=== PATIENT | male | born 1940 | race Asian ===

== ENCOUNTER 2017-03-21 08:27 | Inpatient (IN) | payer MEDICARE, OTHER ==
[~2017-03-21] VITALS: Ht 162.6 cm; Wt 61.2 kg
[2017-03-21] VITALS (7 sets, daily range): BP systolic 99–142; BP diastolic 62–96
[~2017-03-21 08:27] MED LIST: ASCORBIC ACID500 MG ORAL; ASPIR 8181 MG ORAL; ATORVASTATIN CA20 MG ORAL; CALCIUM 500+D1 EACH PO; COLACE100 MG ORAL; DONEPEZIL HCL5 M2 ORAL; FLOMAX0.4 MG ORAL; FOSAMAX70 MG ORAL; LISINOPRIL5 MG ORAL; MULTI VITAMIN1 EACH ORAL; NAMENDA10 MG ORAL; NITROGLYCERIN0.4 MG SL; NORCO 5-325 TA1 EACH ORAL; NORVASC10 MG ORAL; TYLENOL325 MG ORAL
--- NOTE | 2017-03-21 08:34 | Emergency Room Report ---
History of Present Illness General Chief Complaint: General Complaint Source: Medical Record, EMS Present Illness HPI Patient presents with decreased oral intake. He is unable to give any history to us. [facility] stays [facility] facility. Uncertain how long this has been going on. EMS denies that there is any history of fevers. The patient's had a stroke in the past. According to the medical record he has dysphagia. Admitted 01/29-02/02 DX 1. Acute encephalopathy 2/2 to sepsis 2. UTI (resolved) 3. HAP vs bronchitis (resolved) 4. Hypertension. 5. Advanced Dementia. 6. Benign prostatic hypertrophy. 7. History of falls. 8. Hx of Ventriculomegaly, possible hydrocephalus. 9. Dehydration. 10. Dyslipidemia 11. Osteoporosis 12. Hypophosphatemia 13. Chronic kidney disease 2 Allergies: Coded Allergies: No Known Allergies (Unverified , 04/30/12) Patient History Limited by: medical condition Past Medical History: see triage record, old chart reviewed Social History Narrative snf Reviewed Nursing Documentation: PMH: Agreed, PSxH: Agreed Nursing Documentation-PMH Hx Cardiac Problems: Yes Hx Hypertension: Yes Hx Pacemaker: No Hx Asthma: No Hx COPD: No Hx Diabetes: Yes Hx Cancer: No Hx Gastrointestinal Problems: Yes - DYSPHAGIA Hx Dialysis: No Hx Neurological Problems: Yes Hx Cerebrovascular Accident: Yes - dysphagia Hx Dementia: Yes Hx Alzheimer's Disease: Yes Hx Seizures: No Hx Weakness: Yes Review of Systems All Other Systems: limited Physical Exam Vital Signs Date Time Temp Pulse Resp B/P Pulse Ox O2 Delivery O2 Flow Rate FiO2 03/21/17 08:18 96.3 85 18 129/76 97 Room Air Sp02 EP Interpretation: reviewed, normal General Appearance: no apparent distress, cachetic, thin, Chronically Ill Head: normocephalic Eyes: bilateral eye PERRL, bilateral eye normal inspection ENT: dry mucus membranes Neck: supple Respiratory: lungs clear, normal breath sounds Cardiovascular #1: regular rate, rhythm Cardiovascular #2: 2+ radial (R) Gastrointestinal: normal inspection, normal bowel sounds, non tender, no mass, non-distended, other - slaps away examiner examining abdomen Musculoskeletal: back normal, gait/station normal, normal range of motion Neurologic: responsive, motor weakness Psychiatric: depressed affect Skin: normal inspection, warm/dry Medical Decision Making Diagnostic Impression: Primary Impression: Failure to thrive Qualified Codes: R62.7 - Adult failure to thrive Additional Impressions: Hypernatremia Hyperkalemia Renal insufficiency ER Course Patient presents with decreased by mouth intake. There several different possible etiologies for this. There is a history of dysphagia. Also need to exclude cardiac cause including heart attack. In addition there could be occult infection. Finally needed to be psychiatric issues of depression. Evaluation will be with EKG, laboratory, CT of the head, chest x-ray and abdominal films. The patient will receive IV hydration. EKG - no acute changes. CXR - chronic disease. Labs with hypernatremia, hyperkalemia, renal insufficiency. Potassium treated. Complicated patient. Needs further treatment in hospital. Admit med, Dr. Hodges. Laboratory Tests Test 03/21/17 08:45 03/21/17 09:50 03/21/17 10:46 03/21/17 12:45 White Blood Count 11.0 K/UL (4.8-10.8) H Red Blood Count 5.43 M/UL (4.70-6.10) Hemoglobin 15.7 G/DL (14.2-18.0) Hematocrit 51.7 % (42.0-52.0) Mean Corpuscular Volume 95 FL (80-99) Mean Corpuscular Hemoglobin 29.0 PG (27.0-31.0) Mean Corpuscular Hemoglobin Concent 30.4 G/DL (32.0-36.0) L Red Cell Distribution Width 13.6 % (11.6-14.8) Platelet Count 212 K/UL (150-450) Mean Platelet Volume 10.7 FL (6.5-10.1) H Neutrophils (%) (Auto) 59.9 % (45.0-75.0) Lymphocytes (%) (Auto) 30.2 % (20.0-45.0) Monocytes (%) (Auto) 6.8 % (1.0-10.0) Eosinophils (%) (Auto) 2.2 % (0.0-3.0) Basophils (%) (Auto) 0.9 % (0.0-2.0) Prothrombin Time 10.0 SEC (9.30-11.50) Prothrombin Time INR 1.0 (0.9-1.1) PTT 25 SEC (23-33) Sodium Level 159 mEQ/L (135-145) H 162 mEQ/L (135-145) *H Potassium Level 5.5 mEQ/L (3.4-4.9) H 4.7 mEQ/L (3.4-4.9) Chloride Level 121 mEQ/L (98-107) H 124 mEQ/L (98-107) H Carbon Dioxide Level 25 mEQ/L (20-30) 24 mEQ/L (20-30) Anion Gap 13 (5-15) 14 (5-15) Blood Urea Nitrogen 53 mg/dL (7-23) H 50 mg/dL (7-23) H Creatinine 1.6 mg/dL (0.7-1.2) H 1.5 mg/dL (0.7-1.2) H Estimate Glomerular Filtration Rate mL/min (>60) mL/min (>60) Glucose Level 120 mg/dL (74-106) H 124 mg/dL (74-106) H Calcium Level 11.0 mg/dL (8.6-10.2) H 11.1 mg/dL (8.6-10.2) H Total Bilirubin 0.4 mg/dL (0.0-1.2) 0.2 mg/dL (0.0-1.2) Aspartate Amino Transferase (AST) 18 U/L (5-40) 11 U/L (5-40) Alanine Aminotransferase (ALT) 24 U/L (3-41) 21 U/L (3-41) Alkaline Phosphatase 124 U/L (40-129) 120 U/L (40-129) Total Creatine Kinase 66 U/L (38-174) 57 U/L (38-174) Troponin I < 0.30 ng/mL (<=0.30) Pro-B-Type Natriuretic Peptide 39 pg/mL (0-125) Total Protein 8.3 g/dL (6.6-8.7) 7.8 g/dL (6.6-8.7) Albumin 3.6 g/dL (3.5-5.2) 3.5 g/dL (3.5-5.2) Globulin 4.7 g/dL 4.3 g/dL Albumin/Globulin Ratio 0.7 (1.0-2.7) L 0.8 (1.0-2.7) L Lipase 94 U/L (< 60) H Salicylates Level < 1 mg/dL (10-30) L Acetaminophen Level < 10 ug/mL (10-30) L Serum Alcohol < 10 mg/dL Urine Color Pale yellow Urine Appearance Turbid Urine pH 5 (4.5-8.0) Urine Specific [place] 1.020 (1.005-1.035) Urine Protein 3+ (NEGATIVE) H Urine Glucose (UA) Negative (NEGATIVE) Urine Ketones Negative (NEGATIVE) Urine Occult Blood 4+ (NEGATIVE) H Urine Nitrite Positive (NEGATIVE) H Urine Bilirubin Negative (NEGATIVE) Urine Urobilinogen Normal MG/DL (0.0-1.0) Urine Leukocyte Esterase 3+ (NEGATIVE) H Urine RBC 15-20 /HPF (0 - 0) H Urine WBC Tntc /HPF (0 - 0) H Urine Squamous Epithelial Cells Occasional /LPF Urine Bacteria Moderate /HPF (NONE) H Urine Mucus Few /LPF (NONE/OCC) H Urine Opiates Screen Negative (NEGATIVE) Urine Barbiturates Screen Negative (NEGATIVE) Phencyclidine (PCP) Screen Negative (NEGATIVE) Urine Amphetamines Screen Negative (NEGATIVE) Urine Benzodiazepines Screen Negative (NEGATIVE) Urine Cocaine Screen Negative (NEGATIVE) Urine Marijuana (THC) Screen Negative (NEGATIVE) Urine Osmolality Pending Plasma/Serum Osmolality Pending Free Triiodothyronine Pending Uric Acid 11.1 mg/dL (3.0-7.5) H Phosphorus Level 3.9 mg/dL (2.5-4.8) Magnesium Level 2.1 mg/dL (1.7-2.5) Free Thyroxine 1.40 ng/dL (0.86-1.85) Cortisol 25.7 ug/dL EKG Diagnostic Results Rate: normal Rhythm: NSR ST Segments: no acute changes Rhythm Strip Diag. Results EP Interpretation: yes Rhythm: NSR, no PVC's, no ectopy Chest X-Ray Diagnostic Results Chest X-Ray Diagnostic Results : Chest X-Ray Ordered: Yes # of Views/Limited/Complete: 1 View Indication: Other EP Interpretation: Yes Interpretation: no consolidation, no effusion, no pneumothorax, other - L shoulder and old scarring Impression: No acute disease Interpreting ER Provider: Electronically signed by Aaron Kumar MD Other X-Ray Diagnostic Results Other X-Ray Diagnostic Results : X-Ray ordered: abd # of Views/Limited Vs Complete: 1 View Indication: Other EP Interpretation: Yes Interpretation: nonspecific bowel gas, no sbo, other - no masses Interpreting ER Provider: Electronically signed by Aaron Kumar MD CT/MRI/US Diagnostic Results CT/MRI/US Diagnostic Results : Imaging Test Ordered: head Impression large ventricles Last Vital Signs Date Time Temp Pulse Resp B/P Pulse Ox O2 Delivery O2 Flow Rate FiO2 03/21/17 16:01 97.2 58 18 142/96 96 Room Air Status: improved Disposition: ADMITTED INPATIENT Condition: Serious Aaron Kumar M.D. Mar 21, 2017 08:33
[2017-03-21] MEDS ORDERED: CRANBERRY450 M3 PO (08:45)
[2017-03-21] MEDS ORDERED: GERI-TUSSI100 MG/5 M PO (08:45)
--- NOTE | 2017-03-21 09:07 | Diagnostic Imaging Report ---
Indication: Dyspnea Comparison: 01/28/15 A single view chest radiograph was obtained. Findings: Lungs are clear. Bones are osteopenic. Heart size is normal. There is a right shoulder prosthesis. Impression: No acute cardiopulmonary disease
--- NOTE | 2017-03-21 09:17 | Diagnostic Imaging Report ---
Indication: Altered level of consciousness Technique: Contiguous 5 mm thick transaxial imaging of the head obtained in a Siemens Sensation [address] scanner. Soft tissue and bone windows generated. Total Dose length Product (DLP): [address] Dose Index Volume (CTDIvol): 70.38 mGy Comparison: 12/17/13 Findings: The ventricles are disproportionately large compared to the degree of atrophy present which is mild. Findings appear unchanged from the last study. There is no mass effect or edema identified. There is no midline shift or evidence of acute intracranial hemorrhage. Osseous structures appear unremarkable. The paranasal sinuses and mastoids are clear. Impression: Disproportionate ventriculomegaly. Possibility of normal pressure hydrocephalus may be considered. Recommend clinical workup. No interval change The CT scanner at [facility] is accredited by the [employer] and the scans are performed using dose optimization techniques as appropriate to a performed exam including Automatic Exposure control.
[2017-03-21 09:19] LABS: BASOPHILS % (AUTO) 0.9 % (0.0-2.0); EOSINOPHILS % (AUTO) 2.2 % (0.0-3.0); LYMPHOCYTES % (AUTO) 30.2 % (20.0-45.0); MEAN CORPUSCULAR HGB CONC 30.4 G/DL (32.0-36.0); MEAN CORPUSCULAR VOLUME 95 FL (80-99); MEAN PLATELET VOLUME 10.7 FL (6.5-10.1); MONOCYTES % (AUTO) 6.8 % (1.0-10.0); NEUTROPHILS % (AUTO) 59.9 % (45.0-75.0); PLATELET COUNT 212 K/UL (150-450); RED BLOOD COUNT 5.43 M/UL (4.70-6.10); RED CELL DISTRIBUTION WIDTH 13.6 % (11.6-14.8)
[2017-03-21 09:24] LABS: ACETAMINOPHEN < 10 ug/mL (10-30); ALANINE AMINOTRANSFERASE 24 U/L (3-41); ALBUMIN/GLOBULIN RATIO 0.7 (1.0-2.7); ALCOHOL < 10 mg/dL; ANION GAP 13 (5-15); ASPARTATE AMINO TRANSFERASE 18 U/L (5-40); CARBON DIOXIDE 25 mEQ/L (20-30); CHLORIDE 121 mEQ/L (98-107); CREATININE 1.6 mg/dL (0.7-1.2); HEMOLYSIS 81; LIPASE 94 U/L (< 60); POTASSIUM 5.5 mEQ/L (3.4-4.9); SODIUM 159 mEQ/L (135-145); TOTAL PROTEIN 8.3 g/dL (6.6-8.7)
[2017-03-21 09:25] LABS: TROPONIN I < 0.30 ng/mL (<=0.30)
--- NOTE | 2017-03-21 09:29 | Diagnostic Imaging Report ---
Indication: Abdominal pain Comparison: None Single view of the abdomen obtained Findings: Bowel gas pattern is nonspecific. No mass, ectopic calcifications, or abnormal gas collections are identified. The bones are osteopenic. There is narrowing of intervertebral discs and accompanying endplate osteophyte formation. Hypertrophied facet joints also demonstrated. Impression: No acute findings
[2017-03-21] MEDS ORDERED: Sodium Polystyrene Sulfonate 15gm Powder RECTAL ONE (10:15)
[2017-03-21] MEDS ORDERED: Calcium Gluconate 1gm/10ml vial IVP ONE (10:15)
[2017-03-21 10:21] LABS: APPEARANCE,URINE TURBID; KETONES,URINE NEGATIVE (NEGATIVE); LEUKOCYTE ESTERASE ,URINE 3+ (NEGATIVE); NITRITE,URINE POSITIVE (NEGATIVE); PH,URINE 5 (4.5-8.0); PROTEIN,URINE 3+ (NEGATIVE); UROBILINOGEN,URINE NORMAL MG/DL (0.0-1.0)
[2017-03-21] MEDS ORDERED: Acetaminophen 650 MG SUPP RECTAL ONE (10:30)
[2017-03-21 10:57] LABS: RBC,URINE 15-20 /HPF (0 - 0); WBC,URINE TNTC /HPF (0 - 0)
[2017-03-21 10:58] LABS: BACTERIA,URINE MODERATE /HPF; MUCUS,URINE FEW /LPF (NONE/OCC); SQUAMOUS EPITHELIAL CELL,UR OCCASIONAL /LPF (NONE/OCC)
[2017-03-21] MEDS ORDERED: Morphine Sulfate 2mg/ml Inj IVP PRN (11:00)
[2017-03-21] MEDS ORDERED: cefTRIAXone 1 GM in NS 55 ML IVPB ONE (11:00)
[2017-03-21] MEDS ORDERED: LORazepam Inj 2mg/ml 1ml IV PRN (11:00)
[2017-03-21] MEDS ORDERED: Mylanta II UD 30ml ORAL PRN (11:00)
[2017-03-21 13:29] LABS: ALANINE AMINOTRANSFERASE 21 U/L (3-41); ALBUMIN/GLOBULIN RATIO 0.8 (1.0-2.7); ANION GAP 14 (5-15); ASPARTATE AMINO TRANSFERASE 11 U/L (5-40); CALCIUM 11.1 mg/dL (8.6-10.2); CARBON DIOXIDE 24 mEQ/L (20-30); CHLORIDE 124 mEQ/L (98-107); CREATININE 1.5 mg/dL (0.7-1.2); HEMOLYSIS 5; MAGNESIUM 2.1 mg/dL (1.7-2.5); PHOSPHORUS 3.9 mg/dL (2.5-4.8); POTASSIUM 4.7 mEQ/L (3.4-4.9); TOTAL PROTEIN 7.8 g/dL (6.6-8.7); URIC ACID 11.1 mg/dL (3.0-7.5)
[2017-03-21 13:30] LABS: SODIUM 162 mEQ/L (135-145)
[2017-03-21 13:41] LABS: CORTISOL 25.7 ug/dL
--- NOTE | 2017-03-21 13:52 | Consultation ---
History of Present Illness General Date patient seen: Mar 21, 2017 Chief Complaint: General Complaint Referring physician: dr Groves Reason for Consultation: INpatient management Present Illness HPI 76 year old patient wtih hx of CAD, CVA, Dementia presented with decreased oral intake. He is unable to give any history . Pt was diagnosed to have sepsis and UTI and admitted for further evaluation. Allergies: Coded Allergies: No Known Allergies (Unverified , 04/30/12) Medication History Scheduled Alendronate Sodium* (Fosamax*), 70 MG ORAL ONCE A WEEK, (Reported) Amlodipine Besylate (Norvasc), 5 MG ORAL DAILY, (Reported) Aspirin* (Aspir 81*), 81 MG ORAL DAILY, (Reported) Atorvastatin Calcium* (Atorvastatin Calcium*), 10 MG ORAL BEDTIME, (Reported) Cranberry Fruit Concentrate (Cranberry), 450 MG PO BID, (Reported) Docusate Sodium* (Colace*), 200 MG ORAL DAILY, (Reported) Donepezil Hcl* (Donepezil Hcl*), 5 MG ORAL DAILY, (Reported) Lisinopril (Lisinopril*), 5 MG ORAL DAILY, (Reported) Multivitamin (Multi Vitamin Daily), 1 TAB ORAL DAILY, (Reported) Tamsulosin HCl (Flomax), 0.4 MG ORAL DAILY, (Reported) Scheduled PRN Acetaminophen (Tylenol), 650 MG ORAL Q6H PRN for Fever/Headache/Mild Pain, ( Reported) Guaifenesin (Sabra-Tussin), 15 ML PO EVERY 8 HOURS PRN for For Cough, (Reported) Nitroglycerin (Nitroglycerin), 0.4 MG SL NEEDED PRN for For Pain, (Reported) Miscellaneous Medications Calcium Carbonate/Vitamin D3 (Calcium 500+D Tablet Chew), 1 EACH PO, (Reported) Discontinued Medications Ascorbic Acid* (Ascorbic Acid*), 500 MG ORAL DAILY, (Reported) Discontinued Reason: MD discontinued med Hydrocodone Bit/Acetaminophen 5-325* ([place]an[place]illity 5-325*), Unknown Dose ORAL Q4H PRN for For Pain, (Reported) Discontinued Reason: MD discontinued med Patient History Healthcare decision maker Resuscitation status Advanced Directive on File Past Medical/Surgical History Past Medical/Surgical History: (1) Alzheimer's dementia (2) HTN (hypertension) Review of Systems Constitutional: Reports: no symptoms All Other Systems: negative except mentioned in HPI Physical Exam General Appearance: WD/WN, no apparent distress Lines, tubes and drains: peripheral HEENT: normocephalic, atraumatic Neck: non-tender, normal alignment Respiratory/Chest: chest wall non-tender, lungs clear Cardiovascular/Chest: normal peripheral pulses Abdomen: normal bowel sounds, non tender Genitourinary/Rectal: normal genital exam Extremities: normal range of motion Skin Exam: normal pigmentation Last 24 Hour Vital Signs Date Time Temp Pulse Resp B/P Pulse Ox O2 Delivery O2 Flow Rate FiO2 03/21/17 13:06 95.9 81 18 99/66 100 Room Air 03/21/17 10:56 96.5 79 16 129/74 99 Room Air 03/21/17 10:45 79 16 129/74 99 Room Air 03/21/17 09:57 96.5 89 14 121/62 99 Room Air 03/21/17 08:27 97.7 86 16 126/77 98 Room Air 03/21/17 08:18 96.3 85 18 129/76 97 Room Air Laboratory Tests Test 03/21/17 08:45 03/21/17 09:50 03/21/17 10:46 03/21/17 12:45 White Blood Count 11.0 K/UL (4.8-10.8) H Red Blood Count 5.43 M/UL (4.70-6.10) Hemoglobin 15.7 G/DL (14.2-18.0) Hematocrit 51.7 % (42.0-52.0) Mean Corpuscular Volume 95 FL (80-99) Mean Corpuscular Hemoglobin 29.0 PG (27.0-31.0) Mean Corpuscular Hemoglobin Concent 30.4 G/DL (32.0-36.0) L Red Cell Distribution Width 13.6 % (11.6-14.8) Platelet Count 212 K/UL (150-450) Mean Platelet Volume 10.7 FL (6.5-10.1) H Neutrophils (%) (Auto) 59.9 % (45.0-75.0) Lymphocytes (%) (Auto) 30.2 % (20.0-45.0) Monocytes (%) (Auto) 6.8 % (1.0-10.0) Eosinophils (%) (Auto) 2.2 % (0.0-3.0) Basophils (%) (Auto) 0.9 % (0.0-2.0) Prothrombin Time 10.0 SEC (9.30-11.50) Prothromb Time International Ratio 1.0 (0.9-1.1) Activated Partial Thromboplast Time 25 SEC (23-33) Sodium Level 159 mEQ/L (135-145) H 162 mEQ/L (135-145) *H Potassium Level 5.5 mEQ/L (3.4-4.9) H 4.7 mEQ/L (3.4-4.9) Chloride Level 121 mEQ/L (98-107) H 124 mEQ/L (98-107) H Carbon Dioxide Level 25 mEQ/L (20-30) 24 mEQ/L (20-30) Anion Gap 13 (5-15) 14 (5-15) Blood Urea Nitrogen 53 mg/dL (7-23) H 50 mg/dL (7-23) H Creatinine 1.6 mg/dL (0.7-1.2) H 1.5 mg/dL (0.7-1.2) H Estimat Glomerular Filtration Rate mL/min (>60) mL/min (>60) Glucose Level 120 mg/dL (74-106) H 124 mg/dL (74-106) H Calcium Level 11.0 mg/dL (8.6-10.2) H 11.1 mg/dL (8.6-10.2) H Total Bilirubin 0.4 mg/dL (0.0-1.2) 0.2 mg/dL (0.0-1.2) Aspartate Amino Transf (AST/SGOT) 18 U/L (5-40) 11 U/L (5-40) Alanine Aminotransferase (ALT/SGPT) 24 U/L (3-41) 21 U/L (3-41) Alkaline Phosphatase 124 U/L (40-129) 120 U/L (40-129) Total Creatine Kinase 66 U/L (38-174) 57 U/L (38-174) Troponin I < 0.30 ng/mL (<=0.30) Pro-B-Type Natriuretic Peptide 39 pg/mL (0-125) Total Protein 8.3 g/dL (6.6-8.7) 7.8 g/dL (6.6-8.7) Albumin 3.6 g/dL (3.5-5.2) 3.5 g/dL (3.5-5.2) Globulin 4.7 g/dL 4.3 g/dL Albumin/Globulin Ratio 0.7 (1.0-2.7) L 0.8 (1.0-2.7) L Lipase 94 U/L (< 60) H Salicylates Level < 1 mg/dL (10-30) L Acetaminophen Level < 10 ug/mL (10-30) L Serum Alcohol < 10 mg/dL Urine Color Pale yellow Urine Appearance Turbid Urine pH 5 (4.5-8.0) Urine Specific [place] 1.020 (1.005-1.035) Urine Protein 3+ (NEGATIVE) H Urine Glucose (UA) Negative (NEGATIVE) Urine Ketones Negative (NEGATIVE) Urine Occult Blood 4+ (NEGATIVE) H Urine Nitrite Positive (NEGATIVE) H Urine Bilirubin Negative (NEGATIVE) Urine Urobilinogen Normal MG/DL (0.0-1.0) Urine Leukocyte Esterase 3+ (NEGATIVE) H Urine RBC 15-20 /HPF (0 - 0) H Urine WBC Tntc /HPF (0 - 0) H Urine Squamous Epithelial Cells Occasional /LPF Urine Bacteria Moderate /HPF (NONE) H Urine Mucus Few /LPF (NONE/OCC) H Urine Opiates Screen Negative (NEGATIVE) Urine Barbiturates Screen Negative (NEGATIVE) Phencyclidine (PCP) Screen Negative (NEGATIVE) Urine Amphetamines Screen Negative (NEGATIVE) Urine Benzodiazepines Screen Negative (NEGATIVE) Urine Cocaine Screen Negative (NEGATIVE) Urine Marijuana (THC) Screen Negative (NEGATIVE) Plasma/Serum Osmolality Pending Free Triiodothyronine Pending Uric Acid 11.1 mg/dL (3.0-7.5) H Phosphorus Level 3.9 mg/dL (2.5-4.8) Magnesium Level 2.1 mg/dL (1.7-2.5) Free Thyroxine 1.40 ng/dL (0.86-1.85) Cortisol 25.7 ug/dL Height (Feet): 5 Height (Inches): 4.00 Weight (Pounds): 135 Medications Current Medications Medications (Trade) Dose Ordered Sig/Ankush Route PRN Reason Start Time Stop Time Status Last Admin Dose Admin Acetaminophen (Tylenol) 650 mg Q4H PRN ORAL fever>100.5 03/21/17 11:00 04/20/17 10:59 Al Hydroxide/Mg Hydroxide (Mylanta II) 30 ml Q6H PRN ORAL dyspepsia 03/21/17 11:00 04/20/17 10:59 Amlodipine Besylate (Norvasc) 5 mg DAILY ORAL 03/22/17 09:00 04/21/17 08:59 Clonidine HCl (Catapres) 0.1 mg Q4H PRN ORAL SBP>160 03/21/17 11:00 04/20/17 10:59 Dextrose (Dextrose 50%) STAT PRN IV Hypoglycemia 03/21/17 11:00 04/20/17 10:59 Donepezil HCl (Aricept) 5 mg DAILY ORAL 03/22/17 09:00 04/21/17 08:59 Heparin Sodium (Porcine) (Heparin 5000 units/ml) 5,000 units EVERY 12 HOURS SUBQ 03/21/17 21:00 04/20/17 20:59 Lorazepam (Ativan 2mg/ml 1ml) 0.5 mg Q4H PRN IV For Anxiety 03/21/17 11:00 03/28/17 10:59 Morphine Sulfate (Morphine Sulfate) 1 mg Q4H PRN IVP For Pain 03/21/17 11:00 03/28/17 10:59 Ondansetron HCl (Zofran) 4 mg Q6H PRN IVP Nausea & Vomiting 03/21/17 11:00 04/20/17 10:59 Polyethylene Glycol (Miralax) 17 gm HSPRN PRN ORAL Constipation 03/21/17 21:00 04/20/17 20:59 Tamsulosin HCl (Flomax) 0.4 mg DAILY ORAL 03/22/17 09:00 04/21/17 08:59 Zolpidem Tartrate (Ambien) 5 mg HSPRN PRN ORAL Insomnia 03/21/17 21:00 04/20/17 20:59 Assessment/Plan Problem List: (1) Sepsis ICD Codes: A41.9 - Sepsis, unspecified organism SNOMED: 74826229 (2) UTI (urinary tract infection) ICD Codes: N39.0 - Urinary tract infection, site not specified SNOMED: 88957593 (3) Acute encephalopathy ICD Codes: G93.40 - Encephalopathy, unspecified SNOMED: 4099540 (4) HTN (hypertension) ICD Codes: I10 - Essential (primary) hypertension SNOMED: 76804261 (5) BPH (benign prostatic hyperplasia) ICD Codes: N40.0 - Benign prostatic hyperplasia without lower urinary tract symptoms SNOMED: 064465547, 682552247 (6) Alzheimer's dementia ICD Codes: G30.9 - Alzheimer's disease, unspecified SNOMED: 52997403 Assessment/Plan IV fulids ovalle culture broad spectrum antibiotics swallow study check labs renal studies dvt prophylaxis MIKIE BAEZ Mar 21, 2017 13:52
--- NOTE | 2017-03-21 20:30 | History and Physical Report ---
DATE OF ADMISSION: 03/21/2017 CHIEF COMPLAINT: The patient is a 76-year-old male, who presents with chief complaint of altered mental status. HISTORY OF PRESENT ILLNESS: The patient is a resident of [facility]. According to staff at [facility], the patient has had decreased oral intake. The patient himself is unable to contribute much of the history and physical. Much of the history and physical is obtained from the patient's chart. The patient presented to [facility]. He was found to have urinary tract infection. The patient is admitted for altered mental status, failure to thrive, and urinary tract infection. PAST MEDICAL HISTORY: Significant for, 1. Hypertension. 2. Benign prostatic hypertrophy. 3. Osteoporosis. 4. Ventriculomegaly. 5. Alzheimer's dementia. PAST SURGICAL HISTORY: Significant for right shoulder surgery. CURRENT MEDICATIONS: From [facility], 1. Aspirin 81 mg one tablet p.o. daily. 2. Norvasc 5 mg one tablet p.o. daily. 3. Aricept 5 mg one tablet p.o. at bedtime. 4. Lisinopril 5 mg one tablet p.o. daily. 5. Nitroglycerin 0.4 mg sublingual p.r.n. 6. Flomax 0.4 mg p.o. daily. ALLERGIES: No known drug allergies. SOCIAL HISTORY: The patient is resident of [facility]. The patient has a grown child, Ifrah Guerra. REVIEW OF SYSTEMS: Unable to assess, secondary to patient's mental status. PHYSICAL EXAMINATION: VITAL SIGNS: Temperature 97.7 degrees, respirations 16, pulse 86, and blood pressure is 126/77. GENERAL: The patient is well-developed, well-nourished, thin appearing, male, in no apparent distress. HEENT: Eyes, pupils are equal and responsive to light and accommodation. Extraocular movements are intact. NECK: Supple without lymphadenopathy. CHEST: Lungs are clear to auscultation bilaterally without wheezes or rales. CARDIOVASCULAR: Regular rhythm and rate. S1 and S2 are normal without murmurs, rubs, or gallops. ABDOMEN: Soft, nontender, and nondistended. Positive bowel sounds. No hepatosplenomegaly. Currently, no rebound or guarding noted. EXTREMITIES: No clubbing, cyanosis, or edema. RECTAL: Refused. GENITAL: Refused. NEUROLOGIC: Cranial nerves II through XII are grossly intact without focal deficits. LABORATORY STUDIES: WBC 11.0, hemoglobin 15.5, hematocrit 51.7, and platelets 212,000. Sodium 159, potassium 5.5, chloride 121, CO2 25, BUN 53, creatinine 1.6, and glucose 120. Urinalysis showed 3+ protein, 4+ occult blood, positive nitrites, and WBC too numerous to count. ASSESSMENT: This is a 76-year-old male. 1. Failure to thrive. 2. Altered mental status. 3. Urinary tract infection. 4. Hypernatremia. 5. Hypertension. 6. Benign prostatic hypertrophy. 7. Osteoporosis. 8. Alzheimer's dementia. 9. Ventriculomegaly. TREATMENT: 1. Failure to thrive. This may be secondary to urinary tract infection. The patient is currently receiving intravenous fluids. 2. Altered mental status. This is probably secondary to urinary tract infection below. 3. Urinary tract infection. A urine culture is pending. The patient has been started empirically on ceftriaxone. The urine culture and sensitivity is pending at this time. 4. Hypernatremia. This may be secondary to dehydration. The patient is currently receiving D5 W. We will follow BMP carefully daily. 5. Hypertension. The patient is currently hypotensive. We will hold antihypertensive medications as above. 6. Benign prostatic hypertrophy. Continue Flomax as above. 7. Osteoporosis. 8. Alzheimer's dementia. Continue Namenda as above. 9. Ventriculomegaly. This may be secondary to normal pressure hydrocephalus. Dano Groves M.D. DR: KATI JOB#: [id number] CC:
[2017-03-21] MEDS: Heparin 5000 units/ml inj SUBQ SCH (20:35)
[2017-03-21] MEDS ORDERED: Miralax 17gm pkt ORAL PRN (21:00)
[2017-03-21] MEDS ORDERED: Zolpidem 5mg tab ORAL PRN (21:00)
[2017-03-22 04:00] VITALS: BP 144/86
[2017-03-22 07:09] LABS: BASOPHILS % (AUTO) 0.9 % (0.0-2.0); EOSINOPHILS % (AUTO) 2.6 % (0.0-3.0); LYMPHOCYTES % (AUTO) 34.4 % (20.0-45.0); MEAN CORPUSCULAR HEMOGLOBIN 29.9 PG (27.0-31.0); MEAN CORPUSCULAR HGB CONC 31.6 G/DL (32.0-36.0); MEAN CORPUSCULAR VOLUME 95 FL (80-99); MEAN PLATELET VOLUME 10.5 FL (6.5-10.1); MONOCYTES % (AUTO) 7.9 % (1.0-10.0); NEUTROPHILS % (AUTO) 54.2 % (45.0-75.0); PLATELET COUNT 185 K/UL (150-450); RED BLOOD COUNT 4.79 M/UL (4.70-6.10); RED CELL DISTRIBUTION WIDTH 13.3 % (11.6-14.8); WHITE BLOOD COUNT 9.6 K/UL (4.8-10.8)
[2017-03-22 07:13] LABS: ALANINE AMINOTRANSFERASE 17 U/L (3-41); ALBUMIN/GLOBULIN RATIO 0.8 (1.0-2.7); ANION GAP 11 (5-15); ASPARTATE AMINO TRANSFERASE 12 U/L (5-40); CALCIUM 10.2 mg/dL (8.6-10.2); CARBON DIOXIDE 27 mEQ/L (20-30); CHLORIDE 117 mEQ/L (98-107); CHOLESTEROL 169 mg/dL (< 200); CHOLESTEROL/HDL RATIO 3.8 (3.3-4.4); CREATININE 1.4 mg/dL (0.7-1.2); HEMOLYSIS 3; LDL CHOLESTEROL (CALC.) 80 mg/dL (60-99); POTASSIUM 4.2 mEQ/L (3.4-4.9); SODIUM 155 mEQ/L (135-145); TOTAL PROTEIN 7.4 g/dL (6.6-8.7)
[2017-03-22 07:47] LABS: HEMOGLOBIN A1C 6.2 % (< 6.0)
[2017-03-22 08:20] LABS: FREE TRIIODOTHYRONINE 2.1 pg/mL (2.0-4.4)
[2017-03-22 08:22] VITALS: BP 142/82
[2017-03-22] MEDS ORDERED: Donepezil 5mg Tab ORAL SCH (09:00)
[2017-03-22] MEDS: Tamsulosin 0.4mg cap ORAL SCH (10:04)
[2017-03-22] MEDS: Heparin 5000 units/ml inj SUBQ SCH ×2 (10:06→21:02)
--- NOTE | 2017-03-22 10:31 | Diagnostic Imaging Report ---
Indication: Abnormal renal function tests Technique: Grayscale and duplex images of the kidneys, retroperitoneum, and bladder were obtained. Comparison:None Findings: Right kidney measures 8.9 cm in length. Left kidney measures 9.4 cm in length. Both kidneys demonstrate normal echogenicity. No hydronephrosis. There are bilateral renal cysts.. Normal inferior vena cava. Bladder is slightly distended, contains debris. Prostate volume calculated at 20 mL Impression: Somewhat distended bladder containing debris. This is nonspecific, could indicate cystitis, among other possibilities Negative for hydronephrosis Incidental finding bilateral renal cysts
[2017-03-22] MEDS: cefTRIAXone 1 GM in D5W 55 ML IVPB SCH (11:50)
[2017-03-22 12:00] VITALS: BP 147/98
--- NOTE | 2017-03-22 12:59 | Consultation ---
Consult Note Consult Note asked to evaluate for renal failure and electrolyte imbalances- Patient presents with decreased oral intake. He is unable to give any history to us. He says nursing home facility. Uncertain how long this has been going on. EMS denies that there is any history of fevers. The patient's had a stroke in the past. According to the medical record he has dysphagia. snf resident Hx Cardiac Problems: Yes Hx Hypertension: Yes Hx Diabetes: Yes Hx Gastrointestinal Problems: Yes - DYSPHAGIA Hx Neurological Problems: Yes Hx Cerebrovascular Accident: Yes - dysphagia Hx Dementia: Yes Hx Alzheimer's Disease: Yes Hx Weakness: Yes Patient examined data reviewed Assessment/Plan - DEHYDRATION : Leading to: Renal Failure- HyperCalcemia HyperNatremia HyperUrecemia - UTI -CVA old - DEMENTIA / OBS -DM -HTN Plan; Hydrate- monitor lytes and renal parameters Per consultants Per orders RANJITH ALLEN Mar 22, 2017 12:59
--- NOTE | 2017-03-22 13:57 | Internal Med Progress Note ---
Subjective Date of Service: Mar 22, 2017 Physician Name Dano Hammond Attending Physician Ahsan Hodges MD Current Medications Medications (Trade) Dose Ordered Sig/Ankush Route PRN Reason Start Time Stop Time Status Last Admin Dose Admin Acetaminophen (Tylenol) 650 mg Q4H PRN ORAL fever>100.5 03/21/17 11:00 04/20/17 10:59 Amlodipine Besylate (Norvasc) 5 mg DAILY ORAL 03/22/17 09:00 04/21/17 08:59 03/22/17 10:05 Aspirin (Ecotrin) 81 mg DAILY ORAL 03/23/17 09:00 04/22/17 08:59 UNV Atorvastatin Calcium (Lipitor) 10 mg BEDTIME ORAL 03/22/17 21:00 04/21/17 20:59 UNV Ceftriaxone Sodium/Dextrose (Rocephin/D5W) 55 ml @ 110 mls/hr Q24H IVPB 03/22/17 11:00 03/29/17 10:59 03/22/17 11:50 Clonidine HCl 0.1 mg 0.1 mg Q4H PRN ORAL SBP>160 03/21/17 11:00 04/20/17 10:59 Dextrose 1,000 ml @ 100 mls/hr Q10H IV 03/21/17 15:00 04/20/17 14:59 03/22/17 11:49 Dextrose (Dextrose 50%) STAT PRN IV Hypoglycemia 03/21/17 11:00 04/20/17 10:59 Docusate Sodium (Colace) 200 mg DAILY ORAL 03/23/17 09:00 04/22/17 08:59 UNV Donepezil HCl (Aricept) 5 mg QHS ORAL 03/23/17 21:00 04/22/17 20:59 UNV Heparin Sodium (Porcine) (Heparin 5000 units/ml) 5,000 units EVERY 12 HOURS SUBQ 03/21/17 21:00 04/20/17 20:59 03/22/17 10:06 Lorazepam (Ativan 2mg/ml 1ml) 0.5 mg Q4H PRN IV For Anxiety 03/21/17 11:00 03/28/17 10:59 Morphine Sulfate (Morphine Sulfate) 1 mg Q4H PRN IVP For Pain 03/21/17 11:00 03/28/17 10:59 Ondansetron HCl (Zofran) 4 mg Q6H PRN IVP Nausea & Vomiting 03/21/17 11:00 04/20/17 10:59 Pantoprazole (Protonix) 40 mg EVERY 12 HOURS IVP 03/22/17 21:00 04/21/17 20:59 UNV Polyethylene Glycol (Miralax) 17 gm HSPRN PRN ORAL Constipation 03/21/17 21:00 04/20/17 20:59 Tamsulosin HCl (Flomax) 0.4 mg DAILY ORAL 03/22/17 09:00 04/21/17 08:59 03/22/17 10:04 Zolpidem Tartrate (Ambien) 5 mg HSPRN PRN ORAL Insomnia 03/21/17 21:00 04/20/17 20:59 Allergies: Coded Allergies: No Known Allergies (Unverified , 04/30/12) ROS Limited/Unobtainable: Yes Subjective 76 YO M admitted with Failure to thrive and altered mental status. Now UTI. Cover for Int Med-Dr Hodges. Objective Last Vital Signs Date Time Temp Pulse Resp B/P Pulse Ox O2 Delivery O2 Flow Rate FiO2 03/22/17 12:00 96.4 63 18 147/98 98 Room Air General Appearance: WD/WN, no apparent distress, alert EENT: PERRL/EOMI, normal ENT inspection Neck: non-tender, normal alignment, supple Cardiovascular: normal peripheral pulses, normal rate, regular rhythm, no gallop/murmur, no JVD Respiratory/Chest: chest wall non-tender, lungs clear, normal breath sounds, no respiratory distress, no accessory muscle use Abdomen: normal bowel sounds, non tender, soft, no organomegaly, no mass Extremities: normal range of motion Neurologic: electrotyper II-XII grossly normal Skin: normal pigmentation, warm/dry Laboratory Tests Test 03/22/17 05:10 White Blood Count 9.6 K/UL (4.8-10.8) Red Blood Count 4.79 M/UL (4.70-6.10) Hemoglobin 14.3 G/DL (14.2-18.0) Hematocrit 45.3 % (42.0-52.0) Mean Corpuscular Volume 95 FL (80-99) Mean Corpuscular Hemoglobin 29.9 PG (27.0-31.0) Mean Corpuscular Hemoglobin Concent 31.6 G/DL (32.0-36.0) L Red Cell Distribution Width 13.3 % (11.6-14.8) Platelet Count 185 K/UL (150-450) Mean Platelet Volume 10.5 FL (6.5-10.1) H Neutrophils (%) (Auto) 54.2 % (45.0-75.0) Lymphocytes (%) (Auto) 34.4 % (20.0-45.0) Monocytes (%) (Auto) 7.9 % (1.0-10.0) Eosinophils (%) (Auto) 2.6 % (0.0-3.0) Basophils (%) (Auto) 0.9 % (0.0-2.0) Sodium Level 155 mEQ/L (135-145) H Potassium Level 4.2 mEQ/L (3.4-4.9) Chloride Level 117 mEQ/L (98-107) H Carbon Dioxide Level 27 mEQ/L (20-30) Anion Gap 11 (5-15) Blood Urea Nitrogen 40 mg/dL (7-23) H Creatinine 1.4 mg/dL (0.7-1.2) H Estimat Glomerular Filtration Rate mL/min (>60) Glucose Level 140 mg/dL (74-106) H Hemoglobin A1c 6.2 % (< 6.0) H Uric Acid 10.7 mg/dL (3.0-7.5) H Calcium Level 10.2 mg/dL (8.6-10.2) Total Bilirubin 0.3 mg/dL (0.0-1.2) Aspartate Amino Transf (AST/SGOT) 12 U/L (5-40) Alanine Aminotransferase (ALT/SGPT) 17 U/L (3-41) Alkaline Phosphatase 110 U/L (40-129) Total Protein 7.4 g/dL (6.6-8.7) Albumin 3.4 g/dL (3.5-5.2) L Globulin 4.0 g/dL Albumin/Globulin Ratio 0.8 (1.0-2.7) L Triglycerides Level 221 mg/dL (< 150) H Cholesterol Level 169 mg/dL (< 200) LDL Cholesterol 80 mg/dL (60-99) HDL Cholesterol 45 mg/dL (> 60) Cholesterol/HDL Ratio 3.8 (3.3-4.4) Thyroid Stimulating Hormone (TSH) 1.700 uIU/mL (0.300-4.500) Microbiology Date/Time Source Procedure Growth Status 03/21/17 09:50 Urine,Clean Catch Urine Culture - Preliminary Gram Positive Cocci Resulted 03/21/17 09:52 Rectum VRE Culture - Preliminary Resulted Intake and Output 03/21/17 03/22/17 19:00 07:00 Intake Total 1055 ml 1200 ml Output Total 20 ml Balance 1035 ml 1200 ml Intake IV Total 1055 ml 1200 ml Output Urine Total 20 ml # Voids 1 3 Assessment/Plan Problem List: (1) HTN (hypertension) Assessment & Plan: Hold antihypertensive meds due to hypotension (2) BPH (benign prostatic hyperplasia) Assessment & Plan: Continue flomax (3) Osteoporosis (4) Cerebral ventriculomegaly (5) Alzheimer's dementia (6) Failure to thrive (7) Altered mental state (8) UTI (urinary tract infection) Assessment & Plan: Gram pos cocci. Await ID and Sensitivity. Continue ceftriaxone for now. (9) Hypernatremia Assessment & Plan: see nephrology note. Cont IV fluids per nephrology Status: unchanged DANO HAMMOND Mar 22, 2017 13:57
[2017-03-22 16:00] VITALS: BP 109/68
--- NOTE | 2017-03-22 17:07 | Cardiology Report ---
APPROVED REPORT EKG Measurement Heart [id number] Normal sinus rhythm Normal ECG
--- NOTE | 2017-03-22 18:55 | Pulmonology Progress Note ---
Assessment/Plan Problems: (1) Sepsis (2) Acute encephalopathy (3) Alzheimer's dementia (4) HTN (hypertension) (5) Renal insufficiency (6) Severe sepsis Assessment/Plan IV fluids IV antibiotics swallow study check cultures dvt prophylaxis Subjective ROS Limited/Unobtainable: Yes Interval Events: confused Allergies: Coded Allergies: No Known Allergies (Unverified , 04/30/12) Objective Last 24 Hour Vital Signs Date Time Temp Pulse Resp B/P Pulse Ox O2 Delivery O2 Flow Rate FiO2 03/22/17 16:00 97.0 74 18 109/68 97 Room Air 03/22/17 12:00 96.4 63 18 147/98 98 Room Air 03/22/17 10:05 62 143/87 03/22/17 08:22 97.0 68 18 142/82 96 Room Air 03/22/17 04:00 98.2 74 18 144/86 99 Room Air 03/21/17 23:29 96.8 69 18 132/87 94 Room Air 03/21/17 20:00 76 16 107/68 97 Room Air Intake and Output 03/21/17 03/22/17 19:00 07:00 Intake Total 1055 ml 1200 ml Output Total 20 ml Balance 1035 ml 1200 ml Intake IV Total 1055 ml 1200 ml Output Urine Total 20 ml # Voids 1 3 General Appearance: cachetic HEENT: normocephalic, atraumatic Respiratory/Chest: chest wall non-tender, lungs clear Cardiovascular: normal peripheral pulses, normal rate Abdomen: normal bowel sounds, soft, non tender Genitourinary: normal external genitalia Skin: no rash Neurologic/Psychiatric: frame changer II-XII grossly normal Microbiology Date/Time Source Procedure Growth Status 03/21/17 09:50 Urine,Clean Catch Urine Culture - Preliminary Gram Positive Cocci Resulted 03/21/17 09:52 Rectum VRE Culture - Preliminary Resulted Laboratory Tests 03/22/17 05:10: White Blood Count 9.6, Red Blood Count 4.79, Hemoglobin 14.3, Hematocrit 45.3, Mean Corpuscular Volume 95, Mean Corpuscular Hemoglobin 29.9, Mean Corpuscular Hemoglobin Concent 31.6L, Red Cell Distribution Width 13.3, Platelet Count 185, Mean Platelet Volume 10.5H, Neutrophils (%) (Auto) 54.2, Lymphocytes (%) (Auto) 34.4, Monocytes (%) (Auto) 7.9, Eosinophils (%) (Auto) 2.6, Basophils (%) (Auto ) 0.9, Sodium Level 155H, Potassium Level 4.2, Chloride Level 117H, Carbon Dioxide Level 27, Anion Gap 11, Blood Urea Nitrogen 40H, Creatinine 1.4H, Estimat Glomerular Filtration Rate , Glucose Level 140H, Hemoglobin A1c 6.2H, Uric Acid 10.7H, Calcium Level 10.2, Total Bilirubin 0.3, Aspartate Amino Transf (AST/SGOT) 12, Alanine Aminotransferase (ALT/SGPT) 17, Alkaline Phosphatase 110, Total Protein 7.4, Albumin 3.4L, Globulin 4.0, Albumin/ Globulin Ratio 0.8L, Triglycerides Level 221H, Cholesterol Level 169, LDL Cholesterol 80, HDL Cholesterol 45, Cholesterol/HDL Ratio 3.8, Thyroid Stimulating Hormone (TSH) 1.700 Current Medications Medications (Trade) Dose Ordered Sig/Ankush Route PRN Reason Start Time Stop Time Status Last Admin Dose Admin Acetaminophen (Tylenol) 650 mg Q4H PRN ORAL fever>100.5 03/21/17 11:00 04/20/17 10:59 Amlodipine Besylate (Norvasc) 5 mg DAILY ORAL 03/22/17 09:00 04/21/17 08:59 03/22/17 10:05 Aspirin (Ecotrin) 81 mg DAILY ORAL 03/23/17 09:00 04/22/17 08:59 Atorvastatin Calcium (Lipitor) 10 mg BEDTIME ORAL 03/22/17 21:00 04/21/17 20:59 Ceftriaxone Sodium/Dextrose (Rocephin/D5W) 55 ml @ 110 mls/hr Q24H IVPB 03/22/17 11:00 03/29/17 10:59 03/22/17 11:50 Clonidine HCl 0.1 mg 0.1 mg Q4H PRN ORAL SBP>160 03/21/17 11:00 04/20/17 10:59 Dextrose 1,000 ml @ 100 mls/hr Q10H IV 03/21/17 15:00 04/20/17 14:59 03/22/17 11:49 Dextrose (Dextrose 50%) STAT PRN IV Hypoglycemia 03/21/17 11:00 04/20/17 10:59 Docusate Sodium (Colace) 200 mg DAILY ORAL 03/23/17 09:00 04/22/17 08:59 Donepezil HCl (Aricept) 5 mg QHS ORAL 03/23/17 21:00 04/22/17 20:59 Heparin Sodium (Porcine) (Heparin 5000 units/ml) 5,000 units EVERY 12 HOURS SUBQ 03/21/17 21:00 04/20/17 20:59 03/22/17 10:06 Lorazepam (Ativan 2mg/ml 1ml) 0.5 mg Q4H PRN IV For Anxiety 03/21/17 11:00 03/28/17 10:59 Morphine Sulfate (Morphine Sulfate) 1 mg Q4H PRN IVP For Pain 03/21/17 11:00 03/28/17 10:59 Ondansetron HCl (Zofran) 4 mg Q6H PRN IVP Nausea & Vomiting 03/21/17 11:00 04/20/17 10:59 Pantoprazole (Protonix) 40 mg EVERY 12 HOURS IVP 03/22/17 21:00 04/21/17 20:59 Polyethylene Glycol (Miralax) 17 gm HSPRN PRN ORAL Constipation 03/21/17 21:00 04/20/17 20:59 Tamsulosin HCl (Flomax) 0.4 mg DAILY ORAL 03/22/17 09:00 04/21/17 08:59 03/22/17 10:04 Zolpidem Tartrate (Ambien) 5 mg HSPRN PRN ORAL Insomnia 03/21/17 21:00 04/20/17 20:59 MIKIE BAEZ Mar 22, 2017 18:55
[2017-03-22 20:00] VITALS: BP 103/74
[2017-03-22] MEDS: Pantoprazole Inj IVP SCH (21:01)
--- NOTE | 2017-03-22 22:21 | Consultation ---
RAMOS FAY M.D. Mar 22, 2017 22:21
--- NOTE | 2017-03-22 22:55 | Consultation ---
Consult Note Consult Note [id number] RAMOS FAY M.D. Mar 22, 2017 22:55
[2017-03-23 00:07] VITALS: BP 121/69
[2017-03-23 04:29] VITALS: BP 112/77
[2017-03-23 07:05] LABS: BASOPHILS % (AUTO) 0.7 % (0.0-2.0); EOSINOPHILS % (AUTO) 2.8 % (0.0-3.0); LYMPHOCYTES % (AUTO) 33.9 % (20.0-45.0); MEAN CORPUSCULAR HEMOGLOBIN 29.3 PG (27.0-31.0); MEAN CORPUSCULAR HGB CONC 31.5 G/DL (32.0-36.0); MEAN CORPUSCULAR VOLUME 93 FL (80-99); MEAN PLATELET VOLUME 11.5 FL (6.5-10.1); MONOCYTES % (AUTO) 6.6 % (1.0-10.0); NEUTROPHILS % (AUTO) 55.9 % (45.0-75.0); PLATELET COUNT 169 K/UL (150-450); RED BLOOD COUNT 4.25 M/UL (4.70-6.10); RED CELL DISTRIBUTION WIDTH 13.1 % (11.6-14.8); WHITE BLOOD COUNT 9.5 K/UL (4.8-10.8)
[2017-03-23 07:32] LABS: CRP QUANT < 0.3 mg/dL (< 0.5); URIC ACID 9.1 mg/dL (3.0-7.5)
[2017-03-23 07:38] LABS: ALANINE AMINOTRANSFERASE 13 U/L (3-41); ALBUMIN/GLOBULIN RATIO 0.8 (1.0-2.7); ANION GAP 11 (5-15); ASPARTATE AMINO TRANSFERASE 10 U/L (5-40); CALCIUM 8.7 mg/dL (8.6-10.2); CARBON DIOXIDE 24 mEQ/L (20-30); CHLORIDE 107 mEQ/L (98-107); CREATININE 1.3 mg/dL (0.7-1.2); HEMOLYSIS 4; MAGNESIUM 1.7 mg/dL (1.7-2.5); PHOSPHORUS 3.2 mg/dL (2.5-4.8); POTASSIUM 3.5 mEQ/L (3.4-4.9); SODIUM 142 mEQ/L (135-145); TOTAL PROTEIN 6.4 g/dL (6.6-8.7)
--- NOTE | 2017-03-23 07:45 | Consultation ---
DATE OF CONSULTATION: NOTE: POOR AUDIO QUALITY REFERRING PHYSICIAN: Kya Carreno M.D. REASON FOR CONSULTATION: Evaluation of the patient for urinary tract infection and antibiotic management. HISTORY OF PRESENT ILLNESS: The patient is a 76-year-old male who is worsening mental status, urinary tract infection. Infectious Disease consultation has been requested for further evaluation of the patient's antibiotic management. PAST MEDICAL HISTORY: 1. Hypertension. 2. . 3. Dementia. 4. . MEDICATIONS: IV Rocephin. ALLERGIES: No known drug allergies. SOCIAL HISTORY: The patient lives in group home. FAMILY HISTORY: Unavailable. REVIEW OF SYSTEMS: Unobtainable. PHYSICAL EXAMINATION: VITAL SIGNS: Temperature 96 degrees, blood pressure 102/74, pulse 86, and respiratory rate 18. HEENT: Mild pale conjunctivae. No icterus. NECK: No lymphadenopathy. CHEST: Clear. HEART: S1 and S2. ABDOMEN: Soft. EXTREMITIES: No cyanosis at this time. NEUROLOGIC: Awake. LABORATORY AND DIAGNOSTIC DATA: White blood cells 11, hemoglobin 9.3, hematocrit 40, and platelets 185,000. UA too numerous to count white blood cells. BUN 40 and creatinine 1.4. ALT, AST, and alkaline phosphatase are unremarkable. Urine culture is growing gram-positive cocci more than [id number] colonies. ASSESSMENT: The patient is a 76-year-old male with multiple medical problems, who has been admitted [facility]. The patient was found to have pyuria with urine cultures growing enterococcus possible VRE. Sepsis mental status. PLAN: 1. We will continue the patient on IV Rocephin for now. 2. We will start the patient on IV Zyvox. 3. Monitor urine culture. 4. Monitor blood culture. 5. Based on the patient's clinical course and labs. 6. Based on those, we will do further recommendations. 7. I will order ultrasound of the kidneys. Thank you Dr. Carreno for allowing me to participate in the care of this patient. I will follow the patient with you during this hospitalization. Richard Davenport M.D. DR: CYNTHIA JOB#: [id number] CC:
[2017-03-23 08:20] VITALS: BP 126/75
[2017-03-23] MEDS: Aspirin EC 81mg tab ORAL SCH (08:22)
[2017-03-23] MEDS: Tamsulosin 0.4mg cap ORAL SCH (08:22)
[2017-03-23] MEDS: Docusate 100mg cap ORAL SCH (08:23)
[2017-03-23] MEDS: Pantoprazole Inj IVP SCH ×2 (08:23→20:11)
[2017-03-23] MEDS: Heparin 5000 units/ml inj SUBQ SCH ×2 (08:28→20:13)
--- NOTE | 2017-03-23 09:18 | General Progress Note ---
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 -DM -HTN Plan; Hydrate- monitor lytes and renal parameters Per consultants Per orders Subjective ROS Limited/Unobtainable: No Allergies: Coded Allergies: No Known Allergies (Unverified , 04/30/12) Objective Last 24 Hour Vital Signs Date Time Temp Pulse Resp B/P Pulse Ox O2 Delivery O2 Flow Rate FiO2 03/23/17 08:23 66 126/75 03/23/17 08:20 98.0 66 20 126/75 96 Room Air 03/23/17 04:29 97.0 59 21 112/77 99 Room Air 03/23/17 00:07 97.1 70 20 121/69 97 Room Air 03/22/17 20:00 96.1 72 21 103/74 97 Room Air 03/22/17 16:00 97.0 74 18 109/68 97 Room Air 03/22/17 12:00 96.4 63 18 147/98 98 Room Air 03/22/17 10:05 62 143/87 Intake and Output 03/22/17 03/23/17 19:00 07:00 Intake Total 1005 ml 1100 ml Output Total 600 ml Balance 1005 ml 500 ml Intake IV Total 1005 ml 1100 ml Output Urine Total 600 ml # Voids 2 Laboratory Tests 03/23/17 05:35: White Blood Count 9.5, Red Blood Count 4.25L, Hemoglobin 12.5L, Hematocrit 39.5L , Mean Corpuscular Volume 93, Mean Corpuscular Hemoglobin 29.3, Mean Corpuscular Hemoglobin Concent 31.5L, Red Cell Distribution Width 13.1, Platelet Count 169, Mean Platelet Volume 11.5H, Neutrophils (%) (Auto) 55.9, Lymphocytes (%) (Auto) 33.9, Monocytes (%) (Auto) 6.6, Eosinophils (%) (Auto) 2.8, Basophils (%) (Auto) 0.7, Sodium Level 142, Potassium Level 3.5, Chloride Level 107, Carbon Dioxide Level 24, Anion Gap 11, Blood Urea Nitrogen 25H, Creatinine 1.3H, Estimat Glomerular Filtration Rate , Glucose Level 121H, Uric Acid 9.1H, Calcium Level 8.7, Phosphorus Level 3.2, Magnesium Level 1.7, Total Bilirubin 0.3, Gamma Glutamyl Transpeptidase 37, Aspartate Amino Transf (AST/ SGOT) 10, Alanine Aminotransferase (ALT/SGPT) 13, Alkaline Phosphatase 89, Total Creatine Kinase 62, C-Reactive Protein, Quantitative < 0.3, Pro-B-Type Natriuretic Peptide 25, Total Protein 6.4L, Albumin 3.0L, Globulin 3.4, Albumin/ Globulin Ratio 0.8L Height (Feet): 5 Height (Inches): 4.00 Weight (Pounds): 135 General Appearance: no apparent distress Cardiovascular: normal rate Abdomen: soft Objective PE not changed RANJITH ALLEN Mar 23, 2017 09:18
[2017-03-23] MEDS: cefTRIAXone 1 GM in D5W 55 ML IVPB SCH (10:47)
[2017-03-23 11:16] VITALS: BP 100/60
--- NOTE | 2017-03-23 11:46 | Physician Query ---
PLEASE COMPLETE DOCUMENT BEFORE SIGNING Dear Dr. 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 Question asked do not imply a particular answer is desired/expected. Clinical Documentation States: "Altered Mental Status. This is probably secondary to urinary tract infection below." documented in Dr. Groves's History & Physical Please indicate the nature and chronicity of the condition below: [X] Metabolic Encephalopathy [] Toxic Encephalopathy [] Toxic - Metabolic Encephalopathy [] Progressive Encephalopathy [] Encephalopathy, Other [] Other: [] Not Applicable Severity [] Acute [] Chronic [X] Acute on Chronic [] Unable to determine Condition Present on Admission: [X] Yes [] No []Clinically Undeterminable Please also document in your Progress Notes and/or Discharge Summary and indicate if the condition was present on admission. Dano Groves M.D. Date & Time [facility]
--- NOTE | 2017-03-23 15:09 | Diagnostic Imaging Report ---
Indications: Abnormal renal function tests Technique: Transabdominal real-time grayscale and duplex Doppler imaging of the kidneys, retroperitoneum, and urinary bladder was performed Findings: Comparison: 03/21/17 Right kidney measures 9.4 cm in length. Normal contour, echotexture, cortical thickness. Contains 1 cm circumscribed anechoic focus interpolar cortex, small linear echogenic focus in lower pole cortical that sinus junction. No additional focal lesions, hydronephrosis, or obvious perinephric abnormalities. Left kidney measures 10.9 cm in length. Normal contour, echotexture, cortical thickness. Contains several circumscribed anechoic cortical foci up to 1.5 cm. No stones, other focal lesions, hydronephrosis, or obvious perinephric abnormalities. The intrahepatic portion of inferior vena cava is patent and normal caliber. The urinary bladder is mildly distended without obvious abnormality. Prostate volume 33 cc.. IMPRESSION: Bilateral renal cortical cysts Small non-shadowing stone, vascular calcification, or other nonspecific specular reflector lower pole right kidney Otherwise sonographically unremarkable kidneys No significant change from 2 days prior
[2017-03-23 15:33] VITALS: BP 115/76
--- NOTE | 2017-03-23 18:25 | Infectious Diseases Prog Note ---
Assessment/Plan Assessment/Plan A: The patient is a 76-year-old male w UTI UCx : CoNS AP ALOC HTN Dementia PLAN: change Ab Rx to Keflex d # 1 / Monitor blood culture Monitor BMP Monitor CBC Nephro is following Subjective Constitutional: Denies: anorexia, chills, drenching sweats, fatigue, fever, no symptoms, other Allergies: Coded Allergies: No Known Allergies (Unverified , 04/30/12) Objective Vital Signs Last 24 Hour Vital Signs Date Time Temp Pulse Resp B/P Pulse Ox O2 Delivery O2 Flow Rate FiO2 03/23/17 15:33 98.0 60 20 115/76 97 Room Air 03/23/17 11:16 98.4 63 20 100/60 99 Room Air 03/23/17 08:23 66 126/75 03/23/17 08:20 98.0 66 20 126/75 96 Room Air 03/23/17 04:29 97.0 59 21 112/77 99 Room Air 03/23/17 00:07 97.1 70 20 121/69 97 Room Air 03/22/17 20:00 96.1 72 21 103/74 97 Room Air Height (Feet): 5 Height (Inches): 4.00 Weight (Pounds): 135 HEENT: mucous membranes moist Respiratory/Chest: no respiratory distress Cardiovascular: normal rate Abdomen: normal bowel sounds Microbiology Date/Time Source Procedure Growth Status 03/21/17 09:52 Nasal Nares MRSA Culture - Final NO METHICILLIN RESISTANT STAPH AUREUS... Complete 03/21/17 09:50 Urine,Clean Catch Urine Culture - Final Staphylococcus Sp Coag Neg Complete 03/21/17 09:52 Rectum VRE Culture - Final NO VANCOMYCIN RESISTANT ENTEROCOCCUS ... Complete Laboratory Tests Test 03/23/17 05:35 White Blood Count 9.5 K/UL (4.8-10.8) Red Blood Count 4.25 M/UL (4.70-6.10) L Hemoglobin 12.5 G/DL (14.2-18.0) L Hematocrit 39.5 % (42.0-52.0) L Mean Corpuscular Volume 93 FL (80-99) Mean Corpuscular Hemoglobin 29.3 PG (27.0-31.0) Mean Corpuscular Hemoglobin Concent 31.5 G/DL (32.0-36.0) L Red Cell Distribution Width 13.1 % (11.6-14.8) Platelet Count 169 K/UL (150-450) Mean Platelet Volume 11.5 FL (6.5-10.1) H Neutrophils (%) (Auto) 55.9 % (45.0-75.0) Lymphocytes (%) (Auto) 33.9 % (20.0-45.0) Monocytes (%) (Auto) 6.6 % (1.0-10.0) Eosinophils (%) (Auto) 2.8 % (0.0-3.0) Basophils (%) (Auto) 0.7 % (0.0-2.0) Sodium Level 142 mEQ/L (135-145) Potassium Level 3.5 mEQ/L (3.4-4.9) Chloride Level 107 mEQ/L (98-107) Carbon Dioxide Level 24 mEQ/L (20-30) Anion Gap 11 (5-15) Blood Urea Nitrogen 25 mg/dL (7-23) H Creatinine 1.3 mg/dL (0.7-1.2) H Estimat Glomerular Filtration Rate mL/min (>60) Glucose Level 121 mg/dL (74-106) H Uric Acid 9.1 mg/dL (3.0-7.5) H Calcium Level 8.7 mg/dL (8.6-10.2) Phosphorus Level 3.2 mg/dL (2.5-4.8) Magnesium Level 1.7 mg/dL (1.7-2.5) Total Bilirubin 0.3 mg/dL (0.0-1.2) Gamma Glutamyl Transpeptidase 37 U/L (8-61) Aspartate Amino Transf (AST/SGOT) 10 U/L (5-40) Alanine Aminotransferase (ALT/SGPT) 13 U/L (3-41) Alkaline Phosphatase 89 U/L (40-129) Total Creatine Kinase 62 U/L (38-174) C-Reactive Protein, Quantitative < 0.3 mg/dL (< 0.5) Pro-B-Type Natriuretic Peptide 25 pg/mL (0-125) Total Protein 6.4 g/dL (6.6-8.7) L Albumin 3.0 g/dL (3.5-5.2) L Globulin 3.4 g/dL Albumin/Globulin Ratio 0.8 (1.0-2.7) L Current Medications Medications (Trade) Dose Ordered Sig/Ankush Route PRN Reason Start Time Stop Time Status Last Admin Dose Admin Acetaminophen (Tylenol) 650 mg Q4H PRN ORAL fever>100.5 03/21/17 11:00 04/20/17 10:59 Amlodipine Besylate (Norvasc) 5 mg DAILY ORAL 03/22/17 09:00 04/21/17 08:59 03/23/17 08:23 Aspirin (Ecotrin) 81 mg DAILY ORAL 03/23/17 09:00 04/22/17 08:59 03/23/17 08:22 Atorvastatin Calcium (Lipitor) 10 mg BEDTIME ORAL 03/22/17 21:00 04/21/17 20:59 03/22/17 21:01 Ceftriaxone Sodium/Dextrose (Rocephin/D5W) 55 ml @ 110 mls/hr Q24H IVPB 03/22/17 11:00 03/29/17 10:59 03/23/17 10:47 Clonidine HCl 0.1 mg 0.1 mg Q4H PRN ORAL SBP>160 03/21/17 11:00 04/20/17 10:59 Dextrose 1,000 ml @ 100 mls/hr Q10H IV 03/21/17 15:00 04/20/17 14:59 03/23/17 16:43 Dextrose (Dextrose 50%) STAT PRN IV Hypoglycemia 03/21/17 11:00 04/20/17 10:59 Docusate Sodium 200 mg 200 mg DAILY ORAL 03/23/17 09:00 04/22/17 08:59 03/23/17 08:23 Donepezil HCl (Aricept) 5 mg QHS ORAL 03/23/17 21:00 04/22/17 20:59 Heparin Sodium (Porcine) (Heparin 5000 units/ml) 5,000 units EVERY 12 HOURS SUBQ 03/21/17 21:00 04/20/17 20:59 03/23/17 08:28 Linezolid (Zyvox) 300 ml @ 300 mls/hr Q12HR IVPB 03/23/17 09:00 03/30/17 08:59 03/23/17 08:22 Lorazepam (Ativan 2mg/ml 1ml) 0.5 mg Q4H PRN IV For Anxiety 03/21/17 11:00 03/28/17 10:59 Morphine Sulfate (Morphine Sulfate) 1 mg Q4H PRN IVP For Pain 03/21/17 11:00 03/28/17 10:59 Ondansetron HCl (Zofran) 4 mg Q6H PRN IVP Nausea & Vomiting 03/21/17 11:00 04/20/17 10:59 Pantoprazole (Protonix) 40 mg EVERY 12 HOURS IVP 03/22/17 21:00 04/21/17 20:59 03/23/17 08:23 Polyethylene Glycol (Miralax) 17 gm HSPRN PRN ORAL Constipation 03/21/17 21:00 04/20/17 20:59 Tamsulosin HCl (Flomax) 0.4 mg DAILY ORAL 03/22/17 09:00 04/21/17 08:59 03/23/17 08:22 Zolpidem Tartrate (Ambien) 5 mg HSPRN PRN ORAL Insomnia 03/21/17 21:00 04/20/17 20:59 RAMOS FAY M.D. Mar 23, 2017 18:25
--- NOTE | 2017-03-23 18:29 | Pulmonology Progress Note ---
Assessment/Plan Problems: (1) Sepsis (2) Acute encephalopathy (3) Alzheimer's dementia (4) HTN (hypertension) (5) Renal insufficiency (6) Severe sepsis Assessment/Plan IV fluids IV antibiotics swallow study check cultures dvt prophylaxis swallow study noted check labs in am Subjective Constitutional: Reports: no symptoms HEENT: Repors: no symptoms Respiratory: Reports: no symptoms Allergies: Coded Allergies: No Known Allergies (Unverified , 04/30/12) Objective Last 24 Hour Vital Signs Date Time Temp Pulse Resp B/P Pulse Ox O2 Delivery O2 Flow Rate FiO2 03/23/17 15:33 98.0 60 20 115/76 97 Room Air 03/23/17 11:16 98.4 63 20 100/60 99 Room Air 03/23/17 08:23 66 126/75 03/23/17 08:20 98.0 66 20 126/75 96 Room Air 03/23/17 04:29 97.0 59 21 112/77 99 Room Air 03/23/17 00:07 97.1 70 20 121/69 97 Room Air 03/22/17 20:00 96.1 72 21 103/74 97 Room Air Intake and Output 03/22/17 03/23/17 19:00 07:00 Intake Total 1005 ml 1100 ml Output Total 600 ml Balance 1005 ml 500 ml IV Total 1005 ml 1100 ml Output Urine Total 600 ml # Voids 2 General Appearance: cachetic HEENT: normocephalic, atraumatic Respiratory/Chest: chest wall non-tender, lungs clear Cardiovascular: normal peripheral pulses, normal rate Abdomen: normal bowel sounds, soft, non tender Genitourinary: normal external genitalia Extremities: no cyanosis Skin: no rash Neurologic/Psychiatric: 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 Complete 03/21/17 09:50 Urine,Clean Catch Urine Culture - Final Staphylococcus Sp Coag Neg Complete 03/21/17 09:52 Rectum VRE Culture - Final NO VANCOMYCIN RESISTANT ENTEROCOCCUS ... Complete Laboratory Tests 03/23/17 05:35: White Blood Count 9.5, Red Blood Count 4.25L, Hemoglobin 12.5L, Hematocrit 39.5L , Mean Corpuscular Volume 93, Mean Corpuscular Hemoglobin 29.3, Mean Corpuscular Hemoglobin Concent 31.5L, Red Cell Distribution Width 13.1, Platelet Count 169, Mean Platelet Volume 11.5H, Neutrophils (%) (Auto) 55.9, Lymphocytes (%) (Auto) 33.9, Monocytes (%) (Auto) 6.6, Eosinophils (%) (Auto) 2.8, Basophils (%) (Auto) 0.7, Sodium Level 142, Potassium Level 3.5, Chloride Level 107, Carbon Dioxide Level 24, Anion Gap 11, Blood Urea Nitrogen 25H, Creatinine 1.3H, Estimat Glomerular Filtration Rate , Glucose Level 121H, Uric Acid 9.1H, Calcium Level 8.7, Phosphorus Level 3.2, Magnesium Level 1.7, Total Bilirubin 0.3, Gamma Glutamyl Transpeptidase 37, Aspartate Amino Transf (AST/ SGOT) 10, Alanine Aminotransferase (ALT/SGPT) 13, Alkaline Phosphatase 89, Total Creatine Kinase 62, C-Reactive Protein, Quantitative < 0.3, Pro-B-Type Natriuretic Peptide 25, Total Protein 6.4L, Albumin 3.0L, Globulin 3.4, Albumin/ Globulin Ratio 0.8L Current Medications Medications (Trade) Dose Ordered Sig/Ankush Route PRN Reason Start Time Stop Time Status Last Admin Dose Admin Acetaminophen (Tylenol) 650 mg Q4H PRN ORAL fever>100.5 03/21/17 11:00 04/20/17 10:59 Amlodipine Besylate (Norvasc) 5 mg DAILY ORAL 03/22/17 09:00 04/21/17 08:59 03/23/17 08:23 Aspirin (Ecotrin) 81 mg DAILY ORAL 03/23/17 09:00 04/22/17 08:59 03/23/17 08:22 Atorvastatin Calcium (Lipitor) 10 mg BEDTIME ORAL 03/22/17 21:00 04/21/17 20:59 03/22/17 21:01 Cephalexin (Keflex) 500 mg FOUR TIMES A DAY ORAL 03/23/17 21:00 03/30/17 20:59 UNV Clonidine HCl 0.1 mg 0.1 mg Q4H PRN ORAL SBP>160 03/21/17 11:00 04/20/17 10:59 Dextrose (D5W 1000ml) 1,000 ml @ 100 mls/hr Q10H IV 7/11/17 15:00 04/20/17 14:59 03/23/17 16:43 Dextrose (Dextrose 50%) STAT PRN IV Hypoglycemia 03/21/17 11:00 04/20/17 10:59 Docusate Sodium (Colace) 200 mg DAILY ORAL 03/23/17 09:00 04/22/17 08:59 03/23/17 08:23 Donepezil HCl (Aricept) 5 mg QHS ORAL 03/23/17 21:00 04/22/17 20:59 Heparin Sodium (Porcine) (Heparin 5000 units/ml) 5,000 units EVERY 12 HOURS SUBQ 03/21/17 21:00 04/20/17 20:59 03/23/17 08:28 Lorazepam (Ativan 2mg/ml 1ml) 0.5 mg Q4H PRN IV For Anxiety 03/21/17 11:00 03/28/17 10:59 Morphine Sulfate (Morphine Sulfate) 1 mg Q4H PRN IVP For Pain 03/21/17 11:00 03/28/17 10:59 Ondansetron HCl (Zofran) 4 mg Q6H PRN IVP Nausea & Vomiting 03/21/17 11:00 04/20/17 10:59 Pantoprazole (Protonix) 40 mg EVERY 12 HOURS IVP 03/22/17 21:00 04/21/17 20:59 03/23/17 08:23 Polyethylene Glycol (Miralax) 17 gm HSPRN PRN ORAL Constipation 03/21/17 21:00 04/20/17 20:59 Tamsulosin HCl (Flomax) 0.4 mg DAILY ORAL 03/22/17 09:00 04/21/17 08:59 03/23/17 08:22 Zolpidem Tartrate (Ambien) 5 mg HSPRN PRN ORAL Insomnia 03/21/17 21:00 04/20/17 20:59 MIKIE BAEZ Mar 23, 2017 18:29
[2017-03-23 20:00] VITALS: BP 116/75
[2017-03-23] MEDS: Cephalexin 500mg cap ORAL SCH (20:12)
--- NOTE | 2017-03-23 20:21 | Internal Med Progress Note ---
Subjective Date of Service: Mar 23, 2017 Physician Name Dano Hammond Attending Physician Ahsan Hodges MD Current Medications Medications (Trade) Dose Ordered Sig/Ankush Route PRN Reason Start Time Stop Time Status Last Admin Dose Admin Acetaminophen (Tylenol) 650 mg Q4H PRN ORAL fever>100.5 03/21/17 11:00 04/20/17 10:59 Amlodipine Besylate (Norvasc) 5 mg DAILY ORAL 03/22/17 09:00 04/21/17 08:59 03/23/17 08:23 Aspirin (Ecotrin) 81 mg DAILY ORAL 03/23/17 09:00 04/22/17 08:59 03/23/17 08:22 Atorvastatin Calcium (Lipitor) 10 mg BEDTIME ORAL 03/22/17 21:00 04/21/17 20:59 03/23/17 20:12 Cephalexin (Keflex) 500 mg FOUR TIMES A DAY ORAL 03/23/17 21:00 03/30/17 20:59 03/23/17 20:12 Clonidine HCl 0.1 mg 0.1 mg Q4H PRN ORAL SBP>160 03/21/17 11:00 04/20/17 10:59 Dextrose (D5W 1000ml) 1,000 ml @ 100 mls/hr Q10H IV 03/21/17 15:00 04/20/17 14:59 03/23/17 16:43 Dextrose (Dextrose 50%) STAT PRN IV Hypoglycemia 03/21/17 11:00 04/20/17 10:59 Docusate Sodium (Colace) 200 mg DAILY ORAL 03/23/17 09:00 04/22/17 08:59 03/23/17 08:23 Donepezil HCl (Aricept) 5 mg QHS ORAL 03/23/17 21:00 04/22/17 20:59 03/23/17 20:12 Heparin Sodium (Porcine) (Heparin 5000 units/ml) 5,000 units EVERY 12 HOURS SUBQ 03/21/17 21:00 04/20/17 20:59 03/23/17 20:13 Lorazepam (Ativan 2mg/ml 1ml) 0.5 mg Q4H PRN IV For Anxiety 03/21/17 11:00 03/28/17 10:59 Morphine Sulfate (Morphine Sulfate) 1 mg Q4H PRN IVP For Pain 03/21/17 11:00 03/28/17 10:59 Ondansetron HCl (Zofran) 4 mg Q6H PRN IVP Nausea & Vomiting 03/21/17 11:00 04/20/17 10:59 Pantoprazole (Protonix) 40 mg EVERY 12 HOURS IVP 03/22/17 21:00 04/21/17 20:59 03/23/17 20:11 Polyethylene Glycol (Miralax) 17 gm HSPRN PRN ORAL Constipation 03/21/17 21:00 04/20/17 20:59 Tamsulosin HCl (Flomax) 0.4 mg DAILY ORAL 03/22/17 09:00 04/21/17 08:59 03/23/17 08:22 Zolpidem Tartrate (Ambien) 5 mg HSPRN PRN ORAL Insomnia 03/21/17 21:00 04/20/17 20:59 Allergies: Coded Allergies: No Known Allergies (Unverified , 04/30/12) ROS Limited/Unobtainable: Yes Subjective 76 YO M admitted with Failure to thrive and altered mental status. Now UTI. Cover for Int Med-Dr Hodges. Objective Last Vital Signs Date Time Temp Pulse Resp B/P Pulse Ox O2 Delivery O2 Flow Rate FiO2 03/23/17 20:00 97.9 84 18 116/75 96 Room Air Laboratory Tests Test 03/23/17 05:35 White Blood Count 9.5 K/UL (4.8-10.8) Red Blood Count 4.25 M/UL (4.70-6.10) L Hemoglobin 12.5 G/DL (14.2-18.0) L Hematocrit 39.5 % (42.0-52.0) L Mean Corpuscular Volume 93 FL (80-99) Mean Corpuscular Hemoglobin 29.3 PG (27.0-31.0) Mean Corpuscular Hemoglobin Concent 31.5 G/DL (32.0-36.0) L Red Cell Distribution Width 13.1 % (11.6-14.8) Platelet Count 169 K/UL (150-450) Mean Platelet Volume 11.5 FL (6.5-10.1) H Neutrophils (%) (Auto) 55.9 % (45.0-75.0) Lymphocytes (%) (Auto) 33.9 % (20.0-45.0) Monocytes (%) (Auto) 6.6 % (1.0-10.0) Eosinophils (%) (Auto) 2.8 % (0.0-3.0) Basophils (%) (Auto) 0.7 % (0.0-2.0) Sodium Level 142 mEQ/L (135-145) Potassium Level 3.5 mEQ/L (3.4-4.9) Chloride Level 107 mEQ/L (98-107) Carbon Dioxide Level 24 mEQ/L (20-30) Anion Gap 11 (5-15) Blood Urea Nitrogen 25 mg/dL (7-23) H Creatinine 1.3 mg/dL (0.7-1.2) H Estimat Glomerular Filtration Rate mL/min (>60) Glucose Level 121 mg/dL (74-106) H Uric Acid 9.1 mg/dL (3.0-7.5) H Calcium Level 8.7 mg/dL (8.6-10.2) Phosphorus Level 3.2 mg/dL (2.5-4.8) Magnesium Level 1.7 mg/dL (1.7-2.5) Total Bilirubin 0.3 mg/dL (0.0-1.2) Gamma Glutamyl Transpeptidase 37 U/L (8-61) Aspartate Amino Transf (AST/SGOT) 10 U/L (5-40) Alanine Aminotransferase (ALT/SGPT) 13 U/L (3-41) Alkaline Phosphatase 89 U/L (40-129) Total Creatine Kinase 62 U/L (38-174) C-Reactive Protein, Quantitative < 0.3 mg/dL (< 0.5) Pro-B-Type Natriuretic Peptide 25 pg/mL (0-125) Total Protein 6.4 g/dL (6.6-8.7) L Albumin 3.0 g/dL (3.5-5.2) L Globulin 3.4 g/dL Albumin/Globulin Ratio 0.8 (1.0-2.7) L Microbiology Date/Time Source Procedure Growth Status 03/21/17 09:52 Nasal Nares MRSA Culture - Final NO METHICILLIN RESISTANT STAPH AUREUS... Complete 03/21/17 09:50 Urine,Clean Catch Urine Culture - Final Staphylococcus Sp Coag Neg Complete 03/21/17 09:52 Rectum VRE Culture - Final NO VANCOMYCIN RESISTANT ENTEROCOCCUS ... Complete Intake and Output 03/22/17 03/23/17 19:00 07:00 Intake Total 1005 ml 1100 ml Output Total 600 ml Balance 1005 ml 500 ml IV Total 1005 ml 1100 ml Output Urine Total 600 ml # Voids 2 Objective General Appearance: WD/WN, no apparent distress, alert EENT: PERRL/EOMI, normal ENT inspection Neck: non-tender, normal alignment, supple Cardiovascular: normal peripheral pulses, normal rate, regular rhythm, no gallop/murmur, no JVD Respiratory/Chest: chest wall non-tender, lungs clear, normal breath sounds, no respiratory distress, no accessory muscle use Abdomen: normal bowel sounds, non tender, soft, no organomegaly, no mass Extremities: normal range of motion 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 D/C ceftriaxone; start keflex per ID. (9) Hypernatremia Assessment & Plan: see nephrology note. Cont IV fluids per nephrology Status: progressing Assessment/Plan Discharge planning. DANO HAMMOND Mar 23, 2017 20:21
[2017-03-23] MEDS ORDERED: Donepezil 5mg Tab ORAL SCH (21:00)
[2017-03-24] VITALS: BP 124/68
[2017-03-24 04:00] VITALS: BP 115/70
[2017-03-24 06:18] LABS: BASOPHILS % (AUTO) 0.9 % (0.0-2.0); EOSINOPHILS % (AUTO) 2.5 % (0.0-3.0); LYMPHOCYTES % (AUTO) 38.1 % (20.0-45.0); MEAN CORPUSCULAR HEMOGLOBIN 29.9 PG (27.0-31.0); MEAN CORPUSCULAR HGB CONC 32.3 G/DL (32.0-36.0); MEAN CORPUSCULAR VOLUME 93 FL (80-99); MONOCYTES % (AUTO) 5.9 % (1.0-10.0); NEUTROPHILS % (AUTO) 52.7 % (45.0-75.0); PLATELET COUNT 152 K/UL (150-450); RED BLOOD COUNT 4.42 M/UL (4.70-6.10); WHITE BLOOD COUNT 7.9 K/UL (4.8-10.8)
[2017-03-24 06:42] LABS: ALANINE AMINOTRANSFERASE 11 U/L (3-41); ALBUMIN/GLOBULIN RATIO 0.8 (1.0-2.7); ANION GAP 9 (5-15); ASPARTATE AMINO TRANSFERASE 11 U/L (5-40); CALCIUM 9.1 mg/dL (8.6-10.2); CARBON DIOXIDE 27 mEQ/L (20-30); CHLORIDE 108 mEQ/L (98-107); CREATININE 1.3 mg/dL (0.7-1.2); HEMOLYSIS 4; POTASSIUM 3.3 mEQ/L (3.4-4.9); SODIUM 144 mEQ/L (135-145); TOTAL PROTEIN 6.6 g/dL (6.6-8.7)
[2017-03-24 08:00] VITALS: BP 115/74
--- NOTE | 2017-03-24 08:16 | General Progress Note ---
Assessment/Plan Status: stable - stable from renal stand Assessment/Plan - DEHYDRATION : Leading to: Renal Failure- HyperCalcemia HyperNatremia HyperUrecemia - UTI -CVA old - DEMENTIA / OBS -DM -HTN Plan; Hydrate- K supplement monitor lytes and renal parameters Per consultants Per orders ? DC Subjective ROS Limited/Unobtainable: No Constitutional: Reports: weakness Allergies: Coded Allergies: No Known Allergies (Unverified , 04/30/12) Objective Last 24 Hour Vital Signs Date Time Temp Pulse Resp B/P Pulse Ox O2 Delivery O2 Flow Rate FiO2 03/24/17 04:00 97.9 67 18 115/70 95 Room Air 03/24/17 00:00 97.2 70 18 124/68 Room Air 03/23/17 20:00 97.9 84 18 116/75 96 Room Air 03/23/17 15:33 98.0 60 20 115/76 97 Room Air 03/23/17 11:16 98.4 63 20 100/60 99 Room Air 03/23/17 08:23 66 126/75 03/23/17 08:20 98.0 66 20 126/75 96 Room Air Intake and Output 03/23/17 03/24/17 19:00 07:00 Intake Total 1810 ml 1100 ml Balance 1810 ml 1100 ml Intake Oral 600 ml IV Total 1210 ml 1100 ml # Voids 2 3 Laboratory Tests 03/24/17 05:15: White Blood Count 7.9, Red Blood Count 4.42L, Hemoglobin 13.2L, Hematocrit 40.9L , Mean Corpuscular Volume 93, Mean Corpuscular Hemoglobin 29.9, Mean Corpuscular Hemoglobin Concent 32.3, Red Cell Distribution Width 13.0, Platelet Count 152, Mean Platelet Volume 10.0, Neutrophils (%) (Auto) 52.7, Lymphocytes ( %) (Auto) 38.1, Monocytes (%) (Auto) 5.9, Eosinophils (%) (Auto) 2.5, Basophils (%) (Auto) 0.9, Sodium Level 144, Potassium Level 3.3L, Chloride Level 108H, Carbon Dioxide Level 27, Anion Gap 9, Blood Urea Nitrogen 16, Creatinine 1.3H, Estimat Glomerular Filtration Rate , Glucose Level 125H, Calcium Level 9.1, Total Bilirubin 0.3, Aspartate Amino Transf (AST/SGOT) 11, Alanine Aminotransferase (ALT/SGPT) 11, Alkaline Phosphatase 94, Pro-B-Type Natriuretic Peptide 50, Total Protein 6.6, Albumin 3.0L, Globulin 3.6, Albumin/Globulin Ratio 0.8L Height (Feet): 5 Height (Inches): 4.00 Weight (Pounds): 135 General Appearance: no apparent distress Objective PE not changed RANJITH ALLEN Mar 24, 2017 08:16
--- NOTE | 2017-03-24 08:22 | Pulmonology Progress Note ---
Assessment/Plan Assessment/Plan ASSESSMENT sepsis UTI with SCON acute encephalopathy HTN electrolyte imbalance : hyper Na, hyper Ca, hypo K renal failure Alzheimer dementia hx of CVA dysphagia aspiration risk BPH HTN PLAN OF CARE MS floor s/p IVF abx ID follows urine cx +SCON , blood cx preliminary negative O2 HHN prn CXR no acute cardiopulmonary disease nephro follows renal US negative: no hydro, normal echogenicity bilateral kidneys Ca and Na down to normal replace K , check K and Mg in am creat trending down CT head with disproportional ventriculomegaly, possible NPH continue ASA, statin on Aricept swallow eval with evidence of dysphagia and risk for silent aspiration diet per quality of life with strict aspiration precautions VSS pending PT/OT BP management with CCB and optimize as needed DVT, GI prophylaxis continue Flomax bowel regimen case discussed and evaluated by supervising physician Subjective Allergies: Coded Allergies: No Known Allergies (Unverified , 04/30/12) Subjective afebrile, leukocytosis resolved no signs of respiratory distress creat trending down K-3.3 Objective Last 24 Hour Vital Signs Date Time Temp Pulse Resp B/P Pulse Ox O2 Delivery O2 Flow Rate FiO2 03/24/17 04:00 97.9 67 18 115/70 95 Room Air 03/24/17 00:00 97.2 70 18 124/68 Room Air 03/23/17 20:00 97.9 84 18 116/75 96 Room Air 03/23/17 15:33 98.0 60 20 115/76 97 Room Air 03/23/17 11:16 98.4 63 20 100/60 99 Room Air 03/23/17 08:23 66 126/75 Intake and Output 03/23/17 03/24/17 19:00 07:00 Intake Total 1810 ml 1100 ml Balance 1810 ml 1100 ml Intake Oral 600 ml IV Total 1210 ml 1100 ml # Voids 2 3 General Appearance: other - awake, confused Nepali speaking amle in NAD HEENT: normocephalic, atraumatic, anicteric Respiratory/Chest: lungs clear, no respiratory distress, no accessory muscle use Cardiovascular: normal rate, regular rhythm, no JVD Abdomen: normal bowel sounds, soft, non tender, non distended Extremities: no edema, pedal pulses normal Neurologic/Psychiatric: abnormal gait, alert Musculoskeletal: atrophy - BLE Microbiology Date/Time Source Procedure Growth Status 03/22/17 23:50 Blood Blood Culture - Preliminary NO GROWTH AFTER 24 HOURS Resulted 03/22/17 23:45 Blood Blood Culture - Preliminary NO GROWTH AFTER 24 HOURS Resulted 03/21/17 09:52 Nasal Nares MRSA Culture - Final NO METHICILLIN RESISTANT STAPH AUREUS... Complete 03/21/17 09:50 Urine,Clean Catch Urine Culture - Final Staphylococcus Sp Coag Neg Complete 03/21/17 09:52 Rectum VRE Culture - Final NO VANCOMYCIN RESISTANT ENTEROCOCCUS ... Complete Laboratory Tests 03/24/17 05:15: White Blood Count 7.9, Red Blood Count 4.42L, Hemoglobin 13.2L, Hematocrit 40.9L , Mean Corpuscular Volume 93, Mean Corpuscular Hemoglobin 29.9, Mean Corpuscular Hemoglobin Concent 32.3, Red Cell Distribution Width 13.0, Platelet Count 152, Mean Platelet Volume 10.0, Neutrophils (%) (Auto) 52.7, Lymphocytes ( %) (Auto) 38.1, Monocytes (%) (Auto) 5.9, Eosinophils (%) (Auto) 2.5, Basophils (%) (Auto) 0.9, Sodium Level 144, Potassium Level 3.3L, Chloride Level 108H, Carbon Dioxide Level 27, Anion Gap 9, Blood Urea Nitrogen 16, Creatinine 1.3H, Estimat Glomerular Filtration Rate , Glucose Level 125H, Calcium Level 9.1, Total Bilirubin 0.3, Aspartate Amino Transf (AST/SGOT) 11, Alanine Aminotransferase (ALT/SGPT) 11, Alkaline Phosphatase 94, Pro-B-Type Natriuretic Peptide 50, Total Protein 6.6, Albumin 3.0L, Globulin 3.6, Albumin/Globulin Ratio 0.8L Current Medications Medications (Trade) Dose Ordered Sig/Ankush Route PRN Reason Start Time Stop Time Status Last Admin Dose Admin Acetaminophen (Tylenol) 650 mg Q4H PRN ORAL fever>100.5 03/21/17 11:00 04/20/17 10:59 Allopurinol (Allopurinol) 300 mg DAILY ORAL 03/24/17 09:00 04/23/17 08:59 UNV Amlodipine Besylate (Norvasc) 5 mg DAILY ORAL 03/22/17 09:00 04/21/17 08:59 03/23/17 08:23 Aspirin (Ecotrin) 81 mg DAILY ORAL 03/23/17 09:00 8/12/17 08:59 03/23/17 08:22 Atorvastatin Calcium (Lipitor) 10 mg BEDTIME ORAL 03/22/17 21:00 04/21/17 20:59 03/23/17 20:12 Cephalexin (Keflex) 500 mg FOUR TIMES A DAY ORAL 03/23/17 21:00 03/30/17 20:59 03/23/17 20:12 Clonidine HCl (Catapres) 0.1 mg Q4H PRN ORAL SBP>160 03/21/17 11:00 04/20/17 10:59 Dextrose (Dextrose 50%) STAT PRN IV Hypoglycemia 03/21/17 11:00 04/20/17 10:59 Docusate Sodium (Colace) 200 mg DAILY ORAL 03/23/17 09:00 04/22/17 08:59 03/23/17 08:23 Donepezil HCl (Aricept) 5 mg QHS ORAL 03/23/17 21:00 04/22/17 20:59 03/23/17 20:12 Heparin Sodium (Porcine) (Heparin 5000 units/ml) 5,000 units EVERY 12 HOURS SUBQ 03/21/17 21:00 04/20/17 20:59 03/23/17 20:13 Ondansetron HCl (Zofran) 4 mg Q6H PRN IVP Nausea & Vomiting 03/21/17 11:00 04/20/17 10:59 Pantoprazole (Protonix) 40 mg EVERY 12 HOURS ORAL 03/24/17 09:00 04/23/17 08:59 UNV Polyethylene Glycol (Miralax) 17 gm HSPRN PRN ORAL Constipation 03/21/17 21:00 04/20/17 20:59 Potassium Chloride (KCl 10% 40mEq Oral solution) 40 meq ONCE ONCE NG 03/24/17 08:15 03/24/17 08:16 UNV Tamsulosin HCl (Flomax) 0.4 mg DAILY ORAL 03/22/17 09:00 04/21/17 08:59 03/23/17 08:22 Zolpidem Tartrate (Ambien) 5 mg HSPRN PRN ORAL Insomnia 03/21/17 21:00 04/20/17 20:59 03/24/17 01:28 Yari Baugh (Vanchtein) COMMUTATOR [employer] Mar 24, 2017 08:22
--- NOTE | 2017-03-24 08:51 | Infectious Diseases Prog Note ---
Assessment/Plan Assessment/Plan ASSESSMENT: 76-year-old male with: UTI - UCx : CoNS Leukocytosis, mild - resolved, afebrile SP ALOC HTN Dementia CKD3 NKDA Full Code PLAN: continue Keflex d # 2 / 7 Monitor blood culture Monitor BMP Monitor CBC Subjective Allergies: Coded Allergies: No Known Allergies (Unverified , 04/30/12) Subjective remains afebrile without leukocytosis Objective Vital Signs Last 24 Hour Vital Signs Date Time Temp Pulse Resp B/P Pulse Ox O2 Delivery O2 Flow Rate FiO2 03/24/17 08:00 97.0 61 19 115/74 97 Room Air 03/24/17 04:00 97.9 67 18 115/70 95 Room Air 03/24/17 00:00 97.2 70 18 124/68 Room Air 03/23/17 20:00 97.9 84 18 116/75 96 Room Air 03/23/17 15:33 98.0 60 20 115/76 97 Room Air 03/23/17 11:16 98.4 63 20 100/60 99 Room Air Height (Feet): 5 Height (Inches): 4.00 Weight (Pounds): 135 General Appearance: no acute distress Respiratory/Chest: no respiratory distress Cardiovascular: normal rate, regular rhythm Abdomen: normal bowel sounds, soft, non tender, non distended Microbiology Date/Time Source Procedure Growth Status 03/22/17 23:50 Blood Blood Culture - Preliminary NO GROWTH AFTER 24 HOURS Resulted 03/22/17 23:45 Blood Blood Culture - Preliminary NO GROWTH AFTER 24 HOURS Resulted 03/21/17 09:52 Nasal Nares MRSA Culture - Final NO METHICILLIN RESISTANT STAPH AUREUS... Complete 03/21/17 09:50 Urine,Clean Catch Urine Culture - Final Staphylococcus Sp Coag Neg Complete 03/21/17 09:52 Rectum VRE Culture - Final NO VANCOMYCIN RESISTANT ENTEROCOCCUS ... Complete Laboratory Tests Test 03/24/17 05:15 White Blood Count 7.9 K/UL (4.8-10.8) Red Blood Count 4.42 M/UL (4.70-6.10) L Hemoglobin 13.2 G/DL (14.2-18.0) L Hematocrit 40.9 % (42.0-52.0) L Mean Corpuscular Volume 93 FL (80-99) Mean Corpuscular Hemoglobin 29.9 PG (27.0-31.0) Mean Corpuscular Hemoglobin Concent 32.3 G/DL (32.0-36.0) Red Cell Distribution Width 13.0 % (11.6-14.8) Platelet Count 152 K/UL (150-450) Mean Platelet Volume 10.0 FL (6.5-10.1) Neutrophils (%) (Auto) 52.7 % (45.0-75.0) Lymphocytes (%) (Auto) 38.1 % (20.0-45.0) Monocytes (%) (Auto) 5.9 % (1.0-10.0) Eosinophils (%) (Auto) 2.5 % (0.0-3.0) Basophils (%) (Auto) 0.9 % (0.0-2.0) Sodium Level 144 mEQ/L (135-145) Potassium Level 3.3 mEQ/L (3.4-4.9) L Chloride Level 108 mEQ/L (98-107) H Carbon Dioxide Level 27 mEQ/L (20-30) Anion Gap 9 (5-15) Blood Urea Nitrogen 16 mg/dL (7-23) Creatinine 1.3 mg/dL (0.7-1.2) H Estimat Glomerular Filtration Rate mL/min (>60) Glucose Level 125 mg/dL (74-106) H Calcium Level 9.1 mg/dL (8.6-10.2) Total Bilirubin 0.3 mg/dL (0.0-1.2) Aspartate Amino Transf (AST/SGOT) 11 U/L (5-40) Alanine Aminotransferase (ALT/SGPT) 11 U/L (3-41) Alkaline Phosphatase 94 U/L (40-129) Pro-B-Type Natriuretic Peptide 50 pg/mL (0-125) Total Protein 6.6 g/dL (6.6-8.7) Albumin 3.0 g/dL (3.5-5.2) L Globulin 3.6 g/dL Albumin/Globulin Ratio 0.8 (1.0-2.7) L Current Medications Medications (Trade) Dose Ordered Sig/Ankush Route PRN Reason Start Time Stop Time Status Last Admin Dose Admin Acetaminophen (Tylenol) 650 mg Q4H PRN ORAL fever>100.5 03/21/17 11:00 04/20/17 10:59 Allopurinol (Allopurinol) 300 mg DAILY ORAL 03/24/17 09:00 04/23/17 08:59 UNV Amlodipine Besylate (Norvasc) 5 mg DAILY ORAL 03/22/17 09:00 04/21/17 08:59 03/23/17 08:23 Aspirin (Ecotrin) 81 mg DAILY ORAL 03/23/17 09:00 04/22/17 08:59 03/23/17 08:22 Atorvastatin Calcium (Lipitor) 10 mg BEDTIME ORAL 03/22/17 21:00 04/21/17 20:59 03/23/17 20:12 Cephalexin (Keflex) 500 mg FOUR TIMES A DAY ORAL 03/23/17 21:00 03/30/17 20:59 03/23/17 20:12 Clonidine HCl (Catapres) 0.1 mg Q4H PRN ORAL SBP>160 03/21/17 11:00 04/20/17 10:59 Dextrose (Dextrose 50%) STAT PRN IV Hypoglycemia 03/21/17 11:00 04/20/17 10:59 Docusate Sodium (Colace) 200 mg DAILY ORAL 03/23/17 09:00 04/22/17 08:59 03/23/17 08:23 Donepezil HCl (Aricept) 5 mg QHS ORAL 03/23/17 21:00 04/22/17 20:59 03/23/17 20:12 Heparin Sodium (Porcine) (Heparin 5000 units/ml) 5,000 units EVERY 12 HOURS SUBQ 03/21/17 21:00 04/20/17 20:59 03/23/17 20:13 Ondansetron HCl (Zofran) 4 mg Q6H PRN IVP Nausea & Vomiting 03/21/17 11:00 04/20/17 10:59 Pantoprazole (Protonix) 40 mg EVERY 12 HOURS ORAL 03/24/17 09:00 04/23/17 08:59 UNV Polyethylene Glycol (Miralax) 17 gm HSPRN PRN ORAL Constipation 03/21/17 21:00 04/20/17 20:59 Potassium Chloride (KCl 10% 40mEq Oral solution) 40 meq ONCE ONCE NG 03/24/17 08:15 03/24/17 08:16 UNV Tamsulosin HCl (Flomax) 0.4 mg DAILY ORAL 03/22/17 09:00 04/21/17 08:59 03/23/17 08:22 Zolpidem Tartrate (Ambien) 5 mg HSPRN PRN ORAL Insomnia 03/21/17 21:00 04/20/17 20:59 03/24/17 01:28 JOSE WELLS Mar 24, 2017 08:51
[2017-03-24] MEDS ORDERED: KCl 10% 40mEq/30ml liquid NG ONE (09:00)
[2017-03-24] MEDS: Cephalexin 500mg cap ORAL SCH ×3 (09:13→17:58)
[2017-03-24] MEDS: Aspirin EC 81mg tab ORAL SCH (09:13)
[2017-03-24] MEDS: Docusate 100mg cap ORAL SCH (09:13)
[2017-03-24] MEDS: Heparin 5000 units/ml inj SUBQ SCH (09:17)
[2017-03-24] MEDS: Tamsulosin 0.4mg cap ORAL SCH (09:20)
[2017-03-24] MEDS ORDERED: Morphine Sulfate 2mg/ml Inj IVP PRN (10:45)
[2017-03-24] MEDS ORDERED: LORazepam Inj 2mg/ml 1ml IV PRN (10:45)
--- NOTE | 2017-03-24 10:45 | Diagnostic Imaging Report ---
Indication: DYSPNEA Technique: One view of the chest Comparison: 03/21/2017 Findings: Right shoulder prosthesis is again demonstrated. The lungs and pleural spaces remain clear. The heart size is normal. Aorta is tortuous. Degenerative changes of the left shoulder are again noted. No significant change Impression: No acute process
[2017-03-24 12:00] VITALS: BP 137/91
[2017-03-24] MEDS ORDERED: KEFLEX500 M1 ORAL (15:19)
[2017-03-24 16:00] VITALS: BP 109/77
--- NOTE | 2017-03-24 16:11 | Discharge Summary ---
Discharge Summary Hospital Course Date of Admission Mar 21, 2017 at 09:30 Date of Discharge Admitting Diagnosis failure to thrive HELENA Saha is a 76 year old male who was admitted on Mar 21, 2017 at 09:30 for Failure To Thrive Hospital Course Last 24 Hour Vital Signs Date Time Temp Pulse Resp B/P Pulse Ox O2 Delivery O2 Flow Rate FiO2 03/24/17 12:00 97.2 61 18 137/91 98 Room Air 03/24/17 09:13 61 115/74 03/24/17 08:00 97.0 61 19 115/74 97 Room Air 03/24/17 04:00 97.9 67 18 115/70 95 Room Air 03/24/17 00:00 97.2 70 18 124/68 Room Air 03/23/17 20:00 97.9 84 18 116/75 96 Room Air Physical Exam Daughter at bedside General: No acute distress, awake and demented. HEENT: NCAT, sclera anicteric, PERRL, EOMI. Neck: Supple, no significant jugular venous distention, Lungs: Good inspiratory effort, clear to auscultation bilaterally, no Wheeze or Rales. Heart: Regular rate and rhythm, normal S1/S2, no murmurs/gallops Abdomen: soft, nontender, nondistended. Normoactive bowel sounds. / Rectal: Refused and deferred. Extremities: No Cyanosis , clubbing or edema. Neuro: A&O x 3, Able to move all extremities Skin: warm, no rashes or lesions Psych: Normal mood and affect Plan : DC to SNF Discharge Discharge Disposition Patient was discharged to SNF/Subacute Facility(03) Discharge Diagnoses: Ahsan Hodges MD Mar 24, 2017 16:11
[2017-03-24] MEDS ORDERED: Tubing IV Secondary IV ONE (20:59)
[2017-03-24] MEDS ORDERED: NS 275ml ONE (20:59)
--- NOTE | 2017-03-25 15:45 | Discharge Summary ---
DATE OF ADMISSION: 03/21/2017 DATE OF DISCHARGE: 03/24/2017 BRIEF HISTORY AND HOSPITAL COURSE: This is a 76-year-old very delightful gentleman with past medical history significant for hypertension, BPH, and severe Alzheimer's dementia with ventriculomegaly, and osteoporosis, who presented to the hospital from after was noted to have fever and altered mental status more than usual. Shortly after initial evaluation, the patient was admitted to the hospital with failure to thrive as well as sepsis, possible urinary tract infection as well as dehydration. Throughout the hospital course, the patient was followed by Dr. Davenport from Infectious Disease, Dr. Tino Connors from Nephrology, and Dr. Carreno from Pulmonary and Critical Care. The patient had a septic workup done. Broad-spectrum antibiotics were started. Urinalysis was noted for a Streptococcus-coagulase negative and antibiotic was switched to Keflex and the patient's status improved and discharged back to the nursing facility to be followed as an outpatient. FINAL DIAGNOSES: 1. Altered mental status with metabolic encephalopathy, most likely secondary to infection and dehydration. 2. Hypertension. 3. Alzheimer's dementia. 4. Chronic kidney disease, stage 3. 5. Benign prostatic hypertrophy. 6. Osteoporosis. 7. Cerebral ventriculomegaly. 8. Hypernatremia. MEDICATIONS ON DISCHARGE: Continue discharge medication list. ACTIVITY: As tolerated. DIET: Cardiac diet. FOLLOWUP: The patient will be transferred to the nursing facility via ambulance. Ahsan Hodges M.D. DR: Shalonda JOB#: [id number] CC:
== END 2017-03-24 21:00 | DRG 689 ==
LOC: EDBD 08:27 → EMR 08:38 → 4W 09:30 → EDBEDREQ 10:50
DX: N39.0 Urinary tract infection, site not specified (principal); G93.41 Metabolic encephalopathy; E87.0 Hyperosmolality and hypernatremia; G93.89 Other specified disorders of brain; R62.7 Adult failure to thrive; R13.10 Dysphagia, unspecified; E83.52 Hypercalcemia; F02.80 Dementia in other diseases classified elsewhere, unspecified severity, without behavioral disturbance, psychotic disturbance, mood disturbance, and anxiety; N40.0 Benign prostatic hyperplasia without lower urinary tract symptoms; M81.0 Age-related osteoporosis without current pathological fracture; I12.9 Hypertensive chronic kidney disease with stage 1 through stage 4 chronic kidney disease, or unspecified chronic kidney disease; N18.3 Chronic kidney disease, stage 3 (moderate); Z86.73 Personal history of transient ischemic attack (TIA), and cerebral infarction without residual deficits; G30.9 Alzheimer's disease, unspecified; E87.6 Hypokalemia; I25.10 Atherosclerotic heart disease of native coronary artery without angina pectoris
CPT/HCPCS: 36415; 70450; 71010; 74000; 74230; 76775; 80053; 80061; 80300; 80329; 81003; 82533; 82550; 82962; 82977; 83036; 83690; 83735; 83880; 83930; 83935; 84100; 84439; 84443; 84481; 84484; 84550; 85025; 85610; 85730; 86140; 87040; 87081; 87086; 87181; 93005

== ENCOUNTER 2020-05-20 13:55 | Inpatient (IN) | payer MEDICARE, OTHER ==
[~2020-05-20] VITALS: Ht 165.1 cm; Wt 68.4 kg
[~2020-05-20 13:55] MED LIST changes: +CRANBERRY450 M3 PO; +GERI-TUSSI100 MG/5 M PO; +KEFLEX500 M1 ORAL
[2020-05-20] MEDS ORDERED: ARICEPT10 MG ORAL (14:06)
[2020-05-20] MEDS ORDERED: FUROSEMIDE20 M1 ORAL (14:06)
[2020-05-20] MEDS ORDERED: Azithromycin 500 MG in NS 275 ML IV ONE (14:15)
[2020-05-20] MEDS ORDERED: cefTRIAXone 2 GM in NS 110 ML IV ONE (14:15)
[2020-05-20 14:35] VITALS: BP 158/95
--- NOTE | 2020-05-20 14:36 | NUR ---
ED Nurse Note: alfredo GARRETT from [facility] for a fever onset today. per [facility] facility, they medicated him at 0100 today, presents to [facility] afebrile. pt is on 2L O2 NC, non respnsive to his name, responsive to touch and pain. alert but not oriented. pt has a cough, it is unk if the cough is chronic or acute. pt appears to have a pressure ulcer to the R and L buttocks. no acute distress is noted at this time Addendum: 05/20/20 at 1529 by QLE pt has a low grade fever of 99.9 on triage
--- NOTE | 2020-05-20 14:50 | NUR ---
ED Nurse Note: pt's entire R hand appears to br bruised, unk source. skin is intact but purple and yellow. pt still able to move hand and fingers, cap refill <3 seconds
[2020-05-20 14:54] LABS: ANION GAP 10 mmol/L (5-15); BLOOD UREA NITROGEN 20 mg/dL (7-18); CALCIUM 8.5 MG/DL (8.5-10.1); CARBON DIOXIDE 25 MMOL/L (21-32); CHLORIDE 104 MMOL/L (98-107); CREATININE 1.2 MG/DL (0.55-1.30); SODIUM 139 MMOL/L (136-145)
--- NOTE | 2020-05-20 15:00 | NUR ---
ED Nurse Note: RT suctioned about 7 mL of sputum from pt's mouth, blood work and COVID specimen sent to lab
[2020-05-20 15:04] LABS: ALANINE AMINOTRANSFERASE 27 U/L (12-78); ALBUMIN 2.7 G/DL (3.4-5.0); ALBUMIN/GLOBULIN RATIO 0.6 (1.0-2.7); ALKALINE PHOSPHATASE 108 U/L (46-116); ASPARTATE AMINO TRANSFERASE 31 U/L (15-37); BILIRUBIN,TOTAL 0.3 MG/DL (0.2-1.0); PHOSPHORUS 3.2 MG/DL (2.5-4.9)
--- NOTE | 2020-05-20 15:14 | Emergency Room Report ---
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 History is limited secondary to patient's clinical status According to EMS, SNF nurses told them that patient has been febrile for the past 2 days. T-max 99. He is also been having a dry cough. Last Tylenol given was at 10 AM. Accu-Chek was within normal limits. Patient is full code. PMD is Dr. Lake The patient's symptoms were gradual onset, severity was moderate, duration since 2 days. Quality: Short of breath Past medical history: COPD, CVA, aphasia, hypertension, also his disease, dyslipidemia, BPH Past surgical history: Unable to obtain Smoking: Denies Alcohol use: Denies Drug use: Denies Review of systems: CONST: ++ fevers or chills, No night sweats PULMONARY: ++ cough, ++ shortness of breath CARDIAC: No chest pain, No palpitations GI: No vomiting, No diarrhea , No melena_or_BRBPR : No dysuria, No hematuria, No discharge NEURO: No new_focal_weakness_or_numbness, No confusion, No vision changes 14 point Review of Systems is otherwise negative except per HPI Physical Exam: GENERAL: Awake, chronically ill-appearing, no acute distress. Hypoxic on room air EYES: Pupils reactive. Conjunctiva clear. Aphasic ENT: External nose and ear appear normal. Oropharynx clear. Head atraumatic. NECK: No thyromegaly. No midline tenderness. LUNGS: Normal respiratory effort. Coarse breath sounds bilaterally. No subcostal retractions. No wheezing. No rales CARDIAC: Regular rate and rhythm. Normal radial pulses bilaterally. No significant pedal edema. ABDOMEN: Soft, nontender, and nondistended. No rebound/guarding. No hepatosplenomegaly. In soiled diaper MSK: Poor muscle tone, contractures with rigidity in extremities. Extremities without asymmetric deformity or swelling. NEUROLOGIC: Awake. Protecting airway. Withdraws to pain in extremities, groans and opens eyes to sternal rub. SKIN: Warm and dry. No cyanosis or urticaria present. - COORDINATION OF CARE Case was discussed with: Patient , Patient's Physician Any labs and imaging that were ordered were interpreted as part of the medical decision making: Medical Decision Making/Plan: Differential includes pneumonia, bronchitis, CHF, pulmonary edema, pulmonary embolism, pleural effusion among others. Symptoms are not likely to be pulmonary embolism, patient no significant PE risk factors, and has more likely alternate cause of symptoms. CXR shows multifocal pneumonia. Seems to be consistent with pneumonia, rather than CHF. Labs show positive COVID. ABG does not show severe hypoxemia, however patient is hypoxic on room air at the bedside. He has been placed on supplemental oxygen Presentation not consistent with ischemia / ACS. EKG shows normal sinus rhythm. There are T wave inversions in V2, V3, V4, V5, and V6.. Based on the patients PSI/PORT score, has high enough mortality risk that inpatient admission for IV antibiotics and clinical observation is most appropriate. Patient given Ceftriaxone / Azithromycin / decadron. Due to concern for COVID, patient was kept euvolemic. - CRITICAL CARE TIME - I spent 60minutes of critical care time. This time excludes any separately billable procedures. Organ systems at risk include: Pulmonary / respiratory Treatments/Evaluations: Emergent and rapid respiratory assessment and management with continuous monitoring. Advanced airway equipment at the ready, while the patient's respiratory symptoms were stabilized. Given the patients presentation with pneumonia with hypoxic respiratory failure , there existed the potential for imminent deterioration in the patient's condition due to respiratory compromise. Organ systems at risk for failure without immediate intervention include pulmonary / respiratory. This time was spent reviewing the patients records, reviewing vital signs, reassessing the patients clinical status, discussing the case and care with staff and consultants, and performing high-complexity medical decision making. I considered the possibility of Bipap vs intubation , but at this time the patient is protecting their airway and maintaining their saturation on supplemental oxygen so will defer intubation at this time, although they will be closely monitored for any further deterioration. I spoke with Dr. Winkler, and reviewed the patients presentation, workup, results, and treatment. They will admit the patient for further care and evaluation, and assume care of the patient at this time. Allergies: Coded Allergies: No Known Allergies (Unverified , 04/30/12) COVID-19 Screening Contact w/high risk pt: No Experienced COVID-19 symptoms?: Yes COVID-19 Testing performed JAWBONE PULLER: No COVID-19 Screening: Negative COVID-19 Nursing Documentation-PMH Past Medical History: No History, Except For Hx Cardiac Problems: Yes - ckd, gerd, bph, pna, bronchitis, Hx Hypertension: Yes Hx Pacemaker: No Hx Asthma: No Hx COPD: No Hx Diabetes: Yes - type 2 Hx Cancer: No Hx Gastrointestinal Problems: Yes - DYSPHAGIA Hx Dialysis: No Hx Neurological Problems: Yes Hx Cerebrovascular Accident: Yes - dysphagia Hx Dementia: Yes Hx Alzheimer's Disease: Yes Hx Seizures: No Hx Weakness: Yes Physical Exam Vital Signs Date Time Temp Pulse Resp B/P (MAP) Pulse Ox O2 Delivery O2 Flow Rate FiO2 05/20/20 13:55 99.9 83 18 128/73 (91) 93 Nasal Cannula 2.0 Sp02 EP Interpretation: reviewed, abnormal Medical Decision Making Diagnostic Impression: Primary Impression: Hypoxia Additional Impressions: Pneumonia due to COVID-19 virus Multifocal pneumonia Aphasia History of CVA (cerebrovascular accident) BPH (benign prostatic hyperplasia) HTN (hypertension) EKG Diagnostic Results PA Scribe Damari 12-lead EKG (interpreted by me) Time: 1427 Indication: Rhythm analysis Tracing visualized and Interpreted by me. Rhythm: Normal sinus rhythm Rate: 73 bpm QTc: 431 Morphology: No_significant_ST_elevations_or_depressions, No STEMI Impression: Normal_sinus_rhythm_without_significant_abnormality T wave inversions in V2 through V6. No acute ST elevation CO. Rhythm Strip Diag. Results Rhythm Strip Time: 15:14 EP Interpretation: yes Rate: 84 Rhythm: NSR, no PVC's, no ectopy Chest X-Ray Diagnostic Results Chest X-Ray Diagnostic Results : PA Scribe Text Chest X-Ray: Views: 1 view(s) Indication: SOB Findings: Normal heart size. Mediastinum normal. Impression: atelectasis, no effusion, no ptx The X-ray(s) were independently viewed and interpreted contemporaneously Electronically signed by , Gavi Freire DO Reevaluation Time: 15:14 Last Vital Signs Date Time Temp Pulse Resp B/P (MAP) Pulse Ox O2 Delivery O2 Flow Rate FiO2 05/20/20 13:55 99.9 83 18 128/73 (91) 93 Nasal Cannula 2.0 Status: improved Disposition: ADMITTED INPATIENT Admit Decision Time: 15:14 Condition: Stable Referrals: Ahsan Hodges MD (PCP) Gavi Freire D.O. May 20, 2020 15:14
[2020-05-20 15:23] LABS: APPEARANCE,URINE CLEAR; BILIRUBIN, URINE NEGATIVE (NEGATIVE); GLUCOSE, URINE (UA) NEGATIVE (NEGATIVE); KETONES,URINE NEGATIVE (NEGATIVE); LEUKOCYTE ESTERASE ,URINE NEGATIVE (NEGATIVE); NITRITE,URINE NEGATIVE (NEGATIVE); PH,URINE 5 (4.5-8.0); PROTEIN,URINE 2+ (NEGATIVE); UROBILINOGEN,URINE NORMAL MG/DL (0.0-1.0)
[2020-05-20 15:24] LABS: COLOR,URINE YELLOW
[2020-05-20 15:28] VITALS: BP 153/85
[2020-05-20 15:29] LABS: BASOPHILS % (AUTO) 1.3 % (0.0-2.0); EOSINOPHILS % (AUTO) 0.1 % (0.0-3.0); HEMATOCRIT 44.2 % (42.0-52.0); HEMOGLOBIN 14.9 G/DL (14.2-18.0); LYMPHOCYTES % (AUTO) 32.7 % (20.0-45.0); MEAN CORPUSCULAR VOLUME 90 FL (80-99); MONOCYTES % (AUTO) 13.6 % (1.0-10.0); NEUTROPHILS % (AUTO) 52.3 % (45.0-75.0); PLATELET COUNT 150 K/UL (150-450); RED BLOOD COUNT 4.93 M/UL (4.70-6.10); RED CELL DISTRIBUTION WIDTH 13.3 % (11.6-14.8)
--- NOTE | 2020-05-20 15:35 | NUR ---
ED Nurse Note: [id number] ed GOMEZ, in regards to pt COVID result. Spoke with Makayla from admissions. Addendum: 05/20/20 at 1536 by PDEJOSE MARTIN ED Nurse Note: called ed GOMEZ, in regards to pt COVID result. Spoke with Makayla from admissions.
[2020-05-20] MEDS ORDERED: dexAMETHasone 10mg/ml Inj IV ONE (15:45)
--- NOTE | 2020-05-20 16:58 | NUR ---
ED Nurse Note: report given to FLORES Machado
[2020-05-20] MEDS ORDERED: Miralax 17gm pkt ORAL PRN (17:00)
[2020-05-20] MEDS ORDERED: Albuterol/Ipratropium 3ml neb HHN PRN (17:00)
[2020-05-20] MEDS ORDERED: Promethazine/Codeine 5ml UD ORAL PRN (17:00)
--- NOTE | 2020-05-20 17:15 | NUR ---
NURSE NOTES: Received report from FLORES Roberson. Pt Awake, Alert, non verbal at the moment. No s/s of acute respiratory and cardiac distress. On O2 2L NC. Sl on right and left wrist 22 G, patent, asymptomatic and intact. Pt on droplet and contact isolation. Pressure ulcer stage 2 noted on sacral buttocks area, bilateral ankle, redness on scrotal area and pictures taken. Bed in low position, side rails up x 3 and call light within reach. Will continue with admission assessment.
--- NOTE | 2020-05-20 17:39 | Diagnostic Imaging Report ---
Indication: Cough Technique: One view of the chest Comparison: 03/24/2017 Findings: Some atelectatic changes are seen at both lung bases. The heart size is upper limits of normal. There is a right shoulder prosthesis. Impression: Bibasilar atelectasis. No acute process otherwise
--- NOTE | 2020-05-20 19:18 | NUR ---
NURSE HAND-OFF REPORT: Important Events on Shift:[] Patient Status: [] Diet: [] Pending Orders: [] Pending Results/Labs:[] Pending MD notification:[] Latest Vital Signs: Temperature 99.8 , Pulse 82 , B/P 121 /89 , Respiratory Rate 18 , O2 SAT 100 , Nasal Cannula, O2 Flow Rate 2.0 . Vital Sign Comment: [] EKG Rhythm: Sinus Rhythm Rhythm change?: MD Notified?: - MD Response: Gonzalez Fall Score: 50 Fall Risk: High Risk Safety Measures: Call light Within Reach, Bed Alarm Zone 2, Side Rails Side Rails x3, Bed position Low and Locked. Fall Precautions: Yellow Gown Report given to [FLORES Tobias]. Addendum: 05/20/20 at 1919 by Wanda Caceres RN Report given to FLORES Washington
--- NOTE | 2020-05-20 19:30 | NUR ---
NURSE NOTES: Received report from Wanda Alonso RN. Pt in stable condition, fall precautions in place. Will continue to monitor closely.
[2020-05-20 20:00] VITALS: BP 141/81
[2020-05-20] MEDS: Heparin 5000 units/ml inj SUBQ SCH (21:00)
[2020-05-21] VITALS (9 sets, daily range): BP systolic 102–160; BP diastolic 57–96
[2020-05-21 05:23] LABS: BASOPHILS % (AUTO) 1.2 % (0.0-2.0); EOSINOPHILS % (AUTO) 0.1 % (0.0-3.0); HEMATOCRIT 49.1 % (42.0-52.0); HEMOGLOBIN 15.6 G/DL (14.2-18.0); LYMPHOCYTES % (AUTO) 25.1 % (20.0-45.0); MEAN CORPUSCULAR VOLUME 89 FL (80-99); MONOCYTES % (AUTO) 13.5 % (1.0-10.0); NEUTROPHILS % (AUTO) 60.1 % (45.0-75.0); PLATELET COUNT 176 K/UL (150-450); RED BLOOD COUNT 5.51 M/UL (4.70-6.10); RED CELL DISTRIBUTION WIDTH 12.8 % (11.6-14.8); WHITE BLOOD COUNT 5.9 K/UL (4.8-10.8)
[2020-05-21 05:40] LABS: ALBUMIN 2.6 G/DL (3.4-5.0); ANION GAP 10 mmol/L (5-15); BLOOD UREA NITROGEN 19 mg/dL (7-18); CALCIUM 8.5 MG/DL (8.5-10.1); CARBON DIOXIDE 23 MMOL/L (21-32); CHLORIDE 105 MMOL/L (98-107); CREATININE 1.1 MG/DL (0.55-1.30); PHOSPHORUS 3.4 MG/DL (2.5-4.9); POTASSIUM 4.4 MMOL/L (3.5-5.1); SODIUM 138 MMOL/L (136-145)
--- NOTE | 2020-05-21 07:30 | NUR ---
NURSE NOTES: Received patient in bed. Awake, nonverbal. On 2 l via NC. No signs of pain at this time. IV in the Right wrist, site intact. Patient is a high fall risk d/t Gonzalez fall score of 50. Patient placed in a room close to the nurse's station for safety and close monitoring. Yellow socks on, yellow gown on, bed at the lowest position, bed locked, bed alarm placed on high sensitivity, call light placed within reach - unable to return demonstration. CN and ELECTRONIC HEAT SEAL OPERATOR made aware.
--- NOTE | 2020-05-21 07:45 | NUR ---
NURSE HAND-OFF REPORT: Important Events on Shift: None Patient Status: None Diet: ELVIA mech soft Pending Orders: none Pending Results/Labs: none Pending MD notification: none Latest Vital Signs: Temperature 98.8 , Pulse 97 , B/P 160 /80 , Respiratory Rate 18 , O2 SAT 96 , Nasal Cannula, O2 Flow Rate 2.0 . Vital Sign Comment: EKG Rhythm: Sinus Rhythm Rhythm change?: N MD Notified?: - MD Response: Latest Gonzalez Fall Score: 50 Fall Risk: High Risk Safety Measures: Call light Within Reach, Bed Alarm Zone 1, Side Rails Side Rails x3, Bed position Low and Locked. Fall Precautions: Yellow Socks YES Yellow Gown YES Door Sign YES Patient Fall Education YES Report given to Avery Blackwell RN.
[2020-05-21] MEDS: Lisinopril 2.5mg tab ORAL SCH (09:21)
[2020-05-21] MEDS: Donepezil 5mg Tab ORAL SCH (09:21)
[2020-05-21] MEDS: Tamsulosin 0.4mg cap ORAL SCH (09:21)
[2020-05-21] MEDS: Heparin 5000 units/ml inj SUBQ SCH ×2 (09:22→21:39)
[2020-05-21] MEDS ORDERED: Varibar Honey 250ml MC PRN (12:45)
[2020-05-21] MEDS ORDERED: Varibar Thin Liquid powder 148gm MC PRN (12:45)
[2020-05-21] MEDS ORDERED: Varibar Pudding 230ml MC PRN (12:45)
[2020-05-21] MEDS ORDERED: Varibar Nectar 240ml MC PRN (12:45)
[2020-05-21] MEDS: Azithromycin 250 MG in D5W 275 ML IV SCH (13:09)
--- NOTE | 2020-05-21 13:22 | Consultation ---
History of Present Illness General Date patient seen: May 21, 2020 Chief Complaint: Fever Present Illness HPI 76 year old patient with hx of CAD, CVA, Dementia, [facility] resident presented to ER with CC of cough and fever . He is unable to give any history . Pt was diagnosed to have COVID-19 and is admitted to telemetry for further management. Allergies: Coded Allergies: No Known Allergies (Unverified , 04/30/12) Medication History Scheduled Alendronate Sodium* (Fosamax*), 70 MG ORAL ONCE A WEEK, (Reported) Amlodipine Besylate (Norvasc), 5 MG ORAL DAILY, (Reported) Aspirin* (Aspir 81*), 81 MG ORAL DAILY, (Reported) Atorvastatin Calcium* (Atorvastatin Calcium*), 10 MG ORAL BEDTIME, (Reported) Cephalexin (Cephalexin), 500 MG ORAL FOUR TIMES A DAY Cranberry Fruit Concentrate (Cranberry), 450 MG PO BID, (Reported) Docusate Sodium* (Colace*), 200 MG ORAL DAILY, (Reported) Donepezil Hcl* (Donepezil Hcl*), 5 MG ORAL DAILY, (Reported) Donepezil Hcl* (Aricept*), 10 MG ORAL DAILY, (Reported) Furosemide* (Lasix*), 20 MG ORAL DAILY, (Reported) Lisinopril (Lisinopril*), 5 MG ORAL DAILY, (Reported) Multivitamin (Multi Vitamin Daily), 1 TAB ORAL DAILY, (Reported) Tamsulosin HCl (Flomax), 0.4 MG ORAL DAILY, (Reported) Scheduled PRN Acetaminophen (Tylenol), 650 MG ORAL Q6H PRN for Fever/Headache/Mild Pain, ( Reported) Guaifenesin (Sabra-Tussin), 15 ML PO EVERY 8 HOURS PRN for For Cough, (Reported) Nitroglycerin (Nitroglycerin), 0.4 MG SL NEEDED PRN for For Pain, (Reported) Miscellaneous Medications Calcium Carbonate/Vitamin D3 (Calcium 500+D Tablet Chew), 1 EACH PO, (Reported) Patient History Healthcare decision maker N Resuscitation status Advanced Directive on File Past Medical/Surgical History Past Medical/Surgical History: (1) History of CVA (cerebrovascular accident) (2) BPH (benign prostatic hyperplasia) (3) HTN (hypertension) (4) Alzheimer's dementia (5) Osteoporosis Review of Systems All Other Systems: negative except mentioned in HPI Physical Exam General Appearance: cachetic Lines, tubes and drains: peripheral HEENT: normocephalic, atraumatic Neck: non-tender, normal alignment Respiratory/Chest: chest wall non-tender, lungs clear Breasts: no masses Cardiovascular/Chest: normal peripheral pulses Abdomen: normal bowel sounds, non tender Genitourinary/Rectal: normal genital exam, normal rectal exam Extremities: normal range of motion, non-tender Skin Exam: normal pigmentation Neurologic: literary agent II-XII grossly normal Last 24 Hour Vital Signs Date Time Temp Pulse Resp B/P (MAP) Pulse Ox O2 Delivery O2 Flow Rate FiO2 05/21/20 12:34 96.6 85 20 121/96 (104) 98 05/21/20 12:00 71 05/21/20 09:22 58 126/69 05/21/20 09:21 126/69 05/21/20 09:00 Nasal Cannula 2.0 05/21/20 08:00 55 05/21/20 08:00 97.9 58 19 126/69 (88) 100 05/21/20 04:00 63 05/21/20 04:00 98.8 97 18 160/80 (106) 96 05/21/20 00:00 65 05/21/20 00:00 98.4 92 18 155/79 (104) 96 05/20/20 21:00 Nasal Cannula 2.0 05/20/20 20:00 74 05/20/20 20:00 96.5 74 18 141/81 (101) 95 05/20/20 17:58 Nasal Cannula 2.0 05/20/20 17:05 82 18 121/89 100 Nasal Cannula 2.0 05/20/20 15:28 78 18 153/85 99 Nasal Cannula 2.0 05/20/20 14:35 89 17 158/95 100 Nasal Cannula 2.0 05/20/20 14:35 83 18 Nasal Cannula 2.0 05/20/20 13:55 99.9 83 18 128/73 (91) 93 Nasal Cannula 2.0 Intake and Output 05/20/20 05/21/20 19:00 07:00 Intake Total 0 ml Balance 0 ml Intake Oral 0 ml # Voids 2 Laboratory Tests Test 05/20/20 14:30 05/20/20 14:46 05/20/20 15:02 05/21/20 04:45 Sodium Level 139 MMOL/L (136-145) 138 MMOL/L (136-145) Potassium Level 4.0 MMOL/L (3.5-5.1) 4.4 MMOL/L (3.5-5.1) Chloride Level 104 MMOL/L (98-107) 105 MMOL/L (98-107) Carbon Dioxide Level 25 MMOL/L (21-32) 23 MMOL/L (21-32) Anion Gap 10 mmol/L (5-15) 10 mmol/L (5-15) Blood Urea Nitrogen 20 mg/dL (7-18) H 19 mg/dL (7-18) H Creatinine 1.2 MG/DL (0.55-1.30) 1.1 MG/DL (0.55-1.30) Estimat Glomerular Filtration Rate 58.7 mL/min (>60) > 60 mL/min (>60) Glucose Level 149 MG/DL (74-106) H 144 MG/DL (74-106) H Lactic Acid Level 0.90 mmol/L (0.4-2.0) Calcium Level 8.5 MG/DL (8.5-10.1) 8.5 MG/DL (8.5-10.1) Phosphorus Level 3.2 MG/DL (2.5-4.9) 3.4 MG/DL (2.5-4.9) Magnesium Level 2.1 MG/DL (1.8-2.4) Total Bilirubin 0.3 MG/DL (0.2-1.0) Aspartate Amino Transf (AST/SGOT) 31 U/L (15-37) Alanine Aminotransferase (ALT/SGPT) 27 U/L (12-78) Alkaline Phosphatase 108 U/L (46-116) Troponin I 0.000 ng/mL (0.000-0.056) Pro-B-Type Natriuretic Peptide 110 pg/mL (0-125) Total Protein 7.6 G/DL (6.4-8.2) Albumin 2.7 G/DL (3.4-5.0) L 2.6 G/DL (3.4-5.0) L Globulin 4.9 g/dL Albumin/Globulin Ratio 0.6 (1.0-2.7) L Arterial Blood pH 7.419 (7.350-7.450) Arterial Blood Partial Pressure CO2 39.4 mmHg (35.0-45.0) Arterial Blood Partial Pressure O2 110.7 mmHg (75.0-100.0) H Arterial Blood HCO3 24.9 mmol/L (22.0-26.0) Arterial Blood Oxygen Saturation 97.8 % (95-100) Arterial Blood Base Excess 0.5 (-2-2) Richard Test Positive White Blood Count 7.0 K/UL (4.8-10.8) 5.9 K/UL (4.8-10.8) Red Blood Count 4.93 M/UL (4.70-6.10) 5.51 M/UL (4.70-6.10) Hemoglobin 14.9 G/DL (14.2-18.0) 15.6 G/DL (14.2-18.0) Hematocrit 44.2 % (42.0-52.0) 49.1 % (42.0-52.0) Mean Corpuscular Volume 90 FL (80-99) 89 FL (80-99) Mean Corpuscular Hemoglobin 30.3 PG (27.0-31.0) 28.3 PG (27.0-31.0) Mean Corpuscular Hemoglobin Concent 33.8 G/DL (32.0-36.0) 31.8 G/DL (32.0-36.0) L Red Cell Distribution Width 13.3 % (11.6-14.8) 12.8 % (11.6-14.8) Platelet Count 150 K/UL (150-450) 176 K/UL (150-450) Mean Platelet Volume 8.3 FL (6.5-10.1) 7.3 FL (6.5-10.1) Neutrophils (%) (Auto) 52.3 % (45.0-75.0) 60.1 % (45.0-75.0) Lymphocytes (%) (Auto) 32.7 % (20.0-45.0) 25.1 % (20.0-45.0) Monocytes (%) (Auto) 13.6 % (1.0-10.0) H 13.5 % (1.0-10.0) H Eosinophils (%) (Auto) 0.1 % (0.0-3.0) 0.1 % (0.0-3.0) Basophils (%) (Auto) 1.3 % (0.0-2.0) 1.2 % (0.0-2.0) Prothrombin Time 11.4 SEC (9.30-11.50) Prothromb Time International Ratio 1.0 (0.9-1.1) Activated Partial Thromboplast Time 31 SEC (23-33) Urine Color Yellow Urine Appearance Clear Urine pH 5 (4.5-8.0) Urine Specific [place] 1.025 (1.005-1.035) Urine Protein 2+ (NEGATIVE) H Urine Glucose (UA) Negative (NEGATIVE) Urine Ketones Negative (NEGATIVE) Urine Blood 2+ (NEGATIVE) H Urine Nitrite Negative (NEGATIVE) Urine Bilirubin Negative (NEGATIVE) Urine Urobilinogen Normal MG/DL (0.0-1.0) Urine Leukocyte Esterase Negative (NEGATIVE) Urine RBC 2-4 /HPF (0 - 0) H Urine WBC 0-2 /HPF (0 - 0) Urine Squamous Epithelial Cells None /LPF (NONE/OCC) Urine Bacteria Moderate /HPF (NONE) H Microbiology Date/Time Source Procedure Growth Status 05/20/20 14:30 Nasopharynx SARS-CoV-2 RdRp Gene Assay - Final Complete 05/20/20 15:02 Urine,Clean Catch Urine Culture - Preliminary NO GROWTH Resulted 05/20/20 15:10 Rectum Received Height (Feet): 5 Height (Inches): 5.00 Weight (Pounds): 159 Medications Current Medications Medications (Trade) Dose Ordered Sig/Ankush Route PRN Reason Start Time Stop Time Status Last Admin Dose Admin Acetaminophen (Tylenol) 650 mg Q4H PRN ORAL FEVER 05/20/20 17:00 06/19/20 16:59 Albuterol/ Ipratropium (Combivent Respimat) 1 puff Q4H PRN INH Shortness of Breath 05/20/20 17:15 06/19/20 17:14 Amlodipine Besylate (Norvasc) 5 mg DAILY ORAL 05/21/20 09:00 06/20/20 08:59 05/21/20 09:22 Azithromycin 250 mg/Dextrose 275 ml @ 275 mls/hr Q24HRS IV 05/21/20 14:00 05/26/20 13:59 05/21/20 13:09 Barium Sulfate (Varibar Honey) 250 ml NOW PRN MC RAD 05/21/20 12:45 05/24/20 12:38 Barium Sulfate (Varibar Dougherty) 240 ml NOW PRN RAD 05/21/20 12:45 05/24/20 12:38 Barium Sulfate (Varibar Pudding) 230 ml NOW PRN RAD 05/21/20 12:45 05/24/20 12:38 Barium Sulfate (Varibar Thin Liquid powder) 148 gm NOW PRN RAD 05/21/20 12:45 05/24/20 12:38 Ceftriaxone Sodium 1 gm/ Dextrose 55 ml @ 110 mls/hr Q24H IVPB 05/21/20 14:00 05/28/20 13:59 Dexamethasone (Decadron) 4 mg DAILY ORAL 05/21/20 09:00 06/20/20 08:59 05/21/20 09:21 Dextrose (Dextrose 50%) 25 ml Q30M PRN IV Hypoglycemia 05/20/20 17:00 08/18/20 16:59 Dextrose (Dextrose 50%) 50 ml Q30M PRN IV Hypoglycemia 05/20/20 17:00 08/18/20 16:59 Donepezil HCl (Aricept) 5 mg DAILY ORAL 05/21/20 09:00 06/20/20 08:59 05/21/20 09:21 Heparin Sodium (Porcine) (Heparin 5000 units/ml) 5,000 units EVERY 12 HOURS SUBQ 05/20/20 21:00 07/04/20 20:59 05/21/20 09:22 Lisinopril (ZestriL) 5 mg DAILY ORAL 05/21/20 09:00 06/20/20 08:59 05/21/20 09:21 Ondansetron HCl (Zofran) 4 mg Q6H PRN IVP Nausea & Vomiting 05/20/20 17:00 06/19/20 16:59 Polyethylene Glycol (Miralax) 17 gm DAILYPRN PRN ORAL Constipation 05/20/20 17:00 06/19/20 16:59 Promethazine HCl/ Codeine (Phenergan with Codeine) 5 ml Q6H PRN ORAL cough 05/20/20 17:00 06/19/20 16:59 Tamsulosin HCl (Flomax) 0.4 mg DAILY ORAL 05/21/20 09:00 06/20/20 08:59 05/21/20 09:21 Assessment/Plan Problem List: (1) 2019 novel coronavirus disease (COVID-19) ICD Codes: U07.1 - COVID-19 SNOMED: 833825647 (2) Acute bronchitis ICD Codes: J20.9 - Acute bronchitis, unspecified SNOMED: 27273641 (3) History of CVA (cerebrovascular accident) ICD Codes: Z86.73 - Personal history of transient ischemic attack (TIA), and cerebral infarction without residual deficits; J12.89 - Other viral pneumonia SNOMED: 154762004, 492892824 (4) BPH (benign prostatic hyperplasia) ICD Codes: N40.0 - Benign prostatic hyperplasia without lower urinary tract symptoms SNOMED: 357720009, 929948241 (5) HTN (hypertension) ICD Codes: I10 - Essential (primary) hypertension SNOMED: 68192458 (6) Alzheimer's dementia ICD Codes: G30.9 - Alzheimer's disease, unspecified SNOMED: 12351781 Assessment/Plan: respiratory isolation check sputum iv abx ID to see f/u electrolytes titrate fio2 to sat of 92% f/u inflammatory markers monitor BP dvt prophylaxis Kya Carreno MD May 21, 2020 13:22
[2020-05-21] MEDS: cefTRIAXone 1 GM in D5W 55 ML IVPB SCH (13:53)
--- NOTE | 2020-05-21 16:53 | NUR ---
TONGUE PRESSER SWALLOW EVALUATION PATIENT REFERRED TO TONGUE PRESSER BY DR. BAEZ. DYSPHAGIA RISK FACTORS FOR THIS 79 Y.O. UPPER SORBIAN SPEAKING MALE: ACUTE: Hypoxia, multifocal PNA 2/2 + COVID-19 infection, acute bronchitis, h/o CVA, Aphasia. 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 POLST: Full code, ok with residential alternative nutrition/hydration. VITALS ON 2 L NASAL CANNULA: HR: 85; RR: 20; SP02 98% RAD: 05/20/20 CXR Findings: Some atelectatic changes are seen at both lung bases. The heart size is upper limits of normal. There is a right shoulder prosthesis. Impression: Bibasilar atelectasis. No acute process otherwise PER RN: Concern for Patients safety with mechanical soft ground diet texture due to Patient demonstrating slow and prolonged mastication of hard solids in AM. Also Patient appeared to be swallowing slowly during breakfast in AM per RN, therefore, TONGUE PRESSER order was placed to further evaluate safety with current diet. Patient seen at bedside, has nasal cannula placed, re-positioned upright for swallow evaluation. Oral care completed, missing natural dentition noted. Patients oral motor ROM and coordination appears reduced. Patient did not verbally communicate during the evaluation, did nod head yes/no to simple egocentric questions. 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 Laryngeal elevation present upon palpation, appears moderately delayed and incomplete in feel. Patient presenting with oral defensiveness during TONGUE PRESSER swallow evaluation which posed as a barrier to a comprehensive evaluation. Patient was agreeable to PO trials of thin liquids and nectar thick liquids. No significant aspiration signs or symptoms with any PO trials. Patient noted with bolus holding with thin liquids, given delayed swallow initiation at bedside, h/o dysphagia/CVA/Dementia, now with multifocal PNA, Patient is a high risk for aspiration. Patient demonstrating a questionable ability to clear airway in instances of aspiration and/or penetration given no vocal production during evaluation and per MBSS results on 03/24/17, Patient has oral apraxia and sensorimotor deficits. RECOMMENDATIONS: 1. Continue Mechanical soft-ground solids, downgrade Patient to nectar thick liquids via 1 to 1 careful handfeeding, Patient has difficulty with straws. Monitor for aspiration signs and symptoms. 2. TONGUE PRESSER plans to f/u with Patient 3-5x per week for dysphagia tx/management. 3. Hope to complete MBSS while in house, will monitor when able to be transferred to radiology. TONGUE PRESSER discussed result and recommendations with FLORES Varela, TONGUE PRESSER will f/u tomorrow for diet tolerance, dysphagia tx and management, and to attempt additional PO trials to determine safest and least restrictive diet. Thank you for this referral!
--- NOTE | 2020-05-21 17:55 | History & Physical ---
History and Physical History & Physicial Dictated for Int Med-DR Hodges no. [id number]. Dano Groves MD May 21, 2020 17:55
--- NOTE | 2020-05-21 19:28 | NUR ---
NURSE HAND-OFF REPORT: Important Events on Shift:[ST eval, wounds eval] Patient Status: [FULL CODE] Diet: [MS ground, NTL] Pending Orders: [] Pending Results/Labs:[] Pending MD notification:[] Latest Vital Signs: Temperature 96.8 , Pulse 57 , B/P 122 /82 , Respiratory Rate 19 , O2 SAT 96 , Nasal Cannula, O2 Flow Rate 2.0 . Vital Sign Comment: [] EKG Rhythm: Sinus Bradycardia Rhythm change?: N MD Notified?: - MD Response: Latest Gonzalez Fall Score: 50 Fall Risk: High Risk Safety Measures: Call light Within Reach, Bed Alarm Zone 1, Side Rails Side Rails x3, Bed position Low and Locked. Fall Precautions: Yellow Socks Yellow Gown Door Sign Patient Fall Education Report given to [Timi TANNER].
--- NOTE | 2020-05-21 19:29 | History and Physical Report ---
DATE OF ADMISSION: 05/20/2020 CHIEF COMPLAINT: The patient is a 79-year-old male who presents with chief complaint of fever and cough. HISTORY OF PRESENT ILLNESS: The patient is a resident of [facility]. According to staff at [facility], the patient began to experience fevers of up to 101 degrees Fahrenheit two days ago. The patient was also noted to have nonproductive cough. The patient was evaluated at [facility] Emergency Room. The patient is admitted with fever and cough to rule out COVID-19. REVIEW OF SYSTEMS: Unable to assess secondary to the patient's mental status. PAST MEDICAL HISTORY: 1. Hypertension. 2. Benign prostatic hypertrophy. 3. Osteoporosis. 4. Ventriculomegaly. 5. Alzheimer dementia. 6. Congestive heart failure. 7. Diabetes type 2. 8. Cerebrovascular disease, status post cerebrovascular accident. 9. Chronic renal disease, stage 2. 10. Dysphagia. 11. Hypercholesterolemia. 12. Encephalopathy. 13. Gastroesophageal reflux disease. PAST SURGICAL HISTORY: Significant for right shoulder surgery. CURRENT MEDICATIONS: 1. Tylenol 650 mg p.o. q.4h. p.r.n. 2. Fosamax 70 mg p.o. weekly. 3. Aricept 10 mg p.o. daily. 4. Aspirin 81 mg p.o. daily. 5. Atorvastatin 10 mg p.o. at bedtime. 6. Baclofen 5 mg p.o. p.r.n. 7. Calcium carbonate/vitamin D 1 tablet p.o. daily. 8. Lasix 20 mg p.o. daily. 9. Nitroglycerin 0.4 mg sublingual p.r.n. 10. Norvasc 5 mg p.o. daily. 11. Potassium chloride 10 mEq p.o. daily. 12. Flomax 0.4 mg p.o. daily. 13. Vitamin C 500 mg p.o. daily. 14. Zinc sulfate 220 mg p.o. daily. ALLERGIES: No known drug allergies. SOCIAL HISTORY: The patient is . The patient is a resident of [facility] as above. The patient denies tobacco or alcohol use. PHYSICAL EXAMINATION: VITAL SIGNS: Temperature 99.9, respirations 18, pulse 83, blood pressure 128/73. GENERAL: The patient is a well-developed, well-nourished, thin-appearing male, in no apparent distress. HEENT: Eyes, pupils are equal and responsive to light and accommodation. Extraocular movements are intact. NECK: Supple without lymphadenopathy. CHEST: Lungs are clear to auscultation bilaterally without wheezes, rales. CARDIOVASCULAR: Regular rate. S1, S2 are normal without murmurs, rubs, or gallops. ABDOMEN: Soft, nontender, and nondistended. Positive bowel sounds. No evidence of hepatosplenomegaly. Currently no rebound or guarding noted. EXTREMITIES: Negative for clubbing, cyanosis, or edema. RECTAL/GENITAL: Not performed. NEUROLOGIC: Cranial nerves II through XII are grossly intact without focal deficits. Motor strength is 5/5 bilaterally. Deep tendon reflexes are 2+ plantar. A chest x-ray was reported as bibasilar atelectasis with no acute disease. LABORATORY STUDIES: COVID-19 positive. CBC, WBC is 7.0, hemoglobin 14.9, hematocrit 44.2, platelets 150,000. Sodium 139, potassium 4.0, chloride 104, CO2 25, BUN 20, creatinine 1.2, glucose 149. ASSESSMENT: This is a 79-year-old male. 1. Fever. 2. Dyspnea. 3. COVID-19 positive. 4. Congestive heart failure. 5. Hypertension. 6. Benign prostatic hypertrophy. 7. Osteoporosis. 8. Alzheimer dementia. 9. Ventriculomegaly. 10. Diabetes type 2. 11. Cerebrovascular disease. 12. Chronic renal failure. 13. Dysphagia. 14. Hypercholesterolemia. 15. Gastroesophageal reflux disease. TREATMENT: 1. Fever/dyspnea/COVID-19 positive. An infectious disease consultation has been obtained with Dr. Cho. A pulmonary consultation has been obtained with Dr. Kya Carreno. The patient has been started empirically on azithromycin and ceftriaxone for probable underlying bacterial pneumonia. The patient has been started on Decadron. We will follow recommendation of Infectious Disease and Pulmonary. 2. Hypertension. Continue amlodipine as above. 3. Benign prostatic hypertrophy. Continue Flomax as above. 4. Osteoporosis. Continue Fosamax as above. 5. Alzheimer dementia. Continue Aricept as above. 6. Ventriculomegaly. 7. Diabetes type 2. 8. Cerebrovascular disease, status post cerebrovascular accident. 9. Chronic renal failure. 10. Dysphagia. 11. Hypercholesterolemia. Continue atorvastatin as above. 12. Gastroesophageal reflux disease. Dano Groves M.D. DR: KATI JOB#: [id number] CC:
--- NOTE | 2020-05-21 19:30 | NUR ---
NURSE NOTES: Important Events on Shift: Received report from Avery Blackwell RN. Pt in stable condition, no signs or symptoms of distress or pain noted at this time. FLACC 0. Patient Status: Stable Diet: ELVIA mech soft Pending Orders: CXR, Pending Results/Labs: CMP, CBC, Phos, Mag, CRP, sed rate Pending MD notification: None Latest Vital Signs: Temperature 96.8 , Pulse 57 , B/P 122 /82 , Respiratory Rate 19 , O2 SAT 96 , Nasal Cannula, O2 Flow Rate 2.0 . Vital Sign Comment: Stable EKG Rhythm: Sinus Bradycardia Rhythm change?: N MD Notified?: - MD Response: - Latest Gonzalez Fall Score: 50 Fall Risk: High Risk Safety Measures: Call light Within Reach, Bed Alarm Zone 1, Side Rails Side Rails x3, Bed position Low and Locked. Fall Precautions: YES Yellow Socks YES Yellow Gown YES Door Sign YES Patient Fall Education YES
[2020-05-22] VITALS: BP 100/59
[2020-05-22 04:00] VITALS: BP 102/63
--- NOTE | 2020-05-22 07:50 | NUR ---
NURSE HAND-OFF REPORT: Important Events on Shift: None Patient Status: Stable Diet: ELVIA mech soft Pending Orders: CXR, Pending Results/Labs: CMP, Mag,, Sed rate, CBC, Phos, CRP, Pending MD notification: None Latest Vital Signs: Temperature 97.3 , Pulse 55 , B/P 102 /63 , Respiratory Rate 18 , O2 SAT 96 , Nasal Cannula, O2 Flow Rate 2.0 . Vital Sign Comment: Stable EKG Rhythm: Sinus Bradycardia Rhythm change?: N MD Notified?: - MD Response: - Latest Gonzalez Fall Score: 50 Fall Risk: High Risk Safety Measures: Call light Within Reach, Bed Alarm Zone 1, Side Rails Side Rails x3, Bed position Low and Locked. Fall Precautions: Yellow Socks yes Yellow Gown yes Door Sign yes Patient Fall Education yes Report given to Roman Farmer RN
[2020-05-22 08:00] VITALS: BP 114/73
--- NOTE | 2020-05-22 08:01 | NUR ---
NURSE NOTES: Received report from Flora Capellan RN. Patient sitting up in bed, on room air, IV in right wrist 22 gauge, IV in left wrist 22 guage, both saline locked, bed in lowest position, call light within reach, side rails up x 3, no c/o pain, no SOB, in no apparent distress.
[2020-05-22 09:09] LABS: BASOPHILS % (AUTO) 1.4 % (0.0-2.0); EOSINOPHILS % (AUTO) 0.1 % (0.0-3.0); HEMATOCRIT 47.8 % (42.0-52.0); HEMOGLOBIN 15.8 G/DL (14.2-18.0); LYMPHOCYTES % (AUTO) 24.4 % (20.0-45.0); MEAN CORPUSCULAR VOLUME 88 FL (80-99); MONOCYTES % (AUTO) 9.8 % (1.0-10.0); NEUTROPHILS % (AUTO) 64.4 % (45.0-75.0); PLATELET COUNT 159 K/UL (150-450); RED BLOOD COUNT 5.42 M/UL (4.70-6.10); RED CELL DISTRIBUTION WIDTH 12.5 % (11.6-14.8); WHITE BLOOD COUNT 8.4 K/UL (4.8-10.8)
[2020-05-22] MEDS: Donepezil 5mg Tab ORAL SCH (09:12)
[2020-05-22] MEDS: Lisinopril 2.5mg tab ORAL SCH (09:12)
[2020-05-22] MEDS: Tamsulosin 0.4mg cap ORAL SCH (09:12)
[2020-05-22] MEDS: Heparin 5000 units/ml inj SUBQ SCH ×2 (09:13→21:23)
[2020-05-22 09:30] LABS: ALBUMIN 2.8 G/DL (3.4-5.0); ALBUMIN/GLOBULIN RATIO 0.5 (1.0-2.7); BILIRUBIN,TOTAL 0.4 MG/DL (0.2-1.0); CREATININE 1.2 MG/DL (0.55-1.30); PHOSPHORUS 2.9 MG/DL (2.5-4.9); POTASSIUM 3.8 MMOL/L (3.5-5.1)
--- NOTE | 2020-05-22 10:43 | NUR ---
RADIOLOGY DEPT., CHEST X-RAY DONE-P.DYE
--- NOTE | 2020-05-22 11:58 | NUR ---
ST NOTE SWALLOW STATUS Patient being seen for dysphagia tx and management. Current diet is mechanical soft ground with nectar thick liquids. Per RN Roman, in AM Patient was slightly orally defensive during medication management; medications with nectar thick liquids and breakfast meal. However, per cupola charger Aquiles, Patient did consume an entire tuna fish sandwich and nectar thick liquids instead of breakfast meal with no overt signs or symptoms of aspiration. Given Patient was consuming mechanical soft chopped with thin liquids at [facility] compounded by CXR on 05/20 not concerning for aspiration incident, Patient continues to be safe on mechanical soft ground solids with nectar thick liquids. 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 BODY DESIGNER educated FLORES Owens on strategies to encourage Patient during PO, aspiration risks and precautions, and need for oral care/hygiene. RECOMMENDATIONS: 1. Continue Mechanical Soft- Ground with [place] Thick Liquids via 1 to 1 careful hand feeding, Patient has difficulty with straws. Monitor for aspiration signs and symptoms. 2. BODY DESIGNER plans to f/u with Patient 3-5x per week for dysphagia tx/management. 3. Continue to monitor Patients ability to be transferred to radiology to complete MBSS BODY DESIGNER will continue to f/u to monitor Patients tolerance of recommended diet, train and educate Patient and caregivers, and to monitor for candidacy for MBSS. BODY DESIGNER [phone]
[2020-05-22 12:00] VITALS: BP 117/67
--- NOTE | 2020-05-22 13:04 | Pulmonology Progress Note ---
Subjective ROS Limited/Unobtainable: No Constitutional: Reports: no symptoms HEENT: Repors: no symptoms Respiratory: Reports: no symptoms Allergies: Coded Allergies: No Known Allergies (Unverified , 04/30/12) Objective Last 24 Hour Vital Signs Date Time Temp Pulse Resp B/P (MAP) Pulse Ox O2 Delivery O2 Flow Rate FiO2 05/22/20 09:12 114/73 05/22/20 09:12 57 114/73 05/22/20 09:00 Nasal Cannula 2.0 05/22/20 08:00 57 05/22/20 08:00 98.7 57 18 114/73 (87) 97 05/22/20 04:00 52 05/22/20 04:00 97.3 55 18 102/63 (76) 96 05/22/20 00:00 59 05/22/20 00:00 96.7 59 18 100/59 (73) 96 05/21/20 21:00 Nasal Cannula 2.0 05/21/20 20:00 66 05/21/20 20:00 97.7 57 18 102/57 (72) 94 05/21/20 16:00 96.8 61 19 122/82 (95) 96 05/21/20 16:00 57 Intake and Output 05/21/20 05/22/20 19:00 07:00 # Voids 2 General Appearance: WD/WN HEENT: normocephalic, atraumatic Respiratory: chest wall non-tender, lungs clear, respiratory distress Cardiovascular: normal peripheral pulses, normal rate Abdomen: normal bowel sounds, soft, non tender Genitourinary: normal external genitalia Extremities: no cyanosis Microbiology Date/Time Source Procedure Growth Status 05/20/20 14:30 Blood Blood Culture - Preliminary NO GROWTH AFTER 24 HOURS Resulted 05/20/20 14:15 Blood Blood Culture - Preliminary Gram Positive Cocci Resulted 05/20/20 14:30 Nasopharynx SARS-CoV-2 RdRp Gene Assay - Final Complete 05/20/20 15:02 Urine,Clean Catch Urine Culture - Final NO GROWTH AFTER 48 HOURS Complete 05/20/20 15:10 Rectum VRE Culture - Final NO VANCOMYCIN RESISTANT ENTEROCOCCUS ... Complete Laboratory Tests 05/22/20 08:15: White Blood Count 8.4, Red Blood Count 5.42, Hemoglobin 15.8, Hematocrit 47.8, Mean Corpuscular Volume 88, Mean Corpuscular Hemoglobin 29.2, Mean Corpuscular Hemoglobin Concent 33.1, Red Cell Distribution Width 12.5, Platelet Count 159, Mean Platelet Volume 7.4, Neutrophils (%) (Auto) 64.4, Lymphocytes (%) (Auto) 24.4, Monocytes (%) (Auto) 9.8, Eosinophils (%) (Auto) 0.1, Basophils (%) (Auto ) 1.4, Sodium Level 142, Potassium Level 3.8, Chloride Level 105, Carbon Dioxide Level 27, Anion Gap 10, Blood Urea Nitrogen 26H, Creatinine 1.2, Estimat Glomerular Filtration Rate 58.7, Glucose Level 118H, Calcium Level 9.0, Phosphorus Level 2.9, Magnesium Level 2.4, Total Bilirubin 0.4, Aspartate Amino Transf (AST/SGOT) 50H, Alanine Aminotransferase (ALT/SGPT) 40, Alkaline Phosphatase 108, C-Reactive Protein, Quantitative 2.1H, Total Protein 7.9, Albumin 2.8L, Globulin 5.1, Albumin/Globulin Ratio 0.5L 05/22/20 10:10: Erythrocyte Sedimentation Rate 68H Current Medications Medications (Trade) Dose Ordered Sig/Ankush Route PRN Reason Start Time Stop Time Status Last Admin Dose Admin Acetaminophen (Tylenol) 650 mg Q4H PRN ORAL FEVER 05/20/20 17:00 06/19/20 16:59 Albuterol/ Ipratropium (Combivent Respimat) 1 puff Q4H PRN INH Shortness of Breath 05/20/20 17:15 06/19/20 17:14 Amlodipine Besylate (Norvasc) 5 mg DAILY ORAL 05/21/20 09:00 06/20/20 08:59 05/22/20 09:12 Azithromycin 250 mg/Dextrose 275 ml @ 275 mls/hr Q24HRS IV 05/21/20 14:00 05/26/20 13:59 05/21/20 13:09 Barium Sulfate (Varibar Honey) 250 ml NOW PRN MC RAD 05/21/20 12:45 05/24/20 12:38 Barium Sulfate (Varibar Hermann) 240 ml NOW PRN MC RAD 05/21/20 12:45 05/24/20 12:38 Barium Sulfate (Varibar Pudding) 230 ml NOW PRN MC RAD 05/21/20 12:45 05/24/20 12:38 Barium Sulfate (Varibar Thin Liquid powder) 148 gm NOW PRN MC RAD 05/21/20 12:45 05/24/20 12:38 Ceftriaxone Sodium 1 gm/ Dextrose 55 ml @ 110 mls/hr Q24H IVPB 05/21/20 14:00 05/28/20 13:59 05/21/20 13:53 Dexamethasone (Decadron) 4 mg DAILY ORAL 05/21/20 09:00 06/20/20 08:59 05/22/20 09:12 Dextrose (Dextrose 50%) 25 ml Q30M PRN IV Hypoglycemia 05/20/20 17:00 08/18/20 16:59 Dextrose (Dextrose 50%) 50 ml Q30M PRN IV Hypoglycemia 05/20/20 17:00 08/18/20 16:59 Donepezil HCl (Aricept) 5 mg DAILY ORAL 05/21/20 09:00 06/20/20 08:59 05/22/20 09:12 Heparin Sodium (Porcine) (Heparin 5000 units/ml) 5,000 units EVERY 12 HOURS SUBQ 05/20/20 21:00 07/04/20 20:59 05/22/20 09:13 Lisinopril (ZestriL) 5 mg DAILY ORAL 05/21/20 09:00 06/20/20 08:59 05/22/20 09:12 Ondansetron HCl (Zofran) 4 mg Q6H PRN IVP Nausea & Vomiting 05/20/20 17:00 06/19/20 16:59 Polyethylene Glycol (Miralax) 17 gm DAILYPRN PRN ORAL Constipation 05/20/20 17:00 06/19/20 16:59 Promethazine HCl/ Codeine (Phenergan with Codeine) 5 ml Q6H PRN ORAL cough 05/20/20 17:00 06/19/20 16:59 Tamsulosin HCl (Flomax) 0.4 mg DAILY ORAL 05/21/20 09:00 06/20/20 08:59 05/22/20 09:12 Assessment/Plan Problems: (1) Gram-negative bacteremia (2) 2019 novel coronavirus disease (COVID-19) (3) Acute bronchitis (4) History of CVA (cerebrovascular accident) (5) BPH (benign prostatic hyperplasia) (6) HTN (hypertension) (7) Alzheimer's dementia Assessment/Plan respiratory isolation check sputum iv abx ID to see f/u electrolytes titrate fio2 to sat of 92% f/u inflammatory markers monitor BP dvt prophylaxis Kya Carreno MD May 22, 2020 13:04
--- NOTE | 2020-05-22 13:10 | NUR ---
RD ASSESSMENT & RECOMMENDATIONS SEE CARE ACTIVITY FOR COMPLETE ASSESSMENT DAILY ESTIMATED NEEDS: Needs based on Wound, DM, Cardiac 73kg 25-30 kcals/kg 4652-2412 total kcals 1.25-1.5 g protein/kg 91-109 g total protein 25-30 mL/kg 4676-8383 total fluid mLs NUTRITION DIAGNOSIS: * Swallowing difficulty R/T dysphagia as evidenced by PARTS INTERPRETER eval, PARTS INTERPRETER rec for mech soft ground with nectar thick liquids * Increased kcal/pro/micronutrients needs R/T wound healing as evidenced by admitted w/ wounds @ sacrum and BL ankles, pending eval. CURRENT DIET:ELVIA w/ mech soft ground w/ NTL PO DIET RECOMMENDATIONS: ELVIA + CCHO Med (texture per PARTS INTERPRETER) ADDITIONAL RECOMMENDATIONS: * Calibrated bedscale wt for accurate CBW * Monitor PO intake -> add Glucerna BID for now, monitor acceptance * Check A1C for eval of glycemic control * Wound healing: add MVI x 1, Vit C 500mg QD f/up w/ WC eval
--- NOTE | 2020-05-22 14:37 | Consultation ---
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 Admitted for care and management. History is limited secondary to patient's clinical status. According to EMS, SNF nurses told them that patient has been febrile for the past 2 days. T-max 99. He is also been having a dry cough. on admission abnormal labs, ill appearing, pain. surgery called to evaluate and assist with care. Allergies: Coded Allergies: No Known Allergies (Unverified , 04/30/12) COVID-19 Screening Contact w/high risk pt: Yes Experienced COVID-19 symptoms?: Yes COVID-19 symptoms experienced: Fever (T>100.4F or >38C) Medication History Scheduled Alendronate Sodium* (Fosamax*), 70 MG ORAL ONCE A WEEK, (Reported) Amlodipine Besylate (Norvasc), 5 MG ORAL DAILY, (Reported) Aspirin* (Aspir 81*), 81 MG ORAL DAILY, (Reported) Atorvastatin Calcium* (Atorvastatin Calcium*), 10 MG ORAL BEDTIME, (Reported) Cephalexin (Cephalexin), 500 MG ORAL FOUR TIMES A DAY Cranberry Fruit Concentrate (Cranberry), 450 MG PO BID, (Reported) Docusate Sodium* (Colace*), 200 MG ORAL DAILY, (Reported) Donepezil Hcl* (Donepezil Hcl*), 5 MG ORAL DAILY, (Reported) Donepezil Hcl* (Aricept*), 10 MG ORAL DAILY, (Reported) Furosemide* (Lasix*), 20 MG ORAL DAILY, (Reported) Lisinopril (Lisinopril*), 5 MG ORAL DAILY, (Reported) Multivitamin (Multi Vitamin Daily), 1 TAB ORAL DAILY, (Reported) Tamsulosin HCl (Flomax), 0.4 MG ORAL DAILY, (Reported) Scheduled PRN Acetaminophen (Tylenol), 650 MG ORAL Q6H PRN for Fever/Headache/Mild Pain, ( Reported) Guaifenesin (Sabra-Tussin), 15 ML PO EVERY 8 HOURS PRN for For Cough, (Reported) Nitroglycerin (Nitroglycerin), 0.4 MG SL NEEDED PRN for For Pain, (Reported) Miscellaneous Medications Calcium Carbonate/Vitamin D3 (Calcium 500+D Tablet Chew), 1 EACH PO, (Reported) Patient History Limited by: language barrier, age, medical condition History Provided By: Medical Record, PMD Healthcare decision maker N Resuscitation status Advanced Directive on File Past Medical/Surgical History Past Medical/Surgical History: (1) Acute bronchitis (2) 2019 novel coronavirus disease (COVID-19) (3) Gram-negative bacteremia (4) Osteoporosis (5) UTI (urinary tract infection) (6) Altered mental state (7) Alzheimer's dementia (8) Sepsis (9) Acute encephalopathy (10) Severe sepsis (11) Aphasia (12) HTN (hypertension) (13) BPH (benign prostatic hyperplasia) (14) History of CVA (cerebrovascular accident) (15) Multifocal pneumonia Review of Systems Review of Symptoms Review of systems: CONST: ++ fevers or chills, No night sweats PULMONARY: ++ cough, ++ shortness of breath CARDIAC: No chest pain, No palpitations GI: No vomiting, No diarrhea , No melena_or_BRBPR : No dysuria, No hematuria, No discharge NEURO: No new_focal_weakness_or_numbness, No confusion, No vision changes 14 point Review of Systems is otherwise negative except per HPI Physical Exam Physical Exam Physical Exam: GENERAL: Awake, chronically ill-appearing, no acute distress. Hypoxic on room air EYES: Pupils reactive. Conjunctiva clear. Aphasic ENT: External nose and ear appear normal. Oropharynx clear. Head atraumatic. NECK: No thyromegaly. No midline tenderness. LUNGS: Normal respiratory effort. Coarse breath sounds bilaterally. No subcostal retractions. No wheezing. No rales CARDIAC: Regular rate and rhythm. Normal radial pulses bilaterally. No significant pedal edema. ABDOMEN: Soft, nontender, and nondistended. No rebound/guarding. No hepatosplenomegaly. In soiled diaper MSK: Poor muscle tone, contractures with rigidity in extremities. Extremities without asymmetric deformity or swelling. NEUROLOGIC: Awake. Protecting airway. Withdraws to pain in extremities, groans and opens eyes to sternal rub. SKIN: Warm and dry. No cyanosis or urticaria present. Last 24 Hour Vital Signs Date Time Temp Pulse Resp B/P (MAP) Pulse Ox O2 Delivery O2 Flow Rate FiO2 05/22/20 14:01 58 20 90 Nasal Cannula 2.0 28 05/22/20 12:00 59 05/22/20 12:00 98.7 67 20 117/67 (84) 97 05/22/20 09:12 114/73 05/22/20 09:12 57 114/73 05/22/20 09:00 Nasal Cannula 2.0 05/22/20 08:00 57 05/22/20 08:00 98.7 57 18 114/73 (87) 97 05/22/20 04:00 52 05/22/20 04:00 97.3 55 18 102/63 (76) 96 05/22/20 00:00 59 05/22/20 00:00 96.7 59 18 100/59 (73) 96 05/21/20 21:00 Nasal Cannula 2.0 05/21/20 20:00 66 05/21/20 20:00 97.7 57 18 102/57 (72) 94 05/21/20 16:00 96.8 61 19 122/82 (95) 96 05/21/20 16:00 57 Intake and Output 05/21/20 05/22/20 19:00 07:00 # Voids 2 Laboratory Tests Test 05/22/20 08:15 05/22/20 10:10 White Blood Count 8.4 K/UL (4.8-10.8) Red Blood Count 5.42 M/UL (4.70-6.10) Hemoglobin 15.8 G/DL (14.2-18.0) Hematocrit 47.8 % (42.0-52.0) Mean Corpuscular Volume 88 FL (80-99) Mean Corpuscular Hemoglobin 29.2 PG (27.0-31.0) Mean Corpuscular Hemoglobin Concent 33.1 G/DL (32.0-36.0) Red Cell Distribution Width 12.5 % (11.6-14.8) Platelet Count 159 K/UL (150-450) Mean Platelet Volume 7.4 FL (6.5-10.1) Neutrophils (%) (Auto) 64.4 % (45.0-75.0) Lymphocytes (%) (Auto) 24.4 % (20.0-45.0) Monocytes (%) (Auto) 9.8 % (1.0-10.0) Eosinophils (%) (Auto) 0.1 % (0.0-3.0) Basophils (%) (Auto) 1.4 % (0.0-2.0) Sodium Level 142 MMOL/L (136-145) Potassium Level 3.8 MMOL/L (3.5-5.1) Chloride Level 105 MMOL/L (98-107) Carbon Dioxide Level 27 MMOL/L (21-32) Anion Gap 10 mmol/L (5-15) Blood Urea Nitrogen 26 mg/dL (7-18) H Creatinine 1.2 MG/DL (0.55-1.30) Estimat Glomerular Filtration Rate 58.7 mL/min (>60) Glucose Level 118 MG/DL (74-106) H Calcium Level 9.0 MG/DL (8.5-10.1) Phosphorus Level 2.9 MG/DL (2.5-4.9) Magnesium Level 2.4 MG/DL (1.8-2.4) Total Bilirubin 0.4 MG/DL (0.2-1.0) Aspartate Amino Transf (AST/SGOT) 50 U/L (15-37) H Alanine Aminotransferase (ALT/SGPT) 40 U/L (12-78) Alkaline Phosphatase 108 U/L (46-116) C-Reactive Protein, Quantitative 2.1 mg/dL (0.00-0.90) H Total Protein 7.9 G/DL (6.4-8.2) Albumin 2.8 G/DL (3.4-5.0) L Globulin 5.1 g/dL Albumin/Globulin Ratio 0.5 (1.0-2.7) L Erythrocyte Sedimentation Rate 68 MM/HR (0-20) H Height (Feet): 5 Height (Inches): 5.00 Weight (Pounds): 159 Medications Current Medications Medications (Trade) Dose Ordered Sig/Ankush Route PRN Reason Start Time Stop Time Status Last Admin Dose Admin Acetaminophen (Tylenol) 650 mg Q4H PRN ORAL FEVER 05/20/20 17:00 06/19/20 16:59 Albuterol/ Ipratropium (Combivent Respimat) 1 puff Q4H PRN INH Shortness of Breath 05/20/20 17:15 06/19/20 17:14 Amlodipine Besylate (Norvasc) 5 mg DAILY ORAL 05/21/20 09:00 06/20/20 08:59 05/22/20 09:12 Azithromycin 250 mg/Dextrose 275 ml @ 275 mls/hr Q24HRS IV 05/21/20 14:00 05/26/20 13:59 05/21/20 13:09 Barium Sulfate (Varibar Honey) 250 ml NOW PRN MC RAD 05/21/20 12:45 05/24/20 12:38 Barium Sulfate (Varibar [place]) 240 ml NOW PRN MC RAD 05/21/20 12:45 05/24/20 12:38 Barium Sulfate (Varibar Pudding) 230 ml NOW PRN MC RAD 05/21/20 12:45 05/24/20 12:38 Barium Sulfate (Varibar Thin Liquid powder) 148 gm NOW PRN MC RAD 05/21/20 12:45 05/24/20 12:38 Ceftriaxone Sodium 1 gm/ Dextrose 55 ml @ 110 mls/hr Q24H IVPB 05/21/20 14:00 05/28/20 13:59 05/21/20 13:53 Dexamethasone (Decadron) 4 mg DAILY ORAL 05/21/20 09:00 06/20/20 08:59 05/22/20 09:12 Dextrose (Dextrose 50%) 25 ml Q30M PRN IV Hypoglycemia 05/20/20 17:00 08/18/20 16:59 Dextrose (Dextrose 50%) 50 ml Q30M PRN IV Hypoglycemia 05/20/20 17:00 08/18/20 16:59 Donepezil HCl (Aricept) 5 mg DAILY ORAL 05/21/20 09:00 06/20/20 08:59 05/22/20 09:12 Heparin Sodium (Porcine) (Heparin 5000 units/ml) 5,000 units EVERY 12 HOURS SUBQ 05/20/20 21:00 07/04/20 20:59 05/22/20 09:13 Lisinopril (ZestriL) 5 mg DAILY ORAL 05/21/20 09:00 06/20/20 08:59 05/22/20 09:12 Ondansetron HCl (Zofran) 4 mg Q6H PRN IVP Nausea & Vomiting 05/20/20 17:00 06/19/20 16:59 Polyethylene Glycol (Miralax) 17 gm DAILYPRN PRN ORAL Constipation 05/20/20 17:00 06/19/20 16:59 Promethazine HCl/ Codeine (Phenergan with Codeine) 5 ml Q6H PRN ORAL cough 05/20/20 17:00 06/19/20 16:59 Tamsulosin HCl (Flomax) 0.4 mg DAILY ORAL 05/21/20 09:00 06/20/20 08:59 05/22/20 09:12 Assessment/Plan Problem List: (1) Acute bronchitis ICD Codes: J20.9 - Acute bronchitis, unspecified SNOMED: 12841422 (2) 2019 novel coronavirus disease (COVID-19) Assessment & Plan: ++ as per ID pulm input appreciated ICD Codes: U07.1 - COVID-19 SNOMED: 873446916 (3) Gram-negative bacteremia ICD Codes: R78.81 - Bacteremia SNOMED: 508206622038 (4) Osteoporosis ICD Codes: M81.0 - Age-related osteoporosis without current pathological fracture SNOMED: 78780809 (5) UTI (urinary tract infection) ICD Codes: N39.0 - Urinary tract infection, site not specified SNOMED: 07117559 (6) Altered mental state (7) Alzheimer's dementia ICD Codes: G30.9 - Alzheimer's disease, unspecified SNOMED: 75951527 (8) Sepsis ICD Codes: A41.9 - Sepsis, unspecified organism SNOMED: 54526093 (9) Acute encephalopathy ICD Codes: G93.40 - Encephalopathy, unspecified SNOMED: 9559499 (10) Severe sepsis ICD Codes: A41.9 - Sepsis, unspecified organism; R65.20 - Severe sepsis without septicshock SNOMED: 67595070 (11) Aphasia ICD Codes: R47.01 - Aphasia; J12.89 - Other viral pneumonia SNOMED: 00426756, 460108413 (12) HTN (hypertension) ICD Codes: I10 - Essential (primary) hypertension SNOMED: 83603154 (13) BPH (benign prostatic hyperplasia) ICD Codes: N40.0 - Benign prostatic hyperplasia without lower urinary tract symptoms SNOMED: 056359621, 729307313 (14) History of CVA (cerebrovascular accident) ICD Codes: Z86.73 - Personal history of transient ischemic attack (TIA), and cerebral infarction without residual deficits; J12.89 - Other viral pneumonia SNOMED: 496308947, 356593352 (15) Multifocal pneumonia ICD Codes: J18.9 - Pneumonia, unspecified organism; J12.89 - Other viral pneumonia SNOMED: 102308522, 659960170 (16) Decubitus skin ulcer Assessment & Plan: 79-year-old male presented to [facility] covered positive respiratory fevers admitted further care and management which time identified to have multiple decubitus skin ulcers and scrotal edema. Patient identified to have a stage III sacral buttock decubitus ulcer with periwound erythema and breakdown. Incontinence associated dermatitis identified. Care plan initiated after patient evaluation. Will follow with recommendations. Thank you DAILY ESTIMATED NEEDS: Needs based on Wound, DM, Cardiac 73kg 25-30 kcals/kg 8928-0643 total kcals 1.25-1.5 g protein/kg 91-109 g total protein 25-30 mL/kg 3577-8963 total fluid mLs NUTRITION DIAGNOSIS: * Swallowing difficulty R/T dysphagia as evidenced by MACHINE LEARNING INTERN eval, MACHINE LEARNING INTERN rec for mech soft ground with nectar thick liquids * Increased kcal/pro/micronutrients needs R/T wound healing as evidenced by admitted w/ wounds @ sacrum and BL ankles, pending eval. CURRENT DIET:ELVIA w/ mech soft ground w/ NTL PO DIET RECOMMENDATIONS: ELVIA + CCHO Med (texture per MACHINE LEARNING INTERN) ADDITIONAL RECOMMENDATIONS: * Calibrated bedscale wt for accurate CBW * Monitor PO intake -> add Glucerna BID for now, monitor acceptance * Check A1C for eval of glycemic control * Wound healing: add MVI x 1, Vit C 500mg QD f/up w/ WC eval ICD Codes: L89.90 - Pressure ulcer of unspecified site, unspecified stage SNOMED: 187437717 (17) Scrotal edema Assessment & Plan: Patient identified to have significant scrotal edema potential cellulitis on admission. No abscess identified. Tile place entering the scrotum. We will monitor over the course of the next few days ICD Codes: N50.89 - Other specified disorders of the male genital organs SNOMED: 10523312 Rojas Jerome May 22, 2020 14:37
[2020-05-22] MEDS: Azithromycin 250 MG in D5W 275 ML IV SCH (15:04)
[2020-05-22] MEDS: cefTRIAXone 1 GM in D5W 55 ML IVPB SCH (15:05)
--- NOTE | 2020-05-22 15:28 | Diagnostic Imaging Report ---
Indication: Shortness of breath Technique: One view of the chest Comparison: 05/20/2020 Findings: The heart is enlarged. Suboptimal inspiration. No acute infiltrates, effusions, or congestion. Right shoulder prosthesis again demonstrated. No significant interim change Impression: Cardiomegaly. No definite acute process
--- NOTE | 2020-05-22 15:51 | NUR ---
CASE MANAGEMENT: INITIAL REVIEW 79YR OLD MALE BIBA FROM [facility] CC:FEVER PMHX: CVA ; COPD , HTN , DEMENTIA SI:HYPOXIA . COVID-19 + PNA MULTIFORCAL . 99.8 83 18 128/73 93% 2L NC IS:IV ROCEPHIN X1 IV ZITHROMAX IV DECADRON X1 CHEST X-RAY -Bibasilar atelectasis. No acute process otherwise \: 2E TELE UNIT DCP: HOME WHEN STABLE PLAN: IV ABX CASE MANAGEMENT: INITIAL REVIEW 05/22/20 SI:HYPOXIA . COVID-19 + PNA MULTIFORCAL . 97.3 52 18 102/63 96% 2L NC IS:IV ROCEPHIN QD IV ZITHROMAX QD IV DECADRON QD NORVASC PO QD HEPARIN SQ BID \: 2E TELE UNIT DCP: HOME WHEN STABLE PLAN: CONT IV ABX
[2020-05-22 16:00] VITALS: BP 118/76
--- NOTE | 2020-05-22 18:58 | NUR ---
NURSE HAND-OFF REPORT: Important Events on Shift:Patient's appetite is decreased. Patient Status: Stable Diet: No added salt, mechanical soft with nectar thick liquid. Crush meds and give with apple sauce, and apple thickened drink. Pending Orders: N/A Pending Results/Labs:am labs. Pending MD notification:N/A Latest Vital Signs: Temperature 96.7 , Pulse 56 , B/P 118 /76 , Respiratory Rate 19 , O2 SAT 96 , Nasal Cannula, O2 Flow Rate 2.0 . Vital Sign Comment: N/A, patient removes nasal cannula, saturation is 96 on room air. EKG Rhythm: Sinus Bradycardia Rhythm change?: N MD Notified?: - MD Response: Latest Gonzalez Fall Score: 50 Fall Risk: High Risk Safety Measures: Call light Within Reach, Bed Alarm Zone 1, Side Rails Side Rails x3, Bed position Low and Locked. Fall Precautions: Yellow Socks Yellow Gown Door Sign Patient Fall Education Report given to oncoming staff. Addendum: 05/22/20 at 1910 by ANDI RASMUSSEN RN Report given to Leanne Culver RN.
--- NOTE | 2020-05-22 19:25 | NUR ---
NURSE NOTES: RECEIVED REPORT FROM FLORES ROCKWELL. AOX1, AROUSABLE TO VOICE AND TACTILE STIMULI ONLY, NON-VERBAL, UNABLE TO FOLLOW COMMANDS. NO S/SX OF PAIN OR DISCOMFORT AT THIS TIME. BREATHING IS EVEN AND UNLABORED ON 2LPM VIA NASAL CANNULA, NO S/SX OF DISTRESS NOTED- PATIENT NOTED TO BE REMOVING IT DESPITE INSTRUCTION TO BE LEFT ON. IV SITE ON LEFT WRIST PATENT, INTACT, AND ASYMPTOMATIC. CONDOM CATHETER IN PLACE, DRAINING WELL TO GRAVITY WITH URINE CLEAR AND DARK YELLOW IN COLOR. FALL AND ASPIRATION PRECAUTIONS IN PLACE. BED LOCKED AND IN LOWEST POSITION, SIDERAILS UP X 3. CALL LIGHT WITHIN REACH. WILL CONTINUE TO MONITOR FOR ANY CHANGES.
[2020-05-22] MEDS ORDERED: ASPIRIN81 MG ORAL (20:45)
[2020-05-22] MEDS ORDERED: DONEPEZIL HCL10 MG ORAL (20:45)
[2020-05-22] MEDS ORDERED: POTASSIUM CHLO10 MEQ ORAL (20:45)
[2020-05-22] MEDS ORDERED: VITAMIN C500 M1 ORAL (20:45)
[2020-05-22] MEDS ORDERED: BACLOFEN5 MG PO (20:45)
[2020-05-22] MEDS ORDERED: MULTIVITAMINS1 EAC8 ORAL (20:45)
[2020-05-22] MEDS ORDERED: ATORVASTATIN CA10 MG ORAL (20:45)
[2020-05-22] MEDS ORDERED: ZINC SULFATE220 M1 ORAL (20:45)
[2020-05-22] MEDS ORDERED: AMLODIPINE BESYL5 MG ORAL (20:45)
[2020-05-22 21:00] VITALS: BP 110/64
--- NOTE | 2020-05-22 21:11 | Internal Med Progress Note ---
Subjective Physician Name Ahsan Hodges Attending Physician Ahsan Hodges MD Current Medications Medications (Trade) Dose Ordered Sig/Ankush Route PRN Reason Start Time Stop Time Status Last Admin Dose Admin Acetaminophen (Tylenol) 650 mg Q4H PRN ORAL FEVER 05/20/20 17:00 06/19/20 16:59 Albuterol/ Ipratropium (Combivent Respimat) 1 puff Q4H PRN INH Shortness of Breath 05/20/20 17:15 06/19/20 17:14 Amlodipine Besylate (Norvasc) 5 mg DAILY ORAL 05/21/20 09:00 06/20/20 08:59 05/22/20 09:12 Ascorbic Acid (Vitamin C) 500 mg DAILY ORAL 05/23/20 09:00 06/22/20 08:59 Azithromycin 250 mg/Dextrose 275 ml @ 275 mls/hr Q24HRS IV 05/21/20 14:00 05/26/20 13:59 05/22/20 15:04 Barium Sulfate (Varibar Honey) 250 ml NOW PRN MC RAD 05/21/20 12:45 05/24/20 12:38 Barium Sulfate (Varibar [place]) 240 ml NOW PRN MC RAD 05/21/20 12:45 05/24/20 12:38 Barium Sulfate (Varibar Pudding) 230 ml NOW PRN MC RAD 05/21/20 12:45 05/24/20 12:38 Barium Sulfate (Varibar Thin Liquid powder) 148 gm NOW PRN MC RAD 05/21/20 12:45 05/24/20 12:38 Ceftriaxone Sodium 1 gm/ Dextrose 55 ml @ 110 mls/hr Q24H IVPB 05/21/20 14:00 05/28/20 13:59 05/22/20 15:05 Dexamethasone (Decadron) 4 mg DAILY ORAL 05/21/20 09:00 06/20/20 08:59 05/22/20 09:12 Dextrose (Dextrose 50%) 25 ml Q30M PRN IV Hypoglycemia 05/20/20 17:00 08/18/20 16:59 Dextrose (Dextrose 50%) 50 ml Q30M PRN IV Hypoglycemia 05/20/20 17:00 08/18/20 16:59 Donepezil HCl (Aricept) 5 mg DAILY ORAL 05/21/20 09:00 06/20/20 08:59 05/22/20 09:12 Heparin Sodium (Porcine) (Heparin 5000 units/ml) 5,000 units EVERY 12 HOURS SUBQ 05/20/20 21:00 07/04/20 20:59 05/22/20 09:13 Lisinopril (ZestriL) 5 mg DAILY ORAL 05/21/20 09:00 06/20/20 08:59 05/22/20 09:12 Multivitamins (Multivitamins) 1 tab DAILY ORAL 05/23/20 09:00 06/22/20 08:59 Ondansetron HCl (Zofran) 4 mg Q6H PRN IVP Nausea & Vomiting 05/20/20 17:00 06/19/20 16:59 Polyethylene Glycol (Miralax) 17 gm DAILYPRN PRN ORAL Constipation 05/20/20 17:00 06/19/20 16:59 Promethazine HCl/ Codeine (Phenergan with Codeine) 5 ml Q6H PRN ORAL cough 05/20/20 17:00 06/19/20 16:59 Tamsulosin HCl (Flomax) 0.4 mg DAILY ORAL 05/21/20 09:00 06/20/20 08:59 05/22/20 09:12 Allergies: Coded Allergies: No Known Allergies (Unverified , 04/30/12) Subjective awake, responsive, mild shortness of breath, in [address] room. Objective Last Vital Signs Date Time Temp Pulse Resp B/P (MAP) Pulse Ox O2 Delivery O2 Flow Rate FiO2 05/22/20 16:00 96.7 76 19 118/76 (90) 96 05/22/20 14:01 Nasal Cannula 2.0 28 Laboratory Tests Test 05/22/20 08:15 05/22/20 10:10 White Blood Count 8.4 K/UL (4.8-10.8) Red Blood Count 5.42 M/UL (4.70-6.10) Hemoglobin 15.8 G/DL (14.2-18.0) Hematocrit 47.8 % (42.0-52.0) Mean Corpuscular Volume 88 FL (80-99) Mean Corpuscular Hemoglobin 29.2 PG (27.0-31.0) Mean Corpuscular Hemoglobin Concent 33.1 G/DL (32.0-36.0) Red Cell Distribution Width 12.5 % (11.6-14.8) Platelet Count 159 K/UL (150-450) Mean Platelet Volume 7.4 FL (6.5-10.1) Neutrophils (%) (Auto) 64.4 % (45.0-75.0) Lymphocytes (%) (Auto) 24.4 % (20.0-45.0) Monocytes (%) (Auto) 9.8 % (1.0-10.0) Eosinophils (%) (Auto) 0.1 % (0.0-3.0) Basophils (%) (Auto) 1.4 % (0.0-2.0) Sodium Level 142 MMOL/L (136-145) Potassium Level 3.8 MMOL/L (3.5-5.1) Chloride Level 105 MMOL/L (98-107) Carbon Dioxide Level 27 MMOL/L (21-32) Anion Gap 10 mmol/L (5-15) Blood Urea Nitrogen 26 mg/dL (7-18) H Creatinine 1.2 MG/DL (0.55-1.30) Estimat Glomerular Filtration Rate 58.7 mL/min (>60) Glucose Level 118 MG/DL (74-106) H Calcium Level 9.0 MG/DL (8.5-10.1) Phosphorus Level 2.9 MG/DL (2.5-4.9) Magnesium Level 2.4 MG/DL (1.8-2.4) Total Bilirubin 0.4 MG/DL (0.2-1.0) Aspartate Amino Transf (AST/SGOT) 50 U/L (15-37) H Alanine Aminotransferase (ALT/SGPT) 40 U/L (12-78) Alkaline Phosphatase 108 U/L (46-116) C-Reactive Protein, Quantitative 2.1 mg/dL (0.00-0.90) H Total Protein 7.9 G/DL (6.4-8.2) Albumin 2.8 G/DL (3.4-5.0) L Globulin 5.1 g/dL Albumin/Globulin Ratio 0.5 (1.0-2.7) L Erythrocyte Sedimentation Rate 68 MM/HR (0-20) H Microbiology Date/Time Source Procedure Growth Status 05/20/20 14:30 Blood Blood Culture - Preliminary NO GROWTH AFTER 24 HOURS Resulted 05/20/20 14:15 Blood Blood Culture - Preliminary Gram Positive Cocci Resulted 05/20/20 14:30 Nasopharynx SARS-CoV-2 RdRp Gene Assay - Final Complete 05/20/20 15:02 Urine,Clean Catch Urine Culture - Final NO GROWTH AFTER 48 HOURS Complete 05/20/20 15:10 Rectum VRE Culture - Final NO VANCOMYCIN RESISTANT ENTEROCOCCUS ... Complete Intake and Output 05/21/20 05/22/20 19:00 07:00 # Voids 2 Objective General: No acute distress, awake and responsive with open eyes, unable to follow command. HEENT: NCAT, sclera anicteric, PERRL. Neck: Supple, no significant jugular venous distention, Lungs: fair respiratory effort, coarse breath sound, no Wheeze or Rales. Heart: Regular rate and rhythm, normal S1/S2, no murmurs, distant heart sounds. Abdomen: soft, nontender, nondistended. Normoactive bowel sounds, obesity. Extremities: No cyanosis , clubbing or edema. Neuro: awake, responsive with open his eyes, cannot follow commands, contractures with rigidity in extremities. Skin: warm, no rash. Assessment/Plan Assessment/Plan ASSESSMENT: This is a 79-year-old male. 1. Fever. 2. Acute hypoxemic respiratory failure. 3. COVID-19 Pneumonia. 4. Congestive heart failure. 5. Hypertension. 6. Benign prostatic hypertrophy. 7. Osteoporosis. 8. Alzheimer dementia. 9. Ventriculomegaly. 10. Diabetes type 2. 11. Cerebrovascular disease. 12. Chronic renal failure. 13. Dysphagia. 14. Hypercholesterolemia. 15. Gastroesophageal reflux disease. TREATMENT: 1. Fever/dyspnea/COVID-19 positive. An infectious disease consultation has been obtained with Dr. Cho. A pulmonary consultation has been obtained with Dr. Kya Carreno. The patient has been started empirically on azithromycin and ceftriaxone for probable underlying bacterial pneumonia. The patient has been started on Decadron. We will follow recommendation of Infectious Disease and Pulmonary. 2. Hypertension. Continue amlodipine as above. 3. Benign prostatic hypertrophy. Continue Flomax as above. 4. Osteoporosis. Continue Fosamax as above. 5. Alzheimer dementia. Continue Aricept as above. 6. Ventriculomegaly. 7. Diabetes type 2. 8. Cerebrovascular disease, status post cerebrovascular accident. 9. Chronic renal failure. 10. Dysphagia. 11. Hypercholesterolemia. Continue atorvastatin as above. 12. Gastroesophageal reflux disease. CODE STATUS: Full code DVT prophylaxis: Heparin subcu. Decadron 6 mg IV daily. Monitor blood glucose level closely Ahsan Hodges MD May 22, 2020 21:11
--- NOTE | 2020-05-22 22:00 | NUR ---
NURSE NOTES: ATTEMPTED TO PROVIDE ORAL CARE, HOWEVER PATIENT REFUSED AND KEPT MOUTH CLOSED DESPITE EXPLAINING PURPOSE/SIGNIFICANCE.
--- NOTE | 2020-05-22 22:15 | NUR ---
NURSE NOTES: S/W CHAD FROM [facility] REGARDING PATIENT'S VACCINATION HISTORY; ACCORDING TO CHAD, THEIR RECORDS SHOW PATIENT RECEIVED FLU VACCINE 06/2019, AND PNA VACCINE 08/2017
[2020-05-23] VITALS: BP 140/76
[2020-05-23 04:00] VITALS: BP 133/64
--- NOTE | 2020-05-23 07:20 | NUR ---
NURSE HAND-OFF REPORT: Important Events on Shift: RESISTIVE TO CARE, FOR CXR TODAY Patient Status: STABLE Diet: ELVIA, MECHANICAL SOFT WITH NECTAR THICK LIQUIDS Pending Orders: N/A Pending Results/Labs:9/12 AM LABS Pending MD notification: N/A Latest Vital Signs: Temperature 99.0 , Pulse 76 , B/P 133 /64 , Respiratory Rate 20 , O2 SAT 95 , Room Air, O2 Flow Rate 2.0 . Vital Sign Comment: STABLE EKG Rhythm: Sinus Rhythm Rhythm change?: N MD Notified?: - MD Response: Latest Gonzalez Fall Score: 35 Fall Risk: Medium Risk Safety Measures: Call light Within Reach, Bed Alarm Zone 1, Side Rails Side Rails x3, Bed position Low and Locked. Fall Precautions: Yellow Socks Yellow Gown Door Sign Patient Fall Education Report given to FLORES SERNA.
[2020-05-23 07:45] LABS: BASOPHILS % (AUTO) 1.7 % (0.0-2.0); EOSINOPHILS % (AUTO) 0.2 % (0.0-3.0); HEMATOCRIT 48.5 % (42.0-52.0); HEMOGLOBIN 15.8 G/DL (14.2-18.0); LYMPHOCYTES % (AUTO) 14.8 % (20.0-45.0); MEAN CORPUSCULAR VOLUME 88 FL (80-99); MONOCYTES % (AUTO) 12.5 % (1.0-10.0); NEUTROPHILS % (AUTO) 70.9 % (45.0-75.0); PLATELET COUNT 167 K/UL (150-450); RED BLOOD COUNT 5.54 M/UL (4.70-6.10); RED CELL DISTRIBUTION WIDTH 12.3 % (11.6-14.8); WHITE BLOOD COUNT 5.7 K/UL (4.8-10.8)
[2020-05-23 08:00] VITALS: BP 147/54
[2020-05-23 08:17] LABS: ALBUMIN 2.8 G/DL (3.4-5.0); ALBUMIN/GLOBULIN RATIO 0.5 (1.0-2.7); BILIRUBIN,TOTAL 0.4 MG/DL (0.2-1.0); CALCIUM 8.5 MG/DL (8.5-10.1); CREATININE 1.3 MG/DL (0.55-1.30); PHOSPHORUS 2.5 MG/DL (2.5-4.9); POTASSIUM 3.5 MMOL/L (3.5-5.1)
--- NOTE | 2020-05-23 09:00 | Pulmonology Progress Note ---
Subjective ROS Limited/Unobtainable: No Constitutional: Reports: no symptoms HEENT: Repors: no symptoms Respiratory: Reports: no symptoms Allergies: Coded Allergies: No Known Allergies (Unverified , 04/30/12) Objective Last 24 Hour Vital Signs Date Time Temp Pulse Resp B/P (MAP) Pulse Ox O2 Delivery O2 Flow Rate FiO2 05/23/20 08:00 97.9 70 19 147/54 (85) 97 05/23/20 04:00 76 05/23/20 04:00 99.0 80 20 133/64 (87) 95 05/23/20 00:00 98.6 71 20 140/76 (97) 96 05/23/20 00:00 65 05/22/20 21:00 98.6 64 21 110/64 (79) 96 05/22/20 21:00 Room Air 05/22/20 21:00 66 05/22/20 16:00 96.7 76 19 118/76 (90) 96 05/22/20 16:00 56 05/22/20 14:01 58 20 90 Nasal Cannula 2.0 28 05/22/20 12:00 59 05/22/20 12:00 98.7 67 20 117/67 (84) 97 05/22/20 09:12 114/73 05/22/20 09:12 57 114/73 05/22/20 09:00 Nasal Cannula 2.0 Intake and Output 05/22/20 05/23/20 19:00 07:00 Intake Total 330 ml Output Total 550 ml Balance 330 ml -550 ml IV Total 330 ml Output Urine Total 550 ml # Voids 1 General Appearance: WD/WN HEENT: normocephalic, atraumatic Respiratory: chest wall non-tender, lungs clear, respiratory distress Cardiovascular: normal peripheral pulses, normal rate Abdomen: normal bowel sounds, soft, non tender Genitourinary: normal external genitalia Extremities: no cyanosis 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 Complete 05/20/20 14:30 Nasopharynx SARS-CoV-2 RdRp Gene Assay - Final Complete 05/20/20 15:02 Urine,Clean Catch Urine Culture - Final NO GROWTH AFTER 48 HOURS Complete 05/20/20 15:10 Rectum VRE Culture - Final NO VANCOMYCIN RESISTANT ENTEROCOCCUS ... Complete Laboratory Tests 05/22/20 10:10: Erythrocyte Sedimentation Rate 68H 05/23/20 07:10: Erythrocyte Sedimentation Rate [Pending], White Blood Count 5.7, Red Blood Count 5.54, Hemoglobin 15.8, Hematocrit 48.5, Mean Corpuscular Volume 88, Mean Corpuscular Hemoglobin 28.6, Mean Corpuscular Hemoglobin Concent 32.6, Red Cell Distribution Width 12.3, Platelet Count 167, Mean Platelet Volume 8.2, Neutrophils (%) (Auto) 70.9, Lymphocytes (%) (Auto) 14.8L, Monocytes (%) (Auto) 12.5H, Eosinophils (%) (Auto) 0.2, Basophils (%) (Auto) 1.7, Sodium Level 140, Potassium Level 3.5, Chloride Level 105, Carbon Dioxide Level 24, Anion Gap 11, Blood Urea Nitrogen 20H, Creatinine 1.3, Estimat Glomerular Filtration Rate 53.5 , Glucose Level 113H, Calcium Level 8.5, Phosphorus Level 2.5, Magnesium Level 2.1, Total Bilirubin 0.4, Aspartate Amino Transf (AST/SGOT) 68H, Alanine Aminotransferase (ALT/SGPT) 49, Alkaline Phosphatase 110, C-Reactive Protein, Quantitative 2.1H, Total Protein 7.9, Albumin 2.8L, Globulin 5.1, Albumin/ Globulin Ratio 0.5L Current Medications Medications (Trade) Dose Ordered Sig/Ankush Route PRN Reason Start Time Stop Time Status Last Admin Dose Admin Acetaminophen (Tylenol) 650 mg Q4H PRN ORAL FEVER 05/20/20 17:00 06/19/20 16:59 Albuterol/ Ipratropium (Combivent Respimat) 1 puff Q4H PRN INH Shortness of Breath 05/20/20 17:15 06/19/20 17:14 Amlodipine Besylate (Norvasc) 5 mg DAILY ORAL 05/21/20 09:00 06/20/20 08:59 05/22/20 09:12 Ascorbic Acid (Vitamin C) 500 mg DAILY ORAL 05/23/20 09:00 06/22/20 08:59 Azithromycin 250 mg/Dextrose 275 ml @ 275 mls/hr Q24HRS IV 05/21/20 14:00 05/26/20 13:59 05/22/20 15:04 Barium Sulfate (Varibar Honey) 250 ml NOW PRN RAD 05/21/20 12:45 05/24/20 12:38 Barium Sulfate (Varibar [place]) 240 ml NOW PRN RAD 05/21/20 12:45 05/24/20 12:38 Barium Sulfate (Varibar Pudding) 230 ml NOW PRN RAD 05/21/20 12:45 05/24/20 12:38 Barium Sulfate (Varibar Thin Liquid powder) 148 gm NOW PRN RAD 05/21/20 12:45 05/24/20 12:38 Ceftriaxone Sodium 1 gm/ Dextrose 55 ml @ 110 mls/hr Q24H IVPB 05/21/20 14:00 05/28/20 13:59 05/22/20 15:05 Dexamethasone (Decadron) 6 mg DAILY ORAL 05/23/20 09:00 06/01/20 08:59 Dextrose (Dextrose 50%) 25 ml Q30M PRN IV Hypoglycemia 05/20/20 17:00 08/18/20 16:59 Dextrose (Dextrose 50%) 50 ml Q30M PRN IV Hypoglycemia 05/20/20 17:00 08/18/20 16:59 Donepezil HCl (Aricept) 5 mg DAILY ORAL 05/21/20 09:00 06/20/20 08:59 05/22/20 09:12 Heparin Sodium (Porcine) (Heparin 5000 units/ml) 5,000 units EVERY 12 HOURS SUBQ 05/20/20 21:00 07/04/20 20:59 05/22/20 21:23 Lisinopril (ZestriL) 5 mg DAILY ORAL 05/21/20 09:00 06/20/20 08:59 05/22/20 09:12 Multivitamins (Multivitamins) 1 tab DAILY ORAL 05/23/20 09:00 06/22/20 08:59 Ondansetron HCl (Zofran) 4 mg Q6H PRN IVP Nausea & Vomiting 05/20/20 17:00 06/19/20 16:59 Polyethylene Glycol (Miralax) 17 gm DAILYPRN PRN ORAL Constipation 05/20/20 17:00 06/19/20 16:59 Promethazine HCl/ Codeine (Phenergan with Codeine) 5 ml Q6H PRN ORAL cough 05/20/20 17:00 06/19/20 16:59 Tamsulosin HCl (Flomax) 0.4 mg DAILY ORAL 05/21/20 09:00 06/20/20 08:59 05/22/20 09:12 Assessment/Plan Problems: (1) Gram-negative bacteremia (2) 2019 novel coronavirus disease (COVID-19) (3) Acute bronchitis (4) History of CVA (cerebrovascular accident) (5) BPH (benign prostatic hyperplasia) (6) HTN (hypertension) (7) Alzheimer's dementia Assessment/Plan respiratory isolation check sputum iv abx ID to see f/u electrolytes titrate fio2 to sat of 92% f/u inflammatory markers monitor BP dvt prophylaxis Kya Carreno MD May 23, 2020 09:00
--- NOTE | 2020-05-23 09:02 | Diagnostic Imaging Report ---
EXAM: XR Chest, 1 View CLINICAL HISTORY: DYSPNEA TECHNIQUE: Frontal view of the chest. COMPARISON: Chest radiograph May 22, 2020 FINDINGS/IMPRESSION: Left lower lung/retrocardiac opacity which is similar in appearance to the previous study from May 22, 2020. Consider correlation with lateral view. Left base atelectasis. Chronically increased interstitial markings. No pleural effusion or pneumothorax. Cardiomegaly. Calcified aorta. Left total shoulder arthroplasty.
[2020-05-23] MEDS: Donepezil 5mg Tab ORAL SCH (09:04)
[2020-05-23] MEDS: Tamsulosin 0.4mg cap ORAL SCH (09:05)
[2020-05-23] MEDS: Ascorbic Acid 500mg tab ORAL SCH (09:05)
[2020-05-23] MEDS: Lisinopril 2.5mg tab ORAL SCH (09:05)
[2020-05-23] MEDS: Heparin 5000 units/ml inj SUBQ SCH ×2 (09:06→21:00)
[2020-05-23 12:00] VITALS: BP 136/74
--- NOTE | 2020-05-23 12:02 | Surgery Progress Note ---
Surgery Progress Note Subjective Additional Comments afebrile HD stable labs improved comfortable no complaints Objective Last 24 Hour Vital Signs Date Time Temp Pulse Resp B/P (MAP) Pulse Ox O2 Delivery O2 Flow Rate FiO2 05/23/20 09:05 147/54 05/23/20 09:05 70 147/54 05/23/20 08:00 97.9 70 19 147/54 (85) 97 05/23/20 04:00 76 05/23/20 04:00 99.0 80 20 133/64 (87) 95 05/23/20 00:00 98.6 71 20 140/76 (97) 96 05/23/20 00:00 65 05/22/20 21:00 98.6 64 21 110/64 (79) 96 05/22/20 21:00 Room Air 05/22/20 21:00 66 05/22/20 16:00 96.7 76 19 118/76 (90) 96 05/22/20 16:00 56 05/22/20 14:01 58 20 90 Nasal Cannula 2.0 28 I&O Intake and Output 05/22/20 05/23/20 19:00 07:00 Intake Total 330 ml Output Total 550 ml Balance 330 ml -550 ml IV Total 330 ml Output Urine Total 550 ml # Voids 1 Dressing: saturated Cardiovascular: RSR Respiratory: decreased breath sounds Abdomen: soft, non-tender, absent bowel sounds Extremities: no edema, no tenderness, no cyanosis, pulses, other Laboratory Tests Test 05/23/20 07:10 White Blood Count 5.7 K/UL (4.8-10.8) Red Blood Count 5.54 M/UL (4.70-6.10) Hemoglobin 15.8 G/DL (14.2-18.0) Hematocrit 48.5 % (42.0-52.0) Mean Corpuscular Volume 88 FL (80-99) Mean Corpuscular Hemoglobin 28.6 PG (27.0-31.0) Mean Corpuscular Hemoglobin Concent 32.6 G/DL (32.0-36.0) Red Cell Distribution Width 12.3 % (11.6-14.8) Platelet Count 167 K/UL (150-450) Mean Platelet Volume 8.2 FL (6.5-10.1) Neutrophils (%) (Auto) 70.9 % (45.0-75.0) Lymphocytes (%) (Auto) 14.8 % (20.0-45.0) L Monocytes (%) (Auto) 12.5 % (1.0-10.0) H Eosinophils (%) (Auto) 0.2 % (0.0-3.0) Basophils (%) (Auto) 1.7 % (0.0-2.0) Erythrocyte Sedimentation Rate 66 MM/HR (0-20) H Sodium Level 140 MMOL/L (136-145) Potassium Level 3.5 MMOL/L (3.5-5.1) Chloride Level 105 MMOL/L (98-107) Carbon Dioxide Level 24 MMOL/L (21-32) Anion Gap 11 mmol/L (5-15) Blood Urea Nitrogen 20 mg/dL (7-18) H Creatinine 1.3 MG/DL (0.55-1.30) Estimat Glomerular Filtration Rate 53.5 mL/min (>60) Glucose Level 113 MG/DL (74-106) H Calcium Level 8.5 MG/DL (8.5-10.1) Phosphorus Level 2.5 MG/DL (2.5-4.9) Magnesium Level 2.1 MG/DL (1.8-2.4) Total Bilirubin 0.4 MG/DL (0.2-1.0) Aspartate Amino Transf (AST/SGOT) 68 U/L (15-37) H Alanine Aminotransferase (ALT/SGPT) 49 U/L (12-78) Alkaline Phosphatase 110 U/L (46-116) C-Reactive Protein, Quantitative 2.1 mg/dL (0.00-0.90) H Total Protein 7.9 G/DL (6.4-8.2) Albumin 2.8 G/DL (3.4-5.0) L Globulin 5.1 g/dL Albumin/Globulin Ratio 0.5 (1.0-2.7) L Plan Problems: (1) Acute bronchitis (2) 2019 novel coronavirus disease (COVID-19) Assessment & Plan: ++ as per ID pulm input appreciated (3) Gram-negative bacteremia (4) Osteoporosis (5) UTI (urinary tract infection) (6) Altered mental state (7) Alzheimer's dementia (8) Sepsis (9) Acute encephalopathy (10) Severe sepsis (11) Aphasia (12) HTN (hypertension) (13) BPH (benign prostatic hyperplasia) (14) History of CVA (cerebrovascular accident) (15) Multifocal pneumonia (16) Decubitus skin ulcer Assessment & Plan: 79-year-old male presented to [facility] covered positive respiratory fevers admitted further care and management which time identified to have multiple decubitus skin ulcers and scrotal edema. Patient identified to have a stage III sacral buttock decubitus ulcer with periwound erythema and breakdown. Incontinence associated dermatitis identified. Care plan initiated after patient evaluation. Will follow with recommendations. Thank you DAILY ESTIMATED NEEDS: Needs based on Wound, DM, Cardiac 73kg 25-30 kcals/kg [id number] total kcals 1.25-1.5 g protein/kg 91-109 g total protein 25-30 mL/kg 7524-0975 total fluid mLs NUTRITION DIAGNOSIS: * Swallowing difficulty R/T dysphagia as evidenced by CUSTOMER ACCOUNTS ADVISOR eval, CUSTOMER ACCOUNTS ADVISOR rec for mech soft ground with nectar thick liquids * Increased kcal/pro/micronutrients needs R/T wound healing as evidenced by admitted w/ wounds @ sacrum and BL ankles, pending eval. CURRENT DIET:ELVIA w/ mech soft ground w/ NTL PO DIET RECOMMENDATIONS: ELVIA + CCHO Med (texture per CUSTOMER ACCOUNTS ADVISOR) ADDITIONAL RECOMMENDATIONS: * Calibrated bedscale wt for accurate CBW * Monitor PO intake -> add Glucerna BID for now, monitor acceptance * Check A1C for eval of glycemic control * Wound healing: add MVI x 1, Vit C 500mg QD f/up w/ WC eval (17) Scrotal edema Assessment & Plan: Patient identified to have significant scrotal edema potential cellulitis on admission. No abscess identified. Towel placed under the scrotum. We will monitor over the course of the next few days Rojas Jerome May 23, 2020 12:02
--- NOTE | 2020-05-23 12:47 | NUR ---
CARDIOLOGY ECHO REPORT: Technically difficult study due to poor acoustic windows and breating problem. Apical views are taken at Subcostal area. M-mode measurements of left ventricle not obtainable due to cardiac position (angle). Study quality precludes accurate assessment of regional wall motion to extent visualized. Normal left ventricular chamber size, systolic function and wall motion. Left ventricular ejection fraction estimated to be 55 %. Anterior Echo-free space, may be due to pericardial fat or effusion. Mild focal aortic valve sclerosis with adequate cusp excursion. Mildly thickened mitral valve leaflets with normal excursion. Mild mitral annulus and aortic root calcification. Pulmonic valve not well visualized. Normal tricuspid valve structure. Trace tricuspid regurgitation. Tricuspid systolic velocities suggests peak right ventricular systolic pressure of 14 mmHg.
[2020-05-23] MEDS: Azithromycin 250 MG in D5W 275 ML IV SCH (14:00)
[2020-05-23] MEDS: cefTRIAXone 1 GM in D5W 55 ML IVPB SCH (14:00)
--- NOTE | 2020-05-23 14:32 | Internal Med Progress Note ---
Subjective Date of Service: May 23, 2020 Physician Name Dano Groves Attending Physician Ahsan Hodges MD Current Medications Medications (Trade) Dose Ordered Sig/Ankush Route PRN Reason Start Time Stop Time Status Last Admin Dose Admin Acetaminophen (Tylenol) 650 mg Q4H PRN ORAL FEVER 05/20/20 17:00 06/19/20 16:59 Albuterol/ Ipratropium (Combivent Respimat) 1 puff Q4H PRN INH Shortness of Breath 05/20/20 17:15 06/19/20 17:14 Amlodipine Besylate (Norvasc) 5 mg DAILY ORAL 05/21/20 09:00 06/20/20 08:59 05/23/20 09:05 Ascorbic Acid (Vitamin C) 500 mg DAILY ORAL 05/23/20 09:00 06/22/20 08:59 05/23/20 09:05 Azithromycin 250 mg/Dextrose 275 ml @ 275 mls/hr Q24HRS IV 05/21/20 14:00 05/26/20 13:59 05/22/20 15:04 Barium Sulfate (Varibar Honey) 250 ml NOW PRN MC RAD 05/21/20 12:45 05/24/20 12:38 Barium Sulfate (Varibar [place]) 240 ml NOW PRN MC RAD 05/21/20 12:45 05/24/20 12:38 Barium Sulfate (Varibar Pudding) 230 ml NOW PRN MC RAD 05/21/20 12:45 05/24/20 12:38 Barium Sulfate (Varibar Thin Liquid powder) 148 gm NOW PRN MC RAD 05/21/20 12:45 05/24/20 12:38 Ceftriaxone Sodium 1 gm/ Dextrose 55 ml @ 110 mls/hr Q24H IVPB 05/21/20 14:00 05/28/20 13:59 05/23/20 14:00 Dexamethasone (Decadron) 6 mg DAILY ORAL 05/23/20 09:00 06/01/20 08:59 05/23/20 09:05 Dextrose (Dextrose 50%) 25 ml Q30M PRN IV Hypoglycemia 05/20/20 17:00 08/18/20 16:59 Dextrose (Dextrose 50%) 50 ml Q30M PRN IV Hypoglycemia 05/20/20 17:00 08/18/20 16:59 Donepezil HCl (Aricept) 5 mg DAILY ORAL 05/21/20 09:00 06/20/20 08:59 05/23/20 09:04 Heparin Sodium (Porcine) (Heparin 5000 units/ml) 5,000 units EVERY 12 HOURS SUBQ 05/20/20 21:00 07/04/20 20:59 05/23/20 09:06 Lisinopril (ZestriL) 5 mg DAILY ORAL 05/21/20 09:00 06/20/20 08:59 05/23/20 09:05 Multivitamins (Multivitamins) 1 tab DAILY ORAL 05/23/20 09:00 06/22/20 08:59 05/23/20 09:05 Ondansetron HCl (Zofran) 4 mg Q6H PRN IVP Nausea & Vomiting 05/20/20 17:00 06/19/20 16:59 Polyethylene Glycol (Miralax) 17 gm DAILYPRN PRN ORAL Constipation 05/20/20 17:00 06/19/20 16:59 Promethazine HCl/ Codeine (Phenergan with Codeine) 5 ml Q6H PRN ORAL cough 05/20/20 17:00 06/19/20 16:59 Tamsulosin HCl (Flomax) 0.4 mg DAILY ORAL 05/21/20 09:00 06/20/20 08:59 05/23/20 09:05 Allergies: Coded Allergies: No Known Allergies (Unverified , 04/30/12) ROS Limited/Unobtainable: Yes Subjective 79 YO M admitted with fever and dyspnea. Now COVID 19 pos. Cover for Int laina- Dr Hodges Objective Last Vital Signs Date Time Temp Pulse Resp B/P (MAP) Pulse Ox O2 Delivery O2 Flow Rate FiO2 05/23/20 09:05 147/54 05/23/20 09:05 70 05/23/20 08:00 97.9 19 97 05/22/20 21:00 Room Air 05/22/20 14:01 2.0 28 Laboratory Tests Test 05/23/20 07:10 White Blood Count 5.7 K/UL (4.8-10.8) Red Blood Count 5.54 M/UL (4.70-6.10) Hemoglobin 15.8 G/DL (14.2-18.0) Hematocrit 48.5 % (42.0-52.0) Mean Corpuscular Volume 88 FL (80-99) Mean Corpuscular Hemoglobin 28.6 PG (27.0-31.0) Mean Corpuscular Hemoglobin Concent 32.6 G/DL (32.0-36.0) Red Cell Distribution Width 12.3 % (11.6-14.8) Platelet Count 167 K/UL (150-450) Mean Platelet Volume 8.2 FL (6.5-10.1) Neutrophils (%) (Auto) 70.9 % (45.0-75.0) Lymphocytes (%) (Auto) 14.8 % (20.0-45.0) L Monocytes (%) (Auto) 12.5 % (1.0-10.0) H Eosinophils (%) (Auto) 0.2 % (0.0-3.0) Basophils (%) (Auto) 1.7 % (0.0-2.0) Erythrocyte Sedimentation Rate 66 MM/HR (0-20) H Sodium Level 140 MMOL/L (136-145) Potassium Level 3.5 MMOL/L (3.5-5.1) Chloride Level 105 MMOL/L (98-107) Carbon Dioxide Level 24 MMOL/L (21-32) Anion Gap 11 mmol/L (5-15) Blood Urea Nitrogen 20 mg/dL (7-18) H Creatinine 1.3 MG/DL (0.55-1.30) Estimat Glomerular Filtration Rate 53.5 mL/min (>60) Glucose Level 113 MG/DL (74-106) H Calcium Level 8.5 MG/DL (8.5-10.1) Phosphorus Level 2.5 MG/DL (2.5-4.9) Magnesium Level 2.1 MG/DL (1.8-2.4) Total Bilirubin 0.4 MG/DL (0.2-1.0) Aspartate Amino Transf (AST/SGOT) 68 U/L (15-37) H Alanine Aminotransferase (ALT/SGPT) 49 U/L (12-78) Alkaline Phosphatase 110 U/L (46-116) C-Reactive Protein, Quantitative 2.1 mg/dL (0.00-0.90) H Total Protein 7.9 G/DL (6.4-8.2) Albumin 2.8 G/DL (3.4-5.0) L Globulin 5.1 g/dL Albumin/Globulin Ratio 0.5 (1.0-2.7) L Microbiology Date/Time Source Procedure Growth Status 05/20/20 15:10 Nasal Nares MRSA Culture - Final NO METHICILLIN RESISTANT STAPH AUREUS... Complete 05/20/20 15:02 Urine,Clean Catch Urine Culture - Final NO GROWTH AFTER 48 HOURS Complete 05/20/20 15:10 Rectum - Final NO CARBAPENEM-RESISTANT ENTEROBACTERI... Complete 05/20/20 15:10 Rectum VRE Culture - Final NO VANCOMYCIN RESISTANT ENTEROCOCCUS ... Complete Intake and Output 05/22/20 05/23/20 19:00 07:00 Intake Total 330 ml Output Total 550 ml Balance 330 ml -550 ml IV Total 330 ml Output Urine Total 550 ml # Voids 1 Objective PHYSICAL EXAMINATION: GENERAL: The patient is a well-developed, well-nourished, thin-appearing male, in no apparent distress. HEENT: Eyes, pupils are equal and responsive to light and accommodation. Extraocular movements are intact. NECK: Supple without lymphadenopathy. CHEST: Lungs are clear to auscultation bilaterally without wheezes, rales. CARDIOVASCULAR: Regular rate. S1, S2 are normal without murmurs, rubs, or gallops. ABDOMEN: Soft, nontender, and nondistended. Positive bowel sounds. No evidence of hepatosplenomegaly. Currently no rebound or guarding noted. EXTREMITIES: Negative for clubbing, cyanosis, or edema. RECTAL/GENITAL: Not performed. NEUROLOGIC: Cranial nerves II through XII are grossly intact without focal deficits. Motor strength is 5/5 bilaterally. Deep tendon reflexes are 2+ plantar. Assessment/Plan Assessment/Plan ASSESSMENT: This is a 79-year-old male. 1. Fever. 2. Dyspnea. 3. COVID-19 positive. 4. Congestive heart failure. 5. Hypertension. 6. Benign prostatic hypertrophy. 7. Osteoporosis. 8. Alzheimer dementia. 9. Ventriculomegaly. 10. Diabetes type 2. 11. Cerebrovascular disease. 12. Chronic renal failure. 13. Dysphagia. 14. Hypercholesterolemia. 15. Gastroesophageal reflux disease. TREATMENT: 1. Fever/dyspnea/COVID-19 positive. An infectious disease consultation has been obtained with Dr. Cho. A pulmonary consultation has been obtained with Dr. Mirali Zarrabi. The patient has been started empirically on azithromycin and ceftriaxone for probable underlying bacterial pneumonia. The patient has been started on Decadron. We will follow recommendation of Infectious Disease and Pulmonary. 2. Hypertension. Continue amlodipine as above. 3. Benign prostatic hypertrophy. Continue Flomax as above. 4. Osteoporosis. Continue Fosamax as above. 5. Alzheimer dementia. Continue Aricept as above. 6. Ventriculomegaly. 7. Diabetes type 2. 8. Cerebrovascular disease, status post cerebrovascular accident. 9. Chronic renal failure. 10. Dysphagia. 11. Hypercholesterolemia. Continue atorvastatin as above. 12. Gastroesophageal reflux disease. Dano Groves MD May 23, 2020 14:32
[2020-05-23 16:00] VITALS: BP 123/73
--- NOTE | 2020-05-23 16:33 | Consultation ---
History of Present Illness General Date patient seen: May 23, 2020 Chief Complaint: Fever Present Illness HPI 79 y/o M with hx of CAD, CVA, COPD, osteoporosis, R shoulder surgery, CKD, DM2, dysphagia, GERD, aphasia, HTN, HLD, BPH, Dementia, [place] resident (Jr Olivares ) presented to ED on 05/20/20 with dry cough, fever and SOB. T up to 101 [employer]. Allergies: Coded Allergies: No Known Allergies (Unverified , 04/30/12) Medication History Scheduled Alendronate Sodium* (Fosamax*), 70 MG ORAL ONCE A WEEK, (Reported) Amlodipine Besylate* (Amlodipine Besylate*), 5 MG ORAL DAILY, (Reported) Ascorbic Acid* (Vitamin C*), 500 MG ORAL DAILY, (Reported) Aspirin* (Aspirin*), 81 MG ORAL DAILY, (Reported) Atorvastatin Calcium* (Lipitor*), 10 MG ORAL BEDTIME, (Reported) Baclofen (Baclofen), 5 MG PO DAILY, (Reported) Calcium Carbonate/Vitamin D3 (Calcium 500+D Tablet Chew), 1 EACH PO DAILY, ( Reported) Cranberry Fruit Concentrate (Cranberry), 450 MG PO BID, (Reported) Docusate Sodium* (Colace*), 200 MG ORAL DAILY, (Reported) Donepezil Hcl* (Donepezil Hcl*), 10 MG ORAL DAILY, (Reported) Furosemide* (Lasix*), 20 MG ORAL DAILY, (Reported) Multivitamin With Minerals (Multivitamins With Minerals*), 1 TAB ORAL DAILY, ( Reported) Potassium Chloride* (K-Dur*), 10 MEQ ORAL DAILY, (Reported) Tamsulosin HCl (Flomax), 0.4 MG ORAL DAILY, (Reported) Zinc Sulfate (Zinc Sulfate*), 220 MG ORAL DAILY, (Reported) Scheduled PRN Acetaminophen (Tylenol), 650 MG ORAL Q6H PRN for Fever/Headache/Mild Pain, ( Reported) Nitroglycerin (Nitroglycerin), 0.4 MG SL NEEDED PRN for CHEST PAIN, (Reported ) Discontinued Medications Amlodipine Besylate (Norvasc), 5 MG ORAL DAILY, (Reported) Discontinued Reason: Prescription changed Atorvastatin Calcium* (Atorvastatin Calcium*), 10 MG ORAL BEDTIME, (Reported) Discontinued Reason: Prescription changed Cephalexin (Cephalexin), 500 MG ORAL FOUR TIMES A DAY Discontinued Reason: Therapy completed Donepezil Hcl* (Donepezil Hcl*), 5 MG ORAL DAILY, (Reported) Discontinued Reason: Prescription changed Guaifenesin (Sabra-Tussin), 15 ML PO EVERY 8 HOURS PRN for For Cough, (Reported) Discontinued Reason: Therapy completed Lisinopril (Lisinopril*), 5 MG ORAL DAILY, (Reported) Discontinued Reason: Therapy completed Multivitamin (Multi Vitamin Daily), 1 TAB ORAL DAILY, (Reported) Discontinued Reason: Prescription changed Patient History Healthcare decision maker N Resuscitation status Advanced Directive on File Patient History Narrative Pmhx: as above Shx: The patient is . The patient is a resident of [facility] as above. The patient denies tobacco or alcohol use Fhmx: non contributory Review of Systems All Other Systems: negative except mentioned in HPI Physical Exam Physical Exam Narrative GENERAL: The patient is a well-developed, well-nourished, thin-appearing male, in no apparent distress. HEENT: Eyes, pupils are equal and responsive to light and accommodation. Extraocular movements are intact. NECK: Supple without lymphadenopathy. CHEST: Lungs are clear to auscultation bilaterally without wheezes, rales. CARDIOVASCULAR: Regular rate. S1, S2 are normal without murmurs, rubs, or gallops. ABDOMEN: Soft, nontender, and nondistended. Positive bowel sounds. No evidence of hepatosplenomegaly. Currently no rebound or guarding noted. EXTREMITIES: Negative for clubbing, cyanosis, or edema. Last 24 Hour Vital Signs Date Time Temp Pulse Resp B/P (MAP) Pulse Ox O2 Delivery O2 Flow Rate FiO2 05/23/20 12:00 68 05/23/20 09:05 147/54 05/23/20 09:05 70 147/54 05/23/20 08:00 72 05/23/20 08:00 97.9 70 19 147/54 (85) 97 05/23/20 04:00 76 05/23/20 04:00 99.0 80 20 133/64 (87) 95 05/23/20 00:00 98.6 71 20 140/76 (97) 96 05/23/20 00:00 65 05/22/20 21:00 98.6 64 21 110/64 (79) 96 05/22/20 21:00 Room Air 05/22/20 21:00 66 Intake and Output 05/22/20 05/23/20 19:00 07:00 Intake Total 330 ml Output Total 550 ml Balance 330 ml -550 ml IV Total 330 ml Output Urine Total 550 ml # Voids 1 Laboratory Tests Test 05/23/20 07:10 White Blood Count 5.7 K/UL (4.8-10.8) Red Blood Count 5.54 M/UL (4.70-6.10) Hemoglobin 15.8 G/DL (14.2-18.0) Hematocrit 48.5 % (42.0-52.0) Mean Corpuscular Volume 88 FL (80-99) Mean Corpuscular Hemoglobin 28.6 PG (27.0-31.0) Mean Corpuscular Hemoglobin Concent 32.6 G/DL (32.0-36.0) Red Cell Distribution Width 12.3 % (11.6-14.8) Platelet Count 167 K/UL (150-450) Mean Platelet Volume 8.2 FL (6.5-10.1) Neutrophils (%) (Auto) 70.9 % (45.0-75.0) Lymphocytes (%) (Auto) 14.8 % (20.0-45.0) L Monocytes (%) (Auto) 12.5 % (1.0-10.0) H Eosinophils (%) (Auto) 0.2 % (0.0-3.0) Basophils (%) (Auto) 1.7 % (0.0-2.0) Erythrocyte Sedimentation Rate 66 MM/HR (0-20) H Sodium Level 140 MMOL/L (136-145) Potassium Level 3.5 MMOL/L (3.5-5.1) Chloride Level 105 MMOL/L (98-107) Carbon Dioxide Level 24 MMOL/L (21-32) Anion Gap 11 mmol/L (5-15) Blood Urea Nitrogen 20 mg/dL (7-18) H Creatinine 1.3 MG/DL (0.55-1.30) Estimat Glomerular Filtration Rate 53.5 mL/min (>60) Glucose Level 113 MG/DL (74-106) H Calcium Level 8.5 MG/DL (8.5-10.1) Phosphorus Level 2.5 MG/DL (2.5-4.9) Magnesium Level 2.1 MG/DL (1.8-2.4) Total Bilirubin 0.4 MG/DL (0.2-1.0) Aspartate Amino Transf (AST/SGOT) 68 U/L (15-37) H Alanine Aminotransferase (ALT/SGPT) 49 U/L (12-78) Alkaline Phosphatase 110 U/L (46-116) C-Reactive Protein, Quantitative 2.1 mg/dL (0.00-0.90) H Total Protein 7.9 G/DL (6.4-8.2) Albumin 2.8 G/DL (3.4-5.0) L Globulin 5.1 g/dL Albumin/Globulin Ratio 0.5 (1.0-2.7) L Height (Feet): 5 Height (Inches): 5.00 Weight (Pounds): 159 Medications Current Medications Medications (Trade) Dose Ordered Sig/Ankush Route PRN Reason Start Time Stop Time Status Last Admin Dose Admin Acetaminophen (Tylenol) 650 mg Q4H PRN ORAL FEVER 05/20/20 17:00 06/19/20 16:59 Albuterol/ Ipratropium (Combivent Respimat) 1 puff Q4H PRN INH Shortness of Breath 05/20/20 17:15 06/19/20 17:14 Amlodipine Besylate (Norvasc) 5 mg DAILY ORAL 05/21/20 09:00 06/20/20 08:59 05/23/20 09:05 Ascorbic Acid (Vitamin C) 500 mg DAILY ORAL 05/23/20 09:00 06/22/20 08:59 05/23/20 09:05 Azithromycin 250 mg/Dextrose 275 ml @ 275 mls/hr Q24HRS IV 05/21/20 14:00 05/26/20 13:59 05/22/20 15:04 Barium Sulfate (Varibar Honey) 250 ml NOW PRN MC RAD 05/21/20 12:45 05/24/20 12:38 Barium Sulfate (Varibar [place]) 240 ml NOW PRN MC RAD 05/21/20 12:45 05/24/20 12:38 Barium Sulfate (Varibar Pudding) 230 ml NOW PRN MC RAD 05/21/20 12:45 05/24/20 12:38 Barium Sulfate (Varibar Thin Liquid powder) 148 gm NOW PRN MC RAD 05/21/20 12:45 05/24/20 12:38 Ceftriaxone Sodium 1 gm/ Dextrose 55 ml @ 110 mls/hr Q24H IVPB 05/21/20 14:00 05/28/20 13:59 05/23/20 14:00 Dexamethasone (Decadron) 6 mg DAILY ORAL 05/23/20 09:00 06/01/20 08:59 05/23/20 09:05 Dextrose (Dextrose 50%) 25 ml Q30M PRN IV Hypoglycemia 05/20/20 17:00 08/18/20 16:59 Dextrose (Dextrose 50%) 50 ml Q30M PRN IV Hypoglycemia 05/20/20 17:00 08/18/20 16:59 Donepezil HCl (Aricept) 5 mg DAILY ORAL 05/21/20 09:00 06/20/20 08:59 05/23/20 09:04 Heparin Sodium (Porcine) (Heparin 5000 units/ml) 5,000 units EVERY 12 HOURS SUBQ 05/20/20 21:00 07/04/20 20:59 05/23/20 09:06 Lisinopril (ZestriL) 5 mg DAILY ORAL 05/21/20 09:00 06/20/20 08:59 05/23/20 09:05 Multivitamins (Multivitamins) 1 tab DAILY ORAL 05/23/20 09:00 06/22/20 08:59 05/23/20 09:05 Ondansetron HCl (Zofran) 4 mg Q6H PRN IVP Nausea & Vomiting 05/20/20 17:00 06/19/20 16:59 Polyethylene Glycol (Miralax) 17 gm DAILYPRN PRN ORAL Constipation 05/20/20 17:00 06/19/20 16:59 Promethazine HCl/ Codeine (Phenergan with Codeine) 5 ml Q6H PRN ORAL cough 05/20/20 17:00 06/19/20 16:59 Tamsulosin HCl (Flomax) 0.4 mg DAILY ORAL 05/21/20 09:00 06/20/20 08:59 05/23/20 09:05 Assessment/Plan Assessment/Plan: Abx: Ceftriaxone 05/20- Azithromycin 05/20- Assessment: COVID19 PNeumonia -SP 2l NC > now at -05/23 CXR: Left lower lung/retrocardiac opacity which is similar in appearance to the previous study from May 22, 2020. -05/20 CXR: Bibasilar atelectasis. No acute process otherwise rapid COVID PCR + Afebrile No leukocytosis -u/a neg, ucx neg CONS bacteremia- likely contaminant -05/20 Bcx 1/4 CONS CAD CVA COPD osteoporosis R shoulder surgery CKD DM2 dysphagia GERD aphasia HTN HLD BPH Dementia [place] resident (Jr Olivares) Plan: -COntinue Ceftriaxone and Azithromycin #4/5 -Decadron #3 -Patient currently at - will consider Remdesivir if decompensates -f/u cx -Monitor CBC/CMP, temperatures -COVID19 isolation -Bcx x2 Thank you for consulting [facility]. Will continue to follow along with you. Discussed with RN and pharmacy staff. Ashley Cho M.D. May 23, 2020 16:33
[2020-05-23 20:00] VITALS: BP 158/87
--- NOTE | 2020-05-23 20:00 | NUR ---
NURSE NOTES: Received report from Ricardo Bernardo RN. Patient sitting up in bed, on room air, IV on right wrist 22 gauge, IV on left wrist 22 g, started of D5 1/2 NS at 50 ml/h. Reported that pt had minimal intake throughout the day, just received orders for IVF. bed, locked in lowest position, call light within reach, side rails up x 3, no c/o pain, no SOB, in no apparent distress. Took pictures to be uploaded noting sacral stage 2, possible dti periwound, dark discoloration to R and left buttocks, R and L lateral malleolus slight redness, possibly resolving, scrotal edema, optifoam applied to bilateral feet, ankles, sacrum and buttocks, scrotum elevated on a pillow. Condom cath off and leaking, gown wet, placed new gown on patient and clean and dry at this time, reapplied condom cath and repositioned patient. will continue to monitor and reposition frequently, patient is not on a pressure relief mattress
[2020-05-23] MEDS ORDERED: Potassium Chloride 10 MEQ in D5 1/2NS 1,000 ML IV SCH (20:30)
[2020-05-23] MEDS: D5 1/2NS 1,000 ML IV SCH (21:47)
[2020-05-24] VITALS: BP 156/85
[2020-05-24 04:00] VITALS: BP 144/84
--- NOTE | 2020-05-24 07:36 | NUR ---
NURSE HAND-OFF REPORT: Important Events on Shift: -slightly febrile at 99.3, but not taking po meds, unabel to admin tylenol, monitor temp, cooling measures applied Patient Status: STABLE Diet: ELVIA, MECHANICAL SOFT WITH NECTAR THICK LIQUIDS, 1:1 feed Pending Orders: N/A Pending Results/Labs:9/12 AM LABS Pending MD notification: N/A Latest Vital Signs: Temperature 99.0 , Pulse 76 , B/P 133 /64 , Respiratory Rate 20 , O2 SAT 95 , Room Air, O2 Flow Rate 2.0 . Vital Sign Comment: STABLE EKG Rhythm: Sinus Rhythm Rhythm change?: N MD Notified?: - MD Response: Latest Gonzalez Fall Score: 35 Fall Risk: Medium Risk Safety Measures: Call light Within Reach, Bed Alarm Zone 1, Side Rails Side Rails x3, Bed position Low and Locked. Fall Precautions: Yellow Socks Yellow Gown Door Sign Patient Fall Education Report given to Reina TANNER
--- NOTE | 2020-05-24 07:38 | NUR ---
NURSE NOTES: Pt received from Maria Elena Mai RN. Pt in bed sleeping. Bed low and locked. No sign of SOB or distress,. Whiteboard updated. Fall precautions in place.
[2020-05-24 07:56] LABS: HEMATOCRIT 37.5 % (42.0-52.0); HEMOGLOBIN 12.2 G/DL (14.2-18.0); MEAN CORPUSCULAR VOLUME 93 FL (80-99); PLATELET COUNT 90 K/UL (150-450); RED BLOOD COUNT 4.02 M/UL (4.70-6.10); RED CELL DISTRIBUTION WIDTH 13.9 % (11.6-14.8); WHITE BLOOD COUNT 6.7 K/UL (4.8-10.8)
[2020-05-24 08:00] VITALS: BP 138/76
[2020-05-24] MEDS: Heparin 5000 units/ml inj SUBQ SCH ×2 (08:11→20:17)
[2020-05-24 08:25] LABS: ALANINE AMINOTRANSFERASE 15 U/L (12-78); ALBUMIN 2.6 G/DL (3.4-5.0); ALBUMIN/GLOBULIN RATIO 0.6 (1.0-2.7); ALKALINE PHOSPHATASE 51 U/L (46-116); ANION GAP 13 mmol/L (5-15); ASPARTATE AMINO TRANSFERASE 31 U/L (15-37); BILIRUBIN,TOTAL 0.3 MG/DL (0.2-1.0); BLOOD UREA NITROGEN 23 mg/dL (7-18); CALCIUM 7.9 MG/DL (8.5-10.1); CARBON DIOXIDE 25 MMOL/L (21-32); CHLORIDE 118 MMOL/L (98-107); CREATININE 1.1 MG/DL (0.55-1.30); PHOSPHORUS 2.5 MG/DL (2.5-4.9); POTASSIUM 4.1 MMOL/L (3.5-5.1); SODIUM 156 MMOL/L (136-145)
[2020-05-24] MEDS: Ascorbic Acid 500mg tab ORAL SCH ×2 (09:00→10:39)
[2020-05-24] MEDS: Lisinopril 2.5mg tab ORAL SCH ×2 (09:00→10:40)
[2020-05-24] MEDS: Tamsulosin 0.4mg cap ORAL SCH ×2 (09:00→10:39)
[2020-05-24] MEDS: Donepezil 5mg Tab ORAL SCH ×2 (09:00→10:38)
[2020-05-24] MEDS: Acetaminophen 650 MG SUPP RECTAL PRN ×2 (11:33→23:51)
--- NOTE | 2020-05-24 11:55 | NUR ---
NURSE NOTES: Pt refused all oral medication including acetaminophen for fever. Contacted Dr Cho and got order for rectal Tylenol. Suppository given and Dr. Hodges informed about refusal to take Meds, temp, and major changes in blood work from this morning. Most notably Plt 90, Na 156, and Creactive P 5.4. Cooling measures applied to neck, armpit, blanket taken off to reduce temp. Will monitor closely.
[2020-05-24 12:00] VITALS: BP 127/76
--- NOTE | 2020-05-24 12:15 | NUR ---
NURSE NOTES: Temp trending down. 101.3. Will recheck in an hour.
[2020-05-24] MEDS: D5 1/2NS 1,000 ML IV SCH (12:46)
[2020-05-24] MEDS: cefTRIAXone 1 GM in D5W 55 ML IVPB SCH (13:33)
--- NOTE | 2020-05-24 13:52 | NUR ---
NURSE NOTES: temp now 100.3
--- NOTE | 2020-05-24 14:50 | NUR ---
NURSE NOTES: Temangelika now 99.7 Addendum: 05/24/20 at 1502 by Reina Brandt RN ICe bags removed from neck and left arm pit, parkinsonian tremors noted. Seen as artifact on tele monitor,
--- NOTE | 2020-05-24 14:50 | Internal Med Progress Note ---
Subjective Date of Service: May 24, 2020 Physician Name Dano Groves Attending Physician Ahsan Hodges MD Current Medications Medications (Trade) Dose Ordered Sig/Ankush Route PRN Reason Start Time Stop Time Status Last Admin Dose Admin Acetaminophen (Tylenol) 650 mg Q4H PRN ORAL FEVER 05/20/20 17:00 06/19/20 16:59 Acetaminophen (Tylenol) 650 mg Q4H PRN RECTAL Mild Pain (Pain Scale 1-3) 05/24/20 11:30 06/23/20 11:29 05/24/20 11:33 Albuterol/ Ipratropium (Combivent Respimat) 1 puff Q4H PRN INH Shortness of Breath 05/20/20 17:15 06/19/20 17:14 Amlodipine Besylate (Norvasc) 5 mg DAILY ORAL 05/21/20 09:00 06/20/20 08:59 05/23/20 09:05 Ascorbic Acid (Vitamin C) 500 mg DAILY ORAL 05/23/20 09:00 06/22/20 08:59 05/23/20 09:05 Azithromycin 250 mg/Dextrose 275 ml @ 275 mls/hr Q24HRS IV 05/21/20 14:00 05/26/20 13:59 05/23/20 14:00 Ceftriaxone Sodium 1 gm/ Dextrose 55 ml @ 110 mls/hr Q24H IVPB 05/21/20 14:00 05/28/20 13:59 05/24/20 13:33 Dexamethasone (Decadron) 6 mg DAILY ORAL 05/23/20 09:00 06/01/20 08:59 05/23/20 09:05 Dextrose (Dextrose 50%) 25 ml Q30M PRN IV Hypoglycemia 05/20/20 17:00 08/18/20 16:59 Dextrose (Dextrose 50%) 50 ml Q30M PRN IV Hypoglycemia 05/20/20 17:00 08/18/20 16:59 Dextrose/Sodium Chloride 1,000 ml @ 50 mls/hr Q20H IV 05/23/20 19:45 06/22/20 19:44 05/24/20 12:46 Donepezil HCl (Aricept) 5 mg DAILY ORAL 05/21/20 09:00 06/20/20 08:59 05/23/20 09:04 Heparin Sodium (Porcine) (Heparin 5000 units/ml) 5,000 units EVERY 12 HOURS SUBQ 05/20/20 21:00 07/04/20 20:59 05/23/20 09:06 Lisinopril (ZestriL) 5 mg DAILY ORAL 05/21/20 09:00 06/20/20 08:59 05/23/20 09:05 Multivitamins (Multivitamins) 1 tab DAILY ORAL 05/23/20 09:00 06/22/20 08:59 05/23/20 09:05 Non-Formulary Medication (Non-Formulary Med) 1 ea DAILY ORAL 05/23/20 16:30 06/22/20 16:29 UNV Ondansetron HCl (Zofran) 4 mg Q6H PRN IVP Nausea & Vomiting 05/20/20 17:00 06/19/20 16:59 Polyethylene Glycol (Miralax) 17 gm DAILYPRN PRN ORAL Constipation 05/20/20 17:00 06/19/20 16:59 Promethazine HCl/ Codeine (Phenergan with Codeine) 5 ml Q6H PRN ORAL cough 05/20/20 17:00 06/19/20 16:59 Tamsulosin HCl (Flomax) 0.4 mg DAILY ORAL 05/21/20 09:00 06/20/20 08:59 05/23/20 09:05 Allergies: Coded Allergies: No Known Allergies (Unverified , 04/30/12) ROS Limited/Unobtainable: Yes Subjective 79 YO M admitted with fever and dyspnea. Now COVID 19 pos. Cover for Int Med- Dr Hodges. Continues to spike fever to 102.2F Objective Last Vital Signs Date Time Temp Pulse Resp B/P (MAP) Pulse Ox O2 Delivery O2 Flow Rate FiO2 05/24/20 12:03 101.3 05/24/20 12:00 73 20 127/76 (93) 93 05/24/20 09:00 Nasal Cannula 2.0 Nasal Cannula 2.0 05/22/20 14:01 28 Laboratory Tests Test 05/24/20 03:00 White Blood Count 6.7 K/UL (4.8-10.8) Red Blood Count 4.02 M/UL (4.70-6.10) L Hemoglobin 12.2 G/DL (14.2-18.0) L Hematocrit 37.5 % (42.0-52.0) L Mean Corpuscular Volume 93 FL (80-99) Mean Corpuscular Hemoglobin 30.4 PG (27.0-31.0) Mean Corpuscular Hemoglobin Concent 32.6 G/DL (32.0-36.0) Red Cell Distribution Width 13.9 % (11.6-14.8) Platelet Count 90 K/UL (150-450) L Mean Platelet Volume 9.0 FL (6.5-10.1) Neutrophils (%) (Auto) % (45.0-75.0) Lymphocytes (%) (Auto) % (20.0-45.0) Monocytes (%) (Auto) % (1.0-10.0) Eosinophils (%) (Auto) % (0.0-3.0) Basophils (%) (Auto) % (0.0-2.0) Differential Total Cells Counted 100 Neutrophils % (Manual) 68 % (45-75) Lymphocytes % (Manual) 28 % (20-45) Monocytes % (Manual) 4 % (1-10) Eosinophils % (Manual) 0 % (0-3) Basophils % (Manual) 0 % (0-2) Band Neutrophils 0 % (0-8) Platelet Estimate Decreased L Platelet Morphology Normal Red Blood Cell Morphology Normal Erythrocyte Sedimentation Rate 35 MM/HR (0-20) H Sodium Level 156 MMOL/L (136-145) #H Potassium Level 4.1 MMOL/L (3.5-5.1) Chloride Level 118 MMOL/L (98-107) H Carbon Dioxide Level 25 MMOL/L (21-32) Anion Gap 13 mmol/L (5-15) Blood Urea Nitrogen 23 mg/dL (7-18) H Creatinine 1.1 MG/DL (0.55-1.30) Estimat Glomerular Filtration Rate > 60 mL/min (>60) Glucose Level 96 MG/DL (74-106) Calcium Level 7.9 MG/DL (8.5-10.1) L Phosphorus Level 2.5 MG/DL (2.5-4.9) Magnesium Level 1.9 MG/DL (1.8-2.4) Total Bilirubin 0.3 MG/DL (0.2-1.0) Aspartate Amino Transf (AST/SGOT) 31 U/L (15-37) Alanine Aminotransferase (ALT/SGPT) 15 U/L (12-78) Alkaline Phosphatase 51 U/L (46-116) C-Reactive Protein, Quantitative 5.4 mg/dL (0.00-0.90) H Total Protein 6.9 G/DL (6.4-8.2) Albumin 2.6 G/DL (3.4-5.0) L Globulin 4.3 g/dL Albumin/Globulin Ratio 0.6 (1.0-2.7) L Intake and Output 05/23/20 05/24/20 19:00 07:00 Intake Total 120 ml Output Total 400 ml Balance 120 ml -400 ml Intake Oral 120 ml Output Urine Total 400 ml # Bowel Movements 1 1 Objective PHYSICAL EXAMINATION: GENERAL: The patient is a well-developed, well-nourished, thin-appearing male, in no apparent distress. HEENT: Eyes, pupils are equal and responsive to light and accommodation. Extraocular movements are intact. NECK: Supple without lymphadenopathy. CHEST: Lungs are clear to auscultation bilaterally without wheezes, rales. CARDIOVASCULAR: Regular rate. S1, S2 are normal without murmurs, rubs, or gallops. ABDOMEN: Soft, nontender, and nondistended. Positive bowel sounds. No evidence of hepatosplenomegaly. Currently no rebound or guarding noted. EXTREMITIES: Negative for clubbing, cyanosis, or edema. RECTAL/GENITAL: Not performed. NEUROLOGIC: Cranial nerves II through XII are grossly intact without focal deficits. Motor strength is 5/5 bilaterally. Deep tendon reflexes are 2+ plantar. Assessment/Plan Assessment/Plan ASSESSMENT: This is a 79-year-old male. 1. Fever. 2. Dyspnea. 3. COVID-19 positive. 4. Congestive heart failure. 5. Hypertension. 6. Benign prostatic hypertrophy. 7. Osteoporosis. 8. Alzheimer dementia. 9. Ventriculomegaly. 10. Diabetes type 2. 11. Cerebrovascular disease. 12. Chronic renal failure. 13. Dysphagia. 14. Hypercholesterolemia. 15. Gastroesophageal reflux disease. TREATMENT: 1. Fever/dyspnea/COVID-19 positive. Infectious disease consultation = Dr. Cho. Pulmonary consultation = Dr. Kya Carreno. Continue azithromycin and ceftriaxone for probable underlying bacterial pneumonia. The patient has been started on Decadron. We will follow recommendation of Infectious Disease and Pulmonary. 2. Hypertension. Continue amlodipine as above. 3. Benign prostatic hypertrophy. Continue Flomax as above. 4. Osteoporosis. Continue Fosamax as above. 5. Alzheimer dementia. Continue Aricept as above. 6. Ventriculomegaly. 7. Diabetes type 2. 8. Cerebrovascular disease, status post cerebrovascular accident. 9. Chronic renal failure. 10. Dysphagia. 11. Hypercholesterolemia. Continue atorvastatin as above. 12. Gastroesophageal reflux disease. Dano Groves MD May 24, 2020 14:50
[2020-05-24] MEDS: Azithromycin 250 MG in D5W 275 ML IV SCH (14:53)
[2020-05-24 15:57] VITALS: BP 121/51
--- NOTE | 2020-05-24 16:44 | Surgery Progress Note ---
Surgery Progress Note Subjective Symptoms: improved, passing flatus, BM, other Objective Last 24 Hour Vital Signs Date Time Temp Pulse Resp B/P (MAP) Pulse Ox O2 Delivery O2 Flow Rate FiO2 05/24/20 16:00 80 05/24/20 15:57 98.6 71 19 121/51 (74) 97 05/24/20 12:03 101.3 05/24/20 12:00 102.2 73 20 127/76 (93) 93 05/24/20 12:00 75 05/24/20 09:00 Nasal Cannula 2.0 Nasal Cannula 2.0 05/24/20 08:00 77 05/24/20 08:00 101.8 78 20 138/76 (96) 93 05/24/20 04:00 76 05/24/20 04:00 99.1 81 24 144/84 (104) 96 05/24/20 00:00 98.2 72 24 156/85 (108) 93 05/24/20 00:00 72 05/23/20 22:14 93 05/23/20 21:28 Room Air 05/23/20 20:00 97.5 72 22 158/87 (110) 92 05/23/20 20:00 71 I&O Intake and Output 05/23/20 05/24/20 19:00 07:00 Intake Total 120 ml Output Total 400 ml Balance 120 ml -400 ml Intake Oral 120 ml Output Urine Total 400 ml # Bowel Movements 1 1 Dressing: saturated Cardiovascular: RSR Respiratory: decreased breath sounds Abdomen: soft, non-tender, present bowel sounds Extremities: no cyanosis Laboratory Tests Test 05/24/20 03:00 White Blood Count 6.7 K/UL (4.8-10.8) Red Blood Count 4.02 M/UL (4.70-6.10) L Hemoglobin 12.2 G/DL (14.2-18.0) L Hematocrit 37.5 % (42.0-52.0) L Mean Corpuscular Volume 93 FL (80-99) Mean Corpuscular Hemoglobin 30.4 PG (27.0-31.0) Mean Corpuscular Hemoglobin Concent 32.6 G/DL (32.0-36.0) Red Cell Distribution Width 13.9 % (11.6-14.8) Platelet Count 90 K/UL (150-450) L Mean Platelet Volume 9.0 FL (6.5-10.1) Neutrophils (%) (Auto) % (45.0-75.0) Lymphocytes (%) (Auto) % (20.0-45.0) Monocytes (%) (Auto) % (1.0-10.0) Eosinophils (%) (Auto) % (0.0-3.0) Basophils (%) (Auto) % (0.0-2.0) Differential Total Cells Counted 100 Neutrophils % (Manual) 68 % (45-75) Lymphocytes % (Manual) 28 % (20-45) Monocytes % (Manual) 4 % (1-10) Eosinophils % (Manual) 0 % (0-3) Basophils % (Manual) 0 % (0-2) Band Neutrophils 0 % (0-8) Platelet Estimate Decreased L Platelet Morphology Normal Red Blood Cell Morphology Normal Erythrocyte Sedimentation Rate 35 MM/HR (0-20) H Sodium Level 156 MMOL/L (136-145) #H Potassium Level 4.1 MMOL/L (3.5-5.1) Chloride Level 118 MMOL/L (98-107) H Carbon Dioxide Level 25 MMOL/L (21-32) Anion Gap 13 mmol/L (5-15) Blood Urea Nitrogen 23 mg/dL (7-18) H Creatinine 1.1 MG/DL (0.55-1.30) Estimat Glomerular Filtration Rate > 60 mL/min (>60) Glucose Level 96 MG/DL (74-106) Calcium Level 7.9 MG/DL (8.5-10.1) L Phosphorus Level 2.5 MG/DL (2.5-4.9) Magnesium Level 1.9 MG/DL (1.8-2.4) Total Bilirubin 0.3 MG/DL (0.2-1.0) Aspartate Amino Transf (AST/SGOT) 31 U/L (15-37) Alanine Aminotransferase (ALT/SGPT) 15 U/L (12-78) Alkaline Phosphatase 51 U/L (46-116) C-Reactive Protein, Quantitative 5.4 mg/dL (0.00-0.90) H Total Protein 6.9 G/DL (6.4-8.2) Albumin 2.6 G/DL (3.4-5.0) L Globulin 4.3 g/dL Albumin/Globulin Ratio 0.6 (1.0-2.7) L Plan Problems: (1) Acute bronchitis (2) 2019 novel coronavirus disease (COVID-19) Assessment & Plan: ++ as per ID pulm input appreciated (3) Gram-negative bacteremia (4) Osteoporosis (5) UTI (urinary tract infection) (6) Altered mental state (7) Alzheimer's dementia (8) Sepsis (9) Acute encephalopathy (10) Severe sepsis (11) Aphasia (12) HTN (hypertension) (13) BPH (benign prostatic hyperplasia) (14) History of CVA (cerebrovascular accident) (15) Multifocal pneumonia (16) Decubitus skin ulcer Assessment & Plan: 79-year-old male presented to [facility] covered positive respiratory fevers admitted further care and management which time identified to have multiple decubitus skin ulcers and scrotal edema. Patient identified to have a stage III sacral buttock decubitus ulcer with periwound erythema and breakdown. Incontinence associated dermatitis identified. Care plan initiated after patient evaluation. Will follow with recommendations. Thank you DAILY ESTIMATED NEEDS: Needs based on Wound, DM, Cardiac 73kg 25-30 kcals/kg 5667-5529 total kcals 1.25-1.5 g protein/kg 91-109 g total protein 25-30 mL/kg 5079-4746 total fluid mLs NUTRITION DIAGNOSIS: * Swallowing difficulty R/T dysphagia as evidenced by [employer]PER[employer]ENDENT eval, [employer]PERINTENDENT rec for mech soft ground with nectar thick liquids * Increased kcal/pro/micronutrients needs R/T wound healing as evidenced by admitted w/ wounds @ sacrum and BL ankles, pending eval. CURRENT DIET:ELVIA w/ mech soft ground w/ NTL PO DIET RECOMMENDATIONS: ELVIA + CCHO Med (texture per [employer] SUPERINTENDENT) ADDITIONAL RECOMMENDATIONS: * Calibrated bedscale wt for accurate CBW * Monitor PO intake -> add Glucerna BID for now, monitor acceptance * Check A1C for eval of glycemic control * Wound healing: add MVI x 1, Vit C 500mg QD f/up w/ WC eval (17) Scrotal edema Assessment & Plan: Patient identified to have significant scrotal edema potential cellulitis on admission. No abscess identified. Towel placed under the scrotum. We will monitor over the course of the next few days Rojas Jerome May 24, 2020 16:44
--- NOTE | 2020-05-24 19:25 | Pulmonology Progress Note ---
Subjective ROS Limited/Unobtainable: Yes Constitutional: Reports: no symptoms HEENT: Repors: no symptoms Respiratory: Reports: no symptoms Allergies: Coded Allergies: No Known Allergies (Unverified , 04/30/12) Objective Last 24 Hour Vital Signs Date Time Temp Pulse Resp B/P (MAP) Pulse Ox O2 Delivery O2 Flow Rate FiO2 05/24/20 16:00 80 05/24/20 15:57 98.6 71 19 121/51 (74) 97 05/24/20 12:03 101.3 05/24/20 12:00 102.2 73 20 127/76 (93) 93 05/24/20 12:00 75 05/24/20 09:00 Nasal Cannula 2.0 Nasal Cannula 2.0 05/24/20 08:00 77 05/24/20 08:00 101.8 78 20 138/76 (96) 93 05/24/20 04:00 76 05/24/20 04:00 99.1 81 24 144/84 (104) 96 05/24/20 00:00 98.2 72 24 156/85 (108) 93 05/24/20 00:00 72 05/23/20 22:14 93 05/23/20 21:28 Room Air 05/23/20 20:00 97.5 72 22 158/87 (110) 92 05/23/20 20:00 71 Intake and Output 05/23/20 05/24/20 19:00 07:00 Intake Total 120 ml Output Total 400 ml Balance 120 ml -400 ml Intake Oral 120 ml Output Urine Total 400 ml # Bowel Movements 1 1 General Appearance: WD/WN HEENT: normocephalic, atraumatic Respiratory: chest wall non-tender, lungs clear, respiratory distress Cardiovascular: normal peripheral pulses, normal rate Abdomen: normal bowel sounds, soft, non tender Genitourinary: normal external genitalia Extremities: no cyanosis Neurologic: renal medicine specialist II-XII grossly normal Laboratory Tests 05/24/20 03:00: White Blood Count 6.7, Red Blood Count 4.02L, Hemoglobin 12.2L, Hematocrit 37.5L , Mean Corpuscular Volume 93, Mean Corpuscular Hemoglobin 30.4, Mean Corpuscular Hemoglobin Concent 32.6, Red Cell Distribution Width 13.9, Platelet Count 90L, Mean Platelet Volume 9.0, Neutrophils (%) (Auto) , Lymphocytes (%) ( Auto) , Monocytes (%) (Auto) , Eosinophils (%) (Auto) , Basophils (%) (Auto) , Differential Total Cells Counted 100, Neutrophils % (Manual) 68, Lymphocytes % ( Manual) 28, Monocytes % (Manual) 4, Eosinophils % (Manual) 0, Basophils % ( Manual) 0, Band Neutrophils 0, Platelet Estimate DecreasedL, Platelet Morphology Normal, Red Blood Cell Morphology Normal, Erythrocyte Sedimentation Rate 35H, Sodium Level 156#H, Potassium Level 4.1, Chloride Level 118H, Carbon Dioxide Level 25, Anion Gap 13, Blood Urea Nitrogen 23H, Creatinine 1.1, Estimat Glomerular Filtration Rate > 60, Glucose Level 96, Calcium Level 7.9L, Phosphorus Level 2.5, Magnesium Level 1.9, Total Bilirubin 0.3, Aspartate Amino Transf (AST/SGOT) 31, Alanine Aminotransferase (ALT/SGPT) 15, Alkaline Phosphatase 51, C-Reactive Protein, Quantitative 5.4H, Total Protein 6.9, Albumin 2.6L, Globulin 4.3, Albumin/Globulin Ratio 0.6L Current Medications Medications (Trade) Dose Ordered Sig/Ankush Route PRN Reason Start Time Stop Time Status Last Admin Dose Admin Acetaminophen (Tylenol) 650 mg Q4H PRN ORAL FEVER 05/20/20 17:00 06/19/20 16:59 Acetaminophen (Tylenol) 650 mg Q4H PRN RECTAL Mild Pain (Pain Scale 1-3) 05/24/20 11:30 06/23/20 11:29 05/24/20 11:33 Albuterol/ Ipratropium (Combivent Respimat) 1 puff Q4H PRN INH Shortness of Breath 05/20/20 17:15 06/19/20 17:14 Amlodipine Besylate (Norvasc) 5 mg DAILY ORAL 05/21/20 09:00 06/20/20 08:59 05/23/20 09:05 Ascorbic Acid (Vitamin C) 500 mg DAILY ORAL 05/23/20 09:00 06/22/20 08:59 05/23/20 09:05 Azithromycin 250 mg/Dextrose 275 ml @ 275 mls/hr Q24HRS IV 05/21/20 14:00 05/26/20 13:59 05/24/20 14:53 Ceftriaxone Sodium 1 gm/ Dextrose 55 ml @ 110 mls/hr Q24H IVPB 05/21/20 14:00 05/28/20 13:59 05/24/20 13:33 Dexamethasone (Decadron) 6 mg DAILY ORAL 05/23/20 09:00 06/01/20 08:59 05/23/20 09:05 Dextrose (Dextrose 50%) 25 ml Q30M PRN IV Hypoglycemia 05/20/20 17:00 08/18/20 16:59 Dextrose (Dextrose 50%) 50 ml Q30M PRN IV Hypoglycemia 05/20/20 17:00 08/18/20 16:59 Dextrose/Sodium Chloride 1,000 ml @ 50 mls/hr Q20H IV 05/23/20 19:45 06/22/20 19:44 05/24/20 12:46 Donepezil HCl (Aricept) 5 mg DAILY ORAL 05/21/20 09:00 06/20/20 08:59 05/23/20 09:04 Heparin Sodium (Porcine) (Heparin 5000 units/ml) 5,000 units EVERY 12 HOURS SUBQ 05/20/20 21:00 07/04/20 20:59 05/23/20 09:06 Lisinopril (ZestriL) 5 mg DAILY ORAL 05/21/20 09:00 06/20/20 08:59 05/23/20 09:05 Multivitamins (Multivitamins) 1 tab DAILY ORAL 05/23/20 09:00 06/22/20 08:59 05/23/20 09:05 Non-Formulary Medication (Non-Formulary Med) 1 ea DAILY ORAL 05/23/20 16:30 06/22/20 16:29 UNV Ondansetron HCl (Zofran) 4 mg Q6H PRN IVP Nausea & Vomiting 05/20/20 17:00 06/19/20 16:59 Polyethylene Glycol (Miralax) 17 gm DAILYPRN PRN ORAL Constipation 05/20/20 17:00 06/19/20 16:59 Promethazine HCl/ Codeine (Phenergan with Codeine) 5 ml Q6H PRN ORAL cough 05/20/20 17:00 06/19/20 16:59 Tamsulosin HCl (Flomax) 0.4 mg DAILY ORAL 05/21/20 09:00 06/20/20 08:59 05/23/20 09:05 Assessment/Plan Problems: (1) Gram-negative bacteremia (2) 2019 novel coronavirus disease (COVID-19) (3) Acute bronchitis (4) History of CVA (cerebrovascular accident) (5) BPH (benign prostatic hyperplasia) (6) HTN (hypertension) (7) Alzheimer's dementia Assessment/Plan all reviewed respiratory isolation check sputum iv abx ID to see f/u electrolytes titrate fio2 to sat of 92% f/u inflammatory markers monitor BP dvt prophylaxis Kya Carreno MD May 24, 2020 19:25
--- NOTE | 2020-05-24 19:40 | NUR ---
HAND-OFF: Report given to Rocio TANNER.
--- NOTE | 2020-05-24 19:45 | NUR ---
NURSE NOTES: Patient received from FLORES Huang. Patient was observed sleeping but was aroused when his name was yelled out loud. Patient is currently on room air satting at 96%. IV site is located on her left forearm 24 gauge and is patent with a D5 half NS running. No signs of distress has been currently noted. Bed is in the lowest position, call light within reach. Will continue to monitor.
[2020-05-24 20:00] VITALS: BP 121/80
--- NOTE | 2020-05-24 21:45 | NUR ---
NURSE NOTES: Patient temperature was noted to be elevated. Suppository tylenol and cooling measures has been initiated. Will continue to monitor.
[2020-05-25] VITALS: BP 135/77
[2020-05-25 04:00] VITALS: BP 159/64
--- NOTE | 2020-05-25 07:14 | NUR ---
NURSE NOTES: Pt received from Rocio. RN. Pt in bed sleeping. Bed low and locked. Head of bed elevated. No sign of SOB or distress. Ice bags seen on body. Fall precautions in place. Will monitor temp.
--- NOTE | 2020-05-25 07:40 | NUR ---
NURSE HAND-OFF REPORT: Important Events on Shift:[Patient had an elevated temperature. Gave medication and cooling measures to lower temperature] Patient Status: [] Diet: [No added salt, mechanical soft diet, nectar thick liquids] Pending Orders: [] Pending Results/Labs:[] Pending MD notification:[] Latest Vital Signs: Temperature 99.4 , Pulse 78 , B/P 159 /64 , Respiratory Rate 24 , O2 SAT 94 , Nasal Cannula, O2 Flow Rate 2.0 . Vital Sign Comment: [] EKG Rhythm: Sinus Rhythm Rhythm change?: N MD Notified?: - MD Response: Latest Gonzalez Fall Score: 50 Fall Risk: High Risk Safety Measures: Call light Within Reach, Bed Alarm Zone 1, Side Rails Side Rails x3, Bed position Low and Locked. Fall Precautions: Yellow Socks Yellow Gown Door Sign Patient Fall Education Report given to [FLORES Huang].
[2020-05-25 08:00] VITALS: BP 141/75
[2020-05-25] MEDS: Heparin 5000 units/ml inj SUBQ SCH ×2 (09:00→21:00)
[2020-05-25] MEDS: Donepezil 5mg Tab ORAL SCH (09:12)
[2020-05-25] MEDS: Tamsulosin 0.4mg cap ORAL SCH (09:13)
[2020-05-25] MEDS: Lisinopril 2.5mg tab ORAL SCH (09:15)
[2020-05-25] MEDS: Ascorbic Acid 500mg tab ORAL SCH (09:15)
[2020-05-25 09:18] LABS: BASOPHILS % (AUTO) 1.6 % (0.0-2.0); EOSINOPHILS % (AUTO) 0.1 % (0.0-3.0); HEMATOCRIT 45.7 % (42.0-52.0); HEMOGLOBIN 14.8 G/DL (14.2-18.0); LYMPHOCYTES % (AUTO) 26.2 % (20.0-45.0); MEAN CORPUSCULAR VOLUME 91 FL (80-99); MONOCYTES % (AUTO) 8.9 % (1.0-10.0); NEUTROPHILS % (AUTO) 63.3 % (45.0-75.0); PLATELET COUNT 102 K/UL (150-450); WHITE BLOOD COUNT 4.7 K/UL (4.8-10.8)
[2020-05-25 09:39] LABS: ALANINE AMINOTRANSFERASE 58 U/L (12-78); ALBUMIN 2.4 G/DL (3.4-5.0); ALBUMIN/GLOBULIN RATIO 0.5 (1.0-2.7); ALKALINE PHOSPHATASE 95 U/L (46-116); ANION GAP 11 mmol/L (5-15); ASPARTATE AMINO TRANSFERASE 70 U/L (15-37); BILIRUBIN,TOTAL 0.4 MG/DL (0.2-1.0); BLOOD UREA NITROGEN 18 mg/dL (7-18); CALCIUM 8.4 MG/DL (8.5-10.1); CARBON DIOXIDE 26 MMOL/L (21-32); CHLORIDE 103 MMOL/L (98-107); CREATININE 1.1 MG/DL (0.55-1.30); PHOSPHORUS 2.5 MG/DL (2.5-4.9); POTASSIUM 3.9 MMOL/L (3.5-5.1); SODIUM 140 MMOL/L (136-145)
--- NOTE | 2020-05-25 11:20 | NUR ---
NURSE NOTES: Received report from FLORES Huang. Pt is A/O x1 when addressed personally and loudly. Patient is currently on 2L SATing @ 97%. Pt has IV site on L Hand which is patent and is running D51/2NS running @ 50cc/hr. NoSOB or acute distress noted.. Bed is in the lowest position, locked and call light within reach. Will continue to monitor.
--- NOTE | 2020-05-25 11:40 | NUR ---
HAND-OFF: Report given to Tanesha TANNER.
[2020-05-25] MEDS: D5 1/2NS 1,000 ML IV SCH (11:45)
[2020-05-25 12:00] VITALS: BP 137/72
--- NOTE | 2020-05-25 12:13 | Pulmonology Progress Note ---
Subjective ROS Limited/Unobtainable: Yes Constitutional: Reports: no symptoms HEENT: Repors: no symptoms Respiratory: Reports: no symptoms Allergies: Coded Allergies: No Known Allergies (Unverified , 04/30/12) Objective Last 24 Hour Vital Signs Date Time Temp Pulse Resp B/P (MAP) Pulse Ox O2 Delivery O2 Flow Rate FiO2 05/25/20 09:15 141/75 05/25/20 09:15 72 141/75 05/25/20 09:00 Nasal Cannula 4.0 05/25/20 08:00 97.7 91 20 141/75 (97) 95 05/25/20 08:00 69 05/25/20 04:00 88 05/25/20 04:00 99.4 78 24 159/64 (95) 94 05/25/20 01:00 99.1 05/25/20 00:00 64 05/25/20 00:00 99.1 65 24 135/77 (96) 98 05/24/20 21:00 Nasal Cannula 2.0 Nasal Cannula 2.0 05/24/20 20:09 94 20 90 Nasal Cannula 2.0 28 05/24/20 20:00 64 05/24/20 20:00 100.6 67 24 121/80 (94) 96 05/24/20 16:00 80 05/24/20 15:57 98.6 71 19 121/51 (74) 97 Intake and Output 05/24/20 05/25/20 19:00 07:00 Intake Total 50 ml 600 ml Balance 50 ml 600 ml IV Total 50 ml 600 ml # Voids 3 # Bowel Movements 1 General Appearance: WD/WN HEENT: normocephalic, atraumatic Respiratory: chest wall non-tender, lungs clear, respiratory distress, decreased breath sounds Cardiovascular: normal peripheral pulses, normal rate Abdomen: normal bowel sounds, soft, non tender Genitourinary: normal external genitalia Extremities: no cyanosis Neurologic: inspector tool II-XII grossly normal Microbiology Date/Time Source Procedure Growth Status 05/23/20 17:00 Blood Blood Culture - Preliminary NO GROWTH AFTER 24 HOURS Resulted 05/23/20 16:50 Blood Blood Culture - Preliminary NO GROWTH AFTER 24 HOURS Resulted Laboratory Tests 05/25/20 08:45: White Blood Count 4.7L, Red Blood Count 5.00, Hemoglobin 14.8, Hematocrit 45.7, Mean Corpuscular Volume 91, Mean Corpuscular Hemoglobin 29.7, Mean Corpuscular Hemoglobin Concent 32.5, Red Cell Distribution Width 14.0, Platelet Count 102L, Mean Platelet Volume 11.1H, Neutrophils (%) (Auto) 63.3, Lymphocytes (%) (Auto) 26.2, Monocytes (%) (Auto) 8.9, Eosinophils (%) (Auto) 0.1, Basophils (%) (Auto ) 1.6, Sodium Level 140, Potassium Level 3.9, Chloride Level 103, Carbon Dioxide Level 26, Anion Gap 11, Blood Urea Nitrogen 18, Creatinine 1.1, Estimat Glomerular Filtration Rate > 60, Glucose Level 121H, Calcium Level 8.4L, Phosphorus Level 2.5, Magnesium Level 2.3, Total Bilirubin 0.4, Aspartate Amino Transf (AST/SGOT) 70H, Alanine Aminotransferase (ALT/SGPT) 58, Alkaline Phosphatase 95, Total Protein 7.4, Albumin 2.4L, Globulin 5.0, Albumin/Globulin Ratio 0.5L Current Medications Medications (Trade) Dose Ordered Sig/Ankush Route PRN Reason Start Time Stop Time Status Last Admin Dose Admin Acetaminophen (Tylenol) 650 mg Q4H PRN ORAL FEVER 05/20/20 17:00 06/19/20 16:59 Acetaminophen (Tylenol) 650 mg Q4H PRN RECTAL Mild Pain (Pain Scale 1-3) 05/24/20 11:30 06/23/20 11:29 05/24/20 23:51 Albuterol/ Ipratropium (Combivent Respimat) 1 puff Q4H PRN INH Shortness of Breath 05/20/20 17:15 06/19/20 17:14 Amlodipine Besylate (Norvasc) 5 mg DAILY ORAL 05/21/20 09:00 06/20/20 08:59 05/25/20 09:15 Ascorbic Acid (Vitamin C) 500 mg DAILY ORAL 05/23/20 09:00 06/22/20 08:59 05/25/20 09:15 Azithromycin 250 mg/Dextrose 275 ml @ 275 mls/hr Q24HRS IV 05/21/20 14:00 05/26/20 13:59 05/24/20 14:53 Ceftriaxone Sodium 1 gm/ Dextrose 55 ml @ 110 mls/hr Q24H IVPB 05/21/20 14:00 05/28/20 13:59 05/24/20 13:33 Dexamethasone (Decadron) 6 mg DAILY ORAL 05/23/20 09:00 06/01/20 08:59 05/25/20 09:12 Dextrose (Dextrose 50%) 25 ml Q30M PRN IV Hypoglycemia 05/20/20 17:00 08/18/20 16:59 Dextrose (Dextrose 50%) 50 ml Q30M PRN IV Hypoglycemia 05/20/20 17:00 08/18/20 16:59 Dextrose/Sodium Chloride 1,000 ml @ 50 mls/hr Q20H IV 05/23/20 19:45 06/22/20 19:44 05/24/20 12:46 Donepezil HCl (Aricept) 5 mg DAILY ORAL 05/21/20 09:00 06/20/20 08:59 05/25/20 09:12 Heparin Sodium (Porcine) (Heparin 5000 units/ml) 5,000 units EVERY 12 HOURS SUBQ 05/20/20 21:00 07/04/20 20:59 05/23/20 09:06 Lisinopril (ZestriL) 5 mg DAILY ORAL 05/21/20 09:00 06/20/20 08:59 05/25/20 09:15 Multivitamins (Multivitamins) 1 tab DAILY ORAL 05/23/20 09:00 06/22/20 08:59 05/25/20 09:13 Non-Formulary Medication (Non-Formulary Med) 1 ea DAILY ORAL 05/23/20 16:30 06/22/20 16:29 UNV Ondansetron HCl (Zofran) 4 mg Q6H PRN IVP Nausea & Vomiting 05/20/20 17:00 06/19/20 16:59 Polyethylene Glycol (Miralax) 17 gm DAILYPRN PRN ORAL Constipation 05/20/20 17:00 06/19/20 16:59 Promethazine HCl/ Codeine (Phenergan with Codeine) 5 ml Q6H PRN ORAL cough 05/20/20 17:00 06/19/20 16:59 Tamsulosin HCl (Flomax) 0.4 mg DAILY ORAL 05/21/20 09:00 06/20/20 08:59 05/25/20 09:13 Assessment/Plan Problems: (1) 2019 novel coronavirus disease (COVID-19) (2) Acute bronchitis (3) History of CVA (cerebrovascular accident) (4) BPH (benign prostatic hyperplasia) (5) HTN (hypertension) (6) Alzheimer's dementia Assessment/Plan all reviewed respiratory isolation check sputum, still pending iv abx ID recommendations appreciated f/u electrolytes titrate fio2 to sat of 92% f/u inflammatory markers monitor BP dvt prophylaxis Kya Carreno MD May 25, 2020 12:13
[2020-05-25] MEDS: Azithromycin 250 MG in D5W 275 ML IV SCH (13:04)
[2020-05-25] MEDS: cefTRIAXone 1 GM in D5W 55 ML IVPB SCH (13:04)
--- NOTE | 2020-05-25 15:19 | Infectious Diseases Prog Note ---
Assessment/Plan Assessment: COVID19 PNeumonia -SP 2l NC > now at RA > 2l NC -05/23 CXR: Left lower lung/retrocardiac opacity which is similar in appearance to the previous study from May 22, 2020. -05/20 CXR: Bibasilar atelectasis. No acute process otherwise rapid COVID PCR + Afebrile No leukocytosis -u/a neg, ucx neg CONS bacteremia- likely contaminant -05/20 Bcx 1/4 CONS; 05/23 Bcx NTD CAD CVA COPD osteoporosis R shoulder surgery CKD DM2 dysphagia GERD aphasia HTN HLD BPH Dementia CT resident (Jr Olivares) Plan: -COntinue Ceftriaxone #6/ -dc Azithromycin #6/ -Decadron #/ -Requested Remdesivir -f/u cx -Monitor CBC/CMP, temperatures -COVID19 isolation -f/u repeat Bcx x2 Thank you for consulting [facility]. Will continue to follow along with you. Discussed with RN and pharmacy staff. Subjective Allergies: Coded Allergies: No Known Allergies (Unverified , 04/30/12) Tm 100.6 now at 2l NC Objective Last 24 Hour Vital Signs Date Time Temp Pulse Resp B/P (MAP) Pulse Ox O2 Delivery O2 Flow Rate FiO2 05/25/20 12:00 97.5 68 18 137/72 (93) 95 05/25/20 12:00 70 05/25/20 09:15 141/75 05/25/20 09:15 72 141/75 05/25/20 09:00 Nasal Cannula 4.0 05/25/20 08:00 97.7 91 20 141/75 (97) 95 05/25/20 08:00 69 05/25/20 04:00 88 05/25/20 04:00 99.4 78 24 159/64 (95) 94 05/25/20 01:00 99.1 05/25/20 00:00 64 05/25/20 00:00 99.1 65 24 135/77 (96) 98 05/24/20 21:00 Nasal Cannula 2.0 Nasal Cannula 2.0 05/24/20 20:09 94 20 90 Nasal Cannula 2.0 28 05/24/20 20:00 64 05/24/20 20:00 100.6 67 24 121/80 (94) 96 05/24/20 16:00 80 05/24/20 15:57 98.6 71 19 121/51 (74) 97 Height (Feet): 5 Height (Inches): 5.00 Weight (Pounds): 159 Cardiovascular: RSR Respiratory: decreased breath sounds Abdomen: soft, non-tender, present bowel sounds Extremities: no cyanosis Microbiology Date/Time Source Procedure Growth Status 05/23/20 17:00 Blood Blood Culture - Preliminary NO GROWTH AFTER 24 HOURS Resulted 05/23/20 16:50 Blood Blood Culture - Preliminary NO GROWTH AFTER 24 HOURS Resulted Laboratory Tests Test 05/25/20 08:45 White Blood Count 4.7 K/UL (4.8-10.8) L Red Blood Count 5.00 M/UL (4.70-6.10) Hemoglobin 14.8 G/DL (14.2-18.0) Hematocrit 45.7 % (42.0-52.0) Mean Corpuscular Volume 91 FL (80-99) Mean Corpuscular Hemoglobin 29.7 PG (27.0-31.0) Mean Corpuscular Hemoglobin Concent 32.5 G/DL (32.0-36.0) Red Cell Distribution Width 14.0 % (11.6-14.8) Platelet Count 102 K/UL (150-450) L Mean Platelet Volume 11.1 FL (6.5-10.1) H Neutrophils (%) (Auto) 63.3 % (45.0-75.0) Lymphocytes (%) (Auto) 26.2 % (20.0-45.0) Monocytes (%) (Auto) 8.9 % (1.0-10.0) Eosinophils (%) (Auto) 0.1 % (0.0-3.0) Basophils (%) (Auto) 1.6 % (0.0-2.0) Sodium Level 140 MMOL/L (136-145) Potassium Level 3.9 MMOL/L (3.5-5.1) Chloride Level 103 MMOL/L (98-107) Carbon Dioxide Level 26 MMOL/L (21-32) Anion Gap 11 mmol/L (5-15) Blood Urea Nitrogen 18 mg/dL (7-18) Creatinine 1.1 MG/DL (0.55-1.30) Estimat Glomerular Filtration Rate > 60 mL/min (>60) Glucose Level 121 MG/DL (74-106) H Calcium Level 8.4 MG/DL (8.5-10.1) L Phosphorus Level 2.5 MG/DL (2.5-4.9) Magnesium Level 2.3 MG/DL (1.8-2.4) Total Bilirubin 0.4 MG/DL (0.2-1.0) Aspartate Amino Transf (AST/SGOT) 70 U/L (15-37) H Alanine Aminotransferase (ALT/SGPT) 58 U/L (12-78) Alkaline Phosphatase 95 U/L (46-116) Total Protein 7.4 G/DL (6.4-8.2) Albumin 2.4 G/DL (3.4-5.0) L Globulin 5.0 g/dL Albumin/Globulin Ratio 0.5 (1.0-2.7) L Current Medications Medications (Trade) Dose Ordered Sig/Ankush Route PRN Reason Start Time Stop Time Status Last Admin Dose Admin Acetaminophen (Tylenol) 650 mg Q4H PRN ORAL FEVER 05/20/20 17:00 06/19/20 16:59 Acetaminophen (Tylenol) 650 mg Q4H PRN RECTAL Mild Pain (Pain Scale 1-3) 05/24/20 11:30 06/23/20 11:29 05/24/20 23:51 Albuterol/ Ipratropium (Combivent Respimat) 1 puff Q4H PRN INH Shortness of Breath 05/20/20 17:15 06/19/20 17:14 Amlodipine Besylate (Norvasc) 5 mg DAILY ORAL 05/21/20 09:00 06/20/20 08:59 05/25/20 09:15 Ascorbic Acid (Vitamin C) 500 mg DAILY ORAL 05/23/20 09:00 06/22/20 08:59 05/25/20 09:15 Azithromycin 250 mg/Dextrose 275 ml @ 275 mls/hr Q24HRS IV 05/21/20 14:00 05/26/20 13:59 05/25/20 13:04 Ceftriaxone Sodium 1 gm/ Dextrose 55 ml @ 110 mls/hr Q24H IVPB 05/21/20 14:00 05/28/20 13:59 05/25/20 13:04 Dexamethasone (Decadron) 6 mg DAILY ORAL 05/23/20 09:00 06/01/20 08:59 05/25/20 09:12 Dextrose (Dextrose 50%) 25 ml Q30M PRN IV Hypoglycemia 05/20/20 17:00 08/18/20 16:59 Dextrose (Dextrose 50%) 50 ml Q30M PRN IV Hypoglycemia 05/20/20 17:00 08/18/20 16:59 Dextrose/Sodium Chloride 1,000 ml @ 50 mls/hr Q20H IV 05/23/20 19:45 06/22/20 19:44 05/25/20 11:45 Donepezil HCl (Aricept) 5 mg DAILY ORAL 05/21/20 09:00 06/20/20 08:59 05/25/20 09:12 Heparin Sodium (Porcine) (Heparin 5000 units/ml) 5,000 units EVERY 12 HOURS SUBQ 05/20/20 21:00 07/04/20 20:59 05/23/20 09:06 Lisinopril (ZestriL) 5 mg DAILY ORAL 05/21/20 09:00 06/20/20 08:59 05/25/20 09:15 Multivitamins (Multivitamins) 1 tab DAILY ORAL 05/23/20 09:00 06/22/20 08:59 05/25/20 09:13 Non-Formulary Medication (Non-Formulary Med) 1 ea DAILY ORAL 05/23/20 16:30 06/22/20 16:29 UNV Ondansetron HCl (Zofran) 4 mg Q6H PRN IVP Nausea & Vomiting 05/20/20 17:00 06/19/20 16:59 Polyethylene Glycol (Miralax) 17 gm DAILYPRN PRN ORAL Constipation 05/20/20 17:00 06/19/20 16:59 Promethazine HCl/ Codeine (Phenergan with Codeine) 5 ml Q6H PRN ORAL cough 05/20/20 17:00 06/19/20 16:59 Tamsulosin HCl (Flomax) 0.4 mg DAILY ORAL 05/21/20 09:00 06/20/20 08:59 05/25/20 09:13 Ashley Cho M.D. May 25, 2020 15:19
[2020-05-25] MEDS ORDERED: Remdesivir Fact Sheet MISC SCH (15:30)
[2020-05-25 16:00] VITALS: BP 135/74
--- NOTE | 2020-05-25 16:20 | Surgery Progress Note ---
Surgery Progress Note Subjective Symptoms: improved, tolerating diet, passing flatus Objective Last 24 Hour Vital Signs Date Time Temp Pulse Resp B/P (MAP) Pulse Ox O2 Delivery O2 Flow Rate FiO2 05/25/20 12:00 97.5 68 18 137/72 (93) 95 05/25/20 12:00 70 05/25/20 09:15 141/75 05/25/20 09:15 72 141/75 05/25/20 09:00 Nasal Cannula 4.0 05/25/20 08:00 97.7 91 20 141/75 (97) 95 05/25/20 08:00 69 05/25/20 04:00 88 05/25/20 04:00 99.4 78 24 159/64 (95) 94 05/25/20 01:00 99.1 05/25/20 00:00 64 05/25/20 00:00 99.1 65 24 135/77 (96) 98 05/24/20 21:00 Nasal Cannula 2.0 Nasal Cannula 2.0 05/24/20 20:09 94 20 90 Nasal Cannula 2.0 28 05/24/20 20:00 64 05/24/20 20:00 100.6 67 24 121/80 (94) 96 I&O Intake and Output 05/24/20 05/25/20 19:00 07:00 Intake Total 50 ml 600 ml Balance 50 ml 600 ml IV Total 50 ml 600 ml # Voids 3 # Bowel Movements 1 Dressing: saturated Cardiovascular: RSR Respiratory: decreased breath sounds Abdomen: soft, non-tender, present bowel sounds Extremities: no tenderness, no cyanosis Laboratory Tests Test 05/25/20 08:45 White Blood Count 4.7 K/UL (4.8-10.8) L Red Blood Count 5.00 M/UL (4.70-6.10) Hemoglobin 14.8 G/DL (14.2-18.0) Hematocrit 45.7 % (42.0-52.0) Mean Corpuscular Volume 91 FL (80-99) Mean Corpuscular Hemoglobin 29.7 PG (27.0-31.0) Mean Corpuscular Hemoglobin Concent 32.5 G/DL (32.0-36.0) Red Cell Distribution Width 14.0 % (11.6-14.8) Platelet Count 102 K/UL (150-450) L Mean Platelet Volume 11.1 FL (6.5-10.1) H Neutrophils (%) (Auto) 63.3 % (45.0-75.0) Lymphocytes (%) (Auto) 26.2 % (20.0-45.0) Monocytes (%) (Auto) 8.9 % (1.0-10.0) Eosinophils (%) (Auto) 0.1 % (0.0-3.0) Basophils (%) (Auto) 1.6 % (0.0-2.0) Sodium Level 140 MMOL/L (136-145) Potassium Level 3.9 MMOL/L (3.5-5.1) Chloride Level 103 MMOL/L (98-107) Carbon Dioxide Level 26 MMOL/L (21-32) Anion Gap 11 mmol/L (5-15) Blood Urea Nitrogen 18 mg/dL (7-18) Creatinine 1.1 MG/DL (0.55-1.30) Estimat Glomerular Filtration Rate > 60 mL/min (>60) Glucose Level 121 MG/DL (74-106) H Calcium Level 8.4 MG/DL (8.5-10.1) L Phosphorus Level 2.5 MG/DL (2.5-4.9) Magnesium Level 2.3 MG/DL (1.8-2.4) Total Bilirubin 0.4 MG/DL (0.2-1.0) Aspartate Amino Transf (AST/SGOT) 70 U/L (15-37) H Alanine Aminotransferase (ALT/SGPT) 58 U/L (12-78) Alkaline Phosphatase 95 U/L (46-116) Total Protein 7.4 G/DL (6.4-8.2) Albumin 2.4 G/DL (3.4-5.0) L Globulin 5.0 g/dL Albumin/Globulin Ratio 0.5 (1.0-2.7) L Plan Problems: (1) Acute bronchitis (2) 2019 novel coronavirus disease (COVID-19) Assessment & Plan: ++ as per ID pulm input appreciated (3) Gram-negative bacteremia (4) Osteoporosis (5) UTI (urinary tract infection) (6) Altered mental state (7) Alzheimer's dementia (8) Sepsis (9) Acute encephalopathy (10) Severe sepsis (11) Aphasia (12) HTN (hypertension) (13) BPH (benign prostatic hyperplasia) (14) History of CVA (cerebrovascular accident) (15) Multifocal pneumonia (16) Decubitus skin ulcer Assessment & Plan: 79-year-old male presented to [facility] covered positive respiratory fevers admitted further care and management which time identified to have multiple decubitus skin ulcers and scrotal edema. Patient identified to have a stage III sacral buttock decubitus ulcer with periwound erythema and breakdown. Incontinence associated dermatitis identified. Care plan initiated after patient evaluation. Will follow with recommendations. Thank you DAILY ESTIMATED NEEDS: Needs based on Wound, DM, Cardiac 73kg 25-30 kcals/kg 0356-2185 total kcals 1.25-1.5 g protein/kg 91-109 g total protein 25-30 mL/kg 0422-7390 total fluid mLs NUTRITION DIAGNOSIS: * Swallowing difficulty R/T dysphagia as evidenced by NURSING DEPARTMENT CHAIRPERSON eval, NURSING DEPARTMENT CHAIRPERSON rec for mech soft ground with nectar thick liquids * Increased kcal/pro/micronutrients needs R/T wound healing as evidenced by admitted w/ wounds @ sacrum and BL ankles, pending eval. CURRENT DIET:ELVIA w/ mech soft ground w/ NTL PO DIET RECOMMENDATIONS: ELVIA + CCHO Med (texture per NURSING DEPARTMENT CHAIRPERSON) ADDITIONAL RECOMMENDATIONS: * Calibrated bedscale wt for accurate CBW * Monitor PO intake -> add Glucerna BID for now, monitor acceptance * Check A1C for eval of glycemic control * Wound healing: add MVI x 1, Vit C 500mg QD f/up w/ WC eval (17) Scrotal edema Assessment & Plan: Patient identified to have significant scrotal edema potential cellulitis on admission. No abscess identified. Towel placed under the scrotum. We will monitor over the course of the next few days Rojas Jerome May 25, 2020 16:20
[2020-05-25] MEDS ORDERED: Loading Dose:Remdesivir 200mg/NS 210ml IV SCH ×2 (18:00)
[2020-05-25] MEDS ORDERED: IV Preparation Fee MISC PRN (18:00)
--- NOTE | 2020-05-25 18:20 | Internal Med Progress Note ---
Subjective Date of Service: May 25, 2020 Physician Name YaneliDano Attending Physician Ahsan Hodges MD Current Medications Medications (Trade) Dose Ordered Sig/Ankush Route PRN Reason Start Time Stop Time Status Last Admin Dose Admin Acetaminophen (Tylenol) 650 mg Q4H PRN ORAL FEVER 05/20/20 17:00 06/19/20 16:59 Acetaminophen (Tylenol) 650 mg Q4H PRN RECTAL Mild Pain (Pain Scale 1-3) 05/24/20 11:30 06/23/20 11:29 05/24/20 23:51 Albuterol/ Ipratropium (Combivent Respimat) 1 puff Q4H PRN INH Shortness of Breath 05/20/20 17:15 06/19/20 17:14 Amlodipine Besylate (Norvasc) 5 mg DAILY ORAL 05/21/20 09:00 06/20/20 08:59 05/25/20 09:15 Ascorbic Acid (Vitamin C) 500 mg DAILY ORAL 05/23/20 09:00 06/22/20 08:59 05/25/20 09:15 Ceftriaxone Sodium 1 gm/ Dextrose 55 ml @ 110 mls/hr Q24H IVPB 05/21/20 14:00 05/28/20 13:59 05/25/20 13:04 Dexamethasone (Decadron) 6 mg DAILY ORAL 05/23/20 09:00 06/01/20 08:59 05/25/20 09:12 Dextrose (Dextrose 50%) 25 ml Q30M PRN IV Hypoglycemia 05/20/20 17:00 08/18/20 16:59 Dextrose (Dextrose 50%) 50 ml Q30M PRN IV Hypoglycemia 05/20/20 17:00 08/18/20 16:59 Dextrose/Sodium Chloride 1,000 ml @ 50 mls/hr Q20H IV 05/23/20 19:45 06/22/20 19:44 05/25/20 11:45 Donepezil HCl (Aricept) 5 mg DAILY ORAL 05/21/20 09:00 06/20/20 08:59 05/25/20 09:12 Heparin Sodium (Porcine) (Heparin 5000 units/ml) 5,000 units EVERY 12 HOURS SUBQ 05/20/20 21:00 07/04/20 20:59 05/23/20 09:06 Lisinopril (ZestriL) 5 mg DAILY ORAL 05/21/20 09:00 06/20/20 08:59 05/25/20 09:15 Multivitamins (Multivitamins) 1 tab DAILY ORAL 05/23/20 09:00 06/22/20 08:59 05/25/20 09:13 Ondansetron HCl (Zofran) 4 mg Q6H PRN IVP Nausea & Vomiting 05/20/20 17:00 06/19/20 16:59 Polyethylene Glycol (Miralax) 17 gm DAILYPRN PRN ORAL Constipation 05/20/20 17:00 06/19/20 16:59 Promethazine HCl/ Codeine (Phenergan with Codeine) 5 ml Q6H PRN ORAL cough 05/20/20 17:00 06/19/20 16:59 Remdesivir 100 mg/ Sodium Chloride 250 ml @ 250 mls/hr Q24H IV 05/26/20 18:00 05/29/20 18:59 Remdesivir 200 mg/ Sodium Chloride 250 ml @ 125 mls/hr ONCE IV 05/25/20 18:00 05/25/20 19:00 05/25/20 18:14 Tamsulosin HCl (Flomax) 0.4 mg DAILY ORAL 05/21/20 09:00 06/20/20 08:59 05/25/20 09:13 Allergies: Coded Allergies: No Known Allergies (Unverified , 04/30/12) ROS Limited/Unobtainable: Yes Subjective 79 YO M admitted with fever and dyspnea. Now COVID 19 pos. Cover for Int Med- Dr Hodges. Continues to spike fever to 102.2F Objective Last Vital Signs Date Time Temp Pulse Resp B/P (MAP) Pulse Ox O2 Delivery O2 Flow Rate FiO2 05/25/20 16:00 97.9 69 20 135/74 (94) 95 05/25/20 09:00 Nasal Cannula 4.0 05/24/20 20:09 28 Laboratory Tests Test 05/25/20 08:45 White Blood Count 4.7 K/UL (4.8-10.8) L Red Blood Count 5.00 M/UL (4.70-6.10) Hemoglobin 14.8 G/DL (14.2-18.0) Hematocrit 45.7 % (42.0-52.0) Mean Corpuscular Volume 91 FL (80-99) Mean Corpuscular Hemoglobin 29.7 PG (27.0-31.0) Mean Corpuscular Hemoglobin Concent 32.5 G/DL (32.0-36.0) Red Cell Distribution Width 14.0 % (11.6-14.8) Platelet Count 102 K/UL (150-450) L Mean Platelet Volume 11.1 FL (6.5-10.1) H Neutrophils (%) (Auto) 63.3 % (45.0-75.0) Lymphocytes (%) (Auto) 26.2 % (20.0-45.0) Monocytes (%) (Auto) 8.9 % (1.0-10.0) Eosinophils (%) (Auto) 0.1 % (0.0-3.0) Basophils (%) (Auto) 1.6 % (0.0-2.0) Sodium Level 140 MMOL/L (136-145) Potassium Level 3.9 MMOL/L (3.5-5.1) Chloride Level 103 MMOL/L (98-107) Carbon Dioxide Level 26 MMOL/L (21-32) Anion Gap 11 mmol/L (5-15) Blood Urea Nitrogen 18 mg/dL (7-18) Creatinine 1.1 MG/DL (0.55-1.30) Estimat Glomerular Filtration Rate > 60 mL/min (>60) Glucose Level 121 MG/DL (74-106) H Calcium Level 8.4 MG/DL (8.5-10.1) L Phosphorus Level 2.5 MG/DL (2.5-4.9) Magnesium Level 2.3 MG/DL (1.8-2.4) Total Bilirubin 0.4 MG/DL (0.2-1.0) Aspartate Amino Transf (AST/SGOT) 70 U/L (15-37) H Alanine Aminotransferase (ALT/SGPT) 58 U/L (12-78) Alkaline Phosphatase 95 U/L (46-116) Total Protein 7.4 G/DL (6.4-8.2) Albumin 2.4 G/DL (3.4-5.0) L Globulin 5.0 g/dL Albumin/Globulin Ratio 0.5 (1.0-2.7) L Microbiology Date/Time Source Procedure Growth Status 05/23/20 17:00 Blood Blood Culture - Preliminary NO GROWTH AFTER 24 HOURS Resulted 05/23/20 16:50 Blood Blood Culture - Preliminary NO GROWTH AFTER 24 HOURS Resulted Intake and Output 05/24/20 05/25/20 19:00 07:00 Intake Total 50 ml 600 ml Balance 50 ml 600 ml IV Total 50 ml 600 ml # Voids 3 # Bowel Movements 1 Objective PHYSICAL EXAMINATION: GENERAL: The patient is a well-developed, well-nourished, thin-appearing male, in no apparent distress. HEENT: Eyes, pupils are equal and responsive to light and accommodation. Extraocular movements are intact. NECK: Supple without lymphadenopathy. CHEST: Lungs are clear to auscultation bilaterally without wheezes, rales. CARDIOVASCULAR: Regular rate. S1, S2 are normal without murmurs, rubs, or gallops. ABDOMEN: Soft, nontender, and nondistended. Positive bowel sounds. No evidence of hepatosplenomegaly. Currently no rebound or guarding noted. EXTREMITIES: Negative for clubbing, cyanosis, or edema. RECTAL/GENITAL: Not performed. NEUROLOGIC: Cranial nerves II through XII are grossly intact without focal deficits. Motor strength is 5/5 bilaterally. Deep tendon reflexes are 2+ plantar. Assessment/Plan Assessment/Plan ASSESSMENT: This is a 79-year-old male. 1. Fever. 2. Dyspnea. 3. COVID-19 positive. 4. Congestive heart failure. 5. Hypertension. 6. Benign prostatic hypertrophy. 7. Osteoporosis. 8. Alzheimer dementia. 9. Ventriculomegaly. 10. Diabetes type 2. 11. Cerebrovascular disease. 12. Chronic renal failure. 13. Dysphagia. 14. Hypercholesterolemia. 15. Gastroesophageal reflux disease. TREATMENT: 1. Fever/dyspnea/COVID-19 positive. Infectious disease consultation = Dr. Cho. Pulmonary consultation = Dr. Kya Carreno. Continue azithromycin and ceftriaxone for probable underlying bacterial pneumonia. The patient has been started on Decadron. We will follow recommendation of Infectious Disease and Pulmonary. 2. Hypertension. Continue amlodipine as above. 3. Benign prostatic hypertrophy. Continue Flomax as above. 4. Osteoporosis. Continue Fosamax as above. 5. Alzheimer dementia. Continue Aricept as above. 6. Ventriculomegaly. 7. Diabetes type 2. 8. Cerebrovascular disease, status post cerebrovascular accident. 9. Chronic renal failure. 10. Dysphagia. 11. Hypercholesterolemia. Continue atorvastatin as above. 12. Gastroesophageal reflux disease. Dano Groves MD May 25, 2020 18:19
--- NOTE | 2020-05-25 19:39 | NUR ---
NURSE HAND-OFF REPORT: Important Events on Shift: Start on Rendesivir ATB Patient Status: Stable Full Code Diet: Regular Finely Chopped Mech Pending Orders: Pending Results/Labs: Pending MD notification: Latest Vital Signs: Temperature 97.9 , Pulse 69 , B/P 135 /74 , Respiratory Rate 20 , O2 SAT 95 , Nasal Cannula, O2 Flow Rate 4.0 . Vital Sign Comment: EKG Rhythm: Sinus Rhythm Rhythm change?: N MD Notified?: - MD Response: Latest Gonzalez Fall Score: 50 Fall Risk: High Risk Safety Measures: Call light Within Reach, Bed Alarm Zone 1, Side Rails Side Rails x3, Bed position Low and Locked. Fall Precautions: Yellow Socks Yellow Gown Door Sign Patient Fall Education Report given to
--- NOTE | 2020-05-25 19:42 | NUR ---
NURSE NOTES: Patient received from FLORES Almendarez. Patient is A/O x 1-2. Patient is resting comfortably in karo-fowlers p Patient was running Rendesivir ATB. No acute distress noted. Patient is on 2L NC sating at 94%. No pain reported. IV site is Left 20G on his hand. No bleeding noted. There is bruising on his left hand. Patient's bed is in the lowest position, side rails up time 3. Call light within reach. Patient educated to use call light to ask for assistance. Will continue plan of care.
[2020-05-25 20:00] VITALS: BP 97/52
--- NOTE | 2020-05-25 21:00 | NUR ---
NURSE NOTES: Non-administered Heparin do to patient platelet levels of 102.
[2020-05-26] VITALS: BP 101/64
[2020-05-26 04:00] VITALS: BP 104/62
--- NOTE | 2020-05-26 04:00 | NUR ---
NURSE NOTES: Patient refused Combivent Respimat INH. Explained the benefits of the medication but patient still refused to take it. Patient SPo2 Satreation dropped down to 90% on 2L NC had to increase oxygen to 3L NC patient SPO2 Saturation is now at 94%. No acute distress noted at this time. Will continue to monitor.
[2020-05-26 06:38] LABS: BASOPHILS % (AUTO) 0.6 % (0.0-2.0); HEMATOCRIT 39.9 % (42.0-52.0); HEMOGLOBIN 13.3 G/DL (14.2-18.0); LYMPHOCYTES % (AUTO) 23.1 % (20.0-45.0); MEAN CORPUSCULAR VOLUME 87 FL (80-99); MONOCYTES % (AUTO) 10.7 % (1.0-10.0); NEUTROPHILS % (AUTO) 65.6 % (45.0-75.0); PLATELET COUNT 116 K/UL (150-450); RED BLOOD COUNT 4.61 M/UL (4.70-6.10); RED CELL DISTRIBUTION WIDTH 12.1 % (11.6-14.8); WHITE BLOOD COUNT 4.4 K/UL (4.8-10.8)
[2020-05-26 07:05] LABS: ALBUMIN/GLOBULIN RATIO 0.5 (1.0-2.7); BILIRUBIN,TOTAL 0.3 MG/DL (0.2-1.0); CALCIUM 7.6 MG/DL (8.5-10.1); CREATININE 1.2 MG/DL (0.55-1.30); POTASSIUM 3.6 MMOL/L (3.5-5.1)
[2020-05-26] MEDS: D5 1/2NS 1,000 ML IV SCH (07:22)
--- NOTE | 2020-05-26 07:22 | NUR ---
NURSE NOTES: Had to manually enter bar code for D5 1/2 NS bag wound not scan.
--- NOTE | 2020-05-26 07:25 | NUR ---
NURSE HAND-OFF REPORT: Important Events on Shift:NA Patient Status: Stable Diet: No Na+ mechanical soft finely chopped nectar liquid Pending Orders: [] Pending Results/Labs:[] Pending MD notification:[] Latest Vital Signs: Temperature 98.5 , Pulse 62 , B/P 104 /62 , Respiratory Rate 20 , O2 SAT 94 , Nasal Cannula, O2 Flow Rate 2.0 . Vital Sign Comment: [] EKG Rhythm: Sinus Rhythm Rhythm change?: N MD Notified?: - MD Response: Latest Gonzalez Fall Score: 50 Fall Risk: High Risk Safety Measures: Call light Within Reach, Bed Alarm Zone 1, Side Rails Side Rails x3, Bed position Low and Locked. Fall Precautions: Yellow Socks Yellow Gown Door Sign Patient Fall Education Report given to Malachi TANNER.
--- NOTE | 2020-05-26 07:56 | NUR ---
NURSE NOTES: RECEIVED PATIENT AND REPORT FROM GIOVANNA TANNER IN BED, NO S/S OF PAIN NOTED AT THIS TIME, PATIENT IS ON 3L NC. EXPLAIN THE PLAN OF CARE TO PATIENT. IV IS INTACT AND PATENT WITH FLUIDS RUNNING. BED IS ON LOWEST POSITION, BEDSIDE RAILS IS UP X3, BRAKES ENGAGED FOR SAFETY. CALL LIGHT IS WITHIN REACH. WILL CONTINUE WITH THE PLAN OF CARE.
[2020-05-26 08:00] VITALS: BP 123/62
[2020-05-26] MEDS: Tamsulosin 0.4mg cap ORAL SCH (08:48)
[2020-05-26] MEDS: Donepezil 5mg Tab ORAL SCH (08:48)
[2020-05-26] MEDS: Ascorbic Acid 500mg tab ORAL SCH (08:49)
[2020-05-26] MEDS: Lisinopril 2.5mg tab ORAL SCH (08:50)
[2020-05-26] MEDS: Heparin 5000 units/ml inj SUBQ SCH ×2 (08:51→21:00)
[2020-05-26 12:00] VITALS: BP 103/58
--- NOTE | 2020-05-26 13:16 | Pulmonology Progress Note ---
Subjective ROS Limited/Unobtainable: Yes Constitutional: Reports: no symptoms HEENT: Repors: no symptoms Respiratory: Reports: no symptoms Allergies: Coded Allergies: No Known Allergies (Unverified , 04/30/12) Objective Last 24 Hour Vital Signs Date Time Temp Pulse Resp B/P (MAP) Pulse Ox O2 Delivery O2 Flow Rate FiO2 05/26/20 09:00 Nasal Cannula 2.0 05/26/20 08:51 67 123/62 05/26/20 08:50 123/62 05/26/20 08:00 62 05/26/20 08:00 98.4 62 20 123/62 (82) 97 05/26/20 04:00 62 05/26/20 04:00 98.5 61 20 104/62 (76) 94 05/26/20 00:00 62 05/26/20 00:00 98.7 74 21 101/64 (76) 94 05/25/20 21:00 Nasal Cannula 2.0 05/25/20 20:00 77 05/25/20 20:00 98.9 66 20 97/52 (67) 94 05/25/20 16:00 97.9 69 20 135/74 (94) 95 05/25/20 16:00 77 Intake and Output 05/25/20 05/26/20 19:00 07:00 Intake Total 170 ml 250 ml Output Total 450 ml 250 ml Balance -280 ml 0 ml Intake Oral 120 ml IV Total 50 ml 250 ml Output Urine Total 450 ml 250 ml # Voids 1 General Appearance: WD/WN HEENT: normocephalic, atraumatic Respiratory: chest wall non-tender, lungs clear, respiratory distress, decreased breath sounds Cardiovascular: normal peripheral pulses, normal rate Abdomen: normal bowel sounds, soft, non tender Genitourinary: normal external genitalia Extremities: no cyanosis 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 Microbiology Date/Time Source Procedure Growth Status 05/23/20 17:00 Blood Blood Culture - Preliminary NO GROWTH AFTER 48 HOURS Resulted 05/23/20 16:50 Blood Blood Culture - Preliminary NO GROWTH AFTER 48 HOURS Resulted Laboratory Tests 05/26/20 05:49: White Blood Count 4.4L, Red Blood Count 4.61L, Hemoglobin 13.3L, Hematocrit 39.9L, Mean Corpuscular Volume 87, Mean Corpuscular Hemoglobin 28.8, Mean Corpuscular Hemoglobin Concent 33.2, Red Cell Distribution Width 12.1, Platelet Count 116L, Mean Platelet Volume 8.0, Neutrophils (%) (Auto) 65.6, Lymphocytes ( %) (Auto) 23.1, Monocytes (%) (Auto) 10.7H, Eosinophils (%) (Auto) 0.0, Basophils (%) (Auto) 0.6, Erythrocyte Sedimentation Rate 60H, Fibrinogen 479H, D -Dimer 0.93H, Sodium Level 142, Potassium Level 3.6, Chloride Level 107, Carbon Dioxide Level 24, Anion Gap 11, Blood Urea Nitrogen 23H, Creatinine 1.2, Estimat Glomerular Filtration Rate 58.7, Glucose Level 170H, Calcium Level 7.6L , Phosphorus Level 3.0, Magnesium Level 2.2, Ferritin 1147H, Total Bilirubin 0.3 , Direct Bilirubin < 0.1, Aspartate Amino Transf (AST/SGOT) 60H, Alanine Aminotransferase (ALT/SGPT) 54, Alkaline Phosphatase 87, Lactate Dehydrogenase 305H, C-Reactive Protein, Quantitative 4.3H, Total Protein 6.4, Albumin 2.0L, Globulin 4.4, Albumin/Globulin Ratio 0.5L Current Medications Medications (Trade) Dose Ordered Sig/Ankush Route PRN Reason Start Time Stop Time Status Last Admin Dose Admin Acetaminophen (Tylenol) 650 mg Q4H PRN ORAL FEVER 05/20/20 17:00 06/19/20 16:59 Acetaminophen (Tylenol) 650 mg Q4H PRN RECTAL Mild Pain (Pain Scale 1-3) 05/24/20 11:30 06/23/20 11:29 05/24/20 23:51 Albuterol/ Ipratropium (Combivent Respimat) 1 puff Q4H PRN INH Shortness of Breath 05/20/20 17:15 06/19/20 17:14 Amlodipine Besylate (Norvasc) 5 mg DAILY ORAL 05/21/20 09:00 06/20/20 08:59 05/26/20 08:51 Ascorbic Acid (Vitamin C) 500 mg DAILY ORAL 05/23/20 09:00 06/22/20 08:59 05/26/20 08:49 Ceftriaxone Sodium 1 gm/ Dextrose 55 ml @ 110 mls/hr Q24H IVPB 05/21/20 14:00 05/28/20 13:59 05/25/20 13:04 Dexamethasone (Decadron) 6 mg DAILY ORAL 05/23/20 09:00 06/01/20 08:59 05/26/20 08:49 Dextrose (Dextrose 50%) 25 ml Q30M PRN IV Hypoglycemia 05/20/20 17:00 08/18/20 16:59 Dextrose (Dextrose 50%) 50 ml Q30M PRN IV Hypoglycemia 05/20/20 17:00 08/18/20 16:59 Dextrose/Sodium Chloride 1,000 ml @ 50 mls/hr Q20H IV 05/23/20 19:45 06/22/20 19:44 05/26/20 07:22 Donepezil HCl (Aricept) 5 mg DAILY ORAL 05/21/20 09:00 06/20/20 08:59 05/26/20 08:48 Heparin Sodium (Porcine) (Heparin 5000 units/ml) 5,000 units EVERY 12 HOURS SUBQ 05/20/20 21:00 07/04/20 20:59 05/23/20 09:06 Lisinopril (ZestriL) 5 mg DAILY ORAL 05/21/20 09:00 06/20/20 08:59 05/26/20 08:50 Multivitamins (Multivitamins) 1 tab DAILY ORAL 05/23/20 09:00 06/22/20 08:59 05/26/20 08:48 Ondansetron HCl (Zofran) 4 mg Q6H PRN IVP Nausea & Vomiting 05/20/20 17:00 06/19/20 16:59 Polyethylene Glycol (Miralax) 17 gm DAILYPRN PRN ORAL Constipation 05/20/20 17:00 06/19/20 16:59 Promethazine HCl/ Codeine (Phenergan with Codeine) 5 ml Q6H PRN ORAL cough 05/20/20 17:00 06/19/20 16:59 Remdesivir 100 mg/ Sodium Chloride 250 ml @ 250 mls/hr Q24H IV 05/26/20 18:00 05/29/20 18:59 Tamsulosin HCl (Flomax) 0.4 mg DAILY ORAL 05/21/20 09:00 06/20/20 08:59 05/26/20 08:48 Assessment/Plan Problems: (1) 2019 novel coronavirus disease (COVID-19) (2) Acute bronchitis (3) History of CVA (cerebrovascular accident) (4) BPH (benign prostatic hyperplasia) (5) HTN (hypertension) (6) Alzheimer's dementia Assessment/Plan all reviewed looks comfortable respiratory isolation check sputum, still pending iv abx ID recommendations appreciated f/u electrolytes titrate fio2 to sat of 92% f/u inflammatory markers, still elevated monitor BP dvt prophylaxis Kya Carreno MD May 26, 2020 13:16
[2020-05-26] MEDS: cefTRIAXone 1 GM in D5W 55 ML IVPB SCH (14:10)
[2020-05-26 16:00] VITALS: BP 104/61
--- NOTE | 2020-05-26 17:19 | Infectious Diseases Prog Note ---
Assessment/Plan Assessment: COVID19 PNeumonia -SP 2l NC > now at RA > 2l NC -05/23 CXR: Left lower lung/retrocardiac opacity which is similar in appearance to the previous study from May 22, 2020. -05/20 CXR: Bibasilar atelectasis. No acute process otherwise rapid COVID PCR + Low grade fever; improving No leukocytosis -u/a neg, ucx neg CONS bacteremia- likely contaminant -05/20 Bcx 1/4 CONS; 05/23 Bcx NTD CAD CVA COPD osteoporosis R shoulder surgery CKD DM2 dysphagia GERD aphasia HTN HLD BPH Dementia NC resident (Jr Olivares) Plan: -COntinue Ceftriaxone #/ -Decadron #6/10 -Requested Remdesivir #2/5 -05/25 SP Azithromcyin #6 -f/u cx -Monitor CBC/CMP, temperatures -COVID19 isolation -f/u repeat Bcx x2 Thank you for consulting [facility]. Will continue to follow along with you. Discussed with RN and pharmacy staff. Subjective Allergies: Coded Allergies: No Known Allergies (Unverified , 04/30/12) afebrile >36hrs at 2L NC Bcx NTD Objective Last 24 Hour Vital Signs Date Time Temp Pulse Resp B/P (MAP) Pulse Ox O2 Delivery O2 Flow Rate FiO2 05/26/20 12:00 80 05/26/20 12:00 99.0 80 20 103/58 (73) 96 05/26/20 09:00 Nasal Cannula 2.0 05/26/20 08:51 67 123/62 05/26/20 08:50 123/62 05/26/20 08:00 62 05/26/20 08:00 98.4 62 20 123/62 (82) 97 05/26/20 04:00 62 05/26/20 04:00 98.5 61 20 104/62 (76) 94 05/26/20 00:00 62 05/26/20 00:00 98.7 74 21 101/64 (76) 94 05/25/20 21:00 Nasal Cannula 2.0 05/25/20 20:00 77 05/25/20 20:00 98.9 66 20 97/52 (67) 94 Height (Feet): 5 Height (Inches): 5.00 Weight (Pounds): 159 Cardiovascular: RSR Respiratory: decreased breath sounds Abdomen: soft, non-tender, present bowel sounds Extremities: no cyanosis Laboratory Tests Test 05/26/20 05:49 White Blood Count 4.4 K/UL (4.8-10.8) L Red Blood Count 4.61 M/UL (4.70-6.10) L Hemoglobin 13.3 G/DL (14.2-18.0) L Hematocrit 39.9 % (42.0-52.0) L Mean Corpuscular Volume 87 FL (80-99) Mean Corpuscular Hemoglobin 28.8 PG (27.0-31.0) Mean Corpuscular Hemoglobin Concent 33.2 G/DL (32.0-36.0) Red Cell Distribution Width 12.1 % (11.6-14.8) Platelet Count 116 K/UL (150-450) L Mean Platelet Volume 8.0 FL (6.5-10.1) Neutrophils (%) (Auto) 65.6 % (45.0-75.0) Lymphocytes (%) (Auto) 23.1 % (20.0-45.0) Monocytes (%) (Auto) 10.7 % (1.0-10.0) H Eosinophils (%) (Auto) 0.0 % (0.0-3.0) Basophils (%) (Auto) 0.6 % (0.0-2.0) Erythrocyte Sedimentation Rate 60 MM/HR (0-20) H Fibrinogen 479 mg/dL (200-400) H D-Dimer 0.93 mg/L FEU (0.00-0.49) H Sodium Level 142 MMOL/L (136-145) Potassium Level 3.6 MMOL/L (3.5-5.1) Chloride Level 107 MMOL/L (98-107) Carbon Dioxide Level 24 MMOL/L (21-32) Anion Gap 11 mmol/L (5-15) Blood Urea Nitrogen 23 mg/dL (7-18) H Creatinine 1.2 MG/DL (0.55-1.30) Estimat Glomerular Filtration Rate 58.7 mL/min (>60) Glucose Level 170 MG/DL (74-106) H Calcium Level 7.6 MG/DL (8.5-10.1) L Phosphorus Level 3.0 MG/DL (2.5-4.9) Magnesium Level 2.2 MG/DL (1.8-2.4) Ferritin 1147 NG/ML (8-388) H Total Bilirubin 0.3 MG/DL (0.2-1.0) Direct Bilirubin < 0.1 MG/DL (0.0-0.3) Aspartate Amino Transf (AST/SGOT) 60 U/L (15-37) H Alanine Aminotransferase (ALT/SGPT) 54 U/L (12-78) Alkaline Phosphatase 87 U/L (46-116) Lactate Dehydrogenase 305 U/L (81-234) H C-Reactive Protein, Quantitative 4.3 mg/dL (0.00-0.90) H Total Protein 6.4 G/DL (6.4-8.2) Albumin 2.0 G/DL (3.4-5.0) L Globulin 4.4 g/dL Albumin/Globulin Ratio 0.5 (1.0-2.7) L Current Medications Medications (Trade) Dose Ordered Sig/Ankush Route PRN Reason Start Time Stop Time Status Last Admin Dose Admin Acetaminophen (Tylenol) 650 mg Q4H PRN ORAL FEVER 05/20/20 17:00 06/19/20 16:59 Acetaminophen (Tylenol) 650 mg Q4H PRN RECTAL Mild Pain (Pain Scale 1-3) 05/24/20 11:30 06/23/20 11:29 05/24/20 23:51 Albuterol/ Ipratropium (Combivent Respimat) 1 puff Q4H PRN INH Shortness of Breath 05/20/20 17:15 06/19/20 17:14 Amlodipine Besylate (Norvasc) 5 mg DAILY ORAL 05/21/20 09:00 06/20/20 08:59 05/26/20 08:51 Ascorbic Acid (Vitamin C) 500 mg DAILY ORAL 05/23/20 09:00 06/22/20 08:59 05/26/20 08:49 Ceftriaxone Sodium 1 gm/ Dextrose 55 ml @ 110 mls/hr Q24H IVPB 05/21/20 14:00 05/28/20 13:59 05/26/20 14:10 Dexamethasone (Decadron) 6 mg DAILY ORAL 05/23/20 09:00 06/01/20 08:59 05/26/20 08:49 Dextrose (Dextrose 50%) 25 ml Q30M PRN IV Hypoglycemia 05/20/20 17:00 08/18/20 16:59 Dextrose (Dextrose 50%) 50 ml Q30M PRN IV Hypoglycemia 05/20/20 17:00 08/18/20 16:59 Dextrose/Sodium Chloride 1,000 ml @ 50 mls/hr Q20H IV 05/23/20 19:45 06/22/20 19:44 05/26/20 07:22 Donepezil HCl (Aricept) 5 mg DAILY ORAL 05/21/20 09:00 06/20/20 08:59 05/26/20 08:48 Heparin Sodium (Porcine) (Heparin 5000 units/ml) 5,000 units EVERY 12 HOURS SUBQ 05/20/20 21:00 07/04/20 20:59 05/23/20 09:06 Lisinopril (ZestriL) 5 mg DAILY ORAL 05/21/20 09:00 06/20/20 08:59 05/26/20 08:50 Multivitamins (Multivitamins) 1 tab DAILY ORAL 05/23/20 09:00 06/22/20 08:59 05/26/20 08:48 Ondansetron HCl (Zofran) 4 mg Q6H PRN IVP Nausea & Vomiting 05/20/20 17:00 06/19/20 16:59 Polyethylene Glycol (Miralax) 17 gm DAILYPRN PRN ORAL Constipation 05/20/20 17:00 06/19/20 16:59 Promethazine HCl/ Codeine (Phenergan with Codeine) 5 ml Q6H PRN ORAL cough 05/20/20 17:00 06/19/20 16:59 Remdesivir 100 mg/ Sodium Chloride 250 ml @ 250 mls/hr Q24H IV 05/26/20 18:00 05/29/20 18:59 Tamsulosin HCl (Flomax) 0.4 mg DAILY ORAL 05/21/20 09:00 06/20/20 08:59 05/26/20 08:48 Ashley Cho M.D. May 26, 2020 17:19
--- NOTE | 2020-05-26 18:04 | Surgery Progress Note ---
Surgery Progress Note Subjective Additional Comments afebrile, HD stable labs reviewed micro noted exam stable Objective Last 24 Hour Vital Signs Date Time Temp Pulse Resp B/P (MAP) Pulse Ox O2 Delivery O2 Flow Rate FiO2 05/26/20 16:00 75 05/26/20 16:00 96.4 75 20 104/61 (75) 97 05/26/20 12:00 80 05/26/20 12:00 99.0 80 20 103/58 (73) 96 05/26/20 09:00 Nasal Cannula 2.0 05/26/20 08:51 67 123/62 05/26/20 08:50 123/62 05/26/20 08:00 62 05/26/20 08:00 98.4 62 20 123/62 (82) 97 05/26/20 04:00 62 05/26/20 04:00 98.5 61 20 104/62 (76) 94 05/26/20 00:00 62 05/26/20 00:00 98.7 74 21 101/64 (76) 94 05/25/20 21:00 Nasal Cannula 2.0 05/25/20 20:00 77 05/25/20 20:00 98.9 66 20 97/52 (67) 94 I&O Intake and Output 05/25/20 05/26/20 19:00 07:00 Intake Total 170 ml 250 ml Output Total 450 ml 250 ml Balance -280 ml 0 ml Intake Oral 120 ml IV Total 50 ml 250 ml Output Urine Total 450 ml 250 ml # Voids 1 Dressing: other Cardiovascular: RSR Respiratory: decreased breath sounds Abdomen: soft, non-tender, present bowel sounds Extremities: no tenderness, no cyanosis Laboratory Tests Test 05/26/20 05:49 White Blood Count 4.4 K/UL (4.8-10.8) L Red Blood Count 4.61 M/UL (4.70-6.10) L Hemoglobin 13.3 G/DL (14.2-18.0) L Hematocrit 39.9 % (42.0-52.0) L Mean Corpuscular Volume 87 FL (80-99) Mean Corpuscular Hemoglobin 28.8 PG (27.0-31.0) Mean Corpuscular Hemoglobin Concent 33.2 G/DL (32.0-36.0) Red Cell Distribution Width 12.1 % (11.6-14.8) Platelet Count 116 K/UL (150-450) L Mean Platelet Volume 8.0 FL (6.5-10.1) Neutrophils (%) (Auto) 65.6 % (45.0-75.0) Lymphocytes (%) (Auto) 23.1 % (20.0-45.0) Monocytes (%) (Auto) 10.7 % (1.0-10.0) H Eosinophils (%) (Auto) 0.0 % (0.0-3.0) Basophils (%) (Auto) 0.6 % (0.0-2.0) Erythrocyte Sedimentation Rate 60 MM/HR (0-20) H Fibrinogen 479 mg/dL (200-400) H D-Dimer 0.93 mg/L FEU (0.00-0.49) H Sodium Level 142 MMOL/L (136-145) Potassium Level 3.6 MMOL/L (3.5-5.1) Chloride Level 107 MMOL/L (98-107) Carbon Dioxide Level 24 MMOL/L (21-32) Anion Gap 11 mmol/L (5-15) Blood Urea Nitrogen 23 mg/dL (7-18) H Creatinine 1.2 MG/DL (0.55-1.30) Estimat Glomerular Filtration Rate 58.7 mL/min (>60) Glucose Level 170 MG/DL (74-106) H Calcium Level 7.6 MG/DL (8.5-10.1) L Phosphorus Level 3.0 MG/DL (2.5-4.9) Magnesium Level 2.2 MG/DL (1.8-2.4) Ferritin 1147 NG/ML (8-388) H Total Bilirubin 0.3 MG/DL (0.2-1.0) Direct Bilirubin < 0.1 MG/DL (0.0-0.3) Aspartate Amino Transf (AST/SGOT) 60 U/L (15-37) H Alanine Aminotransferase (ALT/SGPT) 54 U/L (12-78) Alkaline Phosphatase 87 U/L (46-116) Lactate Dehydrogenase 305 U/L (81-234) H C-Reactive Protein, Quantitative 4.3 mg/dL (0.00-0.90) H Total Protein 6.4 G/DL (6.4-8.2) Albumin 2.0 G/DL (3.4-5.0) L Globulin 4.4 g/dL Albumin/Globulin Ratio 0.5 (1.0-2.7) L Plan Problems: (1) Acute bronchitis (2) 2019 novel coronavirus disease (COVID-19) Assessment & Plan: ++ as per ID pulm input appreciated (3) Gram-negative bacteremia (4) Osteoporosis (5) UTI (urinary tract infection) (6) Altered mental state (7) Alzheimer's dementia (8) Sepsis (9) Acute encephalopathy (10) Severe sepsis (11) Aphasia (12) HTN (hypertension) (13) BPH (benign prostatic hyperplasia) (14) History of CVA (cerebrovascular accident) (15) Multifocal pneumonia (16) Decubitus skin ulcer Assessment & Plan: 79-year-old male presented to [facility] covered positive respiratory fevers admitted further care and management which time identified to have multiple decubitus skin ulcers and scrotal edema. Patient identified to have a stage III sacral buttock decubitus ulcer with periwound erythema and breakdown. Incontinence associated dermatitis identified. Care plan initiated after patient evaluation. Will follow with recommendations. Thank you DAILY ESTIMATED NEEDS: Needs based on Wound, DM, Cardiac 73kg 25-30 kcals/kg 3052-2987 total kcals 1.25-1.5 g protein/kg 91-109 g total protein 25-30 mL/kg 0061-2793 total fluid mLs NUTRITION DIAGNOSIS: * Swallowing difficulty R/T dysphagia as evidenced by PAEDODONTIST eval, PAEDODONTIST rec for mech soft ground with nectar thick liquids * Increased kcal/pro/micronutrients needs R/T wound healing as evidenced by admitted w/ wounds @ sacrum and BL ankles, pending eval. CURRENT DIET:ELVIA w/ mech soft ground w/ NTL PO DIET RECOMMENDATIONS: ELVIA + CCHO Med (texture per PAEDODONTIST) ADDITIONAL RECOMMENDATIONS: * Calibrated bedscale wt for accurate CBW * Monitor PO intake -> add Glucerna BID for now, monitor acceptance * Check A1C for eval of glycemic control * Wound healing: add MVI x 1, Vit C 500mg QD f/up w/ WC eval (17) Scrotal edema Assessment & Plan: Patient identified to have significant scrotal edema potential cellulitis on admission. No abscess identified. Towel placed under the scrotum. We will monitor over the course of the next few days Rojas Jerome May 26, 2020 18:04
--- NOTE | 2020-05-26 18:06 | Internal Med Progress Note ---
Subjective Date of Service: May 26, 2020 Physician Name YaneliDano Attending Physician Ahsan Hodges MD Current Medications Medications (Trade) Dose Ordered Sig/Ankush Route PRN Reason Start Time Stop Time Status Last Admin Dose Admin Acetaminophen (Tylenol) 650 mg Q4H PRN ORAL FEVER 05/20/20 17:00 06/19/20 16:59 Acetaminophen (Tylenol) 650 mg Q4H PRN RECTAL Mild Pain (Pain Scale 1-3) 05/24/20 11:30 06/23/20 11:29 05/24/20 23:51 Albuterol/ Ipratropium (Combivent Respimat) 1 puff Q4H PRN INH Shortness of Breath 05/20/20 17:15 06/19/20 17:14 Amlodipine Besylate (Norvasc) 5 mg DAILY ORAL 05/21/20 09:00 06/20/20 08:59 05/26/20 08:51 Ascorbic Acid (Vitamin C) 500 mg DAILY ORAL 05/23/20 09:00 06/22/20 08:59 05/26/20 08:49 Dexamethasone (Decadron) 6 mg DAILY ORAL 05/23/20 09:00 06/01/20 08:59 05/26/20 08:49 Dextrose (Dextrose 50%) 25 ml Q30M PRN IV Hypoglycemia 05/20/20 17:00 08/18/20 16:59 Dextrose (Dextrose 50%) 50 ml Q30M PRN IV Hypoglycemia 05/20/20 17:00 08/18/20 16:59 Dextrose/Sodium Chloride 1,000 ml @ 50 mls/hr Q20H IV 05/23/20 19:45 06/22/20 19:44 05/26/20 07:22 Donepezil HCl (Aricept) 5 mg DAILY ORAL 05/21/20 09:00 06/20/20 08:59 05/26/20 08:48 Heparin Sodium (Porcine) (Heparin 5000 units/ml) 5,000 units EVERY 12 HOURS SUBQ 05/20/20 21:00 07/04/20 20:59 05/23/20 09:06 Lisinopril (ZestriL) 5 mg DAILY ORAL 05/21/20 09:00 06/20/20 08:59 05/26/20 08:50 Multivitamins (Multivitamins) 1 tab DAILY ORAL 05/23/20 09:00 06/22/20 08:59 05/26/20 08:48 Ondansetron HCl (Zofran) 4 mg Q6H PRN IVP Nausea & Vomiting 05/20/20 17:00 06/19/20 16:59 Polyethylene Glycol (Miralax) 17 gm DAILYPRN PRN ORAL Constipation 05/20/20 17:00 06/19/20 16:59 Promethazine HCl/ Codeine (Phenergan with Codeine) 5 ml Q6H PRN ORAL cough 05/20/20 17:00 06/19/20 16:59 Remdesivir 100 mg/ Sodium Chloride 250 ml @ 250 mls/hr Q24H IV 05/26/20 18:00 05/29/20 18:59 Tamsulosin HCl (Flomax) 0.4 mg DAILY ORAL 05/21/20 09:00 06/20/20 08:59 05/26/20 08:48 Allergies: Coded Allergies: No Known Allergies (Unverified , 04/30/12) ROS Limited/Unobtainable: Yes Subjective 79 YO M admitted with fever and dyspnea. Now COVID 19 pos. Cover for Int Med- Dr Hodges. Continues to spike fever to 102.2F Objective Last Vital Signs Date Time Temp Pulse Resp B/P (MAP) Pulse Ox O2 Delivery O2 Flow Rate FiO2 05/26/20 16:00 75 05/26/20 16:00 96.4 20 104/61 (75) 97 05/26/20 09:00 Nasal Cannula 2.0 05/24/20 20:09 28 Laboratory Tests Test 05/26/20 05:49 White Blood Count 4.4 K/UL (4.8-10.8) L Red Blood Count 4.61 M/UL (4.70-6.10) L Hemoglobin 13.3 G/DL (14.2-18.0) L Hematocrit 39.9 % (42.0-52.0) L Mean Corpuscular Volume 87 FL (80-99) Mean Corpuscular Hemoglobin 28.8 PG (27.0-31.0) Mean Corpuscular Hemoglobin Concent 33.2 G/DL (32.0-36.0) Red Cell Distribution Width 12.1 % (11.6-14.8) Platelet Count 116 K/UL (150-450) L Mean Platelet Volume 8.0 FL (6.5-10.1) Neutrophils (%) (Auto) 65.6 % (45.0-75.0) Lymphocytes (%) (Auto) 23.1 % (20.0-45.0) Monocytes (%) (Auto) 10.7 % (1.0-10.0) H Eosinophils (%) (Auto) 0.0 % (0.0-3.0) Basophils (%) (Auto) 0.6 % (0.0-2.0) Erythrocyte Sedimentation Rate 60 MM/HR (0-20) H Fibrinogen 479 mg/dL (200-400) H D-Dimer 0.93 mg/L FEU (0.00-0.49) H Sodium Level 142 MMOL/L (136-145) Potassium Level 3.6 MMOL/L (3.5-5.1) Chloride Level 107 MMOL/L (98-107) Carbon Dioxide Level 24 MMOL/L (21-32) Anion Gap 11 mmol/L (5-15) Blood Urea Nitrogen 23 mg/dL (7-18) H Creatinine 1.2 MG/DL (0.55-1.30) Estimat Glomerular Filtration Rate 58.7 mL/min (>60) Glucose Level 170 MG/DL (74-106) H Calcium Level 7.6 MG/DL (8.5-10.1) L Phosphorus Level 3.0 MG/DL (2.5-4.9) Magnesium Level 2.2 MG/DL (1.8-2.4) Ferritin 1147 NG/ML (8-388) H Total Bilirubin 0.3 MG/DL (0.2-1.0) Direct Bilirubin < 0.1 MG/DL (0.0-0.3) Aspartate Amino Transf (AST/SGOT) 60 U/L (15-37) H Alanine Aminotransferase (ALT/SGPT) 54 U/L (12-78) Alkaline Phosphatase 87 U/L (46-116) Lactate Dehydrogenase 305 U/L (81-234) H C-Reactive Protein, Quantitative 4.3 mg/dL (0.00-0.90) H Total Protein 6.4 G/DL (6.4-8.2) Albumin 2.0 G/DL (3.4-5.0) L Globulin 4.4 g/dL Albumin/Globulin Ratio 0.5 (1.0-2.7) L Intake and Output 05/25/20 05/26/20 19:00 07:00 Intake Total 170 ml 250 ml Output Total 450 ml 250 ml Balance -280 ml 0 ml Intake Oral 120 ml IV Total 50 ml 250 ml Output Urine Total 450 ml 250 ml # Voids 1 Objective PHYSICAL EXAMINATION: GENERAL: The patient is a well-developed, well-nourished, thin-appearing male, in no apparent distress. HEENT: Eyes, pupils are equal and responsive to light and accommodation. Extraocular movements are intact. NECK: Supple without lymphadenopathy. CHEST: Lungs are clear to auscultation bilaterally without wheezes, rales. CARDIOVASCULAR: Regular rate. S1, S2 are normal without murmurs, rubs, or gallops. ABDOMEN: Soft, nontender, and nondistended. Positive bowel sounds. No evidence of hepatosplenomegaly. Currently no rebound or guarding noted. EXTREMITIES: Negative for clubbing, cyanosis, or edema. RECTAL/GENITAL: Not performed. NEUROLOGIC: Cranial nerves II through XII are grossly intact without focal deficits. Motor strength is 5/5 bilaterally. Deep tendon reflexes are 2+ plantar. Assessment/Plan Assessment/Plan ASSESSMENT: This is a 79-year-old male. 1. Fever. 2. Dyspnea. 3. COVID-19 positive. 4. Congestive heart failure. 5. Hypertension. 6. Benign prostatic hypertrophy. 7. Osteoporosis. 8. Alzheimer dementia. 9. Ventriculomegaly. 10. Diabetes type 2. 11. Cerebrovascular disease. 12. Chronic renal failure. 13. Dysphagia. 14. Hypercholesterolemia. 15. Gastroesophageal reflux disease. TREATMENT: 1. Fever/dyspnea/COVID-19 positive. Infectious disease consultation = Dr. Cho. Pulmonary consultation = Dr. Kya Carreno. Continue azithromycin and ceftriaxone for probable underlying bacterial pneumonia. Continue Remdesivir and Decadron. We will follow recommendation of Infectious Disease and Pulmonary. 2. Hypertension. Continue amlodipine as above. 3. Benign prostatic hypertrophy. Continue Flomax as above. 4. Osteoporosis. Continue Fosamax as above. 5. Alzheimer dementia. Continue Aricept as above. 6. Ventriculomegaly. 7. Diabetes type 2. 8. Cerebrovascular disease, status post cerebrovascular accident. 9. Chronic renal failure. 10. Dysphagia. 11. Hypercholesterolemia. Continue atorvastatin as above. 12. Gastroesophageal reflux disease. Dano Groves MD May 26, 2020 18:06
[2020-05-26] MEDS: Maintenance Dose:Remdesivir 100mg/NS 230ml x 4 Doses IV SCH ×2 (18:10)
--- NOTE | 2020-05-26 18:29 | NUR ---
NURSE HAND-OFF REPORT: Important Events on Shift:N Patient Status: stable Diet: No added salt diet, mechanical soft finely chopped, nectar liquid. Pending Orders: y Pending Results/Labs: n Pending MD notification: n Latest Vital Signs: Temperature 96.4 , Pulse 75 , B/P 104 /61 , Respiratory Rate 20 , O2 SAT 97 , Nasal Cannula, O2 Flow Rate 2.0 . Vital Sign Comment: EKG Rhythm: Sinus Rhythm Rhythm change?: N MD Notified?: - MD Response: Latest Gonzalez Fall Score: 50 Fall Risk: High Risk Safety Measures: Call light Within Reach, Bed Alarm Zone 1, Side Rails Side Rails x3, Bed position Low and Locked. Fall Precautions: Yellow Socks Yellow Gown Door Sign Patient Fall Education Report given to . Addendum: 05/26/20 at 1923 by CARINE HERRERA RN REPORT GIVEN TO EMI TANNER
--- NOTE | 2020-05-26 19:35 | NUR ---
NURSE NOTES: Received pt and report from FLORES Ly. Observed pt resting in bed with both eyes open. Pt is A/Ox1. revenue cycle specialist is in placed; pt is NSR. IV site is occluded. Will insert new IV shortly. Bed is in the lowest position, locked, and alarmed. No signs/symptoms of acute distress noted at this time. Will continue plan of care.
[2020-05-26 20:00] VITALS: BP 115/75
--- NOTE | 2020-05-26 20:00 | NUR ---
NURSE NOTES: New IV site on Right hand 22G. Intact, asymptomatic, and patent.
[2020-05-27] VITALS: BP 140/83
--- NOTE | 2020-05-27 02:15 | NUR ---
NURSE NOTES: Observed pt asleep comfortably. No signs/symptoms of acute distress noted.
[2020-05-27] MEDS: D5 1/2NS 1,000 ML IV SCH ×2 (02:59→23:45)
[2020-05-27 04:00] VITALS: BP 115/66
[2020-05-27 06:07] LABS: BASOPHILS % (AUTO) 0.5 % (0.0-2.0); HEMOGLOBIN 14.9 G/DL (14.2-18.0); LYMPHOCYTES % (AUTO) 20.5 % (20.0-45.0); MEAN CORPUSCULAR VOLUME 87 FL (80-99); MONOCYTES % (AUTO) 9.8 % (1.0-10.0); NEUTROPHILS % (AUTO) 69.1 % (45.0-75.0); PLATELET COUNT 145 K/UL (150-450); RED BLOOD COUNT 5.18 M/UL (4.70-6.10); RED CELL DISTRIBUTION WIDTH 12.2 % (11.6-14.8); WHITE BLOOD COUNT 5.5 K/UL (4.8-10.8)
--- NOTE | 2020-05-27 06:56 | NUR ---
NURSE NOTES: RECEIVED PATIENT AND REPORT FROM GIOVANNA MIDDLETON IN BED, NO S/S OF PAIN NOTED AT THIS TIME, PATIENT IS ON 3L NC. EXPLAIN THE PLAN OF CARE TO PATIENT. IV IS RIGHT HAND 22G, INTACT AND PATENT WITH FLUIDS RUNNING. BED IS ON LOWEST POSITION, BEDSIDE RAILS IS UP X3, BRAKES ENGAGED FOR SAFETY. CALL LIGHT IS WITHIN REACH. WILL CONTINUE WITH THE PLAN OF CARE.
[2020-05-27 07:02] LABS: ALANINE AMINOTRANSFERASE 54 U/L (12-78); ALBUMIN 2.2 G/DL (3.4-5.0); ALBUMIN/GLOBULIN RATIO 0.5 (1.0-2.7); ALKALINE PHOSPHATASE 93 U/L (46-116); ANION GAP 11 mmol/L (5-15); ASPARTATE AMINO TRANSFERASE 48 U/L (15-37); BILIRUBIN,TOTAL 0.4 MG/DL (0.2-1.0); BLOOD UREA NITROGEN 22 mg/dL (7-18); CALCIUM 7.7 MG/DL (8.5-10.1); CARBON DIOXIDE 25 MMOL/L (21-32); CHLORIDE 108 MMOL/L (98-107); CREATININE 1.1 MG/DL (0.55-1.30); POTASSIUM 3.9 MMOL/L (3.5-5.1); SODIUM 143 MMOL/L (136-145)
--- NOTE | 2020-05-27 07:10 | NUR ---
NURSE HAND-OFF REPORT: Important Events on Shift: Inserted new IV on pt. Endorsed to daysctft RN that warper creeler called this morning to recommend Glucerna supplement drink TID. Also, noticed that pt's glucose lab results this morning came back at 158. Endorsed to daysctft RN to ask MD for insulin sliding scale. Patient Status: Stable Diet: No added salt Pending Orders: Glucerna supplement drink TID Pending Results/Labs: AM Labs Pending MD notification: insulin sliding scale? Latest Vital Signs: Temperature 96.5 , Pulse 54 , B/P 115 /66 , Respiratory Rate 17 , O2 SAT 98 , Nasal Cannula, O2 Flow Rate 2.0 . EKG Rhythm: Sinus Bradycardia Rhythm change?: N Latest Gonzalez Fall Score: 50 Fall Risk: High Risk Safety Measures: Call light Within Reach, Bed Alarm Zone 1, Side Rails Side Rails x3, Bed position Low and Locked. Fall Precautions: Yellow Socks Yellow Gown Door Sign Patient Fall Education Report given to FLORES Ly.
[2020-05-27 08:00] VITALS: BP 104/71
[2020-05-27] MEDS: Tamsulosin 0.4mg cap ORAL SCH (08:30)
[2020-05-27] MEDS: Lisinopril 2.5mg tab ORAL SCH (08:30)
[2020-05-27] MEDS: Ascorbic Acid 500mg tab ORAL SCH (08:31)
[2020-05-27] MEDS: Donepezil 5mg Tab ORAL SCH (08:31)
[2020-05-27] MEDS: Heparin 5000 units/ml inj SUBQ SCH ×2 (08:32→20:28)
--- NOTE | 2020-05-27 08:59 | NUR ---
RD ASSESSMENT & RECOMMENDATIONS SEE CARE ACTIVITY FOR COMPLETE ASSESSMENT DAILY ESTIMATED NEEDS: Needs based on Wound, DM, Cardiac 73kg 25-30 kcals/kg 4458-7871 total kcals 1.25-1.5 g protein/kg 91-109 g total protein 25-30 mL/kg 4145-9966 total fluid mLs NUTRITION DIAGNOSIS: * Swallowing difficulty R/T dysphagia as evidenced by BUDGET AND POLICY ANALYST eval, BUDGET AND POLICY ANALYST rec for mech soft ground with nectar thick liquids * Increased kcal/pro/micronutrients needs R/T wound healing as evidenced by admitted w/ wounds @ sacrum (stage 3 per MD) and BL ankles. CURRENT DIET:ELVIA w/ mech soft ground w/ NTL PO DIET RECOMMENDATIONS: ELVIA (texture per BUDGET AND POLICY ANALYST) -> add CCHO MED w/ >50% po intake ADDITIONAL RECOMMENDATIONS: * Calibrated bedscale wt for accurate CBW * Monitor PO intake- add Glucerna TID w/ meal s Snacks in b/w meals as tolerated * Check A1C for eval of glycemic control * Wound healing: add MVI x 1, Vit C 500mg QD, ADALBERTO BID f/up w/ WC eval-> stage 3 sacral wound per MD
--- NOTE | 2020-05-27 10:15 | NUR ---
NURSE NOTES: NOTIFIED DR. BAEZ OF PATIENT'S BLOOD SUGAR OF 158. NO NEW ORDER. WILL CONTINUE TO MONITOR PATIENT.
[2020-05-27 12:00] VITALS: BP 98/59
--- NOTE | 2020-05-27 12:39 | Internal Med Progress Note ---
Subjective Date of Service: May 27, 2020 Physician Name YaneliDano Attending Physician Ahsan Hodges MD Current Medications Medications (Trade) Dose Ordered Sig/Ankush Route PRN Reason Start Time Stop Time Status Last Admin Dose Admin Acetaminophen (Tylenol) 650 mg Q4H PRN ORAL FEVER 05/20/20 17:00 06/19/20 16:59 Acetaminophen (Tylenol) 650 mg Q4H PRN RECTAL Mild Pain (Pain Scale 1-3) 05/24/20 11:30 06/23/20 11:29 05/24/20 23:51 Albuterol/ Ipratropium (Combivent Respimat) 1 puff Q4H PRN INH Shortness of Breath 05/20/20 17:15 06/19/20 17:14 Amlodipine Besylate (Norvasc) 5 mg DAILY ORAL 05/21/20 09:00 06/20/20 08:59 05/27/20 08:31 Ascorbic Acid (Vitamin C) 500 mg DAILY ORAL 05/23/20 09:00 06/22/20 08:59 05/27/20 08:31 Dexamethasone (Decadron) 6 mg DAILY ORAL 05/23/20 09:00 06/01/20 08:59 05/27/20 08:31 Dextrose (Dextrose 50%) 25 ml Q30M PRN IV Hypoglycemia 05/20/20 17:00 08/18/20 16:59 Dextrose (Dextrose 50%) 50 ml Q30M PRN IV Hypoglycemia 05/20/20 17:00 08/18/20 16:59 Dextrose/Sodium Chloride 1,000 ml @ 50 mls/hr Q20H IV 05/23/20 19:45 06/22/20 19:44 05/27/20 02:59 Donepezil HCl (Aricept) 5 mg DAILY ORAL 05/21/20 09:00 06/20/20 08:59 05/27/20 08:31 Heparin Sodium (Porcine) (Heparin 5000 units/ml) 5,000 units EVERY 12 HOURS SUBQ 05/20/20 21:00 07/04/20 20:59 05/23/20 09:06 Lisinopril (ZestriL) 5 mg DAILY ORAL 05/21/20 09:00 06/20/20 08:59 05/27/20 08:30 Multivitamins (Multivitamins) 1 tab DAILY ORAL 05/23/20 09:00 06/22/20 08:59 05/27/20 08:30 Ondansetron HCl (Zofran) 4 mg Q6H PRN IVP Nausea & Vomiting 05/20/20 17:00 06/19/20 16:59 Polyethylene Glycol (Miralax) 17 gm DAILYPRN PRN ORAL Constipation 05/20/20 17:00 06/19/20 16:59 Promethazine HCl/ Codeine (Phenergan with Codeine) 5 ml Q6H PRN ORAL cough 05/20/20 17:00 06/19/20 16:59 Remdesivir 100 mg/ Sodium Chloride 250 ml @ 250 mls/hr Q24H IV 05/26/20 18:00 05/29/20 18:59 05/26/20 18:10 Tamsulosin HCl (Flomax) 0.4 mg DAILY ORAL 05/21/20 09:00 06/20/20 08:59 05/27/20 08:30 Allergies: Coded Allergies: No Known Allergies (Unverified , 04/30/12) ROS Limited/Unobtainable: Yes Subjective 79 YO M admitted with fever and dyspnea. Now COVID 19 pos. Cover for Int Med-Dr Hodges. Objective Last Vital Signs Date Time Temp Pulse Resp B/P (MAP) Pulse Ox O2 Delivery O2 Flow Rate FiO2 05/27/20 09:00 Nasal Cannula 2.0 05/27/20 08:31 58 104/71 05/27/20 08:00 97.7 18 96 05/24/20 20:09 28 Laboratory Tests Test 05/27/20 05:08 White Blood Count 5.5 K/UL (4.8-10.8) Red Blood Count 5.18 M/UL (4.70-6.10) Hemoglobin 14.9 G/DL (14.2-18.0) Hematocrit 45.0 % (42.0-52.0) Mean Corpuscular Volume 87 FL (80-99) Mean Corpuscular Hemoglobin 28.8 PG (27.0-31.0) Mean Corpuscular Hemoglobin Concent 33.2 G/DL (32.0-36.0) Red Cell Distribution Width 12.2 % (11.6-14.8) Platelet Count 145 K/UL (150-450) L Mean Platelet Volume 7.9 FL (6.5-10.1) Neutrophils (%) (Auto) 69.1 % (45.0-75.0) Lymphocytes (%) (Auto) 20.5 % (20.0-45.0) Monocytes (%) (Auto) 9.8 % (1.0-10.0) Eosinophils (%) (Auto) 0.0 % (0.0-3.0) Basophils (%) (Auto) 0.5 % (0.0-2.0) Sodium Level 143 MMOL/L (136-145) Potassium Level 3.9 MMOL/L (3.5-5.1) Chloride Level 108 MMOL/L (98-107) H Carbon Dioxide Level 25 MMOL/L (21-32) Anion Gap 11 mmol/L (5-15) Blood Urea Nitrogen 22 mg/dL (7-18) H Creatinine 1.1 MG/DL (0.55-1.30) Estimat Glomerular Filtration Rate > 60 mL/min (>60) Glucose Level 158 MG/DL (74-106) H Calcium Level 7.7 MG/DL (8.5-10.1) L Total Bilirubin 0.4 MG/DL (0.2-1.0) Direct Bilirubin 0.2 MG/DL (0.0-0.3) Aspartate Amino Transf (AST/SGOT) 48 U/L (15-37) H Alanine Aminotransferase (ALT/SGPT) 54 U/L (12-78) Alkaline Phosphatase 93 U/L (46-116) Total Protein 6.8 G/DL (6.4-8.2) Albumin 2.2 G/DL (3.4-5.0) L Globulin 4.6 g/dL Albumin/Globulin Ratio 0.5 (1.0-2.7) L Intake and Output 05/26/20 05/27/20 19:00 07:00 Intake Total 240 ml 114 ml Output Total 200 ml Balance 40 ml 114 ml Intake Oral 240 ml 114 ml Output Urine Total 200 ml # Voids 2 Objective PHYSICAL EXAMINATION: GENERAL: The patient is a well-developed, well-nourished, thin-appearing male, in no apparent distress. HEENT: Eyes, pupils are equal and responsive to light and accommodation. Extraocular movements are intact. NECK: Supple without lymphadenopathy. CHEST: Lungs are clear to auscultation bilaterally without wheezes, rales. CARDIOVASCULAR: Regular rate. S1, S2 are normal without murmurs, rubs, or gallops. ABDOMEN: Soft, nontender, and nondistended. Positive bowel sounds. No evidence of hepatosplenomegaly. Currently no rebound or guarding noted. EXTREMITIES: Negative for clubbing, cyanosis, or edema. RECTAL/GENITAL: Not performed. NEUROLOGIC: Cranial nerves II through XII are grossly intact without focal deficits. Motor strength is 5/5 bilaterally. Deep tendon reflexes are 2+ plantar. Assessment/Plan Assessment/Plan ASSESSMENT: This is a 79-year-old male. 1. Fever. 2. Dyspnea. 3. COVID-19 positive. 4. Congestive heart failure. 5. Hypertension. 6. Benign prostatic hypertrophy. 7. Osteoporosis. 8. Alzheimer dementia. 9. Ventriculomegaly. 10. Diabetes type 2. 11. Cerebrovascular disease. 12. Chronic renal failure. 13. Dysphagia. 14. Hypercholesterolemia. 15. Gastroesophageal reflux disease. TREATMENT: 1. Fever/dyspnea/COVID-19 positive. Infectious disease consultation = Dr. Cho. Pulmonary consultation = Dr. Kya Carreno. Continue azithromycin and ceftriaxone for probable underlying bacterial pneumonia. Continue Remdesivir and Decadron. We will follow recommendation of Infectious Disease and Pulmonary. 2. Hypertension. Continue amlodipine as above. 3. Benign prostatic hypertrophy. Continue Flomax as above. 4. Osteoporosis. Continue Fosamax as above. 5. Alzheimer dementia. Continue Aricept as above. 6. Ventriculomegaly. 7. Diabetes type 2. 8. Cerebrovascular disease, status post cerebrovascular accident. 9. Chronic renal failure. 10. Dysphagia. 11. Hypercholesterolemia. Continue atorvastatin as above. 12. Gastroesophageal reflux disease. Dano Groves MD May 27, 2020 12:39
--- NOTE | 2020-05-27 13:58 | Surgery Progress Note ---
Surgery Progress Note Subjective Symptoms: improved, tolerating diet, passing flatus Objective Last 24 Hour Vital Signs Date Time Temp Pulse Resp B/P (MAP) Pulse Ox O2 Delivery O2 Flow Rate FiO2 05/27/20 12:00 97.9 60 18 98/59 (72) 95 05/27/20 12:00 60 05/27/20 09:00 Nasal Cannula 2.0 05/27/20 08:31 58 104/71 05/27/20 08:30 104/71 05/27/20 08:00 54 05/27/20 08:00 97.7 54 18 104/71 (82) 96 05/27/20 04:00 96.5 54 17 115/66 (82) 98 05/27/20 04:00 54 05/27/20 00:00 56 05/27/20 00:00 96.7 57 17 140/83 (102) 97 05/26/20 21:00 Nasal Cannula 2.0 05/26/20 20:00 97.9 82 20 115/75 (88) 96 05/26/20 20:00 82 05/26/20 16:00 75 05/26/20 16:00 96.4 75 20 104/61 (75) 97 I&O Intake and Output 05/26/20 05/27/20 19:00 07:00 Intake Total 240 ml 114 ml Output Total 200 ml Balance 40 ml 114 ml Intake Oral 240 ml 114 ml Output Urine Total 200 ml # Voids 2 Dressing: other Wound: other Cardiovascular: RSR Respiratory: decreased breath sounds Abdomen: soft, non-tender, present bowel sounds Extremities: no tenderness, no cyanosis Laboratory Tests Test 05/27/20 05:08 White Blood Count 5.5 K/UL (4.8-10.8) Red Blood Count 5.18 M/UL (4.70-6.10) Hemoglobin 14.9 G/DL (14.2-18.0) Hematocrit 45.0 % (42.0-52.0) Mean Corpuscular Volume 87 FL (80-99) Mean Corpuscular Hemoglobin 28.8 PG (27.0-31.0) Mean Corpuscular Hemoglobin Concent 33.2 G/DL (32.0-36.0) Red Cell Distribution Width 12.2 % (11.6-14.8) Platelet Count 145 K/UL (150-450) L Mean Platelet Volume 7.9 FL (6.5-10.1) Neutrophils (%) (Auto) 69.1 % (45.0-75.0) Lymphocytes (%) (Auto) 20.5 % (20.0-45.0) Monocytes (%) (Auto) 9.8 % (1.0-10.0) Eosinophils (%) (Auto) 0.0 % (0.0-3.0) Basophils (%) (Auto) 0.5 % (0.0-2.0) Sodium Level 143 MMOL/L (136-145) Potassium Level 3.9 MMOL/L (3.5-5.1) Chloride Level 108 MMOL/L (98-107) H Carbon Dioxide Level 25 MMOL/L (21-32) Anion Gap 11 mmol/L (5-15) Blood Urea Nitrogen 22 mg/dL (7-18) H Creatinine 1.1 MG/DL (0.55-1.30) Estimat Glomerular Filtration Rate > 60 mL/min (>60) Glucose Level 158 MG/DL (74-106) H Calcium Level 7.7 MG/DL (8.5-10.1) L Total Bilirubin 0.4 MG/DL (0.2-1.0) Direct Bilirubin 0.2 MG/DL (0.0-0.3) Aspartate Amino Transf (AST/SGOT) 48 U/L (15-37) H Alanine Aminotransferase (ALT/SGPT) 54 U/L (12-78) Alkaline Phosphatase 93 U/L (46-116) Total Protein 6.8 G/DL (6.4-8.2) Albumin 2.2 G/DL (3.4-5.0) L Globulin 4.6 g/dL Albumin/Globulin Ratio 0.5 (1.0-2.7) L Plan Problems: (1) Acute bronchitis (2) 2019 novel coronavirus disease (COVID-19) Assessment & Plan: ++ as per ID pulm input appreciated (3) Gram-negative bacteremia (4) Osteoporosis (5) UTI (urinary tract infection) (6) Altered mental state (7) Alzheimer's dementia (8) Sepsis (9) Acute encephalopathy (10) Severe sepsis (11) Aphasia (12) HTN (hypertension) (13) BPH (benign prostatic hyperplasia) (14) History of CVA (cerebrovascular accident) (15) Multifocal pneumonia (16) Decubitus skin ulcer Assessment & Plan: 79-year-old male presented to [facility] covered positive respiratory fevers admitted further care and management which time identified to have multiple decubitus skin ulcers and scrotal edema. Patient identified to have a stage III sacral buttock decubitus ulcer with periwound erythema and breakdown. Incontinence associated dermatitis identified. Care plan initiated after patient evaluation. Will follow with recommendations. ling aparicio DAILY ESTIMATED NEEDS: Needs based on Wound, DM, Cardiac 73kg 25-30 kcals/kg 5813-2410 total kcals 1.25-1.5 g protein/kg 91-109 g total protein 25-30 mL/kg 4409-6911 total fluid mLs NUTRITION DIAGNOSIS: * Swallowing difficulty R/T dysphagia as evidenced by POLYGRAPH EXAMINER eval, POLYGRAPH EXAMINER rec for mech soft ground with nectar thick liquids * Increased kcal/pro/micronutrients needs R/T wound healing as evidenced by admitted w/ wounds @ sacrum and BL ankles, pending eval. CURRENT DIET:ELVIA w/ mech soft ground w/ NTL PO DIET RECOMMENDATIONS: ELVIA + CCHO Med (texture per POLYGRAPH EXAMINER) ADDITIONAL RECOMMENDATIONS: * Calibrated bedscale wt for accurate CBW * Monitor PO intake -> add Glucerna BID for now, monitor acceptance * Check A1C for eval of glycemic control * Wound healing: add MVI x 1, Vit C 500mg QD f/up w/ WC eval (17) Scrotal edema Assessment & Plan: Patient identified to have significant scrotal edema potential cellulitis on admission. No abscess identified. Towel placed under the scrotum. We will monitor over the course of the next few days Rojas Jerome May 27, 2020 13:58
--- NOTE | 2020-05-27 14:10 | Infectious Diseases Prog Note ---
Assessment/Plan Assessment: COVID19 PNeumonia -SP 2l NC > now at RA > 2l NC -05/23 CXR: Left lower lung/retrocardiac opacity which is similar in appearance to the previous study from May 22, 2020. -05/20 CXR: Bibasilar atelectasis. No acute process otherwise rapid COVID PCR + Low grade fever; SP No leukocytosis> Leukopenia, SP -u/a neg, ucx neg CONS bacteremia- likely contaminant -05/20 Bcx 1/4 CONS; 05/23 Bcx NTD CAD CVA COPD osteoporosis R shoulder surgery CKD DM2 dysphagia GERD aphasia HTN HLD BPH Dementia ID resident (Jr Olivares) Plan: -Decadron #/10 -Requested Remdesivir #3/5 -05/26 SP Ceftriaxone #7 -05/25 SP Azithromcyin #6 -f/u cx -Monitor CBC/CMP, temperatures -COVID19 isolation -f/u repeat Bcx x2 Thank you for consulting [facility]. Will continue to follow along with you. Discussed with RN and pharmacy staff. Subjective Allergies: Coded Allergies: No Known Allergies (Unverified , 04/30/12) afebrile >48hrs at 2L NC Bcx NTD leukopenia resolved Objective Last 24 Hour Vital Signs Date Time Temp Pulse Resp B/P (MAP) Pulse Ox O2 Delivery O2 Flow Rate FiO2 05/27/20 12:00 97.9 60 18 98/59 (72) 95 05/27/20 12:00 60 05/27/20 09:00 Nasal Cannula 2.0 05/27/20 08:31 58 104/71 05/27/20 08:30 104/71 05/27/20 08:00 54 05/27/20 08:00 97.7 54 18 104/71 (82) 96 05/27/20 04:00 96.5 54 17 115/66 (82) 98 05/27/20 04:00 54 05/27/20 00:00 56 05/27/20 00:00 96.7 57 17 140/83 (102) 97 05/26/20 21:00 Nasal Cannula 2.0 05/26/20 20:00 97.9 82 20 115/75 (88) 96 05/26/20 20:00 82 05/26/20 16:00 75 05/26/20 16:00 96.4 75 20 104/61 (75) 97 Height (Feet): 5 Height (Inches): 5.00 Weight (Pounds): 159 Cardiovascular: RSR Respiratory: decreased breath sounds Abdomen: soft, non-tender, present bowel sounds Extremities: no cyanosis Laboratory Tests Test 05/27/20 05:08 White Blood Count 5.5 K/UL (4.8-10.8) Red Blood Count 5.18 M/UL (4.70-6.10) Hemoglobin 14.9 G/DL (14.2-18.0) Hematocrit 45.0 % (42.0-52.0) Mean Corpuscular Volume 87 FL (80-99) Mean Corpuscular Hemoglobin 28.8 PG (27.0-31.0) Mean Corpuscular Hemoglobin Concent 33.2 G/DL (32.0-36.0) Red Cell Distribution Width 12.2 % (11.6-14.8) Platelet Count 145 K/UL (150-450) L Mean Platelet Volume 7.9 FL (6.5-10.1) Neutrophils (%) (Auto) 69.1 % (45.0-75.0) Lymphocytes (%) (Auto) 20.5 % (20.0-45.0) Monocytes (%) (Auto) 9.8 % (1.0-10.0) Eosinophils (%) (Auto) 0.0 % (0.0-3.0) Basophils (%) (Auto) 0.5 % (0.0-2.0) Sodium Level 143 MMOL/L (136-145) Potassium Level 3.9 MMOL/L (3.5-5.1) Chloride Level 108 MMOL/L (98-107) H Carbon Dioxide Level 25 MMOL/L (21-32) Anion Gap 11 mmol/L (5-15) Blood Urea Nitrogen 22 mg/dL (7-18) H Creatinine 1.1 MG/DL (0.55-1.30) Estimat Glomerular Filtration Rate > 60 mL/min (>60) Glucose Level 158 MG/DL (74-106) H Calcium Level 7.7 MG/DL (8.5-10.1) L Total Bilirubin 0.4 MG/DL (0.2-1.0) Direct Bilirubin 0.2 MG/DL (0.0-0.3) Aspartate Amino Transf (AST/SGOT) 48 U/L (15-37) H Alanine Aminotransferase (ALT/SGPT) 54 U/L (12-78) Alkaline Phosphatase 93 U/L (46-116) Total Protein 6.8 G/DL (6.4-8.2) Albumin 2.2 G/DL (3.4-5.0) L Globulin 4.6 g/dL Albumin/Globulin Ratio 0.5 (1.0-2.7) L Current Medications Medications (Trade) Dose Ordered Sig/Ankush Route PRN Reason Start Time Stop Time Status Last Admin Dose Admin Acetaminophen (Tylenol) 650 mg Q4H PRN ORAL FEVER 05/20/20 17:00 06/19/20 16:59 Acetaminophen (Tylenol) 650 mg Q4H PRN RECTAL Mild Pain (Pain Scale 1-3) 05/24/20 11:30 06/23/20 11:29 05/24/20 23:51 Albuterol/ Ipratropium (Combivent Respimat) 1 puff Q4H PRN INH Shortness of Breath 05/20/20 17:15 06/19/20 17:14 Amlodipine Besylate (Norvasc) 5 mg DAILY ORAL 05/21/20 09:00 06/20/20 08:59 05/27/20 08:31 Ascorbic Acid (Vitamin C) 500 mg DAILY ORAL 05/23/20 09:00 06/22/20 08:59 05/27/20 08:31 Dexamethasone (Decadron) 6 mg DAILY ORAL 05/23/20 09:00 06/01/20 08:59 05/27/20 08:31 Dextrose (Dextrose 50%) 25 ml Q30M PRN IV Hypoglycemia 05/20/20 17:00 08/18/20 16:59 Dextrose (Dextrose 50%) 50 ml Q30M PRN IV Hypoglycemia 05/20/20 17:00 08/18/20 16:59 Dextrose/Sodium Chloride 1,000 ml @ 50 mls/hr Q20H IV 05/23/20 19:45 06/22/20 19:44 05/27/20 02:59 Donepezil HCl (Aricept) 5 mg DAILY ORAL 05/21/20 09:00 06/20/20 08:59 05/27/20 08:31 Heparin Sodium (Porcine) (Heparin 5000 units/ml) 5,000 units EVERY 12 HOURS SUBQ 05/20/20 21:00 07/04/20 20:59 05/23/20 09:06 Lisinopril (ZestriL) 5 mg DAILY ORAL 05/21/20 09:00 06/20/20 08:59 05/27/20 08:30 Multivitamins (Multivitamins) 1 tab DAILY ORAL 05/23/20 09:00 06/22/20 08:59 05/27/20 08:30 Ondansetron HCl (Zofran) 4 mg Q6H PRN IVP Nausea & Vomiting 05/20/20 17:00 06/19/20 16:59 Polyethylene Glycol (Miralax) 17 gm DAILYPRN PRN ORAL Constipation 05/20/20 17:00 06/19/20 16:59 Promethazine HCl/ Codeine (Phenergan with Codeine) 5 ml Q6H PRN ORAL cough 05/20/20 17:00 06/19/20 16:59 Remdesivir 100 mg/ Sodium Chloride 250 ml @ 250 mls/hr Q24H IV 05/26/20 18:00 05/29/20 18:59 05/26/20 18:10 Tamsulosin HCl (Flomax) 0.4 mg DAILY ORAL 05/21/20 09:00 06/20/20 08:59 05/27/20 08:30 Ashley Cho M.D. May 27, 2020 14:10
[2020-05-27 16:00] VITALS: BP 102/64
--- NOTE | 2020-05-27 16:08 | NUR ---
CASE MANAGEMENT: REVIEW SI: COVID-19 . PNA . BACTEREMIA . UTI T 96.6 HR 54 RR 17 BP 98/59 SAT 95% NC/2L PLT CT 145 GLUCOSE 158 AST 48 IS: REMDESIVIR IV Q24HR DECADRON PO QD D5 1/2 NS IVF @ 50ML/HR TELEMETRY UNIT STATUS DCP: PATIENT IS FROM [facility]
--- NOTE | 2020-05-27 17:21 | Pulmonology Progress Note ---
Subjective ROS Limited/Unobtainable: Yes Constitutional: Reports: no symptoms HEENT: Repors: no symptoms Respiratory: Reports: no symptoms Allergies: Coded Allergies: No Known Allergies (Unverified , 04/30/12) Objective Last 24 Hour Vital Signs Date Time Temp Pulse Resp B/P (MAP) Pulse Ox O2 Delivery O2 Flow Rate FiO2 05/27/20 16:00 60 05/27/20 16:00 97.3 60 18 102/64 (77) 96 05/27/20 12:00 97.9 60 18 98/59 (72) 95 05/27/20 12:00 60 05/27/20 09:00 Nasal Cannula 2.0 05/27/20 08:31 58 104/71 05/27/20 08:30 104/71 05/27/20 08:00 54 05/27/20 08:00 97.7 54 18 104/71 (82) 96 05/27/20 04:00 96.5 54 17 115/66 (82) 98 05/27/20 04:00 54 05/27/20 00:00 56 05/27/20 00:00 96.7 57 17 140/83 (102) 97 05/26/20 21:00 Nasal Cannula 2.0 05/26/20 20:00 97.9 82 20 115/75 (88) 96 05/26/20 20:00 82 Intake and Output 05/26/20 05/27/20 19:00 07:00 Intake Total 240 ml 114 ml Output Total 200 ml Balance 40 ml 114 ml Intake Oral 240 ml 114 ml Output Urine Total 200 ml # Voids 2 General Appearance: WD/WN HEENT: normocephalic, atraumatic Respiratory: chest wall non-tender, lungs clear, respiratory distress, decreased breath sounds Cardiovascular: normal peripheral pulses, normal rate Abdomen: normal bowel sounds, soft, non tender Genitourinary: normal external genitalia Extremities: no cyanosis Neurologic: jelly maker II-XII grossly normal Laboratory Tests 05/27/20 05:08: White Blood Count 5.5, Red Blood Count 5.18, Hemoglobin 14.9, Hematocrit 45.0, Mean Corpuscular Volume 87, Mean Corpuscular Hemoglobin 28.8, Mean Corpuscular Hemoglobin Concent 33.2, Red Cell Distribution Width 12.2, Platelet Count 145L, Mean Platelet Volume 7.9, Neutrophils (%) (Auto) 69.1, Lymphocytes (%) (Auto) 20.5, Monocytes (%) (Auto) 9.8, Eosinophils (%) (Auto) 0.0, Basophils (%) (Auto) 0.5, Sodium Level 143, Potassium Level 3.9, Chloride Level 108H, Carbon Dioxide Level 25, Anion Gap 11, Blood Urea Nitrogen 22H, Creatinine 1.1, Estimat Glomerular Filtration Rate > 60, Glucose Level 158H, Calcium Level 7.7L, Total Bilirubin 0.4, Direct Bilirubin 0.2, Aspartate Amino Transf (AST/SGOT) 48H, Alanine Aminotransferase (ALT/SGPT) 54, Alkaline Phosphatase 93, Total Protein 6.8, Albumin 2.2L, Globulin 4.6, Albumin/Globulin Ratio 0.5L Current Medications Medications (Trade) Dose Ordered Sig/Ankush Route PRN Reason Start Time Stop Time Status Last Admin Dose Admin Acetaminophen (Tylenol) 650 mg Q4H PRN ORAL FEVER 05/20/20 17:00 06/19/20 16:59 Acetaminophen (Tylenol) 650 mg Q4H PRN RECTAL Mild Pain (Pain Scale 1-3) 05/24/20 11:30 06/23/20 11:29 05/24/20 23:51 Albuterol/ Ipratropium (Combivent Respimat) 1 puff Q4H PRN INH Shortness of Breath 05/20/20 17:15 06/19/20 17:14 Amlodipine Besylate (Norvasc) 5 mg DAILY ORAL 05/21/20 09:00 06/20/20 08:59 05/27/20 08:31 Ascorbic Acid (Vitamin C) 500 mg DAILY ORAL 05/23/20 09:00 06/22/20 08:59 05/27/20 08:31 Dexamethasone (Decadron) 6 mg DAILY ORAL 05/23/20 09:00 06/01/20 08:59 05/27/20 08:31 Dextrose (Dextrose 50%) 25 ml Q30M PRN IV Hypoglycemia 05/20/20 17:00 08/18/20 16:59 Dextrose (Dextrose 50%) 50 ml Q30M PRN IV Hypoglycemia 05/20/20 17:00 08/18/20 16:59 Dextrose/Sodium Chloride 1,000 ml @ 50 mls/hr Q20H IV 05/23/20 19:45 06/22/20 19:44 05/27/20 02:59 Donepezil HCl (Aricept) 5 mg DAILY ORAL 05/21/20 09:00 06/20/20 08:59 05/27/20 08:31 Heparin Sodium (Porcine) (Heparin 5000 units/ml) 5,000 units EVERY 12 HOURS SUBQ 05/20/20 21:00 07/04/20 20:59 05/23/20 09:06 Lisinopril (ZestriL) 5 mg DAILY ORAL 05/21/20 09:00 06/20/20 08:59 05/27/20 08:30 Multivitamins (Multivitamins) 1 tab DAILY ORAL 05/23/20 09:00 06/22/20 08:59 05/27/20 08:30 Ondansetron HCl (Zofran) 4 mg Q6H PRN IVP Nausea & Vomiting 05/20/20 17:00 06/19/20 16:59 Polyethylene Glycol (Miralax) 17 gm DAILYPRN PRN ORAL Constipation 05/20/20 17:00 06/19/20 16:59 Promethazine HCl/ Codeine (Phenergan with Codeine) 5 ml Q6H PRN ORAL cough 05/20/20 17:00 06/19/20 16:59 Remdesivir 100 mg/ Sodium Chloride 250 ml @ 250 mls/hr Q24H IV 05/26/20 18:00 05/29/20 18:59 05/26/20 18:10 Tamsulosin HCl (Flomax) 0.4 mg DAILY ORAL 05/21/20 09:00 06/20/20 08:59 05/27/20 08:30 Assessment/Plan Problems: (1) 2019 novel coronavirus disease (COVID-19) (2) Acute bronchitis (3) History of CVA (cerebrovascular accident) (4) BPH (benign prostatic hyperplasia) (5) HTN (hypertension) (6) Alzheimer's dementia Assessment/Plan looks comfortable respiratory isolation check sputum, still pending ID recommendations appreciated f/u electrolytes titrate fio2 to sat of 92% f/u inflammatory markers, still elevated monitor BP dvt prophylaxis Kya Carreno MD May 27, 2020 17:21
--- NOTE | 2020-05-27 17:52 | NUR ---
NURSE HAND-OFF REPORT: Important Events on Shift:N Patient Status: STABLE Diet: NO ADDED SALT MECHANICAL SOFT CHOPPED, NECTAR LIQUID Pending Orders: N Pending Results/Labs: N Pending MD notification: N Latest Vital Signs: Temperature 97.3 , Pulse 60 , B/P 102 /64 , Respiratory Rate 18 , O2 SAT 96 , Nasal Cannula, O2 Flow Rate 2.0 . Vital Sign Comment: EKG Rhythm: Sinus Bradycardia Rhythm change?: N MD Notified?: N - MD Response: Latest Gonzalez Fall Score: 50 Fall Risk: High Risk Safety Measures: Call light Within Reach, Bed Alarm Zone 1, Side Rails Side Rails x3, Bed position Low and Locked. Fall Precautions: Yellow Socks Yellow Gown Door Sign Patient Fall Education Report given to . Addendum: 05/27/20 at 1913 by CARINE HERRERA RN NURSE HAND-OFF REPORT GIVEN TO NIKA TANNER.
[2020-05-27] MEDS: Maintenance Dose:Remdesivir 100mg/NS 230ml x 4 Doses IV SCH ×2 (18:06)
--- NOTE | 2020-05-27 19:43 | NUR ---
NURSE NOTES: Patient received from Malachi TANNER. Patient in stable condition. A&O x 1-2 macedonian speaking. Saturating well on 3L of oxygen via Nasal cannula. IV site patent and intact on the Right hand 22G running D5 1/2NS @ 50cc/hr. No s/s of acute distress. Bed in lowest position and locked. Call light wand bedside table within reach. Will continue plan of care.
[2020-05-27 20:00] VITALS: BP 121/70
--- NOTE | 2020-05-27 21:17 | Cardiology Report ---
APPROVED REPORT EXAM: Two-dimensional and M-mode echocardiogram with Doppler and color Doppler. INDICATION Congestive Heart Failure M-Mode DIMENSIONS IVSd1.3 (0.7-1.1cm) LVDd4.1 (3.5-5.6cm) PWd1.2 (0.7-1.1cm) IVSs1.8 cm LVDs2.2 (2.5-4.0cm) PWs1.7 cm Other Information Quality : Poor <Conclusion> Technically difficult study due to poor acoustic windows and breating problem. Apical views are taken at Subcostal area. M-mode measurements of left ventricle not obtainable due to cardiac position (angle). Study quality precludes accurate assessment of regional wall motion to extent visualized. Normal left ventricular chamber size, systolic function and wall motion. Left ventricular ejection fraction estimated to be 55 %. Anterior Echo-free space, may be due to pericardial fat or effusion. Mild focal aortic valve sclerosis with adequate cusp excursion. Mildly thickened mitral valve leaflets with normal excursion. Mild mitral annulus and aortic root calcification. Pulmonic valve not well visualized. Normal tricuspid valve structure. Trace tricuspid regurgitation. Tricuspid systolic velocities suggests peak right ventricular systolic pressure of 14 mmHg.
[2020-05-28] VITALS: BP 114/68
[2020-05-28 04:00] VITALS: BP 123/66
[2020-05-28 07:22] LABS: ALANINE AMINOTRANSFERASE 51 U/L (12-78); ALBUMIN/GLOBULIN RATIO 0.5 (1.0-2.7); ALKALINE PHOSPHATASE 84 U/L (46-116); ANION GAP 9 mmol/L (5-15); ASPARTATE AMINO TRANSFERASE 42 U/L (15-37); BILIRUBIN,TOTAL 0.4 MG/DL (0.2-1.0); BLOOD UREA NITROGEN 21 mg/dL (7-18); CALCIUM 7.7 MG/DL (8.5-10.1); CARBON DIOXIDE 26 MMOL/L (21-32); CHLORIDE 107 MMOL/L (98-107); CREATININE 0.9 MG/DL (0.55-1.30); POTASSIUM 3.8 MMOL/L (3.5-5.1); SODIUM 142 MMOL/L (136-145)
[2020-05-28 07:35] LABS: BASOPHILS % (AUTO) 0.4 % (0.0-2.0); HEMATOCRIT 41.1 % (42.0-52.0); HEMOGLOBIN 13.7 G/DL (14.2-18.0); LYMPHOCYTES % (AUTO) 22.7 % (20.0-45.0); MEAN CORPUSCULAR VOLUME 86 FL (80-99); MONOCYTES % (AUTO) 10.6 % (1.0-10.0); NEUTROPHILS % (AUTO) 66.3 % (45.0-75.0); PLATELET COUNT 152 K/UL (150-450); RED BLOOD COUNT 4.78 M/UL (4.70-6.10); WHITE BLOOD COUNT 4.2 K/UL (4.8-10.8)
[2020-05-28 07:39] LABS: BILIRUBIN,DIRECT 0.1 MG/DL (0.0-0.3)
--- NOTE | 2020-05-28 07:44 | NUR ---
NURSE HAND-OFF REPORT: Important Events on Shift:[None] Patient Status: [Stable] Diet: [No added salty mech soft finely chopped thick liquids] Pending Orders: [] Pending Results/Labs:[] Pending MD notification:[] Latest Vital Signs: Temperature 96.6 , Pulse 50 , B/P 123 /66 , Respiratory Rate 18 , O2 SAT 94 , Nasal Cannula, O2 Flow Rate 2.0 . Vital Sign Comment: [] EKG Rhythm: Sinus Bradycardia Rhythm change?: N MD Notified?: N - MD Response: Latest Gonzalez Fall Score: 50 Fall Risk: High Risk Safety Measures: Call light Within Reach, Bed Alarm Zone 1, Side Rails Side Rails x3, Bed position Low and Locked. Fall Precautions: Yellow Socks Yellow Gown Door Sign Patient Fall Education Report given to [Kary RN].
--- NOTE | 2020-05-28 07:45 | NUR ---
NURSE NOTES: Received patient in bed asleep. O2 via NC intact, no SOB or acute distress. IV line intact. Condom catheter in place, draining yellow colored urine. HOB elevated. Bed locked in low position. Call light within reach. Will continue plan of care.
[2020-05-28 08:00] VITALS: BP 124/67
[2020-05-28] MEDS: Lisinopril 2.5mg tab ORAL SCH (08:32)
[2020-05-28] MEDS: Ascorbic Acid 500mg tab ORAL SCH (08:32)
[2020-05-28] MEDS: Tamsulosin 0.4mg cap ORAL SCH (08:33)
[2020-05-28] MEDS: Donepezil 5mg Tab ORAL SCH (08:33)
[2020-05-28] MEDS: Heparin 5000 units/ml inj SUBQ SCH ×2 (08:54→20:47)
--- NOTE | 2020-05-28 10:14 | Surgery Progress Note ---
Surgery Progress Note Subjective Additional Comments comfortable stable no n/v/f/c Objective Last 24 Hour Vital Signs Date Time Temp Pulse Resp B/P (MAP) Pulse Ox O2 Delivery O2 Flow Rate FiO2 05/28/20 08:33 53 124/67 05/28/20 08:32 124/67 05/28/20 08:00 97.5 53 20 124/67 (86) 95 05/28/20 04:00 51 05/28/20 04:00 96.6 50 18 123/66 (85) 94 05/28/20 00:00 66 05/28/20 00:00 96.3 66 18 114/68 (83) 94 05/27/20 21:00 Nasal Cannula 2.0 05/27/20 20:00 97.5 60 18 121/70 (87) 100 05/27/20 20:00 60 05/27/20 16:00 60 05/27/20 16:00 97.3 60 18 102/64 (77) 96 05/27/20 12:00 97.9 60 18 98/59 (72) 95 05/27/20 12:00 60 I&O Intake and Output 05/27/20 05/28/20 19:00 07:00 Intake Total 240 ml Output Total 1650 ml 650 ml Balance -1410 ml -650 ml Intake Oral 240 ml Output Urine Total 1650 ml 650 ml Dressing: other Wound: other Cardiovascular: RSR Respiratory: decreased breath sounds Abdomen: soft, non-tender, present bowel sounds Extremities: no tenderness, no cyanosis Laboratory Tests Test 05/28/20 05:05 White Blood Count 4.2 K/UL (4.8-10.8) L Red Blood Count 4.78 M/UL (4.70-6.10) Hemoglobin 13.7 G/DL (14.2-18.0) L Hematocrit 41.1 % (42.0-52.0) L Mean Corpuscular Volume 86 FL (80-99) Mean Corpuscular Hemoglobin 28.6 PG (27.0-31.0) Mean Corpuscular Hemoglobin Concent 33.3 G/DL (32.0-36.0) Red Cell Distribution Width 12.0 % (11.6-14.8) Platelet Count 152 K/UL (150-450) Mean Platelet Volume 9.1 FL (6.5-10.1) Neutrophils (%) (Auto) 66.3 % (45.0-75.0) Lymphocytes (%) (Auto) 22.7 % (20.0-45.0) Monocytes (%) (Auto) 10.6 % (1.0-10.0) H Eosinophils (%) (Auto) 0.0 % (0.0-3.0) Basophils (%) (Auto) 0.4 % (0.0-2.0) Fibrinogen Pending D-Dimer Pending Sodium Level 142 MMOL/L (136-145) Potassium Level 3.8 MMOL/L (3.5-5.1) Chloride Level 107 MMOL/L (98-107) Carbon Dioxide Level 26 MMOL/L (21-32) Anion Gap 9 mmol/L (5-15) Blood Urea Nitrogen 21 mg/dL (7-18) H Creatinine 0.9 MG/DL (0.55-1.30) Estimat Glomerular Filtration Rate > 60 mL/min (>60) Glucose Level 174 MG/DL (74-106) H Calcium Level 7.7 MG/DL (8.5-10.1) L Ferritin 1048 NG/ML (8-388) H Total Bilirubin 0.4 MG/DL (0.2-1.0) Direct Bilirubin 0.1 MG/DL (0.0-0.3) Aspartate Amino Transf (AST/SGOT) 42 U/L (15-37) H Alanine Aminotransferase (ALT/SGPT) 51 U/L (12-78) Alkaline Phosphatase 84 U/L (46-116) Lactate Dehydrogenase 302 U/L (81-234) H C-Reactive Protein, Quantitative 1.5 mg/dL (0.00-0.90) H Total Protein 6.3 G/DL (6.4-8.2) L Albumin 2.0 G/DL (3.4-5.0) L Globulin 4.3 g/dL Albumin/Globulin Ratio 0.5 (1.0-2.7) L Plan Problems: (1) Acute bronchitis (2) 2019 novel coronavirus disease (COVID-19) Assessment & Plan: ++ as per ID pulm input appreciated (3) Gram-negative bacteremia (4) Osteoporosis (5) UTI (urinary tract infection) (6) Altered mental state (7) Alzheimer's dementia (8) Sepsis (9) Acute encephalopathy (10) Severe sepsis (11) Aphasia (12) HTN (hypertension) (13) BPH (benign prostatic hyperplasia) (14) History of CVA (cerebrovascular accident) (15) Multifocal pneumonia (16) Decubitus skin ulcer Assessment & Plan: 79-year-old male presented to [facility] covered positive respiratory fevers admitted further care and management which time identified to have multiple decubitus skin ulcers and scrotal edema. Patient identified to have a stage III sacral buttock decubitus ulcer with periwound erythema and breakdown. Incontinence associated dermatitis identified. Care plan initiated after patient evaluation. Will follow with recommendations. Thank you DAILY ESTIMATED NEEDS: Needs based on Wound, DM, Cardiac 73kg 25-30 kcals/kg 6132-2370 total kcals 1.25-1.5 g protein/kg 91-109 g total protein 25-30 mL/kg 3895-6048 total fluid mLs NUTRITION DIAGNOSIS: * Swallowing difficulty R/T dysphagia as evidenced by SEWING SUPERVISOR eval, SEWING SUPERVISOR rec for mech soft ground with nectar thick liquids * Increased kcal/pro/micronutrients needs R/T wound healing as evidenced by admitted w/ wounds @ sacrum and BL ankles, pending eval. CURRENT DIET:ELVIA w/ mech soft ground w/ NTL PO DIET RECOMMENDATIONS: ELVIA + CCHO Med (texture per SEWING SUPERVISOR) ADDITIONAL RECOMMENDATIONS: * Calibrated bedscale wt for accurate CBW * Monitor PO intake -> add Glucerna BID for now, monitor acceptance * Check A1C for eval of glycemic control * Wound healing: add MVI x 1, Vit C 500mg QD f/up w/ WC eval (17) Scrotal edema Assessment & Plan: Patient identified to have significant scrotal edema potential cellulitis on admission. No abscess identified. Towel placed under the scrotum. We will monitor over the course of the next few days Rojas Jerome May 28, 2020 10:14
[2020-05-28 11:48] VITALS: BP 109/65
--- NOTE | 2020-05-28 12:12 | Pulmonology Progress Note ---
Subjective ROS Limited/Unobtainable: Yes Constitutional: Reports: no symptoms HEENT: Repors: no symptoms Respiratory: Reports: no symptoms Allergies: Coded Allergies: No Known Allergies (Unverified , 04/30/12) Objective Last 24 Hour Vital Signs Date Time Temp Pulse Resp B/P (MAP) Pulse Ox O2 Delivery O2 Flow Rate FiO2 05/28/20 11:48 97.2 57 20 109/65 (80) 96 05/28/20 09:00 Nasal Cannula 3.0 05/28/20 08:33 53 124/67 05/28/20 08:32 124/67 05/28/20 08:00 97.5 53 20 124/67 (86) 95 05/28/20 08:00 50 05/28/20 04:00 51 05/28/20 04:00 96.6 50 18 123/66 (85) 94 05/28/20 00:00 66 05/28/20 00:00 96.3 66 18 114/68 (83) 94 05/27/20 21:00 Nasal Cannula 2.0 05/27/20 20:00 97.5 60 18 121/70 (87) 100 05/27/20 20:00 60 05/27/20 16:00 60 05/27/20 16:00 97.3 60 18 102/64 (77) 96 Intake and Output 05/27/20 05/28/20 19:00 07:00 Intake Total 240 ml Output Total 1650 ml 650 ml Balance -1410 ml -650 ml Intake Oral 240 ml Output Urine Total 1650 ml 650 ml General Appearance: WD/WN HEENT: normocephalic, atraumatic Respiratory: chest wall non-tender, lungs clear, respiratory distress, decreased breath sounds Cardiovascular: normal peripheral pulses, normal rate Abdomen: normal bowel sounds, soft, non tender Genitourinary: normal external genitalia Extremities: no cyanosis 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 Lymphatic: no neck adenopathy Laboratory Tests 05/28/20 05:05: White Blood Count 4.2L, Red Blood Count 4.78, Hemoglobin 13.7L, Hematocrit 41.1L , Mean Corpuscular Volume 86, Mean Corpuscular Hemoglobin 28.6, Mean Corpuscular Hemoglobin Concent 33.3, Red Cell Distribution Width 12.0, Platelet Count 152, Mean Platelet Volume 9.1, Neutrophils (%) (Auto) 66.3, Lymphocytes (%) (Auto) 22.7, Monocytes (%) (Auto) 10.6H, Eosinophils (%) (Auto) 0.0, Basophils (%) (Auto) 0.4, Fibrinogen 441H, D-Dimer 0.88H, Sodium Level 142, Potassium Level 3.8, Chloride Level 107, Carbon Dioxide Level 26, Anion Gap 9, Blood Urea Nitrogen 21H, Creatinine 0.9, Estimat Glomerular Filtration Rate > 60, Glucose Level 174H, Calcium Level 7.7L, Ferritin 1048H, Total Bilirubin 0.4, Direct Bilirubin 0.1, Aspartate Amino Transf (AST/SGOT) 42H, Alanine Aminotransferase (ALT/SGPT) 51, Alkaline Phosphatase 84, Lactate Dehydrogenase 302H, C-Reactive Protein, Quantitative 1.5H, Total Protein 6.3L, Albumin 2.0L, Globulin 4.3, Albumin/Globulin Ratio 0.5L Current Medications Medications (Trade) Dose Ordered Sig/Ankush Route PRN Reason Start Time Stop Time Status Last Admin Dose Admin Acetaminophen (Tylenol) 650 mg Q4H PRN ORAL FEVER 05/20/20 17:00 06/19/20 16:59 Acetaminophen (Tylenol) 650 mg Q4H PRN RECTAL Mild Pain (Pain Scale 1-3) 05/24/20 11:30 06/23/20 11:29 05/24/20 23:51 Albuterol/ Ipratropium (Combivent Respimat) 1 puff Q4H PRN INH Shortness of Breath 05/20/20 17:15 06/19/20 17:14 Amlodipine Besylate (Norvasc) 5 mg DAILY ORAL 05/21/20 09:00 06/20/20 08:59 05/28/20 08:33 Ascorbic Acid (Vitamin C) 500 mg DAILY ORAL 05/23/20 09:00 06/22/20 08:59 05/28/20 08:32 Dexamethasone (Decadron) 6 mg DAILY ORAL 05/23/20 09:00 06/01/20 08:59 05/28/20 08:33 Dextrose (Dextrose 50%) 25 ml Q30M PRN IV Hypoglycemia 05/20/20 17:00 08/18/20 16:59 Dextrose (Dextrose 50%) 50 ml Q30M PRN IV Hypoglycemia 05/20/20 17:00 08/18/20 16:59 Dextrose/Sodium Chloride 1,000 ml @ 50 mls/hr Q20H IV 05/23/20 19:45 06/22/20 19:44 05/27/20 23:45 Donepezil HCl (Aricept) 5 mg DAILY ORAL 05/21/20 09:00 06/20/20 08:59 05/28/20 08:33 Heparin Sodium (Porcine) (Heparin 5000 units/ml) 5,000 units EVERY 12 HOURS SUBQ 05/20/20 21:00 07/04/20 20:59 05/27/20 20:28 Lisinopril (ZestriL) 5 mg DAILY ORAL 05/21/20 09:00 06/20/20 08:59 05/28/20 08:32 Multivitamins (Multivitamins) 1 tab DAILY ORAL 05/23/20 09:00 06/22/20 08:59 05/28/20 08:33 Ondansetron HCl (Zofran) 4 mg Q6H PRN IVP Nausea & Vomiting 05/20/20 17:00 06/19/20 16:59 Polyethylene Glycol (Miralax) 17 gm DAILYPRN PRN ORAL Constipation 05/20/20 17:00 06/19/20 16:59 Promethazine HCl/ Codeine (Phenergan with Codeine) 5 ml Q6H PRN ORAL cough 05/20/20 17:00 06/19/20 16:59 Remdesivir 100 mg/ Sodium Chloride 250 ml @ 250 mls/hr Q24H IV 05/26/20 18:00 05/29/20 18:59 05/27/20 18:06 Tamsulosin HCl (Flomax) 0.4 mg DAILY ORAL 05/21/20 09:00 06/20/20 08:59 05/28/20 08:33 Assessment/Plan Problems: (1) 2019 novel coronavirus disease (COVID-19) (2) Acute bronchitis (3) History of CVA (cerebrovascular accident) (4) BPH (benign prostatic hyperplasia) (5) HTN (hypertension) (6) Alzheimer's dementia Assessment/Plan afebrile looks comfortable respiratory isolation check sputum, still pending f/u electrolytes titrate fio2 to sat of 92% f/u inflammatory markers, still elevated monitor BP dvt prophylaxis Kya Carreno MD May 28, 2020 12:12
--- NOTE | 2020-05-28 13:49 | Infectious Diseases Prog Note ---
Assessment/Plan Assessment: COVID19 PNeumonia -SP 2l NC > now at RA > 2l NC -05/23 CXR: Left lower lung/retrocardiac opacity which is similar in appearance to the previous study from May 22, 2020. -05/20 CXR: Bibasilar atelectasis. No acute process otherwise rapid COVID PCR + Low grade fever; SP No leukocytosis> Leukopenia, SP -u/a neg, ucx neg CONS bacteremia- likely contaminant -05/20 Bcx 1/ CONS; 05/23 Bcx NTD CAD CVA COPD osteoporosis R shoulder surgery CKD DM2 dysphagia GERD aphasia HTN HLD BPH Dementia [place] resident (Jr Olivares) Plan: -Decadron #/ -Requested Remdesivir #4/5 -05/26 SP Ceftriaxone #7 -05/25 SP Azithromcyin #6 -f/u cx -Monitor CBC/CMP, temperatures -COVID19 isolation -f/u repeat Bcx x2 Thank you for consulting [facility]. Will continue to follow along with you. Discussed with RN and pharmacy staff. Subjective Allergies: Coded Allergies: No Known Allergies (Unverified , 04/30/12) afebrile >72hrs at 2L NC Bcx NTD Objective Last 24 Hour Vital Signs Date Time Temp Pulse Resp B/P (MAP) Pulse Ox O2 Delivery O2 Flow Rate FiO2 05/28/20 11:48 97.2 57 20 109/65 (80) 96 05/28/20 09:00 Nasal Cannula 3.0 05/28/20 08:33 53 124/67 05/28/20 08:32 124/67 05/28/20 08:00 97.5 53 20 124/67 (86) 95 05/28/20 08:00 50 05/28/20 04:00 51 05/28/20 04:00 96.6 50 18 123/66 (85) 94 05/28/20 00:00 66 05/28/20 00:00 96.3 66 18 114/68 (83) 94 05/27/20 21:00 Nasal Cannula 2.0 05/27/20 20:00 97.5 60 18 121/70 (87) 100 05/27/20 20:00 60 05/27/20 16:00 60 05/27/20 16:00 97.3 60 18 102/64 (77) 96 Height (Feet): 5 Height (Inches): 5.00 Weight (Pounds): 159 Cardiovascular: RSR Respiratory: decreased breath sounds Abdomen: soft, non-tender, present bowel sounds Extremities: no cyanosis Laboratory Tests Test 05/28/20 05:05 White Blood Count 4.2 K/UL (4.8-10.8) L Red Blood Count 4.78 M/UL (4.70-6.10) Hemoglobin 13.7 G/DL (14.2-18.0) L Hematocrit 41.1 % (42.0-52.0) L Mean Corpuscular Volume 86 FL (80-99) Mean Corpuscular Hemoglobin 28.6 PG (27.0-31.0) Mean Corpuscular Hemoglobin Concent 33.3 G/DL (32.0-36.0) Red Cell Distribution Width 12.0 % (11.6-14.8) Platelet Count 152 K/UL (150-450) Mean Platelet Volume 9.1 FL (6.5-10.1) Neutrophils (%) (Auto) 66.3 % (45.0-75.0) Lymphocytes (%) (Auto) 22.7 % (20.0-45.0) Monocytes (%) (Auto) 10.6 % (1.0-10.0) H Eosinophils (%) (Auto) 0.0 % (0.0-3.0) Basophils (%) (Auto) 0.4 % (0.0-2.0) Fibrinogen 441 mg/dL (200-400) H D-Dimer 0.88 mg/L FEU (0.00-0.49) H Sodium Level 142 MMOL/L (136-145) Potassium Level 3.8 MMOL/L (3.5-5.1) Chloride Level 107 MMOL/L (98-107) Carbon Dioxide Level 26 MMOL/L (21-32) Anion Gap 9 mmol/L (5-15) Blood Urea Nitrogen 21 mg/dL (7-18) H Creatinine 0.9 MG/DL (0.55-1.30) Estimat Glomerular Filtration Rate > 60 mL/min (>60) Glucose Level 174 MG/DL (74-106) H Calcium Level 7.7 MG/DL (8.5-10.1) L Ferritin 1048 NG/ML (8-388) H Total Bilirubin 0.4 MG/DL (0.2-1.0) Direct Bilirubin 0.1 MG/DL (0.0-0.3) Aspartate Amino Transf (AST/SGOT) 42 U/L (15-37) H Alanine Aminotransferase (ALT/SGPT) 51 U/L (12-78) Alkaline Phosphatase 84 U/L (46-116) Lactate Dehydrogenase 302 U/L (81-234) H C-Reactive Protein, Quantitative 1.5 mg/dL (0.00-0.90) H Total Protein 6.3 G/DL (6.4-8.2) L Albumin 2.0 G/DL (3.4-5.0) L Globulin 4.3 g/dL Albumin/Globulin Ratio 0.5 (1.0-2.7) L Current Medications Medications (Trade) Dose Ordered Sig/Ankush Route PRN Reason Start Time Stop Time Status Last Admin Dose Admin Acetaminophen (Tylenol) 650 mg Q4H PRN ORAL FEVER 05/20/20 17:00 06/19/20 16:59 Acetaminophen (Tylenol) 650 mg Q4H PRN RECTAL Mild Pain (Pain Scale 1-3) 05/24/20 11:30 06/23/20 11:29 05/24/20 23:51 Albuterol/ Ipratropium (Combivent Respimat) 1 puff Q4H PRN INH Shortness of Breath 05/20/20 17:15 06/19/20 17:14 Amlodipine Besylate (Norvasc) 5 mg DAILY ORAL 05/21/20 09:00 06/20/20 08:59 05/28/20 08:33 Ascorbic Acid (Vitamin C) 500 mg DAILY ORAL 05/23/20 09:00 06/22/20 08:59 05/28/20 08:32 Dexamethasone (Decadron) 6 mg DAILY ORAL 05/23/20 09:00 06/01/20 08:59 05/28/20 08:33 Dextrose (Dextrose 50%) 25 ml Q30M PRN IV Hypoglycemia 05/20/20 17:00 08/18/20 16:59 Dextrose (Dextrose 50%) 50 ml Q30M PRN IV Hypoglycemia 05/20/20 17:00 08/18/20 16:59 Dextrose/Sodium Chloride 1,000 ml @ 50 mls/hr Q20H IV 05/23/20 19:45 06/22/20 19:44 05/27/20 23:45 Donepezil HCl (Aricept) 5 mg DAILY ORAL 05/21/20 09:00 06/20/20 08:59 05/28/20 08:33 Heparin Sodium (Porcine) (Heparin 5000 units/ml) 5,000 units EVERY 12 HOURS SUBQ 05/20/20 21:00 07/04/20 20:59 05/27/20 20:28 Lisinopril (ZestriL) 5 mg DAILY ORAL 05/21/20 09:00 06/20/20 08:59 05/28/20 08:32 Multivitamins (Multivitamins) 1 tab DAILY ORAL 05/23/20 09:00 06/22/20 08:59 05/28/20 08:33 Ondansetron HCl (Zofran) 4 mg Q6H PRN IVP Nausea & Vomiting 05/20/20 17:00 06/19/20 16:59 Polyethylene Glycol (Miralax) 17 gm DAILYPRN PRN ORAL Constipation 05/20/20 17:00 06/19/20 16:59 Promethazine HCl/ Codeine (Phenergan with Codeine) 5 ml Q6H PRN ORAL cough 05/20/20 17:00 06/19/20 16:59 Remdesivir 100 mg/ Sodium Chloride 250 ml @ 250 mls/hr Q24H IV 05/26/20 18:00 05/29/20 18:59 05/27/20 18:06 Tamsulosin HCl (Flomax) 0.4 mg DAILY ORAL 05/21/20 09:00 06/20/20 08:59 05/28/20 08:33 Ashley Cho M.D. May 28, 2020 13:49
--- NOTE | 2020-05-28 15:05 | NUR ---
CASE MANAGEMENT: REVIEW 05/28/2020 SI:COVID. PRESSURE ULCERS. VS: T 97.2 HR 57 RR 20 B/P 109/65 SATS 96% ON 3L/NC LABS: WBC 4.2 BUN 21 GLU 174 CA 7.7 AST 42 IS:DEXTROSE/NS @ 50 ML/HR NORVASC PO QD ARICEPT PO QD LISINOPRIL PO QD DECADRON PO QD REMDESIVIR IV Q24H TELE DCP: SHAY FARLEY PLAN OF CARE: titrate fio2 to sat of 92% f/u inflammatory markers, still elevated Scrotal edema>> monitor over the course of the next few days PER GEN SURGERY >> Wound healing: add MVI x 1, Vit C 500mg QD
[2020-05-28 15:43] VITALS: BP 99/53
[2020-05-28] MEDS: Maintenance Dose:Remdesivir 100mg/NS 230ml x 4 Doses IV SCH ×2 (17:56)
--- NOTE | 2020-05-28 19:58 | Internal Med Progress Note ---
Subjective Date of Service: May 28, 2020 Physician Name YaneliDano Attending Physician Ahsan Hodges MD Current Medications Medications (Trade) Dose Ordered Sig/Ankush Route PRN Reason Start Time Stop Time Status Last Admin Dose Admin Acetaminophen (Tylenol) 650 mg Q4H PRN ORAL FEVER 05/20/20 17:00 06/19/20 16:59 Acetaminophen (Tylenol) 650 mg Q4H PRN RECTAL Mild Pain (Pain Scale 1-3) 05/24/20 11:30 06/23/20 11:29 05/24/20 23:51 Albuterol/ Ipratropium (Combivent Respimat) 1 puff Q4H PRN INH Shortness of Breath 05/20/20 17:15 06/19/20 17:14 Amlodipine Besylate (Norvasc) 5 mg DAILY ORAL 05/21/20 09:00 06/20/20 08:59 05/28/20 08:33 Ascorbic Acid (Vitamin C) 500 mg DAILY ORAL 05/23/20 09:00 06/22/20 08:59 05/28/20 08:32 Dexamethasone (Decadron) 6 mg DAILY ORAL 05/23/20 09:00 06/01/20 08:59 05/28/20 08:33 Dextrose (Dextrose 50%) 25 ml Q30M PRN IV Hypoglycemia 05/20/20 17:00 08/18/20 16:59 Dextrose (Dextrose 50%) 50 ml Q30M PRN IV Hypoglycemia 05/20/20 17:00 08/18/20 16:59 Dextrose/Sodium Chloride 1,000 ml @ 50 mls/hr Q20H IV 05/23/20 19:45 06/22/20 19:44 05/27/20 23:45 Donepezil HCl (Aricept) 5 mg DAILY ORAL 05/21/20 09:00 06/20/20 08:59 05/28/20 08:33 Heparin Sodium (Porcine) (Heparin 5000 units/ml) 5,000 units EVERY 12 HOURS SUBQ 05/20/20 21:00 07/04/20 20:59 05/27/20 20:28 Lisinopril (ZestriL) 5 mg DAILY ORAL 05/21/20 09:00 06/20/20 08:59 05/28/20 08:32 Multivitamins (Multivitamins) 1 tab DAILY ORAL 05/23/20 09:00 06/22/20 08:59 05/28/20 08:33 Ondansetron HCl (Zofran) 4 mg Q6H PRN IVP Nausea & Vomiting 05/20/20 17:00 06/19/20 16:59 Polyethylene Glycol (Miralax) 17 gm DAILYPRN PRN ORAL Constipation 05/20/20 17:00 06/19/20 16:59 Promethazine HCl/ Codeine (Phenergan with Codeine) 5 ml Q6H PRN ORAL cough 05/20/20 17:00 06/19/20 16:59 Remdesivir 100 mg/ Sodium Chloride 250 ml @ 250 mls/hr Q24H IV 05/26/20 18:00 05/29/20 18:59 05/28/20 17:56 Tamsulosin HCl (Flomax) 0.4 mg DAILY ORAL 05/21/20 09:00 06/20/20 08:59 05/28/20 08:33 Allergies: Coded Allergies: No Known Allergies (Unverified , 04/30/12) ROS Limited/Unobtainable: Yes Subjective 79 YO M admitted with fever and dyspnea. Now COVID 19 pos. Cover for Int Med-Dr Hodges. Objective Last Vital Signs Date Time Temp Pulse Resp B/P (MAP) Pulse Ox O2 Delivery O2 Flow Rate FiO2 05/28/20 16:00 61 05/28/20 15:43 97.9 20 99/53 (68) 95 05/28/20 09:00 Nasal Cannula 3.0 05/24/20 20:09 28 Laboratory Tests Test 05/28/20 05:05 White Blood Count 4.2 K/UL (4.8-10.8) L Red Blood Count 4.78 M/UL (4.70-6.10) Hemoglobin 13.7 G/DL (14.2-18.0) L Hematocrit 41.1 % (42.0-52.0) L Mean Corpuscular Volume 86 FL (80-99) Mean Corpuscular Hemoglobin 28.6 PG (27.0-31.0) Mean Corpuscular Hemoglobin Concent 33.3 G/DL (32.0-36.0) Red Cell Distribution Width 12.0 % (11.6-14.8) Platelet Count 152 K/UL (150-450) Mean Platelet Volume 9.1 FL (6.5-10.1) Neutrophils (%) (Auto) 66.3 % (45.0-75.0) Lymphocytes (%) (Auto) 22.7 % (20.0-45.0) Monocytes (%) (Auto) 10.6 % (1.0-10.0) H Eosinophils (%) (Auto) 0.0 % (0.0-3.0) Basophils (%) (Auto) 0.4 % (0.0-2.0) Fibrinogen 441 mg/dL (200-400) H D-Dimer 0.88 mg/L FEU (0.00-0.49) H Sodium Level 142 MMOL/L (136-145) Potassium Level 3.8 MMOL/L (3.5-5.1) Chloride Level 107 MMOL/L (98-107) Carbon Dioxide Level 26 MMOL/L (21-32) Anion Gap 9 mmol/L (5-15) Blood Urea Nitrogen 21 mg/dL (7-18) H Creatinine 0.9 MG/DL (0.55-1.30) Estimat Glomerular Filtration Rate > 60 mL/min (>60) Glucose Level 174 MG/DL (74-106) H Calcium Level 7.7 MG/DL (8.5-10.1) L Ferritin 1048 NG/ML (8-388) H Total Bilirubin 0.4 MG/DL (0.2-1.0) Direct Bilirubin 0.1 MG/DL (0.0-0.3) Aspartate Amino Transf (AST/SGOT) 42 U/L (15-37) H Alanine Aminotransferase (ALT/SGPT) 51 U/L (12-78) Alkaline Phosphatase 84 U/L (46-116) Lactate Dehydrogenase 302 U/L (81-234) H C-Reactive Protein, Quantitative 1.5 mg/dL (0.00-0.90) H Total Protein 6.3 G/DL (6.4-8.2) L Albumin 2.0 G/DL (3.4-5.0) L Globulin 4.3 g/dL Albumin/Globulin Ratio 0.5 (1.0-2.7) L Intake and Output 05/27/20 05/28/20 19:00 07:00 Intake Total 240 ml Output Total 1650 ml 650 ml Balance -1410 ml -650 ml Intake Oral 240 ml Output Urine Total 1650 ml 650 ml Objective PHYSICAL EXAMINATION: GENERAL: The patient is a well-developed, well-nourished, thin-appearing male, in no apparent distress. HEENT: Eyes, pupils are equal and responsive to light and accommodation. Extraocular movements are intact. NECK: Supple without lymphadenopathy. CHEST: Lungs are clear to auscultation bilaterally without wheezes, rales. CARDIOVASCULAR: Regular rate. S1, S2 are normal without murmurs, rubs, or gallops. ABDOMEN: Soft, nontender, and nondistended. Positive bowel sounds. No evidence of hepatosplenomegaly. Currently no rebound or guarding noted. EXTREMITIES: Negative for clubbing, cyanosis, or edema. RECTAL/GENITAL: Not performed. NEUROLOGIC: Cranial nerves II through XII are grossly intact without focal deficits. Motor strength is 5/5 bilaterally. Deep tendon reflexes are 2+ plantar. Assessment/Plan Assessment/Plan ASSESSMENT: This is a 79-year-old male. 1. Fever. 2. Dyspnea. 3. COVID-19 positive. 4. Congestive heart failure. 5. Hypertension. 6. Benign prostatic hypertrophy. 7. Osteoporosis. 8. Alzheimer dementia. 9. Ventriculomegaly. 10. Diabetes type 2. 11. Cerebrovascular disease. 12. Chronic renal failure. 13. Dysphagia. 14. Hypercholesterolemia. 15. Gastroesophageal reflux disease. TREATMENT: 1. Fever/dyspnea/COVID-19 positive. Infectious disease consultation = Dr. Cho. Pulmonary consultation = Dr. Kya Carreno. Continue azithromycin and ceftriaxone for probable underlying bacterial pneumonia. Continue Remdesivir and Decadron. We will follow recommendation of Infectious Disease and Pulmonary. 2. Hypertension. Continue amlodipine as above. 3. Benign prostatic hypertrophy. Continue Flomax as above. 4. Osteoporosis. Continue Fosamax as above. 5. Alzheimer dementia. Continue Aricept as above. 6. Ventriculomegaly. 7. Diabetes type 2. 8. Cerebrovascular disease, status post cerebrovascular accident. 9. Chronic renal failure. 10. Dysphagia. 11. Hypercholesterolemia. Continue atorvastatin as above. 12. Gastroesophageal reflux disease. Dano Groves MD May 28, 2020 19:58
[2020-05-28 20:00] VITALS: BP 123/63
--- NOTE | 2020-05-28 20:32 | NUR ---
NURSE NOTES: Received patient report from FLORES Preston. Patient shows no signs of distress or pain at the time. He is AO x0 did not respond to any of my questions but eyes are open. Patient is on 2 L nasal canula saturating at 95% with no signs of respiratory distress. Patient is running D5 1/2 NS @ 50 cc/hr. IV patent and intact. There are no signs of erythema, infiltration, or bleeding. Bed is in the lowest position, call light is within reach, side rails up x3. Will continue to monitor.
[2020-05-28] MEDS: D5 1/2NS 1,000 ML IV SCH (20:46)
[2020-05-29] VITALS: BP 117/64
[2020-05-29 04:00] VITALS: BP 134/76
[2020-05-29 05:46] LABS: BASOPHILS % (AUTO) 2.7 % (0.0-2.0); HEMATOCRIT 42.6 % (42.0-52.0); HEMOGLOBIN 14.5 G/DL (14.2-18.0); LYMPHOCYTES % (AUTO) 22.2 % (20.0-45.0); MEAN CORPUSCULAR VOLUME 85 FL (80-99); MONOCYTES % (AUTO) 8.5 % (1.0-10.0); NEUTROPHILS % (AUTO) 66.7 % (45.0-75.0); PLATELET COUNT 167 K/UL (150-450); RED BLOOD COUNT 5.03 M/UL (4.70-6.10); RED CELL DISTRIBUTION WIDTH 12.2 % (11.6-14.8); WHITE BLOOD COUNT 4.2 K/UL (4.8-10.8)
[2020-05-29 06:08] LABS: ALANINE AMINOTRANSFERASE 58 U/L (12-78); ALBUMIN/GLOBULIN RATIO 0.5 (1.0-2.7); ALKALINE PHOSPHATASE 86 U/L (46-116); ANION GAP 9 mmol/L (5-15); ASPARTATE AMINO TRANSFERASE 40 U/L (15-37); BILIRUBIN,TOTAL 0.5 MG/DL (0.2-1.0); BLOOD UREA NITROGEN 20 mg/dL (7-18); CARBON DIOXIDE 25 MMOL/L (21-32); CHLORIDE 105 MMOL/L (98-107); CREATININE 0.8 MG/DL (0.55-1.30); POTASSIUM 3.8 MMOL/L (3.5-5.1); SODIUM 139 MMOL/L (136-145)
--- NOTE | 2020-05-29 07:21 | NUR ---
NURSE HAND-OFF REPORT: Important Events on Shift:[NA] Patient Status: [NA] Diet: [No added salt Mechanical soft fine chop, nectar thick] Pending Orders: [NA] Pending Results/Labs:[NA] Pending MD notification:[NA] Latest Vital Signs: Temperature 97.1 , Pulse 54 , B/P 134 /76 , Respiratory Rate 21 , O2 SAT 94 , Nasal Cannula, O2 Flow Rate 3.0 . Vital Sign Comment: [NA] EKG Rhythm: Sinus Bradycardia Rhythm change?: Y MD Notified?: N - MD Response: Latest Gonzalez Fall Score: 50 Fall Risk: High Risk Safety Measures: Call light Within Reach, Bed Alarm Zone 1, Side Rails Side Rails x3, Bed position Low and Locked. Fall Precautions: Yellow Socks Yellow Gown Door Sign Patient Fall Education Report given to [NA].
[2020-05-29 08:00] VITALS: BP 132/73
--- NOTE | 2020-05-29 08:09 | NUR ---
NURSE NOTES: Received patient in bed asleep. O2 via NC intact. No SOB or acute distress. IV line intact. Wound dressing intact. SCD's in place. HOB elevated. Bed locked in low position. Call light within reach. Will continue plan of care.
[2020-05-29] MEDS: Lisinopril 2.5mg tab ORAL SCH (09:17)
[2020-05-29] MEDS: Tamsulosin 0.4mg cap ORAL SCH (09:17)
[2020-05-29] MEDS: Ascorbic Acid 500mg tab ORAL SCH (09:17)
[2020-05-29] MEDS: Donepezil 5mg Tab ORAL SCH (09:17)
[2020-05-29] MEDS: Heparin 5000 units/ml inj SUBQ SCH ×2 (09:18→20:59)
--- NOTE | 2020-05-29 10:10 | NUR ---
CASE MANAGEMENT: REVIEW 05/29/2020 SI:COVID. PRESSURE ULCERS. VS: T 97.4 HR 60 RR 20 B/P 132/73 SATS 95% ON 3L/NC LABS: WBC 4.2 BUN 20 GLU 184 CA 8 AST 40 IS:DEXTROSE/NS @ 50 ML/HR NORVASC PO QD ARICEPT PO QD LISINOPRIL PO QD DECADRON PO QD REMDESIVIR IV Q24H TELE DCP: SHAY FARLEY PLAN OF CARE: titrate fio2 to sat of 92% Scrotal edema>> monitor over the course of the next few days Continue azithromycin and ceftriaxone for probable underlying bacterial pneumonia. Continue Remdesivir and Decadron.
--- NOTE | 2020-05-29 11:34 | Surgery Progress Note ---
Surgery Progress Note Subjective Additional Comments labs improved no n/v/f/c Objective Last 24 Hour Vital Signs Date Time Temp Pulse Resp B/P (MAP) Pulse Ox O2 Delivery O2 Flow Rate FiO2 05/29/20 09:17 132/73 05/29/20 09:17 60 132/73 05/29/20 09:00 Nasal Cannula 3.0 05/29/20 08:00 53 05/29/20 08:00 97.4 60 20 132/73 (92) 95 05/29/20 04:00 97.1 60 21 134/76 (95) 94 05/29/20 04:00 54 05/29/20 00:00 98.2 77 21 117/64 (81) 96 05/29/20 00:00 56 05/28/20 21:00 Nasal Cannula 3.0 05/28/20 20:00 60 05/28/20 20:00 97.9 62 19 123/63 (83) 95 05/28/20 16:00 61 05/28/20 15:43 97.9 61 20 99/53 (68) 95 05/28/20 12:00 57 05/28/20 11:48 97.2 57 20 109/65 (80) 96 I&O Intake and Output 05/28/20 05/29/20 19:00 07:00 Intake Total 120 ml 311.6 ml Output Total 900 ml 600 ml Balance -780 ml -288.4 ml Intake Oral 120 ml IV Total 311.6 ml Output Urine Total 900 ml 600 ml Dressing: other Wound: other Cardiovascular: RSR Respiratory: decreased breath sounds Abdomen: soft, non-tender, present bowel sounds Extremities: no cyanosis Laboratory Tests Test 05/29/20 04:00 White Blood Count 4.2 K/UL (4.8-10.8) L Red Blood Count 5.03 M/UL (4.70-6.10) Hemoglobin 14.5 G/DL (14.2-18.0) Hematocrit 42.6 % (42.0-52.0) Mean Corpuscular Volume 85 FL (80-99) Mean Corpuscular Hemoglobin 28.9 PG (27.0-31.0) Mean Corpuscular Hemoglobin Concent 34.1 G/DL (32.0-36.0) Red Cell Distribution Width 12.2 % (11.6-14.8) Platelet Count 167 K/UL (150-450) Mean Platelet Volume 7.5 FL (6.5-10.1) Neutrophils (%) (Auto) 66.7 % (45.0-75.0) Lymphocytes (%) (Auto) 22.2 % (20.0-45.0) Monocytes (%) (Auto) 8.5 % (1.0-10.0) Eosinophils (%) (Auto) 0.0 % (0.0-3.0) Basophils (%) (Auto) 2.7 % (0.0-2.0) H Sodium Level 139 MMOL/L (136-145) Potassium Level 3.8 MMOL/L (3.5-5.1) Chloride Level 105 MMOL/L (98-107) Carbon Dioxide Level 25 MMOL/L (21-32) Anion Gap 9 mmol/L (5-15) Blood Urea Nitrogen 20 mg/dL (7-18) H Creatinine 0.8 MG/DL (0.55-1.30) Estimat Glomerular Filtration Rate > 60 mL/min (>60) Glucose Level 184 MG/DL (74-106) H Calcium Level 8.0 MG/DL (8.5-10.1) L Total Bilirubin 0.5 MG/DL (0.2-1.0) Direct Bilirubin 0.1 MG/DL (0.0-0.3) Aspartate Amino Transf (AST/SGOT) 40 U/L (15-37) H Alanine Aminotransferase (ALT/SGPT) 58 U/L (12-78) Alkaline Phosphatase 86 U/L (46-116) Total Protein 6.1 G/DL (6.4-8.2) L Albumin 2.0 G/DL (3.4-5.0) L Globulin 4.1 g/dL Albumin/Globulin Ratio 0.5 (1.0-2.7) L Plan Problems: (1) Acute bronchitis (2) 2019 novel coronavirus disease (COVID-19) Assessment & Plan: ++ as per ID pulm input appreciated (3) Gram-negative bacteremia (4) Osteoporosis (5) UTI (urinary tract infection) (6) Altered mental state (7) Alzheimer's dementia (8) Sepsis (9) Acute encephalopathy (10) Severe sepsis (11) Aphasia (12) HTN (hypertension) (13) BPH (benign prostatic hyperplasia) (14) History of CVA (cerebrovascular accident) (15) Multifocal pneumonia (16) Decubitus skin ulcer Assessment & Plan: 79-year-old male presented to [facility] covered positive respiratory fevers admitted further care and management which time identified to have multiple decubitus skin ulcers and scrotal edema. Patient identified to have a stage III sacral buttock decubitus ulcer with periwound erythema and breakdown. Incontinence associated dermatitis identified. Care plan initiated after patient evaluation. Will follow with recommendations. Roberto nk you DAILY ESTIMATED NEEDS: Needs based on Wound, DM, Cardiac 73kg 25-30 kcals/kg 9079-9277 total kcals 1.25-1.5 g protein/kg 91-109 g total protein 25-30 mL/kg 7055-6647 total fluid mLs NUTRITION DIAGNOSIS: * Swallowing difficulty R/T dysphagia as evidenced by STRUCTURAL WORKER eval, STRUCTURAL WORKER rec for mech soft ground with nectar thick liquids * Increased kcal/pro/micronutrients needs R/T wound healing as evidenced by admitted w/ wounds @ sacrum and BL ankles, pending eval. CURRENT DIET:ELVIA w/ mech soft ground w/ NTL PO DIET RECOMMENDATIONS: ELVIA + CCHO Med (texture per STRUCTURAL WORKER) ADDITIONAL RECOMMENDATIONS: * Calibrated bedscale wt for accurate CBW * Monitor PO intake -> add Glucerna BID for now, monitor acceptance * Check A1C for eval of glycemic control * Wound healing: add MVI x 1, Vit C 500mg QD f/up w/ WC eval (17) Scrotal edema Assessment & Plan: Patient identified to have significant scrotal edema potential cellulitis on admission. No abscess identified. Towel placed under the scrotum. We will monitor over the course of the next few days Rojas Jerome May 29, 2020 11:34
[2020-05-29 12:00] VITALS: BP 137/79
--- NOTE | 2020-05-29 12:16 | Cardiology Report ---
APPROVED REPORT EKG Measurement Heart [id number] <Conclusion> Normal sinus rhythm Left axis deviation Cannot rule out Anterior infarct, age undetermined ST & T wave abnormality, consider lateral ischemia Abnormal ECG
--- NOTE | 2020-05-29 13:27 | NUR ---
CASE MANAGEMENT: NOTE REFERRAL SENT TO [facility] FOR REVIEW Addendum: 05/29/20 at 1509 by Heather Moore CM room 33 c provided by tereza at [facility]
--- NOTE | 2020-05-29 13:41 | Pulmonology Progress Note ---
Subjective ROS Limited/Unobtainable: Yes Constitutional: Reports: no symptoms HEENT: Repors: no symptoms Respiratory: Reports: no symptoms Allergies: Coded Allergies: No Known Allergies (Unverified , 04/30/12) Objective Last 24 Hour Vital Signs Date Time Temp Pulse Resp B/P (MAP) Pulse Ox O2 Delivery O2 Flow Rate FiO2 05/29/20 12:00 97.8 64 20 137/79 (98) 96 05/29/20 09:17 132/73 05/29/20 09:17 60 132/73 05/29/20 09:00 Nasal Cannula 3.0 05/29/20 08:00 53 05/29/20 08:00 97.4 60 20 132/73 (92) 95 05/29/20 04:00 97.1 60 21 134/76 (95) 94 05/29/20 04:00 54 05/29/20 00:00 98.2 77 21 117/64 (81) 96 05/29/20 00:00 56 05/28/20 21:00 Nasal Cannula 3.0 05/28/20 20:00 60 05/28/20 20:00 97.9 62 19 123/63 (83) 95 05/28/20 16:00 61 05/28/20 15:43 97.9 61 20 99/53 (68) 95 Intake and Output 05/28/20 05/29/20 19:00 07:00 Intake Total 120 ml 311.6 ml Output Total 900 ml 600 ml Balance -780 ml -288.4 ml Intake Oral 120 ml IV Total 311.6 ml Output Urine Total 900 ml 600 ml General Appearance: WD/WN HEENT: normocephalic, atraumatic Respiratory: chest wall non-tender, lungs clear, respiratory distress, decreased breath sounds Cardiovascular: normal peripheral pulses, normal rate Abdomen: normal bowel sounds, soft, non tender Genitourinary: normal external genitalia Extremities: no cyanosis 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 Lymphatic: no neck adenopathy Laboratory Tests 05/29/20 04:00: White Blood Count 4.2L, Red Blood Count 5.03, Hemoglobin 14.5, Hematocrit 42.6, Mean Corpuscular Volume 85, Mean Corpuscular Hemoglobin 28.9, Mean Corpuscular Hemoglobin Concent 34.1, Red Cell Distribution Width 12.2, Platelet Count 167, Mean Platelet Volume 7.5, Neutrophils (%) (Auto) 66.7, Lymphocytes (%) (Auto) 22.2, Monocytes (%) (Auto) 8.5, Eosinophils (%) (Auto) 0.0, Basophils (%) (Auto) 2.7H, Sodium Level 139, Potassium Level 3.8, Chloride Level 105, Carbon Dioxide Level 25, Anion Gap 9, Blood Urea Nitrogen 20H, Creatinine 0.8, Estimat Glomerular Filtration Rate > 60, Glucose Level 184H, Calcium Level 8.0L, Total Bilirubin 0.5, Direct Bilirubin 0.1, Aspartate Amino Transf (AST/SGOT) 40H, Alanine Aminotransferase (ALT/SGPT) 58, Alkaline Phosphatase 86, Total Protein 6.1L, Albumin 2.0L, Globulin 4.1, Albumin/Globulin Ratio 0.5L Current Medications Medications (Trade) Dose Ordered Sig/Ankush Route PRN Reason Start Time Stop Time Status Last Admin Dose Admin Acetaminophen (Tylenol) 650 mg Q4H PRN ORAL FEVER 05/20/20 17:00 06/19/20 16:59 Acetaminophen (Tylenol) 650 mg Q4H PRN RECTAL Mild Pain (Pain Scale 1-3) 05/24/20 11:30 06/23/20 11:29 05/24/20 23:51 Albuterol/ Ipratropium (Combivent Respimat) 1 puff Q4H PRN INH Shortness of Breath 05/20/20 17:15 06/19/20 17:14 Amlodipine Besylate (Norvasc) 5 mg DAILY ORAL 05/21/20 09:00 06/20/20 08:59 05/29/20 09:17 Ascorbic Acid (Vitamin C) 500 mg DAILY ORAL 05/23/20 09:00 06/22/20 08:59 05/29/20 09:17 Dexamethasone (Decadron) 6 mg DAILY ORAL 05/23/20 09:00 06/01/20 08:59 05/29/20 09:17 Dextrose (Dextrose 50%) 25 ml Q30M PRN IV Hypoglycemia 05/20/20 17:00 08/18/20 16:59 Dextrose (Dextrose 50%) 50 ml Q30M PRN IV Hypoglycemia 05/20/20 17:00 08/18/20 16:59 Dextrose/Sodium Chloride 1,000 ml @ 50 mls/hr Q20H IV 05/23/20 19:45 06/22/20 19:44 05/28/20 20:46 Donepezil HCl (Aricept) 5 mg DAILY ORAL 05/21/20 09:00 06/20/20 08:59 05/29/20 09:17 Heparin Sodium (Porcine) (Heparin 5000 units/ml) 5,000 units EVERY 12 HOURS SUBQ 05/20/20 21:00 07/04/20 20:59 05/29/20 09:18 Lisinopril (ZestriL) 5 mg DAILY ORAL 05/21/20 09:00 06/20/20 08:59 05/29/20 09:17 Multivitamins (Multivitamins) 1 tab DAILY ORAL 05/23/20 09:00 06/22/20 08:59 05/29/20 09:16 Ondansetron HCl (Zofran) 4 mg Q6H PRN IVP Nausea & Vomiting 05/20/20 17:00 06/19/20 16:59 Polyethylene Glycol (Miralax) 17 gm DAILYPRN PRN ORAL Constipation 05/20/20 17:00 06/19/20 16:59 Promethazine HCl/ Codeine (Phenergan with Codeine) 5 ml Q6H PRN ORAL cough 05/20/20 17:00 06/19/20 16:59 Remdesivir 100 mg/ Sodium Chloride 250 ml @ 250 mls/hr Q24H IV 05/26/20 18:00 05/29/20 18:59 05/28/20 17:56 Tamsulosin HCl (Flomax) 0.4 mg DAILY ORAL 05/21/20 09:00 06/20/20 08:59 05/29/20 09:17 Assessment/Plan Problems: (1) 2019 novel coronavirus disease (COVID-19) (2) Acute bronchitis (3) History of CVA (cerebrovascular accident) (4) BPH (benign prostatic hyperplasia) (5) HTN (hypertension) (6) Alzheimer's dementia Assessment/Plan afebrile looks comfortable respiratory isolation check sputum, still pending f/u electrolytes titrate fio2 to sat of 92% f/u inflammatory markers, still elevated monitor BP dvt prophylaxis Kya Carreno MD May 29, 2020 13:41
--- NOTE | 2020-05-29 13:52 | Infectious Diseases Prog Note ---
Assessment/Plan Assessment: COVID19 PNeumonia -SP 2l NC > now at RA > 2l NC> 3L -05/23 CXR: Left lower lung/retrocardiac opacity which is similar in appearance to the previous study from May 22, 2020. -05/20 CXR: Bibasilar atelectasis. No acute process otherwise rapid COVID PCR + Low grade fever; SP No leukocytosis> Leukopenia, SP -u/a neg, ucx neg CONS bacteremia- likely contaminant -05/20 Bcx 1/4 CONS; 05/23 Bcx Neg CAD CVA COPD osteoporosis R shoulder surgery CKD DM2 dysphagia GERD aphasia HTN HLD BPH Dementia [place] resident ([facility]) Plan: -Decadron #05/21 -Requested Remdesivir #5/ -05/26 SP Ceftriaxone #7 -05/25 SP Azithromcyin #6 -f/u cx -Monitor CBC/CMP, temperatures -COVID19 isolation -discharge planning Thank you for consulting [facility]. Will continue to follow along with you. Discussed with RN and Dr Carreno Subjective Allergies: Coded Allergies: No Known Allergies (Unverified , 04/30/12) afebrile at 3L NC Bcx Neg Objective Last 24 Hour Vital Signs Date Time Temp Pulse Resp B/P (MAP) Pulse Ox O2 Delivery O2 Flow Rate FiO2 05/29/20 12:00 97.8 64 20 137/79 (98) 96 05/29/20 09:17 132/73 05/29/20 09:17 60 132/73 05/29/20 09:00 Nasal Cannula 3.0 05/29/20 08:00 53 05/29/20 08:00 97.4 60 20 132/73 (92) 95 05/29/20 04:00 97.1 60 21 134/76 (95) 94 05/29/20 04:00 54 05/29/20 00:00 98.2 77 21 117/64 (81) 96 05/29/20 00:00 56 05/28/20 21:00 Nasal Cannula 3.0 05/28/20 20:00 60 05/28/20 20:00 97.9 62 19 123/63 (83) 95 05/28/20 16:00 61 05/28/20 15:43 97.9 61 20 99/53 (68) 95 Height (Feet): 5 Height (Inches): 5.00 Weight (Pounds): 159 Cardiovascular: RSR Respiratory: decreased breath sounds Abdomen: soft, non-tender, present bowel sounds Extremities: no cyanosis Laboratory Tests Test 05/29/20 04:00 White Blood Count 4.2 K/UL (4.8-10.8) L Red Blood Count 5.03 M/UL (4.70-6.10) Hemoglobin 14.5 G/DL (14.2-18.0) Hematocrit 42.6 % (42.0-52.0) Mean Corpuscular Volume 85 FL (80-99) Mean Corpuscular Hemoglobin 28.9 PG (27.0-31.0) Mean Corpuscular Hemoglobin Concent 34.1 G/DL (32.0-36.0) Red Cell Distribution Width 12.2 % (11.6-14.8) Platelet Count 167 K/UL (150-450) Mean Platelet Volume 7.5 FL (6.5-10.1) Neutrophils (%) (Auto) 66.7 % (45.0-75.0) Lymphocytes (%) (Auto) 22.2 % (20.0-45.0) Monocytes (%) (Auto) 8.5 % (1.0-10.0) Eosinophils (%) (Auto) 0.0 % (0.0-3.0) Basophils (%) (Auto) 2.7 % (0.0-2.0) H Sodium Level 139 MMOL/L (136-145) Potassium Level 3.8 MMOL/L (3.5-5.1) Chloride Level 105 MMOL/L (98-107) Carbon Dioxide Level 25 MMOL/L (21-32) Anion Gap 9 mmol/L (5-15) Blood Urea Nitrogen 20 mg/dL (7-18) H Creatinine 0.8 MG/DL (0.55-1.30) Estimat Glomerular Filtration Rate > 60 mL/min (>60) Glucose Level 184 MG/DL (74-106) H Calcium Level 8.0 MG/DL (8.5-10.1) L Total Bilirubin 0.5 MG/DL (0.2-1.0) Direct Bilirubin 0.1 MG/DL (0.0-0.3) Aspartate Amino Transf (AST/SGOT) 40 U/L (15-37) H Alanine Aminotransferase (ALT/SGPT) 58 U/L (12-78) Alkaline Phosphatase 86 U/L (46-116) Total Protein 6.1 G/DL (6.4-8.2) L Albumin 2.0 G/DL (3.4-5.0) L Globulin 4.1 g/dL Albumin/Globulin Ratio 0.5 (1.0-2.7) L Current Medications Medications (Trade) Dose Ordered Sig/Ankush Route PRN Reason Start Time Stop Time Status Last Admin Dose Admin Acetaminophen (Tylenol) 650 mg Q4H PRN ORAL FEVER 05/20/20 17:00 06/19/20 16:59 Acetaminophen (Tylenol) 650 mg Q4H PRN RECTAL Mild Pain (Pain Scale 1-3) 05/24/20 11:30 06/23/20 11:29 05/24/20 23:51 Albuterol/ Ipratropium (Combivent Respimat) 1 puff Q4H PRN INH Shortness of Breath 05/20/20 17:15 06/19/20 17:14 Amlodipine Besylate (Norvasc) 5 mg DAILY ORAL 05/21/20 09:00 06/20/20 08:59 05/29/20 09:17 Ascorbic Acid (Vitamin C) 500 mg DAILY ORAL 05/23/20 09:00 06/22/20 08:59 05/29/20 09:17 Dexamethasone (Decadron) 6 mg DAILY ORAL 05/23/20 09:00 06/01/20 08:59 05/29/20 09:17 Dextrose (Dextrose 50%) 25 ml Q30M PRN IV Hypoglycemia 05/20/20 17:00 08/18/20 16:59 Dextrose (Dextrose 50%) 50 ml Q30M PRN IV Hypoglycemia 05/20/20 17:00 08/18/20 16:59 Dextrose/Sodium Chloride 1,000 ml @ 50 mls/hr Q20H IV 05/23/20 19:45 06/22/20 19:44 05/28/20 20:46 Donepezil HCl (Aricept) 5 mg DAILY ORAL 05/21/20 09:00 06/20/20 08:59 05/29/20 09:17 Heparin Sodium (Porcine) (Heparin 5000 units/ml) 5,000 units EVERY 12 HOURS SUBQ 05/20/20 21:00 07/04/20 20:59 05/29/20 09:18 Lisinopril (ZestriL) 5 mg DAILY ORAL 05/21/20 09:00 06/20/20 08:59 05/29/20 09:17 Multivitamins (Multivitamins) 1 tab DAILY ORAL 05/23/20 09:00 06/22/20 08:59 05/29/20 09:16 Ondansetron HCl (Zofran) 4 mg Q6H PRN IVP Nausea & Vomiting 05/20/20 17:00 06/19/20 16:59 Polyethylene Glycol (Miralax) 17 gm DAILYPRN PRN ORAL Constipation 05/20/20 17:00 06/19/20 16:59 Promethazine HCl/ Codeine (Phenergan with Codeine) 5 ml Q6H PRN ORAL cough 05/20/20 17:00 06/19/20 16:59 Remdesivir 100 mg/ Sodium Chloride 250 ml @ 250 mls/hr Q24H IV 05/26/20 18:00 05/29/20 18:59 05/28/20 17:56 Tamsulosin HCl (Flomax) 0.4 mg DAILY ORAL 05/21/20 09:00 06/20/20 08:59 05/29/20 09:17 Ashley Cho M.D. May 29, 2020 13:52
[2020-05-29] MEDS: D5 1/2NS 1,000 ML IV SCH (15:12)
[2020-05-29 16:00] VITALS: BP 131/80
--- NOTE | 2020-05-29 18:12 | Internal Med Progress Note ---
Subjective Physician Name Ahsan Hodges Attending Physician Ahsan Hodges MD Current Medications Medications (Trade) Dose Ordered Sig/Ankush Route PRN Reason Start Time Stop Time Status Last Admin Dose Admin Acetaminophen (Tylenol) 650 mg Q4H PRN ORAL FEVER 05/20/20 17:00 06/19/20 16:59 Acetaminophen (Tylenol) 650 mg Q4H PRN RECTAL Mild Pain (Pain Scale 1-3) 05/24/20 11:30 06/23/20 11:29 05/24/20 23:51 Albuterol/ Ipratropium (Combivent Respimat) 1 puff Q4H PRN INH Shortness of Breath 05/20/20 17:15 06/19/20 17:14 Amlodipine Besylate (Norvasc) 5 mg DAILY ORAL 05/21/20 09:00 06/20/20 08:59 05/29/20 09:17 Ascorbic Acid (Vitamin C) 500 mg DAILY ORAL 05/23/20 09:00 06/22/20 08:59 05/29/20 09:17 Dexamethasone (Decadron) 6 mg DAILY ORAL 05/23/20 09:00 06/01/20 08:59 05/29/20 09:17 Dextrose (Dextrose 50%) 25 ml Q30M PRN IV Hypoglycemia 05/20/20 17:00 08/18/20 16:59 Dextrose (Dextrose 50%) 50 ml Q30M PRN IV Hypoglycemia 05/20/20 17:00 08/18/20 16:59 Dextrose/Sodium Chloride 1,000 ml @ 50 mls/hr Q20H IV 05/23/20 19:45 06/22/20 19:44 05/29/20 15:12 Donepezil HCl (Aricept) 5 mg DAILY ORAL 05/21/20 09:00 06/20/20 08:59 05/29/20 09:17 Heparin Sodium (Porcine) (Heparin 5000 units/ml) 5,000 units EVERY 12 HOURS SUBQ 05/20/20 21:00 07/04/20 20:59 05/29/20 09:18 Lisinopril (ZestriL) 5 mg DAILY ORAL 05/21/20 09:00 06/20/20 08:59 05/29/20 09:17 Multivitamins (Multivitamins) 1 tab DAILY ORAL 05/23/20 09:00 06/22/20 08:59 05/29/20 09:16 Ondansetron HCl (Zofran) 4 mg Q6H PRN IVP Nausea & Vomiting 05/20/20 17:00 06/19/20 16:59 Polyethylene Glycol (Miralax) 17 gm DAILYPRN PRN ORAL Constipation 05/20/20 17:00 06/19/20 16:59 Promethazine HCl/ Codeine (Phenergan with Codeine) 5 ml Q6H PRN ORAL cough 05/20/20 17:00 06/19/20 16:59 Remdesivir 100 mg/ Sodium Chloride 250 ml @ 250 mls/hr Q24H IV 05/26/20 18:00 05/29/20 18:59 05/28/20 17:56 Tamsulosin HCl (Flomax) 0.4 mg DAILY ORAL 05/21/20 09:00 06/20/20 08:59 05/29/20 09:17 Allergies: Coded Allergies: No Known Allergies (Unverified , 04/30/12) Subjective In Telemetry Unit, awake,more responsive, less shortness of breath, poor oral intake, in [place] [id number] Isolation room. WBC: 4.2. Objective Last Vital Signs Date Time Temp Pulse Resp B/P (MAP) Pulse Ox O2 Delivery O2 Flow Rate FiO2 05/29/20 16:00 64 05/29/20 16:00 97.6 20 131/80 (97) 97 05/29/20 09:00 Nasal Cannula 3.0 05/24/20 20:09 28 Laboratory Tests Test 05/29/20 04:00 White Blood Count 4.2 K/UL (4.8-10.8) L Red Blood Count 5.03 M/UL (4.70-6.10) Hemoglobin 14.5 G/DL (14.2-18.0) Hematocrit 42.6 % (42.0-52.0) Mean Corpuscular Volume 85 FL (80-99) Mean Corpuscular Hemoglobin 28.9 PG (27.0-31.0) Mean Corpuscular Hemoglobin Concent 34.1 G/DL (32.0-36.0) Red Cell Distribution Width 12.2 % (11.6-14.8) Platelet Count 167 K/UL (150-450) Mean Platelet Volume 7.5 FL (6.5-10.1) Neutrophils (%) (Auto) 66.7 % (45.0-75.0) Lymphocytes (%) (Auto) 22.2 % (20.0-45.0) Monocytes (%) (Auto) 8.5 % (1.0-10.0) Eosinophils (%) (Auto) 0.0 % (0.0-3.0) Basophils (%) (Auto) 2.7 % (0.0-2.0) H Sodium Level 139 MMOL/L (136-145) Potassium Level 3.8 MMOL/L (3.5-5.1) Chloride Level 105 MMOL/L (98-107) Carbon Dioxide Level 25 MMOL/L (21-32) Anion Gap 9 mmol/L (5-15) Blood Urea Nitrogen 20 mg/dL (7-18) H Creatinine 0.8 MG/DL (0.55-1.30) Estimat Glomerular Filtration Rate > 60 mL/min (>60) Glucose Level 184 MG/DL (74-106) H Calcium Level 8.0 MG/DL (8.5-10.1) L Total Bilirubin 0.5 MG/DL (0.2-1.0) Direct Bilirubin 0.1 MG/DL (0.0-0.3) Aspartate Amino Transf (AST/SGOT) 40 U/L (15-37) H Alanine Aminotransferase (ALT/SGPT) 58 U/L (12-78) Alkaline Phosphatase 86 U/L (46-116) Total Protein 6.1 G/DL (6.4-8.2) L Albumin 2.0 G/DL (3.4-5.0) L Globulin 4.1 g/dL Albumin/Globulin Ratio 0.5 (1.0-2.7) L Intake and Output 05/28/20 05/29/20 19:00 07:00 Intake Total 120 ml 311.6 ml Output Total 900 ml 600 ml Balance -780 ml -288.4 ml Intake Oral 120 ml IV Total 311.6 ml Output Urine Total 900 ml 600 ml Objective General: No acute distress, awake and responsive with open eyes, unable to follow command. HEENT: NCAT, sclera anicteric, PERRL. Neck: Supple, no significant jugular venous distention, Lungs: fair respiratory effort, decrease breath sound at bases, no coarse breath sound, no Wheeze or Rales. Heart: Regular rate and rhythm, normal S1/S2, no murmurs, distant heart sounds. Abdomen: soft, nontender, nondistended. Normoactive bowel sounds, obesity. : Wiley cath Extremities: No cyanosis , clubbing or edema. Neuro: awake, responsive with open his eyes, cannot follow commands, contractures with rigidity in extremities. Skin: warm, no rash. Assessment/Plan Assessment/Plan ASSESSMENT: This is a 79-year-old male. 1. Fever. 2. Acute hypoxemic respiratory failure. 3. COVID-19 Pneumonia. 4. Congestive heart failure. 5. Hypertension. 6. Benign prostatic hypertrophy. 7. Osteoporosis. 8. Alzheimer dementia. 9. Ventriculomegaly. 10. Diabetes type 2. 11. Cerebrovascular disease. 12. Chronic renal failure. 13. Dysphagia. 14. Hypercholesterolemia. 15. Gastroesophageal reflux disease. TREATMENT: 1. Fever/dyspnea/COVID-19 positive. An infectious disease consultation has been obtained with Dr. Cho. A pulmonary consultation has been obtained with Dr. Kya Carreno. bacterial pneumonia. The patient has been started on Decadron. We will follow recommendation of Infectious Disease and Pulmonary. 2. Hypertension. Continue amlodipine as above. 3. Benign prostatic hypertrophy. Continue Flomax as above. 4. Osteoporosis. 5. Alzheimer dementia. Continue Aricept as above. 6. Ventriculomegaly. 7. Diabetes type 2. 8. Cerebrovascular disease, status post cerebrovascular accident. 9. Chronic renal failure. 10. Dysphagia. 11. Hypercholesterolemia. Continue atorvastatin as above. 12. Gastroesophageal reflux disease. CODE STATUS: Full code DVT prophylaxis: Heparin subcu. DC Telemetry, transfer to medical Unit Monitor blood glucose level closely -Decadron #9/10 -Requested Remdesivir #5/5 -05/26 SP Ceftriaxone #7 -05/25 SP Azithromcyin #6 Ahsan Hodges MD May 29, 2020 18:12
[2020-05-29] MEDS: Maintenance Dose:Remdesivir 100mg/NS 230ml x 4 Doses IV SCH ×2 (18:21)
--- NOTE | 2020-05-29 18:53 | NUR ---
NURSE HAND-OFF REPORT: Important Events on Shift:for transfer to [facility] Patient Status: stable Diet: ELVIA mech soft finely chopped NTL, glucerna TID, Sushil BID Pending Orders: Pending Results/Labs: Pending MD notification: Latest Vital Signs: Temperature 97.6 , Pulse 64 , B/P 131 /80 , Respiratory Rate 20 , O2 SAT 97 , Nasal Cannula, O2 Flow Rate 3.0 . Vital Sign Comment: EKG Rhythm: Sinus Rhythm Rhythm change?: Y MD Notified?: N - MD Response: Latest Gonzalez Fall Score: 50 Fall Risk: High Risk Safety Measures: Call light Within Reach, Bed Alarm Zone 1, Side Rails Side Rails x3, Bed position Low and Locked. Fall Precautions: Yellow Socks Yellow Gown Door Sign Patient Fall Education . Addendum: 05/29/20 at 1957 by Kary Lim RN HAND-OFF: Report given to Esther TANNER.
[2020-05-29 20:20] VITALS: BP 134/76
--- NOTE | 2020-05-29 20:20 | NUR ---
TRANSFER TO FLOOR: Patient transferred to [facility], per Dr. Carreno. Report given to FLORES Cole on the fourth floor. Belongings and medications given to Kelsey including inhaler bedside, wound care materials, patient materials that were found in the patient room in tele floor, patient belongings list signed. hospital monitor box and leads removed, cleaned and given to Abdi youth nutritional monitor. Patient was transferred safely without incident via bed with 3L oxygen via nasal cannula, respirations even and unlabored, alert and oriented to baseline (aox1), responsive to tactile and verbal stimuli, spO2 92%, respiration rate is 18. Family and or S/O informed of transfer.
[2020-05-30] VITALS: BP 125/68
[2020-05-30 04:00] VITALS: BP 131/69
[2020-05-30 05:38] LABS: EOSINOPHILS % (AUTO) 0.1 % (0.0-3.0); HEMATOCRIT 45.3 % (42.0-52.0); HEMOGLOBIN 15.2 G/DL (14.2-18.0); LYMPHOCYTES % (AUTO) 14.8 % (20.0-45.0); MEAN CORPUSCULAR VOLUME 86 FL (80-99); MONOCYTES % (AUTO) 9.4 % (1.0-10.0); NEUTROPHILS % (AUTO) 74.7 % (45.0-75.0); PLATELET COUNT 206 K/UL (150-450); RED BLOOD COUNT 5.28 M/UL (4.70-6.10); WHITE BLOOD COUNT 6.2 K/UL (4.8-10.8)
[2020-05-30 06:06] LABS: ALANINE AMINOTRANSFERASE 63 U/L (12-78); ALBUMIN 2.2 G/DL (3.4-5.0); ALBUMIN/GLOBULIN RATIO 0.5 (1.0-2.7); ALKALINE PHOSPHATASE 40 U/L (46-116); ANION GAP 10 mmol/L (5-15); ASPARTATE AMINO TRANSFERASE 36 U/L (15-37); BILIRUBIN,TOTAL 0.6 MG/DL (0.2-1.0); BLOOD UREA NITROGEN 19 mg/dL (7-18); CALCIUM 8.3 MG/DL (8.5-10.1); CARBON DIOXIDE 26 MMOL/L (21-32); CHLORIDE 105 MMOL/L (98-107); CREATININE 0.9 MG/DL (0.55-1.30); POTASSIUM 4.1 MMOL/L (3.5-5.1); SODIUM 141 MMOL/L (136-145)
--- NOTE | 2020-05-30 07:50 | NUR ---
NURSE HAND-OFF: Important Events on Shift:[DISCHARGE PLAN [facility]] Patient Status: [STABLE] Diet: [ELVIA, MS GROUND, NECTAR, THICK LIQUID, GLUCERNA TID] Pending Orders: [AML] Pending Results/Labs:[] Pending MD notification:[N/A] Latest Vital Signs: Temperature 97.3 , Pulse 66 , B/P 131 /69 , Respiratory Rate 20 , O2 SAT 99 , Nasal Cannula, O2 Flow Rate 3.0 . Vital Sign Comment: [AFEBRILE] Latest Gonzalez Fall Score: 50 Fall Risk: High Risk Safety Measures: Call light Within Reach, Bed Alarm Zone 1, Side Rails Side Rails x3, Bed position Low and Locked. Fall Precautions: Yellow Socks Yellow Gown Door Sign Patient Fall Education Report given to [FLORES WONG].
--- NOTE | 2020-05-30 07:58 | NUR ---
RD ASSESSMENT & RECOMMENDATIONS SEE CARE ACTIVITY FOR COMPLETE ASSESSMENT DAILY ESTIMATED NEEDS: Needs based on Wound, DM, Cardiac 73kg 25-30 kcals/kg 9039-6555 total kcals 1.25-1.5 g protein/kg 91-109 g total protein 25-30 mL/kg 9650-5740 total fluid mLs NUTRITION DIAGNOSIS: * Swallowing difficulty R/T dysphagia as evidenced by SUPERVISOR OF [employer]PERATIONS eval, SUPERVISOR OF [employer]PERATIONS rec for mech soft ground with nectar thick liquids * Increased kcal/pro/micronutrients needs R/T wound healing as evidenced by admitted w/ wounds @ sacrum (stage 3 per MD) and BL ankles. CURRENT DIET:ELVIA w/ mech soft ground w/ NTL PO DIET RECOMMENDATIONS: Liberalized REGULAR w/ poor PO -> add CCHO MED +LOW NA w/ >50% po intake ADDITIONAL RECOMMENDATIONS: * Calibrated bedscale wt for accurate CBW * Cont w/ Glucerna TID w/ meals * Consider appetite stimulant w/ continued poor PO * Check A1C for eval of glycemic control -> monitor BGs, need for NISS: elev BGs, on Decadron * Wound healing: continue MVI x 1, Vit C 500mg QD, ADALBERTO BID f/up w/ WC eval-> stage 3 sacral wound per
[2020-05-30 08:00] VITALS: BP 120/84
--- NOTE | 2020-05-30 08:00 | NUR ---
NURSE NOTES: Received report from BOOGIE Lombardi. Patient observed to be asleep. Currently on 3/L NC, no s/sx of SOB/Distress, no s/sx of any pain observed. Patient currently on contact and droplet isolation for covid (+). Condom catheter present, intact and draining well. IV site located on Right Hand gauge 22 asymptomatic, inplace and intact. Bed placed on lowest and locked position, call light placed within reach and will continue to monitor.
[2020-05-30] MEDS: Lisinopril 2.5mg tab ORAL SCH (09:06)
[2020-05-30] MEDS: Tamsulosin 0.4mg cap ORAL SCH (09:06)
[2020-05-30] MEDS: Ascorbic Acid 500mg tab ORAL SCH (09:06)
[2020-05-30] MEDS: Donepezil 5mg Tab ORAL SCH (09:06)
[2020-05-30] MEDS: Heparin 5000 units/ml inj SUBQ SCH ×3 (09:09→22:47)
--- NOTE | 2020-05-30 09:37 | Pulmonology Progress Note ---
Subjective ROS Limited/Unobtainable: Yes Constitutional: Reports: no symptoms HEENT: Repors: no symptoms Respiratory: Reports: no symptoms Allergies: Coded Allergies: No Known Allergies (Unverified , 04/30/12) Objective Last 24 Hour Vital Signs Date Time Temp Pulse Resp B/P (MAP) Pulse Ox O2 Delivery O2 Flow Rate FiO2 05/30/20 09:06 120/84 05/30/20 09:06 66 120/84 05/30/20 04:00 97.3 66 20 131/69 (89) 99 05/30/20 00:00 97.6 62 20 125/68 (87) 96 05/29/20 21:00 Nasal Cannula 3.0 05/29/20 20:20 97.3 66 20 134/76 (95) 97 05/29/20 16:00 64 05/29/20 16:00 97.6 68 20 131/80 (97) 97 05/29/20 12:00 97.8 64 20 137/79 (98) 96 05/29/20 12:00 59 Intake and Output 05/29/20 05/30/20 19:00 07:00 Intake Total 600 ml 670 ml Output Total 800 ml 700 ml Balance -200 ml -30 ml Intake Oral 600 ml 120 ml IV Total 550 ml Output Urine Total 800 ml 700 ml # Bowel Movements 1 General Appearance: WD/WN HEENT: normocephalic, atraumatic Respiratory: chest wall non-tender, lungs clear, respiratory distress, decreased breath sounds Cardiovascular: normal peripheral pulses, normal rate Abdomen: normal bowel sounds, soft, non tender Genitourinary: normal external genitalia Extremities: no cyanosis 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 II-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 grossly normal Lymphatic: no neck adenopathy Laboratory Tests 05/30/20 04:40: White Blood Count 6.2, Red Blood Count 5.28, Hemoglobin 15.2, Hematocrit 45.3, Mean Corpuscular Volume 86, Mean Corpuscular Hemoglobin 28.7, Mean Corpuscular Hemoglobin Concent 33.5, Red Cell Distribution Width 12.0, Platelet Count 206, Mean Platelet Volume 7.8, Neutrophils (%) (Auto) 74.7, Lymphocytes (%) (Auto) 14.8L, Monocytes (%) (Auto) 9.4, Eosinophils (%) (Auto) 0.1, Basophils (%) (Auto) 1.0, Sodium Level 141, Potassium Level 4.1, Chloride Level 105, Carbon Dioxide Level 26, Anion Gap 10, Blood Urea Nitrogen 19H, Creatinine 0.9, Estimat Glomerular Filtration Rate > 60, Glucose Level 170H, Calcium Level 8.3L, Total Bilirubin 0.6, Direct Bilirubin 0.2, Aspartate Amino Transf (AST/SGOT) 36, Alanine Aminotransferase (ALT/SGPT) 63, Alkaline Phosphatase 40L, Total Protein 6.4, Albumin 2.2L, Globulin 4.2, Albumin/Globulin Ratio 0.5L Current Medications Medications (Trade) Dose Ordered Sig/Ankush Route PRN Reason Start Time Stop Time Status Last Admin Dose Admin Acetaminophen (Tylenol) 650 mg Q4H PRN ORAL FEVER 05/20/20 17:00 06/19/20 16:59 Acetaminophen (Tylenol) 650 mg Q4H PRN RECTAL Mild Pain (Pain Scale 1-3) 05/24/20 11:30 06/23/20 11:29 05/24/20 23:51 Albuterol/ Ipratropium (Combivent Respimat) 1 puff Q4H PRN INH Shortness of Breath 05/20/20 17:15 06/19/20 17:14 Amlodipine Besylate (Norvasc) 5 mg DAILY ORAL 05/21/20 09:00 06/20/20 08:59 05/30/20 09:06 Ascorbic Acid (Vitamin C) 500 mg DAILY ORAL 05/23/20 09:00 06/22/20 08:59 05/30/20 09:06 Dexamethasone (Decadron) 6 mg DAILY ORAL 05/23/20 09:00 06/01/20 08:59 05/30/20 09:06 Dextrose (Dextrose 50%) 25 ml Q30M PRN IV Hypoglycemia 05/20/20 17:00 08/18/20 16:59 Dextrose (Dextrose 50%) 50 ml Q30M PRN IV Hypoglycemia 05/20/20 17:00 08/18/20 16:59 Dextrose/Sodium Chloride 1,000 ml @ 50 mls/hr Q20H IV 05/23/20 19:45 06/22/20 19:44 05/29/20 15:12 Donepezil HCl (Aricept) 5 mg DAILY ORAL 05/21/20 09:00 06/20/20 08:59 05/30/20 09:06 Heparin Sodium (Porcine) (Heparin 5000 units/ml) 5,000 units EVERY 8 HOURS SUBQ 05/30/20 09:00 07/14/20 08:59 05/30/20 09:09 Lisinopril (ZestriL) 5 mg DAILY ORAL 05/21/20 09:00 06/20/20 08:59 05/30/20 09:06 Multivitamins (Multivitamins) 1 tab DAILY ORAL 05/23/20 09:00 06/22/20 08:59 05/30/20 09:06 Ondansetron HCl (Zofran) 4 mg Q6H PRN IVP Nausea & Vomiting 05/20/20 17:00 06/19/20 16:59 Polyethylene Glycol (Miralax) 17 gm DAILYPRN PRN ORAL Constipation 05/20/20 17:00 06/19/20 16:59 Promethazine HCl/ Codeine (Phenergan with Codeine) 5 ml Q6H PRN ORAL cough 05/20/20 17:00 06/19/20 16:59 Tamsulosin HCl (Flomax) 0.4 mg DAILY ORAL 05/21/20 09:00 06/20/20 08:59 05/30/20 09:06 Assessment/Plan Problems: (1) 2019 novel coronavirus disease (COVID-19) (2) Acute bronchitis (3) History of CVA (cerebrovascular accident) (4) BPH (benign prostatic hyperplasia) (5) HTN (hypertension) (6) Alzheimer's dementia Assessment/Plan afebrile looks comfortable respiratory isolation check sputum, still pending f/u electrolytes titrate fio2 to sat of 92% f/u inflammatory markers, still elevated monitor BP dvt prophylaxis Kya Carreno MD May 30, 2020 09:37
[2020-05-30] MEDS: D5 1/2NS 1,000 ML IV SCH (11:47)
[2020-05-30 12:00] VITALS: BP 119/83
[2020-05-30] MEDS ORDERED: D5 1/2NS 1000ml IV ONE (14:02)
--- NOTE | 2020-05-30 14:15 | Infectious Diseases Prog Note ---
Assessment/Plan Assessment: COVID19 PNeumonia -SP 2l NC > now at RA > 2l NC> 3L -05/23 CXR: Left lower lung/retrocardiac opacity which is similar in appearance to the previous study from May 22, 2020. -05/20 CXR: Bibasilar atelectasis. No acute process otherwise rapid COVID PCR + Low grade fever; SP No leukocytosis> Leukopenia, SP -u/a neg, ucx neg CONS bacteremia- likely contaminant -05/20 Bcx 1/4 CONS; 05/23 Bcx Neg CAD CVA COPD osteoporosis R shoulder surgery CKD DM2 dysphagia GERD aphasia HTN HLD BPH Dementia [place] resident ([facility]) Plan: -Decadron # 1-/10 - 05/29Remdesivir #5/ -05/26 SP Ceftriaxone #7 -05/25 SP Azithromcyin #6 -f/u cx -Monitor CBC/CMP, temperatures -COVID19 isolation -discharge planning Thank you for consulting [facility]. Will continue to follow along with you. Discussed with RN and Dr Carreno Subjective Allergies: Coded Allergies: No Known Allergies (Unverified , 04/30/12) comfortable Objective Last 24 Hour Vital Signs Date Time Temp Pulse Resp B/P (MAP) Pulse Ox O2 Delivery O2 Flow Rate FiO2 05/30/20 12:00 98.9 83 19 119/83 (95) 96 05/30/20 09:06 120/84 05/30/20 09:06 66 120/84 05/30/20 09:00 Nasal Cannula 3.0 05/30/20 08:00 98.5 66 20 120/84 (96) 94 05/30/20 04:00 97.3 66 20 131/69 (89) 99 05/30/20 00:00 97.6 62 20 125/68 (87) 96 05/29/20 21:00 Nasal Cannula 3.0 05/29/20 20:20 97.3 66 20 134/76 (95) 97 05/29/20 16:00 64 05/29/20 16:00 97.6 68 20 131/80 (97) 97 Height (Feet): 5 Height (Inches): 5.00 Weight (Pounds): 159 HEENT: atraumatic Respiratory/Chest: normal breath sounds Cardiovascular: regularly irregular Abdomen: soft, non tender Laboratory Tests Test 05/30/20 04:40 White Blood Count 6.2 K/UL (4.8-10.8) Red Blood Count 5.28 M/UL (4.70-6.10) Hemoglobin 15.2 G/DL (14.2-18.0) Hematocrit 45.3 % (42.0-52.0) Mean Corpuscular Volume 86 FL (80-99) Mean Corpuscular Hemoglobin 28.7 PG (27.0-31.0) Mean Corpuscular Hemoglobin Concent 33.5 G/DL (32.0-36.0) Red Cell Distribution Width 12.0 % (11.6-14.8) Platelet Count 206 K/UL (150-450) Mean Platelet Volume 7.8 FL (6.5-10.1) Neutrophils (%) (Auto) 74.7 % (45.0-75.0) Lymphocytes (%) (Auto) 14.8 % (20.0-45.0) L Monocytes (%) (Auto) 9.4 % (1.0-10.0) Eosinophils (%) (Auto) 0.1 % (0.0-3.0) Basophils (%) (Auto) 1.0 % (0.0-2.0) Sodium Level 141 MMOL/L (136-145) Potassium Level 4.1 MMOL/L (3.5-5.1) Chloride Level 105 MMOL/L (98-107) Carbon Dioxide Level 26 MMOL/L (21-32) Anion Gap 10 mmol/L (5-15) Blood Urea Nitrogen 19 mg/dL (7-18) H Creatinine 0.9 MG/DL (0.55-1.30) Estimat Glomerular Filtration Rate > 60 mL/min (>60) Glucose Level 170 MG/DL (74-106) H Calcium Level 8.3 MG/DL (8.5-10.1) L Total Bilirubin 0.6 MG/DL (0.2-1.0) Direct Bilirubin 0.2 MG/DL (0.0-0.3) Aspartate Amino Transf (AST/SGOT) 36 U/L (15-37) Alanine Aminotransferase (ALT/SGPT) 63 U/L (12-78) Alkaline Phosphatase 40 U/L (46-116) L Total Protein 6.4 G/DL (6.4-8.2) Albumin 2.2 G/DL (3.4-5.0) L Globulin 4.2 g/dL Albumin/Globulin Ratio 0.5 (1.0-2.7) L Current Medications Medications (Trade) Dose Ordered Sig/Ankush Route PRN Reason Start Time Stop Time Status Last Admin Dose Admin Acetaminophen (Tylenol) 650 mg Q4H PRN ORAL FEVER 05/20/20 17:00 06/19/20 16:59 Acetaminophen (Tylenol) 650 mg Q4H PRN RECTAL Mild Pain (Pain Scale 1-3) 05/24/20 11:30 06/23/20 11:29 05/24/20 23:51 Albuterol/ Ipratropium (Combivent Respimat) 1 puff Q4H PRN INH Shortness of Breath 05/20/20 17:15 06/19/20 17:14 Amlodipine Besylate (Norvasc) 5 mg DAILY ORAL 05/21/20 09:00 06/20/20 08:59 05/30/20 09:06 Ascorbic Acid (Vitamin C) 500 mg DAILY ORAL 05/23/20 09:00 06/22/20 08:59 05/30/20 09:06 Dexamethasone (Decadron) 6 mg DAILY ORAL 05/23/20 09:00 06/01/20 08:59 05/30/20 09:06 Dextrose (Dextrose 50%) 25 ml Q30M PRN IV Hypoglycemia 05/20/20 17:00 08/18/20 16:59 Dextrose (Dextrose 50%) 50 ml Q30M PRN IV Hypoglycemia 05/20/20 17:00 08/18/20 16:59 Dextrose/Sodium Chloride 1,000 ml @ 50 mls/hr Q20H IV 05/23/20 19:45 06/22/20 19:44 05/30/20 11:47 Donepezil HCl (Aricept) 5 mg DAILY ORAL 05/21/20 09:00 06/20/20 08:59 05/30/20 09:06 Heparin Sodium (Porcine) (Heparin 5000 units/ml) 5,000 units EVERY 8 HOURS SUBQ 05/30/20 09:00 07/14/20 08:59 05/30/20 09:09 Lisinopril (ZestriL) 5 mg DAILY ORAL 05/21/20 09:00 06/20/20 08:59 05/30/20 09:06 Multivitamins (Multivitamins) 1 tab DAILY ORAL 05/23/20 09:00 06/22/20 08:59 05/30/20 09:06 Ondansetron HCl (Zofran) 4 mg Q6H PRN IVP Nausea & Vomiting 05/20/20 17:00 06/19/20 16:59 Polyethylene Glycol (Miralax) 17 gm DAILYPRN PRN ORAL Constipation 05/20/20 17:00 06/19/20 16:59 Promethazine HCl/ Codeine (Phenergan with Codeine) 5 ml Q6H PRN ORAL cough 05/20/20 17:00 06/19/20 16:59 Tamsulosin HCl (Flomax) 0.4 mg DAILY ORAL 05/21/20 09:00 06/20/20 08:59 05/30/20 09:06 Richard Davenport MD May 30, 2020 14:15
--- NOTE | 2020-05-30 14:58 | Surgery Progress Note ---
Surgery Progress Note Subjective Additional Comments afebrile HD stable labs okay no n/v Objective Last 24 Hour Vital Signs Date Time Temp Pulse Resp B/P (MAP) Pulse Ox O2 Delivery O2 Flow Rate FiO2 05/30/20 12:00 98.9 83 19 119/83 (95) 96 05/30/20 09:06 120/84 05/30/20 09:06 66 120/84 05/30/20 09:00 Nasal Cannula 3.0 05/30/20 08:00 98.5 66 20 120/84 (96) 94 05/30/20 04:00 97.3 66 20 131/69 (89) 99 05/30/20 00:00 97.6 62 20 125/68 (87) 96 05/29/20 21:00 Nasal Cannula 3.0 05/29/20 20:20 97.3 66 20 134/76 (95) 97 05/29/20 16:00 64 05/29/20 16:00 97.6 68 20 131/80 (97) 97 I&O Intake and Output 05/29/20 05/30/20 19:00 07:00 Intake Total 600 ml 670 ml Output Total 800 ml 700 ml Balance -200 ml -30 ml Intake Oral 600 ml 120 ml IV Total 550 ml Output Urine Total 800 ml 700 ml # Bowel Movements 1 Dressing: other Wound: other Cardiovascular: RSR Respiratory: decreased breath sounds Abdomen: soft, present bowel sounds Extremities: no tenderness, no cyanosis Laboratory Tests Test 05/30/20 04:40 White Blood Count 6.2 K/UL (4.8-10.8) Red Blood Count 5.28 M/UL (4.70-6.10) Hemoglobin 15.2 G/DL (14.2-18.0) Hematocrit 45.3 % (42.0-52.0) Mean Corpuscular Volume 86 FL (80-99) Mean Corpuscular Hemoglobin 28.7 PG (27.0-31.0) Mean Corpuscular Hemoglobin Concent 33.5 G/DL (32.0-36.0) Red Cell Distribution Width 12.0 % (11.6-14.8) Platelet Count 206 K/UL (150-450) Mean Platelet Volume 7.8 FL (6.5-10.1) Neutrophils (%) (Auto) 74.7 % (45.0-75.0) Lymphocytes (%) (Auto) 14.8 % (20.0-45.0) L Monocytes (%) (Auto) 9.4 % (1.0-10.0) Eosinophils (%) (Auto) 0.1 % (0.0-3.0) Basophils (%) (Auto) 1.0 % (0.0-2.0) Sodium Level 141 MMOL/L (136-145) Potassium Level 4.1 MMOL/L (3.5-5.1) Chloride Level 105 MMOL/L (98-107) Carbon Dioxide Level 26 MMOL/L (21-32) Anion Gap 10 mmol/L (5-15) Blood Urea Nitrogen 19 mg/dL (7-18) H Creatinine 0.9 MG/DL (0.55-1.30) Estimat Glomerular Filtration Rate > 60 mL/min (>60) Glucose Level 170 MG/DL (74-106) H Calcium Level 8.3 MG/DL (8.5-10.1) L Total Bilirubin 0.6 MG/DL (0.2-1.0) Direct Bilirubin 0.2 MG/DL (0.0-0.3) Aspartate Amino Transf (AST/SGOT) 36 U/L (15-37) Alanine Aminotransferase (ALT/SGPT) 63 U/L (12-78) Alkaline Phosphatase 40 U/L (46-116) L Total Protein 6.4 G/DL (6.4-8.2) Albumin 2.2 G/DL (3.4-5.0) L Globulin 4.2 g/dL Albumin/Globulin Ratio 0.5 (1.0-2.7) L Plan Problems: (1) Acute bronchitis (2) 2019 novel coronavirus disease (COVID-19) Assessment & Plan: ++ as per ID pulm input appreciated (3) Gram-negative bacteremia (4) Osteoporosis (5) UTI (urinary tract infection) (6) Altered mental state (7) Alzheimer's dementia (8) Sepsis (9) Acute encephalopathy (10) Severe sepsis (11) Aphasia (12) HTN (hypertension) (13) BPH (benign prostatic hyperplasia) (14) History of CVA (cerebrovascular accident) (15) Multifocal pneumonia (16) Decubitus skin ulcer Assessment & Plan: 79-year-old male presented to [facility] covered positive respiratory fevers admitted further care and management which time identified to have multiple decubitus skin ulcers and scrotal edema. Patient identified to have a stage III sacral buttock decubitus ulcer with periwound erythema and breakdown. Incontinence associated dermatitis identified. Care plan initiated after patient evaluation. Will follow with recommendations. Thank you DAILY ESTIMATED NEEDS: Needs based on Wound, DM, Cardiac 73kg 25-30 kcals/kg 4755-2240 total kcals 1.25-1.5 g protein/kg 91-109 g total protein 25-30 mL/kg 3533-3274 total fluid mLs NUTRITION DIAGNOSIS: * Swallowing difficulty R/T dysphagia as evidenced by FILTER HELPER eval, FILTER HELPER rec for mech soft ground with nectar thick liquids * Increased kcal/pro/micronutrients needs R/T wound healing as evidenced by admitted w/ wounds @ sacrum and BL ankles, pending eval. CURRENT DIET:ELVIA w/ mech soft ground w/ NTL PO DIET RECOMMENDATIONS: ELVIA + CCHO Med (texture per FILTER HELPER) ADDITIONAL RECOMMENDATIONS: * Calibrated bedscale wt for accurate CBW * Monitor PO intake -> add Glucerna BID for now, monitor acceptance * Check A1C for eval of glycemic control * Wound healing: add MVI x 1, Vit C 500mg QD f/up w/ WC eval (17) Scrotal edema Assessment & Plan: Patient identified to have significant scrotal edema potential cellulitis on admission. No abscess identified. Towel placed under the scrotum. We will monitor over the course of the next few days Rojas Jerome May 30, 2020 14:58
[2020-05-30 16:00] VITALS: BP 120/81
--- NOTE | 2020-05-30 16:25 | Internal Med Progress Note ---
Subjective Date of Service: May 30, 2020 Physician Name GrovesDano Attending Physician Ahsan Hodges MD Current Medications Medications (Trade) Dose Ordered Sig/Ankush Route PRN Reason Start Time Stop Time Status Last Admin Dose Admin Acetaminophen (Tylenol) 650 mg Q4H PRN ORAL FEVER 05/20/20 17:00 06/19/20 16:59 Acetaminophen (Tylenol) 650 mg Q4H PRN RECTAL Mild Pain (Pain Scale 1-3) 05/24/20 11:30 06/23/20 11:29 05/24/20 23:51 Albuterol/ Ipratropium (Combivent Respimat) 1 puff Q4H PRN INH Shortness of Breath 05/20/20 17:15 06/19/20 17:14 Amlodipine Besylate (Norvasc) 5 mg DAILY ORAL 05/21/20 09:00 06/20/20 08:59 05/30/20 09:06 Ascorbic Acid (Vitamin C) 500 mg DAILY ORAL 05/23/20 09:00 06/22/20 08:59 05/30/20 09:06 Dexamethasone (Decadron) 6 mg DAILY ORAL 05/23/20 09:00 06/01/20 08:59 05/30/20 09:06 Dextrose (Dextrose 50%) 25 ml Q30M PRN IV Hypoglycemia 05/20/20 17:00 08/18/20 16:59 Dextrose (Dextrose 50%) 50 ml Q30M PRN IV Hypoglycemia 05/20/20 17:00 08/18/20 16:59 Dextrose/Sodium Chloride 1,000 ml @ 50 mls/hr Q20H IV 05/23/20 19:45 06/22/20 19:44 05/30/20 11:47 Donepezil HCl (Aricept) 5 mg DAILY ORAL 05/21/20 09:00 06/20/20 08:59 05/30/20 09:06 Heparin Sodium (Porcine) (Heparin 5000 units/ml) 5,000 units EVERY 8 HOURS SUBQ 05/30/20 09:00 07/14/20 08:59 05/30/20 09:09 Lisinopril (ZestriL) 5 mg DAILY ORAL 05/21/20 09:00 06/20/20 08:59 05/30/20 09:06 Multivitamins (Multivitamins) 1 tab DAILY ORAL 05/23/20 09:00 06/22/20 08:59 05/30/20 09:06 Ondansetron HCl (Zofran) 4 mg Q6H PRN IVP Nausea & Vomiting 05/20/20 17:00 06/19/20 16:59 Polyethylene Glycol (Miralax) 17 gm DAILYPRN PRN ORAL Constipation 05/20/20 17:00 06/19/20 16:59 Promethazine HCl/ Codeine (Phenergan with Codeine) 5 ml Q6H PRN ORAL cough 05/20/20 17:00 06/19/20 16:59 Tamsulosin HCl (Flomax) 0.4 mg DAILY ORAL 05/21/20 09:00 06/20/20 08:59 05/30/20 09:06 Allergies: Coded Allergies: No Known Allergies (Unverified , 04/30/12) ROS Limited/Unobtainable: Yes Subjective 79 YO M admitted with fever and dyspnea. Now COVID 19 pos. Cover for Int Med- Dr Hodges. Objective Last Vital Signs Date Time Temp Pulse Resp B/P (MAP) Pulse Ox O2 Delivery O2 Flow Rate FiO2 05/30/20 12:00 98.9 83 19 119/83 (95) 96 05/30/20 09:00 Nasal Cannula 3.0 05/24/20 20:09 28 Laboratory Tests Test 05/30/20 04:40 White Blood Count 6.2 K/UL (4.8-10.8) Red Blood Count 5.28 M/UL (4.70-6.10) Hemoglobin 15.2 G/DL (14.2-18.0) Hematocrit 45.3 % (42.0-52.0) Mean Corpuscular Volume 86 FL (80-99) Mean Corpuscular Hemoglobin 28.7 PG (27.0-31.0) Mean Corpuscular Hemoglobin Concent 33.5 G/DL (32.0-36.0) Red Cell Distribution Width 12.0 % (11.6-14.8) Platelet Count 206 K/UL (150-450) Mean Platelet Volume 7.8 FL (6.5-10.1) Neutrophils (%) (Auto) 74.7 % (45.0-75.0) Lymphocytes (%) (Auto) 14.8 % (20.0-45.0) L Monocytes (%) (Auto) 9.4 % (1.0-10.0) Eosinophils (%) (Auto) 0.1 % (0.0-3.0) Basophils (%) (Auto) 1.0 % (0.0-2.0) Sodium Level 141 MMOL/L (136-145) Potassium Level 4.1 MMOL/L (3.5-5.1) Chloride Level 105 MMOL/L (98-107) Carbon Dioxide Level 26 MMOL/L (21-32) Anion Gap 10 mmol/L (5-15) Blood Urea Nitrogen 19 mg/dL (7-18) H Creatinine 0.9 MG/DL (0.55-1.30) Estimat Glomerular Filtration Rate > 60 mL/min (>60) Glucose Level 170 MG/DL (74-106) H Calcium Level 8.3 MG/DL (8.5-10.1) L Total Bilirubin 0.6 MG/DL (0.2-1.0) Direct Bilirubin 0.2 MG/DL (0.0-0.3) Aspartate Amino Transf (AST/SGOT) 36 U/L (15-37) Alanine Aminotransferase (ALT/SGPT) 63 U/L (12-78) Alkaline Phosphatase 40 U/L (46-116) L Total Protein 6.4 G/DL (6.4-8.2) Albumin 2.2 G/DL (3.4-5.0) L Globulin 4.2 g/dL Albumin/Globulin Ratio 0.5 (1.0-2.7) L Intake and Output 05/29/20 05/30/20 19:00 07:00 Intake Total 600 ml 720 ml Output Total 800 ml 700 ml Balance -200 ml 20 ml Intake Oral 600 ml 120 ml IV Total 600 ml Output Urine Total 800 ml 700 ml # Bowel Movements 1 Objective PHYSICAL EXAMINATION: GENERAL: The patient is a well-developed, well-nourished, thin-appearing male, in no apparent distress. HEENT: Eyes, pupils are equal and responsive to light and accommodation. Extraocular movements are intact. NECK: Supple without lymphadenopathy. CHEST: Lungs are clear to auscultation bilaterally without wheezes, rales. CARDIOVASCULAR: Regular rate. S1, S2 are normal without murmurs, rubs, or gallops. ABDOMEN: Soft, nontender, and nondistended. Positive bowel sounds. No evidence of hepatosplenomegaly. Currently no rebound or guarding noted. EXTREMITIES: Negative for clubbing, cyanosis, or edema. RECTAL/GENITAL: Not performed. NEUROLOGIC: Cranial nerves II through XII are grossly intact without focal deficits. Motor strength is 5/5 bilaterally. Deep tendon reflexes are 2+ plantar. Assessment/Plan Assessment/Plan ASSESSMENT: This is a 79-year-old male. 1. Fever. 2. Dyspnea. 3. COVID-19 positive. 4. Congestive heart failure. 5. Hypertension. 6. Benign prostatic hypertrophy. 7. Osteoporosis. 8. Alzheimer dementia. 9. Ventriculomegaly. 10. Diabetes type 2. 11. Cerebrovascular disease. 12. Chronic renal failure. 13. Dysphagia. 14. Hypercholesterolemia. 15. Gastroesophageal reflux disease. TREATMENT: 1. Fever/dyspnea/COVID-19 positive. Infectious disease consultation = Dr. Cho. Pulmonary consultation = Dr. Kya Carreno. Continue azithromycin and ceftriaxone for probable underlying bacterial pneumonia. Continue Remdesivir and Decadron. We will follow recommendation of Infectious Disease and Pulmonary. 2. Hypertension. Continue amlodipine as above. 3. Benign prostatic hypertrophy. Continue Flomax as above. 4. Osteoporosis. Continue Fosamax as above. 5. Alzheimer dementia. Continue Aricept as above. 6. Ventriculomegaly. 7. Diabetes type 2. 8. Cerebrovascular disease, status post cerebrovascular accident. 9. Chronic renal failure. 10. Dysphagia. 11. Hypercholesterolemia. Continue atorvastatin as above. 12. Gastroesophageal reflux disease. Dano Groves MD May 30, 2020 16:25
--- NOTE | 2020-05-30 16:53 | NUR ---
*-*DISCHARGE PLANNED*-* PATIENT HAS BEEN ACCEPTED AND WILL BE DISCHARGE BACK TO: [facility] P: [phone] FOR NURSE TO NURSE REPORT ROOM# 33.[facility] TRANSPORTATION SET FOR 8:30PM S/W AUGUSTINE [id number] PLACED A CALL TO PATIENT DAUGHTER LEX HOFFMAN, WHO IS IN AGREEMENT WITH DISCHARGE PLAN.
--- NOTE | 2020-05-30 17:11 | NUR ---
*-*DISCHARGE PLANNED*-* PATIENT HAS BEEN ACCEPTED AND WILL BE DISCHARGE BACK TO: [facility] P: [phone] FOR NURSE TO NURSE REPORT ROOM# 33.[facility] TRANSPORTATION SET FOR 1400PM/ 1PM 05/31/2020 S/W RUBIA [id number] PLACED A CALL TO PATIENT DAUGHTER LEX HOFFMAN, WHO IS IN AGREEMENT WITH DISCHARGE
--- NOTE | 2020-05-30 17:13 | NUR ---
*-*DISCHARGE PLANNED*-* PATIENT HAS BEEN ACCEPTED AND WILL BE DISCHARGE BACK TO: [facility] P: [phone] FOR NURSE TO NURSE REPORT ROOM# 33.[facility] TRANSPORTATION SET FOR 1400PM/ 1PM 05/31/2020 S/W RUBIA [id number] ~~ DUE TO STAFFING CHALLENGES AT [facility]
--- NOTE | 2020-05-30 19:22 | NUR ---
NURSE HAND-OFF: Important Events on Shift:for discharge back to [facility] 05/31/20 Patient Status: stable Diet: No added NA, MECH SOFT, nectar thick liquids Pending Orders: n/a Pending Results/Labs:n/a Pending MD notification:n/a Latest Vital Signs: Temperature 98.0 , Pulse 89 , B/P 120 /81 , Respiratory Rate 19 , O2 SAT 97 , Nasal Cannula, O2 Flow Rate 3.0 . Vital Sign Comment: stable Latest Gonzalez Fall Score: 50 Fall Risk: High Risk Safety Measures: Call light Within Reach, Bed Alarm Zone 1, Side Rails Side Rails x3, Bed position Low and Locked. Fall Precautions: Yellow Socks Yellow Gown Door Sign Patient Fall Education Report given to FLORES Orozco.
--- NOTE | 2020-05-30 19:38 | NUR ---
NURSE NOTES: Patient awake and aphasic. Primary language noted as Portuguese. Breathing unlabored on 3L O2 via nasal cannula. No signs of pain or discomfort noted at this time. Intravenous access noted on right hand. Condom cath in place for incontinency and as a prevention of further skin breakdown. Bed placed at the lowest with alarm, brake, and siderails up x3 for patient safety. Call light placed within reach. Will continue to monitor.
[2020-05-30 20:00] VITALS: BP 137/79
--- NOTE | 2020-05-30 20:00 | NUR ---
NURSE NOTES: Patient's right hand intravenous access noted removed. Inserted new 24g IV on patient's left hand. Asymptomatic, patent, and intact. Patient explained procedure prior and during the process. Patient tolerated well.
[2020-05-31] VITALS: BP 113/68
[2020-05-31 04:00] VITALS: BP 103/73
--- NOTE | 2020-05-31 04:31 | NUR ---
NURSE NOTES: Blood lab drawn and sent down to lab. Patient tolerated well. Will continue to monitor.
[2020-05-31 05:38] LABS: BASOPHILS % (AUTO) 1.3 % (0.0-2.0); HEMOGLOBIN 15.5 G/DL (14.2-18.0); MEAN CORPUSCULAR VOLUME 85 FL (80-99); MONOCYTES % (AUTO) 5.8 % (1.0-10.0); NEUTROPHILS % (AUTO) 83.9 % (45.0-75.0); PLATELET COUNT 226 K/UL (150-450); RED BLOOD COUNT 5.29 M/UL (4.70-6.10); RED CELL DISTRIBUTION WIDTH 11.9 % (11.6-14.8); WHITE BLOOD COUNT 9.4 K/UL (4.8-10.8)
[2020-05-31] MEDS: Heparin 5000 units/ml inj SUBQ SCH ×2 (05:59→13:47)
[2020-05-31] MEDS: D5 1/2NS 1,000 ML IV SCH (06:58)
--- NOTE | 2020-05-31 07:40 | NUR ---
NURSE NOTES: RECEIVED PATIENT A/A/OX1, NONVERBAL RESPONSE TO TACTILE AND PAINFUL STIMULI. OPEN EYES. NO ACUTE RESP DISTRESS NOTED. KEPT HOB ELEVATED FOR ASPIRATION PRECAUTION. POOR APPETITE. 1;1 FEEDER AND CRUSHED MEDS. PIV PATENT AND INTACT. ORAL CARE RENDERED. WOUND DRSG DRY AND INTACT. REPOSITION Q2HRS. SCD'S APPLIED ON BLE. KEPT BED IN THE LOWEST POSITION. SIDERAILS ARE UPX3 FOR SAFETY. CALL LIGHT IS WITHIN REACH. BED BRAKES AND LOCK @ ALL TIMES. WILL CONT TO MONITOR.
--- NOTE | 2020-05-31 07:41 | NUR ---
NURSE HAND-OFF: Important Events on Shift: No adverse event during the shift. Patient Status: Stable Diet: No Added Salt - Mechanical Soft Grounded with [place] Thick Liquid Pending Orders: None Pending Results/Labs: None Pending MD notification: None Latest Vital Signs: Temperature 98.6 , Pulse 72 , B/P 103 /73 , Respiratory Rate 18 , O2 SAT 94 , Nasal Cannula, O2 Flow Rate 3.0 . Vital Sign Comment: Stable Latest Gonzalez Fall Score: 50 Fall Risk: High Risk Safety Measures: Call light Within Reach, Bed Alarm Zone 1, Side Rails Side Rails x3, Bed position Low and Locked. Fall Precautions: Yellow Socks Yellow Gown Door Sign Patient Fall Education Report given to BOOGIE Jacob.
[2020-05-31 08:00] VITALS: BP 116/65
[2020-05-31] MEDS: Ascorbic Acid 500mg tab ORAL SCH (08:57)
[2020-05-31] MEDS: Lisinopril 2.5mg tab ORAL SCH (08:57)
[2020-05-31] MEDS: Donepezil 5mg Tab ORAL SCH (08:57)
[2020-05-31] MEDS: Tamsulosin 0.4mg cap ORAL SCH (08:57)
--- NOTE | 2020-05-31 09:00 | NUR ---
NURSE NOTES: MATTHIAS HARDIN CALLED [facility] FOR TRANSPORTATION AND ETA WILL BE @ 1200H. WILL CONT TO MONITOR.
--- NOTE | 2020-05-31 10:25 | NUR ---
NURSE NOTES: CALLED [facility] FOR REPORT AND SPOKE WITH BRIDGET. NOTIFIED NAOM, DAUGHTER UNABLE TO LEAVE MESSAGE DUE TO VOICEMAIL IS FULL. CALLED [facility]ADO AND LEFT VOICEMESSAGE TO INFORM RE: DISCHARGE. WILL CONT TO MONITOR.
--- NOTE | 2020-05-31 11:34 | Pulmonology Progress Note ---
Subjective ROS Limited/Unobtainable: Yes Constitutional: Reports: no symptoms HEENT: Repors: no symptoms Respiratory: Reports: no symptoms Allergies: Coded Allergies: No Known Allergies (Unverified , 04/30/12) Objective Last 24 Hour Vital Signs Date Time Temp Pulse Resp B/P (MAP) Pulse Ox O2 Delivery O2 Flow Rate FiO2 05/31/20 09:46 Nasal Cannula 3.0 05/31/20 08:57 116/56 05/31/20 08:57 86 116/65 05/31/20 08:00 97.7 86 18 116/65 (82) 95 05/31/20 04:00 98.6 72 18 103/73 (83) 94 05/31/20 00:00 98.3 60 18 113/68 (83) 95 05/30/20 21:00 Nasal Cannula 3.0 05/30/20 20:00 98.0 69 18 137/79 (98) 95 05/30/20 16:00 98.0 89 19 120/81 (94) 97 05/30/20 12:00 98.9 83 19 119/83 (95) 96 Intake and Output 05/30/20 05/31/20 19:00 07:00 Intake Total 450 ml 550 ml Output Total 600 ml 300 ml Balance -150 ml 250 ml Intake Oral 100 ml IV Total 350 ml 550 ml Output Urine Total 600 ml 300 ml # Voids 1 General Appearance: WD/WN HEENT: normocephalic, atraumatic Respiratory: chest wall non-tender, lungs clear, respiratory distress, decreased breath sounds Cardiovascular: normal peripheral pulses, normal rate Abdomen: normal bowel sounds, soft, non tender Genitourinary: normal external genitalia Extremities: no cyanosis 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 Lymphatic: no neck adenopathy Laboratory Tests 05/31/20 04:25: White Blood Count 9.4#, Red Blood Count 5.29, Hemoglobin 15.5, Hematocrit 45.0, Mean Corpuscular Volume 85, Mean Corpuscular Hemoglobin 29.3, Mean Corpuscular Hemoglobin Concent 34.5, Red Cell Distribution Width 11.9, Platelet Count 226, Mean Platelet Volume 7.0, Neutrophils (%) (Auto) 83.9H, Lymphocytes (%) (Auto) 9.0L, Monocytes (%) (Auto) 5.8, Eosinophils (%) (Auto) 0.0, Basophils (%) (Auto) 1.3, Direct Bilirubin 0.2 Current Medications Medications (Trade) Dose Ordered Sig/Ankush Route PRN Reason Start Time Stop Time Status Last Admin Dose Admin Acetaminophen (Tylenol) 650 mg Q4H PRN ORAL FEVER 05/20/20 17:00 06/19/20 16:59 Acetaminophen (Tylenol) 650 mg Q4H PRN RECTAL Mild Pain (Pain Scale 1-3) 05/24/20 11:30 06/23/20 11:29 05/24/20 23:51 Albuterol/ Ipratropium (Combivent Respimat) 1 puff Q4H PRN INH Shortness of Breath 05/20/20 17:15 06/19/20 17:14 Amlodipine Besylate (Norvasc) 5 mg DAILY ORAL 05/21/20 09:00 06/20/20 08:59 05/31/20 08:57 Ascorbic Acid (Vitamin C) 500 mg DAILY ORAL 05/23/20 09:00 06/22/20 08:59 05/31/20 08:57 Dexamethasone (Decadron) 6 mg DAILY ORAL 05/23/20 09:00 06/01/20 08:59 05/31/20 08:58 Dextrose (Dextrose 50%) 25 ml Q30M PRN IV Hypoglycemia 05/20/20 17:00 08/18/20 16:59 Dextrose (Dextrose 50%) 50 ml Q30M PRN IV Hypoglycemia 05/20/20 17:00 08/18/20 16:59 Dextrose/Sodium Chloride 1,000 ml @ 50 mls/hr Q20H IV 05/23/20 19:45 06/22/20 19:44 05/31/20 06:58 Donepezil HCl (Aricept) 5 mg DAILY ORAL 05/21/20 09:00 06/20/20 08:59 05/31/20 08:57 Heparin Sodium (Porcine) (Heparin 5000 units/ml) 5,000 units EVERY 8 HOURS SUBQ 05/30/20 09:00 07/14/20 08:59 05/31/20 05:59 Lisinopril (ZestriL) 5 mg DAILY ORAL 05/21/20 09:00 06/20/20 08:59 05/31/20 08:57 Multivitamins (Multivitamins) 1 tab DAILY ORAL 05/23/20 09:00 06/22/20 08:59 05/31/20 08:58 Ondansetron HCl (Zofran) 4 mg Q6H PRN IVP Nausea & Vomiting 05/20/20 17:00 06/19/20 16:59 Polyethylene Glycol (Miralax) 17 gm DAILYPRN PRN ORAL Constipation 05/20/20 17:00 06/19/20 16:59 Promethazine HCl/ Codeine (Phenergan with Codeine) 5 ml Q6H PRN ORAL cough 05/20/20 17:00 06/19/20 16:59 Tamsulosin HCl (Flomax) 0.4 mg DAILY ORAL 05/21/20 09:00 06/20/20 08:59 05/31/20 08:57 Assessment/Plan Problems: (1) 2019 novel coronavirus disease (COVID-19) (2) Acute bronchitis (3) History of CVA (cerebrovascular accident) (4) BPH (benign prostatic hyperplasia) (5) HTN (hypertension) (6) Alzheimer's dementia Assessment/Plan repeat cxr and crp in am afebrile looks comfortable respiratory isolation check sputum, still pending f/u electrolytes titrate fio2 to sat of 92% f/u inflammatory markers, still elevated monitor BP dvt prophylaxis Kya Carreno MD May 31, 2020 11:34
[2020-05-31 12:00] VITALS: BP 112/70
--- NOTE | 2020-05-31 12:00 | NUR ---
NURSE NOTES: [facility] CALLED TO NOTIFY THERE WILL BE DELAYED AND RESCHED THE TRANSPORT BETWEEN 1230H AND 1300H. WILL CONT TO MONITOR.
--- NOTE | 2020-05-31 13:18 | Surgery Progress Note ---
Surgery Progress Note Subjective Symptoms: improved, tolerating diet, passing flatus Objective Last 24 Hour Vital Signs Date Time Temp Pulse Resp B/P (MAP) Pulse Ox O2 Delivery O2 Flow Rate FiO2 05/31/20 12:00 97.5 54 18 112/70 (84) 96 05/31/20 09:46 Nasal Cannula 3.0 05/31/20 08:57 116/56 05/31/20 08:57 86 116/65 05/31/20 08:00 97.7 86 18 116/65 (82) 95 05/31/20 04:00 98.6 72 18 103/73 (83) 94 05/31/20 00:00 98.3 60 18 113/68 (83) 95 05/30/20 21:00 Nasal Cannula 3.0 05/30/20 20:00 98.0 69 18 137/79 (98) 95 05/30/20 16:00 98.0 89 19 120/81 (94) 97 I&O Intake and Output 05/30/20 05/31/20 19:00 07:00 Intake Total 450 ml 550 ml Output Total 600 ml 300 ml Balance -150 ml 250 ml Intake Oral 100 ml IV Total 350 ml 550 ml Output Urine Total 600 ml 300 ml # Voids 1 Cardiovascular: RSR Respiratory: clear Abdomen: soft, non-tender, present bowel sounds Extremities: no edema, no tenderness, no cyanosis Laboratory Tests Test 05/31/20 04:25 White Blood Count 9.4 K/UL (4.8-10.8) # Red Blood Count 5.29 M/UL (4.70-6.10) Hemoglobin 15.5 G/DL (14.2-18.0) Hematocrit 45.0 % (42.0-52.0) Mean Corpuscular Volume 85 FL (80-99) Mean Corpuscular Hemoglobin 29.3 PG (27.0-31.0) Mean Corpuscular Hemoglobin Concent 34.5 G/DL (32.0-36.0) Red Cell Distribution Width 11.9 % (11.6-14.8) Platelet Count 226 K/UL (150-450) Mean Platelet Volume 7.0 FL (6.5-10.1) Neutrophils (%) (Auto) 83.9 % (45.0-75.0) H Lymphocytes (%) (Auto) 9.0 % (20.0-45.0) L Monocytes (%) (Auto) 5.8 % (1.0-10.0) Eosinophils (%) (Auto) 0.0 % (0.0-3.0) Basophils (%) (Auto) 1.3 % (0.0-2.0) Direct Bilirubin 0.2 MG/DL (0.0-0.3) Plan Problems: (1) Acute bronchitis (2) 2019 novel coronavirus disease (COVID-19) Assessment & Plan: ++ as per ID pulm input appreciated (3) Gram-negative bacteremia (4) Osteoporosis (5) UTI (urinary tract infection) (6) Altered mental state (7) Alzheimer's dementia (8) Sepsis (9) Acute encephalopathy (10) Severe sepsis (11) Aphasia (12) HTN (hypertension) (13) BPH (benign prostatic hyperplasia) (14) History of CVA (cerebrovascular accident) (15) Multifocal pneumonia (16) Decubitus skin ulcer Assessment & Plan: 79-year-old male presented to [facility] covered positive respiratory fevers admitted further care and management which time identified to have multiple decubitus skin ulcers and scrotal edema. Patient identified to have a stage III sacral buttock decubitus ulcer with periwound erythema and breakdown. Incontinence associated dermatitis identified. Care plan initiated after patient evaluation. Will follow with recommendations. Thank you DAILY ESTIMATED NEEDS: Needs based on Wound, DM, Cardiac 73kg 25-30 kcals/kg 3434-7684 total kcals 1.25-1.5 g protein/kg 91-109 g total protein 25-30 mL/kg 5549-0365 total fluid mLs NUTRITION DIAGNOSIS: * Swallowing difficulty R/T dysphagia as evidenced by [employer] eval, [employer] rec for mech soft ground with nectar thick liquids * Increased kcal/pro/micronutrients needs R/T wound healing as evidenced by admitted w/ wounds @ sacrum and BL ankles, pending eval. CURRENT DIET:ELVIA w/ mech soft ground w/ NTL PO DIET RECOMMENDATIONS: ELVIA + CCHO Med (texture per [employer]) ADDITIONAL RECOMMENDATIONS: * Calibrated bedscale wt for accurate CBW * Monitor PO intake -> add Glucerna BID for now, monitor acceptance * Check A1C for eval of glycemic control * Wound healing: add MVI x 1, Vit C 500mg QD f/up w/ WC eval (17) Scrotal edema Assessment & Plan: Patient identified to have significant scrotal edema potential cellulitis on admission. No abscess identified. Towel placed under the scrotum. We will monitor over the course of the next few days Rojas Jerome May 31, 2020 13:18
--- NOTE | 2020-05-31 13:43 | NUR ---
NURSE NOTES: [facility] CALLED AND SPOKE WITH WILFRED RIZZO TO INFORM ONCE AGAIN THAT THEY WILL BE LATE TO TRANSPORT PATIENT FOR 45 MIN. WILL CONT THE PLAN OF CARE.
--- NOTE | 2020-05-31 14:17 | NUR ---
NURSE NOTES: [facility] PICKED UP PATIENT AND REPORT GIVEN. REMOVED IV HEPLOCK. NO ACUTE RESP DISTRESS NOTED. NO PERSONAL BELONGINGS NOTED.
--- NOTE | 2020-06-01 11:25 | Discharge Summary ---
Discharge Summary Discharge Summary _ DATE OF ADMISSION: 05/20/2020 DATE OF DISCHARGE: 05/31/2020 DISCHARGED BY: Dr. oHdges REASON FOR ADMISSION: 79 years old male with past medical history of COPD, CVA with residual aphagia no motor deficit, hypertension, dyslipidemia, BPH, dementia, not O2 dependent, was [facility] due to fever and cough for the past 2 days. Cough reported as dry. Patient received Tylenol at the facility. Upon evaluation patient had low-grade fever 99.9. Pulse oximetry on 2 L of oxygen via nasal cannula was 93%. EKG revealed sinus rhythm no acute ischemic changes. Troponin was negative. pro BNP 110 Chest x-ray demonstrated bibasilar atelectasis . Laboratory work-up revealed stable electrolytes. Glucose 149. BUN 20, creatinine 1.2. Lactic acid 0.9. Albumin 2.6. Urinalysis revealed +2 protein, no evidence of urinary tract infection. ABG on 2 L of oxygen via nasal cannula was stable. No leukocytosis stable hemoglobin, hematocrit . Rapid COVID-19 in emergency department was positive Patient subsequently admitted for further management. CONSULTANTS: pulmonary Dr. Carreno ID specialist Dr. Cho surgery Dr. Jerome [facility]SE: Patient admitted to isolation room . Supplemental oxygen provided and titrated to keep pulse oximetry above 92%. Patient received steroids and 5 doses of Remdesivir. DVT prophylaxis provided. Patient was followed -up with chest x-ray. Patient received empiric antibiotic for possible superimposed pneumonia. Antitussive provided as needed. MDI Albuterol provided as needed. Inflammatory markers to assess the risk for cytokine storm were followed. CRP prior to discharge 1.5 , ferritin 1048 , d-dimer 0.93. Blood culture 1 out of 2 revealed Staph epidermidis- contaminant as per ID specialist. Repeated blood culture 05/23 were negative. Fevers resolved. Echocardiogram demonstrated was a technically difficult study. Normal left ventricular chamber size, systolic function and wall motion to the extent visualized. Left ventricular ejection fraction estimated to be 55%. SNF medication continued. Blood pressure was managed with calcium channel christel and BRANDON inhibitor. Flomax continued. Strict aspiration and reflux precaution maintained. Diet texture provided as per speech therapist recommendation after bedside swallow evaluation was completed. Wound care for present on admission stage III sacral decub with periwound erythema and breakdown and incontinence associated dermatitis , provided as per surgeon recommendation. Continue wound care at the facility. Bowel regimen instituted . Supportive care provided. Patient clinically stabilized and was ready for transfer back to prison facility for continuation of care. FINAL DIAGNOSES: COVID-19 pneumonia Hypertension Cerebrovascular disease with history of CVA with aphasia BPH Alzheimer dementia Dysphagia Decubitus skin ukcer, present on admission DISCHARGE MEDICATIONS: See Medication Reconciliation list. DISCHARGE INSTRUCTIONS: Patient was discharged to the prison facility. Follow up with medical doctor at the facility. I have been assigned to dictate discharge summary for this account. I was not involved in the patient's management. Yari Baugh NP Jun 01, 2020 11:24
== END 2020-05-31 14:18 | DRG 177 ==
LOC: EDUNIT# 13:55 → EDBD 13:55 → EMR 14:29 → 2E 14:40 → EDBEDREQ 15:03 → 4E 05-29 20:25
DX: U07.1 COVID-19 (principal); L89.43 Pressure ulcer of contiguous site of back, buttock and hip, stage 3; J12.89 Other viral pneumonia; J98.11 Atelectasis; I12.9 Hypertensive chronic kidney disease with stage 1 through stage 4 chronic kidney disease, or unspecified chronic kidney disease; G30.9 Alzheimer's disease, unspecified; F02.80 Dementia in other diseases classified elsewhere, unspecified severity, without behavioral disturbance, psychotic disturbance, mood disturbance, and anxiety; N18.2 Chronic kidney disease, stage 2 (mild); N50.89 Other specified disorders of the male genital organs; N49.2 Inflammatory disorders of scrotum; M81.0 Age-related osteoporosis without current pathological fracture; Z79.82 Long term (current) use of aspirin; I50.9 Heart failure, unspecified; N40.0 Benign prostatic hyperplasia without lower urinary tract symptoms; K21.9 Gastro-esophageal reflux disease without esophagitis; R13.10 Dysphagia, unspecified; I69.320 Aphasia following cerebral infarction; G93.89 Other specified disorders of brain; E78.00 Pure hypercholesterolemia, unspecified
CPT/HCPCS: 36415; 36600; 71045; 80053; 80069; 81003; 82248; 82728; 82803; 83605; 83615; 83735; 83880; 84100; 84484; 85007; 85025; 85379; 85384; 85610; 85651; 85730; 86140; 87040; 87081; 87086; 87181; 92610; 93005; 93306; 94664; 96365; 96368; 96375; 99291; J3490; U0002

== ENCOUNTER 2020-07-03 17:05 | Inpatient (IN) | payer MEDICARE, OTHER ==
[~2020-07-03] VITALS: Ht 162.6 cm; Wt 59.0 kg
[2020-07-03 17:05] VITALS: BP 113/74
[~2020-07-03 17:05] MED LIST changes: +AMLODIPINE BESYL5 MG ORAL; +ARICEPT10 MG ORAL; +ASPIRIN81 MG ORAL; +ATORVASTATIN CA10 MG ORAL; +BACLOFEN5 MG PO; +DONEPEZIL HCL10 MG ORAL; +FUROSEMIDE20 M1 ORAL; +MULTIVITAMINS1 EAC8 ORAL; +POTASSIUM CHLO10 MEQ ORAL; +VITAMIN C500 M1 ORAL; +ZINC SULFATE220 M1 ORAL
--- NOTE | 2020-07-03 17:05 | NUR ---
ED Nurse Note: Patient brought into ED by [facility] unit [facility] from [facility] for c/o fever and SOB. Upon ED arrival patient is on NRB at 15L oxygen with 90% o2 sat per EMS. Patient placed on air sampling and monitoring and oxygen saturation is noted at 96% on NRB 15L oxygen. He is coughing and has thick sputum production. Patient is awake and opens eyes spontaneously, does not follow commands and is nonverbal besides moaning at this time. Labored breathing noted. HR is also noted to be tachy at 106. ERMD is bedside. Per EMS, pt had COVID19 in May and sending facility stated he tested negative last week. Patient has rectal temp of 100.2F. All safety measures met; will continue to closely monitor for change in condition.
--- NOTE | 2020-07-03 17:10 | NUR ---
ED Nurse Note: Mild redness noted to sacral area, but no open wounds/ulcers.
[2020-07-03] MEDS ORDERED: NORVASC5 MG ORAL (17:13)
--- NOTE | 2020-07-03 17:13 | Emergency Room Report ---
History of Present Illness General Source: Patient, EMS Present Illness HPI Patient is a 79-year-old male sent in from nursing facility for increased congestion and difficulty with breathing. He was noted to have diminished oxygen saturation. Had prior history of chronic debilitation. Had previous history of dementia. Was noted to have fever up to 100.9 at his facility. He had been noted to be short of breath and was started on nonrebreather. Patient is known to be full code. Patient is nonverbal at baseline. Allergies: Coded Allergies: No Known Allergies (Unverified , 04/30/12) COVID-19 Screening Contact w/high risk pt: Yes Experienced COVID-19 symptoms?: Yes COVID-19 symptoms experienced: Fever (T>100.4F or >38C) Patient History Past Medical History: see triage record Reviewed Nursing Documentation: PMH: Agreed; PSxH: Agreed Nursing Documentation-PMH Hx Cardiac Problems: Yes - ckd, gerd, bph, pna, bronchitis, Hx Hypertension: Yes Hx Pacemaker: No Hx Asthma: No Hx COPD: No Hx Diabetes: Yes - type 2 Hx Cancer: No Hx Gastrointestinal Problems: Yes - DYSPHAGIA Hx Dialysis: No Hx Neurological Problems: Yes Hx Cerebrovascular Accident: Yes - dysphagia Hx Dementia: Yes Hx Alzheimer's Disease: Yes Hx Seizures: No Hx Weakness: Yes Review of Systems All Other Systems: limited - Limited by poor historian Physical Exam General Appearance: alert, moderate distress, Chronically Ill Neck: limited range of motion Respiratory: no respiratory distress, rhonchi Cardiovascular #1: normal peripheral pulses, no edema Gastrointestinal: normal inspection, normal bowel sounds, non tender, soft Musculoskeletal: other - Right lower extremity in external rotation and somewhat contracted. Neurologic: alert, responsive, aphasia, other - Nonverbal, moves his upper ex tremity and is able to grasp objects. Psychiatric: depressed affect Skin: no rash Medical Decision Making Diagnostic Impression: Primary Impression: Aphasia Additional Impressions: UTI (urinary tract infection) Severe sepsis Multifocal pneumonia ER Course Patient presented for shortness of breath. Differential diagnosis include was not limited to pneumonia, coronavirus infection, congestive heart failure among others. Because of complexity of patient's case laboratory tests and imaging studies were ordered. Chest x-ray 1 view showed normal cardiac size with left- sided increased interstitial markings and possible pneumonia. as well as right- sided hemiarthroplasty to the shoulder. Patient started on IV fluids as well as IV antibiotics. He is known to be febrile. Coronavirus testing was sent. EKG interpreted by me showed sinus tachycardia with a left anterior fascicular block was markedly limited by motion artifact from tremor. Patient was maintained on supplemental oxygen. patient was given Lovenox. CT imaging was deferred given patient's abnormal creatinine. Dr. Ahsan Hodges was contacted for inpatient management Labs Test 07/03/20 17:30 07/03/20 17:37 07/03/20 17:47 07/03/20 18:25 White Blood Count 12.3 K/UL (4.8-10.8) Red Blood Count 5.49 M/UL (4.70-6.10) Hemoglobin 16.4 G/DL (14.2-18.0) Hematocrit 51.8 % (42.0-52.0) Mean Corpuscular Volume 94 FL (80-99) Mean Corpuscular Hemoglobin 29.9 PG (27.0-31.0) Mean Corpuscular Hemoglobin Concent 31.7 G/DL (32.0-36.0) Red Cell Distribution Width 15.6 % (11.6-14.8) Platelet Count 246 K/UL (150-450) Mean Platelet Volume 9.2 FL (6.5-10.1) Neutrophils (%) (Auto) 75.2 % (45.0-75.0) Lymphocytes (%) (Auto) 18.0 % (20.0-45.0) Monocytes (%) (Auto) 6.1 % (1.0-10.0) Eosinophils (%) (Auto) 0.0 % (0.0-3.0) Basophils (%) (Auto) 0.7 % (0.0-2.0) Sodium Level 155 MMOL/L (136-145) Potassium Level 4.2 MMOL/L (3.5-5.1) Chloride Level 116 MMOL/L (98-107) Carbon Dioxide Level 30 MMOL/L (21-32) Blood Urea Nitrogen 53 mg/dL (7-18) Creatinine 2.4 MG/DL (0.55-1.30) Estimat Glomerular Filtration Rate 26.4 mL/min (>60) Glucose Level 178 MG/DL (74-106) Lactic Acid Level 3.90 mmol/L (0.4-2.0) Calcium Level 9.5 MG/DL (8.5-10.1) Phosphorus Level 4.7 MG/DL (2.5-4.9) Magnesium Level 2.8 MG/DL (1.8-2.4) Total Bilirubin 0.8 MG/DL (0.2-1.0) Aspartate Amino Transf (AST/SGOT) 20 U/L (15-37) Alanine Aminotransferase (ALT/SGPT) 19 U/L (12-78) Alkaline Phosphatase 126 U/L (46-116) Total Creatine Kinase 101 U/L (26-308) Creatine Kinase MB 0.8 NG/ML (0.0-3.6) Creatine Kinase MB Relative Index 0.7 Troponin I 0.032 ng/mL (0.000-0.056) Pro-B-Type Natriuretic Peptide 1253 pg/mL (0-125) Total Protein 7.6 G/DL (6.4-8.2) Albumin 2.6 G/DL (3.4-5.0) Globulin 5.0 g/dL Albumin/Globulin Ratio 0.5 (1.0-2.7) Urine Color Yellow Urine Appearance Slightly cloudy Urine pH 5 (4.5-8.0) Urine Specific [place] 1.020 (1.005-1.035) Urine Protein 2+ (NEGATIVE) Urine Glucose (UA) Negative (NEGATIVE) Urine Ketones 1+ (NEGATIVE) Urine Blood 1+ (NEGATIVE) Urine Nitrite Negative (NEGATIVE) Urine Bilirubin Negative (NEGATIVE) Urine Urobilinogen 1 MG/DL (0.0-1.0) Urine Leukocyte Esterase 1+ (NEGATIVE) Urine RBC 5-10 /HPF (0 - 0) Urine WBC 15-20 /HPF (0 - 0) Urine Squamous Epithelial Cells None /LPF (NONE/OCC) Urine Transitional Epithelial Cells /LPF (NONE) Urine Bacteria Moderate /HPF (NONE) Urine Hyaline Casts 0-2 /LPF (NONE) Urine Mucus Moderate /LPF (NONE/OCC) POC Whole Blood Glucose 176 MG/DL (74-106) Arterial Blood pH 7.387 (7.350-7.450) Arterial Blood Partial Pressure CO2 31.1 mmHg (35.0-45.0) Arterial Blood Partial Pressure O2 74.1 mmHg (75.0-100.0) Arterial Blood HCO3 18.3 mmol/L (22.0-26.0) Arterial Blood Oxygen Saturation 93.8 % (95-100) Arterial Blood Base Excess -5.5 (-2-2) Richard Test Positive EKG Diagnostic Results Rate: tachycardiac Rhythm: NSR ST Segments: no acute changes Status: unchanged Disposition: ADMITTED INPATIENT Condition: Serious Calderon Art MD Jul 03, 2020 17:13
[2020-07-03] MEDS ORDERED: Cefepime HCl 2 GM in NS 110 ML IV ONE (17:15)
[2020-07-03] MEDS ORDERED: Vancomycin 1 GM in NS 275 ML IV ONE (17:15)
[2020-07-03] MEDS ORDERED: Acetaminophen 650 MG SUPP RECTAL ONE (18:00)
[2020-07-03 18:21] LABS: APPEARANCE,URINE SLIGHTLY CLOUDY; BILIRUBIN, URINE NEGATIVE (NEGATIVE); GLUCOSE, URINE (UA) NEGATIVE (NEGATIVE); KETONES,URINE 1+ (NEGATIVE); LEUKOCYTE ESTERASE ,URINE 1+ (NEGATIVE); NITRITE,URINE NEGATIVE (NEGATIVE); PH,URINE 5 (4.5-8.0); PROTEIN,URINE 2+ (NEGATIVE); UROBILINOGEN,URINE 1 MG/DL (0.0-1.0)
[2020-07-03 18:22] LABS: COLOR,URINE YELLOW
--- NOTE | 2020-07-03 18:23 | Diagnostic Imaging Report ---
EXAM: XR Chest, 1 View CLINICAL HISTORY: SOB TECHNIQUE: Frontal view of the chest. COMPARISON: Chest radiograph on 05/23/2020 FINDINGS: Hardware: None. Lungs/pleura: Patchy opacities in the left greater than right lower lungs. Emphysematous changes. No pleural effusion or pneumothorax. Heart/mediastinum: Normal. No cardiomegaly. Soft tissues: Unremarkable. Bones: No acute fracture. Right shoulder prosthesis partially visualized. Degenerative changes of the acromioclavicular joints. Upper abdomen: Normal. IMPRESSION: Patchy opacities in left greater than right lower lungs which may represent atelectasis on the right and atelectasis versus pneumonia on the left.
[2020-07-03 18:27] LABS: BASOPHILS % (AUTO) 0.7 % (0.0-2.0); HEMATOCRIT 51.8 % (42.0-52.0); HEMOGLOBIN 16.4 G/DL (14.2-18.0); MEAN CORPUSCULAR VOLUME 94 FL (80-99); MONOCYTES % (AUTO) 6.1 % (1.0-10.0); NEUTROPHILS % (AUTO) 75.2 % (45.0-75.0); PLATELET COUNT 246 K/UL (150-450); RED BLOOD COUNT 5.49 M/UL (4.70-6.10); RED CELL DISTRIBUTION WIDTH 15.6 % (11.6-14.8); WHITE BLOOD COUNT 12.3 K/UL (4.8-10.8)
[2020-07-03] MEDS ORDERED: Omnipaque 350 100ml vial INJ PRN (18:45)
[2020-07-03 18:50] LABS: ALANINE AMINOTRANSFERASE 19 U/L (12-78); ALBUMIN 2.6 G/DL (3.4-5.0); ALBUMIN/GLOBULIN RATIO 0.5 (1.0-2.7); ALKALINE PHOSPHATASE 126 U/L (46-116); ASPARTATE AMINO TRANSFERASE 20 U/L (15-37); BILIRUBIN,TOTAL 0.8 MG/DL (0.2-1.0); BLOOD UREA NITROGEN 53 mg/dL (7-18); CALCIUM 9.5 MG/DL (8.5-10.1); CARBON DIOXIDE 30 MMOL/L (21-32); CHLORIDE 116 MMOL/L (98-107); CKMB 0.8 NG/ML (0.0-3.6); CREATINE KINASE 101 U/L (26-308); CREATININE 2.4 MG/DL (0.55-1.30); PHOSPHORUS 4.7 MG/DL (2.5-4.9); POTASSIUM 4.2 MMOL/L (3.5-5.1); SODIUM 155 MMOL/L (136-145)
[2020-07-03 19:15] VITALS: BP 125/94
[2020-07-03] MEDS ORDERED: Enoxaparin 60mg Inj SUBQ ONE (19:15)
--- NOTE | 2020-07-03 19:15 | NUR ---
ED Nurse Note: Patient is in bed with eyes closed. No signs of acute distress. HR is WNL at this time and temperature has decreased. His breathing appears to be unlabored at this time with o2 sat of 100% on 15L NRB. Will cont. to monitor. No changes in mental status.
[2020-07-03 20:30] VITALS: BP 125/89
[2020-07-03] MEDS ORDERED: Miralax 17gm pkt ORAL PRN (20:30)
[2020-07-03] MEDS ORDERED: Nitroglycerin Subl 0.4mg tab SL PRN (20:30)
[2020-07-03] MEDS ORDERED: Promethazine/Codeine 5ml UD ORAL PRN (20:30)
[2020-07-03] MEDS ORDERED: Albuterol/Ipratropium 3ml neb HHN PRN (20:30)
--- NOTE | 2020-07-03 20:30 | NUR ---
ED Nurse Note: VSS. Pt repositioned and provided with blanket for comfort. No change in conditon. Safety measures met.
[2020-07-03] MEDS ORDERED: Varibar Honey 250ml MC PRN (21:00)
[2020-07-03] MEDS ORDERED: Varibar Thin Liquid powder 148gm MC PRN (21:00)
[2020-07-03] MEDS ORDERED: Varibar Pudding 230ml MC PRN (21:00)
[2020-07-03] MEDS ORDERED: Varibar Nectar 240ml MC PRN (21:00)
--- NOTE | 2020-07-03 21:05 | NUR ---
ED Nurse Note: Report given to FLORES Walsh.
--- NOTE | 2020-07-03 21:10 | NUR ---
ED Nurse Note: Patient taken to SDU unit at this time as ordered. He is awake and alert, no change in mental status. Patient is breathing normal on 15L oxygen via NRB. Oxygen saturation is stable along with other vital signs. He does not appear to be in any distress at this time. IV is patent on forearm. Patient transferred to unit without complication and transferred care to receiving nurse.
--- NOTE | 2020-07-03 21:16 | NUR ---
NURSE NOTES: Received report from FLORES Carrasquillo. Pt is transported via gurney, on rebreather mask @ 15 L O2 and saturating 100%. Pt opens eyes spontaneously but does not track, nonverbal. Sinus Rhythm on the property assessment monitor. IV on L wrist 24G and R forearm 22G both patent and intact. Skin issues noted and dressing changed. Wiley catheter is patent and intact and draining light norbert colored urine. Bed is in locked and in lowest position, bed alarm on, call light within reach, and head of bed is elevated. Will continue to monitor pt. Will continue with the plan of care.
--- NOTE | 2020-07-03 21:19 | History & Physical ---
History and Physical History & Physicial Job # Ahsan Hodges MD Jul 03, 2020 21:19
[2020-07-03] MEDS: Heparin 5000 units/ml inj SUBQ SCH (21:54)
--- NOTE | 2020-07-03 22:30 | NUR ---
NURSE NOTES: Dr. Hodges rounded in bedside, made aware of recent labs: Na of 155 and lactic acid of 4.4. Dr. Hodges started on D5 E @ 75cc/hr. Will continue to monitor pt.
[2020-07-04] VITALS (7 sets, daily range): BP systolic 98–136; BP diastolic 62–81
--- NOTE | 2020-07-04 01:00 | NUR ---
NURSE NOTES: Noted pt gurgling, deep suction done. On Non-rebreather mask at 15, saturating at 100%. No acute distress noted at this time. Will continue to monitor.
--- NOTE | 2020-07-04 04:00 | NUR ---
NURSE NOTES: Pt gurgling noted, deep suction done, sputum sent for culture. On Non-rebreather mask at 15, saturating at 100%. No acute distress noted at this time. Will continue to monitor.
[2020-07-04 05:08] LABS: EOSINOPHILS % (AUTO) 0.2 % (0.0-3.0); HEMATOCRIT 42.3 % (42.0-52.0); HEMOGLOBIN 13.4 G/DL (14.2-18.0); LYMPHOCYTES % (AUTO) 23.1 % (20.0-45.0); MEAN CORPUSCULAR VOLUME 93 FL (80-99); MONOCYTES % (AUTO) 6.6 % (1.0-10.0); NEUTROPHILS % (AUTO) 69.1 % (45.0-75.0); PLATELET COUNT 209 K/UL (150-450); RED BLOOD COUNT 4.55 M/UL (4.70-6.10); RED CELL DISTRIBUTION WIDTH 14.5 % (11.6-14.8); WHITE BLOOD COUNT 9.7 K/UL (4.8-10.8)
[2020-07-04 05:52] LABS: ALBUMIN 2.1 G/DL (3.4-5.0); ANION GAP 9 mmol/L (5-15); BLOOD UREA NITROGEN 44 mg/dL (7-18); CALCIUM 8.1 MG/DL (8.5-10.1); CARBON DIOXIDE 24 MMOL/L (21-32); CHLORIDE 121 MMOL/L (98-107); CREATININE 1.6 MG/DL (0.55-1.30); POTASSIUM 3.6 MMOL/L (3.5-5.1); SODIUM 154 MMOL/L (136-145)
[2020-07-04 06:03] LABS: CALCIUM 8.3 MG/DL (8.5-10.1); CREATININE 1.7 MG/DL (0.55-1.30); POTASSIUM 3.5 MMOL/L (3.5-5.1)
[2020-07-04] MEDS: NovoLOG Insulin Flexpen SUBQ SCH ×4 (06:23→20:15)
--- NOTE | 2020-07-04 06:33 | NUR ---
NURSE NOTES: Titrate NBM to venturi 10L, 50%, saturating at 99%. Will continue to monitor.
--- NOTE | 2020-07-04 07:14 | NUR ---
NURSE HAND-OFF REPORT: Important Events on Shift: new admission Patient Status: stable, full code Diet: NPO Pending Orders: none Pending Results/Labs: isolation swab Pending MD notification:none Latest Vital Signs: Temperature 97.2 , Pulse 78 , B/P 104 /72 , Respiratory Rate 20 , O2 SAT 100 , Non-Rebreather, O2 Flow Rate 15.0 . Vital Sign Comment: stable EKG Rhythm: Sinus Rhythm Rhythm change?: N MD Notified?: - MD Response: Latest Gonzalez Fall Score: 70 Fall Risk: High Risk Safety Measures: Call light Within Reach, Bed Alarm Zone 1, Side Rails Side Rails x3, Bed position Low and Locked. Fall Precautions: Yellow Socks Yellow Gown Door Sign Patient Fall Education Report given to FLORES Dodd
--- NOTE | 2020-07-04 07:20 | NUR ---
NURSE NOTES: Received report from Jillian TANNER, patient in bed, awake/opens eyes spontaneously, noted mumbling words, SR on the cardiac rehab nurse. On venturi @10L saturating well. IV on L wrist 24G running D5W @ 75 cc/hr , no signs of infiltration noted and R forearm 22G intact, patent and flushed well. With ziegler catheter is patent and intact and draining light norbert colored urine via gravity . Bed is in locked and in lowest position, bed alarm on, call light within reach, and head of bed is elevated. Will continue to monitor
[2020-07-04] MEDS ORDERED: Vancomycin 1gm/D5W 275ml IVPB ONE ×2 (08:00)
--- NOTE | 2020-07-04 08:10 | Consultation ---
History of Present Illness General Date patient seen: Jul 04, 2020 Time patient seen: 11:00 Chief Complaint: Generalized Weakness Referring physician: Dr. Hodges Reason for Consultation: Sepsis Present Illness HPI 79-year-old male sent in from nursing facility for increased congestion and difficulty with breathing. He was noted to have diminished oxygen saturation. Had prior history of chronic debilitation. Had previous history of dementia. Was noted to have fever up to 100.9 at his facility. He had been noted to be short of breath and was started on nonrebreather. Patient is known to be full code. Patient is nonverbal at baseline. As pt nonverbal, history obtained via chart review. Allergies: Coded Allergies: No Known Allergies (Unverified , 04/30/12) Medication History Scheduled Alendronate Sodium* (Fosamax*), 70 MG ORAL ONCE A WEEK, (Reported) Amlodipine Besylate (Norvasc), 5 MG ORAL DAILY, (Reported) Amlodipine Besylate* (Amlodipine Besylate*), 5 MG ORAL DAILY, (Reported) Ascorbic Acid* (Vitamin C*), 500 MG ORAL DAILY, (Reported) Aspirin* (Aspirin*), 81 MG ORAL DAILY, (Reported) Atorvastatin Calcium* (Lipitor*), 10 MG ORAL BEDTIME, (Reported) Baclofen (Baclofen), 5 MG PO DAILY, (Reported) Calcium Carbonate/Vitamin D3 (Calcium 500+D Tablet Chew), 1 EACH PO DAILY, (Reported) Cranberry Fruit Concentrate (Cranberry), 450 MG PO BID, (Reported) Docusate Sodium* (Colace*), 200 MG ORAL DAILY, (Reported) Donepezil Hcl* (Donepezil Hcl*), 10 MG ORAL DAILY, (Reported) Furosemide* (Lasix*), 20 MG ORAL DAILY, (Reported) Multivitamin With Minerals (Multivitamins With Minerals*), 1 TAB ORAL DAILY, (Reported) Potassium Chloride* (K-Dur*), 10 MEQ ORAL DAILY, (Reported) Tamsulosin HCl (Flomax), 0.4 MG ORAL DAILY, (Reported) Zinc Sulfate (Zinc Sulfate*), 220 MG ORAL DAILY, (Reported) Scheduled PRN Acetaminophen (Tylenol), 650 MG ORAL Q6H PRN for Fever/Headache/Mild Pain, (Reported) Nitroglycerin (Nitroglycerin), 0.4 MG SL NEEDED PRN for CHEST PAIN, (Reported) Patient History Healthcare decision maker N Resuscitation status Advanced Directive on File Review of Systems ROS Narrative Unable to assess 2/2 pt condition Physical Exam Physical Exam Narrative Gen: NAD HEENT: NCAT CV: RRR Pulm: Rhonchi anteriorly, lots of oral secretions Abd: Soft, NTND Ext: No c/c/e Neuro: Awake Last 24 Hour Vital Signs Date Time Temp Pulse Resp B/P (MAP) Pulse Ox O2 Delivery O2 Flow Rate FiO2 07/04/20 04:00 78 07/04/20 04:00 15.0 07/04/20 04:00 97.2 82 20 104/72 (83) 100 82 07/04/20 04:00 Non-Rebreather 15.0 07/04/20 00:00 15.0 07/04/20 00:00 Non-Rebreather 15.0 07/04/20 00:00 97.0 73 16 114/81 (92) 97 07/03/20 23:28 90 07/03/20 22:05 95 07/03/20 21:10 98.8 78 20 115/80 100 Non-Rebreather 15.0 07/03/20 20:56 Non-Rebreather 15.0 07/03/20 20:30 97.9 80 22 125/89 100 Non-Rebreather 15.0 07/03/20 19:15 97.9 95 22 125/94 100 Non-Rebreather 15.0 07/03/20 18:26 97.9 07/03/20 17:05 106 24 Non-Rebreather 15.0 07/03/20 17:05 100.2 106 24 113/74 96 Non-Rebreather 15.0 07/03/20 17:04 98.8 108 25 108/58 (75) 90 Non-Rebreather Intake and Output 07/03/20 07/04/20 19:00 07:00 Intake Total 377.5 ml Output Total 300 ml Balance 77.5 ml Intake Oral 0 ml IV Total 377.5 ml Output Urine Total 300 ml # Bowel Movements 3 Laboratory Tests Test 07/03/20 17:30 07/03/20 17:37 07/03/20 17:47 07/03/20 18:25 White Blood Count 12.3 K/UL (4.8-10.8) H Red Blood Count 5.49 M/UL (4.70-6.10) Hemoglobin 16.4 G/DL (14.2-18.0) Hematocrit 51.8 % (42.0-52.0) Mean Corpuscular Volume 94 FL (80-99) Mean Corpuscular Hemoglobin 29.9 PG (27.0-31.0) Mean Corpuscular Hemoglobin Concent 31.7 G/DL (32.0-36.0) L Red Cell Distribution Width 15.6 % (11.6-14.8) H Platelet Count 246 K/UL (150-450) Mean Platelet Volume 9.2 FL (6.5-10.1) Neutrophils (%) (Auto) 75.2 % (45.0-75.0) H Lymphocytes (%) (Auto) 18.0 % (20.0-45.0) L Monocytes (%) (Auto) 6.1 % (1.0-10.0) Eosinophils (%) (Auto) 0.0 % (0.0-3.0) Basophils (%) (Auto) 0.7 % (0.0-2.0) Sodium Level 155 MMOL/L (136-145) H Potassium Level 4.2 MMOL/L (3.5-5.1) Chloride Level 116 MMOL/L (98-107) H Carbon Dioxide Level 30 MMOL/L (21-32) Blood Urea Nitrogen 53 mg/dL (7-18) H Creatinine 2.4 MG/DL (0.55-1.30) H Estimat Glomerular Filtration Rate 26.4 mL/min (>60) Glucose Level 178 MG/DL (74-106) H Lactic Acid Level 3.90 mmol/L (0.4-2.0) H Calcium Level 9.5 MG/DL (8.5-10.1) Phosphorus Level 4.7 MG/DL (2.5-4.9) Magnesium Level 2.8 MG/DL (1.8-2.4) H Total Bilirubin 0.8 MG/DL (0.2-1.0) Aspartate Amino Transf (AST/SGOT) 20 U/L (15-37) Alanine Aminotransferase (ALT/SGPT) 19 U/L (12-78) Alkaline Phosphatase 126 U/L (46-116) H Total Creatine Kinase 101 U/L (26-308) Creatine Kinase MB 0.8 NG/ML (0.0-3.6) Creatine Kinase MB Relative Index 0.7 Troponin I 0.032 ng/mL (0.000-0.056) Pro-B-Type Natriuretic Peptide 1253 pg/mL (0-125) H Total Protein 7.6 G/DL (6.4-8.2) Albumin 2.6 G/DL (3.4-5.0) L Globulin 5.0 g/dL Albumin/Globulin Ratio 0.5 (1.0-2.7) L Urine Color Yellow Urine Appearance Slightly cloudy Urine pH 5 (4.5-8.0) Urine Specific [place] 1.020 (1.005-1.035) Urine Protein 2+ (NEGATIVE) H Urine Glucose (UA) Negative (NEGATIVE) Urine Ketones 1+ (NEGATIVE) H Urine Blood 1+ (NEGATIVE) H Urine Nitrite Negative (NEGATIVE) Urine Bilirubin Negative (NEGATIVE) Urine Urobilinogen 1 MG/DL (0.0-1.0) H Urine Leukocyte Esterase 1+ (NEGATIVE) H Urine RBC 5-10 /HPF (0 - 0) H Urine WBC 15-20 /HPF (0 - 0) H Urine Squamous Epithelial Cells None /LPF (NONE/OCC) Urine Transitional Epithelial Cells /LPF (NONE) Urine Bacteria Moderate /HPF (NONE) H Urine Hyaline Casts 0-2 /LPF (NONE) H Urine Mucus Moderate /LPF (NONE/OCC) H POC Whole Blood Glucose 176 MG/DL (74-106) H Arterial Blood pH 7.387 (7.350-7.450) Arterial Blood Partial Pressure CO2 31.1 mmHg (35.0-45.0) L Arterial Blood Partial Pressure O2 74.1 mmHg (75.0-100.0) L Arterial Blood HCO3 18.3 mmol/L (22.0-26.0) L Arterial Blood Oxygen Saturation 93.8 % (95-100) L Arterial Blood Base Excess -5.5 (-2-2) L Richard Test Positive Test 07/03/20 19:40 07/04/20 03:25 07/04/20 06:20 Lactic Acid Level 4.40 mmol/L (0.66-2.22) H 1.60 mmol/L (0.4-2.0) White Blood Count 9.7 K/UL (4.8-10.8) Red Blood Count 4.55 M/UL (4.70-6.10) L Hemoglobin 13.4 G/DL (14.2-18.0) L Hematocrit 42.3 % (42.0-52.0) Mean Corpuscular Volume 93 FL (80-99) Mean Corpuscular Hemoglobin 29.6 PG (27.0-31.0) Mean Corpuscular Hemoglobin Concent 31.8 G/DL (32.0-36.0) L Red Cell Distribution Width 14.5 % (11.6-14.8) Platelet Count 209 K/UL (150-450) Mean Platelet Volume 9.9 FL (6.5-10.1) Neutrophils (%) (Auto) 69.1 % (45.0-75.0) Lymphocytes (%) (Auto) 23.1 % (20.0-45.0) Monocytes (%) (Auto) 6.6 % (1.0-10.0) Eosinophils (%) (Auto) 0.2 % (0.0-3.0) Basophils (%) (Auto) 1.0 % (0.0-2.0) Sodium Level 156 MMOL/L (136-145) H Potassium Level 3.5 MMOL/L (3.5-5.1) Chloride Level 122 MMOL/L (98-107) H Carbon Dioxide Level 25 MMOL/L (21-32) Anion Gap 9 mmol/L (5-15) Blood Urea Nitrogen 44 mg/dL (7-18) H Creatinine 1.7 MG/DL (0.55-1.30) H Estimat Glomerular Filtration Rate 39.3 mL/min (>60) Glucose Level 154 MG/DL (74-106) H Calcium Level 8.3 MG/DL (8.5-10.1) L Phosphorus Level 3.0 MG/DL (2.5-4.9) Albumin 2.1 G/DL (3.4-5.0) L Random Vancomycin Level 11.5 ug/mL POC Whole Blood Glucose 141 MG/DL (74-106) H Microbiology Date/Time Source Procedure Growth Status 07/03/20 17:37 Urine,Clean Catch Urine Culture - Preliminary NO GROWTH Resulted 07/03/20 17:30 Nasopharynx SARS-CoV-2 RdRp Gene Assay - Final Complete 07/03/20 17:30 Nasal Nares - Final Complete 07/03/20 17:30 Nasal Nares - Final Complete Height (Feet): 5 Height (Inches): 4.00 Weight (Pounds): 130 Medications Current Medications Medications (Trade) Dose Ordered Sig/Ankush Route PRN Reason Start Time Stop Time Status Last Admin Dose Admin Acetaminophen (Tylenol) 650 mg Q4H PRN ORAL Temp >100.5 07/03/20 20:30 08/02/20 20:29 Albuterol/ Ipratropium (Albuterol/ Ipratropium) 3 ml Q4H PRN HHN Shortness of Breath 07/03/20 20:30 07/08/20 20:29 Barium Sulfate (Varibar Honey) 250 ml NOW PRN MC RAD 07/03/20 21:00 07/06/20 20:45 Barium Sulfate (Varibar Mcrae) 240 ml NOW PRN MC RAD 07/03/20 21:00 07/06/20 20:45 Barium Sulfate (Varibar Pudding) 230 ml NOW PRN MC RAD 07/03/20 21:00 07/06/20 20:45 Barium Sulfate (Varibar Thin Liquid powder) 148 gm NOW PRN MC RAD 07/03/20 21:00 07/06/20 20:45 Cefepime HCl 1 gm/ Sodium Chloride 55 ml @ 110 mls/hr Q24H IV 07/04/20 18:00 07/11/20 17:59 Dextrose 1,000 ml @ 75 mls/hr [id number] IV 07/03/20 22:45 08/02/20 22:44 07/03/20 22:58 Dextrose (Dextrose 50%) 50 ml Q30M PRN IV Hypoglycemia 07/03/20 22:45 10/01/20 22:44 Heparin Sodium (Porcine) (Heparin 5000 units/ml) 5,000 units EVERY 12 HOURS SUBQ 07/03/20 21:00 08/17/20 20:59 07/03/20 21:54 Insulin Aspart (NovoLOG) BEFORE MEALS AND HS SUBQ 07/04/20 06:30 10/02/20 06:29 07/04/20 06:23 Metronidazole 100 ml @ 100 mls/hr Q12HR IVPB 07/04/20 09:00 07/11/20 08:59 Nitroglycerin (Ntg) 0.4 mg Q5M PRN SL Prn Chest Pain 07/03/20 20:30 08/02/20 20:29 Ondansetron HCl (Zofran) 4 mg Q6H PRN IVP Nausea & Vomiting 07/03/20 20:30 08/02/20 20:29 Polyethylene Glycol (Miralax) 17 gm DAILYPRN PRN ORAL Constipation 07/03/20 20:30 08/02/20 20:29 Promethazine HCl/ Codeine (Phenergan with Codeine) 5 ml Q4H PRN ORAL For Cough 07/03/20 20:30 08/02/20 20:29 Tamsulosin HCl (Flomax) 0.4 mg DAILY ORAL 07/04/20 09:00 08/03/20 08:59 Temazepam (Restoril) 15 mg HSPRN PRN ORAL Insomnia 07/03/20 20:30 07/10/20 20:29 Vancomycin HCl (Vanco pharmacy to dose) 1 ea DAILY PRN MISC Per rx protocol 07/03/20 20:30 08/02/20 20:29 Vancomycin HCl 1 gm/Dextrose 275 ml @ 183.708 mls/hr NOW ONCE IVPB 07/04/20 08:00 07/04/20 09:29 Assessment/Plan Assessment/Plan: 79yo M with: Fever at SNF, 100.2 max here Leukocytosis to 12 Acute hypoxic resp failure, on NRB mask Pneumonia R/o UTI 07/03 BCx p UA 15-20 WBC, UCx NTD COVID rapid neg Flu A/B neg CXR: L pna Resp cx p CKD, Cr 1.7 [facility] resident Non-verbal Plan: Cont cefepime & vanco #2 empiric Stop metronidazole, cefepime is sufficient for aspiration pna Check LFTs F/u BCx, UCx, resp cx Monitor CBC/CMP Monitor resp status Monitor temp curve and hemodynamics D/w RN Thank you for this consult. [facility] will continue to follow. Lorie Ramirez M.D. Jul 04, 2020 08:10
[2020-07-04] MEDS: Tamsulosin 0.4mg cap ORAL SCH (08:39)
[2020-07-04] MEDS: Heparin 5000 units/ml inj SUBQ SCH ×2 (08:43→20:18)
[2020-07-04 09:13] LABS: ALANINE AMINOTRANSFERASE 19 U/L (12-78); ALBUMIN 2.2 G/DL (3.4-5.0); ALKALINE PHOSPHATASE 99 U/L (46-116); ASPARTATE AMINO TRANSFERASE 24 U/L (15-37); BILIRUBIN,DIRECT 0.1 MG/DL (0.0-0.3); BILIRUBIN,TOTAL 0.5 MG/DL (0.2-1.0)
--- NOTE | 2020-07-04 09:47 | Consultation ---
History of Present Illness General Date patient seen: Jul 04, 2020 Time patient seen: 08:00 Chief Complaint: Generalized Weakness Referring physician: Dr. Hodges Reason for Consultation: Sepsis, pneumonia, resp failure Present Illness HPI 79 years old male, resident of [facility] facility, with PMH of CVA, dysphagia, hypertension, diabetes mellitus, BPH, CKD, Alzheimer dementia, was sent for evaluation due to congestion and difficulty breathing. In ER patient was found to be febrile, congested, tachycardic, and hypoxic. Patient required 100% nonrebreather mask. Laboratory work-up revealed elevated lactic acid 3.9, leukocytosis WBC 12.3 . Chest x-ray demonstrated patchy opacity in the left greater than right lower lung , may represent atelectasis on the right side and atelectasis versus pneumonia on the left. Laboratory work-up in addition showed evidence of renal failure with BUN 53, creatinine 2.4. Sodium 155. Glucose 178. Troponin was negative, pro BNP 1253. Albumin 2.6. Urinalysis revealed pyuria, moderate bacteria. EKG revealed sinus tachycardia with left anterior fascicular block, possibly motion artifact from tremors . Septic work-up initiated in emergency department . Patient subsequently admitted to direct observational unit for further management. Pulmonary consult was requested to assist in management of this patient Allergies: Coded Allergies: No Known Allergies (Unverified , 04/30/12) Medication History Scheduled Alendronate Sodium* (Fosamax*), 70 MG ORAL ONCE A WEEK, (Reported) Amlodipine Besylate (Norvasc), 5 MG ORAL DAILY, (Reported) Amlodipine Besylate* (Amlodipine Besylate*), 5 MG ORAL DAILY, (Reported) Ascorbic Acid* (Vitamin C*), 500 MG ORAL DAILY, (Reported) Aspirin* (Aspirin*), 81 MG ORAL DAILY, (Reported) Atorvastatin Calcium* (Lipitor*), 10 MG ORAL BEDTIME, (Reported) Baclofen (Baclofen), 5 MG PO DAILY, (Reported) Calcium Carbonate/Vitamin D3 (Calcium 500+D Tablet Chew), 1 EACH PO DAILY, (Reported) Cranberry Fruit Concentrate (Cranberry), 450 MG PO BID, (Reported) Docusate Sodium* (Colace*), 200 MG ORAL DAILY, (Reported) Donepezil Hcl* (Donepezil Hcl*), 10 MG ORAL DAILY, (Reported) Furosemide* (Lasix*), 20 MG ORAL DAILY, (Reported) Multivitamin With Minerals (Multivitamins With Minerals*), 1 TAB ORAL DAILY, (Reported) Potassium Chloride* (K-Dur*), 10 MEQ ORAL DAILY, (Reported) Tamsulosin HCl (Flomax), 0.4 MG ORAL DAILY, (Reported) Zinc Sulfate (Zinc Sulfate*), 220 MG ORAL DAILY, (Reported) Scheduled PRN Acetaminophen (Tylenol), 650 MG ORAL Q6H PRN for Fever/Headache/Mild Pain, (Reported) Nitroglycerin (Nitroglycerin), 0.4 MG SL NEEDED PRN for CHEST PAIN, (Reported) Patient History Healthcare decision maker N Resuscitation status full code Advanced Directive on File Review of Systems ROS Narrative unable to obtain given patietn's medical condition and ALOC Physical Exam General Appearance: no apparent distress, confused, other - awake, poorly responsoive Lines, tubes and drains: peripheral HEENT: normocephalic, atraumatic, anicteric, other - NGT , VM 50% Respiratory/Chest: other - scattered rhonchi Cardiovascular/Chest: normal peripheral pulses, regular rhythm Abdomen: normal bowel sounds, non tender, soft Extremities: no calf tenderness, normal capillary refill Neurologic: abnormal gait - bedridden Musculoskeletal: atrophy - BLE Last 24 Hour Vital Signs Date Time Temp Pulse Resp B/P (MAP) Pulse Ox O2 Delivery O2 Flow Rate FiO2 07/04/20 08:39 72 07/04/20 08:00 98.8 75 19 98/62 (74) 99 82 07/04/20 04:00 78 07/04/20 04:00 15.0 07/04/20 04:00 97.2 82 20 104/72 (83) 100 82 07/04/20 04:00 Non-Rebreather 15.0 07/04/20 00:00 15.0 07/04/20 00:00 Non-Rebreather 15.0 07/04/20 00:00 97.0 73 16 114/81 (92) 97 07/03/20 23:28 90 07/03/20 22:05 95 07/03/20 21:10 98.8 78 20 115/80 100 Non-Rebreather 15.0 07/03/20 20:56 Non-Rebreather 15.0 07/03/20 20:30 97.9 80 22 125/89 100 Non-Rebreather 15.0 07/03/20 19:15 97.9 95 22 125/94 100 Non-Rebreather 15.0 07/03/20 18:26 97.9 07/03/20 17:05 106 24 Non-Rebreather 15.0 07/03/20 17:05 100.2 106 24 113/74 96 Non-Rebreather 15.0 07/03/20 17:04 98.8 108 25 108/58 (75) 90 Non-Rebreather Intake and Output 07/03/20 07/04/20 19:00 07:00 Intake Total 377.5 ml Output Total 300 ml Balance 77.5 ml Intake Oral 0 ml IV Total 377.5 ml Output Urine Total 300 ml # Bowel Movements 3 Laboratory Tests Test 07/03/20 17:30 07/03/20 17:37 07/03/20 17:47 07/03/20 18:25 White Blood Count 12.3 K/UL (4.8-10.8) H Red Blood Count 5.49 M/UL (4.70-6.10) Hemoglobin 16.4 G/DL (14.2-18.0) Hematocrit 51.8 % (42.0-52.0) Mean Corpuscular Volume 94 FL (80-99) Mean Corpuscular Hemoglobin 29.9 PG (27.0-31.0) Mean Corpuscular Hemoglobin Concent 31.7 G/DL (32.0-36.0) L Red Cell Distribution Width 15.6 % (11.6-14.8) H Platelet Count 246 K/UL (150-450) Mean Platelet Volume 9.2 FL (6.5-10.1) Neutrophils (%) (Auto) 75.2 % (45.0-75.0) H Lymphocytes (%) (Auto) 18.0 % (20.0-45.0) L Monocytes (%) (Auto) 6.1 % (1.0-10.0) Eosinophils (%) (Auto) 0.0 % (0.0-3.0) Basophils (%) (Auto) 0.7 % (0.0-2.0) Sodium Level 155 MMOL/L (136-145) H Potassium Level 4.2 MMOL/L (3.5-5.1) Chloride Level 116 MMOL/L (98-107) H Carbon Dioxide Level 30 MMOL/L (21-32) Blood Urea Nitrogen 53 mg/dL (7-18) H Creatinine 2.4 MG/DL (0.55-1.30) H Estimat Glomerular Filtration Rate 26.4 mL/min (>60) Glucose Level 178 MG/DL (74-106) H Lactic Acid Level 3.90 mmol/L (0.4-2.0) H Calcium Level 9.5 MG/DL (8.5-10.1) Phosphorus Level 4.7 MG/DL (2.5-4.9) Magnesium Level 2.8 MG/DL (1.8-2.4) H Total Bilirubin 0.8 MG/DL (0.2-1.0) Aspartate Amino Transf (AST/SGOT) 20 U/L (15-37) Alanine Aminotransferase (ALT/SGPT) 19 U/L (12-78) Alkaline Phosphatase 126 U/L (46-116) H Total Creatine Kinase 101 U/L (26-308) Creatine Kinase MB 0.8 NG/ML (0.0-3.6) Creatine Kinase MB Relative Index 0.7 Troponin I 0.032 ng/mL (0.000-0.056) Pro-B-Type Natriuretic Peptide 1253 pg/mL (0-125) H Total Protein 7.6 G/DL (6.4-8.2) Albumin 2.6 G/DL (3.4-5.0) L Globulin 5.0 g/dL Albumin/Globulin Ratio 0.5 (1.0-2.7) L Urine Color Yellow Urine Appearance Slightly cloudy Urine pH 5 (4.5-8.0) Urine Specific [place] 1.020 (1.005-1.035) Urine Protein 2+ (NEGATIVE) H Urine Glucose (UA) Negative (NEGATIVE) Urine Ketones 1+ (NEGATIVE) H Urine Blood 1+ (NEGATIVE) H Urine Nitrite Negative (NEGATIVE) Urine Bilirubin Negative (NEGATIVE) Urine Urobilinogen 1 MG/DL (0.0-1.0) H Urine Leukocyte Esterase 1+ (NEGATIVE) H Urine RBC 5-10 /HPF (0 - 0) H Urine WBC 15-20 /HPF (0 - 0) H Urine Squamous Epithelial Cells None /LPF (NONE/OCC) Urine Transitional Epithelial Cells /LPF (NONE) Urine Bacteria Moderate /HPF (NONE) H Urine Hyaline Casts 0-2 /LPF (NONE) H Urine Mucus Moderate /LPF (NONE/OCC) H POC Whole Blood Glucose 176 MG/DL (74-106) H Arterial Blood pH 7.387 (7.350-7.450) Arterial Blood Partial Pressure CO2 31.1 mmHg (35.0-45.0) L Arterial Blood Partial Pressure O2 74.1 mmHg (75.0-100.0) L Arterial Blood HCO3 18.3 mmol/L (22.0-26.0) L Arterial Blood Oxygen Saturation 93.8 % (95-100) L Arterial Blood Base Excess -5.5 (-2-2) L Richard Test Positive Test 07/03/20 19:40 07/04/20 03:20 07/04/20 03:25 07/04/20 06:20 Lactic Acid Level 4.40 mmol/L (0.66-2.22) H 1.60 mmol/L (0.4-2.0) Total Bilirubin 0.5 MG/DL (0.2-1.0) Direct Bilirubin 0.1 MG/DL (0.0-0.3) Aspartate Amino Transf (AST/SGOT) 24 U/L (15-37) Alanine Aminotransferase (ALT/SGPT) 19 U/L (12-78) Alkaline Phosphatase 99 U/L (46-116) Total Protein 5.6 G/DL (6.4-8.2) L Albumin 2.2 G/DL (3.4-5.0) L 2.1 G/DL (3.4-5.0) L White Blood Count 9.7 K/UL (4.8-10.8) Red Blood Count 4.55 M/UL (4.70-6.10) L Hemoglobin 13.4 G/DL (14.2-18.0) L Hematocrit 42.3 % (42.0-52.0) Mean Corpuscular Volume 93 FL (80-99) Mean Corpuscular Hemoglobin 29.6 PG (27.0-31.0) Mean Corpuscular Hemoglobin Concent 31.8 G/DL (32.0-36.0) L Red Cell Distribution Width 14.5 % (11.6-14.8) Platelet Count 209 K/UL (150-450) Mean Platelet Volume 9.9 FL (6.5-10.1) Neutrophils (%) (Auto) 69.1 % (45.0-75.0) Lymphocytes (%) (Auto) 23.1 % (20.0-45.0) Monocytes (%) (Auto) 6.6 % (1.0-10.0) Eosinophils (%) (Auto) 0.2 % (0.0-3.0) Basophils (%) (Auto) 1.0 % (0.0-2.0) Sodium Level 156 MMOL/L (136-145) H Potassium Level 3.5 MMOL/L (3.5-5.1) Chloride Level 122 MMOL/L (98-107) H Carbon Dioxide Level 25 MMOL/L (21-32) Anion Gap 9 mmol/L (5-15) Blood Urea Nitrogen 44 mg/dL (7-18) H Creatinine 1.7 MG/DL (0.55-1.30) H Estimat Glomerular Filtration Rate 39.3 mL/min (>60) Glucose Level 154 MG/DL (74-106) H Calcium Level 8.3 MG/DL (8.5-10.1) L Phosphorus Level 3.0 MG/DL (2.5-4.9) Random Vancomycin Level 11.5 ug/mL POC Whole Blood Glucose 141 MG/DL (74-106) H Microbiology Date/Time Source Procedure Growth Status 07/03/20 17:37 Urine,Clean Catch Urine Culture - Preliminary NO GROWTH Resulted 07/03/20 17:30 Nasopharynx SARS-CoV-2 RdRp Gene Assay - Final Complete 07/03/20 17:30 Nasal Nares - Final Complete 07/03/20 17:30 Nasal Nares - Final Complete Height (Feet): 5 Height (Inches): 4.00 Weight (Pounds): 130 Medications Current Medications Medications (Trade) Dose Ordered Sig/Ankush Route PRN Reason Start Time Stop Time Status Last Admin Dose Admin Acetaminophen (Tylenol) 650 mg Q4H PRN ORAL Temp >100.5 07/03/20 20:30 08/02/20 20:29 Albuterol/ Ipratropium (Albuterol/ Ipratropium) 3 ml Q4H PRN HHN Shortness of Breath 07/03/20 20:30 07/08/20 20:29 Barium Sulfate (Varibar Honey) 250 ml NOW PRN MC RAD 07/03/20 21:00 07/06/20 20:45 Barium Sulfate (Varibar Pater[place]) 240 ml NOW PRN MC RAD 07/03/20 21:00 07/06/20 20:45 Barium Sulfate (Varibar Pudding) 230 ml NOW PRN MC RAD 07/03/20 21:00 07/06/20 20:45 Barium Sulfate (Varibar Thin Liquid powder) 148 gm NOW PRN MC RAD 07/03/20 21:00 07/06/20 20:45 Cefepime HCl 1 gm/ Sodium Chloride 55 ml @ 110 mls/hr Q24H IV 07/04/20 18:00 07/11/20 17:59 Dextrose 1,000 ml @ 75 mls/hr [id number] IV 07/03/20 22:45 08/02/20 22:44 07/03/20 22:58 Dextrose (Dextrose 50%) 50 ml Q30M PRN IV Hypoglycemia 07/03/20 22:45 10/01/20 22:44 Heparin Sodium (Porcine) (Heparin 5000 units/ml) 5,000 units EVERY 12 HOURS SUBQ 07/03/20 21:00 08/17/20 20:59 07/04/20 08:43 Insulin Aspart (NovoLOG) BEFORE MEALS AND HS SUBQ 07/04/20 06:30 10/02/20 06:29 07/04/20 06:23 Nitroglycerin (Ntg) 0.4 mg Q5M PRN SL Prn Chest Pain 07/03/20 20:30 08/02/20 20:29 Ondansetron HCl (Zofran) 4 mg Q6H PRN IVP Nausea & Vomiting 07/03/20 20:30 08/02/20 20:29 Polyethylene Glycol (Miralax) 17 gm DAILYPRN PRN ORAL Constipation 07/03/20 20:30 08/02/20 20:29 Promethazine HCl/ Codeine (Phenergan with Codeine) 5 ml Q4H PRN ORAL For Cough 07/03/20 20:30 08/02/20 20:29 Tamsulosin HCl (Flomax) 0.4 mg DAILY ORAL 07/04/20 09:00 08/03/20 08:59 Temazepam (Restoril) 15 mg HSPRN PRN ORAL Insomnia 07/03/20 20:30 07/10/20 20:29 Vancomycin HCl (Vanco pharmacy to dose) 1 ea DAILY PRN MISC Per rx protocol 07/03/20 20:30 08/02/20 20:29 Objective Narrative Assessment/Plan Assessment/Plan: ASSESSMENT Acute hypoxemic respiratory failure , requiring 100% nonrebreathing mask Sepsis Pneumonia possible aspiration Probable UTI Dysphagia ARF on CKD Hypernatremia History of CVA Diabetes mellitus History of hypertension Alzheimer dementia PLAN OF CARE TIFFANIE supplemental O2 titrate to keep pulse oximetry above 92%, now off NRM and on 50% VM, pulmonary toilet fup CXR on Monday rapid COVID-19 and influenza swab both NGT abx as per ID recs fup with cx DVT prophylaxis a/tussive prn NPO NG tube for meds strict aspiration precaution swallow eval pending IVF monitor renal parameters, lytes , correct electrolytes as needed ,avoid nephrotoxic creatinine trending down BP low, ? impending shock, monitor closely, will not increase IVF rate until check ECHO ( at home on Lasix) , pro BNP elevated BS management with SSI supportive care case discussed and evaluated by supervising physician Yari Baugh NP Jul 04, 2020 09:47
--- NOTE | 2020-07-04 11:25 | NUR ---
CASE MANAGEMENT:REVIEW 79 YR OLD MALE BIBA FROM [facility] CC: SOB, FEVER AND DESATURATING AT SNF SI: PNA. SEPSIS. 100.2 108 25 108/58 90% ON NRB WBC+12.3 NA+154 BUN+44 CR+1.6 IS: IV VANCOMYCIN IV CEFEPIME IV FLAGYL TYLENOL RI 1L NS BOLUS URINE CX CHEST XRAY : [facility]EP [facility]: [facility]
--- NOTE | 2020-07-04 12:30 | History and Physical Report ---
DATE OF ADMISSION: 07/03/2020 CHIEF COMPLAINT: Shortness of breath. HISTORY OF PRESENT ILLNESS: This is a 79-year-old gentleman with past medical history significant for recent COVID-19 pneumonia on 05/21/2020, history of heart failure, diabetes type 2, chronic kidney disease, stage 2, pneumonia, dyslipidemia, dysphagia, dementia, hypocalcemia, Alzheimer, who presented to the hospital from nursing facility after he was noted to have worsening of shortness of breath and chest congestion. The patient has diminished oxygen saturation at the nursing facility noted to have a fever of 100.9 and required oxygen. Shortly after initial evaluation in the nursing facility, the patient was transferred to the hospital. Upon arrival to the emergency department, the patient was noted to be altered than usual and severe shortness of breath. Subsequently, the patient was admitted to PCU with sepsis secondary to urinary tract infection as well as multifocal pneumonia and severe hypernatremia, acute kidney injury and chronic renal insufficiency. PAST MEDICAL HISTORY/PAST SURGICAL HISTORY: As above. History of COVID-19 infection, pneumonia, heart failure, diabetes type 2, hypercholesterolemia, chronic kidney disease, stage 2, dyslipidemia, dysphagia, dementia, hypercalcemia, Alzheimer's dementia, hypertension, prior history of sepsis, encephalopathy, cognitive communication defect, urinary tract infection, history of GERD, BPH, pathological fracture of the right humerus. MEDICATIONS: At the nursing facility, please refer to medication reconciliation. ALLERGIES: No known drug allergies. SOCIAL HISTORY: assisted resident. No smoking, alcohol, or drugs. FAMILY HISTORY: Noncontributory. REVIEW OF SYSTEMS: Very limited secondary to the patient's status. The patient is nonverbal, cannot follow commands and mostly history taken from the ER chart as well as prison documentation. The patient was noted to have fever and shortness of breath. No nausea or vomiting was reported. No fall or head trauma. No diarrhea. PHYSICAL EXAMINATION: VITAL SIGNS: On admission from the emergency department, temperature 98.8, pulse of 108, respirations 25, blood pressure 108/58, repeat was 125/94. GENERAL: The patient awake with deep stimuli, open his eyes, however, cannot follow commands. The patient is on a Ventimask at this time, chronically ill-appearing. HEAD AND NECK: Pupils are equal and reactive to light. Anicteric. NECK: Supple. No JVD. LUNGS: Good air entry. No wheezing or rhonchi, however the patient has a coarse breath sounds. Decreased air in bases. HEART: S1, S2. Regular rhythm. Distant heart sounds. No murmur or gallop. ABDOMEN: Soft, nondistended, nontender. Positive bowel sounds. EXTREMITIES: No cyanosis, clubbing, or edema. NEUROLOGIC: Very limited secondary to the patient's status, cannot follow commands. Opens his eyes with deep stimuli and moving extremities spontaneously. LABORATORY DATA: On admission from the emergency department, WBC of 12, hemoglobin 16, hematocrit 51, platelet is 246. ABG, pH of 7.38, pCO2 of 31, pO2 of 74, saturating 93%. The patient's lactic acid is 4.4. Sodium is 154, potassium is 3.6, chloride is 121, bicarb is 24, BUN is 44, creatinine is 1.6, GFR is 42, glucose is 151, calcium is 8.1, phosphorus is 3.0, albumin is 2.1. Urinalysis, +2 protein, +1 ketone, +1 leukocytes, 5 to 10 rbc, 15 to 20 wbc, moderate urine bacteria, moderate mucosa. The patient has rapid COVID-19 test is negative. EKG, sinus tachy with ventricular rate of 113, left axis deviation. No ST elevation. Poor EKG quality due to the artifact. Chest x-ray was noted to be a patchy opacity in the left greater than right lower lung, which may represent atelectasis on the right and atelectasis versus pneumonia on the left. ASSESSMENT: 1. Acute hypoxemic respiratory failure, most likely secondary to pneumonia and sepsis. 2. Sepsis secondary to urinary tract infection and pneumonia. 3. Possible aspiration pneumonia. 4. Acute kidney injury on chronic renal insufficiency. 5. Dehydration. 6. History of chronic congestive heart failure. 7. Diabetes type 2. 8. Dyslipidemia. 9. Hypertension. 10. Alzheimer's disease. 11. History of COVID-19 infection in May 2020. PLAN: Admit the patient to step-down. We will follow up with Dr. Carreno, Pulmonary Critical Care and Dr. Cho for ID. We will start the patient on D5W due to the hypernatremia and dehydration. Monitor laboratory as well as cultures. Resume prison medication. Start the patient on broad-spectrum antibiotics with vancomycin, cefepime and Flagyl. Code status is full code. DVT prophylaxis is heparin subcutaneous. Ahsan oHdges M.D. DR: MICHEAL JOB#: [id number] CC: IGOR
--- NOTE | 2020-07-04 17:00 | Internal Med Progress Note ---
Subjective Date of Service: Jul 04, 2020 Physician Name Dano Groves Attending Physician Ahsan Hodges MD Current Medications Medications (Trade) Dose Ordered Sig/Ankush Route PRN Reason Start Time Stop Time Status Last Admin Dose Admin Acetaminophen (Tylenol) 650 mg Q4H PRN ORAL Temp >100.5 07/03/20 20:30 08/02/20 20:29 Albuterol/ Ipratropium (Albuterol/ Ipratropium) 3 ml Q4H PRN HHN Shortness of Breath 07/03/20 20:30 07/08/20 20:29 Barium Sulfate (Varibar Honey) 250 ml NOW PRN MC RAD 07/03/20 21:00 07/06/20 20:45 Barium Sulfate (Varibar [place]) 240 ml NOW PRN MC RAD 07/03/20 21:00 07/06/20 20:45 Barium Sulfate (Varibar Pudding) 230 ml NOW PRN MC RAD 07/03/20 21:00 07/06/20 20:45 Barium Sulfate (Varibar Thin Liquid powder) 148 gm NOW PRN MC RAD 07/03/20 21:00 07/06/20 20:45 Cefepime HCl 1 gm/ Sodium Chloride 55 ml @ 110 mls/hr Q24H IV 07/04/20 18:00 07/11/20 17:59 Dextrose 1,000 ml @ 75 mls/hr [id number] IV 07/03/20 22:45 08/02/20 22:44 07/04/20 12:11 Dextrose (Dextrose 50%) 50 ml Q30M PRN IV Hypoglycemia 07/03/20 22:45 10/01/20 22:44 Heparin Sodium (Porcine) (Heparin 5000 units/ml) 5,000 units EVERY 12 HOURS SUBQ 07/03/20 21:00 08/17/20 20:59 07/04/20 08:43 Insulin Aspart (NovoLOG) BEFORE MEALS AND HS SUBQ 07/04/20 06:30 10/02/20 06:29 07/04/20 06:23 Nitroglycerin (Ntg) 0.4 mg Q5M PRN SL Prn Chest Pain 07/03/20 20:30 08/02/20 20:29 Ondansetron HCl (Zofran) 4 mg Q6H PRN IVP Nausea & Vomiting 07/03/20 20:30 08/02/20 20:29 Polyethylene Glycol (Miralax) 17 gm DAILYPRN PRN ORAL Constipation 07/03/20 20:30 08/02/20 20:29 Promethazine HCl/ Codeine (Phenergan with Codeine) 5 ml Q4H PRN ORAL For Cough 07/03/20 20:30 08/02/20 20:29 Tamsulosin HCl (Flomax) 0.4 mg DAILY ORAL 07/04/20 09:00 08/03/20 08:59 Temazepam (Restoril) 15 mg HSPRN PRN ORAL Insomnia 07/03/20 20:30 07/10/20 20:29 [facility] 1 ea DAILY PRN MISC Per rx protocol 07/03/20 20:30 08/02/20 20:29 Allergies: Coded Allergies: No Known Allergies (Unverified , 04/30/12) ROS Limited/Unobtainable: Yes Subjective 79 YO M admitted with shortness of breath. Now pneumonia. Cover for Int med-Dr Hodges Objective Last Vital Signs Date Time Temp Pulse Resp B/P (MAP) Pulse Ox O2 Delivery O2 Flow Rate FiO2 07/04/20 16:39 85 07/04/20 16:35 136/76 (96) 07/04/20 16:00 97.9 20 98 07/04/20 16:00 Nasal Cannula 3.0 Laboratory Tests Test 07/03/20 17:30 07/03/20 17:37 07/03/20 17:47 07/03/20 18:25 White Blood Count 12.3 K/UL (4.8-10.8) H Red Blood Count 5.49 M/UL (4.70-6.10) Hemoglobin 16.4 G/DL (14.2-18.0) Hematocrit 51.8 % (42.0-52.0) Mean Corpuscular Volume 94 FL (80-99) Mean Corpuscular Hemoglobin 29.9 PG (27.0-31.0) Mean Corpuscular Hemoglobin Concent 31.7 G/DL (32.0-36.0) L Red Cell Distribution Width 15.6 % (11.6-14.8) H Platelet Count 246 K/UL (150-450) Mean Platelet Volume 9.2 FL (6.5-10.1) Neutrophils (%) (Auto) 75.2 % (45.0-75.0) H Lymphocytes (%) (Auto) 18.0 % (20.0-45.0) L Monocytes (%) (Auto) 6.1 % (1.0-10.0) Eosinophils (%) (Auto) 0.0 % (0.0-3.0) Basophils (%) (Auto) 0.7 % (0.0-2.0) Sodium Level 155 MMOL/L (136-145) H Potassium Level 4.2 MMOL/L (3.5-5.1) Chloride Level 116 MMOL/L (98-107) H Carbon Dioxide Level 30 MMOL/L (21-32) Blood Urea Nitrogen 53 mg/dL (7-18) H Creatinine 2.4 MG/DL (0.55-1.30) H Estimat Glomerular Filtration Rate 26.4 mL/min (>60) Glucose Level 178 MG/DL (74-106) H Lactic Acid Level 3.90 mmol/L (0.4-2.0) H Calcium Level 9.5 MG/DL (8.5-10.1) Phosphorus Level 4.7 MG/DL (2.5-4.9) Magnesium Level 2.8 MG/DL (1.8-2.4) H Total Bilirubin 0.8 MG/DL (0.2-1.0) Aspartate Amino Transf (AST/SGOT) 20 U/L (15-37) Alanine Aminotransferase (ALT/SGPT) 19 U/L (12-78) Alkaline Phosphatase 126 U/L (46-116) H Total Creatine Kinase 101 U/L (26-308) Creatine Kinase MB 0.8 NG/ML (0.0-3.6) Creatine Kinase MB Relative Index 0.7 Troponin I 0.032 ng/mL (0.000-0.056) Pro-B-Type Natriuretic Peptide 1253 pg/mL (0-125) H Total Protein 7.6 G/DL (6.4-8.2) Albumin 2.6 G/DL (3.4-5.0) L Globulin 5.0 g/dL Albumin/Globulin Ratio 0.5 (1.0-2.7) L Urine Color Yellow Urine Appearance Slightly cloudy Urine pH 5 (4.5-8.0) Urine Specific [place] 1.020 (1.005-1.035) Urine Protein 2+ (NEGATIVE) H Urine Glucose (UA) Negative (NEGATIVE) Urine Ketones 1+ (NEGATIVE) H Urine Blood 1+ (NEGATIVE) H Urine Nitrite Negative (NEGATIVE) Urine Bilirubin Negative (NEGATIVE) Urine Urobilinogen 1 MG/DL (0.0-1.0) H Urine Leukocyte Esterase 1+ (NEGATIVE) H Urine RBC 5-10 /HPF (0 - 0) H Urine WBC 15-20 /HPF (0 - 0) H Urine Squamous Epithelial Cells None /LPF (NONE/OCC) Urine Transitional Epithelial Cells /LPF (NONE) Urine Bacteria Moderate /HPF (NONE) H Urine Hyaline Casts 0-2 /LPF (NONE) H Urine Mucus Moderate /LPF (NONE/OCC) H POC Whole Blood Glucose 176 MG/DL (74-106) H Arterial Blood pH 7.387 (7.350-7.450) Arterial Blood Partial Pressure CO2 31.1 mmHg (35.0-45.0) L Arterial Blood Partial Pressure O2 74.1 mmHg (75.0-100.0) L Arterial Blood HCO3 18.3 mmol/L (22.0-26.0) L Arterial Blood Oxygen Saturation 93.8 % (95-100) L Arterial Blood Base Excess -5.5 (-2-2) L Richard Test Positive Test 07/03/20 19:40 07/04/20 03:20 07/04/20 03:25 07/04/20 06:20 Lactic Acid Level 4.40 mmol/L (0.66-2.22) H 1.60 mmol/L (0.4-2.0) Total Bilirubin 0.5 MG/DL (0.2-1.0) Direct Bilirubin 0.1 MG/DL (0.0-0.3) Aspartate Amino Transf (AST/SGOT) 24 U/L (15-37) Alanine Aminotransferase (ALT/SGPT) 19 U/L (12-78) Alkaline Phosphatase 99 U/L (46-116) Total Protein 5.6 G/DL (6.4-8.2) L Albumin 2.2 G/DL (3.4-5.0) L 2.1 G/DL (3.4-5.0) L White Blood Count 9.7 K/UL (4.8-10.8) Red Blood Count 4.55 M/UL (4.70-6.10) L Hemoglobin 13.4 G/DL (14.2-18.0) L Hematocrit 42.3 % (42.0-52.0) Mean Corpuscular Volume 93 FL (80-99) Mean Corpuscular Hemoglobin 29.6 PG (27.0-31.0) Mean Corpuscular Hemoglobin Concent 31.8 G/DL (32.0-36.0) L Red Cell Distribution Width 14.5 % (11.6-14.8) Platelet Count 209 K/UL (150-450) Mean Platelet Volume 9.9 FL (6.5-10.1) Neutrophils (%) (Auto) 69.1 % (45.0-75.0) Lymphocytes (%) (Auto) 23.1 % (20.0-45.0) Monocytes (%) (Auto) 6.6 % (1.0-10.0) Eosinophils (%) (Auto) 0.2 % (0.0-3.0) Basophils (%) (Auto) 1.0 % (0.0-2.0) Sodium Level 156 MMOL/L (136-145) H Potassium Level 3.5 MMOL/L (3.5-5.1) Chloride Level 122 MMOL/L (98-107) H Carbon Dioxide Level 25 MMOL/L (21-32) Anion Gap 9 mmol/L (5-15) Blood Urea Nitrogen 44 mg/dL (7-18) H Creatinine 1.7 MG/DL (0.55-1.30) H Estimat Glomerular Filtration Rate 39.3 mL/min (>60) Glucose Level 154 MG/DL (74-106) H Calcium Level 8.3 MG/DL (8.5-10.1) L Phosphorus Level 3.0 MG/DL (2.5-4.9) Random Vancomycin Level 11.5 ug/mL POC Whole Blood Glucose 141 MG/DL (74-106) H Test 07/04/20 11:20 07/04/20 16:43 POC Whole Blood Glucose 123 MG/DL (74-106) H 129 MG/DL (74-106) H Microbiology Date/Time Source Procedure Growth Status 07/04/20 04:00 Sputum Gram Stain - Final Resulted 07/04/20 04:00 Sputum Sputum Culture Pending Resulted 07/03/20 17:37 Urine,Clean Catch Urine Culture - Preliminary NO GROWTH Resulted 07/03/20 17:30 Nasopharynx SARS-CoV-2 RdRp Gene Assay - Final Complete 07/03/20 17:30 Nasal Nares - Final Complete 07/03/20 17:30 Nasal Nares - Final Complete Intake and Output 07/03/20 07/04/20 18:59 06:59 Intake Total 377.5 ml Output Total 300 ml Balance 77.5 ml Intake Oral 0 ml IV Total 377.5 ml Output Urine Total 300 ml # Bowel Movements 3 Objective PHYSICAL EXAMINATION: GENERAL: The patient awake with deep stimuli, open his eyes, however, cannot follow commands. The patient is on a Ventimask at this time, chronically ill-appearing. HEAD AND NECK: Pupils are equal and reactive to light. Anicteric. NECK: Supple. No JVD. LUNGS: Good air entry. No wheezing or rhonchi, however the patient has a coarse breath sounds. Decreased air in bases. HEART: S1, S2. Regular rhythm. Distant heart sounds. No murmur or gallop. ABDOMEN: Soft, nondistended, nontender. Positive bowel sounds. EXTREMITIES: No cyanosis, clubbing, or edema. NEUROLOGIC: Very limited secondary to the patient's status, cannot follow commands. Opens his eyes with deep stimuli and moving extremities spontaneously. Assessment/Plan Assessment/Plan ASSESSMENT: 1. Acute hypoxemic respiratory failure, most likely secondary to pneumonia and sepsis. 2. Sepsis secondary to urinary tract infection and pneumonia. 3. Possible aspiration pneumonia. 4. Acute kidney injury on chronic renal insufficiency. 5. Dehydration. 6. History of chronic congestive heart failure. 7. Diabetes type 2. 8. Dyslipidemia. 9. Hypertension. 10. Alzheimer's disease. 11. History of COVID-19 infection in May 2020. PLAN: 1. Admit the patient to step-down. 2. Dr. Carreno,=Pulmonary Critical Care 3. Dr. Cho = Inf Dis. 4. IV= D5W due to the hypernatremia and dehydration. 5. antibiotics = vancomycin, cefepime and Flagyl. 6. Code status is full code. 7. DVT prophylaxis is heparin subcutaneous. Dano Groves MD Jul 04, 2020 17:00
[2020-07-04] MEDS: Cefepime HCl 1 GM in NS 55 ML IV SCH (17:51)
--- NOTE | 2020-07-04 18:07 | NUR ---
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 Noted.
[2020-07-04] MEDS ORDERED: CAL-CITRATE W/200 MG PO (18:12)
[2020-07-04] MEDS ORDERED: BACLOFEN5 MG PO (18:12)
[2020-07-04] MEDS ORDERED: MIRTAZAPINE7.5 MG ORAL (18:12)
[2020-07-04] MEDS ORDERED: TUBERSOL5 TUB UNIT ID (18:12)
--- NOTE | 2020-07-04 19:10 | NUR ---
NURSE NOTES: RECEIVED REPORT FROM FLORES GUADALUPE. PATIENT ASLEEP IN BED, VERBALLY RESPONSIVE MOSTLY IN AMHARIC ALTHOUGH GARBLED, OPENS EYES TO VOICE AND TACTILE STIMULI ONLY. NO S/SX OF PAIN OR DISCOMFORT NOTED AT THIS TIME. ON 2LPM VIA NC- TOLERATING WELL, SAO2 96%. PATIENT NOTED TO BE CONGESTED WITH AUDIBLE GURGLING NOTED- PATIENT ORALLY SUCTIONED AND DEEP SUCTIONED- TOLERATED WELL. NPO STATUS PENDING ST EVALUATION. IV SITE ON LFA AND RFA PATENT, INTACT, AND ASYMPTOMATIC- IVF RUNNING PRESCRIBED. TIERNEY CATHETER DRAINING WELL TO GRAVITY- URINE CLEAR AND YELLOW IN COLOR. FALL AND ASPIRATION PRECAUTIONS IN PLACE. CONTACT ISOLATION IN PLACE. BED LOCKED AND IN LOWEST POSITION, SIDERAILS UP X 3. CALL LIGHT WITHIN REACH, WILL CONTINUE TO MONITOR. Addendum: 07/04/20 at 2221 by Leanne Culver RN IV SITES RFA, LEFT WRIST
--- NOTE | 2020-07-04 19:17 | NUR ---
NURSE HAND-OFF REPORT: Important Events on Shift: Patient Status: Stable Diet: NPO, awaiting speech therpaist swallow evaluation. Pending Orders: None Pending Results/Labs:None Pending MD notification:None Latest Vital Signs: Temperature 97.9 , Pulse 85 , B/P 136 /76 , Respiratory Rate 20 , O2 SAT 98 , Nasal Cannula, O2 Flow Rate 3.0 . Vital Sign Comment: Stable EKG Rhythm: Sinus Rhythm Rhythm change?: N MD Notified?: - MD Response: Latest Gonzalez Fall Score: 70 Fall Risk: High Risk Safety Measures: Call light Within Reach, Bed Alarm Zone 1, Side Rails Side Rails x3, Bed position Low and Locked. Fall Precautions: Yellow Socks Yellow Gown Door Sign Patient Fall Education Report given to FLORES Qureshi.
--- NOTE | 2020-07-04 19:31 | Consultation ---
Consult Note Consult Note I am asked to evaluate the patient at the request of Dr. Hodges for renal failure Patient seen in [facility] this morning. Patient examined. Discussed with RN Yousif. Emergency room note: Patient is a 79-year-old male sent in from nursing facility for increased congestion and difficulty with breathing. He was noted to have diminished oxygen saturation. Had prior history of chronic debilitation. Had previous h istory of dementia. Was noted to have fever up to 100.9 at his facility. He had been noted to be short of breath and was started on nonrebreather. Patient is known to be full code. Patient is nonverbal at baseline. Allergies: No Known Allergies (Unverified , 04/30/12) COVID-19 Screening Contact w/high risk pt: Yes Experienced COVID-19 symptoms?: Yes COVID-19 symptoms experienced: Fever (T>100.4F or >38C) Hx Cardiac Problems: Yes - ckd, gerd, bph, pna, bronchitis, Hx Hypertension: Yes Hx Diabetes: Yes - type 2 Hx Gastrointestinal Problems: Yes - DYSPHAGIA Hx Neurological Problems: Yes Hx Cerebrovascular Accident: Yes - dysphagia Hx Dementia: Yes Hx Alzheimer's Disease: Yes Hx Weakness: Yes . General Appearance: no apparent distress, confused, other - awake, poorly responsoive Lines, tubes and drains: peripheral HEENT: normocephalic, atraumatic, anicteric, other - NGT , VM 50% Respiratory/Chest: other - scattered rhonchi Cardiovascular/Chest: normal peripheral pulses, regular rhythm, occasional irregular beats Abdomen: normal bowel sounds, non tender, soft Extremities: no calf tenderness, normal capillary refill Neurologic: abnormal gait - bedridden Musculoskeletal: atrophy - BLE LABORATORY AND DIAGNOSTIC DATA: Telemetry strip showed sinus rhythm with episodes of accelerated junctional rhythm that goes in and out of sinus rhythm. The rate of the junctional rhythm is around 90. His labs show white count of 7.5, hemoglobin of 13, hematocrit of 41, and platelet count is 179,000. His sodium 148, potassium is 3.6, BUN of 22, creatinine 1.6, and glucose of 123. His initial troponin was 0.032. . Assessment/Plan Plan: 79-year-old male is admitted with acute hypoxic respiratory failure most likely secondary to pneumonia and sepsis, UTI. Acute on chronic renal failure Dehydration Electrolyte imbalances, hypernatremia Hypoalbuminemia Diabetes type 2 History of congestive heart failure Hypertension Hyperlipemia Alzheimer's Previous COVID-19 infection in May 2020 Suggestions: Patient is n.p.o., will continue on IV fluid of D5W 75 cc an hour We will monitor electrolytes and renal parameters Avoid nephrotoxic's Start p.o. when he clears by speech therapist, meanwhile aspiration precautions Keep the blood pressure and blood sugar in check Per orders Tino Connors MD Jul 04, 2020 19:31
--- NOTE | 2020-07-04 20:05 | NUR ---
NURSE NOTES: RT AT BEDSIDE, DEEP SUCTIONING PERFORMED DUE TO CONGESTION/AUDIBLE GURGLING. O2 INCREASED TO 4LPM VIA NC, SAO2 96%. WILL CONTINUE TO MONITOR.
[2020-07-05] VITALS: BP 110/72
--- NOTE | 2020-07-05 01:31 | NUR ---
NURSE NOTES: PATIENT CHANGED, LINEN CHANGED, ORAL CARE PROVIDED, WOUND CARE DONE. DEEP SUCTIONING PERFORMED DUE TO CONGESTION/AUDIBLE GURGLING- PATIENT TOLERATED WELL, SAO2 98%.
[2020-07-05 04:00] VITALS: BP 124/55
[2020-07-05 05:42] LABS: EOSINOPHILS % (AUTO) 0.9 % (0.0-3.0); HEMATOCRIT 41.7 % (42.0-52.0); HEMOGLOBIN 13.1 G/DL (14.2-18.0); LYMPHOCYTES % (AUTO) 23.7 % (20.0-45.0); MEAN CORPUSCULAR VOLUME 93 FL (80-99); MONOCYTES % (AUTO) 7.3 % (1.0-10.0); NEUTROPHILS % (AUTO) 67.2 % (45.0-75.0); PLATELET COUNT 179 K/UL (150-450); RED BLOOD COUNT 4.47 M/UL (4.70-6.10); RED CELL DISTRIBUTION WIDTH 14.6 % (11.6-14.8); WHITE BLOOD COUNT 7.5 K/UL (4.8-10.8)
[2020-07-05 06:05] LABS: CHOLESTEROL 149 MG/DL (< 200); HDL CHOLESTEROL 35 MG/DL (40-60); PHOSPHORUS 2.2 MG/DL (2.5-4.9); TRIGLYCERIDES 204 MG/DL (30-150)
[2020-07-05 06:06] LABS: ALBUMIN 2.1 G/DL (3.4-5.0); ALBUMIN/GLOBULIN RATIO 0.5 (1.0-2.7); BILIRUBIN,TOTAL 0.6 MG/DL (0.2-1.0); CALCIUM 8.2 MG/DL (8.5-10.1); CREATININE 1.6 MG/DL (0.55-1.30); POTASSIUM 3.6 MMOL/L (3.5-5.1)
[2020-07-05 06:16] LABS: CREATINE KINASE 139 U/L (26-308); GAMMA GLUTAMYL TRANSPEPTIDASE 45 U/L (5-85); LACTATE DEHYDROGENASE 214 U/L (81-234)
[2020-07-05] MEDS: NovoLOG Insulin Flexpen SUBQ SCH ×4 (06:30→20:51)
--- NOTE | 2020-07-05 07:15 | NUR ---
NURSE HAND-OFF REPORT: Important Events on Shift: CONGESTION/AUDIBLE GURGLING Patient Status: STABLE Diet: NPO PENDING ST EVAL Pending Orders: ST EVAL Pending Results/Labs:AM LABS Pending MD notification:N/A Latest Vital Signs: Temperature 98.6 , Pulse 69 , B/P 124 /55 , Respiratory Rate 22 , O2 SAT 99 , Nasal Cannula, O2 Flow Rate 4.0 . Vital Sign Comment: STABLE EKG Rhythm: Sinus Rhythm Rhythm change?: N MD Notified?: - MD Response: Latest Gonzalez Fall Score: 70 Fall Risk: High Risk Safety Measures: Call light Within Reach, Bed Alarm Zone 1, Side Rails Side Rails x3, Bed position Low and Locked. Fall Precautions: Yellow Socks Yellow Gown Door Sign Patient Fall Education Report given to FLORES MARTINEZ.
--- NOTE | 2020-07-05 07:20 | NUR ---
NURSE NOTES: Received report from Leanne/RN, Observed patient awake, lying semi-allen's, resting comfortably. AAO x1. On 4L nasal canula, Congested. Wiley cath draining well to gravity. NPO at this time, ST eval pending. Bed in low position and locked, Call light within reach, Encouraged to use call light when needed. Will continue plan of care.
[2020-07-05 08:00] VITALS: BP 118/62
[2020-07-05] MEDS ORDERED: Vancomycin 1gm/D5W 275ml IVPB ONE ×2 (08:00)
[2020-07-05] MEDS: Tamsulosin 0.4mg cap ORAL SCH (08:38)
[2020-07-05] MEDS: Heparin 5000 units/ml inj SUBQ SCH ×2 (08:41→20:53)
--- NOTE | 2020-07-05 10:15 | Pulmonology Progress Note ---
Subjective ROS Limited/Unobtainable: Yes Allergies: Coded Allergies: No Known Allergies (Unverified , 04/30/12) Subjective leukocytosis resolved, afebrile weaned down to O 2 via NC creat down to 1.6 Na down to 148 Objective Last 24 Hour Vital Signs Date Time Temp Pulse Resp B/P (MAP) Pulse Ox O2 Delivery O2 Flow Rate FiO2 07/05/20 08:00 98.1 77 21 118/62 (80) 97 07/05/20 08:00 4.0 07/05/20 08:00 Nasal Cannula 4.0 07/05/20 07:45 79 07/05/20 04:00 Nasal Cannula 4.0 07/05/20 04:00 4.0 07/05/20 04:00 69 07/05/20 04:00 98.6 88 22 124/55 (78) 99 88 07/05/20 00:00 Nasal Cannula 4.0 07/05/20 00:00 78 07/05/20 00:00 98.0 76 22 110/72 (85) 100 76 07/04/20 20:00 87 07/04/20 20:00 98.2 91 22 108/73 (85) 96 91 07/04/20 20:00 Nasal Cannula 4.0 07/04/20 20:00 4.0 07/04/20 16:39 85 07/04/20 16:35 88 136/76 (96) 07/04/20 16:00 97.9 79 20 98/63 (75) 98 78 07/04/20 16:00 Nasal Cannula 3.0 07/04/20 16:00 3.0 07/04/20 12:31 76 07/04/20 12:00 3.0 07/04/20 12:00 Nasal Cannula 3.0 07/04/20 12:00 97.7 75 22 118/69 (85) 99 86 Intake and Output 07/04/20 07/05/20 19:00 07:00 Intake Total 1030 ml 825 ml Output Total 300 ml 400 ml Balance 730 ml 425 ml IV Total 1030 ml 825 ml Output Urine Total 300 ml 400 ml # Bowel Movements 2 Objective General Appearance: no apparent distress, confused, awake, poorly responsive Lines, tubes and drains: peripheral HEENT: normocephalic, atraumatic, anicteric, other - NGT , O2 via NC Respiratory/Chest: scattered rhonchi Cardiovascular/Chest: normal peripheral pulses, regular rhythm Abdomen: normal bowel sounds, non tender, soft Extremities: no calf tenderness, normal capillary refill Neurologic: abnormal gait /bedridden Musculoskeletal: atrophy - BLE Microbiology Date/Time Source Procedure Growth Status 07/04/20 04:00 Sputum Gram Stain - Final Resulted 07/04/20 04:00 Sputum Culture - Preliminary Staphylococcus Aureus Usual Respiratory Yana Resulted 07/03/20 17:45 Blood Blood Culture - Preliminary NO GROWTH AFTER 24 HOURS Resulted 07/03/20 17:37 Urine,Clean Catch Urine Culture - Preliminary NO GROWTH AFTER 24 HOURS Resulted 07/03/20 17:30 Nasopharynx SARS-CoV-2 RdRp Gene Assay - Final Complete 07/03/20 17:30 Nasal Nares - Final Complete 07/03/20 17:30 Nasal Nares - Final Complete 07/03/20 17:30 Blood Blood Culture - Preliminary NO GROWTH AFTER 24 HOURS Resulted Laboratory Tests 07/04/20 11:20: POC Whole Blood Glucose 123H 07/04/20 16:43: POC Whole Blood Glucose 129H 07/04/20 20:07: POC Whole Blood Glucose 119H 07/05/20 03:50: White Blood Count 7.5, Red Blood Count 4.47L, Hemoglobin 13.1L, Hematocrit 41.7L , Mean Corpuscular Volume 93, Mean Corpuscular Hemoglobin 29.2, Mean Corpuscular Hemoglobin Concent 31.3L, Red Cell Distribution Width 14.6, Platelet Count 179, Mean Platelet Volume 10.2H, Neutrophils (%) (Auto) 67.2, Lymphocytes (%) (Auto) 23.7, Monocytes (%) (Auto) 7.3, Eosinophils (%) (Auto) 0.9, Basophils (%) (Auto) 1.0, Sodium Level 148H, Potassium Level 3.6, Chloride Level 113H, Carbon Dioxide Level 26, Anion Gap 9, Blood Urea Nitrogen 23H, Creatinine 1.6H, Estimat Glomerular Filtration Rate 42.1, Glucose Level 123H, Hemoglobin A1c 6.7H, Uric Acid 9.6H, Calcium Level 8.2L, Phosphorus Level 2.2L, Magnesium Level 2.3, Total Bilirubin 0.6, Gamma Glutamyl Transpeptidase 45, Aspartate Amino Transf (AST/SGOT) 20, Alanine Aminotransferase (ALT/SGPT) 13, Alkaline Phosphatase 106, Lactate Dehydrogenase 214, Total Creatine Kinase 139, C-Reactive Protein, Q uantitative 22.8H, Pro-B-Type Natriuretic Peptide 351H, Total Protein 6.4, Albumin 2.1L, Globulin 4.3, Albumin/Globulin Ratio 0.5L, Triglycerides Level 204H, Cholesterol Level 149, LDL Cholesterol 77, HDL Cholesterol 35L, Cholesterol/HDL Ratio 4.3, Vitamin B12 Level 1029H, Thyroid Stimulating Hormone (TSH) 1.797, Random Vancomycin Level 14.6 07/05/20 05:58: POC Whole Blood Glucose 125H Current Medications Medications (Trade) Dose Ordered Sig/Ankush Route PRN Reason Start Time Stop Time Status Last Admin Dose Admin Acetaminophen (Tylenol) 650 mg Q4H PRN ORAL Temp >100.5 07/03/20 20:30 08/02/20 20:29 Albuterol/ Ipratropium (Albuterol/ Ipratropium) 3 ml Q4H PRN HHN Shortness of Breath 07/03/20 20:30 07/08/20 20:29 Barium Sulfate (Varibar Honey) 250 ml NOW PRN MC RAD 07/03/20 21:00 07/06/20 20:45 Barium Sulfate (Varibar [place]) 240 ml NOW PRN MC RAD 07/03/20 21:00 07/06/20 20:45 Barium Sulfate (Varibar Pudding) 230 ml NOW PRN MC RAD 07/03/20 21:00 07/06/20 20:45 Barium Sulfate (Varibar Thin Liquid powder) 148 gm NOW PRN MC RAD 07/03/20 21:00 07/06/20 20:45 Cefepime HCl 1 gm/ Sodium Chloride 55 ml @ 110 mls/hr Q24H IV 07/04/20 18:00 07/11/20 17:59 07/04/20 17:51 Dextrose 1,000 ml @ 75 mls/hr [id number] IV 07/03/20 22:45 08/02/20 22:44 07/05/20 01:06 Dextrose (Dextrose 50%) 50 ml Q30M PRN IV Hypoglycemia 07/03/20 22:45 10/01/20 22:44 Heparin Sodium (Porcine) (Heparin 5000 units/ml) 5,000 units EVERY 12 HOURS SUBQ 07/03/20 21:00 12 20:59 07/05/20 08:41 Insulin Aspart (NovoLOG) BEFORE MEALS AND HS SUBQ 07/04/20 06:30 10/02/20 06:29 07/04/20 06:23 Nitroglycerin (Ntg) 0.4 mg Q5M PRN SL Prn Chest Pain 07/03/20 20:30 08/02/20 20:29 Ondansetron HCl (Zofran) 4 mg Q6H PRN IVP Nausea & Vomiting 07/03/20 20:30 08/02/20 20:29 Polyethylene Glycol (Miralax) 17 gm DAILYPRN PRN ORAL Constipation 07/03/20 20:30 08/02/20 20:29 Promethazine HCl/ Codeine (Phenergan with Codeine) 5 ml Q4H PRN ORAL For Cough 07/03/20 20:30 08/02/20 20:29 Tamsulosin HCl (Flomax) 0.4 mg DAILY ORAL 07/04/20 09:00 08/03/20 08:59 07/05/20 08:38 Temazepam (Restoril) 15 mg HSPRN PRN ORAL Insomnia 07/03/20 20:30 07/10/20 20:29 Vancomycin HCl ([facility] pharmacy to dose) 1 ea DAILY PRN MISC Per rx protocol 07/03/20 20:30 08/02/20 20:29 Assessment/Plan Assessment/Plan ASSESSMENT Acute hypoxemic respiratory failure , requiring 100% nonrebreathing mask- resolving Sepsis Pneumonia , possible aspiration Probable UTI Dysphagia ARF on CKD Hypernatremia History of CVA Diabetes mellitus History of hypertension Alzheimer dementia PLAN OF CARE TIFFANIE supplemental O2 titrate to keep pulse oximetry above 92%, now on o2 via NC pulmonary toilet fup CXR on Monday rapid COVID-19 and influenza swab both NGT abx as per ID recs fup with cx SCX + Staph aureus, fup woth final cx DVT prophylaxis a/tussive prn NPO NG tube for meds strict aspiration precaution swallow eval pending IVF monitor renal parameters, lytes , correct electrolytes as needed ,avoid nephrotoxic creatinine and Na trending down BP better ECHO with pEF 55%, monitor volumes BS management with SSI supportive care case discussed and evaluated by supervising physician Yari Baugh NP Jul 05, 2020 10:15
[2020-07-05 12:00] VITALS: BP 102/68
--- NOTE | 2020-07-05 12:01 | NUR ---
NURSE NOTES: Patient had an episode of accelerated junctional rhythm. No cardio consult at this moment. Left message for dr. Hodges. Awaiting for call back.
--- NOTE | 2020-07-05 12:40 | Nephrology Progress Note ---
Assessment/Plan Problem List: (1) Dehydration (2) MELANIE (acute kidney injury) (3) Renal failure (ARF), acute on chronic (4) Hypoxia (5) Acute encephalopathy (6) Electrolyte imbalance Assessment 79-year-old male is admitted with acute hypoxic respiratory failure most likely secondary to pneumonia and sepsis, UTI. Acute on chronic renal failure Dehydration Electrolyte imbalances, hypernatremia Hypoalbuminemia Diabetes type 2 History of congestive heart failure Hypertension Hyperlipemia Alzheimer's Previous COVID-19 infection in May 2020 Plan Patient is n.p.o., will continue on IV fluid of D5W 75 cc an hour We will monitor electrolytes and renal parameters Avoid nephrotoxic's Start p.o. when he clears by speech therapist, meanwhile aspiration precautions Keep the blood pressure and blood sugar in check Per orders Subjective ROS Limited/Unobtainable: No Constitutional: Reports: malaise, weakness Objective Objective Last 24 Hour Vital Signs Date Time Temp Pulse Resp B/P (MAP) Pulse Ox O2 Delivery O2 Flow Rate FiO2 07/05/20 12:00 96.8 62 21 102/68 (79) 100 07/05/20 12:00 4.0 07/05/20 12:00 Nasal Cannula 4.0 07/05/20 11:50 64 07/05/20 08:00 98.1 77 21 118/62 (80) 97 07/05/20 08:00 4.0 07/05/20 08:00 Nasal Cannula 4.0 07/05/20 07:45 79 07/05/20 04:00 Nasal Cannula 4.0 07/05/20 04:00 4.0 07/05/20 04:00 69 07/05/20 04:00 98.6 88 22 124/55 (78) 99 88 07/05/20 00:00 Nasal Cannula 4.0 07/05/20 00:00 78 07/05/20 00:00 98.0 76 22 110/72 (85) 100 76 07/04/20 20:00 87 07/04/20 20:00 98.2 91 22 108/73 (85) 96 91 07/04/20 20:00 Nasal Cannula 4.0 07/04/20 20:00 4.0 07/04/20 16:39 85 07/04/20 16:35 88 136/76 (96) 07/04/20 16:00 97.9 79 20 98/63 (75) 98 78 07/04/20 16:00 Nasal Cannula 3.0 07/04/20 16:00 3.0 Intake and Output 07/04/20 07/05/20 19:00 07:00 Intake Total 1030 ml 825 ml Output Total 300 ml 400 ml Balance 730 ml 425 ml IV Total 1030 ml 825 ml Output Urine Total 300 ml 400 ml # Bowel Movements 2 Current Medications Medications (Trade) Dose Ordered Sig/Ankush Route PRN Reason Start Time Stop Time Status Last Admin Dose Admin Acetaminophen (Tylenol) 650 mg Q4H PRN ORAL Temp >100.5 07/03/20 20:30 08/02/20 20:29 Albuterol/ Ipratropium (Albuterol/ Ipratropium) 3 ml Q4H PRN HHN Shortness of Breath 07/03/20 20:30 07/08/20 20:29 Barium Sulfate (Varibar Honey) 250 ml NOW PRN MC RAD 07/03/20 21:00 07/06/20 20:45 Barium Sulfate (Varibar [place]) 240 ml NOW PRN MC RAD 07/03/20 21:00 07/06/20 20:45 Barium Sulfate (Varibar Pudding) 230 ml NOW PRN MC RAD 07/03/20 21:00 07/06/20 20:45 Barium Sulfate (Varibar Thin Liquid powder) 148 gm NOW PRN MC RAD 07/03/20 21:00 07/06/20 20:45 Cefepime HCl 1 gm/ Sodium Chloride 55 ml @ 110 mls/hr Q24H IV 07/04/20 18:00 07/11/20 17:59 07/04/20 17:51 Dextrose 1,000 ml @ 75 mls/hr [id number] IV 07/03/20 22:45 08/02/20 22:44 07/05/20 01:06 Dextrose (Dextrose 50%) 50 ml Q30M PRN IV Hypoglycemia 07/03/20 22:45 10/01/20 22:44 Heparin Sodium (Porcine) (Heparin 5000 units/ml) 5,000 units EVERY 12 HOURS SUBQ 07/03/20 21:00 08/17/20 20:59 07/05/20 08:41 Insulin Aspart (NovoLOG) BEFORE MEALS AND HS SUBQ 07/04/20 06:30 10/02/20 06:29 07/04/20 06:23 Nitroglycerin (Ntg) 0.4 mg Q5M PRN SL Prn Chest Pain 07/03/20 20:30 08/02/20 20:29 Ondansetron HCl (Zofran) 4 mg Q6H PRN IVP Nausea & Vomiting 07/03/20 20:30 08/02/20 20:29 Polyethylene Glycol (Miralax) 17 gm DAILYPRN PRN ORAL Constipation 07/03/20 20:30 08/02/20 20:29 Promethazine HCl/ Codeine (Phenergan with Codeine) 5 ml Q4H PRN ORAL For Cough 07/03/20 20:30 08/02/20 20:29 Tamsulosin HCl (Flomax) 0.4 mg DAILY ORAL 07/04/20 09:00 08/03/20 08:59 07/05/20 08:38 Temazepam (Restoril) 15 mg HSPRN PRN ORAL Insomnia 07/03/20 20:30 07/10/20 20:29 Vancomycin HCl ([facility] pharmacy to dose) 1 ea DAILY PRN MISC Per rx protocol 07/03/20 20:30 08/02/20 20:29 Laboratory Tests 07/04/20 16:43: POC Whole Blood Glucose 129H 07/04/20 20:07: POC Whole Blood Glucose 119H 07/05/20 03:50: White Blood Count 7.5, Red Blood Count 4.47L, Hemoglobin 13.1L, Hematocrit 41.7L , Mean Corpuscular Volume 93, Mean Corpuscular Hemoglobin 29.2, Mean Corpuscular Hemoglobin Concent 31.3L, Red Cell Distribution Width 14.6, Platelet Count 179, Mean Platelet Volume 10.2H, Neutrophils (%) (Auto) 67.2, Lymphocytes (%) (Auto) 23.7, Monocytes (%) (Auto) 7.3, Eosinophils (%) (Auto) 0.9, Basophils (%) (Auto) 1.0, Sodium Level 148H, Potassium Level 3.6, Chloride Level 113H, Carbon Dioxide Level 26, Anion Gap 9, Blood Urea Nitrogen 23H, Creatinine 1.6H, Estimat Glomerular Filtration Rate 42.1, Glucose Level 123H, Hemoglobin A1c 6.7H, Uric Acid 9.6H, Calcium Level 8.2L, Phosphorus Level 2.2L, Magnesium Level 2.3, Total Bilirubin 0.6, Gamma Glutamyl Transpeptidase 45, Aspartate Amino Transf (AST/SGOT) 20, Alanine Aminotransferase (ALT/SGPT) 13, Alkaline Phosphatase 106, Lactate Dehydrogenase 214, Total Creatine Kinase 139, C-Reactive Protein, Quantitative 22.8H, Pro-B-Type Natriuretic Peptide 351H, Total Protein 6.4, Albumin 2.1L, Globulin 4.3, Albumin/Globulin Ratio 0.5L, Triglycerides Level 204H, Cholesterol Level 149, LDL Cholesterol 77, HDL Cholesterol 35L, Cholesterol/HDL Ratio 4.3, Vitamin B12 Level 1029H, Thyroid Stimulating Hormone (TSH) 1.797, Random Vancomycin Level 14.6 07/05/20 05:58: POC Whole Blood Glucose 125H 07/05/20 11:19: POC Whole Blood Glucose 134H Height (Feet): 5 Height (Inches): 4.00 Weight (Pounds): 130 General Appearance: no apparent distress, lethargic, confused Cardiovascular: normal rate Respiratory/Chest: decreased breath sounds Abdomen: distended Tino Connors MD Jul 05, 2020 12:40
--- NOTE | 2020-07-05 14:40 | NUR ---
NURSE NOTES: Received order from Dr. Hodges to add physician consult for cardio consult. Order carried out.
--- NOTE | 2020-07-05 15:09 | Internal Med Progress Note ---
Subjective Date of Service: Jul 05, 2020 Physician Name YaneliDano Attending Physician Ahsan Hodges MD Current Medications Medications (Trade) Dose Ordered Sig/Ankush Route PRN Reason Start Time Stop Time Status Last Admin Dose Admin Acetaminophen (Tylenol) 650 mg Q4H PRN ORAL Temp >100.5 07/03/20 20:30 08/02/20 20:29 Albuterol/ Ipratropium (Albuterol/ Ipratropium) 3 ml Q4H PRN HHN Shortness of Breath 07/03/20 20:30 07/08/20 20:29 Barium Sulfate (Varibar Honey) 250 ml NOW PRN MC RAD 07/03/20 21:00 07/06/20 20:45 Barium Sulfate (Varibar [place]) 240 ml NOW PRN MC RAD 07/03/20 21:00 07/06/20 20:45 Barium Sulfate (Varibar Pudding) 230 ml NOW PRN MC RAD 07/03/20 21:00 07/06/20 20:45 Barium Sulfate (Varibar Thin Liquid powder) 148 gm NOW PRN MC RAD 07/03/20 21:00 07/06/20 20:45 Cefepime HCl 1 gm/ Sodium Chloride 55 ml @ 110 mls/hr Q24H IV 07/04/20 18:00 07/11/20 17:59 07/04/20 17:51 Dextrose 1,000 ml @ 75 mls/hr [id number] IV 07/03/20 22:45 08/02/20 22:44 07/05/20 15:02 Dextrose (Dextrose 50%) 50 ml Q30M PRN IV Hypoglycemia 07/03/20 22:45 10/01/20 22:44 Heparin Sodium (Porcine) (Heparin 5000 units/ml) 5,000 units EVERY 12 HOURS SUBQ 07/03/20 21:00 08/17/20 20:59 07/05/20 08:41 Insulin Aspart (NovoLOG) BEFORE MEALS AND HS SUBQ 07/04/20 06:30 10/02/20 06:29 07/04/20 06:23 Nitroglycerin (Ntg) 0.4 mg Q5M PRN SL Prn Chest Pain 07/03/20 20:30 08/02/20 20:29 Ondansetron HCl (Zofran) 4 mg Q6H PRN IVP Nausea & Vomiting 07/03/20 20:30 08/02/20 20:29 Polyethylene Glycol (Miralax) 17 gm DAILYPRN PRN ORAL Constipation 07/03/20 20:30 08/02/20 20:29 Promethazine HCl/ Codeine (Phenergan with Codeine) 5 ml Q4H PRN ORAL For Cough 07/03/20 20:30 08/02/20 20:29 Tamsulosin HCl (Flomax) 0.4 mg DAILY ORAL 07/04/20 09:00 08/03/20 08:59 07/05/20 08:38 Temazepam (Restoril) 15 mg HSPRN PRN ORAL Insomnia 07/03/20 20:30 07/10/20 20:29 Vancomycin HCl ([facility] pharmacy to dose) 1 ea DAILY PRN MISC Per rx protocol 07/03/20 20:30 08/02/20 20:29 Allergies: Coded Allergies: No Known Allergies (Unverified , 04/30/12) ROS Limited/Unobtainable: Yes Subjective 79 YO M admitted with shortness of breath. Now pneumonia. Cover for Int med-Dr Hodges. Step down unit Objective Last Vital Signs Date Time Temp Pulse Resp B/P (MAP) Pulse Ox O2 Delivery O2 Flow Rate FiO2 07/05/20 12:00 96.8 62 21 102/68 (79) 100 07/05/20 12:00 4.0 07/05/20 12:00 Nasal Cannula Laboratory Tests Test 07/04/20 16:43 07/04/20 20:07 07/05/20 03:50 07/05/20 05:58 POC Whole Blood Glucose 129 MG/DL (74-106) H 119 MG/DL (74-106) H 125 MG/DL (74-106) H White Blood Count 7.5 K/UL (4.8-10.8) Red Blood Count 4.47 M/UL (4.70-6.10) L Hemoglobin 13.1 G/DL (14.2-18.0) L Hematocrit 41.7 % (42.0-52.0) L Mean Corpuscular Volume 93 FL (80-99) Mean Corpuscular Hemoglobin 29.2 PG (27.0-31.0) Mean Corpuscular Hemoglobin Concent 31.3 G/DL (32.0-36.0) L Red Cell Distribution Width 14.6 % (11.6-14.8) Platelet Count 179 K/UL (150-450) Mean Platelet Volume 10.2 FL (6.5-10.1) H Neutrophils (%) (Auto) 67.2 % (45.0-75.0) Lymphocytes (%) (Auto) 23.7 % (20.0-45.0) Monocytes (%) (Auto) 7.3 % (1.0-10.0) Eosinophils (%) (Auto) 0.9 % (0.0-3.0) Basophils (%) (Auto) 1.0 % (0.0-2.0) Sodium Level 148 MMOL/L (136-145) H Potassium Level 3.6 MMOL/L (3.5-5.1) Chloride Level 113 MMOL/L (98-107) H Carbon Dioxide Level 26 MMOL/L (21-32) Anion Gap 9 mmol/L (5-15) Blood Urea Nitrogen 23 mg/dL (7-18) H Creatinine 1.6 MG/DL (0.55-1.30) H Estimat Glomerular Filtration Rate 42.1 mL/min (>60) Glucose Level 123 MG/DL (74-106) H Hemoglobin A1c 6.7 % (4.3-6.0) H Uric Acid 9.6 MG/DL (2.6-7.2) H Calcium Level 8.2 MG/DL (8.5-10.1) L Phosphorus Level 2.2 MG/DL (2.5-4.9) L Magnesium Level 2.3 MG/DL (1.8-2.4) Total Bilirubin 0.6 MG/DL (0.2-1.0) Gamma Glutamyl Transpeptidase 45 U/L (5-85) Aspartate Amino Transf (AST/SGOT) 20 U/L (15-37) Alanine Aminotransferase (ALT/SGPT) 13 U/L (12-78) Alkaline Phosphatase 106 U/L (46-116) Lactate Dehydrogenase 214 U/L (81-234) Total Creatine Kinase 139 U/L (26-308) C-Reactive Protein, Quantitative 22.8 mg/dL (0.00-0.90) H Pro-B-Type Natriuretic Peptide 351 pg/mL (0-125) H Total Protein 6.4 G/DL (6.4-8.2) Albumin 2.1 G/DL (3.4-5.0) L Globulin 4.3 g/dL Albumin/Globulin Ratio 0.5 (1.0-2.7) L Triglycerides Level 204 MG/DL (30-150) H Cholesterol Level 149 MG/DL (< 200) LDL Cholesterol 77 mg/dL (<100) HDL Cholesterol 35 MG/DL (40-60) L Cholesterol/HDL Ratio 4.3 (3.3-4.4) Vitamin B12 Level 1029 PG/ML (193-986) H Thyroid Stimulating Hormone (TSH) 1.797 uiU/mL (0.358-3.740) Random Vancomycin Level 14.6 ug/mL Test 07/05/20 11:19 POC Whole Blood Glucose 134 MG/DL (74-106) H Microbiology Date/Time Source Procedure Growth Status 07/04/20 04:00 Sputum Gram Stain - Final Resulted 07/04/20 04:00 Sputum Culture - Preliminary Staphylococcus Aureus Usual Respiratory Yana Resulted 07/03/20 17:45 Blood Blood Culture - Preliminary NO GROWTH AFTER 24 HOURS Resulted 07/03/20 17:37 Urine,Clean Catch Urine Culture - Preliminary NO GROWTH AFTER 24 HOURS Resulted 07/03/20 17:30 Nasopharynx SARS-CoV-2 RdRp Gene Assay - Final Complete 07/03/20 17:30 Nasal Nares - Final Complete 07/03/20 17:30 Nasal Nares - Final Complete 07/03/20 17:30 Blood Blood Culture - Preliminary NO GROWTH AFTER 24 HOURS Resulted Intake and Output 07/04/20 07/05/20 19:00 07:00 Intake Total 1030 ml 825 ml Output Total 300 ml 400 ml Balance 730 ml 425 ml IV Total 1030 ml 825 ml Output Urine Total 300 ml 400 ml # Bowel Movements 2 Objective PHYSICAL EXAMINATION: GENERAL: The patient awake with deep stimuli, open his eyes, however, cannot follow commands. The patient is on a Ventimask at this time, chronically ill-appearing. HEAD AND NECK: Pupils are equal and reactive to light. Anicteric. NECK: Supple. No JVD. LUNGS: Good air entry. No wheezing or rhonchi, however the patient has a coarse breath sounds. Decreased air in bases. HEART: S1, S2. Regular rhythm. Distant heart sounds. No murmur or gallop. ABDOMEN: Soft, nondistended, nontender. Positive bowel sounds. EXTREMITIES: No cyanosis, clubbing, or edema. NEUROLOGIC: Very limited secondary to the patient's status, cannot follow commands. Opens his eyes with deep stimuli and moving extremities spontaneously. Assessment/Plan Assessment/Plan ASSESSMENT: 1. Acute hypoxemic respiratory failure, most likely secondary to pneumonia and sepsis. 2. Sepsis secondary to urinary tract infection and pneumonia. 3. pneumonia=staph aureus 4. Acute kidney injury on chronic renal insufficiency. 5. Dehydration. 6. History of chronic congestive heart failure. 7. Diabetes type 2. 8. Dyslipidemia. 9. Hypertension. 10. Alzheimer's disease. 11. History of COVID-19 infection in May 2020. PLAN: 1. Admit the patient to step-down. 2. Dr. Carreno,=Pulmonary Critical Care 3. Dr. Cho = Inf Dis. 4. IV= D5W due to the hypernatremia and dehydration. 5. antibiotics = vancomycin and cefepime 6. Code status is full code. 7. DVT prophylaxis is heparin subcutaneous. Dano Groves MD Jul 05, 2020 15:09
[2020-07-05 16:00] VITALS: BP 108/57
[2020-07-05] MEDS: Cefepime HCl 1 GM in NS 55 ML IV SCH (17:51)
--- NOTE | 2020-07-05 19:11 | Cardiac Electrophysiology PN ---
Subjective Subjective [id number] Objective Last 24 Hour Vital Signs Date Time Temp Pulse Resp B/P (MAP) Pulse Ox O2 Delivery O2 Flow Rate FiO2 07/05/20 16:00 4.0 07/05/20 16:00 97.0 56 19 108/57 (74) 97 07/05/20 16:00 Nasal Cannula 4.0 07/05/20 15:31 60 07/05/20 12:00 96.8 62 21 102/68 (79) 100 07/05/20 12:00 4.0 07/05/20 12:00 Nasal Cannula 4.0 07/05/20 11:50 64 07/05/20 08:00 98.1 77 21 118/62 (80) 97 07/05/20 08:00 4.0 07/05/20 08:00 Nasal Cannula 4.0 07/05/20 07:45 79 07/05/20 04:00 Nasal Cannula 4.0 07/05/20 04:00 4.0 07/05/20 04:00 69 07/05/20 04:00 98.6 88 22 124/55 (78) 99 88 07/05/20 00:00 Nasal Cannula 4.0 07/05/20 00:00 78 07/05/20 00:00 98.0 76 22 110/72 (85) 100 76 07/04/20 20:00 87 07/04/20 20:00 98.2 91 22 108/73 (85) 96 91 07/04/20 20:00 Nasal Cannula 4.0 07/04/20 20:00 4.0 Intake and Output 07/04/20 07/05/20 19:00 07:00 Intake Total 1030 ml 825 ml Output Total 300 ml 400 ml Balance 730 ml 425 ml IV Total 1030 ml 825 ml Output Urine Total 300 ml 400 ml # Bowel Movements 2 Laboratory Tests Test 07/04/20 20:07 07/05/20 03:50 07/05/20 05:58 07/05/20 11:19 POC Whole Blood Glucose 119 MG/DL (74-106) H 125 MG/DL (74-106) H 134 MG/DL (74-106) H White Blood Count 7.5 K/UL (4.8-10.8) Red Blood Count 4.47 M/UL (4.70-6.10) L Hemoglobin 13.1 G/DL (14.2-18.0) L Hematocrit 41.7 % (42.0-52.0) L Mean Corpuscular Volume 93 FL (80-99) Mean Corpuscular Hemoglobin 29.2 PG (27.0-31.0) Mean Corpuscular Hemoglobin Concent 31.3 G/DL (32.0-36.0) L Red Cell Distribution Width 14.6 % (11.6-14.8) Platelet Count 179 K/UL (150-450) Mean Platelet Volume 10.2 FL (6.5-10.1) H Neutrophils (%) (Auto) 67.2 % (45.0-75.0) Lymphocytes (%) (Auto) 23.7 % (20.0-45.0) Monocytes (%) (Auto) 7.3 % (1.0-10.0) Eosinophils (%) (Auto) 0.9 % (0.0-3.0) Basophils (%) (Auto) 1.0 % (0.0-2.0) Sodium Level 148 MMOL/L (136-145) H Potassium Level 3.6 MMOL/L (3.5-5.1) Chloride Level 113 MMOL/L (98-107) H Carbon Dioxide Level 26 MMOL/L (21-32) Anion Gap 9 mmol/L (5-15) Blood Urea Nitrogen 23 mg/dL (7-18) H Creatinine 1.6 MG/DL (0.55-1.30) H Estimat Glomerular Filtration Rate 42.1 mL/min (>60) Glucose Level 123 MG/DL (74-106) H Hemoglobin A1c 6.7 % (4.3-6.0) H Uric Acid 9.6 MG/DL (2.6-7.2) H Calcium Level 8.2 MG/DL (8.5-10.1) L Phosphorus Level 2.2 MG/DL (2.5-4.9) L Magnesium Level 2.3 MG/DL (1.8-2.4) Total Bilirubin 0.6 MG/DL (0.2-1.0) Gamma Glutamyl Transpeptidase 45 U/L (5-85) Aspartate Amino Transf (AST/SGOT) 20 U/L (15-37) Alanine Aminotransferase (ALT/SGPT) 13 U/L (12-78) Alkaline Phosphatase 106 U/L (46-116) Lactate Dehydrogenase 214 U/L (81-234) Total Creatine Kinase 139 U/L (26-308) C-Reactive Protein, Quantitative 22.8 mg/dL (0.00-0.90) H Pro-B-Type Natriuretic Peptide 351 pg/mL (0-125) H Total Protein 6.4 G/DL (6.4-8.2) Albumin 2.1 G/DL (3.4-5.0) L Globulin 4.3 g/dL Albumin/Globulin Ratio 0.5 (1.0-2.7) L Triglycerides Level 204 MG/DL (30-150) H Cholesterol Level 149 MG/DL (< 200) LDL Cholesterol 77 mg/dL (<100) HDL Cholesterol 35 MG/DL (40-60) L Cholesterol/HDL Ratio 4.3 (3.3-4.4) Vitamin B12 Level 1029 PG/ML (193-986) H Thyroid Stimulating Hormone (TSH) 1.797 uiU/mL (0.358-3.740) Random Vancomycin Level 14.6 ug/mL Test 07/05/20 17:38 POC Whole Blood Glucose Pending Microbiology Date/Time Source Procedure Growth Status 07/04/20 04:00 Sputum Gram Stain - Final Resulted 07/04/20 04:00 Sputum Culture - Preliminary Staphylococcus Aureus Usual Respiratory Yana Resulted 07/03/20 17:45 Blood Blood Culture - Preliminary NO GROWTH AFTER 24 HOURS Resulted 07/03/20 17:37 Urine,Clean Catch Urine Culture - Preliminary NO GROWTH AFTER 24 HOURS Resulted 07/03/20 17:30 Nasopharynx SARS-CoV-2 RdRp Gene Assay - Final Complete 07/03/20 17:30 Nasal Nares - Final Complete 07/03/20 17:30 Nasal Nares - Final Complete 07/03/20 17:30 Blood Blood Culture - Preliminary NO GROWTH AFTER 24 HOURS Resulted Klever Matt MD Jul 05, 2020 19:11
--- NOTE | 2020-07-05 19:39 | NUR ---
NURSE HAND-OFF REPORT: Important Events on Shift: Patient had an episode of accelerated junctional rhythm, Dr. Matt aware Patient Status: Stable Diet: NPO since admission Pending Orders: 2D Echo Pending Results/Labs:morning labs Pending MD notification:NA Latest Vital Signs: Temperature 97.0 , Pulse 56 , B/P 108 /57 , Respiratory Rate 19 , O2 SAT 97 , Nasal Cannula, O2 Flow Rate 4.0 . Vital Sign Comment: Stable EKG Rhythm: Sinus Rhythm Rhythm change?: N MD Notified?: Y -Left Message for Dr. Hodges, No cardio on the case. MD Response: Latest Gonzalez Fall Score: 70 Fall Risk: High Risk Safety Measures: Call light Within Reach, Bed Alarm Zone 1, Side Rails Side Rails x3, Bed position Low and Locked. Fall Precautions: Yellow Socks Yellow Gown Door Sign Patient Fall Education Report given to Patrick/FLORES.
--- NOTE | 2020-07-05 19:40 | NUR ---
NURSE NOTES: Received report from Geno RN. Pt observed patient awake, lying semi-allen's, resting comfortably. No s/s of distress or discomfort noted. Pt AAO x1. Pt on 4L nasal canula, congestion noted. Wiley cath draining well to gravity. NPO at this time, ST eval pending. Bed in low position and locked, call light within reach, encouraged to use call light when needed. Will continue plan of care.
[2020-07-05 20:00] VITALS: BP 106/64
--- NOTE | 2020-07-05 20:15 | Consultation ---
DATE OF CONSULTATION: 07/05/2020 CARDIOLOGY CONSULTATION CONSULTING PHYSICIAN: Klever Matt MD REFERRING PHYSICIAN: Ahsan Hodges MD REASON FOR CONSULTATION: Accelerated junctional rhythm. HISTORY OF PRESENT ILLNESS: Patient is a 79-year-old gentleman who was sent from alf for increased congestion and difficulty breathing. Patient was noticed to have diminished oxygen saturation. Patient has history of dementia and also had a temperature of 100.9 at the facility. Patient was started on nonrebreather and was transferred to [facility]. Patient is nonverbal at baseline. Patient had episode of accelerated junctional rhythm and a cardiac electrophysiology consultation was obtained for further evaluation. REVIEW OF SYSTEMS: Cannot be obtained. PAST MEDICAL HISTORY: As mentioned above. FAMILY HISTORY: Noncontributory. SOCIAL HISTORY: senior care resident. Does not smoke or drink alcohol. PHYSICAL EXAMINATION: VITAL SIGNS: Show blood pressure of 108/57, pulse is 60, respirations 18, and he is afebrile. He is on 4 L nasal cannula. HEAD AND NECK: Showed no JVD. LUNGS: Coarse rhonchi. CARDIOVASCULAR: Shows irregular S1 and S2 with no gallop. ABDOMEN: Soft. EXTREMITIES: No pitting edema. LABORATORY AND DIAGNOSTIC DATA: Telemetry strip showed sinus rhythm with episodes of accelerated junctional rhythm that goes in and out of sinus rhythm. The rate of the junctional rhythm is around 90. His labs show white count of 7.5, hemoglobin of 13, hematocrit of 41, and platelet count is 179,000. His sodium 148, potassium is 3.6, BUN of 22, creatinine 1.6, and glucose of 123. His initial troponin was 0.032. ASSESSMENT AND PLAN: 1. Accelerated junctional rhythm. Patient is not bradycardic. We will completely rule out SC protocol. His echocardiogram showed ejection fraction of 55%. 2. Sepsis, on broad-spectrum IV antibiotic. 3. Respiratory failure, on antibiotic. 4. Dehydration. 5. Acute renal failure. 6. Electrolyte imbalance. 7. History of congestive heart failure, but echocardiogram showed normal left ventricular systolic function. 8. History of previous COVID infection in May 2020. 9. Dementia. Thank you very much for allowing me to participate in the care of this patient. Please do not hesitate to contact me for any questions regarding my evaluation. Klever Matt M.D. DR: BHAVANA JOB#: [id number] CC:
[2020-07-06] VITALS: BP 106/59
[2020-07-06 04:00] VITALS: BP 105/53
[2020-07-06] MEDS: NovoLOG Insulin Flexpen SUBQ SCH ×4 (06:16→20:59)
--- NOTE | 2020-07-06 07:10 | NUR ---
NURSE HAND-OFF REPORT: Important Events on Shift:[] Patient Status: [] Diet: [] Pending Orders: [] Pending Results/Labs:[] Pending MD notification:[] Latest Vital Signs: Temperature 97.5 , Pulse 73 , B/P 105 /53 , Respiratory Rate 18 , O2 SAT 99 , Nasal Cannula, O2 Flow Rate 4.0 . Vital Sign Comment: [] EKG Rhythm: Sinus Rhythm Rhythm change?: N MD Notified?: Y -Left Message for Dr. Hodges, No cardio on the case. MD Response: Latest Gonzalez Fall Score: 70 Fall Risk: High Risk Safety Measures: Call light Within Reach, Bed Alarm Zone 1, Side Rails Side Rails x3, Bed position Low and Locked. Fall Precautions: Yellow Socks Yellow Gown Door Sign Patient Fall Education Report given to [Tequila TANNER].
--- NOTE | 2020-07-06 07:15 | NUR ---
NURSE NOTES: Received report from FLORES Rios. The patient is resting on the bed without acute distress or shortness of breath. The patient is confused, agitated, restless, and Bengali speaking and able to make needs known via verbal communication, facial expression, and body movement. SR with HR of 60-70s on the shelter monitor but was told that the patient had episode of junctional rhythm on 07/05/2020 that was notified by Dr. Matt. The patient is on 4L NC and oxygen saturation is 100%. The patient is kept on NPO for high aspiration precaution until ST evaluation. The patient has Wiley that is intact and patent and draining by gravity. Skin issue noted and dressing intact. The patient has R FA 22G that is intact and patent and running D5W @ 75mL/hr. IV on L wrist discontinued by the patient, and new IV inserted on L hand 20G that is intact and patent. The patient's bed in the lowest position, call light in reach, fall and aspiration precaution reinforced. IV site intact and patent. Will follow up the lab and order. Will closely monitor the patient. Will continue plan of care.
--- NOTE | 2020-07-06 07:30 | NUR ---
NURSE NOTES: Initial nursing assessment done. Initial vital signs taken. The patient is stable at this time. Will continue plan of care.
[2020-07-06 07:42] LABS: ALBUMIN 1.8 G/DL (3.4-5.0); ALBUMIN/GLOBULIN RATIO 0.4 (1.0-2.7); BILIRUBIN,TOTAL 0.6 MG/DL (0.2-1.0); CALCIUM 8.1 MG/DL (8.5-10.1); CREATININE 1.3 MG/DL (0.55-1.30); PHOSPHORUS 2.3 MG/DL (2.5-4.9); POTASSIUM 3.3 MMOL/L (3.5-5.1)
[2020-07-06 07:50] LABS: BASOPHILS % (AUTO) 0.7 % (0.0-2.0); EOSINOPHILS % (AUTO) 1.4 % (0.0-3.0); HEMATOCRIT 38.2 % (42.0-52.0); HEMOGLOBIN 12.7 G/DL (14.2-18.0); LYMPHOCYTES % (AUTO) 20.9 % (20.0-45.0); MEAN CORPUSCULAR VOLUME 90 FL (80-99); MONOCYTES % (AUTO) 7.9 % (1.0-10.0); PLATELET COUNT 192 K/UL (150-450); RED BLOOD COUNT 4.27 M/UL (4.70-6.10); RED CELL DISTRIBUTION WIDTH 13.7 % (11.6-14.8); WHITE BLOOD COUNT 7.6 K/UL (4.8-10.8)
[2020-07-06 08:00] VITALS: BP 107/59
[2020-07-06] MEDS: Tamsulosin 0.4mg cap ORAL SCH (08:14)
[2020-07-06] MEDS: Heparin 5000 units/ml inj SUBQ SCH ×2 (08:16→20:58)
--- NOTE | 2020-07-06 09:00 | NUR ---
NURSE NOTES: Morning medications administered per order. Tolerated well. Unable to administer PO medication due to high aspiration risk and moderate amount secretion at this time. Will wait until ST evaluation to be done. Will continue plan of care.
[2020-07-06] MEDS: Vancomycin 750mg/NS 275ml IVPB SCH ×2 (09:08)
--- NOTE | 2020-07-06 10:05 | NUR ---
NURSE NOTES: Dr. Ramirez was notified regarding MRSA sputum result. No new order at this time. Contact isolation on place. Will continue plan of care.
--- NOTE | 2020-07-06 10:30 | NUR ---
NURSE NOTES: Dr. Matt at the bedside assessed the patient. Notified episode of Junctional rhythm on 07/05/2020. EKG given to be reviewed. Notified downtrending Troponin level from 0.032 to 0.014. No new order at this time. The patient is resting without acute distress or shortness of breath. Will continue plan of care.
--- NOTE | 2020-07-06 11:00 | NUR ---
NURSE NOTES: Dr. Connors at the bedside assessed the patient. Notified abnormal lab including K 3.3 and other abnormal lab. Per Dr. Connors, he will take care of it. Will closely monitor the patient. Will continue plan of care.
--- NOTE | 2020-07-06 11:10 | Cardiac Electrophysiology PN ---
Assessment/Plan Assessment/Plan 1. Accelerated junctional rhythm. Patient is not bradycardic. Ruled out for [facility] Echocardiogram showed ejection fraction of 55%. 2. Sepsis, on broad-spectrum IV antibiotic. 3. Respiratory failure, on antibiotic. 4. Dehydration. 5. Acute renal failure. 6. Electrolyte imbalance. 7. History of congestive heart failure, but echocardiogram showed normal left ventricular systolic function. 8. History of previous COVID infection in May 2020. 9. Dementia. DW RN Subjective Subjective In SR in NAD. Nonverbal. Objective Last 24 Hour Vital Signs Date Time Temp Pulse Resp B/P (MAP) Pulse Ox O2 Delivery O2 Flow Rate FiO2 07/06/20 08:00 Nasal Cannula 4.0 07/06/20 08:00 98.4 73 18 107/59 (75) 99 07/06/20 08:00 4.0 07/06/20 08:00 71 07/06/20 04:00 97.5 75 18 105/53 (70) 99 07/06/20 04:00 Nasal Cannula 4.0 07/06/20 04:00 73 07/06/20 04:00 4.0 07/06/20 00:01 Nasal Cannula 4.0 07/06/20 00:00 87 07/06/20 00:00 97.9 69 18 106/59 (75) 98 07/05/20 20:00 61 07/05/20 20:00 4.0 07/05/20 20:00 Nasal Cannula 4.0 07/05/20 20:00 97.0 71 18 106/64 (78) 100 07/05/20 16:00 4.0 07/05/20 16:00 97.0 56 19 108/57 (74) 97 07/05/20 16:00 Nasal Cannula 4.0 07/05/20 15:31 60 07/05/20 12:00 96.8 62 21 102/68 (79) 100 07/05/20 12:00 4.0 07/05/20 12:00 Nasal Cannula 4.0 07/05/20 11:50 64 Intake and Output 07/05/20 07/06/20 19:00 07:00 Intake Total 75 ml 825 ml Output Total 370 ml 700 ml Balance -295 ml 125 ml IV Total 75 ml 825 ml Output Urine Total 370 ml 700 ml Laboratory Tests Test 07/05/20 11:19 07/05/20 17:38 07/06/20 07:00 POC Whole Blood Glucose 134 MG/DL (74-106) H Pending White Blood Count 7.6 K/UL (4.8-10.8) Red Blood Count 4.27 M/UL (4.70-6.10) L Hemoglobin 12.7 G/DL (14.2-18.0) L Hematocrit 38.2 % (42.0-52.0) L Mean Corpuscular Volume 90 FL (80-99) Mean Corpuscular Hemoglobin 29.8 PG (27.0-31.0) Mean Corpuscular Hemoglobin Concent 33.3 G/DL (32.0-36.0) Red Cell Distribution Width 13.7 % (11.6-14.8) Platelet Count 192 K/UL (150-450) Mean Platelet Volume 10.2 FL (6.5-10.1) H Neutrophils (%) (Auto) 69.0 % (45.0-75.0) Lymphocytes (%) (Auto) 20.9 % (20.0-45.0) Monocytes (%) (Auto) 7.9 % (1.0-10.0) Eosinophils (%) (Auto) 1.4 % (0.0-3.0) Basophils (%) (Auto) 0.7 % (0.0-2.0) Sodium Level 142 MMOL/L (136-145) Potassium Level 3.3 MMOL/L (3.5-5.1) L Chloride Level 108 MMOL/L (98-107) H Carbon Dioxide Level 25 MMOL/L (21-32) Anion Gap 9 mmol/L (5-15) Blood Urea Nitrogen 12 mg/dL (7-18) Creatinine 1.3 MG/DL (0.55-1.30) Estimat Glomerular Filtration Rate 53.5 mL/min (>60) Glucose Level 129 MG/DL (74-106) H Uric Acid 7.9 MG/DL (2.6-7.2) H Calcium Level 8.1 MG/DL (8.5-10.1) L Phosphorus Level 2.3 MG/DL (2.5-4.9) L Magnesium Level 2.2 MG/DL (1.8-2.4) Total Bilirubin 0.6 MG/DL (0.2-1.0) Aspartate Amino Transf (AST/SGOT) 26 U/L (15-37) Alanine Aminotransferase (ALT/SGPT) 10 U/L (12-78) L Alkaline Phosphatase 142 U/L (46-116) H Troponin I 0.014 ng/mL (0.000-0.056) Total Protein 6.0 G/DL (6.4-8.2) L Albumin 1.8 G/DL (3.4-5.0) L Globulin 4.2 g/dL Albumin/Globulin Ratio 0.4 (1.0-2.7) L Vancomycin Level Trough 14.7 ug/mL (5.0-12.0) H Microbiology Date/Time Source Procedure Growth Status 07/04/20 04:00 Sputum Gram Stain - Final Complete 07/04/20 04:00 Sputum Culture - Final Staphylococcus Aureus - Mrsa Usual Respiratory Yana Complete 07/03/20 17:45 Blood Blood Culture - Preliminary NO GROWTH AFTER 24 HOURS Resulted 07/03/20 17:37 Urine,Clean Catch Urine Culture - Preliminary NO GROWTH AFTER 24 HOURS Resulted 07/03/20 17:30 Nasopharynx SARS-CoV-2 RdRp Gene Assay - Final Complete 07/03/20 17:30 Nasal Nares - Final Complete 07/03/20 17:30 Nasal Nares - Final Complete 07/03/20 17:30 Blood Blood Culture - Preliminary NO GROWTH AFTER 24 HOURS Resulted Objective HEAD AND NECK: no JVD. LUNGS: Coarse rhonchi. CARDIOVASCULAR: irregular S1 and S2 with no gallop. ABDOMEN: Soft. EXTREMITIES: No pitting edema. Klever Matt MD Jul 06, 2020 11:10
[2020-07-06 12:00] VITALS: BP 112/56
--- NOTE | 2020-07-06 12:00 | NUR ---
NURSE NOTES: BS 133 noted. No insulin coverage at this time per order. Will closely monitor the patient. Will continue plan of care.
--- NOTE | 2020-07-06 12:17 | Infectious Diseases Prog Note ---
Assessment/Plan 79yo M with: Fever at SNF, 100.2 max here Leukocytosis to 12- SP Acute hypoxic resp failure, on NRB mask> 4l NC Pneumonia- r/o COVID19 R/o UTI 07/03 BCx NTD UA 15-20 WBC, UCx NTD COVID rapid neg Flu A/B neg CXR: L pna Resp cx MRSA CKD, Cr 1.7 SNF resident (ed rosas) Non-verbal Plan: Cont vanco #4/7-10 for MRSA PNA Dc empiric Cefepime #4 -07/04 SP Flagyl # Check LFTs F/u BCx, UCx, resp cx Monitor CBC/CMP Monitor resp status Monitor temp curve and hemodynamics obtain 2nd covid D/w RN Thank you for this consult. [facility] will continue to follow. Subjective Allergies: Coded Allergies: No Known Allergies (Unverified , 04/30/12) afebrile >48hrs cr improving at 4l NC no leukocytosis Objective Last 24 Hour Vital Signs Date Time Temp Pulse Resp B/P (MAP) Pulse Ox O2 Delivery O2 Flow Rate FiO2 07/06/20 12:00 4.0 07/06/20 12:00 97.9 71 18 112/56 (74) 99 07/06/20 12:00 Nasal Cannula 4.0 07/06/20 08:00 Nasal Cannula 4.0 07/06/20 08:00 98.4 73 18 107/59 (75) 99 07/06/20 08:00 4.0 07/06/20 08:00 71 07/06/20 04:00 97.5 75 18 105/53 (70) 99 07/06/20 04:00 Nasal Cannula 4.0 07/06/20 04:00 73 07/06/20 04:00 4.0 07/06/20 00:01 Nasal Cannula 4.0 07/06/20 00:00 87 07/06/20 00:00 97.9 69 18 106/59 (75) 98 07/05/20 20:00 61 07/05/20 20:00 4.0 07/05/20 20:00 Nasal Cannula 4.0 07/05/20 20:00 97.0 71 18 106/64 (78) 100 07/05/20 16:00 4.0 07/05/20 16:00 97.0 56 19 108/57 (74) 97 07/05/20 16:00 Nasal Cannula 4.0 07/05/20 15:31 60 Height (Feet): 5 Height (Inches): 4.00 Weight (Pounds): 130 Gen: NAD HEENT: NCAT CV: RRR Pulm: Rhonchi anteriorly, lots of oral secretions Abd: Soft, NTND Ext: No c/c/e Neuro: Awake Microbiology Date/Time Source Procedure Growth Status 07/04/20 04:00 Sputum Gram Stain - Final Complete 07/04/20 04:00 Sputum Culture - Final Staphylococcus Aureus - Mrsa Usual Respiratory Yana Complete 07/03/20 17:45 Blood Blood Culture - Preliminary NO GROWTH AFTER 24 HOURS Resulted 07/03/20 17:37 Urine,Clean Catch Urine Culture - Preliminary NO GROWTH AFTER 24 HOURS Resulted 07/03/20 17:30 Nasopharynx SARS-CoV-2 RdRp Gene Assay - Final Complete 07/03/20 17:30 Nasal Nares - Final Complete 07/03/20 17:30 Nasal Nares - Final Complete 07/03/20 17:30 Blood Blood Culture - Preliminary NO GROWTH AFTER 24 HOURS Resulted Laboratory Tests Test 07/05/20 17:38 07/06/20 07:00 07/06/20 11:34 POC Whole Blood Glucose Pending Pending White Blood Count 7.6 K/UL (4.8-10.8) Red Blood Count 4.27 M/UL (4.70-6.10) L Hemoglobin 12.7 G/DL (14.2-18.0) L Hematocrit 38.2 % (42.0-52.0) L Mean Corpuscular Volume 90 FL (80-99) Mean Corpuscular Hemoglobin 29.8 PG (27.0-31.0) Mean Corpuscular Hemoglobin Concent 33.3 G/DL (32.0-36.0) Red Cell Distribution Width 13.7 % (11.6-14.8) Platelet Count 192 K/UL (150-450) Mean Platelet Volume 10.2 FL (6.5-10.1) H Neutrophils (%) (Auto) 69.0 % (45.0-75.0) Lymphocytes (%) (Auto) 20.9 % (20.0-45.0) Monocytes (%) (Auto) 7.9 % (1.0-10.0) Eosinophils (%) (Auto) 1.4 % (0.0-3.0) Basophils (%) (Auto) 0.7 % (0.0-2.0) Sodium Level 142 MMOL/L (136-145) Potassium Level 3.3 MMOL/L (3.5-5.1) L Chloride Level 108 MMOL/L (98-107) H Carbon Dioxide Level 25 MMOL/L (21-32) Anion Gap 9 mmol/L (5-15) Blood Urea Nitrogen 12 mg/dL (7-18) Creatinine 1.3 MG/DL (0.55-1.30) Estimat Glomerular Filtration Rate 53.5 mL/min (>60) Glucose Level 129 MG/DL (74-106) H Uric Acid 7.9 MG/DL (2.6-7.2) H Calcium Level 8.1 MG/DL (8.5-10.1) L Phosphorus Level 2.3 MG/DL (2.5-4.9) L Magnesium Level 2.2 MG/DL (1.8-2.4) Total Bilirubin 0.6 MG/DL (0.2-1.0) Aspartate Amino Transf (AST/SGOT) 26 U/L (15-37) Alanine Aminotransferase (ALT/SGPT) 10 U/L (12-78) L Alkaline Phosphatase 142 U/L (46-116) H Troponin I 0.014 ng/mL (0.000-0.056) Total Protein 6.0 G/DL (6.4-8.2) L Albumin 1.8 G/DL (3.4-5.0) L Globulin 4.2 g/dL Albumin/Globulin Ratio 0.4 (1.0-2.7) L Vancomycin Level Trough 14.7 ug/mL (5.0-12.0) H Current Medications Medications (Trade) Dose Ordered Sig/Ankush Route PRN Reason Start Time Stop Time Status Last Admin Dose Admin Acetaminophen (Tylenol) 650 mg Q4H PRN ORAL Temp >100.5 07/03/20 20:30 08/02/20 20:29 Albuterol/ Ipratropium (Albuterol/ Ipratropium) 3 ml Q4H PRN HHN Shortness of Breath 07/03/20 20:30 07/08/20 20:29 Barium Sulfate (Varibar Honey) 250 ml NOW PRN MC RAD 07/03/20 21:00 07/06/20 20:45 Barium Sulfate (Varibar Neligh) 240 ml NOW PRN MC RAD 07/03/20 21:00 07/06/20 20:45 Barium Sulfate (Varibar Pudding) 230 ml NOW PRN MC RAD 07/03/20 21:00 07/06/20 20:45 Barium Sulfate (Varibar Thin Liquid powder) 148 gm NOW PRN MC RAD 07/03/20 21:00 07/06/20 20:45 Cefepime HCl 2 gm/ Dextrose 110 ml @ 220 mls/hr Q24H IV 07/06/20 18:00 07/13/20 17:59 Dextrose 1,000 ml @ 75 mls/hr [id number] IV 07/03/20 22:45 08/02/20 22:44 07/06/20 04:26 Dextrose (Dextrose 50%) 50 ml Q30M PRN IV Hypoglycemia 07/03/20 22:45 10/01/20 22:44 Heparin Sodium (Porcine) (Heparin 5000 units/ml) 5,000 units EVERY 12 HOURS SUBQ 07/03/20 21:00 08/17/20 20:59 07/06/20 08:16 Insulin Aspart (NovoLOG) BEFORE MEALS AND HS SUBQ 07/04/20 06:30 10/02/20 06:29 07/04/20 06:23 Nitroglycerin (Ntg) 0.4 mg Q5M PRN SL Prn Chest Pain 07/03/20 20:30 08/02/20 20:29 Ondansetron HCl (Zofran) 4 mg Q6H PRN IVP Nausea & Vomiting 07/03/20 20:30 08/02/20 20:29 Polyethylene Glycol (Miralax) 17 gm DAILYPRN PRN ORAL Constipation 07/03/20 20:30 08/02/20 20:29 Promethazine HCl/ Codeine (Phenergan with Codeine) 5 ml Q4H PRN ORAL For Cough 07/03/20 20:30 08/02/20 20:29 Tamsulosin HCl (Flomax) 0.4 mg DAILY ORAL 07/04/20 09:00 08/03/20 08:59 07/05/20 08:38 Temazepam (Restoril) 15 mg HSPRN PRN ORAL Insomnia 07/03/20 20:30 07/10/20 20:29 Vancomycin HCl (Vanco pharmacy to dose) 1 ea DAILY PRN MISC Per rx protocol 07/03/20 20:30 08/02/20 20:29 Vancomycin HCl 750 mg/Sodium Chloride 275 ml @ 183.333 mls/hr Q24H IVPB 07/06/20 09:00 07/11/20 08:59 07/06/20 09:08 Ashley Cho M.D. Jul 06, 2020 12:17
--- NOTE | 2020-07-06 12:30 | Pulmonolgy Critical Care Note ---
Critical Care - Asmt/Plan Problems: (1) Acute encephalopathy (2) Severe sepsis (3) Multifocal pneumonia (4) 2019 novel coronavirus disease (COVID-19) (5) Alzheimer's dementia (6) HTN (hypertension) (7) History of CVA (cerebrovascular accident) (8) BPH (benign prostatic hyperplasia) Respiratory: monitor respiratory rate, adjust FIO2, CXR Cardiac: continue to monitor HR/BP Renal: F/U I&O, decrease IV fluid, check electrolytes Infectious Disease: check cultures, continue antibiotics Gastrointestinal: continue feedings/current rate Endocrine: monitor blood sugar, continue sliding scale insulin Hematologic: monitor H/H, transfuse if hgb<8.5 Neurologic: PRN Ativan, PRN Morphine, keep patient comfortable Affect: PRN ativan Prophylaxis: Protonix Disposition: keep in ICU Time Spent (Minutes): 40 Notes Reviewed: culinary intern, cardio, renal Discussed with: nurses, consultants, major case detectivebiomass power plant manager - Objective Last 24 Hour Vital Signs Date Time Temp Pulse Resp B/P (MAP) Pulse Ox O2 Delivery O2 Flow Rate FiO2 07/06/20 12:00 4.0 07/06/20 12:00 97.9 71 18 112/56 (74) 99 07/06/20 12:00 Nasal Cannula 4.0 07/06/20 08:00 Nasal Cannula 4.0 07/06/20 08:00 98.4 73 18 107/59 (75) 99 07/06/20 08:00 4.0 07/06/20 08:00 71 07/06/20 04:00 97.5 75 18 105/53 (70) 99 07/06/20 04:00 Nasal Cannula 4.0 07/06/20 04:00 73 07/06/20 04:00 4.0 07/06/20 00:01 Nasal Cannula 4.0 07/06/20 00:00 87 07/06/20 00:00 97.9 69 18 106/59 (75) 98 07/05/20 20:00 61 07/05/20 20:00 4.0 07/05/20 20:00 Nasal Cannula 4.0 07/05/20 20:00 97.0 71 18 106/64 (78) 100 07/05/20 16:00 4.0 07/05/20 16:00 97.0 56 19 108/57 (74) 97 07/05/20 16:00 Nasal Cannula 4.0 07/05/20 15:31 60 Status: sedated Condition: critical HEENT: atraumatic, normocephalic Neck: trach Lungs: rales, rhonchi Heart: HR/BP stable Abdomen: soft, non-tender, active bowel sounds, feeding tube Micro: Microbiology Date/Time Source Procedure Growth Status 07/04/20 04:00 Sputum Gram Stain - Final Complete 07/04/20 04:00 Sputum Culture - Final Staphylococcus Aureus - Mrsa Usual Respiratory Yana Complete 07/03/20 17:45 Blood Blood Culture - Preliminary NO GROWTH AFTER 24 HOURS Resulted 07/03/20 17:37 Urine,Clean Catch Urine Culture - Preliminary NO GROWTH AFTER 24 HOURS Resulted 07/03/20 17:30 Nasopharynx SARS-CoV-2 RdRp Gene Assay - Final Complete 07/03/20 17:30 Nasal Nares - Final Complete 07/03/20 17:30 Nasal Nares - Final Complete 07/03/20 17:30 Blood Blood Culture - Preliminary NO GROWTH AFTER 24 HOURS Resulted Accucheck: 133 Critical Care - Subjective ROS Limited/Unobtainable: Yes Condition: critical EKG Rhythm: Sinus Rhythm Sputum Amount: Small I&O: Intake and Output 07/05/20 07/06/20 19:00 07:00 Intake Total 75 ml 825 ml Output Total 370 ml 700 ml Balance -295 ml 125 ml IV Total 75 ml 825 ml Output Urine Total 370 ml 700 ml CXR: pending Labs: Laboratory Tests Test 07/05/20 17:38 07/06/20 07:00 07/06/20 11:34 POC Whole Blood Glucose Pending Pending White Blood Count 7.6 K/UL (4.8-10.8) Red Blood Count 4.27 M/UL (4.70-6.10) L Hemoglobin 12.7 G/DL (14.2-18.0) L Hematocrit 38.2 % (42.0-52.0) L Mean Corpuscular Volume 90 FL (80-99) Mean Corpuscular Hemoglobin 29.8 PG (27.0-31.0) Mean Corpuscular Hemoglobin Concent 33.3 G/DL (32.0-36.0) Red Cell Distribution Width 13.7 % (11.6-14.8) Platelet Count 192 K/UL (150-450) Mean Platelet Volume 10.2 FL (6.5-10.1) H Neutrophils (%) (Auto) 69.0 % (45.0-75.0) Lymphocytes (%) (Auto) 20.9 % (20.0-45.0) Monocytes (%) (Auto) 7.9 % (1.0-10.0) Eosinophils (%) (Auto) 1.4 % (0.0-3.0) Basophils (%) (Auto) 0.7 % (0.0-2.0) Sodium Level 142 MMOL/L (136-145) Potassium Level 3.3 MMOL/L (3.5-5.1) L Chloride Level 108 MMOL/L (98-107) H Carbon Dioxide Level 25 MMOL/L (21-32) Anion Gap 9 mmol/L (5-15) Blood Urea Nitrogen 12 mg/dL (7-18) Creatinine 1.3 MG/DL (0.55-1.30) Estimat Glomerular Filtration Rate 53.5 mL/min (>60) Glucose Level 129 MG/DL (74-106) H Uric Acid 7.9 MG/DL (2.6-7.2) H Calcium Level 8.1 MG/DL (8.5-10.1) L Phosphorus Level 2.3 MG/DL (2.5-4.9) L Magnesium Level 2.2 MG/DL (1.8-2.4) Total Bilirubin 0.6 MG/DL (0.2-1.0) Aspartate Amino Transf (AST/SGOT) 26 U/L (15-37) Alanine Aminotransferase (ALT/SGPT) 10 U/L (12-78) L Alkaline Phosphatase 142 U/L (46-116) H Troponin I 0.014 ng/mL (0.000-0.056) Total Protein 6.0 G/DL (6.4-8.2) L Albumin 1.8 G/DL (3.4-5.0) L Globulin 4.2 g/dL Albumin/Globulin Ratio 0.4 (1.0-2.7) L Vancomycin Level Trough 14.7 ug/mL (5.0-12.0) H Kya Carreno MD Jul 06, 2020 12:30
--- NOTE | 2020-07-06 13:10 | NUR ---
NURSE NOTES: COVID positive result reported to Dr. Carreno and Dr. Cho. Will closely monitor the patient. Will continue plan of care. Addendum: 07/06/20 at 1321 by Hugo Bravo RN Isolation started per Dr. Cho's order.
--- NOTE | 2020-07-06 13:24 | Diagnostic Imaging Report ---
Indication: Shortness of breath Technique: One view of the chest Comparison: 07/03/2020 Findings: There is increasing infiltrate at the right lung base and in the left perihilar region. Normal heart size. Impression: Increasing right basilar and left perihilar infiltrate
--- NOTE | 2020-07-06 13:45 | NUR ---
NURSE NOTES: Noticed that Remdesivir got cancelled by the pharmacy. Spoke with Alex regarding the case. Per Alex, the pharmacist, the patient already received the dose of Remdevisir back in May 2020. Alex spoke with Dr. Cho, and Dr. Cho asked to cancel medication. Will closely monitor the patient. Will continue plan of care.
--- NOTE | 2020-07-06 13:48 | NUR ---
RADIOLOGY DEPT., CHEST X-RAY DONE.-P.DYE
--- NOTE | 2020-07-06 14:00 | NUR ---
NURSE NOTES: Dr. Cho at the bedside assessed the patient. Per Dr. Cho, the patient does not need isolation other than contact isolation for MRSA sputum since the patient has history of positive COVID on 05/2020 and was treated with Remdisivir. Dr. Cho was notified that COVID was positive on 07/06/2020 but was told that the patient does not need isolation at this time. CRN was notified. director of community life was notified. Will carry out as ordered. Will closely monitor the patient. Will continue plan of care.
--- NOTE | 2020-07-06 14:51 | NUR ---
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 97.5 HR 75 RR 18 B/P 105/53 4L NC O2 SAT @ 995 K 3.3 IS: IVF D5@ 75ML/HR VANCO IV HEPARIN SUBC STEP DOWN STATUS
--- NOTE | 2020-07-06 15:26 | Nephrology Progress Note ---
Assessment/Plan Problem List: (1) Dehydration (2) MELANIE (acute kidney injury) (3) Renal failure (ARF), acute on chronic (4) Hypoxia (5) Acute encephalopathy (6) Electrolyte imbalance Assessment 79-year-old male is admitted with acute hypoxic respiratory failure most likely secondary to pneumonia and sepsis, UTI. Acute on chronic renal failure Dehydration Electrolyte imbalances, hypernatremia Hypoalbuminemia Diabetes type 2 History of congestive heart failure Hypertension Hyperlipemia Alzheimer's Previous COVID-19 infection in May 2020 Plan July 06: Patient remains n.p.o. IV fluid down to 50 cc an hour. Potassium supplement intravenously ordered. Continue per consultants. Previously: Patient is n.p.o., will continue on IV fluid of D5W 75 cc an hour We will monitor electrolytes and renal parameters Avoid nephrotoxic's Start p.o. when he clears by speech therapist, meanwhile aspiration precautions Keep the blood pressure and blood sugar in check Per orders Subjective ROS Limited/Unobtainable: No Objective Objective Last 24 Hour Vital Signs Date Time Temp Pulse Resp B/P (MAP) Pulse Ox O2 Delivery O2 Flow Rate FiO2 07/06/20 12:00 4.0 07/06/20 12:00 65 07/06/20 12:00 97.9 71 18 112/56 (74) 99 07/06/20 12:00 Nasal Cannula 4.0 07/06/20 08:15 97 Nasal Cannula 07/06/20 08:00 Nasal Cannula 4.0 07/06/20 08:00 98.4 73 18 107/59 (75) 99 07/06/20 08:00 4.0 07/06/20 08:00 71 07/06/20 04:00 97.5 75 18 105/53 (70) 99 07/06/20 04:00 Nasal Cannula 4.0 07/06/20 04:00 73 07/06/20 04:00 4.0 07/06/20 00:01 Nasal Cannula 4.0 07/06/20 00:00 87 07/06/20 00:00 97.9 69 18 106/59 (75) 98 07/05/20 20:00 61 07/05/20 20:00 4.0 07/05/20 20:00 Nasal Cannula 4.0 07/05/20 20:00 97.0 71 18 106/64 (78) 100 07/05/20 16:00 4.0 07/05/20 16:00 97.0 56 19 108/57 (74) 97 07/05/20 16:00 Nasal Cannula 4.0 07/05/20 15:31 60 Intake and Output 07/05/20 07/06/20 19:00 07:00 Intake Total 75 ml 825 ml Output Total 370 ml 700 ml Balance -295 ml 125 ml IV Total 75 ml 825 ml Output Urine Total 370 ml 700 ml Current Medications Medications (Trade) Dose Ordered Sig/Ankush Route PRN Reason Start Time Stop Time Status Last Admin Dose Admin Acetaminophen (Tylenol) 650 mg Q4H PRN ORAL Temp >100.5 07/03/20 20:30 08/02/20 20:29 Albuterol/ Ipratropium (Albuterol/ Ipratropium) 3 ml Q4H PRN HHN Shortness of Breath 07/03/20 20:30 07/08/20 20:29 Barium Sulfate (Varibar Honey) 250 ml NOW PRN MC RAD 07/03/20 21:00 07/06/20 20:45 Barium Sulfate (Varibar [place] [address] [place]) 240 ml NOW PRN MC RAD 07/03/20 21:00 07/06/20 20:45 Barium Sulfate (Varibar Pudding) 230 ml NOW PRN MC RAD 07/03/20 21:00 07/06/20 20:45 Barium Sulfate (Varibar Thin Liquid powder) 148 gm NOW PRN MC RAD 07/03/20 21:00 07/06/20 20:45 Dextrose 1,000 ml @ 75 mls/hr [id number] IV 07/06/20 12:38 08/05/20 12:37 07/06/20 13:12 Dextrose (Dextrose 50%) 50 ml Q30M PRN IV Hypoglycemia 07/03/20 22:45 10/01/20 22:44 Heparin Sodium (Porcine) (Heparin 5000 units/ml) 5,000 units EVERY 12 HOURS SUBQ 07/03/20 21:00 08/17/20 20:59 07/06/20 08:16 Insulin Aspart (NovoLOG) BEFORE MEALS AND HS SUBQ 07/04/20 06:30 10/02/20 06:29 07/04/20 06:23 Nitroglycerin (Ntg) 0.4 mg Q5M PRN SL Prn Chest Pain 07/03/20 20:30 08/02/20 20:29 Ondansetron HCl (Zofran) 4 mg Q6H PRN IVP Nausea & Vomiting 07/03/20 20:30 08/02/20 20:29 Polyethylene Glycol (Miralax) 17 gm DAILYPRN PRN ORAL Constipation 07/03/20 20:30 08/02/20 20:29 Promethazine HCl/ Codeine (Phenergan with Codeine) 5 ml Q4H PRN ORAL For Cough 07/03/20 20:30 08/02/20 20:29 Tamsulosin HCl (Flomax) 0.4 mg DAILY ORAL 07/04/20 09:00 08/03/20 08:59 07/05/20 08:38 Temazepam (Restoril) 15 mg HSPRN PRN ORAL Insomnia 07/03/20 20:30 07/10/20 20:29 Vancomycin HCl (Vanco pharmacy to dose) 1 ea DAILY PRN MISC Per rx protocol 07/03/20 20:30 08/02/20 20:29 Vancomycin HCl 750 mg/Sodium Chloride 275 ml @ 183.333 mls/hr Q24H IVPB 07/06/20 09:00 07/11/20 08:59 07/06/20 09:08 Laboratory Tests 07/05/20 17:38: POC Whole Blood Glucose [Pending] 07/06/20 07:00: White Blood Count 7.6, Red Blood Count 4.27L, Hemoglobin 12.7L, Hematocrit 38.2L , Mean Corpuscular Volume 90, Mean Corpuscular Hemoglobin 29.8, Mean Corpuscular Hemoglobin Concent 33.3, Red Cell Distribution Width 13.7, Platelet Count 192, Mean Platelet Volume 10.2H, Neutrophils (%) (Auto) 69.0, Lymphocytes (%) (Auto) 20.9, Monocytes (%) (Auto) 7.9, Eosinophils (%) (Auto) 1.4, Basophils (%) (Auto) 0.7, Sodium Level 142, Potassium Level 3.3L, Chloride Level 108H, Carbon Dioxide Level 25, Anion Gap 9, Blood Urea Nitrogen 12, Creatinine 1.3, Estimat Glomerular Filtration Rate 53.5, Glucose Level 129H, Uric Acid 7.9H, Calcium Level 8.1L, Phosphorus Level 2.3L, Magnesium Level 2.2, Total Bilirubin 0.6, Aspartate Amino Transf (AST/SGOT) 26, Alanine Aminotransferase (ALT/SGPT) 10L, Alkaline Phosphatase 142H, Troponin I 0.014, Total Protein 6.0L, Albumin 1.8L, Globulin 4.2, Albumin/Globulin Ratio 0.4L, Vancomycin Level Trough 14.7H 07/06/20 11:34: POC Whole Blood Glucose [Pending] Height (Feet): 5 Height (Inches): 4.00 Weight (Pounds): 130 General Appearance: no apparent distress Cardiovascular: normal rate Respiratory/Chest: decreased breath sounds Abdomen: distended Tino Connors MD Jul 06, 2020 15:26
--- NOTE | 2020-07-06 15:45 | NUR ---
NURSE NOTES: D5W rate changed from 75mL/hr to 50mL/hr per Dr. Connors's order. Changed D5W IVF rate into 50mL/hr on IV pump. Due to [employer] issue was not able to scan until late. Spoke with Alex, the pharmacist regarding the issue. Put admin comment under the medication to be clear. Will continue plan of care.
[2020-07-06 16:00] VITALS: BP_SYST 111; BP_SYST 150; BP_DIAS 61; BP_DIAS 83
--- NOTE | 2020-07-06 16:00 | NUR ---
NURSE NOTES: Bed bath given to the patient. The patient tolerated well. Will closely monitor the patient. Will continue plan of care.
[2020-07-06] MEDS ORDERED: Cefepime 2gm/D5W 110ml IV SCH ×2 (18:00)
--- NOTE | 2020-07-06 18:00 | NUR ---
NURSE NOTES: The patient is resting on the bed comfortably without acute distress or shortness of breath. Still has moderate secretions that needs oral suction. The patient is on 4L NC and tolerating well. Will closely monitor the patient. Will continue plan of care.
--- NOTE | 2020-07-06 18:49 | NUR ---
Speech pathology Note (Bedside Dysphagia Evaluation) Indication of Evaluation: concerning for aspiration Brief Note: Mr. Saha is a 79 year old male who is a resident of nursing home home ([facility]) originally from 09/09/2011, current admission 05/31/2020 readmitted [facility] on 07/03/2020 for hypoxia c.w fever noted to pablito leukocytosis 12.3k, gas 7.387/31.1/74.1/18.3/93.8 with NBM on 15 liter. BUN/Creatine 53/2.4 with underlying CKD. I was able to review video fluoroscopic swallow study from 03/23/2017. The findings were noted to be positive for penetration to the laryngeal vestibule to the level of true vocal folds, with delay swallow triggering. This findings are concerning for possible chronic micro aspiration with dementia. Other underlying medical comorbid is CVA, Dysphagia, HTN, DMII, BPH CKD and Alzheimer's dementia. He has been NPO since , current labs are improved and vitals signs are all stable and SPo2 improved to 97~100 on 4 liter via NC. Findings: Mr. Cano is alert, disoriented. He was not able to follow commands. Given him PO trials, he exhibited s.s of aspiration on thick liquid, pureed 3/3 trials with high aspiration signs. I discussed the findings and recommendation with RN. Interpretation: 1. oropharyngeal dysphagia with s.s of aspiration Plan: 1. Continue NPO 2. NG tube placement GROUNDS/MAINTENANCE SPECIALIST will follow for ongoing assessment. Galina Terrell
--- NOTE | 2020-07-06 18:53 | NUR ---
NURSE NOTES: Received report from FLORES Mandel. Pt is seen lying in bed in semi-allen's position. Pt is awake open eyes spontaneously but pt is aphasic. {t mumbles. Pt is in o2 4L via NC o2 sat- 97%%. No signs of respiratory distress. No pain noted at this time. Pt with ziegler cath draiining yellow urine and intact and draining well. RFA g22 is intact and patent and LFA g20 still patent and intact. Pt has no isolation precaution for covid as per the Dr. pt positive result from residual virus. Pt is symptomatic and cough intermittently. No signs of labored breathing. No fever noted. Bed in lowest position. Call light within reach. Continue to plan of care.
--- NOTE | 2020-07-06 18:54 | Internal Med Progress Note ---
Subjective Date of Service: Jul 06, 2020 Physician Name YaneliDano Attending Physician Ahsan Hodges MD Current Medications Medications (Trade) Dose Ordered Sig/Ankush Route PRN Reason Start Time Stop Time Status Last Admin Dose Admin Acetaminophen (Tylenol) 650 mg Q4H PRN ORAL Temp >100.5 07/03/20 20:30 08/02/20 20:29 Albuterol/ Ipratropium (Albuterol/ Ipratropium) 3 ml Q4H PRN HHN Shortness of Breath 07/03/20 20:30 07/08/20 20:29 Barium Sulfate (Varibar Honey) 250 ml NOW PRN MC RAD 07/03/20 21:00 07/06/20 20:45 Barium Sulfate (Varibar [place]) 240 ml NOW PRN MC RAD 07/03/20 21:00 07/06/20 20:45 Barium Sulfate (Varibar Pudding) 230 ml NOW PRN MC RAD 07/03/20 21:00 07/06/20 20:45 Barium Sulfate (Varibar Thin Liquid powder) 148 gm NOW PRN MC RAD 07/03/20 21:00 07/06/20 20:45 Dextrose 1,000 ml @ 50 mls/hr Q20H IV 07/06/20 12:38 08/05/20 12:37 07/06/20 13:12 Dextrose (Dextrose 50%) 50 ml Q30M PRN IV Hypoglycemia 07/03/20 22:45 10/01/20 22:44 Heparin Sodium (Porcine) (Heparin 5000 units/ml) 5,000 units EVERY 12 HOURS SUBQ 07/03/20 21:00 08/17/20 20:59 07/06/20 08:16 Insulin Aspart (NovoLOG) BEFORE MEALS AND HS SUBQ 07/04/20 06:30 10/02/20 06:29 07/04/20 06:23 Nitroglycerin (Ntg) 0.4 mg Q5M PRN SL Prn Chest Pain 07/03/20 20:30 08/02/20 20:29 Ondansetron HCl (Zofran) 4 mg Q6H PRN IVP Nausea & Vomiting 07/03/20 20:30 08/02/20 20:29 Polyethylene Glycol (Miralax) 17 gm DAILYPRN PRN ORAL Constipation 07/03/20 20:30 08/02/20 20:29 Promethazine HCl/ Codeine (Phenergan with Codeine) 5 ml Q4H PRN ORAL For Cough 07/03/20 20:30 08/02/20 20:29 Tamsulosin HCl (Flomax) 0.4 mg DAILY ORAL 07/04/20 09:00 08/03/20 08:59 07/05/20 08:38 Temazepam (Restoril) 15 mg HSPRN PRN ORAL Insomnia 07/03/20 20:30 07/10/20 20:29 Vancomycin HCl (Vanco pharmacy to dose) 1 ea DAILY PRN MISC Per rx protocol 07/03/20 20:30 08/02/20 20:29 Vancomycin HCl 750 mg/Sodium Chloride 275 ml @ 183.333 mls/hr Q24H IVPB 07/06/20 09:00 07/11/20 08:59 07/06/20 09:08 Allergies: Coded Allergies: No Known Allergies (Unverified , 04/30/12) ROS Limited/Unobtainable: Yes Subjective 79 YO M admitted with shortness of breath. Now pneumonia and COVID positive. Cover for Int med-Dr Hodges. Step down unit Objective Last Vital Signs Date Time Temp Pulse Resp B/P (MAP) Pulse Ox O2 Delivery O2 Flow Rate FiO2 07/06/20 16:00 97.9 74 18 111/61 (78) 100 07/06/20 16:00 4.0 07/06/20 16:00 Nasal Cannula Laboratory Tests Test 07/06/20 07:00 07/06/20 11:34 07/06/20 15:56 White Blood Count 7.6 K/UL (4.8-10.8) Red Blood Count 4.27 M/UL (4.70-6.10) L Hemoglobin 12.7 G/DL (14.2-18.0) L Hematocrit 38.2 % (42.0-52.0) L Mean Corpuscular Volume 90 FL (80-99) Mean Corpuscular Hemoglobin 29.8 PG (27.0-31.0) Mean Corpuscular Hemoglobin Concent 33.3 G/DL (32.0-36.0) Red Cell Distribution Width 13.7 % (11.6-14.8) Platelet Count 192 K/UL (150-450) Mean Platelet Volume 10.2 FL (6.5-10.1) H Neutrophils (%) (Auto) 69.0 % (45.0-75.0) Lymphocytes (%) (Auto) 20.9 % (20.0-45.0) Monocytes (%) (Auto) 7.9 % (1.0-10.0) Eosinophils (%) (Auto) 1.4 % (0.0-3.0) Basophils (%) (Auto) 0.7 % (0.0-2.0) Sodium Level 142 MMOL/L (136-145) Potassium Level 3.3 MMOL/L (3.5-5.1) L Chloride Level 108 MMOL/L (98-107) H Carbon Dioxide Level 25 MMOL/L (21-32) Anion Gap 9 mmol/L (5-15) Blood Urea Nitrogen 12 mg/dL (7-18) Creatinine 1.3 MG/DL (0.55-1.30) Estimat Glomerular Filtration Rate 53.5 mL/min (>60) Glucose Level 129 MG/DL (74-106) H Uric Acid 7.9 MG/DL (2.6-7.2) H Calcium Level 8.1 MG/DL (8.5-10.1) L Phosphorus Level 2.3 MG/DL (2.5-4.9) L Magnesium Level 2.2 MG/DL (1.8-2.4) Total Bilirubin 0.6 MG/DL (0.2-1.0) Aspartate Amino Transf (AST/SGOT) 26 U/L (15-37) Alanine Aminotransferase (ALT/SGPT) 10 U/L (12-78) L Alkaline Phosphatase 142 U/L (46-116) H Troponin I 0.014 ng/mL (0.000-0.056) Total Protein 6.0 G/DL (6.4-8.2) L Albumin 1.8 G/DL (3.4-5.0) L Globulin 4.2 g/dL Albumin/Globulin Ratio 0.4 (1.0-2.7) L Vancomycin Level Trough 14.7 ug/mL (5.0-12.0) H POC Whole Blood Glucose Pending Pending Microbiology Date/Time Source Procedure Growth Status 07/06/20 12:39 Nasopharynx SARS-CoV-2 RdRp Gene Assay - Final Complete 07/04/20 04:00 Sputum Gram Stain - Final Complete 07/04/20 04:00 Sputum Culture - Final Staphylococcus Aureus - Mrsa Usual Respiratory Yana Complete Intake and Output 07/05/20 07/06/20 19:00 07:00 Intake Total 75 ml 825 ml Output Total 370 ml 700 ml Balance -295 ml 125 ml IV Total 75 ml 825 ml Output Urine Total 370 ml 700 ml Objective PHYSICAL EXAMINATION: GENERAL: The patient awake with deep stimuli, open his eyes, however, cannot follow commands. The patient is on a Ventimask at this time, chronically ill-appearing. HEAD AND NECK: Pupils are equal and reactive to light. Anicteric. NECK: Supple. No JVD. LUNGS: Good air entry. No wheezing or rhonchi, however the patient has a coarse breath sounds. Decreased air in bases. HEART: S1, S2. Regular rhythm. Distant heart sounds. No murmur or gallop. ABDOMEN: Soft, nondistended, nontender. Positive bowel sounds. EXTREMITIES: No cyanosis, clubbing, or edema. NEUROLOGIC: Very limited secondary to the patient's status, cannot follow commands. Opens his eyes with deep stimuli and moving extremities spontaneously. Assessment/Plan Assessment/Plan ASSESSMENT: 1. Acute hypoxemic respiratory failure, most likely secondary to pneumonia and sepsis. 2. Sepsis secondary to urinary tract infection and pneumonia. 3. pneumonia=MRSA 4. Acute kidney injury on chronic renal insufficiency. 5. Dehydration. 6. History of chronic congestive heart failure. 7. Diabetes type 2. 8. Dyslipidemia. 9. Hypertension. 10. Alzheimer's disease. 11. COVID 19 POSITIVE PLAN: 1. Admit the patient to step-down. 2. Dr. Carreno,=Pulmonary Critical Care 3. Dr. Cho = Inf Dis. 4. IV= D5W due to the hypernatremia and dehydration. 5. antibiotics = vancomycin and cefepime 6. Code status is full code. 7. DVT prophylaxis is heparin subcutaneous. Dano Groves MD Jul 06, 2020 18:54
--- NOTE | 2020-07-06 19:15 | NUR ---
NURSE HAND-OFF REPORT: Important Events on Shift: Failed ST evaluation_ Dr. Carreno notified, KCL 10mEq x2 total 20mEq replacement per Dr. Connors's order, COVID positive (07/06/2020) but no COVID isolation per Dr. Cho's order (due to history of COVID positive on 05/2020 and treated with Remdesivir), Otherwise stable. Patient Status: Stable, Full code Diet: NPO Pending Orders: N Pending Results/Labs: N Pending MD notification: N Latest Vital Signs: Temperature 97.9 , Pulse 68 , B/P 111 /61 , Respiratory Rate 18 , O2 SAT 100 , Nasal Cannula, O2 Flow Rate 4.0 . Vital Sign Comment: Stable EKG Rhythm: Sinus Rhythm Rhythm change?: N MD Notified?: Y -Left Message for Dr. Hodges, No cardio on the case. MD Response: Latest Gonzalez Fall Score: 50 Fall Risk: High Risk Safety Measures: Call light Within Reach, Bed Alarm Zone 1, Side Rails Side Rails x3, Bed position Low and Locked. Fall Precautions: Yellow Socks Yellow Gown Door Sign Patient Fall Education Report given to FLORES Alcocer. The patient is stable at this time. Endorsed plan of care.
[2020-07-06 20:00] VITALS: BP 91/57
--- NOTE | 2020-07-06 23:52 | NUR ---
NURSE NOTES: Seen pt in bed in semi-allen's position. No signs of respiratory distress. Pt breathing even and unlabored. No any pain noted at this time. VS is within normal limits. O2 sat- 94% in 4L NC. Bed in lowest position. Call light within reach. Continue to plan of care.
[2020-07-07] VITALS: BP 122/58
[2020-07-07 04:00] VITALS: BP 118/51
[2020-07-07 05:24] LABS: BASOPHILS % (AUTO) 0.7 % (0.0-2.0); HEMATOCRIT 39.6 % (42.0-52.0); HEMOGLOBIN 12.9 G/DL (14.2-18.0); LYMPHOCYTES % (AUTO) 20.3 % (20.0-45.0); MEAN CORPUSCULAR VOLUME 90 FL (80-99); MONOCYTES % (AUTO) 8.1 % (1.0-10.0); NEUTROPHILS % (AUTO) 69.9 % (45.0-75.0); PLATELET COUNT 179 K/UL (150-450); RED BLOOD COUNT 4.38 M/UL (4.70-6.10); RED CELL DISTRIBUTION WIDTH 13.7 % (11.6-14.8); WHITE BLOOD COUNT 9.4 K/UL (4.8-10.8)
[2020-07-07 05:38] LABS: ALBUMIN 1.7 G/DL (3.4-5.0); ALBUMIN/GLOBULIN RATIO 0.4 (1.0-2.7); BILIRUBIN,TOTAL 0.5 MG/DL (0.2-1.0); CALCIUM 7.9 MG/DL (8.5-10.1); CREATININE 1.2 MG/DL (0.55-1.30); PHOSPHORUS 2.1 MG/DL (2.5-4.9); POTASSIUM 3.2 MMOL/L (3.5-5.1)
--- NOTE | 2020-07-07 06:00 | NUR ---
NURSE NOTES: BS was checked. VS WNL. No signs of respiratory distress noted. No pain noted at this time. Repositioned pt. Continue to plan of care.
[2020-07-07] MEDS: NovoLOG Insulin Flexpen SUBQ SCH ×4 (06:17→21:00)
--- NOTE | 2020-07-07 07:10 | NUR ---
NURSE HAND-OFF REPORT: Important Events on Shift: Pt on NC at 4L- o2 sat 93-98%. Covid positive- still coughing, PT on NPO Patient Status: Stable Diet: NPO Pending Orders: None Pending Results/Labs: Sputum collection Pending MD notification: None Latest Vital Signs: Temperature 97.9 , Pulse 64 , B/P 118 /51 , Respiratory Rate 20 , O2 SAT 95 , Nasal Cannula, O2 Flow Rate 4.0 . Vital Sign Comment: WNL EKG Rhythm: Sinus Rhythm Rhythm change?: N MD Notified?: Y -Left Message for Dr. Hodges, No cardio on the case. MD Response: Latest Gonzalez Fall Score: 50 Fall Risk: High Risk Safety Measures: Call light Within Reach, Bed Alarm Zone 1, Side Rails Side Rails x3, Bed position Low and Locked. Fall Precautions: Yellow Socks Yellow Gown Door Sign Patient Fall Education Report given to [FLORES Traore].
--- NOTE | 2020-07-07 07:36 | NUR ---
NURSE NOTES: Received report from FLORES Alcocer. Patient in bed resting, no active s/s cardiac, respiratory distress noticed at this time. Patient Open eyes, does not follow command, eyes tracking. Patient on NC 4L tolerating O2 sat 98% at this time. Patient on Wiley Catheter, draining well to gravity at this time. IV on right FA 22g, left hand 20G, asymptomatic, patent, intact. IVF D5W @ 50ml/h. Endorsed NPO at this time, will follow up with MD. Bed in lowest position, side rails upx3, call light within reach, bed alarm on, Will continue to monitor.
[2020-07-07 08:00] VITALS: BP 100/58
[2020-07-07] MEDS: Tamsulosin 0.4mg cap ORAL SCH (08:55)
[2020-07-07] MEDS: Vancomycin 750mg/NS 275ml IVPB SCH ×2 (09:11)
[2020-07-07] MEDS: Potassium Phosphate 15mm/250ml 250 ML IVPB SCH ×2 (09:12→14:31)
--- NOTE | 2020-07-07 09:17 | NUR ---
RADIOLOGY DEPT., CHEST X-RAY DONE.-P.DYE
[2020-07-07] MEDS: Heparin 5000 units/ml inj SUBQ SCH ×2 (09:33→21:58)
--- NOTE | 2020-07-07 10:14 | Nephrology Progress Note ---
Assessment/Plan Problem List: (1) Dehydration (2) MELANIE (acute kidney injury) (3) Renal failure (ARF), acute on chronic (4) Hypoxia (5) Acute encephalopathy (6) Electrolyte imbalance Assessment 79-year-old male is admitted with acute hypoxic respiratory failure most likely secondary to pneumonia and sepsis, UTI. Acute on chronic renal failure Dehydration Electrolyte imbalances, hypernatremia Hypoalbuminemia Diabetes type 2 History of congestive heart failure Hypertension Hyperlipemia Alzheimer's Previous COVID-19 infection in May 2020 Plan July 07: Labs reviewed. Low potassium and low phosphorus replaced. Continue per consultants. Remains stable from renal standpoint of view. July 06: Patient remains n.p.o. IV fluid down to 50 cc an hour. Potassium supplement intravenously ordered. Continue per consultants. Previously: Patient is n.p.o., will continue on IV fluid of D5W 75 cc an hour We will monitor electrolytes and renal parameters Avoid nephrotoxic's Start p.o. when he clears by speech therapist, meanwhile aspiration precautions Keep the blood pressure and blood sugar in check Per orders Subjective ROS Limited/Unobtainable: No Constitutional: Reports: malaise, weakness Objective Objective Last 24 Hour Vital Signs Date Time Temp Pulse Resp B/P (MAP) Pulse Ox O2 Delivery O2 Flow Rate FiO2 07/07/20 08:00 Nasal Cannula 4.0 07/07/20 08:00 98.0 64 20 100/58 (72) 98 64 07/07/20 08:00 4.0 07/07/20 07:50 64 07/07/20 04:00 97.9 62 20 118/51 (73) 95 64 07/07/20 04:00 Nasal Cannula 4.0 07/07/20 04:00 4.0 07/07/20 04:00 70 07/07/20 00:00 66 07/07/20 00:00 97.7 84 21 122/58 (79) 94 80 07/07/20 00:00 Nasal Cannula 4.0 07/07/20 00:00 4.0 07/06/20 20:00 97.5 62 16 91/57 (68) 97 64 07/06/20 19:58 71 07/06/20 19:58 4.0 07/06/20 19:58 Nasal Cannula 4.0 07/06/20 19:40 97 Nasal Cannula 4.0 36 07/06/20 16:00 97.9 74 18 111/61 (78) 100 07/06/20 16:00 4.0 07/06/20 16:00 Nasal Cannula 4.0 07/06/20 16:00 68 07/06/20 12:00 4.0 07/06/20 12:00 65 07/06/20 12:00 97.9 71 18 112/56 (74) 99 07/06/20 12:00 Nasal Cannula 4.0 Intake and Output 07/06/20 07/07/20 19:00 07:00 Intake Total 500 ml Output Total 1100 ml 450 ml Balance -1100 ml 50 ml IV Total 500 ml Output Urine Total 1100 ml 450 ml # Bowel Movements 2 Current Medications Medications (Trade) Dose Ordered Sig/Ankush Route PRN Reason Start Time Stop Time Status Last Admin Dose Admin Acetaminophen (Tylenol) 650 mg Q4H PRN ORAL Temp >100.5 07/03/20 20:30 08/02/20 20:29 Albuterol/ Ipratropium (Albuterol/ Ipratropium) 3 ml Q4H PRN HHN Shortness of Breath 07/03/20 20:30 07/08/20 20:29 Dextrose 1,000 ml @ 50 mls/hr Q20H IV 07/06/20 12:38 08/05/20 12:37 07/06/20 20:08 Dextrose (Dextrose 50%) 50 ml Q30M PRN IV Hypoglycemia 07/03/20 22:45 10/01/20 22:44 Heparin Sodium (Porcine) (Heparin 5000 units/ml) 5,000 units EVERY 12 HOURS SUBQ 07/03/20 21:00 08/17/20 20:59 07/07/20 09:33 Insulin Aspart (NovoLOG) BEFORE MEALS AND HS SUBQ 07/04/20 06:30 10/02/20 06:29 07/04/20 06:23 Nitroglycerin (Ntg) 0.4 mg Q5M PRN SL Prn Chest Pain 07/03/20 20:30 08/02/20 20:29 Ondansetron HCl (Zofran) 4 mg Q6H PRN IVP Nausea & Vomiting 07/03/20 20:30 08/02/20 20:29 Polyethylene Glycol (Miralax) 17 gm DAILYPRN PRN ORAL Constipation 07/03/20 20:30 08/02/20 20:29 Potassium Phosphate 250 ml @ 62.5 mls/hr Q4H IVPB 07/07/20 09:30 07/07/20 17:29 07/07/20 09:12 Promethazine HCl/ Codeine (Phenergan with Codeine) 5 ml Q4H PRN ORAL For Cough 07/03/20 20:30 08/02/20 20:29 Tamsulosin HCl (Flomax) 0.4 mg DAILY ORAL 07/04/20 09:00 08/03/20 08:59 07/05/20 08:38 Temazepam (Restoril) 15 mg HSPRN PRN ORAL Insomnia 07/03/20 20:30 07/10/20 20:29 Vancomycin HCl (Vanco pharmacy to dose) 1 ea DAILY PRN MISC Per rx protocol 07/03/20 20:30 08/02/20 20:29 Vancomycin HCl 750 mg/Sodium Chloride 275 ml @ 183.333 mls/hr Q24H IVPB 07/06/20 09:00 07/11/20 08:59 07/07/20 09:11 Laboratory Tests 07/06/20 11:34: POC Whole Blood Glucose [Pending] 07/06/20 15:56: POC Whole Blood Glucose [Pending] 07/07/20 03:10: White Blood Count 9.4, Red Blood Count 4.38L, Hemoglobin 12.9L, Hematocrit 39.6L , Mean Corpuscular Volume 90, Mean Corpuscular Hemoglobin 29.5, Mean Corpuscular Hemoglobin Concent 32.6, Red Cell Distribution Width 13.7, Platelet Count 179, Mean Platelet Volume 10.0, Neutrophils (%) (Auto) 69.9, Lymphocytes (%) (Auto) 20.3, Monocytes (%) (Auto) 8.1, Eosinophils (%) (Auto) 1.0, Basophils (%) (Auto) 0.7, Erythrocyte Sedimentation Rate 96H, Sodium Level 144, Potassium Level 3.2L , Chloride Level 110H, Carbon Dioxide Level 23, Anion Gap 11, Blood Urea Nitrogen 8, Creatinine 1.2, Estimat Glomerular Filtration Rate 58.7, Glucose Level 96, Calcium Level 7.9L, Phosphorus Level 2.1L, Magnesium Level 2.1, Total Bilirubin 0.5, Aspartate Amino Transf (AST/SGOT) 31, Alanine Aminotransferase (ALT/SGPT) 14, Alkaline Phosphatase 193H, C-Reactive Protein, Quantitative 9.5H, Total Protein 5.9L, Albumin 1.7L, Globulin 4.2, Albumin/Globulin Ratio 0.4L 07/07/20 06:09: POC Whole Blood Glucose 106 Height (Feet): 5 Height (Inches): 4.00 Weight (Pounds): 130 General Appearance: no apparent distress Cardiovascular: normal rate Respiratory/Chest: decreased breath sounds Abdomen: distended Tino Connors MD Jul 07, 2020 10:14
--- NOTE | 2020-07-07 11:08 | NUR ---
NURSE NOTES: Dr. Cho made aware of VRE rectum positive, no new order received at this time, Will continue to monitor.
[2020-07-07 12:00] VITALS: BP 102/63
--- NOTE | 2020-07-07 12:02 | Pulmonolgy Critical Care Note ---
Critical Care - Asmt/Plan Problems: (1) 2019 novel coronavirus disease (COVID-19) (2) Multifocal pneumonia (3) Acute encephalopathy (4) Severe sepsis (5) Alzheimer's dementia (6) HTN (hypertension) (7) History of CVA (cerebrovascular accident) (8) BPH (benign prostatic hyperplasia) Respiratory: monitor respiratory rate, adjust FIO2, CXR Cardiac: continue to monitor HR/BP Renal: F/U I&O, keep IV fluid Infectious Disease: check cultures, continue antibiotics Gastrointestinal: start feedings, other - failed swallow study Endocrine: monitor blood sugar, continue sliding scale insulin Hematologic: transfuse if hgb<8.5 Neurologic: PRN Ativan, PRN Morphine, keep patient comfortable Affect: PRN ativan Prophylaxis: Protonix Notes 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: buggyman Discussed with: nurses, consultants, 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 - Objective Last 24 Hour Vital Signs Date Time Temp Pulse Resp B/P (MAP) Pulse Ox O2 Delivery O2 Flow Rate FiO2 07/07/20 08:00 Nasal Cannula 4.0 07/07/20 08:00 98.0 64 20 100/58 (72) 98 64 07/07/20 08:00 4.0 07/07/20 07:50 64 07/07/20 04:00 97.9 62 20 118/51 (73) 95 64 07/07/20 04:00 Nasal Cannula 4.0 07/07/20 04:00 4.0 07/07/20 04:00 70 07/07/20 00:00 66 07/07/20 00:00 97.7 84 21 122/58 (79) 94 80 07/07/20 00:00 Nasal Cannula 4.0 07/07/20 00:00 4.0 07/06/20 20:00 97.5 62 16 91/57 (68) 97 64 07/06/20 19:58 71 07/06/20 19:58 4.0 07/06/20 19:58 Nasal Cannula 4.0 07/06/20 19:40 97 Nasal Cannula 4.0 36 07/06/20 16:00 97.9 74 18 111/61 (78) 100 07/06/20 16:00 4.0 07/06/20 16:00 Nasal Cannula 4.0 07/06/20 16:00 68 Status: obtunded Condition: critical HEENT: atraumatic Neck: full ROM Lungs: rales, rhonchi Heart: HR/BP stable, HR/BP unstable, regular Abdomen: soft, non-tender, active bowel sounds Extremities: no C/C/E Micro: Microbiology Date/Time Source Procedure Growth Status 07/06/20 12:39 Nasopharynx SARS-CoV-2 RdRp Gene Assay - Final Complete 07/04/20 18:00 Rectum VRE Culture - Final Enterococcus Faecium - Vre Complete 07/04/20 18:00 Rectal Mucosa - Final NO CARBAPENEM-RESISTANT ENTEROBACTERI... Complete Accucheck: 110 Critical Care - Subjective ROS Limited/Unobtainable: Yes Condition: critical EKG Rhythm: Sinus Rhythm FI02: 36 Sputum Amount: Small I&O: Intake and Output 07/06/20 07/07/20 19:00 07:00 Intake Total 550 ml Output Total 1100 ml 450 ml Balance -1100 ml 100 ml IV Total 550 ml Output Urine Total 1100 ml 450 ml # Bowel Movements 2 CXR: no changes Labs: Laboratory Tests Test 07/06/20 15:56 07/07/20 03:10 07/07/20 06:09 07/07/20 11:13 POC Whole Blood Glucose Pending 106 MG/DL (74-106) Pending White Blood Count 9.4 K/UL (4.8-10.8) Red Blood Count 4.38 M/UL (4.70-6.10) L Hemoglobin 12.9 G/DL (14.2-18.0) L Hematocrit 39.6 % (42.0-52.0) L Mean Corpuscular Volume 90 FL (80-99) Mean Corpuscular Hemoglobin 29.5 PG (27.0-31.0) Mean Corpuscular Hemoglobin Concent 32.6 G/DL (32.0-36.0) Red Cell Distribution Width 13.7 % (11.6-14.8) Platelet Count 179 K/UL (150-450) Mean Platelet Volume 10.0 FL (6.5-10.1) Neutrophils (%) (Auto) 69.9 % (45.0-75.0) Lymphocytes (%) (Auto) 20.3 % (20.0-45.0) Monocytes (%) (Auto) 8.1 % (1.0-10.0) Eosinophils (%) (Auto) 1.0 % (0.0-3.0) Basophils (%) (Auto) 0.7 % (0.0-2.0) Erythrocyte Sedimentation Rate 96 MM/HR (0-20) H Sodium Level 144 MMOL/L (136-145) Potassium Level 3.2 MMOL/L (3.5-5.1) L Chloride Level 110 MMOL/L (98-107) H Carbon Dioxide Level 23 MMOL/L (21-32) Anion Gap 11 mmol/L (5-15) Blood Urea Nitrogen 8 mg/dL (7-18) Creatinine 1.2 MG/DL (0.55-1.30) Estimat Glomerular Filtration Rate 58.7 mL/min (>60) Glucose Level 96 MG/DL (74-106) Calcium Level 7.9 MG/DL (8.5-10.1) L Phosphorus Level 2.1 MG/DL (2.5-4.9) L Magnesium Level 2.1 MG/DL (1.8-2.4) Total Bilirubin 0.5 MG/DL (0.2-1.0) Aspartate Amino Transf (AST/SGOT) 31 U/L (15-37) Alanine Aminotransferase (ALT/SGPT) 14 U/L (12-78) Alkaline Phosphatase 193 U/L (46-116) H C-Reactive Protein, Quantitative 9.5 mg/dL (0.00-0.90) H Total Protein 5.9 G/DL (6.4-8.2) L Albumin 1.7 G/DL (3.4-5.0) L Globulin 4.2 g/dL Albumin/Globulin Ratio 0.4 (1.0-2.7) L Kya Carreno MD Jul 07, 2020 12:02
--- NOTE | 2020-07-07 12:15 | Cardiac Electrophysiology PN ---
Assessment/Plan Assessment/Plan 1. Accelerated junctional rhythm. Patient is not bradycardic. Ruled out for GA Echocardiogram showed ejection fraction of 55%. 2. Sepsis, on broad-spectrum IV antibiotic. 3. Respiratory failure, on antibiotic. 4. Dehydration. 5. Acute renal failure. 6. Electrolyte imbalance. 7. History of congestive heart failure, but echocardiogram showed normal left ventricular systolic function. 8. History of previous COVID infection in May 2020 and Active Covid now again in isolation 9. Dementia. DW RN Subjective Subjective In SR in NAD. Nonverbal. Now in Covid isolation. Objective Last 24 Hour Vital Signs Date Time Temp Pulse Resp B/P (MAP) Pulse Ox O2 Delivery O2 Flow Rate FiO2 07/07/20 11:37 62 07/07/20 08:00 Nasal Cannula 4.0 07/07/20 08:00 98.0 64 20 100/58 (72) 98 64 07/07/20 08:00 4.0 07/07/20 07:50 64 07/07/20 04:00 97.9 62 20 118/51 (73) 95 64 07/07/20 04:00 Nasal Cannula 4.0 07/07/20 04:00 4.0 07/07/20 04:00 70 07/07/20 00:00 66 07/07/20 00:00 97.7 84 21 122/58 (79) 94 80 07/07/20 00:00 Nasal Cannula 4.0 07/07/20 00:00 4.0 07/06/20 20:00 97.5 62 16 91/57 (68) 97 64 07/06/20 19:58 71 07/06/20 19:58 4.0 07/06/20 19:58 Nasal Cannula 4.0 07/06/20 19:40 97 Nasal Cannula 4.0 36 07/06/20 16:00 97.9 74 18 111/61 (78) 100 07/06/20 16:00 4.0 07/06/20 16:00 Nasal Cannula 4.0 07/06/20 16:00 68 Intake and Output 07/06/20 07/07/20 19:00 07:00 Intake Total 550 ml Output Total 1100 ml 450 ml Balance -1100 ml 100 ml IV Total 550 ml Output Urine Total 1100 ml 450 ml # Bowel Movements 2 Laboratory Tests Test 07/06/20 15:56 07/07/20 03:10 07/07/20 06:09 07/07/20 11:13 POC Whole Blood Glucose Pending 106 MG/DL (74-106) Pending White Blood Count 9.4 K/UL (4.8-10.8) Red Blood Count 4.38 M/UL (4.70-6.10) L Hemoglobin 12.9 G/DL (14.2-18.0) L Hematocrit 39.6 % (42.0-52.0) L Mean Corpuscular Volume 90 FL (80-99) Mean Corpuscular Hemoglobin 29.5 PG (27.0-31.0) Mean Corpuscular Hemoglobin Concent 32.6 G/DL (32.0-36.0) Red Cell Distribution Width 13.7 % (11.6-14.8) Platelet Count 179 K/UL (150-450) Mean Platelet Volume 10.0 FL (6.5-10.1) Neutrophils (%) (Auto) 69.9 % (45.0-75.0) Lymphocytes (%) (Auto) 20.3 % (20.0-45.0) Monocytes (%) (Auto) 8.1 % (1.0-10.0) Eosinophils (%) (Auto) 1.0 % (0.0-3.0) Basophils (%) (Auto) 0.7 % (0.0-2.0) Erythrocyte Sedimentation Rate 96 MM/HR (0-20) H Sodium Level 144 MMOL/L (136-145) Potassium Level 3.2 MMOL/L (3.5-5.1) L Chloride Level 110 MMOL/L (98-107) H Carbon Dioxide Level 23 MMOL/L (21-32) Anion Gap 11 mmol/L (5-15) Blood Urea Nitrogen 8 mg/dL (7-18) Creatinine 1.2 MG/DL (0.55-1.30) Estimat Glomerular Filtration Rate 58.7 mL/min (>60) Glucose Level 96 MG/DL (74-106) Calcium Level 7.9 MG/DL (8.5-10.1) L Phosphorus Level 2.1 MG/DL (2.5-4.9) L Magnesium Level 2.1 MG/DL (1.8-2.4) Total Bilirubin 0.5 MG/DL (0.2-1.0) Aspartate Amino Transf (AST/SGOT) 31 U/L (15-37) Alanine Aminotransferase (ALT/SGPT) 14 U/L (12-78) Alkaline Phosphatase 193 U/L (46-116) H C-Reactive Protein, Quantitative 9.5 mg/dL (0.00-0.90) H Total Protein 5.9 G/DL (6.4-8.2) L Albumin 1.7 G/DL (3.4-5.0) L Globulin 4.2 g/dL Albumin/Globulin Ratio 0.4 (1.0-2.7) L Microbiology Date/Time Source Procedure Growth Status 07/06/20 12:39 Nasopharynx SARS-CoV-2 RdRp Gene Assay - Final Complete 07/04/20 18:00 Rectum VRE Culture - Final Enterococcus Faecium - Vre Complete 07/04/20 18:00 Rectal Mucosa - Final NO CARBAPENEM-RESISTANT ENTEROBACTERI... Complete Objective HEAD AND NECK: No JVD. LUNGS: Coarse rhonchi. CARDIOVASCULAR: Irregular S1 and S2 with no gallop. ABDOMEN: Soft. EXTREMITIES: No pitting edema. Klever Matt MD Jul 07, 2020 12:15
--- NOTE | 2020-07-07 12:55 | NUR ---
RD ASSESSMENT & RECOMMENDATIONS SEE CARE ACTIVITY FOR COMPLETE ASSESSMENT DAILY ESTIMATED NEEDS: Needs based on DM, pulmonary, cardiac 59.5kg 25-30 kcals/kg 3431-3659 total kcals 1-1.5 g protein/kg 60-89 g total protein 25-30 mL/kg 8566-1524 total fluid mLs NUTRITION DIAGNOSIS: * Swallowing difficulty R/T dysphagia as evidenced by BREAKFAST AND ROOM ATTENDANT eval, recs for NGT feeds. CURRENT DIET: NPO ENTERAL NUTRITION RECOMMENDATIONS: Glucerna 1.2 goal of 60ml/hr x24 hrs to provide 1440ml, 1728 kcal, 86g pro, 1159ml free H2O - Obtain GI access, initiate Glucerna 1.2 @low rate 20ml/hr for 6 hrs. - Advance 10ml/hr q4-6 hrs to goal. - Flush per MD/ HOB over 30 degrees. ADDITIONAL RECOMMENDATIONS: * Calibrated bedscale wt for accurate CBW * TF recs as above if part of POC * Replete lytes as needed * Pt is NPO from adm, rec non oral feeds to meet est kcal and pro needs . . .
--- NOTE | 2020-07-07 13:10 | NUR ---
ENDORSEMENT CLERKBODY PAINTER SI: HPOXIA/PNA BP 100/58 T 98.0 HR 64 RR 20 SPO2 98% ON 4L NC ESR 96 K+3.2 PHOS 2.1 IS: K-PHOS IV VANCO IV D5W @ 50CC/HR TIFFANIE STATUS Addendum: 07/08/20 at 0722 by Nella Henriquez RN SI: COVID+
--- NOTE | 2020-07-07 13:20 | NUR ---
NURSE NOTES: NGT inserted, 55cm, patient pulled out x2, patient confused, does not understand, unable to educate.
--- NOTE | 2020-07-07 13:27 | Diagnostic Imaging Report ---
. Indication: Dyspnea Technique: One view of the chest Comparison: 07/06/2020 Findings: Left mid and lower lung infiltrate persists. Patchy right infrahilar infiltrate persists. The pleural spaces are clear. The heart size is normal. There is a right shoulder prosthesis. Findings are unchanged Impression: Unchanged bilateral infiltrates
--- NOTE | 2020-07-07 13:36 | NUR ---
NURSE NOTES: Dr. Carreno made aware patient pulled out NGT, per MD can initiate non-violent restraint. Order noted, entered carried out.
--- NOTE | 2020-07-07 13:49 | Infectious Diseases Prog Note ---
Assessment/Plan 79yo M with: Fever at SNF, 100.2 max here; imporving Leukocytosis to 12- SP Acute hypoxic resp failure, on NRB mask> 4l NC Pneumonia- hx of COVID19 PNA 05/20/2007/03 BCx NTD UA 15-20 WBC, UCx Neg 07/03 COVID rapid neg; 07/06 rapid COVID PCR + (from prior infection)- not new infection Flu A/B neg CXR: L pna Resp cx MRSA CKD, Cr 1.7 [facility] resident (ed [facility]) Non-verbal VRE and MRSA colonized Plan: Cont vanco #5/7-10 for MRSA PNA -07/06 SP Cefepime #4 -07/04 SP Flagyl # f/u cx Monitor CBC/CMP Monitor resp status Monitor temp curve and hemodynamics off COVID isolation- positive covid test represents residual virus from infection on 05/2020 D/w RN and pharmacy staff. Thank you for this consult. [facility] will continue to follow. Subjective Allergies: Coded Allergies: No Known Allergies (Unverified , 04/30/12) afebrile >72hrs cr improving at 4l NC no leukocytosis Objective Last 24 Hour Vital Signs Date Time Temp Pulse Resp B/P (MAP) Pulse Ox O2 Delivery O2 Flow Rate FiO2 07/07/20 11:37 62 07/07/20 08:00 Nasal Cannula 4.0 07/07/20 08:00 98.0 64 20 100/58 (72) 98 64 07/07/20 08:00 4.0 07/07/20 07:50 64 07/07/20 04:00 97.9 62 20 118/51 (73) 95 64 07/07/20 04:00 Nasal Cannula 4.0 07/07/20 04:00 4.0 07/07/20 04:00 70 07/07/20 00:00 66 07/07/20 00:00 97.7 84 21 122/58 (79) 94 80 07/07/20 00:00 Nasal Cannula 4.0 07/07/20 00:00 4.0 07/06/20 20:00 97.5 62 16 91/57 (68) 97 64 07/06/20 19:58 71 07/06/20 19:58 4.0 07/06/20 19:58 Nasal Cannula 4.0 07/06/20 19:40 97 Nasal Cannula 4.0 36 07/06/20 16:00 97.9 74 18 111/61 (78) 100 07/06/20 16:00 4.0 07/06/20 16:00 Nasal Cannula 4.0 07/06/20 16:00 68 Height (Feet): 5 Height (Inches): 4.00 Weight (Pounds): 130 Gen: NAD HEENT: NCAT CV: RRR Pulm: Rhonchi anteriorly, lots of oral secretions Abd: Soft, NTND Ext: No c/c/e Neuro: Awake Microbiology Date/Time Source Procedure Growth Status 07/06/20 12:39 Nasopharynx SARS-CoV-2 RdRp Gene Assay - Final Complete 07/04/20 18:00 Rectum VRE Culture - Final Enterococcus Faecium - Vre Complete 07/04/20 18:00 Rectal Mucosa - Final NO CARBAPENEM-RESISTANT ENTEROBACTERI... Complete 07/04/20 18:00 Nasal Nares MRSA Culture - Final Staphylococcus Aureus - Mrsa Complete Laboratory Tests Test 07/06/20 15:56 07/07/20 03:10 07/07/20 06:09 07/07/20 11:13 POC Whole Blood Glucose Pending 106 MG/DL (74-106) Pending White Blood Count 9.4 K/UL (4.8-10.8) Red Blood Count 4.38 M/UL (4.70-6.10) L Hemoglobin 12.9 G/DL (14.2-18.0) L Hematocrit 39.6 % (42.0-52.0) L Mean Corpuscular Volume 90 FL (80-99) Mean Corpuscular Hemoglobin 29.5 PG (27.0-31.0) Mean Corpuscular Hemoglobin Concent 32.6 G/DL (32.0-36.0) Red Cell Distribution Width 13.7 % (11.6-14.8) Platelet Count 179 K/UL (150-450) Mean Platelet Volume 10.0 FL (6.5-10.1) Neutrophils (%) (Auto) 69.9 % (45.0-75.0) Lymphocytes (%) (Auto) 20.3 % (20.0-45.0) Monocytes (%) (Auto) 8.1 % (1.0-10.0) Eosinophils (%) (Auto) 1.0 % (0.0-3.0) Basophils (%) (Auto) 0.7 % (0.0-2.0) Erythrocyte Sedimentation Rate 96 MM/HR (0-20) H Sodium Level 144 MMOL/L (136-145) Potassium Level 3.2 MMOL/L (3.5-5.1) L Chloride Level 110 MMOL/L (98-107) H Carbon Dioxide Level 23 MMOL/L (21-32) Anion Gap 11 mmol/L (5-15) Blood Urea Nitrogen 8 mg/dL (7-18) Creatinine 1.2 MG/DL (0.55-1.30) Estimat Glomerular Filtration Rate 58.7 mL/min (>60) Glucose Level 96 MG/DL (74-106) Calcium Level 7.9 MG/DL (8.5-10.1) L Phosphorus Level 2.1 MG/DL (2.5-4.9) L Magnesium Level 2.1 MG/DL (1.8-2.4) Total Bilirubin 0.5 MG/DL (0.2-1.0) Aspartate Amino Transf (AST/SGOT) 31 U/L (15-37) Alanine Aminotransferase (ALT/SGPT) 14 U/L (12-78) Alkaline Phosphatase 193 U/L (46-116) H C-Reactive Protein, Quantitative 9.5 mg/dL (0.00-0.90) H Total Protein 5.9 G/DL (6.4-8.2) L Albumin 1.7 G/DL (3.4-5.0) L Globulin 4.2 g/dL Albumin/Globulin Ratio 0.4 (1.0-2.7) L Current Medications Medications (Trade) Dose Ordered Sig/Ankush Route PRN Reason Start Time Stop Time Status Last Admin Dose Admin Acetaminophen (Tylenol) 650 mg Q4H PRN ORAL Temp >100.5 07/03/20 20:30 08/02/20 20:29 Albuterol/ Ipratropium (Albuterol/ Ipratropium) 3 ml Q4H PRN HHN Shortness of Breath 07/03/20 20:30 07/08/20 20:29 Dextrose 1,000 ml @ 50 mls/hr Q20H IV 07/06/20 12:38 08/05/20 12:37 07/06/20 20:08 Dextrose (Dextrose 50%) 50 ml Q30M PRN IV Hypoglycemia 07/03/20 22:45 10/01/20 22:44 Heparin Sodium (Porcine) (Heparin 5000 units/ml) 5,000 units EVERY 12 HOURS SUBQ 07/03/20 21:00 08/17/20 20:59 07/07/20 09:33 Insulin Aspart (NovoLOG) BEFORE MEALS AND HS SUBQ 07/04/20 06:30 10/02/20 06:29 07/04/20 06:23 Nitroglycerin (Ntg) 0.4 mg Q5M PRN SL Prn Chest Pain 07/03/20 20:30 08/02/20 20:29 Ondansetron HCl (Zofran) 4 mg Q6H PRN IVP Nausea & Vomiting 07/03/20 20:30 08/02/20 20:29 Polyethylene Glycol (Miralax) 17 gm DAILYPRN PRN ORAL Constipation 07/03/20 20:30 08/02/20 20:29 Potassium Phosphate 250 ml @ 62.5 mls/hr Q4H IVPB 07/07/20 09:30 07/07/20 17:29 07/07/20 09:12 Promethazine HCl/ Codeine (Phenergan with Codeine) 5 ml Q4H PRN ORAL For Cough 07/03/20 20:30 08/02/20 20:29 Tamsulosin HCl (Flomax) 0.4 mg DAILY ORAL 07/04/20 09:00 08/03/20 08:59 07/05/20 08:38 Temazepam (Restoril) 15 mg HSPRN PRN ORAL Insomnia 07/03/20 20:30 07/10/20 20:29 Vancomycin HCl (Vanco pharmacy to dose) 1 ea DAILY PRN MISC Per rx protocol 07/03/20 20:30 08/02/20 20:29 Vancomycin HCl 750 mg/Sodium Chloride 275 ml @ 183.333 mls/hr Q24H IVPB 07/06/20 09:00 07/11/20 08:59 07/07/20 09:11 Ashley Cho M.D. Jul 07, 2020 13:49
[2020-07-07 16:00] VITALS: BP 117/52
--- NOTE | 2020-07-07 16:17 | NUR ---
NURSE NOTES:Skin/wound assessment Sacral pressure ulcer stage 2 2.0x1.0x0.2 pink wound bed small amount serosanguineous drainage norm wound intact Calazime and Optifoam applied.Bilateral heels skin intact Optifoam applied and pillows for offloading.Care plan discussed with RN taking care of the patient.
--- NOTE | 2020-07-07 16:43 | Diagnostic Imaging Report ---
Indication: Post nasogastric tube placement Technique: One view of the chest Comparison: 03/21/2017 Findings: There is a nasogastric tube in place, tip of which projects at the level gastric fundus but proximal port at the level of the distal esophagus. The bowel gas pattern is unremarkable. The visualized lungs demonstrate diffuse interstitial disease Impression: High position of nasogastric tube. Further advancement recommended. Findings discussed by phone with TIFFANIE charge nurse Yousif at the time of interpretation
--- NOTE | 2020-07-07 17:42 | Internal Med Progress Note ---
Subjective Date of Service: Jul 07, 2020 Physician Name YaneliDano Attending Physician Ahsan Hodges MD Current Medications Medications (Trade) Dose Ordered Sig/Ankush Route PRN Reason Start Time Stop Time Status Last Admin Dose Admin Acetaminophen (Tylenol) 650 mg Q4H PRN ORAL Temp >100.5 07/03/20 20:30 08/02/20 20:29 Albuterol/ Ipratropium (Albuterol/ Ipratropium) 3 ml Q4H PRN HHN Shortness of Breath 07/03/20 20:30 07/08/20 20:29 Dextrose 1,000 ml @ 50 mls/hr Q20H IV 07/06/20 12:38 08/05/20 12:37 07/06/20 20:08 Dextrose (Dextrose 50%) 50 ml Q30M PRN IV Hypoglycemia 07/03/20 22:45 10/01/20 22:44 Heparin Sodium (Porcine) (Heparin 5000 units/ml) 5,000 units EVERY 12 HOURS SUBQ 07/03/20 21:00 08/17/20 20:59 07/07/20 09:33 Insulin Aspart (NovoLOG) BEFORE MEALS AND HS SUBQ 07/04/20 06:30 10/02/20 06:29 07/04/20 06:23 Nitroglycerin (Ntg) 0.4 mg Q5M PRN SL Prn Chest Pain 07/03/20 20:30 08/02/20 20:29 Ondansetron HCl (Zofran) 4 mg Q6H PRN IVP Nausea & Vomiting 07/03/20 20:30 08/02/20 20:29 Polyethylene Glycol (Miralax) 17 gm DAILYPRN PRN ORAL Constipation 07/03/20 20:30 08/02/20 20:29 Promethazine HCl/ Codeine (Phenergan with Codeine) 5 ml Q4H PRN ORAL For Cough 07/03/20 20:30 08/02/20 20:29 Tamsulosin HCl (Flomax) 0.4 mg DAILY ORAL 07/04/20 09:00 08/03/20 08:59 07/05/20 08:38 Temazepam (Restoril) 15 mg HSPRN PRN ORAL Insomnia 07/03/20 20:30 07/10/20 20:29 Vancomycin HCl (Vanco pharmacy to dose) 1 ea DAILY PRN MISC Per rx protocol 07/03/20 20:30 08/02/20 20:29 Vancomycin HCl 750 mg/Sodium Chloride 275 ml @ 183.333 mls/hr Q24H IVPB 07/06/20 09:00 07/11/20 08:59 07/07/20 09:11 Allergies: Coded Allergies: No Known Allergies (Unverified , 04/30/12) ROS Limited/Unobtainable: Yes Subjective 79 YO M admitted with shortness of breath. Now pneumonia and COVID positive. Cover for Int med-Dr Hodges. Step down unit Objective Last Vital Signs Date Time Temp Pulse Resp B/P (MAP) Pulse Ox O2 Delivery O2 Flow Rate FiO2 07/07/20 16:00 Nasal Cannula 4.0 07/07/20 12:00 97.9 60 19 102/63 (76) 98 60 07/06/20 19:40 36 Laboratory Tests Test 07/07/20 03:10 07/07/20 06:09 07/07/20 11:13 White Blood Count 9.4 K/UL (4.8-10.8) Red Blood Count 4.38 M/UL (4.70-6.10) L Hemoglobin 12.9 G/DL (14.2-18.0) L Hematocrit 39.6 % (42.0-52.0) L Mean Corpuscular Volume 90 FL (80-99) Mean Corpuscular Hemoglobin 29.5 PG (27.0-31.0) Mean Corpuscular Hemoglobin Concent 32.6 G/DL (32.0-36.0) Red Cell Distribution Width 13.7 % (11.6-14.8) Platelet Count 179 K/UL (150-450) Mean Platelet Volume 10.0 FL (6.5-10.1) Neutrophils (%) (Auto) 69.9 % (45.0-75.0) Lymphocytes (%) (Auto) 20.3 % (20.0-45.0) Monocytes (%) (Auto) 8.1 % (1.0-10.0) Eosinophils (%) (Auto) 1.0 % (0.0-3.0) Basophils (%) (Auto) 0.7 % (0.0-2.0) Erythrocyte Sedimentation Rate 96 MM/HR (0-20) H Sodium Level 144 MMOL/L (136-145) Potassium Level 3.2 MMOL/L (3.5-5.1) L Chloride Level 110 MMOL/L (98-107) H Carbon Dioxide Level 23 MMOL/L (21-32) Anion Gap 11 mmol/L (5-15) Blood Urea Nitrogen 8 mg/dL (7-18) Creatinine 1.2 MG/DL (0.55-1.30) Estimat Glomerular Filtration Rate 58.7 mL/min (>60) Glucose Level 96 MG/DL (74-106) Calcium Level 7.9 MG/DL (8.5-10.1) L Phosphorus Level 2.1 MG/DL (2.5-4.9) L Magnesium Level 2.1 MG/DL (1.8-2.4) Total Bilirubin 0.5 MG/DL (0.2-1.0) Aspartate Amino Transf (AST/SGOT) 31 U/L (15-37) Alanine Aminotransferase (ALT/SGPT) 14 U/L (12-78) Alkaline Phosphatase 193 U/L (46-116) H C-Reactive Protein, Quantitative 9.5 mg/dL (0.00-0.90) H Total Protein 5.9 G/DL (6.4-8.2) L Albumin 1.7 G/DL (3.4-5.0) L Globulin 4.2 g/dL Albumin/Globulin Ratio 0.4 (1.0-2.7) L POC Whole Blood Glucose 106 MG/DL (74-106) 110 MG/DL (74-106) H Microbiology Date/Time Source Procedure Growth Status 07/06/20 12:39 Nasopharynx SARS-CoV-2 RdRp Gene Assay - Final Complete 07/04/20 18:00 Rectum VRE Culture - Final Enterococcus Faecium - Vre Complete 07/04/20 18:00 Rectal Mucosa - Final NO CARBAPENEM-RESISTANT ENTEROBACTERI... Complete 07/04/20 18:00 Nasal Nares MRSA Culture - Final Staphylococcus Aureus - Mrsa Complete Intake and Output 07/06/20 07/07/20 19:00 07:00 Intake Total 550 ml Output Total 1100 ml 450 ml Balance -1100 ml 100 ml IV Total 550 ml Output Urine Total 1100 ml 450 ml # Bowel Movements 2 Objective PHYSICAL EXAMINATION: GENERAL: The patient awake with deep stimuli, open his eyes, however, cannot follow commands. The patient is on a Ventimask at this time, chronically ill-appearing. HEAD AND NECK: Pupils are equal and reactive to light. Anicteric. NECK: Supple. No JVD. LUNGS: Good air entry. No wheezing or rhonchi, however the patient has a coarse breath sounds. Decreased air in bases. HEART: S1, S2. Regular rhythm. Distant heart sounds. No murmur or gallop. ABDOMEN: Soft, nondistended, nontender. Positive bowel sounds. EXTREMITIES: No cyanosis, clubbing, or edema. NEUROLOGIC: Very limited secondary to the patient's status, cannot follow commands. Opens his eyes with deep stimuli and moving extremities spontaneously. Assessment/Plan Assessment/Plan ASSESSMENT: 1. Acute hypoxemic respiratory failure, most likely secondary to pneumonia and sepsis. 2. Sepsis secondary to urinary tract infection and pneumonia. 3. pneumonia=MRSA 4. Acute kidney injury on chronic renal insufficiency. 5. Dehydration. 6. History of chronic congestive heart failure. 7. Diabetes type 2. 8. Dyslipidemia. 9. Hypertension. 10. Alzheimer's disease. 11. COVID 19 previous positive PLAN: 1. Admit the patient to step-down. 2. Dr. Carreno,=Pulmonary Critical Care 3. Dr. Cho = Inf Dis. 4. IV= D5W due to the hypernatremia and dehydration. 5. antibiotics = vancomycin and cefepime 6. Code status is full code. 7. DVT prophylaxis is heparin subcutaneous. Dano Groves MD Jul 07, 2020 17:42
--- NOTE | 2020-07-07 19:37 | NUR ---
NURSE HAND-OFF REPORT: Important Events on Shift: NGT inserted, initiation of soft wrist restraints Patient Status: stable Diet: awaiting for KUB, Glucerna 1.2 Pending Orders: NA Pending Results/Labs:NA Pending MD notification:NA Latest Vital Signs: Temperature 98.2 , Pulse 65 , B/P 117 /52 , Respiratory Rate 20 , O2 SAT 95 , Nasal Cannula, O2 Flow Rate 4.0 . Vital Sign Comment: stable EKG Rhythm: Sinus Rhythm Rhythm change?: N MD Notified?: Y -Left Message for Dr. Hodges, No cardio on the case. MD Response: Latest Gonzalez Fall Score: 50 Fall Risk: High Risk Safety Measures: Call light Within Reach, Bed Alarm Zone 1, Side Rails Side Rails x3, Bed position Low and Locked. Fall Precautions: Yellow Socks Yellow Gown Door Sign Patient Fall Education Report given to FLORES Chacon.
--- NOTE | 2020-07-07 19:38 | NUR ---
NURSE NOTES: received pt from León TANNER., pt is awake and agitated and combative at this time. waiting for KUB result to come out for NGT. pt is Setswana speaker, and now he is AO x0. NC at 4L O2sat is at 97%. NGT noted at 75cm, will wait for to be confirmed with KUB. ziegler cath noted and draining well with gravity, no active bleeding noted. right FA 22G and left hand 20G IV site intact, clean, and patent. D5W is running at 50ml/hr. bilateral soft wrist restrain noted, pulse noted, no edema noted. call light within reach. will continue to monitor pt with plan of care. bed at the lowest position, alarmed, and lock.
--- NOTE | 2020-07-07 19:42 | Diagnostic Imaging Report ---
EXAM: XR Abdomen, 2 Views CLINICAL HISTORY: NGT TECHNIQUE: Frontal view of the abdomen/pelvis with upright view of the abdomen. COMPARISON: 07/07/2020 FINDINGS: Lower thorax: Presumed subsegmental atelectasis at the lung bases. Intraperitoneal space: No free air. Gastrointestinal tract: Nonspecific bowel gas pattern. Bones/joints: Osteopenia. Tubes, lines and devices: The NG tube is coiled upon itself within a moderate sized hiatal hernia with the tip above the diaphragm. NG tube should be removed and reinserted. IMPRESSION: 1. The distal NG tube is called upon itself with its tip located within hiatal hernia above the diaphragm. 2. NG tube should be removed and reinserted. <MYCVCSECTION> Communications: 07/07/20 19:44 Call Nurse FLORES Bae in [facility] on 07/07 19:44 (-07:00)
--- NOTE | 2020-07-07 19:48 | NUR ---
NURSE NOTES: took out the NGT, pt tolerated well without difficulties. no active bleeding noted at this time. call light within reach. will continue to monitor pt.
[2020-07-07 20:00] VITALS: BP 112/60
[2020-07-08] VITALS: BP 124/73
--- NOTE | 2020-07-08 02:00 | NUR ---
NURSE NOTES: cleaned pt, oral care given, provided new gown, and new blanket. pt is still combative at this time. call light within reach. will continue to monitor pt.
[2020-07-08 04:00] VITALS: BP 120/66
[2020-07-08] MEDS: NovoLOG Insulin Flexpen SUBQ SCH ×4 (05:31→20:27)
--- NOTE | 2020-07-08 05:42 | Diagnostic Imaging Report ---
EXAM: XR Abdomen, 2 Views CLINICAL HISTORY: NGT TECHNIQUE: Frontal view of the abdomen/pelvis with upright view of the abdomen. COMPARISON: No relevant prior studies available. FINDINGS/IMPRESSION: Enteric feeding tube terminates in the stomach. Nonobstructed bowel gas pattern. Mild fecal retention. No large volume free intraperitoneal air. Small bilateral pleural effusions with mild vascular congestion. Cardiomegaly.
--- NOTE | 2020-07-08 07:05 | NUR ---
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 RECEIVED PT ON DROPLET PRECAUTION ROOM POSITIVE FOR COVID 19 SINCE 07/06/20. PT VERY CONFUSED ON BILAT SOFT WRIST RESTRAINTS TO PREVENT PT FROM PULLING MEDICAL DEVICES AND TO PREVENT FALL AND INJURIES. FULL BODY ASSESSMENT DONE.PT REPOSITIONED IN BED AND MADE COMFORTABLE POSSIBLE .PT WITH NGT PATENT AND INTACT STARTED ON GLUCERNA 1.2 @ 30CC/HRS PER M.D ORDERS. NO ACUTE DISTRESS NOTED AT THIS TIME. WILL CONT TO MONITOR.
[2020-07-08 07:27] LABS: BASOPHILS % (AUTO) 0.9 % (0.0-2.0); CALCIUM 8.6 MG/DL (8.5-10.1); CREATININE 1.2 MG/DL (0.55-1.30); EOSINOPHILS % (AUTO) 0.8 % (0.0-3.0); HEMATOCRIT 40.3 % (42.0-52.0); HEMOGLOBIN 13.1 G/DL (14.2-18.0); LYMPHOCYTES % (AUTO) 16.9 % (20.0-45.0); MEAN CORPUSCULAR VOLUME 90 FL (80-99); MONOCYTES % (AUTO) 7.1 % (1.0-10.0); NEUTROPHILS % (AUTO) 74.3 % (45.0-75.0); PLATELET COUNT 204 K/UL (150-450); POTASSIUM 3.3 MMOL/L (3.5-5.1); RED BLOOD COUNT 4.49 M/UL (4.70-6.10); RED CELL DISTRIBUTION WIDTH 14.5 % (11.6-14.8); WHITE BLOOD COUNT 9.4 K/UL (4.8-10.8)
--- NOTE | 2020-07-08 07:27 | NUR ---
NURSE HAND-OFF REPORT: Important Events on Shift:NGT replacement waiting for KUB result Patient Status: stable Diet: NPO for now Pending Orders: n/a Pending Results/Labs:KUB and morning labs (CBC, BMP) Pending MD notification:n/a Latest Vital Signs: Temperature 97.6 , Pulse 85 , B/P 120 /66 , Respiratory Rate 18 , O2 SAT 98 , Nasal Cannula, O2 Flow Rate 4.0 . Vital Sign Comment: stable EKG Rhythm: Sinus Rhythm Rhythm change?: N Notified?: N Response: Latest Gonzalez Fall Score: 50 Fall Risk: High Risk Safety Measures: Call light Within Reach, Bed Alarm Zone 1, Side Rails Side Rails x3, Bed position Low and Locked. Fall Precautions: Yellow Socks Yellow Gown Door Sign Patient Fall Education Report given to Oly TANNER
--- NOTE | 2020-07-08 07:43 | NUR ---
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 * Increased kcal and pro needs r/t wound healing as evidenced by sacral pressure injury stage 2. CURRENT DIET: NPO ENTERAL NUTRITION RECOMMENDATIONS: Glucerna 1.2 goal of 60ml/hr x24 hrs to provide 1440ml, 1728 kcal, 86g pro, 1159ml free H2O - Obtain GI access, initiate Glucerna 1.2 @low rate 20ml/hr for 6 hrs. - Advance 10ml/hr q4-6 hrs to goal. - Flush per MD/ HOB over 30 degrees. ADDITIONAL RECOMMENDATIONS: * Calibrated bedscale wt for accurate CBW * TF recs as above if part of POC * Replete lytes as needed * Pt is NPO from adm, rec non oral feeds to meet est kcal and pro needs * Wound care: when tolerating TF at goal add ADALBERTO BID . .
[2020-07-08 08:00] VITALS: BP 150/78
[2020-07-08 08:28] LABS: ALANINE AMINOTRANSFERASE 37 U/L (12-78); ALBUMIN 1.9 G/DL (3.4-5.0); ALKALINE PHOSPHATASE 226 U/L (46-116); ASPARTATE AMINO TRANSFERASE 49 U/L (15-37); BILIRUBIN,DIRECT 0.2 MG/DL (0.0-0.3); BILIRUBIN,TOTAL 0.5 MG/DL (0.2-1.0); PHOSPHORUS 3.2 MG/DL (2.5-4.9)
--- NOTE | 2020-07-08 09:12 | Pulmonolgy Critical Care Note ---
Critical Care - Asmt/Plan Problems: (1) 2019 novel coronavirus disease (COVID-19) (2) Multifocal pneumonia (3) Acute encephalopathy (4) Severe sepsis (5) Alzheimer's dementia (6) HTN (hypertension) (7) History of CVA (cerebrovascular accident) (8) BPH (benign prostatic hyperplasia) Respiratory: monitor respiratory rate, adjust FIO2, CXR Cardiac: continue to monitor HR/BP Renal: F/U I&O, check electrolytes, other - K supplement Infectious Disease: check cultures, continue antibiotics Gastrointestinal: continue feedings/current rate Endocrine: monitor blood sugar Hematologic: monitor H/H, transfuse if hgb<8.5 Neurologic: PRN Ativan, PRN Morphine, keep patient comfortable Prophylaxis: Protonix, Heparin Notes Reviewed: dietitian research, cardio, renal Discussed with: nurses, consultants, case assistantmanager cath lab - Objective Last 24 Hour Vital Signs Date Time Temp Pulse Resp B/P (MAP) Pulse Ox O2 Delivery O2 Flow Rate FiO2 07/08/20 08:00 98.2 84 20 150/78 (102) 96 84 07/08/20 04:00 Nasal Cannula 4.0 07/08/20 04:00 4.0 07/08/20 04:00 85 07/08/20 04:00 97.6 65 18 120/66 (84) 98 65 07/08/20 00:00 98.1 78 20 124/73 (90) 97 78 07/08/20 00:00 Nasal Cannula 4.0 07/07/20 23:36 69 07/07/20 20:00 98.0 70 20 112/60 (77) 97 70 07/07/20 20:00 Nasal Cannula 4.0 07/07/20 20:00 4.0 07/07/20 19:24 73 07/07/20 19:02 95 Nasal Cannula 4.0 36 07/07/20 16:00 Nasal Cannula 4.0 07/07/20 16:00 65 07/07/20 16:00 4.0 07/07/20 16:00 98.2 62 20 117/52 (73) 94 62 07/07/20 12:00 4.0 07/07/20 12:00 Nasal Cannula 4.0 07/07/20 12:00 97.9 60 19 102/63 (76) 98 60 07/07/20 11:37 62 Status: sedated Condition: critical HEENT: atraumatic Neck: full ROM Heart: HR/BP stable Abdomen: soft, non-tender, active bowel sounds Extremities: no C/C/E Micro: Microbiology Date/Time Source Procedure Growth Status 07/06/20 12:39 Nasopharynx SARS-CoV-2 RdRp Gene Assay - Final Complete Accucheck: 105 Critical Care - Subjective ROS Limited/Unobtainable: Yes Condition: critical EKG Rhythm: Sinus Rhythm FI02: 36 Sputum Amount: Small I&O: Intake and Output 07/07/20 07/08/20 19:00 07:00 Intake Total 941.666 ml 185 ml Output Total 930 ml 780 ml Balance 11.666 ml -595 ml IV Total 941.666 ml 185 ml Output Urine Total 930 ml 780 ml # Bowel Movements 1 CXR: LLL infiltrate, Labs: Laboratory Tests Test 07/07/20 11:13 07/07/20 17:29 07/07/20 21:56 07/08/20 05:22 POC Whole Blood Glucose 110 MG/DL (74-106) H Pending Pending 105 MG/DL (74-106) Test 07/08/20 07:05 White Blood Count 9.4 K/UL (4.8-10.8) Red Blood Count 4.49 M/UL (4.70-6.10) L Hemoglobin 13.1 G/DL (14.2-18.0) L Hematocrit 40.3 % (42.0-52.0) L Mean Corpuscular Volume 90 FL (80-99) Mean Corpuscular Hemoglobin 29.2 PG (27.0-31.0) Mean Corpuscular Hemoglobin Concent 32.5 G/DL (32.0-36.0) Red Cell Distribution Width 14.5 % (11.6-14.8) Platelet Count 204 K/UL (150-450) Mean Platelet Volume 10.3 FL (6.5-10.1) H Neutrophils (%) (Auto) 74.3 % (45.0-75.0) Lymphocytes (%) (Auto) 16.9 % (20.0-45.0) L Monocytes (%) (Auto) 7.1 % (1.0-10.0) Eosinophils (%) (Auto) 0.8 % (0.0-3.0) Basophils (%) (Auto) 0.9 % (0.0-2.0) Sodium Level 144 MMOL/L (136-145) Potassium Level 3.3 MMOL/L (3.5-5.1) L Chloride Level 109 MMOL/L (98-107) H Carbon Dioxide Level 26 MMOL/L (21-32) Anion Gap 9 mmol/L (5-15) Blood Urea Nitrogen 5 mg/dL (7-18) L Creatinine 1.2 MG/DL (0.55-1.30) Estimat Glomerular Filtration Rate 58.7 mL/min (>60) Glucose Level 115 MG/DL (74-106) H Calcium Level 8.6 MG/DL (8.5-10.1) Phosphorus Level 3.2 MG/DL (2.5-4.9) Magnesium Level 2.1 MG/DL (1.8-2.4) Total Bilirubin 0.5 MG/DL (0.2-1.0) Direct Bilirubin 0.2 MG/DL (0.0-0.3) Aspartate Amino Transf (AST/SGOT) 49 U/L (15-37) H Alanine Aminotransferase (ALT/SGPT) 37 U/L (12-78) Alkaline Phosphatase 226 U/L (46-116) H Total Protein 7.1 G/DL (6.4-8.2) Albumin 1.9 G/DL (3.4-5.0) L Vancomycin Level Trough 12.8 ug/mL (5.0-12.0) H Kya Carreno MD Jul 08, 2020 09:12
--- NOTE | 2020-07-08 09:42 | Cardiac Electrophysiology PN ---
Assessment/Plan Assessment/Plan 1. Accelerated junctional rhythm. Not bradycardic. Ruled out for [place] Echocardiogram showed ejection fraction of 55%. 2. Sepsis, on broad-spectrum IV antibiotic. 3. Respiratory failure, on antibiotic. 4. Dehydration. 5. Acute renal failure. 6. Electrolyte imbalance. 7. History of congestive heart failure, but echocardiogram showed normal left ventricular systolic function. 8. History of previous COVID infection in May 2020 and Active Covid now again in isolation 9. Dementia. DW RN Subjective Subjective In SR in NAD. Nonverbal in Covid isolation. Objective Last 24 Hour Vital Signs Date Time Temp Pulse Resp B/P (MAP) Pulse Ox O2 Delivery O2 Flow Rate FiO2 07/08/20 08:00 98.2 84 20 150/78 (102) 96 84 07/08/20 04:00 Nasal Cannula 4.0 07/08/20 04:00 4.0 07/08/20 04:00 85 07/08/20 04:00 97.6 65 18 120/66 (84) 98 65 07/08/20 00:00 98.1 78 20 124/73 (90) 97 78 07/08/20 00:00 Nasal Cannula 4.0 07/07/20 23:36 69 07/07/20 20:00 98.0 70 20 112/60 (77) 97 70 07/07/20 20:00 Nasal Cannula 4.0 07/07/20 20:00 4.0 07/07/20 19:24 73 07/07/20 19:02 95 Nasal Cannula 4.0 36 07/07/20 16:00 Nasal Cannula 4.0 07/07/20 16:00 65 07/07/20 16:00 4.0 07/07/20 16:00 98.2 62 20 117/52 (73) 94 62 07/07/20 12:00 4.0 07/07/20 12:00 Nasal Cannula 4.0 07/07/20 12:00 97.9 60 19 102/63 (76) 98 60 07/07/20 11:37 62 Intake and Output 07/07/20 07/08/20 19:00 07:00 Intake Total 941.666 ml 185 ml Output Total 930 ml 780 ml Balance 11.666 ml -595 ml IV Total 941.666 ml 185 ml Output Urine Total 930 ml 780 ml # Bowel Movements 1 Laboratory Tests Test 07/07/20 11:13 07/07/20 17:29 07/07/20 21:56 07/08/20 05:22 POC Whole Blood Glucose 110 MG/DL (74-106) H Pending Pending 105 MG/DL (74-106) Test 07/08/20 07:05 White Blood Count 9.4 K/UL (4.8-10.8) Red Blood Count 4.49 M/UL (4.70-6.10) L Hemoglobin 13.1 G/DL (14.2-18.0) L Hematocrit 40.3 % (42.0-52.0) L Mean Corpuscular Volume 90 FL (80-99) Mean Corpuscular Hemoglobin 29.2 PG (27.0-31.0) Mean Corpuscular Hemoglobin Concent 32.5 G/DL (32.0-36.0) Red Cell Distribution Width 14.5 % (11.6-14.8) Platelet Count 204 K/UL (150-450) Mean Platelet Volume 10.3 FL (6.5-10.1) H Neutrophils (%) (Auto) 74.3 % (45.0-75.0) Lymphocytes (%) (Auto) 16.9 % (20.0-45.0) L Monocytes (%) (Auto) 7.1 % (1.0-10.0) Eosinophils (%) (Auto) 0.8 % (0.0-3.0) Basophils (%) (Auto) 0.9 % (0.0-2.0) Sodium Level 144 MMOL/L (136-145) Potassium Level 3.3 MMOL/L (3.5-5.1) L Chloride Level 109 MMOL/L (98-107) H Carbon Dioxide Level 26 MMOL/L (21-32) Anion Gap 9 mmol/L (5-15) Blood Urea Nitrogen 5 mg/dL (7-18) L Creatinine 1.2 MG/DL (0.55-1.30) Estimat Glomerular Filtration Rate 58.7 mL/min (>60) Glucose Level 115 MG/DL (74-106) H Calcium Level 8.6 MG/DL (8.5-10.1) Phosphorus Level 3.2 MG/DL (2.5-4.9) Magnesium Level 2.1 MG/DL (1.8-2.4) Total Bilirubin 0.5 MG/DL (0.2-1.0) Direct Bilirubin 0.2 MG/DL (0.0-0.3) Aspartate Amino Transf (AST/SGOT) 49 U/L (15-37) H Alanine Aminotransferase (ALT/SGPT) 37 U/L (12-78) Alkaline Phosphatase 226 U/L (46-116) H Total Protein 7.1 G/DL (6.4-8.2) Albumin 1.9 G/DL (3.4-5.0) L Vancomycin Level Trough 12.8 ug/mL (5.0-12.0) H Microbiology Date/Time Source Procedure Growth Status 07/06/20 12:39 Nasopharynx SARS-CoV-2 RdRp Gene Assay - Final Complete Objective HEAD AND NECK: No JVD. LUNGS: Coarse rhonchi. CARDIOVASCULAR: Irregular S1 and S2 with no gallop. ABDOMEN: Soft. EXTREMITIES: No pitting edema. Klever Matt MD Jul 08, 2020 09:42
[2020-07-08] MEDS: Tamsulosin 0.4mg cap ORAL SCH (09:50)
[2020-07-08] MEDS: Heparin 5000 units/ml inj SUBQ SCH ×2 (09:51→20:36)
[2020-07-08] MEDS: Vancomycin 1 GM in NS 275 ML IVPB SCH (09:55)
--- NOTE | 2020-07-08 11:44 | Nephrology Progress Note ---
Assessment/Plan Problem List: (1) Dehydration (2) MELANIE (acute kidney injury) (3) Renal failure (ARF), acute on chronic (4) Hypoxia (5) Acute encephalopathy (6) Electrolyte imbalance Assessment 79-year-old male is admitted with acute hypoxic respiratory failure most likely secondary to pneumonia and sepsis, UTI. Acute on chronic renal failure Dehydration Electrolyte imbalances, hypernatremia Hypoalbuminemia Diabetes type 2 History of congestive heart failure Hypertension Hyperlipemia Alzheimer's Previous COVID-19 infection in May 2020 Plan July 08: Labs reviewed. Potassium via NG tube ordered. IV fluids stopped. Continue per consultants. July 07: Labs reviewed. Low potassium and low phosphorus replaced. Continue per consultants. Remains stable from renal standpoint of view. July 06: Patient remains n.p.o. IV fluid down to 50 cc an hour. Potassium supplement intravenously ordered. Continue per consultants. Previously: Patient is n.p.o., will continue on IV fluid of D5W 75 cc an hour We will monitor electrolytes and renal parameters Avoid nephrotoxic's Start p.o. when he clears by speech therapist, meanwhile aspiration precautions Keep the blood pressure and blood sugar in check Per orders Subjective ROS Limited/Unobtainable: Yes Constitutional: Reports: malaise Objective Objective Last 24 Hour Vital Signs Date Time Temp Pulse Resp B/P (MAP) Pulse Ox O2 Delivery O2 Flow Rate FiO2 07/08/20 08:00 98.2 84 20 150/78 (102) 96 84 07/08/20 04:00 Nasal Cannula 4.0 07/08/20 04:00 4.0 07/08/20 04:00 85 07/08/20 04:00 97.6 65 18 120/66 (84) 98 65 07/08/20 00:00 98.1 78 20 124/73 (90) 97 78 07/08/20 00:00 Nasal Cannula 4.0 07/07/20 23:36 69 07/07/20 20:00 98.0 70 20 112/60 (77) 97 70 07/07/20 20:00 Nasal Cannula 4.0 07/07/20 20:00 4.0 07/07/20 19:24 73 07/07/20 19:02 95 Nasal Cannula 4.0 36 07/07/20 16:00 Nasal Cannula 4.0 07/07/20 16:00 65 07/07/20 16:00 4.0 07/07/20 16:00 98.2 62 20 117/52 (73) 94 62 07/07/20 12:00 4.0 07/07/20 12:00 Nasal Cannula 4.0 07/07/20 12:00 97.9 60 19 102/63 (76) 98 60 Intake and Output 07/07/20 07/08/20 19:00 07:00 Intake Total 941.666 ml 185 ml Output Total 930 ml 780 ml Balance 11.666 ml -595 ml IV Total 941.666 ml 185 ml Output Urine Total 930 ml 780 ml # Bowel Movements 1 Current Medications Medications (Trade) Dose Ordered Sig/Ankush Route PRN Reason Start Time Stop Time Status Last Admin Dose Admin Acetaminophen (Tylenol) 650 mg Q4H PRN ORAL Temp >100.5 07/03/20 20:30 08/02/20 20:29 Albuterol/ Ipratropium (Albuterol/ Ipratropium) 3 ml Q4H PRN HHN Shortness of Breath 07/03/20 20:30 07/08/20 20:29 Dextrose 1,000 ml @ 50 mls/hr Q20H IV 07/06/20 12:38 08/05/20 12:37 07/08/20 03:18 Dextrose (Dextrose 50%) 50 ml Q30M PRN IV Hypoglycemia 07/03/20 22:45 10/01/20 22:44 Heparin Sodium (Porcine) (Heparin 5000 units/ml) 5,000 units EVERY 12 HOURS SUBQ 07/03/20 21:00 08/17/20 20:59 07/08/20 09:51 Insulin Aspart (NovoLOG) BEFORE MEALS AND HS SUBQ 07/04/20 06:30 10/02/20 06:29 07/04/20 06:23 Nitroglycerin (Ntg) 0.4 mg Q5M PRN SL Prn Chest Pain 07/03/20 20:30 08/02/20 20:29 Ondansetron HCl (Zofran) 4 mg Q6H PRN IVP Nausea & Vomiting 07/03/20 20:30 08/02/20 20:29 Polyethylene Glycol (Miralax) 17 gm DAILYPRN PRN ORAL Constipation 07/03/20 20:30 08/02/20 20:29 Promethazine HCl/ Codeine (Phenergan with Codeine) 5 ml Q4H PRN ORAL For Cough 07/03/20 20:30 08/02/20 20:29 Tamsulosin HCl (Flomax) 0.4 mg DAILY ORAL 07/04/20 09:00 08/03/20 08:59 07/08/20 09:50 Temazepam (Restoril) 15 mg HSPRN PRN ORAL Insomnia 07/03/20 20:30 07/10/20 20:29 Vancomycin HCl (Vanco pharmacy to dose) 1 ea DAILY PRN MISC Per rx protocol 07/03/20 20:30 08/02/20 20:29 Vancomycin HCl 1 gm/Sodium Chloride 275 ml @ 183.708 mls/hr Q24H IVPB 07/08/20 10:00 07/13/20 09:59 07/08/20 09:55 Laboratory Tests 07/07/20 17:29: POC Whole Blood Glucose [Pending] 07/07/20 21:56: POC Whole Blood Glucose [Pending] 07/08/20 05:22: POC Whole Blood Glucose 105 07/08/20 07:05: White Blood Count 9.4, Red Blood Count 4.49L, Hemoglobin 13.1L, Hematocrit 40.3L , Mean Corpuscular Volume 90, Mean Corpuscular Hemoglobin 29.2, Mean Corpuscular Hemoglobin Concent 32.5, Red Cell Distribution Width 14.5, Platelet Count 204, Mean Platelet Volume 10.3H, Neutrophils (%) (Auto) 74.3, Lymphocytes (%) (Auto) 16.9L, Monocytes (%) (Auto) 7.1, Eosinophils (%) (Auto) 0.8, Basophils (%) (Auto) 0.9, Sodium Level 144, Potassium Level 3.3L, Chloride Level 109H, Carbon Dioxide Level 26, Anion Gap 9, Blood Urea Nitrogen 5L, Creatinine 1.2, Estimat Glomerular Filtration Rate 58.7, Glucose Level 115H, Calcium Level 8.6, Phosphorus Level 3.2, Magnesium Level 2.1, Total Bilirubin 0.5, Direct Bilirubin 0.2, Aspartate Amino Transf (AST/SGOT) 49H, Alanine Aminotransferase (ALT/SGPT) 37, Alkaline Phosphatase 226H, Total Protein 7.1, Albumin 1.9L, Vancomycin Level Trough 12.8H Height (Feet): 5 Height (Inches): 4.00 Weight (Pounds): 130 General Appearance: no apparent distress, lethargic EENT: other - NGT in place Respiratory/Chest: decreased breath sounds Abdomen: soft Tino Connors MD Jul 08, 2020 11:44
[2020-07-08 12:00] VITALS: BP 107/76
--- NOTE | 2020-07-08 12:35 | Internal Med Progress Note ---
Subjective Date of Service: Jul 08, 2020 Physician Name Dano Groves Attending Physician Ahsan Hodges MD Current Medications Medications (Trade) Dose Ordered Sig/Ankush Route PRN Reason Start Time Stop Time Status Last Admin Dose Admin Acetaminophen (Tylenol) 650 mg Q4H PRN ORAL Temp >100.5 07/03/20 20:30 08/02/20 20:29 Albuterol/ Ipratropium (Albuterol/ Ipratropium) 3 ml Q4H PRN HHN Shortness of Breath 07/03/20 20:30 07/08/20 20:29 Dextrose (Dextrose 50%) 50 ml Q30M PRN IV Hypoglycemia 07/03/20 22:45 10/01/20 22:44 Heparin Sodium (Porcine) (Heparin 5000 units/ml) 5,000 units EVERY 12 HOURS SUBQ 07/03/20 21:00 08/17/20 20:59 07/08/20 09:51 Insulin Aspart (NovoLOG) BEFORE MEALS AND HS SUBQ 07/04/20 06:30 10/02/20 06:29 07/04/20 06:23 Nitroglycerin (Ntg) 0.4 mg Q5M PRN SL Prn Chest Pain 07/03/20 20:30 08/02/20 20:29 Ondansetron HCl (Zofran) 4 mg Q6H PRN IVP Nausea & Vomiting 07/03/20 20:30 08/02/20 20:29 Polyethylene Glycol (Miralax) 17 gm DAILYPRN PRN ORAL Constipation 07/03/20 20:30 08/02/20 20:29 Potassium Chloride (K-Dur) 20 meq TWICE A DAY NG 07/08/20 12:00 10/06/20 11:59 Promethazine HCl/ Codeine (Phenergan with Codeine) 5 ml Q4H PRN ORAL For Cough 07/03/20 20:30 08/02/20 20:29 Tamsulosin HCl (Flomax) 0.4 mg DAILY ORAL 07/04/20 09:00 08/03/20 08:59 07/08/20 09:50 Temazepam (Restoril) 15 mg HSPRN PRN ORAL Insomnia 07/03/20 20:30 07/10/20 20:29 Vancomycin HCl (Vanco pharmacy to dose) 1 ea DAILY PRN MISC Per rx protocol 07/03/20 20:30 08/02/20 20:29 Vancomycin HCl 1 gm/Sodium Chloride 275 ml @ 183.708 mls/hr Q24H IVPB 07/08/20 10:00 07/13/20 09:59 07/08/20 09:55 Allergies: Coded Allergies: No Known Allergies (Unverified , 04/30/12) ROS Limited/Unobtainable: Yes Subjective 79 YO M admitted with shortness of breath. Now pneumonia and COVID positive. Cover for Int med-Dr Hodges. Step down unit Objective Last Vital Signs Date Time Temp Pulse Resp B/P (MAP) Pulse Ox O2 Delivery O2 Flow Rate FiO2 07/08/20 12:00 97.9 79 20 107/76 (86) 97 79 07/08/20 04:00 Nasal Cannula 4.0 07/07/20 19:02 36 Laboratory Tests Test 07/07/20 17:29 07/07/20 21:56 07/08/20 05:22 07/08/20 07:05 POC Whole Blood Glucose Pending Pending 105 MG/DL (74-106) White Blood Count 9.4 K/UL (4.8-10.8) Red Blood Count 4.49 M/UL (4.70-6.10) L Hemoglobin 13.1 G/DL (14.2-18.0) L Hematocrit 40.3 % (42.0-52.0) L Mean Corpuscular Volume 90 FL (80-99) Mean Corpuscular Hemoglobin 29.2 PG (27.0-31.0) Mean Corpuscular Hemoglobin Concent 32.5 G/DL (32.0-36.0) Red Cell Distribution Width 14.5 % (11.6-14.8) Platelet Count 204 K/UL (150-450) Mean Platelet Volume 10.3 FL (6.5-10.1) H Neutrophils (%) (Auto) 74.3 % (45.0-75.0) Lymphocytes (%) (Auto) 16.9 % (20.0-45.0) L Monocytes (%) (Auto) 7.1 % (1.0-10.0) Eosinophils (%) (Auto) 0.8 % (0.0-3.0) Basophils (%) (Auto) 0.9 % (0.0-2.0) Sodium Level 144 MMOL/L (136-145) Potassium Level 3.3 MMOL/L (3.5-5.1) L Chloride Level 109 MMOL/L (98-107) H Carbon Dioxide Level 26 MMOL/L (21-32) Anion Gap 9 mmol/L (5-15) Blood Urea Nitrogen 5 mg/dL (7-18) L Creatinine 1.2 MG/DL (0.55-1.30) Estimat Glomerular Filtration Rate 58.7 mL/min (>60) Glucose Level 115 MG/DL (74-106) H Calcium Level 8.6 MG/DL (8.5-10.1) Phosphorus Level 3.2 MG/DL (2.5-4.9) Magnesium Level 2.1 MG/DL (1.8-2.4) Total Bilirubin 0.5 MG/DL (0.2-1.0) Direct Bilirubin 0.2 MG/DL (0.0-0.3) Aspartate Amino Transf (AST/SGOT) 49 U/L (15-37) H Alanine Aminotransferase (ALT/SGPT) 37 U/L (12-78) Alkaline Phosphatase 226 U/L (46-116) H Total Protein 7.1 G/DL (6.4-8.2) Albumin 1.9 G/DL (3.4-5.0) L Vancomycin Level Trough 12.8 ug/mL (5.0-12.0) H Test 07/08/20 12:18 POC Whole Blood Glucose Pending Microbiology Date/Time Source Procedure Growth Status 07/06/20 12:39 Nasopharynx SARS-CoV-2 RdRp Gene Assay - Final Complete Intake and Output 07/07/20 07/08/20 19:00 07:00 Intake Total 941.666 ml 185 ml Output Total 930 ml 780 ml Balance 11.666 ml -595 ml IV Total 941.666 ml 185 ml Output Urine Total 930 ml 780 ml # Bowel Movements 1 Objective PHYSICAL EXAMINATION: GENERAL: The patient awake with deep stimuli, open his eyes, however, cannot follow commands. The patient is on a Ventimask at this time, chronically ill-appearing. HEAD AND NECK: Pupils are equal and reactive to light. Anicteric. NECK: Supple. No JVD. LUNGS: Good air entry. No wheezing or rhonchi, however the patient has a coarse breath sounds. Decreased air in bases. HEART: S1, S2. Regular rhythm. Distant heart sounds. No murmur or gallop. ABDOMEN: Soft, nondistended, nontender. Positive bowel sounds. EXTREMITIES: No cyanosis, clubbing, or edema. NEUROLOGIC: Very limited secondary to the patient's status, cannot follow commands. Opens his eyes with deep stimuli and moving extremities spontaneously. Assessment/Plan Assessment/Plan ASSESSMENT: 1. Acute hypoxemic respiratory failure, most likely secondary to pneumonia and sepsis. 2. Sepsis secondary to urinary tract infection and pneumonia. 3. pneumonia=MRSA 4. Acute kidney injury on chronic renal insufficiency. 5. Dehydration. 6. History of chronic congestive heart failure. 7. Diabetes type 2. 8. Dyslipidemia. 9. Hypertension. 10. Alzheimer's disease. 11. COVID 19 previous positive PLAN: 1. Admit the patient to step-down. 2. Dr. Carreno,=Pulmonary Critical Care 3. Dr. Cho = Inf Dis. 4. IV= D5W due to the hypernatremia and dehydration. 5. antibiotics = vancomycin and cefepime 6. Code status is full code. 7. DVT prophylaxis is heparin subcutaneous. Dano Groves MD Jul 08, 2020 12:35
[2020-07-08] MEDS ORDERED: Tubing IV Secondary IV ONE ×2 (13:48→13:50)
[2020-07-08] MEDS ORDERED: NS 275ml ONE (13:50)
--- NOTE | 2020-07-08 14:04 | Infectious Diseases Prog Note ---
Assessment/Plan 79yo M with: Fever at SNF, 100.2 max here; SP Leukocytosis to 12- SP Acute hypoxic resp failure, on NRB mask> 4l NC Pneumonia- hx of COVID19 PNA 05/20/2007/03 BCx NTD UA 15-20 WBC, UCx Neg 07/03 COVID rapid neg; 07/06 rapid COVID PCR + (from prior infection)- not new infection Flu A/B neg CXR: L pna Resp cx MRSA CKD, Cr 1.7 [facility] resident (ed [facility]) Non-verbal VRE and MRSA colonized Plan: Cont vanco #6/7-10 for MRSA PNA -07/06 SP Cefepime #4 -07/04 SP Flagyl # f/u cx Monitor CBC/CMP Monitor resp status Monitor temp curve and hemodynamics off COVID isolation- positive covid test represents residual virus from infection on 05/2020 D/w RN and pharmacy staff. Thank you for this consult. [facility] will continue to follow. Subjective Allergies: Coded Allergies: No Known Allergies (Unverified , 04/30/12) afebrile at 4l NC no leukocytosis Bcx NTD Objective Last 24 Hour Vital Signs Date Time Temp Pulse Resp B/P (MAP) Pulse Ox O2 Delivery O2 Flow Rate FiO2 07/08/20 12:00 97.9 79 20 107/76 (86) 97 79 07/08/20 08:00 98.2 84 20 150/78 (102) 96 84 07/08/20 04:00 Nasal Cannula 4.0 07/08/20 04:00 4.0 07/08/20 04:00 85 07/08/20 04:00 97.6 65 18 120/66 (84) 98 65 07/08/20 00:00 98.1 78 20 124/73 (90) 97 78 07/08/20 00:00 Nasal Cannula 4.0 07/07/20 23:36 69 07/07/20 20:00 98.0 70 20 112/60 (77) 97 70 07/07/20 20:00 Nasal Cannula 4.0 07/07/20 20:00 4.0 07/07/20 19:24 73 07/07/20 19:02 95 Nasal Cannula 4.0 36 07/07/20 16:00 Nasal Cannula 4.0 07/07/20 16:00 65 07/07/20 16:00 4.0 07/07/20 16:00 98.2 62 20 117/52 (05) 53 62 Height (Feet): 5 Height (Inches): 4.00 Weight (Pounds): 130 Gen: NAD HEENT: NCAT CV: RRR Pulm: Rhonchi anteriorly, lots of oral secretions Abd: Soft, NTND Ext: No c/c/e Neuro: Awake Microbiology Date/Time Source Procedure Growth Status 07/06/20 12:39 Nasopharynx SARS-CoV-2 RdRp Gene Assay - Final Complete Laboratory Tests Test 07/07/20 17:29 07/07/20 21:56 07/08/20 05:22 07/08/20 07:05 POC Whole Blood Glucose Pending Pending 105 MG/DL (74-106) White Blood Count 9.4 K/UL (4.8-10.8) Red Blood Count 4.49 M/UL (4.70-6.10) L Hemoglobin 13.1 G/DL (14.2-18.0) L Hematocrit 40.3 % (42.0-52.0) L Mean Corpuscular Volume 90 FL (80-99) Mean Corpuscular Hemoglobin 29.2 PG (27.0-31.0) Mean Corpuscular Hemoglobin Concent 32.5 G/DL (32.0-36.0) Red Cell Distribution Width 14.5 % (11.6-14.8) Platelet Count 204 K/UL (150-450) Mean Platelet Volume 10.3 FL (6.5-10.1) H Neutrophils (%) (Auto) 74.3 % (45.0-75.0) Lymphocytes (%) (Auto) 16.9 % (20.0-45.0) L Monocytes (%) (Auto) 7.1 % (1.0-10.0) Eosinophils (%) (Auto) 0.8 % (0.0-3.0) Basophils (%) (Auto) 0.9 % (0.0-2.0) Sodium Level 144 MMOL/L (136-145) Potassium Level 3.3 MMOL/L (3.5-5.1) L Chloride Level 109 MMOL/L (98-107) H Carbon Dioxide Level 26 MMOL/L (21-32) Anion Gap 9 mmol/L (5-15) Blood Urea Nitrogen 5 mg/dL (7-18) L Creatinine 1.2 MG/DL (0.55-1.30) Estimat Glomerular Filtration Rate 58.7 mL/min (>60) Glucose Level 115 MG/DL (74-106) H Calcium Level 8.6 MG/DL (8.5-10.1) Phosphorus Level 3.2 MG/DL (2.5-4.9) Magnesium Level 2.1 MG/DL (1.8-2.4) Total Bilirubin 0.5 MG/DL (0.2-1.0) Direct Bilirubin 0.2 MG/DL (0.0-0.3) Aspartate Amino Transf (AST/SGOT) 49 U/L (15-37) H Alanine Aminotransferase (ALT/SGPT) 37 U/L (12-78) Alkaline Phosphatase 226 U/L (46-116) H Total Protein 7.1 G/DL (6.4-8.2) Albumin 1.9 G/DL (3.4-5.0) L Vancomycin Level Trough 12.8 ug/mL (5.0-12.0) H Test 07/08/20 12:18 POC Whole Blood Glucose Pending Current Medications Medications (Trade) Dose Ordered Sig/Ankush Route PRN Reason Start Time Stop Time Status Last Admin Dose Admin Acetaminophen (Tylenol) 650 mg Q4H PRN ORAL Temp >100.5 07/03/20 20:30 08/02/20 20:29 Albuterol/ Ipratropium (Albuterol/ Ipratropium) 3 ml Q4H PRN HHN Shortness of Breath 07/03/20 20:30 07/08/20 20:29 Dextrose (Dextrose 50%) 50 ml Q30M PRN IV Hypoglycemia 07/03/20 22:45 10/01/20 22:44 Heparin Sodium (Porcine) (Heparin 5000 units/ml) 5,000 units EVERY 12 HOURS SUBQ 07/03/20 21:00 08/17/20 20:59 07/08/20 09:51 Insulin Aspart (NovoLOG) BEFORE MEALS AND HS SUBQ 07/04/20 06:30 10/02/20 06:29 07/04/20 06:23 Nitroglycerin (Ntg) 0.4 mg Q5M PRN SL Prn Chest Pain 07/03/20 20:30 08/02/20 20:29 Ondansetron HCl (Zofran) 4 mg Q6H PRN IVP Nausea & Vomiting 07/03/20 20:30 08/02/20 20:29 Polyethylene Glycol (Miralax) 17 gm DAILYPRN PRN ORAL Constipation 07/03/20 20:30 08/02/20 20:29 Potassium Chloride (K-Dur) 20 meq TWICE A DAY NG 07/08/20 13:00 10/06/20 12:59 07/08/20 13:08 Promethazine HCl/ Codeine (Phenergan with Codeine) 5 ml Q4H PRN ORAL For Cough 07/03/20 20:30 08/02/20 20:29 Tamsulosin HCl (Flomax) 0.4 mg DAILY ORAL 07/04/20 09:00 08/03/20 08:59 07/08/20 09:50 Temazepam (Restoril) 15 mg HSPRN PRN ORAL Insomnia 07/03/20 20:30 07/10/20 20:29 Vancomycin HCl ([facility] pharmacy to dose) 1 ea DAILY PRN MISC Per rx protocol 07/03/20 20:30 08/02/20 20:29 Vancomycin HCl 1 gm/Sodium Chloride 275 ml @ 183.708 mls/hr Q24H IVPB 07/08/20 10:00 07/13/20 09:59 07/08/20 09:55 Ashley Cho M.D. Jul 08, 2020 14:04
--- NOTE | 2020-07-08 15:46 | NUR ---
CASE MANAGEMENT:REVIEW SI; HYPOXIA. PNA. 98.2 84 20 150/78 96% 4L NC K+ 3.3 AST 49 ALP 226 ALB 1.9 IS;K PHOSPHATE IV IVF D5 K-DUR NG BID VANCOMYCIN IV HEPARIN SUBQ TIFFANIE STATUS DCP;FROM SHAY IGNACIO
[2020-07-08 16:00] VITALS: BP 133/71
--- NOTE | 2020-07-08 19:20 | NUR ---
HAND-OFF: Report given to .COLLINS TANNER.
--- NOTE | 2020-07-08 19:20 | NUR ---
NURSE NOTES: pt report received from ARCELIA Glasgow RN. pt remains stable. pt is alert and oriented times 1, pt is confused. pt is on stone fabricator showing NSR, controlled. doctors are aware. pt is on 4L NC, sating 98% O2, no acute signs symptoms of resp distress. pt bed is low, locked, armed, call light within reach, will follow plan of care.
[2020-07-08 20:00] VITALS: BP 128/73
--- NOTE | 2020-07-08 22:00 | NUR ---
NURSE NOTES: pt repositioned, and turned. assessed NG tube is able to flush, flushed 20cc of water with no complications,. no residue noted.
[2020-07-09] VITALS: BP 115/63
--- NOTE | 2020-07-09 | NUR ---
NURSE NOTES: readjusted pts nasal canula, replaced pts tube feeding, and TKO NS bags. vital signs stable at the moment, pt does not appear to be in distress.
--- NOTE | 2020-07-09 00:20 | NUR ---
NURSE NOTES: deep suctioned pt. thick white sputum noted, pink tinged. pt is satign 98% O2 post deep suction. vital signs stable. Addendum: 07/10/20 at 0109 by ELIF RASHID RN WRONG TIME. Addendum: 07/10/20 at 0110 by ELIF RASHID RN WRONG TIME AND DATE.
--- NOTE | 2020-07-09 02:30 | NUR ---
NURSE NOTES: pt turned cleaned and repositioned. times 1 medium stool noted. stool appears to be brown, and formed.
[2020-07-09 04:00] VITALS: BP 129/73
--- NOTE | 2020-07-09 04:20 | NUR ---
NURSE NOTES: deep suctioned pt. thick white sputum noted. repositioned Nasal canua. pt sating at 96% O2.
[2020-07-09 04:37] LABS: BASOPHILS % (AUTO) 0.9 % (0.0-2.0); EOSINOPHILS % (AUTO) 0.8 % (0.0-3.0); HEMATOCRIT 37.1 % (42.0-52.0); HEMOGLOBIN 12.5 G/DL (14.2-18.0); LYMPHOCYTES % (AUTO) 27.6 % (20.0-45.0); MEAN CORPUSCULAR VOLUME 90 FL (80-99); MONOCYTES % (AUTO) 7.6 % (1.0-10.0); NEUTROPHILS % (AUTO) 63.1 % (45.0-75.0); PLATELET COUNT 238 K/UL (150-450); RED BLOOD COUNT 4.12 M/UL (4.70-6.10); RED CELL DISTRIBUTION WIDTH 14.5 % (11.6-14.8); WHITE BLOOD COUNT 10.8 K/UL (4.8-10.8)
[2020-07-09 05:06] LABS: ALANINE AMINOTRANSFERASE 41 U/L (12-78); ALBUMIN 1.8 G/DL (3.4-5.0); ALBUMIN/GLOBULIN RATIO 0.3 (1.0-2.7); ALKALINE PHOSPHATASE 242 U/L (46-116); ANION GAP 9 mmol/L (5-15); ASPARTATE AMINO TRANSFERASE 52 U/L (15-37); BILIRUBIN,TOTAL 0.4 MG/DL (0.2-1.0); BLOOD UREA NITROGEN 6 mg/dL (7-18); CALCIUM 9.2 MG/DL (8.5-10.1); CARBON DIOXIDE 25 MMOL/L (21-32); CHLORIDE 111 MMOL/L (98-107); CREATININE 1.1 MG/DL (0.55-1.30); PHOSPHORUS 3.3 MG/DL (2.5-4.9); POTASSIUM 3.9 MMOL/L (3.5-5.1); SODIUM 144 MMOL/L (136-145)
[2020-07-09] MEDS: NovoLOG Insulin Flexpen SUBQ SCH ×4 (06:30→21:00)
--- NOTE | 2020-07-09 07:30 | NUR ---
NURSE HAND-OFF REPORT: Important Events on Shift:[STABLE] Patient Status: [STABLE] Diet: [STABLE] Pending Orders: [NA] Pending Results/Labs:[NA] Pending MD notification:[NA] Latest Vital Signs: Temperature 98.0 , Pulse 111 , B/P 129 /73 , Respiratory Rate 20 , O2 SAT 99 , Nasal Cannula, O2 Flow Rate 4.0 . Vital Sign Comment: [Stable] EKG Rhythm: Sinus Tachycardia Rhythm change?: N MD Notified?: Y -Left Message for Dr. Hodges, No cardio on the case. MD Response: Latest Gonzalez Fall Score: 50 Fall Risk: High Risk Safety Measures: Call light Within Reach, Bed Alarm Zone 1, Side Rails Side Rails x3, Bed position Low and Locked. Fall Precautions: Yellow Socks Yellow Gown Door Sign Patient Fall Education Report given to [JONATAN RN].
--- NOTE | 2020-07-09 07:35 | NUR ---
NURSE NOTES: Report received from Yousif Coleman RN.Pt asleep noted no resp distress,on 100% NRB Mask ,O2 sat 98%,no signs of pain or discomfort S-Tach Glucerna 1.2 at 30 ml/hr,no residual noted,Wiley cath draining yellow urine,skin very warm ,pt with low grade fever T99 AX,cold compress applied to forehead,SR up x2 HOB elevated ,bed lock in lowest position,will continue with POC.
[2020-07-09 08:00] VITALS: BP 110/70
--- NOTE | 2020-07-09 08:29 | NUR ---
RADIOLOGY DEPT., CHEST X-RAY DONE.-P.DYE
[2020-07-09] MEDS: Tamsulosin 0.4mg cap ORAL SCH (09:26)
[2020-07-09] MEDS: Heparin 5000 units/ml inj SUBQ SCH ×2 (09:28→21:13)
[2020-07-09] MEDS: Vancomycin 1 GM in NS 275 ML IVPB SCH (09:29)
--- NOTE | 2020-07-09 10:00 | NUR ---
NURSE NOTES: Oral care done,pt with on and off productive cough,with audible rales heard,,suctioned orally to large amount of thick al secretions.
--- NOTE | 2020-07-09 10:19 | Diagnostic Imaging Report ---
Indication: Dyspnea Technique: One view of the chest Comparison: 07/07/2020 Findings: Left mid and lower lung infiltrate, right basilar infiltrate persists, unchanged. Normal heart size. Interim placement of a nasogastric tube, tip projected at the level gastric antrum. Right shoulder prosthesis is again demonstrated. Impression: Satisfactory nasogastric intubation Otherwise unchanged over 2 days
--- NOTE | 2020-07-09 10:30 | NUR ---
NURSE NOTES: Resp therapist at bedside,titrated O2 to 50% Venturi Mask at 10 L
--- NOTE | 2020-07-09 10:33 | Pulmonolgy Critical Care Note ---
Critical Care - Asmt/Plan Problems: (1) Multifocal pneumonia (2) 2019 novel coronavirus disease (COVID-19) (3) Acute encephalopathy (4) Severe sepsis (5) Alzheimer's dementia (6) HTN (hypertension) (7) History of CVA (cerebrovascular accident) (8) BPH (benign prostatic hyperplasia) Respiratory: monitor respiratory rate, adjust FIO2 Cardiac: continue to monitor HR/BP Renal: F/U I&O, check electrolytes Infectious Disease: check cultures, continue antibiotics Gastrointestinal: continue feedings/current rate Endocrine: monitor blood sugar Hematologic: transfuse if hgb<8.5 Neurologic: PRN Ativan, PRN Morphine, keep patient comfortable Affect: PRN ativan Notes Reviewed: apparel rental clerk, cardio Discussed with: nurses, consultants, catalytic case operatoraccounting manager assistant controller - Objective Last 24 Hour Vital Signs Date Time Temp Pulse Resp B/P (MAP) Pulse Ox O2 Delivery O2 Flow Rate FiO2 07/09/20 04:00 98.0 122 20 129/73 (91) 99 07/09/20 04:00 4.0 07/09/20 04:00 111 07/09/20 04:00 Nasal Cannula 4.0 07/09/20 00:00 Nasal Cannula 4.0 07/09/20 00:00 98.4 87 19 115/63 (80) 98 07/09/20 00:00 76 07/09/20 00:00 4.0 07/08/20 20:05 96 Nasal Cannula 4.0 36 07/08/20 20:00 98.1 87 19 128/73 (91) 97 87 07/08/20 20:00 Nasal Cannula 4.0 07/08/20 20:00 4.0 07/08/20 20:00 71 07/08/20 16:00 98.2 89 19 133/71 (91) 95 89 07/08/20 16:00 Nasal Cannula 4.0 07/08/20 16:00 4.0 07/08/20 15:40 114 07/08/20 12:00 71 07/08/20 12:00 4.0 07/08/20 12:00 Nasal Cannula 4.0 07/08/20 12:00 97.9 79 20 107/76 (86) 97 79 Status: sedated Condition: critical HEENT: atraumatic, normocephalic Neck: full ROM Lungs: rales, rhonchi Heart: HR/BP stable Abdomen: soft, non-tender Extremities: no C/C/E Micro: Microbiology Date/Time Source Procedure Growth Status 07/06/20 12:39 Nasopharynx SARS-CoV-2 RdRp Gene Assay - Final Complete Accucheck: 133 Critical Care - Subjective ROS Limited/Unobtainable: Yes Condition: critical EKG Rhythm: Sinus Rhythm FI02: 36 Sputum Amount: Small Tube Feeding Amount: 30 I&O: Intake and Output 07/08/20 07/09/20 19:00 07:00 Intake Total 630 ml 330 ml Output Total 751 ml 800 ml Balance -121 ml -470 ml Free Water 300 ml Tube Feeding 330 ml 330 ml Output Urine Total 750 ml 800 ml Stool Total 1 ml # Bowel Movements 1 CXR: Left mid and lower lung infiltrate, right basilar infiltrate persists, unchanged. Labs: Laboratory Tests Test 07/08/20 12:18 07/08/20 17:22 07/08/20 20:26 07/09/20 03:56 POC Whole Blood Glucose Pending Pending 103 MG/DL (74-106) White Blood Count 10.8 K/UL (4.8-10.8) Red Blood Count 4.12 M/UL (4.70-6.10) L Hemoglobin 12.5 G/DL (14.2-18.0) L Hematocrit 37.1 % (42.0-52.0) L Mean Corpuscular Volume 90 FL (80-99) Mean Corpuscular Hemoglobin 30.4 PG (27.0-31.0) Mean Corpuscular Hemoglobin Concent 33.7 G/DL (32.0-36.0) Red Cell Distribution Width 14.5 % (11.6-14.8) Platelet Count 238 K/UL (150-450) Mean Platelet Volume 10.5 FL (6.5-10.1) H Neutrophils (%) (Auto) 63.1 % (45.0-75.0) Lymphocytes (%) (Auto) 27.6 % (20.0-45.0) Monocytes (%) (Auto) 7.6 % (1.0-10.0) Eosinophils (%) (Auto) 0.8 % (0.0-3.0) Basophils (%) (Auto) 0.9 % (0.0-2.0) Erythrocyte Sedimentation Rate 88 MM/HR (0-20) H Sodium Level 144 MMOL/L (136-145) Potassium Level 3.9 MMOL/L (3.5-5.1) Chloride Level 111 MMOL/L (98-107) H Carbon Dioxide Level 25 MMOL/L (21-32) Anion Gap 9 mmol/L (5-15) Blood Urea Nitrogen 6 mg/dL (7-18) L Creatinine 1.1 MG/DL (0.55-1.30) Estimat Glomerular Filtration Rate > 60 mL/min (>60) Glucose Level 150 MG/DL (74-106) H Calcium Level 9.2 MG/DL (8.5-10.1) Phosphorus Level 3.3 MG/DL (2.5-4.9) Magnesium Level 2.1 MG/DL (1.8-2.4) Total Bilirubin 0.4 MG/DL (0.2-1.0) Aspartate Amino Transf (AST/SGOT) 52 U/L (15-37) H Alanine Aminotransferase (ALT/SGPT) 41 U/L (12-78) Alkaline Phosphatase 242 U/L (46-116) H C-Reactive Protein, Quantitative 6.4 mg/dL (0.00-0.90) H Total Protein 7.0 G/DL (6.4-8.2) Albumin 1.8 G/DL (3.4-5.0) L Globulin 5.2 g/dL Albumin/Globulin Ratio 0.3 (1.0-2.7) L Test 07/09/20 06:29 POC Whole Blood Glucose 133 MG/DL (74-106) H Kya Carreno MD Jul 09, 2020 10:33
--- NOTE | 2020-07-09 11:56 | Nephrology Progress Note ---
Assessment/Plan Problem List: (1) Dehydration (2) MELANIE (acute kidney injury) (3) Renal failure (ARF), acute on chronic (4) Hypoxia (5) Acute encephalopathy (6) Electrolyte imbalance Assessment 79-year-old male is admitted with acute hypoxic respiratory failure most likely secondary to pneumonia and sepsis, UTI. Acute on chronic renal failure Dehydration Electrolyte imbalances, hypernatremia Hypoalbuminemia Diabetes type 2 History of congestive heart failure Hypertension Hyperlipemia Alzheimer's Previous COVID-19 infection in May 2020 Plan July 09: Labs reviewed. Renal parameters stable. Continue per consultants. July 08: Labs reviewed. Potassium via NG tube ordered. IV fluids stopped. Continue per consultants. July 07: Labs reviewed. Low potassium and low phosphorus replaced. Continue per consultants. Remains stable from renal standpoint of view. July 06: Patient remains n.p.o. IV fluid down to 50 cc an hour. Potassium supplement intravenously ordered. Continue per consultants. Previously: Patient is n.p.o., will continue on IV fluid of D5W 75 cc an hour We will monitor electrolytes and renal parameters Avoid nephrotoxic's Start p.o. when he clears by speech therapist, meanwhile aspiration precautions Keep the blood pressure and blood sugar in check Per orders Subjective ROS Limited/Unobtainable: No Constitutional: Reports: malaise, weakness Objective Objective Last 24 Hour Vital Signs Date Time Temp Pulse Resp B/P (MAP) Pulse Ox O2 Delivery O2 Flow Rate FiO2 07/09/20 10:30 10.0 50 07/09/20 08:00 Nasal Cannula 4.0 07/09/20 08:00 15.0 100 07/09/20 08:00 118 07/09/20 08:00 99.0 103 20 110/70 (83) 97 07/09/20 04:00 98.0 122 20 129/73 (91) 99 07/09/20 04:00 4.0 07/09/20 04:00 111 07/09/20 04:00 Nasal Cannula 4.0 07/09/20 00:00 Nasal Cannula 4.0 07/09/20 00:00 98.4 87 19 115/63 (80) 98 07/09/20 00:00 76 07/09/20 00:00 4.0 07/08/20 20:05 96 Nasal Cannula 4.0 36 07/08/20 20:00 98.1 87 19 128/73 (91) 97 87 07/08/20 20:00 Nasal Cannula 4.0 07/08/20 20:00 4.0 07/08/20 20:00 71 07/08/20 16:00 98.2 89 19 133/71 (91) 95 89 07/08/20 16:00 Nasal Cannula 4.0 07/08/20 16:00 4.0 07/08/20 15:40 114 07/08/20 12:00 71 07/08/20 12:00 4.0 07/08/20 12:00 Nasal Cannula 4.0 07/08/20 12:00 97.9 79 20 107/76 (86) 97 79 Intake and Output 07/08/20 07/09/20 19:00 07:00 Intake Total 630 ml 330 ml Output Total 751 ml 800 ml Balance -121 ml -470 ml Free Water 300 ml Tube Feeding 330 ml 330 ml Output Urine Total 750 ml 800 ml Stool Total 1 ml # Bowel Movements 1 Current Medications Medications (Trade) Dose Ordered Sig/Ankush Route PRN Reason Start Time Stop Time Status Last Admin Dose Admin Acetaminophen (Tylenol) 650 mg Q4H PRN ORAL Temp >100.5 07/03/20 20:30 08/02/20 20:29 Dextrose (Dextrose 50%) 50 ml Q30M PRN IV Hypoglycemia 07/03/20 22:45 10/01/20 22:44 Heparin Sodium (Porcine) (Heparin 5000 units/ml) 5,000 units EVERY 12 HOURS SUBQ 07/03/20 21:00 08/17/20 20:59 07/09/20 09:28 Insulin Aspart (NovoLOG) BEFORE MEALS AND HS SUBQ 07/04/20 06:30 10/02/20 06:29 07/09/20 11:50 Nitroglycerin (Ntg) 0.4 mg Q5M PRN SL Prn Chest Pain 07/03/20 20:30 08/02/20 20:29 Ondansetron HCl (Zofran) 4 mg Q6H PRN IVP Nausea & Vomiting 07/03/20 20:30 08/02/20 20:29 Polyethylene Glycol (Miralax) 17 gm DAILYPRN PRN ORAL Constipation 07/03/20 20:30 08/02/20 20:29 Potassium Chloride (K-Dur) 20 meq TWICE A DAY NG 07/08/20 13:00 10/06/20 12:59 07/09/20 09:26 Promethazine HCl/ Codeine (Phenergan with Codeine) 5 ml Q4H PRN ORAL For Cough 07/03/20 20:30 08/02/20 20:29 Tamsulosin HCl (Flomax) 0.4 mg DAILY ORAL 07/04/20 09:00 08/03/20 08:59 07/09/20 09:26 Temazepam (Restoril) 15 mg HSPRN PRN ORAL Insomnia 07/03/20 20:30 07/10/20 20:29 Vancomycin HCl ([facility] pharmacy to dose) 1 ea DAILY PRN MISC Per rx protocol 07/03/20 20:30 08/02/20 20:29 Vancomycin HCl 1 gm/Sodium Chloride 275 ml @ 183.708 mls/hr Q24H IVPB 07/08/20 10:00 07/13/20 09:59 07/09/20 09:29 Laboratory Tests 07/08/20 12:18: POC Whole Blood Glucose [Pending] 07/08/20 17:22: POC Whole Blood Glucose [Pending] 07/08/20 20:26: POC Whole Blood Glucose 103 07/09/20 03:56: White Blood Count 10.8, Red Blood Count 4.12L, Hemoglobin 12.5L, Hematocrit 37.1L, Mean Corpuscular Volume 90, Mean Corpuscular Hemoglobin 30.4, Mean Corpuscular Hemoglobin Concent 33.7, Red Cell Distribution Width 14.5, Platelet Count 238, Mean Platelet Volume 10.5H, Neutrophils (%) (Auto) 63.1, Lymphocytes (%) (Auto) 27.6, Monocytes (%) (Auto) 7.6, Eosinophils (%) (Auto) 0.8, Basophils (%) (Auto) 0.9, Erythrocyte Sedimentation Rate 88H, Sodium Level 144, Potassium Level 3.9, Chloride Level 111H, Carbon Dioxide Level 25, Anion Gap 9, Blood Urea Nitrogen 6L, Creatinine 1.1, Estimat Glomerular Filtration Rate > 60, Glucose Level 150H, Calcium Level 9.2, Phosphorus Level 3.3, Magnesium Level 2.1, Total Bilirubin 0.4, Aspartate Amino Transf (AST/SGOT) 52H, Alanine Aminotransferase (ALT/SGPT) 41, Alkaline Phosphatase 242H, C-Reactive Protein, Quantitative 6.4H, Total Protein 7.0, Albumin 1.8L, Globulin 5.2, Albumin/Globulin Ratio 0.3L 07/09/20 06:29: POC Whole Blood Glucose 133H 07/09/20 11:39: POC Whole Blood Glucose [Pending] Height (Feet): 5 Height (Inches): 4.00 Weight (Pounds): 130 EENT: other - On nasal cannula Cardiovascular: tachycardia Respiratory/Chest: decreased breath sounds Abdomen: distended Tino Connors MD Jul 09, 2020 11:56
[2020-07-09 12:00] VITALS: BP 110/70
--- NOTE | 2020-07-09 12:10 | NUR ---
RD ASSESSMENT & RECOMMENDATIONS SEE CARE ACTIVITY FOR COMPLETE ASSESSMENT DAILY ESTIMATED NEEDS: Needs based on DM, wound, pulmonary, cardiac 59.5kg 25-35 kcals/kg 4779-8657 total kcals 1.25-1.5 g protein/kg 74-89 g total protein 25-30 mL/kg 5388-8471 total fluid mLs NUTRITION DIAGNOSIS: * Swallowing difficulty R/T dysphagia as evidenced by PSYCHIATRIC LPN eval, recs for NGT feeds. * Increased kcal and pro needs r/t wound healing as evidenced by sacral pressure injury stage 2. ENTERAL NUTRITION RECOMMENDATIONS: Glucerna 1.2 goal of 60ml/hr x24 hrs to provide 1440ml, 1728 kcal, 86g pro, 1159ml free H2O - Obtain GI access, initiate Glucerna 1.2 @low rate 20ml/hr for 6 hrs. - Advance 10ml/hr q4-6 hrs to goal. - Flush per MD/ HOB over 30 degrees. ADDITIONAL RECOMMENDATIONS: * Calibrated bedscale wt for accurate CBW * TF recs as above if part of POC * Replete lytes as needed * Pt is NPO from adm, rec non oral feeds to meet est kcal and pro needs * Wound care: when tolerating TF at goal add ADALBERTO BID . .
--- NOTE | 2020-07-09 13:00 | NUR ---
NURSE NOTES: Dr heck at bedside ,updated re pt's status,ordered to transfer pt to Telemetry.
--- NOTE | 2020-07-09 13:13 | Infectious Diseases Prog Note ---
Assessment/Plan 79yo M with: Fever at SNF, 100.2 max here; SP Leukocytosis to 12- SP Acute hypoxic resp failure, on NRB mask> 4l NC Pneumonia- hx of COVID19 PNA 05/20/2007/03 BCx NTD UA 15-20 WBC, UCx Neg 07/03 COVID rapid neg; 07/06 rapid COVID PCR + (from prior infection)- not new infection Flu A/B neg CXR: L pna Resp cx MRSA CKD, Cr 1.7 [facility] resident (ed [facility]) Non-verbal VRE and MRSA colonized Plan: Cont vanco #7/10 for MRSA PNA -07/06 SP Cefepime #4 -07/04 SP Flagyl # Monitor CBC/CMP Monitor resp status Monitor temp curve and hemodynamics off COVID isolation- positive covid test represents residual virus from infection on 05/2020 D/w RN and pharmacy staff. Thank you for this consult. [facility] will continue to follow. Subjective Allergies: Coded Allergies: No Known Allergies (Unverified , 04/30/12) afebrile no leukocytosis Bcx Neg Objective Last 24 Hour Vital Signs Date Time Temp Pulse Resp B/P (MAP) Pulse Ox O2 Delivery O2 Flow Rate FiO2 07/09/20 10:30 10.0 50 07/09/20 08:00 Nasal Cannula 4.0 07/09/20 08:00 15.0 100 07/09/20 08:00 118 07/09/20 08:00 99.0 103 20 110/70 (83) 97 07/09/20 04:00 98.0 122 20 129/73 (91) 99 07/09/20 04:00 4.0 07/09/20 04:00 111 07/09/20 04:00 Nasal Cannula 4.0 07/09/20 00:00 Nasal Cannula 4.0 07/09/20 00:00 98.4 87 19 115/63 (80) 98 07/09/20 00:00 76 07/09/20 00:00 4.0 07/08/20 20:05 96 Nasal Cannula 4.0 36 07/08/20 20:00 98.1 87 19 128/73 (91) 97 87 07/08/20 20:00 Nasal Cannula 4.0 07/08/20 20:00 4.0 07/08/20 20:00 71 07/08/20 16:00 98.2 89 19 133/71 (91) 95 89 07/08/20 16:00 Nasal Cannula 4.0 07/08/20 16:00 4.0 07/08/20 15:40 114 Height (Feet): 5 Height (Inches): 4.00 Weight (Pounds): 130 Gen: NAD HEENT: NCAT CV: RRR Pulm: Rhonchi anteriorly, lots of oral secretions Abd: Soft, NTND Ext: No c/c/e Neuro: Awake Laboratory Tests Test 07/08/20 17:22 07/08/20 20:26 07/09/20 03:56 07/09/20 06:29 POC Whole Blood Glucose Pending 103 MG/DL (74-106) 133 MG/DL (74-106) H White Blood Count 10.8 K/UL (4.8-10.8) Red Blood Count 4.12 M/UL (4.70-6.10) L Hemoglobin 12.5 G/DL (14.2-18.0) L Hematocrit 37.1 % (42.0-52.0) L Mean Corpuscular Volume 90 FL (80-99) Mean Corpuscular Hemoglobin 30.4 PG (27.0-31.0) Mean Corpuscular Hemoglobin Concent 33.7 G/DL (32.0-36.0) Red Cell Distribution Width 14.5 % (11.6-14.8) Platelet Count 238 K/UL (150-450) Mean Platelet Volume 10.5 FL (6.5-10.1) H Neutrophils (%) (Auto) 63.1 % (45.0-75.0) Lymphocytes (%) (Auto) 27.6 % (20.0-45.0) Monocytes (%) (Auto) 7.6 % (1.0-10.0) Eosinophils (%) (Auto) 0.8 % (0.0-3.0) Basophils (%) (Auto) 0.9 % (0.0-2.0) Erythrocyte Sedimentation Rate 88 MM/HR (0-20) H Sodium Level 144 MMOL/L (136-145) Potassium Level 3.9 MMOL/L (3.5-5.1) Chloride Level 111 MMOL/L (98-107) H Carbon Dioxide Level 25 MMOL/L (21-32) Anion Gap 9 mmol/L (5-15) Blood Urea Nitrogen 6 mg/dL (7-18) L Creatinine 1.1 MG/DL (0.55-1.30) Estimat Glomerular Filtration Rate > 60 mL/min (>60) Glucose Level 150 MG/DL (74-106) H Calcium Level 9.2 MG/DL (8.5-10.1) Phosphorus Level 3.3 MG/DL (2.5-4.9) Magnesium Level 2.1 MG/DL (1.8-2.4) Total Bilirubin 0.4 MG/DL (0.2-1.0) Aspartate Amino Transf (AST/SGOT) 52 U/L (15-37) H Alanine Aminotransferase (ALT/SGPT) 41 U/L (12-78) Alkaline Phosphatase 242 U/L (46-116) H C-Reactive Protein, Quantitative 6.4 mg/dL (0.00-0.90) H Total Protein 7.0 G/DL (6.4-8.2) Albumin 1.8 G/DL (3.4-5.0) L Globulin 5.2 g/dL Albumin/Globulin Ratio 0.3 (1.0-2.7) L Test 07/09/20 11:39 POC Whole Blood Glucose Pending Current Medications Medications (Trade) Dose Ordered Sig/Ankush Route PRN Reason Start Time Stop Time Status Last Admin Dose Admin Acetaminophen (Tylenol) 650 mg Q4H PRN ORAL Temp >100.5 07/03/20 20:30 08/02/20 20:29 Dextrose (Dextrose 50%) 50 ml Q30M PRN IV Hypoglycemia 07/03/20 22:45 10/01/20 22:44 Heparin Sodium (Porcine) (Heparin 5000 units/ml) 5,000 units EVERY 12 HOURS SUBQ 07/03/20 21:00 08/17/20 20:59 07/09/20 09:28 Insulin Aspart (NovoLOG) BEFORE MEALS AND HS SUBQ 07/04/20 06:30 10/02/20 06:29 07/09/20 11:50 Nitroglycerin (Ntg) 0.4 mg Q5M PRN SL Prn Chest Pain 07/03/20 20:30 08/02/20 20:29 Ondansetron HCl (Zofran) 4 mg Q6H PRN IVP Nausea & Vomiting 07/03/20 20:30 08/02/20 20:29 Polyethylene Glycol (Miralax) 17 gm DAILYPRN PRN ORAL Constipation 07/03/20 20:30 08/02/20 20:29 Potassium Chloride (K-Dur) 20 meq TWICE A DAY NG 07/08/20 13:00 10/06/20 12:59 07/09/20 09:26 Promethazine HCl/ Codeine (Phenergan with Codeine) 5 ml Q4H PRN ORAL For Cough 07/03/20 20:30 08/02/20 20:29 Tamsulosin HCl (Flomax) 0.4 mg DAILY ORAL 07/04/20 09:00 08/03/20 08:59 07/09/20 09:26 Temazepam (Restoril) 15 mg HSPRN PRN ORAL Insomnia 07/03/20 20:30 07/10/20 20:29 Vancomycin HCl (Vanco pharmacy to dose) 1 ea DAILY PRN MISC Per rx protocol 07/03/20 20:30 08/02/20 20:29 Vancomycin HCl 1 gm/Sodium Chloride 275 ml @ 183.708 mls/hr Q24H IVPB 07/08/20 10:00 07/13/20 09:59 07/09/20 09:29 Ashley Cho M.D. Jul 09, 2020 13:13
--- NOTE | 2020-07-09 14:53 | Cardiac Electrophysiology PN ---
Assessment/Plan Assessment/Plan 1. Accelerated junctional rhythm. Not bradycardic. Ruled out for [place] Echocardiogram showed ejection fraction of 55%. 2. Sepsis, on broad-spectrum IV antibiotic. 3. Respiratory failure, on antibiotic. 4. Dehydration. 5. Acute renal failure. 6. Electrolyte imbalance. 7. History of congestive heart failure, but echocardiogram showed normal left ventricular systolic function. 8. History of previous COVID infection in May 2020 and Active Covid now in isolation 9. Dementia. DW RN Subjective Subjective In SR in NAD in Covid isolation. Objective Last 24 Hour Vital Signs Date Time Temp Pulse Resp B/P (MAP) Pulse Ox O2 Delivery O2 Flow Rate FiO2 07/09/20 12:00 99.3 103 23 110/70 (83) 95 07/09/20 12:00 Nasal Cannula 4.0 07/09/20 10:30 10.0 50 07/09/20 08:00 Nasal Cannula 4.0 07/09/20 08:00 15.0 100 07/09/20 08:00 118 07/09/20 08:00 99.0 103 20 110/70 (83) 97 07/09/20 04:00 98.0 122 20 129/73 (91) 99 07/09/20 04:00 4.0 07/09/20 04:00 111 07/09/20 04:00 Nasal Cannula 4.0 07/09/20 00:00 Nasal Cannula 4.0 07/09/20 00:00 98.4 87 19 115/63 (80) 98 07/09/20 00:00 76 07/09/20 00:00 4.0 07/08/20 20:05 96 Nasal Cannula 4.0 36 07/08/20 20:00 98.1 87 19 128/73 (91) 97 87 07/08/20 20:00 Nasal Cannula 4.0 07/08/20 20:00 4.0 07/08/20 20:00 71 07/08/20 16:00 98.2 89 19 133/71 (91) 95 89 07/08/20 16:00 Nasal Cannula 4.0 07/08/20 16:00 4.0 07/08/20 15:40 114 Intake and Output 07/08/20 07/09/20 19:00 07:00 Intake Total 630 ml 330 ml Output Total 751 ml 800 ml Balance -121 ml -470 ml Free Water 300 ml Tube Feeding 330 ml 330 ml Output Urine Total 750 ml 800 ml Stool Total 1 ml # Bowel Movements 1 Laboratory Tests Test 07/08/20 17:22 07/08/20 20:26 07/09/20 03:56 07/09/20 06:29 POC Whole Blood Glucose Pending 103 MG/DL (74-106) 133 MG/DL (74-106) H White Blood Count 10.8 K/UL (4.8-10.8) Red Blood Count 4.12 M/UL (4.70-6.10) L Hemoglobin 12.5 G/DL (14.2-18.0) L Hematocrit 37.1 % (42.0-52.0) L Mean Corpuscular Volume 90 FL (80-99) Mean Corpuscular Hemoglobin 30.4 PG (27.0-31.0) Mean Corpuscular Hemoglobin Concent 33.7 G/DL (32.0-36.0) Red Cell Distribution Width 14.5 % (11.6-14.8) Platelet Count 238 K/UL (150-450) Mean Platelet Volume 10.5 FL (6.5-10.1) H Neutrophils (%) (Auto) 63.1 % (45.0-75.0) Lymphocytes (%) (Auto) 27.6 % (20.0-45.0) Monocytes (%) (Auto) 7.6 % (1.0-10.0) Eosinophils (%) (Auto) 0.8 % (0.0-3.0) Basophils (%) (Auto) 0.9 % (0.0-2.0) Erythrocyte Sedimentation Rate 88 MM/HR (0-20) H Sodium Level 144 MMOL/L (136-145) Potassium Level 3.9 MMOL/L (3.5-5.1) Chloride Level 111 MMOL/L (98-107) H Carbon Dioxide Level 25 MMOL/L (21-32) Anion Gap 9 mmol/L (5-15) Blood Urea Nitrogen 6 mg/dL (7-18) L Creatinine 1.1 MG/DL (0.55-1.30) Estimat Glomerular Filtration Rate > 60 mL/min (>60) Glucose Level 150 MG/DL (74-106) H Calcium Level 9.2 MG/DL (8.5-10.1) Phosphorus Level 3.3 MG/DL (2.5-4.9) Magnesium Level 2.1 MG/DL (1.8-2.4) Total Bilirubin 0.4 MG/DL (0.2-1.0) Aspartate Amino Transf (AST/SGOT) 52 U/L (15-37) H Alanine Aminotransferase (ALT/SGPT) 41 U/L (12-78) Alkaline Phosphatase 242 U/L (46-116) H C-Reactive Protein, Quantitative 6.4 mg/dL (0.00-0.90) H Total Protein 7.0 G/DL (6.4-8.2) Albumin 1.8 G/DL (3.4-5.0) L Globulin 5.2 g/dL Albumin/Globulin Ratio 0.3 (1.0-2.7) L Test 07/09/20 11:39 POC Whole Blood Glucose Pending Objective HEAD AND NECK: No JVD. LUNGS: Coarse rhonchi. CARDIOVASCULAR: Irregular S1 and S2 with no gallop. ABDOMEN: Soft. EXTREMITIES: No pitting edema. Klever Matt MD Jul 09, 2020 14:53
[2020-07-09 16:00] VITALS: BP 112/64
--- NOTE | 2020-07-09 16:00 | NUR ---
NURSE NOTES: Bed bath given ,pt with BM to small amount of formed brown stools,kept dry and clean turned and repositioned to sides.
--- NOTE | 2020-07-09 18:00 | NUR ---
NURSE NOTES: pt resting in bed asleep no resp distress presented,oral secretions suctioned PRN,remains on soft wrist restraints bilat.
--- NOTE | 2020-07-09 19:18 | Internal Med Progress Note ---
Subjective Physician Name Ahsan Hodges Attending Physician Ahsan Hodges MD Current Medications Medications (Trade) Dose Ordered Sig/Ankush Route PRN Reason Start Time Stop Time Status Last Admin Dose Admin Acetaminophen (Tylenol) 650 mg Q4H PRN ORAL Temp >100.5 07/03/20 20:30 08/02/20 20:29 Dextrose (Dextrose 50%) 50 ml Q30M PRN IV Hypoglycemia 07/03/20 22:45 10/01/20 22:44 Heparin Sodium (Porcine) (Heparin 5000 units/ml) 5,000 units EVERY 12 HOURS SUBQ 07/03/20 21:00 08/17/20 20:59 07/09/20 09:28 Insulin Aspart (NovoLOG) BEFORE MEALS AND HS SUBQ 07/04/20 06:30 10/02/20 06:29 07/09/20 16:42 Nitroglycerin (Ntg) 0.4 mg Q5M PRN SL Prn Chest Pain 07/03/20 20:30 08/02/20 20:29 Ondansetron HCl (Zofran) 4 mg Q6H PRN IVP Nausea & Vomiting 07/03/20 20:30 08/02/20 20:29 Polyethylene Glycol (Miralax) 17 gm DAILYPRN PRN ORAL Constipation 07/03/20 20:30 08/02/20 20:29 Potassium Chloride (K-Dur) 20 meq TWICE A DAY NG 07/08/20 13:00 10/06/20 12:59 07/09/20 17:23 Promethazine HCl/ Codeine (Phenergan with Codeine) 5 ml Q4H PRN ORAL For Cough 07/03/20 20:30 08/02/20 20:29 Tamsulosin HCl (Flomax) 0.4 mg DAILY ORAL 07/04/20 09:00 08/03/20 08:59 07/09/20 09:26 Temazepam (Restoril) 15 mg HSPRN PRN ORAL Insomnia 07/03/20 20:30 07/10/20 20:29 Vancomycin HCl (Vanco pharmacy to dose) 1 ea DAILY PRN MISC Per rx protocol 07/03/20 20:30 08/02/20 20:29 Vancomycin HCl 1 gm/Sodium Chloride 275 ml @ 183.708 mls/hr Q24H IVPB 07/08/20 10:00 07/13/20 09:59 07/09/20 09:29 Allergies: Coded Allergies: No Known Allergies (Unverified , 04/30/12) Subjective unresponsive, cannot follow command, on Ventimask, Objective Last Vital Signs Date Time Temp Pulse Resp B/P (MAP) Pulse Ox O2 Delivery O2 Flow Rate FiO2 07/09/20 16:00 102 07/09/20 16:00 Nasal Cannula 4.0 07/09/20 16:00 50 07/09/20 16:00 99.3 18 112/64 (80) 95 Laboratory Tests Test 07/08/20 20:26 07/09/20 03:56 07/09/20 06:29 07/09/20 11:39 POC Whole Blood Glucose 103 MG/DL (74-106) 133 MG/DL (74-106) H Pending White Blood Count 10.8 K/UL (4.8-10.8) Red Blood Count 4.12 M/UL (4.70-6.10) L Hemoglobin 12.5 G/DL (14.2-18.0) L Hematocrit 37.1 % (42.0-52.0) L Mean Corpuscular Volume 90 FL (80-99) Mean Corpuscular Hemoglobin 30.4 PG (27.0-31.0) Mean Corpuscular Hemoglobin Concent 33.7 G/DL (32.0-36.0) Red Cell Distribution Width 14.5 % (11.6-14.8) Platelet Count 238 K/UL (150-450) Mean Platelet Volume 10.5 FL (6.5-10.1) H Neutrophils (%) (Auto) 63.1 % (45.0-75.0) Lymphocytes (%) (Auto) 27.6 % (20.0-45.0) Monocytes (%) (Auto) 7.6 % (1.0-10.0) Eosinophils (%) (Auto) 0.8 % (0.0-3.0) Basophils (%) (Auto) 0.9 % (0.0-2.0) Erythrocyte Sedimentation Rate 88 MM/HR (0-20) H Sodium Level 144 MMOL/L (136-145) Potassium Level 3.9 MMOL/L (3.5-5.1) Chloride Level 111 MMOL/L (98-107) H Carbon Dioxide Level 25 MMOL/L (21-32) Anion Gap 9 mmol/L (5-15) Blood Urea Nitrogen 6 mg/dL (7-18) L Creatinine 1.1 MG/DL (0.55-1.30) Estimat Glomerular Filtration Rate > 60 mL/min (>60) Glucose Level 150 MG/DL (74-106) H Calcium Level 9.2 MG/DL (8.5-10.1) Phosphorus Level 3.3 MG/DL (2.5-4.9) Magnesium Level 2.1 MG/DL (1.8-2.4) Total Bilirubin 0.4 MG/DL (0.2-1.0) Aspartate Amino Transf (AST/SGOT) 52 U/L (15-37) H Alanine Aminotransferase (ALT/SGPT) 41 U/L (12-78) Alkaline Phosphatase 242 U/L (46-116) H C-Reactive Protein, Quantitative 6.4 mg/dL (0.00-0.90) H Total Protein 7.0 G/DL (6.4-8.2) Albumin 1.8 G/DL (3.4-5.0) L Globulin 5.2 g/dL Albumin/Globulin Ratio 0.3 (1.0-2.7) L Test 07/09/20 16:23 POC Whole Blood Glucose 148 MG/DL (74-106) H Intake and Output 07/08/20 07/09/20 19:00 07:00 Intake Total 630 ml 360 ml Output Total 751 ml 800 ml Balance -121 ml -440 ml Free Water 300 ml Tube Feeding 330 ml 360 ml Output Urine Total 750 ml 800 ml Stool Total 1 ml # Bowel Movements 1 Objective GENERAL: unresponsive, unable to follow command, on a Ventimask at this time, chronically ill-appearing. HEAD AND NECK: Pupils are equal and reactive to light. Anicteric. NGT. NECK: Supple. No JVD. LUNGS: coarse breath sounds. Decreased air in bases. HEART: S1, S2. Regular rhythm. Distant heart sounds. No murmur or gallop. ABDOMEN: Soft, nondistended, nontender. Positive bowel sounds. EXTREMITIES: No cyanosis, clubbing, or edema. NEUROLOGIC: Very limited secondary to the patient's status, cannot follow commands. Assessment/Plan Assessment/Plan 1. Acute hypoxemic respiratory failure, most likely secondary to pneumonia and sepsis. 2. Sepsis secondary to urinary tract infection and pneumonia. 3. pneumonia=MRSA 4. Acute kidney injury on chronic renal insufficiency. 5. Dehydration. 6. History of chronic congestive heart failure. 7. Diabetes type 2. 8. Dyslipidemia. 9. Hypertension. 10. Alzheimer's disease. 11. COVID 19 previous positive PLAN: 1. in telemetry 2. Dr. Carreno,=Pulmonary Critical Care 3. Dr. Cho = infection disease 4. IV= D5W due to the hypernatremia and dehydration. 5. antibiotics = vancomycin and cefepime 6. Code status is full code. 7. DVT prophylaxis is heparin subcutaneous. 8. Tube feeding @ 50 cc/hr Ahsan Hodges MD Jul 09, 2020 19:18
--- NOTE | 2020-07-09 19:22 | NUR ---
NURSE HAND-OFF REPORT: Important Events on Shift:N/A Patient Status: unstable with low grade fever Diet: Glucerna 1.2 at 50 ml/hr NGT Pending Orders: N/A Pending Results/Labs:N/A Pending MD notification:N/A Latest Vital Signs: Temperature 99.3 , Pulse 94 , B/P 112 /64 , Respiratory Rate 18 , O2 SAT 95 , Nasal Cannula, O2 Flow Rate 10.0 . Vital Sign Comment: EKG Rhythm: Sinus Rhythm Rhythm change?: N MD Notified?: Y -Left Message for Dr. Hodges, No cardio on the case. MD Response: Latest Gonzalez Fall Score: 50 Fall Risk: High Risk Safety Measures: Call light Within Reach, Bed Alarm Zone 1, Side Rails Side Rails x3, Bed position Low and Locked. Fall Precautions: Yellow Socks Yellow Gown Door Sign Patient Fall Education Report given to Yousif Piedra RN..
--- NOTE | 2020-07-09 19:25 | NUR ---
NURSE NOTES: pt report received from Claudia Morrow RN. pt remains stable resting in bed. pt is alert and oriented time 1, responsive to his own name. pt is on night monitor showing ST, no other apparent distress. pt is is on venturi mask, sating 100%, no acute signs of resp distress. pt bed is low, locked, armed, call light within reach, bed rails up times 3. will follow plan of care.
[2020-07-09 20:00] VITALS: BP 126/82
--- NOTE | 2020-07-09 21:30 | NUR ---
NURSE NOTES: assessed pt. vital signs stable. adjusted/ repositioned pts venti mask. pt is sating 98% O2. assessed pts Blood sugar, 125.
--- NOTE | 2020-07-09 23:30 | NUR ---
NURSE NOTES: pt resting in bed. oral temp reads 99.3F. blanket off for cooling measurers. vital signs stable. Addendum: 07/10/20 at 0107 by ELIF RASHID RN WRONG PT.
[2020-07-10] VITALS: BP 113/79
--- NOTE | 2020-07-10 00:30 | NUR ---
NURSE NOTES: deep suctioned pt. thick white sputum noted, pink tinged. pt is sating 98% O2 post deep suction. vital signs stable.
--- NOTE | 2020-07-10 03:15 | NUR ---
NURSE NOTES: pt cleaned and repositioned with FLORES Ruiz. venturi mask repositioned. pt sating 95% O2. other vital signs stable.
[2020-07-10 04:00] VITALS: BP 132/74
[2020-07-10] MEDS: NovoLOG Insulin Flexpen SUBQ SCH ×4 (05:47→21:00)
--- NOTE | 2020-07-10 06:40 | NUR ---
NURSE HAND-OFF REPORT: Important Events on Shift:[NA] Patient Status: [Stable] Diet: [Tube feeding as per MD order] Pending Orders: [NA] Pending Results/Labs:[NA] Pending MD notification:[NA] Latest Vital Signs: Temperature 98.5 , Pulse 123 , B/P 132 /74 , Respiratory Rate 18 , O2 SAT 99 , Venturi Mask, O2 Flow Rate 10.0 . Vital Sign Comment: [stable] EKG Rhythm: Sinus Rhythm Rhythm change?: N MD Notified?: Y -Left Message for Dr. Hodges, No cardio on the case. MD Response: Latest Gonzalez Fall Score: 50 Fall Risk: High Risk Safety Measures: Call light Within Reach, Bed Alarm Zone 1, Side Rails Side Rails x3, Bed position Low and Locked. Fall Precautions: Yellow Socks Yellow Gown Door Sign Patient Fall Education Report given to [Carlos TANNER Tele.].
--- NOTE | 2020-07-10 06:45 | NUR ---
NURSE NOTES: Patient received from FLORES Dodd. Patient has been transferred without distress. Patient is A/O x 1. Patient is on GT running glucerna 1.2. Patient is on venturi mask 50% at 10 L satting at 96%. Patient is on restraints, no injuries has been noted in both hands, pulse are palpable. Patient has a sacral stage 1, will take pictures. No other skin issue has been noted. Patient belongings has been discussed with FLORES Dodd. Patient has a right forearm 22 gauge, patent and flushed. Wiley, is patent and well draining. Bed is in the lowest position, call light within reach. Will continue to monitor.
--- NOTE | 2020-07-10 07:40 | NUR ---
NURSE HAND-OFF REPORT: Important Events on Shift:[] Patient Status: [] Diet: [GT] Pending Orders: [] Pending Results/Labs:[] Pending MD notification:[] Latest Vital Signs: Temperature 98.5 , Pulse 123 , B/P 132 /74 , Respiratory Rate 18 , O2 SAT 99 , Venturi Mask, O2 Flow Rate 10.0 . Vital Sign Comment: [] EKG Rhythm: Sinus Rhythm Rhythm change?: N MD Notified?: Y -Left Message for Dr. Hodges, No cardio on the case. MD Response: Latest Gonzalez Fall Score: 50 Fall Risk: High Risk Safety Measures: Call light Within Reach, Bed Alarm Zone 1, Side Rails Side Rails x3, Bed position Low and Locked. Fall Precautions: Yellow Socks Yellow Gown Door Sign Patient Fall Education Report given to [FLORES Cho].
[2020-07-10 08:00] VITALS: BP 106/61
[2020-07-10] MEDS: Tamsulosin 0.4mg cap ORAL SCH (08:54)
[2020-07-10] MEDS: Heparin 5000 units/ml inj SUBQ SCH ×2 (08:56→21:06)
[2020-07-10] MEDS: Vancomycin 1 GM in NS 275 ML IVPB SCH (08:58)
--- NOTE | 2020-07-10 09:26 | NUR ---
NURSE NOTES: Found pt tahypnic at RR 30, pt using accessory muscles with O2 sat 84% on venturi mask 10L @ FiO2 50%, HR 145 sustaining. Pt sounds terribly congested, NGT was turned off for the time being. RT was called to assist. Dr Connors aware and he will be ordering ABGs. Dr Carreno was also notified. Pt was transferred on restraints. Restraint order cancelled by TIFFANIE. recvd order from Dr Carreno to continue restraints.
--- NOTE | 2020-07-10 09:32 | NUR ---
NURSE NOTES: Pt was deeply suctioned by RT and placed on nonrebreather with O2 sat 89-90%.
--- NOTE | 2020-07-10 09:35 | NUR ---
NURSE NOTES: cxr, abg AND 12 LEAD ekg STAT
--- NOTE | 2020-07-10 10:18 | NUR ---
RADIOLOGY DEPT., CHEST X-RAY DONE.-P.DYE
--- NOTE | 2020-07-10 10:34 | Nephrology Progress Note ---
Assessment/Plan Problem List: (1) Dehydration (2) MELANIE (acute kidney injury) (3) Renal failure (ARF), acute on chronic (4) Hypoxia (5) Acute encephalopathy (6) Electrolyte imbalance Assessment 79-year-old male is admitted with acute hypoxic respiratory failure most likely secondary to pneumonia and sepsis, UTI. Acute on chronic renal failure Dehydration Electrolyte imbalances, hypernatremia Hypoalbuminemia Diabetes type 2 History of congestive heart failure Hypertension Hyperlipemia Alzheimer's Previous COVID-19 infection in May 2020 Plan July 10: Patient is not doing well clinically. Mild respiratory distress. ABG noted. Somewhat hypoxic. CBC and chemistry panel ordered. Discussed with FLORES Cho. Will defer to pulmonary management to specialist. Continue per ID. Renal parameters remained stable as of July 09. July 09: Labs reviewed. Renal parameters stable. Continue per consultants. July 08: Labs reviewed. Potassium via NG tube ordered. IV fluids stopped. Continue per consultants. July 07: Labs reviewed. Low potassium and low phosphorus replaced. Continue per consultants. Remains stable from renal standpoint of view. July 06: Patient remains n.p.o. IV fluid down to 50 cc an hour. Potassium supplement intravenously ordered. Continue per consultants. Previously: Patient is n.p.o., will continue on IV fluid of D5W 75 cc an hour We will monitor electrolytes and renal parameters Avoid nephrotoxic's Start p.o. when he clears by speech therapist, meanwhile aspiration precautions Keep the blood pressure and blood sugar in check Per orders Subjective ROS Limited/Unobtainable: Yes Objective Objective Last 24 Hour Vital Signs Date Time Temp Pulse Resp B/P (MAP) Pulse Ox O2 Delivery O2 Flow Rate FiO2 07/10/20 09:45 94 Non-Rebreather 15.0 100 07/10/20 08:00 Venturi Mask 10.0 07/10/20 08:00 96.7 145 30 106/61 (76) 84 07/10/20 08:00 10.0 50 07/10/20 08:00 142 07/10/20 04:00 Venturi Mask 10.0 07/10/20 04:00 98.5 123 18 132/74 (93) 99 07/10/20 04:00 118 07/10/20 04:00 10.0 50 07/10/20 00:00 10.0 50 10/30/20 00:00 Venturi Mask 10.0 07/10/20 00:00 98.9 102 18 113/79 (90) 100 07/10/20 00:00 105 07/09/20 20:00 10.0 50 07/09/20 20:00 Venturi Mask 10.0 07/09/20 20:00 99.0 94 18 126/82 (97) 100 07/09/20 20:00 108 07/09/20 16:00 102 07/09/20 16:00 Nasal Cannula 4.0 07/09/20 16:00 10.0 50 07/09/20 16:00 99.3 94 18 112/64 (80) 95 07/09/20 12:00 99.3 103 23 110/70 (83) 95 07/09/20 12:00 113 07/09/20 12:00 Nasal Cannula 4.0 Intake and Output 07/09/20 07/10/20 19:00 07:00 Intake Total 870 ml 530 ml Output Total 1001 ml 700 ml Balance -131 ml -170 ml Free Water 200 ml Tube Feeding 430 ml 530 ml Other 240 ml Output Urine Total 1000 ml 700 ml Stool Total 1 ml # Bowel Movements 3 No blood drawn today Laboratory Tests 07/09/20 11:39: POC Whole Blood Glucose [Pending] 07/09/20 16:23: POC Whole Blood Glucose 148H 07/09/20 21:10: POC Whole Blood Glucose [Pending] 07/10/20 05:41: POC Whole Blood Glucose [Pending] 07/10/20 09:00: Random Vancomycin Level 13.8 07/10/20 09:46: Arterial Blood pH 7.467H, Arterial Blood Partial Pressure CO2 38.5, Arterial Blood Partial Pressure O2 64.8L, Arterial Blood HCO3 27.2H, Arterial Blood Oxygen Saturation 93.5L, Arterial Blood Base Excess 3.4H, Richard Test Positive Height (Feet): 5 Height (Inches): 4.00 Weight (Pounds): 130 General Appearance: mild distress Cardiovascular: tachycardia Respiratory/Chest: decreased breath sounds, rhonchi - bilaterally Abdomen: distended Tino Connors MD Jul 10, 2020 10:34
[2020-07-10 11:21] LABS: BASOPHILS % (AUTO) 0.5 % (0.0-2.0); EOSINOPHILS % (AUTO) 0.1 % (0.0-3.0); HEMATOCRIT 39.6 % (42.0-52.0); HEMOGLOBIN 12.7 G/DL (14.2-18.0); LYMPHOCYTES % (AUTO) 10.6 % (20.0-45.0); MEAN CORPUSCULAR VOLUME 93 FL (80-99); MONOCYTES % (AUTO) 4.5 % (1.0-10.0); NEUTROPHILS % (AUTO) 84.2 % (45.0-75.0); PLATELET COUNT 253 K/UL (150-450); RED BLOOD COUNT 4.25 M/UL (4.70-6.10); RED CELL DISTRIBUTION WIDTH 15.1 % (11.6-14.8); WHITE BLOOD COUNT 14.1 K/UL (4.8-10.8)
[2020-07-10 11:49] LABS: ALANINE AMINOTRANSFERASE 41 U/L (12-78); ALBUMIN 1.8 G/DL (3.4-5.0); ALBUMIN/GLOBULIN RATIO 0.4 (1.0-2.7); ALKALINE PHOSPHATASE 240 U/L (46-116); ASPARTATE AMINO TRANSFERASE 47 U/L (15-37); BILIRUBIN,TOTAL 0.5 MG/DL (0.2-1.0); BLOOD UREA NITROGEN 10 mg/dL (7-18); CALCIUM 9.1 MG/DL (8.5-10.1); CARBON DIOXIDE 34 MMOL/L (21-32); CHLORIDE 109 MMOL/L (98-107); CREATININE 1.2 MG/DL (0.55-1.30); PHOSPHORUS 3.8 MG/DL (2.5-4.9); POTASSIUM 4.9 MMOL/L (3.5-5.1); SODIUM 145 MMOL/L (136-145)
[2020-07-10 11:58] VITALS: BP 137/77
--- NOTE | 2020-07-10 12:12 | Cardiac Electrophysiology PN ---
Assessment/Plan Assessment/Plan 1. Accelerated junctional rhythm. Not bradycardic. Ruled out for IN Echo showed ejection fraction of 55%. 2. Sepsis, on broad-spectrum IV antibiotic. 3. Respiratory failure, on antibiotic and NRBFM. 4. Dehydration. 5. Acute renal failure. 6. Electrolyte imbalance. 7. History of CHF, but echocardiogram showed normal left ventricular systolic function. 8. History of previous COVID infection in May 2020 and Active Covid now in isolation 9. Dementia. DW RN Subjective Subjective In SR in NAD in Covid isolation.On NRB FM as Sat dropped to 84%. In sinus tach Objective Last 24 Hour Vital Signs Date Time Temp Pulse Resp B/P (MAP) Pulse Ox O2 Delivery O2 Flow Rate FiO2 07/10/20 11:59 10.0 50 07/10/20 11:58 96.8 101 21 137/77 (97) 84 07/10/20 09:45 94 Non-Rebreather 15.0 100 07/10/20 08:00 Venturi Mask 10.0 07/10/20 08:00 96.7 145 30 106/61 (76) 84 07/10/20 08:00 10.0 50 07/10/20 08:00 142 07/10/20 04:00 Venturi Mask 10.0 07/10/20 04:00 98.5 123 18 132/74 (93) 99 07/10/20 04:00 118 07/10/20 04:00 10.0 50 07/10/20 00:00 10.0 50 07/10/20 00:00 Venturi Mask 10.0 07/10/20 00:00 98.9 102 18 113/79 (90) 100 07/10/20 00:00 105 07/09/20 20:00 10.0 50 07/09/20 20:00 Venturi Mask 10.0 07/09/20 20:00 99.0 94 18 126/82 (97) 100 07/09/20 20:00 108 07/09/20 16:00 102 07/09/20 16:00 Nasal Cannula 4.0 07/09/20 16:00 10.0 50 07/09/20 16:00 99.3 94 18 112/64 (80) 95 Intake and Output 07/09/20 07/10/20 19:00 07:00 Intake Total 870 ml 530 ml Output Total 1001 ml 700 ml Balance -131 ml -170 ml Free Water 200 ml Tube Feeding 430 ml 530 ml Other 240 ml Output Urine Total 1000 ml 700 ml Stool Total 1 ml # Bowel Movements 3 Laboratory Tests Test 07/09/20 16:23 07/09/20 21:10 07/10/20 05:41 07/10/20 09:00 POC Whole Blood Glucose 148 MG/DL (74-106) H Pending Pending Random Vancomycin Level 13.8 ug/mL Test 07/10/20 09:46 07/10/20 11:00 Arterial Blood pH 7.467 (7.350-7.450) Arterial Blood Partial Pressure CO2 38.5 mmHg (35.0-45.0) Arterial Blood Partial Pressure O2 64.8 mmHg (75.0-100.0) L Arterial Blood HCO3 27.2 mmol/L (22.0-26.0) H Arterial Blood Oxygen Saturation 93.5 % (95-100) L Arterial Blood Base Excess 3.4 (-2-2) H Richard Test Positive White Blood Count 14.1 K/UL (4.8-10.8) H Red Blood Count 4.25 M/UL (4.70-6.10) L Hemoglobin 12.7 G/DL (14.2-18.0) L Hematocrit 39.6 % (42.0-52.0) L Mean Corpuscular Volume 93 FL (80-99) Mean Corpuscular Hemoglobin 29.9 PG (27.0-31.0) Mean Corpuscular Hemoglobin Concent 32.1 G/DL (32.0-36.0) Red Cell Distribution Width 15.1 % (11.6-14.8) H Platelet Count 253 K/UL (150-450) Mean Platelet Volume 9.8 FL (6.5-10.1) Neutrophils (%) (Auto) 84.2 % (45.0-75.0) H Lymphocytes (%) (Auto) 10.6 % (20.0-45.0) L Monocytes (%) (Auto) 4.5 % (1.0-10.0) Eosinophils (%) (Auto) 0.1 % (0.0-3.0) Basophils (%) (Auto) 0.5 % (0.0-2.0) Sodium Level 145 MMOL/L (136-145) Potassium Level 4.9 MMOL/L (3.5-5.1) Chloride Level 109 MMOL/L (98-107) H Carbon Dioxide Level 34 MMOL/L (21-32) H Blood Urea Nitrogen 10 mg/dL (7-18) Creatinine 1.2 MG/DL (0.55-1.30) Estimat Glomerular Filtration Rate 58.7 mL/min (>60) Glucose Level 148 MG/DL (74-106) H Calcium Level 9.1 MG/DL (8.5-10.1) Phosphorus Level 3.8 MG/DL (2.5-4.9) Magnesium Level 2.2 MG/DL (1.8-2.4) Total Bilirubin 0.5 MG/DL (0.2-1.0) Aspartate Amino Transf (AST/SGOT) 47 U/L (15-37) H Alanine Aminotransferase (ALT/SGPT) 41 U/L (12-78) Alkaline Phosphatase 240 U/L (46-116) H C-Reactive Protein, Quantitative 15.0 mg/dL (0.00-0.90) H Total Protein 6.6 G/DL (6.4-8.2) Albumin 1.8 G/DL (3.4-5.0) L Globulin 4.8 g/dL Albumin/Globulin Ratio 0.4 (1.0-2.7) L Objective HEAD AND NECK: No JVD. NRB FM LUNGS: Coarse rhonchi. CARDIOVASCULAR: Irregular S1 and S2 with no gallop. ABDOMEN: Soft. EXTREMITIES: No pitting edema. Klever Matt MD Jul 10, 2020 12:12
--- NOTE | 2020-07-10 12:12 | Pulmonology Progress Note ---
Subjective ROS Limited/Unobtainable: Yes Interval Events: on 100"% NRM Allergies: Coded Allergies: No Known Allergies (Unverified , 04/30/12) Objective Last 24 Hour Vital Signs Date Time Temp Pulse Resp B/P (MAP) Pulse Ox O2 Delivery O2 Flow Rate FiO2 07/10/20 11:59 10.0 50 07/10/20 11:58 96.8 101 21 137/77 (97) 84 07/10/20 09:45 94 Non-Rebreather 15.0 100 07/10/20 08:00 Venturi Mask 10.0 07/10/20 08:00 96.7 145 30 106/61 (76) 84 07/10/20 08:00 10.0 50 07/10/20 08:00 142 07/10/20 04:00 Venturi Mask 10.0 07/10/20 04:00 98.5 123 18 132/74 (93) 99 07/10/20 04:00 118 07/10/20 04:00 10.0 50 07/10/20 00:00 10.0 50 07/10/20 00:00 Venturi Mask 10.0 07/10/20 00:00 98.9 102 18 113/79 (90) 100 07/10/20 00:00 105 07/09/20 20:00 10.0 50 07/09/20 20:00 Venturi Mask 10.0 07/09/20 20:00 99.0 94 18 126/82 (97) 100 07/09/20 20:00 108 07/09/20 16:00 102 07/09/20 16:00 Nasal Cannula 4.0 07/09/20 16:00 10.0 50 07/09/20 16:00 99.3 94 18 112/64 (80) 95 Intake and Output 07/09/20 07/10/20 19:00 07:00 Intake Total 870 ml 530 ml Output Total 1001 ml 700 ml Balance -131 ml -170 ml Free Water 200 ml Tube Feeding 430 ml 530 ml Other 240 ml Output Urine Total 1000 ml 700 ml Stool Total 1 ml # Bowel Movements 3 General Appearance: WD/WN, no acute distress HEENT: normocephalic, atraumatic Respiratory: chest wall non-tender, respiratory distress, rhonchi - left, rh onchi - right Cardiovascular: normal rate Abdomen: normal bowel sounds, no organomegaly Genitourinary: normal external genitalia Laboratory Tests 07/09/20 16:23: POC Whole Blood Glucose 148H 07/09/20 21:10: POC Whole Blood Glucose [Pending] 07/10/20 05:41: POC Whole Blood Glucose [Pending] 07/10/20 09:00: Random Vancomycin Level 13.8 07/10/20 09:46: Arterial Blood pH 7.467H, Arterial Blood Partial Pressure CO2 38.5, Arterial Blood Partial Pressure O2 64.8L, Arterial Blood HCO3 27.2H, Arterial Blood Oxygen Saturation 93.5L, Arterial Blood Base Excess 3.4H, Richard Test Positive 07/10/20 11:00: White Blood Count 14.1H, Red Blood Count 4.25L, Hemoglobin 12.7L, Hematocrit 39.6L, Mean Corpuscular Volume 93, Mean Corpuscular Hemoglobin 29.9, Mean Corpuscular Hemoglobin Concent 32.1, Red Cell Distribution Width 15.1H, Platelet Count 253, Mean Platelet Volume 9.8, Neutrophils (%) (Auto) 84.2H, Lymphocytes (%) (Auto) 10.6L, Monocytes (%) (Auto) 4.5, Eosinophils (%) (Auto) 0.1, Basophils (%) (Auto) 0.5, Sodium Level 145, Potassium Level 4.9, Chloride Level 109H, Carbon Dioxide Level 34H, Blood Urea Nitrogen 10, Creatinine 1.2, Estimat Glomerular Filtration Rate 58.7, Glucose Level 148H, Calcium Level 9.1, Phosp horus Level 3.8, Magnesium Level 2.2, Total Bilirubin 0.5, Aspartate Amino Transf (AST/SGOT) 47H, Alanine Aminotransferase (ALT/SGPT) 41, Alkaline Phosphatase 240H, C-Reactive Protein, Quantitative 15.0H, Total Protein 6.6, Albumin 1.8L, Globulin 4.8, Albumin/Globulin Ratio 0.4L Current Medications Medications (Trade) Dose Ordered Sig/Ankush Route PRN Reason Start Time Stop Time Status Last Admin Dose Admin Acetaminophen (Tylenol) 650 mg Q4H PRN ORAL Temp >100.5 07/03/20 20:30 08/02/20 20:29 Dextrose (Dextrose 50%) 50 ml Q30M PRN IV Hypoglycemia 07/03/20 22:45 10/01/20 22:44 Heparin Sodium (Porcine) (Heparin 5000 units/ml) 5,000 units EVERY 12 HOURS SUBQ 07/03/20 21:00 08/17/20 20:59 07/10/20 08:56 Insulin Aspart (NovoLOG) BEFORE MEALS AND HS SUBQ 07/04/20 06:30 10/02/20 06:29 07/10/20 05:47 Nitroglycerin (Ntg) 0.4 mg Q5M PRN SL Prn Chest Pain 07/03/20 20:30 08/02/20 20:29 Ondansetron HCl (Zofran) 4 mg Q6H PRN IVP Nausea & Vomiting 07/03/20 20:30 08/02/20 20:29 Polyethylene Glycol (Miralax) 17 gm DAILYPRN PRN ORAL Constipation 07/03/20 20:30 08/02/20 20:29 Potassium Chloride (K-Dur) 20 meq TWICE A DAY NG 07/08/20 13:00 10/06/20 12:59 07/10/20 08:54 Promethazine HCl/ Codeine (Phenergan with Codeine) 5 ml Q4H PRN ORAL For Cough 07/03/20 20:30 08/02/20 20:29 Tamsulosin HCl (Flomax) 0.4 mg DAILY ORAL 07/04/20 09:00 08/03/20 08:59 07/10/20 08:54 Temazepam (Restoril) 15 mg HSPRN PRN ORAL Insomnia 07/03/20 20:30 07/10/20 20:29 Vancomycin HCl (Vanco pharmacy to dose) 1 ea DAILY PRN MISC Per rx protocol 07/03/20 20:30 08/02/20 20:29 Vancomycin HCl 1 gm/Sodium Chloride 275 ml @ 183.708 mls/hr Q24H IVPB 07/08/20 10:00 07/13/20 09:59 07/10/20 08:58 Assessment/Plan Problems: (1) 2019 novel coronavirus disease (COVID-19) (2) Severe sepsis (3) Acute encephalopathy (4) HTN (hypertension) (5) Aphasia (6) Alzheimer's dementia (7) History of CVA (cerebrovascular accident) (8) BPH (benign prostatic hyperplasia) Assessment/Plan titrate fio2 to sat of 92% frequent suctioning cxr from today reviewed: no change to previous ones' continue abx check electrolytes tolerating feeding aspiration precaution dvt prophylaxis. Kya Carreno MD Jul 10, 2020 12:12
--- NOTE | 2020-07-10 13:00 | Infectious Diseases Prog Note ---
Assessment/Plan 79yo M with: Fever at SNF, 100.2 max here; SP Leukocytosis to 12- SP Acute hypoxic resp failure, on NRB mask> 4l NC; back on NRB, desaturation 07/09 Pneumonia- hx of COVID19 PNA 05/20/2007/03 BCx NTD UA 15-20 WBC, UCx Neg 07/03 COVID rapid neg; 07/06 rapid COVID PCR + (from prior infection)- not new infection Flu A/B neg CXR: L pna Resp cx MRSA CKD, Cr 1.7 SNF resident (ed [facility]) Non-verbal VRE and MRSA colonized Plan: Cont vanco #04/20 for MRSA PNA -add empiric Zosyn given resp decompensation -07/06 SP Cefepime #4 -07/04 SP Flagyl # Monitor CBC/CMP Monitor resp status Monitor temp curve and hemodynamics off COVID isolation- positive covid test represents residual virus from infection on 05/2020 sp cx CXR D/w RN Thank you for this consult. [facility] will continue to follow. Subjective Allergies: Coded Allergies: No Known Allergies (Unverified , 04/30/12) afebrile tachypneic and desaturated; placed on NRB mild leukocytosis now in telemetry Objective Last 24 Hour Vital Signs Date Time Temp Pulse Resp B/P (MAP) Pulse Ox O2 Delivery O2 Flow Rate FiO2 07/10/20 11:59 10.0 50 07/10/20 11:58 96.8 101 21 137/77 (97) 84 07/10/20 09:45 94 Non-Rebreather 15.0 100 07/10/20 08:00 Venturi Mask 10.0 07/10/20 08:00 96.7 145 30 106/61 (76) 84 07/10/20 08:00 10.0 50 07/10/20 08:00 142 07/10/20 04:00 Venturi Mask 10.0 07/10/20 04:00 98.5 123 18 132/74 (93) 99 07/10/20 04:00 118 07/10/20 04:00 10.0 50 07/10/20 00:00 10.0 50 07/10/20 00:00 Venturi Mask 10.0 07/10/20 00:00 98.9 102 18 113/79 (90) 100 07/10/20 00:00 105 07/09/20 20:00 10.0 50 07/09/20 20:00 Venturi Mask 10.0 07/09/20 20:00 99.0 94 18 126/82 (97) 100 07/09/20 20:00 108 07/09/20 16:00 102 07/09/20 16:00 Nasal Cannula 4.0 07/09/20 16:00 10.0 50 07/09/20 16:00 99.3 94 18 112/64 (80) 95 Height (Feet): 5 Height (Inches): 4.00 Weight (Pounds): 130 Gen: NAD CV: RRR Pulm: Rhonchi anteriorly, lots of oral secretions Abd: Soft, NTND Ext: No c/c/e Neuro: Awake Laboratory Tests Test 07/09/20 16:23 07/09/20 21:10 07/10/20 05:41 07/10/20 09:00 POC Whole Blood Glucose 148 MG/DL (74-106) H Pending Pending Random Vancomycin Level 13.8 ug/mL Test 07/10/20 09:46 07/10/20 11:00 07/10/20 12:09 Arterial Blood pH 7.467 (7.350-7.450) Arterial Blood Partial Pressure CO2 38.5 mmHg (35.0-45.0) Arterial Blood Partial Pressure O2 64.8 mmHg (75.0-100.0) L Arterial Blood HCO3 27.2 mmol/L (22.0-26.0) H Arterial Blood Oxygen Saturation 93.5 % (95-100) L Arterial Blood Base Excess 3.4 (-2-2) H Richard Test Positive White Blood Count 14.1 K/UL (4.8-10.8) H Red Blood Count 4.25 M/UL (4.70-6.10) L Hemoglobin 12.7 G/DL (14.2-18.0) L Hematocrit 39.6 % (42.0-52.0) L Mean Corpuscular Volume 93 FL (80-99) Mean Corpuscular Hemoglobin 29.9 PG (27.0-31.0) Mean Corpuscular Hemoglobin Concent 32.1 G/DL (32.0-36.0) Red Cell Distribution Width 15.1 % (11.6-14.8) H Platelet Count 253 K/UL (150-450) Mean Platelet Volume 9.8 FL (6.5-10.1) Neutrophils (%) (Auto) 84.2 % (45.0-75.0) H Lymphocytes (%) (Auto) 10.6 % (20.0-45.0) L Monocytes (%) (Auto) 4.5 % (1.0-10.0) Eosinophils (%) (Auto) 0.1 % (0.0-3.0) Basophils (%) (Auto) 0.5 % (0.0-2.0) Sodium Level 145 MMOL/L (136-145) Potassium Level 4.9 MMOL/L (3.5-5.1) Chloride Level 109 MMOL/L (98-107) H Carbon Dioxide Level 34 MMOL/L (21-32) H Blood Urea Nitrogen 10 mg/dL (7-18) Creatinine 1.2 MG/DL (0.55-1.30) Estimat Glomerular Filtration Rate 58.7 mL/min (>60) Glucose Level 148 MG/DL (74-106) H Calcium Level 9.1 MG/DL (8.5-10.1) Phosphorus Level 3.8 MG/DL (2.5-4.9) Magnesium Level 2.2 MG/DL (1.8-2.4) Total Bilirubin 0.5 MG/DL (0.2-1.0) Aspartate Amino Transf (AST/SGOT) 47 U/L (15-37) H Alanine Aminotransferase (ALT/SGPT) 41 U/L (12-78) Alkaline Phosphatase 240 U/L (46-116) H C-Reactive Protein, Quantitative 15.0 mg/dL (0.00-0.90) H Total Protein 6.6 G/DL (6.4-8.2) Albumin 1.8 G/DL (3.4-5.0) L Globulin 4.8 g/dL Albumin/Globulin Ratio 0.4 (1.0-2.7) L POC Whole Blood Glucose 148 MG/DL (74-106) H Current Medications Medications (Trade) Dose Ordered Sig/Ankush Route PRN Reason Start Time Stop Time Status Last Admin Dose Admin Acetaminophen (Tylenol) 650 mg Q4H PRN ORAL Temp >100.5 07/03/20 20:30 08/02/20 20:29 Dextrose (Dextrose 50%) 50 ml Q30M PRN IV Hypoglycemia 07/03/20 22:45 10/01/20 22:44 Heparin Sodium (Porcine) (Heparin 5000 units/ml) 5,000 units EVERY 12 HOURS SUBQ 07/03/20 21:00 08/17/20 20:59 07/10/20 08:56 Insulin Aspart (NovoLOG) BEFORE MEALS AND HS SUBQ 07/04/20 06:30 10/02/20 06:29 07/10/20 05:47 Nitroglycerin (Ntg) 0.4 mg Q5M PRN SL Prn Chest Pain 07/03/20 20:30 08/02/20 20:29 Ondansetron HCl (Zofran) 4 mg Q6H PRN IVP Nausea & Vomiting 07/03/20 20:30 08/02/20 20:29 Polyethylene Glycol (Miralax) 17 gm DAILYPRN PRN ORAL Constipation 07/03/20 20:30 08/02/20 20:29 Potassium Chloride (K-Dur) 20 meq TWICE A DAY NG 07/08/20 13:00 10/06/20 12:59 07/10/20 08:54 Promethazine HCl/ Codeine (Phenergan with Codeine) 5 ml Q4H PRN ORAL For Cough 07/03/20 20:30 08/02/20 20:29 Tamsulosin HCl (Flomax) 0.4 mg DAILY ORAL 07/04/20 09:00 08/03/20 08:59 07/10/20 08:54 Temazepam (Restoril) 15 mg HSPRN PRN ORAL Insomnia 07/03/20 20:30 07/10/20 20:29 Vancomycin HCl (Vanco pharmacy to dose) 1 ea DAILY PRN MISC Per rx protocol 07/03/20 20:30 08/02/20 20:29 Vancomycin HCl 1 gm/Sodium Chloride 275 ml @ 183.708 mls/hr Q24H IVPB 07/08/20 10:00 07/13/20 09:59 07/10/20 08:58 Ashley Cho M.D. Jul 10, 2020 13:00
[2020-07-10] MEDS: Piperacillin/Tazobactam 3.375 GM in NS 110 ML IVPB SCH ×2 (14:32→21:07)
--- NOTE | 2020-07-10 15:14 | NUR ---
CASE MANAGEMENT:REVIEW 07/10/20 SI: COVID PNA 96.7 142 30 106/61 SAT 84% ON VENTURI MASK WBC+14.1 ALB-1.8 IS: PLACED ON NON REBREATHER 15L 100% FIO2 IV LASIX X1 IV ZOSYN Q8HRS IV VANCOMYCIN Q24 HEPARIN SQ Q12 : TELEMETRY STATUS DCP: FROM [facility] PLAN: TITRATE OXYGEN
--- NOTE | 2020-07-10 15:22 | Diagnostic Imaging Report ---
Indication: Dyspnea Technique: One view of the chest Comparison: 07/09/2020 Findings: Bilateral infiltrates are unchanged. Stable satisfactory position of nasogastric tube. Right shoulder prosthesis again demonstrated. Impression: Unchanged, over one day, findings as above.
[2020-07-10 16:00] VITALS: BP 120/71
--- NOTE | 2020-07-10 19:42 | Internal Med Progress Note ---
Subjective Physician Name Ahsan Hodges Attending Physician Ahsan Hodges MD Current Medications Medications (Trade) Dose Ordered Sig/Ankush Route PRN Reason Start Time Stop Time Status Last Admin Dose Admin Acetaminophen (Tylenol) 650 mg Q4H PRN ORAL Temp >100.5 07/03/20 20:30 08/02/20 20:29 Dextrose (Dextrose 50%) 50 ml Q30M PRN IV Hypoglycemia 07/03/20 22:45 10/01/20 22:44 Heparin Sodium (Porcine) (Heparin 5000 units/ml) 5,000 units EVERY 12 HOURS SUBQ 07/03/20 21:00 08/17/20 20:59 07/10/20 08:56 Insulin Aspart (NovoLOG) BEFORE MEALS AND HS SUBQ 07/04/20 06:30 10/02/20 06:29 07/10/20 05:47 Nitroglycerin (Ntg) 0.4 mg Q5M PRN SL Prn Chest Pain 07/03/20 20:30 08/02/20 20:29 Ondansetron HCl (Zofran) 4 mg Q6H PRN IVP Nausea & Vomiting 07/03/20 20:30 08/02/20 20:29 Piperacillin Sod/ Tazobactam Sod 3.375 gm/Sodium Chloride 110 ml @ 27.5 mls/hr EVERY 8 HOURS IVPB 07/10/20 14:00 07/15/20 13:59 07/10/20 14:32 Polyethylene Glycol (Miralax) 17 gm DAILYPRN PRN ORAL Constipation 07/03/20 20:30 08/02/20 20:29 Promethazine HCl/ Codeine (Phenergan with Codeine) 5 ml Q4H PRN ORAL For Cough 07/03/20 20:30 08/02/20 20:29 Tamsulosin HCl (Flomax) 0.4 mg DAILY ORAL 07/04/20 09:00 08/03/20 08:59 07/10/20 08:54 Temazepam (Restoril) 15 mg HSPRN PRN ORAL Insomnia 07/03/20 20:30 07/10/20 20:29 Vancomycin HCl (Vanco pharmacy to dose) 1 ea DAILY PRN MISC Per rx protocol 07/03/20 20:30 08/02/20 20:29 Vancomycin HCl 1 gm/Sodium Chloride 275 ml @ 183.708 mls/hr Q24H IVPB 07/08/20 10:00 07/13/20 09:59 07/10/20 08:58 Allergies: Coded Allergies: No Known Allergies (Unverified , 04/30/12) Subjective unresponsive, cannot follow command, on Ventimask, more shortness of breath. Objective Last Vital Signs Date Time Temp Pulse Resp B/P (MAP) Pulse Ox O2 Delivery O2 Flow Rate FiO2 07/10/20 18:50 95 Non-Rebreather 15.0 100 07/10/20 16:00 98.7 115 20 120/71 (87) Laboratory Tests Test 07/09/20 21:10 07/10/20 05:41 07/10/20 09:00 07/10/20 09:46 POC Whole Blood Glucose Pending Pending Random Vancomycin Level 13.8 ug/mL Arterial Blood pH 7.467 (7.350-7.450) Arterial Blood Partial Pressure CO2 38.5 mmHg (35.0-45.0) Arterial Blood Partial Pressure O2 64.8 mmHg (75.0-100.0) L Arterial Blood HCO3 27.2 mmol/L (22.0-26.0) H Arterial Blood Oxygen Saturation 93.5 % (95-100) L Arterial Blood Base Excess 3.4 (-2-2) H Richard Test Positive Test 07/10/20 11:00 07/10/20 12:09 07/10/20 13:05 07/10/20 18:13 White Blood Count 14.1 K/UL (4.8-10.8) H Red Blood Count 4.25 M/UL (4.70-6.10) L Hemoglobin 12.7 G/DL (14.2-18.0) L Hematocrit 39.6 % (42.0-52.0) L Mean Corpuscular Volume 93 FL (80-99) Mean Corpuscular Hemoglobin 29.9 PG (27.0-31.0) Mean Corpuscular Hemoglobin Concent 32.1 G/DL (32.0-36.0) Red Cell Distribution Width 15.1 % (11.6-14.8) H Platelet Count 253 K/UL (150-450) Mean Platelet Volume 9.8 FL (6.5-10.1) Neutrophils (%) (Auto) 84.2 % (45.0-75.0) H Lymphocytes (%) (Auto) 10.6 % (20.0-45.0) L Monocytes (%) (Auto) 4.5 % (1.0-10.0) Eosinophils (%) (Auto) 0.1 % (0.0-3.0) Basophils (%) (Auto) 0.5 % (0.0-2.0) Sodium Level 145 MMOL/L (136-145) Potassium Level 4.9 MMOL/L (3.5-5.1) Chloride Level 109 MMOL/L (98-107) H Carbon Dioxide Level 34 MMOL/L (21-32) H Blood Urea Nitrogen 10 mg/dL (7-18) Creatinine 1.2 MG/DL (0.55-1.30) Estimat Glomerular Filtration Rate 58.7 mL/min (>60) Glucose Level 148 MG/DL (74-106) H Calcium Level 9.1 MG/DL (8.5-10.1) Phosphorus Level 3.8 MG/DL (2.5-4.9) Magnesium Level 2.2 MG/DL (1.8-2.4) Total Bilirubin 0.5 MG/DL (0.2-1.0) Aspartate Amino Transf (AST/SGOT) 47 U/L (15-37) H Alanine Aminotransferase (ALT/SGPT) 41 U/L (12-78) Alkaline Phosphatase 240 U/L (46-116) H C-Reactive Protein, Quantitative 15.0 mg/dL (0.00-0.90) H Total Protein 6.6 G/DL (6.4-8.2) Albumin 1.8 G/DL (3.4-5.0) L Globulin 4.8 g/dL Albumin/Globulin Ratio 0.4 (1.0-2.7) L POC Whole Blood Glucose 148 MG/DL (74-106) H 151 MG/DL (74-106) H Arterial Blood pH 7.462 (7.350-7.450) Arterial Blood Partial Pressure CO2 41.3 mmHg (35.0-45.0) Arterial Blood Partial Pressure O2 140.4 mmHg (75.0-100.0) H Arterial Blood HCO3 28.8 mmol/L (22.0-26.0) H Arterial Blood Oxygen Saturation 99.0 % (95-100) Arterial Blood Base Excess 4.6 (-2-2) H Richard Test Positive Intake and Output 07/09/20 07/10/20 19:00 07:00 Intake Total 870 ml 530 ml Output Total 1001 ml 700 ml Balance -131 ml -170 ml Free Water 200 ml Tube Feeding 430 ml 530 ml Other 240 ml Output Urine Total 1000 ml 700 ml Stool Total 1 ml # Bowel Movements 3 Objective GENERAL: unresponsive, unable to follow command, on a Ventimask at this time, chronically ill-appearing. HEAD AND NECK: Pupils are equal and reactive to light. Anicteric. NGT. NECK: Supple. No JVD. LUNGS: coarse breath sounds. Decreased air in bases. HEART: S1, S2. Regular rhythm. Distant heart sounds. No murmur or gallop. ABDOMEN: Soft, nondistended, nontender. Positive bowel sounds. EXTREMITIES: No cyanosis, clubbing, or edema. NEUROLOGIC: Very limited secondary to the patient's status, cannot follow commands. Assessment/Plan Assessment/Plan 1. Acute hypoxemic respiratory failure, most likely secondary to pneumonia and sepsis. 2. Sepsis secondary to urinary tract infection and pneumonia. 3. pneumonia=MRSA 4. Acute kidney injury on chronic renal insufficiency. 5. Dehydration. 6. History of chronic congestive heart failure. 7. Diabetes type 2. 8. Dyslipidemia. 9. Hypertension. 10. Alzheimer's disease. 11. COVID 19 previous positive PLAN: 1. in telemetry 2. Dr. Carreno,=Pulmonary Critical Care 3. Dr. Cho = infection disease 4. IV= D5W due to the hypernatremia and dehydration. 5. antibiotics = vancomycin and cefepime 6. Code status is full code. 7. DVT prophylaxis is heparin subcutaneous. 8. Tube feeding @ 50 cc/hr CXR: Findings: Bilateral infiltrates are unchanged. Stable satisfactory position of nasogastric tube. Right shoulder prosthesis again demonstrated. Lasix 20mg IV X 1 dose follow-up with laboratory and cultures in the morning. Ahsan Hodges MD Jul 10, 2020 19:42
[2020-07-10 20:00] VITALS: BP 111/73
--- NOTE | 2020-07-10 20:45 | NUR ---
NURSE NOTES: Receive patient report from FLORES Cho. PAtient is AO x0 sleeping. Patient shows no signs of distress or pain at the time. He is on a non rebreather mask 100%/ 15L. Patient shows no signs of respiratory distress. He is on NG tube feeding running Glucerna 1.2 @ 60 cc/hr. IV is intact and patent. There are no signs of erythema, infiltration, or bleeding. Wiley catheter is patent and draining. Bilateral soft wrist restraints on. There are no skin issues noted.Bed is in the lowest position, call light is within reach, side rails up x3, and bed alarm on. Will continue to monitor.
--- NOTE | 2020-07-10 22:16 | NUR ---
NURSE NOTES: Patient suctioned by RT. Sputum culture collect and sent to lab.
--- NOTE | 2020-07-10 23:59 | NUR ---
NURSE NOTES: Patient had fever 100.9. Tylenol given as ordered.
[2020-07-11] VITALS: BP 108/86
[2020-07-11 04:00] VITALS: BP 117/76
--- NOTE | 2020-07-11 04:37 | NUR ---
NURSE NOTES: Sacral wound dressing changed. Bilateral heels padded with Optifoam
[2020-07-11] MEDS: Piperacillin/Tazobactam 3.375 GM in NS 110 ML IVPB SCH ×3 (05:31→21:41)
[2020-07-11] MEDS: NovoLOG Insulin Flexpen SUBQ SCH ×4 (05:39→20:59)
[2020-07-11 06:05] LABS: ALANINE AMINOTRANSFERASE 35 U/L (12-78); ALBUMIN 1.7 G/DL (3.4-5.0); ALBUMIN/GLOBULIN RATIO 0.3 (1.0-2.7); ALKALINE PHOSPHATASE 215 U/L (46-116); ASPARTATE AMINO TRANSFERASE 30 U/L (15-37); BILIRUBIN,TOTAL 0.6 MG/DL (0.2-1.0); BLOOD UREA NITROGEN 18 mg/dL (7-18); CALCIUM 9.1 MG/DL (8.5-10.1); CHLORIDE 107 MMOL/L (98-107); CREATININE 1.7 MG/DL (0.55-1.30); POTASSIUM 4.4 MMOL/L (3.5-5.1); SODIUM 145 MMOL/L (136-145)
[2020-07-11 06:08] LABS: CARBON DIOXIDE 31 MMOL/L (21-32)
[2020-07-11 06:26] LABS: BASOPHILS % (AUTO) 0.5 % (0.0-2.0); EOSINOPHILS % (AUTO) 0.1 % (0.0-3.0); HEMATOCRIT 38.4 % (42.0-52.0); HEMOGLOBIN 12.7 G/DL (14.2-18.0); LYMPHOCYTES % (AUTO) 13.8 % (20.0-45.0); MEAN CORPUSCULAR VOLUME 92 FL (80-99); MONOCYTES % (AUTO) 4.1 % (1.0-10.0); NEUTROPHILS % (AUTO) 81.6 % (45.0-75.0); PLATELET COUNT 235 K/UL (150-450); RED BLOOD COUNT 4.18 M/UL (4.70-6.10); RED CELL DISTRIBUTION WIDTH 15.4 % (11.6-14.8); WHITE BLOOD COUNT 15.1 K/UL (4.8-10.8)
[2020-07-11] MEDS ORDERED: NS 275ml ONE (07:04)
--- NOTE | 2020-07-11 07:21 | NUR ---
NURSE HAND-OFF REPORT: Important Events on Shift:[NA] Patient Status: [Full code] Diet: [Glucerna 1.2] Pending Orders: [] Pending Results/Labs:[] Pending MD notification:[] Latest Vital Signs: Temperature 98.1 , Pulse 103 , B/P 117 /76 , Respiratory Rate 30 , O2 SAT 95 , Non-Rebreather, O2 Flow Rate 15.0 . Vital Sign Comment: [] EKG Rhythm: Sinus Tachycardia Rhythm change?: N MD Notified?: Y -Left Message for Dr. Hodges, No cardio on the case. MD Response: Latest Gonzalez Fall Score: 50 Fall Risk: High Risk Safety Measures: Call light Within Reach, Bed Alarm Zone 1, Side Rails Side Rails x3, Bed position Low and Locked. Fall Precautions: Yellow Socks Yellow Gown Door Sign Patient Fall Education Report given to [FLORES Alexander].
[2020-07-11 08:00] VITALS: BP 114/67
--- NOTE | 2020-07-11 08:09 | NUR ---
NURSE NOTES: pt. in bed opens eyes but is non verbal. pt has [place] tube feeding, [place] tube is very secured taped to his skin. pt on non debreather, and has restrains on. pt on gambling monitor no signs of cardiac or respiratory distress at this time. Bed locked and in lowest position, call light within reach. Side rails up and bed alarm on for safety. Will continue to monitor pt
--- NOTE | 2020-07-11 08:30 | NUR ---
NURSE NOTES: called RT for suctioning, pt is very congested
--- NOTE | 2020-07-11 09:28 | Infectious Diseases Prog Note ---
Assessment/Plan 79yo M with: Fever at SNF, 100.2 max here; SP Leukocytosis to 12- SP Acute hypoxic resp failure, on NRB mask> 4l NC; back on NRB, desaturation 07/09 Pneumonia- hx of COVID19 PNA 05/20/2007/03 BCx NTD UA 15-20 WBC, UCx Neg 07/03 COVID rapid neg; 07/06 rapid COVID PCR + (from prior infection)- not new infection Flu A/B neg CXR: L pna Resp cx MRSA CKD, Cr 1.7 [facility] resident (ed [facility] health [facility]) Non-verbal VRE and MRSA colonized Plan: Cont vanco #9/ for MRSA PNA and Zosyn #2 given resp decompensation -07/06 SP Cefepime #4 -07/04 SP Flagyl # Monitor CBC/CMP Monitor resp status Monitor temp curve and hemodynamics off COVID isolation- positive covid test represents residual virus from infection on 05/2020 sp cx CXR D/w RN Thank you for this consult. [facility] will continue to follow. Subjective Allergies: Coded Allergies: No Known Allergies (Unverified , 04/30/12) Low grade fevers last night WBCs up to 15 On 15L O2 Sputum Cx still pending Objective Last 24 Hour Vital Signs Date Time Temp Pulse Resp B/P (MAP) Pulse Ox O2 Delivery O2 Flow Rate FiO2 07/11/20 08:00 97.2 92 18 114/67 (83) 95 07/11/20 07:15 96 Non-Rebreather 15.0 100 07/11/20 04:00 98.1 98 30 117/76 (90) 95 07/11/20 04:00 103 07/11/20 04:00 Non-Rebreather 15.0 07/11/20 04:00 15.0 100 07/11/20 00:23 100.3 07/11/20 00:00 100.9 135 28 108/86 (93) 96 07/11/20 00:00 Non-Rebreather 15.0 07/11/20 00:00 15.0 100 07/11/20 00:00 124 07/10/20 20:00 131 07/10/20 20:00 15.0 100 07/10/20 20:00 99.3 137 26 111/73 (86) 96 07/10/20 18:50 95 Non-Rebreather 15.0 100 07/10/20 16:00 15.0 100 07/10/20 16:00 98.7 115 20 120/71 (87) 97 07/10/20 16:00 110 07/10/20 12:00 113 07/10/20 11:59 10.0 50 07/10/20 11:58 96.8 101 21 137/77 (97) 84 07/10/20 09:45 94 Non-Rebreather 15.0 100 Height (Feet): 5 Height (Inches): 4.00 Weight (Pounds): 130 Gen: NAD CV: RRR Pulm: Coarse B/L, lots of oral secretions Abd: Soft, NTND Neuro: Awake Microbiology Date/Time Source Procedure Growth Status 07/10/20 22:00 Sputum Gram Stain - Final Resulted 07/10/20 22:00 Sputum Sputum Culture Pending Resulted Laboratory Tests Test 07/10/20 09:46 07/10/20 11:00 07/10/20 12:09 07/10/20 13:05 Arterial Blood pH 7.467 (7.350-7.450) 7.462 (7.350-7.450) Arterial Blood Partial Pressure CO2 38.5 mmHg (35.0-45.0) 41.3 mmHg (35.0-45.0) Arterial Blood Partial Pressure O2 64.8 mmHg (75.0-100.0) L 140.4 mmHg (75.0-100.0) H Arterial Blood HCO3 27.2 mmol/L (22.0-26.0) H 28.8 mmol/L (22.0-26.0) H Arterial Blood Oxygen Saturation 93.5 % (95-100) L 99.0 % (95-100) Arterial Blood Base Excess 3.4 (-2-2) H 4.6 (-2-2) H Richard Test Positive Positive White Blood Count 14.1 K/UL (4.8-10.8) H Red Blood Count 4.25 M/UL (4.70-6.10) L Hemoglobin 12.7 G/DL (14.2-18.0) L Hematocrit 39.6 % (42.0-52.0) L Mean Corpuscular Volume 93 FL (80-99) Mean Corpuscular Hemoglobin 29.9 PG (27.0-31.0) Mean Corpuscular Hemoglobin Concent 32.1 G/DL (32.0-36.0) Red Cell Distribution Width 15.1 % (11.6-14.8) H Platelet Count 253 K/UL (150-450) Mean Platelet Volume 9.8 FL (6.5-10.1) Neutrophils (%) (Auto) 84.2 % (45.0-75.0) H Lymphocytes (%) (Auto) 10.6 % (20.0-45.0) L Monocytes (%) (Auto) 4.5 % (1.0-10.0) Eosinophils (%) (Auto) 0.1 % (0.0-3.0) Basophils (%) (Auto) 0.5 % (0.0-2.0) Sodium Level 145 MMOL/L (136-145) Potassium Level 4.9 MMOL/L (3.5-5.1) Chloride Level 109 MMOL/L (98-107) H Carbon Dioxide Level 34 MMOL/L (21-32) H Blood Urea Nitrogen 10 mg/dL (7-18) Creatinine 1.2 MG/DL (0.55-1.30) Estimat Glomerular Filtration Rate 58.7 mL/min (>60) Glucose Level 148 MG/DL (74-106) H Calcium Level 9.1 MG/DL (8.5-10.1) Phosphorus Level 3.8 MG/DL (2.5-4.9) Magnesium Level 2.2 MG/DL (1.8-2.4) Total Bilirubin 0.5 MG/DL (0.2-1.0) Aspartate Amino Transf (AST/SGOT) 47 U/L (15-37) H Alanine Aminotransferase (ALT/SGPT) 41 U/L (12-78) Alkaline Phosphatase 240 U/L (46-116) H C-Reactive Protein, Quantitative 15.0 mg/dL (0.00-0.90) H Total Protein 6.6 G/DL (6.4-8.2) Albumin 1.8 G/DL (3.4-5.0) L Globulin 4.8 g/dL Albumin/Globulin Ratio 0.4 (1.0-2.7) L POC Whole Blood Glucose 148 MG/DL (74-106) H Test 07/10/20 18:13 07/10/20 20:36 07/11/20 00:27 07/11/20 04:00 POC Whole Blood Glucose 151 MG/DL (74-106) H Pending 169 MG/DL (74-106) H White Blood Count 15.1 K/UL (4.8-10.8) H Red Blood Count 4.18 M/UL (4.70-6.10) L Hemoglobin 12.7 G/DL (14.2-18.0) L Hematocrit 38.4 % (42.0-52.0) L Mean Corpuscular Volume 92 FL (80-99) Mean Corpuscular Hemoglobin 30.3 PG (27.0-31.0) Mean Corpuscular Hemoglobin Concent 32.9 G/DL (32.0-36.0) Red Cell Distribution Width 15.4 % (11.6-14.8) H Platelet Count 235 K/UL (150-450) Mean Platelet Volume 9.7 FL (6.5-10.1) Neutrophils (%) (Auto) 81.6 % (45.0-75.0) H Lymphocytes (%) (Auto) 13.8 % (20.0-45.0) L Monocytes (%) (Auto) 4.1 % (1.0-10.0) Eosinophils (%) (Auto) 0.1 % (0.0-3.0) Basophils (%) (Auto) 0.5 % (0.0-2.0) Sodium Level 145 MMOL/L (136-145) Potassium Level 4.4 MMOL/L (3.5-5.1) Chloride Level 107 MMOL/L (98-107) Carbon Dioxide Level 31 MMOL/L (21-32) Blood Urea Nitrogen 18 mg/dL (7-18) Creatinine 1.7 MG/DL (0.55-1.30) H Estimat Glomerular Filtration Rate 39.3 mL/min (>60) Glucose Level 197 MG/DL (74-106) H Calcium Level 9.1 MG/DL (8.5-10.1) Total Bilirubin 0.6 MG/DL (0.2-1.0) Aspartate Amino Transf (AST/SGOT) 30 U/L (15-37) Alanine Aminotransferase (ALT/SGPT) 35 U/L (12-78) Alkaline Phosphatase 215 U/L (46-116) H Total Protein 6.6 G/DL (6.4-8.2) Albumin 1.7 G/DL (3.4-5.0) L Globulin 4.9 g/dL Albumin/Globulin Ratio 0.3 (1.0-2.7) L Test 07/11/20 05:32 POC Whole Blood Glucose Pending Current Medications Medications (Trade) Dose Ordered Sig/Ankush Route PRN Reason Start Time Stop Time Status Last Admin Dose Admin Acetaminophen (Tylenol) 650 mg Q4H PRN ORAL Temp >100.5 07/03/20 20:30 08/02/20 20:29 07/10/20 23:53 Dextrose (Dextrose 50%) 50 ml Q30M PRN IV Hypoglycemia 07/03/20 22:45 10/01/20 22:44 Heparin Sodium (Porcine) (Heparin 5000 units/ml) 5,000 units EVERY 12 HOURS SUBQ 07/03/20 21:00 08/17/20 20:59 07/10/20 21:06 Insulin Aspart (NovoLOG) BEFORE MEALS AND HS SUBQ 07/04/20 06:30 10/02/20 06:29 07/11/20 05:39 Nitroglycerin (Ntg) 0.4 mg Q5M PRN SL Prn Chest Pain 07/03/20 20:30 08/02/20 20:29 Ondansetron HCl (Zofran) 4 mg Q6H PRN IVP Nausea & Vomiting 07/03/20 20:30 08/02/20 20:29 Piperacillin Sod/ Tazobactam Sod 3.375 gm/Sodium Chloride 110 ml @ 27.5 mls/hr EVERY 8 HOURS IVPB 07/10/20 14:00 07/15/20 13:59 07/11/20 05:31 Polyethylene Glycol (Miralax) 17 gm DAILYPRN PRN ORAL Constipation 07/03/20 20:30 08/02/20 20:29 Promethazine HCl/ Codeine (Phenergan with Codeine) 5 ml Q4H PRN ORAL For Cough 07/03/20 20:30 08/02/20 20:29 Tamsulosin HCl (Flomax) 0.4 mg DAILY ORAL 07/04/20 09:00 08/03/20 08:59 07/10/20 08:54 Vancomycin HCl (Vanco pharmacy to dose) 1 ea DAILY PRN MISC Per rx protocol 07/03/20 20:30 08/02/20 20:29 Vancomycin HCl 1 gm/Sodium Chloride 275 ml @ 183.708 mls/hr Q24H IVPB 07/08/20 10:00 07/13/20 09:59 07/10/20 08:58 Aaron Price MD Jul 11, 2020 09:28
[2020-07-11] MEDS: Vancomycin 1 GM in NS 275 ML IVPB SCH (09:32)
[2020-07-11] MEDS: Tamsulosin 0.4mg cap ORAL SCH ×2 (09:35→20:33)
[2020-07-11] MEDS: Heparin 5000 units/ml inj SUBQ SCH ×2 (09:35→20:35)
--- NOTE | 2020-07-11 10:00 | NUR ---
NURSE NOTES: suctioned pt multiple times but he is still very congested. RT will deep suctioned pt.
[2020-07-11 12:00] VITALS: BP 115/59
--- NOTE | 2020-07-11 15:16 | Cardiac Electrophysiology PN ---
Assessment/Plan Assessment/Plan 1. Accelerated junctional rhythm. Not bradycardic. Ruled out for GA Echo showed ejection fraction of 55%. 2. Sepsis, on broad-spectrum IV antibiotic. 3. Respiratory failure, on antibiotic and NRBFM. 4. Dehydration. 5. Acute renal failure. 6. Electrolyte imbalance. 7. History of CHF, but echocardiogram showed normal left ventricular systolic function. 8. History of previous COVID infection in May 2020 and Active Covid now in isolation 9. Dementia. DW RN Subjective Subjective In SR in NAD in Covid isolation.On NRB FM Objective Last 24 Hour Vital Signs Date Time Temp Pulse Resp B/P (MAP) Pulse Ox O2 Delivery O2 Flow Rate FiO2 07/11/20 12:00 15.0 100 07/11/20 12:00 97.0 96 22 115/59 (77) 95 07/11/20 08:00 Non-Rebreather 15.0 07/11/20 08:00 97.2 92 18 114/67 (83) 95 07/11/20 08:00 15.0 100 07/11/20 08:00 95 07/11/20 07:15 96 Non-Rebreather 15.0 100 07/11/20 04:00 98.1 98 30 117/76 (90) 95 07/11/20 04:00 103 07/11/20 04:00 Non-Rebreather 15.0 07/11/20 04:00 15.0 100 07/11/20 00:23 100.3 07/11/20 00:00 100.9 135 28 108/86 (93) 96 07/11/20 00:00 Non-Rebreather 15.0 07/11/20 00:00 15.0 100 07/11/20 00:00 124 07/10/20 20:00 131 07/10/20 20:00 15.0 100 07/10/20 20:00 99.3 137 26 111/73 (86) 96 07/10/20 18:50 95 Non-Rebreather 15.0 100 07/10/20 16:00 15.0 100 07/10/20 16:00 98.7 115 20 120/71 (87) 97 07/10/20 16:00 110 Intake and Output 07/10/20 07/11/20 19:00 07:00 Intake Total 60 ml 160 ml Output Total 650 ml 320 ml Balance -590 ml -160 ml Tube Feeding 60 ml 60 ml Blood Product 100 ml Output Urine Total 650 ml 320 ml Laboratory Tests Test 07/10/20 18:13 07/10/20 20:36 07/11/20 00:27 07/11/20 04:00 POC Whole Blood Glucose 151 MG/DL (74-106) H Pending 169 MG/DL (74-106) H White Blood Count 15.1 K/UL (4.8-10.8) H Red Blood Count 4.18 M/UL (4.70-6.10) L Hemoglobin 12.7 G/DL (14.2-18.0) L Hematocrit 38.4 % (42.0-52.0) L Mean Corpuscular Volume 92 FL (80-99) Mean Corpuscular Hemoglobin 30.3 PG (27.0-31.0) Mean Corpuscular Hemoglobin Concent 32.9 G/DL (32.0-36.0) Red Cell Distribution Width 15.4 % (11.6-14.8) H Platelet Count 235 K/UL (150-450) Mean Platelet Volume 9.7 FL (6.5-10.1) Neutrophils (%) (Auto) 81.6 % (45.0-75.0) H Lymphocytes (%) (Auto) 13.8 % (20.0-45.0) L Monocytes (%) (Auto) 4.1 % (1.0-10.0) Eosinophils (%) (Auto) 0.1 % (0.0-3.0) Basophils (%) (Auto) 0.5 % (0.0-2.0) Sodium Level 145 MMOL/L (136-145) Potassium Level 4.4 MMOL/L (3.5-5.1) Chloride Level 107 MMOL/L (98-107) Carbon Dioxide Level 31 MMOL/L (21-32) Blood Urea Nitrogen 18 mg/dL (7-18) Creatinine 1.7 MG/DL (0.55-1.30) H Estimat Glomerular Filtration Rate 39.3 mL/min (>60) Glucose Level 197 MG/DL (74-106) H Calcium Level 9.1 MG/DL (8.5-10.1) Total Bilirubin 0.6 MG/DL (0.2-1.0) Aspartate Amino Transf (AST/SGOT) 30 U/L (15-37) Alanine Aminotransferase (ALT/SGPT) 35 U/L (12-78) Alkaline Phosphatase 215 U/L (46-116) H Total Protein 6.6 G/DL (6.4-8.2) Albumin 1.7 G/DL (3.4-5.0) L Globulin 4.9 g/dL Albumin/Globulin Ratio 0.3 (1.0-2.7) L Test 07/11/20 05:32 POC Whole Blood Glucose Pending Microbiology Date/Time Source Procedure Growth Status 07/10/20 22:00 Sputum Gram Stain - Final Resulted 07/10/20 22:00 Sputum Sputum Culture Pending Resulted Objective HEAD AND NECK: No JVD. NRB FM LUNGS: Coarse rhonchi. CARDIOVASCULAR: Irregular S1 and S2 with no gallop. ABDOMEN: Soft. EXTREMITIES: No pitting edema. Klever Matt MD Jul 11, 2020 15:16
[2020-07-11 16:00] VITALS: BP 94/58
--- NOTE | 2020-07-11 16:41 | Internal Med Progress Note ---
Subjective Date of Service: Jul 11, 2020 Physician Name Dano Groves Attending Physician Ahsan Hodges MD Current Medications Medications (Trade) Dose Ordered Sig/Ankush Route PRN Reason Start Time Stop Time Status Last Admin Dose Admin Acetaminophen (Tylenol) 650 mg Q4H PRN ORAL Temp >100.5 07/03/20 20:30 08/02/20 20:29 07/10/20 23:53 Dextrose (Dextrose 50%) 50 ml Q30M PRN IV Hypoglycemia 07/03/20 22:45 10/01/20 22:44 Heparin Sodium (Porcine) (Heparin 5000 units/ml) 5,000 units EVERY 12 HOURS SUBQ 07/03/20 21:00 08/17/20 20:59 07/11/20 09:35 Insulin Aspart (NovoLOG) BEFORE MEALS AND HS SUBQ 07/04/20 06:30 10/02/20 06:29 07/11/20 11:30 Nitroglycerin (Ntg) 0.4 mg Q5M PRN SL Prn Chest Pain 07/03/20 20:30 08/02/20 20:29 Ondansetron HCl (Zofran) 4 mg Q6H PRN IVP Nausea & Vomiting 07/03/20 20:30 08/02/20 20:29 Piperacillin Sod/ Tazobactam Sod 3.375 gm/Sodium Chloride 110 ml @ 27.5 mls/hr EVERY 8 HOURS IVPB 07/10/20 14:00 07/15/20 13:59 07/11/20 15:20 Polyethylene Glycol (Miralax) 17 gm DAILYPRN PRN ORAL Constipation 07/03/20 20:30 08/02/20 20:29 Promethazine HCl/ Codeine (Phenergan with Codeine) 5 ml Q4H PRN ORAL For Cough 07/03/20 20:30 08/02/20 20:29 Tamsulosin HCl (Flomax) 0.4 mg DAILY ORAL 07/04/20 09:00 08/03/20 08:59 07/11/20 09:35 Vancomycin HCl (Vanco pharmacy to dose) 1 ea DAILY PRN MISC Per rx protocol 07/03/20 20:30 08/02/20 20:29 Vancomycin HCl 1 gm/Sodium Chloride 275 ml @ 183.708 mls/hr Q24H IVPB 07/08/20 10:00 07/13/20 09:59 07/11/20 09:32 Allergies: Coded Allergies: No Known Allergies (Unverified , 04/30/12) ROS Limited/Unobtainable: Yes Subjective 79 YO M admitted with shortness of breath. Now pneumonia; previously COVID positive. Cover for Int laina-Dr Hodges. Objective Last Vital Signs Date Time Temp Pulse Resp B/P (MAP) Pulse Ox O2 Delivery O2 Flow Rate FiO2 07/11/20 15:50 90 07/11/20 12:00 15.0 100 07/11/20 12:00 97.0 22 115/59 (77) 95 07/11/20 12:00 Non-Rebreather Laboratory Tests Test 07/10/20 18:13 07/10/20 20:36 07/11/20 00:27 07/11/20 04:00 POC Whole Blood Glucose 151 MG/DL (74-106) H Pending 169 MG/DL (74-106) H White Blood Count 15.1 K/UL (4.8-10.8) H Red Blood Count 4.18 M/UL (4.70-6.10) L Hemoglobin 12.7 G/DL (14.2-18.0) L Hematocrit 38.4 % (42.0-52.0) L Mean Corpuscular Volume 92 FL (80-99) Mean Corpuscular Hemoglobin 30.3 PG (27.0-31.0) Mean Corpuscular Hemoglobin Concent 32.9 G/DL (32.0-36.0) Red Cell Distribution Width 15.4 % (11.6-14.8) H Platelet Count 235 K/UL (150-450) Mean Platelet Volume 9.7 FL (6.5-10.1) Neutrophils (%) (Auto) 81.6 % (45.0-75.0) H Lymphocytes (%) (Auto) 13.8 % (20.0-45.0) L Monocytes (%) (Auto) 4.1 % (1.0-10.0) Eosinophils (%) (Auto) 0.1 % (0.0-3.0) Basophils (%) (Auto) 0.5 % (0.0-2.0) Sodium Level 145 MMOL/L (136-145) Potassium Level 4.4 MMOL/L (3.5-5.1) Chloride Level 107 MMOL/L (98-107) Carbon Dioxide Level 31 MMOL/L (21-32) Blood Urea Nitrogen 18 mg/dL (7-18) Creatinine 1.7 MG/DL (0.55-1.30) H Estimat Glomerular Filtration Rate 39.3 mL/min (>60) Glucose Level 197 MG/DL (74-106) H Calcium Level 9.1 MG/DL (8.5-10.1) Total Bilirubin 0.6 MG/DL (0.2-1.0) Aspartate Amino Transf (AST/SGOT) 30 U/L (15-37) Alanine Aminotransferase (ALT/SGPT) 35 U/L (12-78) Alkaline Phosphatase 215 U/L (46-116) H Total Protein 6.6 G/DL (6.4-8.2) Albumin 1.7 G/DL (3.4-5.0) L Globulin 4.9 g/dL Albumin/Globulin Ratio 0.3 (1.0-2.7) L Test 07/11/20 05:32 POC Whole Blood Glucose Pending Microbiology Date/Time Source Procedure Growth Status 07/10/20 22:00 Sputum Gram Stain - Final Resulted 07/10/20 22:00 Sputum Sputum Culture Pending Resulted Intake and Output 07/10/20 07/11/20 19:00 07:00 Intake Total 60 ml 160 ml Output Total 650 ml 320 ml Balance -590 ml -160 ml Tube Feeding 60 ml 60 ml Blood Product 100 ml Output Urine Total 650 ml 320 ml Objective PHYSICAL EXAMINATION: GENERAL: The patient awake with deep stimuli, open his eyes, however, cannot follow commands. The patient is on a Ventimask at this time, chronically ill-appearing. HEAD AND NECK: Pupils are equal and reactive to light. Anicteric. NECK: Supple. No JVD. LUNGS: Good air entry. No wheezing or rhonchi, however the patient has a coarse breath sounds. Decreased air in bases. HEART: S1, S2. Regular rhythm. Distant heart sounds. No murmur or gallop. ABDOMEN: Soft, nondistended, nontender. Positive bowel sounds. EXTREMITIES: No cyanosis, clubbing, or edema. NEUROLOGIC: Very limited secondary to the patient's status, cannot follow commands. Opens his eyes with deep stimuli and moving extremities spontaneously. Assessment/Plan Assessment/Plan ASSESSMENT: 1. Acute hypoxemic respiratory failure, most likely secondary to pneumonia and sepsis. 2. Sepsis secondary to urinary tract infection and pneumonia. 3. pneumonia=MRSA 4. Acute kidney injury on chronic renal insufficiency. 5. Dehydration. 6. History of chronic congestive heart failure. 7. Diabetes type 2. 8. Dyslipidemia. 9. Hypertension. 10. Alzheimer's disease. 11. COVID 19 previous positive PLAN: 1. Telemetry status 2. Dr. Carreno,=Pulmonary Critical Care 3. Dr. Cho = Inf Dis. 4. IV= D5W due to the hypernatremia and dehydration. 5. antibiotics = vancomycin and zosyn 6. Code status is full code. 7. DVT prophylaxis is heparin subcutaneous. Dano Groves MD Jul 11, 2020 16:41
--- NOTE | 2020-07-11 19:21 | NUR ---
NURSE HAND-OFF REPORT: Important Events on Shift: pt needs to be suctioned constantly, he will get tachycardic otherwise Patient Status: full Diet: [place] tube feeding Pending Orders: vanco trough Pending Results/Labs: Pending MD notification: Latest Vital Signs: Temperature 98.1 , Pulse 91 , B/P 94 /58 , Respiratory Rate 20 , O2 SAT 97 , Non-Rebreather, O2 Flow Rate 15.0 . Vital Sign Comment: EKG Rhythm: Sinus Rhythm Rhythm change?: N MD Notified?: Y -Left Message for Dr. Hodges, No cardio on the case. MD Response: Latest Gonzalez Fall Score: 50 Fall Risk: High Risk Safety Measures: Call light Within Reach, Bed Alarm Zone 1, Side Rails Side Rails x3, Bed position Low and Locked. Fall Precautions: y Yellow Socks y Yellow Gown y Door Sign Patient Fall Education Report given to Micheline/rn.
--- NOTE | 2020-07-11 19:25 | NUR ---
NURSE NOTES: RECEIVED REPORT FROM FLORES GALLARDO. PT IN BED AWAKE, EYES OPEN, ALERT/ORIENTED X1. ON O2 VIA NON-REBREATHER AT 15L/MIN, SATING AT 97-99%. OIL FIELD PUMPER IN PALACE. NGT IN PLACE & PATENT RUNNING GLUCERNA 1.2 AT 60CC/HR, HEAD OF BED ELEVATED, ASPIRATION PRECAUTION F/C IN PLACE & PATENT DRAINING TO GRAVITY YELLOW URINE. BILATERAL SOFT WRIST RESTAINTS APPLIED, NO SKIN BREAK DOWN, NO SWELLING, BILATERAL PULSES PALATABL. BED IN LOW POISTION & LOCKED, SIDE RAILS UP X2. BED ALARM ON,. CALL LIGHT WITH IN REACH
--- NOTE | 2020-07-11 19:38 | Nephrology Progress Note ---
Assessment/Plan Problem List: (1) Dehydration (2) MELANIE (acute kidney injury) (3) Renal failure (ARF), acute on chronic (4) Hypoxia (5) Acute encephalopathy (6) Electrolyte imbalance Assessment 79-year-old male is admitted with acute hypoxic respiratory failure most likely secondary to pneumonia and sepsis, UTI. Acute on chronic renal failure Dehydration Electrolyte imbalances, hypernatremia Hypoalbuminemia Diabetes type 2 History of congestive heart failure Hypertension Hyperlipemia Alzheimer's Previous COVID-19 infection in May 2020 Plan July 11: Patient on nonrebreather mask. Transfer to telemetry when seen this morning. Labs noted. Continue per consultants. Serum creatinine erin to 1.7. Continue to monitor renal parameters. Continue to monitor vancomycin level July 10: Patient is not doing well clinically. Mild respiratory distress. ABG noted. Somewhat hypoxic. CBC and chemistry panel ordered. Discussed with FLORES Cho. Will defer to pulmonary management to specialist. Continue per ID. Renal parameters remained stable as of July 09. July 09: Labs reviewed. Renal parameters stable. Continue per consultants. July 08: Labs reviewed. Potassium via NG tube ordered. IV fluids stopped. Continue per consultants. July 07: Labs reviewed. Low potassium and low phosphorus replaced. Continue per consultants. Remains stable from renal standpoint of view. July 06: Patient remains n.p.o. IV fluid down to 50 cc an hour. Potassium supplement intravenously ordered. Continue per consultants. Previously: Patient is n.p.o., will continue on IV fluid of D5W 75 cc an hour We will monitor electrolytes and renal parameters Avoid nephrotoxic's Start p.o. when he clears by speech therapist, meanwhile aspiration precautions Keep the blood pressure and blood sugar in check Per orders Subjective ROS Limited/Unobtainable: Yes Objective Objective Last 24 Hour Vital Signs Date Time Temp Pulse Resp B/P (MAP) Pulse Ox O2 Delivery O2 Flow Rate FiO2 07/11/20 16:00 15.0 100 07/11/20 16:00 98.1 91 20 94/58 (70) 97 07/11/20 16:00 Non-Rebreather 15.0 07/11/20 15:50 90 07/11/20 12:00 15.0 100 07/11/20 12:00 97.0 96 22 115/59 (77) 95 07/11/20 12:00 Non-Rebreather 15.0 07/11/20 12:00 102 07/11/20 08:00 Non-Rebreather 15.0 07/11/20 08:00 97.2 92 18 114/67 (83) 95 07/11/20 08:00 15.0 100 07/11/20 08:00 95 07/11/20 07:15 96 Non-Rebreather 15.0 100 07/11/20 04:00 98.1 98 30 117/76 (90) 95 07/11/20 04:00 103 07/11/20 04:00 Non-Rebreather 15.0 07/11/20 04:00 15.0 100 07/11/20 00:23 100.3 07/11/20 00:00 100.9 135 28 108/86 (93) 96 07/11/20 00:00 Non-Rebreather 15.0 07/11/20 00:00 15.0 100 07/11/20 00:00 124 07/10/20 20:00 131 07/10/20 20:00 15.0 100 07/10/20 20:00 99.3 137 26 111/73 (86) 96 Intake and Output 07/10/20 07/11/20 19:00 07:00 Intake Total 60 ml 160 ml Output Total 650 ml 320 ml Balance -590 ml -160 ml Tube Feeding 60 ml 60 ml Blood Product 100 ml Output Urine Total 650 ml 320 ml Current Medications Medications (Trade) Dose Ordered Sig/Ankush Route PRN Reason Start Time Stop Time Status Last Admin Dose Admin Acetaminophen (Tylenol) 650 mg Q4H PRN ORAL Temp >100.5 07/03/20 20:30 08/02/20 20:29 07/10/20 23:53 Dextrose (Dextrose 50%) 50 ml Q30M PRN IV Hypoglycemia 07/03/20 22:45 10/01/20 22:44 Heparin Sodium (Porcine) (Heparin 5000 units/ml) 5,000 units EVERY 12 HOURS SUBQ 07/03/20 21:00 08/17/20 20:59 07/11/20 09:35 Insulin Aspart (NovoLOG) BEFORE MEALS AND HS SUBQ 07/04/20 06:30 10/02/20 06:29 07/11/20 17:06 Nitroglycerin (Ntg) 0.4 mg Q5M PRN SL Prn Chest Pain 07/03/20 20:30 08/02/20 20:29 Ondansetron HCl (Zofran) 4 mg Q6H PRN IVP Nausea & Vomiting 07/03/20 20:30 08/02/20 20:29 Piperacillin Sod/ Tazobactam Sod 3.375 gm/Sodium Chloride 110 ml @ 27.5 mls/hr EVERY 8 HOURS IVPB 07/10/20 14:00 07/15/20 13:59 07/11/20 15:20 Polyethylene Glycol (Miralax) 17 gm DAILYPRN PRN ORAL Constipation 07/03/20 20:30 08/02/20 20:29 Promethazine HCl/ Codeine (Phenergan with Codeine) 5 ml Q4H PRN ORAL For Cough 07/03/20 20:30 08/02/20 20:29 Tamsulosin HCl (Flomax) 0.4 mg DAILY ORAL 07/04/20 09:00 08/03/20 08:59 07/11/20 09:35 Vancomycin HCl ([facility] pharmacy to dose) 1 ea DAILY PRN MISC Per rx protocol 07/03/20 20:30 08/02/20 20:29 Vancomycin HCl 1 gm/Sodium Chloride 275 ml @ 183.708 mls/hr Q24H IVPB 07/08/20 10:00 07/13/20 09:59 07/11/20 09:32 Laboratory Tests 07/10/20 20:36: POC Whole Blood Glucose [Pending] 07/11/20 00:27: POC Whole Blood Glucose 169H 07/11/20 04:00: White Blood Count 15.1H, Red Blood Count 4.18L, Hemoglobin 12.7L, Hematocrit 38.4L, Mean Corpuscular Volume 92, Mean Corpuscular Hemoglobin 30.3, Mean Corpuscular Hemoglobin Concent 32.9, Red Cell Distribution Width 15.4H, Platelet Count 235, Mean Platelet Volume 9.7, Neutrophils (%) (Auto) 81.6H, Lymphocytes (%) (Auto) 13.8L, Monocytes (%) (Auto) 4.1, Eosinophils (%) (Auto) 0.1, Basophils (%) (Auto) 0.5, Sodium Level 145, Potassium Level 4.4, Chloride Level 107, Carbon Dioxide Level 31, Blood Urea Nitrogen 18, Creatinine 1.7H, Estimat Glomerular Filtration Rate 39.3, Glucose Level 197H, Calcium Level 9.1, Total Bilirubin 0.6, Aspartate Amino Transf (AST/SGOT) 30, Alanine Aminotransferase (ALT/SGPT) 35, Alkaline Phosphatase 215H, Total Protein 6.6, Albumin 1.7L, Globulin 4.9, Albumin/Globulin Ratio 0.3L 07/11/20 05:32: POC Whole Blood Glucose [Pending] Height (Feet): 5 Height (Inches): 4.00 Weight (Pounds): 130 General Appearance: mild distress EENT: other - On nonrebreather mask Cardiovascular: tachycardia Respiratory/Chest: decreased breath sounds Abdomen: distended Tino Connors MD Jul 11, 2020 19:38
[2020-07-11 20:00] VITALS: BP 115/61
[2020-07-12] VITALS: BP 92/56
[2020-07-12 04:00] VITALS: BP 105/57
[2020-07-12] MEDS: Piperacillin/Tazobactam 3.375 GM in NS 110 ML IVPB SCH ×3 (05:30→21:41)
[2020-07-12] MEDS: NovoLOG Insulin Flexpen SUBQ SCH ×4 (06:30→20:47)
--- NOTE | 2020-07-12 07:25 | NUR ---
NURSE HAND-OFF REPORT: Important: n/a Patient Status: STABLE Diet: NGT GLUCERNA 1.2 AT 60CC/HR Pending Orders: [] Pending Results/Labs:[] Pending MD notification:[] Latest Vital Signs: Temperature 98.7 , Pulse 83 , B/P 105 /57 , Respiratory Rate 24 , O2 SAT 98 , Non-Rebreather, O2 Flow Rate 15.0 . Vital Sign Comment: [] EKG Rhythm: Sinus Rhythm Rhythm change?: N MD Notified?: Y -Left Message for Dr. Hodges, No cardio on the case. MD Response: Latest Gonzalez Fall Score: 50 Fall Risk: High Risk Safety Measures: Call light Within Reach, Bed Alarm Zone 1, Side Rails Side Rails x3, Bed position Low and Locked. Fall Precautions: Yellow Socks Yellow Gown Door Sign Patient Fall Education Report given to FLORES ROCKWELL.
--- NOTE | 2020-07-12 07:30 | NUR ---
NURSE NOTES: pt in bed AOx1 non verbal. Pt on management professional no signs of cardiac or respiratory distress at this time. Pt sounds less congested this morning, he was just suctioned by RT. [place] tube is still safely taped to pt skin. Pt on restrains. Bed locked and in lowest position. Call light within reach. will continue to monitor pt.
[2020-07-12 08:00] VITALS: BP 110/87
[2020-07-12 08:37] LABS: HEMATOCRIT 32.2 % (42.0-52.0); HEMOGLOBIN 10.4 G/DL (14.2-18.0); MEAN CORPUSCULAR VOLUME 95 FL (80-99); PLATELET COUNT 224 K/UL (150-450); RED BLOOD COUNT 3.41 M/UL (4.70-6.10); RED CELL DISTRIBUTION WIDTH 14.7 % (11.6-14.8); WHITE BLOOD COUNT 14.5 K/UL (4.8-10.8)
[2020-07-12 08:42] LABS: ALBUMIN 1.4 G/DL (3.4-5.0); ALBUMIN/GLOBULIN RATIO 0.3 (1.0-2.7); BILIRUBIN,TOTAL 0.5 MG/DL (0.2-1.0); CALCIUM 8.6 MG/DL (8.5-10.1); CREATININE 1.3 MG/DL (0.55-1.30); PHOSPHORUS 3.2 MG/DL (2.5-4.9); POTASSIUM 3.9 MMOL/L (3.5-5.1)
[2020-07-12] MEDS: Vancomycin 1 GM in NS 275 ML IVPB SCH (09:40)
[2020-07-12] MEDS: Heparin 5000 units/ml inj SUBQ SCH ×2 (09:42→20:44)
[2020-07-12] MEDS: Tamsulosin 0.4mg cap ORAL SCH ×2 (09:45→18:22)
--- NOTE | 2020-07-12 09:57 | Pulmonology Progress Note ---
Subjective ROS Limited/Unobtainable: Yes Interval Events: unchagned Allergies: Coded Allergies: No Known Allergies (Unverified , 04/30/12) Objective Last 24 Hour Vital Signs Date Time Temp Pulse Resp B/P (MAP) Pulse Ox O2 Delivery O2 Flow Rate FiO2 07/12/20 07:44 100 Non-Rebreather 15.0 100 07/12/20 04:00 98.7 87 24 105/57 (73) 98 07/12/20 04:00 83 07/12/20 04:00 15.0 100 07/12/20 00:00 99.6 86 24 92/56 (68) 99 07/12/20 00:00 15.0 100 07/12/20 00:00 85 07/11/20 21:00 Non-Rebreather 15.0 07/11/20 20:00 94 Non-Rebreather 15.0 100 07/11/20 20:00 15.0 100 07/11/20 20:00 99.8 84 24 115/61 (79) 98 07/11/20 20:00 83 07/11/20 16:00 15.0 100 07/11/20 16:00 98.1 91 20 94/58 (70) 97 07/11/20 16:00 Non-Rebreather 15.0 07/11/20 15:50 90 07/11/20 12:00 15.0 100 07/11/20 12:00 97.0 96 22 115/59 (77) 95 07/11/20 12:00 Non-Rebreather 15.0 07/11/20 12:00 102 Intake and Output 07/11/20 07/12/20 19:00 07:00 Intake Total 480 ml Output Total 300 ml Balance -300 ml 480 ml Tube Feeding 480 ml Output Urine Total 300 ml # Bowel Movements 1 General Appearance: WD/WN, no acute distress HEENT: normocephalic, atraumatic Respiratory: chest wall non-tender, respiratory distress, rhonchi - left, rhonchi - right Cardiovascular: normal rate Abdomen: normal bowel sounds, no organomegaly Genitourinary: normal external genitalia Microbiology Date/Time Source Procedure Growth Status 07/10/20 22:00 Sputum Gram Stain - Final Resulted 07/10/20 22:00 Sputum Culture - Preliminary Staphylococcus Aureus Gram Negative Dionte Resulted Laboratory Tests 10/31/20 20:49: POC Whole Blood Glucose 152H 07/12/20 00:12: POC Whole Blood Glucose 126H 07/12/20 05:39: POC Whole Blood Glucose 133H 07/12/20 07:30: White Blood Count 14.5H, Red Blood Count 3.41L, Hemoglobin 10.4L, Hematocrit 32.2L, Mean Corpuscular Volume 95, Mean Corpuscular Hemoglobin 30.5, Mean Corpuscular Hemoglobin Concent 32.3, Red Cell Distribution Width 14.7, Platelet Count 224, Mean Platelet Volume 9.5, Neutrophils (%) (Auto) , Lymphocytes (%) (Auto) , Monocytes (%) (Auto) , Eosinophils (%) (Auto) , Basophils (%) (Auto) , Neutrophils % (Manual) [Pending], Lymphocytes % (Manual) [Pending], Platelet Estimate [Pending], Platelet Morphology [Pending], Sodium Level 149H, Potassium Level 3.9, Chloride Level 111H, Carbon Dioxide Level 31, Anion Gap 7, Blood Urea Nitrogen 24H, Creatinine 1.3, Estimat Glomerular Filtration Rate 53.5, Glucose Level 179H, Uric Acid 4.8, Calcium Level 8.6, Phosphorus Level 3.2, Magnesium Level 2.5H, Total Bilirubin 0.5, Aspartate Amino Transf (AST/SGOT) 24, Alanine Aminotransferase (ALT/SGPT) 29, Alkaline Phosphatase 194H, C-Reactive Protein, Quantitative 24.2H, Pro-B-Type Natriuretic Peptide 355H, Total Protein 6.6, Albumin 1.4L, Globulin 5.2, Albumin/Globulin Ratio 0.3L, Random Vancomycin Level 11.9 Current Medications Medications (Trade) Dose Ordered Sig/Ankush Route PRN Reason Start Time Stop Time Status Last Admin Dose Admin Acetaminophen (Tylenol) 650 mg Q4H PRN ORAL Temp >100.5 07/03/20 20:30 08/02/20 20:29 07/10/20 23:53 Dextrose (Dextrose 50%) 50 ml Q30M PRN IV Hypoglycemia 07/03/20 22:45 10/01/20 22:44 Heparin Sodium (Porcine) (Heparin 5000 units/ml) 5,000 units EVERY 12 HOURS SUBQ 07/03/20 21:00 08/17/20 20:59 07/12/20 09:42 Insulin Aspart (NovoLOG) BEFORE MEALS AND HS SUBQ 07/04/20 06:30 10/02/20 06:29 07/11/20 20:59 Nitroglycerin (Ntg) 0.4 mg Q5M PRN SL Prn Chest Pain 07/03/20 20:30 08/02/20 20:29 Ondansetron HCl (Zofran) 4 mg Q6H PRN IVP Nausea & Vomiting 07/03/20 20:30 08/02/20 20:29 Piperacillin Sod/ Tazobactam Sod 3.375 gm/Sodium Chloride 110 ml @ 27.5 mls/hr EVERY 8 HOURS IVPB 07/10/20 14:00 07/15/20 13:59 07/12/20 05:30 Polyethylene Glycol (Miralax) 17 gm DAILYPRN PRN ORAL Constipation 07/03/20 20:30 08/02/20 20:29 Promethazine HCl/ Codeine (Phenergan with Codeine) 5 ml Q4H PRN ORAL For Cough 07/03/20 20:30 08/02/20 20:29 Tamsulosin HCl (Flomax) 0.4 mg BID ORAL 07/11/20 19:45 08/03/20 08:59 07/12/20 09:45 Vancomycin HCl (Vanco pharmacy to dose) 1 ea DAILY PRN MISC Per rx protocol 07/03/20 20:30 08/02/20 20:29 Vancomycin HCl 1 gm/Sodium Chloride 275 ml @ 183.708 mls/hr Q24H IVPB 07/08/20 10:00 07/13/20 09:59 07/12/20 09:40 Assessment/Plan Problems: (1) 2019 novel coronavirus disease (COVID-19) (2) Severe sepsis (3) Acute encephalopathy (4) HTN (hypertension) (5) Aphasia (6) Alzheimer's dementia (7) History of CVA (cerebrovascular accident) (8) BPH (benign prostatic hyperplasia) Assessment/Plan cxr 07/10: unchanged CRP rising titrate fio2 to sat of 92% frequent suctioning continue abx check electrolytes tolerating feeding aspiration precaution dvt prophylaxis. Kya Carreno MD Jul 12, 2020 09:57
[2020-07-12 12:00] VITALS: BP_SYST 110; BP_SYST 93; BP_DIAS 80; BP_DIAS 87
--- NOTE | 2020-07-12 12:45 | Nephrology Progress Note ---
Assessment/Plan Problem List: (1) Dehydration (2) MELANIE (acute kidney injury) (3) Renal failure (ARF), acute on chronic (4) Hypoxia (5) Acute encephalopathy (6) Electrolyte imbalance Assessment 79-year-old male is admitted with acute hypoxic respiratory failure most likely secondary to pneumonia and sepsis, UTI. Acute on chronic renal failure Dehydration Electrolyte imbalances, hypernatremia Hypoalbuminemia Diabetes type 2 History of congestive heart failure Hypertension Hyperlipemia Alzheimer's Previous COVID-19 infection in May 2020 Plan July 12: Patient on nonrebreather mask. Labs noted. Serum creatinine down to 1.3. Continue per consultants. July 11: Patient on nonrebreather mask. Transfer to telemetry when seen this morning. Labs noted. Continue per consultants. Serum creatinine erin to 1.7. Continue to monitor renal parameters. Continue to monitor vancomycin level July 10: Patient is not doing well clinically. Mild respiratory distress. ABG noted. Somewhat hypoxic. CBC and chemistry panel ordered. Discussed with FLORES Cho. Will defer to pulmonary management to specialist. Continue per ID. Renal parameters remained stable as of July 09. July 09: Labs reviewed. Renal parameters stable. Continue per consultants. July 08: Labs reviewed. Potassium via NG tube ordered. IV fluids stopped. Continue per consultants. July 07: Labs reviewed. Low potassium and low phosphorus replaced. Continue per consultants. Remains stable from renal standpoint of view. July 06: Patient remains n.p.o. IV fluid down to 50 cc an hour. Potassium supplement intravenously ordered. Continue per consultants. Previously: Patient is n.p.o., will continue on IV fluid of D5W 75 cc an hour We will monitor electrolytes and renal parameters Avoid nephrotoxic's Start p.o. when he clears by speech therapist, meanwhile aspiration precautions Keep the blood pressure and blood sugar in check Per orders Subjective ROS Limited/Unobtainable: Yes Objective Objective Last 24 Hour Vital Signs Date Time Temp Pulse Resp B/P (MAP) Pulse Ox O2 Delivery O2 Flow Rate FiO2 07/12/20 09:00 Non-Rebreather 15.0 07/12/20 08:00 97.9 100 18 110/87 (95) 98 07/12/20 08:00 15.0 100 07/12/20 07:44 100 Non-Rebreather 15.0 100 07/12/20 04:00 98.7 87 24 105/57 (73) 98 07/12/20 04:00 83 07/12/20 04:00 15.0 100 07/12/20 00:00 99.6 86 24 92/56 (68) 99 07/12/20 00:00 15.0 100 07/12/20 00:00 85 07/11/20 21:00 Non-Rebreather 15.0 07/11/20 20:00 94 Non-Rebreather 15.0 100 07/11/20 20:00 15.0 100 07/11/20 20:00 99.8 84 24 115/61 (79) 98 07/11/20 20:00 83 07/11/20 16:00 15.0 100 07/11/20 16:00 98.1 91 20 94/58 (70) 97 07/11/20 16:00 Non-Rebreather 15.0 07/11/20 15:50 90 Intake and Output 07/11/20 07/12/20 19:00 07:00 Intake Total 480 ml Output Total 300 ml Balance -300 ml 480 ml Tube Feeding 480 ml Output Urine Total 300 ml # Bowel Movements 1 Current Medications Medications (Trade) Dose Ordered Sig/Ankush Route PRN Reason Start Time Stop Time Status Last Admin Dose Admin Acetaminophen (Tylenol) 650 mg Q4H PRN ORAL Temp >100.5 07/03/20 20:30 08/02/20 20:29 07/10/20 23:53 Dextrose (Dextrose 50%) 50 ml Q30M PRN IV Hypoglycemia 07/03/20 22:45 10/01/20 22:44 Heparin Sodium (Porcine) (Heparin 5000 units/ml) 5,000 units EVERY 12 HOURS SUBQ 07/03/20 21:00 08/17/20 20:59 07/12/20 09:42 Insulin Aspart (NovoLOG) BEFORE MEALS AND HS SUBQ 07/04/20 06:30 10/02/20 06:29 07/11/20 20:59 Nitroglycerin (Ntg) 0.4 mg Q5M PRN SL Prn Chest Pain 07/03/20 20:30 08/02/20 20:29 Ondansetron HCl (Zofran) 4 mg Q6H PRN IVP Nausea & Vomiting 07/03/20 20:30 08/02/20 20:29 Piperacillin Sod/ Tazobactam Sod 3.375 gm/Sodium Chloride 110 ml @ 27.5 mls/hr EVERY 8 HOURS IVPB 07/10/20 14:00 07/15/20 13:59 07/12/20 05:30 Polyethylene Glycol (Miralax) 17 gm DAILYPRN PRN ORAL Constipation 07/03/20 20:30 08/02/20 20:29 Promethazine HCl/ Codeine (Phenergan with Codeine) 5 ml Q4H PRN ORAL For Cough 07/03/20 20:30 08/02/20 20:29 Tamsulosin HCl (Flomax) 0.4 mg BID ORAL 07/11/20 19:45 08/03/20 08:59 07/12/20 09:45 Vancomycin HCl 250 ml @ 166.667 mls/hr Q24H IVPB 07/13/20 06:00 07/18/20 05:59 Vancomycin HCl (Vanco pharmacy to dose) 1 ea DAILY PRN MISC Per rx protocol 07/03/20 20:30 08/02/20 20:29 Laboratory Tests 07/11/20 20:49: POC Whole Blood Glucose 152H 07/12/20 00:12: POC Whole Blood Glucose 126H 07/12/20 05:39: POC Whole Blood Glucose 133H 07/12/20 07:30: White Blood Count 14.5H, Red Blood Count 3.41L, Hemoglobin 10.4L, Hematocrit 32.2L, Mean Corpuscular Volume 95, Mean Corpuscular Hemoglobin 30.5, Mean Corpuscular Hemoglobin Concent 32.3, Red Cell Distribution Width 14.7, Platelet Count 224, Mean Platelet Volume 9.5, Neutrophils (%) (Auto) , Lymphocytes (%) (Auto) , Monocytes (%) (Auto) , Eosinophils (%) (Auto) , Basophils (%) (Auto) , Differential Total Cells Counted 100, Neutrophils % (Manual) 85H, Lymphocytes % (Manual) 14L, Monocytes % (Manual) 1, Eosinophils % (Manual) 0, Basophils % (Manual) 0, Band Neutrophils 0, Platelet Estimate Adequate, Platelet Morphology Normal, Polychromasia 1+, Anisocytosis 1+, Sodium Level 149H, Potassium Level 3.9, Chloride Level 111H, Carbon Dioxide Level 31, Anion Gap 7, Blood Urea Nitrogen 24H, Creatinine 1.3, Estimat Glomerular Filtration Rate 53.5, Glucose Level 179H, Uric Acid 4.8, Calcium Level 8.6, Phosphorus Level 3.2, Magnesium Level 2.5H, Total Bilirubin 0.5, Aspartate Amino Transf (AST/SGOT) 24, Alanine Aminotransferase (ALT/SGPT) 29, Alkaline Phosphatase 194H, C-Reactive Protein, Quantitative 24.2H, Pro-B-Type Natriuretic Peptide 355H, Total Protein 6.6, Albumin 1.4L, Globulin 5.2, Albumin/Globulin Ratio 0.3L, Random Vancomycin Level 11.9 Height (Feet): 5 Height (Inches): 4.00 Weight (Pounds): 130 General Appearance: mild distress EENT: other - On nonrebreather mask Cardiovascular: tachycardia Respiratory/Chest: decreased breath sounds Abdomen: distended Tino Connors MD Jul 12, 2020 12:45
--- NOTE | 2020-07-12 14:29 | Internal Med Progress Note ---
Subjective Date of Service: Jul 12, 2020 Physician Name YaneliDano Attending Physician Ahsan Hodges MD Current Medications Medications (Trade) Dose Ordered Sig/Ankush Route PRN Reason Start Time Stop Time Status Last Admin Dose Admin Acetaminophen (Tylenol) 650 mg Q4H PRN ORAL Temp >100.5 07/03/20 20:30 08/02/20 20:29 07/10/20 23:53 Dextrose (Dextrose 50%) 50 ml Q30M PRN IV Hypoglycemia 07/03/20 22:45 10/01/20 22:44 Heparin Sodium (Porcine) (Heparin 5000 units/ml) 5,000 units EVERY 12 HOURS SUBQ 07/03/20 21:00 08/17/20 20:59 07/12/20 09:42 Insulin Aspart (NovoLOG) BEFORE MEALS AND HS SUBQ 07/04/20 06:30 10/02/20 06:29 07/12/20 11:30 Nitroglycerin (Ntg) 0.4 mg Q5M PRN SL Prn Chest Pain 07/03/20 20:30 08/02/20 20:29 Ondansetron HCl (Zofran) 4 mg Q6H PRN IVP Nausea & Vomiting 07/03/20 20:30 08/02/20 20:29 Piperacillin Sod/ Tazobactam Sod 3.375 gm/Sodium Chloride 110 ml @ 27.5 mls/hr EVERY 8 HOURS IVPB 07/10/20 14:00 07/15/20 13:59 07/12/20 13:11 Polyethylene Glycol (Miralax) 17 gm DAILYPRN PRN ORAL Constipation 07/03/20 20:30 08/02/20 20:29 Promethazine HCl/ Codeine (Phenergan with Codeine) 5 ml Q4H PRN ORAL For Cough 07/03/20 20:30 08/02/20 20:29 Tamsulosin HCl (Flomax) 0.4 mg BID ORAL 07/11/20 19:45 08/03/20 08:59 07/12/20 09:45 Vancomycin HCl 250 ml @ 166.667 mls/hr Q24H IVPB 07/13/20 06:00 07/18/20 05:59 Vancomycin HCl (Vanco pharmacy to dose) 1 ea DAILY PRN MISC Per rx protocol 07/03/20 20:30 08/02/20 20:29 Allergies: Coded Allergies: No Known Allergies (Unverified , 04/30/12) ROS Limited/Unobtainable: Yes Subjective 79 YO M admitted with shortness of breath. Now pneumonia; previously COVID positive. Cover for Int med-Dr Hodges. On 100% non-rebreather mask Objective Last Vital Signs Date Time Temp Pulse Resp B/P (MAP) Pulse Ox O2 Delivery O2 Flow Rate FiO2 07/12/20 09:00 Non-Rebreather 15.0 07/12/20 08:00 91 07/12/20 08:00 97.9 18 110/87 (95) 98 07/12/20 08:00 100 Laboratory Tests Test 07/11/20 20:49 07/12/20 00:12 07/12/20 05:39 07/12/20 07:30 POC Whole Blood Glucose 152 MG/DL (74-106) H 126 MG/DL (74-106) H 133 MG/DL (74-106) H White Blood Count 14.5 K/UL (4.8-10.8) H Red Blood Count 3.41 M/UL (4.70-6.10) L Hemoglobin 10.4 G/DL (14.2-18.0) L Hematocrit 32.2 % (42.0-52.0) L Mean Corpuscular Volume 95 FL (80-99) Mean Corpuscular Hemoglobin 30.5 PG (27.0-31.0) Mean Corpuscular Hemoglobin Concent 32.3 G/DL (32.0-36.0) Red Cell Distribution Width 14.7 % (11.6-14.8) Platelet Count 224 K/UL (150-450) Mean Platelet Volume 9.5 FL (6.5-10.1) Neutrophils (%) (Auto) % (45.0-75.0) Lymphocytes (%) (Auto) % (20.0-45.0) Monocytes (%) (Auto) % (1.0-10.0) Eosinophils (%) (Auto) % (0.0-3.0) Basophils (%) (Auto) % (0.0-2.0) Differential Total Cells Counted 100 Neutrophils % (Manual) 85 % (45-75) H Lymphocytes % (Manual) 14 % (20-45) L Monocytes % (Manual) 1 % (1-10) Eosinophils % (Manual) 0 % (0-3) Basophils % (Manual) 0 % (0-2) Band Neutrophils 0 % (0-8) Platelet Estimate Adequate Platelet Morphology Normal Polychromasia 1+ Anisocytosis 1+ Sodium Level 149 MMOL/L (136-145) H Potassium Level 3.9 MMOL/L (3.5-5.1) Chloride Level 111 MMOL/L (98-107) H Carbon Dioxide Level 31 MMOL/L (21-32) Anion Gap 7 mmol/L (5-15) Blood Urea Nitrogen 24 mg/dL (7-18) H Creatinine 1.3 MG/DL (0.55-1.30) Estimat Glomerular Filtration Rate 53.5 mL/min (>60) Glucose Level 179 MG/DL (74-106) H Uric Acid 4.8 MG/DL (2.6-7.2) Calcium Level 8.6 MG/DL (8.5-10.1) Phosphorus Level 3.2 MG/DL (2.5-4.9) Magnesium Level 2.5 MG/DL (1.8-2.4) H Total Bilirubin 0.5 MG/DL (0.2-1.0) Aspartate Amino Transf (AST/SGOT) 24 U/L (15-37) Alanine Aminotransferase (ALT/SGPT) 29 U/L (12-78) Alkaline Phosphatase 194 U/L (46-116) H C-Reactive Protein, Quantitative 24.2 mg/dL (0.00-0.90) H Pro-B-Type Natriuretic Peptide 355 pg/mL (0-125) H Total Protein 6.6 G/DL (6.4-8.2) Albumin 1.4 G/DL (3.4-5.0) L Globulin 5.2 g/dL Albumin/Globulin Ratio 0.3 (1.0-2.7) L Random Vancomycin Level 11.9 ug/mL Test 07/12/20 13:26 POC Whole Blood Glucose 160 MG/DL (74-106) H Microbiology Date/Time Source Procedure Growth Status 07/10/20 22:00 Sputum Gram Stain - Final Resulted 07/10/20 22:00 Sputum Culture - Preliminary Staphylococcus Aureus Gram Negative Dionte Resulted Intake and Output 07/11/20 07/12/20 19:00 07:00 Intake Total 480 ml Output Total 300 ml Balance -300 ml 480 ml Tube Feeding 480 ml Output Urine Total 300 ml # Bowel Movements 1 Objective PHYSICAL EXAMINATION: GENERAL: The patient awake with deep stimuli, open his eyes, however, cannot follow commands. The patient is on a Ventimask at this time, chronically ill-appearing. HEAD AND NECK: Pupils are equal and reactive to light. Anicteric. NECK: Supple. No JVD. LUNGS: 100 % non-rebreather mask; Good air entry. No wheezing or rhonchi, however the patient has a coarse breath sounds. Decreased air in bases. HEART: S1, S2. Regular rhythm. Distant heart sounds. No murmur or gallop. ABDOMEN: Soft, nondistended, nontender. Positive bowel sounds. EXTREMITIES: No cyanosis, clubbing, or edema. NEUROLOGIC: Very limited secondary to the patient's status, cannot follow commands. Opens his eyes with deep stimuli and moving extremities spontaneously. Assessment/Plan Assessment/Plan ASSESSMENT: 1. Acute hypoxemic respiratory failure, most likely secondary to pneumonia and sepsis. 2. Sepsis secondary to urinary tract infection and pneumonia. 3. pneumonia=MRSA 4. Acute kidney injury on chronic renal insufficiency. 5. Dehydration. 6. History of chronic congestive heart failure. 7. Diabetes type 2. 8. Dyslipidemia. 9. Hypertension. 10. Alzheimer's disease. 11. COVID 19 previous positive PLAN: 1. Telemetry status 2. Dr. Carreno,=Pulmonary Critical Care 3. Dr. Cho = Inf Dis. 4. IV= D5W due to the hypernatremia and dehydration. 5. antibiotics = vancomycin and zosyn 6. Code status is full code. 7. DVT prophylaxis is heparin subcutaneous. Dano Groves MD Jul 12, 2020 14:29
[2020-07-12 16:00] VITALS: BP_SYST 103; BP_SYST 93; BP_DIAS 57; BP_DIAS 80
--- NOTE | 2020-07-12 18:15 | Cardiac Electrophysiology PN ---
Assessment/Plan Assessment/Plan 1. Accelerated junctional rhythm. Not bradycardic. Ruled out for [place] Echo showed ejection fraction of 55%. 2. Sepsis, on broad-spectrum IV antibiotic. 3. Respiratory failure, on antibiotic and NRBFM. 4. Dehydration. 5. Acute renal failure. 6. Electrolyte imbalance. 7. History of CHF, but echocardiogram showed normal left ventricular systolic function. 8. History of previous COVID infection in May 2020 and Active Covid now in isolation 9. Dementia. DW RN Subjective Subjective In SR in NAD in Covid isolation. Objective Last 24 Hour Vital Signs Date Time Temp Pulse Resp B/P (MAP) Pulse Ox O2 Delivery O2 Flow Rate FiO2 07/12/20 16:00 101.1 89 20 103/57 (72) 99 07/12/20 16:00 97.9 100 18 93/80 (84) 98 07/12/20 12:00 99 07/12/20 12:00 98.2 102 18 93/80 (84) 98 07/12/20 12:00 98.2 102 18 110/87 (95) 98 07/12/20 09:00 Non-Rebreather 15.0 07/12/20 08:00 91 07/12/20 08:00 97.9 100 18 110/87 (95) 98 07/12/20 08:00 15.0 100 07/12/20 07:44 100 Non-Rebreather 15.0 100 07/12/20 04:00 98.7 87 24 105/57 (73) 98 07/12/20 04:00 83 07/12/20 04:00 15.0 100 07/12/20 00:00 99.6 86 24 92/56 (68) 99 07/12/20 00:00 15.0 100 07/12/20 00:00 85 07/11/20 21:00 Non-Rebreather 15.0 07/11/20 20:00 94 Non-Rebreather 15.0 100 07/11/20 20:00 15.0 100 07/11/20 20:00 99.8 84 24 115/61 (79) 98 07/11/20 20:00 83 Intake and Output 07/11/20 07/12/20 19:00 07:00 Intake Total 480 ml Output Total 300 ml Balance -300 ml 480 ml Tube Feeding 480 ml Output Urine Total 300 ml # Bowel Movements 1 Laboratory Tests Test 07/11/20 20:49 07/12/20 00:12 07/12/20 05:39 07/12/20 07:30 POC Whole Blood Glucose 152 MG/DL (74-106) H 126 MG/DL (74-106) H 133 MG/DL (74-106) H White Blood Count 14.5 K/UL (4.8-10.8) H Red Blood Count 3.41 M/UL (4.70-6.10) L Hemoglobin 10.4 G/DL (14.2-18.0) L Hematocrit 32.2 % (42.0-52.0) L Mean Corpuscular Volume 95 FL (80-99) Mean Corpuscular Hemoglobin 30.5 PG (27.0-31.0) Mean Corpuscular Hemoglobin Concent 32.3 G/DL (32.0-36.0) Red Cell Distribution Width 14.7 % (11.6-14.8) Platelet Count 224 K/UL (150-450) Mean Platelet Volume 9.5 FL (6.5-10.1) Neutrophils (%) (Auto) % (45.0-75.0) Lymphocytes (%) (Auto) % (20.0-45.0) Monocytes (%) (Auto) % (1.0-10.0) Eosinophils (%) (Auto) % (0.0-3.0) Basophils (%) (Auto) % (0.0-2.0) Differential Total Cells Counted 100 Neutrophils % (Manual) 85 % (45-75) H Lymphocytes % (Manual) 14 % (20-45) L Monocytes % (Manual) 1 % (1-10) Eosinophils % (Manual) 0 % (0-3) Basophils % (Manual) 0 % (0-2) Band Neutrophils 0 % (0-8) Platelet Estimate Adequate Platelet Morphology Normal Polychromasia 1+ Anisocytosis 1+ Sodium Level 149 MMOL/L (136-145) H Potassium Level 3.9 MMOL/L (3.5-5.1) Chloride Level 111 MMOL/L (98-107) H Carbon Dioxide Level 31 MMOL/L (21-32) Anion Gap 7 mmol/L (5-15) Blood Urea Nitrogen 24 mg/dL (7-18) H Creatinine 1.3 MG/DL (0.55-1.30) Estimat Glomerular Filtration Rate 53.5 mL/min (>60) Glucose Level 179 MG/DL (74-106) H Uric Acid 4.8 MG/DL (2.6-7.2) Calcium Level 8.6 MG/DL (8.5-10.1) Phosphorus Level 3.2 MG/DL (2.5-4.9) Magnesium Level 2.5 MG/DL (1.8-2.4) H Total Bilirubin 0.5 MG/DL (0.2-1.0) Aspartate Amino Transf (AST/SGOT) 24 U/L (15-37) Alanine Aminotransferase (ALT/SGPT) 29 U/L (12-78) Alkaline Phosphatase 194 U/L (46-116) H C-Reactive Protein, Quantitative 24.2 mg/dL (0.00-0.90) H Pro-B-Type Natriuretic Peptide 355 pg/mL (0-125) H Total Protein 6.6 G/DL (6.4-8.2) Albumin 1.4 G/DL (3.4-5.0) L Globulin 5.2 g/dL Albumin/Globulin Ratio 0.3 (1.0-2.7) L Random Vancomycin Level 11.9 ug/mL Test 07/12/20 13:26 07/12/20 17:05 POC Whole Blood Glucose 160 MG/DL (74-106) H 145 MG/DL (74-106) H Microbiology Date/Time Source Procedure Growth Status 07/10/20 22:00 Sputum Gram Stain - Final Resulted 07/10/20 22:00 Sputum Culture - Preliminary Staphylococcus Aureus Gram Negative Dionte Resulted Objective HEAD AND NECK: No JVD. NRB FM LUNGS: Coarse rhonchi. CARDIOVASCULAR: Irregular S1 and S2 with no gallop. ABDOMEN: Soft. EXTREMITIES: No pitting edema. Klever Matt MD Jul 12, 2020 18:15
--- NOTE | 2020-07-12 19:36 | NUR ---
NURSE NOTES: Report received from FLORES Alexander. Patient is asleep, alert and oriented x 0. environmental monitoring specialist is in place, shows sinus rhythm. On oxygen via non-rebreather mask @ 15 Lpm. With NGT, on Glucerna 1.2 @ 60cc/hour. With Wiley catheter, drained via gravity. With bilateral soft wrist restraints on, and renewed this morning 07/12/20 @ 1029H. On fall and aspiration precaution, bed alarm is on. Safety measures are in place, bed in lowest and locked position, side rails up x 2, will continue plan of care.
--- NOTE | 2020-07-12 19:49 | NUR ---
NURSE HAND-OFF REPORT: Important Events on Shift:Must suction pt at leat q 2hrs. pt is very congested, pt gets tachy when suctioning is needed. monitor temp earlier he had tem 101.1 tylenol was given and cooling measures were applied Pt was suctioned by RT at least 5 times and by nurse at least every 2 hr. during morning shift. Patient Status: full Diet: Gtube Pending Orders: Pending Results/Labs: Pending MD notification: Latest Vital Signs: Temperature 99.3 , Pulse 88 , B/P 93 /80 , Respiratory Rate 18 , O2 SAT 98 , Non-Rebreather, O2 Flow Rate 15.0 . Vital Sign Comment: EKG Rhythm: Sinus Rhythm Rhythm change?: N MD Notified?: Y -Left Message for Dr. Hodges, No cardio on the case. MD Response: Latest Gonzalez Fall Score: 50 Fall Risk: High Risk Safety Measures: Call light Within Reach, Bed Alarm Zone 1, Side Rails Side Rails x3, Bed position Low and Locked. Fall Precautions: y Yellow Socks y Yellow Gown y Door Sign Patient Fall Education Report given to Kristina/ Rn.
[2020-07-12 20:00] VITALS: BP 91/56
[2020-07-13] VITALS: BP 110/56
[2020-07-13 04:00] VITALS: BP 112/62
[2020-07-13] MEDS: Piperacillin/Tazobactam 3.375 GM in NS 110 ML IVPB SCH ×2 (05:53→13:20)
[2020-07-13] MEDS: Vancomycin 1.25gm/250ml Premix IVPB SCH (05:53)
[2020-07-13] MEDS: NovoLOG Insulin Flexpen SUBQ SCH ×4 (06:00→23:18)
--- NOTE | 2020-07-13 07:23 | NUR ---
NURSE HAND-OFF REPORT: Important Events on Shift: Patient has been resting well comfortably, no desaturation nor fever noted during my shift. Still with copious secretions and needs to be suctioned as often. Patient Status: Patient is asleep, open his eyes with deep stimuli, non-verbal. Plan of care endorsed. RN made aware that the blood test for this morning is not done yet, and Trisha from Laboratory was aware. Diet: Glucerna 1.2 @ 60 cc/hour. Pending Orders: C-reactive, CBC, CMP, Mg, Phos, Sed. Rate Pending Results/Labs: none Pending MD notification:none Latest Vital Signs: Temperature 99.6 , Pulse 79 , B/P 112 /62 , Respiratory Rate 26 , O2 SAT 100 , Non-Rebreather, O2 Flow Rate 15.0 . Vital Sign Comment: Stable EKG Rhythm: Sinus Rhythm Rhythm change?: N MD Notified?: Y -Left Message for Dr. Hodges, No cardio on the case. MD Response: Latest Gonzalez Fall Score: 70 Fall Risk: High Risk Safety Measures: Call light Within Reach, Bed Alarm Zone 1, Side Rails Side Rails x3, Bed position Low and Locked. Fall Precautions: Yellow Socks Yellow Gown Door Sign Patient Fall Education Report given to FLORES Alexander.
--- NOTE | 2020-07-13 07:38 | NUR ---
NURSE NOTES: pt. AOx1 non verbal. Pt on director of cardiac rehabilitation no signs of cardiac distress. Bed in lowest position and locked call light within reach. pt on [place] tube safely taped to skin. continue non debreather, RT was called in for suctioning pt is very congested. Wiley cath in place and draining. Will continue to monitor pt.
[2020-07-13 08:00] VITALS: BP 97/78
[2020-07-13] MEDS: Tamsulosin 0.4mg cap ORAL SCH ×2 (08:58→18:16)
[2020-07-13] MEDS: Heparin 5000 units/ml inj SUBQ SCH ×2 (09:02→20:42)
[2020-07-13 09:10] LABS: HEMATOCRIT 32.7 % (42.0-52.0); HEMOGLOBIN 10.3 G/DL (14.2-18.0); MEAN CORPUSCULAR VOLUME 95 FL (80-99); PLATELET COUNT 248 K/UL (150-450); RED BLOOD COUNT 3.46 M/UL (4.70-6.10); RED CELL DISTRIBUTION WIDTH 15.3 % (11.6-14.8); WHITE BLOOD COUNT 18.5 K/UL (4.8-10.8)
[2020-07-13 09:40] LABS: ALBUMIN 1.4 G/DL (3.4-5.0); ALBUMIN/GLOBULIN RATIO 0.2 (1.0-2.7); BILIRUBIN,TOTAL 0.5 MG/DL (0.2-1.0); CREATININE 1.3 MG/DL (0.55-1.30); PHOSPHORUS 4.4 MG/DL (2.5-4.9); POTASSIUM 4.3 MMOL/L (3.5-5.1)
--- NOTE | 2020-07-13 11:27 | NUR ---
NURSE NOTES: reported latest labs to doc. Carreno. ok to add Ezran to di Addendum: 07/13/20 at 1129 by Catherine Fam RN NURSE NOTES: reported latest labs to doc. Carreno, he will put new orders. ok to add Alex to diet bid.
--- NOTE | 2020-07-13 11:33 | Pulmonology Progress Note ---
Subjective ROS Limited/Unobtainable: Yes Interval Events: unchagned Allergies: Coded Allergies: No Known Allergies (Unverified , 04/30/12) Objective Last 24 Hour Vital Signs Date Time Temp Pulse Resp B/P (MAP) Pulse Ox O2 Delivery O2 Flow Rate FiO2 07/13/20 09:00 Non-Rebreather 15.0 07/13/20 08:00 97.7 92 22 97/78 (84) 98 07/13/20 07:45 15.0 100 07/13/20 04:00 82 07/13/20 04:00 15.0 100 07/13/20 04:00 99.6 79 26 112/62 (79) 100 07/13/20 00:00 99.4 79 28 110/56 (74) 100 07/13/20 00:00 95 07/12/20 21:00 Non-Rebreather 15.0 07/12/20 20:31 99 Non-Rebreather 15.0 100 07/12/20 20:00 100.1 76 28 91/56 (68) 99 07/12/20 20:00 15.0 100 07/12/20 20:00 86 07/12/20 17:25 99.3 07/12/20 16:00 101.1 89 20 103/57 (72) 99 07/12/20 16:00 97.9 100 18 93/80 (84) 98 07/12/20 16:00 15.0 100 07/12/20 16:00 88 07/12/20 12:00 99 07/12/20 12:00 98.2 102 18 93/80 (84) 98 07/12/20 12:00 15.0 100 07/12/20 12:00 98.2 102 18 110/87 (95) 98 Intake and Output 07/12/20 07/13/20 19:00 07:00 Intake Total 120 ml 810 ml Output Total 850 ml Balance 120 ml -40 ml Free Water 150 ml Tube Feeding 120 ml 660 ml Output Urine Total 850 ml # Bowel Movements 1 General Appearance: WD/WN, no acute distress HEENT: normocephalic, atraumatic Respiratory: chest wall non-tender, respiratory distress, rhonchi - left, rhonchi - right Cardiovascular: normal rate Abdomen: normal bowel sounds, no organomegaly Genitourinary: normal external genitalia Skin: no rash Microbiology Date/Time Source Procedure Growth Status 07/10/20 22:00 Sputum Gram Stain - Final Resulted 07/10/20 22:00 Sputum Culture - Preliminary Staphylococcus Aureus - Mrsa Escherichia Coli Resulted Laboratory Tests 07/12/20 13:26: POC Whole Blood Glucose 160H 07/12/20 17:05: POC Whole Blood Glucose 145H 07/12/20 20:45: POC Whole Blood Glucose 156H 07/13/20 05:54: POC Whole Blood Glucose [Pending] 07/13/20 08:10: White Blood Count 18.5H, Red Blood Count 3.46L, Hemoglobin 10.3L, Hematocrit 32.7L, Mean Corpuscular Volume 95, Mean Corpuscular Hemoglobin 29.9, Mean Corpuscular Hemoglobin Concent 31.6L, Red Cell Distribution Width 15.3H, Platelet Count 248, Mean Platelet Volume 9.8, Neutrophils (%) (Auto) , Lymphocytes (%) (Auto) , Monocytes (%) (Auto) , Eosinophils (%) (Auto) , Basophils (%) (Auto) , Differential Total Cells Counted 100, Neutrophils % (Manual) 82H, Lymphocytes % (Manual) 15L, Monocytes % (Manual) 3, Eosinophils % (Manual) 0, Basophils % (Manual) 0, Band Neutrophils 0, Platelet Estimate Adequate, Platelet Morphology Normal, Hypochromasia 1+, Anisocytosis 1+, Erythrocyte Sedimentation Rate 115H, Sodium Level 151H, Potassium Level 4.3, Chloride Level 112H, Carbon Dioxide Level 30, Anion Gap 9, Blood Urea Nitrogen 24H, Creatinine 1.3, Estimat Glomerular Filtration Rate 53.5, Glucose Level 160H , Calcium Level 9.0, Phosphorus Level 4.4, Magnesium Level 2.6H, Total Bilirubin 0.5, Aspartate Amino Transf (AST/SGOT) 40H, Alanine Aminotransferase (ALT/SGPT) 34, Alkaline Phosphatase 283H, C-Reactive Protein, Quantitative 20.8H, Total Protein 7.2, Albumin 1.4L, Globulin 5.8, Albumin/Globulin Ratio 0.2L Current Medications Medications (Trade) Dose Ordered Sig/Ankush Route PRN Reason Start Time Stop Time Status Last Admin Dose Admin Acetaminophen (Tylenol) 650 mg Q4H PRN ORAL Temp >100.5 07/03/20 20:30 08/02/20 20:29 11/1/20 16:55 Dextrose 1,000 ml @ 100 mls/hr Q10H ONCE IV 07/13/20 11:30 07/13/20 21:29 Dextrose (Dextrose 50%) 50 ml Q30M PRN IV Hypoglycemia 07/03/20 22:45 10/01/20 22:44 Heparin Sodium (Porcine) (Heparin 5000 units/ml) 5,000 units EVERY 12 HOURS SUBQ 07/03/20 21:00 08/17/20 20:59 07/13/20 09:02 Insulin Aspart (NovoLOG) EVERY 6 HOURS SUBQ 07/13/20 06:00 10/02/20 06:29 Nitroglycerin (Ntg) 0.4 mg Q5M PRN SL Prn Chest Pain 07/03/20 20:30 08/02/20 20:29 Ondansetron HCl (Zofran) 4 mg Q6H PRN IVP Nausea & Vomiting 07/03/20 20:30 08/02/20 20:29 Piperacillin Sod/ Tazobactam Sod 3.375 gm/Sodium Chloride 110 ml @ 27.5 mls/hr EVERY 8 HOURS IVPB 07/10/20 14:00 07/15/20 13:59 07/13/20 05:53 Polyethylene Glycol (Miralax) 17 gm DAILYPRN PRN ORAL Constipation 07/03/20 20:30 08/02/20 20:29 Promethazine HCl/ Codeine (Phenergan with Codeine) 5 ml Q4H PRN ORAL For Cough 07/03/20 20:30 08/02/20 20:29 Tamsulosin HCl (Flomax) 0.4 mg BID ORAL 07/11/20 19:45 08/03/20 08:59 07/13/20 08:58 Vancomycin HCl 250 ml @ 166.667 mls/hr Q24H IVPB 07/13/20 06:00 07/18/20 05:59 07/13/20 05:53 Vancomycin HCl (Vanco pharmacy to dose) 1 ea DAILY PRN MISC Per rx protocol 07/03/20 20:30 08/02/20 20:29 Assessment/Plan Problems: (1) 2019 novel coronavirus disease (COVID-19) (2) Severe sepsis (3) Acute encephalopathy (4) HTN (hypertension) (5) Aphasia (6) Alzheimer's dementia (7) History of CVA (cerebrovascular accident) (8) BPH (benign prostatic hyperplasia) Assessment/Plan wbc rising, pt is febrile repeat cxr in am CRP rising titrate fio2 to sat of 92% frequent suctioning continue abx check electrolytes tolerating feeding aspiration precaution dvt prophylaxis. Kya Carreno MD Jul 13, 2020 11:33
[2020-07-13 12:00] VITALS: BP 124/69
--- NOTE | 2020-07-13 12:37 | NUR ---
RD ASSESSMENT & RECOMMENDATIONS SEE CARE ACTIVITY FOR COMPLETE ASSESSMENT DAILY ESTIMATED NEEDS: Needs based on DM, wound, pulmonary, cardiac 59.5kg 25-35 kcals/kg 0561-4161 total kcals 1.25-1.5 g protein/kg 74-89 g total protein 25-30 mL/kg 7043-9997 total fluid mLs NUTRITION DIAGNOSIS: * Swallowing difficulty R/T dysphagia as evidenced by [employer] eval, recs for NGT feeds. * Increased kcal and pro needs r/t wound healing as evidenced by sacral pressure injury stage 2. CURRENT TF:Glucerna 1.2 @ 60ml/hr x24 hrs ENTERAL NUTRITION RECOMMENDATIONS: Glucerna 1.2 @ 60ml/hr x24 hrs to provide 1440ml, 1728 kcal, 86g pro, 1159ml free H2O - Maintain current TF - Flush per MD/ HOB over 30 degrees. ADDITIONAL RECOMMENDATIONS: * Calibrated bedscale wt for accurate CBW * TF recs as above if part of POC * Replete lytes as needed * Wound care: add Sushil BID via PEG add Vit C 250mg QD . .
--- NOTE | 2020-07-13 13:06 | Nephrology Progress Note ---
Assessment/Plan Problem List: (1) Dehydration (2) MELANIE (acute kidney injury) (3) Renal failure (ARF), acute on chronic (4) Hypoxia (5) Acute encephalopathy (6) Electrolyte imbalance Assessment 79-year-old male is admitted with acute hypoxic respiratory failure most likely secondary to pneumonia and sepsis, UTI. Acute on chronic renal failure Dehydration Electrolyte imbalances, hypernatremia Hypoalbuminemia Diabetes type 2 History of congestive heart failure Hypertension Hyperlipemia Alzheimer's Previous COVID-19 infection in May 2020 Plan July 13: Remains on nonrebreather mask. Inflammatory markers remain elevated. Renal parameters somewhat stable. Continue per pulmonary and ID. Remains full code. July 12: Patient on nonrebreather mask. Labs noted. Serum creatinine down to 1.3. Continue per consultants. July 11: Patient on nonrebreather mask. Transfer to telemetry when seen this morning. Labs noted. Continue per consultants. Serum creatinine erin to 1.7. Continue to monitor renal parameters. Continue to monitor vancomycin level July 10: Patient is not doing well clinically. Mild respiratory distress. ABG noted. Somewhat hypoxic. CBC and chemistry panel ordered. Discussed with FLORES Cho. Will defer to pulmonary management to specialist. Continue per ID. Renal parameters remained stable as of July 09. July 09: Labs reviewed. Renal parameters stable. Continue per consultants. July 08: Labs reviewed. Potassium via NG tube ordered. IV fluids stopped. Continue per consultants. July 07: Labs reviewed. Low potassium and low phosphorus replaced. Continue per consultants. Remains stable from renal standpoint of view. July 06: Patient remains n.p.o. IV fluid down to 50 cc an hour. Potassium supplement intravenously ordered. Continue per consultants. Previously: Patient is n.p.o., will continue on IV fluid of D5W 75 cc an hour We will monitor electrolytes and renal parameters Avoid nephrotoxic's Start p.o. when he clears by speech therapist, meanwhile aspiration precautions Keep the blood pressure and blood sugar in check Per orders Subjective ROS Limited/Unobtainable: Yes Objective Objective Last 24 Hour Vital Signs Date Time Temp Pulse Resp B/P (MAP) Pulse Ox O2 Delivery O2 Flow Rate FiO2 07/13/20 09:00 Non-Rebreather 15.0 07/13/20 08:00 97.7 92 22 97/78 (84) 98 07/13/20 07:45 15.0 100 07/13/20 04:00 82 07/13/20 04:00 15.0 100 07/13/20 04:00 99.6 79 26 112/62 (79) 100 07/13/20 00:00 99.4 79 28 110/56 (74) 100 07/13/20 00:00 95 07/12/20 21:00 Non-Rebreather 15.0 07/12/20 20:31 99 Non-Rebreather 15.0 100 07/12/20 20:00 100.1 76 28 91/56 (68) 99 07/12/20 20:00 15.0 100 07/12/20 20:00 86 07/12/20 17:25 99.3 07/12/20 16:00 101.1 89 20 103/57 (72) 99 07/12/20 16:00 97.9 100 18 93/80 (84) 98 07/12/20 16:00 15.0 100 07/12/20 16:00 88 Intake and Output 07/12/20 07/13/20 19:00 07:00 Intake Total 120 ml 810 ml Output Total 850 ml Balance 120 ml -40 ml Free Water 150 ml Tube Feeding 120 ml 660 ml Output Urine Total 850 ml # Bowel Movements 1 Current Medications Medications (Trade) Dose Ordered Sig/Ankush Route PRN Reason Start Time Stop Time Status Last Admin Dose Admin Acetaminophen (Tylenol) 650 mg Q4H PRN ORAL Temp >100.5 07/03/20 20:30 08/02/20 20:29 07/12/20 16:55 Dextrose 1,000 ml @ 100 mls/hr Q10H ONCE IV 07/13/20 11:30 07/13/20 21:29 Dextrose (Dextrose 50%) 50 ml Q30M PRN IV Hypoglycemia 07/03/20 22:45 10/01/20 22:44 Heparin Sodium (Porcine) (Heparin 5000 units/ml) 5,000 units EVERY 12 HOURS SUBQ 07/03/20 21:00 08/17/20 20:59 07/13/20 09:02 Insulin Aspart (NovoLOG) EVERY 6 HOURS SUBQ 07/13/20 06:00 10/02/20 06:29 Nitroglycerin (Ntg) 0.4 mg Q5M PRN SL Prn Chest Pain 07/03/20 20:30 08/02/20 20:29 Ondansetron HCl (Zofran) 4 mg Q6H PRN IVP Nausea & Vomiting 07/03/20 20:30 08/02/20 20:29 Piperacillin Sod/ Tazobactam Sod 3.375 gm/Sodium Chloride 110 ml @ 27.5 mls/hr EVERY 8 HOURS IVPB 07/10/20 14:00 07/15/20 13:59 07/13/20 05:53 Polyethylene Glycol (Miralax) 17 gm DAILYPRN PRN ORAL Constipation 07/03/20 20:30 08/02/20 20:29 Promethazine HCl/ Codeine (Phenergan with Codeine) 5 ml Q4H PRN ORAL For Cough 07/03/20 20:30 08/02/20 20:29 Tamsulosin HCl (Flomax) 0.4 mg BID ORAL 07/11/20 19:45 08/03/20 08:59 07/13/20 08:58 Vancomycin HCl 250 ml @ 166.667 mls/hr Q24H IVPB 07/13/20 06:00 07/18/20 05:59 07/13/20 05:53 Vancomycin HCl (Vanco pharmacy to dose) 1 ea DAILY PRN MISC Per rx protocol 07/03/20 20:30 08/02/20 20:29 Laboratory Tests 07/12/20 13:26: POC Whole Blood Glucose 160H 07/12/20 17:05: POC Whole Blood Glucose 145H 07/12/20 20:45: POC Whole Blood Glucose 156H 07/13/20 05:54: POC Whole Blood Glucose [Pending] 07/13/20 08:10: White Blood Count 18.5H, Red Blood Count 3.46L, Hemoglobin 10.3L, Hematocrit 32.7L, Mean Corpuscular Volume 95, Mean Corpuscular Hemoglobin 29.9, Mean Corpuscular Hemoglobin Concent 31.6L, Red Cell Distribution Width 15.3H, Platelet Count 248, Mean Platelet Volume 9.8, Neutrophils (%) (Auto) , Lymphocytes (%) (Auto) , Monocytes (%) (Auto) , Eosinophils (%) (Auto) , Basophils (%) (Auto) , Differential Total Cells Counted 100, Neutrophils % (Manual) 82H, Lymphocytes % (Manual) 15L, Monocytes % (Manual) 3, Eosinophils % (Manual) 0, Basophils % (Manual) 0, Band Neutrophils 0, Platelet Estimate Adequate, Platelet Morphology Normal, Hypochromasia 1+, Anisocytosis 1+, Erythrocyte Sedimentation Rate 115H, Sodium Level 151H, Potassium Level 4.3, Chloride Level 112H, Carbon Dioxide Level 30, Anion Gap 9, Blood Urea Nitrogen 24H, Creatinine 1.3, Estimat Glomerular Filtration Rate 53.5, Glucose Level 160H , Calcium Level 9.0, Phosphorus Level 4.4, Magnesium Level 2.6H, Total Bilirubin 0.5, Aspartate Amino Transf (AST/SGOT) 40H, Alanine Aminotransferase (ALT/SGPT) 34, Alkaline Phosphatase 283H, C-Reactive Protein, Quantitative 20.8H, Total Protein 7.2, Albumin 1.4L, Globulin 5.8, Albumin/Globulin Ratio 0.2L Height (Feet): 5 Height (Inches): 4.00 Weight (Pounds): 130 General Appearance: mild distress EENT: other - On nonrebreather mask Cardiovascular: tachycardia Respiratory/Chest: decreased breath sounds Abdomen: distended Tino Connors MD Jul 13, 2020 13:05
--- NOTE | 2020-07-13 13:38 | Cardiac Electrophysiology PN ---
Assessment/Plan Assessment/Plan 1. Accelerated junctional rhythm. Not bradycardic. Ruled out for LA Echo showed ejection fraction of 55%. 2. Sepsis, on broad-spectrum IV antibiotic. 3. Respiratory failure, on antibiotic and FM 4. Dehydration. 5. Acute renal failure. 6. Electrolyte imbalance. 7. History of CHF, but echocardiogram showed normal left ventricular systolic function. 8. History of previous COVID infection in May 2020 and Active Covid now in isolation 9. Dementia. DW RN Subjective Subjective In SR in NAD in Covid isolation.No events Objective Last 24 Hour Vital Signs Date Time Temp Pulse Resp B/P (MAP) Pulse Ox O2 Delivery O2 Flow Rate FiO2 07/13/20 09:00 Non-Rebreather 15.0 07/13/20 08:00 97.7 92 22 97/78 (84) 98 07/13/20 07:45 15.0 100 07/13/20 04:00 82 07/13/20 04:00 15.0 100 07/13/20 04:00 99.6 79 26 112/62 (79) 100 07/13/20 00:00 99.4 79 28 110/56 (74) 100 07/13/20 00:00 95 07/12/20 21:00 Non-Rebreather 15.0 07/12/20 20:31 99 Non-Rebreather 15.0 100 07/12/20 20:00 100.1 76 28 91/56 (68) 99 07/12/20 20:00 15.0 100 07/12/20 20:00 86 07/12/20 17:25 99.3 07/12/20 16:00 101.1 89 20 103/57 (72) 99 07/12/20 16:00 97.9 100 18 93/80 (84) 98 07/12/20 16:00 15.0 100 07/12/20 16:00 88 Intake and Output 07/12/20 07/13/20 19:00 07:00 Intake Total 120 ml 810 ml Output Total 850 ml Balance 120 ml -40 ml Free Water 150 ml Tube Feeding 120 ml 660 ml Output Urine Total 850 ml # Bowel Movements 1 Laboratory Tests Test 07/12/20 17:05 07/12/20 20:45 07/13/20 05:54 07/13/20 08:10 POC Whole Blood Glucose 145 MG/DL (74-106) H 156 MG/DL (74-106) H Pending White Blood Count 18.5 K/UL (4.8-10.8) H Red Blood Count 3.46 M/UL (4.70-6.10) L Hemoglobin 10.3 G/DL (14.2-18.0) L Hematocrit 32.7 % (42.0-52.0) L Mean Corpuscular Volume 95 FL (80-99) Mean Corpuscular Hemoglobin 29.9 PG (27.0-31.0) Mean Corpuscular Hemoglobin Concent 31.6 G/DL (32.0-36.0) L Red Cell Distribution Width 15.3 % (11.6-14.8) H Platelet Count 248 K/UL (150-450) Mean Platelet Volume 9.8 FL (6.5-10.1) Neutrophils (%) (Auto) % (45.0-75.0) Lymphocytes (%) (Auto) % (20.0-45.0) Monocytes (%) (Auto) % (1.0-10.0) Eosinophils (%) (Auto) % (0.0-3.0) Basophils (%) (Auto) % (0.0-2.0) Differential Total Cells Counted 100 Neutrophils % (Manual) 82 % (45-75) H Lymphocytes % (Manual) 15 % (20-45) L Monocytes % (Manual) 3 % (1-10) Eosinophils % (Manual) 0 % (0-3) Basophils % (Manual) 0 % (0-2) Band Neutrophils 0 % (0-8) Platelet Estimate Adequate Platelet Morphology Normal Hypochromasia 1+ Anisocytosis 1+ Erythrocyte Sedimentation Rate 115 MM/HR (0-20) H Sodium Level 151 MMOL/L (136-145) H Potassium Level 4.3 MMOL/L (3.5-5.1) Chloride Level 112 MMOL/L (98-107) H Carbon Dioxide Level 30 MMOL/L (21-32) Anion Gap 9 mmol/L (5-15) Blood Urea Nitrogen 24 mg/dL (7-18) H Creatinine 1.3 MG/DL (0.55-1.30) Estimat Glomerular Filtration Rate 53.5 mL/min (>60) Glucose Level 160 MG/DL (74-106) H Calcium Level 9.0 MG/DL (8.5-10.1) Phosphorus Level 4.4 MG/DL (2.5-4.9) Magnesium Level 2.6 MG/DL (1.8-2.4) H Total Bilirubin 0.5 MG/DL (0.2-1.0) Aspartate Amino Transf (AST/SGOT) 40 U/L (15-37) H Alanine Aminotransferase (ALT/SGPT) 34 U/L (12-78) Alkaline Phosphatase 283 U/L (46-116) H C-Reactive Protein, Quantitative 20.8 mg/dL (0.00-0.90) H Total Protein 7.2 G/DL (6.4-8.2) Albumin 1.4 G/DL (3.4-5.0) L Globulin 5.8 g/dL Albumin/Globulin Ratio 0.2 (1.0-2.7) L Test 07/13/20 13:33 POC Whole Blood Glucose 149 MG/DL (74-106) H Microbiology Date/Time Source Procedure Growth Status 07/10/20 22:00 Sputum Gram Stain - Final Resulted 07/10/20 22:00 Sputum Culture - Preliminary Staphylococcus Aureus - Mrsa Escherichia Coli Resulted Objective HEAD AND NECK: No JVD. NRB FM LUNGS: Coarse rhonchi. CARDIOVASCULAR: Irregular S1 and S2 with no gallop. ABDOMEN: Soft. EXTREMITIES: No pitting edema. Klever Matt MD Jul 13, 2020 13:38
--- NOTE | 2020-07-13 14:46 | Infectious Diseases Prog Note ---
Assessment/Plan 79yo M with: Fever,r ecurrent Leukocytosis ;recurrent ; increase Acute hypoxic resp failure, on NRB mask> 4l NC; back on NRB, desaturation 07/09 Pneumonia- >HAP hx of COVID19 PNA 05/20/2007/10 Sp cx MRSA (Vancomycin APOLONIA 1), ESBL E.coli 07/03 BCx NTD UA 15-20 WBC, UCx Neg 07/03 COVID rapid neg; 07/06 rapid COVID PCR + (from prior infection)- not new infection Flu A/B neg CXR: L pna Resp cx MRSA Denis on CKD, improving SNF resident ([facility]) Non-verbal VRE and MRSA colonized Plan: Cont vanco #11/14 for MRSA PNA Switch Zosyn #4 to Meropenem for ESBL PNA -07/06 SP Cefepime #4 -07/04 SP Flagyl # Monitor CBC/CMP Monitor resp status Monitor temp curve and hemodynamics off COVID isolation- positive covid test represents residual virus from infection on 05/2020 bcx x2, ua. w. reflex D/w RN Thank you for this consult. [facility] will continue to follow. Subjective Allergies: Coded Allergies: No Known Allergies (Unverified , 04/30/12) Tm 101.1 on NRB wbc increased Objective Last 24 Hour Vital Signs Date Time Temp Pulse Resp B/P (MAP) Pulse Ox O2 Delivery O2 Flow Rate FiO2 07/13/20 09:00 Non-Rebreather 15.0 07/13/20 08:00 97.7 92 22 97/78 (84) 98 07/13/20 07:45 15.0 100 07/13/20 04:00 82 07/13/20 04:00 15.0 100 07/13/20 04:00 99.6 79 26 112/62 (79) 100 07/13/20 00:00 99.4 79 28 110/56 (74) 100 07/13/20 00:00 95 07/12/20 21:00 Non-Rebreather 15.0 07/12/20 20:31 99 Non-Rebreather 15.0 100 07/12/20 20:00 100.1 76 28 91/56 (68) 99 07/12/20 20:00 15.0 100 07/12/20 20:00 86 07/12/20 17:25 99.3 11/1/20 16:00 101.1 89 20 103/57 (72) 99 07/12/20 16:00 97.9 100 18 93/80 (84) 98 07/12/20 16:00 15.0 100 07/12/20 16:00 88 Height (Feet): 5 Height (Inches): 4.00 Weight (Pounds): 130 Gen: NAD CV: RRR Pulm: Rhonchi anteriorly, lots of oral secretions Abd: Soft, NTND Ext: No c/c/e Neuro: Awake Microbiology Date/Time Source Procedure Growth Status 07/10/20 22:00 Sputum Gram Stain - Final Resulted 07/10/20 22:00 Sputum Culture - Preliminary Staphylococcus Aureus - Mrsa Escherichia Coli Resulted Laboratory Tests Test 07/12/20 17:05 07/12/20 20:45 07/13/20 05:54 07/13/20 08:10 POC Whole Blood Glucose 145 MG/DL (74-106) H 156 MG/DL (74-106) H Pending White Blood Count 18.5 K/UL (4.8-10.8) H Red Blood Count 3.46 M/UL (4.70-6.10) L Hemoglobin 10.3 G/DL (14.2-18.0) L Hematocrit 32.7 % (42.0-52.0) L Mean Corpuscular Volume 95 FL (80-99) Mean Corpuscular Hemoglobin 29.9 PG (27.0-31.0) Mean Corpuscular Hemoglobin Concent 31.6 G/DL (32.0-36.0) L Red Cell Distribution Width 15.3 % (11.6-14.8) H Platelet Count 248 K/UL (150-450) Mean Platelet Volume 9.8 FL (6.5-10.1) Neutrophils (%) (Auto) % (45.0-75.0) Lymphocytes (%) (Auto) % (20.0-45.0) Monocytes (%) (Auto) % (1.0-10.0) Eosinophils (%) (Auto) % (0.0-3.0) Basophils (%) (Auto) % (0.0-2.0) Differential Total Cells Counted 100 Neutrophils % (Manual) 82 % (45-75) H Lymphocytes % (Manual) 15 % (20-45) L Monocytes % (Manual) 3 % (1-10) Eosinophils % (Manual) 0 % (0-3) Basophils % (Manual) 0 % (0-2) Band Neutrophils 0 % (0-8) Platelet Estimate Adequate Platelet Morphology Normal Hypochromasia 1+ Anisocytosis 1+ Erythrocyte Sedimentation Rate 115 MM/HR (0-20) H Sodium Level 151 MMOL/L (136-145) H Potassium Level 4.3 MMOL/L (3.5-5.1) Chloride Level 112 MMOL/L (98-107) H Carbon Dioxide Level 30 MMOL/L (21-32) Anion Gap 9 mmol/L (5-15) Blood Urea Nitrogen 24 mg/dL (7-18) H Creatinine 1.3 MG/DL (0.55-1.30) Estimat Glomerular Filtration Rate 53.5 mL/min (>60) Glucose Level 160 MG/DL (74-106) H Calcium Level 9.0 MG/DL (8.5-10.1) Phosphorus Level 4.4 MG/DL (2.5-4.9) Magnesium Level 2.6 MG/DL (1.8-2.4) H Total Bilirubin 0.5 MG/DL (0.2-1.0) Aspartate Amino Transf (AST/SGOT) 40 U/L (15-37) H Alanine Aminotransferase (ALT/SGPT) 34 U/L (12-78) Alkaline Phosphatase 283 U/L (46-116) H C-Reactive Protein, Quantitative 20.8 mg/dL (0.00-0.90) H Total Protein 7.2 G/DL (6.4-8.2) Albumin 1.4 G/DL (3.4-5.0) L Globulin 5.8 g/dL Albumin/Globulin Ratio 0.2 (1.0-2.7) L Test 07/13/20 13:33 POC Whole Blood Glucose 149 MG/DL (74-106) H Current Medications Medications (Trade) Dose Ordered Sig/Ankush Route PRN Reason Start Time Stop Time Status Last Admin Dose Admin Acetaminophen (Tylenol) 650 mg Q4H PRN ORAL Temp >100.5 07/03/20 20:30 08/02/20 20:29 07/12/20 16:55 Dextrose 1,000 ml @ 100 mls/hr Q10H ONCE IV 07/13/20 11:30 07/13/20 21:29 07/13/20 11:30 Dextrose (Dextrose 50%) 50 ml Q30M PRN IV Hypoglycemia 07/03/20 22:45 10/01/20 22:44 Heparin Sodium (Porcine) (Heparin 5000 units/ml) 5,000 units EVERY 12 HOURS SUBQ 07/03/20 21:00 08/17/20 20:59 07/13/20 09:02 Insulin Aspart (NovoLOG) EVERY 6 HOURS SUBQ 07/13/20 06:00 10/02/20 06:29 07/13/20 13:52 Nitroglycerin (Ntg) 0.4 mg Q5M PRN SL Prn Chest Pain 07/03/20 20:30 08/02/20 20:29 Ondansetron HCl (Zofran) 4 mg Q6H PRN IVP Nausea & Vomiting 07/03/20 20:30 08/02/20 20:29 Piperacillin Sod/ Tazobactam Sod 3.375 gm/Sodium Chloride 110 ml @ 27.5 mls/hr EVERY 8 HOURS IVPB 07/10/20 14:00 07/15/20 13:59 07/13/20 13:20 Polyethylene Glycol (Miralax) 17 gm DAILYPRN PRN ORAL Constipation 07/03/20 20:30 08/02/20 20:29 Promethazine HCl/ Codeine (Phenergan with Codeine) 5 ml Q4H PRN ORAL For Cough 07/03/20 20:30 08/02/20 20:29 Tamsulosin HCl (Flomax) 0.4 mg BID ORAL 07/11/20 19:45 08/03/20 08:59 07/13/20 08:58 Vancomycin HCl 250 ml @ 166.667 mls/hr Q24H IVPB 07/13/20 06:00 07/18/20 05:59 07/13/20 05:53 Vancomycin HCl (Vanco pharmacy to dose) 1 ea DAILY PRN MISC Per rx protocol 07/03/20 20:30 08/02/20 20:29 Ashley Cho M.D. Jul 13, 2020 14:46
[2020-07-13] MEDS: Meropenem 1 GM in NS 55 ML IVPB SCH ×2 (15:51→16:08)
[2020-07-13 16:00] VITALS: BP 129/63
--- NOTE | 2020-07-13 16:34 | NUR ---
CASE MANAGEMENT:REVIEW 07/13/20 SI: COVID PNA 100.4 106 20 124/69 98% ON NON REBREATHER 15L 100% FIO2 WBC+18.5 NA+151 IS: IV MEROPENEM Q12 IV VANCOMYCIN Q24 IVF@100/HR HEPARIN SQ Q12 : TELEMETRY STATUS DCP; FROM [facility] PLAN: BLOOD CX
--- NOTE | 2020-07-13 16:45 | NUR ---
DISCHARGE PLANNING CLINICALS HAVE BEEN FAXED TO [facility]
[2020-07-13 16:52] LABS: APPEARANCE,URINE SLIGHTLY CLOUDY; BILIRUBIN, URINE NEGATIVE (NEGATIVE); GLUCOSE, URINE (UA) NEGATIVE (NEGATIVE); KETONES,URINE NEGATIVE (NEGATIVE); LEUKOCYTE ESTERASE ,URINE NEGATIVE (NEGATIVE); NITRITE,URINE NEGATIVE (NEGATIVE); PH,URINE 7 (4.5-8.0); PROTEIN,URINE 2+ (NEGATIVE); UROBILINOGEN,URINE 1 MG/DL (0.0-1.0)
[2020-07-13 16:59] LABS: COLOR,URINE YELLOW
[2020-07-13] MEDS ORDERED: Tubing IV Secondary IV ONE (17:15)
[2020-07-13] MEDS ORDERED: NS 275ml ONE (17:15)
--- NOTE | 2020-07-13 18:52 | Internal Med Progress Note ---
Subjective Date of Service: Jul 13, 2020 Physician Name YaneliDano Attending Physician Ahsan Hodges MD Current Medications Medications (Trade) Dose Ordered Sig/Ankush Route PRN Reason Start Time Stop Time Status Last Admin Dose Admin Acetaminophen (Tylenol) 650 mg Q4H PRN ORAL Temp >100.5 07/03/20 20:30 08/02/20 20:29 07/13/20 15:52 Dextrose 1,000 ml @ 100 mls/hr Q10H ONCE IV 07/13/20 11:30 07/13/20 21:29 07/13/20 11:30 Dextrose (Dextrose 50%) 50 ml Q30M PRN IV Hypoglycemia 07/03/20 22:45 10/01/20 22:44 Heparin Sodium (Porcine) (Heparin 5000 units/ml) 5,000 units EVERY 12 HOURS SUBQ 07/03/20 21:00 08/17/20 20:59 07/13/20 09:02 Insulin Aspart (NovoLOG) EVERY 6 HOURS SUBQ 07/13/20 06:00 10/02/20 06:29 07/13/20 18:16 Meropenem 1 gm/ Sodium Chloride 55 ml @ 110 mls/hr Q12HR@0400,1600 IVPB 07/13/20 16:00 07/18/20 15:59 07/13/20 16:08 Nitroglycerin (Ntg) 0.4 mg Q5M PRN SL Prn Chest Pain 07/03/20 20:30 08/02/20 20:29 Ondansetron HCl (Zofran) 4 mg Q6H PRN IVP Nausea & Vomiting 07/03/20 20:30 08/02/20 20:29 Polyethylene Glycol (Miralax) 17 gm DAILYPRN PRN ORAL Constipation 07/03/20 20:30 08/02/20 20:29 Promethazine HCl/ Codeine (Phenergan with Codeine) 5 ml Q4H PRN ORAL For Cough 07/03/20 20:30 08/02/20 20:29 Tamsulosin HCl (Flomax) 0.4 mg BID ORAL 07/11/20 19:45 08/03/20 08:59 07/13/20 18:16 Vancomycin HCl 250 ml @ 166.667 mls/hr Q24H IVPB 07/13/20 06:00 07/18/20 05:59 07/13/20 05:53 Vancomycin HCl ([facility] pharmacy to dose) 1 ea DAILY PRN MISC Per rx protocol 07/03/20 20:30 08/02/20 20:29 Allergies: Coded Allergies: No Known Allergies (Unverified , 04/30/12) ROS Limited/Unobtainable: Yes Subjective 79 YO M admitted with shortness of breath. Now pneumonia; previously COVID positive. Cover for Int med-Dr Hodges. On 100% non-rebreather mask Objective Last Vital Signs Date Time Temp Pulse Resp B/P (MAP) Pulse Ox O2 Delivery O2 Flow Rate FiO2 07/13/20 16:22 99.8 07/13/20 16:00 15.0 100 07/13/20 16:00 102 20 129/63 (85) 99 07/13/20 09:00 Non-Rebreather Laboratory Tests Test 07/12/20 20:45 07/13/20 05:54 07/13/20 08:10 07/13/20 13:33 POC Whole Blood Glucose 156 MG/DL (74-106) H Pending 149 MG/DL (74-106) H White Blood Count 18.5 K/UL (4.8-10.8) H Red Blood Count 3.46 M/UL (4.70-6.10) L Hemoglobin 10.3 G/DL (14.2-18.0) L Hematocrit 32.7 % (42.0-52.0) L Mean Corpuscular Volume 95 FL (80-99) Mean Corpuscular Hemoglobin 29.9 PG (27.0-31.0) Mean Corpuscular Hemoglobin Concent 31.6 G/DL (32.0-36.0) L Red Cell Distribution Width 15.3 % (11.6-14.8) H Platelet Count 248 K/UL (150-450) Mean Platelet Volume 9.8 FL (6.5-10.1) Neutrophils (%) (Auto) % (45.0-75.0) Lymphocytes (%) (Auto) % (20.0-45.0) Monocytes (%) (Auto) % (1.0-10.0) Eosinophils (%) (Auto) % (0.0-3.0) Basophils (%) (Auto) % (0.0-2.0) Differential Total Cells Counted 100 Neutrophils % (Manual) 82 % (45-75) H Lymphocytes % (Manual) 15 % (20-45) L Monocytes % (Manual) 3 % (1-10) Eosinophils % (Manual) 0 % (0-3) Basophils % (Manual) 0 % (0-2) Band Neutrophils 0 % (0-8) Platelet Estimate Adequate Platelet Morphology Normal Hypochromasia 1+ Anisocytosis 1+ Erythrocyte Sedimentation Rate 115 MM/HR (0-20) H Sodium Level 151 MMOL/L (136-145) H Potassium Level 4.3 MMOL/L (3.5-5.1) Chloride Level 112 MMOL/L (98-107) H Carbon Dioxide Level 30 MMOL/L (21-32) Anion Gap 9 mmol/L (5-15) Blood Urea Nitrogen 24 mg/dL (7-18) H Creatinine 1.3 MG/DL (0.55-1.30) Estimat Glomerular Filtration Rate 53.5 mL/min (>60) Glucose Level 160 MG/DL (74-106) H Calcium Level 9.0 MG/DL (8.5-10.1) Phosphorus Level 4.4 MG/DL (2.5-4.9) Magnesium Level 2.6 MG/DL (1.8-2.4) H Total Bilirubin 0.5 MG/DL (0.2-1.0) Aspartate Amino Transf (AST/SGOT) 40 U/L (15-37) H Alanine Aminotransferase (ALT/SGPT) 34 U/L (12-78) Alkaline Phosphatase 283 U/L (46-116) H C-Reactive Protein, Quantitative 20.8 mg/dL (0.00-0.90) H Total Protein 7.2 G/DL (6.4-8.2) Albumin 1.4 G/DL (3.4-5.0) L Globulin 5.8 g/dL Albumin/Globulin Ratio 0.2 (1.0-2.7) L Test 07/13/20 16:10 Urine Color Yellow Urine Appearance Slightly cloudy Urine pH 7 (4.5-8.0) Urine Specific [place] 1.005 (1.005-1.035) Urine Protein 2+ (NEGATIVE) H Urine Glucose (UA) Negative (NEGATIVE) Urine Ketones Negative (NEGATIVE) Urine Blood 2+ (NEGATIVE) H Urine Nitrite Negative (NEGATIVE) Urine Bilirubin Negative (NEGATIVE) Urine Urobilinogen 1 MG/DL (0.0-1.0) H Urine Leukocyte Esterase Negative (NEGATIVE) Urine RBC 2-4 /HPF (0 - 0) H Urine WBC 0-2 /HPF (0 - 0) Urine Squamous Epithelial Cells None /LPF (NONE/OCC) Urine Bacteria Few /HPF (NONE) Microbiology Date/Time Source Procedure Growth Status 07/10/20 22:00 Sputum Gram Stain - Final Resulted 07/10/20 22:00 Sputum Culture - Preliminary Staphylococcus Aureus - Mrsa Escherichia Coli Resulted Intake and Output 07/12/20 07/13/20 19:00 07:00 Intake Total 120 ml 810 ml Output Total 850 ml Balance 120 ml -40 ml Free Water 150 ml Tube Feeding 120 ml 660 ml Output Urine Total 850 ml # Bowel Movements 1 Objective PHYSICAL EXAMINATION: GENERAL: The patient awake with deep stimuli, open his eyes, however, cannot follow commands. The patient is on a Ventimask at this time, chronically ill-appearing. HEAD AND NECK: Pupils are equal and reactive to light. Anicteric. NECK: Supple. No JVD. LUNGS: 100 % non-rebreather mask; Good air entry. No wheezing or rhonchi, however the patient has a coarse breath sounds. Decreased air in bases. HEART: S1, S2. Regular rhythm. Distant heart sounds. No murmur or gallop. ABDOMEN: Soft, nondistended, nontender. Positive bowel sounds. EXTREMITIES: No cyanosis, clubbing, or edema. NEUROLOGIC: Very limited secondary to the patient's status, cannot follow commands. Opens his eyes with deep stimuli and moving extremities spontaneously. Assessment/Plan Assessment/Plan ASSESSMENT: 1. Acute hypoxemic respiratory failure, most likely secondary to pneumonia and sepsis. 2. Sepsis secondary to urinary tract infection and pneumonia. 3. pneumonia=MRSA 4. Acute kidney injury on chronic renal insufficiency. 5. Dehydration. 6. History of chronic congestive heart failure. 7. Diabetes type 2. 8. Dyslipidemia. 9. Hypertension. 10. Alzheimer's disease. 11. COVID 19 previous positive PLAN: 1. Telemetry status 2. Dr. Carreno,=Pulmonary Critical Care 3. Dr. Cho = Inf Dis. 4. IV= D5W due to the hypernatremia and dehydration. 5. antibiotics = vancomycin, zosyn and meropenem 6. Code status is full code. 7. DVT prophylaxis is heparin subcutaneous. Dano Groves MD Jul 13, 2020 18:52
--- NOTE | 2020-07-13 19:58 | NUR ---
NURSE HAND-OFF REPORT: Important Events on Shift: suction pt q 2hrs, monitor Temp. he had fever 101.8. gave medication and applied cooling measures both Sandra and Doctor Tammie corona. pt still on restraint Patient Status: full Diet: [place] Pending Orders: Pending Results/Labs: Pending MD notification: Latest Vital Signs: Temperature 99.8 , Pulse 97 , B/P 129 /63 , Respiratory Rate 20 , O2 SAT 99 , Non-Rebreather, O2 Flow Rate 15.0 . Vital Sign Comment: EKG Rhythm: Sinus Rhythm Rhythm change?: N MD Notified?: Y -Left Message for Dr. Hodges, No cardio on the case. MD Response: Latest Gonzalez Fall Score: 70 Fall Risk: High Risk Safety Measures: Call light Within Reach, Bed Alarm Zone 1, Side Rails Side Rails x3, Bed position Low and Locked. Fall Precautions: y Yellow Socks y Yellow Gown y Door Sign Patient Fall Education Report given to Mohini/FLORES.
--- NOTE | 2020-07-13 19:58 | NUR ---
NURSE NOTES: Patient received from Catherine TANNER. Patient A&Ox1. Patient able to open eyes but non verbal. Arousable to name and shaking. Saturating well on 15L of oxygen via Non Rebreather mask saturating well @ 100%. No facial grimacing noted for pain and no s/s of distress. Wiley catheter in place draining well to gravity for retention. IV site on Right wrist 22G running D5W @ 100mls/hr. NGTube patent and intact running Glucerna 1.2 @ 60mls/hr. Bed in lowest position and locked. Bed alarm on. WIll continue plan of care.
[2020-07-13 20:00] VITALS: BP 118/76
[2020-07-14] VITALS: BP 122/73
[2020-07-14] MEDS: Meropenem 1 GM in NS 55 ML IVPB SCH ×2 (03:46→15:28)
[2020-07-14 04:00] VITALS: BP 133/71
[2020-07-14] MEDS: Vancomycin 1.25gm/250ml Premix IVPB SCH (05:51)
[2020-07-14] MEDS: NovoLOG Insulin Flexpen SUBQ SCH ×3 (05:52→17:14)
--- NOTE | 2020-07-14 07:30 | NUR ---
NURSE NOTES: Received report from FLORES Rajan. Patient is resting in bed, in stable condition. No s/sx of SOB, breathing is even and unlabored, patient on non-rebreather 15L, SpO2 95%. NGT tube feeding right nares, patent and draining. Observed no presence of pain or discomfort at this time. Patient ntoed on bilateral soft wrist restraints for attempting to pull out medical devices, maintained for patient safety, will monitor. Bed is in lowest position, brakes engaged. Call light is kept within easy reach. Will continue to monitor patient.
--- NOTE | 2020-07-14 07:50 | NUR ---
NURSE HAND-OFF REPORT: Important Events on Shift:[Still congested] Patient Status: [] Diet: [Glucerna 1.2 @ 60mls/hr] Pending Orders: [] Pending Results/Labs:[] Pending MD notification:[] Latest Vital Signs: Temperature 98.4 , Pulse 78 , B/P 133 /71 , Respiratory Rate 20 , O2 SAT 100 , Non-Rebreather, O2 Flow Rate 15.0 . Vital Sign Comment: [] EKG Rhythm: Sinus Rhythm Rhythm change?: N MD Notified?: Y -Left Message for Dr. Hodges, No cardio on the case. MD Response: Latest Gonzalez Fall Score: 70 Fall Risk: High Risk Safety Measures: Call light Within Reach, Bed Alarm Zone 1, Side Rails Side Rails x3, Bed position Low and Locked. Fall Precautions: Yellow Socks Yellow Gown Door Sign Patient Fall Education Report given to [Yousif RN].
[2020-07-14 08:00] VITALS: BP 112/55
[2020-07-14] MEDS: Heparin 5000 units/ml inj SUBQ SCH ×2 (08:05→20:46)
[2020-07-14] MEDS: Tamsulosin 0.4mg cap ORAL SCH ×2 (08:05→17:32)
--- NOTE | 2020-07-14 08:17 | NUR ---
RADIOLOGY DEPT., CHEST X-RAY PAUL
[2020-07-14 08:50] LABS: BASOPHILS % (AUTO) 0.9 % (0.0-2.0); EOSINOPHILS % (AUTO) 0.9 % (0.0-3.0); HEMATOCRIT 32.6 % (42.0-52.0); HEMOGLOBIN 10.1 G/DL (14.2-18.0); LYMPHOCYTES % (AUTO) 8.2 % (20.0-45.0); MEAN CORPUSCULAR VOLUME 97 FL (80-99); NEUTROPHILS % (AUTO) 83.9 % (45.0-75.0); PLATELET COUNT 297 K/UL (150-450); RED BLOOD COUNT 3.35 M/UL (4.70-6.10); RED CELL DISTRIBUTION WIDTH 14.4 % (11.6-14.8); WHITE BLOOD COUNT 15.7 K/UL (4.8-10.8)
[2020-07-14 09:10] LABS: ALANINE AMINOTRANSFERASE 36 U/L (12-78); ALBUMIN 1.3 G/DL (3.4-5.0); ALBUMIN/GLOBULIN RATIO 0.2 (1.0-2.7); ALKALINE PHOSPHATASE 331 U/L (46-116); ANION GAP 4 mmol/L (5-15); ASPARTATE AMINO TRANSFERASE 42 U/L (15-37); BILIRUBIN,TOTAL 0.4 MG/DL (0.2-1.0); BLOOD UREA NITROGEN 21 mg/dL (7-18); CALCIUM 8.7 MG/DL (8.5-10.1); CARBON DIOXIDE 32 MMOL/L (21-32); CHLORIDE 109 MMOL/L (98-107); CREATININE 1.1 MG/DL (0.55-1.30); PHOSPHORUS 3.4 MG/DL (2.5-4.9); POTASSIUM 4.4 MMOL/L (3.5-5.1); SODIUM 145 MMOL/L (136-145)
--- NOTE | 2020-07-14 10:10 | Diagnostic Imaging Report ---
Indication: Dyspnea Technique: One view of the chest Comparison: 07/10/2020 Findings: There is increasing infiltrate at the left lung base. There is increasing atelectasis and possibly some consolidation at the right lung base as well. Left perihilar infiltrate appears similar to the previous exam. Right shoulder prosthesis is again demonstrated. Nasogastric tube again demonstrated Impression: Increasing left basilar infiltrate and right basilar atelectasis
--- NOTE | 2020-07-14 10:40 | NUR ---
DISCHARGE UPDATE SPOKE WITH YUE AT [facility] PER YUE THEY CANNOT RECEIVE PATIENT ON 100% FIO2 PATIENT NEEDS TO BE WEANED DOWN TO AT LEAST 90%
--- NOTE | 2020-07-14 10:43 | NUR ---
DISCHARGE PLANNING PATIENT HAS BEEN REFERRED TO [facility] WILL FOLLOW UP
--- NOTE | 2020-07-14 10:55 | NUR ---
NURSE NOTES: Patient noted with positive for ESBL sputum per microbiology, patient noted with Merrem 1 gm IVPB Q12HR, Vancomycin per pharmacy, patient had temperature of 100.2 F this morning, now temperature of 99.5 F. Contacted and informed Dr. Cho of assessments. Dr. Cho acknowledged and gave no new orders at this time. Will continue to monitor patient.
--- NOTE | 2020-07-14 11:30 | Pulmonology Progress Note ---
Subjective ROS Limited/Unobtainable: Yes Interval Events: unchagned Allergies: Coded Allergies: No Known Allergies (Unverified , 04/30/12) Objective Last 24 Hour Vital Signs Date Time Temp Pulse Resp B/P (MAP) Pulse Ox O2 Delivery O2 Flow Rate FiO2 07/14/20 09:00 Non-Rebreather 15.0 07/14/20 09:00 99.5 07/14/20 08:08 100 Non-Rebreather 15.0 100 07/14/20 08:00 100.2 83 20 112/55 (74) 100 07/14/20 08:00 81 07/14/20 08:00 15.0 100 07/14/20 04:00 98.4 78 20 133/71 (91) 100 07/14/20 04:00 15.0 100 07/14/20 04:00 88 07/14/20 02:00 15.0 100 07/14/20 00:00 98.4 84 20 122/73 (89) 100 07/14/20 00:00 101 07/14/20 00:00 15.0 100 07/13/20 21:00 Non-Rebreather 15.0 07/13/20 20:00 15.0 100 07/13/20 20:00 67 07/13/20 20:00 97.5 67 20 118/76 (90) 99 07/13/20 19:00 99 Non-Rebreather 15.0 100 07/13/20 16:22 99.8 07/13/20 16:00 97 07/13/20 16:00 15.0 100 07/13/20 16:00 101.8 102 20 129/63 (85) 99 07/13/20 12:00 15.0 100 07/13/20 12:00 100.4 98 20 124/69 (87) 98 07/13/20 12:00 106 Intake and Output 07/13/20 07/14/20 19:00 07:00 Output Total 500 ml 500 ml Balance -500 ml -500 ml Output Urine Total 500 ml 500 ml # Bowel Movements 1 General Appearance: WD/WN, no acute distress HEENT: normocephalic, atraumatic Respiratory: chest wall non-tender, respiratory distress, rhonchi - left, rhonchi - right Cardiovascular: normal rate Abdomen: normal bowel sounds, no organomegaly Genitourinary: normal external genitalia Skin: no rash Laboratory Tests 07/13/20 13:33: POC Whole Blood Glucose 149H 07/13/20 16:10: Urine Color Yellow, Urine Appearance Slightly cloudy, Urine pH 7, Urine Specific [place] 1.005, Urine Protein 2+H, Urine Glucose (UA) Negative, Urine Ketones Negative, Urine Blood 2+H, Urine Nitrite Negative, Urine Bilirubin Negative, Urine Urobilinogen 1H, Urine Leukocyte Esterase Negative, Urine RBC 2-4H, Urine WBC 0-2, Urine Squamous Epithelial Cells None, Urine Bacteria Few 07/13/20 18:09: POC Whole Blood Glucose [Pending] 07/13/20 23:16: POC Whole Blood Glucose [Pending] 07/14/20 05:18: POC Whole Blood Glucose 140H 07/14/20 08:20: White Blood Count 15.7H, Red Blood Count 3.35L, Hemoglobin 10.1L, Hematocrit 32.6L, Mean Corpuscular Volume 97, Mean Corpuscular Hemoglobin 30.1, Mean Corpuscular Hemoglobin Concent 30.9L, Red Cell Distribution Width 14.4, Platelet Count 297, Mean Platelet Volume 9.7, Neutrophils (%) (Auto) 83.9H, Lymphocytes (%) (Auto) 8.2L, Monocytes (%) (Auto) 6.0, Eosinophils (%) (Auto) 0.9, Basophils (%) (Auto) 0.9, Erythrocyte Sedimentation Rate 116H, Sodium Level 145, [place] um Level 4.4, Chloride Level 109H, Carbon Dioxide Level 32, Anion Gap 4L, Blood Urea Nitrogen 21H, Creatinine 1.1, Estimat Glomerular Filtration Rate > 60, Glucose Level 116H, Lactic Acid Level 1.30, Calcium Level 8.7, Phosphorus Level 3.4, Magnesium Level 2.5H, Total Bilirubin 0.4, Aspartate Amino Transf (AST/SGOT) 42H, Alanine Aminotransferase (ALT/SGPT) 36, Alkaline Phosphatase 331H, C-Reactive Protein, Quantitative 14.9H, Total Protein 7.0, Albumin 1.3L, Globulin 5.7, Albumin/Globulin Ratio 0.2L 07/14/20 08:29: Arterial Blood pH 7.439, Arterial Blood Partial Pressure CO2 48.9H, Arterial Blood Partial Pressure O2 157.6H, Arterial Blood HCO3 32.4H, Arterial Blood Oxygen Saturation 98.8, Arterial Blood Base Excess 7.2H, Richard Test Positive Current Medications Medications (Trade) Dose Ordered Sig/Ankush Route PRN Reason Start Time Stop Time Status Last Admin Dose Admin Acetaminophen (Tylenol) 650 mg Q4H PRN ORAL Temp >100.5 07/03/20 20:30 08/02/20 20:29 07/13/20 15:52 Dextrose (Dextrose 50%) 50 ml Q30M PRN IV Hypoglycemia 07/03/20 22:45 10/01/20 22:44 Heparin Sodium (Porcine) (Heparin 5000 units/ml) 5,000 units EVERY 12 HOURS SUBQ 07/03/20 21:00 08/17/20 20:59 07/14/20 08:05 Insulin Aspart (NovoLOG) EVERY 6 HOURS SUBQ 07/13/20 06:00 10/02/20 06:29 07/14/20 05:52 Meropenem 1 gm/ Sodium Chloride 55 ml @ 110 mls/hr Q12HR@0400,1600 IVPB 07/13/20 16:00 07/18/20 15:59 07/14/20 03:46 Nitroglycerin (Ntg) 0.4 mg Q5M PRN SL Prn Chest Pain 07/03/20 20:30 08/02/20 20:29 Ondansetron HCl (Zofran) 4 mg Q6H PRN IVP Nausea & Vomiting 07/03/20 20:30 08/02/20 20:29 Polyethylene Glycol (Miralax) 17 gm DAILYPRN PRN ORAL Constipation 07/03/20 20:30 08/02/20 20:29 Promethazine HCl/ Codeine (Phenergan with Codeine) 5 ml Q4H PRN ORAL For Cough 07/03/20 20:30 08/02/20 20:29 Tamsulosin HCl (Flomax) 0.4 mg BID ORAL 07/11/20 19:45 08/03/20 08:59 07/14/20 08:05 Vancomycin HCl 250 ml @ 166.667 mls/hr Q24H IVPB 07/13/20 06:00 07/18/20 05:59 07/14/20 05:51 Vancomycin HCl ([facility] pharmacy to dose) 1 ea DAILY PRN MISC Per rx protocol 07/03/20 20:30 08/02/20 20:29 Assessment/Plan Problems: (1) 2019 novel coronavirus disease (COVID-19) (2) Severe sepsis (3) Acute encephalopathy (4) HTN (hypertension) (5) Aphasia (6) Alzheimer's dementia (7) History of CVA (cerebrovascular accident) (8) BPH (benign prostatic hyperplasia) Assessment/Plan wbc still high, pt is febrile repeat cxr showing increasing infiltrate CRP rising titrate fio2 to sat of 92% frequent suctioning continue abx check electrolytes tolerating feeding aspiration precaution dvt prophylaxis. Kya Carreno MD Jul 14, 2020 11:30
[2020-07-14 11:48] VITALS: BP 99/58
--- NOTE | 2020-07-14 12:19 | Cardiac Electrophysiology PN ---
Assessment/Plan Assessment/Plan 1. Accelerated junctional rhythm. Not bradycardic. Ruled out for MA Echo showed ejection fraction of 55%. 2. Sepsis, on broad-spectrum IV antibiotic. 3. Respiratory failure, on antibiotic and venturi mask 10 liters 4. Dehydration. 5. Acute renal failure. 6. Electrolyte imbalance. 7. History of CHF, but echocardiogram showed normal left ventricular systolic function. 8. History of previous COVID infection in May 2020 and Active Covid now in isolation 9. Dementia. DW RN Subjective Subjective In SR in NAD in Covid isolation.No events on Abx Objective Last 24 Hour Vital Signs Date Time Temp Pulse Resp B/P (MAP) Pulse Ox O2 Delivery O2 Flow Rate FiO2 07/14/20 12:00 10.0 50 07/14/20 11:48 99.3 81 20 99/58 (72) 100 07/14/20 09:00 Non-Rebreather 15.0 07/14/20 09:00 99.5 07/14/20 08:08 100 Non-Rebreather 15.0 100 07/14/20 08:00 100.2 83 20 112/55 (74) 100 07/14/20 08:00 81 07/14/20 08:00 15.0 100 07/14/20 04:00 98.4 78 20 133/71 (91) 100 07/14/20 04:00 15.0 100 07/14/20 04:00 88 07/14/20 02:00 15.0 100 07/14/20 00:00 98.4 84 20 122/73 (89) 100 07/14/20 00:00 101 07/14/20 00:00 15.0 100 07/13/20 21:00 Non-Rebreather 15.0 07/13/20 20:00 15.0 100 07/13/20 20:00 67 07/13/20 20:00 97.5 67 20 118/76 (90) 99 07/13/20 19:00 99 Non-Rebreather 15.0 100 07/13/20 16:22 99.8 07/13/20 16:00 97 07/13/20 16:00 15.0 100 07/13/20 16:00 101.8 102 20 129/63 (85) 99 Intake and Output 07/13/20 07/14/20 19:00 07:00 Output Total 500 ml 500 ml Balance -500 ml -500 ml Output Urine Total 500 ml 500 ml # Bowel Movements 1 Laboratory Tests Test 07/13/20 13:33 07/13/20 16:10 07/13/20 18:09 07/13/20 23:16 POC Whole Blood Glucose 149 MG/DL (74-106) H Pending Pending Urine Color Yellow Urine Appearance Slightly cloudy Urine pH 7 (4.5-8.0) Urine Specific [place] 1.005 (1.005-1.035) Urine Protein 2+ (NEGATIVE) H Urine Glucose (UA) Negative (NEGATIVE) Urine Ketones Negative (NEGATIVE) Urine Blood 2+ (NEGATIVE) H Urine Nitrite Negative (NEGATIVE) Urine Bilirubin Negative (NEGATIVE) Urine Urobilinogen 1 MG/DL (0.0-1.0) H Urine Leukocyte Esterase Negative (NEGATIVE) Urine RBC 2-4 /HPF (0 - 0) H Urine WBC 0-2 /HPF (0 - 0) Urine Squamous Epithelial Cells None /LPF (NONE/OCC) Urine Bacteria Few /HPF (NONE) Test 07/14/20 05:18 07/14/20 08:20 07/14/20 08:29 07/14/20 11:46 POC Whole Blood Glucose 140 MG/DL (74-106) H 141 MG/DL (74-106) H White Blood Count 15.7 K/UL (4.8-10.8) H Red Blood Count 3.35 M/UL (4.70-6.10) L Hemoglobin 10.1 G/DL (14.2-18.0) L Hematocrit 32.6 % (42.0-52.0) L Mean Corpuscular Volume 97 FL (80-99) Mean Corpuscular Hemoglobin 30.1 PG (27.0-31.0) Mean Corpuscular Hemoglobin Concent 30.9 G/DL (32.0-36.0) L Red Cell Distribution Width 14.4 % (11.6-14.8) Platelet Count 297 K/UL (150-450) Mean Platelet Volume 9.7 FL (6.5-10.1) Neutrophils (%) (Auto) 83.9 % (45.0-75.0) H Lymphocytes (%) (Auto) 8.2 % (20.0-45.0) L Monocytes (%) (Auto) 6.0 % (1.0-10.0) Eosinophils (%) (Auto) 0.9 % (0.0-3.0) Basophils (%) (Auto) 0.9 % (0.0-2.0) Erythrocyte Sedimentation Rate 116 MM/HR (0-20) H Sodium Level 145 MMOL/L (136-145) Potassium Level 4.4 MMOL/L (3.5-5.1) Chloride Level 109 MMOL/L (98-107) H Carbon Dioxide Level 32 MMOL/L (21-32) Anion Gap 4 mmol/L (5-15) L Blood Urea Nitrogen 21 mg/dL (7-18) H Creatinine 1.1 MG/DL (0.55-1.30) Estimat Glomerular Filtration Rate > 60 mL/min (>60) Glucose Level 116 MG/DL (74-106) H Lactic Acid Level 1.30 mmol/L (0.4-2.0) Calcium Level 8.7 MG/DL (8.5-10.1) Phosphorus Level 3.4 MG/DL (2.5-4.9) Magnesium Level 2.5 MG/DL (1.8-2.4) H Total Bilirubin 0.4 MG/DL (0.2-1.0) Aspartate Amino Transf (AST/SGOT) 42 U/L (15-37) H Alanine Aminotransferase (ALT/SGPT) 36 U/L (12-78) Alkaline Phosphatase 331 U/L (46-116) H C-Reactive Protein, Quantitative 14.9 mg/dL (0.00-0.90) H Total Protein 7.0 G/DL (6.4-8.2) Albumin 1.3 G/DL (3.4-5.0) L Globulin 5.7 g/dL Albumin/Globulin Ratio 0.2 (1.0-2.7) L Arterial Blood pH 7.439 (7.350-7.450) Arterial Blood Partial Pressure CO2 48.9 mmHg (35.0-45.0) H Arterial Blood Partial Pressure O2 157.6 mmHg (75.0-100.0) H Arterial Blood HCO3 32.4 mmol/L (22.0-26.0) H Arterial Blood Oxygen Saturation 98.8 % (95-100) Arterial Blood Base Excess 7.2 (-2-2) H Richard Test Positive Objective HEAD AND NECK: No JVD. NRB FM LUNGS: Coarse rhonchi. CARDIOVASCULAR: Irregular S1 and S2 with no gallop. ABDOMEN: Soft. EXTREMITIES: No pitting edema. Klever Matt MD Jul 14, 2020 12:19
--- NOTE | 2020-07-14 12:55 | Infectious Diseases Prog Note ---
Assessment/Plan 79yo M with: Fever,r ecurrent Leukocytosis ;recurrent ; increased; now improving Acute hypoxic resp failure, on NRB mask> 4l NC; back on NRB, desaturation 07/09 Pneumonia- >HAP hx of COVID19 PNA 05/20/2007/10 Sp cx MRSA (Vancomycin APOLONIA 1), ESBL E.coli 07/03 BCx NTD UA 15-20 WBC, UCx Neg 07/03 COVID rapid neg; 07/06 rapid COVID PCR + (from prior infection)- not new infection Flu A/B neg CXR: L pna Resp cx MRSA Denis on CKD, improving SNF resident ([facility]) Non-verbal VRE and MRSA colonized Plan: Cont vanco #12/ for MRSA PNA Meropenem #2/7 for ESBL PNA -07/13 SP Zosyn #4 -07/06 SP Cefepime #4 -07/04 SP Flagyl # Monitor CBC/CMP Monitor resp status Monitor temp curve and hemodynamics off COVID isolation- positive covid test represents residual virus from infection on 05/2020 f/u bcx x2, ua. w. reflex D/w RN Thank you for this consult. [facility] will continue to follow. Subjective Allergies: Coded Allergies: No Known Allergies (Unverified , 04/30/12) Tm 101.8 on nRB wbc improving Objective Last 24 Hour Vital Signs Date Time Temp Pulse Resp B/P (MAP) Pulse Ox O2 Delivery O2 Flow Rate FiO2 07/14/20 12:00 10.0 50 07/14/20 11:48 99.3 81 20 99/58 (72) 100 07/14/20 09:00 Non-Rebreather 15.0 07/14/20 09:00 99.5 07/14/20 08:08 100 Non-Rebreather 15.0 100 07/14/20 08:00 100.2 83 20 112/55 (74) 100 07/14/20 08:00 81 07/14/20 08:00 15.0 100 07/14/20 04:00 98.4 78 20 133/71 (91) 100 07/14/20 04:00 15.0 100 07/14/20 04:00 88 07/14/20 02:00 15.0 100 07/14/20 00:00 98.4 84 20 122/73 (89) 100 07/14/20 00:00 101 07/14/20 00:00 15.0 100 07/13/20 21:00 Non-Rebreather 15.0 07/13/20 20:00 15.0 100 07/13/20 20:00 67 07/13/20 20:00 97.5 67 20 118/76 (90) 99 07/13/20 19:00 99 Non-Rebreather 15.0 100 07/13/20 16:22 99.8 07/13/20 16:00 97 07/13/20 16:00 15.0 100 07/13/20 16:00 101.8 102 20 129/63 (85) 99 Height (Feet): 5 Height (Inches): 4.00 Weight (Pounds): 130 Gen: NAD CV: RRR Pulm: Rhonchi anteriorly, lots of oral secretions Abd: Soft, NTND Ext: No c/c/e Neuro: Awake Laboratory Tests Test 07/13/20 13:33 07/13/20 16:10 07/13/20 18:09 07/13/20 23:16 POC Whole Blood Glucose 149 MG/DL (74-106) H Pending Pending Urine Color Yellow Urine Appearance Slightly cloudy Urine pH 7 (4.5-8.0) Urine Specific [place] 1.005 (1.005-1.035) Urine Protein 2+ (NEGATIVE) H Urine Glucose (UA) Negative (NEGATIVE) Urine Ketones Negative (NEGATIVE) Urine Blood 2+ (NEGATIVE) H Urine Nitrite Negative (NEGATIVE) Urine Bilirubin Negative (NEGATIVE) Urine Urobilinogen 1 MG/DL (0.0-1.0) H Urine Leukocyte Esterase Negative (NEGATIVE) Urine RBC 2-4 /HPF (0 - 0) H Urine WBC 0-2 /HPF (0 - 0) Urine Squamous Epithelial Cells None /LPF (NONE/OCC) Urine Bacteria Few /HPF (NONE) Test 07/14/20 05:18 07/14/20 08:20 07/14/20 08:29 07/14/20 11:46 POC Whole Blood Glucose 140 MG/DL (74-106) H 141 MG/DL (74-106) H White Blood Count 15.7 K/UL (4.8-10.8) H Red Blood Count 3.35 M/UL (4.70-6.10) L Hemoglobin 10.1 G/DL (14.2-18.0) L Hematocrit 32.6 % (42.0-52.0) L Mean Corpuscular Volume 97 FL (80-99) Mean Corpuscular Hemoglobin 30.1 PG (27.0-31.0) Mean Corpuscular Hemoglobin Concent 30.9 G/DL (32.0-36.0) L Red Cell Distribution Width 14.4 % (11.6-14.8) Platelet Count 297 K/UL (150-450) Mean Platelet Volume 9.7 FL (6.5-10.1) Neutrophils (%) (Auto) 83.9 % (45.0-75.0) H Lymphocytes (%) (Auto) 8.2 % (20.0-45.0) L Monocytes (%) (Auto) 6.0 % (1.0-10.0) Eosinophils (%) (Auto) 0.9 % (0.0-3.0) Basophils (%) (Auto) 0.9 % (0.0-2.0) Erythrocyte Sedimentation Rate 116 MM/HR (0-20) H Sodium Level 145 MMOL/L (136-145) Potassium Level 4.4 MMOL/L (3.5-5.1) Chloride Level 109 MMOL/L (98-107) H Carbon Dioxide Level 32 MMOL/L (21-32) Anion Gap 4 mmol/L (5-15) L Blood Urea Nitrogen 21 mg/dL (7-18) H Creatinine 1.1 MG/DL (0.55-1.30) Estimat Glomerular Filtration Rate > 60 mL/min (>60) Glucose Level 116 MG/DL (74-106) H Lactic Acid Level 1.30 mmol/L (0.4-2.0) Calcium Level 8.7 MG/DL (8.5-10.1) Phosphorus Level 3.4 MG/DL (2.5-4.9) Magnesium Level 2.5 MG/DL (1.8-2.4) H Total Bilirubin 0.4 MG/DL (0.2-1.0) Aspartate Amino Transf (AST/SGOT) 42 U/L (15-37) H Alanine Aminotransferase (ALT/SGPT) 36 U/L (12-78) Alkaline Phosphatase 331 U/L (46-116) H C-Reactive Protein, Quantitative 14.9 mg/dL (0.00-0.90) H Total Protein 7.0 G/DL (6.4-8.2) Albumin 1.3 G/DL (3.4-5.0) L Globulin 5.7 g/dL Albumin/Globulin Ratio 0.2 (1.0-2.7) L Arterial Blood pH 7.439 (7.350-7.450) Arterial Blood Partial Pressure CO2 48.9 mmHg (35.0-45.0) H Arterial Blood Partial Pressure O2 157.6 mmHg (75.0-100.0) H Arterial Blood HCO3 32.4 mmol/L (22.0-26.0) H Arterial Blood Oxygen Saturation 98.8 % (95-100) Arterial Blood Base Excess 7.2 (-2-2) H Richard Test Positive Current Medications Medications (Trade) Dose Ordered Sig/Ankush Route PRN Reason Start Time Stop Time Status Last Admin Dose Admin Acetaminophen (Tylenol) 650 mg Q4H PRN ORAL Temp >100.5 07/03/20 20:30 08/02/20 20:29 07/13/20 15:52 Dextrose (Dextrose 50%) 50 ml Q30M PRN IV Hypoglycemia 07/03/20 22:45 10/01/20 22:44 Heparin Sodium (Porcine) (Heparin 5000 units/ml) 5,000 units EVERY 12 HOURS SUBQ 07/03/20 21:00 08/17/20 20:59 07/14/20 08:05 Insulin Aspart (NovoLOG) EVERY 6 HOURS SUBQ 07/13/20 06:00 10/02/20 06:29 07/14/20 11:56 Meropenem 1 gm/ Sodium Chloride 55 ml @ 110 mls/hr Q12HR@0400,1600 IVPB 07/13/20 16:00 07/18/20 15:59 07/14/20 03:46 Nitroglycerin (Ntg) 0.4 mg Q5M PRN SL Prn Chest Pain 07/03/20 20:30 08/02/20 20:29 Ondansetron HCl (Zofran) 4 mg Q6H PRN IVP Nausea & Vomiting 07/03/20 20:30 08/02/20 20:29 Polyethylene Glycol (Miralax) 17 gm DAILYPRN PRN ORAL Constipation 07/03/20 20:30 08/02/20 20:29 Promethazine HCl/ Codeine (Phenergan with Codeine) 5 ml Q4H PRN ORAL For Cough 07/03/20 20:30 08/02/20 20:29 Tamsulosin HCl (Flomax) 0.4 mg BID ORAL 07/11/20 19:45 08/03/20 08:59 07/14/20 08:05 Vancomycin HCl 250 ml @ 166.667 mls/hr Q24H IVPB 07/13/20 06:00 07/18/20 05:59 07/14/20 05:51 Vancomycin HCl (Vanco pharmacy to dose) 1 ea DAILY PRN MISC Per rx protocol 07/03/20 20:30 08/02/20 20:29 Ashley Cho M.D. Jul 14, 2020 12:55
--- NOTE | 2020-07-14 14:44 | Nephrology Progress Note ---
Assessment/Plan Problem List: (1) Dehydration (2) MELANIE (acute kidney injury) (3) Renal failure (ARF), acute on chronic (4) Hypoxia (5) Acute encephalopathy (6) Electrolyte imbalance Assessment 79-year-old male is admitted with acute hypoxic respiratory failure most likely secondary to pneumonia and sepsis, UTI. Acute on chronic renal failure Dehydration Electrolyte imbalances, hypernatremia Hypoalbuminemia Diabetes type 2 History of congestive heart failure Hypertension Hyperlipemia Alzheimer's Previous COVID-19 infection in May 2020 Plan July 14: On nonrebreather mask. Inflammatory markers gradually declining. Renal parameters stable. Continue per pulmonary. July 13: Remains on nonrebreather mask. Inflammatory markers remain elevated. Renal parameters somewhat stable. Continue per pulmonary and ID. Remains full code. July 12: Patient on nonrebreather mask. Labs noted. Serum creatinine down to 1.3. Continue per consultants. July 11: Patient on nonrebreather mask. Transfer to telemetry when seen this morning. Labs noted. Continue per consultants. Serum creatinine erin to 1.7. Continue to monitor renal parameters. Continue to monitor vancomycin level July 10: Patient is not doing well clinically. Mild respiratory distress. ABG noted. Somewhat hypoxic. CBC and chemistry panel ordered. Discussed with FLORES Cho. Will defer to pulmonary management to specialist. Continue per ID. Renal parameters remained stable as of July 09. July 09: Labs reviewed. Renal parameters stable. Continue per consultants. July 08: Labs reviewed. Potassium via NG tube ordered. IV fluids stopped. Continue per consultants. July 07: Labs reviewed. Low potassium and low phosphorus replaced. Continue per consultants. Remains stable from renal standpoint of view. July 06: Patient remains n.p.o. IV fluid down to 50 cc an hour. Potassium supplement intravenously ordered. Continue per consultants. Previously: Patient is n.p.o., will continue on IV fluid of D5W 75 cc an hour We will monitor electrolytes and renal parameters Avoid nephrotoxic's Start p.o. when he clears by speech therapist, meanwhile aspiration precautions Keep the blood pressure and blood sugar in check Per orders Subjective ROS Limited/Unobtainable: No Constitutional: Reports: malaise, weakness Objective Objective Last 24 Hour Vital Signs Date Time Temp Pulse Resp B/P (MAP) Pulse Ox O2 Delivery O2 Flow Rate FiO2 07/14/20 12:00 10.0 50 07/14/20 12:00 69 07/14/20 11:48 99.3 81 20 99/58 (72) 100 07/14/20 09:00 Non-Rebreather 15.0 07/14/20 09:00 99.5 07/14/20 08:08 100 Non-Rebreather 15.0 100 07/14/20 08:00 100.2 83 20 112/55 (74) 100 07/14/20 08:00 81 07/14/20 08:00 15.0 100 07/14/20 04:00 98.4 78 20 133/71 (91) 100 07/14/20 04:00 15.0 100 07/14/20 04:00 88 07/14/20 02:00 15.0 100 07/14/20 00:00 98.4 84 20 122/73 (89) 100 07/14/20 00:00 101 07/14/20 00:00 15.0 100 07/13/20 21:00 Non-Rebreather 15.0 07/13/20 20:00 15.0 100 07/13/20 20:00 67 07/13/20 20:00 97.5 67 20 118/76 (90) 99 07/13/20 19:00 99 Non-Rebreather 15.0 100 07/13/20 16:22 99.8 07/13/20 16:00 97 07/13/20 16:00 15.0 100 07/13/20 16:00 101.8 102 20 129/63 (85) 99 Intake and Output 07/13/20 07/14/20 19:00 07:00 Output Total 500 ml 500 ml Balance -500 ml -500 ml Output Urine Total 500 ml 500 ml # Bowel Movements 1 Laboratory Tests 07/13/20 16:10: Urine Color Yellow, Urine Appearance Slightly cloudy, Urine pH 7, Urine Specific [place] 1.005, Urine Protein 2+H, Urine Glucose (UA) Negative, Urine Ketones Negative, Urine Blood 2+H, Urine Nitrite Negative, Urine Bilirubin Negative, Urine Urobilinogen 1H, Urine Leukocyte Esterase Negative, Urine RBC 2-4H, Urine WBC 0-2, Urine Squamous Epithelial Cells None, Urine Bacteria Few 07/13/20 18:09: POC Whole Blood Glucose [Pending] 07/13/20 23:16: POC Whole Blood Glucose [Pending] 07/14/20 05:18: POC Whole Blood Glucose 140H 07/14/20 08:20: White Blood Count 15.7H, Red Blood Count 3.35L, Hemoglobin 10.1L, Hematocrit 32.6L, Mean Corpuscular Volume 97, Mean Corpuscular Hemoglobin 30.1, Mean Corpuscular Hemoglobin Concent 30.9L, Red Cell Distribution Width 14.4, Platelet Count 297, Mean Platelet Volume 9.7, Neutrophils (%) (Auto) 83.9H, Lymphocytes (%) (Auto) 8.2L, Monocytes (%) (Auto) 6.0, Eosinophils (%) (Auto) 0.9, Basophils (%) (Auto) 0.9, Erythrocyte Sedimentation Rate 116H, Sodium Level 145, Potassium Level 4.4, Chloride Level 109H, Carbon Dioxide Level 32, Anion Gap 4L, Blood Urea Nitrogen 21H, Creatinine 1.1, Estimat Glomerular Filtration Rate > 60, Glucose Level 116H, Lactic Acid Level 1.30, Calcium Level 8.7, Phosphorus Level 3.4, Magnesium Level 2.5H, Total Bilirubin 0.4, Aspartate Amino Transf (AST/SGOT) 42H, Alanine Aminotransferase (ALT/SGPT) 36, Alkaline Phosphatase 331H, C-Reactive Protein, Quantitative 14.9H, Total Protein 7.0, Albumin 1.3L, Globulin 5.7, Albumin/Globulin Ratio 0.2L 07/14/20 08:29: Arterial Blood pH 7.439, Arterial Blood Partial Pressure CO2 48.9H, Arterial Blood Partial Pressure O2 157.6H, Arterial Blood HCO3 32.4H, Arterial Blood Oxygen Saturation 98.8, Arterial Blood Base Excess 7.2H, Richard Test Positive 07/14/20 11:46: POC Whole Blood Glucose 141H Height (Feet): 5 Height (Inches): 4.00 Weight (Pounds): 130 General Appearance: no apparent distress, lethargic, confused EENT: other - On nonrebreather mask Cardiovascular: normal rate Respiratory/Chest: decreased breath sounds Abdomen: soft, distended Tino Connors MD Jul 14, 2020 14:44
[2020-07-14 16:00] VITALS: BP 116/74
--- NOTE | 2020-07-14 17:56 | Internal Med Progress Note ---
Subjective Date of Service: Jul 14, 2020 Physician Name Dano Groves Attending Physician Ahsan Hodges MD Current Medications Medications (Trade) Dose Ordered Sig/Ankush Route PRN Reason Start Time Stop Time Status Last Admin Dose Admin Acetaminophen (Tylenol) 650 mg Q4H PRN ORAL Temp >100.5 07/03/20 20:30 08/02/20 20:29 07/13/20 15:52 Dextrose (Dextrose 50%) 50 ml Q30M PRN IV Hypoglycemia 07/03/20 22:45 10/01/20 22:44 Heparin Sodium (Porcine) (Heparin 5000 units/ml) 5,000 units EVERY 12 HOURS SUBQ 07/03/20 21:00 08/17/20 20:59 07/14/20 08:05 Insulin Aspart (NovoLOG) EVERY 6 HOURS SUBQ 07/13/20 06:00 10/02/20 06:29 07/14/20 11:56 Meropenem 1 gm/ Sodium Chloride 55 ml @ 110 mls/hr Q12HR@0400,1600 IVPB 07/13/20 16:00 07/18/20 15:59 07/14/20 15:28 Nitroglycerin (Ntg) 0.4 mg Q5M PRN SL Prn Chest Pain 07/03/20 20:30 08/02/20 20:29 Ondansetron HCl (Zofran) 4 mg Q6H PRN IVP Nausea & Vomiting 07/03/20 20:30 08/02/20 20:29 Polyethylene Glycol (Miralax) 17 gm DAILYPRN PRN ORAL Constipation 07/03/20 20:30 08/02/20 20:29 Promethazine HCl/ Codeine (Phenergan with Codeine) 5 ml Q4H PRN ORAL For Cough 07/03/20 20:30 08/02/20 20:29 Tamsulosin HCl (Flomax) 0.4 mg BID ORAL 07/11/20 19:45 08/03/20 08:59 07/14/20 17:32 Vancomycin HCl 250 ml @ 166.667 mls/hr Q24H IVPB 07/13/20 06:00 07/18/20 05:59 07/14/20 05:51 Vancomycin HCl (Vanco pharmacy to dose) 1 ea DAILY PRN MISC Per rx protocol 07/03/20 20:30 08/02/20 20:29 Allergies: Coded Allergies: No Known Allergies (Unverified , 04/30/12) ROS Limited/Unobtainable: Yes Subjective 79 YO M admitted with shortness of breath. Now pneumonia; previously COVID positive. Cover for Int laina-Dr Hodges. On 100% non-rebreather mask. Low grade fever to 100.2 F Objective Last Vital Signs Date Time Temp Pulse Resp B/P (MAP) Pulse Ox O2 Delivery O2 Flow Rate FiO2 07/14/20 16:00 15.0 100 07/14/20 12:00 69 07/14/20 11:48 99.3 20 99/58 (72) 100 07/14/20 09:00 Non-Rebreather Laboratory Tests Test 07/13/20 18:09 07/13/20 23:16 07/14/20 05:18 07/14/20 08:20 POC Whole Blood Glucose Pending Pending 140 MG/DL (74-106) H White Blood Count 15.7 K/UL (4.8-10.8) H Red Blood Count 3.35 M/UL (4.70-6.10) L Hemoglobin 10.1 G/DL (14.2-18.0) L Hematocrit 32.6 % (42.0-52.0) L Mean Corpuscular Volume 97 FL (80-99) Mean Corpuscular Hemoglobin 30.1 PG (27.0-31.0) Mean Corpuscular Hemoglobin Concent 30.9 G/DL (32.0-36.0) L Red Cell Distribution Width 14.4 % (11.6-14.8) Platelet Count 297 K/UL (150-450) Mean Platelet Volume 9.7 FL (6.5-10.1) Neutrophils (%) (Auto) 83.9 % (45.0-75.0) H Lymphocytes (%) (Auto) 8.2 % (20.0-45.0) L Monocytes (%) (Auto) 6.0 % (1.0-10.0) Eosinophils (%) (Auto) 0.9 % (0.0-3.0) Basophils (%) (Auto) 0.9 % (0.0-2.0) Erythrocyte Sedimentation Rate 116 MM/HR (0-20) H Sodium Level 145 MMOL/L (136-145) Potassium Level 4.4 MMOL/L (3.5-5.1) Chloride Level 109 MMOL/L (98-107) H Carbon Dioxide Level 32 MMOL/L (21-32) Anion Gap 4 mmol/L (5-15) L Blood Urea Nitrogen 21 mg/dL (7-18) H Creatinine 1.1 MG/DL (0.55-1.30) Estimat Glomerular Filtration Rate > 60 mL/min (>60) Glucose Level 116 MG/DL (74-106) H Lactic Acid Level 1.30 mmol/L (0.4-2.0) Calcium Level 8.7 MG/DL (8.5-10.1) Phosphorus Level 3.4 MG/DL (2.5-4.9) Magnesium Level 2.5 MG/DL (1.8-2.4) H Total Bilirubin 0.4 MG/DL (0.2-1.0) Aspartate Amino Transf (AST/SGOT) 42 U/L (15-37) H Alanine Aminotransferase (ALT/SGPT) 36 U/L (12-78) Alkaline Phosphatase 331 U/L (46-116) H C-Reactive Protein, Quantitative 14.9 mg/dL (0.00-0.90) H Total Protein 7.0 G/DL (6.4-8.2) Albumin 1.3 G/DL (3.4-5.0) L Globulin 5.7 g/dL Albumin/Globulin Ratio 0.2 (1.0-2.7) L Test 07/14/20 08:29 07/14/20 11:46 07/14/20 17:08 Arterial Blood pH 7.439 (7.350-7.450) Arterial Blood Partial Pressure CO2 48.9 mmHg (35.0-45.0) H Arterial Blood Partial Pressure O2 157.6 mmHg (75.0-100.0) H Arterial Blood HCO3 32.4 mmol/L (22.0-26.0) H Arterial Blood Oxygen Saturation 98.8 % (95-100) Arterial Blood Base Excess 7.2 (-2-2) H Richard Test Positive POC Whole Blood Glucose 141 MG/DL (74-106) H 111 MG/DL (74-106) H Intake and Output 11/2/20 11/3/20 19:00 07:00 Output Total 500 ml 500 ml Balance -500 ml -500 ml Output Urine Total 500 ml 500 ml # Bowel Movements 1 Objective PHYSICAL EXAMINATION: GENERAL: The patient awake with deep stimuli, open his eyes, however, cannot follow commands. The patient is on a Ventimask at this time, chronically ill-appearing. HEAD AND NECK: Pupils are equal and reactive to light. Anicteric. NECK: Supple. No JVD. LUNGS: 100 % non-rebreather mask; wheezing, rhonchi, and decreased air in bases. HEART: S1, S2. Regular rhythm. Distant heart sounds. No murmur or gallop. ABDOMEN: Soft, nondistended, nontender. Positive bowel sounds. EXTREMITIES: No cyanosis, clubbing, or edema. NEUROLOGIC: Very limited secondary to the patient's status, cannot follow commands. Opens his eyes with deep stimuli and moving extremities spontaneously. Assessment/Plan Assessment/Plan ASSESSMENT: 1. Acute hypoxemic respiratory failure, most likely secondary to pneumonia and sepsis. 2. Sepsis secondary to urinary tract infection and pneumonia. 3. pneumonia=MRSA; ESBL E. coli 4. Acute kidney injury on chronic renal insufficiency. 5. Dehydration. 6. History of chronic congestive heart failure. 7. Diabetes type 2. 8. Dyslipidemia. 9. Hypertension. 10. Alzheimer's disease. 11. COVID 19 previous positive PLAN: 1. Telemetry status 2. Dr. Carreno,=Pulmonary Critical Care 3. Dr. Cho = Inf Dis. 4. IV= D5W due to the hypernatremia and dehydration. 5. antibiotics = vancomycin and meropenem 6. Code status is full code. 7. DVT prophylaxis is heparin subcutaneous. Dano Groves MD Jul 14, 2020 17:56
--- NOTE | 2020-07-14 18:00 | NUR ---
NURSE NOTES: Patient noted with ten seconds of Vtach. Patient currently sinus tachycardia HR 105, BP 128/91. Dr. Matt made aware of assessments, Dr. Matt acknowledged and ordered BMP, calcium which is included in BMP, and magnesium labs for tomorrow morning. Orders entered, noted, and carried out. Will endorse accordingly. Charge nurse made aware.
--- NOTE | 2020-07-14 19:24 | NUR ---
NURSE NOTES: Received report from FLORES Dodd. On nonbreather mask, 15lpm, 50% FiO2. IV site on rfa #24g, saline lock. flushed and patent. No IVF running at this time. On NGT on right nares, tube flushed and patent. Feeding running at a prescribed rate, no residual. On bilateral soft restraints. skin assessment done. skin, sensation, and ROM intact. Bed in lowest position, brakes engaged and bed alarm on. Call light placed within reach. Will continue to monitor.
--- NOTE | 2020-07-14 19:25 | NUR ---
NURSE HAND-OFF REPORT: Important Events on Shift: Patient Status: Stable Diet: Glucerna 1.2 60 ml/hr Pending Orders: None Pending Results/Labs:None Pending MD notification: None. Latest Vital Signs: Temperature 99.0 , Pulse 97 , B/P 116 /74 , Respiratory Rate 20 , O2 SAT 96 , Non-Rebreather, O2 Flow Rate 15.0 . Vital Sign Comment: Stable EKG Rhythm: Sinus Rhythm Rhythm change?: N MD Notified?: Y -Left Message for Dr. Hodges, No cardio on the case. MD Response: Latest Gonzalez Fall Score: 70 Fall Risk: High Risk Safety Measures: Call light Within Reach, Bed Alarm Zone 1, Side Rails Side Rails x3, Bed position Low and Locked. Fall Precautions: Yellow Socks Yellow Gown Door Sign Patient Fall Education Report given to FLORES Arias.
[2020-07-14 20:00] VITALS: BP 114/72
[2020-07-15] VITALS: BP 122/84
[2020-07-15] MEDS: NovoLOG Insulin Flexpen SUBQ SCH ×4 (01:37→18:02)
[2020-07-15] MEDS: Meropenem 1 GM in NS 55 ML IVPB SCH ×2 (03:34→17:20)
[2020-07-15 04:00] VITALS: BP 138/74
--- NOTE | 2020-07-15 04:09 | Cardiology Report ---
APPROVED REPORT EKG Measurement Heart [id number] [place] [id number] [id number] <Conclusion> Sinus rhythm motion artifact complexes Anterior infarct, age undetermined Abnormal ECG
--- NOTE | 2020-07-15 04:11 | Cardiology Report ---
APPROVED REPORT EKG Measurement Heart [id number] [place] [id number] <Conclusion> Sinus tachycardia with premature supraventricular complexes ST & T wave abnormality, consider lateral ischemia Abnormal ECG
--- NOTE | 2020-07-15 04:13 | Cardiology Report ---
APPROVED REPORT EXAM: Two-dimensional and M-mode echocardiogram with Doppler and color Doppler. INDICATION S.O.B M-Mode DIMENSIONS IVSd1.3 (0.7-1.1cm) LVDd4.3 (3.5-5.6cm) PWd1.0 (0.7-1.1cm) IVSs1.7 cm LVDs3.0 (2.5-4.0cm) PWs1.3 cm Other Information Quality : PoorLimited <Conclusion> Technically limited& difficult study due to poor acoustical windows & combative patient,all images obtained from subcostal. Normal left ventricular chamber size, systolic function and wall motion to extent visualized. Left ventricular ejection fraction estimated to be 55%. No evidence of left ventricular hypertrophy. All other cardiac chamber sizes are within normal limits. Calcification of aortic valve with adequate cusp excursion. Thickened mitral valve leaflets with normal excursion. Mitral annulus and aortic root calcification. Pulmonic valve not well visualized. Normal tricuspid valve structure. Subcostal not obtainable. Trace mitral regurgitation. Trace tricuspid regurgitation.
--- NOTE | 2020-07-15 04:16 | Cardiology Report ---
APPROVED REPORT EKG Measurement Heart [id number] [place] 124P20 [id number] <Conclusion> Sinus tachycardia Left anterior fascicular block Nonspecific ST and T wave abnormality Abnormal ECG
[2020-07-15] MEDS: Vancomycin 1.25gm/250ml Premix IVPB SCH (05:15)
--- NOTE | 2020-07-15 07:05 | NUR ---
NURSE NOTES: Received report from FLORES Saunders; pt noted asleep but arousable to voice; noted comfortable in bed; Noted on O2 therapy via NC @ 4L/min; in no acute distress; able to make needs known; call light within reach; bed in low position and locked; encouraged to use call light when needed; side rails up x 3; will continue current plan of care. Addendum: 07/15/20 at 0755 by Mayte Aly RN Wrong patient/medical record
[2020-07-15 07:18] LABS: BASOPHILS % (AUTO) 0.7 % (0.0-2.0); EOSINOPHILS % (AUTO) 1.8 % (0.0-3.0); HEMATOCRIT 33.4 % (42.0-52.0); HEMOGLOBIN 10.2 G/DL (14.2-18.0); LYMPHOCYTES % (AUTO) 16.2 % (20.0-45.0); MEAN CORPUSCULAR VOLUME 99 FL (80-99); MONOCYTES % (AUTO) 6.1 % (1.0-10.0); NEUTROPHILS % (AUTO) 75.2 % (45.0-75.0); PLATELET COUNT 272 K/UL (150-450); RED BLOOD COUNT 3.38 M/UL (4.70-6.10); RED CELL DISTRIBUTION WIDTH 14.7 % (11.6-14.8); WHITE BLOOD COUNT 11.2 K/UL (4.8-10.8)
[2020-07-15 07:28] LABS: CALCIUM 8.3 MG/DL (8.5-10.1); CREATININE 1.2 MG/DL (0.55-1.30); POTASSIUM 4.8 MMOL/L (3.5-5.1)
--- NOTE | 2020-07-15 07:42 | NUR ---
NURSE HAND-OFF REPORT: Important Events on Shift:[Still on nonrebreather mask, 15L] Patient Status: [FC] Diet: [Glucerna 1.2 @60] Pending Orders: [] Pending Results/Labs:[] Pending MD notification:[] Latest Vital Signs: Temperature 100.0 , Pulse 89 , B/P 138 /74 , Respiratory Rate 24 , O2 SAT 100 , Non-Rebreather, O2 Flow Rate 15.0 . Vital Sign Comment: [] EKG Rhythm: Sinus Rhythm Rhythm change?: N MD Notified?: Y -Left Message for Dr. Hodges, No cardio on the case. MD Response: Latest Gonzalez Fall Score: 70 Fall Risk: High Risk Safety Measures: Call light Within Reach, Bed Alarm Zone 1, Side Rails Side Rails x3, Bed position Low and Locked. Fall Precautions: Yellow Socks Yellow Gown Door Sign Patient Fall Education Report given to [FLORES Lora].
--- NOTE | 2020-07-15 07:43 | NUR ---
NURSE NOTES: Received report from FLORES Prado; pt AAOX1; noted comfortable in bed; with congestion on O2 therapy via non-rebreather mask@ 15L/min; no SOB; on bilateral soft wrists restraints for safety; skin intact; Wiley cath draining well to gravity; call light within reach; bed in low position and locked; encouraged to use call light when needed; side rails up x 3; will continue current plan of care.
[2020-07-15 08:00] VITALS: BP 125/73
[2020-07-15] MEDS: Tamsulosin 0.4mg cap ORAL SCH ×2 (09:55→17:20)
[2020-07-15] MEDS: Heparin 5000 units/ml inj SUBQ SCH ×2 (09:56→20:40)
[2020-07-15 10:14] LABS: ALANINE AMINOTRANSFERASE 56 U/L (12-78); ALBUMIN 1.3 G/DL (3.4-5.0); ALKALINE PHOSPHATASE 371 U/L (46-116); ASPARTATE AMINO TRANSFERASE 74 U/L (15-37); BILIRUBIN,DIRECT < 0.1 MG/DL (0.0-0.3); BILIRUBIN,TOTAL 0.4 MG/DL (0.2-1.0)
--- NOTE | 2020-07-15 11:00 | NUR ---
NURSE NOTES: Per RT, pt tolerating venturi mask @ 10L FiO2 50%; in no acute distress at this time. Will continue to monitor.
--- NOTE | 2020-07-15 11:15 | Internal Med Progress Note ---
Subjective Date of Service: Jul 15, 2020 Physician Name Dano Groves Attending Physician Ahsan Hodges MD Current Medications Medications (Trade) Dose Ordered Sig/Ankush Route PRN Reason Start Time Stop Time Status Last Admin Dose Admin Acetaminophen (Tylenol) 650 mg Q4H PRN ORAL Temp >100.5 07/03/20 20:30 08/02/20 20:29 07/13/20 15:52 Dextrose (Dextrose 50%) 50 ml Q30M PRN IV Hypoglycemia 07/03/20 22:45 10/01/20 22:44 Heparin Sodium (Porcine) (Heparin 5000 units/ml) 5,000 units EVERY 12 HOURS SUBQ 07/03/20 21:00 08/17/20 20:59 07/15/20 09:56 Insulin Aspart (NovoLOG) EVERY 6 HOURS SUBQ 07/13/20 06:00 10/02/20 06:29 07/15/20 05:15 Meropenem 1 gm/ Sodium Chloride 55 ml @ 110 mls/hr Q12HR@0400,1600 IVPB 07/13/20 16:00 07/18/20 15:59 07/15/20 03:34 Nitroglycerin (Ntg) 0.4 mg Q5M PRN SL Prn Chest Pain 07/03/20 20:30 08/02/20 20:29 Ondansetron HCl (Zofran) 4 mg Q6H PRN IVP Nausea & Vomiting 07/03/20 20:30 08/02/20 20:29 Polyethylene Glycol (Miralax) 17 gm DAILYPRN PRN ORAL Constipation 07/03/20 20:30 08/02/20 20:29 Promethazine HCl/ Codeine (Phenergan with Codeine) 5 ml Q4H PRN ORAL For Cough 07/03/20 20:30 08/02/20 20:29 Tamsulosin HCl (Flomax) 0.4 mg BID ORAL 07/11/20 19:45 08/03/20 08:59 07/15/20 09:55 Vancomycin HCl 250 ml @ 166.667 mls/hr Q24H IVPB 07/13/20 06:00 07/18/20 05:59 07/15/20 05:15 Vancomycin HCl (Vanco pharmacy to dose) 1 ea DAILY PRN MISC Per rx protocol 07/03/20 20:30 08/02/20 20:29 Allergies: Coded Allergies: No Known Allergies (Unverified , 04/30/12) ROS Limited/Unobtainable: Yes Subjective 79 YO M admitted with shortness of breath. Now pneumonia; previously COVID positive. Cover for Int med-Dr Hodges. On 100% non-rebreather mask. Low grade fever to 100.0 F Objective Last Vital Signs Date Time Temp Pulse Resp B/P (MAP) Pulse Ox O2 Delivery O2 Flow Rate FiO2 07/15/20 08:00 98.1 95 19 125/73 (90) 100 07/15/20 04:00 15.0 100 07/14/20 21:00 Non-Rebreather Laboratory Tests Test 07/14/20 11:46 07/14/20 17:08 07/15/20 01:26 07/15/20 05:11 POC Whole Blood Glucose 141 MG/DL (74-106) H 111 MG/DL (74-106) H 141 MG/DL (74-106) H 143 MG/DL (74-106) H Test 07/15/20 06:42 White Blood Count 11.2 K/UL (4.8-10.8) H Red Blood Count 3.38 M/UL (4.70-6.10) L Hemoglobin 10.2 G/DL (14.2-18.0) L Hematocrit 33.4 % (42.0-52.0) L Mean Corpuscular Volume 99 FL (80-99) Mean Corpuscular Hemoglobin 30.2 PG (27.0-31.0) Mean Corpuscular Hemoglobin Concent 30.5 G/DL (32.0-36.0) L Red Cell Distribution Width 14.7 % (11.6-14.8) Platelet Count 272 K/UL (150-450) Mean Platelet Volume 9.8 FL (6.5-10.1) Neutrophils (%) (Auto) 75.2 % (45.0-75.0) H Lymphocytes (%) (Auto) 16.2 % (20.0-45.0) L Monocytes (%) (Auto) 6.1 % (1.0-10.0) Eosinophils (%) (Auto) 1.8 % (0.0-3.0) Basophils (%) (Auto) 0.7 % (0.0-2.0) Sodium Level 146 MMOL/L (136-145) H Potassium Level 4.8 MMOL/L (3.5-5.1) Chloride Level 108 MMOL/L (98-107) H Carbon Dioxide Level 29 MMOL/L (21-32) Anion Gap 9 mmol/L (5-15) Blood Urea Nitrogen 22 mg/dL (7-18) H Creatinine 1.2 MG/DL (0.55-1.30) Estimat Glomerular Filtration Rate 58.7 mL/min (>60) Glucose Level 120 MG/DL (74-106) H Calcium Level 8.3 MG/DL (8.5-10.1) L Phosphorus Level 4.3 MG/DL (2.5-4.9) Magnesium Level 2.6 MG/DL (1.8-2.4) H Total Bilirubin 0.4 MG/DL (0.2-1.0) Direct Bilirubin < 0.1 MG/DL (0.0-0.3) Aspartate Amino Transf (AST/SGOT) 74 U/L (15-37) H Alanine Aminotransferase (ALT/SGPT) 56 U/L (12-78) Alkaline Phosphatase 371 U/L (46-116) H Total Protein 6.3 G/DL (6.4-8.2) L Albumin 1.3 G/DL (3.4-5.0) L Intake and Output 07/14/20 07/15/20 19:00 07:00 Intake Total 60 ml Output Total 700 ml 200 ml Balance -700 ml -140 ml Tube Feeding 60 ml Output Urine Total 700 ml 200 ml # Bowel Movements 1 Objective PHYSICAL EXAMINATION: GENERAL: The patient awake with deep stimuli, open his eyes, however, cannot follow commands. The patient is on a Ventimask at this time, chronically ill-appearing. HEAD AND NECK: Pupils are equal and reactive to light. Anicteric. NECK: Supple. No JVD. LUNGS: 100 % non-rebreather mask; wheezing, rhonchi, and decreased air in bases. HEART: S1, S2. Regular rhythm. Distant heart sounds. No murmur or gallop. ABDOMEN: Soft, nondistended, nontender. Positive bowel sounds. EXTREMITIES: No cyanosis, clubbing, or edema. NEUROLOGIC: Very limited secondary to the patient's status, cannot follow commands. Opens his eyes with deep stimuli and moving extremities spontaneously. Assessment/Plan Assessment/Plan ASSESSMENT: 1. Acute hypoxemic respiratory failure, most likely secondary to pneumonia and sepsis. 2. Sepsis secondary to urinary tract infection and pneumonia. 3. pneumonia=MRSA; ESBL E. coli 4. Acute kidney injury on chronic renal insufficiency. 5. Dehydration. 6. History of chronic congestive heart failure. 7. Diabetes type 2. 8. Dyslipidemia. 9. Hypertension. 10. Alzheimer's disease. 11. COVID 19 previous positive PLAN: 1. Telemetry status 2. Dr. Carreno,=Pulmonary Critical Care 3. Dr. Cho = Inf Dis. 4. IV= D5W due to the hypernatremia and dehydration. 5. antibiotics = vancomycin and meropenem 6. Code status is full code. 7. DVT prophylaxis is heparin subcutaneous. Dano Groves MD Jul 15, 2020 11:15
--- NOTE | 2020-07-15 11:42 | Infectious Diseases Prog Note ---
Assessment/Plan 79yo M with: Fever,r ecurrent Leukocytosis ;recurrent ; increased; now improving Acute hypoxic resp failure, on NRB mask> 4l NC; back on NRB, desaturation 07/09 Pneumonia- >HAP hx of COVID19 PNA 05/20/2007/10 Sp cx MRSA (Vancomycin APOLONIA 1), ESBL E.coli 07/03 BCx NTD UA 15- WBC, UCx Neg 07/03 COVID rapid neg; 07/06 rapid COVID PCR + (from prior infection)- not new infection Flu A/B neg CXR: L pna Resp cx MRSA Denis on CKD, improving SNF resident ([facility]) Non-verbal VRE and MRSA colonized Plan: Cont vanco #13/14 for MRSA PNA Meropenem #3/7 for ESBL PNA -11 SP Zosyn #4 -07/06 SP Cefepime #4 -07/04 SP Flagyl # Monitor CBC/CMP Monitor resp status Monitor temp curve and hemodynamics off COVID isolation- positive covid test represents residual virus from infection on 05/2020 f/u bcx x2, ua. w. reflex D/w RN Thank you for this consult. [facility] will continue to follow. Subjective Allergies: Coded Allergies: No Known Allergies (Unverified , 04/30/12) Tm 100 remains on NRB wbc improving Objective Last 24 Hour Vital Signs Date Time Temp Pulse Resp B/P (MAP) Pulse Ox O2 Delivery O2 Flow Rate FiO2 07/15/20 08:00 98.1 95 19 125/73 (90) 100 07/15/20 04:00 85 07/15/20 04:00 100.0 89 24 138/74 (95) 100 07/15/20 04:00 15.0 100 07/15/20 00:00 15.0 100 07/15/20 00:00 96 07/15/20 00:00 99.7 93 24 122/84 (97) 100 07/14/20 21:00 Non-Rebreather 15.0 07/14/20 20:00 88 07/14/20 20:00 15.0 100 07/14/20 20:00 97.8 84 22 114/72 (86) 100 07/14/20 19:20 99 Non-Rebreather 15.0 100 07/14/20 16:00 15.0 100 07/14/20 16:00 99.0 87 20 116/74 (88) 96 07/14/20 16:00 97 07/14/20 12:00 10.0 50 07/14/20 12:00 69 07/14/20 11:48 99.3 81 20 99/58 (72) 100 Height (Feet): 5 Height (Inches): 4.00 Weight (Pounds): 130 Gen: NAD CV: RRR Pulm: Rhonchi anteriorly, lots of oral secretions Abd: Soft, NTND Ext: No c/c/e Neuro: Awake Laboratory Tests Test 07/14/20 11:46 07/14/20 17:08 07/15/20 01:26 07/15/20 05:11 POC Whole Blood Glucose 141 MG/DL (74-106) H 111 MG/DL (74-106) H 141 MG/DL (74-106) H 143 MG/DL (74-106) H Test 07/15/20 06:42 White Blood Count 11.2 K/UL (4.8-10.8) H Red Blood Count 3.38 M/UL (4.70-6.10) L Hemoglobin 10.2 G/DL (14.2-18.0) L Hematocrit 33.4 % (42.0-52.0) L Mean Corpuscular Volume 99 FL (80-99) Mean Corpuscular Hemoglobin 30.2 PG (27.0-31.0) Mean Corpuscular Hemoglobin Concent 30.5 G/DL (32.0-36.0) L Red Cell Distribution Width 14.7 % (11.6-14.8) Platelet Count 272 K/UL (150-450) Mean Platelet Volume 9.8 FL (6.5-10.1) Neutrophils (%) (Auto) 75.2 % (45.0-75.0) H Lymphocytes (%) (Auto) 16.2 % (20.0-45.0) L Monocytes (%) (Auto) 6.1 % (1.0-10.0) Eosinophils (%) (Auto) 1.8 % (0.0-3.0) Basophils (%) (Auto) 0.7 % (0.0-2.0) Sodium Level 146 MMOL/L (136-145) H Potassium Level 4.8 MMOL/L (3.5-5.1) Chloride Level 108 MMOL/L (98-107) H Carbon Dioxide Level 29 MMOL/L (21-32) Anion Gap 9 mmol/L (5-15) Blood Urea Nitrogen 22 mg/dL (7-18) H Creatinine 1.2 MG/DL (0.55-1.30) Estimat Glomerular Filtration Rate 58.7 mL/min (>60) Glucose Level 120 MG/DL (74-106) H Calcium Level 8.3 MG/DL (8.5-10.1) L Phosphorus Level 4.3 MG/DL (2.5-4.9) Magnesium Level 2.6 MG/DL (1.8-2.4) H Total Bilirubin 0.4 MG/DL (0.2-1.0) Direct Bilirubin < 0.1 MG/DL (0.0-0.3) Aspartate Amino Transf (AST/SGOT) 74 U/L (15-37) H Alanine Aminotransferase (ALT/SGPT) 56 U/L (12-78) Alkaline Phosphatase 371 U/L (46-116) H Total Protein 6.3 G/DL (6.4-8.2) L Albumin 1.3 G/DL (3.4-5.0) L Current Medications Medications (Trade) Dose Ordered Sig/Ankush Route PRN Reason Start Time Stop Time Status Last Admin Dose Admin Acetaminophen (Tylenol) 650 mg Q4H PRN ORAL Temp >100.5 07/03/20 20:30 08/02/20 20:29 07/13/20 15:52 Dextrose (Dextrose 50%) 50 ml Q30M PRN IV Hypoglycemia 07/03/20 22:45 10/01/20 22:44 Heparin Sodium (Porcine) (Heparin 5000 units/ml) 5,000 units EVERY 12 HOURS SUBQ 07/03/20 21:00 08/17/20 20:59 07/15/20 09:56 Insulin Aspart (NovoLOG) EVERY 6 HOURS SUBQ 07/13/20 06:00 10/02/20 06:29 07/15/20 05:15 Meropenem 1 gm/ Sodium Chloride 55 ml @ 110 mls/hr Q12HR@0400,1600 IVPB 07/13/20 16:00 07/18/20 15:59 07/15/20 03:34 Nitroglycerin (Ntg) 0.4 mg Q5M PRN SL Prn Chest Pain 07/03/20 20:30 08/02/20 20:29 Ondansetron HCl (Zofran) 4 mg Q6H PRN IVP Nausea & Vomiting 07/03/20 20:30 08/02/20 20:29 Polyethylene Glycol (Miralax) 17 gm DAILYPRN PRN ORAL Constipation 07/03/20 20:30 08/02/20 20:29 Promethazine HCl/ Codeine (Phenergan with Codeine) 5 ml Q4H PRN ORAL For Cough 07/03/20 20:30 08/02/20 20:29 Tamsulosin HCl (Flomax) 0.4 mg BID ORAL 07/11/20 19:45 08/03/20 08:59 07/15/20 09:55 Vancomycin HCl 250 ml @ 166.667 mls/hr Q24H IVPB 07/13/20 06:00 07/18/20 05:59 07/15/20 05:15 Vancomycin HCl (Vanco pharmacy to dose) 1 ea DAILY PRN MISC Per rx protocol 07/03/20 20:30 08/02/20 20:29 Ashley Cho M.D. Jul 15, 2020 11:42
[2020-07-15 12:00] VITALS: BP 119/76
--- NOTE | 2020-07-15 14:30 | NUR ---
NURSE NOTES: RT changed Non-rebreather mask to venturi mask @ 14L, FIO2 55%. Patient tolerating well. No acute distress noted. sating 98%. will continue to monitor.
--- NOTE | 2020-07-15 14:30 | NUR ---
NURSE NOTES: RT changed Non-rebreather mask to venturi mask @ 14l, Fio
--- NOTE | 2020-07-15 15:45 | Cardiac Electrophysiology PN ---
Assessment/Plan Assessment/Plan 1. Accelerated junctional rhythm. Not bradycardic. Ruled out for NE Echo showed ejection fraction of 55%. 2. Sepsis, on broad-spectrum IV antibiotic. 3. Respiratory failure, on antibiotic and NRB FM 15 liters 4. Dehydration. 5. Acute renal failure. 6. Electrolyte imbalance. 7. History of CHF, but echocardiogram showed normal left ventricular systolic function. 8. History of previous COVID infection in May 2020 and Active Covid now in isolation 9. Dementia. DW RN Júnior eval pending Subjective Subjective In SR in NAD in Covid isolation.No events on Abx. On 15 liter NRB. [place] eval pending Objective Last 24 Hour Vital Signs Date Time Temp Pulse Resp B/P (MAP) Pulse Ox O2 Delivery O2 Flow Rate FiO2 07/15/20 12:00 86 07/15/20 12:00 15.0 100 07/15/20 12:00 97.1 96 20 119/76 (90) 99 07/15/20 09:00 Non-Rebreather 15.0 07/15/20 08:00 84 07/15/20 08:00 98.1 95 19 125/73 (90) 100 07/15/20 08:00 15.0 100 07/15/20 07:00 99 Non-Rebreather 15.0 100 07/15/20 04:00 85 07/15/20 04:00 100.0 89 24 138/74 (95) 100 07/15/20 04:00 15.0 100 07/15/20 00:00 15.0 100 07/15/20 00:00 96 07/15/20 00:00 99.7 93 24 122/84 (97) 100 07/14/20 21:00 Non-Rebreather 15.0 07/14/20 20:00 88 07/14/20 20:00 15.0 100 07/14/20 20:00 97.8 84 22 114/72 (86) 100 07/14/20 19:20 99 Non-Rebreather 15.0 100 07/14/20 16:00 15.0 100 07/14/20 16:00 99.0 87 20 116/74 (88) 96 07/14/20 16:00 97 Intake and Output 07/14/20 07/15/20 19:00 07:00 Intake Total 60 ml Output Total 700 ml 200 ml Balance -700 ml -140 ml Tube Feeding 60 ml Output Urine Total 700 ml 200 ml # Bowel Movements 1 Laboratory Tests Test 07/14/20 17:08 07/15/20 01:26 07/15/20 05:11 07/15/20 06:42 POC Whole Blood Glucose 111 MG/DL (74-106) H 141 MG/DL (74-106) H 143 MG/DL (74-106) H White Blood Count 11.2 K/UL (4.8-10.8) H Red Blood Count 3.38 M/UL (4.70-6.10) L Hemoglobin 10.2 G/DL (14.2-18.0) L Hematocrit 33.4 % (42.0-52.0) L Mean Corpuscular Volume 99 FL (80-99) Mean Corpuscular Hemoglobin 30.2 PG (27.0-31.0) Mean Corpuscular Hemoglobin Concent 30.5 G/DL (32.0-36.0) L Red Cell Distribution Width 14.7 % (11.6-14.8) Platelet Count 272 K/UL (150-450) Mean Platelet Volume 9.8 FL (6.5-10.1) Neutrophils (%) (Auto) 75.2 % (45.0-75.0) H Lymphocytes (%) (Auto) 16.2 % (20.0-45.0) L Monocytes (%) (Auto) 6.1 % (1.0-10.0) Eosinophils (%) (Auto) 1.8 % (0.0-3.0) Basophils (%) (Auto) 0.7 % (0.0-2.0) Sodium Level 146 MMOL/L (136-145) H Potassium Level 4.8 MMOL/L (3.5-5.1) Chloride Level 108 MMOL/L (98-107) H Carbon Dioxide Level 29 MMOL/L (21-32) Anion Gap 9 mmol/L (5-15) Blood Urea Nitrogen 22 mg/dL (7-18) H Creatinine 1.2 MG/DL (0.55-1.30) Estimat Glomerular Filtration Rate 58.7 mL/min (>60) Glucose Level 120 MG/DL (74-106) H Calcium Level 8.3 MG/DL (8.5-10.1) L Phosphorus Level 4.3 MG/DL (2.5-4.9) Magnesium Level 2.6 MG/DL (1.8-2.4) H Total Bilirubin 0.4 MG/DL (0.2-1.0) Direct Bilirubin < 0.1 MG/DL (0.0-0.3) Aspartate Amino Transf (AST/SGOT) 74 U/L (15-37) H Alanine Aminotransferase (ALT/SGPT) 56 U/L (12-78) Alkaline Phosphatase 371 U/L (46-116) H Total Protein 6.3 G/DL (6.4-8.2) L Albumin 1.3 G/DL (3.4-5.0) L Test 07/15/20 12:06 07/15/20 12:13 Arterial Blood pH 7.446 (7.350-7.450) Arterial Blood Partial Pressure CO2 49.0 mmHg (35.0-45.0) H Arterial Blood Partial Pressure O2 221.5 mmHg (75.0-100.0) H Arterial Blood HCO3 33.0 mmol/L (22.0-26.0) H Arterial Blood Oxygen Saturation 98.8 % (95-100) Arterial Blood Base Excess 7.9 (-2-2) H Richard Test Positive POC Whole Blood Glucose 175 MG/DL (74-106) H Objective HEAD AND NECK: No JVD. NRB FM LUNGS: Coarse rhonchi. CARDIOVASCULAR: Irregular S1 and S2 with no gallop. ABDOMEN: Soft. EXTREMITIES: No pitting edema. Klever Matt MD Jul 15, 2020 15:45
[2020-07-15 16:00] VITALS: BP 157/74
--- NOTE | 2020-07-15 16:34 | Nephrology Progress Note ---
Assessment/Plan Problem List: (1) Dehydration (2) MELANIE (acute kidney injury) (3) Renal failure (ARF), acute on chronic (4) Hypoxia (5) Acute encephalopathy (6) Electrolyte imbalance Assessment 79-year-old male is admitted with acute hypoxic respiratory failure most likely secondary to pneumonia and sepsis, UTI. Acute on chronic renal failure Dehydration Electrolyte imbalances, hypernatremia Hypoalbuminemia Diabetes type 2 History of congestive heart failure Hypertension Hyperlipemia Alzheimer's Previous COVID-19 infection in May 2020 Plan July 15: On nonrebreather mask. Labs reviewed. Renal parameters stable.Continue per family consumer scientist. Clinically unchanged. July 14: On nonrebreather mask. Inflammatory markers gradually declining. Renal parameters stable. Continue per pulmonary. July 13: Remains on nonrebreather mask. Inflammatory markers remain elevated. Renal parameters somewhat stable. Continue per pulmonary and ID. Remains full code. July 12: Patient on nonrebreather mask. Labs noted. Serum creatinine down to 1.3. Continue per consultants. July 11: Patient on nonrebreather mask. Transfer to telemetry when seen this morning. Labs noted. Continue per consultants. Serum creatinine erin to 1.7. Continue to monitor renal parameters. Continue to monitor vancomycin level July 10: Patient is not doing well clinically. Mild respiratory distress. ABG noted. Somewhat hypoxic. CBC and chemistry panel ordered. Discussed with FLORES Cho. Will defer to pulmonary management to specialist. Continue per ID. Renal parameters remained stable as of July 09. July 09: Labs reviewed. Renal parameters stable. Continue per consultants. July 08: Labs reviewed. Potassium via NG tube ordered. IV fluids stopped. Continue per consultants. July 07: Labs reviewed. Low potassium and low phosphorus replaced. Continue per consultants. Remains stable from renal standpoint of view. July 06: Patient remains n.p.o. IV fluid down to 50 cc an hour. Potassium supplement intravenously ordered. Continue per consultants. Previously: Patient is n.p.o., will continue on IV fluid of D5W 75 cc an hour We will monitor electrolytes and renal parameters Avoid nephrotoxic's Start p.o. when he clears by speech therapist, meanwhile aspiration precautions Keep the blood pressure and blood sugar in check Per orders Subjective ROS Limited/Unobtainable: Yes Objective Objective Last 24 Hour Vital Signs Date Time Temp Pulse Resp B/P (MAP) Pulse Ox O2 Delivery O2 Flow Rate FiO2 11/4/20 16:00 97.3 86 21 157/74 (101) 97 07/15/20 16:00 Venturi Mask 14.0 07/15/20 16:00 14.0 55 07/15/20 12:00 86 07/15/20 12:00 15.0 100 07/15/20 12:00 97.1 96 20 119/76 (90) 99 07/15/20 09:00 Non-Rebreather 15.0 07/15/20 08:00 84 07/15/20 08:00 98.1 95 19 125/73 (90) 100 07/15/20 08:00 15.0 100 07/15/20 07:00 99 Non-Rebreather 15.0 100 07/15/20 04:00 85 07/15/20 04:00 100.0 89 24 138/74 (95) 100 07/15/20 04:00 15.0 100 07/15/20 00:00 15.0 100 07/15/20 00:00 96 07/15/20 00:00 99.7 93 24 122/84 (97) 100 07/14/20 21:00 Non-Rebreather 15.0 07/14/20 20:00 88 07/14/20 20:00 15.0 100 07/14/20 20:00 97.8 84 22 114/72 (86) 100 07/14/20 19:20 99 Non-Rebreather 15.0 100 Intake and Output 0 07/14/20 07/15/20 19:00 07:00 Intake Total 60 ml Output Total 700 ml 200 ml Balance -700 ml -140 ml Tube Feeding 60 ml Output Urine Total 700 ml 200 ml # Bowel Movements 1 Current Medications Medications (Trade) Dose Ordered Sig/Ankush Route PRN Reason Start Time Stop Time Status Last Admin Dose Admin Acetaminophen (Tylenol) 650 mg Q4H PRN ORAL Temp >100.5 07/03/20 20:30 08/02/20 20:29 07/13/20 15:52 Dextrose (Dextrose 50%) 50 ml Q30M PRN IV Hypoglycemia 07/03/20 22:45 10/01/20 22:44 Heparin Sodium (Porcine) (Heparin 5000 units/ml) 5,000 units EVERY 12 HOURS SUBQ 07/03/20 21:00 08/17/20 20:59 07/15/20 09:56 Insulin Aspart (NovoLOG) EVERY 6 HOURS SUBQ 07/13/20 06:00 10/02/20 06:29 07/15/20 12:00 Meropenem 1 gm/ Sodium Chloride 55 ml @ 110 mls/hr Q12HR@0400,1600 IVPB 07/13/20 16:00 07/18/20 15:59 07/15/20 03:34 Nitroglycerin (Ntg) 0.4 mg Q5M PRN SL Prn Chest Pain 07/03/20 20:30 08/02/20 20:29 Ondansetron HCl (Zofran) 4 mg Q6H PRN IVP Nausea & Vomiting 07/03/20 20:30 08/02/20 20:29 Polyethylene Glycol (Miralax) 17 gm DAILYPRN PRN ORAL Constipation 07/03/20 20:30 08/02/20 20:29 Promethazine HCl/ Codeine (Phenergan with Codeine) 5 ml Q4H PRN ORAL For Cough 07/03/20 20:30 08/02/20 20:29 Tamsulosin HCl (Flomax) 0.4 mg BID ORAL 07/11/20 19:45 08/03/20 08:59 07/15/20 09:55 Vancomycin HCl 250 ml @ 166.667 mls/hr Q24H IVPB 07/13/20 06:00 07/18/20 05:59 07/15/20 05:15 Vancomycin HCl ([facility] pharmacy to dose) 1 ea DAILY PRN MISC Per rx protocol 07/03/20 20:30 08/02/20 20:29 Laboratory Tests 07/14/20 17:08: POC Whole Blood Glucose 111H 07/15/20 01:26: POC Whole Blood Glucose 141H 07/15/20 05:11: POC Whole Blood Glucose 143H 07/15/20 06:42: White Blood Count 11.2H, Red Blood Count 3.38L, Hemoglobin 10.2L, Hematocrit 33.4L, Mean Corpuscular Volume 99, Mean Corpuscular Hemoglobin 30.2, Mean Corpuscular Hemoglobin Concent 30.5L, Red Cell Distribution Width 14.7, Platelet Count 272, Mean Platelet Volume 9.8, Neutrophils (%) (Auto) 75.2H, Lymphocytes (%) (Auto) 16.2L, Monocytes (%) (Auto) 6.1, Eosinophils (%) (Auto) 1.8, Baso phils (%) (Auto) 0.7, Sodium Level 146H, Potassium Level 4.8, Chloride Level 108H, Carbon Dioxide Level 29, Anion Gap 9, Blood Urea Nitrogen 22H, Creatinine 1.2, Estimat Glomerular Filtration Rate 58.7, Glucose Level 120H, Calcium Level 8.3L, Phosphorus Level 4.3, Magnesium Level 2.6H, Total Bilirubin 0.4, Direct Bilirubin < 0.1, Aspartate Amino Transf (AST/SGOT) 74H, Alanine Aminotransferase (ALT/SGPT) 56, Alkaline Phosphatase 371H, Total Protein 6.3L, Albumin 1.3L 07/15/20 12:06: Arterial Blood pH 7.446, Arterial Blood Partial Pressure CO2 49.0H, Arterial Blood Partial Pressure O2 221.5H, Arterial Blood HCO3 33.0H, Arterial Blood Oxygen Saturation 98.8, Arterial Blood Base Excess 7.9H, Richard Test Positive 07/15/20 12:13: POC Whole Blood Glucose 175H Height (Feet): 5 Height (Inches): 4.00 Weight (Pounds): 130 General Appearance: moderate distress Cardiovascular: tachycardia Respiratory/Chest: decreased breath sounds, rhonchi - bilaterally Abdomen: distended Tino Connors MD Jul 15, 2020 16:34
--- NOTE | 2020-07-15 18:56 | NUR ---
NURSE NOTES: Pt remains stable; in no acute distress; remains on venturi mask 14L with FIO2 55%; with congestion and suctioned by RT PRN; normal sinus rhythm but with episode of sinus tachycardia (RM=547); remains with bilateral soft wrist restraints for safety; intact skin; f/c intact and patent draining clear yellow urine; sacral dressing c/d/i; NGT intact and in place; no residual noted; tolerating current enteral feeding; bed locked and in lowest position; call light within reach. Will continue to monitor.
--- NOTE | 2020-07-15 19:07 | NUR ---
NURSE HAND-OFF REPORT: Important Events on Shift: PT CURRENTLY ON vENTURI MASK 14 L FI02 55% Patient Status: congested Diet: NGT/tube feeding Pending Orders: n/a Pending Results/Labs: morning labs Pending MD notification:n/a Latest Vital Signs: Temperature 97.3 , Pulse 106 , B/P 157 /74 , Respiratory Rate 21 , O2 SAT 98 , Venturi Mask, O2 Flow Rate 15.0 . Vital Sign Comment: stable EKG Rhythm: Sinus Tachycardia Rhythm change?: N MD Notified?: Y -Left Message for Dr. Hodges, No cardio on the case. MD Response: Latest Gonzalez Fall Score: 70 Fall Risk: High Risk Safety Measures: Call light Within Reach, Bed Alarm Zone 1, Side Rails Side Rails x3, Bed position Low and Locked. Fall Precautions: Yellow Socks Yellow Gown Door Sign Patient Fall Education Report given to FLORES Yates.
--- NOTE | 2020-07-15 19:21 | NUR ---
NURSE NOTES: Report received from Geno TANNER. Patient is noted to be positive for Covid 19 and is on droplet and contact isolation. Patient is noted to be awake and alert x 1. Patient opens eyes to name. Patient is noted to be on venturi mask at 14 liters of oxygen with 55 % FiO2. Was endorsed to Milan TANNER to continue to monitor oxygen saturation and to call respiratory therapy if oxygen drops below 90 % as patient does have order of non rebreather at 15 liters. Patient is noted to currently have oxygen saturation of 93 %. Patient is note to have right nare nasogastric tube with Glucerna 1.2 running at 60 cc / hr. This is the goal rate. Patient is note to be in bilateral soft wrist restraints. No order renewal is needed at this time. Patient is noted to have right forearm 24 kiran IV access. Bed is locked, alarmed, and in lowest position. Call light in reach. Will continue to follow plan of care.
--- NOTE | 2020-07-15 19:52 | NUR ---
NURSE NOTES: Respiratory therapy informed Milan TANNER that they switched patient back to non rebreather mask at 15 liters of oxygen due to patient's oxygen saturation of 92 %. Patient is noted to now have an oxygen saturation of 98 % with the non rebreather mask on.
[2020-07-15 20:00] VITALS: BP 131/76
[2020-07-16] VITALS: BP 125/70
[2020-07-16] MEDS: NovoLOG Insulin Flexpen SUBQ SCH ×4 (00:04→17:26)
[2020-07-16] MEDS: Meropenem 1 GM in NS 55 ML IVPB SCH ×2 (03:53→16:23)
[2020-07-16 04:00] VITALS: BP 135/86
[2020-07-16 05:30] LABS: BASOPHILS % (AUTO) 0.8 % (0.0-2.0); EOSINOPHILS % (AUTO) 0.9 % (0.0-3.0); HEMATOCRIT 35.6 % (42.0-52.0); HEMOGLOBIN 10.7 G/DL (14.2-18.0); LYMPHOCYTES % (AUTO) 11.3 % (20.0-45.0); MEAN CORPUSCULAR VOLUME 99 FL (80-99); MONOCYTES % (AUTO) 5.1 % (1.0-10.0); NEUTROPHILS % (AUTO) 81.9 % (45.0-75.0); PLATELET COUNT 340 K/UL (150-450); RED CELL DISTRIBUTION WIDTH 15.1 % (11.6-14.8); WHITE BLOOD COUNT 11.7 K/UL (4.8-10.8)
[2020-07-16] MEDS: Vancomycin 1.25gm/250ml Premix IVPB SCH (05:32)
--- NOTE | 2020-07-16 05:42 | NUR ---
NURSE NOTES: Sponge bath given. Wound care done. new clean dry dressing put in place.
[2020-07-16 05:54] LABS: CALCIUM 9.1 MG/DL (8.5-10.1); CREATININE 1.2 MG/DL (0.55-1.30); POTASSIUM 4.3 MMOL/L (3.5-5.1)
--- NOTE | 2020-07-16 07:20 | NUR ---
NURSE HAND-OFF REPORT: Important Events on Shift: patient required suctioning by respiratory throughout shift. patient was upgraded back to non rebreather by respiratory. patient had no residual and is tolerating feeding well. Patient Status: full code Diet: Glucerna 1.2 @ 60 Pending Orders: none Pending Results/Labs:none Pending MD notification:none Latest Vital Signs: Temperature 99.2 , Pulse 115 , B/P 135 /86 , Respiratory Rate 24 , O2 SAT 98 , Non-Rebreather, O2 Flow Rate 15.0 . Vital Sign Comment: patient tachycardic throughout shift. requires non rebreather EKG Rhythm: Sinus Tachycardia Rhythm change?: N MD Notified?: MD Response: Latest Gonzalez Fall Score: 70 Fall Risk: High Risk Safety Measures: Call light Within Reach, Bed Alarm Zone 1, Side Rails Side Rails x3, Bed position Low and Locked. Fall Precautions: Yellow Socks Yellow Gown Door Sign Patient Fall Education Report given to Tanesha TANNER.
--- NOTE | 2020-07-16 07:20 | NUR ---
NURSE NOTES: Report received from FLORES Yates. Pt is A/O x1 and non verbal. Pt is on venturi mask at 14L with 55% of FiO2 . Patient is noted to currently have oxygen saturation of 93%. Patient is note to have right nare nasogastric tube with Glucerna 1.2 running at 60 cc/hr. This is the goal rate. No residual noteded. Patient is noted to be in bilateral soft wrist restraints. No order renewal is needed at this time. Patient is noted to have RFA 24G IV access. Bed is locked, alarmed, and in lowest position. Call light in reach. Will continue plan of care.
[2020-07-16 08:00] VITALS: BP 137/83
[2020-07-16] MEDS: Tamsulosin 0.4mg cap ORAL SCH ×2 (09:00→17:14)
[2020-07-16] MEDS: Heparin 5000 units/ml inj SUBQ SCH ×2 (09:01→22:20)
--- NOTE | 2020-07-16 11:19 | Nephrology Progress Note ---
Assessment/Plan Problem List: (1) Dehydration (2) MELANIE (acute kidney injury) (3) Renal failure (ARF), acute on chronic (4) Hypoxia (5) Acute encephalopathy (6) Electrolyte imbalance Assessment 79-year-old male is admitted with acute hypoxic respiratory failure most likely secondary to pneumonia and sepsis, UTI. Acute on chronic renal failure Dehydration Electrolyte imbalances, hypernatremia Hypoalbuminemia Diabetes type 2 History of congestive heart failure Hypertension Hyperlipemia Alzheimer's Previous COVID-19 infection in May 2020 Plan July 16: Status quo. Labs reviewed. Renal parameters stable. Continue per consultants. July 15: On nonrebreather mask. Labs reviewed. Renal parameters stable.Continue per digital imaging technician. Clinically unchanged. July 14: On nonrebreather mask. Inflammatory markers gradually declining. Renal parameters stable. Continue per pulmonary. July 13: Remains on nonrebreather mask. Inflammatory markers remain elevated. Renal parameters somewhat stable. Continue per pulmonary and ID. Remains full code. July 12: Patient on nonrebreather mask. Labs noted. Serum creatinine down to 1.3. Continue per consultants. July 11: Patient on nonrebreather mask. Transfer to telemetry when seen this morning. Labs noted. Continue per consultants. Serum creatinine erin to 1.7. Continue to monitor renal parameters. Continue to monitor vancomycin level July 10: Patient is not doing well clinically. Mild respiratory distress. ABG noted. Somewhat hypoxic. CBC and chemistry panel ordered. Discussed with FLORES Cho. Will defer to pulmonary management to specialist. Continue per ID. Renal parameters remained stable as of July 09. July 09: Labs reviewed. Renal parameters stable. Continue per consultants. July 08: Labs reviewed. Potassium via NG tube ordered. IV fluids stopped. Continue per consultants. July 07: Labs reviewed. Low potassium and low phosphorus replaced. Continue per consultants. Remains stable from renal standpoint of view. July 06: Patient remains n.p.o. IV fluid down to 50 cc an hour. Potassium supplement intravenously ordered. Continue per consultants. Previously: Patient is n.p.o., will continue on IV fluid of D5W 75 cc an hour We will monitor electrolytes and renal parameters Avoid nephrotoxic's Start p.o. when he clears by speech therapist, meanwhile aspiration precautions Keep the blood pressure and blood sugar in check Per orders Subjective ROS Limited/Unobtainable: Yes Constitutional: Reports: malaise Objective Objective Last 24 Hour Vital Signs Date Time Temp Pulse Resp B/P (MAP) Pulse Ox O2 Delivery O2 Flow Rate FiO2 07/16/20 08:16 Non-Rebreather 15.0 07/16/20 08:00 113 07/16/20 08:00 15.0 55 07/16/20 08:00 97.8 101 20 137/83 (101) 98 07/16/20 07:55 98 Non-Rebreather 15.0 100 07/16/20 04:00 15.0 55 07/16/20 04:00 99.2 100 24 135/86 (102) 98 07/16/20 04:00 115 07/16/20 00:00 100 07/16/20 00:00 98.1 97 24 125/70 (88) 99 07/15/20 21:00 Non-Rebreather 15.0 07/15/20 20:00 15.0 55 07/15/20 20:00 110 07/15/20 20:00 99.1 101 22 131/76 (94) 99 07/15/20 18:57 98 Non-Rebreather 15.0 100 07/15/20 16:00 97.3 86 21 157/74 (101) 97 07/15/20 16:00 106 07/15/20 16:00 Venturi Mask 14.0 07/15/20 16:00 14.0 55 07/15/20 12:00 86 07/15/20 12:00 15.0 100 07/15/20 12:00 97.1 96 20 119/76 (90) 99 Intake and Output 07/15/20 07/16/20 19:00 07:00 Intake Total 300 ml 775 ml Output Total 780 ml 750 ml Balance -480 ml 25 ml Free Water 180 ml 120 ml IV Total 55 ml Tube Feeding 120 ml 600 ml Output Urine Total 780 ml 750 ml # Bowel Movements 1 Current Medications Medications (Trade) Dose Ordered Sig/Ankush Route PRN Reason Start Time Stop Time Status Last Admin Dose Admin Acetaminophen (Tylenol) 650 mg Q4H PRN ORAL Temp >100.5 07/03/20 20:30 08/02/20 20:29 07/13/20 15:52 Dextrose (Dextrose 50%) 50 ml Q30M PRN IV Hypoglycemia 07/03/20 22:45 10/01/20 22:44 Heparin Sodium (Porcine) (Heparin 5000 units/ml) 5,000 units EVERY 12 HOURS SUBQ 07/03/20 21:00 08/17/20 20:59 07/16/20 09:01 Insulin Aspart (NovoLOG) EVERY 6 HOURS SUBQ 07/13/20 06:00 10/02/20 06:29 07/16/20 05:33 Meropenem 1 gm/ Sodium Chloride 55 ml @ 110 mls/hr Q12HR@0400,1600 IVPB 07/13/20 16:00 07/18/20 15:59 07/16/20 03:53 Nitroglycerin (Ntg) 0.4 mg Q5M PRN SL Prn Chest Pain 07/03/20 20:30 08/02/20 20:29 Ondansetron HCl (Zofran) 4 mg Q6H PRN IVP Nausea & Vomiting 07/03/20 20:30 08/02/20 20:29 Polyethylene Glycol (Miralax) 17 gm DAILYPRN PRN ORAL Constipation 07/03/20 20:30 08/02/20 20:29 Promethazine HCl/ Codeine (Phenergan with Codeine) 5 ml Q4H PRN ORAL For Cough 07/03/20 20:30 08/02/20 20:29 Tamsulosin HCl (Flomax) 0.4 mg BID ORAL 07/11/20 19:45 08/03/20 08:59 07/16/20 09:00 Vancomycin HCl 250 ml @ 166.667 mls/hr Q24H IVPB 07/13/20 06:00 07/18/20 05:59 07/16/20 05:32 Vancomycin HCl (Vanco pharmacy to dose) 1 ea DAILY PRN MISC Per rx protocol 07/03/20 20:30 08/02/20 20:29 Laboratory Tests 07/15/20 12:06: Arterial Blood pH 7.446, Arterial Blood Partial Pressure CO2 49.0H, Arterial Blood Partial Pressure O2 221.5H, Arterial Blood HCO3 33.0H, Arterial Blood Oxygen Saturation 98.8, Arterial Blood Base Excess 7.9H, Richard Test Positive 07/15/20 12:13: POC Whole Blood Glucose 175H 07/15/20 17:27: POC Whole Blood Glucose [Pending] 07/15/20 23:59: POC Whole Blood Glucose 150H 07/16/20 05:03: White Blood Count 11.7H, Red Blood Count 3.60L, Hemoglobin 10.7L, Hematocrit 35.6L, Mean Corpuscular Volume 99, Mean Corpuscular Hemoglobin 29.6, Mean Corpuscular Hemoglobin Concent 30.0L, Red Cell Distribution Width 15.1H, Platelet Count 340, Mean Platelet Volume 9.1, Neutrophils (%) (Auto) 81.9H, Lymphocytes (%) (Auto) 11.3L, Monocytes (%) (Auto) 5.1, Eosinophils (%) (Auto) 0.9, Basophils (%) (Auto) 0.8, Sodium Level 145, Potassium Level 4.3, Chloride Level 106, Carbon Dioxide Level 35H, Anion Gap 5, Blood Urea Nitrogen 22H, Creatinine 1.2, Estimat Glomerular Filtration Rate 58.7, Glucose Level 175H, Calcium Level 9.1, Vancomycin Level Trough 15.1H 07/16/20 05:27: POC Whole Blood Glucose 174H Height (Feet): 5 Height (Inches): 4.00 Weight (Pounds): 130 General Appearance: mild distress Cardiovascular: tachycardia Respiratory/Chest: decreased breath sounds Abdomen: distended Tino Connors MD Jul 16, 2020 11:19
[2020-07-16 12:00] VITALS: BP 137/83
--- NOTE | 2020-07-16 12:21 | NUR ---
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
[2020-07-16] MEDS ORDERED: MEROPENEM1 GM IV ×2 (12:51→12:55)
[2020-07-16] MEDS ORDERED: HEPARIN SO5000 UNIT2 SUBQ (12:55)
[2020-07-16] MEDS ORDERED: VANCOMYCIN1.5 GM/300 IV ×2 (13:00→13:01)
[2020-07-16] MEDS ORDERED: PROMETH-CODEIN 65 ML PO (13:03)
--- NOTE | 2020-07-16 13:06 | Pulmonology Progress Note ---
Subjective ROS Limited/Unobtainable: Yes Interval Events: unchagned, late note for 07/15 Allergies: Coded Allergies: No Known Allergies (Unverified , 04/30/12) Objective Last 24 Hour Vital Signs Date Time Temp Pulse Resp B/P (MAP) Pulse Ox O2 Delivery O2 Flow Rate FiO2 07/16/20 12:00 15.0 55 07/16/20 12:00 97.8 101 20 137/83 (101) 98 07/16/20 12:00 97 07/16/20 08:16 Non-Rebreather 15.0 07/16/20 08:00 113 07/16/20 08:00 15.0 55 07/16/20 08:00 97.8 101 20 137/83 (101) 98 07/16/20 07:55 98 Non-Rebreather 15.0 100 07/16/20 04:00 15.0 55 07/16/20 04:00 99.2 100 24 135/86 (102) 98 07/16/20 04:00 115 07/16/20 00:00 100 07/16/20 00:00 98.1 97 24 125/70 (88) 99 07/15/20 21:00 Non-Rebreather 15.0 07/15/20 20:00 15.0 55 07/15/20 20:00 110 07/15/20 20:00 99.1 101 22 131/76 (94) 99 07/15/20 18:57 98 Non-Rebreather 15.0 100 07/15/20 16:00 97.3 86 21 157/74 (101) 97 07/15/20 16:00 106 07/15/20 16:00 Venturi Mask 14.0 07/15/20 16:00 14.0 55 Intake and Output 07/15/20 07/16/20 19:00 07:00 Intake Total 300 ml 775 ml Output Total 780 ml 750 ml Balance -480 ml 25 ml Free Water 180 ml 120 ml IV Total 55 ml Tube Feeding 120 ml 600 ml Output Urine Total 780 ml 750 ml # Bowel Movements 1 General Appearance: WD/WN, no acute distress HEENT: normocephalic, atraumatic Respiratory: chest wall non-tender, respiratory distress, rhonchi - left, rhonchi - right Cardiovascular: normal rate Abdomen: normal bowel sounds, no organomegaly Genitourinary: normal external genitalia Skin: no rash Laboratory Tests 07/15/20 17:27: POC Whole Blood Glucose [Pending] 07/15/20 23:59: POC Whole Blood Glucose 150H 07/16/20 05:03: White Blood Count 11.7H, Red Blood Count 3.60L, Hemoglobin 10.7L, Hematocrit 35.6L, Mean Corpuscular Volume 99, Mean Corpuscular Hemoglobin 29.6, Mean Corpuscular Hemoglobin Concent 30.0L, Red Cell Distribution Width 15.1H, Platelet Count 340, Mean Platelet Volume 9.1, Neutrophils (%) (Auto) 81.9H, Lymphocytes (%) (Auto) 11.3L, Monocytes (%) (Auto) 5.1, Eosinophils (%) (Auto) 0.9, Basophils (%) (Auto) 0.8, Sodium Level 145, Potassium Level 4.3, Chloride Level 106, Carbon Dioxide Level 35H, Anion Gap 5, Blood Urea Nitrogen 22H, Creatinine 1.2, Estimat Glomerular Filtration Rate 58.7, Glucose Level 175H, Calcium Level 9.1, Vancomycin Level Trough 15.1H 07/16/20 05:27: POC Whole Blood Glucose 174H 07/16/20 12:29: POC Whole Blood Glucose 178H Current Medications Medications (Trade) Dose Ordered Sig/Ankush Route PRN Reason Start Time Stop Time Status Last Admin Dose Admin Acetaminophen (Tylenol) 650 mg Q4H PRN ORAL Temp >100.5 07/03/20 20:30 08/02/20 20:29 07/13/20 15:52 Dextrose (Dextrose 50%) 50 ml Q30M PRN IV Hypoglycemia 07/03/20 22:45 10/01/20 22:44 Heparin Sodium (Porcine) (Heparin 5000 units/ml) 5,000 units EVERY 12 HOURS SUBQ 07/03/20 21:00 08/17/20 20:59 07/16/20 09:01 Insulin Aspart (NovoLOG) EVERY 6 HOURS SUBQ 07/13/20 06:00 10/02/20 06:29 07/16/20 12:37 Meropenem 1 gm/ Sodium Chloride 55 ml @ 110 mls/hr Q12HR@0400,1600 IVPB 07/13/20 16:00 07/18/20 15:59 07/16/20 03:53 Nitroglycerin (Ntg) 0.4 mg Q5M PRN SL Prn Chest Pain 07/03/20 20:30 08/02/20 20:29 Ondansetron HCl (Zofran) 4 mg Q6H PRN IVP Nausea & Vomiting 07/03/20 20:30 08/02/20 20:29 Polyethylene Glycol (Miralax) 17 gm DAILYPRN PRN ORAL Constipation 07/03/20 20:30 08/02/20 20:29 Promethazine HCl/ Codeine (Phenergan with Codeine) 5 ml Q4H PRN ORAL For Cough 07/03/20 20:30 08/02/20 20:29 Tamsulosin HCl (Flomax) 0.4 mg BID ORAL 07/11/20 19:45 08/03/20 08:59 07/16/20 09:00 Vancomycin HCl 250 ml @ 166.667 mls/hr Q24H IVPB 07/13/20 06:00 07/18/20 05:59 07/16/20 05:32 Vancomycin HCl (Vanco pharmacy to dose) 1 ea DAILY PRN MISC Per rx protocol 07/03/20 20:30 08/02/20 20:29 Assessment/Plan Problems: (1) 2019 novel coronavirus disease (COVID-19) (2) Severe sepsis (3) Acute encephalopathy (4) HTN (hypertension) (5) Aphasia (6) Alzheimer's dementia (7) History of CVA (cerebrovascular accident) (8) BPH (benign prostatic hyperplasia) Assessment/Plan all reviewed wbc still high, repeat cxr showing increasing infiltrate CRP rising titrate fio2 to sat of 92% frequent suctioning continue abx check electrolytes tolerating feeding aspiration precaution dvt prophylaxis. Kya Carreno MD Jul 16, 2020 13:06
--- NOTE | 2020-07-16 13:55 | Infectious Diseases Prog Note ---
Assessment/Plan 79yo M with: Fever,r ecurrent; improving Leukocytosis ;recurrent ; increased; now improving Acute hypoxic resp failure, on NRB mask> 4l NC; back on NRB, desaturation 07/09 Pneumonia- >HAP hx of COVID19 PNA 05/20/2007/10 Sp cx MRSA (Vancomycin APOLONIA 1), ESBL E.coli 07/03 BCx NTD UA 15- WBC, UCx Neg 07/03 COVID rapid neg; 07/06 rapid COVID PCR + (from prior infection)- not new infection Flu A/B neg CXR: L pna Resp cx MRSA Denis on CKD, improving SNF resident ([facility]) Non-verbal VRE and MRSA colonized Plan: Cont vanco #14/14 for MRSA PNA Meropenem #/ for ESBL PNA -11 SP Zosyn #4 -07/06 SP Cefepime #4 -07/04 SP Flagyl # Monitor CBC/CMP Monitor resp status Monitor temp curve and hemodynamics off COVID isolation- positive covid test represents residual virus from infection on 05/2020 f/u bcx x2, ua. w. reflex D/w RN Thank you for this consult. [facility] will continue to follow. Subjective Allergies: Coded Allergies: No Known Allergies (Unverified , 04/30/12) afebrile >24hrs remains on NRB wbc improved Objective Last 24 Hour Vital Signs Date Time Temp Pulse Resp B/P (MAP) Pulse Ox O2 Delivery O2 Flow Rate FiO2 07/16/20 12:00 15.0 55 07/16/20 12:00 97.8 101 20 137/83 (101) 98 07/16/20 12:00 97 07/16/20 08:16 Non-Rebreather 15.0 07/16/20 08:00 113 07/16/20 08:00 15.0 55 07/16/20 08:00 97.8 101 20 137/83 (101) 98 07/16/20 07:55 98 Non-Rebreather 15.0 100 07/16/20 04:00 15.0 55 07/16/20 04:00 99.2 100 24 135/86 (102) 98 07/16/20 04:00 115 07/16/20 00:00 100 07/16/20 00:00 98.1 97 24 125/70 (88) 99 07/15/20 21:00 Non-Rebreather 15.0 07/15/20 20:00 15.0 55 07/15/20 20:00 110 07/15/20 20:00 99.1 101 22 131/76 (94) 99 07/15/20 18:57 98 Non-Rebreather 15.0 100 07/15/20 16:00 97.3 86 21 157/74 (101) 97 07/15/20 16:00 106 07/15/20 16:00 Venturi Mask 14.0 07/15/20 16:00 14.0 55 Height (Feet): 5 Height (Inches): 4.00 Weight (Pounds): 130 Gen: NAD CV: RRR Pulm: Rhonchi anteriorly, lots of oral secretions Abd: Soft, NTND Ext: No c/c/e Neuro: Awake Laboratory Tests Test 07/15/20 17:27 07/15/20 23:59 07/16/20 05:03 07/16/20 05:27 POC Whole Blood Glucose Pending 150 MG/DL (74-106) H 174 MG/DL (74-106) H White Blood Count 11.7 K/UL (4.8-10.8) H Red Blood Count 3.60 M/UL (4.70-6.10) L Hemoglobin 10.7 G/DL (14.2-18.0) L Hematocrit 35.6 % (42.0-52.0) L Mean Corpuscular Volume 99 FL (80-99) Mean Corpuscular Hemoglobin 29.6 PG (27.0-31.0) Mean Corpuscular Hemoglobin Concent 30.0 G/DL (32.0-36.0) L Red Cell Distribution Width 15.1 % (11.6-14.8) H Platelet Count 340 K/UL (150-450) Mean Platelet Volume 9.1 FL (6.5-10.1) Neutrophils (%) (Auto) 81.9 % (45.0-75.0) H Lymphocytes (%) (Auto) 11.3 % (20.0-45.0) L Monocytes (%) (Auto) 5.1 % (1.0-10.0) Eosinophils (%) (Auto) 0.9 % (0.0-3.0) Basophils (%) (Auto) 0.8 % (0.0-2.0) Sodium Level 145 MMOL/L (136-145) Potassium Level 4.3 MMOL/L (3.5-5.1) Chloride Level 106 MMOL/L (98-107) Carbon Dioxide Level 35 MMOL/L (21-32) H Anion Gap 5 mmol/L (5-15) Blood Urea Nitrogen 22 mg/dL (7-18) H Creatinine 1.2 MG/DL (0.55-1.30) Estimat Glomerular Filtration Rate 58.7 mL/min (>60) Glucose Level 175 MG/DL (74-106) H Calcium Level 9.1 MG/DL (8.5-10.1) Vancomycin Level Trough 15.1 ug/mL (5.0-12.0) H Test 07/16/20 12:29 POC Whole Blood Glucose 178 MG/DL (74-106) H Current Medications Medications (Trade) Dose Ordered Sig/Ankush Route PRN Reason Start Time Stop Time Status Last Admin Dose Admin Acetaminophen (Tylenol) 650 mg Q4H PRN ORAL Temp >100.5 07/03/20 20:30 08/02/20 20:29 07/13/20 15:52 Dextrose (Dextrose 50%) 50 ml Q30M PRN IV Hypoglycemia 07/03/20 22:45 10/01/20 22:44 Heparin Sodium (Porcine) (Heparin 5000 units/ml) 5,000 units EVERY 12 HOURS SUBQ 07/03/20 21:00 08/17/20 20:59 07/16/20 09:01 Insulin Aspart (NovoLOG) EVERY 6 HOURS SUBQ 07/13/20 06:00 10/02/20 06:29 07/16/20 12:37 Meropenem 1 gm/ Sodium Chloride 55 ml @ 110 mls/hr Q12HR@0400,1600 IVPB 07/13/20 16:00 07/18/20 23:59 07/16/20 03:53 Nitroglycerin (Ntg) 0.4 mg Q5M PRN SL Prn Chest Pain 07/03/20 20:30 08/02/20 20:29 Ondansetron HCl (Zofran) 4 mg Q6H PRN IVP Nausea & Vomiting 07/03/20 20:30 08/02/20 20:29 Polyethylene Glycol (Miralax) 17 gm DAILYPRN PRN ORAL Constipation 07/03/20 20:30 08/02/20 20:29 Promethazine HCl/ Codeine (Phenergan with Codeine) 5 ml Q4H PRN ORAL For Cough 07/03/20 20:30 08/02/20 20:29 Tamsulosin HCl (Flomax) 0.4 mg BID ORAL 07/11/20 19:45 08/03/20 08:59 07/16/20 09:00 Vancomycin HCl 250 ml @ 166.667 mls/hr Q24H IVPB 07/13/20 06:00 07/18/20 05:59 07/16/20 05:32 Vancomycin HCl (Vanco pharmacy to dose) 1 ea DAILY PRN MISC Per rx protocol 07/03/20 20:30 08/02/20 20:29 Ashley Cho M.D. Jul 16, 2020 13:55
--- NOTE | 2020-07-16 14:15 | Internal Med Progress Note ---
Subjective Physician Name Ahsan Hodges Attending Physician Ahsan Hodges MD Current Medications Medications (Trade) Dose Ordered Sig/Ankush Route PRN Reason Start Time Stop Time Status Last Admin Dose Admin Acetaminophen (Tylenol) 650 mg Q4H PRN ORAL Temp >100.5 07/03/20 20:30 08/02/20 20:29 07/13/20 15:52 Dextrose (Dextrose 50%) 50 ml Q30M PRN IV Hypoglycemia 07/03/20 22:45 10/01/20 22:44 Heparin Sodium (Porcine) (Heparin 5000 units/ml) 5,000 units EVERY 12 HOURS SUBQ 07/03/20 21:00 08/17/20 20:59 07/16/20 09:01 Insulin Aspart (NovoLOG) EVERY 6 HOURS SUBQ 07/13/20 06:00 10/02/20 06:29 07/16/20 12:37 Meropenem 1 gm/ Sodium Chloride 55 ml @ 110 mls/hr Q12HR@0400,1600 IVPB 07/13/20 16:00 07/18/20 23:59 07/16/20 03:53 Nitroglycerin (Ntg) 0.4 mg Q5M PRN SL Prn Chest Pain 07/03/20 20:30 08/02/20 20:29 Ondansetron HCl (Zofran) 4 mg Q6H PRN IVP Nausea & Vomiting 07/03/20 20:30 08/02/20 20:29 Polyethylene Glycol (Miralax) 17 gm DAILYPRN PRN ORAL Constipation 07/03/20 20:30 08/02/20 20:29 Promethazine HCl/ Codeine (Phenergan with Codeine) 5 ml Q4H PRN ORAL For Cough 07/03/20 20:30 08/02/20 20:29 Tamsulosin HCl (Flomax) 0.4 mg BID ORAL 07/11/20 19:45 08/03/20 08:59 07/16/20 09:00 Vancomycin HCl 250 ml @ 166.667 mls/hr Q24H IVPB 07/13/20 06:00 07/18/20 05:59 07/16/20 05:32 Vancomycin HCl (Vanco pharmacy to dose) 1 ea DAILY PRN MISC Per rx protocol 07/03/20 20:30 08/02/20 20:29 Allergies: Coded Allergies: No Known Allergies (Unverified , 04/30/12) Subjective unresponsive, cannot follow command, on Ventimask, + shortness of breath. Objective Last Vital Signs Date Time Temp Pulse Resp B/P (MAP) Pulse Ox O2 Delivery O2 Flow Rate FiO2 07/16/20 12:00 15.0 55 07/16/20 12:00 97.8 101 20 137/83 (101) 98 07/16/20 08:16 Non-Rebreather Laboratory Tests Test 07/15/20 17:27 07/15/20 23:59 07/16/20 05:03 07/16/20 05:27 POC Whole Blood Glucose Pending 150 MG/DL (74-106) H 174 MG/DL (74-106) H White Blood Count 11.7 K/UL (4.8-10.8) H Red Blood Count 3.60 M/UL (4.70-6.10) L Hemoglobin 10.7 G/DL (14.2-18.0) L Hematocrit 35.6 % (42.0-52.0) L Mean Corpuscular Volume 99 FL (80-99) Mean Corpuscular Hemoglobin 29.6 PG (27.0-31.0) Mean Corpuscular Hemoglobin Concent 30.0 G/DL (32.0-36.0) L Red Cell Distribution Width 15.1 % (11.6-14.8) H Platelet Count 340 K/UL (150-450) Mean Platelet Volume 9.1 FL (6.5-10.1) Neutrophils (%) (Auto) 81.9 % (45.0-75.0) H Lymphocytes (%) (Auto) 11.3 % (20.0-45.0) L Monocytes (%) (Auto) 5.1 % (1.0-10.0) Eosinophils (%) (Auto) 0.9 % (0.0-3.0) Basophils (%) (Auto) 0.8 % (0.0-2.0) Sodium Level 145 MMOL/L (136-145) Potassium Level 4.3 MMOL/L (3.5-5.1) Chloride Level 106 MMOL/L (98-107) Carbon Dioxide Level 35 MMOL/L (21-32) H Anion Gap 5 mmol/L (5-15) Blood Urea Nitrogen 22 mg/dL (7-18) H Creatinine 1.2 MG/DL (0.55-1.30) Estimat Glomerular Filtration Rate 58.7 mL/min (>60) Glucose Level 175 MG/DL (74-106) H Calcium Level 9.1 MG/DL (8.5-10.1) Vancomycin Level Trough 15.1 ug/mL (5.0-12.0) H Test 07/16/20 12:29 POC Whole Blood Glucose 178 MG/DL (74-106) H Intake and Output 07/15/20 07/16/20 19:00 07:00 Intake Total 300 ml 775 ml Output Total 780 ml 750 ml Balance -480 ml 25 ml Free Water 180 ml 120 ml IV Total 55 ml Tube Feeding 120 ml 600 ml Output Urine Total 780 ml 750 ml # Bowel Movements 1 Objective GENERAL: unresponsive, unable to follow command, on a Ventimask at this time, chronically ill-appearing. HEAD AND NECK: Pupils are equal and reactive to light. Anicteric. NGT. NECK: Supple. No JVD. LUNGS: coarse breath sounds. Decreased air in bases. HEART: S1, S2. Regular rhythm. Distant heart sounds. No murmur or gallop. ABDOMEN: Soft, nondistended, nontender. Positive bowel sounds. EXTREMITIES: No cyanosis, clubbing, or edema. NEUROLOGIC: Very limited secondary to the patient's status, cannot follow commands. Assessment/Plan Assessment/Plan 1. Acute hypoxemic respiratory failure, most likely secondary to pneumonia and sepsis. 2. Sepsis secondary to urinary tract infection and pneumonia. 3. pneumonia=MRSA 4. Acute kidney injury on chronic renal insufficiency. 5. Dehydration. 6. History of chronic congestive heart failure. 7. Diabetes type 2. 8. Dyslipidemia. 9. Hypertension. 10. Alzheimer's disease. 11. COVID 19 previous positive PLAN: 1. TRansfer to Step down 2. Dr. Carreno,=Pulmonary Critical Care 3. Dr. Cho = infection disease 4. IV= D5W due to the hypernatremia and dehydration. 5. antibiotics = vancomycin and Meropenem 6. Code status is full code. 7. DVT prophylaxis is heparin subcutaneous. 8. Tube feeding @ 50 cc/hr CXR: Findings: Bilateral infiltrates are unchanged. Stable satisfactory position of nasogastric tube. Right shoulder prosthesis again demonstrated. DC planning to [facility]. follow-up with laboratory and cultures in the morning. Ahsan Hodges MD Jul 16, 2020 14:15
[2020-07-16 16:00] VITALS: BP 135/86
--- NOTE | 2020-07-16 16:27 | Diagnostic Imaging Report ---
Indication: Shortness of breath Technique: One view of the chest Comparison: 07/14/2020 Findings: Bilateral basilar infiltrates are unchanged. Heart size is normal. Right shoulder prosthesis is again demonstrated. Nasogastric tube is again demonstrated Impression: Unchanged, over 2 days, findings as above.
--- NOTE | 2020-07-16 18:30 | NUR ---
NURSE NOTES: Received hand off report from katharine Almendarezetry RN. Pt is awake and had no signs of respiratory distress. Pt is non-verbal. On 100% non-rebreather mask. NGT to R nares, receiving Glucerna 1.2 at 60ml/hr. No anxiety noted with bilateral wrist restraints to be renewed tomorrow. Stage 2 sacral ulcer present. IV site on R wrist 24g, patent. Bed is in the lowest position, locked, HOB elevated, with side rails x2. Will continue to follow plan of care.
--- NOTE | 2020-07-16 18:41 | Cardiac Electrophysiology PN ---
Assessment/Plan Assessment/Plan 1. Accelerated junctional rhythm. Not bradycardic. Ruled out for NC Echo showed ejection fraction of 55%. 2. Long run of Nonsustained VT. Likely will need cardiac cath after stabili zation. 3. Respiratory failure, on antibiotic and NRB FM 15 liters 4. Dehydration. 5. Acute renal failure. 6. Electrolyte imbalance. 7. History of CHF, but echocardiogram showed normal left ventricular systolic function. 8. History of previous COVID infection in May 2020 and Active Covid now in isolation 9. Dementia. DW RN Parks eval pending Subjective Subjective In SR in NAD in Covid isolation. No events on Abx. On 15 liter NRB. Júnior eval pending. Had 20 beats of nonsustained VT Objective Last 24 Hour Vital Signs Date Time Temp Pulse Resp B/P (MAP) Pulse Ox O2 Delivery O2 Flow Rate FiO2 07/16/20 12:00 15.0 55 07/16/20 12:00 97.8 101 20 137/83 (101) 98 07/16/20 12:00 97 07/16/20 08:16 Non-Rebreather 15.0 07/16/20 08:00 113 07/16/20 08:00 15.0 55 07/16/20 08:00 97.8 101 20 137/83 (101) 98 07/16/20 07:55 98 Non-Rebreather 15.0 100 07/16/20 04:00 15.0 55 07/16/20 04:00 99.2 100 24 135/86 (102) 98 07/16/20 04:00 115 07/16/20 00:00 100 07/16/20 00:00 98.1 97 24 125/70 (88) 99 07/15/20 21:00 Non-Rebreather 15.0 07/15/20 20:00 15.0 55 07/15/20 20:00 110 07/15/20 20:00 99.1 101 22 131/76 (94) 99 07/15/20 18:57 98 Non-Rebreather 15.0 100 Intake and Output 07/15/20 07/16/20 19:00 07:00 Intake Total 300 ml 775 ml Output Total 780 ml 750 ml Balance -480 ml 25 ml Free Water 180 ml 120 ml IV Total 55 ml Tube Feeding 120 ml 600 ml Output Urine Total 780 ml 750 ml # Bowel Movements 1 Laboratory Tests Test 07/15/20 23:59 07/16/20 05:03 07/16/20 05:27 07/16/20 12:29 POC Whole Blood Glucose 150 MG/DL (74-106) H 174 MG/DL (74-106) H 178 MG/DL (74-106) H White Blood Count 11.7 K/UL (4.8-10.8) H Red Blood Count 3.60 M/UL (4.70-6.10) L Hemoglobin 10.7 G/DL (14.2-18.0) L Hematocrit 35.6 % (42.0-52.0) L Mean Corpuscular Volume 99 FL (80-99) Mean Corpuscular Hemoglobin 29.6 PG (27.0-31.0) Mean Corpuscular Hemoglobin Concent 30.0 G/DL (32.0-36.0) L Red Cell Distribution Width 15.1 % (11.6-14.8) H Platelet Count 340 K/UL (150-450) Mean Platelet Volume 9.1 FL (6.5-10.1) Neutrophils (%) (Auto) 81.9 % (45.0-75.0) H Lymphocytes (%) (Auto) 11.3 % (20.0-45.0) L Monocytes (%) (Auto) 5.1 % (1.0-10.0) Eosinophils (%) (Auto) 0.9 % (0.0-3.0) Basophils (%) (Auto) 0.8 % (0.0-2.0) Sodium Level 145 MMOL/L (136-145) Potassium Level 4.3 MMOL/L (3.5-5.1) Chloride Level 106 MMOL/L (98-107) Carbon Dioxide Level 35 MMOL/L (21-32) H Anion Gap 5 mmol/L (5-15) Blood Urea Nitrogen 22 mg/dL (7-18) H Creatinine 1.2 MG/DL (0.55-1.30) Estimat Glomerular Filtration Rate 58.7 mL/min (>60) Glucose Level 175 MG/DL (74-106) H Calcium Level 9.1 MG/DL (8.5-10.1) Vancomycin Level Trough 15.1 ug/mL (5.0-12.0) H Test 07/16/20 17:22 POC Whole Blood Glucose 155 MG/DL (74-106) H Objective HEAD AND NECK: No JVD. NRB FM LUNGS: Coarse rhonchi. CARDIOVASCULAR: Irregular S1 and S2 with no gallop. ABDOMEN: Soft. EXTREMITIES: No pitting edema. Klever Matt MD Jul 16, 2020 18:41
--- NOTE | 2020-07-16 18:50 | NUR ---
NURSE HAND-OFF REPORT: Important Events on Shift: Discharge canceled. Deep suctioning needed Q2H. Patient Status: Stable Diet: NGT Glucerna 1.2 @ 60 Pending Orders: Pending Results/Labs: Pending MD notification: Latest Vital Signs: Temperature 98.9 , Pulse 109 , B/P 135 /86 , Respiratory Rate 24 , O2 SAT 98 , Non-Rebreather, O2 Flow Rate 15.0 . Vital Sign Comment: EKG Rhythm: Sinus Tachycardia Rhythm change?: N MD Notified?: Y -Left Message for Dr. Hodges, No cardio on the case. MD Response: Latest Gonzalez Fall Score: 70 Fall Risk: High Risk Safety Measures: Call light Within Reach, Bed Alarm Zone 1, Side Rails Side Rails x3, Bed position Low and Locked. Fall Precautions: Yellow Socks Yellow Gown Door Sign Patient Fall Education Report given to Zamzam in [facility].
--- NOTE | 2020-07-16 19:22 | NUR ---
NURSE HAND-OFF REPORT: Important Events on Shift:[Transfer from tele to SDU] Patient Status: [Stable] Diet: [Glucerna 1.2 60cc/hr, NGT] Pending Orders: [NA] Pending Results/Labs:[NA] Pending MD notification:[NA] Latest Vital Signs: Temperature 98.9 , Pulse 109 , B/P 135 /86 , Respiratory Rate 24 , O2 SAT 98 , Non-Rebreather, O2 Flow Rate 15.0 . Vital Sign Comment: [Stable] EKG Rhythm: Sinus Tachycardia Rhythm change?: N MD Notified?: Y -Left Message for Dr. Hodges, No cardio on the case. MD Response: Latest Gonzalez Fall Score: 70 Fall Risk: High Risk Safety Measures: Call light Within Reach, Bed Alarm Zone 1, Side Rails Side Rails x3, Bed position Low and Locked. Fall Precautions: Yellow Socks Yellow Gown Door Sign Patient Fall Education Report given to [FLORES Rayo].
--- NOTE | 2020-07-16 19:23 | NUR ---
NURSE NOTES: Received report from FLORES Farias. Pt a/ox0 unable to make needs known. Observed on nonrebreather 15L 100% saturating 98%. On NGT to the right nare running Glucerna 1.2 at 60 mL Wiley draining well to gravity. Right wrist TKO patent and intact. Bed kept in lowest and locked position. Bed alarm on. Will monitor.
[2020-07-16 20:00] VITALS: BP 134/62
[2020-07-17] VITALS (19 sets, daily range): BP systolic 83–136; BP diastolic 54–88
[2020-07-17] MEDS: NovoLOG Insulin Flexpen SUBQ SCH ×4 (01:18→17:44)
[2020-07-17] MEDS: Meropenem 1 GM in NS 55 ML IVPB SCH ×2 (04:36→17:36)
[2020-07-17 05:01] LABS: BASOPHILS % (AUTO) 0.6 % (0.0-2.0); EOSINOPHILS % (AUTO) 1.1 % (0.0-3.0); HEMATOCRIT 30.4 % (42.0-52.0); HEMOGLOBIN 9.3 G/DL (14.2-18.0); LYMPHOCYTES % (AUTO) 14.4 % (20.0-45.0); MEAN CORPUSCULAR VOLUME 99 FL (80-99); MONOCYTES % (AUTO) 6.5 % (1.0-10.0); NEUTROPHILS % (AUTO) 77.4 % (45.0-75.0); PLATELET COUNT 353 K/UL (150-450); RED BLOOD COUNT 3.09 M/UL (4.70-6.10); RED CELL DISTRIBUTION WIDTH 14.9 % (11.6-14.8); WHITE BLOOD COUNT 13.4 K/UL (4.8-10.8)
[2020-07-17] MEDS: Vancomycin 1.25gm/250ml Premix IVPB SCH (05:29)
[2020-07-17 05:48] LABS: ALANINE AMINOTRANSFERASE 61 U/L (12-78); ALBUMIN 1.2 G/DL (3.4-5.0); ALBUMIN/GLOBULIN RATIO 0.2 (1.0-2.7); ALKALINE PHOSPHATASE 342 U/L (46-116); ANION GAP 4 mmol/L (5-15); ASPARTATE AMINO TRANSFERASE 49 U/L (15-37); BILIRUBIN,TOTAL 0.3 MG/DL (0.2-1.0); BLOOD UREA NITROGEN 23 mg/dL (7-18); CARBON DIOXIDE 33 MMOL/L (21-32); CHLORIDE 111 MMOL/L (98-107); POTASSIUM 3.9 MMOL/L (3.5-5.1); SODIUM 148 MMOL/L (136-145)
--- NOTE | 2020-07-17 07:30 | NUR ---
NURSE HAND-OFF REPORT: Important Events on Shift: DC orders cancelled by Dr Carreno Patient Status: stable Diet: Glucerna 1.2 Pending Orders: N Pending Results/Labs: N Pending MD notification: N Latest Vital Signs: Temperature 98.4 , Pulse 96 , B/P 136 /76 , Respiratory Rate 21 , O2 SAT 98 , Non-Rebreather, O2 Flow Rate 15.0 . Vital Sign Comment: WNL EKG Rhythm: Sinus Tachycardia Rhythm change?: N MD Notified?: Y MD Response: Latest Gonzalez Fall Score: 70 Fall Risk: High Risk Safety Measures: Call light Within Reach, Bed Alarm Zone 1, Side Rails Side Rails x3, Bed position Low and Locked. Fall Precautions: Yellow Socks Yellow Gown Door Sign Patient Fall Education Report given to FLORES Traore.
--- NOTE | 2020-07-17 07:43 | NUR ---
RD ASSESSMENT & RECOMMENDATIONS SEE CARE ACTIVITY FOR COMPLETE ASSESSMENT DAILY ESTIMATED NEEDS: Needs based on DM, wound, pulmonary, cardiac 59.5kg 25-35 kcals/kg 8546-5767 total kcals 1.25-1.5 g protein/kg 74-89 g total protein 25-30 mL/kg 2023-1617 total fluid mLs NUTRITION DIAGNOSIS: * Swallowing difficulty R/T dysphagia as evidenced by INSTRUCTIONAL SERVICES SPECIALIST eval, recs for NGT feeds. * Increased kcal and pro needs r/t wound healing as evidenced by sacral pressure injury stage 2. CURRENT TF:Glucerna 1.2 @ 60ml/hr x24 hrs ENTERAL NUTRITION RECOMMENDATIONS: Glucerna 1.2 @ 60ml/hr x24 hrs to provide 1440ml, 1728 kcal, 86g pro, 1159ml free H2O - Maintain current TF - Water flush of 130ml q 6hrs - HOB over 30 degrees. ADDITIONAL RECOMMENDATIONS: * Calibrated bedscale wt for accurate CBW * Rec adding H2O flushes 130ml q 6 hrs- Na and BUN both elevated -> for additional 520ml free water * Wound care: add Sushil BID via PEG add Vit C 250mg QD * Replete lytes as needed .
--- NOTE | 2020-07-17 07:44 | NUR ---
NURSE NOTES: Received report from FLORES Rayo. Pt is asleep, confused, open eyes spontaneously. No active s/s cardiac, respiratory distress noticed at this time. Patient SR with HR 96. Patient on non-rebreather 15L o2 sat 96%. NGT draining well, patent, 63cm, on right nares. Glucerna 1.2 running @ 60ml/h. IV right wrist 24G, asymptomatic, patent, intact. Wiley Catheter draining well to gravity at this time. Patient on bilateral soft wrist restraints, able to move, cap refill <3 sec. Bed in lowest position, side rails upx3, call light within reach, bed alarm on, Will continue to monitor.
[2020-07-17] MEDS: Tamsulosin 0.4mg cap ORAL SCH ×2 (09:10→18:22)
--- NOTE | 2020-07-17 09:29 | NUR ---
CASE MANAGEMENT:REVIEW 07/17/20 SI: COVID PNA VS: T 98.4 HR 96 RR 21 B/P 136/76 SATS 98% ON 15L/NRB FIO2 100 LABS: WBC 13.4 NA 148 CL 111 BUN 23 GLU 121 MG 2.8 IS: IV MEROPENEM Q12H IV VANCOMYCIN Q24H IVF@100/HR HEPARIN SQ Q12H SDU STATUS DCP; FROM [facility] PLAN: ISOLATION PRECAUTIONS CONTINUE vancomycin and Meropenem MONITOR RESP STATUS PENDING INTUBATION
[2020-07-17] MEDS: Heparin 5000 units/ml inj SUBQ SCH ×2 (09:47→20:00)
--- NOTE | 2020-07-17 10:41 | Nephrology Progress Note ---
Assessment/Plan Problem List: (1) Dehydration (2) MELANIE (acute kidney injury) (3) Renal failure (ARF), acute on chronic (4) Hypoxia (5) Acute encephalopathy (6) Electrolyte imbalance Assessment 79-year-old male is admitted with acute hypoxic respiratory failure most likely secondary to pneumonia and sepsis, UTI. Acute on chronic renal failure Dehydration Electrolyte imbalances, hypernatremia Hypoalbuminemia Diabetes type 2 History of congestive heart failure Hypertension Hyperlipemia Alzheimer's Previous COVID-19 infection in May 2020 Plan July 17: Status unchanged. Transfer to [facility] for seizure. Stable from renal standpoint to view. Continue per consultants. July 16: Status quo. Labs reviewed. Renal parameters stable. Continue per consultants. July 15: On nonrebreather mask. Labs reviewed. Renal parameters stable.Continue per zoology teacher. Clinically unchanged. July 14: On nonrebreather mask. Inflammatory markers gradually declining. Renal parameters stable. Continue per pulmonary. July 13: Remains on nonrebreather mask. Inflammatory markers remain elevated. Renal parameters somewhat stable. Continue per pulmonary and ID. Remains full code. July 12: Patient on nonrebreather mask. Labs noted. Serum creatinine down to 1.3. Continue per consultants. July 11: Patient on nonrebreather mask. Transfer to telemetry when seen this morning. Labs noted. Continue per consultants. Serum creatinine erin to 1.7. Continue to monitor renal parameters. Continue to monitor vancomycin level July 10: Patient is not doing well clinically. Mild respiratory distress. ABG noted. Somewhat hypoxic. CBC and chemistry panel ordered. Discussed with FLORES Cho. Will defer to pulmonary management to specialist. Continue per ID. Renal parameters remained stable as of July 09. July 09: Labs reviewed. Renal parameters stable. Continue per consultants. July 08: Labs reviewed. Potassium via NG tube ordered. IV fluids stopped. Continue per consultants. July 07: Labs reviewed. Low potassium and low phosphorus replaced. Continue per consultants. Remains stable from renal standpoint of view. July 06: Patient remains n.p.o. IV fluid down to 50 cc an hour. Potassium supplement intravenously ordered. Continue per consultants. Previously: Patient is n.p.o., will continue on IV fluid of D5W 75 cc an hour We will monitor electrolytes and renal parameters Avoid nephrotoxic's Start p.o. when he clears by speech therapist, meanwhile aspiration precautions Keep the blood pressure and blood sugar in check Per orders Subjective ROS Limited/Unobtainable: Yes Objective Objective Last 24 Hour Vital Signs Date Time Temp Pulse Resp B/P (MAP) Pulse Ox O2 Delivery O2 Flow Rate FiO2 07/17/20 08:28 98 Non-Rebreather 15.0 100 07/17/20 08:00 Non-Rebreather 15.0 07/17/20 08:00 15.0 55 07/17/20 08:00 98.6 102 20 133/74 (93) 98 07/17/20 07:55 109 07/17/20 04:00 15.0 55 07/17/20 04:00 98.4 96 21 136/76 (96) 98 07/17/20 03:36 78 07/17/20 00:00 94 07/17/20 00:00 98.4 81 30 102/56 (71) 98 07/16/20 23:09 98.4 07/16/20 22:46 98 Non-Rebreather 15.0 100 07/16/20 20:00 100.2 116 30 134/62 (86) 97 07/16/20 20:00 15.0 55 07/16/20 19:42 110 07/16/20 16:00 15.0 55 07/16/20 16:00 109 07/16/20 16:00 98.9 104 24 135/86 (102) 98 07/16/20 12:00 15.0 55 07/16/20 12:00 97.8 101 20 137/83 (101) 98 07/16/20 12:00 97 Intake and Output 07/16/20 07/17/20 19:00 07:00 Intake Total 840 ml 856.3 ml Output Total 800 ml 700 ml Balance 40 ml 156.3 ml Free Water 120 ml IV Total 196.3 ml Tube Feeding 720 ml 660 ml Output Urine Total 800 ml 700 ml Laboratory Tests 07/16/20 12:29: POC Whole Blood Glucose 178H 07/16/20 17:22: POC Whole Blood Glucose 155H 07/16/20 23:58: POC Whole Blood Glucose 196H 07/17/20 00:07: POC Whole Blood Glucose 158H 07/17/20 03:40: White Blood Count 13.4H, Red Blood Count 3.09L, Hemoglobin 9.3L, Hematocrit 30.4L, Mean Corpuscular Volume 99, Mean Corpuscular Hemoglobin 30.2, Mean Corpuscular Hemoglobin Concent 30.6L, Red Cell Distribution Width 14.9H, Platelet Count 353, Mean Platelet Volume 9.7, Neutrophils (%) (Auto) 77.4H, Lymphocytes (%) (Auto) 14.4L, Monocytes (%) (Auto) 6.5, Eosinophils (%) (Auto) 1.1, Basophils (%) (Auto) 0.6, Erythrocyte Sedimentation Rate 114H, Sodium Level 148H, Potassium Level 3.9, Chloride Level 111H, Carbon Dioxide Level 33H, Anion Gap 4L, Blood Urea Nitrogen 23H, Creatinine 1.0, Estimat Glomerular Filtration Rate > 60, Glucose Level 120H, Calcium Level 9.0, Phosphorus Level 3.0, Magnesium Level 2.8H, Total Bilirubin 0.3, Aspartate Amino Transf (AST/SGOT) 49H , Alanine Aminotransferase (ALT/SGPT) 61, Alkaline Phosphatase 342H, C-Reactive Protein, Quantitative 20.4H, Total Protein 7.1, Albumin 1.2L, Globulin 5.9, Albumin/Globulin Ratio 0.2L 07/17/20 05:18: POC Whole Blood Glucose 121H Height (Feet): 5 Height (Inches): 4.00 Weight (Pounds): 130 General Appearance: no apparent distress, other - On nonrebreather mask Cardiovascular: tachycardia Respiratory/Chest: decreased breath sounds Abdomen: distended Tino Connors MD Jul 17, 2020 10:41
--- NOTE | 2020-07-17 11:31 | Pulmonolgy Critical Care Note ---
Critical Care - Asmt/Plan Problems: (1) Acute respiratory failure (2) Multifocal pneumonia (3) 2019 novel coronavirus disease (COVID-19) (4) Acute encephalopathy (5) Severe sepsis (6) Alzheimer's dementia (7) HTN (hypertension) (8) History of CVA (cerebrovascular accident) (9) BPH (benign prostatic hyperplasia) Assessment/Plan: Pt has been on NRM with 100% O2 for many days without any improvement. Will have him intubated so I can decrease his FiO2. His saturation improves hopefully with improved suctioning after intubation. Respiratory: monitor respiratory rate, adjust FIO2, CXR Cardiac: continue to monitor HR/BP Renal: F/U I&O Infectious Disease: check cultures Gastrointestinal: continue feedings/current rate Endocrine: monitor blood sugar Hematologic: monitor H/H Neurologic: PRN Ativan Affect: PRN ativan Prophylaxis: Protonix Disposition: keep in ICU Time Spent (Minutes): 40 Notes Reviewed: senior policy associate Discussed with: nurses, consultants, corrections caseworkerclinical research manager - Objective Last 24 Hour Vital Signs Date Time Temp Pulse Resp B/P (MAP) Pulse Ox O2 Delivery O2 Flow Rate FiO2 07/17/20 08:28 98 Non-Rebreather 15.0 100 07/17/20 08:00 Non-Rebreather 15.0 07/17/20 08:00 15.0 55 07/17/20 08:00 98.6 102 20 133/74 (93) 98 07/17/20 07:55 109 07/17/20 04:00 15.0 55 07/17/20 04:00 98.4 96 21 136/76 (96) 98 07/17/20 03:36 78 07/17/20 00:00 94 07/17/20 00:00 98.4 81 30 102/56 (71) 98 07/16/20 23:09 98.4 07/16/20 22:46 98 Non-Rebreather 15.0 100 07/16/20 20:00 100.2 116 30 134/62 (86) 97 07/16/20 20:00 15.0 55 07/16/20 19:42 110 07/16/20 16:00 15.0 55 07/16/20 16:00 109 07/16/20 16:00 98.9 104 24 135/86 (102) 98 07/16/20 12:00 15.0 55 07/16/20 12:00 97.8 101 20 137/83 (101) 98 07/16/20 12:00 97 Status: obtunded Condition: critical HEENT: atraumatic Neck: full ROM Heart: HR/BP stable Abdomen: soft Accucheck: 121 Critical Care - Subjective ROS Limited/Unobtainable: Yes Condition: critical FI02: 100 Sputum Amount: Moderate Tube Feeding Amount: 60 I&O: Intake and Output 07/16/20 07/17/20 19:00 07:00 Intake Total 840 ml 856.3 ml Output Total 800 ml 700 ml Balance 40 ml 156.3 ml Free Water 120 ml IV Total 196.3 ml Tube Feeding 720 ml 660 ml Output Urine Total 800 ml 700 ml CXR: cxr 07/16: no major changes. Labs: Laboratory Tests Test 07/16/20 12:29 07/16/20 17:22 07/16/20 23:58 07/17/20 00:07 POC Whole Blood Glucose 178 MG/DL (74-106) H 155 MG/DL (74-106) H 196 MG/DL (74-106) H 158 MG/DL (74-106) H Test 07/17/20 03:40 07/17/20 05:18 07/17/20 11:21 White Blood Count 13.4 K/UL (4.8-10.8) H Red Blood Count 3.09 M/UL (4.70-6.10) L Hemoglobin 9.3 G/DL (14.2-18.0) L Hematocrit 30.4 % (42.0-52.0) L Mean Corpuscular Volume 99 FL (80-99) Mean Corpuscular Hemoglobin 30.2 PG (27.0-31.0) Mean Corpuscular Hemoglobin Concent 30.6 G/DL (32.0-36.0) L Red Cell Distribution Width 14.9 % (11.6-14.8) H Platelet Count 353 K/UL (150-450) Mean Platelet Volume 9.7 FL (6.5-10.1) Neutrophils (%) (Auto) 77.4 % (45.0-75.0) H Lymphocytes (%) (Auto) 14.4 % (20.0-45.0) L Monocytes (%) (Auto) 6.5 % (1.0-10.0) Eosinophils (%) (Auto) 1.1 % (0.0-3.0) Basophils (%) (Auto) 0.6 % (0.0-2.0) Erythrocyte Sedimentation Rate 114 MM/HR (0-20) H Sodium Level 148 MMOL/L (136-145) H Potassium Level 3.9 MMOL/L (3.5-5.1) Chloride Level 111 MMOL/L (98-107) H Carbon Dioxide Level 33 MMOL/L (21-32) H Anion Gap 4 mmol/L (5-15) L Blood Urea Nitrogen 23 mg/dL (7-18) H Creatinine 1.0 MG/DL (0.55-1.30) Estimat Glomerular Filtration Rate > 60 mL/min (>60) Glucose Level 120 MG/DL (74-106) H Calcium Level 9.0 MG/DL (8.5-10.1) Phosphorus Level 3.0 MG/DL (2.5-4.9) Magnesium Level 2.8 MG/DL (1.8-2.4) H Total Bilirubin 0.3 MG/DL (0.2-1.0) Aspartate Amino Transf (AST/SGOT) 49 U/L (15-37) H Alanine Aminotransferase (ALT/SGPT) 61 U/L (12-78) Alkaline Phosphatase 342 U/L (46-116) H C-Reactive Protein, Quantitative 20.4 mg/dL (0.00-0.90) H Total Protein 7.1 G/DL (6.4-8.2) Albumin 1.2 G/DL (3.4-5.0) L Globulin 5.9 g/dL Albumin/Globulin Ratio 0.2 (1.0-2.7) L POC Whole Blood Glucose 121 MG/DL (74-106) H 159 MG/DL (74-106) H Kya Carreno MD Jul 17, 2020 11:31
--- NOTE | 2020-07-17 12:00 | NUR ---
TRANSFER TO FLOOR: Patient transferred to ICU, per Dr. Carreno. Report given to FLORES Buckley. No Belongings and medications given to FLORES Buckley. Tried Family and or S/O informed of transfer.
--- NOTE | 2020-07-17 12:12 | NUR ---
NURSE NOTES: PT IN BED. LETHARGIC. AWAITING INTUBATION. NON REBREATHER WIDE OPEN. AX TEMP 98. PUPILS 3MM SLUGGISH. NGT CLAMPED. RT WRIST 24G. OCCLUDED. SEVERAL ATTEMPTS MADE TO GET IV ACCESS,. MD WILL PLACE CENTRAL. LINE. PT THE INTUBATED. 7.5, 21AT LIP AC 12, VT 500, 100% FI02, PEEP 5. SECRETIONS BLOODY. SACRAL WOUND NOTED. PHOTO TAKEN. PT CLEANED.
[2020-07-17] MEDS ORDERED: LORazepam Inj 2mg/ml 1ml IV PRN (12:45)
[2020-07-17] MEDS ORDERED: Morphine Sulfate 4mg/ml Inj (IV USE ONLY) IVP PRN (12:45)
[2020-07-17] MEDS ORDERED: Midazolam for drip 50 MG in NS 90 ML IV PRN (13:15)
--- NOTE | 2020-07-17 13:19 | Infectious Diseases Prog Note ---
Assessment/Plan 79yo M with: Fever,r ecurrent; improving Leukocytosis ;recurrent ; increased; Acute hypoxic resp failure, on NRB mask> 4l NC; back on NRB, desaturation 07/09 Pneumonia- >HAP hx of COVID19 PNA 05/20/2007/10 Sp cx MRSA (Vancomycin APOLONIA 1), ESBL E.coli 07/03 BCx NTD UA 15-20 WBC, UCx Neg 07/03 COVID rapid neg; 07/06 rapid COVID PCR + (from prior infection)- not new infection Flu A/B neg CXR: L pna Resp cx MRSA Denis on CKD, improving [facility] Non-verbal VRE and MRSA colonized Plan: Dc vanco #15/14 for MRSA PNA Meropenem #/-14 for ESBL PNA -07/13 SP Zosyn # -07/06 SP Cefepime # -07/04 SP Flagyl # Monitor CBC/CMP Monitor resp status Monitor temp curve and hemodynamics f/u bcx x2, ua. w. reflex D/w RN Thank you for this consult. [facility] will continue to follow. Subjective Allergies: Coded Allergies: No Known Allergies (Unverified , 04/30/12) Tm 100.2 on NRB 100% was transferred to ICU wbc increased Objective Last 24 Hour Vital Signs Date Time Temp Pulse Resp B/P (MAP) Pulse Ox O2 Delivery O2 Flow Rate FiO2 07/17/20 08:28 98 Non-Rebreather 15.0 100 07/17/20 08:00 Non-Rebreather 15.0 07/17/20 08:00 15.0 55 07/17/20 08:00 98.6 102 20 133/74 (93) 98 07/17/20 07:55 109 07/17/20 04:00 15.0 55 07/17/20 04:00 98.4 96 21 136/76 (96) 98 07/17/20 03:36 78 07/17/20 00:00 94 07/17/20 00:00 98.4 81 30 102/56 (71) 98 07/16/20 23:09 98.4 07/16/20 22:46 98 Non-Rebreather 15.0 100 07/16/20 20:00 100.2 116 30 134/62 (86) 97 07/16/20 20:00 15.0 55 07/16/20 19:42 110 07/16/20 16:00 15.0 55 07/16/20 16:00 109 07/16/20 16:00 98.9 104 24 135/86 (102) 98 Height (Feet): 5 Height (Inches): 4.00 Weight (Pounds): 130 Gen: NAD CV: RRR Pulm: Rhonchi anteriorly, lots of oral secretions Abd: Soft, NTND Ext: No c/c/e Neuro: Awake Laboratory Tests Test 07/16/20 17:22 07/16/20 23:58 07/17/20 00:07 07/17/20 03:40 POC Whole Blood Glucose 155 MG/DL (74-106) H 196 MG/DL (74-106) H 158 MG/DL (74-106) H White Blood Count 13.4 K/UL (4.8-10.8) H Red Blood Count 3.09 M/UL (4.70-6.10) L Hemoglobin 9.3 G/DL (14.2-18.0) L Hematocrit 30.4 % (42.0-52.0) L Mean Corpuscular Volume 99 FL (80-99) Mean Corpuscular Hemoglobin 30.2 PG (27.0-31.0) Mean Corpuscular Hemoglobin Concent 30.6 G/DL (32.0-36.0) L Red Cell Distribution Width 14.9 % (11.6-14.8) H Platelet Count 353 K/UL (150-450) Mean Platelet Volume 9.7 FL (6.5-10.1) Neutrophils (%) (Auto) 77.4 % (45.0-75.0) H Lymphocytes (%) (Auto) 14.4 % (20.0-45.0) L Monocytes (%) (Auto) 6.5 % (1.0-10.0) Eosinophils (%) (Auto) 1.1 % (0.0-3.0) Basophils (%) (Auto) 0.6 % (0.0-2.0) Erythrocyte Sedimentation Rate 114 MM/HR (0-20) H Sodium Level 148 MMOL/L (136-145) H Potassium Level 3.9 MMOL/L (3.5-5.1) Chloride Level 111 MMOL/L (98-107) H Carbon Dioxide Level 33 MMOL/L (21-32) H Anion Gap 4 mmol/L (5-15) L Blood Urea Nitrogen 23 mg/dL (7-18) H Creatinine 1.0 MG/DL (0.55-1.30) Estimat Glomerular Filtration Rate > 60 mL/min (>60) Glucose Level 120 MG/DL (74-106) H Calcium Level 9.0 MG/DL (8.5-10.1) Phosphorus Level 3.0 MG/DL (2.5-4.9) Magnesium Level 2.8 MG/DL (1.8-2.4) H Total Bilirubin 0.3 MG/DL (0.2-1.0) Aspartate Amino Transf (AST/SGOT) 49 U/L (15-37) H Alanine Aminotransferase (ALT/SGPT) 61 U/L (12-78) Alkaline Phosphatase 342 U/L (46-116) H C-Reactive Protein, Quantitative 20.4 mg/dL (0.00-0.90) H Total Protein 7.1 G/DL (6.4-8.2) Albumin 1.2 G/DL (3.4-5.0) L Globulin 5.9 g/dL Albumin/Globulin Ratio 0.2 (1.0-2.7) L Test 07/17/20 05:18 07/17/20 11:21 POC Whole Blood Glucose 121 MG/DL (74-106) H 159 MG/DL (74-106) H Current Medications Medications (Trade) Dose Ordered Sig/Ankush Route PRN Reason Start Time Stop Time Status Last Admin Dose Admin Acetaminophen (Tylenol) 650 mg Q4H PRN ORAL Temp >100.5 07/03/20 20:30 08/02/20 20:29 07/16/20 22:39 Dextrose (Dextrose 50%) 50 ml Q30M PRN IV Hypoglycemia 07/03/20 22:45 10/01/20 22:44 Heparin Sodium (Porcine) (Heparin 5000 units/ml) 5,000 units EVERY 12 HOURS SUBQ 07/03/20 21:00 08/17/20 20:59 07/17/20 09:47 Insulin Aspart (NovoLOG) EVERY 6 HOURS SUBQ 07/13/20 06:00 10/02/20 06:29 07/17/20 01:18 Lorazepam (Ativan 2mg/ml 1ml) 2 mg Q4H PRN IV For Anxiety 07/17/20 12:45 07/24/20 12:44 Meropenem 1 gm/ Sodium Chloride 55 ml @ 110 mls/hr Q12HR@0400,1600 IVPB 07/13/20 16:00 07/18/20 23:59 07/17/20 04:36 Morphine Sulfate (Morphine Sulfate) 4 mg Q4H PRN IVP For Pain 07/17/20 12:45 07/24/20 12:44 Nitroglycerin (Ntg) 0.4 mg Q5M PRN SL Prn Chest Pain 07/03/20 20:30 08/02/20 20:29 Ondansetron HCl (Zofran) 4 mg Q6H PRN IVP Nausea & Vomiting 07/03/20 20:30 08/02/20 20:29 Pantoprazole (Protonix) 40 mg DAILY IV 07/18/20 09:00 08/17/20 08:59 Polyethylene Glycol (Miralax) 17 gm DAILYPRN PRN ORAL Constipation 07/03/20 20:30 08/02/20 20:29 Promethazine HCl/ Codeine (Phenergan with Codeine) 5 ml Q4H PRN ORAL For Cough 07/03/20 20:30 08/02/20 20:29 Tamsulosin HCl (Flomax) 0.4 mg BID ORAL 07/11/20 19:45 08/03/20 08:59 07/17/20 09:10 Vancomycin HCl 250 ml @ 166.667 mls/hr Q24H IVPB 07/13/20 06:00 07/18/20 05:59 07/17/20 05:29 Vancomycin HCl (Vanco pharmacy to dose) 1 ea DAILY PRN MISC Per rx protocol 07/03/20 20:30 08/02/20 20:29 Ashley Cho M.D. Jul 17, 2020 13:19
--- NOTE | 2020-07-17 13:38 | Cardiac Electrophysiology PN ---
Assessment/Plan Assessment/Plan 1. Accelerated junctional rhythm. Not bradycardic. Ruled out for [place] Echo showed ejection fraction of 55%. 2. Long run of 20 beats of Nonsustained VT. Will need cardiac cath after st abilization. 3. Respiratory failure, on antibiotic and NRB FM 15 liters Likely will be intubated 4. Dehydration. 5. Acute renal failure. 6. Electrolyte imbalance. 7. History of CHF, but echocardiogram showed normal left ventricular systolic fu nction. 8. History of previous COVID infection in May 2020 and active Covid now in isolation 9. Dementia. SHAYY RN Subjective Subjective In SR in NAD in Covid isolation. Transferred to ICU for respiratory failure, despite 15 liter NRB. Had 20 beats of nonsustained VT Objective Last 24 Hour Vital Signs Date Time Temp Pulse Resp B/P (MAP) Pulse Ox O2 Delivery O2 Flow Rate FiO2 07/17/20 12:00 15.0 55 07/17/20 12:00 98.4 96 22 123/88 (100) 96 07/17/20 12:00 Non-Rebreather 15.0 07/17/20 08:28 98 Non-Rebreather 15.0 100 07/17/20 08:00 Non-Rebreather 15.0 07/17/20 08:00 15.0 55 07/17/20 08:00 98.6 102 20 133/74 (93) 98 07/17/20 07:55 109 07/17/20 04:00 15.0 55 07/17/20 04:00 98.4 96 21 136/76 (96) 98 07/17/20 03:36 78 07/17/20 00:00 94 07/17/20 00:00 98.4 81 30 102/56 (71) 98 07/16/20 23:09 98.4 07/16/20 22:46 98 Non-Rebreather 15.0 100 07/16/20 20:00 100.2 116 30 134/62 (86) 97 07/16/20 20:00 15.0 55 07/16/20 19:42 110 07/16/20 16:00 15.0 55 07/16/20 16:00 109 07/16/20 16:00 98.9 104 24 135/86 (102) 98 Intake and Output 07/16/20 07/17/20 19:00 07:00 Intake Total 840 ml 856.3 ml Output Total 800 ml 700 ml Balance 40 ml 156.3 ml Free Water 120 ml IV Total 196.3 ml Tube Feeding 720 ml 660 ml Output Urine Total 800 ml 700 ml Laboratory Tests Test 07/16/20 17:22 07/16/20 23:58 07/17/20 00:07 07/17/20 03:40 POC Whole Blood Glucose 155 MG/DL (74-106) H 196 MG/DL (74-106) H 158 MG/DL (74-106) H White Blood Count 13.4 K/UL (4.8-10.8) H Red Blood Count 3.09 M/UL (4.70-6.10) L Hemoglobin 9.3 G/DL (14.2-18.0) L Hematocrit 30.4 % (42.0-52.0) L Mean Corpuscular Volume 99 FL (80-99) Mean Corpuscular Hemoglobin 30.2 PG (27.0-31.0) Mean Corpuscular Hemoglobin Concent 30.6 G/DL (32.0-36.0) L Red Cell Distribution Width 14.9 % (11.6-14.8) H Platelet Count 353 K/UL (150-450) Mean Platelet Volume 9.7 FL (6.5-10.1) Neutrophils (%) (Auto) 77.4 % (45.0-75.0) H Lymphocytes (%) (Auto) 14.4 % (20.0-45.0) L Monocytes (%) (Auto) 6.5 % (1.0-10.0) Eosinophils (%) (Auto) 1.1 % (0.0-3.0) Basophils (%) (Auto) 0.6 % (0.0-2.0) Erythrocyte Sedimentation Rate 114 MM/HR (0-20) H Sodium Level 148 MMOL/L (136-145) H Potassium Level 3.9 MMOL/L (3.5-5.1) Chloride Level 111 MMOL/L (98-107) H Carbon Dioxide Level 33 MMOL/L (21-32) H Anion Gap 4 mmol/L (5-15) L Blood Urea Nitrogen 23 mg/dL (7-18) H Creatinine 1.0 MG/DL (0.55-1.30) Estimat Glomerular Filtration Rate > 60 mL/min (>60) Glucose Level 120 MG/DL (74-106) H Calcium Level 9.0 MG/DL (8.5-10.1) Phosphorus Level 3.0 MG/DL (2.5-4.9) Magnesium Level 2.8 MG/DL (1.8-2.4) H Total Bilirubin 0.3 MG/DL (0.2-1.0) Aspartate Amino Transf (AST/SGOT) 49 U/L (15-37) H Alanine Aminotransferase (ALT/SGPT) 61 U/L (12-78) Alkaline Phosphatase 342 U/L (46-116) H C-Reactive Protein, Quantitative 20.4 mg/dL (0.00-0.90) H Total Protein 7.1 G/DL (6.4-8.2) Albumin 1.2 G/DL (3.4-5.0) L Globulin 5.9 g/dL Albumin/Globulin Ratio 0.2 (1.0-2.7) L Test 07/17/20 05:18 07/17/20 11:21 POC Whole Blood Glucose 121 MG/DL (74-106) H 159 MG/DL (74-106) H Objective HEAD AND NECK: No JVD. NRB FM LUNGS: Coarse rhonchi. CARDIOVASCULAR: Irregular S1 and S2 with no gallop. ABDOMEN: Soft. EXTREMITIES: No pitting edema. Klever Matt MD Jul 17, 2020 13:38
[2020-07-17] MEDS: Midazolam for drip 50 MG in NS 90 ML IV PRN (13:49)
--- NOTE | 2020-07-17 14:00 | NUR ---
NURSE NOTES: LATE ENTRY: VERSED DRIP AT 3MG/HR. PT RASS OBTAINED. MAINTENANCE FLUID RUNNING. PT STABLE.
--- NOTE | 2020-07-17 14:18 | NUR ---
NURSE NOTES: Called Family member, Kaitlynn, regarding transfer, unable to get in touch, mail box full unable to leave message.
--- NOTE | 2020-07-17 14:27 | Internal Med Progress Note ---
Subjective Physician Name Ahsan Hodges Attending Physician Ahsan Hodges MD Current Medications Medications (Trade) Dose Ordered Sig/Ankush Route PRN Reason Start Time Stop Time Status Last Admin Dose Admin Acetaminophen (Tylenol) 650 mg Q4H PRN ORAL Temp >100.5 07/03/20 20:30 08/02/20 20:29 07/16/20 22:39 Chlorhexidine Gluconate (Darcy-Hex 2%) 1 applic DAILY@2000 TOPIC 07/17/20 20:00 10/15/20 19:59 Dextrose (Dextrose 50%) 50 ml Q30M PRN IV Hypoglycemia 07/03/20 22:45 10/01/20 22:44 Heparin Sodium (Porcine) (Heparin 5000 units/ml) 5,000 units EVERY 12 HOURS SUBQ 07/03/20 21:00 08/17/20 20:59 07/17/20 09:47 Insulin Aspart (NovoLOG) EVERY 6 HOURS SUBQ 07/13/20 06:00 10/02/20 06:29 07/17/20 01:18 Lorazepam (Ativan 2mg/ml 1ml) 2 mg Q4H PRN IV For Anxiety 07/17/20 12:45 07/24/20 12:44 Meropenem 1 gm/ Sodium Chloride 55 ml @ 110 mls/hr Q12HR@0400,1600 IVPB 07/13/20 16:00 07/22/20 23:59 07/17/20 04:36 Midazolam HCl 50 mg/Sodium Chloride 100 ml @ 0 mls/hr Q24H PRN IV Restlessness 07/17/20 13:20 07/19/20 13:19 07/17/20 13:49 Morphine Sulfate (Morphine Sulfate) 4 mg Q4H PRN IVP For Pain 07/17/20 12:45 07/24/20 12:44 Nitroglycerin (Ntg) 0.4 mg Q5M PRN SL Prn Chest Pain 07/03/20 20:30 08/02/20 20:29 Ondansetron HCl (Zofran) 4 mg Q6H PRN IVP Nausea & Vomiting 07/03/20 20:30 08/02/20 20:29 Pantoprazole (Protonix) 40 mg DAILY IV 07/18/20 09:00 08/17/20 08:59 Polyethylene Glycol (Miralax) 17 gm DAILYPRN PRN ORAL Constipation 07/03/20 20:30 08/02/20 20:29 Promethazine HCl/ Codeine (Phenergan with Codeine) 5 ml Q4H PRN ORAL For Cough 07/03/20 20:30 08/02/20 20:29 Tamsulosin HCl (Flomax) 0.4 mg BID ORAL 07/11/20 19:45 08/03/20 08:59 07/17/20 09:10 Allergies: Coded Allergies: No Known Allergies (Unverified , 04/30/12) Subjective unresponsive, cannot follow command, worsening shortness of breath transfer to ICU, Intubated and hypotensive now. Objective Last Vital Signs Date Time Temp Pulse Resp B/P (MAP) Pulse Ox O2 Delivery O2 Flow Rate FiO2 07/17/20 13:49 25 Mechanical Ventilator 07/17/20 12:00 15.0 55 07/17/20 12:00 98.4 96 123/88 (100) 96 Laboratory Tests Test 07/16/20 17:22 07/16/20 23:58 07/17/20 00:07 07/17/20 03:40 POC Whole Blood Glucose 155 MG/DL (74-106) H 196 MG/DL (74-106) H 158 MG/DL (74-106) H White Blood Count 13.4 K/UL (4.8-10.8) H Red Blood Count 3.09 M/UL (4.70-6.10) L Hemoglobin 9.3 G/DL (14.2-18.0) L Hematocrit 30.4 % (42.0-52.0) L Mean Corpuscular Volume 99 FL (80-99) Mean Corpuscular Hemoglobin 30.2 PG (27.0-31.0) Mean Corpuscular Hemoglobin Concent 30.6 G/DL (32.0-36.0) L Red Cell Distribution Width 14.9 % (11.6-14.8) H Platelet Count 353 K/UL (150-450) Mean Platelet Volume 9.7 FL (6.5-10.1) Neutrophils (%) (Auto) 77.4 % (45.0-75.0) H Lymphocytes (%) (Auto) 14.4 % (20.0-45.0) L Monocytes (%) (Auto) 6.5 % (1.0-10.0) Eosinophils (%) (Auto) 1.1 % (0.0-3.0) Basophils (%) (Auto) 0.6 % (0.0-2.0) Erythrocyte Sedimentation Rate 114 MM/HR (0-20) H Sodium Level 148 MMOL/L (136-145) H Potassium Level 3.9 MMOL/L (3.5-5.1) Chloride Level 111 MMOL/L (98-107) H Carbon Dioxide Level 33 MMOL/L (21-32) H Anion Gap 4 mmol/L (5-15) L Blood Urea Nitrogen 23 mg/dL (7-18) H Creatinine 1.0 MG/DL (0.55-1.30) Estimat Glomerular Filtration Rate > 60 mL/min (>60) Glucose Level 120 MG/DL (74-106) H Calcium Level 9.0 MG/DL (8.5-10.1) Phosphorus Level 3.0 MG/DL (2.5-4.9) Magnesium Level 2.8 MG/DL (1.8-2.4) H Total Bilirubin 0.3 MG/DL (0.2-1.0) Aspartate Amino Transf (AST/SGOT) 49 U/L (15-37) H Alanine Aminotransferase (ALT/SGPT) 61 U/L (12-78) Alkaline Phosphatase 342 U/L (46-116) H C-Reactive Protein, Quantitative 20.4 mg/dL (0.00-0.90) H Total Protein 7.1 G/DL (6.4-8.2) Albumin 1.2 G/DL (3.4-5.0) L Globulin 5.9 g/dL Albumin/Globulin Ratio 0.2 (1.0-2.7) L Test 07/17/20 05:18 07/17/20 11:21 POC Whole Blood Glucose 121 MG/DL (74-106) H 159 MG/DL (74-106) H Intake and Output 07/16/20 07/17/20 19:00 07:00 Intake Total 840 ml 856.3 ml Output Total 800 ml 700 ml Balance 40 ml 156.3 ml Free Water 120 ml IV Total 196.3 ml Tube Feeding 720 ml 660 ml Output Urine Total 800 ml 700 ml Objective GENERAL: unresponsive, intubated, chronically ill-appearing. HEAD AND NECK: Pupils are equal and reactive to light. Anicteric. ET tube, NGT. NECK: Supple. No JVD. LUNGS: Mechanical breath sound, Decreased air in bases, + Crackles. HEART: S1, S2. Regular rhythm. Distant heart sounds. No murmur or gallop. ABDOMEN: Soft, nondistended, nontender. Positive bowel sounds. EXTREMITIES: No cyanosis, clubbing, or edema. NEUROLOGIC: Very limited secondary to the patient's status, cannot follow commands. Assessment/Plan Assessment/Plan 1. Acute hypoxemic respiratory failure, most likely secondary to pneumonia and sepsis --> Intubated (07/17/2020). 2. Sepsis secondary to urinary tract infection and pneumonia. 3. pneumonia=MRSA 4. Acute kidney injury on chronic renal insufficiency. 5. Dehydration. 6. History of chronic congestive heart failure. 7. Diabetes type 2. 8. Dyslipidemia. 9. Hypertension. 10. Alzheimer's disease. 11. COVID 19 previous positive PLAN: 1. in ICU 2. Dr. Carreno,=Pulmonary Critical Care 3. Dr. Cho = infection disease 4. start Levophed Drip 5. antibiotics = Dc vancomycin, continue on Meropenem 6. Code status is full code. 7. DVT prophylaxis is heparin subcutaneous. 8. Tube feeding @ 50 cc/hr follow-up with laboratory and cultures CXR: Satisfactory endotracheal intubation, Bilateral infiltrates, stable on the left and slightly worse on the right Ahsan Hodges MD Jul 17, 2020 14:27
--- NOTE | 2020-07-17 14:29 | NUR ---
NURSE NOTES: md hernandez Addendum: 07/17/20 at 2015 by Betsey Griffith RN HERE TO SEE PT. WAS INFORMED PT INTUBATED, ST 112, BP STABLE BUT TRENDING LOW, DOPAMINE ORDER CHANGED TO LEVOPHED. NA 148, ORDER FOR 1/2 NS AT 50ML/HR.
--- NOTE | 2020-07-17 14:41 | Emergency Room Report ---
Physical Exam Called to electively intubate patient. Patient initially in SDU. COVID +. Last 24 Hour Vital Signs Date Time Temp Pulse Resp B/P (MAP) Pulse Ox O2 Delivery O2 Flow Rate FiO2 07/17/20 13:49 25 Mechanical Ventilator 07/17/20 12:00 15.0 55 07/17/20 12:00 98.4 96 22 123/88 (100) 96 07/17/20 12:00 Non-Rebreather 15.0 07/17/20 08:28 98 Non-Rebreather 15.0 100 07/17/20 08:00 Non-Rebreather 15.0 07/17/20 08:00 15.0 55 07/17/20 08:00 98.6 102 20 133/74 (93) 98 07/17/20 07:55 109 07/17/20 04:00 15.0 55 07/17/20 04:00 98.4 96 21 136/76 (96) 98 07/17/20 03:36 78 07/17/20 00:00 94 07/17/20 00:00 98.4 81 30 102/56 (71) 98 07/16/20 23:09 98.4 07/16/20 22:46 98 Non-Rebreather 15.0 100 07/16/20 20:00 100.2 116 30 134/62 (86) 97 07/16/20 20:00 15.0 55 07/16/20 19:42 110 07/16/20 16:00 15.0 55 07/16/20 16:00 109 07/16/20 16:00 98.9 104 24 135/86 (102) 98 Sp02 EP Interpretation: reviewed, abnormal - based on FIO2 and sat General Appearance: mild distress, other, Chronically Ill Eyes: bilateral eye normal inspection, bilateral eye PERRL, bilateral eye EOMI ENT: moist mucus membranes - secretions Neck: supple Respiratory: respiratory distress - mild, crackles, rales, rhonchi Cardiovascular #1: tachycardia, edema - Upper arms Cardiovascular #2: 2+ femoral (R) Gastrointestinal: decreased bowel sounds Genitourinary: other - Wiley present Musculoskeletal: decreased range of motion - Left Neurologic: motor weakness Psychiatric: depressed affect Skin: other - Ecchymoses Critical Care Time Critical Care Time Total Critical Care Time: 45 min bedside evaluation and treatment excludes procedures (intubation, central line). Reason for critical care: Preparation and direction of care for intubation. IV access with central line needed. Possible complications: hypotension, hypertension, DC, shock, arrhythmias, metabolic acidosis, end organ damage, respiratory failure. Interventions: Central line, intubation Course: I was contacted to intubate this patient electively. Patient testing positive for COVID-19 and Covid pneumonia. Patient was in stepdown unit. I directed transfer to intensive care. Patient was not present in the intensive care unit when I arrived. IV access was poor. IVs were attempted. I directed setting up for intubation. An IV was established right antecubital and etomidate was given. There was no response. It was determined that this IV was nonfunctional. I directed that we set up for central line. The ultrasound needed to be obtained from the emergency department. See procedure note for central line. Once this was established etomidate was given and the patient was intubated. I directed further sedation after intubation was performed. Chest x-ray reveals bilateral infiltrates and endotracheal tube successfully placed. Discussion with referring physician. Consultations: nursing staff, respiratory therapy, referring physician Performed by: Dr. Kumar Tolerated well condition = critical Central Line Central Line : Consent: Emergent Central Line Lumen: triple Maximal Sterile Barrier Tech: yes cap, yes mask, yes sterile gown, yes sterile gloves, yes large sterile sheet, yes hand hygiene, yes chlorhexidine prep Central Line Postion: femoral (R) Anesthesia: none US Guided Line?: Yes Vessel visualized with U/S: Right Femoral Vein Ultrasound Findings: Collapsible Vessel Complications: arterial puncture X1, leg dark and difficult to differentiate from venous. Central Line Post Position: sutured, good blood return Attempts: Other - 2 Patient Tolerated: Well Complications: None Progress During the second cannulation vein found with ease. Vein easily cannulated. Patient tolerated the procedure well. Sutured in dressed by me. Line then used for etomidate. Estimated blood loss 10 cc. Intubation Intubation : Consent: Emergent Intubation Method: orotracheal Tube Size (cm): 7.5 Medications: Etomidate Breath Sounds after Intubation: equal Intubation Complications: no complications Post Intubation Xray: Yes Attempts: One Patient Tolerated: Well Complications: None Progress See critical care note. Initial etomidate administered subcutaneously. Central line needed to be established in order to have adequate IV access. Second administration of etomidate successful as well as intubation. Medical Decision Making Diagnostic Impression: Primary Impression: Acute respiratory failure Qualified Codes: J96.01 - Acute respiratory failure with hypoxia Additional Impression: Pneumonia due to COVID-19 virus ER Course COVID-19 pneumonia patient with hypoxia. Requested for elective intubation. Patient transferred to ICU. See critical care and procedure notes. Central line needs to be established for proper IV access and administration of etomidate. Intubation performed successfully and chest x-ray with adequate placement. Rhythm Strip Diag. Results EP Interpretation: yes Rhythm: no PVC's, no ectopy, other - ST Chest X-Ray Diagnostic Results Chest X-Ray Diagnostic Results : Chest X-Ray Ordered: Yes # of Views/Limited/Complete: 1 View Indication: Other EP Interpretation: Yes Interpretation: no effusion, no pneumothorax, other - ET good and bilateral infiltrates Impression: Other Electronically Signed by: Electronically signed by Aaron Kumar MD Last Vital Signs Date Time Temp Pulse Resp B/P (MAP) Pulse Ox O2 Delivery O2 Flow Rate FiO2 07/17/20 13:49 25 Mechanical Ventilator 07/17/20 12:00 15.0 55 07/17/20 12:00 98.4 96 123/88 (100) 96 Status: improved Disposition: ADMITTED INPATIENT Condition: Critical Referrals: Ahsan Hodges MD (PCP) Aaron Kumar MD Jul 17, 2020 14:41
[2020-07-17] MEDS: Norepinephrine 4mg/NS Premix 250 ML IV SCH ×2 (15:50→20:01)
--- NOTE | 2020-07-17 17:00 | NUR ---
NURSE NOTES: PT ORAL CARE PROVIDED. HYGIENE COMPLETE. CENTRAL DRESSING CHANGED. SACRAL DRESSING DRY AND INTACT. PT NGT CLAMPED. TIERNEY SECURE. EXTREMITIES ELEVATED ON PILLOWS.WILL CONTINUE TO MONITOR PT.
--- NOTE | 2020-07-17 17:43 | Diagnostic Imaging Report ---
Indication: Dyspnea Technique: One view of the chest Comparison: 07/16/2020 Findings: Interim endotracheal intubation, endotracheal tube tip projecting approximately 3 cm above the lea. Bilateral infiltrates appear unchanged on the left, slightly worse on the right. The heart size is normal. Nasogastric tube remains. Right shoulder prosthesis is again demonstrated. Impression: Satisfactory endotracheal intubation Bilateral infiltrates, stable on the left and slightly worse on the right
--- NOTE | 2020-07-17 19:20 | NUR ---
NURSE NOTES: Received report from FLORES Leggett. Covid positive on 07/06 test, test was negative Pt is obtunded and intubated. Settin.5/25cm at the lip line, TV 500, FiO2 50%, and Peep 5 Pt has central line on R femoral with TLC. Needs to change dressing, no Biopatch noted. Versed 3mg/hr and 0.45 NS 50mL/hr are running, CDI. PT has NGT on R nares but NPO for now. Wiley Catheter draining well to gravity at this time. Patient is on bilateral soft wrist restraints, cap refill <3 sec. Skin; see assessment. Safety measures observed and no acute distress noted. Will continue tp monitor. Addendum: 07/18/20 at 0652 by Catherine Sommers RN Settin.5/25cm at the lip line, TV 600, FiO2 55%, and Peep 0
[2020-07-17] MEDS: Dyna-Hex 2% Top Sol 2oz TOPIC SCH (19:59)
[2020-07-17] MEDS ORDERED: Dyna-Hex 2% Top Sol 2oz TOPIC SCH (20:00)
--- NOTE | 2020-07-17 20:00 | NUR ---
NURSE NOTES: BP 86/60 Levophe 2mcg/min started.
--- NOTE | 2020-07-17 20:15 | NUR ---
NURSE NOTES: Levophed incresed to 4mcgs/min
--- NOTE | 2020-07-17 20:22 | NUR ---
NURSE HAND-OFF REPORT: Latest Vital Signs: Temperature 97.5 , Pulse 109 , B/P 86 /60 , Respiratory Rate 16 , O2 SAT 96 , Mechanical Ventilator, O2 Flow Rate . Vital Sign Comment: EKG Rhythm: Sinus Tachycardia Rhythm change?: N MD Notified?: Y -Left Message for Dr. Hodges, No cardio on the case. MD Response: Latest Gonzalez Fall Score: 70 Fall Risk: High Risk Safety Measures: Call light Within Reach, Bed Alarm Zone 2, Side Rails Side Rails x3, Bed position Low and Locked. Fall Precautions: Yellow Socks Yellow Gown Door Sign Patient Fall Education Report given to FLORES PRINCE
--- NOTE | 2020-07-17 20:45 | NUR ---
NURSE NOTES: Levophed 6mcgs/min
--- NOTE | 2020-07-17 21:00 | NUR ---
NURSE NOTES: Central dressing on R Femoral with TLC changed. Biopatch added, CDI.
--- NOTE | 2020-07-17 23:00 | NUR ---
Turned and repositioned Oral care provided R femoral TLC, CDI; Levophed 6mcgs/min, Versed 3mg/hr, and 1/2 NS 50mL/hr are running, intact.
[2020-07-18] VITALS (50 sets, daily range): BP systolic 84–159; BP diastolic 49–86
--- NOTE | 2020-07-18 02:00 | NUR ---
NURSE NOTES: AM care provided Turned and repositioned Oral care provided R femoral TLC, CDI; Levophed 6mcgs/min, Versed 3mg/hr, and 1/2 NS 50mL/hr are running, intact.
--- NOTE | 2020-07-18 03:00 | NUR ---
NURSE NOTES: p200 arrived. getting ready to put it onto the bed. Pt was hot to touch. Temp was 101.5 axiliary. Cooling measures provided. Meanwhile, Cooling machine and rectal probe ordered.
[2020-07-18] MEDS: Meropenem 1 GM in NS 55 ML IVPB SCH ×2 (03:12→16:40)
--- NOTE | 2020-07-18 04:00 | NUR ---
NURSE NOTES: Inserted p200, cooling blanket and rectal probe. Temp showed 102.6 Rectal. CHG bath provided with cold towels and wipes. Changed wet gowns and linens and sliders. Changed Mepilex. Safety measures observed and no acute distress noted. will continue to monitor.
[2020-07-18 04:47] LABS: BASOPHILS % (AUTO) 0.6 % (0.0-2.0); HEMATOCRIT 28.4 % (42.0-52.0); HEMOGLOBIN 8.7 G/DL (14.2-18.0); LYMPHOCYTES % (AUTO) 16.7 % (20.0-45.0); MEAN CORPUSCULAR VOLUME 97 FL (80-99); MONOCYTES % (AUTO) 5.3 % (1.0-10.0); NEUTROPHILS % (AUTO) 76.4 % (45.0-75.0); PLATELET COUNT 398 K/UL (150-450); RED BLOOD COUNT 2.94 M/UL (4.70-6.10); WHITE BLOOD COUNT 14.9 K/UL (4.8-10.8)
[2020-07-18 05:51] LABS: ALBUMIN 1.2 G/DL (3.4-5.0); ALBUMIN/GLOBULIN RATIO 0.2 (1.0-2.7); BILIRUBIN,TOTAL 0.4 MG/DL (0.2-1.0); CALCIUM 7.9 MG/DL (8.5-10.1); CREATININE 1.2 MG/DL (0.55-1.30); PHOSPHORUS 1.2 MG/DL (2.5-4.9); POTASSIUM 3.3 MMOL/L (3.5-5.1)
[2020-07-18] MEDS: NovoLOG Insulin Flexpen SUBQ SCH ×4 (06:00→17:38)
--- NOTE | 2020-07-18 06:00 | NUR ---
NURSE NOTES: BG 131 asymptomatic. Temp is still 101.2 via Rectal.
[2020-07-18] MEDS: Norepinephrine 4mg/NS Premix 250 ML IV SCH ×2 (06:34→17:38)
--- NOTE | 2020-07-18 07:30 | NUR ---
RESPIRATORY THERAPY NOTES: Attempted to wean Patient at 0730. Patient tolerated weaning for 3 minutes then became tachypneic. Respiratory Rate increased to >35, RSBI >120, and the Patient started becoming SOB. Placed back onto previous settings on ACVC 16, 600, 40%, +5.
[2020-07-18] MEDS: Midazolam for drip 50 MG in NS 90 ML IV PRN (07:36)
[2020-07-18] MEDS: Tamsulosin 0.4mg cap ORAL SCH ×2 (08:38→17:37)
[2020-07-18] MEDS: Pantoprazole Inj IV SCH (08:38)
[2020-07-18] MEDS: Heparin 5000 units/ml inj SUBQ SCH ×2 (08:40→20:46)
--- NOTE | 2020-07-18 09:07 | Pulmonolgy Critical Care Note ---
Critical Care - Asmt/Plan Assessment/Plan: ASSESSMENT Acute hypoxemic respiratory failure , requiring intubation ( initially 100% NRM) Sepsis Pneumonia , possible aspiration Probable UTI Hx of COVID 19 05/20/20Dysphagia MELANIE-resolved Hypernatremia History of CVA Diabetes mellitus History of hypertension Alzheimer dementia PLAN OF CARE ICU vent support pulm toilet fup with CXR and ABG sedation pressor, titrate to keep mean arterial BP > 65 rapid COVID- and influenza swab both NGT 07/03 rapid COVID 07/06 +, likely old infectiona sepr ID SCX 07/10-> MRSA, E coli ESBL UCX 07/03 -> NGT BCX 07/13 NGTD abx as per ID recs DVT and GI prophylaxis a/tussive prn NG tube for meds strict aspiration precaution gentle IVF monitor renal parameters, lytes , correct electrolytes as needed ,avoid nephrotoxic replace K this am creatinine down to normal ECHO with pEF 55%, monitor volumes BS management with SSI supportive care remains FC case discussed and evaluated by supervising physician Critical Care - Objective Last 24 Hour Vital Signs Date Time Temp Pulse Resp B/P (MAP) Pulse Ox O2 Delivery O2 Flow Rate FiO2 07/18/20 08:58 97 20 50 07/18/20 07:36 16 Mechanical Ventilator 55 07/18/20 07:30 100.1 106 24 137/74 (95) 99 07/18/20 07:11 100 17 50 07/18/20 07:00 97 18 129/73 (91) 92 07/18/20 07:00 16 Mechanical Ventilator 55 07/18/20 06:34 112/62 07/18/20 06:30 88 16 07/18/20 06:30 88 20 112/62 (79) 99 07/18/20 06:00 101.2 88 16 120/68 (85) 99 07/18/20 06:00 16 Mechanical Ventilator 50 07/18/20 05:30 86 16 116/65 (82) 99 07/18/20 05:07 81 16 55 07/18/20 05:00 16 Mechanical Ventilator 50 07/18/20 05:00 101.4 85 16 109/62 (78) 99 07/18/20 04:30 93 16 109/63 (78) 99 07/18/20 04:00 55 07/18/20 04:00 102.6 93 16 111/65 (80) 98 07/18/20 04:00 16 Mechanical Ventilator 50 07/18/20 04:00 93 07/18/20 04:00 Mechanical Ventilator 07/18/20 03:30 97 16 106/61 (76) 98 07/18/20 03:00 16 Mechanical Ventilator 50 07/18/20 03:00 101.5 97 16 114/66 (82) 98 07/18/20 02:50 97 16 55 07/18/20 02:30 97 16 108/65 (79) 98 07/18/20 02:00 98 16 110/63 (79) 98 07/18/20 02:00 16 Mechanical Ventilator 50 07/18/20 01:30 97 16 105/64 (78) 98 07/18/20 01:05 98 16 55 07/18/20 01:00 97 16 113/63 (80) 98 07/18/20 01:00 16 Mechanical Ventilator 50 07/18/20 00:30 96 16 108/65 (79) 98 07/18/20 00:00 16 Mechanical Ventilator 50 07/18/20 00:00 99.9 98 16 108/68 (81) 98 07/18/20 00:00 Mechanical Ventilator 07/17/20 23:30 98 16 104/61 (75) 98 07/17/20 23:00 98 16 109/65 (80) 98 07/17/20 23:00 16 Mechanical Ventilator 50 07/17/20 22:42 96 16 55 07/17/20 22:30 96 16 102/63 (76) 98 07/17/20 22:00 16 Mechanical Ventilator 50 07/17/20 22:00 94 16 102/62 (75) 98 07/17/20 21:30 94 16 100/60 (73) 97 07/17/20 21:00 98 16 120/67 (84) 97 07/17/20 21:00 16 Mechanical Ventilator 50 07/17/20 20:45 100 16 92/54 (67) 95 07/17/20 20:35 96 16 55 07/17/20 20:30 91 18 128/62 (84) 98 07/17/20 20:15 108 16 90/57 (68) 95 07/17/20 20:01 86/60 07/17/20 20:01 16 Mechanical Ventilator 50 07/17/20 20:00 Mechanical Ventilator 07/17/20 20:00 108 07/17/20 20:00 55 07/17/20 20:00 99.7 108 16 86/60 (69) 95 07/17/20 19:30 109 16 90/56 (67) 96 07/17/20 19:05 107 16 55 07/17/20 19:00 107 16 90/62 (71) 97 07/17/20 19:00 16 Mechanical Ventilator 50 07/17/20 18:36 16 Mechanical Ventilator 07/17/20 17:36 16 Mechanical Ventilator 07/17/20 17:26 107 16 55 07/17/20 16:39 13 Mechanical Ventilator 07/17/20 16:30 111 19 86/61 (69) 98 07/17/20 16:15 107 16 86/54 (65) 99 07/17/20 16:00 97.5 109 17 83/55 (64) 98 07/17/20 16:00 112 07/17/20 16:00 Mechanical Ventilator 07/17/20 15:39 18 Mechanical Ventilator 07/17/20 14:39 21 Mechanical Ventilator 07/17/20 14:30 110 17 60 07/17/20 13:49 25 Mechanical Ventilator 07/17/20 13:04 114 15 100 07/17/20 12:59 114 15 100 Mechanical Ventilator 100 07/17/20 12:00 15.0 55 07/17/20 12:00 98.4 96 22 123/88 (100) 96 07/17/20 12:00 Non-Rebreather 15.0 07/17/20 12:00 112 Objective: General Appearance: no apparent distress, sedated, intubated Lines, tubes and drains: R femoral CL TL intact HEENT: normocephalic, atraumatic, anicteric, NGT , OP with ET in place, intact Respiratory/Chest: few scattered rhonchi Cardiovascular/Chest: normal peripheral pulses, low tachy Abdomen: normal bowel sounds, non tender, soft : Wiley Extremities: no calf tenderness, normal capillary refill Neurologic: abnormal gait /bedridden Musculoskeletal: atrophy - BLE Accucheck: 131 Critical Care - Subjective ROS Limited/Unobtainable: Yes Interval Events: intubated 07/17 on pressors sedated fevers, leukocytosis Condition: critical IV Access: central - R femoral CL intact EKG Rhythm: Sinus Tachycardia FI02: 50 Vent Support Breath Rate: 16 Vent Support Mode: AC Vent Tidal Volume: 600 Sputum Amount: Large PEEP: 0.0 PIP: 43 Fluids: 1/2 NS at 50 Drips: versed 3 mg/hr, levophed 6 mcg/min Tube Feeding Amount: 60 I&O: Intake and Output 07/17/20 07/18/20 19:00 07:00 Intake Total 206.4 ml 851.000 ml Output Total 165 ml 330 ml Balance 41.4 ml 521.000 ml IV Total 206.4 ml 851.000 ml Output Urine Total 165 ml 330 ml # Bowel Movements 3 CXR: CXR 07/17 - Satisfactory endotracheal intubation Bilateral infiltrates, stable on the left and slightly worse on the right ET-Tube: 7.5 ET Position: 25 Yari Baugh NP Jul 18, 2020 09:07
--- NOTE | 2020-07-18 09:40 | NUR ---
NURSE NOTES: LATE ENTRY: MD. PEREZ HERE TO SEE PT . WAS INFORMED OF PT HR. YESTERDAY PT 20+ BEATS OF V TACH. TODAY PVC'S. INTUBATED AC 16, VT 600, FI02 50%. SATING 95%. LOTS OF SECRETIONS. ON LEVO AT 6MCG/HR, VERSED AT 3MG.
--- NOTE | 2020-07-18 11:03 | NUR ---
NURSE NOTES: MD. ANDERSON HERE TO SEE PT. WAS INFORMED OF LABS. K3.3. 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
--- NOTE | 2020-07-18 11:24 | Nephrology Progress Note ---
Assessment/Plan Problem List: (1) Dehydration (2) MELANIE (acute kidney injury) (3) Renal failure (ARF), acute on chronic (4) Hypoxia (5) Acute encephalopathy (6) Electrolyte imbalance Assessment 79-year-old male is admitted with acute hypoxic respiratory failure most likely secondary to pneumonia and sepsis, UTI. Acute on chronic renal failure Dehydration Electrolyte imbalances, hypernatremia Hypoalbuminemia Diabetes type 2 History of congestive heart failure Hypertension Hyperlipemia Alzheimer's Previous COVID-19 infection in May 2020 Plan July 18: Patient in ICU. Intubated on ventilator. On 6 mics of Levophed. Will give 100 cc albumin 25%. K-Phos IV ordered. Continue per consultants. Continue monitor renal parameters and electrolytes. July 17: Status unchanged. Transfer to [facility] for seizure. Stable from renal standpoint to view. Continue per consultants. July 16: Status quo. Labs reviewed. Renal parameters stable. Continue per consultants. July 15: On nonrebreather mask. Labs reviewed. Renal parameters stabl e.Continue per flange turner. Clinically unchanged. July 14: On nonrebreather mask. Inflammatory markers gradually declining. Renal parameters stable. Continue per pulmonary. July 13: Remains on nonrebreather mask. Inflammatory markers remain el evated. Renal parameters somewhat stable. Continue per pulmonary and ID. Remains full code. July 12: Patient on nonrebreather mask. Labs noted. Serum creatinine down to 1.3. Continue per consultants. July 11: Patient on nonrebreather mask. Transfer to telemetry when seen this morning. Labs noted. Continue per consultants. Serum creatinine erin to 1.7. Continue to monitor renal parameters. Continue to monitor vancomycin level July 10: Patient is not doing well clinically. Mild respiratory distress. ABG noted. Somewhat hypoxic. CBC and chemistry panel ordered. Discussed with FLORES Cho. Will defer to pulmonary management to specialist. Continue per ID. Renal parameters remained stable as of July 09. July 09: Labs reviewed. Renal parameters stable. Continue per consultants. July 08: Labs reviewed. Potassium via NG tube ordered. IV fluids stopped. Continue per consultants. July 07: Labs reviewed. Low potassium and low phosphorus replaced. Continue per consultants. Remains stable from renal standpoint of view. July 06: Patient remains n.p.o. IV fluid down to 50 cc an hour. Potassium supplement intravenously ordered. Continue per consultants. Previously: Patient is n.p.o., will continue on IV fluid of D5W 75 cc an hour We will monitor electrolytes and renal parameters Avoid nephrotoxic's Start p.o. when he clears by speech therapist, meanwhile aspiration precautions Keep the blood pressure and blood sugar in check Per orders Subjective ROS Limited/Unobtainable: Yes Objective Objective Last 24 Hour Vital Signs Date Time Temp Pulse Resp B/P (MAP) Pulse Ox O2 Delivery O2 Flow Rate FiO2 07/18/20 08:58 97 20 50 07/18/20 08:00 112 07/18/20 07:36 16 Mechanical Ventilator 55 07/18/20 07:30 100.1 106 24 137/74 (95) 99 07/18/20 07:11 100 17 50 07/18/20 07:00 97 18 129/73 (91) 92 07/18/20 07:00 16 Mechanical Ventilator 55 07/18/20 06:34 112/62 07/18/20 06:30 88 16 07/18/20 06:30 88 20 112/62 (79) 99 07/18/20 06:00 101.2 88 16 120/68 (85) 99 07/18/20 06:00 16 Mechanical Ventilator 50 07/18/20 05:30 86 16 116/65 (82) 99 07/18/20 05:07 81 16 55 07/18/20 05:00 16 Mechanical Ventilator 50 07/18/20 05:00 101.4 85 16 109/62 (78) 99 07/18/20 04:30 93 16 109/63 (78) 99 07/18/20 04:00 55 07/18/20 04:00 102.6 93 16 111/65 (80) 98 07/18/20 04:00 16 Mechanical Ventilator 50 07/18/20 04:00 93 07/18/20 04:00 Mechanical Ventilator 07/18/20 03:30 97 16 106/61 (76) 98 07/18/20 03:00 16 Mechanical Ventilator 50 07/18/20 03:00 101.5 97 16 114/66 (82) 98 07/18/20 02:50 97 16 55 07/18/20 02:30 97 16 108/65 (79) 98 07/18/20 02:00 98 16 110/63 (79) 98 07/18/20 02:00 16 Mechanical Ventilator 50 07/18/20 01:30 97 16 105/64 (78) 98 07/18/20 01:05 98 16 55 07/18/20 01:00 97 16 113/63 (80) 98 07/18/20 01:00 16 Mechanical Ventilator 50 07/18/20 00:30 96 16 108/65 (79) 98 07/18/20 00:00 16 Mechanical Ventilator 50 07/18/20 00:00 99.9 98 16 108/68 (81) 98 07/18/20 00:00 Mechanical Ventilator 07/17/20 23:30 98 16 104/61 (75) 98 07/17/20 23:00 98 16 109/65 (80) 98 07/17/20 23:00 16 Mechanical Ventilator 50 07/17/20 22:42 96 16 55 07/17/20 22:30 96 16 102/63 (76) 98 07/17/20 22:00 16 Mechanical Ventilator 50 07/17/20 22:00 94 16 102/62 (75) 98 07/17/20 21:30 94 16 100/60 (73) 97 07/17/20 21:00 98 16 120/67 (84) 97 07/17/20 21:00 16 Mechanical Ventilator 50 07/17/20 20:45 100 16 92/54 (67) 95 07/17/20 20:35 96 16 55 07/17/20 20:30 91 18 128/62 (84) 98 07/17/20 20:15 108 16 90/57 (68) 95 07/17/20 20:01 86/60 07/17/20 20:01 16 Mechanical Ventilator 50 07/17/20 20:00 Mechanical Ventilator 07/17/20 20:00 108 07/17/20 20:00 55 07/17/20 20:00 99.7 108 16 86/60 (69) 95 07/17/20 19:30 109 16 90/56 (67) 96 07/17/20 19:05 107 16 55 07/17/20 19:00 107 16 90/62 (71) 97 07/17/20 19:00 16 Mechanical Ventilator 50 07/17/20 18:36 16 Mechanical Ventilator 07/17/20 17:36 16 Mechanical Ventilator 07/17/20 17:26 107 16 55 07/17/20 16:39 13 Mechanical Ventilator 07/17/20 16:30 111 19 86/61 (69) 98 07/17/20 16:15 107 16 86/54 (65) 99 07/17/20 16:00 97.5 109 17 83/55 (64) 98 07/17/20 16:00 112 07/17/20 16:00 Mechanical Ventilator 07/17/20 15:39 18 Mechanical Ventilator 07/17/20 14:39 21 Mechanical Ventilator 07/17/20 14:30 110 17 60 07/17/20 13:49 25 Mechanical Ventilator 07/17/20 13:04 114 15 100 07/17/20 12:59 114 15 100 Mechanical Ventilator 100 07/17/20 12:00 15.0 55 07/17/20 12:00 98.4 96 22 123/88 (100) 96 07/17/20 12:00 Non-Rebreather 15.0 07/17/20 12:00 112 Intake and Output 07/17/20 07/18/20 19:00 07:00 Intake Total 206.4 ml 851.000 ml Output Total 165 ml 330 ml Balance 41.4 ml 521.000 ml IV Total 206.4 ml 851.000 ml Output Urine Total 165 ml 330 ml # Bowel Movements 3 Current Medications Medications (Trade) Dose Ordered Sig/Ankush Route PRN Reason Start Time Stop Time Status Last Admin Dose Admin Acetaminophen (Tylenol) 650 mg Q4H PRN ORAL Temp >100.5 07/03/20 20:30 08/02/20 20:29 07/16/20 22:39 Chlorhexidine Gluconate (Darcy-Hex 2%) 1 applic DAILY@1999 TOPIC 07/17/20 20:00 10/15/20 19:59 07/17/20 19:59 Dextrose (Dextrose 50%) 50 ml Q30M PRN IV Hypoglycemia 07/03/20 22:45 10/01/20 22:44 Heparin Sodium (Porcine) (Heparin 5000 units/ml) 5,000 units EVERY 12 HOURS SUBQ 07/03/20 21:00 08/17/20 20:59 07/18/20 08:40 Insulin Aspart (NovoLOG) EVERY 6 HOURS SUBQ 07/13/20 06:00 10/02/20 06:29 07/17/20 01:18 Lorazepam (Ativan 2mg/ml 1ml) 2 mg Q4H PRN IV For Anxiety 07/17/20 12:45 07/24/20 12:44 Meropenem 1 gm/ Sodium Chloride 55 ml @ 110 mls/hr Q12HR@0400,1600 IVPB 07/13/20 16:00 07/22/20 23:59 07/18/20 03:12 Midazolam HCl 50 mg/Sodium Chloride 100 ml @ 0 mls/hr Q24H PRN IV Restlessness 07/17/20 13:20 07/19/20 13:19 07/18/20 07:36 Morphine Sulfate (Morphine Sulfate) 4 mg Q4H PRN IVP For Pain 07/17/20 12:45 07/24/20 12:44 Nitroglycerin (Ntg) 0.4 mg Q5M PRN SL Prn Chest Pain 07/03/20 20:30 08/02/20 20:29 Norepinephrine Bitartrate 250 ml @ 0 mls/hr Q24H IV 07/17/20 15:50 07/20/20 15:49 07/18/20 06:34 Ondansetron HCl (Zofran) 4 mg Q6H PRN IVP Nausea & Vomiting 07/03/20 20:30 08/02/20 20:29 Pantoprazole (Protonix) 40 mg DAILY IV 07/18/20 09:00 08/17/20 08:59 07/18/20 08:38 Polyethylene Glycol (Miralax) 17 gm DAILYPRN PRN ORAL Constipation 07/03/20 20:30 08/02/20 20:29 Potassium Phosphate 250 ml @ 62.5 mls/hr Q4H IVPB 07/18/20 11:00 07/18/20 18:59 UNV Promethazine HCl/ Codeine (Phenergan with Codeine) 5 ml Q4H PRN ORAL For Cough 07/03/20 20:30 08/02/20 20:29 Sodium Chloride 1,000 ml @ 50 mls/hr Q20H IV 07/17/20 16:00 08/16/20 15:59 07/17/20 17:36 Tamsulosin HCl (Flomax) 0.4 mg BID ORAL 07/11/20 19:45 08/03/20 08:59 07/18/20 08:38 Laboratory Tests 07/17/20 14:44: Arterial Blood pH 7.472H, Arterial Blood Partial Pressure CO2 40.9, Arterial Blood Partial Pressure O2 224.0H, Arterial Blood HCO3 29.2H, Arterial Blood Oxygen Saturation 98.8, Arterial Blood Base Excess 5.2H, Richard Test Positive 07/18/20 03:45: White Blood Count 14.9H, Red Blood Count 2.94L, Hemoglobin 8.7L, Hematocrit 28.4L, Mean Corpuscular Volume 97, Mean Corpuscular Hemoglobin 29.6, Mean Corpuscular Hemoglobin Concent 30.6L, Red Cell Distribution Width 15.0H, Platelet Count 398, Mean Platelet Volume 8.6, Neutrophils (%) (Auto) 76.4H, Lymphocytes (%) (Auto) 16.7L, Monocytes (%) (Auto) 5.3, Eosinophils (%) (Auto) 1.0, Basophils (%) (Auto) 0.6, Sodium Level 149H, Potassium Level 3.3L, Chloride Level 112H, Carbon Dioxide Level 26, Anion Gap 11, Blood Urea Nitrogen 24H, Creatinine 1.2, Estimat Glomerular Filtration Rate 58.7, Glucose Level 123H, Calcium Level 7.9L, Phosphorus Level 1.2L, Magnesium Level 2.5H, Total Bilirubin 0.4, Aspartate Amino Transf (AST/SGOT) 30, Alanine Aminotransferase (ALT/SGPT) 42, Alkaline Phosphatase 285H, Total Protein 6.9, Albumin 1.2L, Globulin 5.7, Albumin/Globulin Ratio 0.2L 07/18/20 07:39: Arterial Blood pH 7.471H, Arterial Blood Partial Pressure CO2 35.0, Arterial Blood Partial Pressure O2 52.9L, Arterial Blood HCO3 25.0, Arterial Blood Oxygen Saturation 86.8*L, Arterial Blood Base Excess 1.5, Richard Test N/a Height (Feet): 5 Height (Inches): 4.00 Weight (Pounds): 130 EENT: other - Patient in ICU. Intubated. Cardiovascular: tachycardia Respiratory/Chest: decreased breath sounds Abdomen: distended Tino Connors MD Jul 18, 2020 11:24
--- NOTE | 2020-07-18 11:56 | NUR ---
NURSE NOTES: CALLED PHARMACY REGARDING K PHOS AND ALBUMIN , WILL ADMINISTER WHEN AVAILABLE
[2020-07-18] MEDS: Potassium Phosphate 15mm/250ml 250 ML IVPB SCH ×2 (13:26→16:48)
--- NOTE | 2020-07-18 13:52 | NUR ---
NURSE NOTES: TECH HERE TO DO CXR. PT IN NO ACUTE DISTRESS.
--- NOTE | 2020-07-18 14:03 | NUR ---
RADIOLOGY DEPT., CHEST X-RAY COMPLETED.-P.DYE
--- NOTE | 2020-07-18 14:22 | Cardiac Electrophysiology PN ---
Assessment/Plan Assessment/Plan 1. Accelerated junctional rhythm. Not bradycardic. Ruled out for [place] Echo showed ejection fraction of 55%. 2. Long run of 30 beats of Nonsustained VT on 07/14/2020. Will need cardiac cath after stabilization. 3. Respiratory failure, on antibiotic and intubated 4. Septic shock. on LEvophed. 5. Acute renal failure. 6. Electrolyte imbalance. 7. History of CHF, but echocardiogram showed normal left ventricular systolic function. 8. History of previous COVID infection in May 2020 and active Covid now in isolation 9. Dementia. DW RN Subjective Subjective In SR in NAD in Covid isolation. Transferred to ICU for respiratory failure, despite 15 liter NRB. Had 30 beats of VT on 07/14/20 at 16:46 Objective Last 24 Hour Vital Signs Date Time Temp Pulse Resp B/P (MAP) Pulse Ox O2 Delivery O2 Flow Rate FiO2 07/18/20 13:27 86 16 50 07/18/20 11:28 82 16 50 07/18/20 08:58 97 20 50 07/18/20 08:00 112 07/18/20 07:36 16 Mechanical Ventilator 55 07/18/20 07:30 100.1 106 24 137/74 (95) 99 07/18/20 07:11 100 17 50 07/18/20 07:00 97 18 129/73 (91) 92 07/18/20 07:00 16 Mechanical Ventilator 55 07/18/20 06:34 112/62 07/18/20 06:30 88 16 07/18/20 06:30 88 20 112/62 (79) 99 07/18/20 06:00 101.2 88 16 120/68 (85) 99 07/18/20 06:00 16 Mechanical Ventilator 50 07/18/20 05:30 86 16 116/65 (82) 99 07/18/20 05:07 81 16 55 07/18/20 05:00 16 Mechanical Ventilator 50 07/18/20 05:00 101.4 85 16 109/62 (78) 99 07/18/20 04:30 93 16 109/63 (78) 99 07/18/20 04:00 55 07/18/20 04:00 102.6 93 16 111/65 (80) 98 07/18/20 04:00 16 Mechanical Ventilator 50 07/18/20 04:00 93 07/18/20 04:00 Mechanical Ventilator 07/18/20 03:30 97 16 106/61 (76) 98 07/18/20 03:00 16 Mechanical Ventilator 50 07/18/20 03:00 101.5 97 16 114/66 (82) 98 07/18/20 02:50 97 16 55 07/18/20 02:30 97 16 108/65 (79) 98 07/18/20 02:00 98 16 110/63 (79) 98 07/18/20 02:00 16 Mechanical Ventilator 50 07/18/20 01:30 97 16 105/64 (78) 98 07/18/20 01:05 98 16 55 07/18/20 01:00 97 16 113/63 (80) 98 07/18/20 01:00 16 Mechanical Ventilator 50 07/18/20 00:30 96 16 108/65 (79) 98 07/18/20 00:00 16 Mechanical Ventilator 50 07/18/20 00:00 99.9 98 16 108/68 (81) 98 07/18/20 00:00 Mechanical Ventilator 07/17/20 23:30 98 16 104/61 (75) 98 07/17/20 23:00 98 16 109/65 (80) 98 07/17/20 23:00 16 Mechanical Ventilator 50 07/17/20 22:42 96 16 55 07/17/20 22:30 96 16 102/63 (76) 98 07/17/20 22:00 16 Mechanical Ventilator 50 07/17/20 22:00 94 16 102/62 (75) 98 07/17/20 21:30 94 16 100/60 (73) 97 07/17/20 21:00 98 16 120/67 (84) 97 07/17/20 21:00 16 Mechanical Ventilator 50 07/17/20 20:45 100 16 92/54 (67) 95 07/17/20 20:35 96 16 55 07/17/20 20:30 91 18 128/62 (84) 98 07/17/20 20:15 108 16 90/57 (68) 95 07/17/20 20:01 86/60 07/17/20 20:01 16 Mechanical Ventilator 50 07/17/20 20:00 Mechanical Ventilator 07/17/20 20:00 108 07/17/20 20:00 55 07/17/20 20:00 99.7 108 16 86/60 (69) 95 07/17/20 19:30 109 16 90/56 (67) 96 07/17/20 19:05 107 16 55 07/17/20 19:00 107 16 90/62 (71) 97 07/17/20 19:00 16 Mechanical Ventilator 50 07/17/20 18:36 16 Mechanical Ventilator 07/17/20 17:36 16 Mechanical Ventilator 07/17/20 17:26 107 16 55 07/17/20 16:39 13 Mechanical Ventilator 07/17/20 16:30 111 19 86/61 (69) 98 07/17/20 16:15 107 16 86/54 (65) 99 07/17/20 16:00 97.5 109 17 83/55 (64) 98 07/17/20 16:00 112 07/17/20 16:00 Mechanical Ventilator 07/17/20 15:39 18 Mechanical Ventilator 07/17/20 14:39 21 Mechanical Ventilator 07/17/20 14:30 110 17 60 Intake and Output 07/17/20 07/18/20 19:00 07:00 Intake Total 206.4 ml 851.000 ml Output Total 165 ml 330 ml Balance 41.4 ml 521.000 ml IV Total 206.4 ml 851.000 ml Output Urine Total 165 ml 330 ml # Bowel Movements 3 Laboratory Tests Test 07/17/20 14:44 07/18/20 03:45 07/18/20 07:39 Arterial Blood pH 7.472 (7.350-7.450) 7.471 (7.350-7.450) Arterial Blood Partial Pressure CO2 40.9 mmHg (35.0-45.0) 35.0 mmHg (35.0-45.0) Arterial Blood Partial Pressure O2 224.0 mmHg (75.0-100.0) H 52.9 mmHg (75.0-100.0) L Arterial Blood HCO3 29.2 mmol/L (22.0-26.0) H 25.0 mmol/L (22.0-26.0) Arterial Blood Oxygen Saturation 98.8 % (95-100) 86.8 % (95-100) *L Arterial Blood Base Excess 5.2 (-2-2) H 1.5 (-2-2) Richard Test Positive N/a White Blood Count 14.9 K/UL (4.8-10.8) H Red Blood Count 2.94 M/UL (4.70-6.10) L Hemoglobin 8.7 G/DL (14.2-18.0) L Hematocrit 28.4 % (42.0-52.0) L Mean Corpuscular Volume 97 FL (80-99) Mean Corpuscular Hemoglobin 29.6 PG (27.0-31.0) Mean Corpuscular Hemoglobin Concent 30.6 G/DL (32.0-36.0) L Red Cell Distribution Width 15.0 % (11.6-14.8) H Platelet Count 398 K/UL (150-450) Mean Platelet Volume 8.6 FL (6.5-10.1) Neutrophils (%) (Auto) 76.4 % (45.0-75.0) H Lymphocytes (%) (Auto) 16.7 % (20.0-45.0) L Monocytes (%) (Auto) 5.3 % (1.0-10.0) Eosinophils (%) (Auto) 1.0 % (0.0-3.0) Basophils (%) (Auto) 0.6 % (0.0-2.0) Sodium Level 149 MMOL/L (136-145) H Potassium Level 3.3 MMOL/L (3.5-5.1) L Chloride Level 112 MMOL/L (98-107) H Carbon Dioxide Level 26 MMOL/L (21-32) Anion Gap 11 mmol/L (5-15) Blood Urea Nitrogen 24 mg/dL (7-18) H Creatinine 1.2 MG/DL (0.55-1.30) Estimat Glomerular Filtration Rate 58.7 mL/min (>60) Glucose Level 123 MG/DL (74-106) H Calcium Level 7.9 MG/DL (8.5-10.1) L Phosphorus Level 1.2 MG/DL (2.5-4.9) L Magnesium Level 2.5 MG/DL (1.8-2.4) H Total Bilirubin 0.4 MG/DL (0.2-1.0) Aspartate Amino Transf (AST/SGOT) 30 U/L (15-37) Alanine Aminotransferase (ALT/SGPT) 42 U/L (12-78) Alkaline Phosphatase 285 U/L (46-116) H Total Protein 6.9 G/DL (6.4-8.2) Albumin 1.2 G/DL (3.4-5.0) L Globulin 5.7 g/dL Albumin/Globulin Ratio 0.2 (1.0-2.7) L Objective HEAD AND NECK: No JVD. NRB FM LUNGS: Coarse rhonchi. CARDIOVASCULAR: Irregular S1 and S2 with no gallop. ABDOMEN: Soft. EXTREMITIES: No pitting edema. Klever Matt MD Jul 18, 2020 14:21
--- NOTE | 2020-07-18 15:00 | NUR ---
NURSE NOTES: LATE ENTRY: UA COLLECTED, CULTURES COLLECTED. COOLING BLANKET OFF. PT AFEBRILE AT RECTAL TEMP 97. PT TOLERATING VERSED AT 3MG, RASS -2. LEVOPHED AT 6MCG/MIN. WILL CONTINUE TO MONITOR.
--- NOTE | 2020-07-18 15:07 | Infectious Diseases Prog Note ---
Assessment/Plan 79yo M with: SEptic Shock Fever,r ecurrent; Leukocytosis ;recurrent ; increased; Acute hypoxic resp failure, on NRB mask> 4l NC; back on NRB, desaturation 07/09 > intubated 07/17 Pneumonia- >HAP hx of COVID19 PNA 05/20/2007/10 Sp cx MRSA (Vancomycin APOLONIA 1), ESBL E.coli 07/03 BCx NTD UA WBC, UCx Neg 07/03 COVID rapid neg; 07/06 rapid COVID PCR + (from prior infection)- not new infection Flu A/B neg CXR: L pna Resp cx MRSA Denis on CKD, improving SNF resident (ed ros[facility]) Non-verbal VRE and MRSA colonized Plan: Meropenem #/-14 for ESBL PNA add empiric Micafungin -07/17 SP IV Vancomycin #15 -07/13 SP Zosyn # -07/06 SP Cefepime # -07/04 SP Flagyl # Monitor CBC/CMP Monitor resp status Monitor temp curve and hemodynamics repeat cultures D/w RN Thank you for this consult. [facility] will continue to follow. Subjective Allergies: Coded Allergies: No Known Allergies (Unverified , 04/30/12) Tm 102.6 intubated yesterday; Fio2 50% on levophed at 6 wbc increased Objective Last 24 Hour Vital Signs Date Time Temp Pulse Resp B/P (MAP) Pulse Ox O2 Delivery O2 Flow Rate FiO2 07/18/20 13:27 86 16 50 07/18/20 12:30 83 16 90/53 (65) 98 07/18/20 12:15 78 16 103/77 (86) 100 07/18/20 12:00 Mechanical Ventilator 07/18/20 12:00 83 16 101/60 (74) 97 07/18/20 12:00 45 07/18/20 11:45 99.0 93 16 84/53 (63) 98 07/18/20 11:30 85 17 97/65 (76) 100 07/18/20 11:28 82 16 50 07/18/20 11:15 82 16 101/60 (74) 98 07/18/20 11:00 82 18 102/64 (77) 98 07/18/20 10:45 83 17 97/61 (73) 98 07/18/20 10:30 83 18 100/60 (73) 97 07/18/20 10:15 86 20 110/66 (81) 99 07/18/20 10:00 98.7 85 19 111/70 (84) 99 07/18/20 09:45 89 16 114/65 (81) 100 07/18/20 09:30 92 21 112/60 (77) 100 07/18/20 09:15 99.9 95 27 122/76 (91) 100 07/18/20 09:00 100 20 116/73 (87) 100 07/18/20 08:58 97 20 50 07/18/20 08:45 100 21 124/62 (82) 100 07/18/20 08:30 103 23 121/62 (81) 99 07/18/20 08:15 99.3 105 26 104/86 (92) 98 07/18/20 08:00 103 26 98/72 (81) 98 07/18/20 08:00 Mechanical Ventilator 07/18/20 08:00 112 07/18/20 08:00 45 07/18/20 07:43 50 07/18/20 07:36 16 Mechanical Ventilator 55 07/18/20 07:30 100.1 106 24 137/74 (95) 99 07/18/20 07:11 100 17 50 07/18/20 07:00 97 18 129/73 (91) 92 07/18/20 07:00 16 Mechanical Ventilator 55 07/18/20 06:34 112/62 07/18/20 06:30 88 16 07/18/20 06:30 88 20 112/62 (79) 99 07/18/20 06:00 101.2 88 16 120/68 (85) 99 07/18/20 06:00 16 Mechanical Ventilator 50 07/18/20 05:30 86 16 116/65 (82) 99 07/18/20 05:07 81 16 55 07/18/20 05:00 16 Mechanical Ventilator 50 07/18/20 05:00 101.4 85 16 109/62 (78) 99 07/18/20 04:30 93 16 109/63 (78) 99 07/18/20 04:00 55 07/18/20 04:00 102.6 93 16 111/65 (80) 98 07/18/20 04:00 16 Mechanical Ventilator 50 07/18/20 04:00 93 07/18/20 04:00 Mechanical Ventilator 07/18/20 03:30 97 16 106/61 (76) 98 07/18/20 03:00 16 Mechanical Ventilator 50 07/18/20 03:00 101.5 97 16 114/66 (82) 98 07/18/20 02:50 97 16 55 07/18/20 02:30 97 16 108/65 (79) 98 07/18/20 02:00 98 16 110/63 (79) 98 07/18/20 02:00 16 Mechanical Ventilator 50 07/18/20 01:30 97 16 105/64 (78) 98 07/18/20 01:05 98 16 55 07/18/20 01:00 97 16 113/63 (80) 98 07/18/20 01:00 16 Mechanical Ventilator 50 07/18/20 00:30 96 16 108/65 (79) 98 07/18/20 00:00 16 Mechanical Ventilator 50 07/18/20 00:00 99.9 98 16 108/68 (81) 98 07/18/20 00:00 Mechanical Ventilator 07/17/20 23:30 98 16 104/61 (75) 98 07/17/20 23:00 98 16 109/65 (80) 98 07/17/20 23:00 16 Mechanical Ventilator 50 07/17/20 22:42 96 16 55 07/17/20 22:30 96 16 102/63 (76) 98 07/17/20 22:00 16 Mechanical Ventilator 50 07/17/20 22:00 94 16 102/62 (75) 98 07/17/20 21:30 94 16 100/60 (73) 97 07/17/20 21:00 98 16 120/67 (84) 97 07/17/20 21:00 16 Mechanical Ventilator 50 07/17/20 20:45 100 16 92/54 (67) 95 07/17/20 20:35 96 16 55 07/17/20 20:30 91 18 128/62 (84) 98 07/17/20 20:15 108 16 90/57 (68) 95 07/17/20 20:01 86/60 07/17/20 20:01 16 Mechanical Ventilator 50 07/17/20 20:00 Mechanical Ventilator 07/17/20 20:00 108 11/6/20 20:00 55 07/17/20 20:00 99.7 108 16 86/60 (69) 95 07/17/20 19:30 109 16 90/56 (67) 96 07/17/20 19:05 107 16 55 07/17/20 19:00 107 16 90/62 (71) 97 07/17/20 19:00 16 Mechanical Ventilator 50 07/17/20 18:36 16 Mechanical Ventilator 07/17/20 17:36 16 Mechanical Ventilator 07/17/20 17:26 107 16 55 07/17/20 16:39 13 Mechanical Ventilator 07/17/20 16:30 111 19 86/61 (69) 98 07/17/20 16:15 107 16 86/54 (65) 99 07/17/20 16:00 97.5 109 17 83/55 (64) 98 07/17/20 16:00 112 07/17/20 16:00 Mechanical Ventilator 07/17/20 15:39 18 Mechanical Ventilator Height (Feet): 5 Height (Inches): 4.00 Weight (Pounds): 130 Gen: sedated, intubated CV: RRR Pulm: Rhonchi anteriorly Abd: Soft, NTND Ext: No c/c/e Laboratory Tests Test 07/18/20 03:45 07/18/20 07:39 White Blood Count 14.9 K/UL (4.8-10.8) H Red Blood Count 2.94 M/UL (4.70-6.10) L Hemoglobin 8.7 G/DL (14.2-18.0) L Hematocrit 28.4 % (42.0-52.0) L Mean Corpuscular Volume 97 FL (80-99) Mean Corpuscular Hemoglobin 29.6 PG (27.0-31.0) Mean Corpuscular Hemoglobin Concent 30.6 G/DL (32.0-36.0) L Red Cell Distribution Width 15.0 % (11.6-14.8) H Platelet Count 398 K/UL (150-450) Mean Platelet Volume 8.6 FL (6.5-10.1) Neutrophils (%) (Auto) 76.4 % (45.0-75.0) H Lymphocytes (%) (Auto) 16.7 % (20.0-45.0) L Monocytes (%) (Auto) 5.3 % (1.0-10.0) Eosinophils (%) (Auto) 1.0 % (0.0-3.0) Basophils (%) (Auto) 0.6 % (0.0-2.0) Sodium Level 149 MMOL/L (136-145) H Potassium Level 3.3 MMOL/L (3.5-5.1) L Chloride Level 112 MMOL/L (98-107) H Carbon Dioxide Level 26 MMOL/L (21-32) Anion Gap 11 mmol/L (5-15) Blood Urea Nitrogen 24 mg/dL (7-18) H Creatinine 1.2 MG/DL (0.55-1.30) Estimat Glomerular Filtration Rate 58.7 mL/min (>60) Glucose Level 123 MG/DL (74-106) H Calcium Level 7.9 MG/DL (8.5-10.1) L Phosphorus Level 1.2 MG/DL (2.5-4.9) L Magnesium Level 2.5 MG/DL (1.8-2.4) H Total Bilirubin 0.4 MG/DL (0.2-1.0) Aspartate Amino Transf (AST/SGOT) 30 U/L (15-37) Alanine Aminotransferase (ALT/SGPT) 42 U/L (12-78) Alkaline Phosphatase 285 U/L (46-116) H Total Protein 6.9 G/DL (6.4-8.2) Albumin 1.2 G/DL (3.4-5.0) L Globulin 5.7 g/dL Albumin/Globulin Ratio 0.2 (1.0-2.7) L Arterial Blood pH 7.471 (7.350-7.450) Arterial Blood Partial Pressure CO2 35.0 mmHg (35.0-45.0) Arterial Blood Partial Pressure O2 52.9 mmHg (75.0-100.0) L Arterial Blood HCO3 25.0 mmol/L (22.0-26.0) Arterial Blood Oxygen Saturation 86.8 % (95-100) *L Arterial Blood Base Excess 1.5 (-2-2) Richard Test N/a Current Medications Medications (Trade) Dose Ordered Sig/Ankush Route PRN Reason Start Time Stop Time Status Last Admin Dose Admin Acetaminophen (Tylenol) 650 mg Q4H PRN ORAL Temp >100.5 07/03/20 20:30 08/02/20 20:29 07/16/20 22:39 Chlorhexidine Gluconate (Darcy-Hex 2%) 1 applic DAILY@2000 TOPIC 07/17/20 20:00 10/15/20 19:59 07/17/20 19:59 Dextrose (Dextrose 50%) 50 ml Q30M PRN IV Hypoglycemia 07/03/20 22:45 10/01/20 22:44 Heparin Sodium (Porcine) (Heparin 5000 units/ml) 5,000 units EVERY 12 HOURS SUBQ 07/03/20 21:00 08/17/20 20:59 07/18/20 08:40 Insulin Aspart (NovoLOG) EVERY 6 HOURS SUBQ 07/13/20 06:00 10/02/20 06:29 07/17/20 01:18 Lorazepam (Ativan 2mg/ml 1ml) 2 mg Q4H PRN IV For Anxiety 07/17/20 12:45 07/24/20 12:44 Meropenem 1 gm/ Sodium Chloride 55 ml @ 110 mls/hr Q12HR@0400,1600 IVPB 07/13/20 16:00 07/22/20 23:59 07/18/20 03:12 Midazolam HCl 50 mg/Sodium Chloride 100 ml @ 0 mls/hr Q24H PRN IV Restlessness 07/17/20 13:20 07/19/20 13:19 07/18/20 07:36 Morphine Sulfate (Morphine Sulfate) 4 mg Q4H PRN IVP For Pain 07/17/20 12:45 07/24/20 12:44 Nitroglycerin (Ntg) 0.4 mg Q5M PRN SL Prn Chest Pain 07/03/20 20:30 08/02/20 20:29 Norepinephrine Bitartrate 250 ml @ 0 mls/hr Q24H IV 07/17/20 15:50 07/20/20 15:49 07/18/20 06:34 Ondansetron HCl (Zofran) 4 mg Q6H PRN IVP Nausea & Vomiting 07/03/20 20:30 08/02/20 20:29 Pantoprazole (Protonix) 40 mg DAILY IV 07/18/20 09:00 08/17/20 08:59 07/18/20 08:38 Polyethylene Glycol (Miralax) 17 gm DAILYPRN PRN ORAL Constipation 07/03/20 20:30 08/02/20 20:29 Potassium Phosphate 250 ml @ 62.5 mls/hr Q4H IVPB 07/18/20 13:00 07/18/20 20:59 07/18/20 13:26 Promethazine HCl/ Codeine (Phenergan with Codeine) 5 ml Q4H PRN ORAL For Cough 07/03/20 20:30 08/02/20 20:29 Sodium Chloride 1,000 ml @ 50 mls/hr Q20H IV 07/17/20 16:00 08/16/20 15:59 07/18/20 12:17 Tamsulosin HCl (Flomax) 0.4 mg BID ORAL 07/11/20 19:45 08/03/20 08:59 07/18/20 08:38 Ashley Cho M.D. Jul 18, 2020 15:06
--- NOTE | 2020-07-18 15:23 | Diagnostic Imaging Report ---
EXAM: XR Chest, 1 View CLINICAL HISTORY: DYSPNEA TECHNIQUE: Frontal view of the chest. COMPARISON: Chest radiograph on 07/17/2020 FINDINGS: Hardware: Endotracheal tube terminates in the mid thoracic trachea, approximately 3 cm above the lea. An enteric tube terminates in the region of the distal stomach. Lungs/pleura: Decreased bibasilar opacities. Small bilateral pleural effusions. Emphysematous changes. Heart/mediastinum: Normal. No cardiomegaly. Soft tissues: Unremarkable. Bones: No acute fracture. Right shoulder replacement again noted Upper abdomen: Normal. IMPRESSION: Decreased bibasilar opacities. Small bilateral pleural effusions. Endotracheal tube terminates in the mid thoracic trachea, approximately 3 cm above the lea. An enteric tube terminates in the region of the distal stomach.
--- NOTE | 2020-07-18 16:36 | Internal Med Progress Note ---
Subjective Date of Service: Jul 18, 2020 Physician Name Dano Groves Attending Physician Ahsan Hodges MD Current Medications Medications (Trade) Dose Ordered Sig/Ankush Route PRN Reason Start Time Stop Time Status Last Admin Dose Admin Acetaminophen (Tylenol) 650 mg Q4H PRN ORAL Temp >100.5 07/03/20 20:30 08/02/20 20:29 07/16/20 22:39 Chlorhexidine Gluconate (Darcy-Hex 2%) 1 applic DAILY@2000 TOPIC 07/17/20 20:00 10/15/20 19:59 07/17/20 19:59 Dextrose (Dextrose 50%) 50 ml Q30M PRN IV Hypoglycemia 07/03/20 22:45 10/01/20 22:44 Heparin Sodium (Porcine) (Heparin 5000 units/ml) 5,000 units EVERY 12 HOURS SUBQ 07/03/20 21:00 08/17/20 20:59 07/18/20 08:40 Insulin Aspart (NovoLOG) EVERY 6 HOURS SUBQ 07/13/20 06:00 10/02/20 06:29 07/17/20 01:18 Lorazepam (Ativan 2mg/ml 1ml) 2 mg Q4H PRN IV For Anxiety 07/17/20 12:45 07/24/20 12:44 Meropenem 1 gm/ Sodium Chloride 55 ml @ 110 mls/hr Q12HR@0400,1600 IVPB 07/13/20 16:00 07/22/20 23:59 07/18/20 03:12 Micafungin Sodium 100 mg/Sodium Chloride 110 ml @ 110 mls/hr Q24H IVPB 07/18/20 16:00 07/25/20 15:59 Midazolam HCl 50 mg/Sodium Chloride 100 ml @ 0 mls/hr Q24H PRN IV Restlessness 07/17/20 13:20 07/19/20 13:19 07/18/20 07:36 Morphine Sulfate (Morphine Sulfate) 4 mg Q4H PRN IVP For Pain 07/17/20 12:45 07/24/20 12:44 Nitroglycerin (Ntg) 0.4 mg Q5M PRN SL Prn Chest Pain 07/03/20 20:30 08/02/20 20:29 Norepinephrine Bitartrate 250 ml @ 0 mls/hr Q24H IV 07/17/20 15:50 07/20/20 15:49 07/18/20 06:34 Ondansetron HCl (Zofran) 4 mg Q6H PRN IVP Nausea & Vomiting 07/03/20 20:30 08/02/20 20:29 Pantoprazole (Protonix) 40 mg DAILY IV 07/18/20 09:00 08/17/20 08:59 07/18/20 08:38 Polyethylene Glycol (Miralax) 17 gm DAILYPRN PRN ORAL Constipation 07/03/20 20:30 08/02/20 20:29 Potassium Phosphate 250 ml @ 62.5 mls/hr Q4H IVPB 07/18/20 13:00 07/18/20 20:59 07/18/20 13:26 Promethazine HCl/ Codeine (Phenergan with Codeine) 5 ml Q4H PRN ORAL For Cough 07/03/20 20:30 08/02/20 20:29 Sodium Chloride 1,000 ml @ 50 mls/hr Q20H IV 07/17/20 16:00 08/16/20 15:59 07/18/20 12:17 Tamsulosin HCl (Flomax) 0.4 mg BID ORAL 07/11/20 19:45 08/03/20 08:59 07/18/20 08:38 Allergies: Coded Allergies: No Known Allergies (Unverified , 04/30/12) ROS Limited/Unobtainable: Yes Subjective 79 YO M admitted with shortness of breath. Now pneumonia; previously COVID positive. Cover for Int med-Dr Hodges. ICU. Intubated and sedated Objective Last Vital Signs Date Time Temp Pulse Resp B/P (MAP) Pulse Ox O2 Delivery O2 Flow Rate FiO2 07/18/20 15:51 78 07/18/20 13:27 16 50 07/18/20 12:30 90/53 (65) 98 07/18/20 12:00 Mechanical Ventilator 07/18/20 11:45 99.0 07/17/20 12:00 15.0 Laboratory Tests Test 07/18/20 03:45 07/18/20 07:39 White Blood Count 14.9 K/UL (4.8-10.8) H Red Blood Count 2.94 M/UL (4.70-6.10) L Hemoglobin 8.7 G/DL (14.2-18.0) L Hematocrit 28.4 % (42.0-52.0) L Mean Corpuscular Volume 97 FL (80-99) Mean Corpuscular Hemoglobin 29.6 PG (27.0-31.0) Mean Corpuscular Hemoglobin Concent 30.6 G/DL (32.0-36.0) L Red Cell Distribution Width 15.0 % (11.6-14.8) H Platelet Count 398 K/UL (150-450) Mean Platelet Volume 8.6 FL (6.5-10.1) Neutrophils (%) (Auto) 76.4 % (45.0-75.0) H Lymphocytes (%) (Auto) 16.7 % (20.0-45.0) L Monocytes (%) (Auto) 5.3 % (1.0-10.0) Eosinophils (%) (Auto) 1.0 % (0.0-3.0) Basophils (%) (Auto) 0.6 % (0.0-2.0) Sodium Level 149 MMOL/L (136-145) H Potassium Level 3.3 MMOL/L (3.5-5.1) L Chloride Level 112 MMOL/L (98-107) H Carbon Dioxide Level 26 MMOL/L (21-32) Anion Gap 11 mmol/L (5-15) Blood Urea Nitrogen 24 mg/dL (7-18) H Creatinine 1.2 MG/DL (0.55-1.30) Estimat Glomerular Filtration Rate 58.7 mL/min (>60) Glucose Level 123 MG/DL (74-106) H Calcium Level 7.9 MG/DL (8.5-10.1) L Phosphorus Level 1.2 MG/DL (2.5-4.9) L Magnesium Level 2.5 MG/DL (1.8-2.4) H Total Bilirubin 0.4 MG/DL (0.2-1.0) Aspartate Amino Transf (AST/SGOT) 30 U/L (15-37) Alanine Aminotransferase (ALT/SGPT) 42 U/L (12-78) Alkaline Phosphatase 285 U/L (46-116) H Total Protein 6.9 G/DL (6.4-8.2) Albumin 1.2 G/DL (3.4-5.0) L Globulin 5.7 g/dL Albumin/Globulin Ratio 0.2 (1.0-2.7) L Arterial Blood pH 7.471 (7.350-7.450) Arterial Blood Partial Pressure CO2 35.0 mmHg (35.0-45.0) Arterial Blood Partial Pressure O2 52.9 mmHg (75.0-100.0) L Arterial Blood HCO3 25.0 mmol/L (22.0-26.0) Arterial Blood Oxygen Saturation 86.8 % (95-100) *L Arterial Blood Base Excess 1.5 (-2-2) Richard Test N/a Intake and Output 07/17/20 07/18/20 19:00 07:00 Intake Total 206.4 ml 901.000 ml Output Total 165 ml 330 ml Balance 41.4 ml 571.000 ml IV Total 206.4 ml 901.000 ml Output Urine Total 165 ml 330 ml # Bowel Movements 3 Objective PHYSICAL EXAMINATION: GENERAL: The patient awake with deep stimuli, open his eyes, however, cannot follow commands. The patient is on a Ventimask at this time, chronically ill-appearing. HEAD AND NECK: Pupils are equal and reactive to light. Anicteric. NECK: Supple. No JVD. LUNGS: Mech vent; wheezing, rhonchi, and decreased air in bases. HEART: S1, S2. Regular rhythm. Distant heart sounds. No murmur or gallop. ABDOMEN: Soft, nondistended, nontender. Positive bowel sounds. EXTREMITIES: No cyanosis, clubbing, or edema. NEUROLOGIC: Very limited secondary to the patient's status, cannot follow commands. Opens his eyes with deep stimuli and moving extremities spontaneously. Assessment/Plan Assessment/Plan ASSESSMENT: 1. Acute hypoxemic respiratory failure, most likely secondary to pneumonia and sepsis. 2. Sepsis secondary to urinary tract infection and pneumonia. 3. pneumonia=MRSA; ESBL E. coli 4. Acute kidney injury on chronic renal insufficiency. 5. Dehydration. 6. History of chronic congestive heart failure. 7. Diabetes type 2. 8. Dyslipidemia. 9. Hypertension. 10. Alzheimer's disease. 11. COVID 19 previous positive PLAN: 1. ICU 2. Dr. Carreno,=Pulmonary Critical Care; follow mech vent recs 3. Dr. Cho = Inf Dis. 4. IV= D5W due to the hypernatremia and dehydration. 5. antibiotics = micafungin and meropenem 6. Code status is full code. 7. DVT prophylaxis is heparin subcutaneous. Dano Groves MD Jul 18, 2020 16:36
[2020-07-18] MEDS: Micafungin 100 MG in NS 110 ML IVPB SCH (16:40)
--- NOTE | 2020-07-18 17:23 | NUR ---
NURSE NOTES: 123 Addendum: 07/18/20 at 1941 by Betsey Griffith RN CALLED MD HCAVES, REGARDING PT DIET. ORDER TO RESUME FEEDING. GLUCERNA 1.2 GOAL RATE 60
[2020-07-18 18:39] LABS: APPEARANCE,URINE CLEAR; BILIRUBIN, URINE NEGATIVE (NEGATIVE); COLOR,URINE PALE YELLOW; GLUCOSE, URINE (UA) NEGATIVE (NEGATIVE); KETONES,URINE 2+ (NEGATIVE); LEUKOCYTE ESTERASE ,URINE NEGATIVE (NEGATIVE); NITRITE,URINE NEGATIVE (NEGATIVE); PH,URINE 8 (4.5-8.0); PROTEIN,URINE 2+ (NEGATIVE); UROBILINOGEN,URINE NORMAL MG/DL (0.0-1.0)
--- NOTE | 2020-07-18 19:30 | NUR ---
NURSE NOTES: Received report from FLORES Griffith. Pt is resting on the bed and Sedated and RASS score -2. Pt has ETT and orally intubated and Vent dependent and setting with AC: 16, T: 600, P:0, FiO2 45% and SaO2 99-100% noted. Given suction and oral care. on director cardiac with SR. Pt has NGT and on running with Glucerna 1.2 @ 20cc/hr and goal is 60cc/hr. No residual noted. Pt has Wiley cath and patent and drainage well. Pt has bilateral soft restraint. checked comfort and circulation. Trying to release restraint when during care but Pt trying to touch ETT. No fever noted. wound dressing is clean and dry. Pt has Femoral TLC and dressing is clean and dry. On running with Versed @ 3mg/hr(6cc/hr), Levophed drip @ 4mcg/min and 1/2NS @ 50cc/hr. Placed fall precaution. Proper isolation for COVID-19. Will continue to care plan.
--- NOTE | 2020-07-18 19:41 | NUR ---
NURSE HAND-OFF REPORT: Latest Vital Signs: Temperature 95.9 , Pulse 70 , B/P 101 /44 , Respiratory Rate 16 , O2 SAT 100 , Mechanical Ventilator, O2 Flow Rate . Vital Sign Comment: EKG Rhythm: Sinus Rhythm Rhythm change?: N Notified?: Grecia Matt MD Response: Latest Gonzalez Fall Score: 70 Fall Risk: High Risk Safety Measures: Call light Within Reach, Bed Alarm Zone 2, Side Rails Side Rails x3, Bed position Low and Locked. Fall Precautions: Yellow Socks Yellow Gown Door Sign Patient Fall Education Report given to DYLAN Whalen [employer]
[2020-07-18] MEDS: Dyna-Hex 2% Top Sol 2oz TOPIC SCH (19:55)
--- NOTE | 2020-07-18 20:00 | NUR ---
NURSE NOTES: Noted BP : 140/68mmHg. Levophed drip @ 3mcg/min as titrate. Will continue to monitor any change of condition.
[2020-07-18] MEDS ORDERED: NS 275ml ONE (21:04)
--- NOTE | 2020-07-18 22:00 | NUR ---
NURSE NOTES: Pt is sedated on the bed. SaO2 100% with Current Vent setting. Tolerated well NGT feeding and no residual noted. On monitoring coordinator with SR. Noted BP :100/52mmHg. On running with Levophed drip @ 3mcg/min and Versed @ 3mg/hr(6cc/hr) and RASS score -2. Changed position. Will continue to monitor any change of condition.
[2020-07-19] VITALS (50 sets, daily range): BP systolic 84–153; BP diastolic 46–79
--- NOTE | 2020-07-19 | NUR ---
NURSE NOTES: Pt is sedated on the bed and RASS -2 and on running with Versed @ 3mg/hr(6cc/hr). BT checked 99.1F . Keep cooing measure. SaO2 99% with Current Vent setting. Given suction and oral care. Tolerated well with NGT feeding and no residual noted. Increase NGT feeding @ 30cc/hr. Changed position. On running with Levophed drip @ 3mcg/min and BP is stable. Placed fall precaution. Will continue to monitor any change of condition.
[2020-07-19] MEDS: Midazolam for drip 50 MG in NS 90 ML IV PRN ×2 (01:02→14:17)
--- NOTE | 2020-07-19 02:00 | NUR ---
NURSE NOTES: Given oral care and suction. Repositioned Pt. on environmental monitoring specialist with SR and SAO2 99-100% with Vent. Will continue to monitor any change of condition.
[2020-07-19] MEDS: Meropenem 1 GM in NS 55 ML IVPB SCH ×2 (03:19→16:23)
--- NOTE | 2020-07-19 04:00 | NUR ---
NURSE NOTES: Morning care was done. Given bed bath. Cleaned Pt and applied lotion and cream. BT checked 99.2F . Keep cooing measure with cooling blanket. Tolerated well with NGT feeding and SaO2 99-100% with Vent setting. Given suction and oral care. Pt is sedated and RASS -2 and on running with Versed @ 3mg/hr(6cc/hr) and Levophed drip @ 3mcg/min as titrate. Collected blood sample. Placed fall precaution. Will continue to monitor any change of condition.
--- NOTE | 2020-07-19 05:00 | NUR ---
NURSE NOTES: Noted BP 133/69mmHg. on cardiac nurse with SR. Decrease Levophed drip @ 2mcg/min. Will continue to monitor any change of condition.
[2020-07-19 05:12] LABS: EOSINOPHILS % (AUTO) 1.6 % (0.0-3.0); HEMATOCRIT 28.8 % (42.0-52.0); HEMOGLOBIN 8.9 G/DL (14.2-18.0); LYMPHOCYTES % (AUTO) 14.1 % (20.0-45.0); MEAN CORPUSCULAR VOLUME 97 FL (80-99); MONOCYTES % (AUTO) 8.7 % (1.0-10.0); NEUTROPHILS % (AUTO) 73.6 % (45.0-75.0); PLATELET COUNT 370 K/UL (150-450); RED BLOOD COUNT 2.97 M/UL (4.70-6.10); RED CELL DISTRIBUTION WIDTH 15.4 % (11.6-14.8); WHITE BLOOD COUNT 9.4 K/UL (4.8-10.8)
[2020-07-19 05:43] LABS: ALANINE AMINOTRANSFERASE 27 U/L (12-78); ALBUMIN 1.5 G/DL (3.4-5.0); ALBUMIN/GLOBULIN RATIO 0.3 (1.0-2.7); ALKALINE PHOSPHATASE 230 U/L (46-116); ASPARTATE AMINO TRANSFERASE 32 U/L (15-37); BILIRUBIN,TOTAL 0.4 MG/DL (0.2-1.0); BLOOD UREA NITROGEN 18 mg/dL (7-18); CALCIUM 7.6 MG/DL (8.5-10.1); CHLORIDE 111 MMOL/L (98-107); CREATININE 1.1 MG/DL (0.55-1.30); POTASSIUM 3.3 MMOL/L (3.5-5.1); SODIUM 146 MMOL/L (136-145)
[2020-07-19 05:51] LABS: CARBON DIOXIDE 25 MMOL/L (21-32); PHOSPHORUS 2.9 MG/DL (2.5-4.9)
[2020-07-19] MEDS: NovoLOG Insulin Flexpen SUBQ SCH ×4 (06:00→18:00)
--- NOTE | 2020-07-19 07:36 | NUR ---
NURSE HAND-OFF REPORT: Latest Vital Signs: Temperature 99.2 , Pulse 71 , B/P 112 /79 , Respiratory Rate 16 , O2 SAT 99 , Mechanical Ventilator, EKG Rhythm: Sinus Rhythm Rhythm change?: N Latest Gonzalez Fall Score: 70 Fall Risk: High Risk Safety Measures: Call light Within Reach, Bed Alarm Zone 2, Side Rails Side Rails x3, Bed position Low and Locked. Fall Precautions: Yellow Socks Yellow Gown Door Sign Patient Fall Education Report given to FLORES Walkre. Pt is sedated on the bed and RASS -2 and on running Versed @ 3mg/hr and Levophed @ 2mcg/min. Tolerated well NGT feeding and running with Glucerna 1.2@ 40cc/hr.
--- NOTE | 2020-07-19 08:20 | NUR ---
NURSE NOTES: report received from FLORES Gallagher. patient is noted to be sedated to rass scale of -2 using versed at 3mg/hr at rate of 6ml/hr. he is intubated with ventilator setting of ac 16, tv: 600, fio2 of 45% and is currently saturating at 99-100%. there is tube feeding running through the right ng-tube at rate of 40ml/hr. NG-tube is at approximately 65-66cm at the opening of the nares. the patient has a bed mattress to prevent further skin deterioration of the sacral region. the right femoral TLC is clean and dry with all lumens patent and flushing well. the dressing is dry with no oozing noted. heppa filter is installed in the room and circulating the air. Levophed is running at 2mcg/min to support blood pressure. X-ray being taken and patient tolerating the entire procedure with no sob or symptoms of desaturating.
[2020-07-19] MEDS: Pantoprazole Inj IV SCH (08:21)
[2020-07-19] MEDS: Tamsulosin 0.4mg cap ORAL SCH ×2 (08:21→17:51)
[2020-07-19] MEDS: Heparin 5000 units/ml inj SUBQ SCH ×2 (08:24→20:58)
--- NOTE | 2020-07-19 09:05 | NUR ---
NURSE NOTES: Levophed titrated up to 4mcg/min due to bp being 84/48. heart rate remains at 74-85 in sinus rhythm. Morgan odell is conducting rounds and updated on patient progress at the bedside. also notified the ABG sample has been obtained and sent for analysis. he is intubated using a 7.5 et-tube at 25cm with ventilator setting of Ac16, Tv: 600, and FIO2 of 45% tube feeding remains at 40ml/hr with 10mls of residual. he is sedated using versed at 3mg/hr at rate of 6ml/hr. he is at RASS score of -2, he responds with light movement when providing tactile stimulus, Wiley remains draining clear straw urine.
--- NOTE | 2020-07-19 09:25 | NUR ---
NURSE NOTES: Dr. Connors updated of patient urinary status with bun and creatinine levels are decreasing from the previous day. potassium chloride 20meq one dose hung is running through right femoral line. no additional orders given at this time.
--- NOTE | 2020-07-19 09:36 | Diagnostic Imaging Report ---
EXAM: XR Chest, 1 View CLINICAL HISTORY: Shortness of breath TECHNIQUE: Frontal view of the chest. COMPARISON: Chest x-rays dated 07/18/20, 07/17/20, 07/16/20. FINDINGS: Lungs: Persistent bilateral patchy pulmonary opacities, most prominent in the left lower lung. Pleural space: Possible tiny bilateral pleural effusions, unchanged. Heart: Unremarkable. No cardiomegaly. Mediastinum: Unremarkable. Bones/joints: Patient is status post right shoulder replacement. Tubes, lines and devices: Endotracheal tube tip 2.9 cm above the lea. Telemetry leads overlie the thorax. IMPRESSION: No significant interval change from the prior day's chest x-ray.
--- NOTE | 2020-07-19 10:00 | Pulmonolgy Critical Care Note ---
Critical Care - Asmt/Plan Assessment/Plan: ASSESSMENT Acute hypoxemic respiratory failure , requiring intubation ( initially 100% NRM) Sepsis Pneumonia , possible aspiration Probable UTI Hx of COVID 19 05/20/20Dysphagia MELANIE-resolved Hypernatremia History of CVA Diabetes mellitus History of hypertension Alzheimer dementia PLAN OF CARE ICU vent support pulm toilet fup with CXR and ABG ABG this am noted, decrease AC rate to 14. repeat ABG in am sedation pressor, titrate to keep mean arterial BP > 65 rapid COVID-19 and influenza swab both NGT 07/03 rapid COVID 07/06 +, likely old infection as per ID SCX 07/10-> MRSA, E coli ESBL UCX 07/03 -> NGT BCX 07/13 NGTD abx as per ID recs, added Micafungin 07/18 leuk resolved this am DVT and GI prophylaxis a/tussive prn NG tube for meds strict aspiration precaution gentle IVF monitor renal parameters, lytes , correct electrolytes as needed ,avoid nephrotoxic K replaced this am already as per nephro creatinine down to normal ECHO with pEF 55%, monitor volumes BS management with SSI supportive care remains FC case discussed and evaluated by supervising physician Critical Care - Objective Last 24 Hour Vital Signs Date Time Temp Pulse Resp B/P (MAP) Pulse Ox O2 Delivery O2 Flow Rate FiO2 07/19/20 09:15 80 16 153/76 (101) 99 07/19/20 09:00 79 16 84/48 (60) 98 07/19/20 08:30 70 16 113/55 (74) 99 07/19/20 08:00 70 07/19/20 08:00 45 07/19/20 08:00 98.3 69 16 119/65 (83) 98 07/19/20 07:30 75 16 113/63 (80) 99 07/19/20 07:00 71 16 112/79 (90) 99 07/19/20 07:00 16 Mechanical Ventilator 45 07/19/20 06:45 69 16 45 07/19/20 06:30 71 16 123/70 (87) 99 07/19/20 06:30 71 16 07/19/20 06:00 15 Mechanical Ventilator 45 07/19/20 06:00 69 15 108/63 (78) 99 07/19/20 05:30 73 16 113/66 (82) 99 07/19/20 05:00 74 17 133/69 (90) 100 07/19/20 05:00 16 Mechanical Ventilator 45 07/19/20 04:30 75 16 137/71 (93) 100 07/19/20 04:00 45 07/19/20 04:00 Mechanical Ventilator 07/19/20 04:00 99.2 73 16 126/63 (84) 98 07/19/20 04:00 16 Mechanical Ventilator 45 07/19/20 04:00 84 07/19/20 03:30 83 16 102/50 (67) 96 07/19/20 03:00 16 Mechanical Ventilator 45 07/19/20 03:00 84 16 103/52 (69) 97 07/19/20 02:30 76 16 98/59 (72) 99 07/19/20 02:30 80 17 45 07/19/20 02:00 72 16 107/59 (75) 99 07/19/20 02:00 16 Mechanical Ventilator 45 07/19/20 01:30 73 17 129/63 (85) 100 07/19/20 01:02 16 Mechanical Ventilator 45 07/19/20 01:00 19 Mechanical Ventilator 45 07/19/20 01:00 79 19 121/58 (79) 100 07/19/20 00:30 75 15 120/54 (76) 100 07/19/20 00:00 99.1 69 16 97/51 (66) 100 07/19/20 00:00 45 07/19/20 00:00 16 Mechanical Ventilator 45 07/19/20 00:00 Mechanical Ventilator 07/19/20 00:00 73 07/18/20 23:30 73 16 112/52 (72) 100 07/18/20 23:00 74 16 107/49 (68) 100 07/18/20 23:00 16 Mechanical Ventilator 45 07/18/20 22:30 71 16 99/53 (68) 99 07/18/20 22:30 74 16 45 07/18/20 22:00 16 Mechanical Ventilator 45 07/18/20 22:00 71 16 100/52 (68) 100 07/18/20 21:30 70 16 115/54 (74) 100 07/18/20 21:00 66 16 123/57 (79) 100 07/18/20 21:00 16 Mechanical Ventilator 45 07/18/20 20:30 97.9 72 16 92/57 (69) 100 07/18/20 20:00 67 16 140/68 (92) 100 07/18/20 20:00 16 Mechanical Ventilator 45 07/18/20 20:00 Mechanical Ventilator 07/18/20 20:00 45 07/18/20 20:00 66 07/18/20 19:30 61 16 134/63 (86) 100 07/18/20 19:00 67 16 119/68 (85) 100 07/18/20 19:00 16 Mechanical Ventilator 45 07/18/20 18:30 70 16 45 07/18/20 17:38 101/44 07/18/20 17:14 72 21 45 07/18/20 17:00 65 16 132/78 (96) 100 07/18/20 16:45 70 17 132/69 (90) 95 07/18/20 16:30 76 20 118/50 (72) 100 07/18/20 16:15 75 22 159/79 (105) 100 07/18/20 16:00 45 07/18/20 16:00 Mechanical Ventilator 07/18/20 16:00 78 07/18/20 16:00 95.9 69 19 100 07/18/20 15:19 73 21 45 07/18/20 13:27 86 16 50 07/18/20 12:30 83 16 90/53 (65) 98 07/18/20 12:15 78 16 103/77 (86) 100 07/18/20 12:00 Mechanical Ventilator 07/18/20 12:00 89 07/18/20 12:00 83 16 101/60 (74) 97 07/18/20 12:00 45 07/18/20 11:45 99.0 93 16 84/53 (63) 98 07/18/20 11:30 85 17 97/65 (76) 100 07/18/20 11:28 82 16 50 07/18/20 11:15 82 16 101/60 (74) 98 07/18/20 11:00 82 18 102/64 (77) 98 07/18/20 10:45 83 17 97/61 (73) 98 07/18/20 10:30 83 18 100/60 (73) 97 07/18/20 10:15 86 20 110/66 (81) 99 07/18/20 10:00 98.7 85 19 111/70 (84) 99 Objective: General Appearance: no apparent distress, sedated, intubated Lines, tubes and drains: R femoral CL TL intact HEENT: normocephalic, atraumatic, anicteric, NGT , OP with ET in place, intact Respiratory/Chest: few scattered rhonchi Cardiovascular/Chest: normal peripheral pulses, SR Abdomen: normal bowel sounds, non tender, soft : Wiley Extremities: no calf tenderness, normal capillary refill Neurologic: abnormal gait /bedridden Musculoskeletal: atrophy - BLE Micro: Microbiology Date/Time Source Procedure Growth Status 07/18/20 22:56 Sputum Expectorated Gram Stain - Final Resulted 07/18/20 22:56 Sputum Expectorated Sputum Culture Pending Resulted Accucheck: 124 Critical Care - Subjective ROS Limited/Unobtainable: Yes Interval Events: leuk resolved today ABG this am noted remains on Levo, titrated down sedated Micafungin added to existing abx regimen as per ID 07/18 K-3.3 IV Access: central - R femoral CL intact FI02: 45 Vent Support Breath Rate: 16 Vent Support Mode: AC Vent Tidal Volume: 600 Sputum Amount: Moderate PEEP: 0.0 PIP: 16 Fluids: 1/2 NS at 50 Drips: Levophed 2 ncg/min, Versed 3 mg/hr Tube Feeding Amount: 40 I&O: Intake and Output 07/18/20 07/19/20 19:00 07:00 Intake Total 1462.5 ml 1108.05 ml Output Total 65 ml 390 ml Balance 1397.5 ml 718.05 ml IV Total 1432.5 ml 798.05 ml Tube Feeding 30 ml 310 ml Output Urine Total 65 ml 390 ml CXR: CXR 07/19 Lungs: Persistent bilateral patchy pulmonary opacities, most prominent in the left lower lung. Pleural space: Possible tiny bilateral pleural effusions, unchanged. Heart: Unremarkable. No cardiomegaly. Mediastinum: Unremarkable. Bones/joints: Patient is status post right shoulder replacement. Tubes, lines and devices: Endotracheal tube tip 2.9 cm above the lea. Telemetry leads overlie the thorax. ET-Tube: 7.5 ET Position: 25 Yari Baugh OTOLARYNGOLOGY REP Jul 19, 2020 10:00
--- NOTE | 2020-07-19 10:21 | Nephrology Progress Note ---
Assessment/Plan Problem List: (1) Dehydration (2) MELANIE (acute kidney injury) (3) Renal failure (ARF), acute on chronic (4) Hypoxia (5) Acute encephalopathy (6) Electrolyte imbalance Assessment 79-year-old male is admitted with acute hypoxic respiratory failure most likely secondary to pneumonia and sepsis, UTI. Acute on chronic renal failure Dehydration Electrolyte imbalances, hypernatremia Hypoalbuminemia Diabetes type 2 History of congestive heart failure Hypertension Hyperlipemia Alzheimer's Previous COVID-19 infection in May 2020 Plan July 19: In ICU. Remains intubated on ventilator. Remains full code. Low potassium addressed. Blood pressure fluctuating. Continue per consultants. July 18: Patient in ICU. Intubated on ventilator. On 6 mics of Levophed. Will give 100 cc albumin 25%. K-Phos IV ordered. Continue per consultants. Continue monitor renal parameters and electrolytes. July 17: Status unchanged. Transfer to [facility] for seizure. Stable from renal standpoint to view. Continue per consultants. July 16: Status quo. Labs reviewed. Renal parameters stable. Continue per consultants. July 15: On nonrebreather mask. Labs reviewed. Renal parameters stable.Continue per animal ecologist. Clinically unchanged. July 14: On nonrebreather mask. Inflammatory markers gradually declining. Renal parameters stable. Continue per pulmonary. July 13: Remains on nonrebreather mask. Inflammatory markers remain elevated. Renal parameters somewhat stable. Continue per pulmonary and ID. Remains full code. July 12: Patient on nonrebreather mask. Labs noted. Serum creatinine down to 1.3. Continue per consultants. July 11: Patient on nonrebreather mask. Transfer to telemetry when seen this morning. Labs noted. Continue per consultants. Serum creatinine erin to 1.7. Continue to monitor renal parameters. Continue to monitor vancomycin level July 10: Patient is not doing well clinically. Mild respiratory distress. ABG noted. Somewhat hypoxic. CBC and chemistry panel ordered. Discussed with FLORES Cho. Will defer to pulmonary management to specialist. Continue per ID. Renal parameters remained stable as of July 09. July 09: Labs reviewed. Renal parameters stable. Continue per consultants. July 08: Labs reviewed. Potassium via NG tube ordered. IV fluids stopped. Continue per consultants. July 07: Labs reviewed. Low potassium and low phosphorus replaced. Continue per consultants. Remains stable from renal standpoint of view. October 26: Patient remains n.p.o. IV fluid down to 50 cc an hour. Potassium supplement intravenously ordered. Continue per consultants. Previously: Patient is n.p.o., will continue on IV fluid of D5W 75 cc an hour We will monitor electrolytes and renal parameters Avoid nephrotoxic's Start p.o. when he clears by speech therapist, meanwhile aspiration precautions Keep the blood pressure and blood sugar in check Per orders Subjective ROS Limited/Unobtainable: Yes Objective Objective Last 24 Hour Vital Signs Date Time Temp Pulse Resp B/P (MAP) Pulse Ox O2 Delivery O2 Flow Rate FiO2 07/19/20 09:15 80 16 153/76 (101) 99 07/19/20 09:00 79 16 84/48 (60) 98 07/19/20 08:30 70 16 113/55 (74) 99 07/19/20 08:00 70 07/19/20 08:00 45 07/19/20 08:00 98.3 69 16 119/65 (83) 98 07/19/20 07:30 75 16 113/63 (80) 99 07/19/20 07:00 71 16 112/79 (90) 99 07/19/20 07:00 16 Mechanical Ventilator 45 07/19/20 06:45 69 16 45 07/19/20 06:30 71 16 123/70 (87) 99 07/19/20 06:30 71 16 07/19/20 06:00 15 Mechanical Ventilator 45 07/19/20 06:00 69 15 108/63 (78) 99 07/19/20 05:30 73 16 113/66 (82) 99 07/19/20 05:00 74 17 133/69 (90) 100 07/19/20 05:00 16 Mechanical Ventilator 45 07/19/20 04:30 75 16 137/71 (93) 100 07/19/20 04:00 45 07/19/20 04:00 Mechanical Ventilator 07/19/20 04:00 99.2 73 16 126/63 (84) 98 07/19/20 04:00 16 Mechanical Ventilator 45 07/19/20 04:00 84 07/19/20 03:30 83 16 102/50 (67) 96 07/19/20 03:00 16 Mechanical Ventilator 45 07/19/20 03:00 84 16 103/52 (69) 97 07/19/20 02:30 76 16 98/59 (72) 99 07/19/20 02:30 80 17 45 07/19/20 02:00 72 16 107/59 (75) 99 07/19/20 02:00 16 Mechanical Ventilator 45 07/19/20 01:30 73 17 129/63 (85) 100 07/19/20 01:02 16 Mechanical Ventilator 45 07/19/20 01:00 19 Mechanical Ventilator 45 07/19/20 01:00 79 19 121/58 (79) 100 07/19/20 00:30 75 15 120/54 (76) 100 07/19/20 00:00 99.1 69 16 97/51 (66) 100 07/19/20 00:00 45 07/19/20 00:00 16 Mechanical Ventilator 45 07/19/20 00:00 Mechanical Ventilator 07/19/20 00:00 73 07/18/20 23:30 73 16 112/52 (72) 100 07/18/20 23:00 74 16 107/49 (68) 100 07/18/20 23:00 16 Mechanical Ventilator 45 07/18/20 22:30 71 16 99/53 (68) 99 07/18/20 22:30 74 16 45 07/18/20 22:00 16 Mechanical Ventilator 45 07/18/20 22:00 71 16 100/52 (68) 100 07/18/20 21:30 70 16 115/54 (74) 100 07/18/20 21:00 66 16 123/57 (79) 100 07/18/20 21:00 16 Mechanical Ventilator 45 07/18/20 20:30 97.9 72 16 92/57 (69) 100 07/18/20 20:00 67 16 140/68 (92) 100 07/18/20 20:00 16 Mechanical Ventilator 45 07/18/20 20:00 Mechanical Ventilator 07/18/20 20:00 45 07/18/20 20:00 66 07/18/20 19:30 61 16 134/63 (86) 100 07/18/20 19:00 67 16 119/68 (85) 100 07/18/20 19:00 16 Mechanical Ventilator 45 07/18/20 18:30 70 16 45 07/18/20 17:38 101/44 07/18/20 17:14 72 21 45 07/18/20 17:00 65 16 132/78 (96) 100 07/18/20 16:45 70 17 132/69 (90) 95 07/18/20 16:30 76 20 118/50 (72) 100 07/18/20 16:15 75 22 159/79 (105) 100 07/18/20 16:00 45 07/18/20 16:00 Mechanical Ventilator 07/18/20 16:00 78 07/18/20 16:00 95.9 69 19 100 07/18/20 15:19 73 21 45 07/18/20 13:27 86 16 50 07/18/20 12:30 83 16 90/53 (65) 98 07/18/20 12:15 78 16 103/77 (86) 100 07/18/20 12:00 Mechanical Ventilator 07/18/20 12:00 89 07/18/20 12:00 83 16 101/60 (74) 97 07/18/20 12:00 45 07/18/20 11:45 99.0 93 16 84/53 (63) 98 07/18/20 11:30 85 17 97/65 (76) 100 07/18/20 11:28 82 16 50 07/18/20 11:15 82 16 101/60 (74) 98 07/18/20 11:00 82 18 102/64 (77) 98 07/18/20 10:45 83 17 97/61 (73) 98 07/18/20 10:30 83 18 100/60 (73) 97 Intake and Output 07/18/20 07/19/20 19:00 07:00 Intake Total 1462.5 ml 1108.05 ml Output Total 65 ml 390 ml Balance 1397.5 ml 718.05 ml IV Total 1432.5 ml 798.05 ml Tube Feeding 30 ml 310 ml Output Urine Total 65 ml 390 ml Current Medications Medications (Trade) Dose Ordered Sig/Ankush Route PRN Reason Start Time Stop Time Status Last Admin Dose Admin Acetaminophen (Tylenol) 650 mg Q4H PRN ORAL Temp >100.5 07/03/20 20:30 08/02/20 20:29 07/16/20 22:39 Chlorhexidine Gluconate (Darcy-Hex 2%) 1 applic DAILY@1999 TOPIC 07/17/20 20:00 10/15/20 19:59 07/18/20 19:55 Dextrose (Dextrose 50%) 50 ml Q30M PRN IV Hypoglycemia 07/03/20 22:45 10/01/20 22:44 Heparin Sodium (Porcine) (Heparin 5000 units/ml) 5,000 units EVERY 12 HOURS SUBQ 07/03/20 21:00 08/17/20 20:59 07/19/20 08:24 Insulin Aspart (NovoLOG) EVERY 6 HOURS SUBQ 07/13/20 06:00 10/02/20 06:29 07/17/20 01:18 Lorazepam (Ativan 2mg/ml 1ml) 2 mg Q4H PRN IV For Anxiety 07/17/20 12:45 07/24/20 12:44 Meropenem 1 gm/ Sodium Chloride 55 ml @ 110 mls/hr Q12HR@0400,1600 IVPB 07/13/20 16:00 07/22/20 23:59 07/19/20 03:19 Micafungin Sodium 100 mg/Sodium Chloride 110 ml @ 110 mls/hr Q24H IVPB 07/18/20 16:00 07/25/20 15:59 07/18/20 16:40 Midazolam HCl 50 mg/Sodium Chloride 100 ml @ 0 mls/hr Q24H PRN IV Restlessness 07/17/20 13:20 07/19/20 13:19 07/19/20 01:02 Morphine Sulfate (Morphine Sulfate) 4 mg Q4H PRN IVP For Pain 07/17/20 12:45 07/24/20 12:44 Nitroglycerin (Ntg) 0.4 mg Q5M PRN SL Prn Chest Pain 07/03/20 20:30 08/02/20 20:29 Norepinephrine Bitartrate 250 ml @ 0 mls/hr Q24H IV 07/17/20 15:50 07/20/20 15:49 07/18/20 17:38 Ondansetron HCl (Zofran) 4 mg Q6H PRN IVP Nausea & Vomiting 07/03/20 20:30 08/02/20 20:29 Pantoprazole (Protonix) 40 mg DAILY IV 07/18/20 09:00 08/17/20 08:59 07/19/20 08:21 Polyethylene Glycol (Miralax) 17 gm DAILYPRN PRN ORAL Constipation 07/03/20 20:30 08/02/20 20:29 Promethazine HCl/ Codeine (Phenergan with Codeine) 5 ml Q4H PRN ORAL For Cough 07/03/20 20:30 08/02/20 20:29 Sodium Chloride 1,000 ml @ 50 mls/hr Q20H IV 07/17/20 16:00 08/16/20 15:59 07/19/20 05:12 Tamsulosin HCl (Flomax) 0.4 mg BID ORAL 07/11/20 19:45 08/03/20 08:59 07/19/20 08:21 Laboratory Tests 07/18/20 12:35: POC Whole Blood Glucose 139H 07/18/20 17:20: POC Whole Blood Glucose 123H 07/18/20 18:00: Urine Color Pale yellow, Urine Appearance Clear, Urine pH 8, Urine Specific [place] 1.010, Urine Protein 2+H, Urine Glucose (UA) Negative, Urine Ketones 2+H , Urine Blood 1+H, Urine Nitrite Negative, Urine Bilirubin Negative, Urine Urobilinogen Normal, Urine Leukocyte Esterase Negative, Urine RBC 0-2H, Urine WBC 2-4, Urine Squamous Epithelial Cells Occasional, Urine Bacteria Few 07/19/20 00:14: POC Whole Blood Glucose 109H 07/19/20 04:15: White Blood Count 9.4, Red Blood Count 2.97L, Hemoglobin 8.9L, Hematocrit 28.8L, Mean Corpuscular Volume 97, Mean Corpuscular Hemoglobin 30.1, Mean Corpuscular Hemoglobin Concent 31.0L, Red Cell Distribution Width 15.4H, Platelet Count 370, Mean Platelet Volume 8.5, Neutrophils (%) (Auto) 73.6, Lymphocytes (%) (Auto) 14.1L, Monocytes (%) (Auto) 8.7, Eosinophils (%) (Auto) 1.6, Basophils (%) (Auto) 2.0, Sodium Level 146H, Potassium Level 3.3L, Chloride Level 111H, Carbon Dioxide Level 25, Blood Urea Nitrogen 18, Creatinine 1.1, Estimat Glomerular Filtration Rate > 60, Glucose Level 126H, Uric Acid 4.5, Calcium Level 7.6L, Phosphorus Level 2.9, Magnesium Level 2.3, Total Bilirubin 0.4, Aspartate Amino Transf (AST/SGOT) 32, Alanine Aminotransferase (ALT/SGPT) 27, Alkaline Phosphatase 230H, C-Reactive Protein, Quantitative 14.6H, Total Protein 6.4, Albumin 1.5L, Globulin 4.9, Albumin/Globulin Ratio 0.3L 07/19/20 07:56: Arterial Blood pH 7.527H, Arterial Blood Partial Pressure CO2 26.5L, Arterial Blood Partial Pressure O2 66.5L, Arterial Blood HCO3 21.5L, Arterial Blood Oxygen Saturation 93.3L, Arterial Blood Base Excess -0.5, Richard Test Positive Height (Feet): 5 Height (Inches): 4.00 Weight (Pounds): 130 General Appearance: no apparent distress EENT: other - Intubated in ICU Cardiovascular: normal rate Respiratory/Chest: decreased breath sounds Abdomen: distended Tino Connors MD Jul 19, 2020 10:21
--- NOTE | 2020-07-19 11:20 | NUR ---
NURSE NOTES: Ventilator setting changed by respiratory therapist to ac 14, Tv: 600 and FIo2 of 55% after the abg results were reviewed. patient remains with saturations of 100% and RR rate of 19 indicated by the ventilator. the et tube was repositioned and oral care was provided. patient repositioned flat in supine position. tube feeding remains at 40ml/hr.
[2020-07-19] MEDS: Norepinephrine 4mg/NS Premix 250 ML IV SCH (14:16)
--- NOTE | 2020-07-19 14:30 | NUR ---
NURSE NOTES: levophed titrated to 4mcg/min at rate of 15ml/hr to achieve a map of greater than 65. new order placed for versed which is at rate of 2mg/hr at rate of 4ml/hr. residual checked through G-tube with approximately 80mls while running Glucerna 1.2 at 50ml/hr. ventilator setting remains at AC 14, TV: 600 and fio2 of 55%. thick yellow secretions noted while suctioning sputum through et-tube.
--- NOTE | 2020-07-19 15:32 | Internal Med Progress Note ---
Subjective Date of Service: Jul 19, 2020 Physician Name Dano Groves Attending Physician Ahsan Hodges MD Current Medications Medications (Trade) Dose Ordered Sig/Ankush Route PRN Reason Start Time Stop Time Status Last Admin Dose Admin Acetaminophen (Tylenol) 650 mg Q4H PRN ORAL Temp >100.5 07/03/20 20:30 08/02/20 20:29 07/16/20 22:39 Chlorhexidine Gluconate (Darcy-Hex 2%) 1 applic DAILY@2000 TOPIC 07/17/20 20:00 10/15/20 19:59 07/18/20 19:55 Dextrose (Dextrose 50%) 50 ml Q30M PRN IV Hypoglycemia 07/03/20 22:45 10/01/20 22:44 Heparin Sodium (Porcine) (Heparin 5000 units/ml) 5,000 units EVERY 12 HOURS SUBQ 07/03/20 21:00 08/17/20 20:59 07/19/20 08:24 Insulin Aspart (NovoLOG) EVERY 6 HOURS SUBQ 07/13/20 06:00 10/02/20 06:29 07/19/20 12:35 Lorazepam (Ativan 2mg/ml 1ml) 2 mg Q4H PRN IV For Anxiety 07/17/20 12:45 07/24/20 12:44 Meropenem 1 gm/ Sodium Chloride 55 ml @ 110 mls/hr Q12HR@0400,1600 IVPB 07/13/20 16:00 07/22/20 23:59 07/19/20 03:19 Micafungin Sodium 100 mg/Sodium Chloride 110 ml @ 110 mls/hr Q24H IVPB 07/18/20 16:00 07/25/20 15:59 07/18/20 16:40 Midazolam HCl 50 mg/Sodium Chloride 100 ml @ 0 mls/hr Q24H PRN IV Restlessness 07/19/20 14:00 07/21/20 13:46 07/19/20 14:17 Morphine Sulfate (Morphine Sulfate) 4 mg Q4H PRN IVP For Pain 07/17/20 12:45 07/24/20 12:44 Nitroglycerin (Ntg) 0.4 mg Q5M PRN SL Prn Chest Pain 07/03/20 20:30 08/02/20 20:29 Norepinephrine Bitartrate 250 ml @ 0 mls/hr Q24H IV 07/17/20 15:50 07/20/20 15:49 07/19/20 14:16 Ondansetron HCl (Zofran) 4 mg Q6H PRN IVP Nausea & Vomiting 07/03/20 20:30 08/02/20 20:29 Pantoprazole (Protonix) 40 mg DAILY IV 07/18/20 09:00 08/17/20 08:59 07/19/20 08:21 Polyethylene Glycol (Miralax) 17 gm DAILYPRN PRN ORAL Constipation 07/03/20 20:30 08/02/20 20:29 Promethazine HCl/ Codeine (Phenergan with Codeine) 5 ml Q4H PRN ORAL For Cough 07/03/20 20:30 08/02/20 20:29 Sodium Chloride 1,000 ml @ 50 mls/hr Q20H IV 07/17/20 16:00 08/16/20 15:59 07/19/20 05:12 Tamsulosin HCl (Flomax) 0.4 mg BID ORAL 07/11/20 19:45 08/03/20 08:59 07/19/20 08:21 Allergies: Coded Allergies: No Known Allergies (Unverified , 04/30/12) ROS Limited/Unobtainable: Yes Subjective 79 YO M admitted with shortness of breath. Now pneumonia; previously COVID positive. Cover for Int laina-Dr Hodges. ICU. Intubated and sedated Objective Last Vital Signs Date Time Temp Pulse Resp B/P (MAP) Pulse Ox O2 Delivery O2 Flow Rate FiO2 07/19/20 15:00 75 14 95/53 (67) 99 07/19/20 14:18 Mechanical Ventilator 55 07/19/20 12:00 97.1 07/17/20 12:00 15.0 Laboratory Tests Test 07/18/20 17:20 07/18/20 18:00 07/19/20 00:14 07/19/20 04:15 POC Whole Blood Glucose 123 MG/DL (74-106) H 109 MG/DL (74-106) H Urine Color Pale yellow Urine Appearance Clear Urine pH 8 (4.5-8.0) Urine Specific [place] 1.010 (1.005-1.035) Urine Protein 2+ (NEGATIVE) H Urine Glucose (UA) Negative (NEGATIVE) Urine Ketones 2+ (NEGATIVE) H Urine Blood 1+ (NEGATIVE) H Urine Nitrite Negative (NEGATIVE) Urine Bilirubin Negative (NEGATIVE) Urine Urobilinogen Normal MG/DL (0.0-1.0) Urine Leukocyte Esterase Negative (NEGATIVE) Urine RBC 0-2 /HPF (0 - 0) H Urine WBC 2-4 /HPF (0 - 0) Urine Squamous Epithelial Cells Occasional /LPF Urine Bacteria Few /HPF (NONE) White Blood Count 9.4 K/UL (4.8-10.8) Red Blood Count 2.97 M/UL (4.70-6.10) L Hemoglobin 8.9 G/DL (14.2-18.0) L Hematocrit 28.8 % (42.0-52.0) L Mean Corpuscular Volume 97 FL (80-99) Mean Corpuscular Hemoglobin 30.1 PG (27.0-31.0) Mean Corpuscular Hemoglobin Concent 31.0 G/DL (32.0-36.0) L Red Cell Distribution Width 15.4 % (11.6-14.8) H Platelet Count 370 K/UL (150-450) Mean Platelet Volume 8.5 FL (6.5-10.1) Neutrophils (%) (Auto) 73.6 % (45.0-75.0) Lymphocytes (%) (Auto) 14.1 % (20.0-45.0) L Monocytes (%) (Auto) 8.7 % (1.0-10.0) Eosinophils (%) (Auto) 1.6 % (0.0-3.0) Basophils (%) (Auto) 2.0 % (0.0-2.0) Sodium Level 146 MMOL/L (136-145) H Potassium Level 3.3 MMOL/L (3.5-5.1) L Chloride Level 111 MMOL/L (98-107) H Carbon Dioxide Level 25 MMOL/L (21-32) Blood Urea Nitrogen 18 mg/dL (7-18) Creatinine 1.1 MG/DL (0.55-1.30) Estimat Glomerular Filtration Rate > 60 mL/min (>60) Glucose Level 126 MG/DL (74-106) H Uric Acid 4.5 MG/DL (2.6-7.2) Calcium Level 7.6 MG/DL (8.5-10.1) L Phosphorus Level 2.9 MG/DL (2.5-4.9) Magnesium Level 2.3 MG/DL (1.8-2.4) Total Bilirubin 0.4 MG/DL (0.2-1.0) Aspartate Amino Transf (AST/SGOT) 32 U/L (15-37) Alanine Aminotransferase (ALT/SGPT) 27 U/L (12-78) Alkaline Phosphatase 230 U/L (46-116) H C-Reactive Protein, Quantitative 14.6 mg/dL (0.00-0.90) H Total Protein 6.4 G/DL (6.4-8.2) Albumin 1.5 G/DL (3.4-5.0) L Globulin 4.9 g/dL Albumin/Globulin Ratio 0.3 (1.0-2.7) L Test 07/19/20 05:43 07/19/20 07:56 07/19/20 12:13 POC Whole Blood Glucose 124 MG/DL (74-106) H 141 MG/DL (74-106) H Arterial Blood pH 7.527 (7.350-7.450) Arterial Blood Partial Pressure CO2 26.5 mmHg (35.0-45.0) L Arterial Blood Partial Pressure O2 66.5 mmHg (75.0-100.0) L Arterial Blood HCO3 21.5 mmol/L (22.0-26.0) L Arterial Blood Oxygen Saturation 93.3 % (95-100) L Arterial Blood Base Excess -0.5 (-2-2) Richard Test Positive Microbiology Date/Time Source Procedure Growth Status 07/18/20 22:56 Sputum Expectorated Gram Stain - Final Resulted 07/18/20 22:56 Sputum Expectorated Sputum Culture Pending Resulted Intake and Output 07/18/20 07/19/20 19:00 07:00 Intake Total 1462.5 ml 1108.05 ml Output Total 65 ml 390 ml Balance 1397.5 ml 718.05 ml IV Total 1432.5 ml 798.05 ml Tube Feeding 30 ml 310 ml Output Urine Total 65 ml 390 ml Objective PHYSICAL EXAMINATION: GENERAL: The patient awake with deep stimuli, open his eyes, however, cannot follow commands. The patient is on a Ventimask at this time, chronically ill-appearing. HEAD AND NECK: Pupils are equal and reactive to light. Anicteric. NECK: Supple. No JVD. LUNGS: Mech vent; wheezing, rhonchi, and decreased air in bases. HEART: S1, S2. Regular rhythm. Distant heart sounds. No murmur or gallop. ABDOMEN: Soft, nondistended, nontender. Positive bowel sounds. EXTREMITIES: No cyanosis, clubbing, or edema. NEUROLOGIC: Very limited secondary to the patient's status, cannot follow commands. Opens his eyes with deep stimuli and moving extremities spontaneously. Assessment/Plan Assessment/Plan ASSESSMENT: 1. Acute hypoxemic respiratory failure, most likely secondary to pneumonia and sepsis. 2. Sepsis secondary to urinary tract infection and pneumonia. 3. pneumonia=MRSA; ESBL E. coli 4. Acute kidney injury on chronic renal insufficiency. 5. Dehydration. 6. History of chronic congestive heart failure. 7. Diabetes type 2. 8. Dyslipidemia. 9. Hypertension. 10. Alzheimer's disease. 11. COVID 19 previous positive PLAN: 1. ICU 2. Dr. Carreno,=Pulmonary Critical Care; follow mech vent recs 3. Dr. Cho = Inf Dis. 4. IV= D5W due to the hypernatremia and dehydration. 5. antibiotics = micafungin and meropenem 6. Code status is full code. 7. DVT prophylaxis is heparin subcutaneous. Dano Groves MD Jul 19, 2020 15:32
--- NOTE | 2020-07-19 15:50 | NUR ---
NURSE NOTES: Dr. Matt conducting rounds and updated patient remains on Levophed at 4mcg/min at rate of 15ml/hr with bp of 113/57 with heart rate of 77-78 in sinus rhythm. ventilator settings are ac 14, TV: 600, and FIO2 of 55%. ordered to midodrine 5mg NG TID.
[2020-07-19] MEDS: Micafungin 100 MG in NS 110 ML IVPB SCH (16:23)
--- NOTE | 2020-07-19 17:16 | NUR ---
NURSE NOTES: Sponge bath provided and cleaned skin with soap and placed lotion on feet hands and hands. oral care and repositioned patient. tube feeding residual checked and approximately 60mls of tube feeding with in syringe and resumed tube feeding at 50ml/hr. bed mattress level adjusted to 5 per patient weight. right femoral line dressing remains dry and intact with no oozing or leaking noted. remains on Levophed at 4mcg/min at rate of 15ml/hr and versed at 2mg/hr at rate of 4 ml/hr. Wiley remains draining with clear straw urine. patient remains on ventilator setting of AC 14, TV: 600, FIO2 55% with satruations at 99-100% and RR of 17.
--- NOTE | 2020-07-19 17:21 | Cardiac Electrophysiology PN ---
Assessment/Plan Assessment/Plan 1. Accelerated junctional rhythm. Not bradycardic. Ruled out for IA Echo showed ejection fraction of 55%. 2. Long run of 31 beats of Nonsustained VT on 07/14/2020. Will need cardiac cath after stabilization. 3. Respiratory failure, on antibiotic and intubated on the vent 4. Septic shock. on LEvophed. 5. Acute renal failure. 6. Electrolyte imbalance. 7. History of CHF, but echocardiogram showed normal left ventricular systolic function. 8. History of previous COVID infection in May 2020 and active Covid now in isolation 9. Dementia. SHAYY RN Subjective Subjective In SR in NAD in Covid isolation. In ICU on the Vent with 55% Fio2 and 4 mcg of Levo. Had 31 beats of VT on 07/14/20 at 16:46 and 5 beats yesterday Objective Last 24 Hour Vital Signs Date Time Temp Pulse Resp B/P (MAP) Pulse Ox O2 Delivery O2 Flow Rate FiO2 07/19/20 17:00 84 18 90/52 (65) 100 07/19/20 17:00 83 20 90/52 (65) 100 07/19/20 16:30 83 17 86/46 (59) 100 07/19/20 16:30 79 17 106/55 (72) 99 07/19/20 16:00 Mechanical Ventilator 07/19/20 16:00 55 07/19/20 16:00 99.2 77 15 111/59 (76) 100 07/19/20 16:00 70 07/19/20 15:36 71 14 55 07/19/20 15:30 71 14 112/57 (75) 100 07/19/20 15:00 75 14 95/53 (67) 99 07/19/20 14:30 80 20 93/55 (68) 98 07/19/20 14:18 15 Mechanical Ventilator 55 07/19/20 14:17 15 Mechanical Ventilator 55 07/19/20 14:16 92/51 07/19/20 14:00 83 16 89/53 (65) 100 07/19/20 14:00 14 Mechanical Ventilator 55 07/19/20 13:30 81 17 90/49 (63) 100 07/19/20 13:00 15 Mechanical Ventilator 55 07/19/20 13:00 78 17 94/52 (66) 100 07/19/20 12:30 76 15 106/62 (77) 100 07/19/20 12:15 75 14 94/59 (71) 100 07/19/20 12:00 Mechanical Ventilator 07/19/20 12:00 15 Mechanical Ventilator 55 07/19/20 12:00 97.1 75 14 88/56 (67) 100 07/19/20 12:00 55 07/19/20 12:00 76 07/19/20 11:30 80 18 117/67 (84) 100 07/19/20 11:05 85 20 55 07/19/20 11:00 14 Mechanical Ventilator 55 07/19/20 11:00 79 20 101/54 (70) 99 07/19/20 10:30 83 20 109/56 (73) 100 07/19/20 10:01 55 07/19/20 10:00 17 Mechanical Ventilator 45 07/19/20 10:00 83 17 96/49 (65) 99 07/19/20 09:30 79 15 90/49 (63) 98 07/19/20 09:15 80 16 153/76 (101) 99 07/19/20 09:00 79 16 84/48 (60) 98 07/19/20 09:00 16 Mechanical Ventilator 45 07/19/20 08:30 70 16 113/55 (74) 99 07/19/20 08:00 70 07/19/20 08:00 16 Mechanical Ventilator 45 07/19/20 08:00 45 07/19/20 08:00 98.3 69 16 119/65 (83) 98 07/19/20 08:00 Mechanical Ventilator 07/19/20 07:30 75 16 113/63 (80) 99 07/19/20 07:00 71 16 112/79 (90) 99 07/19/20 07:00 16 Mechanical Ventilator 45 07/19/20 06:45 69 16 45 07/19/20 06:30 71 16 123/70 (87) 99 07/19/20 06:30 71 16 07/19/20 06:00 15 Mechanical Ventilator 45 07/19/20 06:00 69 15 108/63 (78) 99 07/19/20 05:30 73 16 113/66 (82) 99 07/19/20 05:00 74 17 133/69 (90) 100 07/19/20 05:00 16 Mechanical Ventilator 45 11/8/20 04:30 75 16 137/71 (93) 100 07/19/20 04:00 45 07/19/20 04:00 Mechanical Ventilator 07/19/20 04:00 99.2 73 16 126/63 (84) 98 07/19/20 04:00 16 Mechanical Ventilator 45 07/19/20 04:00 84 07/19/20 03:30 83 16 102/50 (67) 96 07/19/20 03:00 16 Mechanical Ventilator 45 07/19/20 03:00 84 16 103/52 (69) 97 07/19/20 02:30 76 16 98/59 (72) 99 07/19/20 02:30 80 17 45 07/19/20 02:00 72 16 107/59 (75) 99 07/19/20 02:00 16 Mechanical Ventilator 45 07/19/20 01:30 73 17 129/63 (85) 100 07/19/20 01:02 16 Mechanical Ventilator 45 07/19/20 01:00 19 Mechanical Ventilator 45 07/19/20 01:00 79 19 121/58 (79) 100 07/19/20 00:30 75 15 120/54 (76) 100 07/19/20 00:00 99.1 69 16 97/51 (66) 100 07/19/20 00:00 45 07/19/20 00:00 16 Mechanical Ventilator 45 07/19/20 00:00 Mechanical Ventilator 07/19/20 00:00 73 07/18/20 23:30 73 16 112/52 (72) 100 07/18/20 23:00 74 16 107/49 (68) 100 07/18/20 23:00 16 Mechanical Ventilator 45 07/18/20 22:30 71 16 99/53 (68) 99 07/18/20 22:30 74 16 45 07/18/20 22:00 16 Mechanical Ventilator 45 07/18/20 22:00 71 16 100/52 (68) 100 07/18/20 21:30 70 16 115/54 (74) 100 07/18/20 21:00 66 16 123/57 (79) 100 07/18/20 21:00 16 Mechanical Ventilator 45 07/18/20 20:30 97.9 72 16 92/57 (69) 100 07/18/20 20:00 67 16 140/68 (92) 100 07/18/20 20:00 16 Mechanical Ventilator 45 07/18/20 20:00 Mechanical Ventilator 07/18/20 20:00 45 07/18/20 20:00 66 07/18/20 19:30 61 16 134/63 (86) 100 07/18/20 19:00 67 16 119/68 (85) 100 07/18/20 19:00 16 Mechanical Ventilator 45 07/18/20 18:30 70 16 45 07/18/20 17:38 101/44 Intake and Output 07/18/20 07/19/20 19:00 07:00 Intake Total 1462.5 ml 1108.05 ml Output Total 65 ml 390 ml Balance 1397.5 ml 718.05 ml IV Total 1432.5 ml 798.05 ml Tube Feeding 30 ml 310 ml Output Urine Total 65 ml 390 ml Laboratory Tests Test 07/18/20 17:20 07/18/20 18:00 07/19/20 00:14 07/19/20 04:15 POC Whole Blood Glucose 123 MG/DL (74-106) H 109 MG/DL (74-106) H Urine Color Pale yellow Urine Appearance Clear Urine pH 8 (4.5-8.0) Urine Specific [place] 1.010 (1.005-1.035) Urine Protein 2+ (NEGATIVE) H Urine Glucose (UA) Negative (NEGATIVE) Urine Ketones 2+ (NEGATIVE) H Urine Blood 1+ (NEGATIVE) H Urine Nitrite Negative (NEGATIVE) Urine Bilirubin Negative (NEGATIVE) Urine Urobilinogen Normal MG/DL (0.0-1.0) Urine Leukocyte Esterase Negative (NEGATIVE) Urine RBC 0-2 /HPF (0 - 0) H Urine WBC 2-4 /HPF (0 - 0) Urine Squamous Epithelial Cells Occasional /LPF Urine Bacteria Few /HPF (NONE) White Blood Count 9.4 K/UL (4.8-10.8) Red Blood Count 2.97 M/UL (4.70-6.10) L Hemoglobin 8.9 G/DL (14.2-18.0) L Hematocrit 28.8 % (42.0-52.0) L Mean Corpuscular Volume 97 FL (80-99) Mean Corpuscular Hemoglobin 30.1 PG (27.0-31.0) Mean Corpuscular Hemoglobin Concent 31.0 G/DL (32.0-36.0) L Red Cell Distribution Width 15.4 % (11.6-14.8) H Platelet Count 370 K/UL (150-450) Mean Platelet Volume 8.5 FL (6.5-10.1) Neutrophils (%) (Auto) 73.6 % (45.0-75.0) Lymphocytes (%) (Auto) 14.1 % (20.0-45.0) L Monocytes (%) (Auto) 8.7 % (1.0-10.0) Eosinophils (%) (Auto) 1.6 % (0.0-3.0) Basophils (%) (Auto) 2.0 % (0.0-2.0) Sodium Level 146 MMOL/L (136-145) H Potassium Level 3.3 MMOL/L (3.5-5.1) L Chloride Level 111 MMOL/L (98-107) H Carbon Dioxide Level 25 MMOL/L (21-32) Blood Urea Nitrogen 18 mg/dL (7-18) Creatinine 1.1 MG/DL (0.55-1.30) Estimat Glomerular Filtration Rate > 60 mL/min (>60) Glucose Level 126 MG/DL (74-106) H Uric Acid 4.5 MG/DL (2.6-7.2) Calcium Level 7.6 MG/DL (8.5-10.1) L Phosphorus Level 2.9 MG/DL (2.5-4.9) Magnesium Level 2.3 MG/DL (1.8-2.4) Total Bilirubin 0.4 MG/DL (0.2-1.0) Aspartate Amino Transf (AST/SGOT) 32 U/L (15-37) Alanine Aminotransferase (ALT/SGPT) 27 U/L (12-78) Alkaline Phosphatase 230 U/L (46-116) H C-Reactive Protein, Quantitative 14.6 mg/dL (0.00-0.90) H Total Protein 6.4 G/DL (6.4-8.2) Albumin 1.5 G/DL (3.4-5.0) L Globulin 4.9 g/dL Albumin/Globulin Ratio 0.3 (1.0-2.7) L Test 07/19/20 05:43 07/19/20 07:56 07/19/20 12:13 POC Whole Blood Glucose 124 MG/DL (74-106) H 141 MG/DL (74-106) H Arterial Blood pH 7.527 (7.350-7.450) Arterial Blood Partial Pressure CO2 26.5 mmHg (35.0-45.0) L Arterial Blood Partial Pressure O2 66.5 mmHg (75.0-100.0) L Arterial Blood HCO3 21.5 mmol/L (22.0-26.0) L Arterial Blood Oxygen Saturation 93.3 % (95-100) L Arterial Blood Base Excess -0.5 (-2-2) Richard Test Positive Microbiology Date/Time Source Procedure Growth Status 07/18/20 22:56 Sputum Expectorated Gram Stain - Final Resulted 07/18/20 22:56 Sputum Expectorated Sputum Culture Pending Resulted Objective HEAD AND NECK: No JVD. Orally intubated LUNGS: Coarse rhonchi. CARDIOVASCULAR: Irregular S1 and S2 with no gallop. ABDOMEN: Soft. EXTREMITIES: No pitting edema. Klever Matt MD Jul 19, 2020 17:21
--- NOTE | 2020-07-19 17:42 | NUR ---
NURSE HAND-OFF REPORT: Latest Vital Signs: Temperature 99.2 , Pulse 84 , B/P 90 /52 , Respiratory Rate 18 , O2 SAT 100 , Mechanical Ventilator, O2 Flow Rate . Vital Sign Comment: EKG Rhythm: Sinus Rhythm Rhythm change?: N Notified?: Grecia Matt MD Response: Latest Gonzalez Fall Score: 70 Fall Risk: High Risk Safety Measures: Call light Within Reach, Bed Alarm Zone 1, Side Rails Side Rails x3, Bed position Low and Locked. Fall Precautions: Yellow Socks Yellow Gown Door Sign Patient Fall Education Report given to FLORES Han. daniel remains on levophed at 4mcg/min and versed at 2mg/hr.
--- NOTE | 2020-07-19 17:43 | NUR ---
NURSE NOTES: Report received from FLORES Walker. Patient is sedated in bed. Patient will wake up and try to reach ETT at times. Continued bilateral soft wrist restraints. Rectal temp 98.5. SR on school bus monitor. Orally intubated. ETT 7.5/25cm at lip line. AC 14, TV 600, FiO2 55%. O2 sat 100%. Moderate amount of clear al secretion from bite block and mouth noted and suctioned. Right NGT in place receiving Glucerna 1.2 at 50cc/hr. Residual 60cc as per FLORES Walker. Wiley in place draining to gravity. Right femoral TLC patent and asymptomatic. Levo is running at 4mcg/min and Versed at 2mg/hr with RASS -2. 1/2NS is running at 50cc/hr. Bed in lowest position. Side rails up x3. Will continue plan of care.
--- NOTE | 2020-07-19 19:25 | NUR ---
NURSE HAND-OFF REPORT: Latest Vital Signs: Temperature 98.5 , Pulse 72 , B/P 129 /69 , Respiratory Rate 16 , O2 SAT 100 , Mechanical Ventilator, O2 Flow Rate . Vital Sign Comment: EKG Rhythm: Sinus Rhythm Rhythm change?: N MD Notified?: MD Response: Latest Gonzalez Fall Score: 70 Fall Risk: High Risk Safety Measures: Call light Within Reach, Bed Alarm Zone 1, Side Rails Side Rails x3, Bed position Low and Locked. Fall Precautions: Yellow Socks Yellow Gown Door Sign Patient Fall Education Report given to FLORES Gallagher.
--- NOTE | 2020-07-19 19:30 | NUR ---
NURSE NOTES: Received report from FLORES Fisher. Patient is sedated in bed. Orally intubated. ETT 7.5/25cm at lip line. AC 14, TV 600, FiO2 55%. O2 sat 100%. Given suction and oral care. On network applications specialist with SR. Right NGT in place receiving Glucerna 1.2 at 50cc/hr. RN. Wiley in place draining to gravity. Right femoral TLC dressing is clean and dry and on running with Levophed @ 4mcg/min and Versed at 2mg/hr with RASS -2. 1/2NS is running at 50cc/hr. No sign of pain by FLACC scale. Dressing is clean and dry on wound area. On P200 mattress for wound management. No fever. Pt has bilateral soft restraint and checked comfort and circulation. Placed fall precaution. Proper airborne isolation for COVID-19. Will continue plan of care.
[2020-07-19] MEDS: Dyna-Hex 2% Top Sol 2oz TOPIC SCH (20:10)
--- NOTE | 2020-07-19 22:00 | NUR ---
NURSE NOTES: Pt is sedated and sleeping on the bed. Trying to release bilateral soft restraint and successful. D/c's restraint. SaO2 100% with Current Vent setting. Turn and reposition. Will continue to monitor any change of condition.
[2020-07-20] VITALS (46 sets, daily range): BP systolic 85–149; BP diastolic 52–76
--- NOTE | 2020-07-20 | NUR ---
NURSE NOTES: Pt is sedated on the bed. SaO2 99% with current Vent setting. Given suction and oral care. No fever. On running with Versed @ 2mg/hr(4cc/hr) and Levophed drip @ 4mcg/min. Pt is confused and trying to remove ETT and NGT. Given verbal cueing but he didn't understand. Get order and applied bilateral soft wrist restraint. Checked comfort and circulation. On running with NGT feeding with Glucerna 1.2 @ 50cc/hr and noted residual 10cc. Increase to 60cc/hr as goal. Turn and reposition. Provided good sleep and calm environment. Proper isolation for COVID-19. Placed fall precaution. Will continue to monitor any change of condition.
[2020-07-20] MEDS: NovoLOG Insulin Flexpen SUBQ SCH ×4 (00:06→17:58)
--- NOTE | 2020-07-20 02:00 | NUR ---
NURSE NOTES: Pt is sedated on the bed and SaO2 99% with Vent FiO2 55%. Given suction and oral care. On conveyor monitor with SR. On NGT feeding with Glucerna 1.2 @ 60cc/hr and tolerated well. Changed position. Will continue to monitor any change of condition.
[2020-07-20] MEDS: Meropenem 1 GM in NS 55 ML IVPB SCH ×2 (03:23→15:22)
--- NOTE | 2020-07-20 04:00 | NUR ---
NURSE NOTES: Morning care was done. Cleaned Pt and applied lotion and cream. On running with Levophed drip @ 4mcg/min and BP 111/63mmHg. RASS-2 and on running with Versed @ 2mg/hr. RT to FiO2 50%. Noted SaO2 100%. Turn and reposition. Will continue to care plan.
[2020-07-20] MEDS: Norepinephrine 4mg/NS Premix 250 ML IV SCH ×2 (05:28→17:07)
--- NOTE | 2020-07-20 06:00 | NUR ---
NURSE NOTES: Noted BP 125/67mmHg. Change rate of Levophed drip @ 3mcg/min as titrated. Will continue to monitor any change of condition.
[2020-07-20 07:11] LABS: BASOPHILS % (AUTO) 1.2 % (0.0-2.0); EOSINOPHILS % (AUTO) 1.5 % (0.0-3.0); HEMATOCRIT 31.1 % (42.0-52.0); HEMOGLOBIN 9.5 G/DL (14.2-18.0); LYMPHOCYTES % (AUTO) 12.6 % (20.0-45.0); MEAN CORPUSCULAR VOLUME 98 FL (80-99); MONOCYTES % (AUTO) 6.6 % (1.0-10.0); NEUTROPHILS % (AUTO) 78.2 % (45.0-75.0); PLATELET COUNT 406 K/UL (150-450); RED BLOOD COUNT 3.18 M/UL (4.70-6.10); RED CELL DISTRIBUTION WIDTH 15.5 % (11.6-14.8); WHITE BLOOD COUNT 9.7 K/UL (4.8-10.8)
[2020-07-20 07:23] LABS: ANION GAP 7 mmol/L (5-15); BLOOD UREA NITROGEN 17 mg/dL (7-18); CALCIUM 8.1 MG/DL (8.5-10.1); CARBON DIOXIDE 26 MMOL/L (21-32); CHLORIDE 112 MMOL/L (98-107); CREATININE 1.1 MG/DL (0.55-1.30); POTASSIUM 3.9 MMOL/L (3.5-5.1); SODIUM 145 MMOL/L (136-145)
--- NOTE | 2020-07-20 07:27 | NUR ---
NURSE HAND-OFF REPORT: Latest Vital Signs: Temperature 97.5 , Pulse 72 , B/P 116 /71 , Respiratory Rate 15 , O2 SAT 100 , Mechanical Ventilator, EKG Rhythm: Sinus Rhythm Rhythm change?: N Latest Gonzalez Fall Score: 70 Fall Risk: High Risk Safety Measures: Call light Within Reach, Bed Alarm Zone 1, Side Rails Side Rails x3, Bed position Low and Locked. Fall Precautions: Yellow Socks Yellow Gown Door Sign Patient Fall Education Report given to FLORES Walker. On running with Levophed drip @ 3mcg/min and Versed @ 2mg/hr and RASS -2.
[2020-07-20 07:58] LABS: ALANINE AMINOTRANSFERASE 28 U/L (12-78); ALBUMIN 1.4 G/DL (3.4-5.0); ALKALINE PHOSPHATASE 212 U/L (46-116); ASPARTATE AMINO TRANSFERASE 24 U/L (15-37); BILIRUBIN,DIRECT 0.1 MG/DL (0.0-0.3); BILIRUBIN,TOTAL 0.2 MG/DL (0.2-1.0); PHOSPHORUS 3.3 MG/DL (2.5-4.9)
[2020-07-20] MEDS: Pantoprazole Inj IV SCH (08:02)
[2020-07-20] MEDS: Tamsulosin 0.4mg cap ORAL SCH ×2 (08:02→17:07)
[2020-07-20] MEDS: Heparin 5000 units/ml inj SUBQ SCH ×2 (08:03→20:19)
--- NOTE | 2020-07-20 08:15 | NUR ---
NURSE NOTES: report received from FLORES Aragon. patient is noted to be sedated on versed drip 2mg/hr to achieve rass score of -2, ' he has a gag reflex when suctioning through the ET-tube and when orally suctioned. patient remains on ventilator setting at 40% with AC 14, TV: 600. right femoral line is patent and remains running levophed at 3mcg/min. tube feeding remains at 60ml/hr with Addendum: 07/20/20 at 1355 by Aaron Soni RN ziegler remains draining clear straw urine. NG-ube is at 65-66cm on the right nare, sacral region is protected with Optifoam;.
--- NOTE | 2020-07-20 08:33 | NUR ---
RD ASSESSMENT & RECOMMENDATIONS SEE CARE ACTIVITY FOR COMPLETE ASSESSMENT DAILY ESTIMATED NEEDS: Needs based on DM, wound, critical care 59.5kg 22-28 kcals/kg 9711-5002 total kcals 1.25-2 g protein/kg 74-119 g total protein 25-30 mL/kg 2622-1425 total fluid mLs NUTRITION DIAGNOSIS: * Swallowing difficulty R/T dysphagia as evidenced by INDUSTRIAL REHABILITATION CONSULTANT [employer], recs for NGT feeds, now s/p oral intubation (07/17), on pressor support and sedated, cont on NGT feeds. * Increased kcal and pro needs r/t wound healing as evidenced by sacral pressure injury stage 2. CURRENT TF:Glucerna 1.2 @ 60ml/hr x24 hrs ENTERAL NUTRITION RECOMMENDATIONS: Glucerna 1.2 @ 55ml/hr x24 hrs to provide 1320ml, 1584kcal, 79g prot, 1063ml free water - LOWER goal rate to 55ml/hr x 24 hrs : s/p intubation w/ decreased kcal needs - HOB over 30 degrees/ H2O flush per MD ADDITIONAL RECOMMENDATIONS: * Calibrated bedscale wt for accurate CBW * Monitor hemodynamic stability: NE titrating down, @ 3mcg * Monitor lytes, replete as needed * Wound care: add Sushil BID via PEG add Vit C 250mg QD . .
--- NOTE | 2020-07-20 09:45 | NUR ---
NURSE NOTES: Dr. Carreno conducting round at the bedside, updated of the patient ABG and chest x-ray has been taken and reviews the results. orders placed and ordered to have PICC line placed.
--- NOTE | 2020-07-20 09:49 | Pulmonolgy Critical Care Note ---
Critical Care - Asmt/Plan Problems: (1) Acute respiratory failure (2) Multifocal pneumonia (3) 2019 novel coronavirus disease (COVID-19) (4) Acute encephalopathy (5) Severe sepsis (6) Alzheimer's dementia (7) HTN (hypertension) (8) History of CVA (cerebrovascular accident) (9) BPH (benign prostatic hyperplasia) Respiratory: monitor respiratory rate, adjust FIO2, CXR Cardiac: continue to monitor HR/BP Renal: F/U I&O, keep IV fluid, check electrolytes Infectious Disease: check cultures Gastrointestinal: continue feedings/current rate Endocrine: monitor blood sugar, continue sliding scale insulin Hematologic: monitor H/H, transfuse if hgb<8.5 Neurologic: PRN Ativan, keep patient comfortable Prophylaxis: Protonix Time Spent (Minutes): 40 Notes Reviewed: information security systems instructor, cardio, ID Critical Care - Objective Last 24 Hour Vital Signs Date Time Temp Pulse Resp B/P (MAP) Pulse Ox O2 Delivery O2 Flow Rate FiO2 07/20/20 08:00 40 07/20/20 08:00 Mechanical Ventilator 07/20/20 08:00 97.6 81 14 94/57 (69) 100 07/20/20 08:00 78 07/20/20 07:30 76 14 94/57 (69) 100 07/20/20 07:00 15 Mechanical Ventilator 50 07/20/20 07:00 72 15 116/71 (86) 100 07/20/20 06:30 72 14 07/20/20 06:30 62 18 50 07/20/20 06:30 74 14 113/63 (80) 100 07/20/20 06:00 73 17 125/67 (86) 100 07/20/20 06:00 17 Mechanical Ventilator 50 07/20/20 05:28 112/62 07/20/20 05:00 72 16 117/63 (81) 100 07/20/20 05:00 16 Mechanical Ventilator 50 07/20/20 04:30 74 18 120/69 (86) 100 07/20/20 04:00 87 07/20/20 04:00 18 Mechanical Ventilator 50 07/20/20 04:00 50 07/20/20 04:00 97.5 80 19 111/63 (79) 100 07/20/20 04:00 Mechanical Ventilator 07/20/20 03:31 84 21 50 07/20/20 03:30 73 19 120/63 (82) 100 07/20/20 03:00 76 19 130/76 (94) 100 07/20/20 03:00 19 Mechanical Ventilator 55 07/20/20 02:30 76 16 116/63 (80) 100 07/20/20 02:00 79 16 97/55 (69) 99 07/20/20 02:00 16 Mechanical Ventilator 55 07/20/20 01:30 80 17 91/54 (66) 99 07/20/20 01:00 17 Mechanical Ventilator 55 07/20/20 01:00 80 17 89/56 (67) 99 07/20/20 00:30 77 17 89/53 (65) 99 07/20/20 00:00 Mechanical Ventilator 07/20/20 00:00 71 07/20/20 00:00 16 Mechanical Ventilator 55 07/20/20 00:00 98.2 73 16 91/57 (68) 99 07/20/20 00:00 55 07/19/20 23:30 73 14 94/49 (64) 100 07/19/20 23:03 78 18 55 07/19/20 23:00 15 Mechanical Ventilator 55 07/19/20 23:00 72 15 91/52 (65) 100 07/19/20 22:30 72 15 107/60 (76) 100 07/19/20 22:00 14 Mechanical Ventilator 55 07/19/20 22:00 68 14 104/62 (76) 100 07/19/20 21:30 71 14 98/57 (71) 100 07/19/20 21:00 14 Mechanical Ventilator 55 07/19/20 21:00 70 14 115/60 (78) 100 07/19/20 20:30 68 14 110/66 (81) 100 07/19/20 20:00 71 07/19/20 20:00 14 Mechanical Ventilator 55 07/19/20 20:00 97.9 71 14 102/58 (73) 100 07/19/20 20:00 55 07/19/20 20:00 Mechanical Ventilator 07/19/20 19:30 72 17 126/71 (89) 100 07/19/20 19:28 72 16 55 07/19/20 19:00 17 Mechanical Ventilator 55 07/19/20 19:00 72 17 129/69 (89) 100 07/19/20 18:30 76 20 130/70 (90) 100 07/19/20 18:00 18 Mechanical Ventilator 55 07/19/20 18:00 79 19 122/68 (86) 100 07/19/20 17:45 Mechanical Ventilator 07/19/20 17:30 98.5 82 22 109/56 (73) 100 07/19/20 17:00 84 18 90/52 (65) 100 07/19/20 17:00 83 20 90/52 (65) 100 07/19/20 16:30 83 17 86/46 (59) 100 07/19/20 16:30 79 17 106/55 (72) 99 07/19/20 16:00 Mechanical Ventilator 07/19/20 16:00 55 07/19/20 16:00 99.2 77 15 111/59 (76) 100 07/19/20 16:00 70 07/19/20 15:36 71 14 55 07/19/20 15:30 71 14 112/57 (75) 100 07/19/20 15:00 75 14 95/53 (67) 99 07/19/20 14:30 80 20 93/55 (68) 98 07/19/20 14:18 15 Mechanical Ventilator 55 07/19/20 14:17 15 Mechanical Ventilator 55 07/19/20 14:16 92/51 07/19/20 14:00 83 16 89/53 (65) 100 07/19/20 14:00 14 Mechanical Ventilator 55 07/19/20 13:30 81 17 90/49 (63) 100 07/19/20 13:00 15 Mechanical Ventilator 55 07/19/20 13:00 78 17 94/52 (66) 100 07/19/20 12:30 76 15 106/62 (77) 100 07/19/20 12:15 75 14 94/59 (71) 100 07/19/20 12:00 Mechanical Ventilator 07/19/20 12:00 15 Mechanical Ventilator 55 07/19/20 12:00 97.1 75 14 88/56 (67) 100 07/19/20 12:00 55 07/19/20 12:00 76 07/19/20 11:30 80 18 117/67 (84) 100 07/19/20 11:05 85 20 55 07/19/20 11:00 14 Mechanical Ventilator 55 07/19/20 11:00 79 20 101/54 (70) 99 07/19/20 10:30 83 20 109/56 (73) 100 07/19/20 10:01 55 07/19/20 10:00 17 Mechanical Ventilator 45 07/19/20 10:00 83 17 96/49 (65) 99 Status: sedated Condition: critical Lungs: rales, rhonchi Heart: HR/BP stable Abdomen: soft, non-tender Extremities: no C/C/E Micro: Microbiology Date/Time Source Procedure Growth Status 07/18/20 22:56 Sputum Expectorated Gram Stain - Final Resulted 07/18/20 22:56 Sputum Culture - Preliminary Staphylococcus Aureus Resulted Accucheck: 149 Critical Care - Subjective ROS Limited/Unobtainable: Yes Condition: critical EKG Rhythm: Sinus Rhythm FI02: 40 Vent Support Breath Rate: 14 Vent Support Mode: AC Vent Tidal Volume: 600 Sputum Amount: Moderate PEEP: 0.0 PIP: 16 Tube Feeding Amount: 60 I&O: Intake and Output 07/19/20 07/20/20 19:00 07:00 Intake Total 1755.875 ml 1496 ml Output Total 525 ml 660 ml Balance 1230.875 ml 836 ml Free Water 110 ml IV Total 1055.875 ml 826 ml Tube Feeding 550 ml 670 ml Other 40 ml Output Urine Total 525 ml 660 ml CXR: ET tube above Elizabeth infiltrates not changed. ET-Tube: 7.5 ET Position: 25 Labs: Laboratory Tests Test 07/19/20 12:13 07/19/20 17:56 07/19/20 23:50 07/20/20 05:27 POC Whole Blood Glucose 141 MG/DL (74-106) H Pending Pending White Blood Count 9.7 K/UL (4.8-10.8) Red Blood Count 3.18 M/UL (4.70-6.10) L Hemoglobin 9.5 G/DL (14.2-18.0) L Hematocrit 31.1 % (42.0-52.0) L Mean Corpuscular Volume 98 FL (80-99) Mean Corpuscular Hemoglobin 29.9 PG (27.0-31.0) Mean Corpuscular Hemoglobin Concent 30.6 G/DL (32.0-36.0) L Red Cell Distribution Width 15.5 % (11.6-14.8) H Platelet Count 406 K/UL (150-450) Mean Platelet Volume 8.4 FL (6.5-10.1) Neutrophils (%) (Auto) 78.2 % (45.0-75.0) H Lymphocytes (%) (Auto) 12.6 % (20.0-45.0) L Monocytes (%) (Auto) 6.6 % (1.0-10.0) Eosinophils (%) (Auto) 1.5 % (0.0-3.0) Basophils (%) (Auto) 1.2 % (0.0-2.0) Sodium Level 145 MMOL/L (136-145) Potassium Level 3.9 MMOL/L (3.5-5.1) Chloride Level 112 MMOL/L (98-107) H Carbon Dioxide Level 26 MMOL/L (21-32) Anion Gap 7 mmol/L (5-15) Blood Urea Nitrogen 17 mg/dL (7-18) Creatinine 1.1 MG/DL (0.55-1.30) Estimat Glomerular Filtration Rate > 60 mL/min (>60) Glucose Level 151 MG/DL (74-106) H Calcium Level 8.1 MG/DL (8.5-10.1) L Test 07/20/20 05:33 07/20/20 05:54 07/20/20 07:10 POC Whole Blood Glucose 149 MG/DL (74-106) H Phosphorus Level 3.3 MG/DL (2.5-4.9) Magnesium Level 2.4 MG/DL (1.8-2.4) Total Bilirubin 0.2 MG/DL (0.2-1.0) Direct Bilirubin 0.1 MG/DL (0.0-0.3) Aspartate Amino Transf (AST/SGOT) 24 U/L (15-37) Alanine Aminotransferase (ALT/SGPT) 28 U/L (12-78) Alkaline Phosphatase 212 U/L (46-116) H Total Protein 5.5 G/DL (6.4-8.2) L Albumin 1.4 G/DL (3.4-5.0) L Arterial Blood pH 7.487 (7.350-7.450) Arterial Blood Partial Pressure CO2 30.3 mmHg (35.0-45.0) L Arterial Blood Partial Pressure O2 115.1 mmHg (75.0-100.0) H Arterial Blood HCO3 22.4 mmol/L (22.0-26.0) Arterial Blood Oxygen Saturation 97.4 % (95-100) Arterial Blood Base Excess -0.5 (-2-2) Richard Test Positive Kya Carreno MD Jul 20, 2020 09:49
--- NOTE | 2020-07-20 10:59 | Infectious Diseases Prog Note ---
Assessment/Plan 79yo M with: SEptic Shock Fever,r ecurrent; SP Leukocytosis ;recurrent ; increased; -SP Acute hypoxic resp failure, on NRB mask> 4l NC; back on NRB, desaturation 07/09 > intubated 07/17 Pneumonia- >HAP hx of COVID19 PNA 05/20/20 --07/19 CXR: Persistent bilateral patchy pulmonary opacities, most prominent in the left lower lung. --07/18 ucx neg sp cx S., aureus (colonizer at this point) --07/13 Bcx NTD 07/10 Sp cx MRSA (Vancomycin APOLONIA 1), ESBL E.coli 07/03 BCx NTD UA - WBC, UCx Neg 07/03 COVID rapid neg; 07/06 rapid COVID PCR + (from prior infection)- not new infection Flu A/B neg CXR: L pna Resp cx MRSA Denis on CKD, improving SNF resident ([facility]) Non-verbal VRE and MRSA colonized Plan: Meropenem #04/20-14 for ESBL PNA add empiric Micafungin #/ -07/17 SP IV Vancomycin #15 -07/13 SP Zosyn #4 -07/06 SP Cefepime # -07/04 SP Flagyl # Monitor CBC/CMP Monitor resp status Monitor temp curve and hemodynamics repeat cultures D/w RN Thank you for this consult. [facility] will continue to follow. Subjective Allergies: Coded Allergies: No Known Allergies (Unverified , 04/30/12) afebrile >48hrs FIo2 down to 35% levo down ton 3 leukocytosis resolved Bcx NTD Objective Last 24 Hour Vital Signs Date Time Temp Pulse Resp B/P (MAP) Pulse Ox O2 Delivery O2 Flow Rate FiO2 07/20/20 10:40 73 14 35 07/20/20 10:30 75 14 95/55 (68) 100 07/20/20 10:00 73 14 131/65 (87) 100 07/20/20 09:30 71 14 96/53 (67) 99 07/20/20 09:00 72 14 92/56 (68) 99 07/20/20 08:30 69 14 115/57 (76) 100 07/20/20 08:00 40 07/20/20 08:00 Mechanical Ventilator 07/20/20 08:00 97.6 81 14 94/57 (69) 100 07/20/20 08:00 78 07/20/20 07:30 76 14 94/57 (69) 100 07/20/20 07:00 15 Mechanical Ventilator 50 07/20/20 07:00 72 15 116/71 (86) 100 07/20/20 06:30 72 14 07/20/20 06:30 62 18 50 07/20/20 06:30 74 14 113/63 (80) 100 07/20/20 06:00 73 17 125/67 (86) 100 07/20/20 06:00 17 Mechanical Ventilator 50 07/20/20 05:28 112/62 07/20/20 05:00 72 16 117/63 (81) 100 07/20/20 05:00 16 Mechanical Ventilator 50 07/20/20 04:30 74 18 120/69 (86) 100 07/20/20 04:00 87 07/20/20 04:00 18 Mechanical Ventilator 50 07/20/20 04:00 50 07/20/20 04:00 97.5 80 19 111/63 (79) 100 07/20/20 04:00 Mechanical Ventilator 07/20/20 03:31 84 21 50 07/20/20 03:30 73 19 120/63 (82) 100 07/20/20 03:00 76 19 130/76 (94) 100 07/20/20 03:00 19 Mechanical Ventilator 55 07/20/20 02:30 76 16 116/63 (80) 100 07/20/20 02:00 79 16 97/55 (69) 99 07/20/20 02:00 16 Mechanical Ventilator 55 07/20/20 01:30 80 17 91/54 (66) 99 07/20/20 01:00 17 Mechanical Ventilator 55 07/20/20 01:00 80 17 89/56 (67) 99 07/20/20 00:30 77 17 89/53 (65) 99 07/20/20 00:00 Mechanical Ventilator 07/20/20 00:00 71 07/20/20 00:00 16 Mechanical Ventilator 55 07/20/20 00:00 98.2 73 16 91/57 (68) 99 07/20/20 00:00 55 07/19/20 23:30 73 14 94/49 (64) 100 07/19/20 23:03 78 18 55 07/19/20 23:00 15 Mechanical Ventilator 55 07/19/20 23:00 72 15 91/52 (65) 100 07/19/20 22:30 72 15 107/60 (76) 100 07/19/20 22:00 14 Mechanical Ventilator 55 07/19/20 22:00 68 14 104/62 (76) 100 07/19/20 21:30 71 14 98/57 (71) 100 07/19/20 21:00 14 Mechanical Ventilator 55 07/19/20 21:00 70 14 115/60 (78) 100 07/19/20 20:30 68 14 110/66 (81) 100 07/19/20 20:00 71 07/19/20 20:00 14 Mechanical Ventilator 55 07/19/20 20:00 97.9 71 14 102/58 (73) 100 07/19/20 20:00 55 07/19/20 20:00 Mechanical Ventilator 07/19/20 19:30 72 17 126/71 (89) 100 07/19/20 19:28 72 16 55 07/19/20 19:00 17 Mechanical Ventilator 55 07/19/20 19:00 72 17 129/69 (89) 100 07/19/20 18:30 76 20 130/70 (90) 100 07/19/20 18:00 18 Mechanical Ventilator 55 07/19/20 18:00 79 19 122/68 (86) 100 07/19/20 17:45 Mechanical Ventilator 07/19/20 17:30 98.5 82 22 109/56 (73) 100 07/19/20 17:00 84 18 90/52 (65) 100 07/19/20 17:00 83 20 90/52 (65) 100 07/19/20 16:30 83 17 86/46 (59) 100 07/19/20 16:30 79 17 106/55 (72) 99 07/19/20 16:00 Mechanical Ventilator 07/19/20 16:00 55 07/19/20 16:00 99.2 77 15 111/59 (76) 100 07/19/20 16:00 70 07/19/20 15:36 71 14 55 07/19/20 15:30 71 14 112/57 (75) 100 07/19/20 15:00 75 14 95/53 (67) 99 07/19/20 14:30 80 20 93/55 (68) 98 07/19/20 14:18 15 Mechanical Ventilator 55 07/19/20 14:17 15 Mechanical Ventilator 55 07/19/20 14:16 92/51 07/19/20 14:00 83 16 89/53 (65) 100 07/19/20 14:00 14 Mechanical Ventilator 55 07/19/20 13:30 81 17 90/49 (63) 100 07/19/20 13:00 15 Mechanical Ventilator 55 07/19/20 13:00 78 17 94/52 (66) 100 07/19/20 12:30 76 15 106/62 (77) 100 07/19/20 12:15 75 14 94/59 (71) 100 07/19/20 12:00 Mechanical Ventilator 07/19/20 12:00 15 Mechanical Ventilator 55 07/19/20 12:00 97.1 75 14 88/56 (67) 100 07/19/20 12:00 55 07/19/20 12:00 76 07/19/20 11:30 80 18 117/67 (84) 100 07/19/20 11:05 85 20 55 07/19/20 11:00 14 Mechanical Ventilator 55 07/19/20 11:00 79 20 101/54 (70) 99 Height (Feet): 5 Height (Inches): 4.00 Weight (Pounds): 130 Gen: sedated, intubated CV: RRR Pulm: Rhonchi anteriorly Abd: Soft, NTND Ext: No c/c/e Microbiology Date/Time Source Procedure Growth Status 07/18/20 22:56 Sputum Expectorated Gram Stain - Final Resulted 07/18/20 22:56 Sputum Culture - Preliminary Staphylococcus Aureus Resulted Laboratory Tests Test 07/19/20 12:13 07/19/20 17:56 07/19/20 23:50 07/20/20 05:27 POC Whole Blood Glucose 141 MG/DL (74-106) H Pending Pending White Blood Count 9.7 K/UL (4.8-10.8) Red Blood Count 3.18 M/UL (4.70-6.10) L Hemoglobin 9.5 G/DL (14.2-18.0) L Hematocrit 31.1 % (42.0-52.0) L Mean Corpuscular Volume 98 FL (80-99) Mean Corpuscular Hemoglobin 29.9 PG (27.0-31.0) Mean Corpuscular Hemoglobin Concent 30.6 G/DL (32.0-36.0) L Red Cell Distribution Width 15.5 % (11.6-14.8) H Platelet Count 406 K/UL (150-450) Mean Platelet Volume 8.4 FL (6.5-10.1) Neutrophils (%) (Auto) 78.2 % (45.0-75.0) H Lymphocytes (%) (Auto) 12.6 % (20.0-45.0) L Monocytes (%) (Auto) 6.6 % (1.0-10.0) Eosinophils (%) (Auto) 1.5 % (0.0-3.0) Basophils (%) (Auto) 1.2 % (0.0-2.0) Sodium Level 145 MMOL/L (136-145) Potassium Level 3.9 MMOL/L (3.5-5.1) Chloride Level 112 MMOL/L (98-107) H Carbon Dioxide Level 26 MMOL/L (21-32) Anion Gap 7 mmol/L (5-15) Blood Urea Nitrogen 17 mg/dL (7-18) Creatinine 1.1 MG/DL (0.55-1.30) Estimat Glomerular Filtration Rate > 60 mL/min (>60) Glucose Level 151 MG/DL (74-106) H Calcium Level 8.1 MG/DL (8.5-10.1) L Test 07/20/20 05:33 07/20/20 05:54 07/20/20 07:10 POC Whole Blood Glucose 149 MG/DL (74-106) H Phosphorus Level 3.3 MG/DL (2.5-4.9) Magnesium Level 2.4 MG/DL (1.8-2.4) Total Bilirubin 0.2 MG/DL (0.2-1.0) Direct Bilirubin 0.1 MG/DL (0.0-0.3) Aspartate Amino Transf (AST/SGOT) 24 U/L (15-37) Alanine Aminotransferase (ALT/SGPT) 28 U/L (12-78) Alkaline Phosphatase 212 U/L (46-116) H Total Protein 5.5 G/DL (6.4-8.2) L Albumin 1.4 G/DL (3.4-5.0) L Arterial Blood pH 7.487 (7.350-7.450) Arterial Blood Partial Pressure CO2 30.3 mmHg (35.0-45.0) L Arterial Blood Partial Pressure O2 115.1 mmHg (75.0-100.0) H Arterial Blood HCO3 22.4 mmol/L (22.0-26.0) Arterial Blood Oxygen Saturation 97.4 % (95-100) Arterial Blood Base Excess -0.5 (-2-2) Richard Test Positive Current Medications Medications (Trade) Dose Ordered Sig/Ankush Route PRN Reason Start Time Stop Time Status Last Admin Dose Admin Acetaminophen (Tylenol) 650 mg Q4H PRN ORAL Temp >100.5 07/03/20 20:30 08/02/20 20:29 07/16/20 22:39 Chlorhexidine Gluconate (Darcy-Hex 2%) 1 applic DAILY@2000 TOPIC 07/17/20 20:00 10/15/20 19:59 07/19/20 20:10 Dextrose (Dextrose 50%) 50 ml Q30M PRN IV Hypoglycemia 07/03/20 22:45 10/01/20 22:44 Heparin Sodium (Porcine) (Heparin 5000 units/ml) 5,000 units EVERY 12 HOURS SUBQ 07/03/20 21:00 08/17/20 20:59 07/20/20 08:03 Insulin Aspart (NovoLOG) EVERY 6 HOURS SUBQ 07/13/20 06:00 10/02/20 06:29 07/20/20 06:09 Lorazepam (Ativan 2mg/ml 1ml) 2 mg Q4H PRN IV For Anxiety 07/17/20 12:45 07/24/20 12:44 Meropenem 1 gm/ Sodium Chloride 55 ml @ 110 mls/hr Q12HR@0400,1600 IVPB 07/13/20 16:00 07/22/20 23:59 07/20/20 03:23 Micafungin Sodium 100 mg/Sodium Chloride 110 ml @ 110 mls/hr Q24H IVPB 07/18/20 16:00 07/25/20 15:59 07/19/20 16:23 Midazolam HCl 50 mg/Sodium Chloride 100 ml @ 0 mls/hr Q24H PRN IV Restlessness 07/19/20 14:00 07/21/20 13:46 07/19/20 14:17 Midodrine (Pro-Amatine) 5 mg TID ORAL 07/19/20 18:00 10/17/20 17:59 07/20/20 08:02 Morphine Sulfate (Morphine Sulfate) 4 mg Q4H PRN IVP For Pain 07/17/20 12:45 07/24/20 12:44 Nitroglycerin (Ntg) 0.4 mg Q5M PRN SL Prn Chest Pain 07/03/20 20:30 08/02/20 20:29 Norepinephrine Bitartrate 250 ml @ 0 mls/hr Q24H IV 07/17/20 15:50 07/20/20 15:49 07/20/20 05:28 Ondansetron HCl (Zofran) 4 mg Q6H PRN IVP Nausea & Vomiting 07/03/20 20:30 08/02/20 20:29 Pantoprazole (Protonix) 40 mg DAILY IV 07/18/20 09:00 08/17/20 08:59 07/20/20 08:02 Polyethylene Glycol (Miralax) 17 gm DAILYPRN PRN ORAL Constipation 07/03/20 20:30 08/02/20 20:29 Promethazine HCl/ Codeine (Phenergan with Codeine) 5 ml Q4H PRN ORAL For Cough 07/03/20 20:30 08/02/20 20:29 Sodium Chloride 1,000 ml @ 50 mls/hr Q20H IV 07/17/20 16:00 08/16/20 15:59 07/20/20 01:58 Tamsulosin HCl (Flomax) 0.4 mg BID ORAL 07/11/20 19:45 08/03/20 08:59 07/20/20 08:02 Ashley Cho M.D. Jul 20, 2020 10:59
--- NOTE | 2020-07-20 11:56 | NUR ---
NURSE NOTES: Consent for PICC line placement obtained from Michelle Gorman and verified by Carmen Mora RN. updated on fathers condition and answered her questions.
--- NOTE | 2020-07-20 11:59 | Nephrology Progress Note ---
Assessment/Plan Problem List: (1) Dehydration (2) MELANIE (acute kidney injury) (3) Renal failure (ARF), acute on chronic (4) Hypoxia (5) Acute encephalopathy (6) Electrolyte imbalance Assessment 79-year-old male is admitted with acute hypoxic respiratory failure most likely secondary to pneumonia and sepsis, UTI. Acute on chronic renal failure Dehydration Electrolyte imbalances, hypernatremia Hypoalbuminemia Diabetes type 2 History of congestive heart failure Hypertension Hyperlipemia Alzheimer's Previous COVID-19 infection in May 2020 Plan July 20: Remains intubated. Full code. Labs reviewed. Electrolytes within normal limit. Continue per consultants. July 19: In ICU. Remains intubated on ventilator. Remains full code. Low potassium addressed. Blood pressure fluctuating. Continue per consultants. July 18: Patient in ICU. Intubated on ventilator. On 6 mics of Levophed. Will give 100 cc albumin 25%. K-Phos IV ordered. Continue per consultants. Continue monitor renal parameters and electrolytes. July 17: Status unchanged. Transfer to [facility] for seizure. Stable from renal standpoint to view. Continue per consultants. July 16: Status quo. Labs reviewed. Renal parameters stable. Continue per consultants. July 15: On nonrebreather mask. Labs reviewed. Renal parameters stable.Continue per public housing manager. Clinically unchanged. July 14: On nonrebreather mask. Inflammatory markers gradually declining. Renal parameters stable. Continue per pulmonary. July 13: Remains on nonrebreather mask. Inflammatory markers remain elevated. Renal parameters somewhat stable. Continue per pulmonary and ID. Remains full code. July 12: Patient on nonrebreather mask. Labs noted. Serum creatinine down to 1.3. Continue per consultants. July 11: Patient on nonrebreather mask. Transfer to telemetry when seen this morning. Labs noted. Continue per consultants. Serum creatinine erin to 1.7. Continue to monitor renal parameters. Continue to monitor vancomycin level July 10: Patient is not doing well clinically. Mild respiratory distress. ABG noted. Somewhat hypoxic. CBC and chemistry panel ordered. Discussed with FLORES Cho. Will defer to pulmonary management to specialist. Continue per ID. Renal parameters remained stable as of July 09. July 09: Labs reviewed. Renal parameters stable. Continue per consultants. July 08: Labs reviewed. Potassium via NG tube ordered. IV fluids stopped. Continue per consultants. July 07: Labs reviewed. Low potassium and low phosphorus replaced. Continue per consultants. Remains stable from renal standpoint of view. July 06: Patient remains n.p.o. IV fluid down to 50 cc an hour. Potassium supplement intravenously ordered. Continue per consultants. Previously: Patient is n.p.o., will continue on IV fluid of D5W 75 cc an hour We will monitor electrolytes and renal parameters Avoid nephrotoxic's Start p.o. when he clears by speech therapist, meanwhile aspiration precautions Keep the blood pressure and blood sugar in check Per orders Subjective ROS Limited/Unobtainable: Yes Objective Objective Last 24 Hour Vital Signs Date Time Temp Pulse Resp B/P (MAP) Pulse Ox O2 Delivery O2 Flow Rate FiO2 07/20/20 11:00 15 Mechanical Ventilator 35 07/20/20 11:00 77 15 102/59 (73) 99 07/20/20 10:40 73 14 35 07/20/20 10:30 75 14 95/55 (68) 100 07/20/20 10:00 73 14 131/65 (87) 100 07/20/20 10:00 14 Mechanical Ventilator 40 07/20/20 09:30 71 14 96/53 (67) 99 07/20/20 09:00 14 Mechanical Ventilator 40 07/20/20 09:00 72 14 92/56 (68) 99 07/20/20 08:30 69 14 115/57 (76) 100 07/20/20 08:00 40 07/20/20 08:00 Mechanical Ventilator 07/20/20 08:00 97.6 81 14 94/57 (69) 100 07/20/20 08:00 78 07/20/20 08:00 14 Mechanical Ventilator 40 07/20/20 07:30 76 14 94/57 (69) 100 07/20/20 07:00 15 Mechanical Ventilator 50 07/20/20 07:00 72 15 116/71 (86) 100 07/20/20 06:30 72 14 07/20/20 06:30 62 18 50 07/20/20 06:30 74 14 113/63 (80) 100 07/20/20 06:00 73 17 125/67 (86) 100 07/20/20 06:00 17 Mechanical Ventilator 50 07/20/20 05:28 112/62 07/20/20 05:00 72 16 117/63 (81) 100 07/20/20 05:00 16 Mechanical Ventilator 50 07/20/20 04:30 74 18 120/69 (86) 100 07/20/20 04:00 87 07/20/20 04:00 18 Mechanical Ventilator 50 07/20/20 04:00 50 07/20/20 04:00 97.5 80 19 111/63 (79) 100 07/20/20 04:00 Mechanical Ventilator 07/20/20 03:31 84 21 50 07/20/20 03:30 73 19 120/63 (82) 100 07/20/20 03:00 76 19 130/76 (94) 100 07/20/20 03:00 19 Mechanical Ventilator 55 07/20/20 02:30 76 16 116/63 (80) 100 07/20/20 02:00 79 16 97/55 (69) 99 07/20/20 02:00 16 Mechanical Ventilator 55 07/20/20 01:30 80 17 91/54 (66) 99 07/20/20 01:00 17 Mechanical Ventilator 55 07/20/20 01:00 80 17 89/56 (67) 99 07/20/20 00:30 77 17 89/53 (65) 99 07/20/20 00:00 Mechanical Ventilator 07/20/20 00:00 71 07/20/20 00:00 16 Mechanical Ventilator 55 07/20/20 00:00 98.2 73 16 91/57 (68) 99 07/20/20 00:00 55 07/19/20 23:30 73 14 94/49 (64) 100 07/19/20 23:03 78 18 55 07/19/20 23:00 15 Mechanical Ventilator 55 07/19/20 23:00 72 15 91/52 (65) 100 07/19/20 22:30 72 15 107/60 (76) 100 07/19/20 22:00 14 Mechanical Ventilator 55 07/19/20 22:00 68 14 104/62 (76) 100 07/19/20 21:30 71 14 98/57 (71) 100 07/19/20 21:00 14 Mechanical Ventilator 55 07/19/20 21:00 70 14 115/60 (78) 100 07/19/20 20:30 68 14 110/66 (81) 100 07/19/20 20:00 71 07/19/20 20:00 14 Mechanical Ventilator 55 07/19/20 20:00 97.9 71 14 102/58 (73) 100 07/19/20 20:00 55 07/19/20 20:00 Mechanical Ventilator 07/19/20 19:30 72 17 126/71 (89) 100 07/19/20 19:28 72 16 55 07/19/20 19:00 17 Mechanical Ventilator 55 07/19/20 19:00 72 17 129/69 (89) 100 07/19/20 18:30 76 20 130/70 (90) 100 07/19/20 18:00 18 Mechanical Ventilator 55 07/19/20 18:00 79 19 122/68 (86) 100 07/19/20 17:45 Mechanical Ventilator 07/19/20 17:30 98.5 82 22 109/56 (73) 100 07/19/20 17:00 84 18 90/52 (65) 100 07/19/20 17:00 83 20 90/52 (65) 100 07/19/20 16:30 83 17 86/46 (59) 100 07/19/20 16:30 79 17 106/55 (72) 99 07/19/20 16:00 Mechanical Ventilator 07/19/20 16:00 55 07/19/20 16:00 99.2 77 15 111/59 (76) 100 07/19/20 16:00 70 07/19/20 15:36 71 14 55 07/19/20 15:30 71 14 112/57 (75) 100 07/19/20 15:00 75 14 95/53 (67) 99 07/19/20 14:30 80 20 93/55 (68) 98 07/19/20 14:18 15 Mechanical Ventilator 55 07/19/20 14:17 15 Mechanical Ventilator 55 07/19/20 14:16 92/51 07/19/20 14:00 83 16 89/53 (65) 100 07/19/20 14:00 14 Mechanical Ventilator 55 07/19/20 13:30 81 17 90/49 (63) 100 07/19/20 13:00 15 Mechanical Ventilator 55 07/19/20 13:00 78 17 94/52 (66) 100 07/19/20 12:30 76 15 106/62 (77) 100 07/19/20 12:15 75 14 94/59 (71) 100 07/19/20 12:00 Mechanical Ventilator 07/19/20 12:00 15 Mechanical Ventilator 55 07/19/20 12:00 97.1 75 14 88/56 (67) 100 07/19/20 12:00 55 07/19/20 12:00 76 Intake and Output 07/19/20 07/20/20 19:00 07:00 Intake Total 1755.875 ml 1496 ml Output Total 525 ml 660 ml Balance 1230.875 ml 836 ml Free Water 110 ml IV Total 1055.875 ml 826 ml Tube Feeding 550 ml 670 ml Other 40 ml Output Urine Total 525 ml 660 ml Laboratory Tests 07/19/20 12:13: POC Whole Blood Glucose 141H 07/19/20 17:56: POC Whole Blood Glucose [Pending] 07/19/20 23:50: POC Whole Blood Glucose [Pending] 07/20/20 05:27: White Blood Count 9.7, Red Blood Count 3.18L, Hemoglobin 9.5L, Hematocrit 31.1L, Mean Corpuscular Volume 98, Mean Corpuscular Hemoglobin 29.9, Mean Corpuscular Hemoglobin Concent 30.6L, Red Cell Distribution Width 15.5H, Platelet Count 406, Mean Platelet Volume 8.4, Neutrophils (%) (Auto) 78.2H, Lymphocytes (%) (Auto) 12.6L, Monocytes (%) (Auto) 6.6, Eosinophils (%) (Auto) 1.5, Basophils (%) (Auto) 1.2, Sodium Level 145, Potassium Level 3.9, Chloride Level 112H, Carbon Dioxide Level 26, Anion Gap 7, Blood Urea Nitrogen 17, Creatinine 1.1, Estimat Glomerular Filtration Rate > 60, Glucose Level 151H, Calcium Level 8.1L 07/20/20 05:33: POC Whole Blood Glucose 149H 07/20/20 05:54: Phosphorus Level 3.3, Magnesium Level 2.4, Total Bilirubin 0.2, Direct Bilirubin 0.1, Aspartate Amino Transf (AST/SGOT) 24, Alanine Aminotransferase (ALT/SGPT) 28, Alkaline Phosphatase 212H, Total Protein 5.5L, Albumin 1.4L 07/20/20 07:10: Arterial Blood pH 7.487H, Arterial Blood Partial Pressure CO2 30.3L, Arterial Blood Partial Pressure O2 115.1H, Arterial Blood HCO3 22.4, Arterial Blood Oxygen Saturation 97.4, Arterial Blood Base Excess -0.5, Rihcard Test Positive Height (Feet): 5 Height (Inches): 4.00 Weight (Pounds): 130 General Appearance: no apparent distress EENT: other - Remains intubated on mechanical ventilation Cardiovascular: normal rate, gallop/S3 Abdomen: distended Tino Connors MD Jul 20, 2020 11:59
--- NOTE | 2020-07-20 12:32 | NUR ---
Social Work This SW followed up with patient, currently in the ICU who is intubated, sedated, while patient has a history of dementia. This SW spoke with daughter, Michelle ([phone]) who is POA for patient (this SW requested POA documents from [facility] Medical Records, spoke with Samira to request POA documents, who explains patient does not have POA documents, while daughter listed as next of kin/decision maker). Daughter explains she does not want patient to be on a residential ventilator, requesting DNR. Pending progress; Medical team to assess medical plan and will contact daughter regarding recommendations/plan as needed. Daughter requesting comfort measures, if patient is not showing any improvements. This SW informed Dr Carreno and ICU nursing.
[2020-07-20] MEDS ORDERED: Heparin1,000 units/500ml Premix(Conc:2 units/ml) IV PRN (12:47)
[2020-07-20] MEDS ORDERED: Lidocaine 1% Plain 30 ml INJ PRN (12:48)
--- NOTE | 2020-07-20 13:10 | NUR ---
NURSE NOTES: Dr. Matt made rounds at the patient bedside, made aware there was no arrhythmias noted over the night or this morning so far. no new orders given at this time.
--- NOTE | 2020-07-20 13:20 | Diagnostic Imaging Report ---
Indication: Shortness of breath Technique: One view of the chest Comparison: 07/19/2020 Findings: Stable satisfactory positions of the orogastric and endotracheal tubes. Bilateral infiltrates versus edema and small bilateral pleural effusions are unchanged. Impression: Unchanged, over one day, findings as above.
--- NOTE | 2020-07-20 13:46 | NUR ---
NURSE NOTES: PICC line inserted on the right upper arm line, chest x-ray taken and awaiting for results to use the catheter
--- NOTE | 2020-07-20 14:34 | Brief Operative Note ---
Immediate Post Operative Note Operative Note Pre-op Diagnosis: needs bed bug exterminator IV access Procedure: PICC RUE Post-op Diagnosis: same as pre-op Surgeon: Darline Hayes Anesthesia: local Specimen: none Complications: none Fluids: none Implant(s) used?: No Marquis Hayes MD Jul 20, 2020 14:34
--- NOTE | 2020-07-20 14:45 | NUR ---
NURSE NOTES: Chest x-ray confirmation shows placement of picc line is at proper place and okay to use, picc line dressing is dry and intact, bio-patch is present and dressing is placed.
[2020-07-20] MEDS: Micafungin 100 MG in NS 110 ML IVPB SCH (15:22)
--- NOTE | 2020-07-20 15:22 | Cardiac Electrophysiology PN ---
Assessment/Plan Assessment/Plan 1. Accelerated junctional rhythm. Not bradycardic. Ruled out for PA Echo showed ejection fraction of 55%. 2. Long run of 31 beats of Nonsustained VT on 07/14/2020. Will need cardiac cath after stabilization. 3. Respiratory failure, on antibiotic and intubated on the vent 4. Septic shock. on LEvophed. 5. Acute renal failure. 6. Electrolyte imbalance. 7. History of CHF, but echocardiogram showed normal left ventricular systolic function. 8. History of previous COVID infection in May 2020 and active Covid now in isolation 9. Dementia. SHAYY RN Subjective Subjective In SR in NAD in Covid isolation. In ICU on the Vent with 55% Fio2 and 4 mcg of Levo. Had 31 beats of VT on 07/14/20 at 16:46 and 5 beats yesterday No VT overnight. Getting PICC line Objective Last 24 Hour Vital Signs Date Time Temp Pulse Resp B/P (MAP) Pulse Ox O2 Delivery O2 Flow Rate FiO2 07/20/20 14:00 81 16 134/72 (92) 100 07/20/20 13:00 79 15 117/64 (81) 100 07/20/20 12:30 76 14 116/62 (80) 100 07/20/20 12:00 76 07/20/20 12:00 99.1 74 14 93/52 (66) 98 07/20/20 12:00 Mechanical Ventilator 07/20/20 12:00 35 07/20/20 11:30 75 14 90/54 (66) 98 07/20/20 11:00 15 Mechanical Ventilator 35 07/20/20 11:00 77 15 102/59 (73) 99 07/20/20 10:40 73 14 35 07/20/20 10:30 75 14 95/55 (68) 100 07/20/20 10:00 73 14 131/65 (87) 100 07/20/20 10:00 14 Mechanical Ventilator 40 07/20/20 09:30 71 14 96/53 (67) 99 07/20/20 09:00 14 Mechanical Ventilator 40 07/20/20 09:00 72 14 92/56 (68) 99 07/20/20 08:30 69 14 115/57 (76) 100 07/20/20 08:00 40 07/20/20 08:00 Mechanical Ventilator 07/20/20 08:00 97.6 81 14 94/57 (69) 100 07/20/20 08:00 78 07/20/20 08:00 14 Mechanical Ventilator 40 07/20/20 07:30 76 14 94/57 (69) 100 07/20/20 07:00 15 Mechanical Ventilator 50 07/20/20 07:00 72 15 116/71 (86) 100 07/20/20 06:30 72 14 07/20/20 06:30 62 18 50 07/20/20 06:30 74 14 113/63 (80) 100 07/20/20 06:00 73 17 125/67 (86) 100 07/20/20 06:00 17 Mechanical Ventilator 50 07/20/20 05:28 112/62 07/20/20 05:00 72 16 117/63 (81) 100 07/20/20 05:00 16 Mechanical Ventilator 50 07/20/20 04:30 74 18 120/69 (86) 100 07/20/20 04:00 87 07/20/20 04:00 18 Mechanical Ventilator 50 07/20/20 04:00 50 07/20/20 04:00 97.5 80 19 111/63 (79) 100 07/20/20 04:00 Mechanical Ventilator 07/20/20 03:31 84 21 50 07/20/20 03:30 73 19 120/63 (82) 100 07/20/20 03:00 76 19 130/76 (94) 100 07/20/20 03:00 19 Mechanical Ventilator 55 07/20/20 02:30 76 16 116/63 (80) 100 07/20/20 02:00 79 16 97/55 (69) 99 07/20/20 02:00 16 Mechanical Ventilator 55 07/20/20 01:30 80 17 91/54 (66) 99 07/20/20 01:00 17 Mechanical Ventilator 55 07/20/20 01:00 80 17 89/56 (67) 99 07/20/20 00:30 77 17 89/53 (65) 99 07/20/20 00:00 Mechanical Ventilator 07/20/20 00:00 71 07/20/20 00:00 16 Mechanical Ventilator 55 07/20/20 00:00 98.2 73 16 91/57 (68) 99 07/20/20 00:00 55 07/19/20 23:30 73 14 94/49 (64) 100 07/19/20 23:03 78 18 55 07/19/20 23:00 15 Mechanical Ventilator 55 07/19/20 23:00 72 15 91/52 (65) 100 07/19/20 22:30 72 15 107/60 (76) 100 07/19/20 22:00 14 Mechanical Ventilator 55 07/19/20 22:00 68 14 104/62 (76) 100 07/19/20 21:30 71 14 98/57 (71) 100 07/19/20 21:00 14 Mechanical Ventilator 55 07/19/20 21:00 70 14 115/60 (78) 100 07/19/20 20:30 68 14 110/66 (81) 100 07/19/20 20:00 71 07/19/20 20:00 14 Mechanical Ventilator 55 07/19/20 20:00 97.9 71 14 102/58 (73) 100 07/19/20 20:00 55 07/19/20 20:00 Mechanical Ventilator 07/19/20 19:30 72 17 126/71 (89) 100 07/19/20 19:28 72 16 55 07/19/20 19:00 17 Mechanical Ventilator 55 07/19/20 19:00 72 17 129/69 (89) 100 07/19/20 18:30 76 20 130/70 (90) 100 07/19/20 18:00 18 Mechanical Ventilator 55 07/19/20 18:00 79 19 122/68 (86) 100 07/19/20 17:45 Mechanical Ventilator 07/19/20 17:30 98.5 82 22 109/56 (73) 100 07/19/20 17:00 84 18 90/52 (65) 100 07/19/20 17:00 83 20 90/52 (65) 100 07/19/20 16:30 83 17 86/46 (59) 100 07/19/20 16:30 79 17 106/55 (72) 99 07/19/20 16:00 Mechanical Ventilator 07/19/20 16:00 55 07/19/20 16:00 99.2 77 15 111/59 (76) 100 07/19/20 16:00 70 07/19/20 15:36 71 14 55 07/19/20 15:30 71 14 112/57 (75) 100 Intake and Output 07/19/20 07/20/20 19:00 07:00 Intake Total 1755.875 ml 1496 ml Output Total 525 ml 660 ml Balance 1230.875 ml 836 ml Free Water 110 ml IV Total 1055.875 ml 826 ml Tube Feeding 550 ml 670 ml Other 40 ml Output Urine Total 525 ml 660 ml Laboratory Tests Test 07/19/20 17:56 07/19/20 23:50 07/20/20 05:27 07/20/20 05:33 POC Whole Blood Glucose Pending Pending 149 MG/DL (74-106) H White Blood Count 9.7 K/UL (4.8-10.8) Red Blood Count 3.18 M/UL (4.70-6.10) L Hemoglobin 9.5 G/DL (14.2-18.0) L Hematocrit 31.1 % (42.0-52.0) L Mean Corpuscular Volume 98 FL (80-99) Mean Corpuscular Hemoglobin 29.9 PG (27.0-31.0) Mean Corpuscular Hemoglobin Concent 30.6 G/DL (32.0-36.0) L Red Cell Distribution Width 15.5 % (11.6-14.8) H Platelet Count 406 K/UL (150-450) Mean Platelet Volume 8.4 FL (6.5-10.1) Neutrophils (%) (Auto) 78.2 % (45.0-75.0) H Lymphocytes (%) (Auto) 12.6 % (20.0-45.0) L Monocytes (%) (Auto) 6.6 % (1.0-10.0) Eosinophils (%) (Auto) 1.5 % (0.0-3.0) Basophils (%) (Auto) 1.2 % (0.0-2.0) Sodium Level 145 MMOL/L (136-145) Potassium Level 3.9 MMOL/L (3.5-5.1) Chloride Level 112 MMOL/L (98-107) H Carbon Dioxide Level 26 MMOL/L (21-32) Anion Gap 7 mmol/L (5-15) Blood Urea Nitrogen 17 mg/dL (7-18) Creatinine 1.1 MG/DL (0.55-1.30) Estimat Glomerular Filtration Rate > 60 mL/min (>60) Glucose Level 151 MG/DL (74-106) H Calcium Level 8.1 MG/DL (8.5-10.1) L Test 07/20/20 05:54 07/20/20 07:10 07/20/20 12:33 Phosphorus Level 3.3 MG/DL (2.5-4.9) Magnesium Level 2.4 MG/DL (1.8-2.4) Total Bilirubin 0.2 MG/DL (0.2-1.0) Direct Bilirubin 0.1 MG/DL (0.0-0.3) Aspartate Amino Transf (AST/SGOT) 24 U/L (15-37) Alanine Aminotransferase (ALT/SGPT) 28 U/L (12-78) Alkaline Phosphatase 212 U/L (46-116) H Total Protein 5.5 G/DL (6.4-8.2) L Albumin 1.4 G/DL (3.4-5.0) L Arterial Blood pH 7.487 (7.350-7.450) Arterial Blood Partial Pressure CO2 30.3 mmHg (35.0-45.0) L Arterial Blood Partial Pressure O2 115.1 mmHg (75.0-100.0) H Arterial Blood HCO3 22.4 mmol/L (22.0-26.0) Arterial Blood Oxygen Saturation 97.4 % (95-100) Arterial Blood Base Excess -0.5 (-2-2) Richard Test Positive POC Whole Blood Glucose 134 MG/DL (74-106) H Microbiology Date/Time Source Procedure Growth Status 07/18/20 22:56 Sputum Expectorated Gram Stain - Final Resulted 07/18/20 22:56 Sputum Culture - Preliminary Staphylococcus Aureus Resulted Objective HEAD AND NECK: No JVD. Orally intubated LUNGS: Coarse rhonchi. CARDIOVASCULAR: Irregular S1 and S2 with no gallop. ABDOMEN: Soft. EXTREMITIES: No pitting edema. Klever Matt MD Jul 20, 2020 15:22
--- NOTE | 2020-07-20 16:00 | NUR ---
NURSE NOTES: new order for Levophed obtained from Dr. Carreno. will start running Levophed through picc line and new tubbing.
[2020-07-20] MEDS: Midazolam for drip 50 MG in NS 90 ML IV PRN (17:09)
--- NOTE | 2020-07-20 17:15 | Diagnostic Imaging Report ---
Indications: Needs long-term IV access Technique: Procedure performed at bedside. Procedural timeout performed. Ultrasound confirms patent compressible right basilic vein. Total sterile technique, including sterile probe cover and sterile gel, sterile gloves, hand hygiene, hat, mask,, sterile gown, large sterile drape, and preparation with 2% chlorhexidine utilized. Local anesthesia with 1% lidocaine. Under real-time ultrasound guidance, puncture basilic vein using 21-gauge needle, passage 0.018 guidewire, exchange for 4 Liberian peel-away sheath. 4 Liberian Bard dual-lumen power PICC cut to 43 cm. It was inserted through the peel-away sheath. Peel-away sheath and guidewire removed. Catheter fixed to the skin. Both catheter ports aspirated and flushed. Patient tolerated procedure well, without immediate complication. Followup chest x-ray obtained, documents catheter tip position at the cavoatrial junction Impression: Successful bedside placement of right arm PICC under sonographic guidance, as described above.
--- NOTE | 2020-07-20 17:36 | NUR ---
CASE MANAGEMENT:REVIEW SI: COVID PNA 99.1 85 16 92/56 99% ETT/MECH VENT AC 14 RV 600 FIO2 35% H/H 9.5/31.1 ALB 1.4 IS;LEVOPHED GTT VERSED IV MICAFUNGIN IV IVF NS @ 50 ML/HR MEROPENEM IV HEPARIN SUBQ Q12 ICU STATUS DCP;FROM [facility]
--- NOTE | 2020-07-20 18:30 | NUR ---
NURSE NOTES: Levophed increased to 4mcg/min after due to bp of 86/56 with heart rate at 81 in sinus rhythm, tube feeding remains at 60ml/hr. urine remains at clear and straw colored with no sediment, also remains on versed at 2mg/hr at rate of 4ml/hr.
--- NOTE | 2020-07-20 19:08 | NUR ---
NURSE HAND-OFF REPORT: Latest Vital Signs: Temperature 97.6 , Pulse 78 , B/P 107 /58 , Respiratory Rate 15 , O2 SAT 96 , Mechanical Ventilator, O2 Flow Rate . Vital Sign Comment: EKG Rhythm: Sinus Rhythm Rhythm change?: N Notified?: Grecia Matt MD Response: Latest Gonzalez Fall Score: 70 Fall Risk: High Risk Safety Measures: Call light Within Reach, Bed Alarm Zone 1, Side Rails Side Rails x3, Bed position Low and Locked. Fall Precautions: Yellow Socks Yellow Gown Door Sign Patient Fall Education Report given to FLORES Gallagher. reamins on versed at 2mg/hr at 4ml/hr and levophed at 4mcg/min. .
--- NOTE | 2020-07-20 19:19 | Internal Med Progress Note ---
Subjective Date of Service: Jul 20, 2020 Physician Name Dano Groves Attending Physician Ahsan Hodges MD Current Medications Medications (Trade) Dose Ordered Sig/Ankush Route PRN Reason Start Time Stop Time Status Last Admin Dose Admin Acetaminophen (Tylenol) 650 mg Q4H PRN ORAL Temp >100.5 07/03/20 20:30 08/02/20 20:29 07/16/20 22:39 Chlorhexidine Gluconate (Darcy-Hex 2%) 1 applic DAILY@1999 TOPIC 07/17/20 20:00 10/15/20 19:59 07/19/20 20:10 Dextrose (Dextrose 50%) 50 ml Q30M PRN IV Hypoglycemia 07/03/20 22:45 10/01/20 22:44 Heparin Sodium (Porcine) (Heparin 5000 units/ml) 5,000 units EVERY 12 HOURS SUBQ 07/03/20 21:00 08/17/20 20:59 07/20/20 08:03 Heparin Sodium/ Sodium Chloride (Heparin 1000 units/500ml Premix) 1,000 unit ONCE PRN IV PROCEDURE 07/20/20 12:47 07/20/20 23:59 Insulin Aspart (NovoLOG) EVERY 6 HOURS SUBQ 07/13/20 06:00 10/02/20 06:29 07/20/20 06:09 Lidocaine HCl (Xylocaine 1% 30ml) 30 ml ONCE PRN INJ PROCEDURE 07/20/20 12:48 07/20/20 23:59 Lorazepam (Ativan 2mg/ml 1ml) 2 mg Q4H PRN IV For Anxiety 07/17/20 12:45 07/24/20 12:44 Meropenem 1 gm/ Sodium Chloride 55 ml @ 110 mls/hr Q12HR@0400,1600 IVPB 07/13/20 16:00 07/22/20 23:59 07/20/20 15:22 Micafungin Sodium 100 mg/Sodium Chloride 110 ml @ 110 mls/hr Q24H IVPB 07/18/20 16:00 07/25/20 15:59 07/20/20 15:22 Midazolam HCl 50 mg/Sodium Chloride 100 ml @ 0 mls/hr Q24H PRN IV Restlessness 07/19/20 14:00 07/21/20 13:46 07/20/20 17:09 Midodrine (Pro-Amatine) 5 mg TID ORAL 07/19/20 18:00 10/17/20 17:59 07/20/20 17:08 Morphine Sulfate (Morphine Sulfate) 4 mg Q4H PRN IVP For Pain 07/17/20 12:45 07/24/20 12:44 Nitroglycerin (Ntg) 0.4 mg Q5M PRN SL Prn Chest Pain 07/03/20 20:30 08/02/20 20:29 Norepinephrine Bitartrate 250 ml @ 0 mls/hr Q24H IV 07/20/20 15:45 07/23/20 15:44 07/20/20 17:07 Ondansetron HCl (Zofran) 4 mg Q6H PRN IVP Nausea & Vomiting 07/03/20 20:30 08/02/20 20:29 Pantoprazole (Protonix) 40 mg DAILY IV 07/18/20 09:00 08/17/20 08:59 07/20/20 08:02 Polyethylene Glycol (Miralax) 17 gm DAILYPRN PRN ORAL Constipation 07/03/20 20:30 08/02/20 20:29 Promethazine HCl/ Codeine (Phenergan with Codeine) 5 ml Q4H PRN ORAL For Cough 07/03/20 20:30 08/02/20 20:29 Sodium Chloride 1,000 ml @ 50 mls/hr Q20H IV 07/17/20 16:00 08/16/20 15:59 07/20/20 01:58 Tamsulosin HCl (Flomax) 0.4 mg BID ORAL 07/11/20 19:45 08/03/20 08:59 07/20/20 17:07 Allergies: Coded Allergies: No Known Allergies (Unverified , 04/30/12) ROS Limited/Unobtainable: Yes Subjective 79 YO M admitted with shortness of breath. Now pneumonia; previously COVID positive. Cover for Int laina-Dr Hodges. ICU. Intubated and sedated Objective Last Vital Signs Date Time Temp Pulse Resp B/P (MAP) Pulse Ox O2 Delivery O2 Flow Rate FiO2 07/20/20 19:00 15 Mechanical Ventilator 35 07/20/20 19:00 78 107/58 (74) 96 07/20/20 16:00 97.6 07/17/20 12:00 15.0 Laboratory Tests Test 07/19/20 23:50 07/20/20 05:27 07/20/20 05:33 07/20/20 05:54 POC Whole Blood Glucose Pending 149 MG/DL (74-106) H White Blood Count 9.7 K/UL (4.8-10.8) Red Blood Count 3.18 M/UL (4.70-6.10) L Hemoglobin 9.5 G/DL (14.2-18.0) L Hematocrit 31.1 % (42.0-52.0) L Mean Corpuscular Volume 98 FL (80-99) Mean Corpuscular Hemoglobin 29.9 PG (27.0-31.0) Mean Corpuscular Hemoglobin Concent 30.6 G/DL (32.0-36.0) L Red Cell Distribution Width 15.5 % (11.6-14.8) H Platelet Count 406 K/UL (150-450) Mean Platelet Volume 8.4 FL (6.5-10.1) Neutrophils (%) (Auto) 78.2 % (45.0-75.0) H Lymphocytes (%) (Auto) 12.6 % (20.0-45.0) L Monocytes (%) (Auto) 6.6 % (1.0-10.0) Eosinophils (%) (Auto) 1.5 % (0.0-3.0) Basophils (%) (Auto) 1.2 % (0.0-2.0) Sodium Level 145 MMOL/L (136-145) Potassium Level 3.9 MMOL/L (3.5-5.1) Chloride Level 112 MMOL/L (98-107) H Carbon Dioxide Level 26 MMOL/L (21-32) Anion Gap 7 mmol/L (5-15) Blood Urea Nitrogen 17 mg/dL (7-18) Creatinine 1.1 MG/DL (0.55-1.30) Estimat Glomerular Filtration Rate > 60 mL/min (>60) Glucose Level 151 MG/DL (74-106) H Calcium Level 8.1 MG/DL (8.5-10.1) L Phosphorus Level 3.3 MG/DL (2.5-4.9) Magnesium Level 2.4 MG/DL (1.8-2.4) Total Bilirubin 0.2 MG/DL (0.2-1.0) Direct Bilirubin 0.1 MG/DL (0.0-0.3) Aspartate Amino Transf (AST/SGOT) 24 U/L (15-37) Alanine Aminotransferase (ALT/SGPT) 28 U/L (12-78) Alkaline Phosphatase 212 U/L (46-116) H Total Protein 5.5 G/DL (6.4-8.2) L Albumin 1.4 G/DL (3.4-5.0) L Test 07/20/20 07:10 07/20/20 12:33 Arterial Blood pH 7.487 (7.350-7.450) Arterial Blood Partial Pressure CO2 30.3 mmHg (35.0-45.0) L Arterial Blood Partial Pressure O2 115.1 mmHg (75.0-100.0) H Arterial Blood HCO3 22.4 mmol/L (22.0-26.0) Arterial Blood Oxygen Saturation 97.4 % (95-100) Arterial Blood Base Excess -0.5 (-2-2) Richard Test Positive POC Whole Blood Glucose 134 MG/DL (74-106) H Microbiology Date/Time Source Procedure Growth Status 07/18/20 22:56 Sputum Expectorated Gram Stain - Final Resulted 07/18/20 22:56 Sputum Culture - Preliminary Staphylococcus Aureus Resulted Intake and Output 07/19/20 07/20/20 19:00 07:00 Intake Total 1755.875 ml 1496 ml Output Total 525 ml 660 ml Balance 1230.875 ml 836 ml Free Water 110 ml IV Total 1055.875 ml 826 ml Tube Feeding 550 ml 670 ml Other 40 ml Output Urine Total 525 ml 660 ml Objective PHYSICAL EXAMINATION: GENERAL: The patient awake with deep stimuli, open his eyes, however, cannot follow commands. The patient is on a Ventimask at this time, chronically ill-appearing. HEAD AND NECK: Pupils are equal and reactive to light. Anicteric. NECK: Supple. No JVD. LUNGS: Mech vent; wheezing, rhonchi, and decreased air in bases. HEART: S1, S2. Regular rhythm. Distant heart sounds. No murmur or gallop. ABDOMEN: Soft, nondistended, nontender. Positive bowel sounds. EXTREMITIES: No cyanosis, clubbing, or edema. NEUROLOGIC: Very limited secondary to the patient's status, cannot follow commands. Opens his eyes with deep stimuli and moving extremities spontaneously. Assessment/Plan Assessment/Plan ASSESSMENT: 1. Acute hypoxemic respiratory failure, most likely secondary to pneumonia and sepsis. 2. Sepsis secondary to urinary tract infection and pneumonia. 3. pneumonia=MRSA; ESBL E. coli 4. Acute kidney injury on chronic renal insufficiency. 5. Dehydration. 6. History of chronic congestive heart failure. 7. Diabetes type 2. 8. Dyslipidemia. 9. Hypertension. 10. Alzheimer's disease. 11. COVID 19 previous positive PLAN: 1. ICU 2. Dr. Carreno,=Pulmonary Critical Care; follow [facility] vent recs 3. Dr. Cho = Inf Dis. 4. IV= D5W due to the hypernatremia and dehydration. 5. antibiotics = micafungin and meropenem 6. Code status is full code. 7. DVT prophylaxis is heparin subcutaneous. Dano Groves MD Jul 20, 2020 19:19
--- NOTE | 2020-07-20 19:26 | NUR ---
RESPIRATORY NOTE: Received pt on AC 14, 600VT, 35%, no PEEP. Pt intubated w/ ETT 7.5 @ 25cm lipline, secured by anchorfast. Pt sedated, OPA in place as pt tends to bite ETT. B/S christian. rales/rhonchi, sxn large amounts of thick/frothy, white to pale-yellow secretions. Vent plugged into red outlet, ambubag at bedside. Pt in no apparent distress at this time. Will continue to monitor pt.
--- NOTE | 2020-07-20 19:30 | NUR ---
NURSE NOTES: Received report from FLORES Walker. Patient is sedated in bed. Orally intubated. ETT 7.5/25cm at lip line. AC 14, TV 600, FiO2 35%. O2 sat 96%. Given suction and oral care. On residential monitor with SR. Pt has NGT and in placed and on running with Glucerna 1.2 at 60cc/hr and noted 100cc residual. Wiley in place draining to gravity. Right femoral TLC dressing is clean and dry. Pt has new PICC line on Rt. upper arm and dressing clean and dry with Biopatch. On running with Levophed @ 4mcg/min and Versed at 2mg/hr with RASS -2. 1/2NS is running at 50cc/hr. No sign of pain by FLACC scale. Dressing is clean and dry on wound area. On P200 mattress for wound management. BT checked 98.9F. Keep cooling measure. Pt has bilateral soft restraint and checked comfort and circulation. Trying to release restraint but still trying to reach ETT. Placed fall precaution. Proper airborne isolation for COVID-19. Will continue plan of care.
[2020-07-20] MEDS: Dyna-Hex 2% Top Sol 2oz TOPIC SCH (19:54)
[2020-07-21] VITALS (49 sets, daily range): BP systolic 93–142; BP diastolic 52–99
--- NOTE | 2020-07-21 | NUR ---
NURSE NOTES: Pt is sedated on the bed RASS -2. On running with Levophed drip @ 4mcg/min, Versed @ 2mg/hr and 1/2NS @ 50cc/hr. Noted BP 109/63mmHg. BT checked 99.F by rectal. Keep cooling measure. SaO2 97% with current Vent setting. Tolerated well with NGT feeding. Repositioned Pt. Placed fall precaution. Will continue to monitor any change of condition.
[2020-07-21] MEDS: NovoLOG Insulin Flexpen SUBQ SCH ×4 (00:07→18:29)
--- NOTE | 2020-07-21 01:00 | NUR ---
NURSE NOTES: Noted BP 129/99mmHg. Decrease Levophed gtt @ 3mcg/min. Will continue to monitor.
--- NOTE | 2020-07-21 02:00 | NUR ---
NURSE NOTES: Pt is sedated on the bed and SaO2 100% with Current Vent setting. Given suction and oral care. Changed position. Will continue to care plan.
--- NOTE | 2020-07-21 04:00 | NUR ---
NURSE NOTES: Morning care was done. Cleaned Pt and applied lotion and cream. On running with Levophed drip @ 3mcg/min. RASS-2 and on running with Versed @ 2mg/hr. Tolerated well with NGT feeding. Turn and reposition. Will continue to care plan.
[2020-07-21] MEDS: Meropenem 1 GM in NS 55 ML IVPB SCH ×2 (04:01→16:28)
--- NOTE | 2020-07-21 06:00 | NUR ---
NURSE NOTES: Pt is sedated on the bed and on running with Versed drip @ 2mg/hr and RASS -2. Levophed drip @ 3mcg/min as titrated. No sign of pain by FLACC scale. Given suction and oral care. Change position. Tolerated well with current NGT feeding and SaO2 100% noted. Will continue to monitor any change of condition.
[2020-07-21 06:14] LABS: BASOPHILS % (AUTO) 0.7 % (0.0-2.0); EOSINOPHILS % (AUTO) 1.5 % (0.0-3.0); HEMATOCRIT 28.4 % (42.0-52.0); HEMOGLOBIN 8.7 G/DL (14.2-18.0); LYMPHOCYTES % (AUTO) 19.3 % (20.0-45.0); MEAN CORPUSCULAR VOLUME 98 FL (80-99); MONOCYTES % (AUTO) 5.6 % (1.0-10.0); PLATELET COUNT 309 K/UL (150-450); RED BLOOD COUNT 2.91 M/UL (4.70-6.10); RED CELL DISTRIBUTION WIDTH 15.1 % (11.6-14.8); WHITE BLOOD COUNT 9.4 K/UL (4.8-10.8)
[2020-07-21 07:17] LABS: ALANINE AMINOTRANSFERASE 27 U/L (12-78); ALBUMIN 1.2 G/DL (3.4-5.0); ALBUMIN/GLOBULIN RATIO 0.3 (1.0-2.7); ALKALINE PHOSPHATASE 175 U/L (46-116); ANION GAP 6 mmol/L (5-15); ASPARTATE AMINO TRANSFERASE 26 U/L (15-37); BILIRUBIN,TOTAL 0.2 MG/DL (0.2-1.0); BLOOD UREA NITROGEN 13 mg/dL (7-18); CALCIUM 7.5 MG/DL (8.5-10.1); CARBON DIOXIDE 25 MMOL/L (21-32); CHLORIDE 111 MMOL/L (98-107); CREATININE 0.9 MG/DL (0.55-1.30); PHOSPHORUS 2.7 MG/DL (2.5-4.9); POTASSIUM 4.1 MMOL/L (3.5-5.1); SODIUM 142 MMOL/L (136-145)
--- NOTE | 2020-07-21 07:35 | NUR ---
NURSE HAND-OFF REPORT: Latest Vital Signs: Temperature 98.4 , Pulse 80 , B/P 103 /54 , Respiratory Rate 14 , O2 SAT 98 , Mechanical Ventilator, O2 Flow Rate . Vital Sign Comment: EKG Rhythm: Sinus Rhythm Rhythm change?: Donnie EDUARDO Notified?: Grecia Matt MD Response: Latest Gonzalez Fall Score: 70 Fall Risk: High Risk Safety Measures: Call light Within Reach, Bed Alarm Zone 1, Side Rails Side Rails x3, Bed position Low and Locked. Fall Precautions: Yellow Socks Yellow Gown Door Sign Patient Fall Education Report given to FLORES Griffith. Pt is sedated on the bed and RASS -2 and on running with Levophed @ 3mcg/min and Versed @ 2mg/hr(4cc/hr) and 1/2NS @ 50cc/hr.
--- NOTE | 2020-07-21 07:40 | NUR ---
NURSE NOTES: RECEIVED REPORT FROM FLORES SMITH. PT IN BED, SEDATED. RASS-2. OPENS EYES TO SHAKING. PUPILS 3MM SLUGGISH. RESPONSIBLE TO DEEP PAIN. SR ON THE MONITOR. BP STABLE ON PRESSORS. COOLING BLANKET ON, RECTAL TEMP. INTUBATED ETT 7.5, 25CM AT THE LIP. VENT SETTINGS: AC 14, VT 600, PEEP 0, FI02 35%. LOTS OF THICK SECRETIONS. RHONCHI BILATERAL. RT NGT. TUBE FEEDING GLUCERNA 1.2, AT 60ML/HR. ABDOMEN SOFT. NO BM AT THIS TIME. TIERNEY IN PLACE, URINE . ON P 200 MATTRESS. SOFT WRIST RESTRAINTS IN PLACE. AIRBORNE ISOLATION IN PLACE. WILL CONTINUE TO MONITOR PT.
--- NOTE | 2020-07-21 08:41 | NUR ---
NURSE NOTES: tech here to do cxry. pt in no acute distress.
[2020-07-21] MEDS: Pantoprazole Inj IV SCH (08:56)
[2020-07-21] MEDS: Tamsulosin 0.4mg cap ORAL SCH ×2 (08:56→17:18)
[2020-07-21] MEDS: Heparin 5000 units/ml inj SUBQ SCH ×2 (08:59→20:47)
--- NOTE | 2020-07-21 09:17 | Nephrology Progress Note ---
Assessment/Plan Problem List: (1) Dehydration (2) MELANIE (acute kidney injury) (3) Renal failure (ARF), acute on chronic (4) Hypoxia (5) Acute encephalopathy (6) Electrolyte imbalance Assessment 79-year-old male is admitted with acute hypoxic respiratory failure most likely secondary to pneumonia and sepsis, UTI. Acute on chronic renal failure Dehydration Electrolyte imbalances, hypernatremia Hypoalbuminemia Diabetes type 2 History of congestive heart failure Hypertension Hyperlipemia Alzheimer's Previous COVID-19 infection in May 2020 Plan July 21: Intubated. Full code. Labs reviewed. Stable from renal standpoint of view. Continue per consultants. July 20: Remains intubated. Full code. Labs reviewed. Electrolytes within normal limit. Continue per consultants. July 19: In ICU. Remains intubated on ventilator. Remains full code. Low potassium addressed. Blood pressure fluctuating. Continue per consultants. July 18: Patient in ICU. Intubated on ventilator. On 6 mics of Levophed. Will give 100 cc albumin 25%. K-Phos IV ordered. Continue per consultants. Continue monitor renal parameters and electrolytes. July 17: Status unchanged. Transfer to [facility] for seizure. Stable from renal standpoint to view. Continue per consultants. July 16: Status quo. Labs reviewed. Renal parameters stable. Continue per consultants. July 15: On nonrebreather mask. Labs reviewed. Renal parameters stable.Continue per resident services manager. Clinically unchanged. July 14: On nonrebreather mask. Inflammatory markers gradually declining. Renal parameters stable. Continue per pulmonary. July 13: Remains on nonrebreather mask. Inflammatory markers remain elevated. Renal parameters somewhat stable. Continue per pulmonary and ID. Remains full code. July 12: Patient on nonrebreather mask. Labs noted. Serum creatinine down to 1.3. Continue per consultants. July 11: Patient on nonrebreather mask. Transfer to telemetry when seen this morning. Labs noted. Continue per consultants. Serum creatinine erin to 1.7. Continue to monitor renal parameters. Continue to monitor vancomycin level July 10: Patient is not doing well clinically. Mild respiratory distress. ABG noted. Somewhat hypoxic. CBC and chemistry panel ordered. Discussed with FLORES Cho. Will defer to pulmonary management to specialist. Continue per ID. Renal parameters remained stable as of July 09. July 09: Labs reviewed. Renal parameters stable. Continue per consultants. July 08: Labs reviewed. Potassium via NG tube ordered. IV fluids stopped. Continue per consultants. July 07: Labs reviewed. Low potassium and low phosphorus replaced. Continue per consultants. Remains stable from renal standpoint of view. July 06: Patient remains n.p.o. IV fluid down to 50 cc an hour. Potassium supplement intravenously ordered. Continue per consultants. Previously: Patient is n.p.o., will continue on IV fluid of D5W 75 cc an hour We will monitor electrolytes and renal parameters Avoid nephrotoxic's Start p.o. when he clears by speech therapist, meanwhile aspiration precautions Keep the blood pressure and blood sugar in check Per orders Subjective ROS Limited/Unobtainable: Yes Objective Objective Last 24 Hour Vital Signs Date Time Temp Pulse Resp B/P (MAP) Pulse Ox O2 Delivery O2 Flow Rate FiO2 07/21/20 08:30 84 17 103/58 (73) 98 07/21/20 08:15 82 15 123/64 (83) 99 07/21/20 08:00 98.9 83 14 113/66 (82) 100 07/21/20 07:20 84 14 35 07/21/20 07:00 80 14 103/54 (70) 98 07/21/20 07:00 14 Mechanical Ventilator 35 07/21/20 06:30 80 15 107/61 (76) 98 07/21/20 06:30 81 15 07/21/20 06:00 79 15 121/64 (83) 100 07/21/20 06:00 15 Mechanical Ventilator 35 07/21/20 05:30 79 14 107/62 (77) 99 07/21/20 05:00 79 14 109/61 (77) 100 07/21/20 05:00 14 Mechanical Ventilator 35 07/21/20 04:30 78 14 104/64 (77) 100 07/21/20 04:00 35 07/21/20 04:00 Mechanical Ventilator 07/21/20 04:00 98.4 79 16 119/63 (81) 100 07/21/20 04:00 16 Mechanical Ventilator 35 07/21/20 04:00 78 07/21/20 03:30 80 15 117/67 (84) 98 07/21/20 03:09 80 15 35 07/21/20 03:00 82 16 117/68 (84) 98 11/10/20 03:00 16 Mechanical Ventilator 35 07/21/20 02:30 86 19 117/72 (87) 97 07/21/20 02:00 18 Mechanical Ventilator 35 07/21/20 02:00 81 18 121/66 (84) 100 07/21/20 01:30 81 19 103/63 (76) 100 07/21/20 01:00 17 Mechanical Ventilator 35 07/21/20 01:00 86 19 129/99 (109) 100 07/21/20 00:30 82 14 118/62 (80) 99 07/21/20 00:00 99.0 85 16 109/63 (78) 97 07/21/20 00:00 88 07/21/20 00:00 16 Mechanical Ventilator 35 07/21/20 00:00 Mechanical Ventilator 07/21/20 00:00 35 07/20/20 23:30 87 15 100/56 (71) 97 07/20/20 23:00 16 Mechanical Ventilator 35 07/20/20 23:00 78 14 111/58 (75) 97 07/20/20 22:56 78 14 35 07/20/20 22:30 79 14 105/60 (75) 96 07/20/20 22:00 16 Mechanical Ventilator 35 07/20/20 22:00 81 16 118/66 (83) 100 07/20/20 21:30 86 19 127/67 (87) 100 07/20/20 21:25 86 21 35 07/20/20 21:00 15 Mechanical Ventilator 35 07/20/20 21:00 19 Mechanical Ventilator 35 07/20/20 21:00 82 19 124/62 (82) 99 07/20/20 20:30 83 16 96/57 (70) 97 07/20/20 20:00 Mechanical Ventilator 07/20/20 20:00 98.9 83 15 100/55 (70) 96 07/20/20 20:00 15 Mechanical Ventilator 35 07/20/20 20:00 35 07/20/20 20:00 82 07/20/20 19:30 82 16 93/57 (69) 97 07/20/20 19:23 82 16 35 07/20/20 19:00 15 Mechanical Ventilator 35 07/20/20 19:00 78 15 107/58 (74) 96 07/20/20 18:30 85 20 85/54 (64) 94 07/20/20 18:00 78 15 107/58 (74) 96 07/20/20 18:00 15 Mechanical Ventilator 35 07/20/20 17:30 59 14 149/76 (100) 100 07/20/20 17:09 14 Mechanical Ventilator 35 07/20/20 17:07 93/55 07/20/20 17:00 15 Mechanical Ventilator 35 07/20/20 17:00 75 15 92/56 (68) 99 07/20/20 16:30 85 16 105/60 (75) 99 07/20/20 16:00 35 07/20/20 16:00 97.6 75 14 112/66 (81) 100 07/20/20 16:00 14 Mechanical Ventilator 35 07/20/20 16:00 Mechanical Ventilator 07/20/20 16:00 71 07/20/20 15:30 75 15 120/62 (81) 100 07/20/20 15:00 79 16 128/65 (86) 98 07/20/20 15:00 15 Mechanical Ventilator 35 07/20/20 14:40 82 16 35 07/20/20 14:30 80 16 134/72 (92) 99 07/20/20 14:00 14 Mechanical Ventilator 35 07/20/20 14:00 81 16 134/72 (92) 100 07/20/20 13:00 15 Mechanical Ventilator 35 07/20/20 13:00 79 15 117/64 (81) 100 07/20/20 12:30 76 14 116/62 (80) 100 07/20/20 12:00 76 07/20/20 12:00 99.1 74 14 93/52 (66) 98 07/20/20 12:00 Mechanical Ventilator 07/20/20 12:00 14 Mechanical Ventilator 35 07/20/20 12:00 35 07/20/20 11:30 75 14 90/54 (66) 98 07/20/20 11:00 15 Mechanical Ventilator 40 07/20/20 11:00 15 Mechanical Ventilator 35 07/20/20 11:00 77 15 102/59 (73) 99 07/20/20 10:40 73 14 35 07/20/20 10:30 75 14 95/55 (68) 100 07/20/20 10:00 73 14 131/65 (87) 100 07/20/20 10:00 14 Mechanical Ventilator 40 07/20/20 09:30 71 14 96/53 (67) 99 Intake and Output 07/20/20 07/21/20 19:00 07:00 Intake Total 1938.55439 ml 1580.30 ml Output Total 1100 ml 1450 ml Balance 838.93154 ml 130.30 ml Free Water 210 ml IV Total 1008.43643 ml 860.30 ml Tube Feeding 720 ml 720 ml Output Urine Total 1100 ml 1450 ml Laboratory Tests 07/20/20 12:33: POC Whole Blood Glucose 134H 07/20/20 17:37: POC Whole Blood Glucose 129H 07/20/20 23:52: POC Whole Blood Glucose [Pending] 07/21/20 05:39: POC Whole Blood Glucose 136H 07/21/20 05:45: White Blood Count 9.4, Red Blood Count 2.91L, Hemoglobin 8.7L, Hematocrit 28.4L, Mean Corpuscular Volume 98, Mean Corpuscular Hemoglobin 30.0, Mean Corpuscular Hemoglobin Concent 30.7L, Red Cell Distribution Width 15.1H, Platelet Count 309, Mean Platelet Volume 8.7, Neutrophils (%) (Auto) 73.0, Lymphocytes (%) (Auto) 19.3L, Monocytes (%) (Auto) 5.6, Eosinophils (%) (Auto) 1.5, Basophils (%) (Auto) 0.7, Sodium Level 142, Potassium Level 4.1, Chloride Level 111H, Carbon Dioxide Level 25, Anion Gap 6, Blood Urea Nitrogen 13, Creatinine 0.9, Estimat Glomerular Filtration Rate > 60, Glucose Level 146H, Calcium Level 7.5L, Phosphorus Level 2.7, Magnesium Level 2.3, Total Bilirubin 0.2, Aspartate Amino Transf (AST/SGOT) 26, Alanine Aminotransferase (ALT/SGPT) 27, Alkaline Phosphatase 175H, Total Protein 5.8L, Albumin 1.2L, Globulin 4.6, Albumin/Globulin Ratio 0.3L Height (Feet): 5 Height (Inches): 4.00 Weight (Pounds): 130 General Appearance: no apparent distress EENT: other - Remains intubated on ventilator Cardiovascular: tachycardia Respiratory/Chest: decreased breath sounds Abdomen: distended Tino Connors MD Jul 21, 2020 09:17
--- NOTE | 2020-07-21 10:34 | NUR ---
NURSE NOTES: called MD. Carreno regarding versed drip and d/c today. recommend continuation orders. awaiting call back.
--- NOTE | 2020-07-21 10:40 | Infectious Diseases Prog Note ---
Assessment/Plan 79yo M with: SEptic Shock- pressors requirements decreasing Fever,r ecurrent; SP Leukocytosis ;recurrent ; increased; -SP Acute hypoxic resp failure, on NRB mask> 4l NC; back on NRB, desaturation 07/09 > intubated 07/17 Pneumonia- >HAP hx of COVID19 PNA 05/20/20 --07/19 CXR: Persistent bilateral patchy pulmonary opacities, most prominent in the left lower lung. --07/18 ucx neg sp cx MRSA (colonizer at this point) Bcx p --07/13 Bcx Neg 07/10 Sp cx MRSA (Vancomycin APOLONIA 1), ESBL E.coli 07/03 BCx NTD UA - WBC, UCx Neg 07/03 COVID rapid neg; 07/06 rapid COVID PCR + (from prior infection)- not new infection Flu A/B neg CXR: L pna Resp cx MRSA Denis on CKD, improving SNF resident ([facility]) Non-verbal VRE and MRSA colonized Plan: Meropenem #05/21-14 for ESBL PNA Dc empiric Micafungin # -07/17 SP IV Vancomycin #15 -07/13 SP Zosyn # -07/06 SP Cefepime # -07/04 SP Flagyl # Monitor CBC/CMP Monitor resp status Monitor temp curve and hemodynamics repeat cultures D/w RN and pharmacy staff Thank you for this consult. [facility] will continue to follow. Subjective Allergies: Coded Allergies: No Known Allergies (Unverified , 04/30/12) afebrile >72hrs FIo2 down to 35% levo at 3 no leukocytosis Bcx NTD Objective Last 24 Hour Vital Signs Date Time Temp Pulse Resp B/P (MAP) Pulse Ox O2 Delivery O2 Flow Rate FiO2 07/21/20 08:30 84 17 103/58 (73) 98 07/21/20 08:15 82 15 123/64 (83) 99 07/21/20 08:00 98.9 83 14 113/66 (82) 100 07/21/20 07:20 84 14 35 07/21/20 07:00 80 14 103/54 (70) 98 07/21/20 07:00 14 Mechanical Ventilator 35 07/21/20 06:30 80 15 107/61 (76) 98 07/21/20 06:30 81 15 07/21/20 06:00 79 15 121/64 (83) 100 07/21/20 06:00 15 Mechanical Ventilator 35 07/21/20 05:30 79 14 107/62 (77) 99 07/21/20 05:00 79 14 109/61 (77) 100 07/21/20 05:00 14 Mechanical Ventilator 35 07/21/20 04:30 78 14 104/64 (77) 100 07/21/20 04:00 35 07/21/20 04:00 Mechanical Ventilator 07/21/20 04:00 98.4 79 16 119/63 (81) 100 07/21/20 04:00 16 Mechanical Ventilator 35 07/21/20 04:00 78 07/21/20 03:30 80 15 117/67 (84) 98 07/21/20 03:09 80 15 35 07/21/20 03:00 82 16 117/68 (84) 98 07/21/20 03:00 16 Mechanical Ventilator 35 07/21/20 02:30 86 19 117/72 (87) 97 07/21/20 02:00 18 Mechanical Ventilator 35 07/21/20 02:00 81 18 121/66 (84) 100 07/21/20 01:30 81 19 103/63 (76) 100 07/21/20 01:00 17 Mechanical Ventilator 35 07/21/20 01:00 86 19 129/99 (109) 100 07/21/20 00:30 82 14 118/62 (80) 99 07/21/20 00:00 99.0 85 16 109/63 (78) 97 07/21/20 00:00 88 07/21/20 00:00 16 Mechanical Ventilator 35 07/21/20 00:00 Mechanical Ventilator 07/21/20 00:00 35 07/20/20 23:30 87 15 100/56 (71) 97 07/20/20 23:00 16 Mechanical Ventilator 35 07/20/20 23:00 78 14 111/58 (75) 97 07/20/20 22:56 78 14 35 07/20/20 22:30 79 14 105/60 (75) 96 07/20/20 22:00 16 Mechanical Ventilator 35 07/20/20 22:00 81 16 118/66 (83) 100 07/20/20 21:30 86 19 127/67 (87) 100 07/20/20 21:25 86 21 35 07/20/20 21:00 15 Mechanical Ventilator 35 07/20/20 21:00 19 Mechanical Ventilator 35 07/20/20 21:00 82 19 124/62 (82) 99 07/20/20 20:30 83 16 96/57 (70) 97 07/20/20 20:00 Mechanical Ventilator 07/20/20 20:00 98.9 83 15 100/55 (70) 96 07/20/20 20:00 15 Mechanical Ventilator 35 07/20/20 20:00 35 07/20/20 20:00 82 07/20/20 19:30 82 16 93/57 (69) 97 07/20/20 19:23 82 16 35 07/20/20 19:00 15 Mechanical Ventilator 35 07/20/20 19:00 78 15 107/58 (74) 96 07/20/20 18:30 85 20 85/54 (64) 94 07/20/20 18:00 78 15 107/58 (74) 96 07/20/20 18:00 15 Mechanical Ventilator 35 07/20/20 17:30 59 14 149/76 (100) 100 07/20/20 17:09 14 Mechanical Ventilator 35 07/20/20 17:07 93/55 07/20/20 17:00 15 Mechanical Ventilator 35 07/20/20 17:00 75 15 92/56 (68) 99 07/20/20 16:30 85 16 105/60 (75) 99 07/20/20 16:00 35 07/20/20 16:00 97.6 75 14 112/66 (81) 100 07/20/20 16:00 14 Mechanical Ventilator 35 07/20/20 16:00 Mechanical Ventilator 07/20/20 16:00 71 07/20/20 15:30 75 15 120/62 (81) 100 07/20/20 15:00 79 16 128/65 (86) 98 07/20/20 15:00 15 Mechanical Ventilator 35 07/20/20 14:40 82 16 35 07/20/20 14:30 80 16 134/72 (92) 99 07/20/20 14:00 14 Mechanical Ventilator 35 07/20/20 14:00 81 16 134/72 (92) 100 07/20/20 13:00 15 Mechanical Ventilator 35 07/20/20 13:00 79 15 117/64 (81) 100 07/20/20 12:30 76 14 116/62 (80) 100 07/20/20 12:00 76 07/20/20 12:00 99.1 74 14 93/52 (66) 98 07/20/20 12:00 Mechanical Ventilator 07/20/20 12:00 14 Mechanical Ventilator 35 07/20/20 12:00 35 07/20/20 11:30 75 14 90/54 (66) 98 07/20/20 11:00 15 Mechanical Ventilator 40 07/20/20 11:00 15 Mechanical Ventilator 35 07/20/20 11:00 77 15 102/59 (73) 99 07/20/20 10:40 73 14 35 Height (Feet): 5 Height (Inches): 4.00 Weight (Pounds): 130 Gen: sedated, intubated CV: RRR Pulm: Rhonchi anteriorly Abd: Soft, NTND Ext: No c/c/e Microbiology Date/Time Source Procedure Growth Status 07/18/20 22:56 Sputum Expectorated Gram Stain - Final Complete 07/18/20 22:56 Sputum Culture - Final Staphylococcus Aureus - Mrsa Usual Respiratory Yana Complete Laboratory Tests Test 07/20/20 12:33 07/20/20 17:37 07/20/20 23:52 07/21/20 05:39 POC Whole Blood Glucose 134 MG/DL (74-106) H 129 MG/DL (74-106) H Pending 136 MG/DL (74-106) H Test 07/21/20 05:45 07/21/20 09:08 White Blood Count 9.4 K/UL (4.8-10.8) Red Blood Count 2.91 M/UL (4.70-6.10) L Hemoglobin 8.7 G/DL (14.2-18.0) L Hematocrit 28.4 % (42.0-52.0) L Mean Corpuscular Volume 98 FL (80-99) Mean Corpuscular Hemoglobin 30.0 PG (27.0-31.0) Mean Corpuscular Hemoglobin Concent 30.7 G/DL (32.0-36.0) L Red Cell Distribution Width 15.1 % (11.6-14.8) H Platelet Count 309 K/UL (150-450) Mean Platelet Volume 8.7 FL (6.5-10.1) Neutrophils (%) (Auto) 73.0 % (45.0-75.0) Lymphocytes (%) (Auto) 19.3 % (20.0-45.0) L Monocytes (%) (Auto) 5.6 % (1.0-10.0) Eosinophils (%) (Auto) 1.5 % (0.0-3.0) Basophils (%) (Auto) 0.7 % (0.0-2.0) Sodium Level 142 MMOL/L (136-145) Potassium Level 4.1 MMOL/L (3.5-5.1) Chloride Level 111 MMOL/L (98-107) H Carbon Dioxide Level 25 MMOL/L (21-32) Anion Gap 6 mmol/L (5-15) Blood Urea Nitrogen 13 mg/dL (7-18) Creatinine 0.9 MG/DL (0.55-1.30) Estimat Glomerular Filtration Rate > 60 mL/min (>60) Glucose Level 146 MG/DL (74-106) H Calcium Level 7.5 MG/DL (8.5-10.1) L Phosphorus Level 2.7 MG/DL (2.5-4.9) Magnesium Level 2.3 MG/DL (1.8-2.4) Total Bilirubin 0.2 MG/DL (0.2-1.0) Aspartate Amino Transf (AST/SGOT) 26 U/L (15-37) Alanine Aminotransferase (ALT/SGPT) 27 U/L (12-78) Alkaline Phosphatase 175 U/L (46-116) H Total Protein 5.8 G/DL (6.4-8.2) L Albumin 1.2 G/DL (3.4-5.0) L Globulin 4.6 g/dL Albumin/Globulin Ratio 0.3 (1.0-2.7) L Arterial Blood pH 7.487 (7.350-7.450) Arterial Blood Partial Pressure CO2 32.9 mmHg (35.0-45.0) L Arterial Blood Partial Pressure O2 77.1 mmHg (75.0-100.0) Arterial Blood HCO3 24.3 mmol/L (22.0-26.0) Arterial Blood Oxygen Saturation 95.7 % (95-100) Arterial Blood Base Excess 1.2 (-2-2) Richard Test Positive Current Medications Medications (Trade) Dose Ordered Sig/Ankush Route PRN Reason Start Time Stop Time Status Last Admin Dose Admin Acetaminophen (Tylenol) 650 mg Q4H PRN ORAL Temp >100.5 07/03/20 20:30 08/02/20 20:29 07/16/20 22:39 Chlorhexidine Gluconate (Darcy-Hex 2%) 1 applic DAILY@2000 TOPIC 07/17/20 20:00 10/15/20 19:59 07/20/20 19:54 Dextrose (Dextrose 50%) 50 ml Q30M PRN IV Hypoglycemia 07/03/20 22:45 10/01/20 22:44 Heparin Sodium (Porcine) (Heparin 5000 units/ml) 5,000 units EVERY 12 HOURS SUBQ 07/03/20 21:00 08/17/20 20:59 07/21/20 08:59 Insulin Aspart (NovoLOG) EVERY 6 HOURS SUBQ 07/13/20 06:00 10/02/20 06:29 07/21/20 00:07 Lorazepam (Ativan 2mg/ml 1ml) 2 mg Q4H PRN IV For Anxiety 07/17/20 12:45 07/24/20 12:44 Meropenem 1 gm/ Sodium Chloride 55 ml @ 110 mls/hr Q12HR@0400,1600 IVPB 07/13/20 16:00 07/22/20 23:59 07/21/20 04:01 Micafungin Sodium 100 mg/Sodium Chloride 110 ml @ 110 mls/hr Q24H IVPB 07/18/20 16:00 07/25/20 15:59 07/20/20 15:22 Midazolam HCl 50 mg/Sodium Chloride 100 ml @ 0 mls/hr Q24H PRN IV Restlessness 07/19/20 14:00 07/21/20 13:46 07/20/20 17:09 Midodrine (Pro-Amatine) 5 mg TID ORAL 07/19/20 18:00 10/17/20 17:59 07/21/20 08:56 Morphine Sulfate (Morphine Sulfate) 4 mg Q4H PRN IVP For Pain 07/17/20 12:45 07/24/20 12:44 Nitroglycerin (Ntg) 0.4 mg Q5M PRN SL Prn Chest Pain 07/03/20 20:30 08/02/20 20:29 Norepinephrine Bitartrate 250 ml @ 0 mls/hr Q24H IV 07/20/20 15:45 07/23/20 15:44 07/20/20 17:07 Ondansetron HCl (Zofran) 4 mg Q6H PRN IVP Nausea & Vomiting 07/03/20 20:30 08/02/20 20:29 Pantoprazole (Protonix) 40 mg DAILY IV 07/18/20 09:00 08/17/20 08:59 07/21/20 08:56 Polyethylene Glycol (Miralax) 17 gm DAILYPRN PRN ORAL Constipation 07/03/20 20:30 08/02/20 20:29 Promethazine HCl/ Codeine (Phenergan with Codeine) 5 ml Q4H PRN ORAL For Cough 07/03/20 20:30 08/02/20 20:29 Sodium Chloride 1,000 ml @ 50 mls/hr Q20H IV 07/17/20 16:00 08/16/20 15:59 07/20/20 21:23 Tamsulosin HCl (Flomax) 0.4 mg BID ORAL 07/11/20 19:45 08/03/20 08:59 07/21/20 08:56 Ashley Cho M.D. Jul 21, 2020 10:40
--- NOTE | 2020-07-21 10:58 | NUR ---
NURSE NOTES: MD. Matt here to see pt.was informed of pt status. pt decreased on Levophed drip. on versed drip. hr stable. no cardiac concerns at this time.
--- NOTE | 2020-07-21 11:13 | Pulmonolgy Critical Care Note ---
Critical Care - Asmt/Plan Problems: (1) Acute respiratory failure (2) Multifocal pneumonia (3) 2019 novel coronavirus disease (COVID-19) (4) Acute encephalopathy (5) Severe sepsis (6) Alzheimer's dementia (7) HTN (hypertension) (8) History of CVA (cerebrovascular accident) (9) BPH (benign prostatic hyperplasia) Respiratory: monitor respiratory rate, adjust FIO2 Cardiac: continue pressors Renal: F/U I&O, keep IV fluid Infectious Disease: check cultures Gastrointestinal: continue feedings/current rate Endocrine: monitor blood sugar, continue sliding scale insulin Hematologic: transfuse if hgb<8.5 Neurologic: keep patient comfortable Affect: PRN ativan Prophylaxis: Protonix Time Spent (Minutes): 40 Notes Reviewed: 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, 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 Discussed with: nurses, consultants, 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 - Objective Last 24 Hour Vital Signs Date Time Temp Pulse Resp B/P (MAP) Pulse Ox O2 Delivery O2 Flow Rate FiO2 07/21/20 10:30 83 16 129/68 (88) 100 07/21/20 10:15 82 16 125/62 (83) 100 07/21/20 10:00 83 15 133/69 (90) 100 07/21/20 09:45 80 15 119/60 (79) 99 07/21/20 09:30 85 16 120/63 (82) 98 07/21/20 09:15 85 16 107/58 (74) 98 07/21/20 09:00 86 15 100/57 (71) 98 07/21/20 08:30 84 17 103/58 (73) 98 07/21/20 08:15 82 15 123/64 (83) 99 07/21/20 08:00 98.9 83 14 113/66 (82) 100 07/21/20 07:20 84 14 35 07/21/20 07:00 80 14 103/54 (70) 98 07/21/20 07:00 14 Mechanical Ventilator 35 07/21/20 06:30 80 15 107/61 (76) 98 07/21/20 06:30 81 15 07/21/20 06:00 79 15 121/64 (83) 100 07/21/20 06:00 15 Mechanical Ventilator 35 07/21/20 05:30 79 14 107/62 (77) 99 07/21/20 05:00 79 14 109/61 (77) 100 07/21/20 05:00 14 Mechanical Ventilator 35 07/21/20 04:30 78 14 104/64 (77) 100 07/21/20 04:00 35 07/21/20 04:00 Mechanical Ventilator 07/21/20 04:00 98.4 79 16 119/63 (81) 100 07/21/20 04:00 16 Mechanical Ventilator 35 07/21/20 04:00 78 07/21/20 03:30 80 15 117/67 (84) 98 07/21/20 03:09 80 15 35 07/21/20 03:00 82 16 117/68 (84) 98 07/21/20 03:00 16 Mechanical Ventilator 35 07/21/20 02:30 86 19 117/72 (87) 97 07/21/20 02:00 18 Mechanical Ventilator 35 07/21/20 02:00 81 18 121/66 (84) 100 07/21/20 01:30 81 19 103/63 (76) 100 07/21/20 01:00 17 Mechanical Ventilator 35 07/21/20 01:00 86 19 129/99 (109) 100 07/21/20 00:30 82 14 118/62 (80) 99 07/21/20 00:00 99.0 85 16 109/63 (78) 97 07/21/20 00:00 88 07/21/20 00:00 16 Mechanical Ventilator 35 07/21/20 00:00 Mechanical Ventilator 07/21/20 00:00 35 07/20/20 23:30 87 15 100/56 (71) 97 07/20/20 23:00 16 Mechanical Ventilator 35 07/20/20 23:00 78 14 111/58 (75) 97 07/20/20 22:56 78 14 35 07/20/20 22:30 79 14 105/60 (75) 96 07/20/20 22:00 16 Mechanical Ventilator 35 07/20/20 22:00 81 16 118/66 (83) 100 07/20/20 21:30 86 19 127/67 (87) 100 07/20/20 21:25 86 21 35 07/20/20 21:00 15 Mechanical Ventilator 35 07/20/20 21:00 19 Mechanical Ventilator 35 07/20/20 21:00 82 19 124/62 (82) 99 07/20/20 20:30 83 16 96/57 (70) 97 07/20/20 20:00 Mechanical Ventilator 07/20/20 20:00 98.9 83 15 100/55 (70) 96 07/20/20 20:00 15 Mechanical Ventilator 35 07/20/20 20:00 35 07/20/20 20:00 82 07/20/20 19:30 82 16 93/57 (69) 97 07/20/20 19:23 82 16 35 07/20/20 19:00 15 Mechanical Ventilator 35 07/20/20 19:00 78 15 107/58 (74) 96 07/20/20 18:30 85 20 85/54 (64) 94 07/20/20 18:00 78 15 107/58 (74) 96 07/20/20 18:00 15 Mechanical Ventilator 35 07/20/20 17:30 59 14 149/76 (100) 100 07/20/20 17:09 14 Mechanical Ventilator 35 07/20/20 17:07 93/55 07/20/20 17:00 15 Mechanical Ventilator 35 07/20/20 17:00 75 15 92/56 (68) 99 07/20/20 16:30 85 16 105/60 (75) 99 07/20/20 16:00 35 07/20/20 16:00 97.6 75 14 112/66 (81) 100 07/20/20 16:00 14 Mechanical Ventilator 35 07/20/20 16:00 Mechanical Ventilator 07/20/20 16:00 71 07/20/20 15:30 75 15 120/62 (81) 100 07/20/20 15:00 79 16 128/65 (86) 98 07/20/20 15:00 15 Mechanical Ventilator 35 07/20/20 14:40 82 16 35 07/20/20 14:30 80 16 134/72 (92) 99 07/20/20 14:00 14 Mechanical Ventilator 35 07/20/20 14:00 81 16 134/72 (92) 100 07/20/20 13:00 15 Mechanical Ventilator 35 07/20/20 13:00 79 15 117/64 (81) 100 07/20/20 12:30 76 14 116/62 (80) 100 07/20/20 12:00 76 07/20/20 12:00 99.1 74 14 93/52 (66) 98 07/20/20 12:00 Mechanical Ventilator 11/9/20 12:00 14 Mechanical Ventilator 35 07/20/20 12:00 35 07/20/20 11:30 75 14 90/54 (66) 98 Status: sedated Condition: critical HEENT: atraumatic Neck: full ROM Lungs: rales, rhonchi Heart: HR/BP stable Abdomen: soft, non-tender, active bowel sounds Micro: Microbiology Date/Time Source Procedure Growth Status 07/18/20 22:56 Sputum Expectorated Gram Stain - Final Complete 07/18/20 22:56 Sputum Culture - Final Staphylococcus Aureus - Mrsa Usual Respiratory Yana Complete Accucheck: 136 Critical Care - Subjective ROS Limited/Unobtainable: Yes Condition: critical EKG Rhythm: Sinus Rhythm FI02: 35 Vent Support Breath Rate: 14 Vent Support Mode: AC Vent Tidal Volume: 600 Sputum Amount: Moderate PEEP: 0.0 PIP: 27 Tube Feeding Amount: 60 I&O: Intake and Output 07/20/20 07/21/20 19:00 07:00 Intake Total 1938.84247 ml 1580.30 ml Output Total 1100 ml 1450 ml Balance 838.18361 ml 130.30 ml Free Water 210 ml IV Total 1008.57374 ml 860.30 ml Tube Feeding 720 ml 720 ml Output Urine Total 1100 ml 1450 ml ET-Tube: 7.5 ET Position: 25 Labs: Laboratory Tests Test 07/20/20 12:33 07/20/20 17:37 07/20/20 23:52 07/21/20 05:39 POC Whole Blood Glucose 134 MG/DL (74-106) H 129 MG/DL (74-106) H Pending 136 MG/DL (74-106) H Test 07/21/20 05:45 07/21/20 09:08 White Blood Count 9.4 K/UL (4.8-10.8) Red Blood Count 2.91 M/UL (4.70-6.10) L Hemoglobin 8.7 G/DL (14.2-18.0) L Hematocrit 28.4 % (42.0-52.0) L Mean Corpuscular Volume 98 FL (80-99) Mean Corpuscular Hemoglobin 30.0 PG (27.0-31.0) Mean Corpuscular Hemoglobin Concent 30.7 G/DL (32.0-36.0) L Red Cell Distribution Width 15.1 % (11.6-14.8) H Platelet Count 309 K/UL (150-450) Mean Platelet Volume 8.7 FL (6.5-10.1) Neutrophils (%) (Auto) 73.0 % (45.0-75.0) Lymphocytes (%) (Auto) 19.3 % (20.0-45.0) L Monocytes (%) (Auto) 5.6 % (1.0-10.0) Eosinophils (%) (Auto) 1.5 % (0.0-3.0) Basophils (%) (Auto) 0.7 % (0.0-2.0) Sodium Level 142 MMOL/L (136-145) Potassium Level 4.1 MMOL/L (3.5-5.1) Chloride Level 111 MMOL/L (98-107) H Carbon Dioxide Level 25 MMOL/L (21-32) Anion Gap 6 mmol/L (5-15) Blood Urea Nitrogen 13 mg/dL (7-18) Creatinine 0.9 MG/DL (0.55-1.30) Estimat Glomerular Filtration Rate > 60 mL/min (>60) Glucose Level 146 MG/DL (74-106) H Calcium Level 7.5 MG/DL (8.5-10.1) L Phosphorus Level 2.7 MG/DL (2.5-4.9) Magnesium Level 2.3 MG/DL (1.8-2.4) Total Bilirubin 0.2 MG/DL (0.2-1.0) Aspartate Amino Transf (AST/SGOT) 26 U/L (15-37) Alanine Aminotransferase (ALT/SGPT) 27 U/L (12-78) Alkaline Phosphatase 175 U/L (46-116) H Total Protein 5.8 G/DL (6.4-8.2) L Albumin 1.2 G/DL (3.4-5.0) L Globulin 4.6 g/dL Albumin/Globulin Ratio 0.3 (1.0-2.7) L Arterial Blood pH 7.487 (7.350-7.450) Arterial Blood Partial Pressure CO2 32.9 mmHg (35.0-45.0) L Arterial Blood Partial Pressure O2 77.1 mmHg (75.0-100.0) Arterial Blood HCO3 24.3 mmol/L (22.0-26.0) Arterial Blood Oxygen Saturation 95.7 % (95-100) Arterial Blood Base Excess 1.2 (-2-2) Richard Test Positive Kya Carreno MD Jul 21, 2020 11:13
--- NOTE | 2020-07-21 11:24 | NUR ---
RADIOLOGY DEPT., CHEST X-RAY DONE.-P.DYE
--- NOTE | 2020-07-21 12:01 | Cardiac Electrophysiology PN ---
Assessment/Plan Assessment/Plan 1. Accelerated junctional rhythm. Not bradycardic. Ruled out for TX Echo showed ejection fraction of 55%. 2. Long run of 31 beats of Nonsustained VT on 07/14/2020. Will need cardiac cath after stabilization. 3. Respiratory failure, on antibiotic and intubated on the vent 4. Septic shock. on LEvophed. 5. Acute renal failure. 6. Electrolyte imbalance. 7. History of CHF, but echocardiogram showed normal left ventricular systolic function. 8. History of previous COVID infection in May 2020 and active Covid now in isolation 9. Dementia. SHAYY RN Subjective Subjective In SR in NAD in Covid isolation. In ICU on the Vent with 35% Fio2 and 3 mcg of Levo. Had 31 beats of VT on 07/14/20 at 16:46 and 5 beats 07/19/20 No VT overnight.S/P PICC line Objective Last 24 Hour Vital Signs Date Time Temp Pulse Resp B/P (MAP) Pulse Ox O2 Delivery O2 Flow Rate FiO2 07/21/20 11:39 88 07/21/20 11:38 84 07/21/20 11:30 84 16 115/65 (82) 100 07/21/20 11:15 86 19 138/79 (98) 99 07/21/20 11:14 83 19 35 07/21/20 11:00 81 16 131/72 (91) 100 07/21/20 10:30 83 16 129/68 (88) 100 07/21/20 10:15 82 16 125/62 (83) 100 07/21/20 10:00 83 15 133/69 (90) 100 07/21/20 09:45 80 15 119/60 (79) 99 07/21/20 09:30 85 16 120/63 (82) 98 07/21/20 09:15 85 16 107/58 (74) 98 07/21/20 09:00 86 15 100/57 (71) 98 07/21/20 08:30 84 17 103/58 (73) 98 07/21/20 08:15 82 15 123/64 (83) 99 07/21/20 08:00 98.9 83 14 113/66 (82) 100 07/21/20 08:00 Mechanical Ventilator 07/21/20 08:00 35 07/21/20 08:00 88 11/10/20 07:20 84 14 35 07/21/20 07:00 80 14 103/54 (70) 98 07/21/20 07:00 14 Mechanical Ventilator 35 07/21/20 06:30 80 15 107/61 (76) 98 07/21/20 06:30 81 15 07/21/20 06:00 79 15 121/64 (83) 100 07/21/20 06:00 15 Mechanical Ventilator 35 07/21/20 05:30 79 14 107/62 (77) 99 07/21/20 05:00 79 14 109/61 (77) 100 07/21/20 05:00 14 Mechanical Ventilator 35 07/21/20 04:30 78 14 104/64 (77) 100 07/21/20 04:00 35 07/21/20 04:00 Mechanical Ventilator 07/21/20 04:00 98.4 79 16 119/63 (81) 100 07/21/20 04:00 16 Mechanical Ventilator 35 07/21/20 04:00 78 07/21/20 03:30 80 15 117/67 (84) 98 07/21/20 03:09 80 15 35 07/21/20 03:00 82 16 117/68 (84) 98 07/21/20 03:00 16 Mechanical Ventilator 35 07/21/20 02:30 86 19 117/72 (87) 97 07/21/20 02:00 18 Mechanical Ventilator 35 07/21/20 02:00 81 18 121/66 (84) 100 07/21/20 01:30 81 19 103/63 (76) 100 07/21/20 01:00 17 Mechanical Ventilator 35 07/21/20 01:00 86 19 129/99 (109) 100 07/21/20 00:30 82 14 118/62 (80) 99 07/21/20 00:00 99.0 85 16 109/63 (78) 97 07/21/20 00:00 88 07/21/20 00:00 16 Mechanical Ventilator 35 07/21/20 00:00 Mechanical Ventilator 07/21/20 00:00 35 07/20/20 23:30 87 15 100/56 (71) 97 07/20/20 23:00 16 Mechanical Ventilator 35 07/20/20 23:00 78 14 111/58 (75) 97 07/20/20 22:56 78 14 35 07/20/20 22:30 79 14 105/60 (75) 96 07/20/20 22:00 16 Mechanical Ventilator 35 07/20/20 22:00 81 16 118/66 (83) 100 07/20/20 21:30 86 19 127/67 (87) 100 07/20/20 21:25 86 21 35 07/20/20 21:00 15 Mechanical Ventilator 35 07/20/20 21:00 19 Mechanical Ventilator 35 07/20/20 21:00 82 19 124/62 (82) 99 07/20/20 20:30 83 16 96/57 (70) 97 07/20/20 20:00 Mechanical Ventilator 07/20/20 20:00 98.9 83 15 100/55 (70) 96 07/20/20 20:00 15 Mechanical Ventilator 35 07/20/20 20:00 35 07/20/20 20:00 82 07/20/20 19:30 82 16 93/57 (69) 97 07/20/20 19:23 82 16 35 07/20/20 19:00 15 Mechanical Ventilator 35 07/20/20 19:00 78 15 107/58 (74) 96 07/20/20 18:30 85 20 85/54 (64) 94 07/20/20 18:00 78 15 107/58 (74) 96 07/20/20 18:00 15 Mechanical Ventilator 35 07/20/20 17:30 59 14 149/76 (100) 100 07/20/20 17:09 14 Mechanical Ventilator 35 07/20/20 17:07 93/55 07/20/20 17:00 15 Mechanical Ventilator 35 07/20/20 17:00 75 15 92/56 (68) 99 07/20/20 16:30 85 16 105/60 (75) 99 07/20/20 16:00 35 07/20/20 16:00 97.6 75 14 112/66 (81) 100 07/20/20 16:00 14 Mechanical Ventilator 35 07/20/20 16:00 Mechanical Ventilator 07/20/20 16:00 71 07/20/20 15:30 75 15 120/62 (81) 100 07/20/20 15:00 79 16 128/65 (86) 98 07/20/20 15:00 15 Mechanical Ventilator 35 07/20/20 14:40 82 16 35 11/9/20 14:30 80 16 134/72 (92) 99 07/20/20 14:00 14 Mechanical Ventilator 35 07/20/20 14:00 81 16 134/72 (92) 100 07/20/20 13:00 15 Mechanical Ventilator 35 07/20/20 13:00 79 15 117/64 (81) 100 07/20/20 12:30 76 14 116/62 (80) 100 Intake and Output 07/20/20 07/21/20 19:00 07:00 Intake Total 1938.26277 ml 1580.30 ml Output Total 1100 ml 1450 ml Balance 838.44225 ml 130.30 ml Free Water 210 ml IV Total 1008.61354 ml 860.30 ml Tube Feeding 720 ml 720 ml Output Urine Total 1100 ml 1450 ml Laboratory Tests Test 07/20/20 12:33 07/20/20 17:37 07/20/20 23:52 07/21/20 05:39 POC Whole Blood Glucose 134 MG/DL (74-106) H 129 MG/DL (74-106) H Pending 136 MG/DL (74-106) H Test 07/21/20 05:45 07/21/20 09:08 White Blood Count 9.4 K/UL (4.8-10.8) Red Blood Count 2.91 M/UL (4.70-6.10) L Hemoglobin 8.7 G/DL (14.2-18.0) L Hematocrit 28.4 % (42.0-52.0) L Mean Corpuscular Volume 98 FL (80-99) Mean Corpuscular Hemoglobin 30.0 PG (27.0-31.0) Mean Corpuscular Hemoglobin Concent 30.7 G/DL (32.0-36.0) L Red Cell Distribution Width 15.1 % (11.6-14.8) H Platelet Count 309 K/UL (150-450) Mean Platelet Volume 8.7 FL (6.5-10.1) Neutrophils (%) (Auto) 73.0 % (45.0-75.0) Lymphocytes (%) (Auto) 19.3 % (20.0-45.0) L Monocytes (%) (Auto) 5.6 % (1.0-10.0) Eosinophils (%) (Auto) 1.5 % (0.0-3.0) Basophils (%) (Auto) 0.7 % (0.0-2.0) Sodium Level 142 MMOL/L (136-145) Potassium Level 4.1 MMOL/L (3.5-5.1) Chloride Level 111 MMOL/L (98-107) H Carbon Dioxide Level 25 MMOL/L (21-32) Anion Gap 6 mmol/L (5-15) Blood Urea Nitrogen 13 mg/dL (7-18) Creatinine 0.9 MG/DL (0.55-1.30) Estimat Glomerular Filtration Rate > 60 mL/min (>60) Glucose Level 146 MG/DL (74-106) H Calcium Level 7.5 MG/DL (8.5-10.1) L Phosphorus Level 2.7 MG/DL (2.5-4.9) Magnesium Level 2.3 MG/DL (1.8-2.4) Total Bilirubin 0.2 MG/DL (0.2-1.0) Aspartate Amino Transf (AST/SGOT) 26 U/L (15-37) Alanine Aminotransferase (ALT/SGPT) 27 U/L (12-78) Alkaline Phosphatase 175 U/L (46-116) H Total Protein 5.8 G/DL (6.4-8.2) L Albumin 1.2 G/DL (3.4-5.0) L Globulin 4.6 g/dL Albumin/Globulin Ratio 0.3 (1.0-2.7) L Arterial Blood pH 7.487 (7.350-7.450) Arterial Blood Partial Pressure CO2 32.9 mmHg (35.0-45.0) L Arterial Blood Partial Pressure O2 77.1 mmHg (75.0-100.0) Arterial Blood HCO3 24.3 mmol/L (22.0-26.0) Arterial Blood Oxygen Saturation 95.7 % (95-100) Arterial Blood Base Excess 1.2 (-2-2) Richard Test Positive Microbiology Date/Time Source Procedure Growth Status 07/18/20 22:56 Sputum Expectorated Gram Stain - Final Complete 07/18/20 22:56 Sputum Culture - Final Staphylococcus Aureus - Mrsa Usual Respiratory Yana Complete Objective HEAD AND NECK: No JVD. Orally intubated LUNGS: Coarse rhonchi. CARDIOVASCULAR: Irregular S1 and S2 with no gallop. ABDOMEN: Soft. EXTREMITIES: No pitting edema. Klever Matt MD Jul 21, 2020 12:01
[2020-07-21] MEDS: Norepinephrine 4mg/NS Premix 250 ML IV SCH (12:09)
--- NOTE | 2020-07-21 13:00 | NUR ---
NURSE NOTES: LATE ENTRY: PT IN BED, SEDATED. RASS-2. OPENS EYES TO SHAKING. PUPILS 3MM SLUGGISH. RESPONSIBLE TO DEEP PAIN. SR ON THE MONITOR. BP STABLE ON PRESSORS. COOLING BLANKET ON, RECTAL TEMP. INTUBATED ETT 7.5, 25CM AT THE LIP. VENT SETTINGS: AC 14, VT 600, PEEP 0, FI02 35%. LOTS OF THICK SECRETIONS. RHONCHI BILATERAL. RT NGT. TUBE FEEDING GLUCERNA 1.2, AT 60ML/HR. ABDOMEN SOFT. NO BM AT THIS TIME. TIERNEY IN PLACE, URINE. PICC JACQUIE PATENT. RT FEMORAL TLC. RUNNING LEVOPHED AT 3MCG/MIN, VERSED WILL D/C AT 1340. 1/2 NS AT 50ML/HR. ON P 200 MATTRESS. SOFT WRIST RESTRAINTS IN PLACE. AIRBORNE ISOLATION IN PLACE. WILL CONTINUE TO MONITOR PT.
[2020-07-21] MEDS ORDERED: Morphine Sulfate 2mg/ml Inj(IV/IM USE ONLY) IVP PRN (13:45)
[2020-07-21] MEDS ORDERED: 1/2 NS 1000ml IV ONE ×2 (13:57→14:11)
[2020-07-21] MEDS ORDERED: NS 275ml ONE ×3 (13:57→14:11)
--- NOTE | 2020-07-21 14:00 | Diagnostic Imaging Report ---
Indication: Dyspnea Technique: One view of the chest Comparison: 07/20/2020 Findings: Stable satisfactory tube and line positions. Bilateral infiltrates in a peribronchovascular distribution are unchanged. Left pleural effusion is unchanged. Right shoulder prosthesis again demonstrated Impression: Unchanged, over one day, findings as above.
[2020-07-21] MEDS ORDERED: Tubing IV Secondary IV ONE ×2 (14:11)
[2020-07-21] MEDS ORDERED: Sterile Water Irrig 1000ml IRRIG ONE (14:11)
--- NOTE | 2020-07-21 16:00 | NUR ---
NURSE NOTES: LATE ENTRY: PT HAD BM, SMALL, FIRM, FORMED AND BROWN. PT CLEANED AND REPOSITIONED. EXTREMITIES ELEVATED ON PILLOWS. COOLING BLANKET OFF, JUST MONITORING BODY TEMP . ORAL CARE AND SUCTION SECRETIONS, MODERATE, THICK. HOB>30, ASPIRATION PRECAUTION.
[2020-07-21] MEDS: LORazepam Inj 2mg/ml 1ml IV PRN (16:29)
--- NOTE | 2020-07-21 17:59 | Internal Med Progress Note ---
Subjective Date of Service: Jul 21, 2020 Physician Name Dano Groves Attending Physician Ahsan Hodges MD Current Medications Medications (Trade) Dose Ordered Sig/Ankush Route PRN Reason Start Time Stop Time Status Last Admin Dose Admin Acetaminophen (Tylenol) 650 mg Q4H PRN ORAL Temp >100.5 07/03/20 20:30 08/02/20 20:29 07/16/20 22:39 Chlorhexidine Gluconate (Darcy-Hex 2%) 1 applic DAILY@2000 TOPIC 07/17/20 20:00 10/15/20 19:59 07/20/20 19:54 Dextrose (Dextrose 50%) 50 ml Q30M PRN IV Hypoglycemia 07/03/20 22:45 10/01/20 22:44 Heparin Sodium (Porcine) (Heparin 5000 units/ml) 5,000 units EVERY 12 HOURS SUBQ 07/03/20 21:00 08/17/20 20:59 07/21/20 08:59 Insulin Aspart (NovoLOG) EVERY 6 HOURS SUBQ 07/13/20 06:00 10/02/20 06:29 07/21/20 00:07 Lorazepam (Ativan 2mg/ml 1ml) 2 mg Q4H PRN IV For Anxiety 07/21/20 13:45 07/28/20 13:44 07/21/20 16:29 Meropenem 1 gm/ Sodium Chloride 55 ml @ 110 mls/hr Q12HR@0400,1600 IVPB 07/13/20 16:00 07/22/20 23:59 07/21/20 16:28 Midodrine (Pro-Amatine) 5 mg TID ORAL 07/19/20 18:00 10/17/20 17:59 07/21/20 17:18 Morphine Sulfate (Morphine Sulfate) 2 mg Q6H PRN IVP moderate pain 07/21/20 13:45 07/28/20 13:44 Morphine Sulfate (Morphine Sulfate) 4 mg Q4H PRN IVP severe pain 07/17/20 12:45 07/24/20 12:44 Nitroglycerin (Ntg) 0.4 mg Q5M PRN SL Prn Chest Pain 07/03/20 20:30 08/02/20 20:29 Norepinephrine Bitartrate 250 ml @ 0 mls/hr Q24H IV 07/20/20 15:45 07/23/20 15:44 07/21/20 12:09 Ondansetron HCl (Zofran) 4 mg Q6H PRN IVP Nausea & Vomiting 07/03/20 20:30 08/02/20 20:29 Pantoprazole (Protonix) 40 mg DAILY IV 07/18/20 09:00 08/17/20 08:59 07/21/20 08:56 Polyethylene Glycol (Miralax) 17 gm DAILYPRN PRN ORAL Constipation 07/03/20 20:30 08/02/20 20:29 Promethazine HCl/ Codeine (Phenergan with Codeine) 5 ml Q4H PRN ORAL For Cough 07/03/20 20:30 08/02/20 20:29 Sodium Chloride 1,000 ml @ 50 mls/hr Q20H IV 07/17/20 16:00 08/16/20 15:59 07/20/20 21:23 Tamsulosin HCl (Flomax) 0.4 mg BID ORAL 07/11/20 19:45 08/03/20 08:59 07/21/20 17:18 Allergies: Coded Allergies: No Known Allergies (Unverified , 04/30/12) ROS Limited/Unobtainable: Yes Subjective 79 YO M admitted with shortness of breath. Now pneumonia; previously COVID positive. Cover for Int laina-Dr Hodges. ICU. Intubated and sedated Objective Last Vital Signs Date Time Temp Pulse Resp B/P (MAP) Pulse Ox O2 Delivery O2 Flow Rate FiO2 07/21/20 17:45 88 18 129/70 (89) 100 07/21/20 16:00 35 07/21/20 16:00 Mechanical Ventilator 07/21/20 16:00 96.9 07/17/20 12:00 15.0 Laboratory Tests Test 07/20/20 23:52 07/21/20 05:39 07/21/20 05:45 07/21/20 09:08 POC Whole Blood Glucose Pending 136 MG/DL (74-106) H White Blood Count 9.4 K/UL (4.8-10.8) Red Blood Count 2.91 M/UL (4.70-6.10) L Hemoglobin 8.7 G/DL (14.2-18.0) L Hematocrit 28.4 % (42.0-52.0) L Mean Corpuscular Volume 98 FL (80-99) Mean Corpuscular Hemoglobin 30.0 PG (27.0-31.0) Mean Corpuscular Hemoglobin Concent 30.7 G/DL (32.0-36.0) L Red Cell Distribution Width 15.1 % (11.6-14.8) H Platelet Count 309 K/UL (150-450) Mean Platelet Volume 8.7 FL (6.5-10.1) Neutrophils (%) (Auto) 73.0 % (45.0-75.0) Lymphocytes (%) (Auto) 19.3 % (20.0-45.0) L Monocytes (%) (Auto) 5.6 % (1.0-10.0) Eosinophils (%) (Auto) 1.5 % (0.0-3.0) Basophils (%) (Auto) 0.7 % (0.0-2.0) Sodium Level 142 MMOL/L (136-145) Potassium Level 4.1 MMOL/L (3.5-5.1) Chloride Level 111 MMOL/L (98-107) H Carbon Dioxide Level 25 MMOL/L (21-32) Anion Gap 6 mmol/L (5-15) Blood Urea Nitrogen 13 mg/dL (7-18) Creatinine 0.9 MG/DL (0.55-1.30) Estimat Glomerular Filtration Rate > 60 mL/min (>60) Glucose Level 146 MG/DL (74-106) H Calcium Level 7.5 MG/DL (8.5-10.1) L Phosphorus Level 2.7 MG/DL (2.5-4.9) Magnesium Level 2.3 MG/DL (1.8-2.4) Total Bilirubin 0.2 MG/DL (0.2-1.0) Aspartate Amino Transf (AST/SGOT) 26 U/L (15-37) Alanine Aminotransferase (ALT/SGPT) 27 U/L (12-78) Alkaline Phosphatase 175 U/L (46-116) H Total Protein 5.8 G/DL (6.4-8.2) L Albumin 1.2 G/DL (3.4-5.0) L Globulin 4.6 g/dL Albumin/Globulin Ratio 0.3 (1.0-2.7) L Arterial Blood pH 7.487 (7.350-7.450) Arterial Blood Partial Pressure CO2 32.9 mmHg (35.0-45.0) L Arterial Blood Partial Pressure O2 77.1 mmHg (75.0-100.0) Arterial Blood HCO3 24.3 mmol/L (22.0-26.0) Arterial Blood Oxygen Saturation 95.7 % (95-100) Arterial Blood Base Excess 1.2 (-2-2) Richard Test Positive Microbiology Date/Time Source Procedure Growth Status 07/18/20 22:56 Sputum Expectorated Gram Stain - Final Complete 07/18/20 22:56 Sputum Culture - Final Staphylococcus Aureus - Mrsa Usual Respiratory Yana Complete Intake and Output 07/20/20 07/21/20 19:00 07:00 Intake Total 1938.47771 ml 1580.30 ml Output Total 1100 ml 1450 ml Balance 838.22536 ml 130.30 ml Free Water 210 ml IV Total 1008.99133 ml 860.30 ml Tube Feeding 720 ml 720 ml Output Urine Total 1100 ml 1450 ml Objective PHYSICAL EXAMINATION: GENERAL: The patient awake with deep stimuli, open his eyes, however, cannot follow commands. The patient is on a Ventimask at this time, chronically ill-appearing. HEAD AND NECK: Pupils are equal and reactive to light. Anicteric. NECK: Supple. No JVD. LUNGS: Mech vent; wheezing, rhonchi, and decreased air in bases. HEART: S1, S2. Regular rhythm. Distant heart sounds. No murmur or gallop. ABDOMEN: Soft, nondistended, nontender. Positive bowel sounds. EXTREMITIES: No cyanosis, clubbing, or edema. NEUROLOGIC: Very limited secondary to the patient's status, cannot follow commands. Opens his eyes with deep stimuli and moving extremities spontaneously. Assessment/Plan Assessment/Plan ASSESSMENT: 1. Acute hypoxemic respiratory failure, most likely secondary to pneumonia and sepsis. 2. Sepsis secondary to urinary tract infection and pneumonia. 3. pneumonia=MRSA; ESBL E. coli 4. Acute kidney injury on chronic renal insufficiency. 5. Dehydration. 6. History of chronic congestive heart failure. 7. Diabetes type 2. 8. Dyslipidemia. 9. Hypertension. 10. Alzheimer's disease. 11. COVID 19 previous positive PLAN: 1. ICU 2. Dr. Carreno,=Pulmonary Critical Care; follow mech vent recs 3. Dr. Cho = Inf Dis. 4. IV= D5W due to the hypernatremia and dehydration. 5. antibiotics = micafungin and meropenem 6. Code status is full code. 7. DVT prophylaxis is heparin subcutaneous. Dano Groves MD Jul 21, 2020 17:59
--- NOTE | 2020-07-21 18:00 | NUR ---
NURSE NOTES: PT IN BED. NOT ACUTE DISTRESS NOTED. WILL CONTINUE TO MONITOR PT.
--- NOTE | 2020-07-21 19:20 | NUR ---
NURSE NOTES: Received pt appeared drowsy but arousable to tactile stimulation, orally intubated on ac mode, SR on the monitor, Bp been supported with Levophed drip at 3mcg/min, with maintainance IVF 1/2NS at 50ml/hr. Tolerating NGT fdg Glucerna 1.2 at 60ml/hr, with acceptable residuals HOB kept elevated. On aspiration precaution. Wiley to gravity with lg amt of yellowish urine. Pt with JACQUIE PICC line with current drsg dry and intact. Pt with Pressure sores to sacral and bilateral heel pls see pictures, On P 200 mattress. Pt is a COVID + and on airborne isolation , Strict isolation and precaution technique were observed, Will continue to monitor..
--- NOTE | 2020-07-21 19:29 | NUR ---
NURSE HAND-OFF REPORT: Latest Vital Signs: Temperature 96.9 , Pulse 86 , B/P 129 /70 , Respiratory Rate 14 , O2 SAT 100 , Mechanical Ventilator, O2 Flow Rate . Vital Sign Comment: EKG Rhythm: Sinus Rhythm Rhythm change?: N Notified?: Grecia Matt MD Response: Latest Gonzalez Fall Score: 70 Fall Risk: High Risk Safety Measures: Call light Within Reach, Bed Alarm Zone 1, Side Rails Side Rails x3, Bed position Low and Locked. Fall Precautions: Yellow Socks Yellow Gown Door Sign Patient Fall Education Report given to MITCHELL York
[2020-07-21] MEDS: Dyna-Hex 2% Top Sol 2oz TOPIC SCH (20:15)
--- NOTE | 2020-07-21 21:19 | NUR ---
NURSE NOTES: Bp 120/66, Discontinued levophed drip.
[2020-07-22] VITALS (30 sets, daily range): BP systolic 82–162; BP diastolic 38–93
--- NOTE | 2020-07-22 | NUR ---
NURSE NOTES: Temp 100.2F, turned on cooling blankett. cooling measures started.
--- NOTE | 2020-07-22 03:30 | NUR ---
NURSE NOTES: Am labs drawn.discontinued Rt femoral central line. Apply pressure for few minutes and pressure drsg was applied.
[2020-07-22] MEDS: Meropenem 1 GM in NS 55 ML IVPB SCH (04:21)
--- NOTE | 2020-07-22 05:00 | NUR ---
NURSE NOTES: Pt had extra lg soft brownish stools, cleaned up pt.
[2020-07-22 05:02] LABS: BASOPHILS % (AUTO) 0.5 % (0.0-2.0); EOSINOPHILS % (AUTO) 0.9 % (0.0-3.0); HEMATOCRIT 28.2 % (42.0-52.0); LYMPHOCYTES % (AUTO) 13.7 % (20.0-45.0); MEAN CORPUSCULAR VOLUME 96 FL (80-99); MONOCYTES % (AUTO) 5.7 % (1.0-10.0); NEUTROPHILS % (AUTO) 79.2 % (45.0-75.0); PLATELET COUNT 413 K/UL (150-450); RED BLOOD COUNT 2.93 M/UL (4.70-6.10); RED CELL DISTRIBUTION WIDTH 15.1 % (11.6-14.8); WHITE BLOOD COUNT 10.8 K/UL (4.8-10.8)
[2020-07-22] MEDS: NovoLOG Insulin Flexpen SUBQ SCH ×4 (06:00→18:00)
--- NOTE | 2020-07-22 06:00 | NUR ---
NURSE NOTES: accucheck 137, no coverage.
[2020-07-22 06:13] LABS: ALANINE AMINOTRANSFERASE 29 U/L (12-78); ALBUMIN 1.3 G/DL (3.4-5.0); ALBUMIN/GLOBULIN RATIO 0.3 (1.0-2.7); ALKALINE PHOSPHATASE 187 U/L (46-116); ANION GAP 6 mmol/L (5-15); ASPARTATE AMINO TRANSFERASE 36 U/L (15-37); BILIRUBIN,TOTAL 0.2 MG/DL (0.2-1.0); BLOOD UREA NITROGEN 19 mg/dL (7-18); CARBON DIOXIDE 28 MMOL/L (21-32); CHLORIDE 106 MMOL/L (98-107); CREATININE 0.9 MG/DL (0.55-1.30); POTASSIUM 4.2 MMOL/L (3.5-5.1); SODIUM 140 MMOL/L (136-145)
--- NOTE | 2020-07-22 07:17 | NUR ---
NURSE HAND-OFF REPORT: Latest Vital Signs: Temperature 98.3 , Pulse 91 , B/P 111 /65 , Respiratory Rate 16 , O2 SAT 99 , Mechanical Ventilator, O2 Flow Rate . Vital Sign Comment: EKG Rhythm: Sinus Rhythm Rhythm change?: N Notified?: Grecia Matt MD Response: Latest Gonzalez Fall Score: 70 Fall Risk: High Risk Safety Measures: Call light Within Reach, Bed Alarm Zone 1, Side Rails Side Rails x3, Bed position Low and Locked. Fall Precautions: Yellow Socks Yellow Gown Door Sign Patient Fall Education Report given to Holly TANNER].
[2020-07-22 07:49] LABS: PHOSPHORUS 3.1 MG/DL (2.5-4.9)
--- NOTE | 2020-07-22 08:00 | NUR ---
NURSE NOTES: PT WAS ASSESSED AFTER RECEIVING CHANGE OF SHIFT REPORT FROM FLORES BO. PT'S VSS, NO SIGNS OF DISTRESS NOTED. PT OPENS EYES SPONTANEOUSLY BUT DOES NOT FOLLOW COMMANDS. ON CONTINUOUS CARDIAC MONITORING, NSR. RESPIRATIONS EVEN AND UNLABORED, INTUBATED, ON THE VENTILATOR WITH THE FOLLOWING SETTINGS: ETT 7.5 AT 25 CM LIP LINE, A/C RATE OF 14, T/V 600, FIO2 35%, NO PEEP, O2 SAT 95-100%. PT HAS GLUCERNA 1.2 RUNNING AT 60 ML/HR THROUGH NG TUBE, NO RESIDUAL NOTED, ABDOMEN SOFT AND NON-TENDER, ACTIVE BOWEL SOUNDS. PT HAS TIERNEY CATHETER, DRAINING WELL, CLEAR YELLOW URINE NOTED. SKIN ALTERATIONS NOTED, SITES ARE COVERED WITH APPROPRIATE DRESSINGS, PT ON PRESSURE RELEASE MATTRESS. PT HAS JACQUIE PICC, DRESSING CLEAN DRY AND INTACT, NO BLEEDING OR COMPLICATIONS NOTED FROM SITE. NO DRIPS RUNNING AT THIS TIME, LEVOPHED IS CURRENTLY ON HOLD WITH SBP ABOVE 90. BED RAILS UP, BED LOCKED AND IN LOW POSITION. SAFETY PRECAUTIONS MAINTAINED. WILL CONTINUE TO MONITOR.
[2020-07-22] MEDS ORDERED: Midodrine 10mg tab ORAL SCH (09:00)
--- NOTE | 2020-07-22 09:09 | Infectious Diseases Prog Note ---
Assessment/Plan 79yo M with: SEptic Shock- SP Fever,r ecurrent, low grade Leukocytosis ;recurrent ; increased; -SP Acute hypoxic resp failure, on NRB mask> 4l NC; back on NRB, desaturation 07/09 > intubated 07/17 Pneumonia- >HAP hx of COVID19 PNA 05/20/20 --07/21 CXR: Bilateral infiltrates in a peribronchovascular distribution are unchanged. Left pleural effusion is unchanged. --07/19 CXR: Persistent bilateral patchy pulmonary opacities, most prominent in the left lower lung. --07/18 ucx neg sp cx MRSA (colonizer at this point) Bcx p --07/13 Bcx Neg 07/10 Sp cx MRSA (Vancomycin APOLONIA 1), ESBL E.coli 07/03 BCx NTD UA WBC, UCx Neg 07/03 COVID rapid neg; 07/06 rapid COVID PCR + (from prior infection)- not new infection Flu A/B neg CXR: L pna Resp cx MRSA Denis on CKD, improving SNF resident ([facility]) Non-verbal VRE and MRSA colonized Plan: Meropenem #06/24 for ESBL PNA -07/21 SP Micafungin #4 -07/17 SP IV Vancomycin #15 -07/13 SP Zosyn #4 -07/06 SP Cefepime # -07/04 SP Flagyl # Monitor CBC/CMP Monitor resp status Monitor temp curve and hemodynamics repeat cultures D/w RN Thank you for this consult. [facility] will continue to follow. Subjective Allergies: Coded Allergies: No Known Allergies (Unverified , 04/30/12) T, 100.2 FIo2 35% off pressors Objective Last 24 Hour Vital Signs Date Time Temp Pulse Resp B/P (MAP) Pulse Ox O2 Delivery O2 Flow Rate FiO2 07/22/20 07:00 88 16 83/53 (63) 99 07/22/20 06:30 90 15 07/22/20 06:00 91 16 111/65 (80) 99 07/22/20 05:30 97 16 94/58 (70) 98 07/22/20 05:00 93 20 83/38 (53) 99 07/22/20 04:30 90 18 103/61 (75) 98 07/22/20 04:00 88 11/11/20 04:00 Mechanical Ventilator 07/22/20 04:00 98.3 92 18 120/66 (84) 100 07/22/20 04:00 35 07/22/20 03:30 92 21 111/68 (82) 99 07/22/20 03:00 95 19 107/59 (75) 100 07/22/20 02:51 96 20 35 07/22/20 02:30 96 20 118/66 (83) 99 07/22/20 02:00 98.8 99 22 123/67 (85) 99 07/22/20 01:00 93 19 112/60 (77) 99 07/22/20 00:00 100.2 94 15 89/53 (65) 98 07/22/20 00:00 35 07/22/20 00:00 93 07/22/20 00:00 Mechanical Ventilator 07/21/20 23:00 97 15 93/52 (66) 98 07/21/20 22:54 93 16 35 07/21/20 22:00 93 15 93/54 (67) 98 07/21/20 21:00 88 16 120/66 (84) 100 07/21/20 20:45 88 16 129/63 (85) 100 07/21/20 20:30 84 14 96/59 (71) 99 07/21/20 20:15 87 14 106/62 (77) 99 07/21/20 20:00 35 07/21/20 20:00 98.6 88 15 116/64 (81) 100 07/21/20 20:00 Mechanical Ventilator 07/21/20 19:30 90 15 111/62 (78) 100 07/21/20 19:15 88 16 112/66 (81) 100 07/21/20 19:00 86 14 35 07/21/20 19:00 86 18 128/68 (88) 100 07/21/20 17:45 88 18 129/70 (89) 100 07/21/20 17:30 86 19 129/65 (86) 100 07/21/20 17:15 85 19 122/70 (87) 99 07/21/20 17:00 84 19 113/64 (80) 98 07/21/20 16:59 88 16 103/22 07/21/20 16:29 98 18 112/35 07/21/20 16:00 35 07/21/20 16:00 Mechanical Ventilator 07/21/20 16:00 87 07/21/20 16:00 96.9 86 20 131/73 (92) 100 07/21/20 15:20 92 19 35 07/21/20 15:00 88 19 118/75 (89) 100 07/21/20 14:00 85 20 142/75 (97) 100 07/21/20 13:22 Mechanical Ventilator 07/21/20 13:00 Mechanical Ventilator 07/21/20 12:45 83 19 132/70 (90) 99 07/21/20 12:30 84 18 139/72 (94) 100 07/21/20 12:15 87 17 128/65 (86) 99 07/21/20 12:09 113/44 07/21/20 12:09 Mechanical Ventilator 07/21/20 12:00 97.0 84 19 116/70 (85) 100 07/21/20 12:00 Mechanical Ventilator 07/21/20 12:00 Mechanical Ventilator 07/21/20 12:00 35 07/21/20 11:38 84 07/21/20 11:30 84 16 115/65 (82) 100 07/21/20 11:15 86 19 138/79 (98) 99 07/21/20 11:14 83 19 35 07/21/20 11:00 Mechanical Ventilator 07/21/20 11:00 81 16 131/72 (91) 100 07/21/20 10:30 83 16 129/68 (88) 100 07/21/20 10:15 82 16 125/62 (83) 100 07/21/20 10:00 83 15 133/69 (90) 100 07/21/20 10:00 Mechanical Ventilator 07/21/20 09:45 80 15 119/60 (79) 99 07/21/20 09:30 85 16 120/63 (82) 98 07/21/20 09:15 85 16 107/58 (74) 98 Height (Feet): 5 Height (Inches): 4.00 Weight (Pounds): 130 Gen: sedated, intubated CV: RRR Pulm: Rhonchi anteriorly Abd: Soft, NTND Ext: No c/c/e Laboratory Tests Test 07/21/20 09:08 07/21/20 18:14 07/22/20 00:07 07/22/20 03:31 Arterial Blood pH 7.487 (7.350-7.450) Arterial Blood Partial Pressure CO2 32.9 mmHg (35.0-45.0) L Arterial Blood Partial Pressure O2 77.1 mmHg (75.0-100.0) Arterial Blood HCO3 24.3 mmol/L (22.0-26.0) Arterial Blood Oxygen Saturation 95.7 % (95-100) Arterial Blood Base Excess 1.2 (-2-2) Richard Test Positive POC Whole Blood Glucose Pending 126 MG/DL (74-106) H 137 MG/DL (74-106) H Test 07/22/20 04:00 White Blood Count 10.8 K/UL (4.8-10.8) Red Blood Count 2.93 M/UL (4.70-6.10) L Hemoglobin 9.0 G/DL (14.2-18.0) L Hematocrit 28.2 % (42.0-52.0) L Mean Corpuscular Volume 96 FL (80-99) Mean Corpuscular Hemoglobin 30.5 PG (27.0-31.0) Mean Corpuscular Hemoglobin Concent 31.8 G/DL (32.0-36.0) L Red Cell Distribution Width 15.1 % (11.6-14.8) H Platelet Count 413 K/UL (150-450) Mean Platelet Volume 7.8 FL (6.5-10.1) Neutrophils (%) (Auto) 79.2 % (45.0-75.0) H Lymphocytes (%) (Auto) 13.7 % (20.0-45.0) L Monocytes (%) (Auto) 5.7 % (1.0-10.0) Eosinophils (%) (Auto) 0.9 % (0.0-3.0) Basophils (%) (Auto) 0.5 % (0.0-2.0) Sodium Level 140 MMOL/L (136-145) Potassium Level 4.2 MMOL/L (3.5-5.1) Chloride Level 106 MMOL/L (98-107) Carbon Dioxide Level 28 MMOL/L (21-32) Anion Gap 6 mmol/L (5-15) Blood Urea Nitrogen 19 mg/dL (7-18) H Creatinine 0.9 MG/DL (0.55-1.30) Estimat Glomerular Filtration Rate > 60 mL/min (>60) Glucose Level 127 MG/DL (74-106) H Calcium Level 8.0 MG/DL (8.5-10.1) L Phosphorus Level 3.1 MG/DL (2.5-4.9) Magnesium Level 2.5 MG/DL (1.8-2.4) H Total Bilirubin 0.2 MG/DL (0.2-1.0) Aspartate Amino Transf (AST/SGOT) 36 U/L (15-37) Alanine Aminotransferase (ALT/SGPT) 29 U/L (12-78) Alkaline Phosphatase 187 U/L (46-116) H Total Protein 6.3 G/DL (6.4-8.2) L Albumin 1.3 G/DL (3.4-5.0) L Globulin 5.0 g/dL Albumin/Globulin Ratio 0.3 (1.0-2.7) L Current Medications Medications (Trade) Dose Ordered Sig/Ankush Route PRN Reason Start Time Stop Time Status Last Admin Dose Admin Acetaminophen (Tylenol) 650 mg Q4H PRN ORAL Temp >100.5 07/03/20 20:30 08/02/20 20:29 07/16/20 22:39 Chlorhexidine Gluconate (Darcy-Hex 2%) 1 applic DAILY@1999 TOPIC 07/17/20 20:00 10/15/20 19:59 07/21/20 20:15 Dextrose (Dextrose 50%) 50 ml Q30M PRN IV Hypoglycemia 07/03/20 22:45 10/01/20 22:44 Heparin Sodium (Porcine) (Heparin 5000 units/ml) 5,000 units EVERY 12 HOURS SUBQ 07/03/20 21:00 08/17/20 20:59 07/21/20 20:47 Insulin Aspart (NovoLOG) EVERY 6 HOURS SUBQ 07/13/20 06:00 10/02/20 06:29 07/21/20 18:29 Lorazepam (Ativan 2mg/ml 1ml) 2 mg Q4H PRN IV For Anxiety 07/21/20 13:45 07/28/20 13:44 07/21/20 16:29 Meropenem 1 gm/ Sodium Chloride 55 ml @ 110 mls/hr Q12HR@0400,1600 IVPB 07/13/20 16:00 07/22/20 23:59 07/22/20 04:21 Midodrine (Pro-Amatine) 10 mg Q8HR ORAL 07/22/20 09:00 10/17/20 17:59 Morphine Sulfate (Morphine Sulfate) 2 mg Q6H PRN IVP moderate pain 07/21/20 13:45 07/28/20 13:44 Morphine Sulfate (Morphine Sulfate) 4 mg Q4H PRN IVP severe pain 07/17/20 12:45 07/24/20 12:44 Nitroglycerin (Ntg) 0.4 mg Q5M PRN SL Prn Chest Pain 07/03/20 20:30 08/02/20 20:29 Norepinephrine Bitartrate 250 ml @ 0 mls/hr Q24H IV 07/20/20 15:45 07/23/20 15:44 07/21/20 12:09 Ondansetron HCl (Zofran) 4 mg Q6H PRN IVP Nausea & Vomiting 07/03/20 20:30 08/02/20 20:29 Pantoprazole (Protonix) 40 mg DAILY IV 07/18/20 09:00 08/17/20 08:59 07/21/20 08:56 Polyethylene Glycol (Miralax) 17 gm DAILYPRN PRN ORAL Constipation 07/03/20 20:30 08/02/20 20:29 Promethazine HCl/ Codeine (Phenergan with Codeine) 5 ml Q4H PRN ORAL For Cough 07/03/20 20:30 08/02/20 20:29 Sodium Chloride 1,000 ml @ 50 mls/hr Q20H IV 07/17/20 16:00 08/16/20 15:59 07/21/20 18:00 Tamsulosin HCl (Flomax) 0.4 mg BID ORAL 07/11/20 19:45 08/03/20 08:59 07/21/20 17:18 Ashley Cho M.D. Jul 22, 2020 09:09
[2020-07-22] MEDS: Tamsulosin 0.4mg cap ORAL SCH ×2 (09:34→17:14)
[2020-07-22] MEDS: Pantoprazole Inj IV SCH (09:34)
[2020-07-22] MEDS: Heparin 5000 units/ml inj SUBQ SCH ×2 (09:35→21:06)
--- NOTE | 2020-07-22 10:00 | NUR ---
NURSE NOTES: SCHEDULED MEDICATIONS GIVEN PER MD ORDER, PT TOLERATED WELL. VS REMAIN STABLE, AFEBRILE, NO SIGNS OF DISTRESS NOTED. SAFETY PRECAUTIONS MAINTAINED. WILL CONTINUE TO MONITOR.
--- NOTE | 2020-07-22 10:29 | Pulmonolgy Critical Care Note ---
Critical Care - Asmt/Plan Problems: (1) Acute respiratory failure (2) Multifocal pneumonia (3) 2019 novel coronavirus disease (COVID-19) (4) Acute encephalopathy (5) Severe sepsis (6) Alzheimer's dementia (7) HTN (hypertension) (8) History of CVA (cerebrovascular accident) (9) BPH (benign prostatic hyperplasia) Respiratory: monitor respiratory rate, adjust FIO2, CXR Cardiac: continue pressors, continue to monitor HR/BP Renal: F/U I&O, keep IV fluid, check electrolytes Infectious Disease: check cultures Gastrointestinal: continue feedings/current rate Endocrine: continue sliding scale insulin Hematologic: monitor H/H, transfuse if hgb<8.5 Neurologic: keep patient comfortable Affect: PRN ativan Prophylaxis: Protonix Disposition: keep in ICU Time Spent (Minutes): 40 Notes Reviewed: manager money, cardio, renal Discussed with: nurses, consultants, case manager specialistmanager epic - Objective Last 24 Hour Vital Signs Date Time Temp Pulse Resp B/P (MAP) Pulse Ox O2 Delivery O2 Flow Rate FiO2 07/22/20 09:00 88 15 90/53 (65) 98 07/22/20 08:00 99.8 89 14 87/51 (63) 99 07/22/20 07:00 88 16 83/53 (63) 99 07/22/20 06:30 90 15 07/22/20 06:00 91 16 111/65 (80) 99 07/22/20 05:30 97 16 94/58 (70) 98 07/22/20 05:00 93 20 83/38 (53) 99 07/22/20 04:30 90 18 103/61 (75) 98 07/22/20 04:00 88 07/22/20 04:00 Mechanical Ventilator 07/22/20 04:00 98.3 92 18 120/66 (84) 100 07/22/20 04:00 35 07/22/20 03:30 92 21 111/68 (82) 99 07/22/20 03:00 95 19 107/59 (75) 100 07/22/20 02:51 96 20 35 07/22/20 02:30 96 20 118/66 (83) 99 07/22/20 02:00 98.8 99 22 123/67 (85) 99 07/22/20 01:00 93 19 112/60 (77) 99 07/22/20 00:00 100.2 94 15 89/53 (65) 98 07/22/20 00:00 35 07/22/20 00:00 93 07/22/20 00:00 Mechanical Ventilator 07/21/20 23:00 97 15 93/52 (66) 98 07/21/20 22:54 93 16 35 07/21/20 22:00 93 15 93/54 (67) 98 07/21/20 21:00 88 16 120/66 (84) 100 07/21/20 20:45 88 16 129/63 (85) 100 07/21/20 20:30 84 14 96/59 (71) 99 07/21/20 20:15 87 14 106/62 (77) 99 07/21/20 20:00 35 07/21/20 20:00 98.6 88 15 116/64 (81) 100 07/21/20 20:00 Mechanical Ventilator 07/21/20 19:30 90 15 111/62 (78) 100 07/21/20 19:15 88 16 112/66 (81) 100 07/21/20 19:00 86 14 35 07/21/20 19:00 86 18 128/68 (88) 100 07/21/20 17:45 88 18 129/70 (89) 100 07/21/20 17:30 86 19 129/65 (86) 100 07/21/20 17:15 85 19 122/70 (87) 99 07/21/20 17:00 84 19 113/64 (80) 98 07/21/20 16:59 88 16 103/22 07/21/20 16:29 98 18 112/35 07/21/20 16:00 35 07/21/20 16:00 Mechanical Ventilator 07/21/20 16:00 87 07/21/20 16:00 96.9 86 20 131/73 (92) 100 07/21/20 15:20 92 19 35 07/21/20 15:00 88 19 118/75 (89) 100 07/21/20 14:00 85 20 142/75 (97) 100 07/21/20 13:22 Mechanical Ventilator 07/21/20 13:00 Mechanical Ventilator 07/21/20 12:45 83 19 132/70 (90) 99 07/21/20 12:30 84 18 139/72 (94) 100 07/21/20 12:15 87 17 128/65 (86) 99 07/21/20 12:09 113/44 07/21/20 12:09 Mechanical Ventilator 07/21/20 12:00 97.0 84 19 116/70 (85) 100 07/21/20 12:00 Mechanical Ventilator 07/21/20 12:00 Mechanical Ventilator 07/21/20 12:00 35 07/21/20 11:38 84 07/21/20 11:30 84 16 115/65 (82) 100 07/21/20 11:15 86 19 138/79 (98) 99 07/21/20 11:14 83 19 35 07/21/20 11:00 Mechanical Ventilator 07/21/20 11:00 81 16 131/72 (91) 100 07/21/20 10:30 83 16 129/68 (88) 100 Status: sedated Condition: critical HEENT: atraumatic, normocephalic Lungs: chest wall tender Heart: HR/BP unstable Abdomen: soft, non-tender, active bowel sounds, feeding tube Extremities: no C/C/E Accucheck: 137 Critical Care - Subjective ROS Limited/Unobtainable: Yes Interval Events: off levophed, lots of secretions FI02: 35 Vent Support Breath Rate: 14 Vent Support Mode: AC Vent Tidal Volume: 600 Sputum Amount: Moderate PEEP: 0.0 PIP: 41 Tube Feeding Amount: 60 I&O: Intake and Output 0 07/21/20 07/22/20 19:00 07:00 Intake Total 1479.75 ml 1471.00 ml Output Total 1225 ml 1280 ml Balance 254.75 ml 191.00 ml Free Water 90 ml IV Total 819.75 ml 661.00 ml Tube Feeding 660 ml 720 ml Output Urine Total 1225 ml 1280 ml # Bowel Movements 1 3 CXR: Stable satisfactory tube and line positions. Bilateral infiltrates in a peribronchovascular distribution are unchanged. Left pleural effusion is unchanged. ET-Tube: 7.5 ET Position: 25 Labs: Laboratory Tests Test 07/21/20 18:14 07/22/20 00:07 07/22/20 03:31 07/22/20 04:00 POC Whole Blood Glucose Pending 126 MG/DL (74-106) H 137 MG/DL (74-106) H White Blood Count 10.8 K/UL (4.8-10.8) Red Blood Count 2.93 M/UL (4.70-6.10) L Hemoglobin 9.0 G/DL (14.2-18.0) L Hematocrit 28.2 % (42.0-52.0) L Mean Corpuscular Volume 96 FL (80-99) Mean Corpuscular Hemoglobin 30.5 PG (27.0-31.0) Mean Corpuscular Hemoglobin Concent 31.8 G/DL (32.0-36.0) L Red Cell Distribution Width 15.1 % (11.6-14.8) H Platelet Count 413 K/UL (150-450) Mean Platelet Volume 7.8 FL (6.5-10.1) Neutrophils (%) (Auto) 79.2 % (45.0-75.0) H Lymphocytes (%) (Auto) 13.7 % (20.0-45.0) L Monocytes (%) (Auto) 5.7 % (1.0-10.0) Eosinophils (%) (Auto) 0.9 % (0.0-3.0) Basophils (%) (Auto) 0.5 % (0.0-2.0) Sodium Level 140 MMOL/L (136-145) Potassium Level 4.2 MMOL/L (3.5-5.1) Chloride Level 106 MMOL/L (98-107) Carbon Dioxide Level 28 MMOL/L (21-32) Anion Gap 6 mmol/L (5-15) Blood Urea Nitrogen 19 mg/dL (7-18) H Creatinine 0.9 MG/DL (0.55-1.30) Estimat Glomerular Filtration Rate > 60 mL/min (>60) Glucose Level 127 MG/DL (74-106) H Calcium Level 8.0 MG/DL (8.5-10.1) L Phosphorus Level 3.1 MG/DL (2.5-4.9) Magnesium Level 2.5 MG/DL (1.8-2.4) H Total Bilirubin 0.2 MG/DL (0.2-1.0) Aspartate Amino Transf (AST/SGOT) 36 U/L (15-37) Alanine Aminotransferase (ALT/SGPT) 29 U/L (12-78) Alkaline Phosphatase 187 U/L (46-116) H Total Protein 6.3 G/DL (6.4-8.2) L Albumin 1.3 G/DL (3.4-5.0) L Globulin 5.0 g/dL Albumin/Globulin Ratio 0.3 (1.0-2.7) L Kya Carreno MD Jul 22, 2020 10:29
--- NOTE | 2020-07-22 10:33 | Nephrology Progress Note ---
Assessment/Plan Problem List: (1) Dehydration (2) MELANIE (acute kidney injury) (3) Renal failure (ARF), acute on chronic (4) Hypoxia (5) Acute encephalopathy (6) Electrolyte imbalance Assessment 79-year-old male is admitted with acute hypoxic respiratory failure most likely secondary to pneumonia and sepsis, UTI. Acute on chronic renal failure Dehydration Electrolyte imbalances, hypernatremia Hypoalbuminemia Diabetes type 2 History of congestive heart failure Hypertension Hyperlipemia Alzheimer's Previous COVID-19 infection in May 2020 Plan July 22: Remains intubated. Full code. Blood pressure borderline low. Will increase midodrine dose. Discussed with RN. Continue to monitor renal parameters and electrolytes. July 21: Intubated. Full code. Labs reviewed. Stable from renal standpoint of view. Continue per consultants. July 20: Remains intubated. Full code. Labs reviewed. Electrolytes within normal limit. Continue per consultants. July 19: In ICU. Remains intubated on ventilator. Remains full code. Low p otassium addressed. Blood pressure fluctuating. Continue per consultants. July 18: Patient in ICU. Intubated on ventilator. On 6 mics of Levophed. Will give 100 cc albumin 25%. K-Phos IV ordered. Continue per consultants. Continue monitor renal parameters and electrolytes. July 17: Status unchanged. Transfer to [facility] for seizure. Stable from renal standpoint to view. Continue per consultants. July 16: Status quo. Labs reviewed. Renal parameters stable. Continue per consultants. July 15: On nonrebreather mask. Labs reviewed. Renal parameters stable.Continue per assistant case manager. Clinically unchanged. July 14: On nonrebreather mask. Inflammatory markers gradually declining. Renal parameters stable. Continue per pulmonary. July 13: Remains on nonrebreather mask. Inflammatory markers remain elevated. Renal parameters somewhat stable. Continue per pulmonary and ID. Remains full code. July 12: Patient on nonrebreather mask. Labs noted. Serum creatinine down to 1.3. Continue per consultants. July 11: Patient on nonrebreather mask. Transfer to telemetry when seen this morning. Labs noted. Continue per consultants. Serum creatinine erin to 1.7. Continue to monitor renal parameters. Continue to monitor vancomycin level July 10: Patient is not doing well clinically. Mild respiratory distress. ABG noted. Somewhat hypoxic. CBC and chemistry panel ordered. Discussed with FLORES Cho. Will defer to pulmonary management to specialist. Continue per ID. Renal parameters remained stable as of July 09. July 09: Labs reviewed. Renal parameters stable. Continue per consultants. July 08: Labs reviewed. Potassium via NG tube ordered. IV fluids stopped. Continue per consultants. July 07: Labs reviewed. Low potassium and low phosphorus replaced. Continue per consultants. Remains stable from renal standpoint of view. July 06: Patient remains n.p.o. IV fluid down to 50 cc an hour. Potassium supplement intravenously ordered. Continue per consultants. Previously: Patient is n.p.o., will continue on IV fluid of D5W 75 cc an hour We will monitor electrolytes and renal parameters Avoid nephrotoxic's Start p.o. when he clears by speech therapist, meanwhile aspiration precautions Keep the blood pressure and blood sugar in check Per orders Subjective ROS Limited/Unobtainable: Yes Objective Objective Last 24 Hour Vital Signs Date Time Temp Pulse Resp B/P (MAP) Pulse Ox O2 Delivery O2 Flow Rate FiO2 07/22/20 09:00 88 15 90/53 (65) 98 07/22/20 08:00 99.8 89 14 87/51 (63) 99 07/22/20 07:00 88 16 83/53 (63) 99 07/22/20 06:30 90 15 07/22/20 06:00 91 16 111/65 (80) 99 07/22/20 05:30 97 16 94/58 (70) 98 07/22/20 05:00 93 20 83/38 (53) 99 07/22/20 04:30 90 18 103/61 (75) 98 07/22/20 04:00 88 07/22/20 04:00 Mechanical Ventilator 07/22/20 04:00 98.3 92 18 120/66 (84) 100 07/22/20 04:00 35 07/22/20 03:30 92 21 111/68 (82) 99 07/22/20 03:00 95 19 107/59 (75) 100 07/22/20 02:51 96 20 35 07/22/20 02:30 96 20 118/66 (83) 99 07/22/20 02:00 98.8 99 22 123/67 (85) 99 07/22/20 01:00 93 19 112/60 (77) 99 07/22/20 00:00 100.2 94 15 89/53 (65) 98 07/22/20 00:00 35 07/22/20 00:00 93 07/22/20 00:00 Mechanical Ventilator 07/21/20 23:00 97 15 93/52 (66) 98 07/21/20 22:54 93 16 35 07/21/20 22:00 93 15 93/54 (67) 98 07/21/20 21:00 88 16 120/66 (84) 100 07/21/20 20:45 88 16 129/63 (85) 100 07/21/20 20:30 84 14 96/59 (71) 99 07/21/20 20:15 87 14 106/62 (77) 99 07/21/20 20:00 35 07/21/20 20:00 98.6 88 15 116/64 (81) 100 07/21/20 20:00 Mechanical Ventilator 07/21/20 19:30 90 15 111/62 (78) 100 07/21/20 19:15 88 16 112/66 (81) 100 07/21/20 19:00 86 14 35 07/21/20 19:00 86 18 128/68 (88) 100 07/21/20 17:45 88 18 129/70 (89) 100 07/21/20 17:30 86 19 129/65 (86) 100 07/21/20 17:15 85 19 122/70 (87) 99 07/21/20 17:00 84 19 113/64 (80) 98 07/21/20 16:59 88 16 103/22 07/21/20 16:29 98 18 112/35 07/21/20 16:00 35 07/21/20 16:00 Mechanical Ventilator 07/21/20 16:00 87 07/21/20 16:00 96.9 86 20 131/73 (92) 100 07/21/20 15:20 92 19 35 07/21/20 15:00 88 19 118/75 (89) 100 07/21/20 14:00 85 20 142/75 (97) 100 07/21/20 13:22 Mechanical Ventilator 07/21/20 13:00 Mechanical Ventilator 07/21/20 12:45 83 19 132/70 (90) 99 07/21/20 12:30 84 18 139/72 (94) 100 07/21/20 12:15 87 17 128/65 (86) 99 07/21/20 12:09 113/44 07/21/20 12:09 Mechanical Ventilator 07/21/20 12:00 97.0 84 19 116/70 (85) 100 07/21/20 12:00 Mechanical Ventilator 07/21/20 12:00 Mechanical Ventilator 07/21/20 12:00 35 07/21/20 11:38 84 07/21/20 11:30 84 16 115/65 (82) 100 07/21/20 11:15 86 19 138/79 (98) 99 07/21/20 11:14 83 19 35 07/21/20 11:00 Mechanical Ventilator 07/21/20 11:00 81 16 131/72 (91) 100 Intake and Output 07/21/20 07/22/20 19:00 07:00 Intake Total 1479.75 ml 1471.00 ml Output Total 1225 ml 1280 ml Balance 254.75 ml 191.00 ml Free Water 90 ml IV Total 819.75 ml 661.00 ml Tube Feeding 660 ml 720 ml Output Urine Total 1225 ml 1280 ml # Bowel Movements 1 3 Laboratory Tests 07/21/20 18:14: POC Whole Blood Glucose [Pending] 07/22/20 00:07: POC Whole Blood Glucose 126H 07/22/20 03:31: POC Whole Blood Glucose 137H 07/22/20 04:00: White Blood Count 10.8, Red Blood Count 2.93L, Hemoglobin 9.0L, Hematocrit 28.2L , Mean Corpuscular Volume 96, Mean Corpuscular Hemoglobin 30.5, Mean Corpuscular Hemoglobin Concent 31.8L, Red Cell Distribution Width 15.1H, Platelet Count 413, Mean Platelet Volume 7.8, Neutrophils (%) (Auto) 79.2H, Lymphocytes (%) (Auto) 13.7L, Monocytes (%) (Auto) 5.7, Eosinophils (%) (Auto) 0.9, Basophils (%) (Auto) 0.5, Sodium Level 140, Potassium Level 4.2, Chloride Level 106, Carbon Dioxide Level 28, Anion Gap 6, Blood Urea Nitrogen 19H, Creatinine 0.9, Estimat Glomerular Filtration Rate > 60, Glucose Level 127H, Calcium Level 8.0L, Phosphorus Level 3.1, Magnesium Level 2.5H, Total Bilirubin 0.2, Aspartate Amino Transf (AST/SGOT) 36, Alanine Aminotransferase (ALT/SGPT) 29, Alkaline Wendy sphatase 187H, Total Protein 6.3L, Albumin 1.3L, Globulin 5.0, Albumin/Globulin Ratio 0.3L Height (Feet): 5 Height (Inches): 4.00 Weight (Pounds): 130 General Appearance: no apparent distress EENT: other - Debated on ventilator Cardiovascular: normal rate Respiratory/Chest: decreased breath sounds Abdomen: distended Tino Connors MD Jul 22, 2020 10:33
--- NOTE | 2020-07-22 12:35 | Internal Med Progress Note ---
Subjective Date of Service: Jul 22, 2020 Physician Name Dano Groves Attending Physician Ahsan Hodges MD Current Medications Medications (Trade) Dose Ordered Sig/Ankush Route PRN Reason Start Time Stop Time Status Last Admin Dose Admin Acetaminophen (Tylenol) 650 mg Q4H PRN ORAL Temp >100.5 07/03/20 20:30 08/02/20 20:29 07/16/20 22:39 Chlorhexidine Gluconate (Darcy-Hex 2%) 1 applic DAILY@1999 TOPIC 07/17/20 20:00 10/15/20 19:59 07/21/20 20:15 Dextrose (Dextrose 50%) 50 ml Q30M PRN IV Hypoglycemia 07/03/20 22:45 10/01/20 22:44 Heparin Sodium (Porcine) (Heparin 5000 units/ml) 5,000 units EVERY 12 HOURS SUBQ 07/03/20 21:00 08/17/20 20:59 07/22/20 09:35 Insulin Aspart (NovoLOG) EVERY 6 HOURS SUBQ 07/13/20 06:00 10/02/20 06:29 07/21/20 18:29 Lorazepam (Ativan 2mg/ml 1ml) 2 mg Q4H PRN IV For Anxiety 07/21/20 13:45 07/28/20 13:44 07/21/20 16:29 Meropenem 1 gm/ Sodium Chloride 55 ml @ 110 mls/hr Q8HR@0400,1200,1999 IVPB 07/22/20 12:00 07/27/20 11:59 Midodrine (Pro-Amatine) 10 mg Q8HR ORAL 07/22/20 09:00 10/17/20 17:59 07/22/20 09:34 Morphine Sulfate (Morphine Sulfate) 2 mg Q6H PRN IVP moderate pain 07/21/20 13:45 07/28/20 13:44 Morphine Sulfate (Morphine Sulfate) 4 mg Q4H PRN IVP severe pain 07/17/20 12:45 07/24/20 12:44 Nitroglycerin (Ntg) 0.4 mg Q5M PRN SL Prn Chest Pain 07/03/20 20:30 08/02/20 20:29 Norepinephrine Bitartrate 250 ml @ 0 mls/hr Q24H IV 07/20/20 15:45 07/23/20 15:44 07/21/20 12:09 Ondansetron HCl (Zofran) 4 mg Q6H PRN IVP Nausea & Vomiting 07/03/20 20:30 08/02/20 20:29 Pantoprazole (Protonix) 40 mg DAILY IV 07/18/20 09:00 08/17/20 08:59 07/22/20 09:34 Polyethylene Glycol (Miralax) 17 gm DAILYPRN PRN ORAL Constipation 07/03/20 20:30 08/02/20 20:29 Promethazine HCl/ Codeine (Phenergan with Codeine) 5 ml Q4H PRN ORAL For Cough 07/03/20 20:30 08/02/20 20:29 Sodium Chloride 1,000 ml @ 50 mls/hr Q20H IV 07/17/20 16:00 08/16/20 15:59 07/21/20 18:00 Tamsulosin HCl (Flomax) 0.4 mg BID ORAL 07/11/20 19:45 08/03/20 08:59 07/22/20 09:34 Allergies: Coded Allergies: No Known Allergies (Unverified , 04/30/12) ROS Limited/Unobtainable: Yes Subjective 79 YO M admitted with shortness of breath. Now pneumonia; previously COVID positive. Cover for Int laina-Dr Hodges. ICU. Intubated and sedated Objective Last Vital Signs Date Time Temp Pulse Resp B/P (MAP) Pulse Ox O2 Delivery O2 Flow Rate FiO2 07/22/20 12:00 105 07/22/20 12:00 96.8 21 108/67 (81) 96 07/22/20 12:00 35 07/22/20 08:00 Mechanical Ventilator 07/17/20 12:00 15.0 Laboratory Tests Test 07/21/20 18:14 07/22/20 00:07 07/22/20 03:31 07/22/20 04:00 POC Whole Blood Glucose Pending 126 MG/DL (74-106) H 137 MG/DL (74-106) H White Blood Count 10.8 K/UL (4.8-10.8) Red Blood Count 2.93 M/UL (4.70-6.10) L Hemoglobin 9.0 G/DL (14.2-18.0) L Hematocrit 28.2 % (42.0-52.0) L Mean Corpuscular Volume 96 FL (80-99) Mean Corpuscular Hemoglobin 30.5 PG (27.0-31.0) Mean Corpuscular Hemoglobin Concent 31.8 G/DL (32.0-36.0) L Red Cell Distribution Width 15.1 % (11.6-14.8) H Platelet Count 413 K/UL (150-450) Mean Platelet Volume 7.8 FL (6.5-10.1) Neutrophils (%) (Auto) 79.2 % (45.0-75.0) H Lymphocytes (%) (Auto) 13.7 % (20.0-45.0) L Monocytes (%) (Auto) 5.7 % (1.0-10.0) Eosinophils (%) (Auto) 0.9 % (0.0-3.0) Basophils (%) (Auto) 0.5 % (0.0-2.0) Sodium Level 140 MMOL/L (136-145) Potassium Level 4.2 MMOL/L (3.5-5.1) Chloride Level 106 MMOL/L (98-107) Carbon Dioxide Level 28 MMOL/L (21-32) Anion Gap 6 mmol/L (5-15) Blood Urea Nitrogen 19 mg/dL (7-18) H Creatinine 0.9 MG/DL (0.55-1.30) Estimat Glomerular Filtration Rate > 60 mL/min (>60) Glucose Level 127 MG/DL (74-106) H Calcium Level 8.0 MG/DL (8.5-10.1) L Phosphorus Level 3.1 MG/DL (2.5-4.9) Magnesium Level 2.5 MG/DL (1.8-2.4) H Total Bilirubin 0.2 MG/DL (0.2-1.0) Aspartate Amino Transf (AST/SGOT) 36 U/L (15-37) Alanine Aminotransferase (ALT/SGPT) 29 U/L (12-78) Alkaline Phosphatase 187 U/L (46-116) H Total Protein 6.3 G/DL (6.4-8.2) L Albumin 1.3 G/DL (3.4-5.0) L Globulin 5.0 g/dL Albumin/Globulin Ratio 0.3 (1.0-2.7) L Intake and Output 07/21/20 07/22/20 19:00 07:00 Intake Total 1479.75 ml 1471.00 ml Output Total 1225 ml 1280 ml Balance 254.75 ml 191.00 ml Free Water 90 ml IV Total 819.75 ml 661.00 ml Tube Feeding 660 ml 720 ml Output Urine Total 1225 ml 1280 ml # Bowel Movements 1 3 Objective PHYSICAL EXAMINATION: GENERAL: The patient awake with deep stimuli, open his eyes, however, cannot follow commands. The patient is on a Ventimask at this time, chronically ill-appearing. HEAD AND NECK: Pupils are equal and reactive to light. Anicteric. NECK: Supple. No JVD. LUNGS: Mech vent; wheezing, rhonchi, and decreased air in bases. HEART: S1, S2. Regular rhythm. Distant heart sounds. No murmur or gallop. ABDOMEN: Soft, nondistended, nontender. Positive bowel sounds. EXTREMITIES: No cyanosis, clubbing, or edema. NEUROLOGIC: Very limited secondary to the patient's status, cannot follow commands. Opens his eyes with deep stimuli and moving extremities spontaneously. Assessment/Plan Assessment/Plan ASSESSMENT: 1. Acute hypoxemic respiratory failure, most likely secondary to pneumonia and sepsis. 2. Sepsis secondary to urinary tract infection and pneumonia. 3. pneumonia=MRSA; ESBL E. coli 4. Acute kidney injury on chronic renal insufficiency. 5. Dehydration. 6. History of chronic congestive heart failure. 7. Diabetes type 2. 8. Dyslipidemia. 9. Hypertension. 10. Alzheimer's disease. 11. COVID 19 previous positive PLAN: 1. ICU 2. Dr. Carreno,=Pulmonary Critical Care; follow mech vent recs 3. Dr. Cho = Inf Dis. 4. IV= D5W due to the hypernatremia and dehydration. 5. antibiotics = meropenem; S/P micafungin 6. Code status is full code. 7. DVT prophylaxis is heparin subcutaneous. Dano Groves MD Jul 22, 2020 12:35
[2020-07-22] MEDS: Norepinephrine 4mg/NS Premix 250 ML IV SCH (12:50)
--- NOTE | 2020-07-22 12:50 | NUR ---
NURSE NOTES: PT'S SBP IN THE 80S, LEVOPHED DRIP RESTARTED AT 2 MCG/MIN TO MAINTAIN SBP ABOVE 90, MD OBRIEN AWARE. NO OTHER SIGNS OF DISTRESS NOTED, PT STILL AFEBRILE. SAFETY PRECAUTIONS MAINTAINED. WILL CONTINUE TO MONITOR.
--- NOTE | 2020-07-22 13:05 | Cardiac Electrophysiology PN ---
Assessment/Plan Assessment/Plan 1. Accelerated junctional rhythm. Not bradycardic. Ruled out for [place] Echo showed ejection fraction of 55%. 2. Long run of 31 beats of Nonsustained VT on 07/14/2020. Will need cardiac cath after stabilization. 3. Respiratory failure, on antibiotic and intubated on the vent 4. Septic shock. Off Levophed since 07/21/20. Midodrine 10 id added. 5. Acute renal failure. 6. Electrolyte imbalance. 7. History of CHF, but echocardiogram showed normal left ventricular systolic function. 8. History of previous COVID infection in May 2020 and active Covid now in isolation 9. Dementia. DW RN Subjective Subjective In SR in NAD in Covid isolation. In ICU on the Vent with 35% Fio2. Now off Levo since 9 pm last night. Had 31 beats of VT on 07/14/20 at 16:46 and 5 beats 07/19/20 No VT overnight. S/P PICC line Objective Last 24 Hour Vital Signs Date Time Temp Pulse Resp B/P (MAP) Pulse Ox O2 Delivery O2 Flow Rate FiO2 07/22/20 12:00 105 07/22/20 12:00 96.8 103 21 108/67 (81) 96 07/22/20 12:00 35 07/22/20 11:13 110 22 35 07/22/20 11:00 105 23 147/79 (101) 98 07/22/20 10:00 96 23 132/70 (90) 96 07/22/20 09:00 88 15 90/53 (65) 98 07/22/20 08:00 Mechanical Ventilator 07/22/20 08:00 35 07/22/20 08:00 99.8 89 14 87/51 (63) 99 07/22/20 07:35 85 07/22/20 07:15 88 24 35 07/22/20 07:00 88 16 83/53 (63) 99 07/22/20 06:30 90 15 07/22/20 06:00 91 16 111/65 (80) 99 07/22/20 05:30 97 16 94/58 (70) 98 07/22/20 05:00 93 20 83/38 (53) 99 07/22/20 04:30 90 18 103/61 (75) 98 07/22/20 04:00 88 07/22/20 04:00 Mechanical Ventilator 07/22/20 04:00 98.3 92 18 120/66 (84) 100 07/22/20 04:00 35 07/22/20 03:30 92 21 111/68 (82) 99 07/22/20 03:00 95 19 107/59 (75) 100 07/22/20 02:51 96 20 35 07/22/20 02:30 96 20 118/66 (83) 99 07/22/20 02:00 98.8 99 22 123/67 (85) 99 07/22/20 01:00 93 19 112/60 (77) 99 07/22/20 00:00 100.2 94 15 89/53 (65) 98 07/22/20 00:00 35 07/22/20 00:00 93 07/22/20 00:00 Mechanical Ventilator 07/21/20 23:00 97 15 93/52 (66) 98 07/21/20 22:54 93 16 35 07/21/20 22:00 93 15 93/54 (67) 98 07/21/20 21:00 88 16 120/66 (84) 100 07/21/20 20:45 88 16 129/63 (85) 100 07/21/20 20:30 84 14 96/59 (71) 99 07/21/20 20:15 87 14 106/62 (77) 99 07/21/20 20:00 35 07/21/20 20:00 98.6 88 15 116/64 (81) 100 07/21/20 20:00 Mechanical Ventilator 07/21/20 19:30 90 15 111/62 (78) 100 07/21/20 19:15 88 16 112/66 (81) 100 07/21/20 19:00 86 14 35 07/21/20 19:00 86 18 128/68 (88) 100 07/21/20 17:45 88 18 129/70 (89) 100 07/21/20 17:30 86 19 129/65 (86) 100 07/21/20 17:15 85 19 122/70 (87) 99 07/21/20 17:00 84 19 113/64 (80) 98 07/21/20 16:59 88 16 103/22 07/21/20 16:29 98 18 112/35 07/21/20 16:00 35 07/21/20 16:00 Mechanical Ventilator 07/21/20 16:00 87 07/21/20 16:00 96.9 86 20 131/73 (92) 100 07/21/20 15:20 92 19 35 07/21/20 15:00 88 19 118/75 (89) 100 07/21/20 14:00 85 20 142/75 (97) 100 07/21/20 13:22 Mechanical Ventilator Intake and Output 07/21/20 07/22/20 19:00 07:00 Intake Total 1479.75 ml 1471.00 ml Output Total 1225 ml 1280 ml Balance 254.75 ml 191.00 ml Free Water 90 ml IV Total 819.75 ml 661.00 ml Tube Feeding 660 ml 720 ml Output Urine Total 1225 ml 1280 ml # Bowel Movements 1 3 Laboratory Tests Test 07/21/20 18:14 07/22/20 00:07 07/22/20 03:31 07/22/20 04:00 POC Whole Blood Glucose Pending 126 MG/DL (74-106) H 137 MG/DL (74-106) H White Blood Count 10.8 K/UL (4.8-10.8) Red Blood Count 2.93 M/UL (4.70-6.10) L Hemoglobin 9.0 G/DL (14.2-18.0) L Hematocrit 28.2 % (42.0-52.0) L Mean Corpuscular Volume 96 FL (80-99) Mean Corpuscular Hemoglobin 30.5 PG (27.0-31.0) Mean Corpuscular Hemoglobin Concent 31.8 G/DL (32.0-36.0) L Red Cell Distribution Width 15.1 % (11.6-14.8) H Platelet Count 413 K/UL (150-450) Mean Platelet Volume 7.8 FL (6.5-10.1) Neutrophils (%) (Auto) 79.2 % (45.0-75.0) H Lymphocytes (%) (Auto) 13.7 % (20.0-45.0) L Monocytes (%) (Auto) 5.7 % (1.0-10.0) Eosinophils (%) (Auto) 0.9 % (0.0-3.0) Basophils (%) (Auto) 0.5 % (0.0-2.0) Sodium Level 140 MMOL/L (136-145) Potassium Level 4.2 MMOL/L (3.5-5.1) Chloride Level 106 MMOL/L (98-107) Carbon Dioxide Level 28 MMOL/L (21-32) Anion Gap 6 mmol/L (5-15) Blood Urea Nitrogen 19 mg/dL (7-18) H Creatinine 0.9 MG/DL (0.55-1.30) Estimat Glomerular Filtration Rate > 60 mL/min (>60) Glucose Level 127 MG/DL (74-106) H Calcium Level 8.0 MG/DL (8.5-10.1) L Phosphorus Level 3.1 MG/DL (2.5-4.9) Magnesium Level 2.5 MG/DL (1.8-2.4) H Total Bilirubin 0.2 MG/DL (0.2-1.0) Aspartate Amino Transf (AST/SGOT) 36 U/L (15-37) Alanine Aminotransferase (ALT/SGPT) 29 U/L (12-78) Alkaline Phosphatase 187 U/L (46-116) H Total Protein 6.3 G/DL (6.4-8.2) L Albumin 1.3 G/DL (3.4-5.0) L Globulin 5.0 g/dL Albumin/Globulin Ratio 0.3 (1.0-2.7) L Objective HEAD AND NECK: No JVD. Orally intubated LUNGS: Coarse rhonchi. CARDIOVASCULAR: Irregular S1 and S2 with no gallop. ABDOMEN: Soft. EXTREMITIES: No pitting edema. Klever Matt MD Jul 22, 2020 13:05
[2020-07-22] MEDS: Meropenem 1gm/NS 55ml IVPB SCH ×4 (13:22→19:44)
--- NOTE | 2020-07-22 14:00 | NUR ---
NURSE NOTES: LEVOPHED NOW ON HOLD DUE TO SBP WITHIN PARAMETERS, PT'S VSS, NO SIGNS OF DISTRESS NOTED. PT HAD BM X1, SOFT FORMED BROWN STOOL NOTED. BED BATH AND ORAL CARE PROVIDED, LINENS CHANGED. PT REPOSITIONED AGAIN. SCHEDULED MEDICATIONS GIVEN, PT TOLERATED WELL. SKIN ASSESSMENT PERFORMED, WOUND DRESSINGS CHANGED. HOB AT 30 DEGREES. SAFETY PRECAUTIONS MAINTAINED. WILL CONTINUE TO MONITOR.
[2020-07-22] MEDS ORDERED: Tubing IV Secondary IV ONE ×2 (14:32→22:28)
[2020-07-22] MEDS ORDERED: 1/2 NS 1000ml IV ONE ×2 (14:32→22:28)
[2020-07-22] MEDS ORDERED: Sterile Water Irrig 1000ml IRRIG ONE (14:32)
[2020-07-22] MEDS ORDERED: NS 275ml ONE ×2 (14:32→22:28)
--- NOTE | 2020-07-22 16:00 | NUR ---
NURSE NOTES: VS REMAIN STABLE WHILE LEVOPHED CONTINUES TO BE ON HOLD. PT REMAINS ON COOLING BLANKET WITH CONTINUOUS RECTAL TEMP MONITORING. SAFETY PRECAUTIONS MAINTAINED. WILL CONTINUE TO MONITOR.
--- NOTE | 2020-07-22 16:05 | NUR ---
CASE MANAGEMENT:REVIEW SI;COVID PNA 100.2 110 22 86/57 95% ETT/MECH VENT AC 14 TV 600 PEEP 0 FIO2 35% H/H 9.0/28.2 BUN 19 BG 127 CA 8.0 MAG 2.5 ALP 187 ALB 1.3 IS;MEROPENEM IV Q8 LEVOPHED GTT PROTONIX IV QD FLOMAX PO BID MIDODRINE BG Q8 HEPARIN SUBQ Q12 ICU STATUS DCP;FROM [facility] [place]
[2020-07-22] MEDS: Midodrine 10mg tab ORAL SCH (17:14)
--- NOTE | 2020-07-22 18:00 | NUR ---
NURSE NOTES: Spoke to Jelena paredes regarding accidental transfer of orders to Tele, which was meant for another pt. Per Jael paredes, okay to just place another "process of transfer" back to ICU.
--- NOTE | 2020-07-22 18:15 | NUR ---
NURSE NOTES: Pt was cleaned and repositioned, gown and bed linens changed, oral care done, pt suctioned, ziegler bag emptied, VS remain stable. No signs of distress noted. Safety precautions maintained.
--- NOTE | 2020-07-22 19:15 | NUR ---
NURSE HAND-OFF REPORT: Latest Vital Signs: Temperature 98.0 , Pulse 97 , B/P 127 /67 , Respiratory Rate 17 , O2 SAT 99 , Mechanical Ventilator ETT 7.5 at 25cm/lipline with vent settings, AC14, VT600, Peep 0. FIO2 35% at 100% O2Sat. Vital Sign Comment: SBP remains above 90 while Levophed is on hold. EKG Rhythm: Sinus Rhythm Rhythm change?: N Notified?: Grecia Matt MD Response: Latest Gonzalez Fall Score: 70 Fall Risk: High Risk Safety Measures: Call light Within Reach, Bed Alarm Zone 1, Side Rails Side Rails x3, Bed position Low and Locked. Fall Precautions: Yellow Socks Yellow Gown Door Sign Patient Fall Education Report given to Matilde TANNER; Endorsed plan of care.
--- NOTE | 2020-07-22 19:16 | NUR ---
NURSE NOTES: Received patient from FLORES Barrera. Will continue plan of care.
[2020-07-22] MEDS: Dyna-Hex 2% Top Sol 2oz TOPIC SCH (19:43)
[2020-07-22] MEDS: LORazepam Inj 2mg/ml 1ml IV PRN (19:43)
--- NOTE | 2020-07-22 20:00 | NUR ---
NURSE NOTES: Received patient intubated; ETT 7.5 @ 25cm to the lipline to vent with settings of AC:14, TV:60, FiO2:35%, O2sat:100%. Right nare NGT receiveing feeding of Glucerna 1.2 @ 60ml/hr. Wiley catheter in place and draining. Right upper arm PICC running TKO and NS @ 50ml/hr. Ativan PRN given for agitation due to patient fighting the vent. Isolation precautions in place. On cooling blanket. Safety precautions in place; DATA CONTROL CLERK restraints on for safety and prevent from pulling on tubes and lines. ROM and skin assessed. Bed low, locked and alarm is on. Will continue plan of care.
--- NOTE | 2020-07-22 22:00 | NUR ---
NURSE NOTES: Patient is resting comfortably. No changes in condition. BP:106/72, HR:103, O2sat:97%.
[2020-07-23] VITALS (47 sets, daily range): BP systolic 57–164; BP diastolic 41–91
--- NOTE | 2020-07-23 | NUR ---
NURSE NOTES: Suctioning provided. NGT feeding with no residuals; flushed and patent. Repositioned.
[2020-07-23] MEDS: Midodrine 10mg tab ORAL SCH ×3 (00:25→18:20)
[2020-07-23] MEDS: LORazepam Inj 2mg/ml 1ml IV PRN ×3 (01:21→19:20)
--- NOTE | 2020-07-23 02:00 | NUR ---
NURSE NOTES: PRN ativan given for agitation. Bed bath given, linens changed, repositioned, suctioning and oral car done.
[2020-07-23] MEDS: Meropenem 1gm/NS 55ml IVPB SCH ×6 (03:08→19:49)
--- NOTE | 2020-07-23 03:44 | NUR ---
NURSE NOTES: BP:76/52, levophed resumed @ 2mcgs for hypotension.
[2020-07-23] MEDS: NovoLOG Insulin Flexpen SUBQ SCH ×4 (05:29→18:00)
--- NOTE | 2020-07-23 05:30 | NUR ---
NURSE NOTES: Levophed turned off BP:121/69. Will monitor.
[2020-07-23 05:58] LABS: BASOPHILS % (AUTO) 0.8 % (0.0-2.0); EOSINOPHILS % (AUTO) 0.7 % (0.0-3.0); HEMATOCRIT 29.2 % (42.0-52.0); LYMPHOCYTES % (AUTO) 16.9 % (20.0-45.0); MEAN CORPUSCULAR VOLUME 98 FL (80-99); MONOCYTES % (AUTO) 5.7 % (1.0-10.0); PLATELET COUNT 462 K/UL (150-450); RED BLOOD COUNT 2.99 M/UL (4.70-6.10); RED CELL DISTRIBUTION WIDTH 16.2 % (11.6-14.8); WHITE BLOOD COUNT 10.8 K/UL (4.8-10.8)
--- NOTE | 2020-07-23 06:00 | NUR ---
NURSE NOTES: Suctioning and oral care provided. BP:116/76 off levophed.
[2020-07-23 06:14] LABS: ANION GAP 7 mmol/L (5-15); BLOOD UREA NITROGEN 19 mg/dL (7-18); CALCIUM 8.4 MG/DL (8.5-10.1); CARBON DIOXIDE 28 MMOL/L (21-32); CHLORIDE 107 MMOL/L (98-107); POTASSIUM 3.8 MMOL/L (3.5-5.1); SODIUM 141 MMOL/L (136-145)
--- NOTE | 2020-07-23 07:12 | NUR ---
NURSE HAND-OFF REPORT: Latest Vital Signs: Temperature 99.4 , Pulse 103 , B/P 115 /68 , Respiratory Rate 18 , O2 SAT 100 , Mechanical Ventilator, O2 Flow Rate . Vital Sign Comment: Stable EKG Rhythm: Sinus Tachycardia Rhythm change?: N Notified?: Grecia Matt MD Response: Latest Gonzalez Fall Score: 70 Fall Risk: High Risk Safety Measures: Call light Within Reach, Bed Alarm Zone 1, Side Rails Side Rails x3, Bed position Low and Locked. Fall Precautions: Yellow Socks Yellow Gown Door Sign Patient Fall Education Report given to .
--- NOTE | 2020-07-23 07:30 | NUR ---
NURSE NOTES: Pt was assessed after receiving change of shift report from Matilde TANNER. Pt opens eyes to touch, unable to follow commands. Orally intubated, ETT 7.5 at 25cm right lipline, with vent settings AC14, VT600, FIO2 35%, Peep 0, at 100% O2Sat, with bilateral rhonchi noted on auscultation. NSR on color television console monitor, while Levophed drip currently remains on hold. Central line access present on right UA, double lumen PICC line, patent/intact with dry/clear dressing. 0.45%NS is infusing at 50ml/hour. Temp 98.9F rectal. Right nare NGT with feeding Glucerna 1.2 infusing at 60ml/hour, residual 5ml. Wiley catheter is noted, draining clear/yellow urine. Skin alterations, including bilateral buttocks stage II, bilateral heels redness noted. Pt is on pressure release mattress. HOB at 30degrees, bed locked, three side rails up, and call light is within reach. Will continue with plan of care.
--- NOTE | 2020-07-23 08:00 | NUR ---
NURSE NOTES: Levophed drip was resumed at rate of 2mcg/min to maintain SBP above 90, since BP dropped to 72/47.
[2020-07-23] MEDS: Heparin 5000 units/ml inj SUBQ SCH ×2 (08:32→20:23)
[2020-07-23] MEDS: Pantoprazole Inj IV SCH (08:33)
[2020-07-23] MEDS: Tamsulosin 0.4mg cap ORAL SCH ×2 (08:33→18:20)
--- NOTE | 2020-07-23 08:33 | Nephrology Progress Note ---
Assessment/Plan Problem List: (1) Dehydration (2) MELANIE (acute kidney injury) (3) Renal failure (ARF), acute on chronic (4) Hypoxia (5) Acute encephalopathy (6) Electrolyte imbalance Assessment 79-year-old male is admitted with acute hypoxic respiratory failure most likely secondary to pneumonia and sepsis, UTI. Acute on chronic renal failure Dehydration Electrolyte imbalances, hypernatremia Hypoalbuminemia Diabetes type 2 History of congestive heart failure Hypertension Hyperlipemia Alzheimer's Previous COVID-19 infection in May 2020 Plan July 23: Seen in ICU. Discussed with RN Holly. Blood pressure remains a little requiring pressors. Labs reviewed. Stable renal parameters. Continue per consultants. July 22: Remains intubated. Full code. Blood pressure borderline low. Will increase midodrine dose. Discussed with RN. Continue to monitor renal parameters and electrolytes. July 21: Intubated. Full code. Labs reviewed. Stable from renal standpoint of view. Continue per consultants. July 20: Remains intubated. Full code. Labs reviewed. Electrolytes within normal limit. Continue per consultants. July 19: In ICU. Remains intubated on ventilator. Remains full code. Low potassium addressed. Blood pressure fluctuating. Continue per consultants. July 18: Patient in ICU. Intubated on ventilator. On 6 mics of Levophed. Will give 100 cc albumin 25%. K-Phos IV ordered. Continue per consultants. Continue monitor renal parameters and electrolytes. July 17: Status unchanged. Transfer to [facility] for seizure. Stable from renal standpoint to view. Continue per consultants. July 16: Status quo. Labs reviewed. Renal parameters stable. Continue per consultants. July 15: On nonrebreather mask. Labs reviewed. Renal parameters stable.Continue per automatic nailing machine feeder. Clinically unchanged. July 14: On nonrebreather mask. Inflammatory markers gradually declining. Renal parameters stable. Continue per pulmonary. July 13: Remains on nonrebreather mask. Inflammatory markers remain elevated. Renal parameters somewhat stable. Continue per pulmonary and ID. Remains full code. July 12: Patient on nonrebreather mask. Labs noted. Serum creatinine down to 1.3. Continue per consultants. July 11: Patient on nonrebreather mask. Transfer to telemetry when seen this morning. Labs noted. Continue per consultants. Serum creatinine erin to 1.7. Continue to monitor renal parameters. Continue to monitor vancomycin level July 10: Patient is not doing well clinically. Mild respiratory distress. ABG noted. Somewhat hypoxic. CBC and chemistry panel ordered. Discussed with FLORES Cho. Will defer to pulmonary management to specialist. Continue per ID. Renal parameters remained stable as of July 09. July 09: Labs reviewed. Renal parameters stable. Continue per consultants. July 08: Labs reviewed. Potassium via NG tube ordered. IV fluids stopped. Continue per consultants. July 07: Labs reviewed. Low potassium and low phosphorus replaced. Continue per consultants. Remains stable from renal standpoint of view. July 06: Patient remains n.p.o. IV fluid down to 50 cc an hour. Potassium supplement intravenously ordered. Continue per consultants. Previously: Patient is n.p.o., will continue on IV fluid of D5W 75 cc an hour We will monitor electrolytes and renal parameters Avoid nephrotoxic's Start p.o. when he clears by speech therapist, meanwhile aspiration precautions Keep the blood pressure and blood sugar in check Per orders Subjective ROS Limited/Unobtainable: Yes Objective Objective Last 24 Hour Vital Signs Date Time Temp Pulse Resp B/P (MAP) Pulse Ox O2 Delivery O2 Flow Rate FiO2 07/23/20 07:28 101 16 35 07/23/20 07:00 103 18 115/68 (84) 07/23/20 06:30 106 19 07/23/20 06:00 106 22 116/76 (89) 100 07/23/20 05:00 94 19 121/69 (86) 100 07/23/20 04:30 94 17 104/61 (75) 100 07/23/20 04:00 35 07/23/20 04:00 Mechanical Ventilator 07/23/20 04:00 99.4 95 14 89/60 (70) 99 07/23/20 03:05 96 13 102/65 (77) 97 07/23/20 03:00 98 07/23/20 03:00 97 14 77/52 (60) 95 07/23/20 02:42 99 15 35 07/23/20 02:00 108 17 91/61 (71) 97 07/23/20 01:51 109 18 167/73 100 07/23/20 01:21 114 20 164/84 99 07/23/20 01:00 114 24 164/84 (110) 99 07/23/20 00:00 Mechanical Ventilator 07/23/20 00:00 99.3 105 22 136/78 (97) 100 07/22/20 23:09 101 07/22/20 23:08 102 15 96/55 (69) 98 07/22/20 23:00 103 14 82/56 (65) 98 07/22/20 22:45 103 14 35 07/22/20 22:00 105 17 106/72 (83) 98 07/22/20 21:00 121 25 162/93 (116) 07/22/20 20:13 106 18 176/89 99 07/22/20 20:00 99.3 105 22 131/75 (93) 100 07/22/20 20:00 35 07/22/20 20:00 Mechanical Ventilator 07/22/20 19:43 105 20 153/78 98 07/22/20 19:29 102 07/22/20 19:00 97 17 127/67 (87) 99 07/22/20 18:55 96 19 35 07/22/20 18:00 101 15 90/62 (71) 97 07/22/20 17:00 110 24 142/77 (98) 98 07/22/20 16:35 107 22 100 Mechanical Ventilator 35 07/22/20 16:00 97 07/22/20 16:00 98.0 110 25 148/71 (96) 07/22/20 16:00 35 07/22/20 16:00 Mechanical Ventilator 07/22/20 15:29 107 22 35 07/22/20 15:00 102 22 138/72 (94) 100 07/22/20 14:00 102 19 102/57 (72) 99 07/22/20 13:30 97 16 116/74 (88) 98 07/22/20 13:00 103 16 90/53 (65) 95 07/22/20 12:50 86/57 07/22/20 12:00 105 07/22/20 12:00 96.8 103 21 108/67 (81) 96 07/22/20 12:00 Mechanical Ventilator 07/22/20 12:00 35 07/22/20 11:13 110 22 35 07/22/20 11:00 105 23 147/79 (101) 98 07/22/20 10:00 96 23 132/70 (90) 96 07/22/20 09:00 88 15 90/53 (65) 98 Intake and Output 11/11/20 11/12/20 19:00 07:00 Intake Total 1263.75 ml 1384.375 ml Output Total 1935 ml 970 ml Balance -671.25 ml 414.375 ml Free Water 60 ml IV Total 483.75 ml 724.375 ml Tube Feeding 720 ml 660 ml Output Urine Total 1935 ml 970 ml Laboratory Tests 07/23/20 00:21: POC Whole Blood Glucose [Pending] 07/23/20 05:00: White Blood Count 10.8, Red Blood Count 2.99L, Hemoglobin 9.0L, Hematocrit 29.2L , Mean Corpuscular Volume 98, Mean Corpuscular Hemoglobin 30.1, Mean Corpuscular Hemoglobin Concent 30.7L, Red Cell Distribution Width 16.2H, Platelet Count 462H, Mean Platelet Volume 8.1, Neutrophils (%) (Auto) 76.0H, Lymphocytes (%) (Auto) 16.9L, Monocytes (%) (Auto) 5.7, Eosinophils (%) (Auto) 0.7, Basophils (%) (Auto) 0.8, Sodium Level 141, Potassium Level 3.8, Chloride Level 107, Carbon Dioxide Level 28, Anion Gap 7, Blood Urea Nitrogen 19H, Creatinine 1.0, Estimat Glomerular Filtration Rate > 60, Glucose Level 131H, Calcium Level 8.4L 07/23/20 05:24: POC Whole Blood Glucose [Pending] Height (Feet): 5 Height (Inches): 4.00 Weight (Pounds): 130 General Appearance: no apparent distress EENT: other - Intubated on ventilator Cardiovascular: tachycardia Respiratory/Chest: decreased breath sounds Abdomen: distended Tino Connors MD Jul 23, 2020 08:33
--- NOTE | 2020-07-23 09:00 | NUR ---
NURSE NOTES: Levophed drip is now placed back on hold, VS within normal range. SBP now 123. AM meds were administered. Pt remains on cooling blanket to control body temps.
--- NOTE | 2020-07-23 10:29 | Pulmonolgy Critical Care Note ---
Critical Care - Asmt/Plan Problems: (1) Acute respiratory failure (2) Multifocal pneumonia (3) 2019 novel coronavirus disease (COVID-19) (4) Acute encephalopathy (5) Severe sepsis (6) Alzheimer's dementia (7) HTN (hypertension) (8) History of CVA (cerebrovascular accident) (9) BPH (benign prostatic hyperplasia) Assessment/Plan: on and off Levophed Respiratory: adjust FIO2, CXR Cardiac: continue pressors Renal: F/U I&O, keep IV fluid, check electrolytes Infectious Disease: check cultures Gastrointestinal: continue feedings/current rate Endocrine: monitor blood sugar, continue sliding scale insulin Hematologic: transfuse if hgb<8.5 Neurologic: PRN Ativan, keep patient comfortable Affect: PRN ativan Prophylaxis: Protonix Time Spent (Minutes): 40 Notes Reviewed: informatics coordinator, cardio, renal Discussed with: nurses, consultants, correctional counselor/case managermanager product support - Objective Last 24 Hour Vital Signs Date Time Temp Pulse Resp B/P (MAP) Pulse Ox O2 Delivery O2 Flow Rate FiO2 07/23/20 10:00 92 14 127/63 (84) 100 07/23/20 09:00 95 17 123/66 (85) 100 07/23/20 08:30 89 16 112/64 (80) 100 07/23/20 08:07 101 16 93/57 (69) 99 07/23/20 08:02 102 15 75/50 (58) 98 07/23/20 08:01 102 15 64/48 (53) 98 07/23/20 08:00 35 07/23/20 08:00 98.8 102 16 72/47 (55) 98 07/23/20 08:00 Mechanical Ventilator 07/23/20 08:00 100 07/23/20 07:28 101 16 35 07/23/20 07:00 103 18 115/68 (84) 07/23/20 06:30 106 19 07/23/20 06:00 106 22 116/76 (89) 100 07/23/20 05:00 94 19 121/69 (86) 100 07/23/20 04:30 94 17 104/61 (75) 100 07/23/20 04:00 35 07/23/20 04:00 Mechanical Ventilator 07/23/20 04:00 99.4 95 14 89/60 (70) 99 07/23/20 03:05 96 13 102/65 (77) 97 07/23/20 03:00 98 07/23/20 03:00 97 14 77/52 (60) 95 07/23/20 02:42 99 15 35 07/23/20 02:00 108 17 91/61 (71) 97 07/23/20 01:51 109 18 167/73 100 07/23/20 01:21 114 20 164/84 99 07/23/20 01:00 114 24 164/84 (110) 99 07/23/20 00:00 Mechanical Ventilator 07/23/20 00:00 99.3 105 22 136/78 (97) 100 07/22/20 23:09 101 07/22/20 23:08 102 15 96/55 (69) 98 07/22/20 23:00 103 14 82/56 (65) 98 07/22/20 22:45 103 14 35 07/22/20 22:00 105 17 106/72 (83) 98 07/22/20 21:00 121 25 162/93 (116) 07/22/20 20:13 106 18 176/89 99 07/22/20 20:00 99.3 105 22 131/75 (93) 100 07/22/20 20:00 35 07/22/20 20:00 Mechanical Ventilator 07/22/20 19:43 105 20 153/78 98 07/22/20 19:29 102 07/22/20 19:00 97 17 127/67 (87) 99 07/22/20 18:55 96 19 35 07/22/20 18:00 101 15 90/62 (71) 97 07/22/20 17:00 110 24 142/77 (98) 98 07/22/20 16:35 107 22 100 Mechanical Ventilator 35 07/22/20 16:00 97 07/22/20 16:00 98.0 110 25 148/71 (96) 07/22/20 16:00 35 07/22/20 16:00 Mechanical Ventilator 07/22/20 15:29 107 22 35 07/22/20 15:00 102 22 138/72 (94) 100 07/22/20 14:00 102 19 102/57 (72) 99 07/22/20 13:30 97 16 116/74 (88) 98 07/22/20 13:00 103 16 90/53 (65) 95 07/22/20 12:50 86/57 07/22/20 12:00 105 07/22/20 12:00 96.8 103 21 108/67 (81) 96 07/22/20 12:00 Mechanical Ventilator 07/22/20 12:00 35 07/22/20 11:13 110 22 35 07/22/20 11:00 105 23 147/79 (101) 98 Status: sedated Condition: critical HEENT: atraumatic Neck: full ROM Lungs: clear Heart: HR/BP stable Abdomen: soft Extremities: no C/C/E Accucheck: 131 Critical Care - Subjective ROS Limited/Unobtainable: Yes Condition: critical EKG Rhythm: Sinus Rhythm FI02: 35 Vent Support Breath Rate: 14 Vent Support Mode: AC Vent Tidal Volume: 600 Sputum Amount: Moderate PEEP: 0.0 PIP: 40 Tube Feeding Amount: 60 I&O: Intake and Output 07/22/20 07/23/20 19:00 07:00 Intake Total 1263.75 ml 1384.375 ml Output Total 1935 ml 970 ml Balance -671.25 ml 414.375 ml Free Water 60 ml IV Total 483.75 ml 724.375 ml Tube Feeding 720 ml 660 ml Output Urine Total 1935 ml 970 ml CXR: no change ET-Tube: 7.5 ET Position: 25 Labs: Laboratory Tests Test 07/23/20 00:21 07/23/20 05:00 07/23/20 05:24 POC Whole Blood Glucose Pending Pending White Blood Count 10.8 K/UL (4.8-10.8) Red Blood Count 2.99 M/UL (4.70-6.10) L Hemoglobin 9.0 G/DL (14.2-18.0) L Hematocrit 29.2 % (42.0-52.0) L Mean Corpuscular Volume 98 FL (80-99) Mean Corpuscular Hemoglobin 30.1 PG (27.0-31.0) Mean Corpuscular Hemoglobin Concent 30.7 G/DL (32.0-36.0) L Red Cell Distribution Width 16.2 % (11.6-14.8) H Platelet Count 462 K/UL (150-450) H Mean Platelet Volume 8.1 FL (6.5-10.1) Neutrophils (%) (Auto) 76.0 % (45.0-75.0) H Lymphocytes (%) (Auto) 16.9 % (20.0-45.0) L Monocytes (%) (Auto) 5.7 % (1.0-10.0) Eosinophils (%) (Auto) 0.7 % (0.0-3.0) Basophils (%) (Auto) 0.8 % (0.0-2.0) Sodium Level 141 MMOL/L (136-145) Potassium Level 3.8 MMOL/L (3.5-5.1) Chloride Level 107 MMOL/L (98-107) Carbon Dioxide Level 28 MMOL/L (21-32) Anion Gap 7 mmol/L (5-15) Blood Urea Nitrogen 19 mg/dL (7-18) H Creatinine 1.0 MG/DL (0.55-1.30) Estimat Glomerular Filtration Rate > 60 mL/min (>60) Glucose Level 131 MG/DL (74-106) H Calcium Level 8.4 MG/DL (8.5-10.1) L Kya Carreno MD Jul 23, 2020 10:29
--- NOTE | 2020-07-23 10:34 | NUR ---
NURSE NOTES: Pt was administered Ativan 2mg IVP for anxiety per PRN order and Morphine 4mg IVP for severe pain per PRN order. Pt is noted to be very restless, biting on the ET tube, with facial grimacing, and attempting to pull out IV lines. Bilateral soft wrist restraints remain on pt with skin/vascular integrity at restraint with within normal limits.
--- NOTE | 2020-07-23 10:42 | NUR ---
SPEECH PATHOLOGY/DISCHARGE SUMMARY NOTE: UNFORTUNATELY, THIS PATIENT WAS ADMITTED 20 DAYS AGO AND IN THE COURSE OF HIS STAY HE TESTED POSITIVE FOR COVID (EARLIER DX OF COVID IN 2019), AND HAS SINCE UNDERGONE INTUBATION AND IS RECEIVING NON/ORAL FEEDING MANAGEMENT VIA NG TUBE. CURRENTLY HE IS ON VENT SUPPORT AND WEANING IS CONTRAINDICATED IN PART AT THIS TIME DUE TO HYPOTENSION. FURTHER SKILLED ST SERVICES ARE NOT INDICATED AT THIS TIME WHILE THE PATIENT IS IN PULMONARY DECLINE. HE IS HIGH RISK FOR RECURRING ASPIRATION PNEUMONIA, P.O. INTAKE/TRIALS ARE NOT ADVISABLE. D/W DR. BAEZ, RN CONNIE. DATE OF ADMISSION: 07/03/2020 CHIEF COMPLAINT: Shortness of breath. HISTORY OF PRESENT ILLNESS: This is a 79-year-old gentleman with past medical history significant for recent COVID-19 pneumonia on 05/21/2020, history of heart failure, diabetes type 2, chronic kidney disease, stage 2, pneumonia, dyslipidemia, dysphagia, dementia, hypocalcemia, Alzheimer, who presented to the hospital from nursing facility after he was noted to have worsening of shortness of breath and chest congestion. The patient has diminished oxygen saturation at the nursing facility noted to have a fever of 100.9 and required oxygen. Shortly after initial evaluation in the nursing facility, the patient was transferred to the hospital. Upon arrival to the emergency department, the patient was noted to be altered than usual and severe shortness of breath. Subsequently, the patient was admitted to PCU with sepsis secondary to urinary tract infection as well as multifocal pneumonia and severe hypernatremia, acute kidney injury and chronic renal insufficiency. Critical Care - Asmt/Plan Problems: (1) Acute respiratory failure (2) Multifocal pneumonia (3) 2019 novel coronavirus disease (COVID-19) (4) Acute encephalopathy (5) Severe sepsis (6) Alzheimer's dementia (7) HTN (hypertension) (8) History of CVA (cerebrovascular accident) (9) BPH (benign prostatic hyperplasia) Respiratory: monitor respiratory rate, adjust FIO2, CXR ASSESSMENT: 1. Acute hypoxemic respiratory failure, most likely secondary to pneumonia and sepsis. 2. Sepsis secondary to urinary tract infection and pneumonia. 3. Possible aspiration pneumonia. 4. Acute kidney injury on chronic renal insufficiency. 5. Dehydration. 6. History of chronic congestive heart failure. 7. Diabetes type 2. 8. Dyslipidemia. 9. Hypertension. 10. Alzheimer's disease. 11. History of COVID-19 infection in May 2020.
--- NOTE | 2020-07-23 10:47 | Cardiac Electrophysiology PN ---
Assessment/Plan Assessment/Plan 1. Accelerated junctional rhythm. Not bradycardic. Ruled out for CT Echo showed ejection fraction of 55%. 2. Long run of 31 beats of Nonsustained VT on 07/14/2020. Will need cardiac cath after stabilization. 3. Respiratory failure, on antibiotic and intubated on the vent Being weaned 4. Septic shock. Off Levophed since this am again.On Midodrine 10 tid 5. Acute renal failure.Resolved Cr 0.9 6. History of previous COVID infection in May 2020 and active Covid now in isolation 7. Dementia. DW RN Subjective Subjective In SR in NAD in Covid isolation. In ICU on the Vent with 35% Fio2. Had 31 beats of VT on 07/14/20 at 16:46 and 5 beats 07/19/20 No VT overnight. S/P PICC line Was hypotensive for 3 hours last night and was on Levophed. Off Levo again this am Objective Last 24 Hour Vital Signs Date Time Temp Pulse Resp B/P (MAP) Pulse Ox O2 Delivery O2 Flow Rate FiO2 07/23/20 10:33 92 14 127/63 100 07/23/20 10:00 92 14 127/63 (84) 100 07/23/20 09:00 95 17 123/66 (85) 100 07/23/20 08:30 89 16 112/64 (80) 100 07/23/20 08:07 101 16 93/57 (69) 99 07/23/20 08:02 102 15 75/50 (58) 98 07/23/20 08:01 102 15 64/48 (53) 98 07/23/20 08:00 35 07/23/20 08:00 98.8 102 16 72/47 (55) 98 07/23/20 08:00 Mechanical Ventilator 07/23/20 08:00 100 07/23/20 07:28 101 16 35 07/23/20 07:00 103 18 115/68 (84) 07/23/20 06:30 106 19 07/23/20 06:00 106 22 116/76 (89) 100 07/23/20 05:00 94 19 121/69 (86) 100 07/23/20 04:30 94 17 104/61 (75) 100 07/23/20 04:00 35 07/23/20 04:00 Mechanical Ventilator 07/23/20 04:00 99.4 95 14 89/60 (70) 99 07/23/20 03:05 96 13 102/65 (77) 97 07/23/20 03:00 98 07/23/20 03:00 97 14 77/52 (60) 95 07/23/20 02:42 99 15 35 07/23/20 02:00 108 17 91/61 (71) 97 07/23/20 01:51 109 18 167/73 100 07/23/20 01:21 114 20 164/84 99 07/23/20 01:00 114 24 164/84 (110) 99 07/23/20 00:00 Mechanical Ventilator 07/23/20 00:00 99.3 105 22 136/78 (97) 100 07/22/20 23:09 101 07/22/20 23:08 102 15 96/55 (69) 98 07/22/20 23:00 103 14 82/56 (65) 98 07/22/20 22:45 103 14 35 07/22/20 22:00 105 17 106/72 (83) 98 07/22/20 21:00 121 25 162/93 (116) 07/22/20 20:13 106 18 176/89 99 07/22/20 20:00 99.3 105 22 131/75 (93) 100 07/22/20 20:00 35 07/22/20 20:00 Mechanical Ventilator 07/22/20 19:43 105 20 153/78 98 07/22/20 19:29 102 07/22/20 19:00 97 17 127/67 (87) 99 07/22/20 18:55 96 19 35 07/22/20 18:00 101 15 90/62 (71) 97 07/22/20 17:00 110 24 142/77 (98) 98 07/22/20 16:35 107 22 100 Mechanical Ventilator 35 07/22/20 16:00 97 07/22/20 16:00 98.0 110 25 148/71 (96) 07/22/20 16:00 35 07/22/20 16:00 Mechanical Ventilator 07/22/20 15:29 107 22 35 07/22/20 15:00 102 22 138/72 (94) 100 07/22/20 14:00 102 19 102/57 (72) 99 07/22/20 13:30 97 16 116/74 (88) 98 07/22/20 13:00 103 16 90/53 (65) 95 07/22/20 12:50 86/57 07/22/20 12:00 105 07/22/20 12:00 96.8 103 21 108/67 (81) 96 07/22/20 12:00 Mechanical Ventilator 07/22/20 12:00 35 07/22/20 11:13 110 22 35 07/22/20 11:00 105 23 147/79 (101) 98 Intake and Output 07/22/20 07/23/20 19:00 07:00 Intake Total 1263.75 ml 1384.375 ml Output Total 1935 ml 970 ml Balance -671.25 ml 414.375 ml Free Water 60 ml IV Total 483.75 ml 724.375 ml Tube Feeding 720 ml 660 ml Output Urine Total 1935 ml 970 ml Laboratory Tests Test 07/23/20 00:21 07/23/20 05:00 07/23/20 05:24 POC Whole Blood Glucose Pending Pending White Blood Count 10.8 K/UL (4.8-10.8) Red Blood Count 2.99 M/UL (4.70-6.10) L Hemoglobin 9.0 G/DL (14.2-18.0) L Hematocrit 29.2 % (42.0-52.0) L Mean Corpuscular Volume 98 FL (80-99) Mean Corpuscular Hemoglobin 30.1 PG (27.0-31.0) Mean Corpuscular Hemoglobin Concent 30.7 G/DL (32.0-36.0) L Red Cell Distribution Width 16.2 % (11.6-14.8) H Platelet Count 462 K/UL (150-450) H Mean Platelet Volume 8.1 FL (6.5-10.1) Neutrophils (%) (Auto) 76.0 % (45.0-75.0) H Lymphocytes (%) (Auto) 16.9 % (20.0-45.0) L Monocytes (%) (Auto) 5.7 % (1.0-10.0) Eosinophils (%) (Auto) 0.7 % (0.0-3.0) Basophils (%) (Auto) 0.8 % (0.0-2.0) Sodium Level 141 MMOL/L (136-145) Potassium Level 3.8 MMOL/L (3.5-5.1) Chloride Level 107 MMOL/L (98-107) Carbon Dioxide Level 28 MMOL/L (21-32) Anion Gap 7 mmol/L (5-15) Blood Urea Nitrogen 19 mg/dL (7-18) H Creatinine 1.0 MG/DL (0.55-1.30) Estimat Glomerular Filtration Rate > 60 mL/min (>60) Glucose Level 131 MG/DL (74-106) H Calcium Level 8.4 MG/DL (8.5-10.1) L Objective HEAD AND NECK: No JVD. Orally intubated LUNGS: Coarse rhonchi. CARDIOVASCULAR: Irregular S1 and S2 with no gallop. ABDOMEN: Soft. EXTREMITIES: No pitting edema. Klever Matt MD Jul 23, 2020 10:47
--- NOTE | 2020-07-23 11:00 | NUR ---
NURSE NOTES: Bilateral soft wrist restraints were DC'd. Pt is calm. VS remain stable.
--- NOTE | 2020-07-23 11:13 | Infectious Diseases Prog Note ---
Assessment/Plan 79yo M with: SEptic Shock- SP Fever,r ecurrent, low grade; improving Leukocytosis ;recurrent ; increased; -SP Acute hypoxic resp failure, on NRB mask> 4l NC; back on NRB, desaturation 07/09 > intubated 07/17 Pneumonia- >HAP hx of COVID19 PNA 05/20/20 --07/21 CXR: Bilateral infiltrates in a peribronchovascular distr ibution are unchanged. Left pleural effusion is unchanged. --07/19 CXR: Persistent bilateral patchy pulmonary opacities, most prominent in the left lower lung. --07/18 ucx neg sp cx MRSA (colonizer at this point) Bcx NTD --07/13 Bcx Neg 07/10 Sp cx MRSA (Vancomycin APOLONIA 1), ESBL E.coli 07/03 BCx NTD UA WBC, UCx Neg 07/03 COVID rapid neg; 07/06 rapid COVID PCR + (from prior infection)- not new infection Flu A/B neg CXR: L pna Resp cx MRSA Denis on CKD, improving SNF resident ([facility]) Non-verbal VRE and MRSA colonized Plan: Meropenem #07/25 for ESBL PNA -07/21 SP Micafungin #4 -07/17 SP IV Vancomycin #15 -07/13 SP Zosyn #4 -07/06 SP Cefepime # -07/04 SP Flagyl # Monitor CBC/CMP Monitor resp status Monitor temp curve and hemodynamics repeat cultures D/w RN Thank you for this consult. [facility] will continue to follow. Subjective Allergies: Coded Allergies: No Known Allergies (Unverified , 04/30/12) afebrile in ~36hrs off pressors no leukocytosis Fio2 35% Objective Last 24 Hour Vital Signs Date Time Temp Pulse Resp B/P (MAP) Pulse Ox O2 Delivery O2 Flow Rate FiO2 07/23/20 10:33 92 14 127/63 100 07/23/20 10:00 92 14 127/63 (84) 100 07/23/20 09:00 95 17 123/66 (85) 100 07/23/20 08:30 89 16 112/64 (80) 100 07/23/20 08:07 101 16 93/57 (69) 99 07/23/20 08:02 102 15 75/50 (58) 98 07/23/20 08:01 102 15 64/48 (53) 98 07/23/20 08:00 35 07/23/20 08:00 98.8 102 16 72/47 (55) 98 07/23/20 08:00 Mechanical Ventilator 07/23/20 08:00 100 07/23/20 07:28 101 16 35 07/23/20 07:00 103 18 115/68 (84) 07/23/20 06:30 106 19 07/23/20 06:00 106 22 116/76 (89) 100 07/23/20 05:00 94 19 121/69 (86) 100 07/23/20 04:30 94 17 104/61 (75) 100 07/23/20 04:00 35 07/23/20 04:00 Mechanical Ventilator 07/23/20 04:00 99.4 95 14 89/60 (70) 99 07/23/20 03:05 96 13 102/65 (77) 97 07/23/20 03:00 98 07/23/20 03:00 97 14 77/52 (60) 95 07/23/20 02:42 99 15 35 07/23/20 02:00 108 17 91/61 (71) 97 07/23/20 01:51 109 18 167/73 100 07/23/20 01:21 114 20 164/84 99 07/23/20 01:00 114 24 164/84 (110) 99 07/23/20 00:00 Mechanical Ventilator 07/23/20 00:00 99.3 105 22 136/78 (97) 100 07/22/20 23:09 101 07/22/20 23:08 102 15 96/55 (69) 98 07/22/20 23:00 103 14 82/56 (65) 98 07/22/20 22:45 103 14 35 07/22/20 22:00 105 17 106/72 (83) 98 07/22/20 21:00 121 25 162/93 (116) 07/22/20 20:13 106 18 176/89 99 07/22/20 20:00 99.3 105 22 131/75 (93) 100 07/22/20 20:00 35 07/22/20 20:00 Mechanical Ventilator 07/22/20 19:43 105 20 153/78 98 07/22/20 19:29 102 07/22/20 19:00 97 17 127/67 (87) 99 07/22/20 18:55 96 19 35 07/22/20 18:00 101 15 90/62 (71) 97 07/22/20 17:00 110 24 142/77 (98) 98 07/22/20 16:35 107 22 100 Mechanical Ventilator 35 07/22/20 16:00 97 07/22/20 16:00 98.0 110 25 148/71 (96) 07/22/20 16:00 35 07/22/20 16:00 Mechanical Ventilator 07/22/20 15:29 107 22 35 07/22/20 15:00 102 22 138/72 (94) 100 07/22/20 14:00 102 19 102/57 (72) 99 07/22/20 13:30 97 16 116/74 (88) 98 07/22/20 13:00 103 16 90/53 (65) 95 07/22/20 12:50 86/57 07/22/20 12:00 105 07/22/20 12:00 96.8 103 21 108/67 (81) 96 07/22/20 12:00 Mechanical Ventilator 07/22/20 12:00 35 07/22/20 11:13 110 22 35 Height (Feet): 5 Height (Inches): 4.00 Weight (Pounds): 130 Gen: sedated, intubated CV: RRR Pulm: Rhonchi anteriorly Abd: Soft, NTND Ext: No c/c/e Laboratory Tests Test 07/23/20 00:21 07/23/20 05:00 07/23/20 05:24 POC Whole Blood Glucose Pending Pending White Blood Count 10.8 K/UL (4.8-10.8) Red Blood Count 2.99 M/UL (4.70-6.10) L Hemoglobin 9.0 G/DL (14.2-18.0) L Hematocrit 29.2 % (42.0-52.0) L Mean Corpuscular Volume 98 FL (80-99) Mean Corpuscular Hemoglobin 30.1 PG (27.0-31.0) Mean Corpuscular Hemoglobin Concent 30.7 G/DL (32.0-36.0) L Red Cell Distribution Width 16.2 % (11.6-14.8) H Platelet Count 462 K/UL (150-450) H Mean Platelet Volume 8.1 FL (6.5-10.1) Neutrophils (%) (Auto) 76.0 % (45.0-75.0) H Lymphocytes (%) (Auto) 16.9 % (20.0-45.0) L Monocytes (%) (Auto) 5.7 % (1.0-10.0) Eosinophils (%) (Auto) 0.7 % (0.0-3.0) Basophils (%) (Auto) 0.8 % (0.0-2.0) Sodium Level 141 MMOL/L (136-145) Potassium Level 3.8 MMOL/L (3.5-5.1) Chloride Level 107 MMOL/L (98-107) Carbon Dioxide Level 28 MMOL/L (21-32) Anion Gap 7 mmol/L (5-15) Blood Urea Nitrogen 19 mg/dL (7-18) H Creatinine 1.0 MG/DL (0.55-1.30) Estimat Glomerular Filtration Rate > 60 mL/min (>60) Glucose Level 131 MG/DL (74-106) H Calcium Level 8.4 MG/DL (8.5-10.1) L Current Medications Medications (Trade) Dose Ordered Sig/Ankush Route PRN Reason Start Time Stop Time Status Last Admin Dose Admin Acetaminophen (Tylenol) 650 mg Q4H PRN ORAL Temp >100.5 07/03/20 20:30 08/02/20 20:29 07/16/20 22:39 Chlorhexidine Gluconate (Darcy-Hex 2%) 1 applic DAILY@1999 TOPIC 07/17/20 20:00 10/15/20 19:59 07/22/20 19:43 Dextrose (Dextrose 50%) 50 ml Q30M PRN IV Hypoglycemia 07/03/20 22:45 10/01/20 22:44 Heparin Sodium (Porcine) (Heparin 5000 units/ml) 5,000 units EVERY 12 HOURS SUBQ 07/03/20 21:00 08/17/20 20:59 07/23/20 08:32 Insulin Aspart (NovoLOG) EVERY 6 HOURS SUBQ 07/13/20 06:00 10/02/20 06:29 07/22/20 13:21 Lorazepam (Ativan 2mg/ml 1ml) 2 mg Q4H PRN IV For Anxiety 07/21/20 13:45 07/28/20 13:44 07/23/20 10:33 Meropenem 1 gm/ Sodium Chloride 55 ml @ 110 mls/hr Q8HR@0400,1200,2000 IVPB 07/22/20 12:00 07/27/20 11:59 07/23/20 03:08 Midodrine (Pro-Amatine) 10 mg Q8H ORAL 07/22/20 17:00 10/20/20 16:59 07/23/20 08:32 Morphine Sulfate (Morphine Sulfate) 2 mg Q6H PRN IVP moderate pain 07/21/20 13:45 07/28/20 13:44 Morphine Sulfate (Morphine Sulfate) 4 mg Q4H PRN IVP severe pain 07/17/20 12:45 07/24/20 12:44 07/23/20 10:33 Nitroglycerin (Ntg) 0.4 mg Q5M PRN SL Prn Chest Pain 07/03/20 20:30 08/02/20 20:29 Norepinephrine Bitartrate 250 ml @ 0 mls/hr Q24H IV 07/20/20 15:45 07/23/20 15:44 07/22/20 12:50 Ondansetron HCl (Zofran) 4 mg Q6H PRN IVP Nausea & Vomiting 07/03/20 20:30 08/02/20 20:29 Pantoprazole (Protonix) 40 mg DAILY IV 07/18/20 09:00 08/17/20 08:59 07/23/20 08:33 Polyethylene Glycol (Miralax) 17 gm DAILYPRN PRN ORAL Constipation 07/03/20 20:30 08/02/20 20:29 Promethazine HCl/ Codeine (Phenergan with Codeine) 5 ml Q4H PRN ORAL For Cough 07/03/20 20:30 08/02/20 20:29 Sodium Chloride 1,000 ml @ 50 mls/hr Q20H IV 07/17/20 16:00 08/16/20 15:59 07/22/20 16:33 Tamsulosin HCl (Flomax) 0.4 mg BID ORAL 07/11/20 19:45 08/03/20 08:59 07/23/20 08:33 Ashley Cho M.D. Jul 23, 2020 11:13
--- NOTE | 2020-07-23 11:38 | NUR ---
NURSE NOTES: Pt was desaturating to 80%, ventilator kept alarming/ high peak pressure. RT at bedside, unable to suction via ET tube. Starting bagging the pt, however without success due to blockage and absence of chest rise. Pt desaturated to 20%, bardycardia to 20's, no pulse noted upon palpation and Doppler. Code ginger was called. Performed CPR according to ACLS protocol/guided; please see code sheet.
--- NOTE | 2020-07-23 11:48 | NUR ---
NURSE NOTES: ER MD at bedside. Achieved ROSC, ST on account adjuster. BP 131/42. STAT chest xray was ordered as per ER MD, Dr. Floyd. Charge nurse notified family.
[2020-07-23] MEDS: Norepinephrine 4mg/NS Premix 250 ML IV SCH ×2 (13:44→18:44)
--- NOTE | 2020-07-23 14:24 | Diagnostic Imaging Report ---
Indication: Post intubation, status post CODE BLUE Technique: One view of the chest Comparison: 07/21/2020 Findings: Satisfactory positions of endotracheal tube, orogastric tube, right arm PICC. There is subcutaneous emphysema of the left chest wall now present. There is suggestion of a small apical pneumothorax. There may be some rib fractures at the left lateral lower hemithorax. Bilateral infiltrates are unchanged. Impression: Satisfactory tracheal intubation. Other tubes and lines stable. Left chest wall subcutaneous emphysema. Suspect small apical pneumothorax. Probable left lower rib fractures
--- NOTE | 2020-07-23 14:30 | NUR ---
NURSE NOTES: Dr Carreno was notified regarding Code Blue episode and reported chest xray results. Received order for repeat chest xray for AM. Pt remains stable while maintained on Levophed drip at 20mcg/min to keep SBP above 90. O2SAt at 100% while on previous vent settings.
[2020-07-23] MEDS ORDERED: Norepinephrine 4mg/NS Premix 250 ML IV SCH (15:45)
--- NOTE | 2020-07-23 15:50 | Internal Med Progress Note ---
Subjective Physician Name Ahsan Hodges Attending Physician Ahsan Hodges MD Current Medications Medications (Trade) Dose Ordered Sig/Ankush Route PRN Reason Start Time Stop Time Status Last Admin Dose Admin Acetaminophen (Tylenol) 650 mg Q4H PRN ORAL Temp >100.5 07/03/20 20:30 08/02/20 20:29 07/16/20 22:39 Chlorhexidine Gluconate (Darcy-Hex 2%) 1 applic DAILY@1999 TOPIC 07/17/20 20:00 10/15/20 19:59 07/22/20 19:43 Dextrose (Dextrose 50%) 50 ml Q30M PRN IV Hypoglycemia 07/03/20 22:45 10/01/20 22:44 Heparin Sodium (Porcine) (Heparin 5000 units/ml) 5,000 units EVERY 12 HOURS SUBQ 07/03/20 21:00 08/17/20 20:59 07/23/20 08:32 Insulin Aspart (NovoLOG) EVERY 6 HOURS SUBQ 07/13/20 06:00 10/02/20 06:29 07/22/20 13:21 Lorazepam (Ativan 2mg/ml 1ml) 2 mg Q4H PRN IV For Anxiety 07/21/20 13:45 07/28/20 13:44 07/23/20 10:33 Meropenem 1 gm/ Sodium Chloride 55 ml @ 110 mls/hr Q8HR@0400,1200,1999 IVPB 07/22/20 12:00 07/27/20 11:59 07/23/20 13:28 Midodrine (Pro-Amatine) 10 mg Q8H ORAL 07/22/20 17:00 10/20/20 16:59 07/23/20 08:32 Morphine Sulfate (Morphine Sulfate) 2 mg Q6H PRN IVP moderate pain 07/21/20 13:45 07/28/20 13:44 Morphine Sulfate (Morphine Sulfate) 4 mg Q4H PRN IVP severe pain 07/17/20 12:45 07/24/20 12:44 07/23/20 10:33 Nitroglycerin (Ntg) 0.4 mg Q5M PRN SL Prn Chest Pain 07/03/20 20:30 08/02/20 20:29 Norepinephrine Bitartrate 250 ml @ 0 mls/hr Q24H IV 07/23/20 13:30 07/26/20 15:44 07/23/20 13:44 Ondansetron HCl (Zofran) 4 mg Q6H PRN IVP Nausea & Vomiting 07/03/20 20:30 08/02/20 20:29 Pantoprazole (Protonix) 40 mg DAILY IV 07/18/20 09:00 08/17/20 08:59 07/23/20 08:33 Polyethylene Glycol (Miralax) 17 gm DAILYPRN PRN ORAL Constipation 07/03/20 20:30 08/02/20 20:29 Promethazine HCl/ Codeine (Phenergan with Codeine) 5 ml Q4H PRN ORAL For Cough 07/03/20 20:30 08/02/20 20:29 Sodium Chloride 1,000 ml @ 50 mls/hr Q20H IV 07/17/20 16:00 08/16/20 15:59 07/23/20 12:50 Tamsulosin HCl (Flomax) 0.4 mg BID ORAL 07/11/20 19:45 08/03/20 08:59 07/23/20 08:33 Allergies: Coded Allergies: No Known Allergies (Unverified , 04/30/12) Subjective In ICU Isolation room, unresponsive, cannot follow command, Intubated on Ventilation, hypotensive, S/P code blue with chest compression, a lot of secretion, resume Levophed drip, WBC: 10.8, familyat bedside , Objective Last Vital Signs Date Time Temp Pulse Resp B/P (MAP) Pulse Ox O2 Delivery O2 Flow Rate FiO2 07/23/20 15:31 103 07/23/20 15:00 14 132/78 (96) 100 07/23/20 12:00 Mechanical Ventilator 07/23/20 12:00 97.7 07/23/20 12:00 35 07/17/20 12:00 15.0 Laboratory Tests Test 07/23/20 00:21 07/23/20 05:00 07/23/20 05:24 07/23/20 12:09 POC Whole Blood Glucose Pending Pending White Blood Count 10.8 K/UL (4.8-10.8) Red Blood Count 2.99 M/UL (4.70-6.10) L Hemoglobin 9.0 G/DL (14.2-18.0) L Hematocrit 29.2 % (42.0-52.0) L Mean Corpuscular Volume 98 FL (80-99) Mean Corpuscular Hemoglobin 30.1 PG (27.0-31.0) Mean Corpuscular Hemoglobin Concent 30.7 G/DL (32.0-36.0) L Red Cell Distribution Width 16.2 % (11.6-14.8) H Platelet Count 462 K/UL (150-450) H Mean Platelet Volume 8.1 FL (6.5-10.1) Neutrophils (%) (Auto) 76.0 % (45.0-75.0) H Lymphocytes (%) (Auto) 16.9 % (20.0-45.0) L Monocytes (%) (Auto) 5.7 % (1.0-10.0) Eosinophils (%) (Auto) 0.7 % (0.0-3.0) Basophils (%) (Auto) 0.8 % (0.0-2.0) Sodium Level 141 MMOL/L (136-145) Potassium Level 3.8 MMOL/L (3.5-5.1) Chloride Level 107 MMOL/L (98-107) Carbon Dioxide Level 28 MMOL/L (21-32) Anion Gap 7 mmol/L (5-15) Blood Urea Nitrogen 19 mg/dL (7-18) H Creatinine 1.0 MG/DL (0.55-1.30) Estimat Glomerular Filtration Rate > 60 mL/min (>60) Glucose Level 131 MG/DL (74-106) H Calcium Level 8.4 MG/DL (8.5-10.1) L Arterial Blood pH 7.276 (7.350-7.450) Arterial Blood Partial Pressure CO2 51.1 mmHg (35.0-45.0) H Arterial Blood Partial Pressure O2 61.6 mmHg (75.0-100.0) L Arterial Blood HCO3 23.3 mmol/L (22.0-26.0) Arterial Blood Oxygen Saturation 87.0 % (95-100) *L Arterial Blood Base Excess -3.6 (-2-2) L Richard Test Positive Intake and Output 07/22/20 07/23/20 19:00 07:00 Intake Total 1263.75 ml 1384.375 ml Output Total 1935 ml 970 ml Balance -671.25 ml 414.375 ml Free Water 60 ml IV Total 483.75 ml 724.375 ml Tube Feeding 720 ml 660 ml Output Urine Total 1935 ml 970 ml Objective GENERAL: unresponsive, intubated, chronically ill-appearing. HEAD AND NECK: Pupils are equal and reactive to light. Anicteric. ET tube, NGT. NECK: Supple. No JVD. LUNGS: Mechanical breath sound, Decreased air in bases, Coarse breath sound. HEART: S1, S2. Regular rhythm. Distant heart sounds. No murmur or gallop. ABDOMEN: Soft, nondistended, nontender. Positive bowel sounds. EXTREMITIES: No cyanosis, clubbing, or edema. NEUROLOGIC: Very limited secondary to the patient's status, cannot follow commands. Assessment/Plan Assessment/Plan 1. Acute hypoxemic respiratory failure, most likely secondary to pneumonia and sepsis --> Intubated (07/17/2020). 2. Septic shock secondary to urinary tract infection and pneumonia. 3. pneumonia=MRSA 4. Acute kidney injury on chronic renal insufficiency. 5. Dehydration. 6. History of chronic congestive heart failure. 7. Diabetes type 2. 8. Dyslipidemia. 9. Hypertension. 10. Alzheimer's disease. 11. COVID 19 previous positive PLAN: 1. in ICU 2. Dr. Carreno,=Pulmonary Critical Care 3. Dr. Cho = infection disease 4. Monitor labs and cultures 5. antibiotics = Meropenem 6. Code status is full code. 7. DVT prophylaxis is heparin subcutaneous. 8. Tube feeding @ Hold 9. On Levophed drip Discuss with family regarding code status and prognosis, still Full code. Ahsan Hodges MD Jul 23, 2020 15:50
--- NOTE | 2020-07-23 16:00 | NUR ---
NURSE NOTES: Pt remains stable while maintained on Levophed drip, rate titrated down to 14mcg/min to maintain SBP above 90. Pt is afebrile. O2Sat 100% with no respiratory distress.
--- NOTE | 2020-07-23 17:00 | NUR ---
RESPIRATORY THERAPY NOTES: Westley Fast in good condition.
--- NOTE | 2020-07-23 18:00 | NUR ---
NURSE NOTES: NGT feeding is currently being held due to recent Code Blue from earlier today. Accucheck finger glucose resulted 160. Novolog was held since feeding is on hold. Pt had BM, moderate, soft/pasty/brown. Pt was cleaned, gown/bed linens were changed after bed-bath was provided. Wound dressings were changed. Pt continues to have moderate to large amounts of thin/clearish/white secretions, and was suctioned. VS remain stable, while pt is maintained on Levophed drip, with current rate titrated down to 8 mcg/min.
--- NOTE | 2020-07-23 19:18 | NUR ---
NURSE HAND-OFF REPORT: Latest Vital Signs: Temperature 98.0 , Pulse 103 , B/P 112 /74 , Respiratory Rate 20 , O2 SAT 100 , Mechanical Ventilator, ETT 14, VT600, FIo2, Peep 0, O2Sat 100%. Vital Sign Comment: Pt remains on Levophed drip at 8mcg/min to maintain SBP above 90. EKG Rhythm: Sinus Tachycardia Rhythm change?: N Notified?: Grecia Rivera MD Response: Latest Gonzalez Fall Score: 70 Fall Risk: High Risk Safety Measures: Call light Within Reach, Bed Alarm Zone 1, Side Rails Side Rails x3, Bed position Low and Locked. Fall Precautions: Yellow Socks Yellow Gown Door Sign Patient Fall Education Report given to Matilde TANNER. Endorsed plan of care.
--- NOTE | 2020-07-23 19:24 | NUR ---
NURSE NOTES: Received patient from FLORES Barrera. Will continue plan of care.
--- NOTE | 2020-07-23 19:34 | NUR ---
NURSE NOTES: Received patient intubated; ETT 7.5 @ 25cm to the lipline to vent with settings of AC:14, TV:60, FiO2:100%, O2sat:100%. Right nare NGT in place but feeding held. Patient is post-code blue from earlier in the afternoon. Wiley catheter in place and draining. Right upper arm PICC running TKO and NS @ 50ml/hr and levophed @ 8mcgs/min. Ativan PRN given for agitation due to patient fighting the vent. Left message for Dr. Carreno for sedation; Ativan is not working. Isolation precautions in place. On cooling blanket. Safety precautions in place; Bed low, locked and alarm is on. Will continue plan of care.
[2020-07-23] MEDS ORDERED: Sodium Bicarbonate 8.4% 50ml Inj ONE (19:47)
[2020-07-23] MEDS: Dyna-Hex 2% Top Sol 2oz TOPIC SCH (19:48)
[2020-07-23] MEDS: Midazolam for drip 50 MG in NS 90 ML IV PRN ×2 (19:49→23:49)
--- NOTE | 2020-07-23 20:00 | NUR ---
NURSE NOTES: Versed drip started @ 1mg/hr. Will titrate per protocol to reach RASS - 2 lightly sedated.
--- NOTE | 2020-07-23 21:00 | NUR ---
NURSE NOTES: Patient son and daughter was here for visitation ans updates. Dr. Hodges was here to see and assess patient and spoke with family members of patient's prognosis. COVID PCR ordered to re-test. Versed titrated to 6mg/hr currently to reach a RASS score of -2; patient being lightly sedated. Dr. Hodges also made aware that feeding has been held.
--- NOTE | 2020-07-23 22:00 | NUR ---
NURSE NOTES: Suctioning provided. Bite block placed. Versed and levophed continues to run. Repositioned.
[2020-07-24] VITALS (60 sets, daily range): BP systolic 85–146; BP diastolic 51–84
--- NOTE | 2020-07-24 | NUR ---
NURSE NOTES: Patient repositioned. Versed now at 18mg/hr and patient looks calm, lightly sedated.
[2020-07-24] MEDS: Midodrine 10mg tab ORAL SCH ×3 (01:45→17:19)
--- NOTE | 2020-07-24 02:00 | NUR ---
NURSE NOTES: No changes in condition. RASS -2 lightly sedated; easily awakens to touch. Versed continues at 18mg/hr.
[2020-07-24] MEDS: Midazolam for drip 50 MG in NS 90 ML IV PRN ×2 (02:30→05:01)
[2020-07-24] MEDS: Norepinephrine 4mg/NS Premix 250 ML IV SCH ×2 (02:31→18:03)
[2020-07-24] MEDS: Meropenem 1gm/NS 55ml IVPB SCH ×6 (03:21→20:15)
--- NOTE | 2020-07-24 04:00 | NUR ---
NURSE NOTES: Bed bath given, linens changed, oral care and suction provided. Covid swab taken and blood drawn peripherally and sent to the lab.
[2020-07-24 04:55] LABS: BASOPHILS % (AUTO) 0.5 % (0.0-2.0); EOSINOPHILS % (AUTO) 0.5 % (0.0-3.0); HEMATOCRIT 27.2 % (42.0-52.0); HEMOGLOBIN 8.3 G/DL (14.2-18.0); LYMPHOCYTES % (AUTO) 12.2 % (20.0-45.0); MEAN CORPUSCULAR VOLUME 97 FL (80-99); MONOCYTES % (AUTO) 5.6 % (1.0-10.0); NEUTROPHILS % (AUTO) 81.3 % (45.0-75.0); PLATELET COUNT 443 K/UL (150-450); RED BLOOD COUNT 2.79 M/UL (4.70-6.10); RED CELL DISTRIBUTION WIDTH 16.9 % (11.6-14.8); WHITE BLOOD COUNT 16.2 K/UL (4.8-10.8)
[2020-07-24 05:19] LABS: ALANINE AMINOTRANSFERASE 29 U/L (12-78); ALBUMIN 1.4 G/DL (3.4-5.0); ALBUMIN/GLOBULIN RATIO 0.3 (1.0-2.7); ALKALINE PHOSPHATASE 160 U/L (46-116); ASPARTATE AMINO TRANSFERASE 29 U/L (15-37); BILIRUBIN,TOTAL 0.4 MG/DL (0.2-1.0); BLOOD UREA NITROGEN 21 mg/dL (7-18); CALCIUM 7.9 MG/DL (8.5-10.1); CARBON DIOXIDE 27 MMOL/L (21-32); CHLORIDE 108 MMOL/L (98-107); PHOSPHORUS 2.1 MG/DL (2.5-4.9); POTASSIUM 3.8 MMOL/L (3.5-5.1); SODIUM 142 MMOL/L (136-145)
[2020-07-24] MEDS: NovoLOG Insulin Flexpen SUBQ SCH ×4 (05:53→17:50)
--- NOTE | 2020-07-24 06:00 | NUR ---
NURSE NOTES: NGT of Glucerna 1.2 feeding has resumed @ 10ml/hr and will increase to goal of 60ml/hr as tolerated. Levophed titrated to 4mcgs/min. BP:117/83 HR:69. Versed drip now at 14mg/hr with a RASS score of -2.
--- NOTE | 2020-07-24 07:18 | NUR ---
NURSE HAND-OFF REPORT: Latest Vital Signs: Temperature 99.7 , Pulse 78 , B/P 94 /59 , Respiratory Rate 14 , O2 SAT 100 , Mechanical Ventilator, O2 Flow Rate . Vital Sign Comment: on levophed, otherwise stable. EKG Rhythm: Sinus Rhythm Rhythm change?: N Notified?: Grecia iRvera MD Response: Latest Gonzalez Fall Score: 70 Fall Risk: High Risk Safety Measures: Call light Within Reach, Bed Alarm Zone 1, Side Rails Side Rails x3, Bed position Low and Locked. Fall Precautions: Yellow Socks Yellow Gown Door Sign Patient Fall Education Report given to .
--- NOTE | 2020-07-24 07:19 | NUR ---
NURSE NOTES: Pt received from FLORES Clayton. Pt is sedated, RASS -2 noted, opens eyes when called by name for approx 3 sec. Gag reflex is intact, pt withdraws to pain but unable to follow simple commands. Bilat pupils equal and round - 4mm with sluggish rxn to light. Pt is in SR to cardiac rehabilitation program director. Radial and dorsalis pedis pulses 2+. Afebrile at this time with cooling blanket on monitor mode. Cap refill 3 sec. Pt is orally intubated with a 7.5 ETT noted 25 cm at the lip with the following settings: AC 14 TV 600 FiO2 90% Peep 0 (ABGs to be drawn shortly- will f/u with RT). Right lung rogers noted with rhonchi and left field noted diminished upon auscultation. Pt has a right naris NGT running Glucerna 1.2 at 10 cc/hr without gastric residuals noted. F/C noted draining yellow, clear urine. Skin alterations noted. Pt has a JACQUIE PICC with dry and intact dressing running versed gtt at 14 mg/hr and 1/2 NS at 50 cc/hr. Bed in lowest position, alarm on, side rails up x 2, call light within reach. Will continue to monitor. Addendum: 07/24/20 at 1419 by Peyton Parks RN Amendment: Levophed gtt also running at 4 mcg/min Addendum: 07/25/20 at 1438 by Peyton Parks RN Late entry: Pt also noted with 2+ pitting edema to bilat hands and 1+ to right arm. Abd is soft, round, and non-distended with active bowel sounds to all quadrants.
--- NOTE | 2020-07-24 08:00 | NUR ---
NURSE NOTES: Oral care provided.
--- NOTE | 2020-07-24 08:26 | Nephrology Progress Note ---
Assessment/Plan Problem List: (1) Dehydration (2) MELANIE (acute kidney injury) (3) Renal failure (ARF), acute on chronic (4) Hypoxia (5) Acute encephalopathy (6) Electrolyte imbalance Assessment 79-year-old male is admitted with acute hypoxic respiratory failure most likely secondary to pneumonia and sepsis, UTI. Acute on chronic renal failure Dehydration Electrolyte imbalances, hypernatremia Hypoalbuminemia Diabetes type 2 History of congestive heart failure Hypertension Hyperlipemia Alzheimer's Previous COVID-19 infection in May 2020 Plan July 24: Seen in ICU. Discussed with FLORES Holliday. Remains on pressor. Electrolyte abnormalities noted and addressed. Continue per consultants. Patient remains full code. July 23: Seen in ICU. Discussed with FLORES Barrera. Blood pressure remains a little requiring pressors. Labs reviewed. Stable renal parameters. Continue per consultants. July 22: Remains intubated. Full code. Blood pressure borderline low. Will increase midodrine dose. Discussed with RN. Continue to monitor renal parameters and electrolytes. July 21: Intubated. Full code. Labs reviewed. Stable from renal standpoint of view. Continue per consultants. July 20: Remains intubated. Full code. Labs reviewed. Electrolytes within normal limit. Continue per consultants. July 19: In ICU. Remains intubated on ventilator. Remains full code. Low potassium addressed. Blood pressure fluctuating. Continue per consultants. July 18: Patient in ICU. Intubated on ventilator. On 6 mics of Levophed. Will give 100 cc albumin 25%. K-Phos IV ordered. Continue per consultants. Continue monitor renal parameters and electrolytes. July 17: Status unchanged. Transfer to [facility] for seizure. Stable from renal standpoint to view. Continue per consultants. July 16: Status quo. Labs reviewed. Renal parameters stable. Continue per consultants. July 15: On nonrebreather mask. Labs reviewed. Renal parameters stable.Continue per trial mgr. Clinically unchanged. July 14: On nonrebreather mask. Inflammatory markers gradually declining. Renal parameters stable. Continue per pulmonary. July 13: Remains on nonrebreather mask. Inflammatory markers remain elevated. Renal parameters somewhat stable. Continue per pulmonary and ID. Remains full code. July 12: Patient on nonrebreather mask. Labs noted. Serum creatinine down to 1.3. Continue per consultants. July 11: Patient on nonrebreather mask. Transfer to telemetry when seen this morning. Labs noted. Continue per consultants. Serum creatinine erin to 1.7. Continue to monitor renal parameters. Continue to monitor vancomycin level July 10: Patient is not doing well clinically. Mild respiratory distress. ABG noted. Somewhat hypoxic. CBC and chemistry panel ordered. Discussed with FLORES Cho. Will defer to pulmonary management to specialist. Continue per ID. Renal parameters remained stable as of July 09. July 09: Labs reviewed. Renal parameters stable. Continue per consultants. July 08: Labs reviewed. Potassium via NG tube ordered. IV fluids stopped. Continue per consultants. July 07: Labs reviewed. Low potassium and low phosphorus replaced. Continue per consultants. Remains stable from renal standpoint of view. July 06: Patient remains n.p.o. IV fluid down to 50 cc an hour. Potassium supplement intravenously ordered. Continue per consultants. Previously: Patient is n.p.o., will continue on IV fluid of D5W 75 cc an hour We will monitor electrolytes and renal parameters Avoid nephrotoxic's Start p.o. when he clears by speech therapist, meanwhile aspiration precautions Keep the blood pressure and blood sugar in check Per orders Subjective ROS Limited/Unobtainable: Yes Objective Objective Last 24 Hour Vital Signs Date Time Temp Pulse Resp B/P (MAP) Pulse Ox O2 Delivery O2 Flow Rate FiO2 07/24/20 08:00 85 14 96/59 (71) 100 07/24/20 08:00 90 07/24/20 07:30 98.7 86 12 100/76 (84) 100 07/24/20 07:16 14 Mechanical Ventilator 07/24/20 07:00 78 14 94/59 (71) 100 07/24/20 06:30 72 14 07/24/20 06:16 14 Mechanical Ventilator 07/24/20 06:00 71 14 117/83 (94) 100 07/24/20 05:45 74 14 113/64 (80) 100 07/24/20 05:30 77 14 109/61 (77) 100 07/24/20 05:16 15 Mechanical Ventilator 07/24/20 05:15 81 14 117/66 (83) 100 07/24/20 05:01 15 Mechanical Ventilator 07/24/20 05:00 83 14 146/70 (95) 100 07/24/20 04:45 76 14 126/69 (88) 100 07/24/20 04:30 81 14 122/72 (89) 100 07/24/20 04:15 84 14 121/72 (88) 100 07/24/20 04:09 14 Mechanical Ventilator 90 07/24/20 04:00 Mechanical Ventilator 07/24/20 04:00 90 07/24/20 04:00 99.7 84 14 104/60 (75) 100 07/24/20 03:30 84 14 97/62 (74) 100 07/24/20 03:30 81 14 90 07/24/20 03:19 83 07/24/20 03:15 86 14 102/62 (75) 100 07/24/20 03:09 14 Mechanical Ventilator 100 07/24/20 03:00 85 14 106/66 (79) 100 07/24/20 02:31 112/67 07/24/20 02:30 15 Mechanical Ventilator 100 07/24/20 02:09 14 Mechanical Ventilator 100 07/24/20 02:00 82 14 115/67 (83) 100 07/24/20 01:09 14 Mechanical Ventilator 100 07/24/20 01:00 81 14 115/66 (82) 100 07/24/20 00:09 14 Mechanical Ventilator 100 07/24/20 00:00 98.1 86 14 142/76 (98) 100 07/24/20 00:00 Mechanical Ventilator 07/23/20 23:54 14 Mechanical Ventilator 07/23/20 23:49 14 Mechanical Ventilator 07/23/20 23:39 14 Non-Rebreather 100 07/23/20 23:30 86 14 90 07/23/20 23:28 82 07/23/20 23:24 14 Mechanical Ventilator 100 07/23/20 23:09 23 Mechanical Ventilator 100 07/23/20 23:00 82 14 108/71 (83) 100 07/23/20 22:54 25 Mechanical Ventilator 100 07/23/20 22:45 81 14 100/62 (75) 100 07/23/20 22:39 25 Mechanical Ventilator 100 07/23/20 22:30 85 14 94/64 (74) 100 07/23/20 22:24 25 Mechanical Ventilator 100 07/23/20 22:15 90 14 96/65 (75) 100 07/23/20 22:09 25 Mechanical Ventilator 100 07/23/20 22:00 96 20 118/68 (85) 100 07/23/20 21:54 25 Mechanical Ventilator 100 07/23/20 21:45 101 22 136/82 (100) 100 07/23/20 21:39 25 Mechanical Ventilator 100 07/23/20 21:30 103 22 117/68 (84) 100 07/23/20 21:24 25 Mechanical Ventilator 100 07/23/20 21:15 105 20 124/83 (97) 100 07/23/20 21:09 25 Mechanical Ventilator 100 07/23/20 21:00 107 23 140/75 (96) 100 07/23/20 20:54 25 Mechanical Ventilator 100 07/23/20 20:45 107 23 135/74 (94) 100 07/23/20 20:39 21 Mechanical Ventilator 100 07/23/20 20:34 23 Mechanical Ventilator 100 07/23/20 20:30 110 25 141/71 (94) 100 07/23/20 20:19 25 Mechanical Ventilator 100 07/23/20 20:15 110 23 135/85 (102) 100 07/23/20 20:04 23 Mechanical Ventilator 100 07/23/20 20:00 Mechanical Ventilator 07/23/20 20:00 98.2 110 23 139/72 (94) 100 07/23/20 20:00 100 07/23/20 19:50 110 25 147/91 100 07/23/20 19:49 25 Mechanical Ventilator 100 07/23/20 19:45 111 24 147/91 (109) 100 07/23/20 19:31 106 07/23/20 19:30 111 23 157/86 (109) 100 07/23/20 19:20 107 26 175/95 100 07/23/20 19:15 106 27 144/88 (106) 100 07/23/20 19:00 103 20 112/74 (87) 100 07/23/20 18:44 108/65 07/23/20 18:44 102 17 100 07/23/20 18:00 102 21 108/65 (79) 100 07/23/20 17:00 95 14 134/79 (97) 100 07/23/20 16:00 35 07/23/20 16:00 Mechanical Ventilator 07/23/20 16:00 98.0 102 15 115/71 (86) 100 07/23/20 15:31 103 07/23/20 15:08 104 14 100 07/23/20 15:00 100 14 132/78 (96) 100 07/23/20 14:30 95 14 129/77 (94) 100 07/23/20 14:00 94 14 117/72 (87) 100 07/23/20 13:44 90/60 07/23/20 13:10 97 15 117/69 (85) 99 07/23/20 13:00 96 14 76/49 (58) 99 07/23/20 12:30 97 14 63/41 (48) 97 07/23/20 12:15 106 14 57/42 (47) 100 07/23/20 12:00 Mechanical Ventilator 07/23/20 12:00 97.7 131 16 115/61 (79) 100 07/23/20 12:00 35 07/23/20 11:48 113 07/23/20 11:30 99 52 148/57 (87) 75 07/23/20 11:03 100 19 113/69 98 07/23/20 11:03 98.8 07/23/20 11:01 100 19 35 07/23/20 11:00 100 20 113/69 (84) 98 07/23/20 10:33 92 14 127/63 100 07/23/20 10:00 92 14 127/63 (84) 100 07/23/20 09:00 95 17 123/66 (85) 100 07/23/20 08:30 89 16 112/64 (80) 100 Intake and Output 07/23/20 07/24/20 19:00 07:00 Intake Total 1340.83 ml 1323.125 ml Output Total 960 ml 850 ml Balance 380.83 ml 473.125 ml Free Water 5 ml 30 ml IV Total 1035.83 ml 1263.125 ml Tube Feeding 300 ml 30 ml Output Urine Total 960 ml 850 ml # Bowel Movements 1 Laboratory Tests 07/23/20 12:09: Arterial Blood pH 7.276L, Arterial Blood Partial Pressure CO2 51.1H, Arterial Blood Partial Pressure O2 61.6L, Arterial Blood HCO3 23.3, Arterial Blood Oxygen Saturation 87.0*L, Arterial Blood Base Excess -3.6L, Richard Test Positive 07/24/20 04:00: White Blood Count 16.2H, Red Blood Count 2.79L, Hemoglobin 8.3L, Hematocrit 27.2L, Mean Corpuscular Volume 97, Mean Corpuscular Hemoglobin 29.8, Mean Cor puscular Hemoglobin Concent 30.6L, Red Cell Distribution Width 16.9H, Platelet Count 443, Mean Platelet Volume 7.7, Neutrophils (%) (Auto) 81.3H, Lymphocytes (%) (Auto) 12.2L, Monocytes (%) (Auto) 5.6, Eosinophils (%) (Auto) 0.5, Basophils (%) (Auto) 0.5, Sodium Level 142, Potassium Level 3.8, Chloride Level 108H, Carbon Dioxide Level 27, Blood Urea Nitrogen 21H, Creatinine 1.0, Estimat Glomerular Filtration Rate > 60, Glucose Level 123H, Calcium Level 7.9L, Phosphorus Level 2.1L, Magnesium Level 2.2, Total Bilirubin 0.4, Aspartate Amino Transf (AST/SGOT) 29, Alanine Aminotransferase (ALT/SGPT) 29, Alkaline Phosphatase 160H, Total Protein 6.2L, Albumin 1.4L, Globulin 4.8, Albumin/Globulin Ratio 0.3L Height (Feet): 5 Height (Inches): 4.00 Weight (Pounds): 130 General Appearance: no apparent distress EENT: other - Intubated on ventilator Cardiovascular: normal rate Respiratory/Chest: decreased breath sounds Abdomen: distended Tino Connors MD Jul 24, 2020 08:26
--- NOTE | 2020-07-24 08:38 | NUR ---
RD ASSESSMENT & RECOMMENDATIONS SEE CARE ACTIVITY FOR COMPLETE ASSESSMENT DAILY ESTIMATED NEEDS: Needs based on DM, wound, critical care 59.5kg 22-28 kcals/kg 3036-3708 total kcals 1.25-2 g protein/kg 74-119 g total protein 25-30 mL/kg 1114-1031 total fluid mLs NUTRITION DIAGNOSIS: * Swallowing difficulty R/T dysphagia as evidenced by SCISSORS SHARPENER fahad, recs for NGT feeds, now s/p oral intubation (07/17), s/p code blue (07/23) and remains intubated, on pressor support and sedated, cont on NGT feeds. * Increased kcal and pro needs r/t wound healing as evidenced by sacral pressure injury stage 2. CURRENT TF:Glucerna 1.2 @ 60ml/hr x24 hrs ENTERAL NUTRITION RECOMMENDATIONS: Glucerna 1.2 @ 55ml/hr x24 hrs to provide 1320ml, 1584kcal, 79g prot, 1063ml free water - LOWER goal rate to 55ml/hr x 24 hrs : s/p intubation w/ decreased kcal needs - HOB over 30 degrees/ H2O flush per MD ADDITIONAL RECOMMENDATIONS: * Calibrated bedscale wt for accurate CBW * Monitor hemodynamic stability: s/p code blue (07/23), NE @ 4mcg * Monitor lytes, replete as needed (low phos) * Wound care: add Sushil BID via PEG add Vit C 250mg QD . .
[2020-07-24] MEDS ORDERED: Potassium Phosphate 20 MM in NS 275 ML IV ONE (09:00)
[2020-07-24] MEDS: Tamsulosin 0.4mg cap ORAL SCH ×2 (09:01→17:19)
[2020-07-24] MEDS: Pantoprazole Inj IV SCH (09:01)
[2020-07-24] MEDS: MIDAZOLAM FOR DRIP IV PRN (09:02)
[2020-07-24] MEDS: NS IV PRN (09:02)
[2020-07-24] MEDS: Heparin 5000 units/ml inj SUBQ SCH ×2 (09:06→20:16)
--- NOTE | 2020-07-24 09:46 | NUR ---
RADIOLOGY DEPT., CHEST X-RAY DONE.-P.DYE
--- NOTE | 2020-07-24 10:00 | NUR ---
NURSE NOTES: Dr Connors assessing pt at bedside. Labs for today reviewed.
--- NOTE | 2020-07-24 10:34 | Infectious Diseases Prog Note ---
Assessment/Plan 79yo M with: Respiratory code 2ry to mucus plug 07/23 SEptic Shock- -recurrent Fever,r ecurrent, low grade;SP Leukocytosis ;recurrent ; increased Acute hypoxic resp failure, on NRB mask> 4l NC; back on NRB, desaturation 07/09 > intubated 07/17 Pneumonia- >HAP hx of COVID19 PNA 05/20/20 --07/21 CXR: Bilateral infiltrates in a peribronchovascular distribution are unchanged. Left pleural effusion is unchanged. --07/19 CXR: Persistent bilateral patchy pulmonary opacities, most prominent in the left lower lung. --07/18 ucx neg sp cx MRSA (colonizer at this point) Bcx Neg --07/13 Bcx Neg 07/10 Sp cx MRSA (Vancomycin APOLONIA 1), ESBL E.coli 07/03 BCx NTD UA - WBC, UCx Neg 07/03 COVID rapid neg; 07/06 rapid COVID PCR + (from prior infection)- not new infection Flu A/B neg CXR: L pna Resp cx MRSA Denis on CKD, improving SNF resident ([facility]) Non-verbal VRE and MRSA colonized Plan: Meropenem #08/24 for ESBL PNA start ZYvoz for MRSA coverage given mucus plug and worsening hemodynamics -07/21 SP Micafungin #4 -07/17 SP IV Vancomycin #15 -07/13 SP Zosyn #4 -07/06 SP Cefepime # -07/04 SP Flagyl # Monitor CBC/CMP Monitor resp status Monitor temp curve and hemodynamics repeat cultures D/w RN Thank you for this consult. [facility] will continue to follow. Subjective Allergies: Coded Allergies: No Known Allergies (Unverified , 04/30/12) afebrile in >48hrs respiratory code yesterday 2ry to mucus plug back on pressors; levophed at 4 Objective Last 24 Hour Vital Signs Date Time Temp Pulse Resp B/P (MAP) Pulse Ox O2 Delivery O2 Flow Rate FiO2 07/24/20 09:45 74 14 92/53 (66) 100 07/24/20 09:30 84 14 96/56 (69) 100 07/24/20 09:25 71 14 90 07/24/20 09:15 83 15 121/66 (84) 100 07/24/20 09:02 14 Mechanical Ventilator 90 07/24/20 09:00 79 14 133/70 (91) 100 07/24/20 08:30 75 14 88/56 (67) 100 07/24/20 08:00 85 14 96/59 (71) 100 07/24/20 08:00 90 07/24/20 07:30 98.7 86 12 100/76 (84) 100 07/24/20 07:16 14 Mechanical Ventilator 90 07/24/20 07:00 78 14 94/59 (71) 100 07/24/20 07:00 73 14 90 07/24/20 06:30 72 14 07/24/20 06:16 14 Mechanical Ventilator 90 07/24/20 06:00 71 14 117/83 (94) 100 07/24/20 05:45 74 14 113/64 (80) 100 07/24/20 05:30 77 14 109/61 (77) 100 07/24/20 05:16 15 Mechanical Ventilator 90 07/24/20 05:15 81 14 117/66 (83) 100 07/24/20 05:01 15 Mechanical Ventilator 07/24/20 05:00 83 14 146/70 (95) 100 07/24/20 04:45 76 14 126/69 (88) 100 07/24/20 04:30 81 14 122/72 (89) 100 07/24/20 04:15 84 14 121/72 (88) 100 07/24/20 04:09 14 Mechanical Ventilator 07/24/20 04:00 Mechanical Ventilator 07/24/20 04:00 90 07/24/20 04:00 99.7 84 14 104/60 (75) 100 07/24/20 03:30 84 14 97/62 (74) 100 07/24/20 03:30 81 14 90 07/24/20 03:19 83 07/24/20 03:15 86 14 102/62 (75) 100 07/24/20 03:09 14 Mechanical Ventilator 100 07/24/20 03:00 85 14 106/66 (79) 100 07/24/20 02:31 112/67 07/24/20 02:30 15 Mechanical Ventilator 100 07/24/20 02:09 14 Mechanical Ventilator 07/24/20 02:00 82 14 115/67 (83) 100 07/24/20 01:09 14 Mechanical Ventilator 100 07/24/20 01:00 81 14 115/66 (82) 100 07/24/20 00:09 14 Mechanical Ventilator 100 07/24/20 00:00 98.1 86 14 142/76 (98) 100 07/24/20 00:00 Mechanical Ventilator 07/23/20 23:54 14 Mechanical Ventilator 100 07/23/20 23:49 14 Mechanical Ventilator 100 07/23/20 23:39 14 Non-Rebreather 100 07/23/20 23:30 86 14 90 07/23/20 23:28 82 07/23/20 23:24 14 Mechanical Ventilator 100 07/23/20 23:09 23 Mechanical Ventilator 100 07/23/20 23:00 82 14 108/71 (83) 100 07/23/20 22:54 25 Mechanical Ventilator 100 07/23/20 22:45 81 14 100/62 (75) 100 07/23/20 22:39 25 Mechanical Ventilator 100 07/23/20 22:30 85 14 94/64 (74) 100 07/23/20 22:24 25 Mechanical Ventilator 100 07/23/20 22:15 90 14 96/65 (75) 100 07/23/20 22:09 25 Mechanical Ventilator 100 07/23/20 22:00 96 20 118/68 (85) 100 07/23/20 21:54 25 Mechanical Ventilator 100 07/23/20 21:45 101 22 136/82 (100) 100 07/23/20 21:39 25 Mechanical Ventilator 100 07/23/20 21:30 103 22 117/68 (84) 100 07/23/20 21:24 25 Mechanical Ventilator 100 07/23/20 21:15 105 20 124/83 (97) 100 07/23/20 21:09 25 Mechanical Ventilator 100 07/23/20 21:00 107 23 140/75 (96) 100 07/23/20 20:54 25 Mechanical Ventilator 100 07/23/20 20:45 107 23 135/74 (94) 100 07/23/20 20:39 21 Mechanical Ventilator 100 07/23/20 20:34 23 Mechanical Ventilator 100 07/23/20 20:30 110 25 141/71 (94) 100 07/23/20 20:19 25 Mechanical Ventilator 100 07/23/20 20:15 110 23 135/85 (102) 100 11/12/20 20:04 23 Mechanical Ventilator 100 07/23/20 20:00 Mechanical Ventilator 07/23/20 20:00 98.2 110 23 139/72 (94) 100 07/23/20 20:00 100 07/23/20 19:50 110 25 147/91 100 07/23/20 19:49 25 Mechanical Ventilator 100 07/23/20 19:45 111 24 147/91 (109) 100 07/23/20 19:31 106 07/23/20 19:30 111 23 157/86 (109) 100 07/23/20 19:20 107 26 175/95 100 07/23/20 19:15 106 27 144/88 (106) 100 07/23/20 19:00 103 20 112/74 (87) 100 07/23/20 18:44 108/65 07/23/20 18:44 102 17 100 07/23/20 18:00 102 21 108/65 (79) 100 07/23/20 17:00 95 14 134/79 (97) 100 07/23/20 16:00 35 07/23/20 16:00 Mechanical Ventilator 07/23/20 16:00 98.0 102 15 115/71 (86) 100 07/23/20 15:31 103 07/23/20 15:08 104 14 100 07/23/20 15:00 100 14 132/78 (96) 100 07/23/20 14:30 95 14 129/77 (94) 100 07/23/20 14:00 94 14 117/72 (87) 100 07/23/20 13:44 90/60 07/23/20 13:10 97 15 117/69 (85) 99 07/23/20 13:00 96 14 76/49 (58) 99 07/23/20 12:30 97 14 63/41 (48) 97 07/23/20 12:15 106 14 57/42 (47) 100 07/23/20 12:00 Mechanical Ventilator 07/23/20 12:00 97.7 131 16 115/61 (79) 100 07/23/20 12:00 35 07/23/20 11:48 113 07/23/20 11:30 99 52 148/57 (87) 75 07/23/20 11:03 100 19 113/69 98 07/23/20 11:03 98.8 07/23/20 11:01 100 19 35 07/23/20 11:00 100 20 113/69 (84) 98 07/23/20 10:33 92 14 127/63 100 Height (Feet): 5 Height (Inches): 4.00 Weight (Pounds): 130 Gen: sedated, intubated CV: RRR Pulm: Rhonchi anteriorly Abd: Soft, NTND Ext: No c/c/e Laboratory Tests Test 07/23/20 12:09 07/24/20 04:00 Arterial Blood pH 7.276 (7.350-7.450) Arterial Blood Partial Pressure CO2 51.1 mmHg (35.0-45.0) H Arterial Blood Partial Pressure O2 61.6 mmHg (75.0-100.0) L Arterial Blood HCO3 23.3 mmol/L (22.0-26.0) Arterial Blood Oxygen Saturation 87.0 % (95-100) *L Arterial Blood Base Excess -3.6 (-2-2) L Richard Test Positive White Blood Count 16.2 K/UL (4.8-10.8) H Red Blood Count 2.79 M/UL (4.70-6.10) L Hemoglobin 8.3 G/DL (14.2-18.0) L Hematocrit 27.2 % (42.0-52.0) L Mean Corpuscular Volume 97 FL (80-99) Mean Corpuscular Hemoglobin 29.8 PG (27.0-31.0) Mean Corpuscular Hemoglobin Concent 30.6 G/DL (32.0-36.0) L Red Cell Distribution Width 16.9 % (11.6-14.8) H Platelet Count 443 K/UL (150-450) Mean Platelet Volume 7.7 FL (6.5-10.1) Neutrophils (%) (Auto) 81.3 % (45.0-75.0) H Lymphocytes (%) (Auto) 12.2 % (20.0-45.0) L Monocytes (%) (Auto) 5.6 % (1.0-10.0) Eosinophils (%) (Auto) 0.5 % (0.0-3.0) Basophils (%) (Auto) 0.5 % (0.0-2.0) Sodium Level 142 MMOL/L (136-145) Potassium Level 3.8 MMOL/L (3.5-5.1) Chloride Level 108 MMOL/L (98-107) H Carbon Dioxide Level 27 MMOL/L (21-32) Blood Urea Nitrogen 21 mg/dL (7-18) H Creatinine 1.0 MG/DL (0.55-1.30) Estimat Glomerular Filtration Rate > 60 mL/min (>60) Glucose Level 123 MG/DL (74-106) H Calcium Level 7.9 MG/DL (8.5-10.1) L Phosphorus Level 2.1 MG/DL (2.5-4.9) L Magnesium Level 2.2 MG/DL (1.8-2.4) Total Bilirubin 0.4 MG/DL (0.2-1.0) Aspartate Amino Transf (AST/SGOT) 29 U/L (15-37) Alanine Aminotransferase (ALT/SGPT) 29 U/L (12-78) Alkaline Phosphatase 160 U/L (46-116) H Total Protein 6.2 G/DL (6.4-8.2) L Albumin 1.4 G/DL (3.4-5.0) L Globulin 4.8 g/dL Albumin/Globulin Ratio 0.3 (1.0-2.7) L Current Medications Medications (Trade) Dose Ordered Sig/Ankush Route PRN Reason Start Time Stop Time Status Last Admin Dose Admin Acetaminophen (Tylenol) 650 mg Q4H PRN ORAL Temp >100.5 07/03/20 20:30 08/02/20 20:29 07/16/20 22:39 Chlorhexidine Gluconate (Darcy-Hex 2%) 1 applic DAILY@1999 TOPIC 07/17/20 20:00 10/15/20 19:59 07/23/20 19:48 Dextrose (Dextrose 50%) 50 ml Q30M PRN IV Hypoglycemia 07/03/20 22:45 10/01/20 22:44 Heparin Sodium (Porcine) (Heparin 5000 units/ml) 5,000 units EVERY 12 HOURS SUBQ 07/03/20 21:00 08/17/20 20:59 07/24/20 09:06 Insulin Aspart (NovoLOG) EVERY 6 HOURS SUBQ 07/13/20 06:00 10/02/20 06:29 07/22/20 13:21 Lorazepam (Ativan 2mg/ml 1ml) 2 mg Q4H PRN IV For Anxiety 07/21/20 13:45 07/28/20 13:44 07/23/20 19:20 Meropenem 1 gm/ Sodium Chloride 55 ml @ 110 mls/hr Q8HR@0400,1200,2000 IVPB 07/22/20 12:00 07/27/20 11:59 07/24/20 03:21 Midazolam HCl 100 mg/Sodium Chloride 200 ml @ 0 mls/hr Q24H PRN IV Agitation 07/24/20 08:30 07/26/20 08:29 07/24/20 09:02 Midodrine (Pro-Amatine) 10 mg Q8H ORAL 07/22/20 17:00 10/20/20 16:59 07/24/20 09:01 Morphine Sulfate (Morphine Sulfate) 2 mg Q6H PRN IVP moderate pain 07/21/20 13:45 07/28/20 13:44 Morphine Sulfate (Morphine Sulfate) 4 mg Q4H PRN IVP severe pain 07/17/20 12:45 07/24/20 12:44 07/23/20 10:33 Nitroglycerin (Ntg) 0.4 mg Q5M PRN SL Prn Chest Pain 07/03/20 20:30 08/02/20 20:29 Norepinephrine Bitartrate 250 ml @ 0 mls/hr Q24H IV 07/23/20 13:30 07/26/20 15:44 07/24/20 02:31 Ondansetron HCl (Zofran) 4 mg Q6H PRN IVP Nausea & Vomiting 07/03/20 20:30 08/02/20 20:29 Pantoprazole (Protonix) 40 mg DAILY IV 07/18/20 09:00 08/17/20 08:59 07/24/20 09:01 Polyethylene Glycol (Miralax) 17 gm DAILYPRN PRN ORAL Constipation 07/03/20 20:30 08/02/20 20:29 Potassium Phosphate 20 mm/ Sodium Chloride 281.6667 ml @ 46.944 m... ONCE ONCE IV 07/24/20 09:00 07/24/20 14:59 07/24/20 09:02 Promethazine HCl/ Codeine (Phenergan with Codeine) 5 ml Q4H PRN ORAL For Cough 07/03/20 20:30 08/02/20 20:29 Sodium Chloride 1,000 ml @ 50 mls/hr Q20H IV 07/17/20 16:00 08/16/20 15:59 07/24/20 04:12 Tamsulosin HCl (Flomax) 0.4 mg BID ORAL 07/11/20 19:45 08/03/20 08:59 07/24/20 09:01 Ashley Cho M.D. Jul 24, 2020 10:34
--- NOTE | 2020-07-24 11:22 | Pulmonolgy Critical Care Note ---
Critical Care - Asmt/Plan Problems: (1) Acute respiratory failure (2) Multifocal pneumonia (3) 2019 novel coronavirus disease (COVID-19) (4) Acute encephalopathy (5) Severe sepsis (6) Alzheimer's dementia (7) HTN (hypertension) (8) History of CVA (cerebrovascular accident) (9) BPH (benign prostatic hyperplasia) Assessment/Plan: on Levophed, FiO2 90% now Respiratory: monitor respiratory rate, adjust FIO2, CXR Cardiac: continue pressors, continue to monitor HR/BP Renal: F/U I&O, check electrolytes Infectious Disease: check cultures Gastrointestinal: continue feedings/current rate Endocrine: monitor blood sugar, continue sliding scale insulin Hematologic: monitor H/H, transfuse if hgb<8.5 Neurologic: PRN Ativan, keep patient comfortable Affect: PRN ativan Prophylaxis: Heparin Disposition: keep in ICU 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 operations manager - Objective Last 24 Hour Vital Signs Date Time Temp Pulse Resp B/P (MAP) Pulse Ox O2 Delivery O2 Flow Rate FiO2 07/24/20 11:00 72 14 99/58 (72) 100 07/24/20 11:00 14 Mechanical Ventilator 07/24/20 10:45 72 14 97/58 (71) 100 07/24/20 10:30 69 14 93/57 (69) 100 07/24/20 10:30 14 Mechanical Ventilator 07/24/20 10:15 72 14 94/58 (70) 100 07/24/20 10:00 78 15 106/60 (75) 100 07/24/20 10:00 14 Mechanical Ventilator 07/24/20 09:45 74 14 92/53 (66) 100 07/24/20 09:30 84 14 96/56 (69) 100 07/24/20 09:30 14 Mechanical Ventilator 07/24/20 09:25 71 14 90 07/24/20 09:15 83 15 121/66 (84) 100 07/24/20 09:02 14 Mechanical Ventilator 07/24/20 09:00 14 Mechanical Ventilator 07/24/20 09:00 79 14 133/70 (91) 100 07/24/20 08:30 75 14 88/56 (67) 100 07/24/20 08:00 85 14 96/59 (71) 100 07/24/20 08:00 82 07/24/20 08:00 Mechanical Ventilator Mechanical Ventilator 07/24/20 08:00 14 Mechanical Ventilator 90 07/24/20 08:00 90 07/24/20 07:30 98.7 86 12 100/76 (84) 100 07/24/20 07:16 14 Mechanical Ventilator 90 07/24/20 07:00 78 14 94/59 (71) 100 07/24/20 07:00 73 14 90 07/24/20 06:30 72 14 07/24/20 06:16 14 Mechanical Ventilator 90 07/24/20 06:00 71 14 117/83 (94) 100 07/24/20 05:45 74 14 113/64 (80) 100 07/24/20 05:30 77 14 109/61 (77) 100 07/24/20 05:16 15 Mechanical Ventilator 90 07/24/20 05:15 81 14 117/66 (83) 100 07/24/20 05:01 15 Mechanical Ventilator 07/24/20 05:00 83 14 146/70 (95) 100 07/24/20 04:45 76 14 126/69 (88) 100 07/24/20 04:30 81 14 122/72 (89) 100 07/24/20 04:15 84 14 121/72 (88) 100 07/24/20 04:09 14 Mechanical Ventilator 07/24/20 04:00 Mechanical Ventilator 07/24/20 04:00 90 07/24/20 04:00 99.7 84 14 104/60 (75) 100 07/24/20 03:30 84 14 97/62 (74) 100 07/24/20 03:30 81 14 90 07/24/20 03:19 83 07/24/20 03:15 86 14 102/62 (75) 100 07/24/20 03:09 14 Mechanical Ventilator 100 07/24/20 03:00 85 14 106/66 (79) 100 07/24/20 02:31 112/67 07/24/20 02:30 15 Mechanical Ventilator 07/24/20 02:09 14 Mechanical Ventilator 07/24/20 02:00 82 14 115/67 (83) 100 07/24/20 01:09 14 Mechanical Ventilator 07/24/20 01:00 81 14 115/66 (82) 100 07/24/20 00:09 14 Mechanical Ventilator 100 07/24/20 00:00 98.1 86 14 142/76 (98) 100 07/24/20 00:00 Mechanical Ventilator 07/23/20 23:54 14 Mechanical Ventilator 100 07/23/20 23:49 14 Mechanical Ventilator 100 07/23/20 23:39 14 Non-Rebreather 100 07/23/20 23:30 86 14 90 07/23/20 23:28 82 07/23/20 23:24 14 Mechanical Ventilator 100 07/23/20 23:09 23 Mechanical Ventilator 100 07/23/20 23:00 82 14 108/71 (83) 100 07/23/20 22:54 25 Mechanical Ventilator 100 07/23/20 22:45 81 14 100/62 (75) 100 07/23/20 22:39 25 Mechanical Ventilator 100 07/23/20 22:30 85 14 94/64 (74) 100 07/23/20 22:24 25 Mechanical Ventilator 100 07/23/20 22:15 90 14 96/65 (75) 100 07/23/20 22:09 25 Mechanical Ventilator 100 07/23/20 22:00 96 20 118/68 (85) 100 07/23/20 21:54 25 Mechanical Ventilator 100 07/23/20 21:45 101 22 136/82 (100) 100 07/23/20 21:39 25 Mechanical Ventilator 100 07/23/20 21:30 103 22 117/68 (84) 100 07/23/20 21:24 25 Mechanical Ventilator 100 07/23/20 21:15 105 20 124/83 (97) 100 07/23/20 21:09 25 Mechanical Ventilator 100 07/23/20 21:00 107 23 140/75 (96) 100 07/23/20 20:54 25 Mechanical Ventilator 100 07/23/20 20:45 107 23 135/74 (94) 100 07/23/20 20:39 21 Mechanical Ventilator 100 07/23/20 20:34 23 Mechanical Ventilator 100 07/23/20 20:30 110 25 141/71 (94) 100 07/23/20 20:19 25 Mechanical Ventilator 100 07/23/20 20:15 110 23 135/85 (102) 100 07/23/20 20:04 23 Mechanical Ventilator 100 07/23/20 20:00 Mechanical Ventilator 07/23/20 20:00 98.2 110 23 139/72 (94) 100 07/23/20 20:00 100 07/23/20 19:50 110 25 147/91 100 07/23/20 19:49 25 Mechanical Ventilator 100 07/23/20 19:45 111 24 147/91 (109) 100 07/23/20 19:31 106 07/23/20 19:30 111 23 157/86 (109) 100 07/23/20 19:20 107 26 175/95 100 07/23/20 19:15 106 27 144/88 (106) 100 07/23/20 19:00 103 20 112/74 (87) 100 07/23/20 18:44 108/65 07/23/20 18:44 102 17 100 07/23/20 18:00 102 21 108/65 (79) 100 07/23/20 17:00 95 14 134/79 (97) 100 07/23/20 16:00 35 07/23/20 16:00 Mechanical Ventilator 07/23/20 16:00 98.0 102 15 115/71 (86) 100 07/23/20 15:31 103 07/23/20 15:08 104 14 100 07/23/20 15:00 100 14 132/78 (96) 100 07/23/20 14:30 95 14 129/77 (94) 100 07/23/20 14:00 94 14 117/72 (87) 100 07/23/20 13:44 90/60 07/23/20 13:10 97 15 117/69 (85) 99 07/23/20 13:00 96 14 76/49 (58) 99 07/23/20 12:30 97 14 63/41 (48) 97 07/23/20 12:15 106 14 57/42 (47) 100 07/23/20 12:00 Mechanical Ventilator 07/23/20 12:00 97.7 131 16 115/61 (79) 100 07/23/20 12:00 35 07/23/20 11:48 113 07/23/20 11:30 99 52 148/57 (87) 75 Status: awake, sedated, somnolent Condition: critical HEENT: atraumatic, normocephalic Lungs: rales, rhonchi Heart: HR/BP stable Abdomen: soft, non-tender, active bowel sounds Accucheck: 128 Critical Care - Subjective ROS Limited/Unobtainable: Yes Interval Events: pt coded yesterday but was revived after 10 minutes. FI02: 90 Vent Support Breath Rate: 14 Vent Support Mode: AC Vent Tidal Volume: 600 Sputum Amount: Moderate PEEP: 0.0 PIP: 27 Tube Feeding Amount: 10 I&O: Intake and Output 07/23/20 07/24/20 19:00 07:00 Intake Total 1340.83 ml 1323.125 ml Output Total 960 ml 850 ml Balance 380.83 ml 473.125 ml Free Water 5 ml 30 ml IV Total 1035.83 ml 1263.125 ml Tube Feeding 300 ml 30 ml Output Urine Total 960 ml 850 ml # Bowel Movements 1 CXR: ET in good position ET-Tube: 7.5 ET Position: 25 Labs: Laboratory Tests Test 07/23/20 12:09 07/24/20 04:00 07/24/20 10:27 Arterial Blood pH 7.276 (7.350-7.450) 7.506 (7.350-7.450) Arterial Blood Partial Pressure CO2 51.1 mmHg (35.0-45.0) H 29.7 mmHg (35.0-45.0) L Arterial Blood Partial Pressure O2 61.6 mmHg (75.0-100.0) L 182.9 mmHg (75.0-100.0) H Arterial Blood HCO3 23.3 mmol/L (22.0-26.0) 23.0 mmol/L (22.0-26.0) Arterial Blood Oxygen Saturation 87.0 % (95-100) *L 99.1 % (95-100) Arterial Blood Base Excess -3.6 (-2-2) L 0.2 (-2-2) Richard Test Positive Positive White Blood Count 16.2 K/UL (4.8-10.8) H Red Blood Count 2.79 M/UL (4.70-6.10) L Hemoglobin 8.3 G/DL (14.2-18.0) L Hematocrit 27.2 % (42.0-52.0) L Mean Corpuscular Volume 97 FL (80-99) Mean Corpuscular Hemoglobin 29.8 PG (27.0-31.0) Mean Corpuscular Hemoglobin Concent 30.6 G/DL (32.0-36.0) L Red Cell Distribution Width 16.9 % (11.6-14.8) H Platelet Count 443 K/UL (150-450) Mean Platelet Volume 7.7 FL (6.5-10.1) Neutrophils (%) (Auto) 81.3 % (45.0-75.0) H Lymphocytes (%) (Auto) 12.2 % (20.0-45.0) L Monocytes (%) (Auto) 5.6 % (1.0-10.0) Eosinophils (%) (Auto) 0.5 % (0.0-3.0) Basophils (%) (Auto) 0.5 % (0.0-2.0) Sodium Level 142 MMOL/L (136-145) Potassium Level 3.8 MMOL/L (3.5-5.1) Chloride Level 108 MMOL/L (98-107) H Carbon Dioxide Level 27 MMOL/L (21-32) Blood Urea Nitrogen 21 mg/dL (7-18) H Creatinine 1.0 MG/DL (0.55-1.30) Estimat Glomerular Filtration Rate > 60 mL/min (>60) Glucose Level 123 MG/DL (74-106) H Calcium Level 7.9 MG/DL (8.5-10.1) L Phosphorus Level 2.1 MG/DL (2.5-4.9) L Magnesium Level 2.2 MG/DL (1.8-2.4) Total Bilirubin 0.4 MG/DL (0.2-1.0) Aspartate Amino Transf (AST/SGOT) 29 U/L (15-37) Alanine Aminotransferase (ALT/SGPT) 29 U/L (12-78) Alkaline Phosphatase 160 U/L (46-116) H Total Protein 6.2 G/DL (6.4-8.2) L Albumin 1.4 G/DL (3.4-5.0) L Globulin 4.8 g/dL Albumin/Globulin Ratio 0.3 (1.0-2.7) L Kya Carreno MD Jul 24, 2020 11:22
--- NOTE | 2020-07-24 11:30 | NUR ---
NURSE NOTES: Dr Carreno at bedside assessing pt. ABG results for today discussed. Order received for new vent settings: AC 12 TV 600 Peep 0. Vent settings changed per Dino RT - FiO2 titrated down to 70% at this time. Pt tolerating new vent settings - SpO2 remains 99-100%. No distress noted. Addendum: 07/24/20 at 1240 by Peyton Parks RN Late entry: Lab results for today reviewed by Dr Carreno. (Hgb noted) - no new orders received.
--- NOTE | 2020-07-24 12:00 | NUR ---
NURSE NOTES: Oral care provided. FiO2 titrated down to 60% at this time. Pt continues to tolerate new vent settings.
--- NOTE | 2020-07-24 13:24 | Cardiac Electrophysiology PN ---
Assessment/Plan Assessment/Plan 1. Accelerated junctional rhythm. Ruled out for [place] Echo showed ejection fraction of 55%. 2. Long run of 31 beats of Nonsustained VT on 07/14/2020. Will need cardiac cath after stabilization. 3. Brady30, Asystole due to resp failure. S/P Code 4. Respiratory failure, on antibiotic and intubated on the vent 5. Septic shock. On Levophed and Midodrine 10 tid 6. History of previous COVID infection in May 2020 and active Covid now in isolation 7. Dementia. SHAYY RN Subjective Subjective In SR in NAD in Covid isolation. In ICU on the Vent with 35% Fio2. Had 31 beats of VT on 07/14/20 at 16:46 and 5 beats 07/19/20 No VT overnight. S/P PICC line Coded yesterday as sat dropped to 20% and got aníbal 30s and PEA and pulseless Got 3 Epi and 2 Bicarb. Now on Levophed 4 mcg Objective Last 24 Hour Vital Signs Date Time Temp Pulse Resp B/P (MAP) Pulse Ox O2 Delivery O2 Flow Rate FiO2 07/24/20 12:00 Mechanical Ventilator Mechanical Ventilator 07/24/20 12:00 99.1 78 13 95/62 (73) 100 07/24/20 12:00 79 07/24/20 12:00 12 Mechanical Ventilator 60 07/24/20 12:00 60 07/24/20 11:30 77 14 97/63 (74) 99 07/24/20 11:00 72 14 99/58 (72) 100 07/24/20 11:00 14 Mechanical Ventilator 90 07/24/20 11:00 79 12 60 07/24/20 10:45 72 14 97/58 (71) 100 07/24/20 10:30 69 14 93/57 (69) 100 07/24/20 10:30 14 Mechanical Ventilator 90 07/24/20 10:15 72 14 94/58 (70) 100 07/24/20 10:00 78 15 106/60 (75) 100 07/24/20 10:00 14 Mechanical Ventilator 90 07/24/20 09:45 74 14 92/53 (66) 100 07/24/20 09:30 84 14 96/56 (69) 100 07/24/20 09:30 14 Mechanical Ventilator 90 07/24/20 09:25 71 14 90 07/24/20 09:15 83 15 121/66 (84) 100 07/24/20 09:02 14 Mechanical Ventilator 90 07/24/20 09:00 14 Mechanical Ventilator 90 07/24/20 09:00 79 14 133/70 (91) 100 07/24/20 08:30 75 14 88/56 (67) 100 07/24/20 08:00 85 14 96/59 (71) 100 07/24/20 08:00 82 07/24/20 08:00 Mechanical Ventilator Mechanical Ventilator 07/24/20 08:00 14 Mechanical Ventilator 90 07/24/20 08:00 90 07/24/20 07:30 98.7 86 12 100/76 (84) 100 07/24/20 07:16 14 Mechanical Ventilator 90 07/24/20 07:00 78 14 94/59 (71) 100 07/24/20 07:00 73 14 90 07/24/20 06:30 72 14 07/24/20 06:16 14 Mechanical Ventilator 90 07/24/20 06:00 71 14 117/83 (94) 100 07/24/20 05:45 74 14 113/64 (80) 100 07/24/20 05:30 77 14 109/61 (77) 100 07/24/20 05:16 15 Mechanical Ventilator 90 07/24/20 05:15 81 14 117/66 (83) 100 07/24/20 05:01 15 Mechanical Ventilator 90 07/24/20 05:00 83 14 146/70 (95) 100 07/24/20 04:45 76 14 126/69 (88) 100 07/24/20 04:30 81 14 122/72 (89) 100 07/24/20 04:15 84 14 121/72 (88) 100 07/24/20 04:09 14 Mechanical Ventilator 90 07/24/20 04:00 Mechanical Ventilator 07/24/20 04:00 90 07/24/20 04:00 99.7 84 14 104/60 (75) 100 07/24/20 03:30 84 14 97/62 (74) 100 07/24/20 03:30 81 14 90 07/24/20 03:19 83 07/24/20 03:15 86 14 102/62 (75) 100 07/24/20 03:09 14 Mechanical Ventilator 100 07/24/20 03:00 85 14 106/66 (79) 100 07/24/20 02:31 112/67 07/24/20 02:30 15 Mechanical Ventilator 100 07/24/20 02:09 14 Mechanical Ventilator 100 07/24/20 02:00 82 14 115/67 (83) 100 07/24/20 01:09 14 Mechanical Ventilator 100 07/24/20 01:00 81 14 115/66 (82) 100 07/24/20 00:09 14 Mechanical Ventilator 100 07/24/20 00:00 98.1 86 14 142/76 (98) 100 07/24/20 00:00 Mechanical Ventilator 07/23/20 23:54 14 Mechanical Ventilator 100 07/23/20 23:49 14 Mechanical Ventilator 100 07/23/20 23:39 14 Non-Rebreather 100 07/23/20 23:30 86 14 90 07/23/20 23:28 82 07/23/20 23:24 14 Mechanical Ventilator 100 07/23/20 23:09 23 Mechanical Ventilator 100 07/23/20 23:00 82 14 108/71 (83) 100 07/23/20 22:54 25 Mechanical Ventilator 100 07/23/20 22:45 81 14 100/62 (75) 100 07/23/20 22:39 25 Mechanical Ventilator 100 07/23/20 22:30 85 14 94/64 (74) 100 07/23/20 22:24 25 Mechanical Ventilator 100 07/23/20 22:15 90 14 96/65 (75) 100 07/23/20 22:09 25 Mechanical Ventilator 100 07/23/20 22:00 96 20 118/68 (85) 100 07/23/20 21:54 25 Mechanical Ventilator 100 07/23/20 21:45 101 22 136/82 (100) 100 07/23/20 21:39 25 Mechanical Ventilator 100 07/23/20 21:30 103 22 117/68 (84) 100 07/23/20 21:24 25 Mechanical Ventilator 100 07/23/20 21:15 105 20 124/83 (97) 100 07/23/20 21:09 25 Mechanical Ventilator 100 07/23/20 21:00 107 23 140/75 (96) 100 07/23/20 20:54 25 Mechanical Ventilator 100 07/23/20 20:45 107 23 135/74 (94) 100 07/23/20 20:39 21 Mechanical Ventilator 100 07/23/20 20:34 23 Mechanical Ventilator 100 07/23/20 20:30 110 25 141/71 (94) 100 07/23/20 20:19 25 Mechanical Ventilator 100 07/23/20 20:15 110 23 135/85 (102) 100 07/23/20 20:04 23 Mechanical Ventilator 100 07/23/20 20:00 Mechanical Ventilator 07/23/20 20:00 98.2 110 23 139/72 (94) 100 07/23/20 20:00 100 07/23/20 19:50 110 25 147/91 100 07/23/20 19:49 25 Mechanical Ventilator 100 07/23/20 19:45 111 24 147/91 (109) 100 07/23/20 19:31 106 07/23/20 19:30 111 23 157/86 (109) 100 07/23/20 19:20 107 26 175/95 100 07/23/20 19:15 106 27 144/88 (106) 100 07/23/20 19:00 103 20 112/74 (87) 100 07/23/20 18:44 108/65 07/23/20 18:44 102 17 100 07/23/20 18:00 102 21 108/65 (79) 100 07/23/20 17:00 95 14 134/79 (97) 100 07/23/20 16:00 35 07/23/20 16:00 Mechanical Ventilator 07/23/20 16:00 98.0 102 15 115/71 (86) 100 07/23/20 15:31 103 07/23/20 15:08 104 14 100 07/23/20 15:00 100 14 132/78 (96) 100 07/23/20 14:30 95 14 129/77 (94) 100 07/23/20 14:00 94 14 117/72 (87) 100 07/23/20 13:44 90/60 Intake and Output 07/23/20 07/24/20 19:00 07:00 Intake Total 1340.83 ml 1323.125 ml Output Total 960 ml 850 ml Balance 380.83 ml 473.125 ml Free Water 5 ml 30 ml IV Total 1035.83 ml 1263.125 ml Tube Feeding 300 ml 30 ml Output Urine Total 960 ml 850 ml # Bowel Movements 1 Laboratory Tests Test 07/24/20 04:00 07/24/20 10:27 White Blood Count 16.2 K/UL (4.8-10.8) H Red Blood Count 2.79 M/UL (4.70-6.10) L Hemoglobin 8.3 G/DL (14.2-18.0) L Hematocrit 27.2 % (42.0-52.0) L Mean Corpuscular Volume 97 FL (80-99) Mean Corpuscular Hemoglobin 29.8 PG (27.0-31.0) Mean Corpuscular Hemoglobin Concent 30.6 G/DL (32.0-36.0) L Red Cell Distribution Width 16.9 % (11.6-14.8) H Platelet Count 443 K/UL (150-450) Mean Platelet Volume 7.7 FL (6.5-10.1) Neutrophils (%) (Auto) 81.3 % (45.0-75.0) H Lymphocytes (%) (Auto) 12.2 % (20.0-45.0) L Monocytes (%) (Auto) 5.6 % (1.0-10.0) Eosinophils (%) (Auto) 0.5 % (0.0-3.0) Basophils (%) (Auto) 0.5 % (0.0-2.0) Sodium Level 142 MMOL/L (136-145) Potassium Level 3.8 MMOL/L (3.5-5.1) Chloride Level 108 MMOL/L (98-107) H Carbon Dioxide Level 27 MMOL/L (21-32) Blood Urea Nitrogen 21 mg/dL (7-18) H Creatinine 1.0 MG/DL (0.55-1.30) Estimat Glomerular Filtration Rate > 60 mL/min (>60) Glucose Level 123 MG/DL (74-106) H Calcium Level 7.9 MG/DL (8.5-10.1) L Phosphorus Level 2.1 MG/DL (2.5-4.9) L Magnesium Level 2.2 MG/DL (1.8-2.4) Total Bilirubin 0.4 MG/DL (0.2-1.0) Aspartate Amino Transf (AST/SGOT) 29 U/L (15-37) Alanine Aminotransferase (ALT/SGPT) 29 U/L (12-78) Alkaline Phosphatase 160 U/L (46-116) H Total Protein 6.2 G/DL (6.4-8.2) L Albumin 1.4 G/DL (3.4-5.0) L Globulin 4.8 g/dL Albumin/Globulin Ratio 0.3 (1.0-2.7) L Arterial Blood pH 7.506 (7.350-7.450) Arterial Blood Partial Pressure CO2 29.7 mmHg (35.0-45.0) L Arterial Blood Partial Pressure O2 182.9 mmHg (75.0-100.0) H Arterial Blood HCO3 23.0 mmol/L (22.0-26.0) Arterial Blood Oxygen Saturation 99.1 % (95-100) Arterial Blood Base Excess 0.2 (-2-2) Richard Test Positive Objective HEAD AND NECK: No JVD. Orally intubated LUNGS: Coarse rhonchi. CARDIOVASCULAR: Irregular S1 and S2 with no gallop. ABDOMEN: Soft. EXTREMITIES: No pitting edema. Klever Matt MD Jul 24, 2020 13:24
--- NOTE | 2020-07-24 14:00 | NUR ---
NURSE NOTES: Pt seen by Dr Matt. 12 Lead EKG performed at bedside. Levophed titrated down to 2 mcg/min.
--- NOTE | 2020-07-24 14:16 | Internal Med Progress Note ---
Subjective Physician Name Ahsan Hodges Attending Physician Ahsan Hodges MD Current Medications Medications (Trade) Dose Ordered Sig/Ankush Route PRN Reason Start Time Stop Time Status Last Admin Dose Admin Acetaminophen (Tylenol) 650 mg Q4H PRN ORAL Temp >100.5 07/03/20 20:30 08/02/20 20:29 07/16/20 22:39 Chlorhexidine Gluconate (Darcy-Hex 2%) 1 applic DAILY@1999 TOPIC 07/17/20 20:00 10/15/20 19:59 07/23/20 19:48 Dextrose (Dextrose 50%) 50 ml Q30M PRN IV Hypoglycemia 07/03/20 22:45 10/01/20 22:44 Heparin Sodium (Porcine) (Heparin 5000 units/ml) 5,000 units EVERY 12 HOURS SUBQ 07/03/20 21:00 08/17/20 20:59 07/24/20 09:06 Insulin Aspart (NovoLOG) EVERY 6 HOURS SUBQ 07/13/20 06:00 10/02/20 06:29 07/22/20 13:21 Linezolid 300 ml @ 300 mls/hr Q12HR IVPB 07/24/20 12:00 07/31/20 11:59 07/24/20 12:28 Lorazepam (Ativan 2mg/ml 1ml) 2 mg Q4H PRN IV For Anxiety 07/21/20 13:45 07/28/20 13:44 07/23/20 19:20 Meropenem 1 gm/ Sodium Chloride 55 ml @ 110 mls/hr Q8HR@0400,1200,1999 IVPB 07/22/20 12:00 07/27/20 11:59 07/24/20 11:25 Midazolam HCl 100 mg/Sodium Chloride 200 ml @ 0 mls/hr Q24H PRN IV Agitation 07/24/20 08:30 07/26/20 08:29 07/24/20 09:02 Midodrine (Pro-Amatine) 10 mg Q8H ORAL 07/22/20 17:00 10/20/20 16:59 07/24/20 09:01 Morphine Sulfate (Morphine Sulfate) 2 mg Q6H PRN IVP moderate pain 07/21/20 13:45 07/28/20 13:44 Nitroglycerin (Ntg) 0.4 mg Q5M PRN SL Prn Chest Pain 07/03/20 20:30 08/02/20 20:29 Norepinephrine Bitartrate 250 ml @ 0 mls/hr Q24H IV 07/23/20 13:30 07/26/20 15:44 07/24/20 02:31 Ondansetron HCl (Zofran) 4 mg Q6H PRN IVP Nausea & Vomiting 07/03/20 20:30 08/02/20 20:29 Pantoprazole (Protonix) 40 mg DAILY IV 07/18/20 09:00 08/17/20 08:59 07/24/20 09:01 Polyethylene Glycol (Miralax) 17 gm DAILYPRN PRN ORAL Constipation 07/03/20 20:30 08/02/20 20:29 Potassium Phosphate 20 mm/ Sodium Chloride 281.6667 ml @ 46.944 m... ONCE ONCE IV 07/24/20 09:00 07/24/20 14:59 07/24/20 09:02 Promethazine HCl/ Codeine (Phenergan with Codeine) 5 ml Q4H PRN ORAL For Cough 07/03/20 20:30 08/02/20 20:29 Sodium Chloride 1,000 ml @ 50 mls/hr Q20H IV 07/17/20 16:00 08/16/20 15:59 07/24/20 04:12 Tamsulosin HCl (Flomax) 0.4 mg BID ORAL 07/11/20 19:45 08/03/20 08:59 07/24/20 09:01 Allergies: Coded Allergies: No Known Allergies (Unverified , 04/30/12) Subjective In ICU Isolation room, unresponsive, cannot follow command, Intubated on Ventilation, less of secretion, on low dose Levophed drip, WBC:16.2 , Objective Last Vital Signs Date Time Temp Pulse Resp B/P (MAP) Pulse Ox O2 Delivery O2 Flow Rate FiO2 07/24/20 14:00 16 Mechanical Ventilator 60 07/24/20 14:00 81 107/65 (79) 99 07/24/20 12:00 99.1 07/17/20 12:00 15.0 Laboratory Tests Test 07/24/20 04:00 07/24/20 10:27 White Blood Count 16.2 K/UL (4.8-10.8) H Red Blood Count 2.79 M/UL (4.70-6.10) L Hemoglobin 8.3 G/DL (14.2-18.0) L Hematocrit 27.2 % (42.0-52.0) L Mean Corpuscular Volume 97 FL (80-99) Mean Corpuscular Hemoglobin 29.8 PG (27.0-31.0) Mean Corpuscular Hemoglobin Concent 30.6 G/DL (32.0-36.0) L Red Cell Distribution Width 16.9 % (11.6-14.8) H Platelet Count 443 K/UL (150-450) Mean Platelet Volume 7.7 FL (6.5-10.1) Neutrophils (%) (Auto) 81.3 % (45.0-75.0) H Lymphocytes (%) (Auto) 12.2 % (20.0-45.0) L Monocytes (%) (Auto) 5.6 % (1.0-10.0) Eosinophils (%) (Auto) 0.5 % (0.0-3.0) Basophils (%) (Auto) 0.5 % (0.0-2.0) Sodium Level 142 MMOL/L (136-145) Potassium Level 3.8 MMOL/L (3.5-5.1) Chloride Level 108 MMOL/L (98-107) H Carbon Dioxide Level 27 MMOL/L (21-32) Blood Urea Nitrogen 21 mg/dL (7-18) H Creatinine 1.0 MG/DL (0.55-1.30) Estimat Glomerular Filtration Rate > 60 mL/min (>60) Glucose Level 123 MG/DL (74-106) H Calcium Level 7.9 MG/DL (8.5-10.1) L Phosphorus Level 2.1 MG/DL (2.5-4.9) L Magnesium Level 2.2 MG/DL (1.8-2.4) Total Bilirubin 0.4 MG/DL (0.2-1.0) Aspartate Amino Transf (AST/SGOT) 29 U/L (15-37) Alanine Aminotransferase (ALT/SGPT) 29 U/L (12-78) Alkaline Phosphatase 160 U/L (46-116) H Total Protein 6.2 G/DL (6.4-8.2) L Albumin 1.4 G/DL (3.4-5.0) L Globulin 4.8 g/dL Albumin/Globulin Ratio 0.3 (1.0-2.7) L Arterial Blood pH 7.506 (7.350-7.450) Arterial Blood Partial Pressure CO2 29.7 mmHg (35.0-45.0) L Arterial Blood Partial Pressure O2 182.9 mmHg (75.0-100.0) H Arterial Blood HCO3 23.0 mmol/L (22.0-26.0) Arterial Blood Oxygen Saturation 99.1 % (95-100) Arterial Blood Base Excess 0.2 (-2-2) Richard Test Positive Intake and Output 07/23/20 07/24/20 19:00 07:00 Intake Total 1340.83 ml 1323.125 ml Output Total 960 ml 850 ml Balance 380.83 ml 473.125 ml Free Water 5 ml 30 ml IV Total 1035.83 ml 1263.125 ml Tube Feeding 300 ml 30 ml Output Urine Total 960 ml 850 ml # Bowel Movements 1 Objective GENERAL: unresponsive, intubated, chronically ill-appearing. HEAD AND NECK: Pupils are equal and reactive to light. Anicteric. ET tube, N GT. NECK: Supple. No JVD. LUNGS: Mechanical breath sound, Decreased air in bases, Coarse breath sound. HEART: S1, S2. Regular rhythm. Distant heart sounds. No murmur or gallop. ABDOMEN: Soft, nondistended, nontender. Positive bowel sounds. EXTREMITIES: No cyanosis, clubbing, or edema. NEUROLOGIC: Very limited secondary to the patient's status, cannot follow commands. Assessment/Plan Assessment/Plan 1. Acute hypoxemic respiratory failure, most likely secondary to pneumonia and sepsis --> Intubated (07/17/2020). 2. Septic shock secondary to urinary tract infection and pneumonia. 3. pneumonia=MRSA 4. Acute kidney injury on chronic renal insufficiency. 5. Dehydration. 6. History of chronic congestive heart failure. 7. Diabetes type 2. 8. Dyslipidemia. 9. Hypertension. 10. Alzheimer's disease. 11. COVID 19 previous positive PLAN: 1. in ICU 2. Dr. Carreno,=Pulmonary Critical Care 3. Dr. Cho = infection disease 4. Monitor labs and cultures 5. antibiotics = Meropenem and Zyvox 6. Code status is full code. 7. DVT prophylaxis is heparin subcutaneous. 8. Resume Tube feeding @ 15 cc/hr, will increase 9. On Levophed drip CXR: Impression: Increased bilateral pleural effusions Unchanged bilateral interstitial and airspace infiltrates versus edema Decreased subcutaneous emphysema Ahsan Hodges MD Jul 24, 2020 14:16
--- NOTE | 2020-07-24 14:23 | NUR ---
NURSE NOTES: FiO2 titrated to 50 %
--- NOTE | 2020-07-24 16:00 | NUR ---
NURSE NOTES: Pt repositioned. Oral care provided. Afebrile. Levophed titrated up to 4 mcg/min for SBP 75-85.
--- NOTE | 2020-07-24 17:15 | Diagnostic Imaging Report ---
Indication: Dyspnea Technique: One view of the chest Comparison: 07/23/2020 Findings: Stable tube and line positions. Previously demonstrated left chest wall subcutaneous emphysema has improved considerably. There is evidence of increased bilateral pleural effusions. Interstitial and airspace parenchymal disease is unchanged bilaterally. Impression: Increased bilateral pleural effusions Unchanged bilateral interstitial and airspace infiltrates versus edema Decreased subcutaneous emphysema
--- NOTE | 2020-07-24 17:17 | NUR ---
CASE MANAGEMENT: REVIEW 07/24/2020 SI:SEPSIS. PNA. VS: T 99.1 HR 81 RR 16 B/P 107/65 SATS 99% ON MECH VENT FIO2 60 LABS: WBC 16.2 CL 108 BUN 21 GLU 123 CA 7.9 PHOS 2.1 ALP 160 SI;NS @ 50 ML/HR INSULIN ASPART SUBQ AC/HS FLOMAX PO BID LINEZOLID IV Q12H LEVOPHED PER PARAMETERS MEROPENEM IV Q8H ICU
--- NOTE | 2020-07-24 18:00 | NUR ---
NURSE NOTES: Levophed titrated up to 6 mcg/min at this time to maintain SBP>90
--- NOTE | 2020-07-24 19:00 | NUR ---
NURSE NOTES: Received patient and report from FLORES Todd. Patient is observed resting in bed and remains sedated. No pain noted upon assessment. Pt is currently orally intubated ett size 7.5 noted to be 25 @ lip. Pt appears to be tolerating current vent settings well. Vent settings as follows: AC 12 TV 600 FiO2 50% PEEP 0. Bilateral lower lobe breath sounds noted to be diminished upon auscultation, rhonchi noted in bilateral upper lobes. Pt noted to be SR on tele monitor with a HR of 84. R upper arm PICC line noted which remains asymptomatic, intact and patent. Central line dressing remains clean, dry and intact. Versed currently infusing at 2mg/hr, Levophed currently infusing at 6 mcg/min and 1/2 NS infusing at 50mL/hr. No s/sx of adverse effects noted. Active bowel sounds noted in all four quadrants; abdomen remains round, soft and non-tender. NGT noted to the R nare which remains intact and secured. Glucerna 1.2 continues to infuse at 10mL/hr as ordered, no residual at this time. Wiley catheter noted draining yellow urine to gravity. Diagnostics reviewed at bedside. Skin alterations noted. Fall, Aspiration and Skin precautions observed. Pt remains resting in bed; Bed remains in the lowest position with the safety wheels engaged, call light within reach, side rails up x3 and bed alarm activated. Will continue plan of care. Will continue to monitor.
--- NOTE | 2020-07-24 19:10 | NUR ---
NURSE HAND-OFF REPORT: Latest Vital Signs: Temperature 97.1 , Pulse 86 , B/P 124 /66 , Respiratory Rate 13 , O2 SAT 100 , Mechanical Ventilator, O2 Flow Rate . EKG Rhythm: Sinus Rhythm Rhythm change?: N MD Notified?: pt seen by Dr Shaka jacobo MD Response: n/a Latest Gonzalez Fall Score: 50 Fall Risk: High Risk Safety Measures: Call light Within Reach, Bed Alarm Zone 1, Side Rails Side Rails x3, Bed position Low and Locked. Fall Precautions: Yellow Socks Yellow Gown Door Sign Patient Fall Education Report given to FLORES Cruz.
[2020-07-24] MEDS: Dyna-Hex 2% Top Sol 2oz TOPIC SCH (20:15)
--- NOTE | 2020-07-24 20:15 | NUR ---
NURSE NOTES: Bedside assessment performed, assessed pt for pain with a FLACC score of 0 noted. VS obtained and SBP> 120 noted and Levophed subsequently titrated per order to 4mcg/min and Versed now on hold due to a RASS score -3 noted. Pt repositioned for comfort and safety. Fall, Aspiration and Skin precautions observed. Pt remains resting in bed; Bed remains in the lowest position with the safety wheels engaged, call light within reach, side rails up x3 and bed alarm activated. Will continue plan of care. Will continue to monitor.
--- NOTE | 2020-07-24 21:00 | NUR ---
NURSE NOTES: Pt provided with a CHG bed bath, oral care and linen change. Wound care performed per orders without incident. Bedside assessment performed, assessed pt for pain with a FLACC score of 0 noted. VS obtained and SBP of 87 noted and Levophed subsequently increased to 5mcg/min and Versed remains on hold with a RASS score -2 still noted. VS now noted to be stable. Pt repositioned for comfort and safety. Fall, Aspiration and Skin precautions observed. Pt remains resting in bed; Bed remains in the lowest position with the safety wheels engaged, call light within reach, side rails up x3 and bed alarm activated. Will continue plan of care. Will continue to monitor.
--- NOTE | 2020-07-24 23:00 | NUR ---
NURSE NOTES: Bedside assessment performed, assessed pt for pain with a FLACC score of 0 noted. VS obtained and SBP of 147 noted and Levophed subsequently titrated to 4mcg/min and Versed remains on hold with a RASS score -2 still noted. VS remain stable. Pt repositioned for comfort and safety. Fall, Aspiration and Skin precautions observed. Pt remains resting in bed; Bed remains in the lowest position with the safety wheels engaged, call light within reach, side rails up x3 and bed alarm activated. Will continue plan of care. Will continue to monitor.
[2020-07-25] VITALS (51 sets, daily range): BP systolic 80–145; BP diastolic 49–90
[2020-07-25] MEDS: Midodrine 10mg tab ORAL SCH ×3 (00:05→17:32)
--- NOTE | 2020-07-25 01:00 | NUR ---
NURSE NOTES: Bedside assessment performed, assessed pt for pain with a FLACC score of 0 noted. VS obtained and remain stable. RASS score of -1 noted and therefore Versed resumed and titrating. Pt repositioned for comfort and safety. Fall, Aspiration and Skin precautions observed. Pt remains resting in bed; Bed remains in the lowest position with the safety wheels engaged, call light within reach, side rails up x3 and bed alarm activated. Will continue plan of care. Will continue to monitor.
--- NOTE | 2020-07-25 03:00 | NUR ---
NURSE NOTES: Pt provided with a partial bed bath and oral care. ROM exercises performed per pt tolerance. Pt tolerated care well. Bedside assessment performed, assessed pt for pain with a FLACC score of 0 noted. VS obtained and remain stable. RASS score of -2 noted, see IV spreadsheet for titration hx. Pt repositioned for comfort and safety. Fall, Aspiration and Skin precautions observed. Pt remains resting in bed; Bed remains in the lowest position with the safety wheels engaged, call light within reach, side rails up x3 and bed alarm activated. Will continue plan of care. Will continue to monitor.
[2020-07-25] MEDS: Meropenem 1gm/NS 55ml IVPB SCH ×6 (04:52→19:58)
--- NOTE | 2020-07-25 05:00 | NUR ---
NURSE NOTES: Pt provided with a partial bed bath and oral care. ROM exercises performed per pt tolerance. Pt tolerated care well. VS obtained and remain stable. RASS score of -2 noted, see IV spreadsheet for titration hx. Pt repositioned for comfort and safety. Oral care provided as well as ROM exercises per pt tolerance. Fall, Aspiration and Skin precautions observed. Pt remains resting in bed; Bed remains in the lowest position with the safety wheels engaged, call light within reach, side rails up x3 and bed alarm activated. Will continue plan of care. Will continue to monitor.
[2020-07-25 05:23] LABS: BASOPHILS % (AUTO) 1.3 % (0.0-2.0); EOSINOPHILS % (AUTO) 1.4 % (0.0-3.0); HEMATOCRIT 27.6 % (42.0-52.0); HEMOGLOBIN 8.4 G/DL (14.2-18.0); LYMPHOCYTES % (AUTO) 9.3 % (20.0-45.0); MEAN CORPUSCULAR VOLUME 98 FL (80-99); MONOCYTES % (AUTO) 7.1 % (1.0-10.0); NEUTROPHILS % (AUTO) 80.9 % (45.0-75.0); PLATELET COUNT 398 K/UL (150-450); RED BLOOD COUNT 2.82 M/UL (4.70-6.10); RED CELL DISTRIBUTION WIDTH 16.9 % (11.6-14.8); WHITE BLOOD COUNT 10.8 K/UL (4.8-10.8)
[2020-07-25] MEDS: MIDAZOLAM FOR DRIP IV PRN (05:23)
[2020-07-25] MEDS: NS IV PRN (05:23)
[2020-07-25] MEDS: NovoLOG Insulin Flexpen SUBQ SCH ×4 (05:35→18:00)
[2020-07-25 05:38] LABS: ALANINE AMINOTRANSFERASE 28 U/L (12-78); ALBUMIN 1.4 G/DL (3.4-5.0); ALBUMIN/GLOBULIN RATIO 0.3 (1.0-2.7); ALKALINE PHOSPHATASE 144 U/L (46-116); ANION GAP 8 mmol/L (5-15); ASPARTATE AMINO TRANSFERASE 21 U/L (15-37); BILIRUBIN,TOTAL 0.3 MG/DL (0.2-1.0); BLOOD UREA NITROGEN 13 mg/dL (7-18); CALCIUM 7.8 MG/DL (8.5-10.1); CARBON DIOXIDE 24 MMOL/L (21-32); CHLORIDE 107 MMOL/L (98-107); CREATININE 0.7 MG/DL (0.55-1.30); POTASSIUM 4.2 MMOL/L (3.5-5.1); SODIUM 139 MMOL/L (136-145)
--- NOTE | 2020-07-25 07:14 | NUR ---
NURSE HAND-OFF REPORT: Latest Vital Signs: Temperature 97.8 , Pulse 62 , B/P 114 /57 , Respiratory Rate 12 , O2 SAT 100 , Mechanical Ventilator, O2 Flow Rate . Vital Sign Comment: EKG Rhythm: Sinus Rhythm Rhythm change?: N Notified?: N Response: N/A Latest Gonzalez Fall Score: 50 Fall Risk: High Risk Safety Measures: Call light Within Reach, Bed Alarm Zone 2, Side Rails Side Rails x3, Bed position Low and Locked. Fall Precautions: Yellow Socks Yellow Gown Door Sign Patient Fall Education Report given to FLORES Todd.
--- NOTE | 2020-07-25 07:15 | NUR ---
NURSE NOTES: Pt received from FLORES Cruz. Pt opens eyes when called by name - makes eye contact for 15 sec (RASS -1 without sedation). Gag reflex hypoactive. Pt withdraws to pain but unable to follow simple commands. Bilat pupils equal and round - 4mm with sluggish rxn to light. Pt is in SR to environmental monitoring specialist. Radial and dorsalis pedis pulses 2+. Afebrile at this time with cooling blanket on monitor mode. Cap refill 2-3 sec. Pt is orally intubated with a 7.5 ETT noted 25 cm at the lip with the following settings: AC 14 TV 600 FiO2 50% Peep 0 (ABGs to be drawn shortly- will f/u with RT). Upper lung rogers noted with rhonchi and lower lungs diminished upon auscultation. Pt has a right naris NGT running Glucerna 1.2 at 20 cc/hr without gastric residuals noted. F/C noted draining yellow, clear urine. Skin alterations noted. Pt has a JACQUIE PICC with dry and intact dressing running 1/2 NS at 50 cc/hr and levophed gtt at 4 mcg/min. Bed in lowest position, alarm on, side rails up x 2, call light within reach. Will continue to monitor. Addendum: 07/25/20 at 1438 by Peyton Parks RN Late entry: Pt also noted with 2+ pitting edema to bilat hands and 1+ to right arm. Abd is soft, round, and non-distended with active bowel sounds to all quadrants.
--- NOTE | 2020-07-25 08:00 | NUR ---
NURSE NOTES: Oral care provided. Pt repositioned. Addendum: 07/25/20 at 1340 by Peyton Parks RN Late entry: FiO2 titrated down to 40%
[2020-07-25] MEDS: Heparin 5000 units/ml inj SUBQ SCH ×2 (08:24→20:04)
[2020-07-25] MEDS: Tamsulosin 0.4mg cap ORAL SCH (08:24)
[2020-07-25] MEDS: Pantoprazole Inj IV SCH (08:24)
--- NOTE | 2020-07-25 09:01 | Pulmonolgy Critical Care Note ---
Critical Care - Asmt/Plan Problems: (1) Acute respiratory failure (2) Multifocal pneumonia (3) 2019 novel coronavirus disease (COVID-19) (4) Acute encephalopathy (5) Severe sepsis (6) Alzheimer's dementia (7) HTN (hypertension) (8) History of CVA (cerebrovascular accident) (9) BPH (benign prostatic hyperplasia) Assessment/Plan: on Levophed, FiO2 90% now Respiratory: monitor respiratory rate, adjust FIO2, CXR Cardiac: continue to monitor HR/BP Renal: F/U I&O, keep IV fluid, check electrolytes Infectious Disease: check cultures, continue antibiotics Gastrointestinal: continue feedings/current rate Endocrine: monitor blood sugar Hematologic: monitor H/H, transfuse if hgb<8.5 Neurologic: PRN Ativan Prophylaxis: Protonix, Heparin Time Spent (Minutes): 40 Notes 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, 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, 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 Discussed with: nurses, consultants, bilingual case managermanager of broadcast content - Objective Last 24 Hour Vital Signs Date Time Temp Pulse Resp B/P (MAP) Pulse Ox O2 Delivery O2 Flow Rate FiO2 07/25/20 07:22 60 12 50 07/25/20 07:00 62 12 114/57 (76) 100 07/25/20 06:30 60 14 07/25/20 06:00 61 13 102/60 (74) 100 07/25/20 05:45 14 Mechanical Ventilator 50 07/25/20 05:23 14 Mechanical Ventilator 50 07/25/20 05:00 14 Mechanical Ventilator 50 07/25/20 05:00 68 14 118/61 (80) 100 07/25/20 04:45 72 17 145/67 (93) 100 07/25/20 04:30 70 16 132/81 (98) 100 07/25/20 04:12 71 07/25/20 04:00 14 Mechanical Ventilator 50 07/25/20 04:00 97.8 69 15 136/66 (89) 100 07/25/20 04:00 Mechanical Ventilator Mechanical Ventilator 07/25/20 04:00 50 07/25/20 03:45 16 Mechanical Ventilator 50 07/25/20 03:44 79 18 50 07/25/20 03:30 17 07/25/20 03:00 81 18 141/76 (97) 99 07/25/20 02:45 18 Mechanical Ventilator 50 07/25/20 02:00 83 17 132/72 (92) 98 07/25/20 01:45 84 17 132/72 (92) 98 07/25/20 01:45 14 Mechanical Ventilator 50 07/25/20 01:30 85 16 134/66 (88) 100 07/25/20 01:30 16 Mechanical Ventilator 50 07/25/20 01:15 17 Mechanical Ventilator 50 07/25/20 01:15 85 17 127/63 (84) 100 07/25/20 01:00 14 Mechanical Ventilator 50 07/25/20 01:00 86 17 121/67 (85) 100 07/25/20 00:45 81 17 127/68 (87) 100 07/25/20 00:45 20 50 07/25/20 00:00 50 07/25/20 00:00 Mechanical Ventilator Mechanical Ventilator 07/25/20 00:00 98.1 74 12 98/59 (72) 100 07/24/20 23:10 85 14 50 07/24/20 23:07 82 07/24/20 23:00 85 19 119/69 (86) 100 07/24/20 22:47 83 19 144/84 (104) 100 07/24/20 22:00 86 12 125/67 (86) 99 07/24/20 21:15 83 12 100/52 (68) 99 07/24/20 21:00 82 12 87/52 (64) 99 07/24/20 20:15 81 18 112/66 (81) 100 07/24/20 20:15 18 50 07/24/20 20:00 96.8 81 24 123/64 (83) 100 07/24/20 20:00 Mechanical Ventilator Mechanical Ventilator 07/24/20 20:00 50 07/24/20 20:00 20 50 07/24/20 19:20 89 07/24/20 19:09 86 13 50 07/24/20 19:00 84 17 124/66 (85) 100 07/24/20 19:00 12 Mechanical Ventilator 50 07/24/20 18:45 85 18 121/66 (84) 99 07/24/20 18:30 84 12 117/63 (81) 100 07/24/20 18:15 84 12 110/60 (77) 98 07/24/20 18:03 104/57 07/24/20 18:00 82 12 104/57 (73) 98 07/24/20 18:00 12 Mechanical Ventilator 50 07/24/20 17:45 81 12 94/57 (69) 98 07/24/20 17:45 12 Mechanical Ventilator 50 07/24/20 17:30 12 Mechanical Ventilator 50 07/24/20 17:15 12 Mechanical Ventilator 50 07/24/20 17:10 80 12 50 07/24/20 17:00 12 Mechanical Ventilator 50 07/24/20 17:00 78 12 93/52 (66) 98 07/24/20 16:45 78 12 96/55 (69) 98 07/24/20 16:30 75 12 85/51 (62) 98 07/24/20 16:15 72 13 117/69 (85) 100 07/24/20 16:00 Mechanical Ventilator Mechanical Ventilator 07/24/20 16:00 70 07/24/20 16:00 12 Mechanical Ventilator 50 07/24/20 16:00 97.1 69 16 108/66 (80) 100 07/24/20 15:45 67 12 96/62 (73) 100 07/24/20 15:45 16 Mechanical Ventilator 50 07/24/20 15:30 68 13 85/55 (65) 100 07/24/20 15:15 69 18 91/58 (69) 100 07/24/20 15:11 72 12 50 07/24/20 15:00 14 Mechanical Ventilator 50 07/24/20 15:00 72 19 101/64 (76) 99 07/24/20 14:45 73 21 113/68 (83) 99 07/24/20 14:45 12 Mechanical Ventilator 50 07/24/20 14:30 78 19 104/62 (76) 98 07/24/20 14:23 50 07/24/20 14:15 80 20 109/64 (79) 99 07/24/20 14:00 16 Mechanical Ventilator 60 07/24/20 14:00 81 17 107/65 (79) 99 07/24/20 13:45 82 11 128/68 (88) 98 07/24/20 13:45 14 Mechanical Ventilator 60 07/24/20 13:30 80 17 122/69 (86) 100 07/24/20 13:10 80 16 60 07/24/20 13:00 16 Mechanical Ventilator 60 07/24/20 13:00 81 19 121/63 (82) 100 07/24/20 12:30 78 12 101/59 (73) 100 07/24/20 12:00 Mechanical Ventilator Mechanical Ventilator 07/24/20 12:00 99.1 78 13 95/62 (73) 100 07/24/20 12:00 79 07/24/20 12:00 12 Mechanical Ventilator 60 07/24/20 12:00 60 07/24/20 11:30 77 14 97/63 (74) 99 07/24/20 11:00 72 14 99/58 (72) 100 07/24/20 11:00 14 Mechanical Ventilator 90 07/24/20 11:00 79 12 60 07/24/20 10:45 72 14 97/58 (71) 100 07/24/20 10:30 69 14 93/57 (69) 100 07/24/20 10:30 14 Mechanical Ventilator 90 07/24/20 10:15 72 14 94/58 (70) 100 07/24/20 10:00 78 15 106/60 (75) 100 07/24/20 10:00 14 Mechanical Ventilator 90 07/24/20 09:45 74 14 92/53 (66) 100 07/24/20 09:30 84 14 96/56 (69) 100 07/24/20 09:30 14 Mechanical Ventilator 90 07/24/20 09:25 71 14 90 07/24/20 09:15 83 15 121/66 (84) 100 07/24/20 09:02 14 Mechanical Ventilator 90 07/24/20 09:00 14 Mechanical Ventilator 90 07/24/20 09:00 79 14 133/70 (91) 100 Status: awake Condition: critical HEENT: atraumatic, normocephalic Neck: full ROM Lungs: rales, rhonchi Heart: HR/BP stable Abdomen: soft, non-tender Extremities: no C/C/E Accucheck: 128 Critical Care - Subjective ROS Limited/Unobtainable: Yes Condition: critical EKG Rhythm: Sinus Rhythm FI02: 50 Vent Support Breath Rate: 12 Vent Support Mode: AC Vent Tidal Volume: 600 Sputum Amount: Moderate PEEP: 0.0 PIP: 20 Tube Feeding Amount: 20 I&O: Intake and Output 07/24/20 07/25/20 19:00 07:00 Intake Total 1831.914 ml 1428.7500 ml Output Total 1140 ml 645 ml Balance 691.914 ml 783.7500 ml Free Water 40 ml 70 ml IV Total 1671.914 ml 1178.7500 ml Tube Feeding 120 ml 180 ml Output Urine Total 1140 ml 645 ml CXR: Increased bilateral pleural effusions Unchanged bilateral interstitial and airspace infiltrates versus edema Decreased subcutaneous emphysema ET-Tube: 7.5 ET Position: 25 Labs: Laboratory Tests Test 07/24/20 10:27 07/25/20 00:12 07/25/20 04:30 07/25/20 04:46 Arterial Blood pH 7.506 (7.350-7.450) Arterial Blood Partial Pressure CO2 29.7 mmHg (35.0-45.0) L Arterial Blood Partial Pressure O2 182.9 mmHg (75.0-100.0) H Arterial Blood HCO3 23.0 mmol/L (22.0-26.0) Arterial Blood Oxygen Saturation 99.1 % (95-100) Arterial Blood Base Excess 0.2 (-2-2) Richard Test Positive POC Whole Blood Glucose Pending 128 MG/DL (74-106) H White Blood Count 10.8 K/UL (4.8-10.8) Red Blood Count 2.82 M/UL (4.70-6.10) L Hemoglobin 8.4 G/DL (14.2-18.0) L Hematocrit 27.6 % (42.0-52.0) L Mean Corpuscular Volume 98 FL (80-99) Mean Corpuscular Hemoglobin 29.9 PG (27.0-31.0) Mean Corpuscular Hemoglobin Concent 30.5 G/DL (32.0-36.0) L Red Cell Distribution Width 16.9 % (11.6-14.8) H Platelet Count 398 K/UL (150-450) Mean Platelet Volume 7.7 FL (6.5-10.1) Neutrophils (%) (Auto) 80.9 % (45.0-75.0) H Lymphocytes (%) (Auto) 9.3 % (20.0-45.0) L Monocytes (%) (Auto) 7.1 % (1.0-10.0) Eosinophils (%) (Auto) 1.4 % (0.0-3.0) Basophils (%) (Auto) 1.3 % (0.0-2.0) Sodium Level 139 MMOL/L (136-145) Potassium Level 4.2 MMOL/L (3.5-5.1) Chloride Level 107 MMOL/L (98-107) Carbon Dioxide Level 24 MMOL/L (21-32) Anion Gap 8 mmol/L (5-15) Blood Urea Nitrogen 13 mg/dL (7-18) Creatinine 0.7 MG/DL (0.55-1.30) Estimat Glomerular Filtration Rate > 60 mL/min (>60) Glucose Level 135 MG/DL (74-106) H Calcium Level 7.8 MG/DL (8.5-10.1) L Total Bilirubin 0.3 MG/DL (0.2-1.0) Aspartate Amino Transf (AST/SGOT) 21 U/L (15-37) Alanine Aminotransferase (ALT/SGPT) 28 U/L (12-78) Alkaline Phosphatase 144 U/L (46-116) H Total Protein 6.3 G/DL (6.4-8.2) L Albumin 1.4 G/DL (3.4-5.0) L Globulin 4.9 g/dL Albumin/Globulin Ratio 0.3 (1.0-2.7) L Kya Carreno MD Jul 25, 2020 09:01
--- NOTE | 2020-07-25 10:00 | NUR ---
NURSE NOTES: Pt seen by Dr Carreno. Weaning deferred at this time until pt is more alert (per Dr Carreno). Addendum: 07/25/20 at 1340 by Peyton Parks RN Late entry: ABG results relayed to Dr Carreno
--- NOTE | 2020-07-25 10:07 | NUR ---
RESPIRATORY NOTE: Pt received on AC vent settings: 12, 600, 50%, +0. HR and SpO2 within normal limits. B/S bilateral rhonchi, suctioned moderate amount of thick white to pale yellow secretions. Vent plugged into red outlet, alarms are on and audible. Ambu bag at bedside. No resp distress noted at time. Will continue to monitor.
--- NOTE | 2020-07-25 11:00 | NUR ---
NURSE NOTES: Pt seen by Dr Connors.
--- NOTE | 2020-07-25 12:00 | NUR ---
NURSE NOTES: Pt repositioned. Oral care provided. Afebrile. No distress noted
[2020-07-25] MEDS: Norepinephrine 4mg/NS Premix 250 ML IV SCH (12:34)
--- NOTE | 2020-07-25 13:01 | Nephrology Progress Note ---
Assessment/Plan Problem List: (1) Dehydration (2) MELANIE (acute kidney injury) (3) Renal failure (ARF), acute on chronic (4) Hypoxia (5) Acute encephalopathy (6) Electrolyte imbalance Assessment 79-year-old male is admitted with acute hypoxic respiratory failure most likely secondary to pneumonia and sepsis, UTI. Acute on chronic renal failure Dehydration Electrolyte imbalances, hypernatremia Hypoalbuminemia Diabetes type 2 History of congestive heart failure Hypertension Hyperlipemia Alzheimer's Previous COVID-19 infection in May 2020 Plan July 25: Seen in ICU. Discussed with FLORES Holliday. Flomax discontinued. Labs reviewed. Stable from renal standpoint of view. July 24: Seen in ICU. Discussed with FLORES Holliday. Remains on pressor. Electrolyte abnormalities noted and addressed. Continue per consultants. Patient remains full code. July 23: Seen in ICU. Discussed with FLORES Barrera. Blood pressure remains a little requiring pressors. Labs reviewed. Stable renal parameters. Continue per consultants. July 22: Remains intubated. Full code. Blood pressure borderline low. Will increase midodrine dose. Discussed with RN. Continue to monitor renal parameters and electrolytes. July 21: Intubated. Full code. Labs reviewed. Stable from renal standpoint of view. Continue per consultants. July 20: Remains intubated. Full code. Labs reviewed. Electrolytes within normal limit. Continue per consultants. July 19: In ICU. Remains intubated on ventilator. Remains full code. Low potassium addressed. Blood pressure fluctuating. Continue per consultants. July 18: Patient in ICU. Intubated on ventilator. On 6 mics of Levophed. Will give 100 cc albumin 25%. K-Phos IV ordered. Continue per consultants. Continue monitor renal parameters and electrolytes. July 17: Status unchanged. Transfer to [facility] for seizure. Stable from renal standpoint to view. Continue per consultants. July 16: Status quo. Labs reviewed. Renal parameters stable. Continue per consultants. July 15: On nonrebreather mask. Labs reviewed. Renal parameters stable.Continue per regenerator operator. Clinically unchanged. July 14: On nonrebreather mask. Inflammatory markers gradually declining. Renal parameters stable. Continue per pulmonary. July 13: Remains on nonrebreather mask. Inflammatory markers remain elevated. Renal parameters somewhat stable. Continue per pulmonary and ID. Remains full code. July 12: Patient on nonrebreather mask. Labs noted. Serum creatinine down to 1.3. Continue per consultants. July 11: Patient on nonrebreather mask. Transfer to telemetry when seen this morning. Labs noted. Continue per consultants. Serum creatinine erin to 1.7. Continue to monitor renal parameters. Continue to monitor vancomycin level July 10: Patient is not doing well clinically. Mild respiratory distress. ABG noted. Somewhat hypoxic. CBC and chemistry panel ordered. Discussed with FLORES Cho. Will defer to pulmonary management to specialist. Continue per ID. Renal parameters remained stable as of July 09. July 09: Labs reviewed. Renal parameters stable. Continue per consultants. July 08: Labs reviewed. Potassium via NG tube ordered. IV fluids stopped. Continue per consultants. July 07: Labs reviewed. Low potassium and low phosphorus replaced. Continue per consultants. Remains stable from renal standpoint of view. July 06: Patient remains n.p.o. IV fluid down to 50 cc an hour. Potassium supplement intravenously ordered. Continue per consultants. Previously: Patient is n.p.o., will continue on IV fluid of D5W 75 cc an hour We will monitor electrolytes and renal parameters Avoid nephrotoxic's Start p.o. when he clears by speech therapist, meanwhile aspiration precautions Keep the blood pressure and blood sugar in check Per orders Subjective ROS Limited/Unobtainable: Yes Objective Objective Last 24 Hour Vital Signs Date Time Temp Pulse Resp B/P (MAP) Pulse Ox O2 Delivery O2 Flow Rate FiO2 07/25/20 12:34 83/52 07/25/20 12:00 40 07/25/20 12:00 Mechanical Ventilator Mechanical Ventilator 07/25/20 12:00 68 07/25/20 12:00 67 12 97/53 (68) 100 07/25/20 11:30 68 12 81/53 (62) 100 07/25/20 11:00 67 12 109/60 (76) 100 07/25/20 10:59 62 12 40 07/25/20 10:30 66 12 103/60 (74) 100 07/25/20 10:15 66 12 88/54 (65) 100 07/25/20 10:00 65 12 86/49 (61) 100 07/25/20 09:30 65 12 100/53 (69) 100 07/25/20 09:00 65 15 108/55 (72) 100 07/25/20 08:30 60 12 91/54 (66) 100 07/25/20 08:00 61 07/25/20 08:00 97.2 63 12 95/52 (66) 100 07/25/20 08:00 Mechanical Ventilator Mechanical Ventilator 07/25/20 08:00 40 07/25/20 07:30 60 12 94/50 (65) 100 07/25/20 07:22 60 12 50 07/25/20 07:00 62 12 114/57 (76) 100 07/25/20 06:30 60 14 07/25/20 06:00 61 13 102/60 (74) 100 07/25/20 05:45 14 Mechanical Ventilator 50 07/25/20 05:23 14 Mechanical Ventilator 50 07/25/20 05:00 14 Mechanical Ventilator 50 07/25/20 05:00 68 14 118/61 (80) 100 07/25/20 04:45 72 17 145/67 (93) 100 07/25/20 04:30 70 16 132/81 (98) 100 07/25/20 04:12 71 07/25/20 04:00 14 Mechanical Ventilator 50 07/25/20 04:00 97.8 69 15 136/66 (89) 100 07/25/20 04:00 Mechanical Ventilator Mechanical Ventilator 07/25/20 04:00 50 07/25/20 03:45 16 Mechanical Ventilator 50 07/25/20 03:44 79 18 50 07/25/20 03:30 17 07/25/20 03:00 81 18 141/76 (97) 99 07/25/20 02:45 18 Mechanical Ventilator 50 07/25/20 02:00 83 17 132/72 (92) 98 07/25/20 01:45 84 17 132/72 (92) 98 07/25/20 01:45 14 Mechanical Ventilator 50 07/25/20 01:30 85 16 134/66 (88) 100 07/25/20 01:30 16 Mechanical Ventilator 50 07/25/20 01:15 17 Mechanical Ventilator 50 07/25/20 01:15 85 17 127/63 (84) 100 07/25/20 01:00 14 Mechanical Ventilator 50 07/25/20 01:00 86 17 121/67 (85) 100 07/25/20 00:45 81 17 127/68 (87) 100 11/14/20 00:45 20 50 07/25/20 00:00 50 07/25/20 00:00 Mechanical Ventilator Mechanical Ventilator 07/25/20 00:00 98.1 74 12 98/59 (72) 100 07/24/20 23:10 85 14 50 07/24/20 23:07 82 07/24/20 23:00 85 19 119/69 (86) 100 07/24/20 22:47 83 19 144/84 (104) 100 07/24/20 22:00 86 12 125/67 (86) 99 07/24/20 21:15 83 12 100/52 (68) 99 07/24/20 21:00 82 12 87/52 (64) 99 07/24/20 20:15 81 18 112/66 (81) 100 07/24/20 20:15 18 50 07/24/20 20:00 96.8 81 24 123/64 (83) 100 07/24/20 20:00 Mechanical Ventilator Mechanical Ventilator 07/24/20 20:00 50 07/24/20 20:00 20 50 07/24/20 19:20 89 07/24/20 19:09 86 13 50 07/24/20 19:00 84 17 124/66 (85) 100 07/24/20 19:00 12 Mechanical Ventilator 50 07/24/20 18:45 85 18 121/66 (84) 99 07/24/20 18:30 84 12 117/63 (81) 100 07/24/20 18:15 84 12 110/60 (77) 98 07/24/20 18:03 104/57 07/24/20 18:00 82 12 104/57 (73) 98 07/24/20 18:00 12 Mechanical Ventilator 50 07/24/20 17:45 81 12 94/57 (69) 98 07/24/20 17:45 12 Mechanical Ventilator 50 07/24/20 17:30 12 Mechanical Ventilator 50 07/24/20 17:15 12 Mechanical Ventilator 50 07/24/20 17:10 80 12 50 07/24/20 17:00 12 Mechanical Ventilator 50 07/24/20 17:00 78 12 93/52 (66) 98 07/24/20 16:45 78 12 96/55 (69) 98 07/24/20 16:30 75 12 85/51 (62) 98 07/24/20 16:15 72 13 117/69 (85) 100 07/24/20 16:00 Mechanical Ventilator Mechanical Ventilator 07/24/20 16:00 70 07/24/20 16:00 12 Mechanical Ventilator 50 07/24/20 16:00 97.1 69 16 108/66 (80) 100 07/24/20 15:45 67 12 96/62 (73) 100 07/24/20 15:45 16 Mechanical Ventilator 50 07/24/20 15:30 68 13 85/55 (65) 100 07/24/20 15:15 69 18 91/58 (69) 100 07/24/20 15:11 72 12 50 07/24/20 15:00 14 Mechanical Ventilator 50 07/24/20 15:00 72 19 101/64 (76) 99 07/24/20 14:45 73 21 113/68 (83) 99 07/24/20 14:45 12 Mechanical Ventilator 50 07/24/20 14:30 78 19 104/62 (76) 98 07/24/20 14:23 50 07/24/20 14:15 80 20 109/64 (79) 99 07/24/20 14:00 16 Mechanical Ventilator 60 07/24/20 14:00 81 17 107/65 (79) 99 07/24/20 13:45 82 11 128/68 (88) 98 07/24/20 13:45 14 Mechanical Ventilator 60 07/24/20 13:30 80 17 122/69 (86) 100 07/24/20 13:10 80 16 60 07/24/20 13:00 16 Mechanical Ventilator 60 07/24/20 13:00 81 19 121/63 (82) 100 Intake and Output 0 07/24/20 07/25/20 19:00 07:00 Intake Total 1831.914 ml 1428.7500 ml Output Total 1140 ml 645 ml Balance 691.914 ml 783.7500 ml Free Water 40 ml 70 ml IV Total 1671.914 ml 1178.7500 ml Tube Feeding 120 ml 180 ml Output Urine Total 1140 ml 645 ml Laboratory Tests 07/25/20 00:12: POC Whole Blood Glucose [Pending] 07/25/20 04:30: White Blood Count 10.8, Red Blood Count 2.82L, Hemoglobin 8.4L, Hematocrit 27.6L , Mean Corpuscular Volume 98, Mean Corpuscular Hemoglobin 29.9, Mean Corpuscular Hemoglobin Concent 30.5L, Red Cell Distribution Width 16.9H, Platelet Count 398, Mean Platelet Volume 7.7, Neutrophils (%) (Auto) 80.9H, Lymphocytes (%) (Auto) 9.3L, Monocytes (%) (Auto) 7.1, Eosinophils (%) (Auto) 1.4, Basophils (%) (Auto) 1.3, Sodium Level 139, Potassium Level 4.2, Chloride Level 107, Carbon Dioxide Level 24, Anion Gap 8, Blood Urea Nitrogen 13, Creatinine 0.7, Estimat Glomerular Filtration Rate > 60, Glucose Level 135H, Calcium Level 7.8L, Total Bilirubin 0.3, Aspartate Amino Transf (AST/SGOT) 21, Alanine Aminotransferase (ALT/SGPT) 28, Alkaline Phosphatase 144H, Total Protein 6.3L, Albumin 1.4L, Globulin 4.9, Albumin/Globulin Ratio 0.3L 07/25/20 04:46: POC Whole Blood Glucose 128H 07/25/20 09:26: Arterial Blood pH 7.422, Arterial Blood Partial Pressure CO2 38.2, Arterial Blood Partial Pressure O2 119.2H, Arterial Blood HCO3 24.3, Arterial Blood Oxygen Saturation 97.9, Arterial Blood Base Excess 0, Richard Test Positive Height (Feet): 5 Height (Inches): 4.00 Weight (Pounds): 130 General Appearance: no apparent distress EENT: other - Intubated on ventilator Cardiovascular: normal rate Respiratory/Chest: decreased breath sounds Abdomen: distended Tino Connors MD Jul 25, 2020 13:01
--- NOTE | 2020-07-25 13:41 | NUR ---
NURSE NOTES: Pt seen by Dr Matt and Dr Davenport
--- NOTE | 2020-07-25 13:42 | Infectious Diseases Prog Note ---
Assessment/Plan 79yo M with: Respiratory code 2ry to mucus plug 07/23 SEptic Shock- -recurrent Fever,r ecurrent, low grade;SP Leukocytosis ;recurrent ; increased Acute hypoxic resp failure, on NRB mask> 4l NC; back on NRB, desaturation 07/09 > intubated 07/17 Pneumonia- >HAP hx of COVID19 PNA 05/20/20 --07/21 CXR: Bilateral infiltrates in a peribronchovascular distribution are unchanged. Left pleural effusion is unchanged. --07/19 CXR: Persistent bilateral patchy pulmonary opacities, most prominent in the left lower lung. --07/18 ucx neg sp cx MRSA (colonizer at this point) Bcx Neg --07/13 Bcx Neg 07/10 Sp cx MRSA (Vancomycin APOLONIA 1), ESBL E.coli 07/03 BCx NTD UA - WBC, UCx Neg 07/03 COVID rapid neg; 07/06 rapid COVID PCR + (from prior infection)- not new infection Flu A/B neg CXR: L pna Resp cx MRSA Denis on CKD, improving SNF resident ([facility]) Non-verbal VRE and MRSA colonized Plan: Meropenem #13/14 for ESBL PNA contt ZYvoz # 2 for MRSA coverage given mucus plug and worsening hemodynamics -07/21 SP Micafungin #4 -07/17 SP IV Vancomycin #15 -07/13 SP Zosyn #4 -07/06 SP Cefepime #4 -07/04 SP Flagyl # Monitor CBC/CMP Monitor resp status Monitor temp curve and hemodynamics repeat ovalle cultures D/w RN Thank you for this consult. [facility] will continue to follow. Subjective Allergies: Coded Allergies: No Known Allergies (Unverified , 04/30/12) afebrile in ICU Objective Last 24 Hour Vital Signs Date Time Temp Pulse Resp B/P (MAP) Pulse Ox O2 Delivery O2 Flow Rate FiO2 07/25/20 13:00 66 12 144/69 (94) 100 07/25/20 12:45 67 14 127/63 (84) 100 07/25/20 12:39 73 12 91/53 (66) 100 07/25/20 12:34 83/52 07/25/20 12:30 67 12 90/52 (65) 100 07/25/20 12:15 97.8 67 12 97/53 (68) 100 07/25/20 12:00 40 07/25/20 12:00 Mechanical Ventilator Mechanical Ventilator 07/25/20 12:00 68 07/25/20 12:00 67 12 97/53 (68) 100 07/25/20 11:30 68 12 81/53 (62) 100 07/25/20 11:00 67 12 109/60 (76) 100 07/25/20 10:59 62 12 40 07/25/20 10:30 66 12 103/60 (74) 100 07/25/20 10:15 66 12 88/54 (65) 100 07/25/20 10:00 65 12 86/49 (61) 100 07/25/20 09:30 65 12 100/53 (69) 100 07/25/20 09:00 65 15 108/55 (72) 100 07/25/20 08:30 60 12 91/54 (66) 100 07/25/20 08:00 61 07/25/20 08:00 97.2 63 12 95/52 (66) 100 07/25/20 08:00 Mechanical Ventilator Mechanical Ventilator 07/25/20 08:00 40 07/25/20 07:30 60 12 94/50 (65) 100 07/25/20 07:22 60 12 50 07/25/20 07:00 62 12 114/57 (76) 100 07/25/20 06:30 60 14 07/25/20 06:00 61 13 102/60 (74) 100 07/25/20 05:45 14 Mechanical Ventilator 50 07/25/20 05:23 14 Mechanical Ventilator 50 07/25/20 05:00 14 Mechanical Ventilator 50 07/25/20 05:00 68 14 118/61 (80) 100 07/25/20 04:45 72 17 145/67 (93) 100 07/25/20 04:30 70 16 132/81 (98) 100 07/25/20 04:12 71 07/25/20 04:00 14 Mechanical Ventilator 50 07/25/20 04:00 97.8 69 15 136/66 (89) 100 07/25/20 04:00 Mechanical Ventilator Mechanical Ventilator 07/25/20 04:00 50 07/25/20 03:45 16 Mechanical Ventilator 50 07/25/20 03:44 79 18 50 07/25/20 03:30 17 07/25/20 03:00 81 18 141/76 (97) 99 07/25/20 02:45 18 Mechanical Ventilator 50 07/25/20 02:00 83 17 132/72 (92) 98 07/25/20 01:45 84 17 132/72 (92) 98 07/25/20 01:45 14 Mechanical Ventilator 50 07/25/20 01:30 85 16 134/66 (88) 100 07/25/20 01:30 16 Mechanical Ventilator 50 07/25/20 01:15 17 Mechanical Ventilator 50 07/25/20 01:15 85 17 127/63 (84) 100 07/25/20 01:00 14 Mechanical Ventilator 50 07/25/20 01:00 86 17 121/67 (85) 100 07/25/20 00:45 81 17 127/68 (87) 100 07/25/20 00:45 20 50 07/25/20 00:00 50 07/25/20 00:00 Mechanical Ventilator Mechanical Ventilator 07/25/20 00:00 98.1 74 12 98/59 (72) 100 07/24/20 23:10 85 14 50 07/24/20 23:07 82 07/24/20 23:00 85 19 119/69 (86) 100 07/24/20 22:47 83 19 144/84 (104) 100 07/24/20 22:00 86 12 125/67 (86) 99 07/24/20 21:15 83 12 100/52 (68) 99 07/24/20 21:00 82 12 87/52 (64) 99 07/24/20 20:15 81 18 112/66 (81) 100 07/24/20 20:15 18 50 07/24/20 20:00 96.8 81 24 123/64 (83) 100 07/24/20 20:00 Mechanical Ventilator Mechanical Ventilator 07/24/20 20:00 50 07/24/20 20:00 20 50 07/24/20 19:20 89 07/24/20 19:09 86 13 50 07/24/20 19:00 84 17 124/66 (85) 100 07/24/20 19:00 12 Mechanical Ventilator 50 07/24/20 18:45 85 18 121/66 (84) 99 07/24/20 18:30 84 12 117/63 (81) 100 07/24/20 18:15 84 12 110/60 (77) 98 07/24/20 18:03 104/57 07/24/20 18:00 82 12 104/57 (73) 98 07/24/20 18:00 12 Mechanical Ventilator 50 07/24/20 17:45 81 12 94/57 (69) 98 07/24/20 17:45 12 Mechanical Ventilator 50 07/24/20 17:30 12 Mechanical Ventilator 50 07/24/20 17:15 12 Mechanical Ventilator 50 07/24/20 17:10 80 12 50 07/24/20 17:00 12 Mechanical Ventilator 50 07/24/20 17:00 78 12 93/52 (66) 98 07/24/20 16:45 78 12 96/55 (69) 98 07/24/20 16:30 75 12 85/51 (62) 98 07/24/20 16:15 72 13 117/69 (85) 100 07/24/20 16:00 Mechanical Ventilator Mechanical Ventilator 07/24/20 16:00 70 07/24/20 16:00 12 Mechanical Ventilator 50 07/24/20 16:00 97.1 69 16 108/66 (80) 100 07/24/20 15:45 67 12 96/62 (73) 100 07/24/20 15:45 16 Mechanical Ventilator 50 07/24/20 15:30 68 13 85/55 (65) 100 07/24/20 15:15 69 18 91/58 (69) 100 07/24/20 15:11 72 12 50 07/24/20 15:00 14 Mechanical Ventilator 50 07/24/20 15:00 72 19 101/64 (76) 99 07/24/20 14:45 73 21 113/68 (83) 99 07/24/20 14:45 12 Mechanical Ventilator 50 07/24/20 14:30 78 19 104/62 (76) 98 07/24/20 14:23 50 07/24/20 14:15 80 20 109/64 (79) 99 07/24/20 14:00 16 Mechanical Ventilator 60 07/24/20 14:00 81 17 107/65 (79) 99 07/24/20 13:45 82 11 128/68 (88) 98 07/24/20 13:45 14 Mechanical Ventilator 60 07/24/20 13:30 80 17 122/69 (86) 100 Height (Feet): 5 Height (Inches): 4.00 Weight (Pounds): 130 HEENT: atraumatic Respiratory/Chest: no respiratory distress Cardiovascular: normal rate Abdomen: no organomegaly Laboratory Tests Test 07/25/20 00:12 07/25/20 04:30 07/25/20 04:46 07/25/20 09:26 POC Whole Blood Glucose Pending 128 MG/DL (74-106) H White Blood Count 10.8 K/UL (4.8-10.8) Red Blood Count 2.82 M/UL (4.70-6.10) L Hemoglobin 8.4 G/DL (14.2-18.0) L Hematocrit 27.6 % (42.0-52.0) L Mean Corpuscular Volume 98 FL (80-99) Mean Corpuscular Hemoglobin 29.9 PG (27.0-31.0) Mean Corpuscular Hemoglobin Concent 30.5 G/DL (32.0-36.0) L Red Cell Distribution Width 16.9 % (11.6-14.8) H Platelet Count 398 K/UL (150-450) Mean Platelet Volume 7.7 FL (6.5-10.1) Neutrophils (%) (Auto) 80.9 % (45.0-75.0) H Lymphocytes (%) (Auto) 9.3 % (20.0-45.0) L Monocytes (%) (Auto) 7.1 % (1.0-10.0) Eosinophils (%) (Auto) 1.4 % (0.0-3.0) Basophils (%) (Auto) 1.3 % (0.0-2.0) Sodium Level 139 MMOL/L (136-145) Potassium Level 4.2 MMOL/L (3.5-5.1) Chloride Level 107 MMOL/L (98-107) Carbon Dioxide Level 24 MMOL/L (21-32) Anion Gap 8 mmol/L (5-15) Blood Urea Nitrogen 13 mg/dL (7-18) Creatinine 0.7 MG/DL (0.55-1.30) Estimat Glomerular Filtration Rate > 60 mL/min (>60) Glucose Level 135 MG/DL (74-106) H Calcium Level 7.8 MG/DL (8.5-10.1) L Total Bilirubin 0.3 MG/DL (0.2-1.0) Aspartate Amino Transf (AST/SGOT) 21 U/L (15-37) Alanine Aminotransferase (ALT/SGPT) 28 U/L (12-78) Alkaline Phosphatase 144 U/L (46-116) H Total Protein 6.3 G/DL (6.4-8.2) L Albumin 1.4 G/DL (3.4-5.0) L Globulin 4.9 g/dL Albumin/Globulin Ratio 0.3 (1.0-2.7) L Arterial Blood pH 7.422 (7.350-7.450) Arterial Blood Partial Pressure CO2 38.2 mmHg (35.0-45.0) Arterial Blood Partial Pressure O2 119.2 mmHg (75.0-100.0) H Arterial Blood HCO3 24.3 mmol/L (22.0-26.0) Arterial Blood Oxygen Saturation 97.9 % (95-100) Arterial Blood Base Excess 0 (-2-2) Richard Test Positive Current Medications Medications (Trade) Dose Ordered Sig/Ankush Route PRN Reason Start Time Stop Time Status Last Admin Dose Admin Acetaminophen (Tylenol) 650 mg Q4H PRN ORAL Temp >100.5 07/03/20 20:30 08/02/20 20:29 07/16/20 22:39 Chlorhexidine Gluconate (Darcy-Hex 2%) 1 applic DAILY@2000 TOPIC 07/17/20 20:00 10/15/20 19:59 07/24/20 20:15 Dextrose (Dextrose 50%) 50 ml Q30M PRN IV Hypoglycemia 07/03/20 22:45 10/01/20 22:44 Heparin Sodium (Porcine) (Heparin 5000 units/ml) 5,000 units EVERY 12 HOURS SUBQ 07/03/20 21:00 08/17/20 20:59 07/25/20 08:24 Insulin Aspart (NovoLOG) EVERY 6 HOURS SUBQ 07/13/20 06:00 10/02/20 06:29 07/22/20 13:21 Linezolid 300 ml @ 300 mls/hr Q12HR IVPB 07/24/20 12:00 07/31/20 11:59 07/25/20 08:24 Lorazepam (Ativan 2mg/ml 1ml) 2 mg Q4H PRN IV For Anxiety 07/21/20 13:45 07/28/20 13:44 07/23/20 19:20 Meropenem 1 gm/ Sodium Chloride 55 ml @ 110 mls/hr Q8HR@0400,1200,2000 IVPB 07/22/20 12:00 07/27/20 11:59 07/25/20 12:33 Midazolam HCl 100 mg/Sodium Chloride 200 ml @ 0 mls/hr Q24H PRN IV Agitation 07/24/20 08:30 07/26/20 08:29 07/25/20 05:23 Midodrine (Pro-Amatine) 10 mg Q8H ORAL 07/22/20 17:00 10/20/20 16:59 07/25/20 08:24 Morphine Sulfate (Morphine Sulfate) 2 mg Q6H PRN IVP moderate pain 07/21/20 13:45 07/28/20 13:44 Nitroglycerin (Ntg) 0.4 mg Q5M PRN SL Prn Chest Pain 07/03/20 20:30 08/02/20 20:29 Norepinephrine Bitartrate 250 ml @ 0 mls/hr Q24H IV 07/23/20 13:30 07/26/20 15:44 07/25/20 12:34 Ondansetron HCl (Zofran) 4 mg Q6H PRN IVP Nausea & Vomiting 07/03/20 20:30 08/02/20 20:29 Pantoprazole (Protonix) 40 mg DAILY IV 07/18/20 09:00 08/17/20 08:59 07/25/20 08:24 Polyethylene Glycol (Miralax) 17 gm DAILYPRN PRN ORAL Constipation 07/03/20 20:30 08/02/20 20:29 Promethazine HCl/ Codeine (Phenergan with Codeine) 5 ml Q4H PRN ORAL For Cough 07/03/20 20:30 08/02/20 20:29 Sodium Chloride 1,000 ml @ 50 mls/hr Q20H IV 07/17/20 16:00 08/16/20 15:59 07/25/20 00:05 Richard Davenport MD Jul 25, 2020 13:42
--- NOTE | 2020-07-25 14:00 | NUR ---
NURSE NOTES: Sputum, urine, and blood cultures sent down to lab for processing.
--- NOTE | 2020-07-25 14:00 | Cardiac Electrophysiology PN ---
Assessment/Plan Assessment/Plan 1. Accelerated junctional rhythm. Ruled out for CT Echo showed ejection fraction of 55%. 2. Long run of 31 beats of Nonsustained VT on 07/14/2020. Will need cardiac cath after stabilization. 3. Aníbal 30, Asystole due to resp failure. S/P Code 4. Respiratory failure, on antibiotic and intubated on the vent 5. Septic shock. On Levophed 4 mcg and Midodrine 10 tid 6. History of previous COVID infection in May 2020 and active Covid now in isolation 7. Dementia. DW RN Subjective Subjective In SR in NAD in Covid isolation. In ICU on the Vent with 40% Fio2. Had 31 beats of VT on 07/14/20 at 16:46 and 5 beats 07/19/20 Coded 07/23/20 as sat dropped to 20% and got aníbal 30s and PEA and pulseless Got 3 Epi and 2 Bicarb. Now on Levophed 4 mcg and Midodrine 10 tid Objective Last 24 Hour Vital Signs Date Time Temp Pulse Resp B/P (MAP) Pulse Ox O2 Delivery O2 Flow Rate FiO2 07/25/20 13:00 66 12 144/69 (94) 100 07/25/20 12:45 67 14 127/63 (84) 100 07/25/20 12:39 73 12 91/53 (66) 100 07/25/20 12:34 83/52 07/25/20 12:30 67 12 90/52 (65) 100 07/25/20 12:15 97.8 67 12 97/53 (68) 100 07/25/20 12:00 40 07/25/20 12:00 Mechanical Ventilator Mechanical Ventilator 07/25/20 12:00 68 07/25/20 12:00 67 12 97/53 (68) 100 07/25/20 11:30 68 12 81/53 (62) 100 07/25/20 11:00 67 12 109/60 (76) 100 07/25/20 10:59 62 12 40 07/25/20 10:30 66 12 103/60 (74) 100 07/25/20 10:15 66 12 88/54 (65) 100 07/25/20 10:00 65 12 86/49 (61) 100 07/25/20 09:30 65 12 100/53 (69) 100 07/25/20 09:00 65 15 108/55 (72) 100 07/25/20 08:30 60 12 91/54 (66) 100 07/25/20 08:00 61 07/25/20 08:00 97.2 63 12 95/52 (66) 100 07/25/20 08:00 Mechanical Ventilator Mechanical Ventilator 07/25/20 08:00 40 07/25/20 07:30 60 12 94/50 (65) 100 07/25/20 07:22 60 12 50 07/25/20 07:00 62 12 114/57 (76) 100 07/25/20 06:30 60 14 07/25/20 06:00 61 13 102/60 (74) 100 07/25/20 05:45 14 Mechanical Ventilator 50 07/25/20 05:23 14 Mechanical Ventilator 50 07/25/20 05:00 14 Mechanical Ventilator 50 07/25/20 05:00 68 14 118/61 (80) 100 07/25/20 04:45 72 17 145/67 (93) 100 07/25/20 04:30 70 16 132/81 (98) 100 07/25/20 04:12 71 07/25/20 04:00 14 Mechanical Ventilator 50 07/25/20 04:00 97.8 69 15 136/66 (89) 100 07/25/20 04:00 Mechanical Ventilator Mechanical Ventilator 07/25/20 04:00 50 07/25/20 03:45 16 Mechanical Ventilator 50 07/25/20 03:44 79 18 50 07/25/20 03:30 17 07/25/20 03:00 81 18 141/76 (97) 99 07/25/20 02:45 18 Mechanical Ventilator 50 07/25/20 02:00 83 17 132/72 (92) 98 07/25/20 01:45 84 17 132/72 (92) 98 07/25/20 01:45 14 Mechanical Ventilator 50 07/25/20 01:30 85 16 134/66 (88) 100 07/25/20 01:30 16 Mechanical Ventilator 50 07/25/20 01:15 17 Mechanical Ventilator 50 07/25/20 01:15 85 17 127/63 (84) 100 07/25/20 01:00 14 Mechanical Ventilator 50 07/25/20 01:00 86 17 121/67 (85) 100 07/25/20 00:45 81 17 127/68 (87) 100 07/25/20 00:45 20 50 07/25/20 00:00 50 07/25/20 00:00 Mechanical Ventilator Mechanical Ventilator 07/25/20 00:00 98.1 74 12 98/59 (72) 100 07/24/20 23:10 85 14 50 07/24/20 23:07 82 07/24/20 23:00 85 19 119/69 (86) 100 07/24/20 22:47 83 19 144/84 (104) 100 07/24/20 22:00 86 12 125/67 (86) 99 07/24/20 21:15 83 12 100/52 (68) 99 07/24/20 21:00 82 12 87/52 (64) 99 07/24/20 20:15 81 18 112/66 (81) 100 07/24/20 20:15 18 50 07/24/20 20:00 96.8 81 24 123/64 (83) 100 07/24/20 20:00 Mechanical Ventilator Mechanical Ventilator 07/24/20 20:00 50 07/24/20 20:00 20 50 07/24/20 19:20 89 07/24/20 19:09 86 13 50 07/24/20 19:00 84 17 124/66 (85) 100 07/24/20 19:00 12 Mechanical Ventilator 50 07/24/20 18:45 85 18 121/66 (84) 99 07/24/20 18:30 84 12 117/63 (81) 100 07/24/20 18:15 84 12 110/60 (77) 98 07/24/20 18:03 104/57 07/24/20 18:00 82 12 104/57 (73) 98 07/24/20 18:00 12 Mechanical Ventilator 50 07/24/20 17:45 81 12 94/57 (69) 98 07/24/20 17:45 12 Mechanical Ventilator 50 07/24/20 17:30 12 Mechanical Ventilator 50 07/24/20 17:15 12 Mechanical Ventilator 50 07/24/20 17:10 80 12 50 07/24/20 17:00 12 Mechanical Ventilator 50 07/24/20 17:00 78 12 93/52 (66) 98 07/24/20 16:45 78 12 96/55 (69) 98 07/24/20 16:30 75 12 85/51 (62) 98 07/24/20 16:15 72 13 117/69 (85) 100 07/24/20 16:00 Mechanical Ventilator Mechanical Ventilator 07/24/20 16:00 70 07/24/20 16:00 12 Mechanical Ventilator 50 07/24/20 16:00 97.1 69 16 108/66 (80) 100 07/24/20 15:45 67 12 96/62 (73) 100 07/24/20 15:45 16 Mechanical Ventilator 50 07/24/20 15:30 68 13 85/55 (65) 100 07/24/20 15:15 69 18 91/58 (69) 100 07/24/20 15:11 72 12 50 07/24/20 15:00 14 Mechanical Ventilator 50 07/24/20 15:00 72 19 101/64 (76) 99 07/24/20 14:45 73 21 113/68 (83) 99 07/24/20 14:45 12 Mechanical Ventilator 50 07/24/20 14:30 78 19 104/62 (76) 98 07/24/20 14:23 50 07/24/20 14:15 80 20 109/64 (79) 99 07/24/20 14:00 16 Mechanical Ventilator 60 07/24/20 14:00 81 17 107/65 (79) 99 Intake and Output 07/24/20 07/25/20 19:00 07:00 Intake Total 1831.914 ml 1428.7500 ml Output Total 1140 ml 645 ml Balance 691.914 ml 783.7500 ml Free Water 40 ml 70 ml IV Total 1671.914 ml 1178.7500 ml Tube Feeding 120 ml 180 ml Output Urine Total 1140 ml 645 ml Laboratory Tests Test 07/25/20 00:12 07/25/20 04:30 07/25/20 04:46 07/25/20 09:26 POC Whole Blood Glucose Pending 128 MG/DL (74-106) H White Blood Count 10.8 K/UL (4.8-10.8) Red Blood Count 2.82 M/UL (4.70-6.10) L Hemoglobin 8.4 G/DL (14.2-18.0) L Hematocrit 27.6 % (42.0-52.0) L Mean Corpuscular Volume 98 FL (80-99) Mean Corpuscular Hemoglobin 29.9 PG (27.0-31.0) Mean Corpuscular Hemoglobin Concent 30.5 G/DL (32.0-36.0) L Red Cell Distribution Width 16.9 % (11.6-14.8) H Platelet Count 398 K/UL (150-450) Mean Platelet Volume 7.7 FL (6.5-10.1) Neutrophils (%) (Auto) 80.9 % (45.0-75.0) H Lymphocytes (%) (Auto) 9.3 % (20.0-45.0) L Monocytes (%) (Auto) 7.1 % (1.0-10.0) Eosinophils (%) (Auto) 1.4 % (0.0-3.0) Basophils (%) (Auto) 1.3 % (0.0-2.0) Sodium Level 139 MMOL/L (136-145) Potassium Level 4.2 MMOL/L (3.5-5.1) Chloride Level 107 MMOL/L (98-107) Carbon Dioxide Level 24 MMOL/L (21-32) Anion Gap 8 mmol/L (5-15) Blood Urea Nitrogen 13 mg/dL (7-18) Creatinine 0.7 MG/DL (0.55-1.30) Estimat Glomerular Filtration Rate > 60 mL/min (>60) Glucose Level 135 MG/DL (74-106) H Calcium Level 7.8 MG/DL (8.5-10.1) L Total Bilirubin 0.3 MG/DL (0.2-1.0) Aspartate Amino Transf (AST/SGOT) 21 U/L (15-37) Alanine Aminotransferase (ALT/SGPT) 28 U/L (12-78) Alkaline Phosphatase 144 U/L (46-116) H Total Protein 6.3 G/DL (6.4-8.2) L Albumin 1.4 G/DL (3.4-5.0) L Globulin 4.9 g/dL Albumin/Globulin Ratio 0.3 (1.0-2.7) L Arterial Blood pH 7.422 (7.350-7.450) Arterial Blood Partial Pressure CO2 38.2 mmHg (35.0-45.0) Arterial Blood Partial Pressure O2 119.2 mmHg (75.0-100.0) H Arterial Blood HCO3 24.3 mmol/L (22.0-26.0) Arterial Blood Oxygen Saturation 97.9 % (95-100) Arterial Blood Base Excess 0 (-2-2) Richard Test Positive Objective HEAD AND NECK: No JVD. Orally intubated LUNGS: Coarse rhonchi. CARDIOVASCULAR: Irregular S1 and S2 with no gallop. ABDOMEN: Soft. EXTREMITIES: No pitting edema. Klever Matt MD Jul 25, 2020 14:00
--- NOTE | 2020-07-25 16:00 | NUR ---
NURSE NOTES: Pt repositioned. Oral care provided. Pt remains afebrile. No acute distress noted.
--- NOTE | 2020-07-25 17:50 | Internal Med Progress Note ---
Subjective Date of Service: Jul 25, 2020 Physician Name Dano Groves Attending Physician Ahsan Hodges MD Current Medications Medications (Trade) Dose Ordered Sig/Ankush Route PRN Reason Start Time Stop Time Status Last Admin Dose Admin Acetaminophen (Tylenol) 650 mg Q4H PRN ORAL Temp >100.5 07/03/20 20:30 08/02/20 20:29 07/16/20 22:39 Chlorhexidine Gluconate (Darcy-Hex 2%) 1 applic DAILY@1999 TOPIC 07/17/20 20:00 10/15/20 19:59 07/24/20 20:15 Dextrose (Dextrose 50%) 50 ml Q30M PRN IV Hypoglycemia 07/03/20 22:45 10/01/20 22:44 Heparin Sodium (Porcine) (Heparin 5000 units/ml) 5,000 units EVERY 12 HOURS SUBQ 07/03/20 21:00 08/17/20 20:59 07/25/20 08:24 Insulin Aspart (NovoLOG) EVERY 6 HOURS SUBQ 07/13/20 06:00 10/02/20 06:29 07/22/20 13:21 Linezolid 300 ml @ 300 mls/hr Q12HR IVPB 07/24/20 12:00 07/31/20 11:59 07/25/20 08:24 Lorazepam (Ativan 2mg/ml 1ml) 2 mg Q4H PRN IV For Anxiety 07/21/20 13:45 07/28/20 13:44 07/23/20 19:20 Meropenem 1 gm/ Sodium Chloride 55 ml @ 110 mls/hr Q8HR@0400,1200,1999 IVPB 07/22/20 12:00 07/27/20 11:59 07/25/20 12:33 Midazolam HCl 100 mg/Sodium Chloride 200 ml @ 0 mls/hr Q24H PRN IV Agitation 07/24/20 08:30 07/26/20 08:29 07/25/20 05:23 Midodrine (Pro-Amatine) 10 mg Q8H ORAL 07/22/20 17:00 10/20/20 16:59 07/25/20 17:32 Morphine Sulfate (Morphine Sulfate) 2 mg Q6H PRN IVP moderate pain 07/21/20 13:45 07/28/20 13:44 Nitroglycerin (Ntg) 0.4 mg Q5M PRN SL Prn Chest Pain 07/03/20 20:30 08/02/20 20:29 Norepinephrine Bitartrate 250 ml @ 0 mls/hr Q24H IV 07/23/20 13:30 07/26/20 15:44 07/25/20 12:34 Ondansetron HCl (Zofran) 4 mg Q6H PRN IVP Nausea & Vomiting 07/03/20 20:30 08/02/20 20:29 Pantoprazole (Protonix) 40 mg DAILY IV 07/18/20 09:00 08/17/20 08:59 07/25/20 08:24 Polyethylene Glycol (Miralax) 17 gm DAILYPRN PRN ORAL Constipation 07/03/20 20:30 08/02/20 20:29 Promethazine HCl/ Codeine (Phenergan with Codeine) 5 ml Q4H PRN ORAL For Cough 07/03/20 20:30 08/02/20 20:29 Sodium Chloride 1,000 ml @ 50 mls/hr Q20H IV 07/17/20 16:00 08/16/20 15:59 07/25/20 00:05 Allergies: Coded Allergies: No Known Allergies (Unverified , 04/30/12) ROS Limited/Unobtainable: Yes Subjective 79 YO M admitted with shortness of breath. Now pneumonia; previously COVID positive. Cover for Int laina-Dr Hodges. ICU. Intubated and sedated. On Levophed Objective Last Vital Signs Date Time Temp Pulse Resp B/P (MAP) Pulse Ox O2 Delivery O2 Flow Rate FiO2 07/25/20 17:00 96 29 105/90 (95) 97 07/25/20 16:01 98.1 07/25/20 16:00 40 07/25/20 16:00 Mechanical Ventilator Mechanical Ventilator 07/17/20 12:00 15.0 Laboratory Tests Test 07/25/20 00:12 07/25/20 04:30 07/25/20 04:46 07/25/20 09:26 POC Whole Blood Glucose Pending 128 MG/DL (74-106) H White Blood Count 10.8 K/UL (4.8-10.8) Red Blood Count 2.82 M/UL (4.70-6.10) L Hemoglobin 8.4 G/DL (14.2-18.0) L Hematocrit 27.6 % (42.0-52.0) L Mean Corpuscular Volume 98 FL (80-99) Mean Corpuscular Hemoglobin 29.9 PG (27.0-31.0) Mean Corpuscular Hemoglobin Concent 30.5 G/DL (32.0-36.0) L Red Cell Distribution Width 16.9 % (11.6-14.8) H Platelet Count 398 K/UL (150-450) Mean Platelet Volume 7.7 FL (6.5-10.1) Neutrophils (%) (Auto) 80.9 % (45.0-75.0) H Lymphocytes (%) (Auto) 9.3 % (20.0-45.0) L Monocytes (%) (Auto) 7.1 % (1.0-10.0) Eosinophils (%) (Auto) 1.4 % (0.0-3.0) Basophils (%) (Auto) 1.3 % (0.0-2.0) Sodium Level 139 MMOL/L (136-145) Potassium Level 4.2 MMOL/L (3.5-5.1) Chloride Level 107 MMOL/L (98-107) Carbon Dioxide Level 24 MMOL/L (21-32) Anion Gap 8 mmol/L (5-15) Blood Urea Nitrogen 13 mg/dL (7-18) Creatinine 0.7 MG/DL (0.55-1.30) Estimat Glomerular Filtration Rate > 60 mL/min (>60) Glucose Level 135 MG/DL (74-106) H Calcium Level 7.8 MG/DL (8.5-10.1) L Total Bilirubin 0.3 MG/DL (0.2-1.0) Aspartate Amino Transf (AST/SGOT) 21 U/L (15-37) Alanine Aminotransferase (ALT/SGPT) 28 U/L (12-78) Alkaline Phosphatase 144 U/L (46-116) H Total Protein 6.3 G/DL (6.4-8.2) L Albumin 1.4 G/DL (3.4-5.0) L Globulin 4.9 g/dL Albumin/Globulin Ratio 0.3 (1.0-2.7) L Arterial Blood pH 7.422 (7.350-7.450) Arterial Blood Partial Pressure CO2 38.2 mmHg (35.0-45.0) Arterial Blood Partial Pressure O2 119.2 mmHg (75.0-100.0) H Arterial Blood HCO3 24.3 mmol/L (22.0-26.0) Arterial Blood Oxygen Saturation 97.9 % (95-100) Arterial Blood Base Excess 0 (-2-2) Richard Test Positive Intake and Output 07/24/20 07/25/20 19:00 07:00 Intake Total 1831.914 ml 1428.7500 ml Output Total 1140 ml 645 ml Balance 691.914 ml 783.7500 ml Free Water 40 ml 70 ml IV Total 1671.914 ml 1178.7500 ml Tube Feeding 120 ml 180 ml Output Urine Total 1140 ml 645 ml Objective PHYSICAL EXAMINATION: GENERAL: The patient awake with deep stimuli, open his eyes, however, cannot follow commands. The patient is on a Ventimask at this time, chronically ill-appearing. HEAD AND NECK: Pupils are equal and reactive to light. Anicteric. NECK: Supple. No JVD. LUNGS: Mech vent; wheezing, rhonchi, and decreased air in bases. HEART: S1, S2. Regular rhythm. Distant heart sounds. No murmur or gallop. ABDOMEN: Soft, nondistended, nontender. Positive bowel sounds. EXTREMITIES: No cyanosis, clubbing, or edema. NEUROLOGIC: Very limited secondary to the patient's status, cannot follow commands. Opens his eyes with deep stimuli and moving extremities spontaneously. Assessment/Plan Assessment/Plan ASSESSMENT: 1. Acute hypoxemic respiratory failure, most likely secondary to pneumonia and sepsis. 2. Sepsis secondary to urinary tract infection and pneumonia. 3. pneumonia=MRSA; ESBL E. coli 4. Acute kidney injury on chronic renal insufficiency. 5. Dehydration. 6. History of chronic congestive heart failure. 7. Diabetes type 2. 8. Dyslipidemia. 9. Hypertension. 10. Alzheimer's disease. 11. COVID 19 previous positive PLAN: 1. ICU 2. Dr. Carreno,=Pulmonary Critical Care; follow mech vent recs 3. Dr. Cho = Inf Dis. 4. IV= D5W due to the hypernatremia and dehydration. 5. antibiotics = meropenem; S/P micafungin 6. Code status is full code. 7. DVT prophylaxis is heparin subcutaneous. Dano Groves MD Jul 25, 2020 17:50
--- NOTE | 2020-07-25 18:00 | NUR ---
NURSE NOTES: Pt repositioned and cleaned. BG 112 - no insulin coverage per protocol.
--- NOTE | 2020-07-25 19:15 | NUR ---
RESPIRATORY NOTE: Received pt on AC 12, 600VT, 40%, no PEEP. Pt intubated w/ ETT 7.5 @ 25cm lipline, secured by anchorfast. Pt sedated, OPA in place as pt tends to bite ETT. B/S christian. rales/rhonchi, sxn large amounts of thick/thin/frothy, white to pale-yellow secretions. Vent plugged into red outlet, ambubag at bedside. Pt in no apparent distress at this time. Will continue to monitor pt.
--- NOTE | 2020-07-25 19:20 | NUR ---
NURSE NOTES: Received report from FLORES Todd. Pt opens eyes when called by name. Pt is obtunded, withdraws to pain; however, unable to follow simple commands. Pt is in SR/ST to manager monitoring. 2+ pitting edema to bilat hands and 1+ to right arm. Pt is orally intubated with ETT 7.5 /25cm from the lip line. Vent settings: AC 14 TV 600 FiO2 50% Peep 0 Upper lung rogers noted with rhonchi and lower lungs diminished upon auscultation. Pt has a right naris NGT running Glucerna 1.2 at 40 mL/hr without gastric residuals. Pt has Wiley cath draining yellow and clear urine noted. Skin alterations noted. Safety measures observed and no acute distress noted. will continue to monitor.
--- NOTE | 2020-07-25 19:25 | NUR ---
NURSE HAND-OFF REPORT: Latest Vital Signs: Temperature 98.1 , Pulse 102 , B/P 107 /59 , Respiratory Rate 22 , O2 SAT 100 , Mechanical Ventilator, FiO2 40% . Vital Sign Comment: stable on 4 mcg/min of levophed EKG Rhythm: Sinus Rhythm Rhythm change?: N MD Notified?: seen by Dr Shaka jacobo MD Response: n/a Latest Gonzalez Fall Score: 50 Fall Risk: High Risk Safety Measures: Call light Within Reach, Bed Alarm Zone 2, Side Rails Side Rails x3, Bed position Low and Locked. Fall Precautions: Yellow Socks Yellow Gown Door Sign Patient Fall Education Report given to Catherine Sommers RN.
[2020-07-25] MEDS: Dyna-Hex 2% Top Sol 2oz TOPIC SCH (19:58)
--- NOTE | 2020-07-25 21:00 | NUR ---
NURSE NOTES: PM meds given. Turned and repositioned. Oral care provided. Addendum: 07/26/20 at 0117 by Catherine Sommers RN BP stable. Decreased Levo to 2mcgs
--- NOTE | 2020-07-25 22:00 | NUR ---
NURSE NOTES: BP decreased. Levo back to 4mcgs
--- NOTE | 2020-07-25 23:00 | NUR ---
NURSE NOTES: PM meds given. Turned and repositioned. Oral care provided.
[2020-07-26] VITALS (51 sets, daily range): BP systolic 82–180; BP diastolic 43–131
[2020-07-26] MEDS: NovoLOG Insulin Flexpen SUBQ SCH ×4 (00:30→18:00)
[2020-07-26] MEDS: Midodrine 10mg tab ORAL SCH ×3 (00:31→16:59)
--- NOTE | 2020-07-26 01:00 | NUR ---
NURSE NOTES: BP has been increasing. Decreased Levo to 2mcs.
--- NOTE | 2020-07-26 03:00 | NUR ---
NURSE NOTES: AM care provided. CHG bath given. Changed soiled gowns, linens, and sliders. Sacral pic was taken and uploaded. Changed Optiform and Triad cream applied. Turned and changed position. Oral care provided. Suctioned with 14F. Safety measures observed and no acute distress noted. Will continue to monitor.
[2020-07-26] MEDS: Meropenem 1gm/NS 55ml IVPB SCH ×6 (03:11→20:35)
[2020-07-26] MEDS: LORazepam Inj 2mg/ml 1ml IV PRN ×2 (03:13→17:11)
[2020-07-26 05:55] LABS: BASOPHILS % (AUTO) 7.7 % (0.0-2.0); EOSINOPHILS % (AUTO) 0.1 % (0.0-3.0); HEMATOCRIT 27.6 % (42.0-52.0); HEMOGLOBIN 8.4 G/DL (14.2-18.0); LYMPHOCYTES % (AUTO) 4.4 % (20.0-45.0); MEAN CORPUSCULAR VOLUME 100 FL (80-99); MONOCYTES % (AUTO) 5.5 % (1.0-10.0); NEUTROPHILS % (AUTO) 82.3 % (45.0-75.0); PLATELET COUNT 440 K/UL (150-450); RED BLOOD COUNT 2.77 M/UL (4.70-6.10); RED CELL DISTRIBUTION WIDTH 16.9 % (11.6-14.8); WHITE BLOOD COUNT 14.6 K/UL (4.8-10.8)
--- NOTE | 2020-07-26 06:00 | NUR ---
NURSE NOTES: Turned and repositioned. Oral care provided. Afebrile and VSS. Will continue top monitor. Addendum: 07/26/20 at 0635 by Catherine Sommers RN BP 155/73 Levo HOLD
[2020-07-26 07:06] LABS: ALANINE AMINOTRANSFERASE 26 U/L (12-78); ALBUMIN 1.5 G/DL (3.4-5.0); ALBUMIN/GLOBULIN RATIO 0.3 (1.0-2.7); ALKALINE PHOSPHATASE 146 U/L (46-116); ANION GAP 8 mmol/L (5-15); ASPARTATE AMINO TRANSFERASE 25 U/L (15-37); BILIRUBIN,TOTAL 0.3 MG/DL (0.2-1.0); BLOOD UREA NITROGEN 12 mg/dL (7-18); CARBON DIOXIDE 25 MMOL/L (21-32); CHLORIDE 107 MMOL/L (98-107); PHOSPHORUS 2.9 MG/DL (2.5-4.9); POTASSIUM 4.6 MMOL/L (3.5-5.1); SODIUM 140 MMOL/L (136-145)
--- NOTE | 2020-07-26 07:26 | NUR ---
HAND-OFF: Report given to FLORES Todd. Endorsed POC.
--- NOTE | 2020-07-26 07:27 | NUR ---
NURSE NOTES: Pt received from Catherine Sommers RN. Pt opens eyes when called by name - able to maintain eye contact to voice. Gag reflex present. Pt withdraws to pain but unable to follow simple commands. Bilat pupils equal and round - 4mm with sluggish rxn to light. Pt is in SR to monitoring engineer. Radial and dorsalis pedis pulses 2+. 2+ pitting edema noted to RUE. Afebrile at this time with cooling blanket on monitor mode. Cap refill 3 sec. Pt is orally intubated with a 7.5 ETT noted 25 cm at the lip with the following settings: AC 14 TV 600 FiO2 40% Peep 0 with spO2 100% - will titrate down O2. Upper lung rogers noted with rhonchi and lower lungs diminished upon auscultation. Pt has a right naris NGT running Glucerna 1.2 at 40 cc/hr without gastric residuals noted. TF titrated up to 50 cc/hr at this time. Abd is soft, round, and non-distended with active bowel sounds to all quadrants. F/C noted draining yellow, clear urine. Skin alterations noted. Pt has a JACQUIE PICC with dry and intact dressing running 1/2 NS at 50 cc/hr. Levophed and versed on standby. Bed in lowest position, alarm on, side rails up x 2, call light within reach. Will continue to monitor.
--- NOTE | 2020-07-26 08:00 | NUR ---
NURSE NOTES: Pt repositioned. Oral care provided. No distress noted.
[2020-07-26] MEDS: Pantoprazole Inj IV SCH (08:07)
[2020-07-26] MEDS: Heparin 5000 units/ml inj SUBQ SCH ×2 (08:07→20:37)
--- NOTE | 2020-07-26 08:41 | Diagnostic Imaging Report ---
EXAM: XR Chest, 1 View CLINICAL HISTORY: DYSPNEA TECHNIQUE: Frontal view of the chest. COMPARISON: Chest radiograph July 24, 2020 FINDINGS/IMPRESSION: Endotracheal tube terminates 2.6 cm above the lea. Enteric feeding tube terminates in the stomach. Right PICC line terminates in the superior vena cava. EKG leads overlie the patient. Small bilateral pleural effusions, left greater than right. Mild vascular congestion. Opacity within the right lung base, suspicious for atelectasis versus infiltrate. This is improving when compared to the prior study. Continued chest radiograph follow-up recommended. Cardiomegaly. Calcified aorta. Right shoulder arthroplasty.
--- NOTE | 2020-07-26 10:00 | NUR ---
NURSE NOTES: Pt repositioned. Dr Carreno assessing pt at bedside - care plan discussed. weaning deferred at this time d/t tachycardia.
--- NOTE | 2020-07-26 11:30 | NUR ---
NURSE NOTES: Levophed started at 2 mcg/min for SBP in the 80s.
--- NOTE | 2020-07-26 12:00 | NUR ---
NURSE NOTES: Pt repositioned. Oral care provided. Afebrile. No acute distress noted. SBP now in the 120s with 2 mcg/min of Levophed.
--- NOTE | 2020-07-26 12:35 | NUR ---
NURSE NOTES: Pt seen by Dr Connors - lisa for today reviewed.
[2020-07-26] MEDS: Norepinephrine 4mg/NS Premix 250 ML IV SCH (13:01)
--- NOTE | 2020-07-26 14:00 | NUR ---
NURSE NOTES: Pt repositioned. No distress noted. Pt endotracheally suctioned per RT.
--- NOTE | 2020-07-26 14:45 | Nephrology Progress Note ---
Assessment/Plan Problem List: (1) Dehydration (2) MELANIE (acute kidney injury) (3) Renal failure (ARF), acute on chronic (4) Hypoxia (5) Acute encephalopathy (6) Electrolyte imbalance Assessment 79-year-old male is admitted with acute hypoxic respiratory failure most likely secondary to pneumonia and sepsis, UTI. Acute on chronic renal failure Dehydration Electrolyte imbalances, hypernatremia Hypoalbuminemia Diabetes type 2 History of congestive heart failure Hypertension Hyperlipemia Alzheimer's Previous COVID-19 infection in May 2020 Plan July 26: In ICU. Full code. Discussed with RN. Stable renal parameters. July 25: Seen in ICU. Discussed with FLORES Holliday. Flomax discontinued. Labs reviewed. Stable from renal standpoint of view. July 24: Seen in ICU. Discussed with FLORES Holliday. Remains on pressor. Electrolyte abnormalities noted and addressed. Continue per consultants. Patient remains full code. July 23: Seen in ICU. Discussed with FLORES Barrera. Blood pressure remains a little requiring pressors. Labs reviewed. Stable renal parameters. Continue per consultants. July 22: Remains intubated. Full code. Blood pressure borderline low. Will increase midodrine dose. Discussed with RN. Continue to monitor renal parameters and electrolytes. July 21: Intubated. Full code. Labs reviewed. Stable from renal standpoint of view. Continue per consultants. July 20: Remains intubated. Full code. Labs reviewed. Electrolytes within normal limit. Continue per consultants. July 19: In ICU. Remains intubated on ventilator. Remains full code. Low potassium addressed. Blood pressure fluctuating. Continue per consultants. July 18: Patient in ICU. Intubated on ventilator. On 6 mics of Levophed. Will give 100 cc albumin 25%. K-Phos IV ordered. Continue per consultants. Continue monitor renal parameters and electrolytes. July 17: Status unchanged. Transfer to [facility] for seizure. Stable from renal standpoint to view. Continue per consultants. July 16: Status quo. Labs reviewed. Renal parameters stable. Continue per consultants. July 15: On nonrebreather mask. Labs reviewed. Renal parameters stable.Continue per maintenance coordinator. Clinically unchanged. July 14: On nonrebreather mask. Inflammatory markers gradually declining. Renal parameters stable. Continue per pulmonary. July 13: Remains on nonrebreather mask. Inflammatory markers remain elevated. Renal parameters somewhat stable. Continue per pulmonary and ID. Remains full code. July 12: Patient on nonrebreather mask. Labs noted. Serum creatinine down to 1.3. Continue per consultants. July 11: Patient on nonrebreather mask. Transfer to telemetry when seen this morning. Labs noted. Continue per consultants. Serum creatinine erin to 1.7. Continue to monitor renal parameters. Continue to monitor vancomycin level July 10: Patient is not doing well clinically. Mild respiratory distress. ABG noted. Somewhat hypoxic. CBC and chemistry panel ordered. Discussed with FLORES Cho. Will defer to pulmonary management to specialist. Continue per ID. Renal parameters remained stable as of July 09. July 09: Labs reviewed. Renal parameters stable. Continue per consultants. July 08: Labs reviewed. Potassium via NG tube ordered. IV fluids stopped. Continue per consultants. July 07: Labs reviewed. Low potassium and low phosphorus replaced. Continue per consultants. Remains stable from renal standpoint of view. July 06: Patient remains n.p.o. IV fluid down to 50 cc an hour. Potassium supplement intravenously ordered. Continue per consultants. Previously: Patient is n.p.o., will continue on IV fluid of D5W 75 cc an hour We will monitor electrolytes and renal parameters Avoid nephrotoxic's Start p.o. when he clears by speech therapist, meanwhile aspiration precautions Keep the blood pressure and blood sugar in check Per orders Subjective ROS Limited/Unobtainable: Yes Objective Objective Last 24 Hour Vital Signs Date Time Temp Pulse Resp B/P (MAP) Pulse Ox O2 Delivery O2 Flow Rate FiO2 07/26/20 13:30 108 21 135/84 (101) 98 07/26/20 13:15 109 25 173/78 (109) 100 07/26/20 13:01 128/50 07/26/20 13:00 98 23 134/91 (105) 97 07/26/20 12:45 97 20 128/50 (76) 100 07/26/20 12:30 93 22 115/63 (80) 99 07/26/20 12:15 93 22 121/62 (81) 99 07/26/20 12:00 30 07/26/20 12:00 Mechanical Ventilator Mechanical Ventilator 07/26/20 12:00 98.4 99 14 98/52 (67) 98 07/26/20 12:00 97 07/26/20 11:45 96 13 95/50 (65) 98 07/26/20 11:30 97 18 82/43 (56) 99 07/26/20 11:15 98 14 30 07/26/20 11:00 94 21 102/53 (69) 99 07/26/20 10:30 94 23 91/49 (63) 99 07/26/20 10:00 111 24 135/72 (93) 97 07/26/20 09:30 112 23 165/66 (99) 99 07/26/20 09:00 108 20 170/91 (117) 100 07/26/20 09:00 30 07/26/20 08:40 30 07/26/20 08:30 103 20 135/69 (91) 99 07/26/20 08:00 Mechanical Ventilator Mechanical Ventilator 07/26/20 08:00 98.7 97 12 91/50 (64) 100 07/26/20 08:00 40 07/26/20 08:00 92 07/26/20 07:25 97 17 40 07/26/20 07:00 97.1 94 14 94/57 (69) 100 07/26/20 06:30 109 14 07/26/20 06:30 109 22 163/79 (107) 98 07/26/20 06:00 111 22 155/73 (100) 98 07/26/20 05:30 112 22 160/70 (100) 100 07/26/20 05:00 110 21 137/82 (100) 97 07/26/20 04:30 100 17 150/85 (106) 100 07/26/20 04:00 Mechanical Ventilator Mechanical Ventilator 07/26/20 04:00 103 07/26/20 04:00 103 19 146/78 (100) 100 07/26/20 04:00 40 07/26/20 03:43 103 16 136/82 96 07/26/20 03:30 105 17 123/69 (87) 100 07/26/20 03:13 102 17 132/94 100 07/26/20 03:08 101 17 40 07/26/20 03:00 109 19 132/94 (107) 100 07/26/20 02:30 89 17 111/78 (89) 98 07/26/20 02:00 90 12 89/57 (68) 100 07/26/20 01:00 99.9 109 22 141/73 (95) 100 07/26/20 00:30 106 22 149/76 (100) 100 07/26/20 00:00 Mechanical Ventilator Mechanical Ventilator 07/26/20 00:00 102 21 140/96 (111) 100 07/25/20 23:00 91 17 120/70 (87) 100 07/25/20 22:56 91 16 40 07/25/20 22:30 91 12 102/56 (71) 100 07/25/20 22:00 86 12 87/56 (66) 100 07/25/20 21:30 88 12 80/52 (61) 100 07/25/20 21:00 93 15 101/55 (70) 100 07/25/20 20:30 106 22 114/52 (72) 99 07/25/20 20:00 107 07/25/20 20:00 Mechanical Ventilator Mechanical Ventilator 07/25/20 20:00 40 07/25/20 20:00 97.9 107 22 128/76 (93) 99 07/25/20 19:30 101 20 126/62 (83) 97 07/25/20 19:12 102 22 40 07/25/20 19:00 97 19 107/59 (75) 100 07/25/20 18:30 93 14 106/56 (73) 100 07/25/20 18:00 100 14 110/55 (73) 99 07/25/20 17:30 98 14 95/49 (64) 98 07/25/20 17:00 96 29 105/90 (95) 97 07/25/20 16:30 90 15 92/50 (64) 99 07/25/20 16:01 98.1 07/25/20 16:00 90 14 93/55 (68) 13 07/25/20 16:00 40 07/25/20 16:00 91 07/25/20 16:00 Mechanical Ventilator Mechanical Ventilator 07/25/20 15:30 81 12 108/53 (71) 100 07/25/20 15:25 84 13 40 07/25/20 15:04 79 12 92/50 (64) 100 07/25/20 15:00 81 14 98/56 (70) 99 Intake and Output 07/25/20 07/26/20 19:00 07:00 Intake Total 1559.0 ml 1135.0 ml Output Total 825 ml 1250 ml Balance 734.0 ml -115.0 ml Free Water 45 ml IV Total 1104.0 ml 655.0 ml Tube Feeding 410 ml 480 ml Output Urine Total 825 ml 1250 ml Laboratory Tests 07/26/20 04:47: White Blood Count 14.6H, Red Blood Count 2.77L, Hemoglobin 8.4L, Hematocrit 27.6L, Mean Corpuscular Volume 100H, Mean Corpuscular Hemoglobin 30.3, Mean Corpuscular Hemoglobin Concent 30.4L, Red Cell Distribution Width 16.9H, Platelet Count 440, Mean Platelet Volume 6.4L, Neutrophils (%) (Auto) 82.3H, Lymphocytes (%) (Auto) 4.4L, Monocytes (%) (Auto) 5.5, Eosinophils (%) (Auto) 0.1, Basophils (%) (Auto) 7.7H, Erythrocyte Sedimentation Rate 81H, Sodium Level 140, Potassium Level 4.6, Chloride Level 107, Carbon Dioxide Level 25, Anion Gap 8, Blood Urea Nitrogen 12, Creatinine 1.0, Estimat Glomerular Filtration Rate > 60, Glucose Level 118H, Calcium Level 8.0L, Phosphorus Level 2.9, Magnesium Level 2.5H, Total Bilirubin 0.3, Aspartate Amino Transf (AST/SGOT) 25, Alanine Aminotransferase (ALT/SGPT) 26, Alkaline Phosphatase 146H, C-Reactive Protein, Quantitative 6.6H, Total Protein 6.8, Albumin 1.5L, Globulin 5.3, Albumin/Globulin Ratio 0.3L Height (Feet): 5 Height (Inches): 4.00 Weight (Pounds): 130 General Appearance: no apparent distress EENT: other - Intubated on ventilator Cardiovascular: tachycardia Respiratory/Chest: decreased breath sounds Abdomen: distended Tino Connors MD Jul 26, 2020 14:45
[2020-07-26] MEDS ORDERED: 1/2 NS 1000ml IV ONE ×2 (15:09→15:12)
[2020-07-26] MEDS ORDERED: Sterile Water Irrig 1000ml IRRIG ONE (15:09)
[2020-07-26] MEDS ORDERED: D5NS 1000ml IV ONE (15:11)
[2020-07-26] MEDS ORDERED: Tubing IV Secondary IV ONE (15:11)
--- NOTE | 2020-07-26 15:14 | Internal Med Progress Note ---
Subjective Date of Service: Jul 26, 2020 Physician Name Dano Groves Attending Physician Ahsan Hodges MD Current Medications Medications (Trade) Dose Ordered Sig/Ankush Route PRN Reason Start Time Stop Time Status Last Admin Dose Admin Acetaminophen (Tylenol) 650 mg Q4H PRN ORAL Temp >100.5 07/03/20 20:30 08/02/20 20:29 07/16/20 22:39 Chlorhexidine Gluconate (Darcy-Hex 2%) 1 applic DAILY@1999 TOPIC 07/17/20 20:00 10/15/20 19:59 07/25/20 19:58 Dextrose (Dextrose 50%) 50 ml Q30M PRN IV Hypoglycemia 07/03/20 22:45 10/01/20 22:44 Heparin Sodium (Porcine) (Heparin 5000 units/ml) 5,000 units EVERY 12 HOURS SUBQ 07/03/20 21:00 08/17/20 20:59 07/26/20 08:07 Insulin Aspart (NovoLOG) EVERY 6 HOURS SUBQ 07/13/20 06:00 10/02/20 06:29 07/26/20 00:30 Linezolid 300 ml @ 300 mls/hr Q12HR IVPB 07/24/20 12:00 07/31/20 11:59 07/26/20 08:07 Lorazepam (Ativan 2mg/ml 1ml) 2 mg Q4H PRN IV For Anxiety 07/21/20 13:45 07/28/20 13:44 07/26/20 03:13 Meropenem 1 gm/ Sodium Chloride 55 ml @ 110 mls/hr Q8HR@0400,1200,1999 IVPB 07/22/20 12:00 07/27/20 11:59 07/26/20 11:22 Midodrine (Pro-Amatine) 10 mg Q8H ORAL 07/22/20 17:00 10/20/20 16:59 07/26/20 08:06 Morphine Sulfate (Morphine Sulfate) 2 mg Q6H PRN IVP moderate pain 07/21/20 13:45 07/28/20 13:44 Nitroglycerin (Ntg) 0.4 mg Q5M PRN SL Prn Chest Pain 07/03/20 20:30 08/02/20 20:29 Norepinephrine Bitartrate 250 ml @ 0 mls/hr Q24H IV 07/26/20 13:00 07/29/20 12:59 07/26/20 13:01 Ondansetron HCl (Zofran) 4 mg Q6H PRN IVP Nausea & Vomiting 07/03/20 20:30 08/02/20 20:29 Pantoprazole (Protonix) 40 mg DAILY IV 07/18/20 09:00 08/17/20 08:59 07/26/20 08:07 Polyethylene Glycol (Miralax) 17 gm DAILYPRN PRN ORAL Constipation 07/03/20 20:30 08/02/20 20:29 Promethazine HCl/ Codeine (Phenergan with Codeine) 5 ml Q4H PRN ORAL For Cough 07/03/20 20:30 08/02/20 20:29 Sodium Chloride 1,000 ml @ 50 mls/hr Q20H IV 07/17/20 16:00 08/16/20 15:59 07/25/20 21:00 Allergies: Coded Allergies: No Known Allergies (Unverified , 04/30/12) ROS Limited/Unobtainable: Yes Subjective 79 YO M admitted with shortness of breath. Now pneumonia; previously COVID positive. Cover for Int med-Dr Hodges. ICU. Intubated and sedated. On Levophed Objective Last Vital Signs Date Time Temp Pulse Resp B/P (MAP) Pulse Ox O2 Delivery O2 Flow Rate FiO2 07/26/20 15:05 90 16 30 07/26/20 15:00 97/53 (68) 99 07/26/20 12:00 Mechanical Ventilator Mechanical Ventilator 07/26/20 12:00 98.4 07/17/20 12:00 15.0 Laboratory Tests Test 07/26/20 04:47 White Blood Count 14.6 K/UL (4.8-10.8) H Red Blood Count 2.77 M/UL (4.70-6.10) L Hemoglobin 8.4 G/DL (14.2-18.0) L Hematocrit 27.6 % (42.0-52.0) L Mean Corpuscular Volume 100 FL (80-99) H Mean Corpuscular Hemoglobin 30.3 PG (27.0-31.0) Mean Corpuscular Hemoglobin Concent 30.4 G/DL (32.0-36.0) L Red Cell Distribution Width 16.9 % (11.6-14.8) H Platelet Count 440 K/UL (150-450) Mean Platelet Volume 6.4 FL (6.5-10.1) L Neutrophils (%) (Auto) 82.3 % (45.0-75.0) H Lymphocytes (%) (Auto) 4.4 % (20.0-45.0) L Monocytes (%) (Auto) 5.5 % (1.0-10.0) Eosinophils (%) (Auto) 0.1 % (0.0-3.0) Basophils (%) (Auto) 7.7 % (0.0-2.0) H Erythrocyte Sedimentation Rate 81 MM/HR (0-20) H Sodium Level 140 MMOL/L (136-145) Potassium Level 4.6 MMOL/L (3.5-5.1) Chloride Level 107 MMOL/L (98-107) Carbon Dioxide Level 25 MMOL/L (21-32) Anion Gap 8 mmol/L (5-15) Blood Urea Nitrogen 12 mg/dL (7-18) Creatinine 1.0 MG/DL (0.55-1.30) Estimat Glomerular Filtration Rate > 60 mL/min (>60) Glucose Level 118 MG/DL (74-106) H Calcium Level 8.0 MG/DL (8.5-10.1) L Phosphorus Level 2.9 MG/DL (2.5-4.9) Magnesium Level 2.5 MG/DL (1.8-2.4) H Total Bilirubin 0.3 MG/DL (0.2-1.0) Aspartate Amino Transf (AST/SGOT) 25 U/L (15-37) Alanine Aminotransferase (ALT/SGPT) 26 U/L (12-78) Alkaline Phosphatase 146 U/L (46-116) H C-Reactive Protein, Quantitative 6.6 mg/dL (0.00-0.90) H Total Protein 6.8 G/DL (6.4-8.2) Albumin 1.5 G/DL (3.4-5.0) L Globulin 5.3 g/dL Albumin/Globulin Ratio 0.3 (1.0-2.7) L Microbiology Date/Time Source Procedure Growth Status 07/25/20 14:30 Urine,Clean Catch Urine Culture - Preliminary NO GROWTH Resulted 07/25/20 14:30 Sputum Gram Stain - Final Resulted 07/25/20 14:30 Sputum Sputum Culture Pending Resulted Intake and Output 07/25/20 07/26/20 19:00 07:00 Intake Total 1559.0 ml 1135.0 ml Output Total 825 ml 1250 ml Balance 734.0 ml -115.0 ml Free Water 45 ml IV Total 1104.0 ml 655.0 ml Tube Feeding 410 ml 480 ml Output Urine Total 825 ml 1250 ml Objective PHYSICAL EXAMINATION: GENERAL: The patient awake with deep stimuli, open his eyes, however, cannot follow commands. The patient is on a Ventimask at this time, chronically ill-appearing. HEAD AND NECK: Pupils are equal and reactive to light. Anicteric. NECK: Supple. No JVD. LUNGS: Mech vent; wheezing, rhonchi, and decreased air in bases. HEART: S1, S2. Regular rhythm. Distant heart sounds. No murmur or gallop. ABDOMEN: Soft, nondistended, nontender. Positive bowel sounds. EXTREMITIES: No cyanosis, clubbing, or edema. NEUROLOGIC: Very limited secondary to the patient's status, cannot follow commands. Opens his eyes with deep stimuli and moving extremities spontaneously. Assessment/Plan Assessment/Plan ASSESSMENT: 1. Acute hypoxemic respiratory failure, most likely secondary to pneumonia and sepsis. 2. Sepsis secondary to urinary tract infection and pneumonia. 3. pneumonia=MRSA; ESBL E. coli 4. Acute kidney injury on chronic renal insufficiency. 5. Dehydration. 6. History of chronic congestive heart failure. 7. Diabetes type 2. 8. Dyslipidemia. 9. Hypertension. 10. Alzheimer's disease. 11. COVID 19 previous positive PLAN: 1. ICU 2. Dr. Carreno,=Pulmonary Critical Care; follow mech vent recs 3. Dr. Cho = Inf Dis. 4. IV= D5W due to the hypernatremia and dehydration. 5. antibiotics = meropenem; S/P micafungin 6. Code status is full code. 7. DVT prophylaxis is heparin subcutaneous. Dano Groves MD Jul 26, 2020 15:14
--- NOTE | 2020-07-26 15:48 | Pulmonolgy Critical Care Note ---
Critical Care - Asmt/Plan Problems: (1) Acute respiratory failure (2) Multifocal pneumonia (3) 2019 novel coronavirus disease (COVID-19) (4) Acute encephalopathy (5) Severe sepsis (6) Alzheimer's dementia (7) HTN (hypertension) (8) History of CVA (cerebrovascular accident) (9) BPH (benign prostatic hyperplasia) Respiratory: monitor respiratory rate, adjust FIO2, CXR Cardiac: continue to monitor HR/BP Renal: keep IV fluid, check electrolytes Infectious Disease: check cultures Gastrointestinal: continue feedings/current rate, start feedings Hematologic: monitor H/H Neurologic: PRN Ativan Affect: PRN ativan Prophylaxis: Protonix Disposition: keep in ICU Notes Reviewed: vice president of marketing, cardio, renal Discussed with: nurses, consultants, case assemblerit disaster recovery manager - Objective Last 24 Hour Vital Signs Date Time Temp Pulse Resp B/P (MAP) Pulse Ox O2 Delivery O2 Flow Rate FiO2 07/26/20 15:05 90 16 30 07/26/20 15:00 92 20 97/53 (68) 99 07/26/20 14:45 93 21 103/55 (71) 99 07/26/20 14:30 99 18 110/62 (78) 99 07/26/20 14:15 104 23 117/63 (81) 99 07/26/20 14:00 106 21 138/59 (85) 98 07/26/20 13:45 113 21 147/77 (100) 95 07/26/20 13:30 108 21 135/84 (101) 98 07/26/20 13:15 109 25 173/78 (109) 100 07/26/20 13:01 128/50 07/26/20 13:00 98 23 134/91 (105) 97 07/26/20 12:45 97 20 128/50 (76) 100 07/26/20 12:30 93 22 115/63 (80) 99 07/26/20 12:15 93 22 121/62 (81) 99 07/26/20 12:00 30 07/26/20 12:00 Mechanical Ventilator Mechanical Ventilator 07/26/20 12:00 98.4 99 14 98/52 (67) 98 07/26/20 12:00 97 07/26/20 11:45 96 13 95/50 (65) 98 07/26/20 11:30 97 18 82/43 (56) 99 07/26/20 11:15 98 14 30 07/26/20 11:00 94 21 102/53 (69) 99 07/26/20 10:30 94 23 91/49 (63) 99 07/26/20 10:00 111 24 135/72 (93) 97 07/26/20 09:30 112 23 165/66 (99) 99 07/26/20 09:00 108 20 170/91 (117) 100 07/26/20 09:00 30 07/26/20 08:40 30 07/26/20 08:30 103 20 135/69 (91) 99 07/26/20 08:00 Mechanical Ventilator Mechanical Ventilator 07/26/20 08:00 98.7 97 12 91/50 (64) 100 07/26/20 08:00 40 07/26/20 08:00 92 07/26/20 07:25 97 17 40 07/26/20 07:00 97.1 94 14 94/57 (69) 100 07/26/20 06:30 109 14 07/26/20 06:30 109 22 163/79 (107) 98 07/26/20 06:00 111 22 155/73 (100) 98 07/26/20 05:30 112 22 160/70 (100) 100 07/26/20 05:00 110 21 137/82 (100) 97 07/26/20 04:30 100 17 150/85 (106) 100 07/26/20 04:00 Mechanical Ventilator Mechanical Ventilator 07/26/20 04:00 103 07/26/20 04:00 103 19 146/78 (100) 100 07/26/20 04:00 40 07/26/20 03:43 103 16 136/82 96 07/26/20 03:30 105 17 123/69 (87) 100 07/26/20 03:13 102 17 132/94 100 07/26/20 03:08 101 17 40 07/26/20 03:00 109 19 132/94 (107) 100 07/26/20 02:30 89 17 111/78 (89) 98 07/26/20 02:00 90 12 89/57 (68) 100 07/26/20 01:00 99.9 109 22 141/73 (95) 100 07/26/20 00:30 106 22 149/76 (100) 100 07/26/20 00:00 Mechanical Ventilator Mechanical Ventilator 07/26/20 00:00 102 21 140/96 (111) 100 07/25/20 23:00 91 17 120/70 (87) 100 07/25/20 22:56 91 16 40 07/25/20 22:30 91 12 102/56 (71) 100 07/25/20 22:00 86 12 87/56 (66) 100 07/25/20 21:30 88 12 80/52 (61) 100 07/25/20 21:00 93 15 101/55 (70) 100 07/25/20 20:30 106 22 114/52 (72) 99 07/25/20 20:00 107 07/25/20 20:00 Mechanical Ventilator Mechanical Ventilator 07/25/20 20:00 40 07/25/20 20:00 97.9 107 22 128/76 (93) 99 07/25/20 19:30 101 20 126/62 (83) 97 07/25/20 19:12 102 22 40 07/25/20 19:00 97 19 107/59 (75) 100 07/25/20 18:30 93 14 106/56 (73) 100 07/25/20 18:00 100 14 110/55 (73) 99 07/25/20 17:30 98 14 95/49 (64) 98 07/25/20 17:00 96 29 105/90 (95) 97 07/25/20 16:30 90 15 92/50 (64) 99 07/25/20 16:01 98.1 07/25/20 16:00 90 14 93/55 (68) 13 07/25/20 16:00 40 07/25/20 16:00 91 07/25/20 16:00 Mechanical Ventilator Mechanical Ventilator Status: sedated Condition: critical HEENT: atraumatic Lungs: rales, rhonchi Heart: HR/BP stable Abdomen: soft, non-tender Extremities: no C/C/E Micro: Microbiology Date/Time Source Procedure Growth Status 07/25/20 14:30 Urine,Clean Catch Urine Culture - Preliminary NO GROWTH Resulted 07/25/20 14:30 Sputum Gram Stain - Final Resulted 07/25/20 14:30 Sputum Sputum Culture Pending Resulted Accucheck: 112 Critical Care - Subjective ROS Limited/Unobtainable: Yes Condition: critical EKG Rhythm: Sinus Rhythm FI02: 30 Vent Support Breath Rate: 12 Vent Support Mode: AC Vent Tidal Volume: 600 Sputum Amount: Moderate PEEP: 0.0 PIP: 27 Tube Feeding Amount: 50 I&O: Intake and Output 07/25/20 07/26/20 19:00 07:00 Intake Total 1559.0 ml 1135.0 ml Output Total 825 ml 1250 ml Balance 734.0 ml -115.0 ml Free Water 45 ml IV Total 1104.0 ml 655.0 ml Tube Feeding 410 ml 480 ml Output Urine Total 825 ml 1250 ml ET-Tube: 7.5 ET Position: 25 Labs: Laboratory Tests Test 07/26/20 04:47 White Blood Count 14.6 K/UL (4.8-10.8) H Red Blood Count 2.77 M/UL (4.70-6.10) L Hemoglobin 8.4 G/DL (14.2-18.0) L Hematocrit 27.6 % (42.0-52.0) L Mean Corpuscular Volume 100 FL (80-99) H Mean Corpuscular Hemoglobin 30.3 PG (27.0-31.0) Mean Corpuscular Hemoglobin Concent 30.4 G/DL (32.0-36.0) L Red Cell Distribution Width 16.9 % (11.6-14.8) H Platelet Count 440 K/UL (150-450) Mean Platelet Volume 6.4 FL (6.5-10.1) L Neutrophils (%) (Auto) 82.3 % (45.0-75.0) H Lymphocytes (%) (Auto) 4.4 % (20.0-45.0) L Monocytes (%) (Auto) 5.5 % (1.0-10.0) Eosinophils (%) (Auto) 0.1 % (0.0-3.0) Basophils (%) (Auto) 7.7 % (0.0-2.0) H Erythrocyte Sedimentation Rate 81 MM/HR (0-20) H Sodium Level 140 MMOL/L (136-145) Potassium Level 4.6 MMOL/L (3.5-5.1) Chloride Level 107 MMOL/L (98-107) Carbon Dioxide Level 25 MMOL/L (21-32) Anion Gap 8 mmol/L (5-15) Blood Urea Nitrogen 12 mg/dL (7-18) Creatinine 1.0 MG/DL (0.55-1.30) Estimat Glomerular Filtration Rate > 60 mL/min (>60) Glucose Level 118 MG/DL (74-106) H Calcium Level 8.0 MG/DL (8.5-10.1) L Phosphorus Level 2.9 MG/DL (2.5-4.9) Magnesium Level 2.5 MG/DL (1.8-2.4) H Total Bilirubin 0.3 MG/DL (0.2-1.0) Aspartate Amino Transf (AST/SGOT) 25 U/L (15-37) Alanine Aminotransferase (ALT/SGPT) 26 U/L (12-78) Alkaline Phosphatase 146 U/L (46-116) H C-Reactive Protein, Quantitative 6.6 mg/dL (0.00-0.90) H Total Protein 6.8 G/DL (6.4-8.2) Albumin 1.5 G/DL (3.4-5.0) L Globulin 5.3 g/dL Albumin/Globulin Ratio 0.3 (1.0-2.7) L Kya Carreno MD Jul 26, 2020 15:48
--- NOTE | 2020-07-26 16:00 | NUR ---
NURSE NOTES: Pt seen by Dr Matt. Afebrile. No distress noted. Oral care provided.
--- NOTE | 2020-07-26 16:11 | Cardiology Report ---
APPROVED REPORT EKG Measurement Heart [id number] NM [id number] <Conclusion> Normal sinus rhythm Nonspecific ST and T wave abnormality Abnormal ECG
--- NOTE | 2020-07-26 16:41 | Cardiac Electrophysiology PN ---
Assessment/Plan Assessment/Plan 1. Accelerated junctional rhythm. Ruled out for AL Echo showed ejection fraction of 55%. 2. Long run of 31 beats of Nonsustained VT on 07/14/2020. Will need cardiac cath after stabilization. 3. Aníbal 30, Asystole while on the Vent due to resp failure/ likely mucus plug . S/P Code 4. Respiratory failure, on antibiotic and intubated on the vent 5. Septic shock. On Levophed 2 mcg and Midodrine 10 tid 6. History of previous COVID infection in May 2020 and active Covid in isolation 7. Dementia. SHAYY RN Subjective Subjective In SR in NAD in Covid isolation. In ICU on the Vent Fio2 decreased to 30% Had 31 beats of VT on 07/14/20 at 16:46 and 5 beats 07/19/20 Coded on 07/23/20 as sat dropped to 20% and got aníbal 30s and PEA and pulseless Got 3 Epi and 2 Bicarb. Levophed decreased to 2 mcg and is on Midodrine 10 tid Objective Last 24 Hour Vital Signs Date Time Temp Pulse Resp B/P (MAP) Pulse Ox O2 Delivery O2 Flow Rate FiO2 07/26/20 16:00 Mechanical Ventilator Mechanical Ventilator 07/26/20 16:00 30 07/26/20 16:00 92 18 111/59 (76) 100 07/26/20 16:00 90 07/26/20 16:00 98.2 92 18 111/59 (76) 100 07/26/20 15:30 91 17 111/55 (73) 100 07/26/20 15:05 90 16 30 07/26/20 15:00 92 20 97/53 (68) 99 07/26/20 14:45 93 21 103/55 (71) 99 07/26/20 14:30 99 18 110/62 (78) 99 07/26/20 14:15 104 23 117/63 (81) 99 07/26/20 14:00 106 21 138/59 (85) 98 07/26/20 13:45 113 21 147/77 (100) 95 07/26/20 13:30 108 21 135/84 (101) 98 07/26/20 13:15 109 25 173/78 (109) 100 07/26/20 13:01 128/50 07/26/20 13:00 98 23 134/91 (105) 97 07/26/20 12:45 97 20 128/50 (76) 100 07/26/20 12:30 93 22 115/63 (80) 99 07/26/20 12:15 93 22 121/62 (81) 99 07/26/20 12:00 30 07/26/20 12:00 Mechanical Ventilator Mechanical Ventilator 07/26/20 12:00 98.4 99 14 98/52 (67) 98 07/26/20 12:00 97 07/26/20 11:45 96 13 95/50 (65) 98 07/26/20 11:30 97 18 82/43 (56) 99 07/26/20 11:15 98 14 30 07/26/20 11:00 94 21 102/53 (69) 99 07/26/20 10:30 94 23 91/49 (63) 99 07/26/20 10:00 111 24 135/72 (93) 97 07/26/20 09:30 112 23 165/66 (99) 99 07/26/20 09:00 108 20 170/91 (117) 100 07/26/20 09:00 30 07/26/20 08:40 30 07/26/20 08:30 103 20 135/69 (91) 99 07/26/20 08:00 Mechanical Ventilator Mechanical Ventilator 07/26/20 08:00 98.7 97 12 91/50 (64) 100 07/26/20 08:00 40 07/26/20 08:00 92 07/26/20 07:25 97 17 40 07/26/20 07:00 97.1 94 14 94/57 (69) 100 07/26/20 06:30 109 14 07/26/20 06:30 109 22 163/79 (107) 98 07/26/20 06:00 111 22 155/73 (100) 98 07/26/20 05:30 112 22 160/70 (100) 100 07/26/20 05:00 110 21 137/82 (100) 97 07/26/20 04:30 100 17 150/85 (106) 100 07/26/20 04:00 Mechanical Ventilator Mechanical Ventilator 07/26/20 04:00 103 07/26/20 04:00 103 19 146/78 (100) 100 07/26/20 04:00 40 07/26/20 03:43 103 16 136/82 96 07/26/20 03:30 105 17 123/69 (87) 100 07/26/20 03:13 102 17 132/94 100 07/26/20 03:08 101 17 40 07/26/20 03:00 109 19 132/94 (107) 100 07/26/20 02:30 89 17 111/78 (89) 98 07/26/20 02:00 90 12 89/57 (68) 100 07/26/20 01:00 99.9 109 22 141/73 (95) 100 07/26/20 00:30 106 22 149/76 (100) 100 07/26/20 00:00 Mechanical Ventilator Mechanical Ventilator 07/26/20 00:00 102 21 140/96 (111) 100 07/25/20 23:00 91 17 120/70 (87) 100 07/25/20 22:56 91 16 40 07/25/20 22:30 91 12 102/56 (71) 100 07/25/20 22:00 86 12 87/56 (66) 100 07/25/20 21:30 88 12 80/52 (61) 100 07/25/20 21:00 93 15 101/55 (70) 100 07/25/20 20:30 106 22 114/52 (72) 99 07/25/20 20:00 107 07/25/20 20:00 Mechanical Ventilator Mechanical Ventilator 07/25/20 20:00 40 07/25/20 20:00 97.9 107 22 128/76 (93) 99 07/25/20 19:30 101 20 126/62 (83) 97 07/25/20 19:12 102 22 40 07/25/20 19:00 97 19 107/59 (75) 100 07/25/20 18:30 93 14 106/56 (73) 100 07/25/20 18:00 100 14 110/55 (73) 99 07/25/20 17:30 98 14 95/49 (64) 98 07/25/20 17:00 96 29 105/90 (95) 97 Intake and Output 07/25/20 07/26/20 19:00 07:00 Intake Total 1559.0 ml 1135.0 ml Output Total 825 ml 1250 ml Balance 734.0 ml -115.0 ml Free Water 45 ml IV Total 1104.0 ml 655.0 ml Tube Feeding 410 ml 480 ml Output Urine Total 825 ml 1250 ml Laboratory Tests Test 07/26/20 04:47 White Blood Count 14.6 K/UL (4.8-10.8) H Red Blood Count 2.77 M/UL (4.70-6.10) L Hemoglobin 8.4 G/DL (14.2-18.0) L Hematocrit 27.6 % (42.0-52.0) L Mean Corpuscular Volume 100 FL (80-99) H Mean Corpuscular Hemoglobin 30.3 PG (27.0-31.0) Mean Corpuscular Hemoglobin Concent 30.4 G/DL (32.0-36.0) L Red Cell Distribution Width 16.9 % (11.6-14.8) H Platelet Count 440 K/UL (150-450) Mean Platelet Volume 6.4 FL (6.5-10.1) L Neutrophils (%) (Auto) 82.3 % (45.0-75.0) H Lymphocytes (%) (Auto) 4.4 % (20.0-45.0) L Monocytes (%) (Auto) 5.5 % (1.0-10.0) Eosinophils (%) (Auto) 0.1 % (0.0-3.0) Basophils (%) (Auto) 7.7 % (0.0-2.0) H Erythrocyte Sedimentation Rate 81 MM/HR (0-20) H Sodium Level 140 MMOL/L (136-145) Potassium Level 4.6 MMOL/L (3.5-5.1) Chloride Level 107 MMOL/L (98-107) Carbon Dioxide Level 25 MMOL/L (21-32) Anion Gap 8 mmol/L (5-15) Blood Urea Nitrogen 12 mg/dL (7-18) Creatinine 1.0 MG/DL (0.55-1.30) Estimat Glomerular Filtration Rate > 60 mL/min (>60) Glucose Level 118 MG/DL (74-106) H Calcium Level 8.0 MG/DL (8.5-10.1) L Phosphorus Level 2.9 MG/DL (2.5-4.9) Magnesium Level 2.5 MG/DL (1.8-2.4) H Total Bilirubin 0.3 MG/DL (0.2-1.0) Aspartate Amino Transf (AST/SGOT) 25 U/L (15-37) Alanine Aminotransferase (ALT/SGPT) 26 U/L (12-78) Alkaline Phosphatase 146 U/L (46-116) H C-Reactive Protein, Quantitative 6.6 mg/dL (0.00-0.90) H Total Protein 6.8 G/DL (6.4-8.2) Albumin 1.5 G/DL (3.4-5.0) L Globulin 5.3 g/dL Albumin/Globulin Ratio 0.3 (1.0-2.7) L Microbiology Date/Time Source Procedure Growth Status 07/25/20 14:30 Urine,Clean Catch Urine Culture - Preliminary NO GROWTH Resulted 07/25/20 14:30 Sputum Gram Stain - Final Resulted 07/25/20 14:30 Sputum Sputum Culture Pending Resulted Objective HEAD AND NECK: No JVD. Orally intubated LUNGS: Coarse rhonchi. CARDIOVASCULAR: Irregular S1 and S2 with no gallop. ABDOMEN: Soft. EXTREMITIES: No pitting edema. Klever Matt MD Jul 26, 2020 16:41
--- NOTE | 2020-07-26 18:00 | NUR ---
NURSE NOTES: Pt repositioned and cleaned. Levophed turned off at this time for SBP in the 150s. No acute distress noted. Will continue to monitor.
--- NOTE | 2020-07-26 19:27 | NUR ---
NURSE HAND-OFF REPORT: Latest Vital Signs: Temperature 98.2 , Pulse 96 , B/P 103 /63 , Respiratory Rate 18 , O2 SAT 97 , Mechanical Ventilator, FiO2 30%. Vital Sign Comment: stable - levo off at 1800. EKG Rhythm: Sinus Rhythm Rhythm change?: N MD Notified?: Pt seen by Dr Shaka jacobo MD Response: n/a Latest Gonzalez Fall Score: 50 Fall Risk: High Risk Safety Measures: Call light Within Reach, Bed Alarm Zone 2, Side Rails Side Rails x3, Bed position Low and Locked. Fall Precautions: Yellow Socks Yellow Gown Door Sign Patient Fall Education Report given to FLORES Urena.
--- NOTE | 2020-07-26 20:00 | NUR ---
NURSE NOTES: received report from luzma post pt awake but pfeiffer not follows command moving upper extremities but weak hand implementation project manager o2 sat 99-100 no acute respiratory resp distress noted hr 91-100 sr-s tacy tolerating tube feeding no residual urinary output good will cont monitor
[2020-07-26] MEDS: Dyna-Hex 2% Top Sol 2oz TOPIC SCH (20:36)
--- NOTE | 2020-07-26 22:00 | NUR ---
NURSE NOTES: reposition and suction
[2020-07-27] VITALS (24 sets, daily range): BP systolic 90–136; BP diastolic 47–77
--- NOTE | 2020-07-27 | NUR ---
NURSE NOTES: bs 116 no coverage
[2020-07-27] MEDS: Midodrine 10mg tab ORAL SCH ×3 (01:15→16:53)
[2020-07-27] MEDS: Meropenem 1gm/NS 55ml IVPB SCH ×2 (03:32)
--- NOTE | 2020-07-27 04:00 | NUR ---
NURSE NOTES: complete bed bath
[2020-07-27 05:56] LABS: HEMATOCRIT 24.8 % (42.0-52.0); HEMOGLOBIN 7.5 G/DL (14.2-18.0); MEAN CORPUSCULAR VOLUME 99 FL (80-99); PLATELET COUNT 417 K/UL (150-450); RED BLOOD COUNT 2.51 M/UL (4.70-6.10); RED CELL DISTRIBUTION WIDTH 17.7 % (11.6-14.8); WHITE BLOOD COUNT 9.1 K/UL (4.8-10.8)
[2020-07-27] MEDS: NovoLOG Insulin Flexpen SUBQ SCH ×4 (06:00→17:07)
[2020-07-27 06:40] LABS: PHOSPHORUS 2.7 MG/DL (2.5-4.9)
[2020-07-27 06:42] LABS: ALANINE AMINOTRANSFERASE 24 U/L (12-78); ALBUMIN 1.4 G/DL (3.4-5.0); ALBUMIN/GLOBULIN RATIO 0.3 (1.0-2.7); ALKALINE PHOSPHATASE 123 U/L (46-116); ANION GAP 7 mmol/L (5-15); ASPARTATE AMINO TRANSFERASE 21 U/L (15-37); BILIRUBIN,TOTAL 0.3 MG/DL (0.2-1.0); BLOOD UREA NITROGEN 15 mg/dL (7-18); CARBON DIOXIDE 27 MMOL/L (21-32); CHLORIDE 107 MMOL/L (98-107); POTASSIUM 3.7 MMOL/L (3.5-5.1); SODIUM 141 MMOL/L (136-145)
--- NOTE | 2020-07-27 07:30 | NUR ---
NURSE NOTES: Received report from FLORES Urena. The patient is resting on the bed without acute distress or shortness of breath, but restless, agitated, and uncooperative in medical care. The patient is opening eyes spontaneously, eyes are tracking, but not following commands. Communication made by facial expression and body movement. SR to ST w/ HR 80-100s on the mortgage processor. The patient is orally intubated at following setting and oxygen saturation is 100%: ETT 7.5, Lipline @ 25, AC 12, TV 600, PEEP 0, and FiO2 30%. The patient has R nare NGT @ 55cm but is not in use until placement confirmation. Per FLORES Urena, the patient had episode of vomiting last night and not clear about NGT placement so pending KUB for reconfirmation of NGT placement. TF and NGT meds will be on hold until placement confirms. Diet order is Glucerna 1.2 @ 60mL/hr and will be resumed as soon as placement confirms. The patient has Wiley that is intact and draining by gravity and 50-100mL/hr UOP noted. Skin issue noted and dressing intact. The patient is on low airloss matress for pressure ulcer. The patient has JACQUIE double lumen PICC line but not clear about the placement per FLORES Urena since catheter is 10cm out from the hub while the previous nurses has been documenting that it has been 0.5cm out from the hub. FLORES Grier changed the dressing and secured the site but will not be used until placement confirmation. New IV was inserted just now. L hand 20G and L FA 20G PIVs those are intact and patent and running 1/2 NS @ 50mL/hr per order. The patient's bed in the lowest position, call light in reach, and fall and aspiration precaution reinforced. PIV sites intact and patent. Will follow up the lab and order. Will closely monitor the patient. Will continue plan of care. Addendum: 07/27/20 at 2221 by Hugo Bravo RN Standby Levophed on eMAR to keep SBP>90.
--- NOTE | 2020-07-27 07:44 | NUR ---
NURSE HAND-OFF REPORT: Latest Vital Signs: Temperature 98.8 , Pulse 96 , B/P 90 /49 , Respiratory Rate 12 , O2 SAT 98 , Mechanical Ventilator, O2 Flow Rate . Vital Sign Comment: EKG Rhythm: Sinus Rhythm Rhythm change?: N Notified?: Grecia Rivera MD Response: Latest Gonzalez Fall Score: 50 Fall Risk: High Risk Safety Measures: Call light Within Reach, Bed Alarm Zone 2, Side Rails Side Rails x3, Bed position Low and Locked. Fall Precautions: Yellow Socks Yellow Gown Door Sign Patient Fall Education Report given to .
--- NOTE | 2020-07-27 07:45 | NUR ---
NURSE NOTES: Vent weaning trial started per Dr. Carreno's order. The patient is tolerating well. Will closely monitor the patient. Will continue plan of care.
--- NOTE | 2020-07-27 08:00 | NUR ---
NURSE NOTES: Initial vital signs taken. Initial nursing assessment done. NGT will not be used until confirmation of the placement. JACQUIE PICC line will not be used until placement confirms. L hand and L FA PIVs are intact and patent. Tolerating weaning well. Large amount of secretions and thick plug noted. q15-30 minutes suction being done to clear the secretions. Will closely monitor the patient. Will continue plan of care.
--- NOTE | 2020-07-27 08:13 | NUR ---
RESPIRATORY THERAPY NOTES: Weaning started at 0745. Placed on PS +8 PEEP +0 FIO2 30%. Patient currently tolerating well RSBI 70, SPONT RR 24, SPONT VT 543, HR 100, SPO2 98%. Will continue to monitor and draw ABG in 1 hour.
--- NOTE | 2020-07-27 08:30 | NUR ---
NURSE NOTES: Dr. Carreno was notified regarding following patient's conditions: [id number] ETT and oral suction due to large amount of secretions, unclear placement of NGT and PICC line, SBT from 0745 with good toleration, abnormal labs including Hgb from 8.[address] Carreno ordered new PICC line placement and old PICC line removal by radiology, KUB for NGT placement, and 1 unit pRBC transfusion for Hgb drop. Will carry out the order as soon as possible. Will closely monitor the patient. Will continue plan of care.
[2020-07-27] MEDS: Heparin 5000 units/ml inj SUBQ SCH ×2 (09:00→20:39)
--- NOTE | 2020-07-27 09:00 | NUR ---
NURSE NOTES: The patient started to become tachycardic and tachypnic with high RR. ABG drawn by RT and put the patient back on AC mode. Notified Dr. Carreno regarding weaning trial and ABG result after SBT. Per Dr. Carreno, no more weaning today. Will closely monitor the patient. Will continue plan of care.
--- NOTE | 2020-07-27 09:00 | NUR ---
RESPIRATORY THERAPY NOTES: Wenaing ended at 0900 bc SOB. Placed back onto ACVC 12, 600, 30%, +0.
--- NOTE | 2020-07-27 09:13 | Infectious Diseases Prog Note ---
Assessment/Plan 79yo M with: Respiratory code 2ry to mucus plug 07/23 Septic Shock- -recurrent Fever, recurrent, low grade;SP Leukocytosis; recurrent; increased Acute hypoxic resp failure, on NRB mask> 4l NC; back on NRB, desaturation 07/09 > intubated 07/17 Pneumonia- >HAP Hx of COVID19 PNA 05/20/2007/25 Resp cx +SA, nl resp bobby UCx neg 07/24 COVID PCR neg --07/21 CXR: Bilateral infiltrates in a peribronchovascular distribution are unchanged. Left pleural effusion is unchanged. --07/19 CXR: Persistent bilateral patchy pulmonary opacities, most prominent in the left lower lung. --07/18 ucx neg sp cx MRSA (colonizer at this point) Bcx Neg --07/13 Bcx Neg 07/10 Sp cx MRSA (Vancomycin APOLONIA 1), ESBL E.coli 07/03 BCx NTD UA 15-20 WBC, UCx Neg 07/03 COVID rapid neg; 07/06 rapid COVID PCR + (from prior infection)- not new infection Flu A/B neg CXR: L pna Resp cx MRSA MELANIE on CKD, improving SNF resident ([facility]) Non-verbal VRE and MRSA colonized Plan: Stop meropenem #14/ for ESBL pna Cont Zyvoz #4 for MRSA coverage given mucus plug and worsening hemodynamics, will likely stop soon -07/21 SP Micafungin #4 -07/17 SP IV Vancomycin #15 -07/13 SP Zosyn #4 -07/06 SP Cefepime #4 -07/04 SP Flagyl # Monitor CBC/CMP Monitor resp status Monitor temp curve and hemodynamics D/w RN Thank you for this consult. [facility] will continue to follow. Subjective Allergies: Coded Allergies: No Known Allergies (Unverified , 04/30/12) AF WBC improved to 9.1 NAD on vent Levophed off Still w/ thick mucus plugs Failed weaning yesterday Objective Last 24 Hour Vital Signs Date Time Temp Pulse Resp B/P (MAP) Pulse Ox O2 Delivery O2 Flow Rate FiO2 07/27/20 08:12 99 07/27/20 07:29 98 24 30 30 07/27/20 07:00 96 12 90/49 (63) 98 07/27/20 06:00 97 12 97/52 (67) 96 07/27/20 06:00 100 56 07/27/20 05:00 108 13 96/48 (64) 93 07/27/20 04:00 101 18 124/55 (78) 98 07/27/20 04:00 Mechanical Ventilator Mechanical Ventilator 07/27/20 04:00 30 07/27/20 04:00 100 07/27/20 03:56 116 22 30 07/27/20 03:00 97 13 95/47 (63) 97 07/27/20 02:00 101 22 124/59 (80) 100 07/27/20 01:00 94/59 (71) 07/27/20 00:00 30 07/27/20 00:00 Mechanical Ventilator Mechanical Ventilator 07/27/20 00:00 100 07/27/20 00:00 95 07/27/20 00:00 98.8 90 22 93/63 (73) 98 07/27/20 00:00 30 07/26/20 23:15 96 13 30 07/26/20 23:00 92 15 97/58 (71) 98 07/26/20 22:00 95 12 91/49 (63) 98 07/26/20 21:00 94 13 108/58 (75) 99 07/26/20 20:00 Mechanical Ventilator Mechanical Ventilator 07/26/20 20:00 30 07/26/20 20:00 98.5 93 21 105/67 (80) 99 07/26/20 20:00 98 07/26/20 19:37 95 15 30 07/26/20 19:00 96 18 103/63 (76) 97 07/26/20 18:45 100 18 107/62 (77) 95 07/26/20 18:30 104 25 115/61 (79) 96 07/26/20 18:15 111 27 111/62 (78) 99 07/26/20 18:00 116 23 157/131 (140) 96 07/26/20 17:41 100 18 115/61 99 07/26/20 17:30 120 25 180/89 (119) 96 07/26/20 17:11 105 23 113/53 99 07/26/20 17:00 95 19 113/53 (73) 100 07/26/20 16:30 91 18 106/61 (76) 99 07/26/20 16:00 Mechanical Ventilator Mechanical Ventilator 07/26/20 16:00 30 07/26/20 16:00 90 07/26/20 16:00 98.2 92 18 111/59 (76) 100 07/26/20 15:30 91 17 111/55 (73) 100 07/26/20 15:05 90 16 30 07/26/20 15:00 92 20 97/53 (68) 99 07/26/20 14:45 93 21 103/55 (71) 99 07/26/20 14:30 99 18 110/62 (78) 99 07/26/20 14:15 104 23 117/63 (81) 99 07/26/20 14:00 106 21 138/59 (85) 98 07/26/20 13:45 113 21 147/77 (100) 95 07/26/20 13:30 108 21 135/84 (101) 98 07/26/20 13:15 109 25 173/78 (109) 100 07/26/20 13:01 128/50 07/26/20 13:00 98 23 134/91 (105) 97 07/26/20 12:45 97 20 128/50 (76) 100 07/26/20 12:30 93 22 115/63 (80) 99 07/26/20 12:15 93 22 121/62 (81) 99 07/26/20 12:00 30 07/26/20 12:00 Mechanical Ventilator Mechanical Ventilator 07/26/20 12:00 98.4 99 14 98/52 (67) 98 07/26/20 12:00 97 07/26/20 11:45 96 13 95/50 (65) 98 07/26/20 11:30 97 18 82/43 (56) 99 07/26/20 11:15 98 14 30 07/26/20 11:00 94 21 102/53 (69) 99 07/26/20 10:30 94 23 91/49 (63) 99 07/26/20 10:00 111 24 135/72 (93) 97 07/26/20 09:30 112 23 165/66 (99) 99 Height (Feet): 5 Height (Inches): 4.00 Weight (Pounds): 130 Gen: NAD in bed HEENT: NCAT CV: RRR Pulm: BL chest rise on vent Abd: Soft, NTND Ext: No c/c/e Neuro: Eyes closed, not interactive Microbiology Date/Time Source Procedure Growth Status 07/25/20 14:30 Urine,Clean Catch Urine Culture - Preliminary NO GROWTH Resulted 07/25/20 14:30 Sputum Gram Stain - Final Resulted 07/25/20 14:30 Sputum Sputum Culture Pending Resulted Laboratory Tests Test 07/27/20 04:24 07/27/20 05:01 07/27/20 08:50 POC Whole Blood Glucose Pending White Blood Count 9.1 K/UL (4.8-10.8) Red Blood Count 2.51 M/UL (4.70-6.10) L Hemoglobin 7.5 G/DL (14.2-18.0) L Hematocrit 24.8 % (42.0-52.0) L Mean Corpuscular Volume 99 FL (80-99) Mean Corpuscular Hemoglobin 30.1 PG (27.0-31.0) Mean Corpuscular Hemoglobin Concent 30.4 G/DL (32.0-36.0) L Red Cell Distribution Width 17.7 % (11.6-14.8) H Platelet Count 417 K/UL (150-450) Mean Platelet Volume 7.3 FL (6.5-10.1) Neutrophils (%) (Auto) % (45.0-75.0) Lymphocytes (%) (Auto) % (20.0-45.0) Monocytes (%) (Auto) % (1.0-10.0) Eosinophils (%) (Auto) % (0.0-3.0) Basophils (%) (Auto) % (0.0-2.0) Sodium Level 141 MMOL/L (136-145) Potassium Level 3.7 MMOL/L (3.5-5.1) Chloride Level 107 MMOL/L (98-107) Carbon Dioxide Level 27 MMOL/L (21-32) Anion Gap 7 mmol/L (5-15) Blood Urea Nitrogen 15 mg/dL (7-18) Creatinine 1.0 MG/DL (0.55-1.30) Estimat Glomerular Filtration Rate > 60 mL/min (>60) Glucose Level 125 MG/DL (74-106) H Calcium Level 8.0 MG/DL (8.5-10.1) L Phosphorus Level 2.7 MG/DL (2.5-4.9) Magnesium Level 2.5 MG/DL (1.8-2.4) H Total Bilirubin 0.3 MG/DL (0.2-1.0) Aspartate Amino Transf (AST/SGOT) 21 U/L (15-37) Alanine Aminotransferase (ALT/SGPT) 24 U/L (12-78) Alkaline Phosphatase 123 U/L (46-116) H Total Protein 6.3 G/DL (6.4-8.2) L Albumin 1.4 G/DL (3.4-5.0) L Globulin 4.9 g/dL Albumin/Globulin Ratio 0.3 (1.0-2.7) L Arterial Blood pH 7.489 (7.350-7.450) Arterial Blood Partial Pressure CO2 31.9 mmHg (35.0-45.0) L Arterial Blood Partial Pressure O2 66.8 mmHg (75.0-100.0) L Arterial Blood HCO3 23.7 mmol/L (22.0-26.0) Arterial Blood Oxygen Saturation 93.7 % (95-100) L Arterial Blood Base Excess 0.6 (-2-2) Richard Test Positive Current Medications Medications (Trade) Dose Ordered Sig/Ankush Route PRN Reason Start Time Stop Time Status Last Admin Dose Admin Acetaminophen (Tylenol) 650 mg Q4H PRN ORAL Temp >100.5 07/03/20 20:30 08/02/20 20:29 07/16/20 22:39 Chlorhexidine Gluconate (Darcy-Hex 2%) 1 applic DAILY@2000 TOPIC 07/17/20 20:00 10/15/20 19:59 07/26/20 20:36 Dextrose (Dextrose 50%) 50 ml Q30M PRN IV Hypoglycemia 07/03/20 22:45 10/01/20 22:44 Heparin Sodium (Porcine) (Heparin 5000 units/ml) 5,000 units EVERY 12 HOURS SUBQ 07/03/20 21:00 08/17/20 20:59 07/26/20 20:37 Insulin Aspart (NovoLOG) EVERY 6 HOURS SUBQ 07/13/20 06:00 10/02/20 06:29 07/26/20 00:30 Linezolid 300 ml @ 300 mls/hr Q12HR IVPB 07/24/20 12:00 07/31/20 11:59 07/26/20 20:36 Lorazepam (Ativan 2mg/ml 1ml) 2 mg Q4H PRN IV For Anxiety 07/21/20 13:45 07/28/20 13:44 07/26/20 17:11 Meropenem 1 gm/ Sodium Chloride 55 ml @ 110 mls/hr Q8HR@0400,1200,2000 IVPB 07/22/20 12:00 07/27/20 11:59 07/27/20 03:32 Midodrine (Pro-Amatine) 10 mg Q8H ORAL 07/22/20 17:00 10/20/20 16:59 07/27/20 01:15 Morphine Sulfate (Morphine Sulfate) 2 mg Q6H PRN IVP moderate pain 07/21/20 13:45 07/28/20 13:44 Nitroglycerin (Ntg) 0.4 mg Q5M PRN SL Prn Chest Pain 07/03/20 20:30 08/02/20 20:29 Norepinephrine Bitartrate 250 ml @ 0 mls/hr Q24H IV 07/26/20 13:00 07/29/20 12:59 07/26/20 13:01 Ondansetron HCl (Zofran) 4 mg Q6H PRN IVP Nausea & Vomiting 07/03/20 20:30 08/02/20 20:29 Pantoprazole (Protonix) 40 mg DAILY IV 07/18/20 09:00 08/17/20 08:59 07/26/20 08:07 Polyethylene Glycol (Miralax) 17 gm DAILYPRN PRN ORAL Constipation 07/03/20 20:30 08/02/20 20:29 Promethazine HCl/ Codeine (Phenergan with Codeine) 5 ml Q4H PRN ORAL For Cough 07/03/20 20:30 08/02/20 20:29 Sodium Chloride 1,000 ml @ 50 mls/hr Q20H IV 07/17/20 16:00 08/16/20 15:59 07/26/20 20:00 Lorie Ramirez M.D. 16, 2020 09:13
[2020-07-27] MEDS: Pantoprazole Inj IV SCH (09:14)
--- NOTE | 2020-07-27 10:00 | NUR ---
NURSE NOTES: Medications administered per order. The patient tolerated well. Unable to administer NGT medication since placement not confirmed yet. Heparin on hold for PICC line placement. Will closely monitor the patient. Will continue plan of care.
--- NOTE | 2020-07-27 10:21 | NUR ---
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 * Increased kcal and pro needs r/t wound healing as evidenced by sacral pressure injury stage 2. CURRENT TF:Glucerna 1.2 @ 60ml/hr x24 hrs ENTERAL NUTRITION RECOMMENDATIONS: Glucerna 1.2 @ 55ml/hr x24 hrs to provide 1320ml, 1584kcal, 79g prot, 1063ml free water - LOWER goal rate to 55ml/hr x 24 hrs : s/p intubation w/ decreased kcal needs - HOB over 30 degrees/ H2O flush per MD ADDITIONAL RECOMMENDATIONS: * Calibrated bedscale wt for accurate CBW * Monitor hemodynamic stability: s/p code blue (07/23), NE currently held * Monitor lytes, replete as needed * Wound care: add Sushil BID via PEG add Vit C 250mg QD . .
--- NOTE | 2020-07-27 10:30 | NUR ---
NURSE NOTES: Dr. Carreno at the bedside assessed the patient. Notified the patient's condition as mentioned on the previous note. Dr. Carreno ordered bilateral soft wrist restraints for the patient's safety and trial of pulling out durable medical equipment repairer. Will initiate bilateral soft wrist restraints per order. Will closely monitor the patient. Will continue plan of care.
--- NOTE | 2020-07-27 10:51 | Diagnostic Imaging Report ---
Indication: Reason For Exam: Enteric tube placement Technique: Serial frontal views of the abdomen Comparison: Abdominal radiograph dated 06/30/2020 Findings: Bowel gas pattern is nonspecific, with scattered loops of small bowel demonstrating mild gaseous distention. Gas is seen throughout the colon. Initial radiograph demonstrates enteric tube placement with tip terminating in expected location of the gastric bubble, below the diaphragm. Subsequent radiograph demonstrates advancement, with tip of enteric tube in the expected location of the gastric antrum or proximal duodenum. Lung bases demonstrate small bilateral pleural effusions with associated airspace opacities. IMPRESSION: 1. Nonspecific bowel gas pattern. 2. Enteric tube in appropriate position.
[2020-07-27] MEDS ORDERED: Lidocaine 1% Plain 30 ml INJ ONE (11:00)
[2020-07-27] MEDS ORDERED: Heparin1,000 units/500ml Premix(Conc:2 units/ml) IV ONE (11:00)
--- NOTE | 2020-07-27 11:00 | NUR ---
NURSE NOTES: NGT placement confirmed by KUB. Per deepali Schroeder to use NGT. Will administer late dose of Midodrine NGT meds and will resume feeding. Will closely monitor the patient. Will continue plan of care.
--- NOTE | 2020-07-27 11:30 | NUR ---
NURSE NOTES: NGT medication administered per order. Resumed NGT feeding Glucerna 1.2 @ 15mL/hr due to large amount of secretions and high risk of aspiration. Still suctioning the patient via oral and ETT q 15-30minutes. Will closely monitor the patient. Will continue plan of care.
--- NOTE | 2020-07-27 11:42 | Diagnostic Imaging Report ---
Indication: Reason For Exam: DYSPNEA Technique: Single AP view of the chest. Comparison: Chest radiograph dated 07/26/2020 Findings: The cardiomediastinal silhouette is is unchanged in appearance. Again demonstrated is bilateral airspace disease characterized by bibasilar streaky airspace opacities and diffuse interstitial opacities. Increasing left basilar consolidation. Unchanged small bilateral pleural effusions. No pneumothorax. Unchanged enteric tube, endotracheal tube. Right PICC has been retracted, now terminates in the expected location of the axillary vein. IMPRESSION: 1. Slight increase in left basilar airspace consolidation. 2. Persistent bilateral pleural effusions with associated compressive atelectasis. 3. Interval retraction of right PICC, now terminating in the expected location of the right axillary vein.
--- NOTE | 2020-07-27 11:52 | Cardiac Electrophysiology PN ---
Assessment/Plan Assessment/Plan 1. Accelerated junctional rhythm. Ruled out for PR Echo showed ejection fraction of 55%. 2. Long run of 31 beats of Nonsustained VT on 07/14/2020. Cardiac cath after stabilization. 3. Jose 30, Asystole while on the Vent due to resp failure/ likely mucus plug . S/P Code 4. Respiratory failure, on antibiotic and intubated on the vent 5. Septic shock. Off Levophed and on Midodrine 10 tid 6. History of previous COVID infection in May 2020 and active Covid in isolation 7. Dementia. SHAYY RN Subjective Subjective In SR in NAD in Covid isolation. In ICU on the Vent Fio2 decreased to 30% Had 31 beats of VT on 07/14/20 at 16:46 and 5 beats 07/19/20 Coded on 07/23/20 as sat dropped to 20% and got jose 30s and PEA and pulseless Got 3 Epi and 2 Bicarb. Off Levophed on Midodrine 10 tid PICC line came out and NGT is misplaced Objective Last 24 Hour Vital Signs Date Time Temp Pulse Resp B/P (MAP) Pulse Ox O2 Delivery O2 Flow Rate FiO2 07/27/20 10:54 93 14 30 07/27/20 08:12 99 07/27/20 07:29 98 24 30 30 07/27/20 07:00 96 12 90/49 (63) 98 07/27/20 06:00 97 12 97/52 (67) 96 07/27/20 06:00 100 56 07/27/20 05:00 108 13 96/48 (64) 93 07/27/20 04:00 101 18 124/55 (78) 98 07/27/20 04:00 Mechanical Ventilator Mechanical Ventilator 07/27/20 04:00 30 07/27/20 04:00 100 07/27/20 03:56 116 22 30 07/27/20 03:00 97 13 95/47 (63) 97 07/27/20 02:00 101 22 124/59 (80) 100 07/27/20 01:00 94/59 (71) 07/27/20 00:00 30 07/27/20 00:00 Mechanical Ventilator Mechanical Ventilator 07/27/20 00:00 100 07/27/20 00:00 95 07/27/20 00:00 98.8 90 22 93/63 (73) 98 07/27/20 00:00 30 07/26/20 23:15 96 13 30 07/26/20 23:00 92 15 97/58 (71) 98 07/26/20 22:00 95 12 91/49 (63) 98 07/26/20 21:00 94 13 108/58 (75) 99 07/26/20 20:00 Mechanical Ventilator Mechanical Ventilator 07/26/20 20:00 30 07/26/20 20:00 98.5 93 21 105/67 (80) 99 07/26/20 20:00 98 07/26/20 19:37 95 15 30 07/26/20 19:00 96 18 103/63 (76) 97 07/26/20 18:45 100 18 107/62 (77) 95 07/26/20 18:30 104 25 115/61 (79) 96 07/26/20 18:15 111 27 111/62 (78) 99 07/26/20 18:00 116 23 157/131 (140) 96 07/26/20 17:41 100 18 115/61 99 07/26/20 17:30 120 25 180/89 (119) 96 07/26/20 17:11 105 23 113/53 99 07/26/20 17:00 95 19 113/53 (73) 100 07/26/20 16:30 91 18 106/61 (76) 99 07/26/20 16:00 Mechanical Ventilator Mechanical Ventilator 07/26/20 16:00 30 07/26/20 16:00 90 07/26/20 16:00 98.2 92 18 111/59 (76) 100 07/26/20 15:30 91 17 111/55 (73) 100 07/26/20 15:05 90 16 30 07/26/20 15:00 92 20 97/53 (68) 99 07/26/20 14:45 93 21 103/55 (71) 99 07/26/20 14:30 99 18 110/62 (78) 99 07/26/20 14:15 104 23 117/63 (81) 99 07/26/20 14:00 106 21 138/59 (85) 98 07/26/20 13:45 113 21 147/77 (100) 95 07/26/20 13:30 108 21 135/84 (101) 98 07/26/20 13:15 109 25 173/78 (109) 100 07/26/20 13:01 128/50 07/26/20 13:00 98 23 134/91 (105) 97 07/26/20 12:45 97 20 128/50 (76) 100 07/26/20 12:30 93 22 115/63 (80) 99 07/26/20 12:15 93 22 121/62 (81) 99 07/26/20 12:00 30 07/26/20 12:00 Mechanical Ventilator Mechanical Ventilator 07/26/20 12:00 98.4 99 14 98/52 (67) 98 07/26/20 12:00 97 Intake and Output 07/26/20 07/27/20 18:59 06:59 Intake Total 1603.75 ml 1215 ml Output Total 1650 ml 690 ml Balance -46.25 ml 525 ml Free Water 30 ml 60 ml IV Total 953.75 ml 555 ml Tube Feeding 620 ml 600 ml Output Urine Total 1650 ml 690 ml Laboratory Tests Test 07/27/20 04:24 07/27/20 05:01 07/27/20 08:50 POC Whole Blood Glucose Pending White Blood Count 9.1 K/UL (4.8-10.8) Red Blood Count 2.51 M/UL (4.70-6.10) L Hemoglobin 7.5 G/DL (14.2-18.0) L Hematocrit 24.8 % (42.0-52.0) L Mean Corpuscular Volume 99 FL (80-99) Mean Corpuscular Hemoglobin 30.1 PG (27.0-31.0) Mean Corpuscular Hemoglobin Concent 30.4 G/DL (32.0-36.0) L Red Cell Distribution Width 17.7 % (11.6-14.8) H Platelet Count 417 K/UL (150-450) Mean Platelet Volume 7.3 FL (6.5-10.1) Neutrophils (%) (Auto) % (45.0-75.0) Lymphocytes (%) (Auto) % (20.0-45.0) Monocytes (%) (Auto) % (1.0-10.0) Eosinophils (%) (Auto) % (0.0-3.0) Basophils (%) (Auto) % (0.0-2.0) Sodium Level 141 MMOL/L (136-145) Potassium Level 3.7 MMOL/L (3.5-5.1) Chloride Level 107 MMOL/L (98-107) Carbon Dioxide Level 27 MMOL/L (21-32) Anion Gap 7 mmol/L (5-15) Blood Urea Nitrogen 15 mg/dL (7-18) Creatinine 1.0 MG/DL (0.55-1.30) Estimat Glomerular Filtration Rate > 60 mL/min (>60) Glucose Level 125 MG/DL (74-106) H Calcium Level 8.0 MG/DL (8.5-10.1) L Phosphorus Level 2.7 MG/DL (2.5-4.9) Magnesium Level 2.5 MG/DL (1.8-2.4) H Total Bilirubin 0.3 MG/DL (0.2-1.0) Aspartate Amino Transf (AST/SGOT) 21 U/L (15-37) Alanine Aminotransferase (ALT/SGPT) 24 U/L (12-78) Alkaline Phosphatase 123 U/L (46-116) H Total Protein 6.3 G/DL (6.4-8.2) L Albumin 1.4 G/DL (3.4-5.0) L Globulin 4.9 g/dL Albumin/Globulin Ratio 0.3 (1.0-2.7) L Arterial Blood pH 7.489 (7.350-7.450) Arterial Blood Partial Pressure CO2 31.9 mmHg (35.0-45.0) L Arterial Blood Partial Pressure O2 66.8 mmHg (75.0-100.0) L Arterial Blood HCO3 23.7 mmol/L (22.0-26.0) Arterial Blood Oxygen Saturation 93.7 % (95-100) L Arterial Blood Base Excess 0.6 (-2-2) Richard Test Positive Microbiology Date/Time Source Procedure Growth Status 07/25/20 14:30 Urine,Clean Catch Urine Culture - Preliminary NO GROWTH Resulted 07/25/20 14:30 Sputum Gram Stain - Final Resulted 07/25/20 14:30 Sputum Sputum Culture Pending Resulted Objective HEAD AND NECK: No JVD. Orally intubated LUNGS: Coarse rhonchi. CARDIOVASCULAR: Irregular S1 and S2 with no gallop. ABDOMEN: Soft. EXTREMITIES: No pitting edema. Klever Matt MD Jul 27, 2020 11:52
--- NOTE | 2020-07-27 12:00 | NUR ---
NURSE NOTES: BS 115 noted. No coverage. The patient is asymptomatic. Will closely monitor the patient. Will continue plan of care.
[2020-07-27] MEDS: Norepinephrine 4mg/NS Premix 250 ML IV SCH (13:00)
--- NOTE | 2020-07-27 13:05 | NUR ---
NURSE NOTES: Tylenol administered per PRN order for mild grade fever. Cooling measure applied. Will recheck body temperature after intervention. Will closely monitor the patient. Will continue plan of care.
--- NOTE | 2020-07-27 13:36 | Nephrology Progress Note ---
Assessment/Plan Problem List: (1) Dehydration (2) MELANIE (acute kidney injury) (3) Renal failure (ARF), acute on chronic (4) Hypoxia (5) Acute encephalopathy (6) Electrolyte imbalance Assessment 79-year-old male is admitted with acute hypoxic respiratory failure most likely secondary to pneumonia and sepsis, UTI. Acute on chronic renal failure Dehydration Electrolyte imbalances, hypernatremia Hypoalbuminemia Diabetes type 2 History of congestive heart failure Hypertension Hyperlipemia Alzheimer's Previous COVID-19 infection in May 2020 Plan July 27: Remains in ICU. Full code. Labs reviewed. Remains intubated. Stable renal parameters. July 26: In ICU. Full code. Discussed with RN. Stable renal parameters. July 25: Seen in ICU. Discussed with FLORES Holliday. Flomax discontinued. Labs reviewed. Stable from renal standpoint of view. July 24: Seen in ICU. Discussed with FLORES Holliday. Remains on pressor. Electrolyte abnormalities noted and addressed. Continue per consultants. Patient remains full code. July 23: Seen in ICU. Discussed with FLORES Barrera. Blood pressure remains a little requiring pressors. Labs reviewed. Stable renal parameters. Continue per consultants. July 22: Remains intubated. Full code. Blood pressure borderline low. Will increase midodrine dose. Discussed with RN. Continue to monitor renal parameters and electrolytes. July 21: Intubated. Full code. Labs reviewed. Stable from renal standpoint of view. Continue per consultants. July 20: Remains intubated. Full code. Labs reviewed. Electrolytes within normal limit. Continue per consultants. July 19: In ICU. Remains intubated on ventilator. Remains full code. Low potassium addressed. Blood pressure fluctuating. Continue per consultants. July 18: Patient in ICU. Intubated on ventilator. On 6 mics of Levophed. Will give 100 cc albumin 25%. K-Phos IV ordered. Continue per consultants. Continue monitor renal parameters and electrolytes. July 17: Status unchanged. Transfer to [facility] for seizure. Stable from renal standpoint to view. Continue per consultants. July 16: Status quo. Labs reviewed. Renal parameters stable. Continue per consultants. July 15: On nonrebreather mask. Labs reviewed. Renal parameters stable.Continue per ui application developer. Clinically unchanged. July 14: On nonrebreather mask. Inflammatory markers gradually declining. Renal parameters stable. Continue per pulmonary. July 13: Remains on nonrebreather mask. Inflammatory markers remain elevated. Renal parameters somewhat stable. Continue per pulmonary and ID. Remains full code. July 12: Patient on nonrebreather mask. Labs noted. Serum creatinine down to 1.3. Continue per consultants. July 11: Patient on nonrebreather mask. Transfer to telemetry when seen this morning. Labs noted. Continue per consultants. Serum creatinine erin to 1.7. Continue to monitor renal parameters. Continue to monitor vancomycin level July 10: Patient is not doing well clinically. Mild respiratory distress. ABG noted. Somewhat hypoxic. CBC and chemistry panel ordered. Discussed with FLORES Cho. Will defer to pulmonary management to specialist. Continue per ID. Renal parameters remained stable as of July 09. July 09: Labs reviewed. Renal parameters stable. Continue per consultants. July 08: Labs reviewed. Potassium via NG tube ordered. IV fluids stopped. Continue per consultants. July 07: Labs reviewed. Low potassium and low phosphorus replaced. Continue per consultants. Remains stable from renal standpoint of view. July 06: Patient remains n.p.o. IV fluid down to 50 cc an hour. Potassium supplement intravenously ordered. Continue per consultants. Previously: Patient is n.p.o., will continue on IV fluid of D5W 75 cc an hour We will monitor electrolytes and renal parameters Avoid nephrotoxic's Start p.o. when he clears by speech therapist, meanwhile aspiration precautions Keep the blood pressure and blood sugar in check Per orders Subjective ROS Limited/Unobtainable: Yes Objective Objective Last 24 Hour Vital Signs Date Time Temp Pulse Resp B/P (MAP) Pulse Ox O2 Delivery O2 Flow Rate FiO2 07/27/20 10:54 93 14 30 07/27/20 08:12 99 07/27/20 07:29 98 24 30 30 07/27/20 07:00 96 12 90/49 (63) 98 07/27/20 06:00 97 12 97/52 (67) 96 07/27/20 06:00 100 56 07/27/20 05:00 108 13 96/48 (64) 93 07/27/20 04:00 101 18 124/55 (78) 98 07/27/20 04:00 Mechanical Ventilator Mechanical Ventilator 07/27/20 04:00 30 07/27/20 04:00 100 07/27/20 03:56 116 22 30 07/27/20 03:00 97 13 95/47 (63) 97 07/27/20 02:00 101 22 124/59 (80) 100 07/27/20 01:00 94/59 (71) 07/27/20 00:00 30 07/27/20 00:00 Mechanical Ventilator Mechanical Ventilator 07/27/20 00:00 100 07/27/20 00:00 95 07/27/20 00:00 98.8 90 22 93/63 (73) 98 07/27/20 00:00 30 07/26/20 23:15 96 13 30 07/26/20 23:00 92 15 97/58 (71) 98 07/26/20 22:00 95 12 91/49 (63) 98 07/26/20 21:00 94 13 108/58 (75) 99 07/26/20 20:00 Mechanical Ventilator Mechanical Ventilator 07/26/20 20:00 30 07/26/20 20:00 98.5 93 21 105/67 (80) 99 07/26/20 20:00 98 07/26/20 19:37 95 15 30 07/26/20 19:00 96 18 103/63 (76) 97 07/26/20 18:45 100 18 107/62 (77) 95 07/26/20 18:30 104 25 115/61 (79) 96 07/26/20 18:15 111 27 111/62 (78) 99 07/26/20 18:00 116 23 157/131 (140) 96 07/26/20 17:41 100 18 115/61 99 07/26/20 17:30 120 25 180/89 (119) 96 07/26/20 17:11 105 23 113/53 99 07/26/20 17:00 95 19 113/53 (73) 100 07/26/20 16:30 91 18 106/61 (76) 99 07/26/20 16:00 Mechanical Ventilator Mechanical Ventilator 07/26/20 16:00 30 07/26/20 16:00 90 07/26/20 16:00 98.2 92 18 111/59 (76) 100 07/26/20 15:30 91 17 111/55 (73) 100 07/26/20 15:05 90 16 30 07/26/20 15:00 92 20 97/53 (68) 99 07/26/20 14:45 93 21 103/55 (71) 99 07/26/20 14:30 99 18 110/62 (78) 99 07/26/20 14:15 104 23 117/63 (81) 99 07/26/20 14:00 106 21 138/59 (85) 98 07/26/20 13:45 113 21 147/77 (100) 95 Intake and Output 07/26/20 07/27/20 19:00 07:00 Intake Total 1573.75 ml 1155 ml Output Total 1500 ml 690 ml Balance 73.75 ml 465 ml Free Water 30 ml 60 ml IV Total 903.75 ml 555 ml Tube Feeding 640 ml 540 ml Output Urine Total 1500 ml 690 ml Laboratory Tests 07/27/20 04:24: POC Whole Blood Glucose [Pending] 07/27/20 05:01: White Blood Count 9.1, Red Blood Count 2.51L, Hemoglobin 7.5L, Hematocrit 24.8L, Mean Corpuscular Volume 99, Mean Corpuscular Hemoglobin 30.1, Mean Corpuscular Hemoglobin Concent 30.4L, Red Cell Distribution Width 17.7H, Platelet Count 417, Mean Platelet Volume 7.3, Neutrophils (%) (Auto) , Lymphocytes (%) (Auto) , Monocytes (%) (Auto) , Eosinophils (%) (Auto) , Basophils (%) (Auto) , Sodium Level 141, Potassium Level 3.7, Chloride Level 107, Carbon Dioxide Level 27, Anion Gap 7, Blood Urea Nitrogen 15, Creatinine 1.0, Estimat Glomerular Filtration Rate > 60, Glucose Level 125H, Calcium Level 8.0L, Phosphorus Level 2.7, Magnesium Level 2.5H, Total Bilirubin 0.3, Aspartate Amino Transf (AST/SG OT) 21, Alanine Aminotransferase (ALT/SGPT) 24, Alkaline Phosphatase 123H, Total Protein 6.3L, Albumin 1.4L, Globulin 4.9, Albumin/Globulin Ratio 0.3L 07/27/20 08:50: Arterial Blood pH 7.489H, Arterial Blood Partial Pressure CO2 31.9L, Arterial Blood Partial Pressure O2 66.8L, Arterial Blood HCO3 23.7, Arterial Blood Oxygen Saturation 93.7L, Arterial Blood Base Excess 0.6, Richard Test Positive Height (Feet): 5 Height (Inches): 4.00 Weight (Pounds): 130 General Appearance: no apparent distress EENT: other - Remains intubated on ventilator Cardiovascular: tachycardia Respiratory/Chest: decreased breath sounds Abdomen: distended Tino Connors MD Jul 27, 2020 13:36
[2020-07-27] MEDS ORDERED: Sodium Bicarbonate 8.4% 50ml Inj ONE (13:44)
--- NOTE | 2020-07-27 14:00 | NUR ---
NURSE NOTES: The patient is resting on the bed without acute distress or shortness of breath. Tolerating vent setting and tube feeding well. Still has large amount of oral and ETT secretions that need frequent suctioning. Will closely monitor the patient. Will continue plan of care.
--- NOTE | 2020-07-27 14:30 | NUR ---
NURSE NOTES: Dr. Blanchard at the patient's bedside for old PICC line removal and new PICC line placement. The patient is stable at this time. Will closely monitor the patient. Will continue plan of care.
--- NOTE | 2020-07-27 14:49 | Pre-Procedure Note/Attestation ---
Pre-Procedure Note/Attestation Complete Prior to Procedure Planned Procedure: right Procedure Narrative: Right PICC [id number] replacement Indications for Procedure Pre-Operative Diagnosis: Requires long term care pharmacist IV access Attestation I attest that I discussed the nature of the procedure; its benefits; risks and complications; and alternatives (and the risks and benefits of such alternativ es), prior to the procedure, with the patient (or the patient's legal publications sales representative). I attest that, if there was a reasonable possibility of needing a blood transfusion, the patient (or the patient's legal publications sales representative) was given the [facility] standardized written summary, pursuant to the [place] Blood Safety Act ([place] Health and Safety Code # 1645, as amended). I attest that I re-evaluated the patient just prior to the surgery and that there has been no change in the patient's H&P, except as documented below: Isaias Blanchard MD Jul 27, 2020 14:49
--- NOTE | 2020-07-27 14:50 | Brief Operative Note ---
Immediate Post Operative Note Operative Note Pre-op Diagnosis: Requires shelter IV access Post-op Diagnosis: same as pre-op Findings: other - Partially retracted right PICC still intravascular, replaced over the wire Surgeon: Isaias Blanchard MD, MA Anesthesia: local Specimen: none Complications: none Condition: stable Fluids: 0 Implant(s) used?: Yes - 4Fr dual lumen PICC Isaias Blanchard MD Jul 27, 2020 14:50
--- NOTE | 2020-07-27 15:30 | NUR ---
NURSE NOTES: The patient is stable at this time. No fever noted. 1 unit pRBC transfusion started per Dr. Carreno's order via PIV. Will closely monitor the patient. Will continue plan of care.
--- NOTE | 2020-07-27 15:45 | NUR ---
NURSE NOTES: Dr. Blanchard verified the PICC line placement. Dr. Blanchard ordered as follows: Okay to use PICC line and Okay to use for one pressor. CRN was notified. The patient is tolerating 1 unit pRBC transfusion well. No fever noted. Stable vital signs noted. Will closely monitor the patient. Will continue plan of care.
--- NOTE | 2020-07-27 17:00 | NUR ---
NURSE NOTES: Bed bath given to the patient. The patient tolerated well. Moderate BM noted. Still doing q15-30 minutes airway suction for large secretions. Will closely monitor the patient. Will continue plan of care.
--- NOTE | 2020-07-27 17:07 | Diagnostic Imaging Report ---
Indications: Needs long-term IV access Technique: Procedure performed at bedside. Procedural timeout performed. Physical examination confirmed retraction of indwelling right-sided PICC. Total sterile technique, including sterile probe cover and sterile gel, sterile gloves, hand hygiene, hat, mask,, sterile gown, large sterile drape, and preparation with 2% chlorhexidine utilized. Local anesthesia with 1% lidocaine. An 018 guidewire was placed through the existing right-sided PICC, over which a peel-away sheath was placed. A new 4 [place] dual-lumen power PICC was cut to the same length as prior PICC. It was inserted through the peel-away sheath. Peel-away sheath and guidewire removed. Catheter fixed to the skin. Both catheter ports aspirated and flushed. Patient tolerated procedure well, without immediate complication. Subsequent chest radiograph demonstrates catheter tip in the expected location of the right subclavian and brachiocephalic junction. Despite catheter length being the same as prior PICC which terminated in the SVC, the catheter tip is approximately 4 to 5 cm shallow from prior position, which may be due to patient arm positioning and venous collapsibility. Additional chest radiograph findings include bilateral airspace disease with interstitial edema as well as unchanged position of enteric tube and endotracheal tube. Impression: Successful bedside [id number] exchange for new right-sided PICC, in appropriate position on subsequently performed chest radiograph.
--- NOTE | 2020-07-27 17:07 | Diagnostic Imaging Report ---
Indications: Needs long-term IV access Technique: Procedure performed at bedside. Procedural timeout performed. Physical examination confirmed retraction of indwelling right-sided PICC. Total sterile technique, including sterile probe cover and sterile gel, sterile gloves, hand hygiene, hat, mask,, sterile gown, large sterile drape, and preparation with 2% chlorhexidine utilized. Local anesthesia with 1% lidocaine. An 018 guidewire was placed through the existing right-sided PICC, over which a peel-away sheath was placed. A new 4 [place] dual-lumen power PICC was cut to the same length as prior PICC. It was inserted through the peel-away sheath. Peel-away sheath and guidewire removed. Catheter fixed to the skin. Both catheter ports aspirated and flushed. Patient tolerated procedure well, without immediate complication. Subsequent chest radiograph demonstrates catheter tip in the expected location of the right subclavian and brachiocephalic junction. Despite catheter length being the same as prior PICC which terminated in the SVC, the catheter tip is approximately 4 to 5 cm shallow from prior position, which may be due to patient arm positioning and venous collapsibility. Additional chest radiograph findings include bilateral airspace disease with interstitial edema as well as unchanged position of enteric tube and endotracheal tube. Impression: Successful bedside [id number] exchange for new right-sided PICC, in appropriate position on subsequently performed chest radiograph.
--- NOTE | 2020-07-27 18:00 | NUR ---
NURSE NOTES: BS 117 noted. No coverage per protocol. Tolerating vent setting, tube feeding, IVF, and blood transfusion well. Will closely monitor the patient. Will continue plan of care.
--- NOTE | 2020-07-27 18:30 | NUR ---
NURSE NOTES: Safely completed 1 unit pRBC transfusion per Dr. Carreno's order. The patient tolerated well. Stable vital signs noted. No fever noted. Will closely monitor the patient. Will continue plan of care.
--- NOTE | 2020-07-27 19:10 | NUR ---
NURSE HAND-OFF REPORT: Important Events on Shift: New PICC line placement, NGT placement confirmation, SBT but failed, Bilateral soft wrist restraints per Dr. Carreno's order for the patient's safety, s/p 1 unit pRBC transfusion Patient Status: Stable, Full code Diet: Glucerna 1.2 @ 15mL/hr with goal of 60mL/hr Pending Orders: N Pending Results/Labs: N Pending notification: N Latest Vital Signs: Temperature 98.6 , Pulse 77 , B/P 115 /64 , Respiratory Rate 12 , O2 SAT 100 , Mechanical Ventilator, O2 Flow Rate . Vital Sign Comment: Stable EKG Rhythm: Sinus Rhythm Rhythm change?: N MD Notified?: Grecia Rivera MD Response: Latest Gonzalez Fall Score: 50 Fall Risk: High Risk Safety Measures: Call light Within Reach, Bed Alarm Zone 2, Side Rails Side Rails x3, Bed position Low and Locked. Fall Precautions: Yellow Socks Yellow Gown Door Sign Patient Fall Education Report given to FLORES Urena. The patient is stable at this time. Endorsed plan of care.
--- NOTE | 2020-07-27 19:15 | Internal Med Progress Note ---
Subjective Date of Service: Jul 27, 2020 Physician Name Dano Groves Attending Physician Ahsan Hodges MD Current Medications Medications (Trade) Dose Ordered Sig/Ankush Route PRN Reason Start Time Stop Time Status Last Admin Dose Admin Acetaminophen (Tylenol) 650 mg Q4H PRN ORAL Temp >100.5 07/03/20 20:30 08/02/20 20:29 07/27/20 13:01 Chlorhexidine Gluconate (Darcy-Hex 2%) 1 applic DAILY@2000 TOPIC 07/17/20 20:00 10/15/20 19:59 07/26/20 20:36 Dextrose (Dextrose 50%) 50 ml Q30M PRN IV Hypoglycemia 07/03/20 22:45 10/01/20 22:44 Heparin Sodium (Porcine) (Heparin 5000 units/ml) 5,000 units EVERY 12 HOURS SUBQ 07/03/20 21:00 08/17/20 20:59 07/26/20 20:37 Insulin Aspart (NovoLOG) EVERY 6 HOURS SUBQ 07/13/20 06:00 10/02/20 06:29 07/26/20 00:30 Linezolid 300 ml @ 300 mls/hr Q12HR IVPB 07/24/20 12:00 07/31/20 11:59 07/27/20 09:14 Lorazepam (Ativan 2mg/ml 1ml) 2 mg Q4H PRN IV For Anxiety 07/21/20 13:45 07/28/20 13:44 07/26/20 17:11 Midodrine (Pro-Amatine) 10 mg Q8H ORAL 07/22/20 17:00 10/20/20 16:59 07/27/20 16:53 Morphine Sulfate (Morphine Sulfate) 2 mg Q6H PRN IVP moderate pain 07/21/20 13:45 07/28/20 13:44 Nitroglycerin (Ntg) 0.4 mg Q5M PRN SL Prn Chest Pain 07/03/20 20:30 08/02/20 20:29 Norepinephrine Bitartrate 250 ml @ 0 mls/hr Q24H IV 07/26/20 13:00 07/29/20 12:59 07/26/20 13:01 Ondansetron HCl (Zofran) 4 mg Q6H PRN IVP Nausea & Vomiting 07/03/20 20:30 08/02/20 20:29 Pantoprazole (Protonix) 40 mg DAILY IV 07/18/20 09:00 08/17/20 08:59 07/27/20 09:14 Polyethylene Glycol (Miralax) 17 gm DAILYPRN PRN ORAL Constipation 07/03/20 20:30 08/02/20 20:29 Promethazine HCl/ Codeine (Phenergan with Codeine) 5 ml Q4H PRN ORAL For Cough 07/03/20 20:30 08/02/20 20:29 Sodium Chloride 1,000 ml @ 50 mls/hr Q20H IV 07/17/20 16:00 08/16/20 15:59 07/27/20 11:02 Allergies: Coded Allergies: No Known Allergies (Unverified , 04/30/12) ROS Limited/Unobtainable: Yes Subjective 79 YO M admitted with shortness of breath. Now pneumonia; previously COVID positive. Cover for Int med-Dr Hodges. ICU. Intubated and sedated. On Levophed Objective Last Vital Signs Date Time Temp Pulse Resp B/P (MAP) Pulse Ox O2 Delivery O2 Flow Rate FiO2 07/27/20 18:00 85 12 110/62 (78) 100 07/27/20 16:41 Mechanical Ventilator 30 07/27/20 16:00 98.6 Laboratory Tests Test 07/27/20 04:24 07/27/20 05:01 07/27/20 08:50 07/27/20 17:06 POC Whole Blood Glucose Pending Pending White Blood Count 9.1 K/UL (4.8-10.8) Red Blood Count 2.51 M/UL (4.70-6.10) L Hemoglobin 7.5 G/DL (14.2-18.0) L Hematocrit 24.8 % (42.0-52.0) L Mean Corpuscular Volume 99 FL (80-99) Mean Corpuscular Hemoglobin 30.1 PG (27.0-31.0) Mean Corpuscular Hemoglobin Concent 30.4 G/DL (32.0-36.0) L Red Cell Distribution Width 17.7 % (11.6-14.8) H Platelet Count 417 K/UL (150-450) Mean Platelet Volume 7.3 FL (6.5-10.1) Neutrophils (%) (Auto) % (45.0-75.0) Lymphocytes (%) (Auto) % (20.0-45.0) Monocytes (%) (Auto) % (1.0-10.0) Eosinophils (%) (Auto) % (0.0-3.0) Basophils (%) (Auto) % (0.0-2.0) Sodium Level 141 MMOL/L (136-145) Potassium Level 3.7 MMOL/L (3.5-5.1) Chloride Level 107 MMOL/L (98-107) Carbon Dioxide Level 27 MMOL/L (21-32) Anion Gap 7 mmol/L (5-15) Blood Urea Nitrogen 15 mg/dL (7-18) Creatinine 1.0 MG/DL (0.55-1.30) Estimat Glomerular Filtration Rate > 60 mL/min (>60) Glucose Level 125 MG/DL (74-106) H Calcium Level 8.0 MG/DL (8.5-10.1) L Phosphorus Level 2.7 MG/DL (2.5-4.9) Magnesium Level 2.5 MG/DL (1.8-2.4) H Total Bilirubin 0.3 MG/DL (0.2-1.0) Aspartate Amino Transf (AST/SGOT) 21 U/L (15-37) Alanine Aminotransferase (ALT/SGPT) 24 U/L (12-78) Alkaline Phosphatase 123 U/L (46-116) H Total Protein 6.3 G/DL (6.4-8.2) L Albumin 1.4 G/DL (3.4-5.0) L Globulin 4.9 g/dL Albumin/Globulin Ratio 0.3 (1.0-2.7) L Arterial Blood pH 7.489 (7.350-7.450) Arterial Blood Partial Pressure CO2 31.9 mmHg (35.0-45.0) L Arterial Blood Partial Pressure O2 66.8 mmHg (75.0-100.0) L Arterial Blood HCO3 23.7 mmol/L (22.0-26.0) Arterial Blood Oxygen Saturation 93.7 % (95-100) L Arterial Blood Base Excess 0.6 (-2-2) Richard Test Positive Microbiology Date/Time Source Procedure Growth Status 07/25/20 14:30 Urine,Clean Catch Urine Culture - Preliminary NO GROWTH Resulted 07/25/20 14:30 Sputum Gram Stain - Final Resulted 07/25/20 14:30 Sputum Culture - Preliminary Staphylococcus Aureus Usual Respiratory Yana Resulted Intake and Output 07/26/20 07/27/20 19:00 07:00 Intake Total 1573.75 ml 1155 ml Output Total 1500 ml 690 ml Balance 73.75 ml 465 ml Free Water 30 ml 60 ml IV Total 903.75 ml 555 ml Tube Feeding 640 ml 540 ml Output Urine Total 1500 ml 690 ml Objective PHYSICAL EXAMINATION: GENERAL: The patient awake with deep stimuli, open his eyes, however, cannot follow commands. The patient is on a Ventimask at this time, chronically ill-appearing. HEAD AND NECK: Pupils are equal and reactive to light. Anicteric. NECK: Supple. No JVD. LUNGS: Mech vent; wheezing, rhonchi, and decreased air in bases. HEART: S1, S2. Regular rhythm. Distant heart sounds. No murmur or gallop. ABDOMEN: Soft, nondistended, nontender. Positive bowel sounds. EXTREMITIES: No cyanosis, clubbing, or edema. NEUROLOGIC: Very limited secondary to the patient's status, cannot follow commands. Opens his eyes with deep stimuli and moving extremities spontaneously. Assessment/Plan Assessment/Plan ASSESSMENT: 1. Acute hypoxemic respiratory failure, most likely secondary to pneumonia and sepsis. 2. Sepsis secondary to urinary tract infection and pneumonia. 3. pneumonia=MRSA; ESBL E. coli 4. Acute kidney injury on chronic renal insufficiency. 5. Dehydration. 6. History of chronic congestive heart failure. 7. Diabetes type 2. 8. Dyslipidemia. 9. Hypertension. 10. Alzheimer's disease. 11. COVID 19 previous positive PLAN: 1. ICU 2. Dr. Carreno,=Pulmonary Critical Care; follow mech vent recs 3. Dr. Cho = Inf Dis. 4. IV= D5W due to the hypernatremia and dehydration. 5. antibiotics = linezolid; S/P micafungin and meropenem 6. Code status is full code. 7. DVT prophylaxis is heparin subcutaneous. Dano Groves MD Jul 27, 2020 19:15
--- NOTE | 2020-07-27 19:20 | Pulmonolgy Critical Care Note ---
Critical Care - Asmt/Plan Problems: (1) Acute respiratory failure (2) Multifocal pneumonia (3) 2019 novel coronavirus disease (COVID-19) (4) Acute encephalopathy (5) Severe sepsis (6) Alzheimer's dementia (7) HTN (hypertension) (8) History of CVA (cerebrovascular accident) (9) BPH (benign prostatic hyperplasia) Assessment/Plan: on Levophed, FiO2 90% now Cardiac: continue to monitor HR/BP Renal: F/U I&O, check electrolytes Infectious Disease: check cultures, continue antibiotics Gastrointestinal: continue feedings/current rate Endocrine: monitor blood sugar Neurologic: PRN Ativan Affect: PRN ativan Prophylaxis: Heparin Time Spent (Minutes): 40 Discussed with: nurses, consultants, briefcase sewermanager brand - Objective Last 24 Hour Vital Signs Date Time Temp Pulse Resp B/P (MAP) Pulse Ox O2 Delivery O2 Flow Rate FiO2 07/27/20 18:00 85 12 110/62 (78) 100 07/27/20 17:00 93 12 130/70 (90) 100 07/27/20 16:41 80 16 100 Mechanical Ventilator 30 07/27/20 16:00 98.6 90 12 136/77 (96) 100 07/27/20 15:29 80 16 30 07/27/20 15:00 81 12 112/60 (77) 100 07/27/20 14:00 84 12 103/50 (67) 99 07/27/20 13:31 99.5 07/27/20 13:00 110/61 07/27/20 13:00 84 12 100/54 (69) 99 07/27/20 12:00 100.5 86 12 114/62 (79) 100 07/27/20 11:00 94 12 117/62 (80) 100 07/27/20 10:54 93 14 30 07/27/20 10:00 92 12 107/58 (74) 96 07/27/20 09:00 100 12 100/55 (70) 96 07/27/20 08:12 99 07/27/20 08:00 99.5 101 27 106/53 (70) 97 07/27/20 07:29 98 24 30 30 07/27/20 07:00 96 12 90/49 (63) 98 07/27/20 06:00 97 12 97/52 (67) 96 07/27/20 06:00 100 56 07/27/20 05:00 108 13 96/48 (64) 93 07/27/20 04:00 101 18 124/55 (78) 98 07/27/20 04:00 Mechanical Ventilator Mechanical Ventilator 07/27/20 04:00 30 07/27/20 04:00 100 07/27/20 03:56 116 22 30 07/27/20 03:00 97 13 95/47 (63) 97 07/27/20 02:00 101 22 124/59 (80) 100 07/27/20 01:00 94/59 (71) 07/27/20 00:00 30 07/27/20 00:00 Mechanical Ventilator Mechanical Ventilator 07/27/20 00:00 100 07/27/20 00:00 95 07/27/20 00:00 98.8 90 22 93/63 (73) 98 07/27/20 00:00 30 07/26/20 23:15 96 13 30 07/26/20 23:00 92 15 97/58 (71) 98 07/26/20 22:00 95 12 91/49 (63) 98 07/26/20 21:00 94 13 108/58 (75) 99 07/26/20 20:00 Mechanical Ventilator Mechanical Ventilator 07/26/20 20:00 30 07/26/20 20:00 98.5 93 21 105/67 (80) 99 07/26/20 20:00 98 07/26/20 19:37 95 15 30 Status: sedated Condition: critical HEENT: atraumatic Lungs: rales, rhonchi Heart: HR/BP stable Abdomen: non-tender Extremities: no C/C/E Micro: Microbiology Date/Time Source Procedure Growth Status 07/25/20 14:30 Urine,Clean Catch Urine Culture - Final NO GROWTH AFTER 48 HOURS Complete 07/25/20 14:30 Sputum Gram Stain - Final Resulted 07/25/20 14:30 Sputum Culture - Preliminary Staphylococcus Aureus Usual Respiratory Yana Resulted Accucheck: 117 Critical Care - Subjective ROS Limited/Unobtainable: Yes Condition: critical EKG Rhythm: Sinus Rhythm FI02: 30 Vent Support Breath Rate: 12 Vent Support Mode: AC Vent Tidal Volume: 600 Sputum Amount: Moderate PEEP: 0.0 PIP: 51 Tube Feeding Amount: 15 I&O: Intake and Output 07/26/20 07/27/20 19:00 07:00 Intake Total 1573.75 ml 1155 ml Output Total 1500 ml 690 ml Balance 73.75 ml 465 ml Free Water 30 ml 60 ml IV Total 903.75 ml 555 ml Tube Feeding 640 ml 540 ml Output Urine Total 1500 ml 690 ml ET-Tube: 7.5 ET Position: 25 Labs: Laboratory Tests Test 07/27/20 04:24 07/27/20 05:01 07/27/20 08:50 07/27/20 17:06 POC Whole Blood Glucose Pending Pending White Blood Count 9.1 K/UL (4.8-10.8) Red Blood Count 2.51 M/UL (4.70-6.10) L Hemoglobin 7.5 G/DL (14.2-18.0) L Hematocrit 24.8 % (42.0-52.0) L Mean Corpuscular Volume 99 FL (80-99) Mean Corpuscular Hemoglobin 30.1 PG (27.0-31.0) Mean Corpuscular Hemoglobin Concent 30.4 G/DL (32.0-36.0) L Red Cell Distribution Width 17.7 % (11.6-14.8) H Platelet Count 417 K/UL (150-450) Mean Platelet Volume 7.3 FL (6.5-10.1) Neutrophils (%) (Auto) % (45.0-75.0) Lymphocytes (%) (Auto) % (20.0-45.0) Monocytes (%) (Auto) % (1.0-10.0) Eosinophils (%) (Auto) % (0.0-3.0) Basophils (%) (Auto) % (0.0-2.0) Sodium Level 141 MMOL/L (136-145) Potassium Level 3.7 MMOL/L (3.5-5.1) Chloride Level 107 MMOL/L (98-107) Carbon Dioxide Level 27 MMOL/L (21-32) Anion Gap 7 mmol/L (5-15) Blood Urea Nitrogen 15 mg/dL (7-18) Creatinine 1.0 MG/DL (0.55-1.30) Estimat Glomerular Filtration Rate > 60 mL/min (>60) Glucose Level 125 MG/DL (74-106) H Calcium Level 8.0 MG/DL (8.5-10.1) L Phosphorus Level 2.7 MG/DL (2.5-4.9) Magnesium Level 2.5 MG/DL (1.8-2.4) H Total Bilirubin 0.3 MG/DL (0.2-1.0) Aspartate Amino Transf (AST/SGOT) 21 U/L (15-37) Alanine Aminotransferase (ALT/SGPT) 24 U/L (12-78) Alkaline Phosphatase 123 U/L (46-116) H Total Protein 6.3 G/DL (6.4-8.2) L Albumin 1.4 G/DL (3.4-5.0) L Globulin 4.9 g/dL Albumin/Globulin Ratio 0.3 (1.0-2.7) L Arterial Blood pH 7.489 (7.350-7.450) Arterial Blood Partial Pressure CO2 31.9 mmHg (35.0-45.0) L Arterial Blood Partial Pressure O2 66.8 mmHg (75.0-100.0) L Arterial Blood HCO3 23.7 mmol/L (22.0-26.0) Arterial Blood Oxygen Saturation 93.7 % (95-100) L Arterial Blood Base Excess 0.6 (-2-2) Richard Test Positive Kya Carreno MD Jul 27, 2020 19:20
--- NOTE | 2020-07-27 20:00 | NUR ---
NURSE NOTES: received report from arpit post intubated -vent o2sat 98 % suction and reposition tolerating tube feeding no residual iv infusing well cont monitor pt
[2020-07-27] MEDS: Dyna-Hex 2% Top Sol 2oz TOPIC SCH (20:36)
[2020-07-28] VITALS (22 sets, daily range): BP systolic 93–181; BP diastolic 44–96
--- NOTE | 2020-07-28 | NUR ---
NURSE NOTES: bs 105 no coverage given
[2020-07-28] MEDS: Midodrine 10mg tab ORAL SCH ×3 (01:42→17:32)
--- NOTE | 2020-07-28 02:00 | NUR ---
NURSE NOTES: condition un change
--- NOTE | 2020-07-28 04:00 | NUR ---
NURSE NOTES: complete bed bath given
[2020-07-28] MEDS: LORazepam Inj 2mg/ml 1ml IV PRN ×3 (05:48→21:37)
[2020-07-28] MEDS: NovoLOG Insulin Flexpen SUBQ SCH ×4 (05:48→18:00)
--- NOTE | 2020-07-28 06:00 | NUR ---
NURSE NOTES: pt restless and ativan 2mg ivp given
[2020-07-28 06:23] LABS: BASOPHILS % (AUTO) 0.8 % (0.0-2.0); EOSINOPHILS % (AUTO) 1.2 % (0.0-3.0); HEMATOCRIT 32.5 % (42.0-52.0); HEMOGLOBIN 10.1 G/DL (14.2-18.0); LYMPHOCYTES % (AUTO) 28.7 % (20.0-45.0); MEAN CORPUSCULAR VOLUME 97 FL (80-99); MONOCYTES % (AUTO) 6.2 % (1.0-10.0); NEUTROPHILS % (AUTO) 63.1 % (45.0-75.0); PLATELET COUNT 410 K/UL (150-450); RED BLOOD COUNT 3.34 M/UL (4.70-6.10); RED CELL DISTRIBUTION WIDTH 16.7 % (11.6-14.8); WHITE BLOOD COUNT 9.2 K/UL (4.8-10.8)
--- NOTE | 2020-07-28 07:00 | NUR ---
NURSE HAND-OFF REPORT: Latest Vital Signs: Temperature 98.8 , Pulse 118 , B/P 80 /50 , Respiratory Rate 30 , O2 SAT 100 , Mechanical Ventilator, O2 Flow Rate . Vital Sign Comment: EKG Rhythm: Sinus Tachycardia Rhythm change?: N Notified?: Grecia Rivera MD Response: Latest Gonzalez Fall Score: 50 Fall Risk: High Risk Safety Measures: Call light Within Reach, Bed Alarm Zone 2, Side Rails Side Rails x3, Bed position Low and Locked. Fall Precautions: Yellow Socks Yellow Gown Door Sign Patient Fall Education Report given to teri post.
[2020-07-28 07:26] LABS: ALANINE AMINOTRANSFERASE 24 U/L (12-78); ALBUMIN 1.7 G/DL (3.4-5.0); ALBUMIN/GLOBULIN RATIO 0.3 (1.0-2.7); ALKALINE PHOSPHATASE 128 U/L (46-116); ANION GAP 9 mmol/L (5-15); ASPARTATE AMINO TRANSFERASE 38 U/L (15-37); BILIRUBIN,TOTAL 0.5 MG/DL (0.2-1.0); BLOOD UREA NITROGEN 13 mg/dL (7-18); CALCIUM 8.2 MG/DL (8.5-10.1); CARBON DIOXIDE 25 MMOL/L (21-32); CHLORIDE 105 MMOL/L (98-107); PHOSPHORUS 2.4 MG/DL (2.5-4.9); POTASSIUM 3.5 MMOL/L (3.5-5.1); SODIUM 139 MMOL/L (136-145)
--- NOTE | 2020-07-28 07:30 | NUR ---
NURSE NOTES: Report received from FLORES Barbosa. Pt lying comfortably in semi-fowlers with no signs of distress. A+Ox1, has eyes open, tracks with eyes, but does not follow commands. Respirations even and unlabored on mech vent. ETT 7.5 @ 25 cm at the lip with settings of AC12, VT 600, and 30% Fio2. Sinus rhythm on the monitor 94 beats/min. NGT noted running tube feeding @ 30 ml/hr with goal of 60 ml/hr. Abdomen soft. No signs of pain at this time. PICC patent, running fluids @ Prescribed rate. Pt has multiple pressure injuries, covered in optfoam, dry and intact. Head of bed @ 30 degrees. Bed is in lowest position, brakes engaged, siderails x2, bed alarm on, and call light within reach. Pt in stable condition; will continue to monitor .
--- NOTE | 2020-07-28 07:56 | Infectious Diseases Prog Note ---
Assessment/Plan 79yo M with: Respiratory code 2ry to mucus plug 07/23 Septic Shock- -recurrent Fever, recurrent, low grade;SP Leukocytosis; recurrent; increased Acute hypoxic resp failure, on NRB mask> 4l NC; back on NRB, desaturation 07/09 > intubated 07/17 Pneumonia- >HAP Hx of COVID19 PNA 05/20/2007/25 Resp cx +MRSA, nl resp bobby UCx neg BCx NTD 07/24 COVID PCR neg --07/21 CXR: Bilateral infiltrates in a peribronchovascular distribution are unchanged. Left pleural effusion is unchanged. --07/19 CXR: Persistent bilateral patchy pulmonary opacities, most prominent in the left lower lung. --07/18 ucx neg sp cx MRSA (colonizer at this point) Bcx Neg --07/13 Bcx Neg 07/10 Sp cx MRSA (Vancomycin APOLONIA 1), ESBL E.coli 07/03 BCx NTD UA 15-20 WBC, UCx Neg 07/03 COVID rapid neg; 07/06 rapid COVID PCR + (from prior infection)- not new infection Flu A/B neg CXR: L pna Resp cx MRSA MELANIE on CKD, improving SNF resident (ed [facility]) Non-verbal VRE and MRSA colonized Plan: Cont Zyvoz #5 for MRSA coverage given mucus plug and worsening hemodynamics, will likely stop soon -07/27 SP meropenem #14 for ESBL pna -07/21 SP Micafungin #4 -07/17 SP IV Vancomycin #15 -07/13 SP Zosyn #4 -07/06 SP Cefepime # -07/04 SP Flagyl # Monitor CBC/CMP Monitor resp status Monitor temp curve and hemodynamics D/w RN Thank you for this consult. [facility] will continue to follow. Subjective Allergies: Coded Allergies: No Known Allergies (Unverified , 04/30/12) Febrile to 100.5 WBC down to 9 Resp cx +MRSA, on linezolid Off meropenem now NAD on vent Improved secretions per RN Objective Last 24 Hour Vital Signs Date Time Temp Pulse Resp B/P (MAP) Pulse Ox O2 Delivery O2 Flow Rate FiO2 07/28/20 06:31 100 56 07/28/20 06:25 118 30 80/50 100 07/28/20 06:19 113 17 30 07/28/20 06:00 127 29 181/96 (124) 98 07/28/20 05:48 108 17 164/80 98 07/28/20 05:00 114 28 100 07/28/20 04:00 98.8 77 16 103/56 (72) 93 07/28/20 04:00 30 07/28/20 04:00 130 07/28/20 04:00 Mechanical Ventilator Mechanical Ventilator 07/28/20 03:28 108 17 30 07/28/20 03:00 82 13 105/55 (72) 100 07/28/20 02:00 78 16 111/63 (79) 98 07/28/20 01:00 78 12 100/60 (73) 100 07/28/20 00:00 75 07/28/20 00:00 30 07/28/20 00:00 Mechanical Ventilator Mechanical Ventilator 07/28/20 00:00 99.0 75 14 104/59 (74) 100 07/27/20 23:02 71 12 30 07/27/20 23:00 85 17 120/68 (85) 100 07/27/20 22:00 76 12 116/52 (73) 100 07/27/20 21:00 83 14 120/62 (81) 99 07/27/20 20:05 77 12 30 07/27/20 20:00 Mechanical Ventilator Mechanical Ventilator 07/27/20 20:00 99.0 77 12 104/58 (73) 100 07/27/20 20:00 90 07/27/20 19:00 70 12 115/64 (81) 100 07/27/20 18:00 85 12 110/62 (78) 100 07/27/20 17:00 93 12 130/70 (90) 100 07/27/20 16:41 80 16 100 Mechanical Ventilator 30 07/27/20 16:00 Mechanical Ventilator Mechanical Ventilator 07/27/20 16:00 30 07/27/20 16:00 98.6 90 12 136/77 (96) 100 07/27/20 16:00 85 07/27/20 15:29 80 16 30 07/27/20 15:00 81 12 112/60 (77) 100 07/27/20 14:00 84 12 103/50 (67) 99 07/27/20 13:31 99.5 07/27/20 13:00 110/61 07/27/20 13:00 84 12 100/54 (69) 99 07/27/20 12:00 100.5 86 12 114/62 (79) 100 07/27/20 12:00 Mechanical Ventilator Mechanical Ventilator 07/27/20 12:00 30 07/27/20 12:00 88 07/27/20 11:00 94 12 117/62 (80) 100 07/27/20 10:54 93 14 30 07/27/20 10:00 92 12 107/58 (74) 96 07/27/20 09:00 100 12 100/55 (70) 96 07/27/20 08:12 99 07/27/20 08:00 30 07/27/20 08:00 99.5 101 27 106/53 (70) 97 07/27/20 08:00 Mechanical Ventilator Mechanical Ventilator 07/27/20 08:00 100 Height (Feet): 5 Height (Inches): 4.00 Weight (Pounds): 130 Gen: NAD in bed HEENT: NCAT CV: RRR Pulm: BL chest rise on vent Abd: Soft, NTND Ext: No c/c/e Neuro: Eyes closed, not interactive Microbiology Date/Time Source Procedure Growth Status 07/25/20 14:30 Urine,Clean Catch Urine Culture - Final NO GROWTH AFTER 48 HOURS Complete 07/25/20 14:30 Sputum Gram Stain - Final Resulted 07/25/20 14:30 Sputum Culture - Preliminary Staphylococcus Aureus Usual Respiratory Bobby Resulted 07/25/20 14:30 Blood Blood Culture - Preliminary NO GROWTH AFTER 48 HOURS Resulted 07/25/20 14:30 Blood Blood Culture - Preliminary NO GROWTH AFTER 48 HOURS Resulted Laboratory Tests Test 07/27/20 08:50 07/27/20 11:25 07/27/20 17:06 07/28/20 05:00 Arterial Blood pH 7.489 (7.350-7.450) Arterial Blood Partial Pressure CO2 31.9 mmHg (35.0-45.0) L Arterial Blood Partial Pressure O2 66.8 mmHg (75.0-100.0) L Arterial Blood HCO3 23.7 mmol/L (22.0-26.0) Arterial Blood Oxygen Saturation 93.7 % (95-100) L Arterial Blood Base Excess 0.6 (-2-2) Richard Test Positive POC Whole Blood Glucose 115 MG/DL (74-106) H Pending White Blood Count 9.2 K/UL (4.8-10.8) Red Blood Count 3.34 M/UL (4.70-6.10) L Hemoglobin 10.1 G/DL (14.2-18.0) #L Hematocrit 32.5 % (42.0-52.0) #L Mean Corpuscular Volume 97 FL (80-99) Mean Corpuscular Hemoglobin 30.4 PG (27.0-31.0) Mean Corpuscular Hemoglobin Concent 31.2 G/DL (32.0-36.0) L Red Cell Distribution Width 16.7 % (11.6-14.8) H Platelet Count 410 K/UL (150-450) Mean Platelet Volume 7.0 FL (6.5-10.1) Neutrophils (%) (Auto) 63.1 % (45.0-75.0) Lymphocytes (%) (Auto) 28.7 % (20.0-45.0) Monocytes (%) (Auto) 6.2 % (1.0-10.0) Eosinophils (%) (Auto) 1.2 % (0.0-3.0) Basophils (%) (Auto) 0.8 % (0.0-2.0) Sodium Level 139 MMOL/L (136-145) Potassium Level 3.5 MMOL/L (3.5-5.1) Chloride Level 105 MMOL/L (98-107) Carbon Dioxide Level 25 MMOL/L (21-32) Anion Gap 9 mmol/L (5-15) Blood Urea Nitrogen 13 mg/dL (7-18) Creatinine 1.0 MG/DL (0.55-1.30) Estimat Glomerular Filtration Rate > 60 mL/min (>60) Glucose Level 110 MG/DL (74-106) H Calcium Level 8.2 MG/DL (8.5-10.1) L Phosphorus Level 2.4 MG/DL (2.5-4.9) L Magnesium Level 2.3 MG/DL (1.8-2.4) Total Bilirubin 0.5 MG/DL (0.2-1.0) Aspartate Amino Transf (AST/SGOT) 38 U/L (15-37) H Alanine Aminotransferase (ALT/SGPT) 24 U/L (12-78) Alkaline Phosphatase 128 U/L (46-116) H Total Protein 6.8 G/DL (6.4-8.2) Albumin 1.7 G/DL (3.4-5.0) L Globulin 5.1 g/dL Albumin/Globulin Ratio 0.3 (1.0-2.7) L Current Medications Medications (Trade) Dose Ordered Sig/Ankush Route PRN Reason Start Time Stop Time Status Last Admin Dose Admin Acetaminophen (Tylenol) 650 mg Q4H PRN ORAL Temp >100.5 07/03/20 20:30 08/02/20 20:29 07/27/20 13:01 Chlorhexidine Gluconate (Darcy-Hex 2%) 1 applic DAILY@2000 TOPIC 07/17/20 20:00 10/15/20 19:59 07/27/20 20:36 Dextrose (Dextrose 50%) 50 ml Q30M PRN IV Hypoglycemia 07/03/20 22:45 10/01/20 22:44 Heparin Sodium (Porcine) (Heparin 5000 units/ml) 5,000 units EVERY 12 HOURS SUBQ 07/03/20 21:00 08/17/20 20:59 07/27/20 20:39 Insulin Aspart (NovoLOG) EVERY 6 HOURS SUBQ 07/13/20 06:00 10/02/20 06:29 07/26/20 00:30 Linezolid 300 ml @ 300 mls/hr Q12HR IVPB 07/24/20 12:00 07/31/20 11:59 07/27/20 20:37 Lorazepam (Ativan 2mg/ml 1ml) 2 mg Q4H PRN IV For Anxiety 07/21/20 13:45 07/28/20 13:44 07/28/20 05:48 Midodrine (Pro-Amatine) 10 mg Q8H ORAL 07/22/20 17:00 10/20/20 16:59 07/28/20 01:42 Morphine Sulfate (Morphine Sulfate) 2 mg Q6H PRN IVP moderate pain 07/21/20 13:45 07/28/20 13:44 Nitroglycerin (Ntg) 0.4 mg Q5M PRN SL Prn Chest Pain 07/03/20 20:30 08/02/20 20:29 Norepinephrine Bitartrate 250 ml @ 0 mls/hr Q24H IV 07/26/20 13:00 07/29/20 12:59 07/26/20 13:01 Ondansetron HCl (Zofran) 4 mg Q6H PRN IVP Nausea & Vomiting 07/03/20 20:30 08/02/20 20:29 Pantoprazole (Protonix) 40 mg DAILY IV 07/18/20 09:00 08/17/20 08:59 07/27/20 09:14 Polyethylene Glycol (Miralax) 17 gm DAILYPRN PRN ORAL Constipation 07/03/20 20:30 08/02/20 20:29 Promethazine HCl/ Codeine (Phenergan with Codeine) 5 ml Q4H PRN ORAL For Cough 07/03/20 20:30 08/02/20 20:29 Sodium Chloride 1,000 ml @ 50 mls/hr Q20H IV 07/17/20 16:00 08/16/20 15:59 07/28/20 05:59 Lorie Ramirez M.D. Jul 28, 2020 07:56
--- NOTE | 2020-07-28 08:32 | Cardiac Electrophysiology PN ---
Assessment/Plan Assessment/Plan 1. Accelerated junctional rhythm. Ruled out for GA Echo showed ejection fraction of 55%. 2. Long run of 31 beats of Nonsustained VT on 07/14/2020. Cardiac cath after stabilization. 3. Jose 30, Asystole while on the Vent due to resp failure/ likely mucus plug . S/P Code 4. Respiratory failure, on antibiotic and intubated on the vent 5. Septic shock. Off Levophed and on Midodrine 10 tid 6. History of previous COVID infection in May 2020 and active Covid in isolation 7. Dementia. DW RN Subjective Subjective In SR in NAD in Covid isolation. In ICU on the Vent Fio2 30%, PEEP 5 Had 31 beats of VT on 07/14/20 at 16:46 and 5 beats 07/19/20 Coded on 07/23/20 as sat dropped to 20% and got jose 30s and PEA and pulseless Got 3 Epi and 2 Bicarb. Off Levophed on Midodrine 10 tid PICC line replaced and NGT replaced Objective Last 24 Hour Vital Signs Date Time Temp Pulse Resp B/P (MAP) Pulse Ox O2 Delivery O2 Flow Rate FiO2 07/28/20 08:00 30 07/28/20 06:31 100 56 07/28/20 06:25 118 30 80/50 100 07/28/20 06:19 113 17 30 07/28/20 06:00 127 29 181/96 (124) 98 07/28/20 05:48 108 17 164/80 98 07/28/20 05:00 114 28 100 07/28/20 04:00 98.8 77 16 103/56 (72) 93 07/28/20 04:00 30 07/28/20 04:00 130 07/28/20 04:00 Mechanical Ventilator Mechanical Ventilator 07/28/20 03:28 108 17 30 07/28/20 03:00 82 13 105/55 (72) 100 07/28/20 02:00 78 16 111/63 (79) 98 07/28/20 01:00 78 12 100/60 (73) 100 07/28/20 00:00 75 07/28/20 00:00 30 07/28/20 00:00 Mechanical Ventilator Mechanical Ventilator 07/28/20 00:00 99.0 75 14 104/59 (74) 100 07/27/20 23:02 71 12 30 07/27/20 23:00 85 17 120/68 (85) 100 07/27/20 22:00 76 12 116/52 (73) 100 07/27/20 21:00 83 14 120/62 (81) 99 07/27/20 20:05 77 12 30 07/27/20 20:00 Mechanical Ventilator Mechanical Ventilator 07/27/20 20:00 99.0 77 12 104/58 (73) 100 07/27/20 20:00 90 07/27/20 19:00 70 12 115/64 (81) 100 07/27/20 18:00 85 12 110/62 (78) 100 07/27/20 17:00 93 12 130/70 (90) 100 07/27/20 16:41 80 16 100 Mechanical Ventilator 30 07/27/20 16:00 Mechanical Ventilator Mechanical Ventilator 07/27/20 16:00 30 07/27/20 16:00 98.6 90 12 136/77 (96) 100 07/27/20 16:00 85 07/27/20 15:29 80 16 30 07/27/20 15:00 81 12 112/60 (77) 100 07/27/20 14:00 84 12 103/50 (67) 99 07/27/20 13:31 99.5 07/27/20 13:00 110/61 07/27/20 13:00 84 12 100/54 (69) 99 07/27/20 12:00 100.5 86 12 114/62 (79) 100 07/27/20 12:00 Mechanical Ventilator Mechanical Ventilator 07/27/20 12:00 30 07/27/20 12:00 88 07/27/20 11:00 94 12 117/62 (80) 100 07/27/20 10:54 93 14 30 07/27/20 10:00 92 12 107/58 (74) 96 07/27/20 09:00 100 12 100/55 (70) 96 Intake and Output 07/27/20 07/28/20 19:00 07:00 Intake Total 270 ml 1165 ml Output Total 810 ml 820 ml Balance -540 ml 345 ml Free Water 150 ml 80 ml IV Total 800 ml Tube Feeding 120 ml 285 ml Output Urine Total 810 ml 820 ml # Bowel Movements 2 3 Laboratory Tests Test 07/27/20 08:50 07/27/20 11:25 11/16/20 17:06 07/28/20 05:00 Arterial Blood pH 7.489 (7.350-7.450) Arterial Blood Partial Pressure CO2 31.9 mmHg (35.0-45.0) L Arterial Blood Partial Pressure O2 66.8 mmHg (75.0-100.0) L Arterial Blood HCO3 23.7 mmol/L (22.0-26.0) Arterial Blood Oxygen Saturation 93.7 % (95-100) L Arterial Blood Base Excess 0.6 (-2-2) Richard Test Positive POC Whole Blood Glucose 115 MG/DL (74-106) H Pending White Blood Count 9.2 K/UL (4.8-10.8) Red Blood Count 3.34 M/UL (4.70-6.10) L Hemoglobin 10.1 G/DL (14.2-18.0) #L Hematocrit 32.5 % (42.0-52.0) #L Mean Corpuscular Volume 97 FL (80-99) Mean Corpuscular Hemoglobin 30.4 PG (27.0-31.0) Mean Corpuscular Hemoglobin Concent 31.2 G/DL (32.0-36.0) L Red Cell Distribution Width 16.7 % (11.6-14.8) H Platelet Count 410 K/UL (150-450) Mean Platelet Volume 7.0 FL (6.5-10.1) Neutrophils (%) (Auto) 63.1 % (45.0-75.0) Lymphocytes (%) (Auto) 28.7 % (20.0-45.0) Monocytes (%) (Auto) 6.2 % (1.0-10.0) Eosinophils (%) (Auto) 1.2 % (0.0-3.0) Basophils (%) (Auto) 0.8 % (0.0-2.0) Sodium Level 139 MMOL/L (136-145) Potassium Level 3.5 MMOL/L (3.5-5.1) Chloride Level 105 MMOL/L (98-107) Carbon Dioxide Level 25 MMOL/L (21-32) Anion Gap 9 mmol/L (5-15) Blood Urea Nitrogen 13 mg/dL (7-18) Creatinine 1.0 MG/DL (0.55-1.30) Estimat Glomerular Filtration Rate > 60 mL/min (>60) Glucose Level 110 MG/DL (74-106) H Calcium Level 8.2 MG/DL (8.5-10.1) L Phosphorus Level 2.4 MG/DL (2.5-4.9) L Magnesium Level 2.3 MG/DL (1.8-2.4) Total Bilirubin 0.5 MG/DL (0.2-1.0) Aspartate Amino Transf (AST/SGOT) 38 U/L (15-37) H Alanine Aminotransferase (ALT/SGPT) 24 U/L (12-78) Alkaline Phosphatase 128 U/L (46-116) H Total Protein 6.8 G/DL (6.4-8.2) Albumin 1.7 G/DL (3.4-5.0) L Globulin 5.1 g/dL Albumin/Globulin Ratio 0.3 (1.0-2.7) L Test 07/28/20 07:47 Arterial Blood pH 7.478 (7.350-7.450) Arterial Blood Partial Pressure CO2 31.2 mmHg (35.0-45.0) L Arterial Blood Partial Pressure O2 78.5 mmHg (75.0-100.0) Arterial Blood HCO3 22.6 mmol/L (22.0-26.0) Arterial Blood Oxygen Saturation 95.7 % (95-100) Arterial Blood Base Excess -0.4 (-2-2) Richard Test Positive Microbiology Date/Time Source Procedure Growth Status 07/25/20 14:30 Urine,Clean Catch Urine Culture - Final NO GROWTH AFTER 48 HOURS Complete 07/25/20 14:30 Sputum Gram Stain - Final Resulted 07/25/20 14:30 Sputum Culture - Preliminary Staphylococcus Aureus Usual Respiratory Yana Resulted 07/25/20 14:30 Blood Blood Culture - Preliminary NO GROWTH AFTER 48 HOURS Resulted 07/25/20 14:30 Blood Blood Culture - Preliminary NO GROWTH AFTER 48 HOURS Resulted Objective HEAD AND NECK: No JVD. Orally intubated LUNGS: Coarse rhonchi. CARDIOVASCULAR: Irregular S1 and S2 with no gallop. ABDOMEN: Soft. EXTREMITIES: No pitting edema. Klever Matt MD Jul 28, 2020 08:32
[2020-07-28] MEDS: Pantoprazole Inj IV SCH (09:08)
[2020-07-28] MEDS: Heparin 5000 units/ml inj SUBQ SCH ×2 (09:09→20:39)
--- NOTE | 2020-07-28 09:30 | NUR ---
NURSE NOTES: pt repositioned, suctioned. oral care done.
--- NOTE | 2020-07-28 10:45 | NUR ---
NURSE NOTES: Dr. Ramirez @ bedside. No new orders given.
[2020-07-28] MEDS ORDERED: Potassium Phosphate 20 MM in NS 275 ML IV ONE (11:00)
[2020-07-28] MEDS: Norepinephrine 4mg/NS Premix 250 ML IV SCH (11:13)
--- NOTE | 2020-07-28 11:17 | NUR ---
NURSE NOTES: spoke with Jelena in pharmacy regarding potassium phosphate. She said it will be up here as soon as its ready.
--- NOTE | 2020-07-28 12:44 | NUR ---
RADIOLOGY DEPT., CHEST X-RAY DONE.-P.DYE
--- NOTE | 2020-07-28 13:36 | NUR ---
HAND-OFF: Report given to FLORES Weber. Pt in stable condition.
--- NOTE | 2020-07-28 13:37 | NUR ---
NURSE NOTES: Report received from FLORES Wilde. Patient is resting in bed. Able to wake up to tactile stimuli. Able to open eyes and track. SR on vaccine specialist. Afebrile. ETT 7.5/25cm at lip line. AC 12, TV 600, FiO2 30%. O2 sat 100%. Right NGT in place receiving Glucerna 1.5 at 40cc/hr. No residual noted. Wiley in place draining to gravity. JACQUIE PICC line patent and asymptomatic. 1/2NS is running at 50cc/hr. Bed in lowest position. Side rails up x3. Will resume plan of care.
[2020-07-28] MEDS ORDERED: 1/2 NS 1000ml IV ONE (14:18)
--- NOTE | 2020-07-28 15:00 | NUR ---
NURSE NOTES: Clear white oral secretion noted from mouth. Suctioned and oral care done. Patient is tolerating the current vent setting. O2 sat 100%. Will continue to monitor.
--- NOTE | 2020-07-28 16:41 | Nephrology Progress Note ---
Assessment/Plan Problem List: (1) Dehydration (2) MELANIE (acute kidney injury) (3) Renal failure (ARF), acute on chronic (4) Hypoxia (5) Acute encephalopathy (6) Electrolyte imbalance Assessment 79-year-old male is admitted with acute hypoxic respiratory failure most likely secondary to pneumonia and sepsis, UTI. Acute on chronic renal failure Dehydration Electrolyte imbalances, hypernatremia Hypoalbuminemia Diabetes type 2 History of congestive heart failure Hypertension Hyperlipemia Alzheimer's Previous COVID-19 infection in May 2020 Plan July 28: Remains in ICU. Remains full code. Labs are reviewed. Phosphorus supplement given. Continue per consultants. July 27: Remains in ICU. Full code. Labs reviewed. Remains intubated. Stable renal parameters. July 26: In ICU. Full code. Discussed with RN. Stable renal parameters. July 25: Seen in ICU. Discussed with FLORES Holliday. Flomax discontinued. Labs reviewed. Stable from renal standpoint of view. July 24: Seen in ICU. Discussed with FLORES Holliday. Remains on pressor. Electrolyte abnormalities noted and addressed. Continue per consultants. Patient remains full code. July 23: Seen in ICU. Discussed with FLORES Barrera. Blood pressure remains a little requiring pressors. Labs reviewed. Stable renal parameters. Continue per consultants. July 22: Remains intubated. Full code. Blood pressure borderline low. Will increase midodrine dose. Discussed with RN. Continue to monitor renal parameters and electrolytes. July 21: Intubated. Full code. Labs reviewed. Stable from renal standpoint of view. Continue per consultants. July 20: Remains intubated. Full code. Labs reviewed. Electrolytes within normal limit. Continue per consultants. July 19: In ICU. Remains intubated on ventilator. Remains full code. Low potassium addressed. Blood pressure fluctuating. Continue per consultants. July 18: Patient in ICU. Intubated on ventilator. On 6 mics of Levophed. Will give 100 cc albumin 25%. K-Phos IV ordered. Continue per consultants. Continue monitor renal parameters and electrolytes. July 17: Status unchanged. Transfer to [facility] for seizure. Stable from renal standpoint to view. Continue per consultants. July 16: Status quo. Labs reviewed. Renal parameters stable. Continue per consultants. July 15: On nonrebreather mask. Labs reviewed. Renal parameters stable.Continue per pin ball machine mechanic. Clinically unchanged. July 14: On nonrebreather mask. Inflammatory markers gradually declining. Renal parameters stable. Continue per pulmonary. July 13: Remains on nonrebreather mask. Inflammatory markers remain elevated. Renal parameters somewhat stable. Continue per pulmonary and ID. Remains full code. July 12: Patient on nonrebreather mask. Labs noted. Serum creatinine down to 1.3. Continue per consultants. July 11: Patient on nonrebreather mask. Transfer to telemetry when seen this morning. Labs noted. Continue per consultants. Serum creatinine erin to 1.7. Continue to monitor renal parameters. Continue to monitor vancomycin level July 10: Patient is not doing well clinically. Mild respiratory distress. ABG noted. Somewhat hypoxic. CBC and chemistry panel ordered. Discussed with FLORES Cho. Will defer to pulmonary management to specialist. Continue per ID. Renal parameters remained stable as of July 09. July 09: Labs reviewed. Renal parameters stable. Continue per consultants. July 08: Labs reviewed. Potassium via NG tube ordered. IV fluids stopped. Continue per consultants. July 07: Labs reviewed. Low potassium and low phosphorus replaced. Continue per consultants. Remains stable from renal standpoint of view. July 06: Patient remains n.p.o. IV fluid down to 50 cc an hour. Potassium supplement intravenously ordered. Continue per consultants. Previously: Patient is n.p.o., will continue on IV fluid of D5W 75 cc an hour We will monitor electrolytes and renal parameters Avoid nephrotoxic's Start p.o. when he clears by speech therapist, meanwhile aspiration precautions Keep the blood pressure and blood sugar in check Per orders Subjective ROS Limited/Unobtainable: Yes Objective Objective Last 24 Hour Vital Signs Date Time Temp Pulse Resp B/P (MAP) Pulse Ox O2 Delivery O2 Flow Rate FiO2 07/28/20 15:00 73 13 97/46 (63) 100 07/28/20 14:51 82 15 30 07/28/20 14:00 81 13 97/44 (61) 100 07/28/20 13:30 Mechanical Ventilator Mechanical Ventilator 07/28/20 13:12 84 25 102/48 99 07/28/20 13:00 89 29 93/44 (60) 100 07/28/20 12:42 89 20 111/59 98 07/28/20 12:05 30 07/28/20 12:00 98.9 87 26 105/53 (70) 100 07/28/20 12:00 Mechanical Ventilator Mechanical Ventilator 07/28/20 12:00 30 07/28/20 12:00 88 07/28/20 11:02 95 07/28/20 11:00 86 16 119/55 (76) 90 07/28/20 10:57 85 12 30 07/28/20 10:00 80 15 106/51 (69) 93 07/28/20 09:00 84 13 100/55 (70) 100 07/28/20 08:00 91 07/28/20 08:00 98.3 90 12 96/47 (63) 100 07/28/20 08:00 Mechanical Ventilator Mechanical Ventilator 07/28/20 08:00 30 07/28/20 06:31 100 56 07/28/20 06:25 118 30 80/50 100 07/28/20 06:19 113 17 30 07/28/20 06:00 127 29 181/96 (124) 98 07/28/20 05:48 108 17 164/80 98 07/28/20 05:00 114 28 100 07/28/20 04:00 98.8 77 16 103/56 (72) 93 07/28/20 04:00 30 07/28/20 04:00 130 07/28/20 04:00 Mechanical Ventilator Mechanical Ventilator 07/28/20 03:28 108 17 30 07/28/20 03:00 82 13 105/55 (72) 100 07/28/20 02:00 78 16 111/63 (79) 98 07/28/20 01:00 78 12 100/60 (73) 100 07/28/20 00:00 75 07/28/20 00:00 30 07/28/20 00:00 Mechanical Ventilator Mechanical Ventilator 07/28/20 00:00 99.0 75 14 104/59 (74) 100 07/27/20 23:02 71 12 30 07/27/20 23:00 85 17 120/68 (85) 100 07/27/20 22:00 76 12 116/52 (73) 100 07/27/20 21:00 83 14 120/62 (81) 99 07/27/20 20:05 77 12 30 07/27/20 20:00 Mechanical Ventilator Mechanical Ventilator 07/27/20 20:00 99.0 77 12 104/58 (73) 100 07/27/20 20:00 90 07/27/20 19:00 70 12 115/64 (81) 100 07/27/20 18:00 85 12 110/62 (78) 100 07/27/20 17:00 93 12 130/70 (90) 100 07/27/20 16:41 80 16 100 Mechanical Ventilator 30 Intake and Output 07/27/20 07/28/20 19:00 07:00 Intake Total 270 ml 1250 ml Output Total 810 ml 870 ml Balance -540 ml 380 ml Free Water 150 ml 80 ml IV Total 850 ml Tube Feeding 120 ml 320 ml Output Urine Total 810 ml 870 ml # Bowel Movements 2 3 Laboratory Tests 07/27/20 17:06: POC Whole Blood Glucose [Pending] 07/28/20 05:00: White Blood Count 9.2, Red Blood Count 3.34L, Hemoglobin 10.1#L, Hematocrit 32.5#L, Mean Corpuscular Volume 97, Mean Corpuscular Hemoglobin 30.4, Mean Corpuscular Hemoglobin Concent 31.2L, Red Cell Distribution Width 16.7H, Platelet Count 410, Mean Platelet Volume 7.0, Neutrophils (%) (Auto) 63.1, Lymphocytes (%) (Auto) 28.7, Monocytes (%) (Auto) 6.2, Eosinophils (%) (Auto) 1.2, Basophils (%) (Auto) 0.8, Sodium Level 139, Potassium Level 3.5, Chloride Level 105, Carbon Dioxide Level 25, Anion Gap 9, Blood Urea Nitrogen 13, Creatinine 1.0, Estimat Glomerular Filtration Rate > 60, Glucose Level 110H, Calcium Level 8.2L, Phosphorus Level 2.4L, Magnesium Level 2.3, Total Bilirubin 0.5, Aspartate Amino Transf (AST/SGOT) 38H, Alanine Aminotransferase (ALT/SGPT) 24, Alkaline Phosphatase 128H, Total Protein 6.8, Albumin 1.7L, Globulin 5.1, Albumin/Globulin Ratio 0.3L 07/28/20 07:47: Arterial Blood pH 7.478H, Arterial Blood Partial Pressure CO2 31.2L, Arterial Blood Partial Pressure O2 78.5, Arterial Blood HCO3 22.6, Arterial Blood Oxygen Saturation 95.7, Arterial Blood Base Excess -0.4, Richard Test Positive Height (Feet): 5 Height (Inches): 4.00 Weight (Pounds): 130 General Appearance: no apparent distress EENT: other - On mechanical ventilator Cardiovascular: normal rate Respiratory/Chest: decreased breath sounds - Rate 80s Abdomen: distended Tino Connors MD Jul 28, 2020 16:41
--- NOTE | 2020-07-28 17:20 | Internal Med Progress Note ---
Subjective Date of Service: Jul 28, 2020 Physician Name YaneliDano Attending Physician Ahsan Hodges MD Current Medications Medications (Trade) Dose Ordered Sig/Ankush Route PRN Reason Start Time Stop Time Status Last Admin Dose Admin Acetaminophen (Tylenol) 650 mg Q4H PRN ORAL Temp >100.5 07/03/20 20:30 08/02/20 20:29 07/27/20 13:01 Chlorhexidine Gluconate (Darcy-Hex 2%) 1 applic DAILY@2000 TOPIC 07/17/20 20:00 10/15/20 19:59 07/27/20 20:36 Dextrose (Dextrose 50%) 50 ml Q30M PRN IV Hypoglycemia 07/03/20 22:45 10/01/20 22:44 Heparin Sodium (Porcine) (Heparin 5000 units/ml) 5,000 units EVERY 12 HOURS SUBQ 07/03/20 21:00 08/17/20 20:59 07/28/20 09:09 Insulin Aspart (NovoLOG) EVERY 6 HOURS SUBQ 07/13/20 06:00 10/02/20 06:29 07/26/20 00:30 Linezolid 300 ml @ 300 mls/hr Q12HR IVPB 07/24/20 12:00 07/31/20 11:59 07/28/20 09:07 Midodrine (Pro-Amatine) 10 mg Q8H ORAL 07/22/20 17:00 10/20/20 16:59 07/28/20 09:07 Nitroglycerin (Ntg) 0.4 mg Q5M PRN SL Prn Chest Pain 07/03/20 20:30 08/02/20 20:29 Norepinephrine Bitartrate 250 ml @ 0 mls/hr Q24H IV 07/26/20 13:00 07/29/20 12:59 07/26/20 13:01 Ondansetron HCl (Zofran) 4 mg Q6H PRN IVP Nausea & Vomiting 07/03/20 20:30 08/02/20 20:29 Pantoprazole (Protonix) 40 mg DAILY IV 07/18/20 09:00 08/17/20 08:59 07/28/20 09:08 Polyethylene Glycol (Miralax) 17 gm DAILYPRN PRN ORAL Constipation 07/03/20 20:30 08/02/20 20:29 Promethazine HCl/ Codeine (Phenergan with Codeine) 5 ml Q4H PRN ORAL For Cough 07/03/20 20:30 08/02/20 20:29 Sodium Chloride 1,000 ml @ 50 mls/hr Q20H IV 07/17/20 16:00 08/16/20 15:59 07/28/20 05:59 Allergies: Coded Allergies: No Known Allergies (Unverified , 04/30/12) ROS Limited/Unobtainable: Yes Subjective 79 YO M admitted with shortness of breath. Now pneumonia; previously COVID positive. Cover for Int med-Dr Hodges. ICU. Intubated and sedated. On Levophed Objective Last Vital Signs Date Time Temp Pulse Resp B/P (MAP) Pulse Ox O2 Delivery O2 Flow Rate FiO2 07/28/20 17:00 71 12 98/58 (71) 100 07/28/20 16:00 30 07/28/20 16:00 98.8 07/28/20 16:00 Mechanical Ventilator Mechanical Ventilator Laboratory Tests Test 07/28/20 05:00 07/28/20 07:47 White Blood Count 9.2 K/UL (4.8-10.8) Red Blood Count 3.34 M/UL (4.70-6.10) L Hemoglobin 10.1 G/DL (14.2-18.0) #L Hematocrit 32.5 % (42.0-52.0) #L Mean Corpuscular Volume 97 FL (80-99) Mean Corpuscular Hemoglobin 30.4 PG (27.0-31.0) Mean Corpuscular Hemoglobin Concent 31.2 G/DL (32.0-36.0) L Red Cell Distribution Width 16.7 % (11.6-14.8) H Platelet Count 410 K/UL (150-450) Mean Platelet Volume 7.0 FL (6.5-10.1) Neutrophils (%) (Auto) 63.1 % (45.0-75.0) Lymphocytes (%) (Auto) 28.7 % (20.0-45.0) Monocytes (%) (Auto) 6.2 % (1.0-10.0) Eosinophils (%) (Auto) 1.2 % (0.0-3.0) Basophils (%) (Auto) 0.8 % (0.0-2.0) Sodium Level 139 MMOL/L (136-145) Potassium Level 3.5 MMOL/L (3.5-5.1) Chloride Level 105 MMOL/L (98-107) Carbon Dioxide Level 25 MMOL/L (21-32) Anion Gap 9 mmol/L (5-15) Blood Urea Nitrogen 13 mg/dL (7-18) Creatinine 1.0 MG/DL (0.55-1.30) Estimat Glomerular Filtration Rate > 60 mL/min (>60) Glucose Level 110 MG/DL (74-106) H Calcium Level 8.2 MG/DL (8.5-10.1) L Phosphorus Level 2.4 MG/DL (2.5-4.9) L Magnesium Level 2.3 MG/DL (1.8-2.4) Total Bilirubin 0.5 MG/DL (0.2-1.0) Aspartate Amino Transf (AST/SGOT) 38 U/L (15-37) H Alanine Aminotransferase (ALT/SGPT) 24 U/L (12-78) Alkaline Phosphatase 128 U/L (46-116) H Total Protein 6.8 G/DL (6.4-8.2) Albumin 1.7 G/DL (3.4-5.0) L Globulin 5.1 g/dL Albumin/Globulin Ratio 0.3 (1.0-2.7) L Arterial Blood pH 7.478 (7.350-7.450) Arterial Blood Partial Pressure CO2 31.2 mmHg (35.0-45.0) L Arterial Blood Partial Pressure O2 78.5 mmHg (75.0-100.0) Arterial Blood HCO3 22.6 mmol/L (22.0-26.0) Arterial Blood Oxygen Saturation 95.7 % (95-100) Arterial Blood Base Excess -0.4 (-2-2) Richard Test Positive Intake and Output 07/27/20 07/28/20 19:00 07:00 Intake Total 270 ml 1250 ml Output Total 810 ml 870 ml Balance -540 ml 380 ml Free Water 150 ml 80 ml IV Total 850 ml Tube Feeding 120 ml 320 ml Output Urine Total 810 ml 870 ml # Bowel Movements 2 3 Objective PHYSICAL EXAMINATION: GENERAL: The patient awake with deep stimuli, open his eyes, however, cannot follow commands. The patient is on a Ventimask at this time, chronically ill-appearing. HEAD AND NECK: Pupils are equal and reactive to light. Anicteric. NECK: Supple. No JVD. LUNGS: Mech vent; wheezing, rhonchi, and decreased air in bases. HEART: S1, S2. Regular rhythm. Distant heart sounds. No murmur or gallop. ABDOMEN: Soft, nondistended, nontender. Positive bowel sounds. EXTREMITIES: No cyanosis, clubbing, or edema. NEUROLOGIC: Very limited secondary to the patient's status, cannot follow commands. Opens his eyes with deep stimuli and moving extremities spontaneously. Assessment/Plan Assessment/Plan ASSESSMENT: 1. Acute hypoxemic respiratory failure, most likely secondary to pneumonia and sepsis. 2. Sepsis secondary to urinary tract infection and pneumonia. 3. pneumonia=MRSA; ESBL E. coli 4. Acute kidney injury on chronic renal insufficiency. 5. Dehydration. 6. History of chronic congestive heart failure. 7. Diabetes type 2. 8. Dyslipidemia. 9. Hypertension. 10. Alzheimer's disease. 11. COVID 19 previous positive PLAN: 1. ICU 2. Dr. Carreno,=Pulmonary Critical Care; follow mech vent recs 3. Dr. Cho = Inf Dis. 4. IV= D5W due to the hypernatremia and dehydration. 5. antibiotics = linezolid; S/P micafungin and meropenem 6. Code status is full code. 7. DVT prophylaxis is heparin subcutaneous. Dano Groves MD Jul 28, 2020 17:20
--- NOTE | 2020-07-28 17:20 | NUR ---
NURSE NOTES: Cleaned patient for 1 moderate amount of brown BM. Turned and repositioned patient. Sacral dressing changed as per protocol.
--- NOTE | 2020-07-28 19:26 | NUR ---
NURSE HAND-OFF REPORT: Latest Vital Signs: Temperature 98.8 , Pulse 90 , B/P 131 /59 , Respiratory Rate 13 , O2 SAT 100 , Mechanical Ventilator, O2 Flow Rate . Vital Sign Comment: Stable EKG Rhythm: Sinus Rhythm Rhythm change?: N MD Notified?: MD Response: Latest Gonzalez Fall Score: 50 Fall Risk: High Risk Safety Measures: Call light Within Reach, Bed Alarm Zone 2, Side Rails Side Rails x3, Bed position Low and Locked. Fall Precautions: Yellow Socks Yellow Gown Door Sign Patient Fall Education Report given to Aileen Azul RN.
--- NOTE | 2020-07-28 19:30 | NUR ---
NURSE NOTES: Received report from FLORES Han. Pt is resting on the bed and confused. Pt has ETT and orally intubated. Vent dependent and setting with AC; 12, T: 600, P:0, FiO2 30% and SaO2 100% noted. Given suction and oral care. Pt has NGT and on running with Glucerna 1.2 @ 50cc/hr and goal is 60cc/hr. No residual noted. No fever. No sign of pain by FLACC scale. Dressing is clean and dry on wound area. On P2000 mattress fro wound management. Pt has Rt. upper arm PICC lined and dressing is clean and dry and on running with 1/2NS @ 50cc/hr. On Wiley cath and patent and drainage well. Pt has bilateral soft wrist restraint and checked comfort and circulation. Trying to release bilateral soft restraint but Pt still trying to reach ETT. Placed fall precaution. Will continue to care plan.
[2020-07-28] MEDS: Dyna-Hex 2% Top Sol 2oz TOPIC SCH (20:02)
--- NOTE | 2020-07-28 22:00 | NUR ---
NURSE NOTES: Pt is resting on the bed. SaO2 100% with current Vent setting. Given suction and oral care. On running with NGT feeding and tolerated well. No residual noted. changed position. Will continue to monitor any change of condition.
[2020-07-29] VITALS (24 sets, daily range): BP systolic 99–173; BP diastolic 47–105
--- NOTE | 2020-07-29 | NUR ---
NURSE NOTES: Pt is sleeping on the bed and no sign of acute distress noted. On telemetry monitor with SR. BP is stable. Afebrile. Reposition. No residual noted. Increase NGT feeding @ 60cc/hr. Keep HOB. Placed fall precaution. Will continue to plan of care.
[2020-07-29] MEDS: Midodrine 10mg tab ORAL SCH ×3 (00:52→17:00)
--- NOTE | 2020-07-29 02:00 | NUR ---
NURSE NOTES: Turn and reposition. On case monitor with SR. tolerated well with NGT feeding. SaO2 100% with Vent. Given suction and oral care. BP is stable. Will continue to monitor any change of condition.
--- NOTE | 2020-07-29 04:00 | NUR ---
NURSE NOTES: Morning care was done. Noted moderated amount soft BM. Cleaned Pt and applied lotion and cream. Changed wound dressing. Given suction and oral care. changed position. collected blood sample. SaO2 100% with current Vent setting. Wiley patent and drainage well and noted 100cc/hr urine output. No fever. Placed fall precaution. Will continue to monitor any change of condition.
[2020-07-29 05:56] LABS: EOSINOPHILS % (AUTO) 1.8 % (0.0-3.0); HEMATOCRIT 28.7 % (42.0-52.0); LYMPHOCYTES % (AUTO) 25.1 % (20.0-45.0); MEAN CORPUSCULAR VOLUME 97 FL (80-99); MONOCYTES % (AUTO) 6.1 % (1.0-10.0); NEUTROPHILS % (AUTO) 66.1 % (45.0-75.0); PLATELET COUNT 340 K/UL (150-450); RED BLOOD COUNT 2.95 M/UL (4.70-6.10); RED CELL DISTRIBUTION WIDTH 16.2 % (11.6-14.8)
[2020-07-29 05:57] LABS: BLOOD UREA NITROGEN 14 mg/dL (7-18); CALCIUM 7.6 MG/DL (8.5-10.1); CARBON DIOXIDE 25 MMOL/L (21-32); CHLORIDE 106 MMOL/L (98-107); CREATININE 0.9 MG/DL (0.55-1.30); POTASSIUM 3.6 MMOL/L (3.5-5.1); SODIUM 138 MMOL/L (136-145)
[2020-07-29] MEDS: NovoLOG Insulin Flexpen SUBQ SCH ×4 (06:00→17:51)
--- NOTE | 2020-07-29 06:00 | NUR ---
NURSE NOTES: Pt is sleeping on the bed and SaO2 100% with Vent. Given suction and oral care. BP is stable. Tolerated well with NGT feeding. Changed position. Will continue to monitor any change of condition.
--- NOTE | 2020-07-29 07:09 | NUR ---
NURSE HAND-OFF REPORT: Latest Vital Signs: Temperature 98.8 , Pulse 82 , B/P 134 /75 , Respiratory Rate 16 , O2 SAT 100 , Mechanical Ventilator, O2 Flow Rate . Vital Sign Comment: EKG Rhythm: Sinus Rhythm Rhythm change?: N Latest Gonzalez Fall Score: 50 Fall Risk: High Risk Safety Measures: Call light Within Reach, Bed Alarm Zone 2, Side Rails Side Rails x3, Bed position Low and Locked. Fall Precautions: Yellow Socks Yellow Gown Door Sign Patient Fall Education Report given to Luz Marina Han. Pt is resting on the bed and awake and slight agitated. No sign of acute distress noted.
--- NOTE | 2020-07-29 07:10 | NUR ---
NURSE NOTES: Received bedside report from FLORES Gallagher. Pt's VSS, no signs of distress noted. Pt awake, opens eyes and tracks but does not follow commands. Pt NSR on the cardiac rehabilitation specialist, HR in the 80-90. Pt intubated, ETT 7.5 at 25cm lip line with the following vent settings: A/C rate of 12, T/V 600, 30% FiO2, no peep, O2 sat 95-100%. Pt has NGT on right nare, placement checked, no residual noted, Glucerna 1.2 running at 60 cc/hr. Wiley catheter draining well, clear yellow urine noted. Skin alterations noted and documented in chart, covered with optifoam. Pt has JACQUIE PICC, no complications or bleeding noted from site. Pt on bilateral soft wrist restraints due to trying to pull lines and ETT, no injury noted from extremities. HOB at 30 degrees. Bed locked and in lowest position. Safety precautions in place. Will continue to monitor.
--- NOTE | 2020-07-29 08:22 | Infectious Diseases Prog Note ---
Assessment/Plan 79yo M with: Respiratory code 2ry to mucus plug 07/23 Septic Shock- -recurrent Fever, recurrent, low grade;SP Leukocytosis; recurrent; increased Acute hypoxic resp failure, on NRB mask> 4l NC; back on NRB, desaturation 07/09 > intubated 07/17 Pneumonia- >HAP Hx of COVID19 PNA 05/20/2007/25 Resp cx +MRSA, nl resp bobby UCx neg BCx NTD 07/24 COVID PCR neg --07/21 CXR: Bilateral infiltrates in a peribronchovascular distribution are unchanged. Left pleural effusion is unchanged. --07/19 CXR: Persistent bilateral patchy pulmonary opacities, most prominent in the left lower lung. --07/18 ucx neg sp cx MRSA (colonizer at this point) Bcx Neg --07/13 Bcx Neg 07/10 Sp cx MRSA (Vancomycin APOLONIA 1), ESBL E.coli 07/03 BCx NTD UA 15- WBC, UCx Neg 07/03 COVID rapid neg; 07/06 rapid COVID PCR + (from prior infection)- not new infection Flu A/B neg CXR: L pna Resp cx MRSA MELANIE on CKD, improving SNF resident ([facility]) Non-verbal VRE and MRSA colonized Plan: Cont Zyvoz #6 for MRSA coverage given mucus plug and worsening hemodynamics CXR to trend -07/27 SP meropenem #14 for ESBL pna -07/21 SP Micafungin #4 -07/17 SP IV Vancomycin #15 -07/13 SP Zosyn #4 -07/06 SP Cefepime # -07/04 SP Flagyl # Monitor CBC/CMP Monitor resp status Monitor temp curve and hemodynamics D/w RN Thank you for this consult. [facility] will continue to follow. Subjective Allergies: Coded Allergies: No Known Allergies (Unverified , 04/30/12) AF x36hrs WBC 7.0 NAD Still w/ lots of resp secretions Objective Last 24 Hour Vital Signs Date Time Temp Pulse Resp B/P (MAP) Pulse Ox O2 Delivery O2 Flow Rate FiO2 07/29/20 07:00 82 16 134/75 (94) 100 07/29/20 06:30 73 14 07/29/20 06:00 73 12 109/59 (76) 100 07/29/20 05:00 75 12 120/62 (81) 100 07/29/20 04:00 Mechanical Ventilator Mechanical Ventilator 07/29/20 04:00 30 07/29/20 04:00 98.8 73 12 123/66 (85) 100 07/29/20 04:00 73 07/29/20 03:00 75 16 114/63 (80) 100 07/29/20 02:30 87 18 30 07/29/20 02:00 84 16 126/63 (84) 100 07/29/20 01:00 83 13 105/59 (74) 100 07/29/20 00:00 98.3 80 12 107/59 (75) 100 07/29/20 00:00 Mechanical Ventilator Mechanical Ventilator 07/29/20 00:00 30 07/29/20 00:00 85 07/28/20 23:00 84 12 104/87 (93) 100 07/28/20 22:32 84 14 30 07/28/20 22:07 81 12 120/31 100 07/28/20 22:00 82 12 103/53 (70) 100 07/28/20 21:37 84 15 121/70 100 07/28/20 21:00 84 16 107/60 (76) 100 07/28/20 20:00 30 07/28/20 20:00 86 07/28/20 20:00 98.8 86 14 109/56 (73) 100 07/28/20 20:00 Mechanical Ventilator Mechanical Ventilator 07/28/20 19:10 88 18 30 07/28/20 19:00 84 14 101/58 (72) 100 07/28/20 18:00 90 13 131/59 (83) 100 07/28/20 17:00 71 12 98/58 (71) 100 07/28/20 16:00 30 07/28/20 16:00 98.8 79 13 102/47 (65) 100 07/28/20 16:00 Mechanical Ventilator Mechanical Ventilator 07/28/20 15:17 81 07/28/20 15:00 73 13 97/46 (63) 100 07/28/20 14:51 82 15 30 07/28/20 14:00 81 13 97/44 (61) 100 07/28/20 13:30 Mechanical Ventilator Mechanical Ventilator 07/28/20 13:12 84 25 102/48 99 07/28/20 13:00 89 29 93/44 (60) 100 07/28/20 12:42 89 20 111/59 98 07/28/20 12:05 30 07/28/20 12:00 98.9 87 26 105/53 (70) 100 07/28/20 12:00 Mechanical Ventilator Mechanical Ventilator 07/28/20 12:00 30 07/28/20 12:00 88 07/28/20 11:02 95 07/28/20 11:00 86 16 119/55 (76) 90 07/28/20 10:57 85 12 30 07/28/20 10:00 80 15 106/51 (69) 93 07/28/20 09:00 84 13 100/55 (70) 100 Height (Feet): 5 Height (Inches): 4.00 Weight (Pounds): 130 Gen: NAD in bed HEENT: NCAT CV: RRR Pulm: BL chest rise on vent Abd: Soft, NTND Ext: No c/c/e Neuro: Eyes closed, not interactive Laboratory Tests Test 07/28/20 23:25 07/29/20 04:00 07/29/20 05:26 POC Whole Blood Glucose 115 MG/DL (74-106) H 100 MG/DL (74-106) White Blood Count 7.0 K/UL (4.8-10.8) Red Blood Count 2.95 M/UL (4.70-6.10) L Hemoglobin 9.0 G/DL (14.2-18.0) L Hematocrit 28.7 % (42.0-52.0) L Mean Corpuscular Volume 97 FL (80-99) Mean Corpuscular Hemoglobin 30.4 PG (27.0-31.0) Mean Corpuscular Hemoglobin Concent 31.3 G/DL (32.0-36.0) L Red Cell Distribution Width 16.2 % (11.6-14.8) H Platelet Count 340 K/UL (150-450) Mean Platelet Volume 6.7 FL (6.5-10.1) Neutrophils (%) (Auto) 66.1 % (45.0-75.0) Lymphocytes (%) (Auto) 25.1 % (20.0-45.0) Monocytes (%) (Auto) 6.1 % (1.0-10.0) Eosinophils (%) (Auto) 1.8 % (0.0-3.0) Basophils (%) (Auto) 1.0 % (0.0-2.0) Sodium Level 138 MMOL/L (136-145) Potassium Level 3.6 MMOL/L (3.5-5.1) Chloride Level 106 MMOL/L (98-107) Carbon Dioxide Level 25 MMOL/L (21-32) Blood Urea Nitrogen 14 mg/dL (7-18) Creatinine 0.9 MG/DL (0.55-1.30) Estimat Glomerular Filtration Rate > 60 mL/min (>60) Glucose Level 94 MG/DL (74-106) Calcium Level 7.6 MG/DL (8.5-10.1) L Current Medications Medications (Trade) Dose Ordered Sig/Ankush Route PRN Reason Start Time Stop Time Status Last Admin Dose Admin Acetaminophen (Tylenol) 650 mg Q4H PRN ORAL Temp >100.5 07/03/20 20:30 08/02/20 20:29 07/27/20 13:01 Chlorhexidine Gluconate (Darcy-Hex 2%) 1 applic DAILY@2000 TOPIC 07/17/20 20:00 10/15/20 19:59 07/28/20 20:02 Dextrose (Dextrose 50%) 50 ml Q30M PRN IV Hypoglycemia 07/03/20 22:45 10/01/20 22:44 Heparin Sodium (Porcine) (Heparin 5000 units/ml) 5,000 units EVERY 12 HOURS SUBQ 07/03/20 21:00 08/17/20 20:59 07/28/20 20:39 Insulin Aspart (NovoLOG) EVERY 6 HOURS SUBQ 07/13/20 06:00 10/02/20 06:29 07/26/20 00:30 Linezolid 300 ml @ 300 mls/hr Q12HR IVPB 07/24/20 12:00 07/31/20 11:59 07/28/20 20:38 Lorazepam (Ativan 2mg/ml 1ml) 2 mg Q4H PRN IV For Anxiety 07/28/20 19:15 08/04/20 19:14 07/28/20 21:37 Midodrine (Pro-Amatine) 10 mg Q8H ORAL 07/22/20 17:00 2/9/21 16:59 07/29/20 00:52 Nitroglycerin (Ntg) 0.4 mg Q5M PRN SL Prn Chest Pain 07/03/20 20:30 08/02/20 20:29 Norepinephrine Bitartrate 250 ml @ 0 mls/hr Q24H IV 07/26/20 13:00 07/29/20 12:59 07/26/20 13:01 Ondansetron HCl (Zofran) 4 mg Q6H PRN IVP Nausea & Vomiting 07/03/20 20:30 08/02/20 20:29 Pantoprazole (Protonix) 40 mg DAILY IV 07/18/20 09:00 08/17/20 08:59 07/28/20 09:08 Polyethylene Glycol (Miralax) 17 gm DAILYPRN PRN ORAL Constipation 07/03/20 20:30 08/02/20 20:29 Promethazine HCl/ Codeine (Phenergan with Codeine) 5 ml Q4H PRN ORAL For Cough 07/03/20 20:30 08/02/20 20:29 Sodium Chloride 1,000 ml @ 50 mls/hr Q20H IV 07/17/20 16:00 08/16/20 15:59 07/29/20 04:00 Lorie Ramirez M.D. Jul 29, 2020 08:22
[2020-07-29] MEDS: Pantoprazole Inj IV SCH (08:50)
[2020-07-29] MEDS: Heparin 5000 units/ml inj SUBQ SCH ×2 (08:51→20:35)
--- NOTE | 2020-07-29 09:35 | NUR ---
RESPIRATORY NOTES PT placed on SBT, but unable to continue weaning due to elevated heart rate and high blood pressure. PT immediately placed back onto previous vent settings. FLORES corona. Will continue to monitor.
--- NOTE | 2020-07-29 09:35 | NUR ---
NURSE NOTES: PT failed weaning trial per RT. Pt was getting agitated and restless, MD Flores aware. Will continue to monitor.
--- NOTE | 2020-07-29 09:51 | NUR ---
RADIOLOGY: PCXR COMPLETED 0930HRS. NF
[2020-07-29] MEDS: LORazepam Inj 2mg/ml 1ml IV PRN (11:14)
--- NOTE | 2020-07-29 11:14 | NUR ---
NURSE NOTES: Pt given PRN ativan due to agitation and restlessness, SBP in the 170s, HR in the 120s. MD Flores at bedside to assess pt and made aware of the situation. Will continue to monitor pt.
--- NOTE | 2020-07-29 11:35 | Pulmonolgy Critical Care Note ---
Critical Care - Asmt/Plan Problems: (1) Acute respiratory failure (2) Multifocal pneumonia (3) 2019 novel coronavirus disease (COVID-19) (4) Acute encephalopathy (5) Severe sepsis (6) Alzheimer's dementia (7) HTN (hypertension) (8) History of CVA (cerebrovascular accident) (9) BPH (benign prostatic hyperplasia) Respiratory: monitor respiratory rate, adjust FIO2, CXR Cardiac: d/c desk monitor Renal: F/U I&O Infectious Disease: check cultures, continue antibiotics Gastrointestinal: hold feedings, adjust feedings Hematologic: monitor H/H Neurologic: PRN Ativan, PRN Morphine, keep patient comfortable Notes Reviewed: 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, cardio, renal Discussed with: nurses, consultants, case folderspace systems operations manager - Objective Last 24 Hour Vital Signs Date Time Temp Pulse Resp B/P (MAP) Pulse Ox O2 Delivery O2 Flow Rate FiO2 07/29/20 11:14 120 20 192/120 95 07/29/20 10:00 129 29 163/105 (124) 98 07/29/20 09:35 100 07/29/20 09:20 126 16 30 07/29/20 09:00 72 35 100/47 (64) 95 07/29/20 08:00 97.9 07/29/20 08:00 83 33 100/47 (64) 93 07/29/20 08:00 30 07/29/20 08:00 70 07/29/20 07:40 98 17 30 07/29/20 07:00 82 16 134/75 (94) 100 07/29/20 06:30 73 14 07/29/20 06:00 73 12 109/59 (76) 100 07/29/20 05:00 75 12 120/62 (81) 100 07/29/20 04:00 Mechanical Ventilator Mechanical Ventilator 07/29/20 04:00 30 07/29/20 04:00 98.8 73 12 123/66 (85) 100 07/29/20 04:00 73 07/29/20 03:00 75 16 114/63 (80) 100 07/29/20 02:30 87 18 30 07/29/20 02:00 84 16 126/63 (84) 100 07/29/20 01:00 83 13 105/59 (74) 100 07/29/20 00:00 98.3 80 12 107/59 (75) 100 07/29/20 00:00 Mechanical Ventilator Mechanical Ventilator 07/29/20 00:00 30 07/29/20 00:00 85 07/28/20 23:00 84 12 104/87 (93) 100 07/28/20 22:32 84 14 30 07/28/20 22:07 81 12 120/31 100 07/28/20 22:00 82 12 103/53 (70) 100 07/28/20 21:37 84 15 121/70 100 07/28/20 21:00 84 16 107/60 (76) 100 07/28/20 20:00 30 07/28/20 20:00 86 07/28/20 20:00 98.8 86 14 109/56 (73) 100 07/28/20 20:00 Mechanical Ventilator Mechanical Ventilator 07/28/20 19:10 88 18 30 07/28/20 19:00 84 14 101/58 (72) 100 07/28/20 18:00 90 13 131/59 (83) 100 07/28/20 17:00 71 12 98/58 (71) 100 07/28/20 16:00 30 07/28/20 16:00 98.8 79 13 102/47 (65) 100 07/28/20 16:00 Mechanical Ventilator Mechanical Ventilator 07/28/20 15:17 81 07/28/20 15:00 73 13 97/46 (63) 100 07/28/20 14:51 82 15 30 07/28/20 14:00 81 13 97/44 (61) 100 07/28/20 13:30 Mechanical Ventilator Mechanical Ventilator 07/28/20 13:12 84 25 102/48 99 07/28/20 13:00 89 29 93/44 (60) 100 07/28/20 12:42 89 20 111/59 98 07/28/20 12:05 30 07/28/20 12:00 98.9 87 26 105/53 (70) 100 07/28/20 12:00 Mechanical Ventilator Mechanical Ventilator 07/28/20 12:00 30 07/28/20 12:00 88 Status: obtunded Condition: critical HEENT: atraumatic Neck: full ROM, trach Lungs: rales, rhonchi Heart: HR/BP stable Abdomen: soft, active bowel sounds Extremities: no C/C/E Accucheck: 197 Critical Care - Subjective ROS Limited/Unobtainable: Yes Condition: critical EKG Rhythm: Sinus Rhythm FI02: 30 Vent Support Breath Rate: 12 Vent Support Mode: AC Vent Tidal Volume: 600 Sputum Amount: Moderate PEEP: 0.0 PIP: 49 Tube Feeding Amount: 60 I&O: Intake and Output 07/28/20 07/29/20 19:00 07:00 Intake Total 1615.832 ml 1480 ml Output Total 855 ml 1200 ml Balance 760.832 ml 280 ml Free Water 80 ml IV Total 1040.832 ml 800 ml Tube Feeding 495 ml 680 ml Output Urine Total 855 ml 1200 ml # Bowel Movements 2 2 CXR: no changes ET-Tube: 7.5 ET Position: 25 Labs: Laboratory Tests Test 07/28/20 23:25 07/29/20 04:00 07/29/20 05:26 POC Whole Blood Glucose 115 MG/DL (74-106) H 100 MG/DL (74-106) White Blood Count 7.0 K/UL (4.8-10.8) Red Blood Count 2.95 M/UL (4.70-6.10) L Hemoglobin 9.0 G/DL (14.2-18.0) L Hematocrit 28.7 % (42.0-52.0) L Mean Corpuscular Volume 97 FL (80-99) Mean Corpuscular Hemoglobin 30.4 PG (27.0-31.0) Mean Corpuscular Hemoglobin Concent 31.3 G/DL (32.0-36.0) L Red Cell Distribution Width 16.2 % (11.6-14.8) H Platelet Count 340 K/UL (150-450) Mean Platelet Volume 6.7 FL (6.5-10.1) Neutrophils (%) (Auto) 66.1 % (45.0-75.0) Lymphocytes (%) (Auto) 25.1 % (20.0-45.0) Monocytes (%) (Auto) 6.1 % (1.0-10.0) Eosinophils (%) (Auto) 1.8 % (0.0-3.0) Basophils (%) (Auto) 1.0 % (0.0-2.0) Sodium Level 138 MMOL/L (136-145) Potassium Level 3.6 MMOL/L (3.5-5.1) Chloride Level 106 MMOL/L (98-107) Carbon Dioxide Level 25 MMOL/L (21-32) Blood Urea Nitrogen 14 mg/dL (7-18) Creatinine 0.9 MG/DL (0.55-1.30) Estimat Glomerular Filtration Rate > 60 mL/min (>60) Glucose Level 94 MG/DL (74-106) Calcium Level 7.6 MG/DL (8.5-10.1) Kya Maier MD Jul 29, 2020 11:35
--- NOTE | 2020-07-29 11:50 | Internal Med Progress Note ---
Subjective Date of Service: Jul 29, 2020 Physician Name Dano Groves Attending Physician Ahsan Hodges MD Current Medications Medications (Trade) Dose Ordered Sig/Ankush Route PRN Reason Start Time Stop Time Status Last Admin Dose Admin Acetaminophen (Tylenol) 650 mg Q4H PRN ORAL Temp >100.5 07/03/20 20:30 08/02/20 20:29 07/27/20 13:01 Chlorhexidine Gluconate (Darcy-Hex 2%) 1 applic DAILY@2000 TOPIC 07/17/20 20:00 10/15/20 19:59 07/28/20 20:02 Dextrose (Dextrose 50%) 50 ml Q30M PRN IV Hypoglycemia 07/03/20 22:45 10/01/20 22:44 Heparin Sodium (Porcine) (Heparin 5000 units/ml) 5,000 units EVERY 12 HOURS SUBQ 07/03/20 21:00 08/17/20 20:59 07/29/20 08:51 Insulin Aspart (NovoLOG) EVERY 6 HOURS SUBQ 07/13/20 06:00 10/02/20 06:29 07/29/20 11:26 Linezolid 300 ml @ 300 mls/hr Q12HR IVPB 07/24/20 12:00 07/31/20 11:59 07/29/20 08:53 Lorazepam (Ativan 2mg/ml 1ml) 2 mg Q4H PRN IV For Anxiety 07/28/20 19:15 08/04/20 19:14 07/29/20 11:14 Midodrine (Pro-Amatine) 10 mg Q8H ORAL 07/22/20 17:00 10/20/20 16:59 07/29/20 08:51 Nitroglycerin (Ntg) 0.4 mg Q5M PRN SL Prn Chest Pain 07/03/20 20:30 08/02/20 20:29 Norepinephrine Bitartrate 250 ml @ 0 mls/hr Q24H IV 07/26/20 13:00 07/29/20 12:59 07/26/20 13:01 Ondansetron HCl (Zofran) 4 mg Q6H PRN IVP Nausea & Vomiting 07/03/20 20:30 08/02/20 20:29 Pantoprazole (Protonix) 40 mg DAILY IV 11/7/20 09:00 08/17/20 08:59 07/29/20 08:50 Polyethylene Glycol (Miralax) 17 gm DAILYPRN PRN ORAL Constipation 07/03/20 20:30 08/02/20 20:29 Promethazine HCl/ Codeine (Phenergan with Codeine) 5 ml Q4H PRN ORAL For Cough 07/03/20 20:30 08/02/20 20:29 Sodium Chloride 1,000 ml @ 50 mls/hr Q20H IV 07/17/20 16:00 08/16/20 15:59 07/29/20 04:00 Allergies: Coded Allergies: No Known Allergies (Unverified , 04/30/12) ROS Limited/Unobtainable: Yes Subjective 79 YO M admitted with shortness of breath. Now pneumonia; previously COVID positive. Cover for Int med-Dr Hodges. ICU. Intubated and sedated. On Levophed Objective Last Vital Signs Date Time Temp Pulse Resp B/P (MAP) Pulse Ox O2 Delivery O2 Flow Rate FiO2 07/29/20 11:14 120 20 192/120 95 07/29/20 09:20 30 07/29/20 08:00 97.9 07/29/20 04:00 Mechanical Ventilator Mechanical Ventilator Laboratory Tests Test 07/28/20 23:25 07/29/20 04:00 07/29/20 05:26 POC Whole Blood Glucose 115 MG/DL (74-106) H 100 MG/DL (74-106) White Blood Count 7.0 K/UL (4.8-10.8) Red Blood Count 2.95 M/UL (4.70-6.10) L Hemoglobin 9.0 G/DL (14.2-18.0) L Hematocrit 28.7 % (42.0-52.0) L Mean Corpuscular Volume 97 FL (80-99) Mean Corpuscular Hemoglobin 30.4 PG (27.0-31.0) Mean Corpuscular Hemoglobin Concent 31.3 G/DL (32.0-36.0) L Red Cell Distribution Width 16.2 % (11.6-14.8) H Platelet Count 340 K/UL (150-450) Mean Platelet Volume 6.7 FL (6.5-10.1) Neutrophils (%) (Auto) 66.1 % (45.0-75.0) Lymphocytes (%) (Auto) 25.1 % (20.0-45.0) Monocytes (%) (Auto) 6.1 % (1.0-10.0) Eosinophils (%) (Auto) 1.8 % (0.0-3.0) Basophils (%) (Auto) 1.0 % (0.0-2.0) Sodium Level 138 MMOL/L (136-145) Potassium Level 3.6 MMOL/L (3.5-5.1) Chloride Level 106 MMOL/L (98-107) Carbon Dioxide Level 25 MMOL/L (21-32) Blood Urea Nitrogen 14 mg/dL (7-18) Creatinine 0.9 MG/DL (0.55-1.30) Estimat Glomerular Filtration Rate > 60 mL/min (>60) Glucose Level 94 MG/DL (74-106) Calcium Level 7.6 MG/DL (8.5-10.1) L Intake and Output 07/28/20 07/29/20 19:00 07:00 Intake Total 1615.832 ml 1480 ml Output Total 855 ml 1200 ml Balance 760.832 ml 280 ml Free Water 80 ml IV Total 1040.832 ml 800 ml Tube Feeding 495 ml 680 ml Output Urine Total 855 ml 1200 ml # Bowel Movements 2 2 Objective PHYSICAL EXAMINATION: GENERAL: The patient awake with deep stimuli, open his eyes, however, cannot follow commands. The patient is on a Ventimask at this time, chronically ill-appearing. HEAD AND NECK: Pupils are equal and reactive to light. Anicteric. NECK: Supple. No JVD. LUNGS: Mech vent; wheezing, rhonchi, and decreased air in bases. HEART: S1, S2. Regular rhythm. Distant heart sounds. No murmur or gallop. ABDOMEN: Soft, nondistended, nontender. Positive bowel sounds. EXTREMITIES: No cyanosis, clubbing, or edema. NEUROLOGIC: Very limited secondary to the patient's status, cannot follow commands. Opens his eyes with deep stimuli and moving extremities spontaneously. Assessment/Plan Assessment/Plan ASSESSMENT: 1. Acute hypoxemic respiratory failure, most likely secondary to pneumonia and sepsis. 2. Sepsis secondary to urinary tract infection and pneumonia. 3. pneumonia=MRSA; ESBL E. coli 4. Acute kidney injury on chronic renal insufficiency. 5. Dehydration. 6. History of chronic congestive heart failure. 7. Diabetes type 2. 8. Dyslipidemia. 9. Hypertension. 10. Alzheimer's disease. 11. COVID 19 previous positive PLAN: 1. ICU 2. Dr. Carreno,=Pulmonary Critical Care; follow [facility] recs 3. Dr. Cho = Inf Dis. 4. IV= D5W due to the hypernatremia and dehydration. 5. antibiotics = linezolid; S/P micafungin and meropenem 6. Code status is full code. 7. DVT prophylaxis is heparin subcutaneous. Dano Groves MD Jul 29, 2020 11:50
--- NOTE | 2020-07-29 12:00 | NUR ---
NURSE NOTES: Pt noted to have decreased restlessness and agitation. Pt's temp taken, 99.9. Colds packs given to decrease fever. Will re-assess temperature. Pt's other VS stable. Will continue to monitor.
--- NOTE | 2020-07-29 12:57 | Nephrology Progress Note ---
Assessment/Plan Problem List: (1) Dehydration (2) MELANIE (acute kidney injury) (3) Renal failure (ARF), acute on chronic (4) Hypoxia (5) Acute encephalopathy (6) Electrolyte imbalance Assessment 79-year-old male is admitted with acute hypoxic respiratory failure most likely secondary to pneumonia and sepsis, UTI. Acute on chronic renal failure Dehydration Electrolyte imbalances, hypernatremia Hypoalbuminemia Diabetes type 2 History of congestive heart failure Hypertension Hyperlipemia Alzheimer's Previous COVID-19 infection in May 2020 Plan July 29: Failed weaning. Remains intubated. Remains full closed. Labs reviewed. Stable from renal standpoint view. July 28: Remains in ICU. Remains full code. Labs are reviewed. Phosphorus supplement given. Continue per consultants. July 27: Remains in ICU. Full code. Labs reviewed. Remains intubated. Stable renal parameters. July 26: In ICU. Full code. Discussed with RN. Stable renal parameters. July 25: Seen in ICU. Discussed with FLORES Holliday. Flomax discontinued. Labs reviewed. Stable from renal standpoint of view. July 24: Seen in ICU. Discussed with FLORES Holliday. Remains on pressor. Electrolyte abnormalities noted and addressed. Continue per consultants. Patient remains full code. July 23: Seen in ICU. Discussed with FLORES Barrera. Blood pressure remains a little requiring pressors. Labs reviewed. Stable renal parameters. Continue per consultants. July 22: Remains intubated. Full code. Blood pressure borderline low. Will increase midodrine dose. Discussed with RN. Continue to monitor renal parameters and electrolytes. July 21: Intubated. Full code. Labs reviewed. Stable from renal standpoint of view. Continue per consultants. July 20: Remains intubated. Full code. Labs reviewed. Electrolytes within normal limit. Continue per consultants. July 19: In ICU. Remains intubated on ventilator. Remains full code. Low potassium addressed. Blood pressure fluctuating. Continue per consultants. July 18: Patient in ICU. Intubated on ventilator. On 6 mics of Levophed. Will give 100 cc albumin 25%. K-Phos IV ordered. Continue per consultants. Continue monitor renal parameters and electrolytes. July 17: Status unchanged. Transfer to [facility] for seizure. Stable from renal standpoint to view. Continue per consultants. July 16: Status quo. Labs reviewed. Renal parameters stable. Continue per consultants. July 15: On nonrebreather mask. Labs reviewed. Renal parameters stable.Continue per senior telecommunications engineer. Clinically unchanged. July 14: On nonrebreather mask. Inflammatory markers gradually declining. Renal parameters stable. Continue per pulmonary. July 13: Remains on nonrebreather mask. Inflammatory markers remain elevated. Renal parameters somewhat stable. Continue per pulmonary and ID. Remains full code. July 12: Patient on nonrebreather mask. Labs noted. Serum creatinine down to 1.3. Continue per consultants. July 11: Patient on nonrebreather mask. Transfer to telemetry when seen this morning. Labs noted. Continue per consultants. Serum creatinine erin to 1.7. Continue to monitor renal parameters. Continue to monitor vancomycin level July 10: Patient is not doing well clinically. Mild respiratory distress. ABG noted. Somewhat hypoxic. CBC and chemistry panel ordered. Discussed with FLORES Cho. Will defer to pulmonary management to specialist. Continue per ID. Renal parameters remained stable as of July 09. July 09: Labs reviewed. Renal parameters stable. Continue per consultants. July 08: Labs reviewed. Potassium via NG tube ordered. IV fluids stopped. Continue per consultants. July 07: Labs reviewed. Low potassium and low phosphorus replaced. Continue per consultants. Remains stable from renal standpoint of view. July 06: Patient remains n.p.o. IV fluid down to 50 cc an hour. Potassium supplement intravenously ordered. Continue per consultants. Previously: Patient is n.p.o., will continue on IV fluid of D5W 75 cc an hour We will monitor electrolytes and renal parameters Avoid nephrotoxic's Start p.o. when he clears by speech therapist, meanwhile aspiration precautions Keep the blood pressure and blood sugar in check Per orders Subjective ROS Limited/Unobtainable: Yes Objective Objective Last 24 Hour Vital Signs Date Time Temp Pulse Resp B/P (MAP) Pulse Ox O2 Delivery O2 Flow Rate FiO2 07/29/20 12:00 30 07/29/20 12:00 Mechanical Ventilator Mechanical Ventilator 07/29/20 12:00 99.9 135 30 105/77 (86) 99 07/29/20 11:44 125 25 173/96 100 07/29/20 11:20 115 07/29/20 11:14 120 20 192/120 95 07/29/20 11:00 128 24 173/96 (121) 95 07/29/20 10:00 129 29 163/105 (124) 98 11/18/20 09:35 100 07/29/20 09:20 126 16 30 07/29/20 09:00 72 35 100/47 (64) 95 07/29/20 08:00 Mechanical Ventilator Mechanical Ventilator 07/29/20 08:00 97.9 07/29/20 08:00 83 33 100/47 (64) 93 07/29/20 08:00 30 07/29/20 08:00 70 07/29/20 07:40 98 17 30 07/29/20 07:00 82 16 134/75 (94) 100 07/29/20 06:30 73 14 07/29/20 06:00 73 12 109/59 (76) 100 07/29/20 05:00 75 12 120/62 (81) 100 07/29/20 04:00 Mechanical Ventilator Mechanical Ventilator 07/29/20 04:00 30 07/29/20 04:00 98.8 73 12 123/66 (85) 100 07/29/20 04:00 73 07/29/20 03:00 75 16 114/63 (80) 100 07/29/20 02:30 87 18 30 07/29/20 02:00 84 16 126/63 (84) 100 07/29/20 01:00 83 13 105/59 (74) 100 07/29/20 00:00 98.3 80 12 107/59 (75) 100 07/29/20 00:00 Mechanical Ventilator Mechanical Ventilator 07/29/20 00:00 30 07/29/20 00:00 85 07/28/20 23:00 84 12 104/87 (93) 100 07/28/20 22:32 84 14 30 07/28/20 22:07 81 12 120/31 100 07/28/20 22:00 82 12 103/53 (70) 100 07/28/20 21:37 84 15 121/70 100 07/28/20 21:00 84 16 107/60 (76) 100 07/28/20 20:00 30 07/28/20 20:00 86 07/28/20 20:00 98.8 86 14 109/56 (73) 100 07/28/20 20:00 Mechanical Ventilator Mechanical Ventilator 07/28/20 19:10 88 18 30 07/28/20 19:00 84 14 101/58 (72) 100 07/28/20 18:00 90 13 131/59 (83) 100 07/28/20 17:00 71 12 98/58 (71) 100 07/28/20 16:00 30 07/28/20 16:00 98.8 79 13 102/47 (65) 100 07/28/20 16:00 Mechanical Ventilator Mechanical Ventilator 07/28/20 15:17 81 07/28/20 15:00 73 13 97/46 (63) 100 07/28/20 14:51 82 15 30 07/28/20 14:00 81 13 97/44 (61) 100 07/28/20 13:30 Mechanical Ventilator Mechanical Ventilator 07/28/20 13:12 84 25 102/48 99 07/28/20 13:00 89 29 93/44 (60) 100 Intake and Output 07/28/20 07/29/20 19:00 07:00 Intake Total 1615.832 ml 1480 ml Output Total 855 ml 1200 ml Balance 760.832 ml 280 ml Free Water 80 ml IV Total 1040.832 ml 800 ml Tube Feeding 495 ml 680 ml Output Urine Total 855 ml 1200 ml # Bowel Movements 2 2 Current Medications Medications (Trade) Dose Ordered Sig/Ankush Route PRN Reason Start Time Stop Time Status Last Admin Dose Admin Acetaminophen (Tylenol) 650 mg Q4H PRN ORAL Temp >100.5 07/03/20 20:30 08/02/20 20:29 07/27/20 13:01 Chlorhexidine Gluconate (Darcy-Hex 2%) 1 applic DAILY@2000 TOPIC 07/17/20 20:00 10/15/20 19:59 07/28/20 20:02 Dextrose (Dextrose 50%) 50 ml Q30M PRN IV Hypoglycemia 07/03/20 22:45 10/01/20 22:44 Heparin Sodium (Porcine) (Heparin 5000 units/ml) 5,000 units EVERY 12 HOURS SUBQ 07/03/20 21:00 08/17/20 20:59 07/29/20 08:51 Insulin Aspart (NovoLOG) EVERY 6 HOURS SUBQ 07/13/20 06:00 10/02/20 06:29 07/29/20 11:26 Linezolid 300 ml @ 300 mls/hr Q12HR IVPB 07/24/20 12:00 07/31/20 11:59 07/29/20 08:53 Lorazepam (Ativan 2mg/ml 1ml) 2 mg Q4H PRN IV For Anxiety 07/28/20 19:15 08/04/20 19:14 07/29/20 11:14 Midodrine (Pro-Amatine) 10 mg Q8H ORAL 07/22/20 17:00 10/20/20 16:59 07/29/20 08:51 Nitroglycerin (Ntg) 0.4 mg Q5M PRN SL Prn Chest Pain 07/03/20 20:30 08/02/20 20:29 Norepinephrine Bitartrate 250 ml @ 0 mls/hr Q24H IV 07/26/20 13:00 07/29/20 12:59 07/26/20 13:01 Ondansetron HCl (Zofran) 4 mg Q6H PRN IVP Nausea & Vomiting 07/03/20 20:30 08/02/20 20:29 Pantoprazole (Protonix) 40 mg DAILY IV 07/18/20 09:00 08/17/20 08:59 07/29/20 08:50 Polyethylene Glycol (Miralax) 17 gm DAILYPRN PRN ORAL Constipation 07/03/20 20:30 08/02/20 20:29 Promethazine HCl/ Codeine (Phenergan with Codeine) 5 ml Q4H PRN ORAL For Cough 07/03/20 20:30 08/02/20 20:29 Sodium Chloride 1,000 ml @ 50 mls/hr Q20H IV 07/17/20 16:00 08/16/20 15:59 07/29/20 04:00 Laboratory Tests 07/28/20 23:25: POC Whole Blood Glucose 115H 07/29/20 04:00: White Blood Count 7.0, Red Blood Count 2.95L, Hemoglobin 9.0L, Hematocrit 28.7L, Mean Corpuscular Volume 97, Mean Corpuscular Hemoglobin 30.4, Mean Corpuscular Hemoglobin Concent 31.3L, Red Cell Distribution Width 16.2H, Platelet Count 340, Mean Platelet Volume 6.7, Neutrophils (%) (Auto) 66.1, Lymphocytes (%) (Auto) 25.1, Monocytes (%) (Auto) 6.1, Eosinophils (%) (Auto) 1.8, Basophils (%) (Auto) 1.0, Sodium Level 138, Potassium Level 3.6, Chloride Level 106, Carbon Dioxide Level 25, Blood Urea Nitrogen 14, Creatinine 0.9, Estimat Glomerular Filtration Rate > 60, Glucose Level 94, Calcium Level 7.6L 07/29/20 05:26: POC Whole Blood Glucose 100 Height (Feet): 5 Height (Inches): 4.00 Weight (Pounds): 130 General Appearance: no apparent distress EENT: other - Remains on mechanical ventilation Cardiovascular: tachycardia Respiratory/Chest: decreased breath sounds Abdomen: distended Tino Connors MD Jul 29, 2020 12:57
--- NOTE | 2020-07-29 13:09 | Cardiac Electrophysiology PN ---
Assessment/Plan Assessment/Plan 1. Accelerated junctional rhythm. Ruled out for NE Echo showed ejection fraction of 55%. 2. Long run of 31 beats of Nonsustained VT on 07/14/2020. Cardiac cath after stabilization. 3. Aníbal 30, Asystole while on the Vent due to resp failure/ likely mucus plug . S/P Code 4. Respiratory failure, on antibiotic and intubated on the vent Failed weaning. No consent for trach yet 5. Septic shock. Off Levophed and on Midodrine 10 tid 6. History of previous COVID infection in May 2020 and active Covid in isolation 7. Dementia. SHAYY RN Subjective Subjective In SR in NAD in Covid isolation. In ICU on the Vent Fio2 30%, PEEP 5 Had 31 beats of VT on 07/14/20 at 16:46 and 5 beats 07/19/20 Coded on 07/23/20 as sat dropped to 20% and got aníbal 30s and PEA and pulseless Off Levophed on Midodrine 10 tid Covid test yesterday was negative. Failed weaning. Family refusing trach Objective Last 24 Hour Vital Signs Date Time Temp Pulse Resp B/P (MAP) Pulse Ox O2 Delivery O2 Flow Rate FiO2 07/29/20 12:00 30 07/29/20 12:00 Mechanical Ventilator Mechanical Ventilator 07/29/20 12:00 99.9 135 30 105/77 (86) 99 07/29/20 11:44 125 25 173/96 100 07/29/20 11:20 115 07/29/20 11:14 120 20 192/120 95 07/29/20 11:00 128 24 173/96 (121) 95 07/29/20 10:00 129 29 163/105 (124) 98 07/29/20 09:35 100 07/29/20 09:20 126 16 30 07/29/20 09:00 72 35 100/47 (64) 95 07/29/20 08:00 Mechanical Ventilator Mechanical Ventilator 07/29/20 08:00 97.9 07/29/20 08:00 83 33 100/47 (64) 93 07/29/20 08:00 30 07/29/20 08:00 70 07/29/20 07:40 98 17 30 07/29/20 07:00 82 16 134/75 (94) 100 07/29/20 06:30 73 14 07/29/20 06:00 73 12 109/59 (76) 100 07/29/20 05:00 75 12 120/62 (81) 100 07/29/20 04:00 Mechanical Ventilator Mechanical Ventilator 07/29/20 04:00 30 07/29/20 04:00 98.8 73 12 123/66 (85) 100 07/29/20 04:00 73 07/29/20 03:00 75 16 114/63 (80) 100 07/29/20 02:30 87 18 30 07/29/20 02:00 84 16 126/63 (84) 100 07/29/20 01:00 83 13 105/59 (74) 100 07/29/20 00:00 98.3 80 12 107/59 (75) 100 07/29/20 00:00 Mechanical Ventilator Mechanical Ventilator 07/29/20 00:00 30 07/29/20 00:00 85 07/28/20 23:00 84 12 104/87 (93) 100 07/28/20 22:32 84 14 30 07/28/20 22:07 81 12 120/31 100 07/28/20 22:00 82 12 103/53 (70) 100 07/28/20 21:37 84 15 121/70 100 07/28/20 21:00 84 16 107/60 (76) 100 07/28/20 20:00 30 07/28/20 20:00 86 07/28/20 20:00 98.8 86 14 109/56 (73) 100 07/28/20 20:00 Mechanical Ventilator Mechanical Ventilator 07/28/20 19:10 88 18 30 07/28/20 19:00 84 14 101/58 (72) 100 07/28/20 18:00 90 13 131/59 (83) 100 07/28/20 17:00 71 12 98/58 (71) 100 07/28/20 16:00 30 07/28/20 16:00 98.8 79 13 102/47 (65) 100 07/28/20 16:00 Mechanical Ventilator Mechanical Ventilator 07/28/20 15:17 81 07/28/20 15:00 73 13 97/46 (63) 100 07/28/20 14:51 82 15 30 07/28/20 14:00 81 13 97/44 (61) 100 07/28/20 13:30 Mechanical Ventilator Mechanical Ventilator 07/28/20 13:12 84 25 102/48 99 Intake and Output 07/28/20 07/29/20 19:00 07:00 Intake Total 1615.832 ml 1480 ml Output Total 855 ml 1200 ml Balance 760.832 ml 280 ml Free Water 80 ml IV Total 1040.832 ml 800 ml Tube Feeding 495 ml 680 ml Output Urine Total 855 ml 1200 ml # Bowel Movements 2 2 Laboratory Tests Test 07/28/20 23:25 07/29/20 04:00 07/29/20 05:26 POC Whole Blood Glucose 115 MG/DL (74-106) H 100 MG/DL (74-106) White Blood Count 7.0 K/UL (4.8-10.8) Red Blood Count 2.95 M/UL (4.70-6.10) L Hemoglobin 9.0 G/DL (14.2-18.0) L Hematocrit 28.7 % (42.0-52.0) L Mean Corpuscular Volume 97 FL (80-99) Mean Corpuscular Hemoglobin 30.4 PG (27.0-31.0) Mean Corpuscular Hemoglobin Concent 31.3 G/DL (32.0-36.0) L Red Cell Distribution Width 16.2 % (11.6-14.8) H Platelet Count 340 K/UL (150-450) Mean Platelet Volume 6.7 FL (6.5-10.1) Neutrophils (%) (Auto) 66.1 % (45.0-75.0) Lymphocytes (%) (Auto) 25.1 % (20.0-45.0) Monocytes (%) (Auto) 6.1 % (1.0-10.0) Eosinophils (%) (Auto) 1.8 % (0.0-3.0) Basophils (%) (Auto) 1.0 % (0.0-2.0) Sodium Level 138 MMOL/L (136-145) Potassium Level 3.6 MMOL/L (3.5-5.1) Chloride Level 106 MMOL/L (98-107) Carbon Dioxide Level 25 MMOL/L (21-32) Blood Urea Nitrogen 14 mg/dL (7-18) Creatinine 0.9 MG/DL (0.55-1.30) Estimat Glomerular Filtration Rate > 60 mL/min (>60) Glucose Level 94 MG/DL (74-106) Calcium Level 7.6 MG/DL (8.5-10.1) L Objective HEAD AND NECK: No JVD. Orally intubated LUNGS: Coarse rhonchi. CARDIOVASCULAR: Irregular S1 and S2 with no gallop. ABDOMEN: Soft. EXTREMITIES: No pitting edema. Klever Matt MD Jul 29, 2020 13:09
--- NOTE | 2020-07-29 13:50 | Diagnostic Imaging Report ---
Indication: Nasogastric intubation. Check NG tube placement. Technique: XRAY Abdomen 1v Comparison: 07/27/2020 Findings: NG tube has been retracted. The tip is at the gastroesophageal junction and the side-port is in the distal esophagus. Recommend advancement (approximately 7 cm). Bilateral airspace disease is noted. No acute osseous abnormalities appreciated. IMPRESSION: NG tube tip at the gastroesophageal junction, side port in the distal esophagus. Advancement of November approximately 7 cm) recommended. This was communicated to the ICU staff.
--- NOTE | 2020-07-29 14:10 | NUR ---
NURSE NOTES: Pt's VSS, no signs of distress noted. Pt awake and alert, opens eyes but does not follow commands. Safety precautions maintained. Will continue to monitor.
--- NOTE | 2020-07-29 14:54 | Diagnostic Imaging Report ---
Indication: Shortness of breath Technique: XRAY Chest 1v Comparison: 07/27/2020 Findings: Endotracheal and enteric tubes remain in place with satisfactory position. Heart size and mediastinal contour is grossly stable. No significant interval change in small left pleural effusion and patchy bilateral infiltrates. No pneumothorax. Osseous structures are stable. Impression: No significant interval change in the radiographic appearance the chest compared to one day prior.
--- NOTE | 2020-07-29 16:20 | NUR ---
NURSE NOTES: Pt's VS remain stable, afebrile. Pt repositioned, bed bath provided, linens changed. Safety precautions maintained. Will continue to monitor.
--- NOTE | 2020-07-29 17:32 | Diagnostic Imaging Report ---
EXAM: XR Abdomen, 2 Views CLINICAL HISTORY: NGT TECHNIQUE: Frontal view of the abdomen/pelvis with upright view of the abdomen. COMPARISON: 07/08/2020. FINDINGS: Lower thorax: There is mild to moderate interstitial lung disease diffusely. There is cardiomegaly. 1.5 cm nodular density of the right lung base. Neoplasm cannot be excluded. Dedicated CT imaging of the chest is advised to follow. Probable tiny left pleural effusion. Intraperitoneal space: No free air. Gastrointestinal tract: Unremarkable. No dilation. Bones/joints: Osteopenia. Fracture of the anterior lateral aspect of the right eighth rib of indeterminate age. All fracture of the posterior lateral aspect of the left fourth rib. Tubes, lines and devices: Endotracheal tube is noted in place with its tip beneath the thoracic inlet. NG tube is noted in place with its tip just below the gastroesophageal junction. The side port is above the gastroesophageal junction. The NG tube should be advanced by approximately 4 cm forward. IMPRESSION: 1. Nodule at the right lung base. Neoplasm cannot be excluded. CT imaging of the chest is advised to follow. 2. NG tube should be advanced by proximally 4 cm forward. 3. Endotracheal tube is in good position. 4. Diffuse interstitial lung disease. 5. Probable tiny left pleural effusion. <MYCVCSECTION> Communications: 07/29/20 17:39 Call Nurse FLORES MERAZ on 07/29 17:39 (-08:00)
[2020-07-29] MEDS ORDERED: Sterile Water Irrig 1000ml IRRIG ONE (17:48)
[2020-07-29] MEDS ORDERED: NS 275ml ONE (17:48)
--- NOTE | 2020-07-29 18:15 | NUR ---
NURSE NOTES: Pt's NGT re-placed, will endorse KUB order to shift supervisor RN. NGT feeding still on hold until placement is verified. Pt's VS remain stable, no signs of distress noted, afebrile. Pt repositioned, oral care and bed bath provided, linens changed. Safety precautions maintained. Will continue to monitor.
--- NOTE | 2020-07-29 19:10 | NUR ---
NURSE HAND-OFF REPORT: Latest Vital Signs: Temperature 98.3 , Pulse 87 , B/P 109 /62 , Respiratory Rate 12 , O2 SAT 100 , Mechanical Ventilator, O2 Flow Rate . Vital Sign Comment: EKG Rhythm: Sinus Rhythm Rhythm change?: N MD Notified?: MD Response: Latest Gonzalez Fall Score: 50 Fall Risk: High Risk Safety Measures: Call light Within Reach, Bed Alarm Zone 2, Side Rails Side Rails x3, Bed position Low and Locked. Fall Precautions: Yellow Socks Yellow Gown Door Sign Patient Fall Education Report given to FLORES Gallagher for continuity of care.
--- NOTE | 2020-07-29 19:33 | NUR ---
NURSE NOTES: Received report from FLORES Han. Pt is resting on the bed and confused. Pt has ETT and orally intubated. Vent dependent and setting with AC; 12, T: 600, P:0, FiO2 30% and SaO2 100% noted. Given suction and oral care. No fever. No sign of pain by FLACC scale. On traffic monitor specialist with SR. Dressing is clean and dry on wound area. On P2000 mattress fro wound management. Pt has Rt. upper arm PICC lined and dressing is clean and dry and on running with 1/2NS @ 50cc/hr. On Wiley cath and patent and drainage well. Pt has bilateral soft wrist restraint and checked comfort and circulation. Reinserted NGT by previous nursed. KUB order fo placement. Held NGT feeding. Placed fall precaution. Will continue to care plan.
[2020-07-29] MEDS: Dyna-Hex 2% Top Sol 2oz TOPIC SCH (19:53)
--- NOTE | 2020-07-29 20:07 | Diagnostic Imaging Report ---
Abdomen one view History: NG tube placement Comparison: 07/29/2020, 1654 hrs. Findings: NG tube extends into the mid/distal stomach. Course increased lung markings. Lumbar spine degenerative changes. Bones are unremarkable. Impression: 1. NG tube in the mid/distal stomach in satisfactory position.
--- NOTE | 2020-07-29 20:50 | NUR ---
NURSE NOTES: Get MARY result and in placed NGT. Started NGT feeding @ 30cc/hr. No residual noted. will continue to monitor.
--- NOTE | 2020-07-29 22:00 | NUR ---
NURSE NOTES: Pt is sleeping on the bed. SaO2 100% with current Vent setting. On running with NGT feeding @ 30cc/hr and no residual noted. On manager ecommerce with SR. BP is stable. Given suction. Changed position. Trying to release restraint and successful. d/c'd restraint. Will continue to monitor any change of condition.
[2020-07-30] VITALS (26 sets, daily range): BP systolic 93–174; BP diastolic 48–96
--- NOTE | 2020-07-30 | NUR ---
NURSE NOTES: Pt is resting on the bed and awake and confused and agitated. SaO2 100% with Current Vent setting. Pt trying to remove ETT and NGT. Remind Pt do not touch medical transcriber but Pt' didn't understand. Get order and applied bilateral soft restraint. checked comfort and circulation. On running with NGT feeding @ 30cc/hr and no residual noted. No fever. Placed fall precaution. Will continue to monitor any change of condition.
[2020-07-30] MEDS: Midodrine 10mg tab ORAL SCH ×3 (00:45→17:28)
[2020-07-30] MEDS: LORazepam Inj 2mg/ml 1ml IV PRN ×2 (01:31→23:57)
--- NOTE | 2020-07-30 02:00 | NUR ---
NURSE NOTES: Suction and oral care was done. NGT feeding tolerated well. On conveyor monitor with SR. Turn and reposition. Placed fall precaution. Will continue to care plan.
--- NOTE | 2020-07-30 04:00 | NUR ---
NURSE NOTES: Morning care was done. Cleaned Pt and applied lotion and cream. Noted BM. changed wound dressing. collected blood sample. No fever. Tolerated well with current Vent setting. V/S stable. Changed position. Will continue to monitor .
[2020-07-30 04:19] LABS: BASOPHILS % (AUTO) 2.2 % (0.0-2.0); HEMATOCRIT 29.1 % (42.0-52.0); LYMPHOCYTES % (AUTO) 21.7 % (20.0-45.0); MEAN CORPUSCULAR VOLUME 98 FL (80-99); MONOCYTES % (AUTO) 11.1 % (1.0-10.0); PLATELET COUNT 350 K/UL (150-450); RED BLOOD COUNT 2.96 M/UL (4.70-6.10); RED CELL DISTRIBUTION WIDTH 16.7 % (11.6-14.8); WHITE BLOOD COUNT 7.3 K/UL (4.8-10.8)
[2020-07-30 04:43] LABS: ALANINE AMINOTRANSFERASE 22 U/L (12-78); ALBUMIN 1.5 G/DL (3.4-5.0); ALBUMIN/GLOBULIN RATIO 0.3 (1.0-2.7); ALKALINE PHOSPHATASE 105 U/L (46-116); ANION GAP 8 mmol/L (5-15); ASPARTATE AMINO TRANSFERASE 19 U/L (15-37); BILIRUBIN,TOTAL 0.4 MG/DL (0.2-1.0); BLOOD UREA NITROGEN 10 mg/dL (7-18); CALCIUM 7.7 MG/DL (8.5-10.1); CARBON DIOXIDE 23 MMOL/L (21-32); CHLORIDE 108 MMOL/L (98-107); CREATININE 0.8 MG/DL (0.55-1.30); PHOSPHORUS 2.1 MG/DL (2.5-4.9); POTASSIUM 3.5 MMOL/L (3.5-5.1); SODIUM 139 MMOL/L (136-145)
[2020-07-30] MEDS: NovoLOG Insulin Flexpen SUBQ SCH ×4 (06:00→18:00)
--- NOTE | 2020-07-30 06:00 | NUR ---
NURSE NOTES: No sign of acute distress noted. Given suction and oral care. turn and reposition. will continue to monitor any change of condition.
--- NOTE | 2020-07-30 07:20 | NUR ---
NURSE HAND-OFF REPORT: Latest Vital Signs: Temperature 98.2 , Pulse 73 , B/P 99 /54 , Respiratory Rate 12 , O2 SAT 100 , Mechanical Ventilator, O2 Flow Rate . EKG Rhythm: Sinus Rhythm Rhythm change?: N Notified?: Grecia Rivera MD Response: Latest Gonzalez Fall Score: 50 Fall Risk: High Risk Safety Measures: Call light Within Reach, Bed Alarm Zone 2, Side Rails Side Rails x3, Bed position Low and Locked. Fall Precautions: Yellow Socks Yellow Gown Door Sign Patient Fall Education Report given to FLORES Card and FLORES Ramachandran. Pt is resting on the bed and no sign of acute distress noted. Tolerated well with NGT feeding.
--- NOTE | 2020-07-30 07:21 | NUR ---
NURSE NOTES: Received bedside report from FLORES Gallagher. Pt's VSS, no signs of distress noted. Pt sleeping but easily arousable, opens eyes and tracks but does not follow commands. Pt NSR on the cardiac nurse, HR in the 65-80. Pt intubated, ETT 7.5 at 25cm lip line with the following vent settings: A/C rate of 12, T/V 600, 30% FiO2, no peep, O2 sat 95-100%. Pt has NGT on right nare, placement checked, no residual noted, Glucerna 1.2 running at 50 cc/hr. Wiley catheter draining well, clear yellow urine noted. Skin alterations noted and documented in chart, covered with optifoam. Pt has JACQUIE PICC, no complications or bleeding noted from site. Pt on bilateral soft wrist restraints due to trying to pull lines and ETT, no injury noted from extremities. HOB at 30 degrees. Bed locked and in lowest position. Safety precautions in place. Will continue to monitor.
--- NOTE | 2020-07-30 07:51 | Infectious Diseases Prog Note ---
Assessment/Plan 79yo M with: Respiratory code 2ry to mucus plug 07/23 Septic Shock- -recurrent Fever, recurrent, low grade;SP Leukocytosis; recurrent; increased Acute hypoxic resp failure, on NRB mask> 4l NC; back on NRB, desaturation 07/09 > intubated 07/17 Pneumonia- >HAP Hx of COVID19 PNA 05/20/2007/28 CXR: No significant interval change in the radiographic appearance the chest compared to one day prior. 07/25 Resp cx +MRSA, nl resp bobby UCx neg BCx NTD 07/24 COVID PCR neg --07/21 CXR: Bilateral infiltrates in a peribronchovascular distribution are unchanged. Left pleural effusion is unchanged. --07/19 CXR: Persistent bilateral patchy pulmonary opacities, most prominent in the left lower lung. --07/18 ucx neg sp cx MRSA (colonizer at this point) Bcx Neg --07/13 Bcx Neg 07/10 Sp cx MRSA (Vancomycin APOLONIA 1), ESBL E.coli 07/03 BCx NTD UA - WBC, UCx Neg 07/03 COVID rapid neg; 07/06 rapid COVID PCR + (from prior infection)- not new infection Flu A/B neg CXR: L pna Resp cx MRSA MELANIE on CKD, improving SN[facility] resident (edchristal rosas) Non-verbal VRE and MRSA colonized Plan: Cont Zyvoz #7/ for MRSA coverage given mucus plug and worsening hemodynamics -07/27 SP meropenem #14 for ESBL pna -07/21 SP Micafungin #4 -07/17 SP IV Vancomycin #15 -07/13 SP Zosyn #4 -07/06 SP Cefepime # -07/04 SP Flagyl # Monitor CBC/CMP Monitor resp status Monitor temp curve and hemodynamics D/w RN Thank you for this consult. [facility] will continue to follow. Subjective Allergies: Coded Allergies: No Known Allergies (Unverified , 04/30/12) AF WBC 7.3 NAD on vent Objective Last 24 Hour Vital Signs Date Time Temp Pulse Resp B/P (MAP) Pulse Ox O2 Delivery O2 Flow Rate FiO2 07/30/20 07:45 73 12 30 07/30/20 07:00 73 12 99/54 (69) 100 07/30/20 06:30 74 13 07/30/20 06:30 73 13 100/54 (69) 100 07/30/20 06:00 74 13 101/63 (76) 100 07/30/20 05:00 77 16 112/54 (73) 100 07/30/20 04:00 98.2 76 14 120/60 (80) 100 07/30/20 04:00 Mechanical Ventilator Mechanical Ventilator 07/30/20 04:00 30 07/30/20 04:00 77 07/30/20 03:35 70 12 30 07/30/20 03:00 73 13 95/51 (66) 100 07/30/20 02:01 71 12 106/63 100 07/30/20 02:00 71 13 106/63 (77) 100 07/30/20 01:31 71 12 108/59 100 07/30/20 01:00 78 15 113/70 (84) 100 07/30/20 00:00 99.0 79 14 94/50 (65) 99 07/30/20 00:00 Mechanical Ventilator Mechanical Ventilator 07/30/20 00:00 78 07/30/20 00:00 30 07/29/20 23:00 79 15 99/54 (69) 100 07/29/20 22:56 82 12 30 07/29/20 22:00 83 19 116/61 (79) 100 07/29/20 21:00 77 12 117/59 (78) 100 07/29/20 20:00 98.7 76 12 108/62 (77) 100 07/29/20 20:00 77 07/29/20 20:00 30 07/29/20 20:00 Mechanical Ventilator Mechanical Ventilator 07/29/20 19:01 87 12 30 07/29/20 19:00 82 12 107/65 (79) 100 07/29/20 19:00 79 15 109/62 (78) 100 07/29/20 18:00 92 17 124/67 (86) 100 07/29/20 17:00 86 21 126/64 (84) 100 07/29/20 16:00 86 12 128/67 (87) 100 07/29/20 16:00 98.3 07/29/20 16:00 30 07/29/20 16:00 Mechanical Ventilator Mechanical Ventilator 07/29/20 16:00 90 07/29/20 15:15 87 16 30 07/29/20 15:00 90 16 146/76 (99) 100 07/29/20 14:00 81 13 113/67 (82) 100 07/29/20 13:00 98 22 136/73 (94) 100 07/29/20 12:00 30 07/29/20 12:00 Mechanical Ventilator Mechanical Ventilator 07/29/20 12:00 99.9 135 30 105/77 (86) 99 07/29/20 11:44 125 25 173/96 100 07/29/20 11:20 115 07/29/20 11:14 120 20 192/120 95 07/29/20 11:00 128 24 173/96 (121) 95 07/29/20 10:55 131 15 30 07/29/20 10:00 129 29 163/105 (124) 98 07/29/20 09:35 100 07/29/20 09:20 126 16 30 07/29/20 09:00 72 35 100/47 (64) 95 07/29/20 08:00 Mechanical Ventilator Mechanical Ventilator 07/29/20 08:00 97.9 07/29/20 08:00 83 33 100/47 (64) 93 07/29/20 08:00 30 07/29/20 08:00 70 Height (Feet): 5 Height (Inches): 4.00 Weight (Pounds): 130 Gen: NAD in bed HEENT: NCAT CV: RRR Pulm: BL chest rise on vent Abd: Soft, NTND Ext: No c/c/e Neuro: Eyes closed, not interactive Laboratory Tests Test 07/30/20 03:40 White Blood Count 7.3 K/UL (4.8-10.8) Red Blood Count 2.96 M/UL (4.70-6.10) L Hemoglobin 9.0 G/DL (14.2-18.0) L Hematocrit 29.1 % (42.0-52.0) L Mean Corpuscular Volume 98 FL (80-99) Mean Corpuscular Hemoglobin 30.2 PG (27.0-31.0) Mean Corpuscular Hemoglobin Concent 30.8 G/DL (32.0-36.0) L Red Cell Distribution Width 16.7 % (11.6-14.8) H Platelet Count 350 K/UL (150-450) Mean Platelet Volume 6.7 FL (6.5-10.1) Neutrophils (%) (Auto) 64.0 % (45.0-75.0) Lymphocytes (%) (Auto) 21.7 % (20.0-45.0) Monocytes (%) (Auto) 11.1 % (1.0-10.0) H Eosinophils (%) (Auto) 1.0 % (0.0-3.0) Basophils (%) (Auto) 2.2 % (0.0-2.0) H Sodium Level 139 MMOL/L (136-145) Potassium Level 3.5 MMOL/L (3.5-5.1) Chloride Level 108 MMOL/L (98-107) H Carbon Dioxide Level 23 MMOL/L (21-32) Anion Gap 8 mmol/L (5-15) Blood Urea Nitrogen 10 mg/dL (7-18) Creatinine 0.8 MG/DL (0.55-1.30) Estimat Glomerular Filtration Rate > 60 mL/min (>60) Glucose Level 104 MG/DL (74-106) Calcium Level 7.7 MG/DL (8.5-10.1) L Phosphorus Level 2.1 MG/DL (2.5-4.9) L Magnesium Level 2.2 MG/DL (1.8-2.4) Total Bilirubin 0.4 MG/DL (0.2-1.0) Aspartate Amino Transf (AST/SGOT) 19 U/L (15-37) Alanine Aminotransferase (ALT/SGPT) 22 U/L (12-78) Alkaline Phosphatase 105 U/L (46-116) Total Protein 6.0 G/DL (6.4-8.2) L Albumin 1.5 G/DL (3.4-5.0) L Globulin 4.5 g/dL Albumin/Globulin Ratio 0.3 (1.0-2.7) L Current Medications Medications (Trade) Dose Ordered Sig/Ankush Route PRN Reason Start Time Stop Time Status Last Admin Dose Admin Acetaminophen (Tylenol) 650 mg Q4H PRN ORAL Temp >100.5 07/03/20 20:30 08/02/20 20:29 07/27/20 13:01 Chlorhexidine Gluconate (Darcy-Hex 2%) 1 applic DAILY@1999 TOPIC 07/17/20 20:00 10/15/20 19:59 07/29/20 19:53 Dextrose (Dextrose 50%) 50 ml Q30M PRN IV Hypoglycemia 07/03/20 22:45 10/01/20 22:44 Heparin Sodium (Porcine) (Heparin 5000 units/ml) 5,000 units EVERY 12 HOURS SUBQ 07/03/20 21:00 08/17/20 20:59 07/29/20 20:35 Insulin Aspart (NovoLOG) EVERY 6 HOURS SUBQ 07/13/20 06:00 10/02/20 06:29 07/29/20 11:26 Linezolid 300 ml @ 300 mls/hr Q12HR IVPB 07/24/20 12:00 07/31/20 11:59 07/29/20 20:34 Lorazepam (Ativan 2mg/ml 1ml) 2 mg Q4H PRN IV For Anxiety 07/28/20 19:15 08/04/20 19:14 07/30/20 01:31 Midodrine (Pro-Amatine) 10 mg Q8H ORAL 07/22/20 17:00 10/20/20 16:59 07/30/20 00:45 Nitroglycerin (Ntg) 0.4 mg Q5M PRN SL Prn Chest Pain 07/03/20 20:30 08/02/20 20:29 Ondansetron HCl (Zofran) 4 mg Q6H PRN IVP Nausea & Vomiting 07/03/20 20:30 08/02/20 20:29 Pantoprazole (Protonix) 40 mg DAILY IV 07/18/20 09:00 08/17/20 08:59 07/29/20 08:50 Polyethylene Glycol (Miralax) 17 gm DAILYPRN PRN ORAL Constipation 07/03/20 20:30 08/02/20 20:29 Potassium Phosphate 20 mm/ Sodium Chloride 281.6667 ml @ 46.944 m... ONCE ONCE IV 07/30/20 08:00 07/30/20 13:59 UNV Promethazine HCl/ Codeine (Phenergan with Codeine) 5 ml Q4H PRN ORAL For Cough 07/03/20 20:30 08/02/20 20:29 Sodium Chloride 1,000 ml @ 50 mls/hr Q20H IV 11/6/20 16:00 08/16/20 15:59 07/29/20 23:21 Lorie Ramirez M.D. Jul 30, 2020 07:51
[2020-07-30] MEDS: Pantoprazole Inj IV SCH (08:38)
[2020-07-30] MEDS: Heparin 5000 units/ml inj SUBQ SCH ×2 (08:40→20:13)
[2020-07-30] MEDS ORDERED: Potassium Phosphate 20 MM in NS 275 ML IV ONE (09:00)
--- NOTE | 2020-07-30 09:20 | NUR ---
NURSE NOTES: Scheduled medications given per MD order, pt tolerated well. VSS, no signs of distress noted. Will continue to monitor.
--- NOTE | 2020-07-30 09:55 | NUR ---
RD ASSESSMENT & RECOMMENDATIONS SEE CARE ACTIVITY FOR COMPLETE ASSESSMENT DAILY ESTIMATED NEEDS: Needs based on DM, wound, critical care 59.5kg 22-28 kcals/kg 6695-9046 total kcals 1.25-2 g protein/kg 74-119 g total protein 25-30 mL/kg 4086-5785 total fluid mLs NUTRITION DIAGNOSIS: * Swallowing difficulty R/T dysphagia as evidenced by DIESEL ENGINE MECHANIC APPRENTICE fahad, recs for NGT feeds, now s/p oral intubation (07/17), s/p code blue (07/23) and remains intubated, on pressor support, currently held, cont on NGT feeds. * Increased kcal and pro needs r/t wound healing as evidenced by sacral pressure injury stage 2. CURRENT TF: (goal of Glucerna 1.2 @ 60ml/hr x24 hrs) ENTERAL NUTRITION RECOMMENDATIONS: Glucerna 1.2 @ 55ml/hr x24 hrs to provide 1320ml, 1584kcal, 79g prot, 1063ml free water - LOWER goal rate to 55ml/hr x 24 hrs s/p intubation w/ decreased kcal needs - HOB over 30 degrees/ H2O flush per MD ADDITIONAL RECOMMENDATIONS: * Calibrated bedscale wt for accurate CBW * Monitor hemodynamic stability: s/p code blue (07/23), NE currently held * Monitor lytes, replete as needed (Low phos, on repletion) * Wound care: add Sushil BID via PEG add Vit C 250mg QD . .
--- NOTE | 2020-07-30 10:00 | NUR ---
NURSE NOTES: MD Carreno and Shaka at bedside to assess pt, MDs updated regarding pt status. Pt's VS remain stable, will continue to monitor.
--- NOTE | 2020-07-30 10:25 | Pulmonolgy Critical Care Note ---
Critical Care - Asmt/Plan Problems: (1) Acute respiratory failure (2) Multifocal pneumonia (3) 2019 novel coronavirus disease (COVID-19) (4) Acute encephalopathy (5) Severe sepsis (6) Alzheimer's dementia (7) HTN (hypertension) (8) History of CVA (cerebrovascular accident) (9) BPH (benign prostatic hyperplasia) Respiratory: monitor respiratory rate, adjust FIO2, CXR Cardiac: continue pressors, continue to monitor HR/BP Renal: F/U I&O, keep IV fluid Infectious Disease: check cultures, continue antibiotics Gastrointestinal: continue feedings/current rate Endocrine: monitor blood sugar Hematologic: monitor H/H Neurologic: PRN Ativan, PRN Morphine Prophylaxis: Protonix, Heparin Time Spent (Minutes): 40 Notes Reviewed: consulting solution manager, cardio Discussed with: nurses, consultants, case packermanager leasing - Objective Last 24 Hour Vital Signs Date Time Temp Pulse Resp B/P (MAP) Pulse Ox O2 Delivery O2 Flow Rate FiO2 07/30/20 08:00 72 12 98/59 (72) 100 07/30/20 07:45 73 12 30 07/30/20 07:00 73 12 99/54 (69) 100 07/30/20 06:30 74 13 07/30/20 06:30 73 13 100/54 (69) 100 07/30/20 06:00 74 13 101/63 (76) 100 07/30/20 05:00 77 16 112/54 (73) 100 07/30/20 04:00 98.2 76 14 120/60 (80) 100 07/30/20 04:00 Mechanical Ventilator Mechanical Ventilator 07/30/20 04:00 30 07/30/20 04:00 77 07/30/20 03:35 70 12 30 07/30/20 03:00 73 13 95/51 (66) 100 07/30/20 02:01 71 12 106/63 100 07/30/20 02:00 71 13 106/63 (77) 100 07/30/20 01:31 71 12 108/59 100 07/30/20 01:00 78 15 113/70 (84) 100 07/30/20 00:00 99.0 79 14 94/50 (65) 99 07/30/20 00:00 Mechanical Ventilator Mechanical Ventilator 07/30/20 00:00 78 11/19/20 00:00 30 07/29/20 23:00 79 15 99/54 (69) 100 07/29/20 22:56 82 12 30 07/29/20 22:00 83 19 116/61 (79) 100 07/29/20 21:00 77 12 117/59 (78) 100 07/29/20 20:00 98.7 76 12 108/62 (77) 100 07/29/20 20:00 77 07/29/20 20:00 30 07/29/20 20:00 Mechanical Ventilator Mechanical Ventilator 07/29/20 19:01 87 12 30 07/29/20 19:00 82 12 107/65 (79) 100 07/29/20 19:00 79 15 109/62 (78) 100 07/29/20 18:00 92 17 124/67 (86) 100 07/29/20 17:00 86 21 126/64 (84) 100 07/29/20 16:00 86 12 128/67 (87) 100 07/29/20 16:00 98.3 07/29/20 16:00 30 07/29/20 16:00 Mechanical Ventilator Mechanical Ventilator 07/29/20 16:00 90 07/29/20 15:15 87 16 30 07/29/20 15:00 90 16 146/76 (99) 100 07/29/20 14:00 81 13 113/67 (82) 100 07/29/20 13:00 98 22 136/73 (94) 100 07/29/20 12:00 30 07/29/20 12:00 Mechanical Ventilator Mechanical Ventilator 07/29/20 12:00 99.9 135 30 105/77 (86) 99 07/29/20 11:44 125 25 173/96 100 07/29/20 11:20 115 07/29/20 11:14 120 20 192/120 95 07/29/20 11:00 128 24 173/96 (121) 95 07/29/20 10:55 131 15 30 Status: sedated Condition: critical Neck: full ROM Lungs: rales, rhonchi Objective: still large secretions, failed weaning Accucheck: 113 Critical Care - Subjective Interval Events: late note for 07/28 FI02: 30 Vent Support Breath Rate: 12 Vent Support Mode: AC Vent Tidal Volume: 600 Sputum Amount: Moderate PEEP: 0.0 PIP: 22 Tube Feeding Amount: 40 I&O: Intake and Output 07/29/20 07/30/20 19:00 07:00 Intake Total 1140 ml 1255 ml Output Total 1350 ml 875 ml Balance -210 ml 380 ml IV Total 900 ml 875 ml Tube Feeding 240 ml 380 ml Output Urine Total 1350 ml 875 ml # Bowel Movements 4 2 ET-Tube: 7.5 ET Position: 25 Kya Carreno MD Jul 30, 2020 10:25
--- NOTE | 2020-07-30 10:26 | Pulmonolgy Critical Care Note ---
Critical Care - Asmt/Plan Problems: (1) Acute respiratory failure (2) Multifocal pneumonia (3) 2019 novel coronavirus disease (COVID-19) (4) Acute encephalopathy (5) Severe sepsis (6) Alzheimer's dementia (7) HTN (hypertension) (8) History of CVA (cerebrovascular accident) (9) BPH (benign prostatic hyperplasia) Respiratory: monitor respiratory rate, adjust FIO2, CXR Cardiac: stop pressors, continue to monitor HR/BP Renal: keep IV fluid Infectious Disease: check cultures, continue antibiotics Gastrointestinal: continue feedings/current rate Endocrine: monitor blood sugar Affect: PRN ativan Prophylaxis: Protonix Notes Reviewed: religion department chair, cardio, renal Discussed with: nurses, consultants, community case managerconsulting services manager - Objective Last 24 Hour Vital Signs Date Time Temp Pulse Resp B/P (MAP) Pulse Ox O2 Delivery O2 Flow Rate FiO2 07/30/20 08:00 72 12 98/59 (72) 100 07/30/20 07:45 73 12 30 07/30/20 07:00 73 12 99/54 (69) 100 07/30/20 06:30 74 13 07/30/20 06:30 73 13 100/54 (69) 100 07/30/20 06:00 74 13 101/63 (76) 100 07/30/20 05:00 77 16 112/54 (73) 100 07/30/20 04:00 98.2 76 14 120/60 (80) 100 07/30/20 04:00 Mechanical Ventilator Mechanical Ventilator 07/30/20 04:00 30 07/30/20 04:00 77 07/30/20 03:35 70 12 30 07/30/20 03:00 73 13 95/51 (66) 100 07/30/20 02:01 71 12 106/63 100 07/30/20 02:00 71 13 106/63 (77) 100 07/30/20 01:31 71 12 108/59 100 07/30/20 01:00 78 15 113/70 (84) 100 07/30/20 00:00 99.0 79 14 94/50 (65) 99 07/30/20 00:00 Mechanical Ventilator Mechanical Ventilator 07/30/20 00:00 78 07/30/20 00:00 30 07/29/20 23:00 79 15 99/54 (69) 100 07/29/20 22:56 82 12 30 11/18/20 22:00 83 19 116/61 (79) 100 07/29/20 21:00 77 12 117/59 (78) 100 07/29/20 20:00 98.7 76 12 108/62 (77) 100 07/29/20 20:00 77 07/29/20 20:00 30 07/29/20 20:00 Mechanical Ventilator Mechanical Ventilator 07/29/20 19:01 87 12 30 07/29/20 19:00 82 12 107/65 (79) 100 07/29/20 19:00 79 15 109/62 (78) 100 07/29/20 18:00 92 17 124/67 (86) 100 07/29/20 17:00 86 21 126/64 (84) 100 07/29/20 16:00 86 12 128/67 (87) 100 07/29/20 16:00 98.3 07/29/20 16:00 30 07/29/20 16:00 Mechanical Ventilator Mechanical Ventilator 07/29/20 16:00 90 07/29/20 15:15 87 16 30 07/29/20 15:00 90 16 146/76 (99) 100 07/29/20 14:00 81 13 113/67 (82) 100 07/29/20 13:00 98 22 136/73 (94) 100 07/29/20 12:00 30 07/29/20 12:00 Mechanical Ventilator Mechanical Ventilator 07/29/20 12:00 99.9 135 30 105/77 (86) 99 07/29/20 11:44 125 25 173/96 100 07/29/20 11:20 115 07/29/20 11:14 120 20 192/120 95 07/29/20 11:00 128 24 173/96 (121) 95 07/29/20 10:55 131 15 30 Status: sedated Condition: improving HEENT: atraumatic Neck: full ROM Lungs: rales, rhonchi Heart: HR/BP stable Abdomen: soft Extremities: no C/C/E Objective: still large secretions, failed weaning Accucheck: 113 Critical Care - Subjective ROS Limited/Unobtainable: Yes Condition: critical EKG Rhythm: Sinus Rhythm FI02: 30 Vent Support Breath Rate: 12 Vent Support Mode: AC Vent Tidal Volume: 600 Sputum Amount: Moderate PEEP: 0.0 PIP: 22 Tube Feeding Amount: 40 I&O: Intake and Output 07/29/20 07/30/20 19:00 07:00 Intake Total 1140 ml 1255 ml Output Total 1350 ml 875 ml Balance -210 ml 380 ml IV Total 900 ml 875 ml Tube Feeding 240 ml 380 ml Output Urine Total 1350 ml 875 ml # Bowel Movements 4 2 CXR: no new infiltrate ET-Tube: 7.5 ET Position: 25 Labs: Laboratory Tests Test 07/30/20 03:40 07/30/20 08:00 White Blood Count 7.3 K/UL (4.8-10.8) Red Blood Count 2.96 M/UL (4.70-6.10) L Hemoglobin 9.0 G/DL (14.2-18.0) L Hematocrit 29.1 % (42.0-52.0) L Mean Corpuscular Volume 98 FL (80-99) Mean Corpuscular Hemoglobin 30.2 PG (27.0-31.0) Mean Corpuscular Hemoglobin Concent 30.8 G/DL (32.0-36.0) L Red Cell Distribution Width 16.7 % (11.6-14.8) H Platelet Count 350 K/UL (150-450) Mean Platelet Volume 6.7 FL (6.5-10.1) Neutrophils (%) (Auto) 64.0 % (45.0-75.0) Lymphocytes (%) (Auto) 21.7 % (20.0-45.0) Monocytes (%) (Auto) 11.1 % (1.0-10.0) H Eosinophils (%) (Auto) 1.0 % (0.0-3.0) Basophils (%) (Auto) 2.2 % (0.0-2.0) H Sodium Level 139 MMOL/L (136-145) Potassium Level 3.5 MMOL/L (3.5-5.1) Chloride Level 108 MMOL/L (98-107) H Carbon Dioxide Level 23 MMOL/L (21-32) Anion Gap 8 mmol/L (5-15) Blood Urea Nitrogen 10 mg/dL (7-18) Creatinine 0.8 MG/DL (0.55-1.30) Estimat Glomerular Filtration Rate > 60 mL/min (>60) Glucose Level 104 MG/DL (74-106) Calcium Level 7.7 MG/DL (8.5-10.1) L Phosphorus Level 2.1 MG/DL (2.5-4.9) L Magnesium Level 2.2 MG/DL (1.8-2.4) Total Bilirubin 0.4 MG/DL (0.2-1.0) Aspartate Amino Transf (AST/SGOT) 19 U/L (15-37) Alanine Aminotransferase (ALT/SGPT) 22 U/L (12-78) Alkaline Phosphatase 105 U/L (46-116) Total Protein 6.0 G/DL (6.4-8.2) L Albumin 1.5 G/DL (3.4-5.0) L Globulin 4.5 g/dL Albumin/Globulin Ratio 0.3 (1.0-2.7) L Arterial Blood pH 7.508 (7.350-7.450) Arterial Blood Partial Pressure CO2 24.8 mmHg (35.0-45.0) *L Arterial Blood Partial Pressure O2 76.7 mmHg (75.0-100.0) Arterial Blood HCO3 19.3 mmol/L (22.0-26.0) L Arterial Blood Oxygen Saturation 95.7 % (95-100) Arterial Blood Base Excess -2.7 (-2-2) L Richard Test Positive Kya Carreno MD Jul 30, 2020 10:26
--- NOTE | 2020-07-30 11:06 | Nephrology Progress Note ---
Assessment/Plan Problem List: (1) Dehydration (2) MELANIE (acute kidney injury) (3) Renal failure (ARF), acute on chronic (4) Hypoxia (5) Acute encephalopathy (6) Electrolyte imbalance Assessment 79-year-old male is admitted with acute hypoxic respiratory failure most likely secondary to pneumonia and sepsis, UTI. Acute on chronic renal failure Dehydration Electrolyte imbalances, hypernatremia Hypoalbuminemia Diabetes type 2 History of congestive heart failure Hypertension Hyperlipemia Alzheimer's Previous COVID-19 infection in May 2020 Plan July 30: Remains intubated. Remains full code. Labs reviewed. Low phosphorus replaced. Continue to monitor renal parameters. Continue per consultants. July 29: Failed weaning. Remains intubated. Remains full closed. Labs reviewed. Stable from renal standpoint view. July 28: Remains in ICU. Remains full code. Labs are reviewed. Phosphorus supplement given. Continue per consultants. July 27: Remains in ICU. Full code. Labs reviewed. Remains intubated. Stable renal parameters. July 26: In ICU. Full code. Discussed with RN. Stable renal parameters. July 25: Seen in ICU. Discussed with FLORES Holliday. Flomax discontinued. Labs reviewed. Stable from renal standpoint of view. July 24: Seen in ICU. Discussed with FLORES Holliday. Remains on pressor. Electrolyte abnormalities noted and addressed. Continue per consultants. Patient remains full code. July 23: Seen in ICU. Discussed with FLORES Barrera. Blood pressure remains a little requiring pressors. Labs reviewed. Stable renal parameters. Continue per consultants. July 22: Remains intubated. Full code. Blood pressure borderline low. Will increase midodrine dose. Discussed with RN. Continue to monitor renal parameters and electrolytes. July 21: Intubated. Full code. Labs reviewed. Stable from renal standpoint of view. Continue per consultants. July 20: Remains intubated. Full code. Labs reviewed. Electrolytes within normal limit. Continue per consultants. July 19: In ICU. Remains intubated on ventilator. Remains full code. Low potassium addressed. Blood pressure fluctuating. Continue per consultants. July 18: Patient in ICU. Intubated on ventilator. On 6 mics of Levophed. Will give 100 cc albumin 25%. K-Phos IV ordered. Continue per consultants. Continue monitor renal parameters and electrolytes. July 17: Status unchanged. Transfer to [facility] for seizure. Stable from renal standpoint to view. Continue per consultants. July 16: Status quo. Labs reviewed. Renal parameters stable. Continue per consultants. July 15: On nonrebreather mask. Labs reviewed. Renal parameters stable.Continue per shipping coordinator. Clinically unchanged. July 14: On nonrebreather mask. Inflammatory markers gradually declining. Renal parameters stable. Continue per pulmonary. July 13: Remains on nonrebreather mask. Inflammatory markers remain elevated. Renal parameters somewhat stable. Continue per pulmonary and ID. Remains full code. July 12: Patient on nonrebreather mask. Labs noted. Serum creatinine down to 1.3. Continue per consultants. July 11: Patient on nonrebreather mask. Transfer to telemetry when seen this morning. Labs noted. Continue per consultants. Serum creatinine erin to 1.7. Continue to monitor renal parameters. Continue to monitor vancomycin level July 10: Patient is not doing well clinically. Mild respiratory distress. ABG noted. Somewhat hypoxic. CBC and chemistry panel ordered. Discussed with FLORES Cho. Will defer to pulmonary management to specialist. Continue per ID. Renal parameters remained stable as of July 09. July 09: Labs reviewed. Renal parameters stable. Continue per consultants. July 08: Labs reviewed. Potassium via NG tube ordered. IV fluids stopped. Continue per consultants. July 07: Labs reviewed. Low potassium and low phosphorus replaced. Continue per consultants. Remains stable from renal standpoint of view. July 06: Patient remains n.p.o. IV fluid down to 50 cc an hour. Potassium supplement intravenously ordered. Continue per consultants. Previously: Patient is n.p.o., will continue on IV fluid of D5W 75 cc an hour We will monitor electrolytes and renal parameters Avoid nephrotoxic's Start p.o. when he clears by speech therapist, meanwhile aspiration precautions Keep the blood pressure and blood sugar in check Per orders Subjective ROS Limited/Unobtainable: Yes Objective Objective Last 24 Hour Vital Signs Date Time Temp Pulse Resp B/P (MAP) Pulse Ox O2 Delivery O2 Flow Rate FiO2 07/30/20 08:00 72 12 98/59 (72) 100 07/30/20 07:45 73 12 30 07/30/20 07:00 73 12 99/54 (69) 100 07/30/20 06:30 74 13 07/30/20 06:30 73 13 100/54 (69) 100 07/30/20 06:00 74 13 101/63 (76) 100 07/30/20 05:00 77 16 112/54 (73) 100 07/30/20 04:00 98.2 76 14 120/60 (80) 100 07/30/20 04:00 Mechanical Ventilator Mechanical Ventilator 07/30/20 04:00 30 07/30/20 04:00 77 07/30/20 03:35 70 12 30 07/30/20 03:00 73 13 95/51 (66) 100 07/30/20 02:01 71 12 106/63 100 07/30/20 02:00 71 13 106/63 (77) 100 07/30/20 01:31 71 12 108/59 100 07/30/20 01:00 78 15 113/70 (84) 100 07/30/20 00:00 99.0 79 14 94/50 (65) 99 07/30/20 00:00 Mechanical Ventilator Mechanical Ventilator 07/30/20 00:00 78 07/30/20 00:00 30 07/29/20 23:00 79 15 99/54 (69) 100 07/29/20 22:56 82 12 30 07/29/20 22:00 83 19 116/61 (79) 100 07/29/20 21:00 77 12 117/59 (78) 100 07/29/20 20:00 98.7 76 12 108/62 (77) 100 07/29/20 20:00 77 07/29/20 20:00 30 07/29/20 20:00 Mechanical Ventilator Mechanical Ventilator 07/29/20 19:01 87 12 30 07/29/20 19:00 82 12 107/65 (79) 100 07/29/20 19:00 79 15 109/62 (78) 100 07/29/20 18:00 92 17 124/67 (86) 100 07/29/20 17:00 86 21 126/64 (84) 100 07/29/20 16:00 86 12 128/67 (87) 100 07/29/20 16:00 98.3 07/29/20 16:00 30 07/29/20 16:00 Mechanical Ventilator Mechanical Ventilator 07/29/20 16:00 90 07/29/20 15:15 87 16 30 07/29/20 15:00 90 16 146/76 (99) 100 07/29/20 14:00 81 13 113/67 (82) 100 07/29/20 13:00 98 22 136/73 (94) 100 07/29/20 12:00 30 07/29/20 12:00 Mechanical Ventilator Mechanical Ventilator 07/29/20 12:00 99.9 135 30 105/77 (86) 99 07/29/20 11:44 125 25 173/96 100 07/29/20 11:20 115 07/29/20 11:14 120 20 192/120 95 Intake and Output 07/29/20 07/30/20 19:00 07:00 Intake Total 1140 ml 1255 ml Output Total 1350 ml 875 ml Balance -210 ml 380 ml IV Total 900 ml 875 ml Tube Feeding 240 ml 380 ml Output Urine Total 1350 ml 875 ml # Bowel Movements 4 2 Current Medications Medications (Trade) Dose Ordered Sig/Ankush Route PRN Reason Start Time Stop Time Status Last Admin Dose Admin Acetaminophen (Tylenol) 650 mg Q4H PRN ORAL Temp >100.5 07/03/20 20:30 08/02/20 20:29 07/27/20 13:01 Chlorhexidine Gluconate (Darcy-Hex 2%) 1 applic DAILY@2000 TOPIC 07/17/20 20:00 10/15/20 19:59 07/29/20 19:53 Dextrose (Dextrose 50%) 50 ml Q30M PRN IV Hypoglycemia 07/03/20 22:45 10/01/20 22:44 Heparin Sodium (Porcine) (Heparin 5000 units/ml) 5,000 units EVERY 12 HOURS SUBQ 07/03/20 21:00 08/17/20 20:59 07/30/20 08:40 Insulin Aspart (NovoLOG) EVERY 6 HOURS SUBQ 07/13/20 06:00 10/02/20 06:29 07/29/20 11:26 Linezolid 300 ml @ 300 mls/hr Q12HR IVPB 07/24/20 12:00 07/31/20 11:59 07/30/20 08:39 Lorazepam (Ativan 2mg/ml 1ml) 2 mg Q4H PRN IV For Anxiety 07/28/20 19:15 08/04/20 19:14 07/30/20 01:31 Midodrine (Pro-Amatine) 10 mg Q8H ORAL 07/22/20 17:00 10/20/20 16:59 07/30/20 08:38 Nitroglycerin (Ntg) 0.4 mg Q5M PRN SL Prn Chest Pain 07/03/20 20:30 08/02/20 20:29 Ondansetron HCl (Zofran) 4 mg Q6H PRN IVP Nausea & Vomiting 07/03/20 20:30 08/02/20 20:29 Pantoprazole (Protonix) 40 mg DAILY IV 07/18/20 09:00 08/17/20 08:59 07/30/20 08:38 Polyethylene Glycol (Miralax) 17 gm DAILYPRN PRN ORAL Constipation 07/03/20 20:30 08/02/20 20:29 Potassium Phosphate 20 mm/ Sodium Chloride 281.6667 ml @ 46.944 m... ONCE ONCE IV 07/30/20 09:00 07/30/20 14:59 07/30/20 09:38 Promethazine HCl/ Codeine (Phenergan with Codeine) 5 ml Q4H PRN ORAL For Cough 07/03/20 20:30 08/02/20 20:29 Sodium Chloride 1,000 ml @ 50 mls/hr Q20H IV 07/17/20 16:00 08/16/20 15:59 07/29/20 23:21 Laboratory Tests 07/30/20 03:40: White Blood Count 7.3, Red Blood Count 2.96L, Hemoglobin 9.0L, Hematocrit 29.1L, Mean Corpuscular Volume 98, Mean Corpuscular Hemoglobin 30.2, Mean Corpuscular Hemoglobin Concent 30.8L, Red Cell Distribution Width 16.7H, Platelet Count 350, Mean Platelet Volume 6.7, Neutrophils (%) (Auto) 64.0, Lymphocytes (%) (Auto) 21.7, Monocytes (%) (Auto) 11.1H, Eosinophils (%) (Auto) 1.0, Basophils (%) (Auto) 2.2H, Sodium Level 139, Potassium Level 3.5, Chloride Level 108H, Carbon Dioxide Level 23, Anion Gap 8, Blood Urea Nitrogen 10, Creatinine 0.8, Estimat Glomerular Filtration Rate > 60, Glucose Level 104, Calcium Level 7.7L, Phosphorus Level 2.1L, Magnesium Level 2.2, Total Bilirubin 0.4, Aspartate Amino Transf (AST/SGOT) 19, Alanine Aminotransferase (ALT/SGPT) 22, Alkaline Phosphatase 105, Total Protein 6.0L, Albumin 1.5L, Globulin 4.5, Albumin/Globulin Ratio 0.3L 07/30/20 08:00: Arterial Blood pH 7.508H, Arterial Blood Partial Pressure CO2 24.8*L, Arterial Blood Partial Pressure O2 76.7, Arterial Blood HCO3 19.3L, Arterial Blood Oxygen Saturation 95.7, Arterial Blood Base Excess -2.7L, Richard Test Positive Height (Feet): 5 Height (Inches): 4.00 Weight (Pounds): 130 General Appearance: no apparent distress Cardiovascular: normal rate Respiratory/Chest: decreased breath sounds Abdomen: soft Tino Connors MD Jul 30, 2020 11:05
--- NOTE | 2020-07-30 12:00 | NUR ---
NURSE NOTES: Novolog not given due to pt's BG is 126, no insulin coverage needed per MD order. Pt repositioned again, VSS, afebrile, no signs of distress noted. Will continue to monitor.
--- NOTE | 2020-07-30 13:04 | NUR ---
RADIOLOGY DEPT, CHEST X-RAY DONE.-P.DYE
--- NOTE | 2020-07-30 14:10 | Internal Med Progress Note ---
Subjective Physician Name Ahsan Hodges Attending Physician Ahsan Hodges MD Current Medications Medications (Trade) Dose Ordered Sig/Ankush Route PRN Reason Start Time Stop Time Status Last Admin Dose Admin Acetaminophen (Tylenol) 650 mg Q4H PRN ORAL Temp >100.5 07/03/20 20:30 08/02/20 20:29 07/27/20 13:01 Chlorhexidine Gluconate (Darcy-Hex 2%) 1 applic DAILY@2000 TOPIC 07/17/20 20:00 10/15/20 19:59 07/29/20 19:53 Dextrose (Dextrose 50%) 50 ml Q30M PRN IV Hypoglycemia 07/03/20 22:45 10/01/20 22:44 Heparin Sodium (Porcine) (Heparin 5000 units/ml) 5,000 units EVERY 12 HOURS SUBQ 07/03/20 21:00 08/17/20 20:59 07/30/20 08:40 Insulin Aspart (NovoLOG) EVERY 6 HOURS SUBQ 07/13/20 06:00 10/02/20 06:29 07/29/20 11:26 Linezolid 300 ml @ 300 mls/hr Q12HR IVPB 07/24/20 12:00 07/31/20 11:59 07/30/20 08:39 Lorazepam (Ativan 2mg/ml 1ml) 2 mg Q4H PRN IV For Anxiety 07/28/20 19:15 08/04/20 19:14 07/30/20 01:31 Midodrine (Pro-Amatine) 10 mg Q8H ORAL 07/22/20 17:00 10/20/20 16:59 07/30/20 08:38 Nitroglycerin (Ntg) 0.4 mg Q5M PRN SL Prn Chest Pain 07/03/20 20:30 08/02/20 20:29 Ondansetron HCl (Zofran) 4 mg Q6H PRN IVP Nausea & Vomiting 07/03/20 20:30 08/02/20 20:29 Pantoprazole (Protonix) 40 mg DAILY IV 07/18/20 09:00 08/17/20 08:59 07/30/20 08:38 Polyethylene Glycol (Miralax) 17 gm DAILYPRN PRN ORAL Constipation 07/03/20 20:30 11/22/20 20:29 Potassium Phosphate 20 mm/ Sodium Chloride 281.6667 ml @ 46.944 m... ONCE ONCE IV 07/30/20 09:00 07/30/20 14:59 07/30/20 09:38 Promethazine HCl/ Codeine (Phenergan with Codeine) 5 ml Q4H PRN ORAL For Cough 07/03/20 20:30 08/02/20 20:29 Sodium Chloride 1,000 ml @ 50 mls/hr Q20H IV 07/17/20 16:00 08/16/20 15:59 07/29/20 23:21 Allergies: Coded Allergies: No Known Allergies (Unverified , 04/30/12) Subjective In ICU Isolation room, More responsive, cannot follow command, Intubated on Ventilation, less of secretion, WBC:7.3 , Objective Last Vital Signs Date Time Temp Pulse Resp B/P (MAP) Pulse Ox O2 Delivery O2 Flow Rate FiO2 07/30/20 13:15 30 07/30/20 13:00 74 22 97/48 (64) 100 07/30/20 12:00 96.8 07/30/20 12:00 Mechanical Ventilator Mechanical Ventilator Laboratory Tests Test 07/30/20 03:40 07/30/20 08:00 07/30/20 14:04 White Blood Count 7.3 K/UL (4.8-10.8) Red Blood Count 2.96 M/UL (4.70-6.10) L Hemoglobin 9.0 G/DL (14.2-18.0) L Hematocrit 29.1 % (42.0-52.0) L Mean Corpuscular Volume 98 FL (80-99) Mean Corpuscular Hemoglobin 30.2 PG (27.0-31.0) Mean Corpuscular Hemoglobin Concent 30.8 G/DL (32.0-36.0) L Red Cell Distribution Width 16.7 % (11.6-14.8) H Platelet Count 350 K/UL (150-450) Mean Platelet Volume 6.7 FL (6.5-10.1) Neutrophils (%) (Auto) 64.0 % (45.0-75.0) Lymphocytes (%) (Auto) 21.7 % (20.0-45.0) Monocytes (%) (Auto) 11.1 % (1.0-10.0) H Eosinophils (%) (Auto) 1.0 % (0.0-3.0) Basophils (%) (Auto) 2.2 % (0.0-2.0) H Sodium Level 139 MMOL/L (136-145) Potassium Level 3.5 MMOL/L (3.5-5.1) Chloride Level 108 MMOL/L (98-107) H Carbon Dioxide Level 23 MMOL/L (21-32) Anion Gap 8 mmol/L (5-15) Blood Urea Nitrogen 10 mg/dL (7-18) Creatinine 0.8 MG/DL (0.55-1.30) Estimat Glomerular Filtration Rate > 60 mL/min (>60) Glucose Level 104 MG/DL (74-106) Calcium Level 7.7 MG/DL (8.5-10.1) L Phosphorus Level 2.1 MG/DL (2.5-4.9) L Magnesium Level 2.2 MG/DL (1.8-2.4) Total Bilirubin 0.4 MG/DL (0.2-1.0) Aspartate Amino Transf (AST/SGOT) 19 U/L (15-37) Alanine Aminotransferase (ALT/SGPT) 22 U/L (12-78) Alkaline Phosphatase 105 U/L (46-116) Total Protein 6.0 G/DL (6.4-8.2) L Albumin 1.5 G/DL (3.4-5.0) L Globulin 4.5 g/dL Albumin/Globulin Ratio 0.3 (1.0-2.7) L Arterial Blood pH 7.508 (7.350-7.450) Pending Arterial Blood Partial Pressure CO2 24.8 mmHg (35.0-45.0) *L Pending Arterial Blood Partial Pressure O2 76.7 mmHg (75.0-100.0) Pending Arterial Blood HCO3 19.3 mmol/L (22.0-26.0) L Pending Arterial Blood Oxygen Saturation 95.7 % (95-100) Pending Arterial Blood Base Excess -2.7 (-2-2) L Pending Richard Test Positive Pending Intake and Output 07/29/20 07/30/20 19:00 07:00 Intake Total 1140 ml 1255 ml Output Total 1350 ml 875 ml Balance -210 ml 380 ml IV Total 900 ml 875 ml Tube Feeding 240 ml 380 ml Output Urine Total 1350 ml 875 ml # Bowel Movements 4 2 Objective GENERAL: More responsive with open eyes, intubated, chronically ill-appearing. HEAD AND NECK: Pupils are equal and reactive to light. Anicteric. ET tube, NGT. NECK: Supple. No JVD. LUNGS: Mechanical breath sound, Decreased air in bases, Coarse breath sound. HEART: S1, S2. Regular rhythm. Distant heart sounds. No murmur or gallop. ABDOMEN: Soft, nondistended, nontender. Positive bowel sounds. EXTREMITIES: No cyanosis, clubbing, or edema. NEUROLOGIC: Very limited secondary to the patient's status, cannot follow commands. Assessment/Plan Assessment/Plan 1. Acute hypoxemic respiratory failure, most likely secondary to pneumonia and sepsis --> Intubated (07/17/2020). 2. Septic shock secondary to urinary tract infection and pneumonia. 3. pneumonia=MRSA 4. Acute kidney injury on chronic renal insufficiency. 5. Dehydration. 6. History of chronic congestive heart failure. 7. Diabetes type 2. 8. Dyslipidemia. 9. Hypertension. 10. Alzheimer's disease. 11. COVID 19 previous positive PLAN: 1. in ICU 2. Dr. Carreno,=Pulmonary Critical Care 3. Dr. Ramirez = infection disease 4. Monitor labs and cultures 5. antibiotics = Zyvox 6. Code status is full code. 7. DVT prophylaxis is heparin subcutaneous. 8. Resume Tube feeding @ 60 cc/hr, 9. Off Levophed and on Midodrine 10 tid Ahsan Hodges MD Jul 30, 2020 14:10
--- NOTE | 2020-07-30 14:35 | NUR ---
RESPIRATORY NOTE: Weaning started at 1305. Placed on PS +8 PEEP +5 FIO2 30%. Patient currently tolerating well RSBI 42, SPONT RR 24, SPONT VT , HR 100, SPO2 98%. Will continue to monitor and draw ABG in 1 hour. Addendum: 07/30/20 at 1439 by VILLA DYE RT SPONT VT 463 ABG DRAWN @ 1405
--- NOTE | 2020-07-30 14:50 | NUR ---
NURSE NOTES: Pt passed weaning trial, O2 sat remained 95-100%. Pt is now back on A/C rate of 12, T/V 600, 30% FiO2. O2 sat still 95-100%. Resting well, chest rise and fall visibly noted, VSS, no signs of distress noted. Will continue to monitor.
[2020-07-30] MEDS ORDERED: NS 275ml ONE (15:04)
[2020-07-30] MEDS ORDERED: 1/2 NS 1000ml IV ONE (15:04)
--- NOTE | 2020-07-30 16:12 | NUR ---
NURSE NOTES: Pt repositioned again, bed bath and oral care provided, linens changed. VS remain stable, no signs of distress noted. Will continue to monitor.
--- NOTE | 2020-07-30 17:18 | Cardiac Electrophysiology PN ---
Assessment/Plan Assessment/Plan 1. Accelerated junctional rhythm. Ruled out for MD Echo showed ejection fraction of 55%. 2. Long run of 31 beats of Nonsustained VT on 07/14/2020. Cardiac cath after stabilization. 3. Jose 30, Asystole while on the Vent due to resp failure/ likely mucus plug . S/P Code 4. Respiratory failure, on antibiotic and intubated on the vent Failed weaning. Family refused trach 5. Septic shock. Off Levophed and on Midodrine 10 tid 6. History of previous COVID infection in May 2020 and active Covid in isolation Now negative again 7. Dementia. SHAYY RN Subjective Subjective In ICU on the Vent Fio2 30%, PEEP 5 Had 31 beats of VT on 07/14/20 at 16:46 and 5 beats 07/19/20 Coded on 07/23/20 as sat dropped to 20% and got jose 30s and PEA and pulseless Off Levophed on Midodrine 10 tid Covid test was negative. Failed weaning. Family refusing trach Objective Last 24 Hour Vital Signs Date Time Temp Pulse Resp B/P (MAP) Pulse Ox O2 Delivery O2 Flow Rate FiO2 07/30/20 17:00 67 12 93/52 (66) 100 07/30/20 16:00 65 12 111/58 (75) 100 07/30/20 16:00 Mechanical Ventilator Mechanical Ventilator 07/30/20 15:36 67 07/30/20 15:15 71 16 30 07/30/20 15:00 71 21 96/52 (67) 100 07/30/20 14:15 30 07/30/20 14:00 71 13 105/56 (72) 100 07/30/20 13:15 30 07/30/20 13:05 100 07/30/20 13:00 74 22 97/48 (64) 100 07/30/20 12:00 30 07/30/20 12:00 30 07/30/20 12:00 96.8 71 25 95/56 (69) 100 07/30/20 12:00 72 07/30/20 12:00 Mechanical Ventilator Mechanical Ventilator 07/30/20 11:00 74 12 99/52 (68) 100 07/30/20 10:40 70 15 30 07/30/20 10:00 68 12 103/55 (71) 100 07/30/20 09:00 65 13 104/56 (72) 100 07/30/20 08:00 98.2 07/30/20 08:00 72 12 98/59 (72) 100 07/30/20 08:00 30 07/30/20 08:00 Mechanical Ventilator Mechanical Ventilator 07/30/20 07:45 73 12 30 07/30/20 07:43 69 07/30/20 07:00 73 12 99/54 (69) 100 07/30/20 06:30 74 13 07/30/20 06:30 73 13 100/54 (69) 100 07/30/20 06:00 74 13 101/63 (76) 100 07/30/20 05:00 77 16 112/54 (73) 100 07/30/20 04:00 98.2 76 14 120/60 (80) 100 07/30/20 04:00 Mechanical Ventilator Mechanical Ventilator 07/30/20 04:00 30 07/30/20 04:00 77 07/30/20 03:35 70 12 30 07/30/20 03:00 73 13 95/51 (66) 100 07/30/20 02:01 71 12 106/63 100 07/30/20 02:00 71 13 106/63 (77) 100 07/30/20 01:31 71 12 108/59 100 07/30/20 01:00 78 15 113/70 (84) 100 07/30/20 00:00 99.0 79 14 94/50 (65) 99 07/30/20 00:00 Mechanical Ventilator Mechanical Ventilator 07/30/20 00:00 78 07/30/20 00:00 30 07/29/20 23:00 79 15 99/54 (69) 100 07/29/20 22:56 82 12 30 07/29/20 22:00 83 19 116/61 (79) 100 07/29/20 21:00 77 12 117/59 (78) 100 07/29/20 20:00 98.7 76 12 108/62 (77) 100 07/29/20 20:00 77 07/29/20 20:00 30 07/29/20 20:00 Mechanical Ventilator Mechanical Ventilator 07/29/20 19:01 87 12 30 07/29/20 19:00 82 12 107/65 (79) 100 07/29/20 19:00 79 15 109/62 (78) 100 07/29/20 18:00 92 17 124/67 (86) 100 Intake and Output 07/29/20 07/30/20 19:00 07:00 Intake Total 1140 ml 1255 ml Output Total 1350 ml 875 ml Balance -210 ml 380 ml IV Total 900 ml 875 ml Tube Feeding 240 ml 380 ml Output Urine Total 1350 ml 875 ml # Bowel Movements 4 2 Laboratory Tests Test 07/30/20 03:40 07/30/20 08:00 07/30/20 14:04 White Blood Count 7.3 K/UL (4.8-10.8) Red Blood Count 2.96 M/UL (4.70-6.10) L Hemoglobin 9.0 G/DL (14.2-18.0) L Hematocrit 29.1 % (42.0-52.0) L Mean Corpuscular Volume 98 FL (80-99) Mean Corpuscular Hemoglobin 30.2 PG (27.0-31.0) Mean Corpuscular Hemoglobin Concent 30.8 G/DL (32.0-36.0) L Red Cell Distribution Width 16.7 % (11.6-14.8) H Platelet Count 350 K/UL (150-450) Mean Platelet Volume 6.7 FL (6.5-10.1) Neutrophils (%) (Auto) 64.0 % (45.0-75.0) Lymphocytes (%) (Auto) 21.7 % (20.0-45.0) Monocytes (%) (Auto) 11.1 % (1.0-10.0) H Eosinophils (%) (Auto) 1.0 % (0.0-3.0) Basophils (%) (Auto) 2.2 % (0.0-2.0) H Sodium Level 139 MMOL/L (136-145) Potassium Level 3.5 MMOL/L (3.5-5.1) Chloride Level 108 MMOL/L (98-107) H Carbon Dioxide Level 23 MMOL/L (21-32) Anion Gap 8 mmol/L (5-15) Blood Urea Nitrogen 10 mg/dL (7-18) Creatinine 0.8 MG/DL (0.55-1.30) Estimat Glomerular Filtration Rate > 60 mL/min (>60) Glucose Level 104 MG/DL (74-106) Calcium Level 7.7 MG/DL (8.5-10.1) L Phosphorus Level 2.1 MG/DL (2.5-4.9) L Magnesium Level 2.2 MG/DL (1.8-2.4) Total Bilirubin 0.4 MG/DL (0.2-1.0) Aspartate Amino Transf (AST/SGOT) 19 U/L (15-37) Alanine Aminotransferase (ALT/SGPT) 22 U/L (12-78) Alkaline Phosphatase 105 U/L (46-116) Total Protein 6.0 G/DL (6.4-8.2) L Albumin 1.5 G/DL (3.4-5.0) L Globulin 4.5 g/dL Albumin/Globulin Ratio 0.3 (1.0-2.7) L Arterial Blood pH 7.508 (7.350-7.450) 7.465 (7.350-7.450) Arterial Blood Partial Pressure CO2 24.8 mmHg (35.0-45.0) *L 31.4 mmHg (35.0-45.0) L Arterial Blood Partial Pressure O2 76.7 mmHg (75.0-100.0) 80.1 mmHg (75.0-100.0) Arterial Blood HCO3 19.3 mmol/L (22.0-26.0) L 22.1 mmol/L (22.0-26.0) Arterial Blood Oxygen Saturation 95.7 % (95-100) 95.7 % (95-100) Arterial Blood Base Excess -2.7 (-2-2) L -1.1 (-2-2) Richard Test Positive Positive Objective HEAD AND NECK: No JVD. Orally intubated LUNGS: Coarse rhonchi. CARDIOVASCULAR: Irregular S1 and S2 with no gallop. ABDOMEN: Soft. EXTREMITIES: No pitting edema. Klever Matt MD Jul 30, 2020 17:18
--- NOTE | 2020-07-30 18:00 | NUR ---
NURSE NOTES: Scheduled medications given per MD order, pt tolerated well. Pt's VSS, no signs of distress noted. Pt repositioned, linens changed. Will continue to monitor pt.
--- NOTE | 2020-07-30 19:05 | NUR ---
NURSE HAND-OFF REPORT: Latest Vital Signs: Temperature 99.4 , Pulse 67 , B/P 121 /69 , Respiratory Rate 16 , O2 SAT 100 , Mechanical Ventilator, O2 Flow Rate . Vital Sign Comment: EKG Rhythm: Sinus Rhythm Rhythm change?: N MD Notified?: MD Response: Latest Gonzalez Fall Score: 50 Fall Risk: High Risk Safety Measures: Call light Within Reach, Bed Alarm Zone 2, Side Rails Side Rails x3, Bed position Low and Locked. Fall Precautions: Yellow Socks Yellow Gown Door Sign Patient Fall Education Report given to FLORES Clayton for continuity of care. Pt stable.
--- NOTE | 2020-07-30 19:06 | NUR ---
NURSE NOTES: Received patient from FLORES Ramachandran. Will continue plan of care.
--- NOTE | 2020-07-30 20:00 | NUR ---
NURSE NOTES: Patient is awake and alert. Intubated; ETT 7.5 @ 25cm to the left lipline to vent settings AC:12, TV:600, FiO2:30%, O2sat:100%. NGT in place and running feeding of Glucerna 1.2 @ 60ml/hr. Right upper arm PICC running NS @ 50ml/hr. QUALITY ASSURANCE ANALYST restraints in place; ROM and skin assessed. Safety measures in place; bed low, locked and alarm is on. Will continue plan of care.
[2020-07-30] MEDS: Dyna-Hex 2% Top Sol 2oz TOPIC SCH (20:13)
--- NOTE | 2020-07-30 22:00 | NUR ---
NURSE NOTES: No changes in condition. Repositioned.
[2020-07-31] VITALS (24 sets, daily range): BP systolic 99–150; BP diastolic 49–90
--- NOTE | 2020-07-31 | NUR ---
NURSE NOTES: Patient became agitated and trying to move out of bed. SBP 171. Ativan PRN given. Partial bed bath given due to BM. Repositioned.
[2020-07-31] MEDS: Midodrine 10mg tab ORAL SCH ×3 (00:50→17:37)
--- NOTE | 2020-07-31 02:00 | NUR ---
NURSE NOTES: Patient is resting comfortably. No changes.
--- NOTE | 2020-07-31 04:00 | NUR ---
NURSE NOTES: Complete bed bath given, linens changes, turned and repositioned. IV lines updated. oral care and suctioning provided.
[2020-07-31 05:31] LABS: BASOPHILS % (AUTO) 1.2 % (0.0-2.0); EOSINOPHILS % (AUTO) 0.7 % (0.0-3.0); HEMATOCRIT 30.7 % (42.0-52.0); HEMOGLOBIN 9.5 G/DL (14.2-18.0); LYMPHOCYTES % (AUTO) 13.1 % (20.0-45.0); MEAN CORPUSCULAR VOLUME 98 FL (80-99); MONOCYTES % (AUTO) 8.8 % (1.0-10.0); NEUTROPHILS % (AUTO) 76.2 % (45.0-75.0); PLATELET COUNT 365 K/UL (150-450); RED BLOOD COUNT 3.15 M/UL (4.70-6.10); RED CELL DISTRIBUTION WIDTH 17.3 % (11.6-14.8)
[2020-07-31] MEDS: NovoLOG Insulin Flexpen SUBQ SCH ×4 (05:50→17:37)
[2020-07-31 05:57] LABS: ALANINE AMINOTRANSFERASE 19 U/L (12-78); ALBUMIN 1.6 G/DL (3.4-5.0); ALBUMIN/GLOBULIN RATIO 0.3 (1.0-2.7); ALKALINE PHOSPHATASE 109 U/L (46-116); ANION GAP 8 mmol/L (5-15); ASPARTATE AMINO TRANSFERASE 16 U/L (15-37); BILIRUBIN,TOTAL 0.3 MG/DL (0.2-1.0); BLOOD UREA NITROGEN 14 mg/dL (7-18); CALCIUM 7.8 MG/DL (8.5-10.1); CARBON DIOXIDE 24 MMOL/L (21-32); CHLORIDE 108 MMOL/L (98-107); CREATININE 0.9 MG/DL (0.55-1.30); PHOSPHORUS 2.9 MG/DL (2.5-4.9); SODIUM 140 MMOL/L (136-145)
--- NOTE | 2020-07-31 06:00 | NUR ---
NURSE NOTES: Patient repositioned. BP:121/61, HR:70. no changes in condition, no agitation.
--- NOTE | 2020-07-31 07:21 | NUR ---
NURSE HAND-OFF REPORT: Latest Vital Signs: Temperature 99.4 , Pulse 77 , B/P 142 /67 , Respiratory Rate 11 , O2 SAT 100 , Mechanical Ventilator, O2 Flow Rate . Vital Sign Comment: Stable EKG Rhythm: Sinus Rhythm Rhythm change?: N Notified?: Grecia Rivera MD Response: Latest Gonzalez Fall Score: 50 Fall Risk: High Risk Safety Measures: Call light Within Reach, Bed Alarm Zone 2, Side Rails Side Rails x3, Bed position Low and Locked. Fall Precautions: Yellow Socks Yellow Gown Door Sign Patient Fall Education Report given to .
--- NOTE | 2020-07-31 07:30 | NUR ---
NURSE NOTES: Report received from FLORES Clayton. Patient observed laying in bed, opening eyes spontaneously, however, not tracking. Intubated; ETT 7.5, 25cm at the lipline to vent settings AC:12, TV:600, FiO2:30%, O2sat:100%. NGT in place and running feeding of Glucerna 1.2 @ 60ml/hr. Right upper arm PICC running NS @ 50ml/hr. Wiley intact and draining to urometer. RETAIL PRESENTATION SPECIALIST restraints in place; pulses, ROM and skin assessed. Skin issues acknowledged; dressings clean dry and intact. Safety measures in place; bed low, locked and alarm is on. Will continue plan of care.
--- NOTE | 2020-07-31 08:06 | Infectious Diseases Prog Note ---
Assessment/Plan 79yo M with: Respiratory code 2ry to mucus plug 07/23 Septic Shock- -recurrent Fever, recurrent, low grade;SP Leukocytosis; recurrent; increased Acute hypoxic resp failure, on NRB mask> 4l NC; back on NRB, desaturation 07/09 > intubated 07/17 Pneumonia- >HAP Hx of COVID19 PNA 05/20/2007/28 CXR: No significant interval change in the radiographic appearance the chest compared to one day prior. 07/25 Resp cx +MRSA, nl resp bobby UCx neg BCx NTD 07/24 COVID PCR neg --07/21 CXR: Bilateral infiltrates in a peribronchovascular distribution are unchanged. Left pleural effusion is unchanged. --07/19 CXR: Persistent bilateral patchy pulmonary opacities, most prominent in the left lower lung. --07/18 ucx neg sp cx MRSA (colonizer at this point) Bcx Neg --07/13 Bcx Neg 07/10 Sp cx MRSA (Vancomycin APOLONIA 1), ESBL E.coli 07/03 BCx NTD UA - WBC, UCx Neg 07/03 COVID rapid neg; 07/06 rapid COVID PCR + (from prior infection)- not new infection Flu A/B neg CXR: L pna Resp cx MRSA MELANIE on CKD, improving SNF resident (edchristal rosas) Non-verbal VRE and MRSA colonized Plan: Stop Zyvoz #/ for MRSA coverage given mucus plug and worsening hemodynamics -07/27 SP meropenem #14 for ESBL pna -07/21 SP Micafungin #4 -07/17 SP IV Vancomycin #15 -07/13 SP Zosyn #4 -07/06 SP Cefepime # -07/04 SP Flagyl # Monitor CBC/CMP Monitor resp status Monitor temp curve and hemodynamics D/w RN Thank you for this consult. [facility] will continue to follow. Subjective Allergies: Coded Allergies: No Known Allergies (Unverified , 04/30/12) AF WBC 10 NAD on vent 30% PEEP 5 Objective Last 24 Hour Vital Signs Date Time Temp Pulse Resp B/P (MAP) Pulse Ox O2 Delivery O2 Flow Rate FiO2 07/31/20 07:00 77 11 142/67 (92) 100 07/31/20 06:30 70 12 07/31/20 06:00 80 13 121/61 (81) 100 07/31/20 05:13 79 13 30 07/31/20 05:00 80 12 116/90 (99) 100 07/31/20 04:00 30 07/31/20 04:00 Mechanical Ventilator Mechanical Ventilator 07/31/20 04:00 99.4 80 18 118/68 (85) 100 07/31/20 03:23 80 13 30 07/31/20 03:02 76 07/31/20 03:00 94 18 149/68 (95) 100 07/31/20 02:00 81 12 99/57 (71) 100 07/31/20 01:21 81 15 30 07/31/20 01:00 90 12 127/71 (89) 100 07/31/20 00:27 88 20 135/73 100 07/31/20 00:00 Mechanical Ventilator Mechanical Ventilator 07/31/20 00:00 30 07/31/20 00:00 98.5 85 19 135/73 (93) 99 07/30/20 23:57 97 20 171/91 100 07/30/20 23:15 84 19 171/91 (117) 100 07/30/20 23:13 87 07/30/20 23:00 81 19 174/96 (122) 100 07/30/20 22:59 78 17 30 07/30/20 22:00 70 17 131/65 (87) 100 07/30/20 21:00 68 13 110/58 (75) 100 07/30/20 20:39 64 12 30 07/30/20 20:00 98.8 72 15 114/61 (78) 100 07/30/20 20:00 30 07/30/20 20:00 Mechanical Ventilator Mechanical Ventilator 07/30/20 19:18 66 12 30 07/30/20 19:16 65 07/30/20 19:00 67 16 121/69 (86) 100 07/30/20 18:00 63 12 116/61 (79) 100 07/30/20 17:15 65 17 30 07/30/20 17:00 67 12 93/52 (66) 100 07/30/20 16:00 99.4 07/30/20 16:00 65 12 111/58 (75) 100 07/30/20 16:00 30 07/30/20 16:00 Mechanical Ventilator Mechanical Ventilator 07/30/20 15:36 67 07/30/20 15:15 71 16 30 07/30/20 15:00 71 21 96/52 (67) 100 07/30/20 14:15 30 07/30/20 14:00 71 13 105/56 (72) 100 07/30/20 13:15 30 07/30/20 13:05 100 07/30/20 13:00 74 22 97/48 (64) 100 07/30/20 12:00 30 07/30/20 12:00 30 07/30/20 12:00 96.8 71 25 95/56 (69) 100 07/30/20 12:00 72 07/30/20 12:00 Mechanical Ventilator Mechanical Ventilator 07/30/20 11:00 74 12 99/52 (68) 100 07/30/20 10:40 70 15 30 07/30/20 10:00 68 12 103/55 (71) 100 07/30/20 09:00 65 13 104/56 (72) 100 Height (Feet): 5 Height (Inches): 4.00 Weight (Pounds): 130 Gen: NAD in bed HEENT: NCAT CV: RRR Pulm: BL chest rise on vent Abd: Soft, NTND Ext: No c/c/e Neuro: Eyes closed, not interactive Laboratory Tests Test 07/30/20 14:04 07/31/20 00:16 07/31/20 05:00 07/31/20 05:44 Arterial Blood pH 7.465 (7.350-7.450) Arterial Blood Partial Pressure CO2 31.4 mmHg (35.0-45.0) L Arterial Blood Partial Pressure O2 80.1 mmHg (75.0-100.0) Arterial Blood HCO3 22.1 mmol/L (22.0-26.0) Arterial Blood Oxygen Saturation 95.7 % (95-100) Arterial Blood Base Excess -1.1 (-2-2) Richard Test Positive POC Whole Blood Glucose Pending Pending White Blood Count 10.0 K/UL (4.8-10.8) Red Blood Count 3.15 M/UL (4.70-6.10) L Hemoglobin 9.5 G/DL (14.2-18.0) L Hematocrit 30.7 % (42.0-52.0) L Mean Corpuscular Volume 98 FL (80-99) Mean Corpuscular Hemoglobin 30.3 PG (27.0-31.0) Mean Corpuscular Hemoglobin Concent 31.0 G/DL (32.0-36.0) L Red Cell Distribution Width 17.3 % (11.6-14.8) H Platelet Count 365 K/UL (150-450) Mean Platelet Volume 6.5 FL (6.5-10.1) Neutrophils (%) (Auto) 76.2 % (45.0-75.0) H Lymphocytes (%) (Auto) 13.1 % (20.0-45.0) L Monocytes (%) (Auto) 8.8 % (1.0-10.0) Eosinophils (%) (Auto) 0.7 % (0.0-3.0) Basophils (%) (Auto) 1.2 % (0.0-2.0) Sodium Level 140 MMOL/L (136-145) Potassium Level 4.0 MMOL/L (3.5-5.1) Chloride Level 108 MMOL/L (98-107) H Carbon Dioxide Level 24 MMOL/L (21-32) Anion Gap 8 mmol/L (5-15) Blood Urea Nitrogen 14 mg/dL (7-18) Creatinine 0.9 MG/DL (0.55-1.30) Estimat Glomerular Filtration Rate > 60 mL/min (>60) Glucose Level 121 MG/DL (74-106) H Calcium Level 7.8 MG/DL (8.5-10.1) L Phosphorus Level 2.9 MG/DL (2.5-4.9) Magnesium Level 2.2 MG/DL (1.8-2.4) Total Bilirubin 0.3 MG/DL (0.2-1.0) Aspartate Amino Transf (AST/SGOT) 16 U/L (15-37) Alanine Aminotransferase (ALT/SGPT) 19 U/L (12-78) Alkaline Phosphatase 109 U/L (46-116) Total Protein 6.3 G/DL (6.4-8.2) L Albumin 1.6 G/DL (3.4-5.0) L Globulin 4.7 g/dL Albumin/Globulin Ratio 0.3 (1.0-2.7) L Test 07/31/20 07:08 Arterial Blood pH 7.466 (7.350-7.450) Arterial Blood Partial Pressure CO2 31.8 mmHg (35.0-45.0) L Arterial Blood Partial Pressure O2 92.9 mmHg (75.0-100.0) Arterial Blood HCO3 22.4 mmol/L (22.0-26.0) Arterial Blood Oxygen Saturation 97.0 % (95-100) Arterial Blood Base Excess -0.8 (-2-2) Richard Test Positive Current Medications Medications (Trade) Dose Ordered Sig/Ankush Route PRN Reason Start Time Stop Time Status Last Admin Dose Admin Acetaminophen (Tylenol) 650 mg Q4H PRN ORAL Temp >100.5 07/03/20 20:30 08/02/20 20:29 07/27/20 13:01 Chlorhexidine Gluconate (Darcy-Hex 2%) 1 applic DAILY@2000 TOPIC 07/17/20 20:00 10/15/20 19:59 07/30/20 20:13 Dextrose (Dextrose 50%) 50 ml Q30M PRN IV Hypoglycemia 07/03/20 22:45 10/01/20 22:44 Heparin Sodium (Porcine) (Heparin 5000 units/ml) 5,000 units EVERY 12 HOURS SUBQ 07/03/20 21:00 08/17/20 20:59 07/30/20 20:13 Insulin Aspart (NovoLOG) EVERY 6 HOURS SUBQ 07/13/20 06:00 10/02/20 06:29 07/29/20 11:26 Linezolid 300 ml @ 300 mls/hr Q12HR IVPB 07/24/20 12:00 07/31/20 11:59 07/30/20 20:13 Lorazepam (Ativan 2mg/ml 1ml) 2 mg Q4H PRN IV For Anxiety 07/28/20 19:15 08/04/20 19:14 07/30/20 23:57 Midodrine (Pro-Amatine) 10 mg Q8H ORAL 07/22/20 17:00 10/20/20 16:59 07/31/20 00:50 Nitroglycerin (Ntg) 0.4 mg Q5M PRN SL Prn Chest Pain 07/03/20 20:30 08/02/20 20:29 Ondansetron HCl (Zofran) 4 mg Q6H PRN IVP Nausea & Vomiting 07/03/20 20:30 08/02/20 20:29 Pantoprazole (Protonix) 40 mg DAILY IV 07/18/20 09:00 08/17/20 08:59 07/30/20 08:38 Polyethylene Glycol (Miralax) 17 gm DAILYPRN PRN ORAL Constipation 07/03/20 20:30 08/02/20 20:29 Promethazine HCl/ Codeine (Phenergan with Codeine) 5 ml Q4H PRN ORAL For Cough 07/03/20 20:30 08/02/20 20:29 Sodium Chloride 1,000 ml @ 50 mls/hr Q20H IV 07/17/20 16:00 08/16/20 15:59 07/31/20 04:00 Lorie Ramirez M.D. Jul 31, 2020 08:06
[2020-07-31] MEDS: Pantoprazole Inj IV SCH (09:05)
[2020-07-31] MEDS: Heparin 5000 units/ml inj SUBQ SCH ×2 (09:06→21:11)
--- NOTE | 2020-07-31 09:35 | NUR ---
NURSE NOTES: Tube feeding held and Pt started to wean at this time. CPAP PS 8.
[2020-07-31] MEDS ORDERED: NS 275ml ONE (09:36)
[2020-07-31] MEDS ORDERED: 1/2 NS 1000ml IV ONE (09:36)
--- NOTE | 2020-07-31 10:10 | NUR ---
NURSE NOTES: Pt tolerating weaning. O2sat 100%, HR 75
--- NOTE | 2020-07-31 10:16 | Pulmonolgy Critical Care Note ---
Critical Care - Asmt/Plan Problems: (1) Acute respiratory failure (2) Multifocal pneumonia (3) 2019 novel coronavirus disease (COVID-19) (4) Acute encephalopathy (5) Severe sepsis (6) Alzheimer's dementia (7) HTN (hypertension) (8) History of CVA (cerebrovascular accident) (9) BPH (benign prostatic hyperplasia) Respiratory: monitor respiratory rate, adjust FIO2, CXR Cardiac: continue to monitor HR/BP Renal: F/U I&O, keep IV fluid, check electrolytes Infectious Disease: check cultures, continue antibiotics Gastrointestinal: continue feedings/current rate Endocrine: monitor blood sugar Hematologic: monitor H/H Neurologic: PRN Ativan, PRN Morphine Affect: PRN ativan Time Spent (Minutes): 40 Notes Reviewed: paper ruler, cardio, renal Discussed with: nurses, consultants, correctional casework specialistvault manager - Objective Last 24 Hour Vital Signs Date Time Temp Pulse Resp B/P (MAP) Pulse Ox O2 Delivery O2 Flow Rate FiO2 07/31/20 09:35 30 07/31/20 09:00 74 16 119/65 (83) 100 07/31/20 08:00 99.4 75 16 115/60 (78) 100 07/31/20 08:00 Mechanical Ventilator Mechanical Ventilator 07/31/20 08:00 30 07/31/20 07:05 74 12 30 07/31/20 07:00 77 11 142/67 (92) 100 07/31/20 06:30 70 12 07/31/20 06:00 80 13 121/61 (81) 100 07/31/20 05:13 79 13 30 07/31/20 05:00 80 12 116/90 (99) 100 07/31/20 04:00 30 07/31/20 04:00 Mechanical Ventilator Mechanical Ventilator 07/31/20 04:00 99.4 80 18 118/68 (85) 100 07/31/20 03:23 80 13 30 07/31/20 03:02 76 07/31/20 03:00 94 18 149/68 (95) 100 07/31/20 02:00 81 12 99/57 (71) 100 07/31/20 01:21 81 15 30 07/31/20 01:00 90 12 127/71 (89) 100 07/31/20 00:27 88 20 135/73 100 07/31/20 00:00 Mechanical Ventilator Mechanical Ventilator 07/31/20 00:00 30 07/31/20 00:00 98.5 85 19 135/73 (93) 99 07/30/20 23:57 97 20 171/91 100 07/30/20 23:15 84 19 171/91 (117) 100 07/30/20 23:13 87 07/30/20 23:00 81 19 174/96 (122) 100 07/30/20 22:59 78 17 30 07/30/20 22:00 70 17 131/65 (87) 100 07/30/20 21:00 68 13 110/58 (75) 100 07/30/20 20:39 64 12 30 07/30/20 20:00 98.8 72 15 114/61 (78) 100 07/30/20 20:00 30 07/30/20 20:00 Mechanical Ventilator Mechanical Ventilator 07/30/20 19:18 66 12 30 07/30/20 19:16 65 07/30/20 19:00 67 16 121/69 (86) 100 07/30/20 18:00 63 12 116/61 (79) 100 07/30/20 17:15 65 17 30 07/30/20 17:00 67 12 93/52 (66) 100 07/30/20 16:00 99.4 07/30/20 16:00 65 12 111/58 (75) 100 07/30/20 16:00 30 07/30/20 16:00 Mechanical Ventilator Mechanical Ventilator 07/30/20 15:36 67 07/30/20 15:15 71 16 30 07/30/20 15:00 71 21 96/52 (67) 100 07/30/20 14:15 30 07/30/20 14:00 71 13 105/56 (72) 100 07/30/20 13:15 30 07/30/20 13:05 100 07/30/20 13:00 74 22 97/48 (64) 100 07/30/20 12:00 30 07/30/20 12:00 30 07/30/20 12:00 96.8 71 25 95/56 (69) 100 07/30/20 12:00 72 07/30/20 12:00 Mechanical Ventilator Mechanical Ventilator 07/30/20 11:00 74 12 99/52 (68) 100 07/30/20 10:40 70 15 30 Status: awake, sedated Condition: critical HEENT: atraumatic Neck: full ROM Lungs: clear Heart: HR/BP stable Abdomen: soft, active bowel sounds Extremities: no C/C/E Objective: still large secretions, failed weaning Accucheck: 118 Critical Care - Subjective ROS Limited/Unobtainable: Yes Interval Events: didn't tolerate weaning Condition: critical FI02: 30 Vent Support Breath Rate: 12 Vent Support Mode: CPAP Vent Tidal Volume: 600 Sputum Amount: Moderate PEEP: 0.0 PIP: 18 Tube Feeding Amount: 60 I&O: Intake and Output 07/30/20 07/31/20 19:00 07:00 Intake Total 1720.832 ml 1220 ml Output Total 950 ml 1320 ml Balance 770.832 ml -100 ml IV Total 1040.832 ml 500 ml Tube Feeding 680 ml 720 ml Output Urine Total 950 ml 1320 ml # Bowel Movements 4 2 ET-Tube: 7.5 ET Position: 25 Labs: Laboratory Tests Test 07/30/20 14:04 07/31/20 00:16 07/31/20 05:00 07/31/20 05:44 Arterial Blood pH 7.465 (7.350-7.450) Arterial Blood Partial Pressure CO2 31.4 mmHg (35.0-45.0) L Arterial Blood Partial Pressure O2 80.1 mmHg (75.0-100.0) Arterial Blood HCO3 22.1 mmol/L (22.0-26.0) Arterial Blood Oxygen Saturation 95.7 % (95-100) Arterial Blood Base Excess -1.1 (-2-2) Richard Test Positive POC Whole Blood Glucose Pending Pending White Blood Count 10.0 K/UL (4.8-10.8) Red Blood Count 3.15 M/UL (4.70-6.10) L Hemoglobin 9.5 G/DL (14.2-18.0) L Hematocrit 30.7 % (42.0-52.0) L Mean Corpuscular Volume 98 FL (80-99) Mean Corpuscular Hemoglobin 30.3 PG (27.0-31.0) Mean Corpuscular Hemoglobin Concent 31.0 G/DL (32.0-36.0) L Red Cell Distribution Width 17.3 % (11.6-14.8) H Platelet Count 365 K/UL (150-450) Mean Platelet Volume 6.5 FL (6.5-10.1) Neutrophils (%) (Auto) 76.2 % (45.0-75.0) H Lymphocytes (%) (Auto) 13.1 % (20.0-45.0) L Monocytes (%) (Auto) 8.8 % (1.0-10.0) Eosinophils (%) (Auto) 0.7 % (0.0-3.0) Basophils (%) (Auto) 1.2 % (0.0-2.0) Sodium Level 140 MMOL/L (136-145) Potassium Level 4.0 MMOL/L (3.5-5.1) Chloride Level 108 MMOL/L (98-107) H Carbon Dioxide Level 24 MMOL/L (21-32) Anion Gap 8 mmol/L (5-15) Blood Urea Nitrogen 14 mg/dL (7-18) Creatinine 0.9 MG/DL (0.55-1.30) Estimat Glomerular Filtration Rate > 60 mL/min (>60) Glucose Level 121 MG/DL (74-106) H Calcium Level 7.8 MG/DL (8.5-10.1) L Phosphorus Level 2.9 MG/DL (2.5-4.9) Magnesium Level 2.2 MG/DL (1.8-2.4) Total Bilirubin 0.3 MG/DL (0.2-1.0) Aspartate Amino Transf (AST/SGOT) 16 U/L (15-37) Alanine Aminotransferase (ALT/SGPT) 19 U/L (12-78) Alkaline Phosphatase 109 U/L (46-116) Total Protein 6.3 G/DL (6.4-8.2) L Albumin 1.6 G/DL (3.4-5.0) L Globulin 4.7 g/dL Albumin/Globulin Ratio 0.3 (1.0-2.7) L Test 07/31/20 07:08 Arterial Blood pH 7.466 (7.350-7.450) Arterial Blood Partial Pressure CO2 31.8 mmHg (35.0-45.0) L Arterial Blood Partial Pressure O2 92.9 mmHg (75.0-100.0) Arterial Blood HCO3 22.4 mmol/L (22.0-26.0) Arterial Blood Oxygen Saturation 97.0 % (95-100) Arterial Blood Base Excess -0.8 (-2-2) Richard Test Positive Kya Carreno MD Jul 31, 2020 10:16
--- NOTE | 2020-07-31 10:45 | NUR ---
NURSE NOTES: Pt seen by Dr Matt. Updated him on pt's current condition. No new orders given at this time.
--- NOTE | 2020-07-31 10:57 | NUR ---
NURSE NOTES: RT obtained ABG while pt continues to wean.
--- NOTE | 2020-07-31 11:18 | NUR ---
NURSE NOTES: Dr Connors at bedside assessing pt. Updated him on pt's current condition. No new orders given at this time.
--- NOTE | 2020-07-31 13:00 | NUR ---
NURSE NOTES: BS 107. No Novolog given as per sliding scale. Pt turned and repositioned. Pt still on CPAP PS 8. Tolerating well. No distress noted
--- NOTE | 2020-07-31 13:09 | Internal Med Progress Note ---
Subjective Physician Name Ahsan Hodges Attending Physician Ahsan Hodges MD Current Medications Medications (Trade) Dose Ordered Sig/Ankush Route PRN Reason Start Time Stop Time Status Last Admin Dose Admin Acetaminophen (Tylenol) 650 mg Q4H PRN ORAL Temp >100.5 07/03/20 20:30 08/02/20 20:29 07/27/20 13:01 Chlorhexidine Gluconate (Darcy-Hex 2%) 1 applic DAILY@2000 TOPIC 07/17/20 20:00 10/15/20 19:59 07/30/20 20:13 Dextrose (Dextrose 50%) 50 ml Q30M PRN IV Hypoglycemia 07/03/20 22:45 10/01/20 22:44 Heparin Sodium (Porcine) (Heparin 5000 units/ml) 5,000 units EVERY 12 HOURS SUBQ 07/03/20 21:00 08/17/20 20:59 07/31/20 09:06 Insulin Aspart (NovoLOG) EVERY 6 HOURS SUBQ 07/13/20 06:00 10/02/20 06:29 07/29/20 11:26 Linezolid 300 ml @ 300 mls/hr Q12HR IVPB 07/24/20 12:00 07/31/20 23:59 07/31/20 09:05 Lorazepam (Ativan 2mg/ml 1ml) 2 mg Q4H PRN IV For Anxiety 07/28/20 19:15 08/04/20 19:14 07/30/20 23:57 Midodrine (Pro-Amatine) 10 mg Q8H ORAL 07/22/20 17:00 10/20/20 16:59 07/31/20 09:05 Nitroglycerin (Ntg) 0.4 mg Q5M PRN SL Prn Chest Pain 07/03/20 20:30 08/02/20 20:29 Ondansetron HCl (Zofran) 4 mg Q6H PRN IVP Nausea & Vomiting 07/03/20 20:30 08/02/20 20:29 Pantoprazole (Protonix) 40 mg DAILY IV 07/18/20 09:00 08/17/20 08:59 07/31/20 09:05 Polyethylene Glycol (Miralax) 17 gm DAILYPRN PRN ORAL Constipation 07/03/20 20:30 08/02/20 20:29 Promethazine HCl/ Codeine (Phenergan with Codeine) 5 ml Q4H PRN ORAL For Cough 07/03/20 20:30 08/02/20 20:29 Sodium Chloride 1,000 ml @ 50 mls/hr Q20H IV 07/17/20 16:00 08/16/20 15:59 07/31/20 04:00 Allergies: Coded Allergies: No Known Allergies (Unverified , 04/30/12) Subjective In ICU Isolation room, More responsive, cannot follow command, Intubated on Ventilation, minimal secretion, WBC: 10.0, weaning trial , Objective Last Vital Signs Date Time Temp Pulse Resp B/P (MAP) Pulse Ox O2 Delivery O2 Flow Rate FiO2 07/31/20 12:00 Mechanical Ventilator Mechanical Ventilator 07/31/20 12:00 30 07/31/20 12:00 99.4 67 26 132/63 (86) 100 Laboratory Tests Test 07/30/20 14:04 07/31/20 00:16 07/31/20 05:00 07/31/20 05:44 Arterial Blood pH 7.465 (7.350-7.450) Arterial Blood Partial Pressure CO2 31.4 mmHg (35.0-45.0) L Arterial Blood Partial Pressure O2 80.1 mmHg (75.0-100.0) Arterial Blood HCO3 22.1 mmol/L (22.0-26.0) Arterial Blood Oxygen Saturation 95.7 % (95-100) Arterial Blood Base Excess -1.1 (-2-2) Richard Test Positive POC Whole Blood Glucose Pending Pending White Blood Count 10.0 K/UL (4.8-10.8) Red Blood Count 3.15 M/UL (4.70-6.10) L Hemoglobin 9.5 G/DL (14.2-18.0) L Hematocrit 30.7 % (42.0-52.0) L Mean Corpuscular Volume 98 FL (80-99) Mean Corpuscular Hemoglobin 30.3 PG (27.0-31.0) Mean Corpuscular Hemoglobin Concent 31.0 G/DL (32.0-36.0) L Red Cell Distribution Width 17.3 % (11.6-14.8) H Platelet Count 365 K/UL (150-450) Mean Platelet Volume 6.5 FL (6.5-10.1) Neutrophils (%) (Auto) 76.2 % (45.0-75.0) H Lymphocytes (%) (Auto) 13.1 % (20.0-45.0) L Monocytes (%) (Auto) 8.8 % (1.0-10.0) Eosinophils (%) (Auto) 0.7 % (0.0-3.0) Basophils (%) (Auto) 1.2 % (0.0-2.0) Sodium Level 140 MMOL/L (136-145) Potassium Level 4.0 MMOL/L (3.5-5.1) Chloride Level 108 MMOL/L (98-107) H Carbon Dioxide Level 24 MMOL/L (21-32) Anion Gap 8 mmol/L (5-15) Blood Urea Nitrogen 14 mg/dL (7-18) Creatinine 0.9 MG/DL (0.55-1.30) Estimat Glomerular Filtration Rate > 60 mL/min (>60) Glucose Level 121 MG/DL (74-106) H Calcium Level 7.8 MG/DL (8.5-10.1) L Phosphorus Level 2.9 MG/DL (2.5-4.9) Magnesium Level 2.2 MG/DL (1.8-2.4) Total Bilirubin 0.3 MG/DL (0.2-1.0) Aspartate Amino Transf (AST/SGOT) 16 U/L (15-37) Alanine Aminotransferase (ALT/SGPT) 19 U/L (12-78) Alkaline Phosphatase 109 U/L (46-116) Total Protein 6.3 G/DL (6.4-8.2) L Albumin 1.6 G/DL (3.4-5.0) L Globulin 4.7 g/dL Albumin/Globulin Ratio 0.3 (1.0-2.7) L Test 07/31/20 07:08 07/31/20 10:48 Arterial Blood pH 7.466 (7.350-7.450) 7.470 (7.350-7.450) Arterial Blood Partial Pressure CO2 31.8 mmHg (35.0-45.0) L 31.8 mmHg (35.0-45.0) L Arterial Blood Partial Pressure O2 92.9 mmHg (75.0-100.0) 84.7 mmHg (75.0-100.0) Arterial Blood HCO3 22.4 mmol/L (22.0-26.0) 22.6 mmol/L (22.0-26.0) Arterial Blood Oxygen Saturation 97.0 % (95-100) 96.3 % (95-100) Arterial Blood Base Excess -0.8 (-2-2) -0.5 (-2-2) Richard Test Positive Positive Intake and Output 07/30/20 07/31/20 19:00 07:00 Intake Total 1720.832 ml 1220 ml Output Total 950 ml 1320 ml Balance 770.832 ml -100 ml IV Total 1040.832 ml 500 ml Tube Feeding 680 ml 720 ml Output Urine Total 950 ml 1320 ml # Bowel Movements 4 2 Objective GENERAL: More responsive with open eyes, intubated, chronically ill-appearing. HEAD AND NECK: Pupils are equal and reactive to light. Anicteric. ET tube, NGT. NECK: Supple. No JVD. LUNGS: Mechanical breath sound, Decreased air in bases, Coarse breath sound. HEART: S1, S2. Regular rhythm. Distant heart sounds. No murmur or gallop. ABDOMEN: Soft, nondistended, nontender. Positive bowel sounds. EXTREMITIES: No cyanosis, clubbing, or edema. NEUROLOGIC: Very limited secondary to the patient's status, cannot follow commands. Assessment/Plan Assessment/Plan 1. Acute hypoxemic respiratory failure, most likely secondary to pneumonia and sepsis --> Intubated (07/17/2020). 2. Septic shock secondary to urinary tract infection and pneumonia. 3. pneumonia=MRSA 4. Acute kidney injury on chronic renal insufficiency. 5. Dehydration. 6. History of chronic congestive heart failure. 7. Diabetes type 2. 8. Dyslipidemia. 9. Hypertension. 10. Alzheimer's disease. 11. COVID 19 previous positive PLAN: 1. in ICU 2. Dr. Carreno,=Pulmonary Critical Care 3. Dr. Ramirez = infection disease 4. Monitor labs and cultures 5. antibiotics = DC Zyvox today. 6. Code status is full code. 7. DVT prophylaxis is heparin subcutaneous. 8. Resume Tube feeding @ 60 cc/hr, 9. Off Levophed and on Midodrine 10 tid 10. Weaning Trial Ahsan Hodges MD Jul 31, 2020 13:09
--- NOTE | 2020-07-31 13:12 | Cardiac Electrophysiology PN ---
Assessment/Plan Assessment/Plan 1. Accelerated junctional rhythm. Ruled out for DC Echo showed ejection fraction of 55%. 2. Long run of 31 beats of Nonsustained VT on 07/14/2020. Cardiac cath after stabilization. 3. Jose 30, Asystole while on the Vent due to resp failure/ likely mucus plug . S/P Code 4. Respiratory failure, on antibiotic and intubated on the vent Failed weaning. Family refused tracheostomy 5. Septic shock. Off Levophed and on Midodrine 10 tid 6. History of previous COVID infection in May 2020 and active Covid in isolation Now negative again 7. Dementia. SHAYY RN and Dr hernandez Subjective Subjective In ICU on the Vent Fio2 30%, PEEP 5 Had 31 beats of VT on 07/14/20 at 16:46 and 5 beats 07/19/20 Coded on 07/23/20 as sat dropped to 20% and got jose 30s and PEA and pulseless Off Levophed on Midodrine 10 tid Covid test was negative. Failed weaning again. Family refusing tracheostomy Objective Last 24 Hour Vital Signs Date Time Temp Pulse Resp B/P (MAP) Pulse Ox O2 Delivery O2 Flow Rate FiO2 07/31/20 12:00 Mechanical Ventilator Mechanical Ventilator 07/31/20 12:00 30 07/31/20 12:00 99.4 67 26 132/63 (86) 100 07/31/20 11:28 68 26 30 07/31/20 11:00 71 24 150/70 (96) 100 07/31/20 10:00 73 25 140/70 (93) 100 07/31/20 09:35 30 07/31/20 09:32 100 07/31/20 09:29 72 21 30 07/31/20 09:00 74 16 119/65 (83) 100 07/31/20 08:00 99.4 75 16 115/60 (78) 100 07/31/20 08:00 Mechanical Ventilator Mechanical Ventilator 07/31/20 08:00 30 07/31/20 07:05 74 12 30 07/31/20 07:00 77 11 142/67 (92) 100 07/31/20 06:30 70 12 07/31/20 06:00 80 13 121/61 (81) 100 07/31/20 05:13 79 13 30 07/31/20 05:00 80 12 116/90 (99) 100 07/31/20 04:00 30 07/31/20 04:00 Mechanical Ventilator Mechanical Ventilator 07/31/20 04:00 99.4 80 18 118/68 (85) 100 07/31/20 03:23 80 13 30 07/31/20 03:02 76 07/31/20 03:00 94 18 149/68 (95) 100 07/31/20 02:00 81 12 99/57 (71) 100 07/31/20 01:21 81 15 30 07/31/20 01:00 90 12 127/71 (89) 100 07/31/20 00:27 88 20 135/73 100 07/31/20 00:00 Mechanical Ventilator Mechanical Ventilator 07/31/20 00:00 30 07/31/20 00:00 98.5 85 19 135/73 (93) 99 07/30/20 23:57 97 20 171/91 100 07/30/20 23:15 84 19 171/91 (117) 100 07/30/20 23:13 87 07/30/20 23:00 81 19 174/96 (122) 100 07/30/20 22:59 78 17 30 07/30/20 22:00 70 17 131/65 (87) 100 07/30/20 21:00 68 13 110/58 (75) 100 07/30/20 20:39 64 12 30 07/30/20 20:00 98.8 72 15 114/61 (78) 100 07/30/20 20:00 30 07/30/20 20:00 Mechanical Ventilator Mechanical Ventilator 07/30/20 19:18 66 12 30 07/30/20 19:16 65 07/30/20 19:00 67 16 121/69 (86) 100 07/30/20 18:00 63 12 116/61 (79) 100 07/30/20 17:15 65 17 30 07/30/20 17:00 67 12 93/52 (66) 100 07/30/20 16:00 99.4 07/30/20 16:00 65 12 111/58 (75) 100 07/30/20 16:00 30 07/30/20 16:00 Mechanical Ventilator Mechanical Ventilator 07/30/20 15:36 67 07/30/20 15:15 71 16 30 07/30/20 15:00 71 21 96/52 (67) 100 07/30/20 14:15 30 07/30/20 14:00 71 13 105/56 (72) 100 07/30/20 13:15 30 Intake and Output 07/30/20 07/31/20 18:59 06:59 Intake Total 1700.832 ml 1220 ml Output Total 950 ml 1260 ml Balance 750.832 ml -40 ml IV Total 1040.832 ml 500 ml Tube Feeding 660 ml 720 ml Output Urine Total 950 ml 1260 ml # Bowel Movements 4 2 Laboratory Tests Test 07/30/20 14:04 07/31/20 00:16 07/31/20 05:00 07/31/20 05:44 Arterial Blood pH 7.465 (7.350-7.450) Arterial Blood Partial Pressure CO2 31.4 mmHg (35.0-45.0) L Arterial Blood Partial Pressure O2 80.1 mmHg (75.0-100.0) Arterial Blood HCO3 22.1 mmol/L (22.0-26.0) Arterial Blood Oxygen Saturation 95.7 % (95-100) Arterial Blood Base Excess -1.1 (-2-2) Richard Test Positive POC Whole Blood Glucose Pending Pending White Blood Count 10.0 K/UL (4.8-10.8) Red Blood Count 3.15 M/UL (4.70-6.10) L Hemoglobin 9.5 G/DL (14.2-18.0) L Hematocrit 30.7 % (42.0-52.0) L Mean Corpuscular Volume 98 FL (80-99) Mean Corpuscular Hemoglobin 30.3 PG (27.0-31.0) Mean Corpuscular Hemoglobin Concent 31.0 G/DL (32.0-36.0) L Red Cell Distribution Width 17.3 % (11.6-14.8) H Platelet Count 365 K/UL (150-450) Mean Platelet Volume 6.5 FL (6.5-10.1) Neutrophils (%) (Auto) 76.2 % (45.0-75.0) H Lymphocytes (%) (Auto) 13.1 % (20.0-45.0) L Monocytes (%) (Auto) 8.8 % (1.0-10.0) Eosinophils (%) (Auto) 0.7 % (0.0-3.0) Basophils (%) (Auto) 1.2 % (0.0-2.0) Sodium Level 140 MMOL/L (136-145) Potassium Level 4.0 MMOL/L (3.5-5.1) Chloride Level 108 MMOL/L (98-107) H Carbon Dioxide Level 24 MMOL/L (21-32) Anion Gap 8 mmol/L (5-15) Blood Urea Nitrogen 14 mg/dL (7-18) Creatinine 0.9 MG/DL (0.55-1.30) Estimat Glomerular Filtration Rate > 60 mL/min (>60) Glucose Level 121 MG/DL (74-106) H Calcium Level 7.8 MG/DL (8.5-10.1) L Phosphorus Level 2.9 MG/DL (2.5-4.9) Magnesium Level 2.2 MG/DL (1.8-2.4) Total Bilirubin 0.3 MG/DL (0.2-1.0) Aspartate Amino Transf (AST/SGOT) 16 U/L (15-37) Alanine Aminotransferase (ALT/SGPT) 19 U/L (12-78) Alkaline Phosphatase 109 U/L (46-116) Total Protein 6.3 G/DL (6.4-8.2) L Albumin 1.6 G/DL (3.4-5.0) L Globulin 4.7 g/dL Albumin/Globulin Ratio 0.3 (1.0-2.7) L Test 07/31/20 07:08 07/31/20 10:48 Arterial Blood pH 7.466 (7.350-7.450) 7.470 (7.350-7.450) Arterial Blood Partial Pressure CO2 31.8 mmHg (35.0-45.0) L 31.8 mmHg (35.0-45.0) L Arterial Blood Partial Pressure O2 92.9 mmHg (75.0-100.0) 84.7 mmHg (75.0-100.0) Arterial Blood HCO3 22.4 mmol/L (22.0-26.0) 22.6 mmol/L (22.0-26.0) Arterial Blood Oxygen Saturation 97.0 % (95-100) 96.3 % (95-100) Arterial Blood Base Excess -0.8 (-2-2) -0.5 (-2-2) Richard Test Positive Positive Objective HEAD AND NECK: No JVD. Orally intubated LUNGS: Coarse rhonchi. CARDIOVASCULAR: Irregular S1 and S2 with no gallop. ABDOMEN: Soft. EXTREMITIES: No pitting edema. Klever Matt MD Jul 31, 2020 13:12
--- NOTE | 2020-07-31 13:47 | Nephrology Progress Note ---
Assessment/Plan Problem List: (1) Dehydration (2) MELANIE (acute kidney injury) (3) Renal failure (ARF), acute on chronic (4) Hypoxia (5) Acute encephalopathy (6) Electrolyte imbalance Assessment 79-year-old male is admitted with acute hypoxic respiratory failure most likely secondary to pneumonia and sepsis, UTI. Acute on chronic renal failure Dehydration Electrolyte imbalances, hypernatremia Hypoalbuminemia Diabetes type 2 History of congestive heart failure Hypertension Hyperlipemia Alzheimer's Previous COVID-19 infection in May 2020 Plan July 31: Remains on mechanical ventilation. Labs reviewed. Abnormal electrolytes addressed. Stable from renal standpoint of view. July 30: Remains intubated. Remains full code. Labs reviewed. Low phosphorus replaced. Continue to monitor renal parameters. Continue per consultants. July 29: Failed weaning. Remains intubated. Remains full closed. Labs reviewed. Stable from renal standpoint view. July 28: Remains in ICU. Remains full code. Labs are reviewed. Phosphorus supplement given. Continue per consultants. July 27: Remains in ICU. Full code. Labs reviewed. Remains intubated. Stable renal parameters. July 26: In ICU. Full code. Discussed with RN. Stable renal parameters. July 25: Seen in ICU. Discussed with FLORES Holliday. Flomax discontinued. Labs reviewed. Stable from renal standpoint of view. July 24: Seen in ICU. Discussed with FLORES Holliday. Remains on pressor. Electrolyte abnormalities noted and addressed. Continue per consultants. Qian ent remains full code. July 23: Seen in ICU. Discussed with FLORES Barrera. Blood pressure remains a little requiring pressors. Labs reviewed. Stable renal parameters. Continue per consultants. July 22: Remains intubated. Full code. Blood pressure borderline low. Will increase midodrine dose. Discussed with RN. Continue to monitor renal parameters and electrolytes. July 21: Intubated. Full code. Labs reviewed. Stable from renal standpoint of view. Continue per consultants. July 20: Remains intubated. Full code. Labs reviewed. Electrolytes within normal limit. Continue per consultants. July 19: In ICU. Remains intubated on ventilator. Remains full code. Low potassium addressed. Blood pressure fluctuating. Continue per consultants. July 18: Patient in ICU. Intubated on ventilator. On 6 mics of Levophed. Will give 100 cc albumin 25%. K-Phos IV ordered. Continue per consultants. Continue monitor renal parameters and electrolytes. July 17: Status unchanged. Transfer to [facility] for seizure. Stable from renal standpoint to view. Continue per consultants. July 16: Status quo. Labs reviewed. Renal parameters stable. Continue per consultants. July 15: On nonrebreather mask. Labs reviewed. Renal parameters stable.C ontinue per bolting machine operator. Clinically unchanged. July 14: On nonrebreather mask. Inflammatory markers gradually declining. Renal parameters stable. Continue per pulmonary. July 13: Remains on nonrebreather mask. Inflammatory markers remain eleva jimi. Renal parameters somewhat stable. Continue per pulmonary and ID. Remains full code. July 12: Patient on nonrebreather mask. Labs noted. Serum creatinine down to 1.3. Continue per consultants. July 11: Patient on nonrebreather mask. Transfer to telemetry when seen this morning. Labs noted. Continue per consultants. Serum creatinine erin to 1.7. Continue to monitor renal parameters. Continue to monitor vancomycin level July 10: Patient is not doing well clinically. Mild respiratory distress. ABG noted. Somewhat hypoxic. CBC and chemistry panel ordered. Discussed with FLORES Cho. Will defer to pulmonary management to specialist. Continue per ID. Renal parameters remained stable as of July 09. July 09: Labs reviewed. Renal parameters stable. Continue per consultants. July 08: Labs reviewed. Potassium via NG tube ordered. IV fluids stopped. Continue per consultants. July 07: Labs reviewed. Low potassium and low phosphorus replaced. Continue per consultants. Remains stable from renal standpoint of view. July 06: Patient remains n.p.o. IV fluid down to 50 cc an hour. Potassium supplement intravenously ordered. Continue per consultants. Previously: Patient is n.p.o., will continue on IV fluid of D5W 75 cc an hour We will monitor electrolytes and renal parameters Avoid nephrotoxic's Start p.o. when he clears by speech therapist, meanwhile aspiration precautions Keep the blood pressure and blood sugar in check Per orders Subjective ROS Limited/Unobtainable: Yes Objective Objective Last 24 Hour Vital Signs Date Time Temp Pulse Resp B/P (MAP) Pulse Ox O2 Delivery O2 Flow Rate FiO2 07/31/20 13:00 68 24 139/70 (93) 100 07/31/20 12:00 Mechanical Ventilator Mechanical Ventilator 07/31/20 12:00 30 07/31/20 12:00 99.4 67 26 132/63 (86) 100 07/31/20 11:28 68 26 30 07/31/20 11:00 71 24 150/70 (96) 100 07/31/20 10:00 73 25 140/70 (93) 100 07/31/20 09:35 30 07/31/20 09:32 100 07/31/20 09:29 72 21 30 07/31/20 09:00 74 16 119/65 (83) 100 07/31/20 08:00 99.4 75 16 115/60 (78) 100 07/31/20 08:00 Mechanical Ventilator Mechanical Ventilator 07/31/20 08:00 30 07/31/20 07:05 74 12 30 07/31/20 07:00 77 11 142/67 (92) 100 07/31/20 06:30 70 12 07/31/20 06:00 80 13 121/61 (81) 100 07/31/20 05:13 79 13 30 07/31/20 05:00 80 12 116/90 (99) 100 07/31/20 04:00 30 07/31/20 04:00 Mechanical Ventilator Mechanical Ventilator 07/31/20 04:00 99.4 80 18 118/68 (85) 100 07/31/20 03:23 80 13 30 07/31/20 03:02 76 07/31/20 03:00 94 18 149/68 (95) 100 07/31/20 02:00 81 12 99/57 (71) 100 07/31/20 01:21 81 15 30 07/31/20 01:00 90 12 127/71 (89) 100 07/31/20 00:27 88 20 135/73 100 07/31/20 00:00 Mechanical Ventilator Mechanical Ventilator 07/31/20 00:00 30 07/31/20 00:00 98.5 85 19 135/73 (93) 99 07/30/20 23:57 97 20 171/91 100 07/30/20 23:15 84 19 171/91 (117) 100 07/30/20 23:13 87 07/30/20 23:00 81 19 174/96 (122) 100 07/30/20 22:59 78 17 30 07/30/20 22:00 70 17 131/65 (87) 100 07/30/20 21:00 68 13 110/58 (75) 100 07/30/20 20:39 64 12 30 07/30/20 20:00 98.8 72 15 114/61 (78) 100 07/30/20 20:00 30 07/30/20 20:00 Mechanical Ventilator Mechanical Ventilator 07/30/20 19:18 66 12 30 07/30/20 19:16 65 07/30/20 19:00 67 16 121/69 (86) 100 07/30/20 18:00 63 12 116/61 (79) 100 07/30/20 17:15 65 17 30 07/30/20 17:00 67 12 93/52 (66) 100 07/30/20 16:00 99.4 07/30/20 16:00 65 12 111/58 (75) 100 07/30/20 16:00 30 07/30/20 16:00 Mechanical Ventilator Mechanical Ventilator 07/30/20 15:36 67 07/30/20 15:15 71 16 30 07/30/20 15:00 71 21 96/52 (67) 100 07/30/20 14:15 30 07/30/20 14:00 71 13 105/56 (72) 100 Intake and Output 07/30/20 07/31/20 19:00 07:00 Intake Total 1720.832 ml 1220 ml Output Total 950 ml 1320 ml Balance 770.832 ml -100 ml IV Total 1040.832 ml 500 ml Tube Feeding 680 ml 720 ml Output Urine Total 950 ml 1320 ml # Bowel Movements 4 2 Current Medications Medications (Trade) Dose Ordered Sig/Ankush Route PRN Reason Start Time Stop Time Status Last Admin Dose Admin Acetaminophen (Tylenol) 650 mg Q4H PRN ORAL Temp >100.5 07/03/20 20:30 08/02/20 20:29 07/27/20 13:01 Chlorhexidine Gluconate (Darcy-Hex 2%) 1 applic DAILY@1999 TOPIC 07/17/20 20:00 10/15/20 19:59 07/30/20 20:13 Dextrose (Dextrose 50%) 50 ml Q30M PRN IV Hypoglycemia 07/03/20 22:45 10/01/20 22:44 Heparin Sodium (Porcine) (Heparin 5000 units/ml) 5,000 units EVERY 12 HOURS SUBQ 07/03/20 21:00 08/17/20 20:59 07/31/20 09:06 Insulin Aspart (NovoLOG) EVERY 6 HOURS SUBQ 07/13/20 06:00 10/02/20 06:29 07/29/20 11:26 Linezolid 300 ml @ 300 mls/hr Q12HR IVPB 07/24/20 12:00 07/31/20 23:59 07/31/20 09:05 Lorazepam (Ativan 2mg/ml 1ml) 2 mg Q4H PRN IV For Anxiety 07/28/20 19:15 08/04/20 19:14 07/30/20 23:57 Midodrine (Pro-Amatine) 10 mg Q8H ORAL 07/22/20 17:00 10/20/20 16:59 07/31/20 17:37 Nitroglycerin (Ntg) 0.4 mg Q5M PRN SL Prn Chest Pain 07/03/20 20:30 08/02/20 20:29 Ondansetron HCl (Zofran) 4 mg Q6H PRN IVP Nausea & Vomiting 07/03/20 20:30 08/02/20 20:29 Pantoprazole (Protonix) 40 mg DAILY IV 07/18/20 09:00 08/17/20 08:59 07/31/20 09:05 Polyethylene Glycol (Miralax) 17 gm DAILYPRN PRN ORAL Constipation 07/03/20 20:30 08/02/20 20:29 Promethazine HCl/ Codeine (Phenergan with Codeine) 5 ml Q4H PRN ORAL For Cough 07/03/20 20:30 08/02/20 20:29 Sodium Chloride 1,000 ml @ 50 mls/hr Q20H IV 07/17/20 16:00 08/16/20 15:59 07/31/20 04:00 Laboratory Tests 07/30/20 14:04: Arterial Blood pH 7.465H, Arterial Blood Partial Pressure CO2 31.4L, Arterial Blood Partial Pressure O2 80.1, Arterial Blood HCO3 22.1, Arterial Blood Oxygen Saturation 95.7, Arterial Blood Base Excess -1.1, Richard Test Positive 07/31/20 00:16: POC Whole Blood Glucose [Pending] 07/31/20 05:00: White Blood Count 10.0, Red Blood Count 3.15L, Hemoglobin 9.5L, Hematocrit 30.7L , Mean Corpuscular Volume 98, Mean Corpuscular Hemoglobin 30.3, Mean Corpuscular Hemoglobin Concent 31.0L, Red Cell Distribution Width 17.3H, Platelet Count 365, Mean Platelet Volume 6.5, Neutrophils (%) (Auto) 76.2H, Lymphocytes (%) (Auto) 13.1L, Monocytes (%) (Auto) 8.8, Eosinophils (%) (Auto) 0.7, Basophils (%) (Auto) 1.2, Sodium Level 140, Potassium Level 4.0, Chloride Level 108H, Carbon Dioxide Level 24, Anion Gap 8, Blood Urea Nitrogen 14, Creatinine 0.9, Estimat Glomerular Filtration Rate > 60, Glucose Level 121H, Calcium Level 7.8L, Phosphorus Level 2.9, Magnesium Level 2.2, Total Bilirubin 0.3, Aspartate Amino Transf (AST/SGOT) 16, Alanine Aminotransferase (ALT/SGPT) 19, Alkaline Phosph atase 109, Total Protein 6.3L, Albumin 1.6L, Globulin 4.7, Albumin/Globulin Ratio 0.3L 07/31/20 05:44: POC Whole Blood Glucose [Pending] 07/31/20 07:08: Arterial Blood pH 7.466H, Arterial Blood Partial Pressure CO2 31.8L, Arterial Blood Partial Pressure O2 92.9, Arterial Blood HCO3 22.4, Arterial Blood Oxygen Saturation 97.0, Arterial Blood Base Excess -0.8, Richard Test Positive 07/31/20 10:48: Arterial Blood pH 7.470H, Arterial Blood Partial Pressure CO2 31.8L, Arterial Blood Partial Pressure O2 84.7, Arterial Blood HCO3 22.6, Arterial Blood Oxygen Saturation 96.3, Arterial Blood Base Excess -0.5, Richard Test Positive Height (Feet): 5 Height (Inches): 4.00 Weight (Pounds): 130 General Appearance: no apparent distress EENT: other - Continues to be intubated on mechanical ventilation Cardiovascular: normal rate Respiratory/Chest: decreased breath sounds Abdomen: distended Tino Connors MD Jul 31, 2020 13:47
--- NOTE | 2020-07-31 14:06 | NUR ---
RADIOLOGY DEPT., CHEST X-RAY DONE.-P.DYE
--- NOTE | 2020-07-31 14:30 | NUR ---
NURSE NOTES: Pt back on original vent settings.
--- NOTE | 2020-07-31 16:00 | NUR ---
NURSE NOTES: Pt fully cleaned and linens changed after pt had a moderate brown soft BM. Pt awake and alert. Attempting to pull at tubing when taken off of restraints. Pulses present, skin intact, and no swelling present. BL soft wrist restraints reapplied and maintained.
--- NOTE | 2020-07-31 18:00 | NUR ---
NURSE NOTES: Oral care done. BS 126. No Novolog given, per sliding scale. Pt resting comfortably in bed at this time. No distress noted.
--- NOTE | 2020-07-31 18:19 | Diagnostic Imaging Report ---
EXAM: XR Chest, 1 View CLINICAL HISTORY: DYSPNEA TECHNIQUE: Frontal view of the chest. COMPARISON: 07/26/2020 FINDINGS: Lungs: Mildly improved, left worse than right bibasilar patchy airspace consolidations. Unchanged retrocardiac atelectasis without or with consolidation. Unchanged low lung volumes with bronchovascular crowding. Pleural space: Unremarkable. No pneumothorax. Heart: Unremarkable. No cardiomegaly. Mediastinum: Unremarkable. Bones/joints: Unchanged right humeral hemiarthroplasty Tubes, lines and devices: Unchanged ETT 3.5 cm above lea. Unchanged enteric tube with tip and proximal sideport below the gastroesophageal junction. IMPRESSION: 1. Unchanged ETT 3.5 cm above lea. 2. Unchanged enteric tube with tip and proximal sideport below the gastroesophageal junction. 3. Mildly improved, left worse than right bibasilar patchy airspace consolidations. 4. Unchanged retrocardiac atelectasis without or with consolidation. 5. Unchanged low lung volumes with bronchovascular crowding.
--- NOTE | 2020-07-31 19:15 | NUR ---
NURSE HAND-OFF REPORT: Latest Vital Signs: Temperature 99.6 , Pulse 67 , B/P 138 /66 , Respiratory Rate 16 , O2 SAT 100 , Mechanical Ventilator, FiO2 30% . Vital Sign Comment: EKG Rhythm: Sinus Rhythm Rhythm change?: N MD Notified?: MD Response: Latest Gonzalez Fall Score: 50 Fall Risk: High Risk Safety Measures: Call light Within Reach, Bed Alarm Zone 2, Side Rails Side Rails x3, Bed position Low and Locked. Fall Precautions: Yellow Socks Yellow Gown Door Sign Patient Fall Education Report given to FLORES Walker.
--- NOTE | 2020-07-31 19:42 | Diagnostic Imaging Report ---
EXAM: XR Chest, 1 View CLINICAL HISTORY: DYSPNEA TECHNIQUE: Frontal view of the chest. COMPARISON: 07/30/2020 and 07/29/2020 FINDINGS: Lungs: Intervally mildly improved bibasilar pulmonary scattered patchy airspace opacities. Unchanged retrocardiac atelectasis with or with consolidation. Low lung volumes with bronchovascular crowding. Pleural space: Unremarkable. No pneumothorax. Heart: Unremarkable. No cardiomegaly. Mediastinum: Unremarkable. Bones/joints: Unchanged right humeral hemiarthroplasty. Tubes, lines and devices: ETT 3.5 cm above lea. Enteric tube with tip and proximal sideport below the gastroesophageal junction. Unchanged right upper extremity PICC with tip in the right mid subclavian vein. IMPRESSION: 1. ETT 3.5 cm above lea. 2. Enteric tube with tip and proximal sideport below the gastroesophageal junction. 3. Unchanged right upper extremity PICC with tip in the right mid subclavian vein. 4. Intervally mildly improved bibasilar pulmonary scattered patchy airspace opacities. 5. Unchanged retrocardiac atelectasis with or with consolidation. 6. Low lung volumes with bronchovascular crowding.
[2020-07-31] MEDS: Dyna-Hex 2% Top Sol 2oz TOPIC SCH (20:14)
--- NOTE | 2020-07-31 20:15 | Diagnostic Imaging Report ---
EXAM: XR Chest, 1 View CLINICAL HISTORY: INFECT TECHNIQUE: Frontal view of the chest. COMPARISON: 07/28/2020 and subsequent study 07/31/2020 FINDINGS: Lungs: Similar bibasilar patchy airspace opacities could represent multifocal infection, aspiration, or some component of atelectasis. Unchanged retrocardiac atelectasis and lateral consolidation. Low lung volumes with bronchovascular crowding. Pleural space: Unremarkable. No pneumothorax. Heart: Unremarkable. No cardiomegaly. Mediastinum: Unremarkable. Bones/joints: Unchanged right pleural component hemiarthroplasty. Tubes, lines and devices: ETT 2.4 cm above lea. Enteric tube with tip and proximal sideport below the gastroesophageal junction. Unchanged right upper extremity PICC with tip in the mid right subclavian vein. Other findings: Please refer to report from 07/31/2020 study from [facility]. IMPRESSION: 1. Please refer to report from 07/31/2020 study from [facility]. 2. ETT 2.4 cm above lea. 3. Enteric tube with tip and proximal sideport below the gastroesophageal junction. 4. Unchanged right upper extremity PICC with tip in the mid right subclavian vein. 5. Similar bibasilar patchy airspace opacities could represent multifocal infection, aspiration, or some component of atelectasis. 6. Unchanged retrocardiac atelectasis and lateral consolidation. 7. Low lung volumes with bronchovascular crowding.
--- NOTE | 2020-07-31 20:18 | NUR ---
NURSE NOTES: received report from molly rn pt asleep open eyes to touch does not follows command on christian soft restraint nan complaint orally intubated o2 sat 100% no acute resp distres reposition and suction tolerating tube feeding no residual urinary retention
--- NOTE | 2020-07-31 22:00 | NUR ---
NURSE NOTES: reposition and suction
[2020-08-01] VITALS (24 sets, daily range): BP systolic 90–180; BP diastolic 47–97
--- NOTE | 2020-08-01 | NUR ---
NURSE NOTES: bs 128 no coverage
[2020-08-01] MEDS: Midodrine 10mg tab ORAL SCH ×3 (00:44→18:19)
--- NOTE | 2020-08-01 02:00 | NUR ---
NURSE NOTES: had large bm complete bed bath done and oral care done
[2020-08-01] MEDS: LORazepam Inj 2mg/ml 1ml IV PRN (02:47)
--- NOTE | 2020-08-01 03:00 | NUR ---
NURSE NOTES: pt restless and aditeted temp 101.5 medicated with [id number] and tyl 650mg given
--- NOTE | 2020-08-01 04:00 | NUR ---
NURSE NOTES: pt asleep and temp 100
[2020-08-01] MEDS: NovoLOG Insulin Flexpen SUBQ SCH ×5 (06:00→23:45)
[2020-08-01 06:06] LABS: HEMATOCRIT 30.8 % (42.0-52.0); HEMOGLOBIN 9.6 G/DL (14.2-18.0); MEAN CORPUSCULAR VOLUME 98 FL (80-99); PLATELET COUNT 333 K/UL (150-450); RED BLOOD COUNT 3.15 M/UL (4.70-6.10); RED CELL DISTRIBUTION WIDTH 16.8 % (11.6-14.8); WHITE BLOOD COUNT 14.8 K/UL (4.8-10.8)
[2020-08-01 07:02] LABS: ALANINE AMINOTRANSFERASE 15 U/L (12-78); ALBUMIN 1.5 G/DL (3.4-5.0); ALBUMIN/GLOBULIN RATIO 0.3 (1.0-2.7); ALKALINE PHOSPHATASE 120 U/L (46-116); ANION GAP 6 mmol/L (5-15); ASPARTATE AMINO TRANSFERASE 14 U/L (15-37); BILIRUBIN,TOTAL 0.4 MG/DL (0.2-1.0); BLOOD UREA NITROGEN 12 mg/dL (7-18); CALCIUM 7.8 MG/DL (8.5-10.1); CARBON DIOXIDE 26 MMOL/L (21-32); CHLORIDE 105 MMOL/L (98-107); CREATININE 0.8 MG/DL (0.55-1.30); PHOSPHORUS 2.7 MG/DL (2.5-4.9); POTASSIUM 4.1 MMOL/L (3.5-5.1); SODIUM 137 MMOL/L (136-145)
--- NOTE | 2020-08-01 07:40 | NUR ---
NURSE HAND-OFF REPORT: Latest Vital Signs: Temperature 99.8 , Pulse 75 , B/P 90 /49 , Respiratory Rate 12 , O2 SAT 100 , Mechanical Ventilator, O2 Flow Rate . Vital Sign Comment: EKG Rhythm: Sinus Rhythm Rhythm change?: N Notified?: Grecia Rivera MD Response: Latest Gonzalez Fall Score: 50 Fall Risk: High Risk Safety Measures: Call light Within Reach, Bed Alarm Zone 2, Side Rails Side Rails x3, Bed position Low and Locked. Fall Precautions: Yellow Socks Yellow Gown Door Sign Patient Fall Education Report given to luz post using sbar
--- NOTE | 2020-08-01 08:00 | NUR ---
NURSE NOTES: Pt was assessed after receiving change of shift report from Denise TANNER. Pt is awake, does not follow commands, orally intubated. ETT 7.5 at 25cm lipline with vent settings AC12, VT600, FIO2 30%, Peep 0, at 100% O2Sat. NSR on telemetry monitor; HR 72. Temp 99.9F axillary. Left nare NGT with feeding Glucerna 1.2 at goal rate of 60ml/hour with zero residual. Abdomen is round, soft, nontender to touch with hypoactive bowel sounds. Wiley catheter is present, draining clear/yellow urine. Skin alterations present including bilateral buttocks and bilateral heels sites. Pt is on pressure release mattress. Bilateral soft wrist restraints are present for pt safety to prevent self extubation, since pt is observed attempting to reach ET tube. Skin/vascular integrity at restraint sites remain within normal limits. HOB at 30 degrees, bed locked, three side rails up.
--- NOTE | 2020-08-01 08:25 | NUR ---
NURSE NOTES: Pt was placed on CPAP with PS 8, FIO2 30% for weaning. Pt is tolerating well with O2Sat at 100% and no respiratory distress, with stable VS.
--- NOTE | 2020-08-01 08:45 | Infectious Diseases Prog Note ---
Assessment/Plan 79yo M with: Respiratory code 2ry to mucus plug 07/23 Septic Shock- -recurrent Fever, recurrent, low grade;SP Leukocytosis; recurrent; increased Acute hypoxic resp failure, on NRB mask> 4l NC; back on NRB, desaturation 07/09 > intubated 07/17 Pneumonia- >HAP Hx of COVID19 PNA 05/20/2007/28 CXR: No significant interval change in the radiographic appearance the chest compared to one day prior. 07/25 Resp cx +MRSA, nl resp bobby UCx neg BCx NTD 07/24 COVID PCR neg --07/21 CXR: Bilateral infiltrates in a peribronchovascular distribution are unchanged. Left pleural effusion is unchanged. --07/19 CXR: Persistent bilateral patchy pulmonary opacities, most prominent in the left lower lung. --07/18 ucx neg sp cx MRSA (colonizer at this point) Bcx Neg --07/13 Bcx Neg 07/10 Sp cx MRSA (Vancomycin APOLONIA 1), ESBL E.coli 07/03 BCx NTD UA - WBC, UCx Neg 07/03 COVID rapid neg; 07/06 rapid COVID PCR + (from prior infection)- not new infection Flu A/B neg CXR: L pna Resp cx MRSA 07/30 Resp cx +GNR 08/01 BCx ordered MELANIE on CKD, improving SNF resident (ed rosas) Non-verbal VRE and MRSA colonized Plan: Start meropenem #1 given high fever BCx Trend temp curve, WBC -07/31 SP linezolid #7 -07/27 SP meropenem #14 for ESBL pna -07/21 SP Micafungin #4 -07/17 SP IV Vancomycin #15 -07/13 SP Zosyn # -07/06 SP Cefepime # -07/04 SP Flagyl # Monitor CBC/CMP Monitor resp status Monitor temp curve and hemodynamics D/w RN Thank you for this consult. [facility] will continue to follow. Subjective Allergies: Coded Allergies: No Known Allergies (Unverified , 04/30/12) Febrile to 101.5 Resp cx +GNR WBC up to 14 NAD on vent 30% PEEP 5 HDS Objective Last 24 Hour Vital Signs Date Time Temp Pulse Resp B/P (MAP) Pulse Ox O2 Delivery O2 Flow Rate FiO2 08/01/20 06:54 75 12 30 08/01/20 06:00 70 12 08/01/20 06:00 99.8 73 12 90/49 (63) 100 08/01/20 05:00 100.0 75 15 94/47 (63) 100 08/01/20 04:00 Mechanical Ventilator Mechanical Ventilator 08/01/20 04:00 77 08/01/20 04:00 87 13 92/47 (62) 100 08/01/20 04:00 30 08/01/20 04:00 30 08/01/20 03:49 120 17 30 08/01/20 03:37 100.0 08/01/20 03:17 77 18 94/48 100 08/01/20 03:00 101.5 129 26 130/97 (108) 100 08/01/20 02:47 115 22 203/109 100 08/01/20 02:00 76 13 180/77 (111) 100 08/01/20 01:00 78 20 144/57 (86) 100 08/01/20 00:00 30 08/01/20 00:00 98.6 79 14 128/64 (85) 100 08/01/20 00:00 Mechanical Ventilator Mechanical Ventilator 08/01/20 00:00 100 07/31/20 23:05 73 14 30 07/31/20 23:00 76 13 126/64 (84) 100 07/31/20 22:00 72 13 122/60 (80) 100 07/31/20 21:00 72 14 138/62 (87) 100 07/31/20 20:00 99.0 72 13 123/59 (80) 100 07/31/20 20:00 30 07/31/20 20:00 Mechanical Ventilator Mechanical Ventilator 07/31/20 20:00 77 07/31/20 19:34 71 14 30 07/31/20 19:00 67 16 138/66 (90) 100 07/31/20 18:00 70 13 129/69 (89) 100 07/31/20 17:00 71 12 103/49 (67) 100 07/31/20 16:30 76 12 30 07/31/20 16:00 Mechanical Ventilator Mechanical Ventilator 07/31/20 16:00 99.6 73 13 122/57 (78) 100 07/31/20 16:00 82 07/31/20 16:00 30 07/31/20 15:29 72 12 30 07/31/20 15:00 72 17 121/59 (79) 97 07/31/20 14:15 30 07/31/20 14:00 79 20 138/86 (103) 100 07/31/20 13:06 69 24 30 07/31/20 13:00 68 24 139/70 (93) 100 07/31/20 12:00 Mechanical Ventilator Mechanical Ventilator 07/31/20 12:00 30 07/31/20 12:00 99.4 67 26 132/63 (86) 100 07/31/20 12:00 68 07/31/20 11:28 68 26 30 07/31/20 11:00 71 24 150/70 (96) 100 07/31/20 10:00 73 25 140/70 (93) 100 07/31/20 09:35 30 07/31/20 09:32 100 07/31/20 09:29 72 21 30 07/31/20 09:00 74 16 119/65 (83) 100 Height (Feet): 5 Height (Inches): 4.00 Weight (Pounds): 130 Gen: NAD in bed HEENT: NCAT CV: RRR Pulm: BL chest rise on vent Abd: Soft, NTND Ext: No c/c/e Neuro: Eyes closed, not interactive Microbiology Date/Time Source Procedure Growth Status 07/30/20 17:15 Sputum Gram Stain - Final Resulted 07/30/20 17:15 Sputum Culture - Preliminary Gram Negative Dionte Resulted Laboratory Tests Test 07/31/20 10:48 08/01/20 04:41 08/01/20 05:20 Arterial Blood pH 7.470 (7.350-7.450) Arterial Blood Partial Pressure CO2 31.8 mmHg (35.0-45.0) L Arterial Blood Partial Pressure O2 84.7 mmHg (75.0-100.0) Arterial Blood HCO3 22.6 mmol/L (22.0-26.0) Arterial Blood Oxygen Saturation 96.3 % (95-100) Arterial Blood Base Excess -0.5 (-2-2) Richard Test Positive POC Whole Blood Glucose 139 MG/DL (74-106) H White Blood Count 14.8 K/UL (4.8-10.8) H Red Blood Count 3.15 M/UL (4.70-6.10) L Hemoglobin 9.6 G/DL (14.2-18.0) L Hematocrit 30.8 % (42.0-52.0) L Mean Corpuscular Volume 98 FL (80-99) Mean Corpuscular Hemoglobin 30.6 PG (27.0-31.0) Mean Corpuscular Hemoglobin Concent 31.3 G/DL (32.0-36.0) L Red Cell Distribution Width 16.8 % (11.6-14.8) H Platelet Count 333 K/UL (150-450) Mean Platelet Volume 6.6 FL (6.5-10.1) Neutrophils (%) (Auto) % (45.0-75.0) Lymphocytes (%) (Auto) % (20.0-45.0) Monocytes (%) (Auto) % (1.0-10.0) Eosinophils (%) (Auto) % (0.0-3.0) Basophils (%) (Auto) % (0.0-2.0) Neutrophils % (Manual) Pending Lymphocytes % (Manual) Pending Platelet Estimate Pending Platelet Morphology Pending Erythrocyte Sedimentation Rate 109 MM/HR (0-20) H Sodium Level 137 MMOL/L (136-145) Potassium Level 4.1 MMOL/L (3.5-5.1) Chloride Level 105 MMOL/L (98-107) Carbon Dioxide Level 26 MMOL/L (21-32) Anion Gap 6 mmol/L (5-15) Blood Urea Nitrogen 12 mg/dL (7-18) Creatinine 0.8 MG/DL (0.55-1.30) Estimat Glomerular Filtration Rate > 60 mL/min (>60) Glucose Level 138 MG/DL (74-106) H Calcium Level 7.8 MG/DL (8.5-10.1) L Phosphorus Level 2.7 MG/DL (2.5-4.9) Magnesium Level 2.1 MG/DL (1.8-2.4) Total Bilirubin 0.4 MG/DL (0.2-1.0) Aspartate Amino Transf (AST/SGOT) 14 U/L (15-37) L Alanine Aminotransferase (ALT/SGPT) 15 U/L (12-78) Alkaline Phosphatase 120 U/L (46-116) H C-Reactive Protein, Quantitative 7.7 mg/dL (0.00-0.90) H Total Protein 6.3 G/DL (6.4-8.2) L Albumin 1.5 G/DL (3.4-5.0) L Globulin 4.8 g/dL Albumin/Globulin Ratio 0.3 (1.0-2.7) L Current Medications Medications (Trade) Dose Ordered Sig/Ankush Route PRN Reason Start Time Stop Time Status Last Admin Dose Admin Acetaminophen (Tylenol) 650 mg Q4H PRN ORAL Temp >100.5 07/03/20 20:30 08/02/20 20:29 08/01/20 03:00 Chlorhexidine Gluconate (Darcy-Hex 2%) 1 applic [id number]@199907/17/20 20:00 10/15/20 19:59 07/31/20 20:14 Dextrose (Dextrose 50%) 50 ml Q30M PRN IV Hypoglycemia 07/03/20 22:45 10/01/20 22:44 Heparin Sodium (Porcine) (Heparin 5000 units/ml) 5,000 units EVERY 12 HOURS SUBQ 07/03/20 21:00 08/17/20 20:59 07/31/20 21:11 Insulin Aspart (NovoLOG) EVERY 6 HOURS SUBQ 07/13/20 06:00 10/02/20 06:29 07/29/20 11:26 Lorazepam (Ativan 2mg/ml 1ml) 2 mg Q4H PRN IV For Anxiety 07/28/20 19:15 08/04/20 19:14 08/01/20 02:47 Midodrine (Pro-Amatine) 10 mg Q8H ORAL 07/22/20 17:00 10/20/20 16:59 08/01/20 00:44 Nitroglycerin (Ntg) 0.4 mg Q5M PRN SL Prn Chest Pain 07/03/20 20:30 08/02/20 20:29 Ondansetron HCl (Zofran) 4 mg Q6H PRN IVP Nausea & Vomiting 07/03/20 20:30 08/02/20 20:29 Pantoprazole (Protonix) 40 mg DAILY IV 07/18/20 09:00 08/17/20 08:59 07/31/20 09:05 Polyethylene Glycol (Miralax) 17 gm DAILYPRN PRN ORAL Constipation 07/03/20 20:30 08/02/20 20:29 Promethazine HCl/ Codeine (Phenergan with Codeine) 5 ml Q4H PRN ORAL For Cough 07/03/20 20:30 08/02/20 20:29 Sodium Chloride 1,000 ml @ 50 mls/hr Q20H IV 07/17/20 16:00 08/16/20 15:59 07/31/20 21:27 Lorie Ramirez M.D. Aug 01, 2020 08:45
[2020-08-01] MEDS: Heparin 5000 units/ml inj SUBQ SCH ×2 (09:31→20:23)
[2020-08-01] MEDS: Pantoprazole Inj IV SCH (09:32)
[2020-08-01] MEDS: Meropenem 1 GM in NS 55 ML IVPB SCH ×2 (09:54→18:19)
--- NOTE | 2020-08-01 10:00 | NUR ---
NURSE NOTES: AM meds were administered. Pt was repositioned for comfort. Pt remains on CPAP for weaning, tolerating well with stable VS.
--- NOTE | 2020-08-01 10:11 | Pulmonolgy Critical Care Note ---
Critical Care - Asmt/Plan Assessment/Plan: ASSESSMENT Acute hypoxemic respiratory failure , requiring intubation ( initially 100% NRM) Septic shock Pneumonia , possible aspiration Probable UTI Hx of COVID 19 05/20/20 Dysphagia MELANIE-resolved Hypernatremia History of CVA Diabetes mellitus History of hypertension Alzheimer dementia PLAN OF CARE ICU vent support pulm toilet fup with CXR and ABG failing weaning, family declining trach off pressors, on Midodrine ECHO with pEF, r/o for DC cardio on board abx as per ID recs, DVT and GI prophylaxis strict aspiration precaution gentle IVF monitor renal parameters, lytes , correct electrolytes as needed ,avoid nephrotoxic BS management with SSI supportive care remains FC case discussed and evaluated by supervising physician Critical Care - Objective Last 24 Hour Vital Signs Date Time Temp Pulse Resp B/P (MAP) Pulse Ox O2 Delivery O2 Flow Rate FiO2 08/01/20 08:25 30 08/01/20 08:25 94 08/01/20 06:54 75 12 30 08/01/20 06:00 70 12 08/01/20 06:00 99.8 73 12 90/49 (63) 100 08/01/20 05:00 100.0 75 15 94/47 (63) 100 08/01/20 04:00 Mechanical Ventilator Mechanical Ventilator 08/01/20 04:00 77 08/01/20 04:00 87 13 92/47 (62) 100 08/01/20 04:00 30 08/01/20 04:00 30 08/01/20 03:49 120 17 30 08/01/20 03:37 100.0 08/01/20 03:17 77 18 94/48 100 08/01/20 03:00 101.5 129 26 130/97 (108) 100 08/01/20 02:47 115 22 203/109 100 08/01/20 02:00 76 13 180/77 (111) 100 08/01/20 01:00 78 20 144/57 (86) 100 08/01/20 00:00 30 08/01/20 00:00 98.6 79 14 128/64 (85) 100 08/01/20 00:00 Mechanical Ventilator Mechanical Ventilator 08/01/20 00:00 100 07/31/20 23:05 73 14 30 07/31/20 23:00 76 13 126/64 (84) 100 07/31/20 22:00 72 13 122/60 (80) 100 07/31/20 21:00 72 14 138/62 (87) 100 07/31/20 20:00 99.0 72 13 123/59 (80) 100 07/31/20 20:00 30 07/31/20 20:00 Mechanical Ventilator Mechanical Ventilator 07/31/20 20:00 77 07/31/20 19:34 71 14 30 07/31/20 19:00 67 16 138/66 (90) 100 07/31/20 18:00 70 13 129/69 (89) 100 07/31/20 17:00 71 12 103/49 (67) 100 07/31/20 16:30 76 12 30 07/31/20 16:00 Mechanical Ventilator Mechanical Ventilator 07/31/20 16:00 99.6 73 13 122/57 (78) 100 07/31/20 16:00 82 07/31/20 16:00 30 07/31/20 15:29 72 12 30 07/31/20 15:00 72 17 121/59 (79) 97 07/31/20 14:15 30 07/31/20 14:00 79 20 138/86 (103) 100 07/31/20 13:06 69 24 30 07/31/20 13:00 68 24 139/70 (93) 100 07/31/20 12:00 Mechanical Ventilator Mechanical Ventilator 07/31/20 12:00 30 07/31/20 12:00 99.4 67 26 132/63 (86) 100 07/31/20 12:00 68 07/31/20 11:28 68 26 30 07/31/20 11:00 71 24 150/70 (96) 100 07/31/20 10:00 73 25 140/70 (93) 100 Objective: General Appearance: no apparent distress, intubated on vent AC 600-12-30 currnetly on CPAP Lines, tubes and drains: R PICC intact HEENT: normocephalic, atraumatic, anicteric, NGT , OP with ET in place, intact Respiratory/Chest: few scattered rhonchi Cardiovascular/Chest: normal peripheral pulses, SR Abdomen: normal bowel sounds, non tender, soft : Wiley Extremities: no calf tenderness, normal capillary refill Neurologic: abnormal gait /bedridden Musculoskeletal: atrophy - BLE Micro: Microbiology Date/Time Source Procedure Growth Status 07/30/20 17:15 Sputum Gram Stain - Final Resulted 07/30/20 17:15 Sputum Culture - Preliminary Gram Negative Dionte Resulted Accucheck: 139 Critical Care - Subjective ROS Limited/Unobtainable: Yes Interval Events: leukocytosis and low grade fever this am CXR 07/31 noted BP stable, off pressors, on Midodrine failing weaning, family declining trach currently on CPAP Condition: critical IV Access: PICC - RUE intact EKG Rhythm: Sinus Rhythm FI02: 30 Vent Support Breath Rate: 12 Vent Support Mode: AC Vent Tidal Volume: 600 Sputum Amount: Moderate PEEP: 0.0 PIP: 16 Fluids: 1/2 NS at 50 Tube Feeding Amount: 60 I&O: Intake and Output 07/31/20 08/01/20 19:00 07:00 Intake Total 1420 ml 1360 ml Output Total 1220 ml 715 ml Balance 200 ml 645 ml Free Water 150 ml IV Total 900 ml 550 ml Tube Feeding 420 ml 660 ml Other 100 ml Output Urine Total 1220 ml 715 ml # Bowel Movements 1 3 CXR: 07/31 1. Unchanged ETT 3.5 cm above lea. 2. Unchanged enteric tube with tip and proximal sideport below the gastroesophageal junction. 3. Mildly improved, left worse than right bibasilar patchy airspace consolidations. 4. Unchanged retrocardiac atelectasis without or with consolidation. 5. Unchanged low lung volumes with bronchovascular crowding. ET-Tube: 7.5 ET Position: 25 Yari Baugh NP Aug 01, 2020 10:11
[2020-08-01] MEDS ORDERED: Promethazine/Codeine 5ml UD GT PRN (10:14)
[2020-08-01] MEDS ORDERED: Miralax 17gm pkt GT PRN (10:15)
[2020-08-01] MEDS ORDERED: Nitroglycerin Subl 0.4mg tab SL PRN (10:15)
--- NOTE | 2020-08-01 10:58 | Nephrology Progress Note ---
Assessment/Plan Problem List: (1) Dehydration (2) MELANIE (acute kidney injury) (3) Renal failure (ARF), acute on chronic (4) Hypoxia (5) Acute encephalopathy (6) Electrolyte imbalance Assessment 79-year-old male is admitted with acute hypoxic respiratory failure most likely secondary to pneumonia and sepsis, UTI. Acute on chronic renal failure Dehydration Electrolyte imbalances, hypernatremia Hypoalbuminemia Diabetes type 2 History of congestive heart failure Hypertension Hyperlipemia Alzheimer's Previous COVID-19 infection in May 2020 Plan August 01: Remains intubated. Labs reviewed. Renal parameters stable. Continue per consultants. July 31: Remains on mechanical ventilation. Labs reviewed. Abnormal electrolytes addressed. Stable from renal standpoint of view. July 30: Remains intubated. Remains full code. Labs reviewed. Low phosphorus replaced. Continue to monitor renal parameters. Continue per consultants. July 29: Failed weaning. Remains intubated. Remains full closed. Labs reviewed. Stable from renal standpoint view. July 28: Remains in ICU. Remains full code. Labs are reviewed. Phosphorus supplement given. Continue per consultants. July 27: Remains in ICU. Full code. Labs reviewed. Remains intubated. Stable renal parameters. July 26: In ICU. Full code. Discussed with RN. Stable renal parameters. July 25: Seen in ICU. Discussed with FLORES Holliday. Flomax discontinued. Labs reviewed. Stable from renal standpoint of view. July 24: Seen in ICU. Discussed with FLORES Holliday. Remains on pressor. Electrolyte abnormalities noted and addressed. Continue per consultants. Patient remains full code. July 23: Seen in ICU. Discussed with FLORES Barrera. Blood pressure remains a little requiring pressors. Labs reviewed. Stable renal parameters. Continue per consultants. July 22: Remains intubated. Full code. Blood pressure borderline low. Will increase midodrine dose. Discussed with RN. Continue to monitor renal parameters and electrolytes. July 21: Intubated. Full code. Labs reviewed. Stable from renal standpoint of view. Continue per consultants. July 20: Remains intubated. Full code. Labs reviewed. Electrolytes within normal limit. Continue per consultants. July 19: In ICU. Remains intubated on ventilator. Remains full code. Low potassium addressed. Blood pressure fluctuating. Continue per consultants. July 18: Patient in ICU. Intubated on ventilator. On 6 mics of Levophed. Will give 100 cc albumin 25%. K-Phos IV ordered. Continue per consultants. Continue monitor renal parameters and electrolytes. July 17: Status unchanged. Transfer to [facility] for seizure. Stable from renal standpoint to view. Continue per consultants. July 16: Status quo. Labs reviewed. Renal parameters stable. Continue per consultants. July 15: On nonrebreather mask. Labs reviewed. Renal parameters stable.Continue per building services engineer. Clinically unchanged. July 14: On nonrebreather mask. Inflammatory markers gradually declining. Renal parameters stable. Continue per pulmonary. July 13: Remains on nonrebreather mask. Inflammatory markers remain elevated. Renal parameters somewhat stable. Continue per pulmonary and ID. Remains full code. July 12: Patient on nonrebreather mask. Labs noted. Serum creatinine down to 1.3. Continue per consultants. July 11: Patient on nonrebreather mask. Transfer to telemetry when seen this morning. Labs noted. Continue per consultants. Serum creatinine erin to 1.7. Continue to monitor renal parameters. Continue to monitor vancomycin level July 10: Patient is not doing well clinically. Mild respiratory distress. ABG noted. Somewhat hypoxic. CBC and chemistry panel ordered. Discussed with FLORES Cho. Will defer to pulmonary management to specialist. Continue per ID. Renal parameters remained stable as of July 09. July 09: Labs reviewed. Renal parameters stable. Continue per consultants. July 08: Labs reviewed. Potassium via NG tube ordered. IV fluids stopped. Continue per consultants. July 07: Labs reviewed. Low potassium and low phosphorus replaced. Continue per consultants. Remains stable from renal standpoint of view. July 06: Patient remains n.p.o. IV fluid down to 50 cc an hour. Potassium supplement intravenously ordered. Continue per consultants. Previously: Patient is n.p.o., will continue on IV fluid of D5W 75 cc an hour We will monitor electrolytes and renal parameters Avoid nephrotoxic's Start p.o. when he clears by speech therapist, meanwhile aspiration precautions Keep the blood pressure and blood sugar in check Per orders Subjective ROS Limited/Unobtainable: Yes Objective Objective Last 24 Hour Vital Signs Date Time Temp Pulse Resp B/P (MAP) Pulse Ox O2 Delivery O2 Flow Rate FiO2 08/01/20 08:25 30 08/01/20 08:25 94 08/01/20 06:54 75 12 30 08/01/20 06:00 70 12 11/21/20 06:00 99.8 73 12 90/49 (63) 100 08/01/20 05:00 100.0 75 15 94/47 (63) 100 08/01/20 04:00 Mechanical Ventilator Mechanical Ventilator 08/01/20 04:00 77 08/01/20 04:00 87 13 92/47 (62) 100 08/01/20 04:00 30 08/01/20 04:00 30 08/01/20 03:49 120 17 30 08/01/20 03:37 100.0 08/01/20 03:17 77 18 94/48 100 08/01/20 03:00 101.5 129 26 130/97 (108) 100 08/01/20 02:47 115 22 203/109 100 08/01/20 02:00 76 13 180/77 (111) 100 08/01/20 01:00 78 20 144/57 (86) 100 08/01/20 00:00 30 08/01/20 00:00 98.6 79 14 128/64 (85) 100 08/01/20 00:00 Mechanical Ventilator Mechanical Ventilator 08/01/20 00:00 100 07/31/20 23:05 73 14 30 07/31/20 23:00 76 13 126/64 (84) 100 07/31/20 22:00 72 13 122/60 (80) 100 07/31/20 21:00 72 14 138/62 (87) 100 07/31/20 20:00 99.0 72 13 123/59 (80) 100 07/31/20 20:00 30 07/31/20 20:00 Mechanical Ventilator Mechanical Ventilator 07/31/20 20:00 77 07/31/20 19:34 71 14 30 07/31/20 19:00 67 16 138/66 (90) 100 07/31/20 18:00 70 13 129/69 (89) 100 07/31/20 17:00 71 12 103/49 (67) 100 07/31/20 16:30 76 12 30 07/31/20 16:00 Mechanical Ventilator Mechanical Ventilator 07/31/20 16:00 99.6 73 13 122/57 (78) 100 07/31/20 16:00 82 07/31/20 16:00 30 07/31/20 15:29 72 12 30 07/31/20 15:00 72 17 121/59 (79) 97 07/31/20 14:15 30 07/31/20 14:00 79 20 138/86 (103) 100 07/31/20 13:06 69 24 30 07/31/20 13:00 68 24 139/70 (93) 100 07/31/20 12:00 Mechanical Ventilator Mechanical Ventilator 07/31/20 12:00 30 07/31/20 12:00 99.4 67 26 132/63 (86) 100 07/31/20 12:00 68 07/31/20 11:28 68 26 30 07/31/20 11:00 71 24 150/70 (96) 100 Intake and Output 07/31/20 08/01/20 19:00 07:00 Intake Total 1420 ml 1360 ml Output Total 1220 ml 715 ml Balance 200 ml 645 ml Free Water 150 ml IV Total 900 ml 550 ml Tube Feeding 420 ml 660 ml Other 100 ml Output Urine Total 1220 ml 715 ml # Bowel Movements 1 3 Laboratory Tests 08/01/20 04:41: POC Whole Blood Glucose 139H 08/01/20 05:20: White Blood Count 14.8H, Red Blood Count 3.15L, Hemoglobin 9.6L, Hematocrit 30.8L, Mean Corpuscular Volume 98, Mean Corpuscular Hemoglobin 30.6, Mean Corpuscular Hemoglobin Concent 31.3L, Red Cell Distribution Width 16.8H, Platelet Count 333, Mean Platelet Volume 6.6, Neutrophils (%) (Auto) , Lymphocytes (%) (Auto) , Monocytes (%) (Auto) , Eosinophils (%) (Auto) , Basophils (%) (Auto) , Differential Total Cells Counted 100, Neutrophils % (Manual) 87H, Lymphocytes % (Manual) 10L, Monocytes % (Manual) 3, Eosinophils % (Manual) 0, Basophils % (Manual) 0, Band Neutrophils 0, Platelet Estimate Adequate, Platelet Morphology Normal, Hypochromasia 1+, Anisocytosis 1+, Erythrocyte Sedimentation Rate 109H, Sodium Level 137, Potassium Level 4.1, Chloride Level 105, Carbon Dioxide Level 26, Anion Gap 6, Blood Urea Nitrogen 12, Creatinine 0.8, Estimat Glomerular Filtration Rate > 60, Glucose Level 138H, Calcium Level 7.8L, Phosphorus Level 2.7, Magnesium Level 2.1, Total Bilirubin 0.4, Aspartate Amino Transf (AST/SGOT) 14L, Alanine Aminotransferase (ALT/SGPT) 15, Alkaline Phosphatase 120H, C-Reactive Protein, Quantitative 7.7H, Total Protein 6.3L, Albumin 1.5L, Globulin 4.8, Albumin/Globulin Ratio 0.3L Height (Feet): 5 Height (Inches): 4.00 Weight (Pounds): 130 General Appearance: no apparent distress EENT: other - Intubated on ventilator Cardiovascular: normal rate Respiratory/Chest: decreased breath sounds Abdomen: soft Tino Connors MD Aug 01, 2020 10:58
--- NOTE | 2020-08-01 12:00 | NUR ---
NURSE NOTES: Pt was placed back to previous AC vent settings from CPAP/weaning since pt became restless. O2Sat is now 100%, however pt is warm to touch with Temp 101.5F axillary. Will administer PRN Tylenol as ordered.
[2020-08-01] MEDS: Acetaminophen 650mg/20.3ml GT PRN (12:29)
--- NOTE | 2020-08-01 12:30 | NUR ---
NURSE NOTES: Pt was administered Tylenol per PRN order for fever, with current Xrva=182.5F axillary. Remaining VS remain stable.
[2020-08-01] MEDS ORDERED: NS 275ml ONE (13:43)
[2020-08-01] MEDS ORDERED: 1/2 NS 1000ml IV ONE (13:43)
[2020-08-01] MEDS ORDERED: Tubing IV Secondary IV ONE (13:43)
--- NOTE | 2020-08-01 14:00 | NUR ---
NURSE NOTES: VS remain stable while pt is maintained on AC vent settings, with O2Sat at 100%.
--- NOTE | 2020-08-01 16:00 | NUR ---
NURSE NOTES: Blood culture is being processed per research laboratory manager. VS remain stable.
--- NOTE | 2020-08-01 17:00 | NUR ---
NURSE NOTES: Pt had BM x1, soft/pasty/light brown. Pt was cleaned, gown/bed linens were changed. Oral care was done and pt suctioned. Pt was repositioned for comfort with bilateral extremities elevated on pillows. Bilateral soft restraints remain in place for pt safety to prevent self-extubation; with skin/vascular extremity at restraint site within normal limits.
--- NOTE | 2020-08-01 17:26 | Internal Med Progress Note ---
Subjective Date of Service: Aug 01, 2020 Physician Name YaneliDano Attending Physician Ahsan Hodges MD Current Medications Medications (Trade) Dose Ordered Sig/Ankush Route PRN Reason Start Time Stop Time Status Last Admin Dose Admin Acetaminophen (Tylenol) 650 mg Q4H PRN GT Temp >100.5 08/01/20 12:30 08/31/20 12:29 08/01/20 12:29 Chlorhexidine Gluconate (Darcy-Hex 2%) 1 applic DAILY@2000 TOPIC 07/17/20 20:00 10/15/20 19:59 07/31/20 20:14 Dextrose (Dextrose 50%) 50 ml Q30M PRN IV Hypoglycemia 07/03/20 22:45 10/01/20 22:44 Heparin Sodium (Porcine) (Heparin 5000 units/ml) 5,000 units EVERY 12 HOURS SUBQ 07/03/20 21:00 08/17/20 20:59 08/01/20 09:31 Insulin Aspart (NovoLOG) EVERY 6 HOURS SUBQ 07/13/20 06:00 10/02/20 06:29 07/29/20 11:26 Lorazepam (Ativan 2mg/ml 1ml) 2 mg Q4H PRN IV For Anxiety 07/28/20 19:15 08/04/20 19:14 08/01/20 02:47 Meropenem 1 gm/ Sodium Chloride 55 ml @ 110 mls/hr Q8H IVPB 08/01/20 10:00 08/06/20 09:59 08/01/20 09:54 Midodrine (Pro-Amatine) 10 mg Q8H ORAL 07/22/20 17:00 10/20/20 16:59 08/01/20 09:32 Nitroglycerin (Ntg) 0.4 mg Q5M PRN SL Prn Chest Pain 08/01/20 10:15 08/31/20 10:09 Ondansetron HCl (Zofran) 4 mg Q6H PRN IVP Nausea & Vomiting 08/01/20 14:30 08/31/20 14:29 Pantoprazole (Protonix) 40 mg DAILY IV 07/18/20 09:00 08/17/20 08:59 08/01/20 09:32 Polyethylene Glycol (Miralax) 17 gm DAILYPRN PRN GT Constipation 08/01/20 10:15 08/31/20 10:14 Promethazine HCl/ Codeine (Phenergan with Codeine) 5 ml Q4H PRN GT For Cough 08/01/20 10:14 08/31/20 10:13 Sodium Chloride 1,000 ml @ 50 mls/hr Q20H IV 07/17/20 16:00 08/16/20 15:59 08/01/20 07:00 Allergies: Coded Allergies: No Known Allergies (Unverified , 04/30/12) ROS Limited/Unobtainable: Yes Subjective 79 YO M admitted with shortness of breath. Now pneumonia; previously COVID positive. Cover for Int med-Dr Hodges. ICU. Intubated and sedated. Objective Last Vital Signs Date Time Temp Pulse Resp B/P (MAP) Pulse Ox O2 Delivery O2 Flow Rate FiO2 08/01/20 16:00 73 12 110/59 (76) 100 08/01/20 16:00 30 08/01/20 16:00 Mechanical Ventilator Mechanical Ventilator 08/01/20 12:59 99.0 Laboratory Tests Test 08/01/20 04:41 08/01/20 05:20 08/01/20 10:35 POC Whole Blood Glucose 139 MG/DL (74-106) H White Blood Count 14.8 K/UL (4.8-10.8) H Red Blood Count 3.15 M/UL (4.70-6.10) L Hemoglobin 9.6 G/DL (14.2-18.0) L Hematocrit 30.8 % (42.0-52.0) L Mean Corpuscular Volume 98 FL (80-99) Mean Corpuscular Hemoglobin 30.6 PG (27.0-31.0) Mean Corpuscular Hemoglobin Concent 31.3 G/DL (32.0-36.0) L Red Cell Distribution Width 16.8 % (11.6-14.8) H Platelet Count 333 K/UL (150-450) Mean Platelet Volume 6.6 FL (6.5-10.1) Neutrophils (%) (Auto) % (45.0-75.0) Lymphocytes (%) (Auto) % (20.0-45.0) Monocytes (%) (Auto) % (1.0-10.0) Eosinophils (%) (Auto) % (0.0-3.0) Basophils (%) (Auto) % (0.0-2.0) Differential Total Cells Counted 100 Neutrophils % (Manual) 87 % (45-75) H Lymphocytes % (Manual) 10 % (20-45) L Monocytes % (Manual) 3 % (1-10) Eosinophils % (Manual) 0 % (0-3) Basophils % (Manual) 0 % (0-2) Band Neutrophils 0 % (0-8) Platelet Estimate Adequate Platelet Morphology Normal Hypochromasia 1+ Anisocytosis 1+ Erythrocyte Sedimentation Rate 109 MM/HR (0-20) H Sodium Level 137 MMOL/L (136-145) Potassium Level 4.1 MMOL/L (3.5-5.1) Chloride Level 105 MMOL/L (98-107) Carbon Dioxide Level 26 MMOL/L (21-32) Anion Gap 6 mmol/L (5-15) Blood Urea Nitrogen 12 mg/dL (7-18) Creatinine 0.8 MG/DL (0.55-1.30) Estimat Glomerular Filtration Rate > 60 mL/min (>60) Glucose Level 138 MG/DL (74-106) H Calcium Level 7.8 MG/DL (8.5-10.1) L Phosphorus Level 2.7 MG/DL (2.5-4.9) Magnesium Level 2.1 MG/DL (1.8-2.4) Total Bilirubin 0.4 MG/DL (0.2-1.0) Aspartate Amino Transf (AST/SGOT) 14 U/L (15-37) L Alanine Aminotransferase (ALT/SGPT) 15 U/L (12-78) Alkaline Phosphatase 120 U/L (46-116) H C-Reactive Protein, Quantitative 7.7 mg/dL (0.00-0.90) H Total Protein 6.3 G/DL (6.4-8.2) L Albumin 1.5 G/DL (3.4-5.0) L Globulin 4.8 g/dL Albumin/Globulin Ratio 0.3 (1.0-2.7) L Arterial Blood pH 7.472 (7.350-7.450) Arterial Blood Partial Pressure CO2 31.5 mmHg (35.0-45.0) L Arterial Blood Partial Pressure O2 65.2 mmHg (75.0-100.0) L Arterial Blood HCO3 22.5 mmol/L (22.0-26.0) Arterial Blood Oxygen Saturation 93.7 % (95-100) L Arterial Blood Base Excess -0.6 (-2-2) Richard Test Positive Microbiology Date/Time Source Procedure Growth Status 07/30/20 17:15 Sputum Gram Stain - Final Resulted 07/30/20 17:15 Sputum Culture - Preliminary Gram Negative Dionte Resulted Intake and Output 07/31/20 08/01/20 19:00 07:00 Intake Total 1420 ml 1420 ml Output Total 1220 ml 755 ml Balance 200 ml 665 ml Free Water 150 ml IV Total 900 ml 550 ml Tube Feeding 420 ml 720 ml Other 100 ml Output Urine Total 1220 ml 755 ml # Bowel Movements 1 3 Objective PHYSICAL EXAMINATION: GENERAL: The patient awake with deep stimuli, open his eyes, however, cannot follow commands. The patient is on a Ventimask at this time, chronically ill-appearing. HEAD AND NECK: Pupils are equal and reactive to light. Anicteric. NECK: Supple. No JVD. LUNGS: Mech vent; wheezing, rhonchi, and decreased air in bases. HEART: S1, S2. Regular rhythm. Distant heart sounds. No murmur or gallop. ABDOMEN: Soft, nondistended, nontender. Positive bowel sounds. EXTREMITIES: No cyanosis, clubbing, or edema. NEUROLOGIC: Very limited secondary to the patient's status, cannot follow commands. Opens his eyes with deep stimuli and moving extremities spontaneously. Assessment/Plan Assessment/Plan ASSESSMENT: 1. Acute hypoxemic respiratory failure, most likely secondary to pneumonia and sepsis. 2. Sepsis secondary to urinary tract infection and pneumonia. 3. pneumonia=MRSA; ESBL E. coli 4. Acute kidney injury on chronic renal insufficiency. 5. Dehydration. 6. History of chronic congestive heart failure. 7. Diabetes type 2. 8. Dyslipidemia. 9. Hypertension. 10. Alzheimer's disease. 11. COVID 19 previous positive PLAN: 1. ICU 2. Dr. Carreno,=Pulmonary Critical Care; follow mech vent recs 3. Dr. Cho = Inf Dis. 4. IV= D5W due to the hypernatremia and dehydration. 5. antibiotics = linezolid and meropenem; S/P micafungin 6. Code status is full code. 7. DVT prophylaxis is heparin subcutaneous. Dano Groves MD 21, 2020 17:26
--- NOTE | 2020-08-01 19:00 | NUR ---
NURSE HAND-OFF REPORT: Latest Vital Signs: Temperature 99.5 , Pulse 75 , B/P 127 /72 , Respiratory Rate 13 , O2 SAT 100 , Mechanical Ventilator ETT 7.5 at 25cm/lipline with vent settings AC12, VT600, Peep 0, FIO2 30% at 100% O2Sat. Vital Sign Comment: Pt is on Midodrine; off pressors. EKG Rhythm: Sinus Rhythm Rhythm change?: N Notified?: Grecia Rivera MD Response: Latest Gonzalez Fall Score: 50 Fall Risk: High Risk Safety Measures: Call light Within Reach, Bed Alarm Zone 2, Side Rails Side Rails x3, Bed position Low and Locked. Fall Precautions: Yellow Socks Yellow Gown Door Sign Patient Fall Education Report given to Catherine TANNER. Endorsed plan of care.
--- NOTE | 2020-08-01 19:15 | NUR ---
NURSE NOTES: Received report from FLORES Barrera Pt is awake, does not follow commands. Orally intubated on 07/17: ETT 7.5 at 25cm lipline with vent settings AC12, VT600, FIO2 30%, Peep 0, at 100% O2Sat. NSR on radiographer cardiac catheterization. Left nare NGT with feeding Glucerna 1.2 at goal rate of 60mL/hour with zero residual. Wiley catheter is present, draining clear/yellow urine. Skin alterations present including bilateral buttocks and bilateral heels redness. Pt is on pressure release mattress, P200. Bilateral soft wrist restraints are present for pt safety. Skin/vascular integrity at restraint sites remain within normal limits. Safety measure observed and no acute distress noted. Will continue to monitor.
[2020-08-01] MEDS: Dyna-Hex 2% Top Sol 2oz TOPIC SCH (20:21)
--- NOTE | 2020-08-01 21:00 | NUR ---
NURSE NOTES: PM meds given Turned and repositioned Oral care provided
--- NOTE | 2020-08-01 21:48 | Cardiac Electrophysiology PN ---
Assessment/Plan Assessment/Plan 1. Accelerated junctional rhythm. Ruled out for SC Echo showed ejection fraction of 55%. 2. Long run of 31 beats of Nonsustained VT on 07/14/2020. Cardiac cath after stabilization. 3. Jose 30, Asystole while on the Vent due to resp failure/ likely mucus plug . S/P Code 4. Respiratory failure, on antibiotic and intubated on the vent Failed weaning. Family refused tracheostomy 5. Septic shock. Off Levophed and on Midodrine 10 tid 6. History of previous COVID infection in May 2020 and active Covid in isolation Now negative again 7. Dementia. SHAYY RN and Dr hernandez Subjective Subjective In ICU on the Vent Fio2 30%, PEEP 5 Had 31 beats of VT on 07/14/20 at 16:46 and 5 beats 07/19/20 Coded on 07/23/20 as sat dropped to 20% and got jose 30s and PEA and pulseless Off Levophed on Midodrine 10 tid Covid test was negative. Failed weaning again. Family refusing tracheostomy In SR Objective Last 24 Hour Vital Signs Date Time Temp Pulse Resp B/P (MAP) Pulse Ox O2 Delivery O2 Flow Rate FiO2 08/01/20 21:00 84 13 120/64 (82) 100 08/01/20 20:00 Mechanical Ventilator Mechanical Ventilator Mechanical Ventilator 08/01/20 20:00 78 12 121/62 (81) 100 08/01/20 20:00 78 08/01/20 20:00 30 08/01/20 19:00 75 13 127/72 (90) 100 08/01/20 18:50 77 13 30 08/01/20 18:00 74 12 113/61 (78) 100 08/01/20 17:34 77 12 100 Mechanical Ventilator 30 08/01/20 17:00 99.5 70 12 102/56 (71) 100 08/01/20 16:00 73 12 110/59 (76) 100 08/01/20 16:00 73 08/01/20 16:00 30 08/01/20 16:00 Mechanical Ventilator Mechanical Ventilator 08/01/20 15:49 76 12 30 08/01/20 15:00 69 12 94/64 (74) 100 08/01/20 14:00 78 13 94/58 (70) 100 08/01/20 13:00 99.0 87 18 116/63 (80) 100 08/01/20 12:59 99.0 08/01/20 12:00 101.5 83 27 145/72 (96) 100 08/01/20 12:00 30 08/01/20 12:00 86 08/01/20 12:00 30 08/01/20 12:00 Mechanical Ventilator Mechanical Ventilator 08/01/20 11:00 78 28 127/58 (81) 100 08/01/20 10:36 83 26 30 08/01/20 10:00 84 23 139/97 (111) 97 08/01/20 09:00 86 29 122/58 (79) 100 08/01/20 08:25 30 08/01/20 08:25 94 08/01/20 08:00 99.9 86 16 115/53 (73) 95 08/01/20 08:00 84 08/01/20 08:00 Mechanical Ventilator Mechanical Ventilator 08/01/20 08:00 30 08/01/20 07:00 71 12 124/63 (83) 100 08/01/20 06:54 75 12 30 08/01/20 06:00 70 12 08/01/20 06:00 99.8 73 12 90/49 (63) 100 08/01/20 05:00 100.0 75 15 94/47 (63) 100 08/01/20 04:00 Mechanical Ventilator Mechanical Ventilator 08/01/20 04:00 77 08/01/20 04:00 87 13 92/47 (62) 100 08/01/20 04:00 30 08/01/20 04:00 30 08/01/20 03:49 120 17 30 08/01/20 03:37 100.0 08/01/20 03:17 77 18 94/48 100 08/01/20 03:00 101.5 129 26 130/97 (108) 100 08/01/20 02:47 115 22 203/109 100 08/01/20 02:00 76 13 180/77 (111) 100 08/01/20 01:00 78 20 144/57 (86) 100 08/01/20 00:00 30 08/01/20 00:00 98.6 79 14 128/64 (85) 100 08/01/20 00:00 Mechanical Ventilator Mechanical Ventilator 08/01/20 00:00 100 07/31/20 23:05 73 14 30 11/20/20 23:00 76 13 126/64 (84) 100 07/31/20 22:00 72 13 122/60 (80) 100 Intake and Output 07/31/20 08/01/20 19:00 07:00 Intake Total 1420 ml 1420 ml Output Total 1220 ml 755 ml Balance 200 ml 665 ml Free Water 150 ml IV Total 900 ml 550 ml Tube Feeding 420 ml 720 ml Other 100 ml Output Urine Total 1220 ml 755 ml # Bowel Movements 1 3 Laboratory Tests Test 08/01/20 04:41 08/01/20 05:20 08/01/20 10:35 POC Whole Blood Glucose 139 MG/DL (74-106) H White Blood Count 14.8 K/UL (4.8-10.8) H Red Blood Count 3.15 M/UL (4.70-6.10) L Hemoglobin 9.6 G/DL (14.2-18.0) L Hematocrit 30.8 % (42.0-52.0) L Mean Corpuscular Volume 98 FL (80-99) Mean Corpuscular Hemoglobin 30.6 PG (27.0-31.0) Mean Corpuscular Hemoglobin Concent 31.3 G/DL (32.0-36.0) L Red Cell Distribution Width 16.8 % (11.6-14.8) H Platelet Count 333 K/UL (150-450) Mean Platelet Volume 6.6 FL (6.5-10.1) Neutrophils (%) (Auto) % (45.0-75.0) Lymphocytes (%) (Auto) % (20.0-45.0) Monocytes (%) (Auto) % (1.0-10.0) Eosinophils (%) (Auto) % (0.0-3.0) Basophils (%) (Auto) % (0.0-2.0) Differential Total Cells Counted 100 Neutrophils % (Manual) 87 % (45-75) H Lymphocytes % (Manual) 10 % (20-45) L Monocytes % (Manual) 3 % (1-10) Eosinophils % (Manual) 0 % (0-3) Basophils % (Manual) 0 % (0-2) Band Neutrophils 0 % (0-8) Platelet Estimate Adequate Platelet Morphology Normal Hypochromasia 1+ Anisocytosis 1+ Erythrocyte Sedimentation Rate 109 MM/HR (0-20) H Sodium Level 137 MMOL/L (136-145) Potassium Level 4.1 MMOL/L (3.5-5.1) Chloride Level 105 MMOL/L (98-107) Carbon Dioxide Level 26 MMOL/L (21-32) Anion Gap 6 mmol/L (5-15) Blood Urea Nitrogen 12 mg/dL (7-18) Creatinine 0.8 MG/DL (0.55-1.30) Estimat Glomerular Filtration Rate > 60 mL/min (>60) Glucose Level 138 MG/DL (74-106) H Calcium Level 7.8 MG/DL (8.5-10.1) L Phosphorus Level 2.7 MG/DL (2.5-4.9) Magnesium Level 2.1 MG/DL (1.8-2.4) Total Bilirubin 0.4 MG/DL (0.2-1.0) Aspartate Amino Transf (AST/SGOT) 14 U/L (15-37) L Alanine Aminotransferase (ALT/SGPT) 15 U/L (12-78) Alkaline Phosphatase 120 U/L (46-116) H C-Reactive Protein, Quantitative 7.7 mg/dL (0.00-0.90) H Total Protein 6.3 G/DL (6.4-8.2) L Albumin 1.5 G/DL (3.4-5.0) L Globulin 4.8 g/dL Albumin/Globulin Ratio 0.3 (1.0-2.7) L Arterial Blood pH 7.472 (7.350-7.450) Arterial Blood Partial Pressure CO2 31.5 mmHg (35.0-45.0) L Arterial Blood Partial Pressure O2 65.2 mmHg (75.0-100.0) L Arterial Blood HCO3 22.5 mmol/L (22.0-26.0) Arterial Blood Oxygen Saturation 93.7 % (95-100) L Arterial Blood Base Excess -0.6 (-2-2) Richard Test Positive Microbiology Date/Time Source Procedure Growth Status 07/30/20 17:15 Sputum Gram Stain - Final Resulted 07/30/20 17:15 Sputum Culture - Preliminary Gram Negative Dionte Resulted Objective HEAD AND NECK: No JVD. Orally intubated LUNGS: Coarse rhonchi. CARDIOVASCULAR: Irregular S1 and S2 with no gallop. ABDOMEN: Soft. EXTREMITIES: No pitting edema. Klever Matt MD Aug 01, 2020 21:48
[2020-08-02] VITALS (29 sets, daily range): BP systolic 80–185; BP diastolic 47–92
[2020-08-02] MEDS: Midodrine 10mg tab ORAL SCH ×3 (01:00→17:19)
[2020-08-02] MEDS: Meropenem 1 GM in NS 55 ML IVPB SCH ×3 (01:37→17:19)
--- NOTE | 2020-08-02 03:00 | NUR ---
NURSE NOTES: AM care given. Hot to touch. Temp 100.5. Tylenol given. Soiled gown, linens, and sliders. Large BM noted. Sacral healed. Optiform applied for prophylaxis. Safety measures observed and no acute distress noted. Will continue to monitor.
[2020-08-02] MEDS: Acetaminophen 650mg/20.3ml GT PRN ×3 (03:16→20:54)
--- NOTE | 2020-08-02 05:00 | NUR ---
NURSE NOTES: Temp down to 99.7.
[2020-08-02] MEDS: NovoLOG Insulin Flexpen SUBQ SCH ×3 (05:04→17:57)
[2020-08-02 07:05] LABS: BASOPHILS % (AUTO) 0.6 % (0.0-2.0); EOSINOPHILS % (AUTO) 0.2 % (0.0-3.0); HEMATOCRIT 30.7 % (42.0-52.0); HEMOGLOBIN 9.5 G/DL (14.2-18.0); LYMPHOCYTES % (AUTO) 10.9 % (20.0-45.0); MEAN CORPUSCULAR VOLUME 98 FL (80-99); MONOCYTES % (AUTO) 4.9 % (1.0-10.0); NEUTROPHILS % (AUTO) 83.3 % (45.0-75.0); PLATELET COUNT 307 K/UL (150-450); RED BLOOD COUNT 3.14 M/UL (4.70-6.10); RED CELL DISTRIBUTION WIDTH 17.3 % (11.6-14.8); WHITE BLOOD COUNT 16.3 K/UL (4.8-10.8)
[2020-08-02 07:16] LABS: ANION GAP 9 mmol/L (5-15); BLOOD UREA NITROGEN 12 mg/dL (7-18); CALCIUM 7.7 MG/DL (8.5-10.1); CARBON DIOXIDE 24 MMOL/L (21-32); CHLORIDE 104 MMOL/L (98-107); CREATININE 0.9 MG/DL (0.55-1.30); POTASSIUM 3.7 MMOL/L (3.5-5.1); SODIUM 137 MMOL/L (136-145)
--- NOTE | 2020-08-02 08:28 | NUR ---
RD ASSESSMENT & RECOMMENDATIONS SEE CARE ACTIVITY FOR COMPLETE ASSESSMENT DAILY ESTIMATED NEEDS: Needs based on DM, wound, critical care 59.5kg 22-28 kcals/kg 4436-9060 total kcals 1.25-2 g protein/kg 74-119 g total protein 25-30 mL/kg 3475-6508 total fluid mLs NUTRITION DIAGNOSIS: * Swallowing difficulty R/T dysphagia as evidenced by CASTING CHIPPER fahad, recs for NGT feeds, now s/p oral intubation (07/17), s/p code blue (07/23) and remains intubated, on pressor support, currently held, cont on NGT feeds. * Increased kcal and pro needs r/t wound healing as evidenced by sacral pressure injury stage 2. CURRENT DIET: NPO CURRENT TF: (goal of Glucerna 1.2 @ 60ml/hr x24 hrs) ENTERAL NUTRITION RECOMMENDATIONS: Glucerna 1.2 @ 55ml/hr x24 hrs to provide 1320ml, 1584kcal, 79g prot, 1063ml free water - LOWER goal rate to 55ml/hr x 24 hrs s/p intubation w/ decreased kcal needs - HOB over 30 degrees/ H2O flush per MD ADDITIONAL RECOMMENDATIONS: * Calibrated bedscale wt for accurate CBW * Monitor hemodynamic stability: s/p code blue (07/23), NE currently held * Monitor lytes, replete as needed * Wound care: add Sushil BID via PEG add Vit C 250mg QD . .
[2020-08-02] MEDS: Heparin 5000 units/ml inj SUBQ SCH ×2 (08:43→20:33)
[2020-08-02] MEDS: Pantoprazole Inj IV SCH (08:44)
--- NOTE | 2020-08-02 08:53 | Diagnostic Imaging Report ---
EXAM: XR Chest, 1 View CLINICAL HISTORY: SOB TECHNIQUE: Frontal view of the chest. COMPARISON: Chest radiograph July 31, 2020 FINDINGS/IMPRESSION: Endotracheal tube terminates 3.8 cm above the lea. Feeding tube terminates in the stomach. Mild advancement is recommended at the site port is at the level of the GE junction. Small bilateral pleural effusions with moderate vascular congestion. Airspace consolidation in the left lower lung field may represent atelectasis however, correlate for infiltrate. This is improving when compared to the prior study. Cardiomegaly. Calcified aorta. Right total shoulder old plasty.
--- NOTE | 2020-08-02 09:11 | NUR ---
RESPIRATORY NOTES PT placed on SBT - CPAP 0, PS 8. PT does not display any current signs of respiratory distress. FLORES corona. Will continue to monitor.
--- NOTE | 2020-08-02 09:30 | NUR ---
NURSE NOTES: LATE ENTRY: NP. JOHNSON HERE TO SEE PT. WAS INFORMED PT WEANING ON CPAP 0, PS 8. CLARIFICATION OF EXTUBATION FOR THIS PT, STATED PT NOTED EXTUBATED TODAY. FAMILY REFUSING TRACH, POSSIBLE BIOETHICS FOR DECISION.
--- NOTE | 2020-08-02 10:10 | NUR ---
NURSE NOTES: LATE ENTRY: TECH HERE DO CXR. PT IN NO ACUTE DISTRESS. WILL CONTINUE TO MONITOR PT.
--- NOTE | 2020-08-02 10:38 | Pulmonolgy Critical Care Note ---
Critical Care - Asmt/Plan Assessment/Plan: ASSESSMENT Acute hypoxemic respiratory failure , requiring intubation ( initially 100% NRM) Septic shock Pneumonia , possible aspiration Probable UTI Hx of COVID 19 05/20/20 Dysphagia MELANIE-resolved Hypernatremia History of CVA Diabetes mellitus History of hypertension Alzheimer dementia PLAN OF CARE ICU vent support pulm toilet fup with CXR and ABG failing weaning, family declining trach off pressors, on Midodrine ECHO with pEF, r/o for AR cardio on board abx as per ID recs, DVT and GI prophylaxis strict aspiration precaution gentle IVF monitor renal parameters, lytes , correct electrolytes as needed ,avoid nephrotoxic BS management with SSI supportive care remains FC case discussed and evaluated by supervising physician Critical Care - Objective Last 24 Hour Vital Signs Date Time Temp Pulse Resp B/P (MAP) Pulse Ox O2 Delivery O2 Flow Rate FiO2 08/02/20 07:25 84 12 30 08/02/20 07:00 79 13 123/76 (92) 100 08/02/20 06:30 71 12 08/02/20 06:00 71 12 108/83 (91) 100 08/02/20 05:00 99.7 90 19 103/86 (92) 08/02/20 04:00 30 08/02/20 04:00 Mechanical Ventilator Mechanical Ventilator Mechanical Ventilator 08/02/20 04:00 100.3 105 18 127/83 (98) 08/02/20 04:00 105 08/02/20 03:46 100.3 08/02/20 03:46 103.4 08/02/20 03:00 100.5 108 33 141/92 (108) 100 08/02/20 02:30 97 17 30 08/02/20 02:00 101 15 118/65 (82) 100 08/02/20 01:00 98 15 140/77 (98) 100 08/02/20 00:00 Mechanical Ventilator Mechanical Ventilator Mechanical Ventilator 08/02/20 00:00 97 08/02/20 00:00 30 08/02/20 00:00 97 16 115/67 (83) 100 08/01/20 23:00 92 17 149/75 (99) 100 08/01/20 22:30 92 17 30 08/01/20 22:00 88 15 121/66 (84) 100 08/01/20 21:00 84 13 120/64 (82) 100 08/01/20 20:00 Mechanical Ventilator Mechanical Ventilator Mechanical Ventilator 08/01/20 20:00 99.6 78 12 121/62 (81) 100 08/01/20 20:00 78 08/01/20 20:00 30 08/01/20 19:00 75 13 127/72 (90) 100 08/01/20 18:50 77 13 30 08/01/20 18:00 74 12 113/61 (78) 100 08/01/20 17:34 77 12 100 Mechanical Ventilator 30 08/01/20 17:00 99.5 70 12 102/56 (71) 100 08/01/20 16:00 73 12 110/59 (76) 100 08/01/20 16:00 73 08/01/20 16:00 30 08/01/20 16:00 Mechanical Ventilator Mechanical Ventilator 08/01/20 15:49 76 12 30 08/01/20 15:00 69 12 94/64 (74) 100 08/01/20 14:00 78 13 94/58 (70) 100 08/01/20 13:00 99.0 87 18 116/63 (80) 100 08/01/20 12:59 99.0 08/01/20 12:00 101.5 83 27 145/72 (96) 100 08/01/20 12:00 30 08/01/20 12:00 86 08/01/20 12:00 30 08/01/20 12:00 Mechanical Ventilator Mechanical Ventilator 08/01/20 11:00 78 28 127/58 (81) 100 08/01/20 10:36 83 26 30 Objective: General Appearance: no apparent distress, intubated on vent AC 600-12-30 currently on CPAP Lines, tubes and drains: R PICC intact HEENT: normocephalic, atraumatic, anicteric, NGT , OP with ET in place, intact Respiratory/Chest: few scattered rhonchi Cardiovascular/Chest: normal peripheral pulses, SR Abdomen: normal bowel sounds, non tender, soft : Wiley Extremities: no calf tenderness, normal capillary refill Neurologic: abnormal gait /bedridden Musculoskeletal: atrophy - BLE Micro: Microbiology Date/Time Source Procedure Growth Status 07/30/20 17:15 Sputum Gram Stain - Final Complete 07/30/20 17:15 Sputum Culture - Final Pseudomonas Aeruginosa Escherichia Coli - Esbl Complete Accucheck: 138 Critical Care - Subjective ROS Limited/Unobtainable: Yes Interval Events: leukocytosis with trend up this am, fever CXR 08/02 noted off pressors, on Midodrine failing weaning, family declining trach Condition: critical IV Access: PICC - RUE intact EKG Rhythm: Sinus Rhythm FI02: 30 Vent Support Breath Rate: 12 Vent Support Mode: AC Vent Tidal Volume: 600 Sputum Amount: Large PEEP: 0.0 PIP: 36 Fluids: 1/2 NS at 50 Tube Feeding Amount: 60 I&O: Intake and Output 08/01/20 08/02/20 19:00 07:00 Intake Total 1540 ml 1270 ml Output Total 630 ml 600 ml Balance 910 ml 670 ml Free Water 180 ml IV Total 820 ml 550 ml Tube Feeding 540 ml 720 ml Output Urine Total 630 ml 600 ml # Bowel Movements 3 3 CXR: CXR 08/02 Endotracheal tube terminates 3.8 cm above the lea. Feeding tube terminates in the stomach. Mild advancement is recommended at the site port is at the level of the GE junction. Small bilateral pleural effusions with moderate vascular congestion. Airspace consolidation in the left lower lung field may represent atelectasis however, correlate for infiltrate. This is improving when compared to the prior study. Cardiomegaly. Calcified aorta. Right total shoulder old plasty. ET-Tube: 7.5 ET Position: 25 Yari Baugh NP Aug 02, 2020 10:38
[2020-08-02] MEDS ORDERED: Albuterol/Ipratropium 3ml neb HHN PRN (10:45)
--- NOTE | 2020-08-02 12:14 | Nephrology Progress Note ---
Assessment/Plan Problem List: (1) Dehydration (2) MELANIE (acute kidney injury) (3) Renal failure (ARF), acute on chronic (4) Hypoxia (5) Acute encephalopathy (6) Electrolyte imbalance Assessment 79-year-old male is admitted with acute hypoxic respiratory failure most likely secondary to pneumonia and sepsis, UTI. Acute on chronic renal failure Dehydration Electrolyte imbalances, hypernatremia Hypoalbuminemia Diabetes type 2 History of congestive heart failure Hypertension Hyperlipemia Alzheimer's Previous COVID-19 infection in May 2020 Plan August 02: Patient seen and discussed with RN. Labs reviewed. Remains intubated. Trial of weaning this being attempted. Continue per consultants. August 01: Remains intubated. Labs reviewed. Renal parameters stable. Continue per consultants. July 31: Remains on mechanical ventilation. Labs reviewed. Abnormal electrolytes addressed. Stable from renal standpoint of view. July 30: Remains intubated. Remains full code. Labs reviewed. Low phosphorus replaced. Continue to monitor renal parameters. Continue per consultants. July 29: Failed weaning. Remains intubated. Remains full closed. Labs rev iewed. Stable from renal standpoint view. July 28: Remains in ICU. Remains full code. Labs are reviewed. Phosphorus supplement given. Continue per consultants. July 27: Remains in ICU. Full code. Labs reviewed. Remains intubated. Stable renal parameters. July 26: In ICU. Full code. Discussed with RN. Stable renal parameters. July 25: Seen in ICU. Discussed with FLORES Holliday. Flomax discontinued. Labs reviewed. Stable from renal standpoint of view. July 24: Seen in ICU. Discussed with FLORES Holliday. Remains on pressor. Electrolyte abnormalities noted and addressed. Continue per consultants. Patient remains full code. July 23: Seen in ICU. Discussed with FLORES Barrera. Blood pressure remains a little requiring pressors. Labs reviewed. Stable renal parameters. Continue per consultants. July 22: Remains intubated. Full code. Blood pressure borderline low. Will increase midodrine dose. Discussed with RN. Continue to monitor renal parameters and electrolytes. July 21: Intubated. Full code. Labs reviewed. Stable from renal standpoint of view. Continue per consultants. July 20: Remains intubated. Full code. Labs reviewed. Electrolytes within normal limit. Continue per consultants. July 19: In ICU. Remains intubated on ventilator. Remains full code. Low potassium addressed. Blood pressure fluctuating. Continue per consultants. July 18: Patient in ICU. Intubated on ventilator. On 6 mics of Levophed. Will give 100 cc albumin 25%. K-Phos IV ordered. Continue per consultants. Continue monitor renal parameters and electrolytes. July 17: Status unchanged. Transfer to [facility] for seizure. Stable from renal standpoint to view. Continue per consultants. July 16: Status quo. Labs reviewed. Renal parameters stable. Continue per consultants. July 15: On nonrebreather mask. Labs reviewed. Renal parameters stable.Cont inue per [employer]. Clinically unchanged. July 14: On nonrebreather mask. Inflammatory markers gradually declining. Renal parameters stable. Continue per pulmonary. July 13: Remains on nonrebreather mask. Inflammatory markers remain elevated . Renal parameters somewhat stable. Continue per pulmonary and ID. Remains full code. July 12: Patient on nonrebreather mask. Labs noted. Serum creatinine down to 1.3. Continue per consultants. July 11: Patient on nonrebreather mask. Transfer to telemetry when seen this morning. Labs noted. Continue per consultants. Serum creatinine erin to 1.7. Continue to monitor renal parameters. Continue to monitor vancomycin level July 10: Patient is not doing well clinically. Mild respiratory distress. ABG noted. Somewhat hypoxic. CBC and chemistry panel ordered. Discussed with FLORES Cho. Will defer to pulmonary management to specialist. Continue per ID. Renal parameters remained stable as of July 09. July 09: Labs reviewed. Renal parameters stable. Continue per consultants. July 08: Labs reviewed. Potassium via NG tube ordered. IV fluids stopped. Continue per consultants. July 07: Labs reviewed. Low potassium and low phosphorus replaced. Continue per consultants. Remains stable from renal standpoint of view. July 06: Patient remains n.p.o. IV fluid down to 50 cc an hour. Potassium supplement intravenously ordered. Continue per consultants. Previously: Patient is n.p.o., will continue on IV fluid of D5W 75 cc an hour We will monitor electrolytes and renal parameters Avoid nephrotoxic's Start p.o. when he clears by speech therapist, meanwhile aspiration precautions Keep the blood pressure and blood sugar in check Per orders Subjective ROS Limited/Unobtainable: Yes Objective Objective Last 24 Hour Vital Signs Date Time Temp Pulse Resp B/P (MAP) Pulse Ox O2 Delivery O2 Flow Rate FiO2 08/02/20 12:00 104 27 185/84 (117) 100 08/02/20 11:00 93 24 108/83 (91) 100 08/02/20 10:00 100.5 89 24 142/69 (93) 100 08/02/20 09:00 87 14 132/71 (91) 100 08/02/20 08:00 85 08/02/20 08:00 101.5 88 17 119/58 (78) 100 08/02/20 07:25 84 12 30 08/02/20 07:00 79 13 123/76 (92) 100 08/02/20 06:30 71 12 08/02/20 06:00 71 12 108/83 (91) 100 08/02/20 05:00 99.7 90 19 103/86 (92) 08/02/20 04:00 30 08/02/20 04:00 Mechanical Ventilator Mechanical Ventilator Mechanical Ventilator 08/02/20 04:00 100.3 105 18 127/83 (98) 08/02/20 04:00 105 08/02/20 03:46 100.3 08/02/20 03:46 103.4 08/02/20 03:00 100.5 108 33 141/92 (108) 100 08/02/20 02:30 97 17 30 08/02/20 02:00 101 15 118/65 (82) 100 08/02/20 01:00 98 15 140/77 (98) 100 08/02/20 00:00 Mechanical Ventilator Mechanical Ventilator Mechanical Ventilator 08/02/20 00:00 97 08/02/20 00:00 30 08/02/20 00:00 97 16 115/67 (83) 100 08/01/20 23:00 92 17 149/75 (99) 100 08/01/20 22:30 92 17 30 08/01/20 22:00 88 15 121/66 (84) 100 08/01/20 21:00 84 13 120/64 (82) 100 08/01/20 20:00 Mechanical Ventilator Mechanical Ventilator Mechanical Ventilator 08/01/20 20:00 99.6 78 12 121/62 (81) 100 08/01/20 20:00 78 08/01/20 20:00 30 08/01/20 19:00 75 13 127/72 (90) 100 08/01/20 18:50 77 13 30 1121/20 18:00 74 12 113/61 (78) 100 08/01/20 17:34 77 12 100 Mechanical Ventilator 30 08/01/20 17:00 99.5 70 12 102/56 (71) 100 08/01/20 16:00 73 12 110/59 (76) 100 08/01/20 16:00 73 08/01/20 16:00 30 08/01/20 16:00 Mechanical Ventilator Mechanical Ventilator 08/01/20 15:49 76 12 30 08/01/20 15:00 69 12 94/64 (74) 100 08/01/20 14:00 78 13 94/58 (70) 100 08/01/20 13:00 99.0 87 18 116/63 (80) 100 08/01/20 12:59 99.0 Intake and Output 08/01/20 08/02/20 19:00 07:00 Intake Total 1540 ml 1270 ml Output Total 630 ml 600 ml Balance 910 ml 670 ml Free Water 180 ml IV Total 820 ml 550 ml Tube Feeding 540 ml 720 ml Output Urine Total 630 ml 600 ml # Bowel Movements 3 3 Current Medications Medications (Trade) Dose Ordered Sig/Ankush Route PRN Reason Start Time Stop Time Status Last Admin Dose Admin Acetaminophen (Tylenol) 650 mg Q4H PRN GT Temp >100.5 08/01/20 12:30 08/31/20 12:29 08/02/20 03:16 Albuterol/ Ipratropium (Albuterol/ Ipratropium) 3 ml Q4HRT PRN HHN sob 08/02/20 10:45 08/07/20 10:44 Chlorhexidine Gluconate (Darcy-Hex 2%) 1 applic DAILY@1999 TOPIC 07/17/20 20:00 10/15/20 19:59 08/01/20 20:21 Dextrose (Dextrose 50%) 50 ml Q30M PRN IV Hypoglycemia 07/03/20 22:45 10/01/20 22:44 Heparin Sodium (Porcine) (Heparin 5000 units/ml) 5,000 units EVERY 12 HOURS SUBQ 07/03/20 21:00 08/17/20 20:59 08/02/20 08:43 Insulin Aspart (NovoLOG) EVERY 6 HOURS SUBQ 07/13/20 06:00 10/02/20 06:29 07/29/20 11:26 Lorazepam (Ativan 2mg/ml 1ml) 2 mg Q4H PRN IV For Anxiety 07/28/20 19:15 08/04/20 19:14 08/01/20 02:47 Meropenem 1 gm/ Sodium Chloride 55 ml @ 110 mls/hr Q8H IVPB 08/01/20 10:00 08/06/20 09:59 08/02/20 09:39 Midodrine (Pro-Amatine) 10 mg Q8H ORAL 07/22/20 17:00 10/20/20 16:59 08/02/20 08:44 Nitroglycerin (Ntg) 0.4 mg Q5M PRN SL Prn Chest Pain 08/01/20 10:15 08/31/20 10:09 Ondansetron HCl (Zofran) 4 mg Q6H PRN IVP Nausea & Vomiting 08/01/20 14:30 08/31/20 14:29 Pantoprazole (Protonix) 40 mg DAILY IV 07/18/20 09:00 08/17/20 08:59 08/02/20 08:44 Polyethylene Glycol (Miralax) 17 gm DAILYPRN PRN GT Constipation 08/01/20 10:15 08/31/20 10:14 Promethazine HCl/ Codeine (Phenergan with Codeine) 5 ml Q4H PRN GT For Cough 08/01/20 10:14 08/31/20 10:13 Sodium Chloride 1,000 ml @ 50 mls/hr Q20H IV 07/17/20 16:00 08/16/20 15:59 08/02/20 03:00 Laboratory Tests 08/02/20 05:35: White Blood Count 16.3H, Red Blood Count 3.14L, Hemoglobin 9.5L, Hematocrit 30.7L, Mean Corpuscular Volume 98, Mean Corpuscular Hemoglobin 30.1, Mean Corpuscular Hemoglobin Concent 30.8L, Red Cell Distribution Width 17.3H, Platelet Count 307, Mean Platelet Volume 6.7, Neutrophils (%) (Auto) 83.3H, Lymphocytes (%) (Auto) 10.9L, Monocytes (%) (Auto) 4.9, Eosinophils (%) (Auto) 0.2, Basophils (%) (Auto) 0.6, Sodium Level 137, Potassium Level 3.7, Chloride Level 104, Carbon Dioxide Level 24, Anion Gap 9, Blood Urea Nitrogen 12, Creatinine 0.9, Estimat Glomerular Filtration Rate > 60, Glucose Level 136H, Calcium Level 7.7L 08/02/20 07:56: Arterial Blood pH 7.465H, Arterial Blood Partial Pressure CO2 28.6L, Arterial Blood Partial Pressure O2 95.7, Arterial Blood HCO3 20.1L, Arterial Blood Oxygen Saturation 97.1, Arterial Blood Base Excess -2.8L, Richard Test Positive Height (Feet): 5 Height (Inches): 4.00 Weight (Pounds): 130 General Appearance: no apparent distress EENT: other - Intubated on ventilator Cardiovascular: tachycardia Respiratory/Chest: decreased breath sounds Abdomen: distended Tino Connors MD Aug 02, 2020 12:14
--- NOTE | 2020-08-02 13:19 | NUR ---
RESPIRATORY NOTES PT placed back onto previous settings. PT's ABG drawn roughly 3.5 hours into weaning - all values within normal ranges. PT shows no signs of current respiratory distress. FLORES corona. Will continue to monitor.
--- NOTE | 2020-08-02 15:45 | NUR ---
NURSE NOTES: PT CONTINUES TO BE FEBRILE. COOLING MEASURE IN PLACE. TYLENOL GIVEN VIA G-TUBE.
--- NOTE | 2020-08-02 15:51 | Internal Med Progress Note ---
Subjective Date of Service: Aug 02, 2020 Physician Name YaneliDano Attending Physician Ahsan Hodges MD Current Medications Medications (Trade) Dose Ordered Sig/Ankush Route PRN Reason Start Time Stop Time Status Last Admin Dose Admin Acetaminophen (Tylenol) 650 mg Q4H PRN GT Temp >100.5 08/01/20 12:30 08/31/20 12:29 08/02/20 13:30 Albuterol/ Ipratropium (Albuterol/ Ipratropium) 3 ml Q4HRT PRN HHN sob 08/02/20 10:45 08/07/20 10:44 Chlorhexidine Gluconate (Darcy-Hex 2%) 1 applic DAILY@2000 TOPIC 07/17/20 20:00 10/15/20 19:59 08/01/20 20:21 Dextrose (Dextrose 50%) 50 ml Q30M PRN IV Hypoglycemia 07/03/20 22:45 10/01/20 22:44 Heparin Sodium (Porcine) (Heparin 5000 units/ml) 5,000 units EVERY 12 HOURS SUBQ 07/03/20 21:00 08/17/20 20:59 08/02/20 08:43 Insulin Aspart (NovoLOG) EVERY 6 HOURS SUBQ 07/13/20 06:00 10/02/20 06:29 08/02/20 13:29 Lorazepam (Ativan 2mg/ml 1ml) 2 mg Q4H PRN IV For Anxiety 07/28/20 19:15 08/04/20 19:14 08/01/20 02:47 Meropenem 1 gm/ Sodium Chloride 55 ml @ 110 mls/hr Q8H IVPB 08/01/20 10:00 08/06/20 09:59 08/02/20 09:39 Midodrine (Pro-Amatine) 10 mg Q8H ORAL 07/22/20 17:00 10/20/20 16:59 08/02/20 08:44 Nitroglycerin (Ntg) 0.4 mg Q5M PRN SL Prn Chest Pain 08/01/20 10:15 08/31/20 10:09 Ondansetron HCl (Zofran) 4 mg Q6H PRN IVP Nausea & Vomiting 08/01/20 14:30 08/31/20 14:29 Pantoprazole (Protonix) 40 mg DAILY IV 07/18/20 09:00 08/17/20 08:59 08/02/20 08:44 Polyethylene Glycol (Miralax) 17 gm DAILYPRN PRN GT Constipation 08/01/20 10:15 08/31/20 10:14 Promethazine HCl/ Codeine (Phenergan with Codeine) 5 ml Q4H PRN GT For Cough 08/01/20 10:14 08/31/20 10:13 Sodium Chloride 1,000 ml @ 50 mls/hr Q20H IV 07/17/20 16:00 08/16/20 15:59 08/02/20 03:00 Allergies: Coded Allergies: No Known Allergies (Unverified , 04/30/12) ROS Limited/Unobtainable: Yes Subjective 79 YO M admitted with shortness of breath. Now pneumonia; previously COVID positive. Cover for Int laina-Dr Hodges. ICU. Intubated and sedated. Objective Last Vital Signs Date Time Temp Pulse Resp B/P (MAP) Pulse Ox O2 Delivery O2 Flow Rate FiO2 08/02/20 15:30 100.0 67 12 94/68 (77) 100 08/02/20 13:19 30 08/02/20 12:00 Mechanical Ventilator Mechanical Ventilator Mechanical Ventilator Laboratory Tests Test 08/02/20 05:35 08/02/20 07:56 08/02/20 12:35 08/02/20 12:52 White Blood Count 16.3 K/UL (4.8-10.8) H Red Blood Count 3.14 M/UL (4.70-6.10) L Hemoglobin 9.5 G/DL (14.2-18.0) L Hematocrit 30.7 % (42.0-52.0) L Mean Corpuscular Volume 98 FL (80-99) Mean Corpuscular Hemoglobin 30.1 PG (27.0-31.0) Mean Corpuscular Hemoglobin Concent 30.8 G/DL (32.0-36.0) L Red Cell Distribution Width 17.3 % (11.6-14.8) H Platelet Count 307 K/UL (150-450) Mean Platelet Volume 6.7 FL (6.5-10.1) Neutrophils (%) (Auto) 83.3 % (45.0-75.0) H Lymphocytes (%) (Auto) 10.9 % (20.0-45.0) L Monocytes (%) (Auto) 4.9 % (1.0-10.0) Eosinophils (%) (Auto) 0.2 % (0.0-3.0) Basophils (%) (Auto) 0.6 % (0.0-2.0) Sodium Level 137 MMOL/L (136-145) Potassium Level 3.7 MMOL/L (3.5-5.1) Chloride Level 104 MMOL/L (98-107) Carbon Dioxide Level 24 MMOL/L (21-32) Anion Gap 9 mmol/L (5-15) Blood Urea Nitrogen 12 mg/dL (7-18) Creatinine 0.9 MG/DL (0.55-1.30) Estimat Glomerular Filtration Rate > 60 mL/min (>60) Glucose Level 136 MG/DL (74-106) H Calcium Level 7.7 MG/DL (8.5-10.1) L Arterial Blood pH 7.465 (7.350-7.450) 7.421 (7.350-7.450) Arterial Blood Partial Pressure CO2 28.6 mmHg (35.0-45.0) L 37.3 mmHg (35.0-45.0) Arterial Blood Partial Pressure O2 95.7 mmHg (75.0-100.0) 71.7 mmHg (75.0-100.0) L Arterial Blood HCO3 20.1 mmol/L (22.0-26.0) L 23.7 mmol/L (22.0-26.0) Arterial Blood Oxygen Saturation 97.1 % (95-100) 94.2 % (95-100) L Arterial Blood Base Excess -2.8 (-2-2) L -0.5 (-2-2) Richard Test Positive Positive POC Whole Blood Glucose 152 MG/DL (74-106) H Microbiology Date/Time Source Procedure Growth Status 07/30/20 17:15 Sputum Gram Stain - Final Complete 07/30/20 17:15 Sputum Culture - Final Pseudomonas Aeruginosa Escherichia Coli - Esbl Complete Intake and Output 08/01/20 08/02/20 19:00 07:00 Intake Total 1540 ml 1270 ml Output Total 630 ml 600 ml Balance 910 ml 670 ml Free Water 180 ml IV Total 820 ml 550 ml Tube Feeding 540 ml 720 ml Output Urine Total 630 ml 600 ml # Bowel Movements 3 3 Objective PHYSICAL EXAMINATION: GENERAL: The patient awake with deep stimuli, open his eyes, however, cannot follow commands. The patient is on a Ventimask at this time, chronically ill-appearing. HEAD AND NECK: Pupils are equal and reactive to light. Anicteric. NECK: Supple. No JVD. LUNGS: Mech vent; wheezing, rhonchi, and decreased air in bases. HEART: S1, S2. Regular rhythm. Distant heart sounds. No murmur or gallop. ABDOMEN: Soft, nondistended, nontender. Positive bowel sounds. EXTREMITIES: No cyanosis, clubbing, or edema. NEUROLOGIC: Very limited secondary to the patient's status, cannot follow commands. Opens his eyes with deep stimuli and moving extremities spontaneously. Assessment/Plan Assessment/Plan ASSESSMENT: 1. Acute hypoxemic respiratory failure, most likely secondary to pneumonia and sepsis. 2. Sepsis secondary to urinary tract infection and pneumonia. 3. pneumonia=MRSA; ESBL E. coli 4. Acute kidney injury on chronic renal insufficiency. 5. Dehydration. 6. History of chronic congestive heart failure. 7. Diabetes type 2. 8. Dyslipidemia. 9. Hypertension. 10. Alzheimer's disease. 11. COVID 19 previous positive PLAN: 1. ICU 2. Dr. Carreno,=Pulmonary Critical Care; follow mech vent recs 3. Dr. Cho = Inf Dis. 4. IV= D5W due to the hypernatremia and dehydration. 5. antibiotics = meropenem; S/P micafungin and zyvox 6. Code status is full code. 7. DVT prophylaxis is heparin subcutaneous. Dano Groves MD Aug 02, 2020 15:51
--- NOTE | 2020-08-02 20:00 | NUR ---
NURSE NOTES:received report from valery rn pt orally intubated -vent o2 sat 100% no acute resp distress nan verbal awake but does not follows command reposition and suction tolerating tube feeding no residual urinary output good on christian soft restraint nan complaint temp 100.5 medication given for >temp cont monitor pt
[2020-08-02] MEDS: Dyna-Hex 2% Top Sol 2oz TOPIC SCH (20:31)
--- NOTE | 2020-08-02 22:00 | NUR ---
NURSE NOTES: temp 99.0 after mecotion and cooling measures gone
[2020-08-03] VITALS (26 sets, daily range): BP systolic 87–170; BP diastolic 41–91
--- NOTE | 2020-08-03 | NUR ---
NURSE NOTES: BS 115 NO COVERAGE
[2020-08-03] MEDS: Midodrine 10mg tab ORAL SCH ×3 (00:51→17:31)
[2020-08-03] MEDS: Meropenem 1 GM in NS 55 ML IVPB SCH ×3 (00:52→17:31)
--- NOTE | 2020-08-03 02:00 | NUR ---
NURSE NOTES: REPOSITION AND SUCTION
--- NOTE | 2020-08-03 04:00 | NUR ---
NURSE NOTES: COMPLETE BED BATH
[2020-08-03] MEDS: NovoLOG Insulin Flexpen SUBQ SCH ×4 (06:00→17:52)
--- NOTE | 2020-08-03 06:00 | NUR ---
NURSE NOTES: bs 126 no coverage
[2020-08-03 06:27] LABS: BASOPHILS % (AUTO) 0.7 % (0.0-2.0); EOSINOPHILS % (AUTO) 1.7 % (0.0-3.0); HEMATOCRIT 28.8 % (42.0-52.0); HEMOGLOBIN 8.8 G/DL (14.2-18.0); LYMPHOCYTES % (AUTO) 15.6 % (20.0-45.0); MEAN CORPUSCULAR VOLUME 98 FL (80-99); MONOCYTES % (AUTO) 7.2 % (1.0-10.0); NEUTROPHILS % (AUTO) 74.7 % (45.0-75.0); PLATELET COUNT 262 K/UL (150-450); RED BLOOD COUNT 2.93 M/UL (4.70-6.10); RED CELL DISTRIBUTION WIDTH 18.3 % (11.6-14.8)
[2020-08-03 06:43] LABS: ANION GAP 8 mmol/L (5-15); BLOOD UREA NITROGEN 13 mg/dL (7-18); CALCIUM 7.8 MG/DL (8.5-10.1); CARBON DIOXIDE 25 MMOL/L (21-32); CHLORIDE 107 MMOL/L (98-107); CREATININE 0.7 MG/DL (0.55-1.30); POTASSIUM 3.9 MMOL/L (3.5-5.1); SODIUM 139 MMOL/L (136-145)
--- NOTE | 2020-08-03 07:20 | NUR ---
NURSE HAND-OFF REPORT: Latest Vital Signs: Temperature 98.8 , Pulse 74 , B/P 95 /52 , Respiratory Rate 12 , O2 SAT 100 , Mechanical Ventilator, O2 Flow Rate . Vital Sign Comment: EKG Rhythm: Sinus Rhythm Rhythm change?: N Notified?: Grecia Rivera MD Response: Latest Gonzalez Fall Score: 50 Fall Risk: High Risk Safety Measures: Call light Within Reach, Bed Alarm Zone 2, Side Rails Side Rails x2, Bed position Low and Locked. Fall Precautions: Door Sign Report given to .
--- NOTE | 2020-08-03 07:40 | NUR ---
NURSE NOTES: LATE ENTRY: RECEIVED REPORT FROM FLORES GRADY. PT IN BED, LEFT LEG AT SIDE RAIL. OPENS EYES. MOVING EXTREMITIES. FLAT EFFECT AND DOES NOT FOLLOW COMMANDS. WITHDRAWALS TO PAIN. SR ON MONITOR. BP STABLE. PT FEBRILE 100.5 AX. INTUBATED, ETT 7.5, AT 25CM. VENT SETTINGS AC 12, VT 600, FIO2 30%, NO PEEP. LUNG SOUNDS UPPER LOBES RHONCHI, DIMINISHED, LOWER LOBES BILATERAL. SECRETIONS MODERATE. CLEAR. LEFT NGT, TUBE FEEDING GLUCERNA 1.2 AT 60ML/HR. ABDOMEN ROUND, NON TENDER. BOWEL SOUNDS IN ALL QUADRANTS. ONE BM, LARGE BROWN, LOOSE. BLADDER FLAT. TIERNEY DRAINING YELLOW URINE. IMPROVED SKIN AREAS. CAP REFILL <3 SEC. NO JVD. NON PITTING EDEMA UPPER EXTREMITIES. PICC DRESSING DRY AND INTACT. BILATERAL RADIAL PULSES STRONG. PT ON P200 AIR MATTRESS. ISOLATION PRECAUTIONS IN PLACE. SOFT BILATERAL RESTRAINTS IN PLACE. CIRCULATION CHECK COMPLETED. BED ALARM ON. SIDE RAILS X3. LOCKED AND IN LOW POSITION. WILL CONTINUE TO MONITOR PT.
--- NOTE | 2020-08-03 08:08 | Infectious Diseases Prog Note ---
Assessment/Plan 79yo M with: Respiratory code 2ry to mucus plug 07/23 Septic Shock- -recurrent Fever, recurrent, low grade;SP Leukocytosis; recurrent; increased Acute hypoxic resp failure, on NRB mask> 4l NC; back on NRB, desaturation 07/09 > intubated 07/17 Pneumonia- >HAP Hx of COVID19 PNA 05/20/2007/28 CXR: No significant interval change in the radiographic appearance the chest compared to one day prior. 07/25 Resp cx +MRSA, nl resp bobby UCx neg BCx NTD 07/24 COVID PCR neg --07/21 CXR: Bilateral infiltrates in a peribronchovascular distribution are unchanged. Left pleural effusion is unchanged. --07/19 CXR: Persistent bilateral patchy pulmonary opacities, most prominent in the left lower lung. --07/18 ucx neg sp cx MRSA (colonizer at this point) Bcx Neg --07/13 Bcx Neg 07/10 Sp cx MRSA (Vancomycin APOLONIA 1), ESBL E.coli 07/03 BCx NTD UA - WBC, UCx Neg 07/03 COVID rapid neg; 07/06 rapid COVID PCR + (from prior infection)- not new infection Flu A/B neg CXR: L pna Resp cx MRSA 07/30 Resp cx +ESBL E.coli & PsA 08/01 BCx NTD 08/02 CXR: Small bilateral pleural effusions with moderate vascular co ngestion. Airspace consolidation in the left lower lung field may represent atelectasis however, correlate for infiltrate. This is improving when compared to the prior study. 08/03 BCx ordered MELANIE on CKD, improving SNF resident ([facility]) Non-verbal VRE and MRSA colonized Plan: Cont meropenem #3 given high fever, ESBL E.coli and PsA pna C.dif if ongoing loose stools Repeat BCx given ongoing fever (1 from periph, 1 from PICC) F/u BCx 08/01, NTD Trend temp curve, WBC -07/31 SP linezolid #7 -07/27 SP meropenem #14 for ESBL pna -07/21 SP Micafungin #4 -07/17 SP IV Vancomycin #15 -07/13 SP Zosyn # -07/06 SP Cefepime # -07/04 SP Flagyl # Monitor CBC/CMP Monitor resp status Monitor temp curve and hemodynamics D/w RN Thank you for this consult. [facility] will continue to follow. Subjective Allergies: Coded Allergies: No Known Allergies (Unverified , 04/30/12) Febrile to 101.5 Resp cx +ESBL E.coli and PsA WBC slightly improving to 12 NAD on vent 30% PEEP 5 HDS Objective Last 24 Hour Vital Signs Date Time Temp Pulse Resp B/P (MAP) Pulse Ox O2 Delivery O2 Flow Rate FiO2 08/03/20 07:00 74 12 95/52 (66) 08/03/20 06:30 78 12 08/03/20 06:00 75 17 110/54 (72) 08/03/20 05:00 75 12 108/58 (75) 08/03/20 04:00 Mechanical Ventilator Mechanical Ventilator Mechanical Ventilator 08/03/20 04:00 98.8 83 17 137/72 (93) 08/03/20 04:00 78 08/03/20 04:00 30 08/03/20 03:00 76 13 96/53 (67) 100 08/03/20 02:40 79 14 30 08/03/20 02:00 78 15 113/61 (78) 100 08/03/20 01:00 81 14 113/60 (77) 100 08/03/20 00:00 98.5 81 13 123/65 (84) 100 08/03/20 00:00 30 08/03/20 00:00 Mechanical Ventilator Mechanical Ventilator Mechanical Ventilator 08/03/20 00:00 78 08/02/20 23:00 99.0 80 12 119/62 (81) 100 08/02/20 22:47 85 13 30 08/02/20 22:00 78 13 107/51 (69) 100 08/02/20 21:24 99.0 08/02/20 21:00 73 08/02/20 21:00 Mechanical Ventilator Mechanical Ventilator Mechanical Ventilator 08/02/20 21:00 76 14 118/61 (80) 100 08/02/20 20:00 30 08/02/20 20:00 100.5 76 13 117/53 (74) 100 08/02/20 19:03 82 14 30 08/02/20 19:00 74 14 108/53 (71) 100 08/02/20 18:30 75 12 107/57 (74) 100 08/02/20 18:00 73 12 108/51 (70) 100 08/02/20 17:30 80 13 102/71 (81) 08/02/20 17:00 75 12 96/53 (67) 100 08/02/20 16:34 73 12 96/49 (65) 99 08/02/20 16:30 73 12 88/48 (61) 99 08/02/20 16:00 73 08/02/20 16:00 72 12 80/47 (58) 100 08/02/20 16:00 30 08/02/20 16:00 Mechanical Ventilator Mechanical Ventilator Mechanical Ventilator 08/02/20 15:30 100.0 67 12 94/68 (77) 100 08/02/20 15:05 73 12 30 08/02/20 15:00 76 12 83/47 (59) 100 08/02/20 14:00 99.9 88 12 86/52 (63) 99 08/02/20 14:00 99.9 08/02/20 13:19 67 15 30 08/02/20 13:19 100 08/02/20 13:00 100.8 106 27 153/88 (109) 99 08/02/20 13:00 30 08/02/20 12:00 Mechanical Ventilator Mechanical Ventilator Mechanical Ventilator 08/02/20 12:00 85 08/02/20 12:00 104 27 185/84 (117) 100 08/02/20 11:00 93 24 108/83 (91) 100 08/02/20 10:00 100.5 89 24 142/69 (93) 100 08/02/20 09:11 88 25 30 08/02/20 09:00 87 14 132/71 (91) 100 Height (Feet): 5 Height (Inches): 4.00 Weight (Pounds): 130 Gen: NAD in bed HEENT: NCAT CV: RRR Pulm: BL chest rise on vent Abd: Soft, NTND Ext: No c/c/e Neuro: Eyes closed, not interactive Microbiology Date/Time Source Procedure Growth Status 08/01/20 16:30 Blood Blood Culture - Preliminary NO GROWTH AFTER 24 HOURS Resulted 08/01/20 16:20 Blood Blood Culture - Preliminary NO GROWTH AFTER 24 HOURS Resulted Laboratory Tests Test 08/02/20 12:35 08/02/20 12:52 08/02/20 17:36 08/03/20 01:04 Arterial Blood pH 7.421 (7.350-7.450) Arterial Blood Partial Pressure CO2 37.3 mmHg (35.0-45.0) Arterial Blood Partial Pressure O2 71.7 mmHg (75.0-100.0) L Arterial Blood HCO3 23.7 mmol/L (22.0-26.0) Arterial Blood Oxygen Saturation 94.2 % (95-100) L Arterial Blood Base Excess -0.5 (-2-2) Richard Test Positive POC Whole Blood Glucose 152 MG/DL (74-106) H 153 MG/DL (74-106) H Pending Test 08/03/20 05:37 08/03/20 05:59 08/03/20 06:12 White Blood Count 12.0 K/UL (4.8-10.8) H Red Blood Count 2.93 M/UL (4.70-6.10) L Hemoglobin 8.8 G/DL (14.2-18.0) L Hematocrit 28.8 % (42.0-52.0) L Mean Corpuscular Volume 98 FL (80-99) Mean Corpuscular Hemoglobin 30.2 PG (27.0-31.0) Mean Corpuscular Hemoglobin Concent 30.7 G/DL (32.0-36.0) L Red Cell Distribution Width 18.3 % (11.6-14.8) H Platelet Count 262 K/UL (150-450) Mean Platelet Volume 6.7 FL (6.5-10.1) Neutrophils (%) (Auto) 74.7 % (45.0-75.0) Lymphocytes (%) (Auto) 15.6 % (20.0-45.0) L Monocytes (%) (Auto) 7.2 % (1.0-10.0) Eosinophils (%) (Auto) 1.7 % (0.0-3.0) Basophils (%) (Auto) 0.7 % (0.0-2.0) Sodium Level 139 MMOL/L (136-145) Potassium Level 3.9 MMOL/L (3.5-5.1) Chloride Level 107 MMOL/L (98-107) Carbon Dioxide Level 25 MMOL/L (21-32) Anion Gap 8 mmol/L (5-15) Blood Urea Nitrogen 13 mg/dL (7-18) Creatinine 0.7 MG/DL (0.55-1.30) Estimat Glomerular Filtration Rate > 60 mL/min (>60) Glucose Level 111 MG/DL (74-106) H Calcium Level 7.8 MG/DL (8.5-10.1) L POC Whole Blood Glucose 107 MG/DL (74-106) H Pending Current Medications Medications (Trade) Dose Ordered Sig/Ankush Route PRN Reason Start Time Stop Time Status Last Admin Dose Admin Acetaminophen (Tylenol) 650 mg Q4H PRN GT Temp >100.5 08/01/20 12:30 08/31/20 12:29 08/02/20 20:54 Albuterol/ Ipratropium (Albuterol/ Ipratropium) 3 ml Q4HRT PRN HHN sob 08/02/20 10:45 08/07/20 10:44 Chlorhexidine Gluconate (Darcy-Hex 2%) 1 applic DAILY@2000 TOPIC 07/17/20 20:00 10/15/20 19:59 08/02/20 20:31 Dexamethasone (Decadron) 6 mg Q24H ORAL 08/02/20 18:00 08/11/20 18:01 08/02/20 17:57 Dextrose (Dextrose 50%) 50 ml Q30M PRN IV Hypoglycemia 07/03/20 22:45 10/01/20 22:44 Heparin Sodium (Porcine) (Heparin 5000 units/ml) 5,000 units EVERY 12 HOURS SUBQ 07/03/20 21:00 08/17/20 20:59 08/02/20 20:33 Insulin Aspart (NovoLOG) EVERY 6 HOURS SUBQ 07/13/20 06:00 10/02/20 06:29 08/02/20 17:57 Lorazepam (Ativan 2mg/ml 1ml) 2 mg Q4H PRN IV For Anxiety 07/28/20 19:15 08/04/20 19:14 08/01/20 02:47 Meropenem 1 gm/ Sodium Chloride 55 ml @ 110 mls/hr Q8H IVPB 08/01/20 10:00 08/06/20 09:59 08/03/20 00:52 Midodrine (Pro-Amatine) 10 mg Q8H ORAL 07/22/20 17:00 10/20/20 16:59 08/03/20 00:51 Nitroglycerin (Ntg) 0.4 mg Q5M PRN SL Prn Chest Pain 08/01/20 10:15 08/31/20 10:09 Ondansetron HCl (Zofran) 4 mg Q6H PRN IVP Nausea & Vomiting 08/01/20 14:30 08/31/20 14:29 Pantoprazole (Protonix) 40 mg DAILY IV 07/18/20 09:00 08/17/20 08:59 08/02/20 08:44 Polyethylene Glycol (Miralax) 17 gm DAILYPRN PRN GT Constipation 08/01/20 10:15 08/31/20 10:14 Promethazine HCl/ Codeine (Phenergan with Codeine) 5 ml Q4H PRN GT For Cough 08/01/20 10:14 08/31/20 10:13 Sodium Chloride 1,000 ml @ 50 mls/hr Q20H IV 07/17/20 16:00 08/16/20 15:59 08/03/20 01:27 Lorie Ramirez M.D. Aug 03, 2020 08:08
[2020-08-03] MEDS: Pantoprazole Inj IV SCH (08:57)
[2020-08-03] MEDS: Heparin 5000 units/ml inj SUBQ SCH ×2 (08:59→20:24)
[2020-08-03] MEDS: LORazepam Inj 2mg/ml 1ml IV PRN (10:13)
[2020-08-03] MEDS: Acetaminophen 650mg/20.3ml GT PRN (10:14)
--- NOTE | 2020-08-03 10:45 | Cardiac Electrophysiology PN ---
Assessment/Plan Assessment/Plan 1. Accelerated junctional rhythm. Ruled out for [place] Echo showed ejection fraction of 55%. 2. Long run of 31 beats of Nonsustained VT on 07/14/2020. Cardiac cath after stabilization. 3. Jose 30, Asystole while on the Vent due to resp failure/ likely mucus plug . S/P Code 4. Respiratory failure, on antibiotic and intubated on the vent Failed weaning. Family refused tracheostomy 5. Septic shock. Off Levophed and on Midodrine 10 tid 6. History of previous COVID infection in May 2020 and active Covid in isolation Now negative again 7. Dementia. SHAYY RN and Dr hernandez Subjective Subjective In ICU on the Vent Fio2 30%, PEEP 5 Had 31 beats of VT on 07/14/20 at 16:46 and 5 beats 07/19/20 Coded on 07/23/20 as sat dropped to 20% and got jose 30s and PEA and pulseless Off Levophed and on Midodrine 10 tid Covid test was negative. But still febrile. Failed weaning again. Family refusing tracheostomy. Was on CPAP for 3 hours yesterday In SR Objective Last 24 Hour Vital Signs Date Time Temp Pulse Resp B/P (MAP) Pulse Ox O2 Delivery O2 Flow Rate FiO2 08/03/20 10:13 121 22 170/90 98 08/03/20 07:20 84 14 30 08/03/20 07:00 74 12 95/52 (66) 08/03/20 06:30 78 12 08/03/20 06:00 75 17 110/54 (72) 08/03/20 05:00 75 12 108/58 (75) 08/03/20 04:00 Mechanical Ventilator Mechanical Ventilator Mechanical Ventilator 08/03/20 04:00 98.8 83 17 137/72 (93) 08/03/20 04:00 78 08/03/20 04:00 30 08/03/20 03:00 76 13 96/53 (67) 100 08/03/20 02:40 79 14 30 08/03/20 02:00 78 15 113/61 (78) 100 08/03/20 01:00 81 14 113/60 (77) 100 08/03/20 00:00 98.5 81 13 123/65 (84) 100 08/03/20 00:00 30 08/03/20 00:00 Mechanical Ventilator Mechanical Ventilator Mechanical Ventilator 08/03/20 00:00 78 08/02/20 23:00 99.0 80 12 119/62 (81) 100 08/02/20 22:47 85 13 30 08/02/20 22:00 78 13 107/51 (69) 100 08/02/20 21:24 99.0 08/02/20 21:00 73 08/02/20 21:00 Mechanical Ventilator Mechanical Ventilator Mechanical Ventilator 08/02/20 21:00 76 14 118/61 (80) 100 08/02/20 20:00 30 08/02/20 20:00 100.5 76 13 117/53 (74) 100 08/02/20 19:03 82 14 30 08/02/20 19:00 74 14 108/53 (71) 100 08/02/20 18:30 75 12 107/57 (74) 100 08/02/20 18:00 73 12 108/51 (70) 100 08/02/20 17:30 80 13 102/71 (81) 08/02/20 17:00 75 12 96/53 (67) 100 08/02/20 16:34 73 12 96/49 (65) 99 08/02/20 16:30 73 12 88/48 (61) 99 08/02/20 16:00 73 08/02/20 16:00 72 12 80/47 (58) 100 08/02/20 16:00 30 08/02/20 16:00 Mechanical Ventilator Mechanical Ventilator Mechanical Ventilator 08/02/20 15:30 100.0 67 12 94/68 (77) 100 08/02/20 15:05 73 12 30 08/02/20 15:00 76 12 83/47 (59) 100 08/02/20 14:00 99.9 88 12 86/52 (63) 99 08/02/20 14:00 99.9 08/02/20 13:19 67 15 30 08/02/20 13:19 100 08/02/20 13:00 100.8 106 27 153/88 (109) 99 08/02/20 13:00 30 08/02/20 12:00 Mechanical Ventilator Mechanical Ventilator Mechanical Ventilator 08/02/20 12:00 85 08/02/20 12:00 104 27 185/84 (117) 100 08/02/20 11:00 93 24 108/83 (91) 100 Intake and Output 08/02/20 08/03/20 19:00 07:00 Intake Total 1220 ml 1425 ml Output Total 610 ml 1050 ml Balance 610 ml 375 ml Free Water 100 ml IV Total 770 ml 605 ml Tube Feeding 420 ml 720 ml Other 30 ml Output Urine Total 610 ml 1050 ml # Bowel Movements 1 Laboratory Tests Test 08/02/20 12:35 08/02/20 12:52 08/02/20 17:36 08/03/20 01:04 Arterial Blood pH 7.421 (7.350-7.450) Arterial Blood Partial Pressure CO2 37.3 mmHg (35.0-45.0) Arterial Blood Partial Pressure O2 71.7 mmHg (75.0-100.0) L Arterial Blood HCO3 23.7 mmol/L (22.0-26.0) Arterial Blood Oxygen Saturation 94.2 % (95-100) L Arterial Blood Base Excess -0.5 (-2-2) Richard Test Positive POC Whole Blood Glucose 152 MG/DL (74-106) H 153 MG/DL (74-106) H Pending Test 08/03/20 05:37 08/03/20 05:59 08/03/20 06:12 08/03/20 07:59 White Blood Count 12.0 K/UL (4.8-10.8) H Red Blood Count 2.93 M/UL (4.70-6.10) L Hemoglobin 8.8 G/DL (14.2-18.0) L Hematocrit 28.8 % (42.0-52.0) L Mean Corpuscular Volume 98 FL (80-99) Mean Corpuscular Hemoglobin 30.2 PG (27.0-31.0) Mean Corpuscular Hemoglobin Concent 30.7 G/DL (32.0-36.0) L Red Cell Distribution Width 18.3 % (11.6-14.8) H Platelet Count 262 K/UL (150-450) Mean Platelet Volume 6.7 FL (6.5-10.1) Neutrophils (%) (Auto) 74.7 % (45.0-75.0) Lymphocytes (%) (Auto) 15.6 % (20.0-45.0) L Monocytes (%) (Auto) 7.2 % (1.0-10.0) Eosinophils (%) (Auto) 1.7 % (0.0-3.0) Basophils (%) (Auto) 0.7 % (0.0-2.0) Sodium Level 139 MMOL/L (136-145) Potassium Level 3.9 MMOL/L (3.5-5.1) Chloride Level 107 MMOL/L (98-107) Carbon Dioxide Level 25 MMOL/L (21-32) Anion Gap 8 mmol/L (5-15) Blood Urea Nitrogen 13 mg/dL (7-18) Creatinine 0.7 MG/DL (0.55-1.30) Estimat Glomerular Filtration Rate > 60 mL/min (>60) Glucose Level 111 MG/DL (74-106) H Calcium Level 7.8 MG/DL (8.5-10.1) L POC Whole Blood Glucose 107 MG/DL (74-106) H Pending Arterial Blood pH 7.466 (7.350-7.450) Arterial Blood Partial Pressure CO2 32.4 mmHg (35.0-45.0) L Arterial Blood Partial Pressure O2 74.4 mmHg (75.0-100.0) L Arterial Blood HCO3 22.8 mmol/L (22.0-26.0) Arterial Blood Oxygen Saturation 94.9 % (95-100) L Arterial Blood Base Excess -0.4 (-2-2) Richard Test Positive Microbiology Date/Time Source Procedure Growth Status 08/01/20 16:30 Blood Blood Culture - Preliminary NO GROWTH AFTER 24 HOURS Resulted 08/01/20 16:20 Blood Blood Culture - Preliminary NO GROWTH AFTER 24 HOURS Resulted Objective HEAD AND NECK: No JVD. Orally intubated LUNGS: Coarse rhonchi. CARDIOVASCULAR: Irregular S1 and S2 with no gallop. ABDOMEN: Soft. EXTREMITIES: No pitting edema. Klever Matt MD Aug 03, 2020 10:45
--- NOTE | 2020-08-03 11:31 | NUR ---
NURSE NOTES: MD. SULLIVAN HERE TO SEE PT. WAS INFORMED OF PT FEVERS. PT HAS PICC JACQUIE. MILD EDEMA NOTED. LABS IMPROVING. CENTRAL DRESSING LINE TO BE CHANGED TODAY. ORDER FOR BLOOD CULTURES VIA PICC AND PERIPHERAL.
--- NOTE | 2020-08-03 12:08 | NUR ---
RADIOLOGY DEPT., CHEST X-RAY DONE.-P.DYE
--- NOTE | 2020-08-03 12:12 | NUR ---
NURSE NOTES: LATE ENTRY: PT IN BED. OPENS EYES. FLAT EFFECT. WITHDRAWALS TO PAIN. SR ON MONITOR. BP STABLE. COOLING MEASURES IN PLACE. INTUBATED, ETT 7.5, AT 25CM. VENT SETTINGS AC 12, VT 600, FIO2 30%, NO PEEP. SECRETIONS MODERATE. ORAL CARE PROVIDED, PT RESISTANT TO CARE. NGT, TUBE FEEDING GLUCERNA 1.2 AT 60ML/HR. NO RESIDUALS. ABDOMEN ROUND, NON TENDER. NO BM. TIERNEY DRAINING YELLOW URINE. JACQUIE PICC DRESSING DRY AND INTACT. BILATERAL RADIAL PULSES STRONG. PT ON P200 AIR MATTRESS. ISOLATION PRECAUTIONS IN PLACE. SOFT BILATERAL RESTRAINTS IN PLACE. CIRCULATION CHECK. BED ALARM ON. SIDE RAILS X3. LOCKED AND IN LOW POSITION. WILL CONTINUE TO MONITOR PT.
--- NOTE | 2020-08-03 12:42 | Nephrology Progress Note ---
Assessment/Plan Problem List: (1) Dehydration (2) MELANIE (acute kidney injury) (3) Renal failure (ARF), acute on chronic (4) Hypoxia (5) Acute encephalopathy (6) Electrolyte imbalance Assessment 79-year-old male is admitted with acute hypoxic respiratory failure most likely secondary to pneumonia and sepsis, UTI. Acute on chronic renal failure Dehydration Electrolyte imbalances, hypernatremia Hypoalbuminemia Diabetes type 2 History of congestive heart failure Hypertension Hyperlipemia Alzheimer's Previous COVID-19 infection in May 2020 Plan August 03: Labs reviewed. Discussed with RN. Stable from renal standpoint of view. Continue per consultants. August 02: Patient seen and discussed with RN. Labs reviewed. Remains intubated. Trial of weaning this being attempted. Continue per consultants. August 01: Remains intubated. Labs reviewed. Renal parameters stable. Continue per consultants. July 31: Remains on mechanical ventilation. Labs reviewed. Abnormal electrolytes addressed. Stable from renal standpoint of view. July 30: Remains intubated. Remains full code. Labs reviewed. Low phosphorus replaced. Continue to monitor renal parameters. Continue per consultants. July 29: Failed weaning. Remains intubated. Remains full closed. Labs reviewed. Stable from renal standpoint view. July 28: Remains in ICU. Remains full code. Labs are reviewed. Phosphorus supplement given. Continue per consultants. July 27: Remains in ICU. Full code. Labs reviewed. Remains intubated. Stable renal parameters. July 26: In ICU. Full code. Discussed with RN. Stable renal parameters. July 25: Seen in ICU. Discussed with FLORES Holliday. Flomax discontinued. Labs reviewed. Stable from renal standpoint of view. July 24: Seen in ICU. Discussed with FLORES Holliday. Remains on pressor. Electrolyte abnormalities noted and addressed. Continue per consultants. Patient remains full code. July 23: Seen in ICU. Discussed with FLORES Barrera. Blood pressure remains a little requiring pressors. Labs reviewed. Stable renal parameters. Continue per consultants. July 22: Remains intubated. Full code. Blood pressure borderline low. Will increase midodrine dose. Discussed with RN. Continue to monitor renal parameters and electrolytes. July 21: Intubated. Full code. Labs reviewed. Stable from renal standpoint of view. Continue per consultants. July 20: Remains intubated. Full code. Labs reviewed. Electrolytes within normal limit. Continue per consultants. July 19: In ICU. Remains intubated on ventilator. Remains full code. Low potassium addressed. Blood pressure fluctuating. Continue per consultants. July 18: Patient in ICU. Intubated on ventilator. On 6 mics of Levophed. Will give 100 cc albumin 25%. K-Phos IV ordered. Continue per consultants. Continue monitor renal parameters and electrolytes. July 17: Status unchanged. Transfer to [facility] for seizure. Stable from renal standpoint to view. Continue per consultants. July 16: Status quo. Labs reviewed. Renal parameters stable. Continue per consultants. July 15: On nonrebreather mask. Labs reviewed. Renal parameters stable.Continue per soft top installer. Clinically unchanged. July 14: On nonrebreather mask. Inflammatory markers gradually declining. Renal parameters stable. Continue per pulmonary. July 13: Remains on nonrebreather mask. Inflammatory markers remain elevated. Renal parameters somewhat stable. Continue per pulmonary and ID. Remains full code. July 12: Patient on nonrebreather mask. Labs noted. Serum creatinine down to 1.3. Continue per consultants. July 11: Patient on nonrebreather mask. Transfer to telemetry when seen this morning. Labs noted. Continue per consultants. Serum creatinine erin to 1.7. Continue to monitor renal parameters. Continue to monitor vancomycin level July 10: Patient is not doing well clinically. Mild respiratory distress. ABG noted. Somewhat hypoxic. CBC and chemistry panel ordered. Discussed with FLORES Cho. Will defer to pulmonary management to specialist. Continue per ID. Renal parameters remained stable as of July 09. July 09: Labs reviewed. Renal parameters stable. Continue per consultants. July 08: Labs reviewed. Potassium via NG tube ordered. IV fluids stopped. Continue per consultants. July 07: Labs reviewed. Low potassium and low phosphorus replaced. Continue per consultants. Remains stable from renal standpoint of view. July 06: Patient remains n.p.o. IV fluid down to 50 cc an hour. Potassium supplement intravenously ordered. Continue per consultants. Previously: Patient is n.p.o., will continue on IV fluid of D5W 75 cc an hour We will monitor electrolytes and renal parameters Avoid nephrotoxic's Start p.o. when he clears by speech therapist, meanwhile aspiration precautions Keep the blood pressure and blood sugar in check Per orders Subjective ROS Limited/Unobtainable: Yes Objective Objective Last 24 Hour Vital Signs Date Time Temp Pulse Resp B/P (MAP) Pulse Ox O2 Delivery O2 Flow Rate FiO2 08/03/20 12:00 Mechanical Ventilator Mechanical Ventilator Mechanical Ventilator 08/03/20 12:00 30 08/03/20 12:00 99.8 75 12 89/48 (62) 95 08/03/20 11:00 110 20 110/76 (87) 96 08/03/20 10:44 100.0 08/03/20 10:43 99 24 170/91 97 08/03/20 10:13 121 22 170/90 98 08/03/20 10:00 107 28 170/91 (117) 99 08/03/20 09:30 95 28 134/66 (88) 97 08/03/20 09:00 100.0 100 22 144/78 (100) 98 08/03/20 08:30 98 28 142/81 (101) 99 08/03/20 08:00 100.5 85 23 119/41 (67) 83 08/03/20 08:00 30 08/03/20 08:00 85 08/03/20 08:00 Mechanical Ventilator Mechanical Ventilator Mechanical Ventilator 08/03/20 07:20 84 14 30 08/03/20 07:00 74 12 95/52 (66) 08/03/20 06:30 78 12 08/03/20 06:00 75 17 110/54 (72) 08/03/20 05:00 75 12 108/58 (75) 08/03/20 04:00 Mechanical Ventilator Mechanical Ventilator Mechanical Ventilator 08/03/20 04:00 98.8 83 17 137/72 (93) 08/03/20 04:00 78 08/03/20 04:00 30 08/03/20 03:00 76 13 96/53 (67) 100 08/03/20 02:40 79 14 30 08/03/20 02:00 78 15 113/61 (78) 100 08/03/20 01:00 81 14 113/60 (77) 100 08/03/20 00:00 98.5 81 13 123/65 (84) 100 08/03/20 00:00 30 08/03/20 00:00 Mechanical Ventilator Mechanical Ventilator Mechanical Ventilator 08/03/20 00:00 78 08/02/20 23:00 99.0 80 12 119/62 (81) 100 08/02/20 22:47 85 13 30 08/02/20 22:00 78 13 107/51 (69) 100 08/02/20 21:24 99.0 08/02/20 21:00 73 08/02/20 21:00 Mechanical Ventilator Mechanical Ventilator Mechanical Ventilator 08/02/20 21:00 76 14 118/61 (80) 100 08/02/20 20:00 30 08/02/20 20:00 100.5 76 13 117/53 (74) 100 08/02/20 19:03 82 14 30 08/02/20 19:00 74 14 108/53 (71) 100 08/02/20 18:30 75 12 107/57 (74) 100 08/02/20 18:00 73 12 108/51 (70) 100 08/02/20 17:30 80 13 102/71 (81) 08/02/20 17:00 75 12 96/53 (67) 100 08/02/20 16:34 73 12 96/49 (65) 99 08/02/20 16:30 73 12 88/48 (61) 99 08/02/20 16:00 73 08/02/20 16:00 72 12 80/47 (58) 100 08/02/20 16:00 30 08/02/20 16:00 Mechanical Ventilator Mechanical Ventilator Mechanical Ventilator 08/02/20 15:30 100.0 67 12 94/68 (77) 100 08/02/20 15:05 73 12 30 08/02/20 15:00 76 12 83/47 (59) 100 08/02/20 14:00 99.9 88 12 86/52 (63) 99 08/02/20 14:00 99.9 08/02/20 13:19 67 15 30 08/02/20 13:19 100 08/02/20 13:00 100.8 106 27 153/88 (109) 99 08/02/20 13:00 30 Intake and Output 08/02/20 08/03/20 19:00 07:00 Intake Total 1220 ml 1475 ml Output Total 610 ml 1050 ml Balance 610 ml 425 ml Free Water 100 ml IV Total 770 ml 655 ml Tube Feeding 420 ml 720 ml Other 30 ml Output Urine Total 610 ml 1050 ml # Bowel Movements 1 Current Medications Medications (Trade) Dose Ordered Sig/Ankush Route PRN Reason Start Time Stop Time Status Last Admin Dose Admin Acetaminophen (Tylenol) 650 mg Q4H PRN GT Temp >100.5 08/01/20 12:30 08/31/20 12:29 08/03/20 10:14 Albuterol/ Ipratropium (Albuterol/ Ipratropium) 3 ml Q4HRT PRN HHN sob 08/02/20 10:45 08/07/20 10:44 Chlorhexidine Gluconate (Darcy-Hex 2%) 1 applic DAILY@2000 TOPIC 07/17/20 20:00 10/15/20 19:59 08/02/20 20:31 Dexamethasone (Decadron) 6 mg Q24H ORAL 08/02/20 18:00 08/11/20 18:01 08/02/20 17:57 Dextrose (Dextrose 50%) 50 ml Q30M PRN IV Hypoglycemia 07/03/20 22:45 10/01/20 22:44 Heparin Sodium (Porcine) (Heparin 5000 units/ml) 5,000 units EVERY 12 HOURS SUBQ 07/03/20 21:00 08/17/20 20:59 08/03/20 08:59 Insulin Aspart (NovoLOG) EVERY 6 HOURS SUBQ 07/13/20 06:00 10/02/20 06:29 08/02/20 17:57 Lorazepam (Ativan 2mg/ml 1ml) 2 mg Q4H PRN IV For Anxiety 07/28/20 19:15 08/04/20 19:14 08/03/20 10:13 Meropenem 1 gm/ Sodium Chloride 55 ml @ 110 mls/hr Q8H IVPB 08/01/20 10:00 08/06/20 09:59 08/03/20 08:59 Midodrine (Pro-Amatine) 10 mg Q8H ORAL 07/22/20 17:00 10/20/20 16:59 08/03/20 08:57 Nitroglycerin (Ntg) 0.4 mg Q5M PRN SL Prn Chest Pain 08/01/20 10:15 08/31/20 10:09 Ondansetron HCl (Zofran) 4 mg Q6H PRN IVP Nausea & Vomiting 08/01/20 14:30 08/31/20 14:29 Pantoprazole (Protonix) 40 mg DAILY IV 07/18/20 09:00 12/7/20 08:59 08/03/20 08:57 Polyethylene Glycol (Miralax) 17 gm DAILYPRN PRN GT Constipation 08/01/20 10:15 08/31/20 10:14 Promethazine HCl/ Codeine (Phenergan with Codeine) 5 ml Q4H PRN GT For Cough 08/01/20 10:14 08/31/20 10:13 Sodium Chloride 1,000 ml @ 50 mls/hr Q20H IV 07/17/20 16:00 08/16/20 15:59 08/03/20 01:27 Laboratory Tests 08/02/20 12:52: POC Whole Blood Glucose 152H 08/02/20 17:36: POC Whole Blood Glucose 153H 08/03/20 01:04: POC Whole Blood Glucose [Pending] 08/03/20 05:37: White Blood Count 12.0H, Red Blood Count 2.93L, Hemoglobin 8.8L, Hematocrit 28.8L, Mean Corpuscular Volume 98, Mean Corpuscular Hemoglobin 30.2, Mean Co rpuscular Hemoglobin Concent 30.7L, Red Cell Distribution Width 18.3H, Platelet Count 262, Mean Platelet Volume 6.7, Neutrophils (%) (Auto) 74.7, Lymphocytes (%) (Auto) 15.6L, Monocytes (%) (Auto) 7.2, Eosinophils (%) (Auto) 1.7, Basophils (%) (Auto) 0.7, Sodium Level 139, Potassium Level 3.9, Chloride Level 107, Carbon Dioxide Level 25, Anion Gap 8, Blood Urea Nitrogen 13, Creatinine 0.7, Estimat Glomerular Filtration Rate > 60, Glucose Level 111H, Calcium Level 7.8L 08/03/20 05:59: POC Whole Blood Glucose 107H 08/03/20 06:12: POC Whole Blood Glucose [Pending] 08/03/20 07:59: Arterial Blood pH 7.466H, Arterial Blood Partial Pressure CO2 32.4L, Arterial Blood Partial Pressure O2 74.4L, Arterial Blood HCO3 22.8, Arterial Blood Oxygen Saturation 94.9L, Arterial Blood Base Excess -0.4, Richard Test Positive Height (Feet): 5 Height (Inches): 4.00 Weight (Pounds): 130 General Appearance: no apparent distress EENT: other - Intubated on ventilator Cardiovascular: tachycardia Respiratory/Chest: decreased breath sounds Tino Connors MD Aug 03, 2020 12:42
--- NOTE | 2020-08-03 13:06 | Diagnostic Imaging Report ---
Indication: Shortness of breath Technique: One view of the chest Comparison: 08/02/2020 Findings: Stable satisfactory positions of endotracheal and orogastric tubes and right arm PICC. Right shoulder prosthesis is again demonstrated. There are again demonstrated bilateral pleural effusions. There is increasing opacity at the right lung base. This may represent increasing layering pleural fluid that likely represents infiltrate. Infiltrate at the left lung base is unchanged. There is some left suprahilar atelectasis and/or infiltrate which is unchanged Impression: Increasing right basilar opacity, likely infiltrate, may also reflect increasing pleural fluid Other stable findings as reported.
--- NOTE | 2020-08-03 13:30 | NUR ---
NURSE NOTES: LATE ENTRY: PT WAS GIVEN ATIVAN TODAY FOR INCREASED ANX LEVEL. RESPONSIVE TO MEDICATION. WILL CONTINUE TO MONITOR.
--- NOTE | 2020-08-03 16:00 | NUR ---
NURSE NOTES: LATE ENTRY: PT IN BED, NO DISTESS NOTED. PT REPOSITIONED. HOB >40. SECRETIONS SUCTIONED AND ORAL CARE PROVIDED. RESTRAINTS REPLACED, PT CONTINUES TO PULL AT TUBING. ROM PROVIDED AND CIRCULATION CHECKED.
--- NOTE | 2020-08-03 17:13 | NUR ---
CASE MANAGEMENT:REVIEW SI;PNA. RESPIRATORY FAILURE. SEPTIC SHOCK. BILATERAL PLEURAL EFFUSION. 100.5 100 28 95/52 83% ETT/VENT SUPPORT AC 12 TV 600 PEEP 0 FIO2 30% WBC 12.0 H/H 8.8/28.8 CA 7.8 IS;DECADRON NG Q24 TYLENOL NG Q4 PRN MEROPENEM IV Q8 MIDODRINE NG Q8 IVF NS @ 50 ML/HR ATIVAN IV Q4 PRN PROTONIX IV QD ICU STATUS DCP;FROM [facility] [place]
--- NOTE | 2020-08-03 18:50 | Internal Med Progress Note ---
Subjective Date of Service: Aug 03, 2020 Physician Name YaneliDano Attending Physician Ahsan Hodges MD Current Medications Medications (Trade) Dose Ordered Sig/Ankush Route PRN Reason Start Time Stop Time Status Last Admin Dose Admin Acetaminophen (Tylenol) 650 mg Q4H PRN GT Temp >100.5 08/01/20 12:30 08/31/20 12:29 08/03/20 10:14 Albuterol/ Ipratropium (Albuterol/ Ipratropium) 3 ml Q4HRT PRN HHN sob 08/02/20 10:45 08/07/20 10:44 Chlorhexidine Gluconate (Darcy-Hex 2%) 1 applic DAILY@2000 TOPIC 07/17/20 20:00 10/15/20 19:59 08/02/20 20:31 Dexamethasone (Decadron) 6 mg Q24H ORAL 08/02/20 18:00 08/11/20 18:01 08/03/20 17:30 Dextrose (Dextrose 50%) 50 ml Q30M PRN IV Hypoglycemia 07/03/20 22:45 10/01/20 22:44 Heparin Sodium (Porcine) (Heparin 5000 units/ml) 5,000 units EVERY 12 HOURS SUBQ 07/03/20 21:00 08/17/20 20:59 08/03/20 08:59 Insulin Aspart (NovoLOG) EVERY 6 HOURS SUBQ 07/13/20 06:00 10/02/20 06:29 08/03/20 13:36 Lorazepam (Ativan 2mg/ml 1ml) 2 mg Q4H PRN IV For Anxiety 07/28/20 19:15 08/04/20 19:14 08/03/20 10:13 Meropenem 1 gm/ Sodium Chloride 55 ml @ 110 mls/hr Q8H IVPB 08/01/20 10:00 08/06/20 09:59 08/03/20 17:31 Midodrine (Pro-Amatine) 10 mg Q8H ORAL 07/22/20 17:00 10/20/20 16:59 08/03/20 17:31 Nitroglycerin (Ntg) 0.4 mg Q5M PRN SL Prn Chest Pain 08/01/20 10:15 08/31/20 10:09 Ondansetron HCl (Zofran) 4 mg Q6H PRN IVP Nausea & Vomiting 08/01/20 14:30 08/31/20 14:29 Pantoprazole (Protonix) 40 mg DAILY IV 07/18/20 09:00 08/17/20 08:59 08/03/20 08:57 Polyethylene Glycol (Miralax) 17 gm DAILYPRN PRN GT Constipation 08/01/20 10:15 08/31/20 10:14 Promethazine HCl/ Codeine (Phenergan with Codeine) 5 ml Q4H PRN GT For Cough 08/01/20 10:14 08/31/20 10:13 Sodium Chloride 1,000 ml @ 50 mls/hr Q20H IV 07/17/20 16:00 08/16/20 15:59 08/03/20 01:27 Allergies: Coded Allergies: No Known Allergies (Unverified , 04/30/12) ROS Limited/Unobtainable: Yes Subjective 79 YO M admitted with shortness of breath. Now pneumonia; previously COVID positive. Cover for Int med-Dr Hodges. ICU. Intubated and sedated. Objective Last Vital Signs Date Time Temp Pulse Resp B/P (MAP) Pulse Ox O2 Delivery O2 Flow Rate FiO2 08/03/20 18:00 98.9 73 12 109/56 (73) 98 08/03/20 16:00 30 08/03/20 16:00 Mechanical Ventilator Mechanical Ventilator Mechanical Ventilator Laboratory Tests Test 08/03/20 01:04 08/03/20 05:37 08/03/20 05:59 08/03/20 06:12 POC Whole Blood Glucose Pending 107 MG/DL (74-106) H Pending White Blood Count 12.0 K/UL (4.8-10.8) H Red Blood Count 2.93 M/UL (4.70-6.10) L Hemoglobin 8.8 G/DL (14.2-18.0) L Hematocrit 28.8 % (42.0-52.0) L Mean Corpuscular Volume 98 FL (80-99) Mean Corpuscular Hemoglobin 30.2 PG (27.0-31.0) Mean Corpuscular Hemoglobin Concent 30.7 G/DL (32.0-36.0) L Red Cell Distribution Width 18.3 % (11.6-14.8) H Platelet Count 262 K/UL (150-450) Mean Platelet Volume 6.7 FL (6.5-10.1) Neutrophils (%) (Auto) 74.7 % (45.0-75.0) Lymphocytes (%) (Auto) 15.6 % (20.0-45.0) L Monocytes (%) (Auto) 7.2 % (1.0-10.0) Eosinophils (%) (Auto) 1.7 % (0.0-3.0) Basophils (%) (Auto) 0.7 % (0.0-2.0) Sodium Level 139 MMOL/L (136-145) Potassium Level 3.9 MMOL/L (3.5-5.1) Chloride Level 107 MMOL/L (98-107) Carbon Dioxide Level 25 MMOL/L (21-32) Anion Gap 8 mmol/L (5-15) Blood Urea Nitrogen 13 mg/dL (7-18) Creatinine 0.7 MG/DL (0.55-1.30) Estimat Glomerular Filtration Rate > 60 mL/min (>60) Glucose Level 111 MG/DL (74-106) H Calcium Level 7.8 MG/DL (8.5-10.1) L Test 08/03/20 07:59 08/03/20 13:06 08/03/20 17:51 Arterial Blood pH 7.466 (7.350-7.450) Arterial Blood Partial Pressure CO2 32.4 mmHg (35.0-45.0) L Arterial Blood Partial Pressure O2 74.4 mmHg (75.0-100.0) L Arterial Blood HCO3 22.8 mmol/L (22.0-26.0) Arterial Blood Oxygen Saturation 94.9 % (95-100) L Arterial Blood Base Excess -0.4 (-2-2) Richard Test Positive POC Whole Blood Glucose Pending 135 MG/DL (74-106) H Microbiology Date/Time Source Procedure Growth Status 08/01/20 16:30 Blood Blood Culture - Preliminary NO GROWTH AFTER 24 HOURS Resulted 08/01/20 16: Blood Blood Culture - Preliminary NO GROWTH AFTER 24 HOURS Resulted Intake and Output 08/02/20 08/03/20 19:00 07:00 Intake Total 1220 ml 1475 ml Output Total 610 ml 1050 ml Balance 610 ml 425 ml Free Water 100 ml IV Total 770 ml 655 ml Tube Feeding 420 ml 720 ml Other 30 ml Output Urine Total 610 ml 1050 ml # Bowel Movements 1 Objective PHYSICAL EXAMINATION: GENERAL: The patient awake with deep stimuli, open his eyes, however, cannot follow commands. The patient is on a Ventimask at this time, chronically ill-appearing. HEAD AND NECK: Pupils are equal and reactive to light. Anicteric. NECK: Supple. No JVD. LUNGS: Mech vent; wheezing, rhonchi, and decreased air in bases. HEART: S1, S2. Regular rhythm. Distant heart sounds. No murmur or gallop. ABDOMEN: Soft, nondistended, nontender. Positive bowel sounds. EXTREMITIES: No cyanosis, clubbing, or edema. NEUROLOGIC: Very limited secondary to the patient's status, cannot follow commands. Opens his eyes with deep stimuli and moving extremities spontaneously. Assessment/Plan Assessment/Plan ASSESSMENT: 1. Acute hypoxemic respiratory failure, most likely secondary to pneumonia and sepsis. 2. Sepsis secondary to urinary tract infection and pneumonia. 3. pneumonia=MRSA; ESBL E. coli 4. Acute kidney injury on chronic renal insufficiency. 5. Dehydration. 6. History of chronic congestive heart failure. 7. Diabetes type 2. 8. Dyslipidemia. 9. Hypertension. 10. Alzheimer's disease. 11. COVID 19 previous positive PLAN: 1. ICU 2. Dr. Carreno,=Pulmonary Critical Care; follow mech vent recs 3. Dr. Cho = Inf Dis. 4. IV= D5W due to the hypernatremia and dehydration. 5. antibiotics = meropenem; S/P micafungin and zyvox 6. Code status is full code. 7. DVT prophylaxis is heparin subcutaneous. Dano Groves MD Aug 03, 2020 18:50
--- NOTE | 2020-08-03 19:38 | NUR ---
NURSE HAND-OFF REPORT: Latest Vital Signs: Temperature 98.9 , Pulse 63 , B/P 99 /50 , Respiratory Rate 12 , O2 SAT 97 , Mechanical Ventilator, O2 Flow Rate . Vital Sign Comment: EKG Rhythm: Sinus Rhythm Rhythm change?: N Notified?: Grecia Rivera MD Response: Latest Gonzalez Fall Score: 50 Fall Risk: High Risk Safety Measures: Call light Within Reach, Bed Alarm Zone 2, Side Rails Side Rails x2, Bed position Low and Locked. Fall Precautions: Door Sign Report given to Estefania GRADY RN
[2020-08-03] MEDS: Dyna-Hex 2% Top Sol 2oz TOPIC SCH (19:46)
--- NOTE | 2020-08-03 20:00 | NUR ---
NURSE NOTES: RECEIVED REPORT FROM JIMY RN PT ORALLY INTUBATED AWAKE DOES NOTED FOLLOWS COMMAND ON DONAL SOFT RESTRAINT NAN COMPLAINT TOLERATING TUBE FEEDING REPOSITION AND SUCTION
--- NOTE | 2020-08-03 22:00 | NUR ---
NURSE NOTES: REPOSITION AND SUCTION
[2020-08-04] VITALS (24 sets, daily range): BP systolic 50–145; BP diastolic 54–85
--- NOTE | 2020-08-04 | NUR ---
NURSE NOTES:BS 175 INSULIN COVERAGE GIVEN
[2020-08-04] MEDS: Midodrine 10mg tab ORAL SCH ×3 (01:14→17:01)
[2020-08-04] MEDS: Meropenem 1 GM in NS 55 ML IVPB SCH ×3 (01:15→17:02)
--- NOTE | 2020-08-04 04:00 | NUR ---
COMPLETE BED BATH ORAL CARE DONE
[2020-08-04] MEDS: NovoLOG Insulin Flexpen SUBQ SCH ×5 (05:41→23:53)
[2020-08-04 05:42] LABS: HEMATOCRIT 30.6 % (42.0-52.0); HEMOGLOBIN 9.2 G/DL (14.2-18.0); MEAN CORPUSCULAR VOLUME 99 FL (80-99); PLATELET COUNT 284 K/UL (150-450); RED BLOOD COUNT 3.09 M/UL (4.70-6.10); RED CELL DISTRIBUTION WIDTH 17.7 % (11.6-14.8); WHITE BLOOD COUNT 6.9 K/UL (4.8-10.8)
--- NOTE | 2020-08-04 06:00 | NUR ---
NURSE NOTES: BS 157 INSULIN COVERAGE GIVEN
[2020-08-04 06:05] LABS: ALANINE AMINOTRANSFERASE 15 U/L (12-78); ALBUMIN 1.5 G/DL (3.4-5.0); ALBUMIN/GLOBULIN RATIO 0.3 (1.0-2.7); ALKALINE PHOSPHATASE 193 U/L (46-116); ASPARTATE AMINO TRANSFERASE 19 U/L (15-37); BILIRUBIN,TOTAL 0.2 MG/DL (0.2-1.0); BLOOD UREA NITROGEN 18 mg/dL (7-18); CALCIUM 8.3 MG/DL (8.5-10.1); CARBON DIOXIDE 27 MMOL/L (21-32); CHLORIDE 109 MMOL/L (98-107); CREATININE 0.9 MG/DL (0.55-1.30); PHOSPHORUS 2.6 MG/DL (2.5-4.9); POTASSIUM 4.6 MMOL/L (3.5-5.1); SODIUM 141 MMOL/L (136-145)
--- NOTE | 2020-08-04 07:38 | NUR ---
NURSE HAND-OFF REPORT: Latest Vital Signs: Temperature 98.6 , Pulse 80 , B/P 124 /69 , Respiratory Rate 18 , O2 SAT 97 , Mechanical Ventilator, O2 Flow Rate . Vital Sign Comment: EKG Rhythm: Sinus Rhythm Rhythm change?: N Notified?: Grecia Rivera MD Response: Latest Gonzalez Fall Score: 50 Fall Risk: High Risk Safety Measures: Call light Within Reach, Bed Alarm Zone 2, Side Rails Side Rails x2, Bed position Low and Locked. Fall Precautions: Door Sign Report given to URVASHI LOZADA.
--- NOTE | 2020-08-04 07:40 | NUR ---
NURSE NOTES: Pt received from FLORES Urena. Pt observed opening eyes spontaneously; pt grimaces when orally and endotracheally suctioned; gag reflex is intact; pt is unable to follow commands; Bilat pupils equal and round - 3mm with brisk rxn to light. Pt is in NSR to vehicle monitor technician. Radial and dorsalis pedis pulses 3+. Non-pitting edema noted to right arm. Afebrile. Cap refill 2 sec. Pt is orally intubated with a 7.5 noted 25 cm at the lip with the following settings: AC 12 TV 600 FiO2 30% Peep 0. All lung rogers noted diminished. Left naris NGT noted a at approximately 75 cm. No gastric residuals noted. Glucerna 1.2 is running at 60 cc/hr. Bowel sounds are active to all quadrants. Abdomen appears roud, soft, and non-tender. F/C noted draining yellow, clear urine. Skin alterations noted. Pt has a JACQUIE PICC with dry and intact dressing running 1/2 NS at 50 cc/hr. VAULT WORKER restraints noted - skin to both wrists intact without redness. Pt observed attempting to pull medical devices when restraints are temporarily removed and reapplied. Bed in lowest position, alarm on, side rails up x 2, call light within reach. Will continue to monitor.
--- NOTE | 2020-08-04 08:00 | NUR ---
NURSE NOTES: Oral care provided. Pt repositioned and cleaned. Afebrile. 1 BM noted. Will continue to monitor.
--- NOTE | 2020-08-04 08:14 | Infectious Diseases Prog Note ---
Assessment/Plan 79yo M with: Respiratory code 2ry to mucus plug 07/23 Septic Shock- -recurrent Fever, recurrent, low grade;SP Leukocytosis; recurrent; increased Acute hypoxic resp failure, on NRB mask> 4l NC; back on NRB, desaturation 07/09 > intubated 07/17 Pneumonia- >HAP Hx of COVID-19 PNA 05/20/2007/28 CXR: No significant interval change in the radiographic appearance the chest compared to one day prior. 07/25 Resp cx +MRSA, nl resp bobby UCx neg BCx NTD 07/24 COVID PCR neg --07/21 CXR: Bilateral infiltrates in a peribronchovascular distribution are unchanged. Left pleural effusion is unchanged. --07/19 CXR: Persistent bilateral patchy pulmonary opacities, most prominent in the left lower lung. --07/18 ucx neg sp cx MRSA (colonizer at this point) Bcx Neg --07/13 Bcx Neg 07/10 Sp cx MRSA (Vancomycin APOLONIA 1), ESBL E.coli 07/03 BCx NTD UA 15-20 WBC, UCx Neg 07/03 COVID rapid neg; 07/06 rapid COVID PCR + (from prior infection)- not new infection Flu A/B neg CXR: L pna Resp cx MRSA 07/30 Resp cx +ESBL E.coli & PsA 08/01 BCx NTD 08/02 CXR: Small bilateral pleural effusions with moderate vascular c ongestion. Airspace consolidation in the left lower lung field may represent atelectasis however, correlate for infiltrate. This is improving when compared to the prior study. 08/03 BCx ordered 08/03 CXR: Increasing right basilar opacity, likely infiltrate, may also reflect increasing pleural fluid H/o COVID pna Tested positive 05/20/2007/03 Rapid Ag neg 07/06 Rapid Ag positive (from prior disease?) 07/24 COVID PCR neg MELANIE on CKD, improving SN[facility] resident (ed sergio) Non-verbal VRE and MRSA colonized Plan: Cont meropenem #4 / given high fever, ESBL E.coli and PsA pna C.dif if ongoing loose stools F/u repeat BCx 08/03 given ongoing fever (1 from periph, 1 from PICC) Trend temp curve, WBC OK to d/c COVID airborne precautions, infection was now >2 mo ago, no longer infectious -07/31 SP linezolid #7 -07/27 SP meropenem #14 for ESBL pna -07/21 SP Micafungin #4 -07/17 SP IV Vancomycin #15 -07/13 SP Zosyn #4 -07/06 SP Cefepime #4 -07/04 SP Flagyl # Monitor CBC/CMP Monitor resp status Monitor temp curve and hemodynamics D/w RN Thank you for this consult. [facility] will continue to follow. Subjective Allergies: Coded Allergies: No Known Allergies (Unverified , 04/30/12) Tmax 100.0 WBC improving to 6.9 NAD on vent 30% PEEP 0 HDS Objective Last 24 Hour Vital Signs Date Time Temp Pulse Resp B/P (MAP) Pulse Ox O2 Delivery O2 Flow Rate FiO2 08/04/20 07:00 90 28 145/70 (95) 97 08/04/20 06:06 78 12 08/04/20 06:00 80 18 124/69 (87) 97 08/04/20 05:00 81 16 143/85 (104) 99 08/04/20 04:00 90 08/04/20 04:00 30 08/04/20 04:00 Mechanical Ventilator Mechanical Ventilator Mechanical Ventilator 08/04/20 04:00 98.6 71 13 119/60 (79) 99 08/04/20 03:11 67 13 30 08/04/20 03:00 72 13 111/59 (76) 98 08/04/20 02:00 72 13 124/63 (83) 99 08/04/20 01:00 67 13 106/64 (78) 98 08/04/20 00:00 Mechanical Ventilator Mechanical Ventilator Mechanical Ventilator 08/04/20 00:00 30 08/04/20 00:00 74 08/04/20 00:00 98.8 74 14 116/61 (79) 99 08/03/20 23:03 61 12 30 08/03/20 23:00 65 12 110/62 (78) 99 08/03/20 22:00 75 15 150/87 (108) 100 08/03/20 21:00 64 12 119/54 (75) 98 08/03/20 20:00 30 08/03/20 20:00 64 08/03/20 20:00 98.6 66 12 113/56 (75) 97 08/03/20 20:00 Mechanical Ventilator Mechanical Ventilator Mechanical Ventilator 08/03/20 19:32 63 12 30 08/03/20 19:00 65 12 99/50 (66) 97 08/03/20 18:00 98.9 73 12 109/56 (73) 98 08/03/20 17:00 69 12 89/46 (60) 98 08/03/20 16:00 30 08/03/20 16:00 Mechanical Ventilator Mechanical Ventilator Mechanical Ventilator 08/03/20 16:00 72 08/03/20 16:00 70 12 93/54 (67) 98 08/03/20 15:30 77 12 30 08/03/20 15:00 70 12 91/50 (64) 100 08/03/20 14:00 69 12 87/47 (60) 100 08/03/20 13:00 73 12 110/53 (72) 100 08/03/20 12:00 86 08/03/20 12:00 Mechanical Ventilator Mechanical Ventilator Mechanical Ventilator 08/03/20 12:00 30 08/03/20 12:00 99.8 75 12 89/48 (62) 95 08/03/20 11:15 86 12 30 08/03/20 11:00 110 20 110/76 (87) 96 08/03/20 10:44 100.0 08/03/20 10:43 99 24 170/91 97 08/03/20 10:13 121 22 170/90 98 08/03/20 10:00 107 28 170/91 (117) 99 08/03/20 09:30 95 28 134/66 (88) 97 08/03/20 09:00 100.0 100 22 144/78 (100) 98 08/03/20 08:30 98 28 142/81 (101) 99 Height (Feet): 5 Height (Inches): 4.00 Weight (Pounds): 130 Gen: NAD in bed HEENT: NCAT, ETT CV: RRR Pulm: CTAB on vent Abd: Soft, NTND Ext: No c/c/e Neuro: Eyes closed, not interactive Lines: RUE PICC Microbiology Date/Time Source Procedure Growth Status 08/01/20 16:30 Blood Blood Culture - Preliminary NO GROWTH AFTER 48 HOURS Resulted 08/01/20 16:20 Blood Blood Culture - Preliminary NO GROWTH AFTER 48 HOURS Resulted Laboratory Tests Test 08/03/20 13:06 08/03/20 17:51 08/04/20 00:13 08/04/20 03:40 POC Whole Blood Glucose Pending 135 MG/DL (74-106) H 178 MG/DL (74-106) H White Blood Count 6.9 K/UL (4.8-10.8) Red Blood Count 3.09 M/UL (4.70-6.10) L Hemoglobin 9.2 G/DL (14.2-18.0) L Hematocrit 30.6 % (42.0-52.0) L Mean Corpuscular Volume 99 FL (80-99) Mean Corpuscular Hemoglobin 29.9 PG (27.0-31.0) Mean Corpuscular Hemoglobin Concent 30.2 G/DL (32.0-36.0) L Red Cell Distribution Width 17.7 % (11.6-14.8) H Platelet Count 284 K/UL (150-450) Mean Platelet Volume 6.7 FL (6.5-10.1) Neutrophils (%) (Auto) % (45.0-75.0) Lymphocytes (%) (Auto) % (20.0-45.0) Monocytes (%) (Auto) % (1.0-10.0) Eosinophils (%) (Auto) % (0.0-3.0) Basophils (%) (Auto) % (0.0-2.0) Neutrophils % (Manual) Pending Lymphocytes % (Manual) Pending Platelet Estimate Pending Platelet Morphology Pending Erythrocyte Sedimentation Rate 123 MM/HR (0-20) H Sodium Level 141 MMOL/L (136-145) Potassium Level 4.6 MMOL/L (3.5-5.1) Chloride Level 109 MMOL/L (98-107) H Carbon Dioxide Level 27 MMOL/L (21-32) Blood Urea Nitrogen 18 mg/dL (7-18) Creatinine 0.9 MG/DL (0.55-1.30) Estimat Glomerular Filtration Rate > 60 mL/min (>60) Glucose Level 148 MG/DL (74-106) H Calcium Level 8.3 MG/DL (8.5-10.1) L Phosphorus Level 2.6 MG/DL (2.5-4.9) Magnesium Level 2.2 MG/DL (1.8-2.4) Total Bilirubin 0.2 MG/DL (0.2-1.0) Aspartate Amino Transf (AST/SGOT) 19 U/L (15-37) Alanine Aminotransferase (ALT/SGPT) 15 U/L (12-78) Alkaline Phosphatase 193 U/L (46-116) H C-Reactive Protein, Quantitative 10.0 mg/dL (0.00-0.90) H Total Protein 6.7 G/DL (6.4-8.2) Albumin 1.5 G/DL (3.4-5.0) L Globulin 5.2 g/dL Albumin/Globulin Ratio 0.3 (1.0-2.7) L Current Medications Medications (Trade) Dose Ordered Sig/Ankush Route PRN Reason Start Time Stop Time Status Last Admin Dose Admin Acetaminophen (Tylenol) 650 mg Q4H PRN GT Temp >100.5 08/01/20 12:30 08/31/20 12:29 08/03/20 10:14 Albuterol/ Ipratropium (Albuterol/ Ipratropium) 3 ml Q4HRT PRN HHN sob 08/02/20 10:45 08/07/20 10:44 Chlorhexidine Gluconate (Darcy-Hex 2%) 1 applic DAILY@1999 TOPIC 07/17/20 20:00 10/15/20 19:59 08/03/20 19:46 Dexamethasone (Decadron) 6 mg Q24H ORAL 08/02/20 18:00 08/11/20 18:01 08/03/20 17:30 Dextrose (Dextrose 50%) 50 ml Q30M PRN IV Hypoglycemia 07/03/20 22:45 10/01/20 22:44 Heparin Sodium (Porcine) (Heparin 5000 units/ml) 5,000 units EVERY 12 HOURS SUBQ 07/03/20 21:00 08/17/20 20:59 08/03/20 20:24 Insulin Aspart (NovoLOG) EVERY 6 HOURS SUBQ 07/13/20 06:00 10/02/20 06:29 08/04/20 05:41 Lorazepam (Ativan 2mg/ml 1ml) 2 mg Q4H PRN IV For Anxiety 07/28/20 19:15 08/04/20 19:14 08/03/20 10:13 Meropenem 1 gm/ Sodium Chloride 55 ml @ 110 mls/hr Q8H IVPB 08/01/20 10:00 08/06/20 09:59 08/04/20 01:15 Midodrine (Pro-Amatine) 10 mg Q8H ORAL 07/22/20 17:00 10/20/20 16:59 08/04/20 01:14 Nitroglycerin (Ntg) 0.4 mg Q5M PRN SL Prn Chest Pain 08/01/20 10:15 08/31/20 10:09 Ondansetron HCl (Zofran) 4 mg Q6H PRN IVP Nausea & Vomiting 08/01/20 14:30 08/31/20 14:29 Pantoprazole (Protonix) 40 mg DAILY IV 07/18/20 09:00 08/17/20 08:59 08/03/20 08:57 Polyethylene Glycol (Miralax) 17 gm DAILYPRN PRN GT Constipation 08/01/20 10:15 08/31/20 10:14 Promethazine HCl/ Codeine (Phenergan with Codeine) 5 ml Q4H PRN GT For Cough 08/01/20 10:14 08/31/20 10:13 Sodium Chloride 1,000 ml @ 50 mls/hr Q20H IV 07/17/20 16:00 08/16/20 15:59 08/03/20 22:00 Lorie Ramirez M.D. Aug 04, 2020 08:14
[2020-08-04] MEDS: Heparin 5000 units/ml inj SUBQ SCH ×2 (08:55→20:31)
[2020-08-04] MEDS: Pantoprazole Inj IV SCH (08:55)
--- NOTE | 2020-08-04 09:00 | NUR ---
NURSE NOTES: Dr Connors assessing pt at bedside.
--- NOTE | 2020-08-04 10:00 | NUR ---
NURSE NOTES: Pt repositioned. Seen by Dr Connors.
--- NOTE | 2020-08-04 10:30 | Diagnostic Imaging Report ---
Indication: Dyspnea Technique: One view of the chest Comparison: 08/03/2020 Findings: Bilateral infiltrates and bilateral left greater than right pleural effusions are unchanged. Satisfactory stable position of endotracheal tube. The proximal port of the orogastric tube is at or just above the gastroesophageal junction. Again demonstrated is a right arm PICC, tip terminating at the level of the subclavian vein. Right shoulder prosthesis is again demonstrated Impression: Somewhat high position of orogastric tube. Advancement recommended. This finding was discussed with patient's nurse Laurel at the time of interpretation Otherwise stable findings as described
--- NOTE | 2020-08-04 10:46 | NUR ---
NGT advanced an additional [address] Pang's request. STAT KUB ordered.
--- NOTE | 2020-08-04 11:00 | NUR ---
NURSE NOTES: Dr Matt assessing pt at bedside.
--- NOTE | 2020-08-04 11:00 | NUR ---
NURSE NOTES: Pt seen by Dr Ramirez. Confirmed isolation status (airborne isolation discontinued - pt is covid negative).
--- NOTE | 2020-08-04 11:01 | Pulmonolgy Critical Care Note ---
Critical Care - Asmt/Plan Problems: (1) Acute respiratory failure (2) Multifocal pneumonia (3) 2019 novel coronavirus disease (COVID-19) (4) Acute encephalopathy (5) Severe sepsis (6) Alzheimer's dementia (7) HTN (hypertension) (8) History of CVA (cerebrovascular accident) (9) BPH (benign prostatic hyperplasia) Respiratory: monitor respiratory rate, adjust FIO2, ABG Cardiac: continue pressors, continue to monitor HR/BP Renal: F/U I&O, keep IV fluid, check electrolytes Infectious Disease: check cultures Gastrointestinal: continue feedings/current rate Endocrine: monitor blood sugar, check HgA1C Affect: PRN ativan Prophylaxis: Protonix Disposition: keep in ICU Time Spent (Minutes): 40 Notes 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 Discussed with: nurses, consultants, case finisherglobal account manager - Objective Last 24 Hour Vital Signs Date Time Temp Pulse Resp B/P (MAP) Pulse Ox O2 Delivery O2 Flow Rate FiO2 08/04/20 10:00 65 12 132/63 (86) 98 08/04/20 09:30 100 08/04/20 09:00 70 12 101/54 (70) 96 08/04/20 08:00 Mechanical Ventilator Mechanical Ventilator Mechanical Ventilator 08/04/20 08:00 30 08/04/20 08:00 97.9 76 12 100/56 (71) 95 08/04/20 07:15 83 18 30 08/04/20 07:00 90 28 145/70 (95) 97 08/04/20 06:06 78 12 08/04/20 06:00 80 18 124/69 (87) 97 08/04/20 05:00 81 16 143/85 (104) 99 08/04/20 04:00 90 08/04/20 04:00 30 08/04/20 04:00 Mechanical Ventilator Mechanical Ventilator Mechanical Ventilator 08/04/20 04:00 98.6 71 13 119/60 (79) 99 08/04/20 03:11 67 13 30 08/04/20 03:00 72 13 111/59 (76) 98 08/04/20 02:00 72 13 124/63 (83) 99 08/04/20 01:00 67 13 106/64 (78) 98 08/04/20 00:00 Mechanical Ventilator Mechanical Ventilator Mechanical Ventilator 08/04/20 00:00 30 08/04/20 00:00 74 11/24/20 00:00 98.8 74 14 116/61 (79) 99 08/03/20 23:03 61 12 30 08/03/20 23:00 65 12 110/62 (78) 99 08/03/20 22:00 75 15 150/87 (108) 100 08/03/20 21:00 64 12 119/54 (75) 98 08/03/20 20:00 30 08/03/20 20:00 64 08/03/20 20:00 98.6 66 12 113/56 (75) 97 08/03/20 20:00 Mechanical Ventilator Mechanical Ventilator Mechanical Ventilator 08/03/20 19:32 63 12 30 08/03/20 19:00 65 12 99/50 (66) 97 08/03/20 18:00 98.9 73 12 109/56 (73) 98 08/03/20 17:00 69 12 89/46 (60) 98 08/03/20 16:00 30 08/03/20 16:00 Mechanical Ventilator Mechanical Ventilator Mechanical Ventilator 08/03/20 16:00 72 08/03/20 16:00 70 12 93/54 (67) 98 08/03/20 15:30 77 12 30 08/03/20 15:00 70 12 91/50 (64) 100 08/03/20 14:00 69 12 87/47 (60) 100 08/03/20 13:00 73 12 110/53 (72) 100 08/03/20 12:00 86 08/03/20 12:00 Mechanical Ventilator Mechanical Ventilator Mechanical Ventilator 08/03/20 12:00 30 08/03/20 12:00 99.8 75 12 89/48 (62) 95 08/03/20 11:15 86 12 30 08/03/20 11:00 110 20 110/76 (87) 96 Status: awake Condition: critical, improving HEENT: atraumatic Lungs: clear Heart: HR/BP stable Abdomen: soft, non-tender Extremities: no C/C/E Objective: still large secretions, failed weaning Micro: Microbiology Date/Time Source Procedure Growth Status 08/01/20 16:30 Blood Blood Culture - Preliminary NO GROWTH AFTER 48 HOURS Resulted 08/01/20 16:20 Blood Blood Culture - Preliminary NO GROWTH AFTER 48 HOURS Resulted Accucheck: 157 Critical Care - Subjective ROS Limited/Unobtainable: Yes Condition: critical, improving EKG Rhythm: Sinus Rhythm FI02: 30 Vent Support Breath Rate: 12 Vent Support Mode: AC Vent Tidal Volume: 600 Sputum Amount: Moderate PEEP: 0.0 PIP: 40 Tube Feeding Amount: 60 I&O: Intake and Output 08/03/20 08/04/20 19:00 07:00 Intake Total 1540 ml 1375 ml Output Total 1105 ml 1135 ml Balance 435 ml 240 ml IV Total 820 ml 655 ml Tube Feeding 720 ml 720 ml Output Urine Total 1105 ml 1135 ml # Bowel Movements 2 ET-Tube: 7.5 ET Position: 25 Labs: Laboratory Tests Test 08/03/20 13:06 08/03/20 17:51 08/04/20 00:13 08/04/20 03:40 POC Whole Blood Glucose Pending 135 MG/DL (74-106) H 178 MG/DL (74-106) H White Blood Count 6.9 K/UL (4.8-10.8) Red Blood Count 3.09 M/UL (4.70-6.10) L Hemoglobin 9.2 G/DL (14.2-18.0) L Hematocrit 30.6 % (42.0-52.0) L Mean Corpuscular Volume 99 FL (80-99) Mean Corpuscular Hemoglobin 29.9 PG (27.0-31.0) Mean Corpuscular Hemoglobin Concent 30.2 G/DL (32.0-36.0) L Red Cell Distribution Width 17.7 % (11.6-14.8) H Platelet Count 284 K/UL (150-450) Mean Platelet Volume 6.7 FL (6.5-10.1) Neutrophils (%) (Auto) % (45.0-75.0) Lymphocytes (%) (Auto) % (20.0-45.0) Monocytes (%) (Auto) % (1.0-10.0) Eosinophils (%) (Auto) % (0.0-3.0) Basophils (%) (Auto) % (0.0-2.0) Differential Total Cells Counted 100 Neutrophils % (Manual) 89 % (45-75) H Lymphocytes % (Manual) 8 % (20-45) L Monocytes % (Manual) 3 % (1-10) Eosinophils % (Manual) 0 % (0-3) Basophils % (Manual) 0 % (0-2) Band Neutrophils 0 % (0-8) Platelet Estimate Adequate Platelet Morphology Normal Hypochromasia 1+ Anisocytosis 1+ Macrocytosis 1+ Erythrocyte Sedimentation Rate 123 MM/HR (0-20) H Sodium Level 141 MMOL/L (136-145) Potassium Level 4.6 MMOL/L (3.5-5.1) Chloride Level 109 MMOL/L (98-107) H Carbon Dioxide Level 27 MMOL/L (21-32) Blood Urea Nitrogen 18 mg/dL (7-18) Creatinine 0.9 MG/DL (0.55-1.30) Estimat Glomerular Filtration Rate > 60 mL/min (>60) Glucose Level 148 MG/DL (74-106) H Calcium Level 8.3 MG/DL (8.5-10.1) L Phosphorus Level 2.6 MG/DL (2.5-4.9) Magnesium Level 2.2 MG/DL (1.8-2.4) Total Bilirubin 0.2 MG/DL (0.2-1.0) Aspartate Amino Transf (AST/SGOT) 19 U/L (15-37) Alanine Aminotransferase (ALT/SGPT) 15 U/L (12-78) Alkaline Phosphatase 193 U/L (46-116) H C-Reactive Protein, Quantitative 10.0 mg/dL (0.00-0.90) H Total Protein 6.7 G/DL (6.4-8.2) Albumin 1.5 G/DL (3.4-5.0) L Globulin 5.2 g/dL Albumin/Globulin Ratio 0.3 (1.0-2.7) L Kya Carreno MD Aug 04, 2020 11:00
--- NOTE | 2020-08-04 11:23 | NUR ---
RADIOLOGY DEPT., CHEST X-RAY PERFORMED.-P.DYE
--- NOTE | 2020-08-04 12:00 | NUR ---
NURSE NOTES: Pt repositioned. Oral care provided. Axillary temp 98.9 F. No distress noted.
--- NOTE | 2020-08-04 13:04 | Cardiac Electrophysiology PN ---
Assessment/Plan Assessment/Plan 1. Accelerated junctional rhythm. Ruled out for LA Echo showed ejection fraction of 55%. 2. Long run of 31 beats of Nonsustained VT on 07/14/2020. Cardiac cath after stabilization. 3. Aníbal 30, Asystole while on the Vent due to resp failure/ likely mucus plug . S/P Code 4. Respiratory failure, on antibiotic and intubated on the vent Failed weaning. Family refused tracheostomy 5. Septic shock. Off Levophed and on Midodrine 10 tid 6. History of previous COVID infection in May 2020 and active Covid in isolation Now negative again 7. Dementia. SHAYY RN and Dr hernandez Subjective Subjective In ICU on the Vent Fio2 30%, PEEP 5 Had 31 beats of VT on 07/14/20 at 16:46 and 5 beats 07/19/20 Coded on 07/23/20 as sat dropped to 20% and got aníbal 30s and PEA and pulseless Off Levophed and on Midodrine 10 tid Covid test was negative. But still febrile. Failed weaning again. Family refusing tracheostomy. Objective Last 24 Hour Vital Signs Date Time Temp Pulse Resp B/P (MAP) Pulse Ox O2 Delivery O2 Flow Rate FiO2 08/04/20 12:00 30 08/04/20 11:01 75 18 30 08/04/20 11:00 73 12 129/64 (85) 98 08/04/20 10:00 65 12 132/63 (86) 98 08/04/20 09:30 100 08/04/20 09:00 70 12 101/54 (70) 96 08/04/20 08:00 80 08/04/20 08:00 Mechanical Ventilator Mechanical Ventilator Mechanical Ventilator 08/04/20 08:00 30 08/04/20 08:00 97.9 76 12 100/56 (71) 95 08/04/20 07:15 83 18 30 08/04/20 07:00 90 28 145/70 (95) 97 08/04/20 06:06 78 12 08/04/20 06:00 80 18 124/69 (87) 97 08/04/20 05:00 81 16 143/85 (104) 99 08/04/20 04:00 90 08/04/20 04:00 30 08/04/20 04:00 Mechanical Ventilator Mechanical Ventilator Mechanical Ventilator 08/04/20 04:00 98.6 71 13 119/60 (79) 99 08/04/20 03:11 67 13 30 08/04/20 03:00 72 13 111/59 (76) 98 08/04/20 02:00 72 13 124/63 (83) 99 08/04/20 01:00 67 13 106/64 (78) 98 08/04/20 00:00 Mechanical Ventilator Mechanical Ventilator Mechanical Ventilator 08/04/20 00:00 30 08/04/20 00:00 74 08/04/20 00:00 98.8 74 14 116/61 (79) 99 08/03/20 23:03 61 12 30 08/03/20 23:00 65 12 110/62 (78) 99 08/03/20 22:00 75 15 150/87 (108) 100 08/03/20 21:00 64 12 119/54 (75) 98 08/03/20 20:00 30 08/03/20 20:00 64 08/03/20 20:00 98.6 66 12 113/56 (75) 97 08/03/20 20:00 Mechanical Ventilator Mechanical Ventilator Mechanical Ventilator 08/03/20 19:32 63 12 30 08/03/20 19:00 65 12 99/50 (66) 97 08/03/20 18:00 98.9 73 12 109/56 (73) 98 08/03/20 17:00 69 12 89/46 (60) 98 08/03/20 16:00 30 08/03/20 16:00 Mechanical Ventilator Mechanical Ventilator Mechanical Ventilator 08/03/20 16:00 72 08/03/20 16:00 70 12 93/54 (67) 98 08/03/20 15:30 77 12 30 08/03/20 15:00 70 12 91/50 (64) 100 08/03/20 14:00 69 12 87/47 (60) 100 Intake and Output 08/03/20 08/04/20 19:00 07:00 Intake Total 1540 ml 1375 ml Output Total 1105 ml 1135 ml Balance 435 ml 240 ml IV Total 820 ml 655 ml Tube Feeding 720 ml 720 ml Output Urine Total 1105 ml 1135 ml # Bowel Movements 2 Laboratory Tests Test 08/03/20 13:06 08/03/20 17:51 08/04/20 00:13 08/04/20 03:40 POC Whole Blood Glucose Pending 135 MG/DL (74-106) H 178 MG/DL (74-106) H White Blood Count 6.9 K/UL (4.8-10.8) Red Blood Count 3.09 M/UL (4.70-6.10) L Hemoglobin 9.2 G/DL (14.2-18.0) L Hematocrit 30.6 % (42.0-52.0) L Mean Corpuscular Volume 99 FL (80-99) Mean Corpuscular Hemoglobin 29.9 PG (27.0-31.0) Mean Corpuscular Hemoglobin Concent 30.2 G/DL (32.0-36.0) L Red Cell Distribution Width 17.7 % (11.6-14.8) H Platelet Count 284 K/UL (150-450) Mean Platelet Volume 6.7 FL (6.5-10.1) Neutrophils (%) (Auto) % (45.0-75.0) Lymphocytes (%) (Auto) % (20.0-45.0) Monocytes (%) (Auto) % (1.0-10.0) Eosinophils (%) (Auto) % (0.0-3.0) Basophils (%) (Auto) % (0.0-2.0) Differential Total Cells Counted 100 Neutrophils % (Manual) 89 % (45-75) H Lymphocytes % (Manual) 8 % (20-45) L Monocytes % (Manual) 3 % (1-10) Eosinophils % (Manual) 0 % (0-3) Basophils % (Manual) 0 % (0-2) Band Neutrophils 0 % (0-8) Platelet Estimate Adequate Platelet Morphology Normal Hypochromasia 1+ Anisocytosis 1+ Macrocytosis 1+ Erythrocyte Sedimentation Rate 123 MM/HR (0-20) H Sodium Level 141 MMOL/L (136-145) Potassium Level 4.6 MMOL/L (3.5-5.1) Chloride Level 109 MMOL/L (98-107) H Carbon Dioxide Level 27 MMOL/L (21-32) Blood Urea Nitrogen 18 mg/dL (7-18) Creatinine 0.9 MG/DL (0.55-1.30) Estimat Glomerular Filtration Rate > 60 mL/min (>60) Glucose Level 148 MG/DL (74-106) H Calcium Level 8.3 MG/DL (8.5-10.1) L Phosphorus Level 2.6 MG/DL (2.5-4.9) Magnesium Level 2.2 MG/DL (1.8-2.4) Total Bilirubin 0.2 MG/DL (0.2-1.0) Aspartate Amino Transf (AST/SGOT) 19 U/L (15-37) Alanine Aminotransferase (ALT/SGPT) 15 U/L (12-78) Alkaline Phosphatase 193 U/L (46-116) H C-Reactive Protein, Quantitative 10.0 mg/dL (0.00-0.90) H Total Protein 6.7 G/DL (6.4-8.2) Albumin 1.5 G/DL (3.4-5.0) L Globulin 5.2 g/dL Albumin/Globulin Ratio 0.3 (1.0-2.7) L Microbiology Date/Time Source Procedure Growth Status 08/01/20 16:30 Blood Blood Culture - Preliminary NO GROWTH AFTER 48 HOURS Resulted 08/01/20 16:20 Blood Blood Culture - Preliminary NO GROWTH AFTER 48 HOURS Resulted Objective HEAD AND NECK: No JVD. Orally intubated LUNGS: Coarse rhonchi. CARDIOVASCULAR: Irregular S1 and S2 with no gallop. ABDOMEN: Soft. EXTREMITIES: No pitting edema. Klever Matt MD Aug 04, 2020 13:04
--- NOTE | 2020-08-04 13:17 | Nephrology Progress Note ---
Assessment/Plan Problem List: (1) Dehydration (2) MELANIE (acute kidney injury) (3) Renal failure (ARF), acute on chronic (4) Hypoxia (5) Acute encephalopathy (6) Electrolyte imbalance Assessment 79-year-old male is admitted with acute hypoxic respiratory failure most likely secondary to pneumonia and sepsis, UTI. Acute on chronic renal failure Dehydration Electrolyte imbalances, hypernatremia Hypoalbuminemia Diabetes type 2 History of congestive heart failure Hypertension Hyperlipemia Alzheimer's Previous COVID-19 infection in May 2020 Plan August 04: Labs reviewed. Discussed with RN. Stable from renal standpoint of view. Main issue is weaning from ventilator that keeps failing. Continue per consultants. August 03: Labs reviewed. Discussed with RN. Stable from renal standpoint of view. Continue per consultants. August 02: Patient seen and discussed with RN. Labs reviewed. Remains intubated. Trial of weaning this being attempted. Continue per consultants. August 01: Remains intubated. Labs reviewed. Renal parameters stable. Continue per consultants. July 31: Remains on mechanical ventilation. Labs reviewed. Abnormal electrolytes addressed. Stable from renal standpoint of view. July 30: Remains intubated. Remains full code. Labs reviewed. Low phosphorus replaced. Continue to monitor renal parameters. Continue per consultants. July 29: Failed weaning. Remains intubated. Remains full closed. Labs reviewed. Stable from renal standpoint view. July 28: Remains in ICU. Remains full code. Labs are reviewed. Phosphorus supplement given. Continue per consultants. July 27: Remains in ICU. Full code. Labs reviewed. Remains intubated. Stable renal parameters. July 26: In ICU. Full code. Discussed with RN. Stable renal parameters. July 25: Seen in ICU. Discussed with FLORES Holliday. Flomax discontinued. Labs reviewed. Stable from renal standpoint of view. July 24: Seen in ICU. Discussed with FLORES Holliday. Remains on pressor. Electrolyte abnormalities noted and addressed. Continue per consultants. Patient remains full code. July 23: Seen in ICU. Discussed with FLORES Barrera. Blood pressure remains a little requiring pressors. Labs reviewed. Stable renal parameters. Continue per consultants. July 22: Remains intubated. Full code. Blood pressure borderline low. Will increase midodrine dose. Discussed with RN. Continue to monitor renal parameters and electrolytes. July 21: Intubated. Full code. Labs reviewed. Stable from renal standpoint of view. Continue per consultants. July 20: Remains intubated. Full code. Labs reviewed. Electrolytes within normal limit. Continue per consultants. July 19: In ICU. Remains intubated on ventilator. Remains full code. Low potassium addressed. Blood pressure fluctuating. Continue per consultants. July 18: Patient in ICU. Intubated on ventilator. On 6 mics of Levophed. Will give 100 cc albumin 25%. K-Phos IV ordered. Continue per consultants. Continue monitor renal parameters and electrolytes. July 17: Status unchanged. Transfer to [facility] for seizure. Stable from renal standpoint to view. Continue per consultants. July 16: Status quo. Labs reviewed. Renal parameters stable. Continue per consultants. July 15: On nonrebreather mask. Labs reviewed. Renal parameters stable.Continue per director occupational. Clinically unchanged. July 14: On nonrebreather mask. Inflammatory markers gradually declining. Renal parameters stable. Continue per pulmonary. July 13: Remains on nonrebreather mask. Inflammatory markers remain elevated. Renal parameters somewhat stable. Continue per pulmonary and ID. Remains full code. July 12: Patient on nonrebreather mask. Labs noted. Serum creatinine down to 1.3. Continue per consultants. July 11: Patient on nonrebreather mask. Transfer to telemetry when seen this morning. Labs noted. Continue per consultants. Serum creatinine erin to 1.7. Continue to monitor renal parameters. Continue to monitor vancomycin level July 10: Patient is not doing well clinically. Mild respiratory distress. ABG noted. Somewhat hypoxic. CBC and chemistry panel ordered. Discussed with FLORES Cho. Will defer to pulmonary management to specialist. Continue per ID. Renal parameters remained stable as of July 09. July 09: Labs reviewed. Renal parameters stable. Continue per consultants. July 08: Labs reviewed. Potassium via NG tube ordered. IV fluids stopped. Continue per consultants. July 07: Labs reviewed. Low potassium and low phosphorus replaced. Continue per consultants. Remains stable from renal standpoint of view. July 06: Patient remains n.p.o. IV fluid down to 50 cc an hour. Potassium supplement intravenously ordered. Continue per consultants. Previously: Patient is n.p.o., will continue on IV fluid of D5W 75 cc an hour We will monitor electrolytes and renal parameters Avoid nephrotoxic's Start p.o. when he clears by speech therapist, meanwhile aspiration precautions Keep the blood pressure and blood sugar in check Per orders Subjective ROS Limited/Unobtainable: Yes Objective Objective Last 24 Hour Vital Signs Date Time Temp Pulse Resp B/P (MAP) Pulse Ox O2 Delivery O2 Flow Rate FiO2 08/04/20 12:00 30 08/04/20 11:01 75 18 30 08/04/20 11:00 73 12 129/64 (85) 98 08/04/20 10:00 65 12 132/63 (86) 98 08/04/20 09:30 100 08/04/20 09:00 70 12 101/54 (70) 96 08/04/20 08:00 80 08/04/20 08:00 Mechanical Ventilator Mechanical Ventilator Mechanical Ventilator 08/04/20 08:00 30 08/04/20 08:00 97.9 76 12 100/56 (71) 95 08/04/20 07:15 83 18 30 08/04/20 07:00 90 28 145/70 (95) 97 08/04/20 06:06 78 12 08/04/20 06:00 80 18 124/69 (87) 97 08/04/20 05:00 81 16 143/85 (104) 99 08/04/20 04:00 90 08/04/20 04:00 30 08/04/20 04:00 Mechanical Ventilator Mechanical Ventilator Mechanical Ventilator 08/04/20 04:00 98.6 71 13 119/60 (79) 99 08/04/20 03:11 67 13 30 08/04/20 03:00 72 13 111/59 (76) 98 08/04/20 02:00 72 13 124/63 (83) 99 08/04/20 01:00 67 13 106/64 (78) 98 08/04/20 00:00 Mechanical Ventilator Mechanical Ventilator Mechanical Ventilator 08/04/20 00:00 30 08/04/20 00:00 74 08/04/20 00:00 98.8 74 14 116/61 (79) 99 08/03/20 23:03 61 12 30 08/03/20 23:00 65 12 110/62 (78) 99 08/03/20 22:00 75 15 150/87 (108) 100 08/03/20 21:00 64 12 119/54 (75) 98 08/03/20 20:00 30 08/03/20 20:00 64 08/03/20 20:00 98.6 66 12 113/56 (75) 97 08/03/20 20:00 Mechanical Ventilator Mechanical Ventilator Mechanical Ventilator 08/03/20 19:32 63 12 30 08/03/20 19:00 65 12 99/50 (66) 97 08/03/20 18:00 98.9 73 12 109/56 (73) 98 08/03/20 17:00 69 12 89/46 (60) 98 08/03/20 16:00 30 08/03/20 16:00 Mechanical Ventilator Mechanical Ventilator Mechanical Ventilator 08/03/20 16:00 72 08/03/20 16:00 70 12 93/54 (67) 98 08/03/20 15:30 77 12 30 08/03/20 15:00 70 12 91/50 (64) 100 08/03/20 14:00 69 12 87/47 (60) 100 Intake and Output 08/03/20 08/04/20 19:00 07:00 Intake Total 1540 ml 1375 ml Output Total 1105 ml 1135 ml Balance 435 ml 240 ml IV Total 820 ml 655 ml Tube Feeding 720 ml 720 ml Output Urine Total 1105 ml 1135 ml # Bowel Movements 2 Current Medications Medications (Trade) Dose Ordered Sig/Ankush Route PRN Reason Start Time Stop Time Status Last Admin Dose Admin Acetaminophen (Tylenol) 650 mg Q4H PRN GT Temp >100.5 08/01/20 12:30 08/31/20 12:29 08/03/20 10:14 Albuterol/ Ipratropium (Albuterol/ Ipratropium) 3 ml Q4HRT PRN HHN sob 08/02/20 10:45 08/07/20 10:44 Chlorhexidine Gluconate (Darcy-Hex 2%) 1 applic DAILY@2000 TOPIC 07/17/20 20:00 10/15/20 19:59 08/03/20 19:46 Dexamethasone (Decadron) 6 mg Q24H ORAL 08/02/20 18:00 08/11/20 18:01 08/03/20 17:30 Dextrose (Dextrose 50%) 50 ml Q30M PRN IV Hypoglycemia 07/03/20 22:45 10/01/20 22:44 Heparin Sodium (Porcine) (Heparin 5000 units/ml) 5,000 units EVERY 12 HOURS SUBQ 07/03/20 21:00 08/17/20 20:59 08/04/20 08:55 Insulin Aspart (NovoLOG) EVERY 6 HOURS SUBQ 07/13/20 06:00 10/02/20 06:29 08/04/20 11:59 Lorazepam (Ativan 2mg/ml 1ml) 2 mg Q4H PRN IV For Anxiety 07/28/20 19:15 08/04/20 19:14 08/03/20 10:13 Meropenem 1 gm/ Sodium Chloride 55 ml @ 110 mls/hr Q8H IVPB 08/01/20 10:00 08/06/20 09:59 08/04/20 09:04 Midodrine (Pro-Amatine) 10 mg Q8H ORAL 07/22/20 17:00 10/20/20 16:59 08/04/20 08:55 Nitroglycerin (Ntg) 0.4 mg Q5M PRN SL Prn Chest Pain 08/01/20 10:15 08/31/20 10:09 Ondansetron HCl (Zofran) 4 mg Q6H PRN IVP Nausea & Vomiting 08/01/20 14:30 08/31/20 14:29 Pantoprazole (Protonix) 40 mg DAILY IV 07/18/20 09:00 08/17/20 08:59 08/04/20 08:55 Polyethylene Glycol (Miralax) 17 gm DAILYPRN PRN GT Constipation 08/01/20 10:15 08/31/20 10:14 Promethazine HCl/ Codeine (Phenergan with Codeine) 5 ml Q4H PRN GT For Cough 08/01/20 10:14 08/31/20 10:13 Sodium Chloride 1,000 ml @ 50 mls/hr Q20H IV 07/17/20 16:00 08/16/20 15:59 08/03/20 22:00 Laboratory Tests 08/03/20 17:51: POC Whole Blood Glucose 135H 08/04/20 00:13: POC Whole Blood Glucose 178H 08/04/20 03:40: White Blood Count 6.9, Red Blood Count 3.09L, Hemoglobin 9.2L, Hematocrit 30.6L, Mean Corpuscular Volume 99, Mean Corpuscular Hemoglobin 29.9, Mean Corpuscular Hemoglobin Concent 30.2L, Red Cell Distribution Width 17.7H, Platelet Count 284, Mean Platelet Volume 6.7, Neutrophils (%) (Auto) , Lymphocytes (%) (Auto) , Monocytes (%) (Auto) , Eosinophils (%) (Auto) , Basophils (%) (Auto) , Differential Total Cells Counted 100, Neutrophils % (Manual) 89H, Lymphocytes % (Manual) 8L, Monocytes % (Manual) 3, Eosinophils % (Manual) 0, Basophils % (Manual) 0, Band Neutrophils 0, Platelet Estimate Adequate, Platelet Morphology Normal, Hypochromasia 1+, Anisocytosis 1+, Macrocytosis 1+, Erythrocyte Sedimentation Rate 123H, Sodium Level 141, Potassium Level 4.6, Chloride Level 109H, Carbon Dioxide Level 27, Blood Urea Nitrogen 18, Creatinine 0.9, Estimat Glomerular Filtration Rate > 60, Glucose Level 148H, Calcium Level 8.3L, Phosphorus Level 2.6, Magnesium Level 2.2, Total Bilirubin 0.2, Aspartate Amino Transf (AST/SGOT) 19, Alanine Aminotransferase (ALT/SGPT) 15, Alkaline Phosphatase 193H, C-Reactive Protein, Quantitative 10.0H, Total Protein 6.7, Albumin 1.5L, Globulin 5.2, Albumin/Globulin Ratio 0.3L Height (Feet): 5 Height (Inches): 4.00 Weight (Pounds): 130 General Appearance: no apparent distress EENT: other - Intubated on ventilator Cardiovascular: normal peripheral pulses Abdomen: distended Tino Connors MD Aug 04, 2020 13:17
--- NOTE | 2020-08-04 13:51 | Diagnostic Imaging Report ---
Indication: Status post nasogastric tube advancement Technique: Supine view of the abdomen Comparison: Chest radiograph earlier the same day Findings: Interval advancement of nasogastric tube, tip now positioned at the level the gastric antrum, position is satisfactory. Bowel gas pattern is unremarkable. Impression: Improved and now satisfactory position of previously malpositioned nasogastric tube
--- NOTE | 2020-08-04 14:00 | NUR ---
NURSE NOTES: Pt repositioned. No distress noted.
--- NOTE | 2020-08-04 15:51 | NUR ---
RESPIRATORY NOTE:Received pt on current vent settings, No respiratory distress, vent is plugged into red outlet, BVM is located in the room, checked for skin breakdown around anchor fast, alarms are set and audible, will continue to monitor
--- NOTE | 2020-08-04 16:00 | NUR ---
NURSE NOTES: Pt repositioned. Oral care provided. remains afebrile. Pt endotracheally suctioned per RT Deuce.
[2020-08-04] MEDS ORDERED: Sterile Water Irrig 1000ml IRRIG ONE (16:17)
[2020-08-04] MEDS ORDERED: 1/2 NS 1000ml IV ONE ×2 (16:17→16:19)
[2020-08-04] MEDS ORDERED: NS 275ml ONE (16:19)
--- NOTE | 2020-08-04 17:59 | Internal Med Progress Note ---
Subjective Date of Service: Aug 04, 2020 Physician Name Dano Groves Attending Physician Ahsan Hodges MD Current Medications Medications (Trade) Dose Ordered Sig/Ankush Route PRN Reason Start Time Stop Time Status Last Admin Dose Admin Acetaminophen (Tylenol) 650 mg Q4H PRN GT Temp >100.5 08/01/20 12:30 08/31/20 12:29 08/03/20 10:14 Albuterol/ Ipratropium (Albuterol/ Ipratropium) 3 ml Q4HRT PRN HHN sob 08/02/20 10:45 08/07/20 10:44 Chlorhexidine Gluconate (Darcy-Hex 2%) 1 applic DAILY@2000 TOPIC 07/17/20 20:00 10/15/20 19:59 08/03/20 19:46 Dexamethasone (Decadron) 6 mg Q24H ORAL 08/02/20 18:00 08/11/20 18:01 08/04/20 17:01 Dextrose (Dextrose 50%) 50 ml Q30M PRN IV Hypoglycemia 07/03/20 22:45 10/01/20 22:44 Heparin Sodium (Porcine) (Heparin 5000 units/ml) 5,000 units EVERY 12 HOURS SUBQ 07/03/20 21:00 08/17/20 20:59 08/04/20 08:55 Insulin Aspart (NovoLOG) EVERY 6 HOURS SUBQ 07/13/20 06:00 10/02/20 06:29 08/04/20 11:59 Lorazepam (Ativan 2mg/ml 1ml) 2 mg Q4H PRN IV For Anxiety 07/28/20 19:15 08/04/20 19:14 08/03/20 10:13 Meropenem 1 gm/ Sodium Chloride 55 ml @ 110 mls/hr Q8H IVPB 08/01/20 10:00 08/06/20 09:59 08/04/20 17:02 Midodrine (Pro-Amatine) 10 mg Q8H ORAL 07/22/20 17:00 10/20/20 16:59 08/04/20 17:01 Nitroglycerin (Ntg) 0.4 mg Q5M PRN SL Prn Chest Pain 08/01/20 10:15 08/31/20 10:09 Ondansetron HCl (Zofran) 4 mg Q6H PRN IVP Nausea & Vomiting 08/01/20 14:30 08/31/20 14:29 Pantoprazole (Protonix) 40 mg DAILY IV 07/18/20 09:00 08/17/20 08:59 08/04/20 08:55 Polyethylene Glycol (Miralax) 17 gm DAILYPRN PRN GT Constipation 08/01/20 10:15 08/31/20 10:14 Promethazine HCl/ Codeine (Phenergan with Codeine) 5 ml Q4H PRN GT For Cough 08/01/20 10:14 08/31/20 10:13 Sodium Chloride 1,000 ml @ 50 mls/hr Q20H IV 07/17/20 16:00 08/16/20 15:59 08/03/20 22:00 Allergies: Coded Allergies: No Known Allergies (Unverified , 04/30/12) ROS Limited/Unobtainable: Yes Subjective 79 YO M admitted with shortness of breath. Now pneumonia; previously COVID positive. Cover for Int med-Dr Hodges. ICU. Intubated and sedated. Objective Last Vital Signs Date Time Temp Pulse Resp B/P (MAP) Pulse Ox O2 Delivery O2 Flow Rate FiO2 08/04/20 17:00 69 13 119/59 (79) 96 08/04/20 16:00 Mechanical Ventilator Mechanical Ventilator Mechanical Ventilator 08/04/20 16:00 30 08/04/20 12:00 98.9 Laboratory Tests Test 08/04/20 00:13 08/04/20 03:40 08/04/20 04:29 POC Whole Blood Glucose 178 MG/DL (74-106) H 157 MG/DL (74-106) H White Blood Count 6.9 K/UL (4.8-10.8) Red Blood Count 3.09 M/UL (4.70-6.10) L Hemoglobin 9.2 G/DL (14.2-18.0) L Hematocrit 30.6 % (42.0-52.0) L Mean Corpuscular Volume 99 FL (80-99) Mean Corpuscular Hemoglobin 29.9 PG (27.0-31.0) Mean Corpuscular Hemoglobin Concent 30.2 G/DL (32.0-36.0) L Red Cell Distribution Width 17.7 % (11.6-14.8) H Platelet Count 284 K/UL (150-450) Mean Platelet Volume 6.7 FL (6.5-10.1) Neutrophils (%) (Auto) % (45.0-75.0) Lymphocytes (%) (Auto) % (20.0-45.0) Monocytes (%) (Auto) % (1.0-10.0) Eosinophils (%) (Auto) % (0.0-3.0) Basophils (%) (Auto) % (0.0-2.0) Differential Total Cells Counted 100 Neutrophils % (Manual) 89 % (45-75) H Lymphocytes % (Manual) 8 % (20-45) L Monocytes % (Manual) 3 % (1-10) Eosinophils % (Manual) 0 % (0-3) Basophils % (Manual) 0 % (0-2) Band Neutrophils 0 % (0-8) Platelet Estimate Adequate Platelet Morphology Normal Hypochromasia 1+ Anisocytosis 1+ Macrocytosis 1+ Erythrocyte Sedimentation Rate 123 MM/HR (0-20) H Sodium Level 141 MMOL/L (136-145) Potassium Level 4.6 MMOL/L (3.5-5.1) Chloride Level 109 MMOL/L (98-107) H Carbon Dioxide Level 27 MMOL/L (21-32) Blood Urea Nitrogen 18 mg/dL (7-18) Creatinine 0.9 MG/DL (0.55-1.30) Estimat Glomerular Filtration Rate > 60 mL/min (>60) Glucose Level 148 MG/DL (74-106) H Calcium Level 8.3 MG/DL (8.5-10.1) L Phosphorus Level 2.6 MG/DL (2.5-4.9) Magnesium Level 2.2 MG/DL (1.8-2.4) Total Bilirubin 0.2 MG/DL (0.2-1.0) Aspartate Amino Transf (AST/SGOT) 19 U/L (15-37) Alanine Aminotransferase (ALT/SGPT) 15 U/L (12-78) Alkaline Phosphatase 193 U/L (46-116) H C-Reactive Protein, Quantitative 10.0 mg/dL (0.00-0.90) H Total Protein 6.7 G/DL (6.4-8.2) Albumin 1.5 G/DL (3.4-5.0) L Globulin 5.2 g/dL Albumin/Globulin Ratio 0.3 (1.0-2.7) L Intake and Output 08/03/20 08/04/20 19:00 07:00 Intake Total 1540 ml 1375 ml Output Total 1105 ml 1135 ml Balance 435 ml 240 ml IV Total 820 ml 655 ml Tube Feeding 720 ml 720 ml Output Urine Total 1105 ml 1135 ml # Bowel Movements 2 Objective PHYSICAL EXAMINATION: GENERAL: The patient awake with deep stimuli, open his eyes, however, cannot follow commands. The patient is on a Ventimask at this time, chronically ill-appearing. HEAD AND NECK: Pupils are equal and reactive to light. Anicteric. NECK: Supple. No JVD. LUNGS: Mech vent; wheezing, rhonchi, and decreased air in bases. HEART: S1, S2. Regular rhythm. Distant heart sounds. No murmur or gallop. ABDOMEN: Soft, nondistended, nontender. Positive bowel sounds. EXTREMITIES: No cyanosis, clubbing, or edema. NEUROLOGIC: Very limited secondary to the patient's status, cannot follow commands. Opens his eyes with deep stimuli and moving extremities spontaneously. Assessment/Plan Assessment/Plan ASSESSMENT: 1. Acute hypoxemic respiratory failure, most likely secondary to pneumonia and sepsis. 2. Sepsis secondary to urinary tract infection and pneumonia. 3. pneumonia=MRSA; ESBL E. coli 4. Acute kidney injury on chronic renal insufficiency. 5. Dehydration. 6. History of chronic congestive heart failure. 7. Diabetes type 2. 8. Dyslipidemia. 9. Hypertension. 10. Alzheimer's disease. 11. COVID 19 previous positive PLAN: 1. ICU 2. Dr. Carreno,=Pulmonary Critical Care; follow mech vent recs 3. Dr. Cho = Inf Dis. 4. IV= D5W due to the hypernatremia and dehydration. 5. antibiotics = meropenem; S/P micafungin and zyvox 6. Code status is full code. 7. DVT prophylaxis is heparin subcutaneous. Dano Groves MD Aug 04, 2020 17:59
--- NOTE | 2020-08-04 18:00 | NUR ---
NURSE NOTES: Pt cleaned and repositioned. no acute distress noted.
--- NOTE | 2020-08-04 18:48 | NUR ---
RESPIRATORY NOTE: Received pt on AC VC 12, 600VT, 30%, no PEEP. Pt is intubated w/ ETT 7.5 @ 25cm lipline, secured by anchorfast. Pt awake, responds to stimuli. B/S christian. rales/rhonchi, sxn moderate to large amounts of thick/thin, clear-white to pale-yellow secretions. Vent plugged into red outlet, ambubag at bedside. Pt in no apparent distress at this time. Will continue to monitor pt.
--- NOTE | 2020-08-04 19:03 | NUR ---
NURSE HAND-OFF REPORT: Latest Vital Signs: Temperature 98.8 , Pulse 67 , B/P 50 /68 , Respiratory Rate 13 , O2 SAT 97 , Mechanical Ventilator, FiO2 30% . Vital Sign Comment: stable EKG Rhythm: Sinus Rhythm Rhythm change?: N MD Notified?: Pt seen by Dr Shaka EDUARDO Response: n/a Latest Gonzalez Fall Score: 50 Fall Risk: High Risk Safety Measures: Call light Within Reach, Bed Alarm Zone 2, Side Rails Side Rails x2, Bed position Low and Locked. Fall Precautions: Door Sign Report given to FLORES Urena.
[2020-08-04] MEDS: Dyna-Hex 2% Top Sol 2oz TOPIC SCH (19:50)
--- NOTE | 2020-08-04 20:00 | NUR ---
NURSE NOTES: received report from frances rn pt orally intubated -vent o2 sat 95-100% awake but confuse on christian soft wrest restraint non complaint reposition and suction no acute resp distress
--- NOTE | 2020-08-04 22:00 | NUR ---
NURSE NOTES: asleep no acute resp distress
[2020-08-05] VITALS (23 sets, daily range): BP systolic 91–148; BP diastolic 50–80
--- NOTE | 2020-08-05 | NUR ---
NURSE NOTES: bs 153 insulin coverage given
[2020-08-05] MEDS: Midodrine 10mg tab ORAL SCH ×2 (01:25→09:00)
[2020-08-05] MEDS: Meropenem 1 GM in NS 55 ML IVPB SCH ×3 (01:25→18:17)
--- NOTE | 2020-08-05 02:00 | NUR ---
NURSE NOTES: reposition and suction
--- NOTE | 2020-08-05 04:00 | NUR ---
NURSE NOTES: ngt cloted ngt reinserted kub order for placement complete bed bath reposition and suction
[2020-08-05 04:49] LABS: BASOPHILS % (AUTO) 0.1 % (0.0-2.0); HEMATOCRIT 30.5 % (42.0-52.0); HEMOGLOBIN 9.3 G/DL (14.2-18.0); LYMPHOCYTES % (AUTO) 13.2 % (20.0-45.0); MEAN CORPUSCULAR VOLUME 99 FL (80-99); MONOCYTES % (AUTO) 3.7 % (1.0-10.0); PLATELET COUNT 320 K/UL (150-450); RED BLOOD COUNT 3.09 M/UL (4.70-6.10); RED CELL DISTRIBUTION WIDTH 17.7 % (11.6-14.8); WHITE BLOOD COUNT 8.8 K/UL (4.8-10.8)
[2020-08-05 05:34] LABS: ALANINE AMINOTRANSFERASE 19 U/L (12-78); ALBUMIN 1.6 G/DL (3.4-5.0); ALBUMIN/GLOBULIN RATIO 0.3 (1.0-2.7); ALKALINE PHOSPHATASE 184 U/L (46-116); ASPARTATE AMINO TRANSFERASE 23 U/L (15-37); BILIRUBIN,TOTAL 0.2 MG/DL (0.2-1.0); BLOOD UREA NITROGEN 23 mg/dL (7-18); CALCIUM 8.1 MG/DL (8.5-10.1); CARBON DIOXIDE 26 MMOL/L (21-32); CHLORIDE 106 MMOL/L (98-107); CREATININE 0.8 MG/DL (0.55-1.30); POTASSIUM 4.4 MMOL/L (3.5-5.1); SODIUM 139 MMOL/L (136-145)
[2020-08-05] MEDS: NovoLOG Insulin Flexpen SUBQ SCH ×4 (06:00→23:40)
--- NOTE | 2020-08-05 07:07 | NUR ---
RD ASSESSMENT & RECOMMENDATIONS SEE CARE ACTIVITY FOR COMPLETE ASSESSMENT DAILY ESTIMATED NEEDS: Needs based on DM, wound, critical care 59.5kg 22-28 kcals/kg 8662-6305 total kcals 1.25-2 g protein/kg 74-119 g total protein 25-30 mL/kg 8170-4122 total fluid mLs NUTRITION DIAGNOSIS: * Swallowing difficulty R/T dysphagia as evidenced by POT TENDER fahad, recs for NGT feeds, now s/p oral intubation (07/17), s/p code blue (07/23) and remains intubated, on pressor support, currently held, cont on NGT feeds. * Increased kcal and pro needs r/t wound healing as evidenced by sacral pressure injury stage 2. CURRENT TF: (goal of Glucerna 1.2 @ 60ml/hr x24 hrs) ENTERAL NUTRITION RECOMMENDATIONS: Glucerna 1.2 @ 55ml/hr x24 hrs to provide 1320ml, 1584kcal, 79g prot, 1063ml free water - LOWER goal rate to 55ml/hr x 24 hrs s/p intubation w/ decreased kcal needs - HOB over 30 degrees/ H2O flush per MD ADDITIONAL RECOMMENDATIONS: * Calibrated bedscale wt for accurate CBW * Monitor hemodynamic stability: s/p code blue (07/23), now off pressors * Monitor lytes, replete as needed * Wound care: add Sushil BID via PEG add Vit C 250mg QD * Monitor BGs closely w/ Decadron .
--- NOTE | 2020-08-05 07:20 | NUR ---
NURSE HAND-OFF REPORT: Latest Vital Signs: Temperature 98.6 , Pulse 60 , B/P 133 /63 , Respiratory Rate 13 , O2 SAT 91 , Mechanical Ventilator, O2 Flow Rate . Vital Sign Comment: EKG Rhythm: Sinus Rhythm Rhythm change?: N Notified?: Grecia Rivera MD Response: Latest Gonzalez Fall Score: 50 Fall Risk: High Risk Safety Measures: Call light Within Reach, Bed Alarm Zone 2, Side Rails Side Rails x2, Bed position Low and Locked. Fall Precautions: Door Sign Report given to .
--- NOTE | 2020-08-05 07:25 | NUR ---
NURSE NOTES: Received patient from FLORES Walker. Patient is asleep in bed. Orally intubated ventilator settings AC 12 TV 600 FiO2 30%, tolerating well. Bilateral soft restraints are on. Tube feeding running glucerna 1.2 at 60ml/hr, tolerating well. Wiley catheter draining well to gravity. sinus rhythm on the monitor. Will continue plan of care.
--- NOTE | 2020-08-05 08:02 | Infectious Diseases Prog Note ---
Assessment/Plan 79yo M with: Respiratory code 2ry to mucus plug 07/23 Septic Shock- -recurrent Fever, recurrent, low grade;SP Leukocytosis; recurrent; increased Acute hypoxic resp failure, on NRB mask> 4l NC; back on NRB, desaturation 07/09 > intubated 07/17 Pneumonia- >HAP Hx of COVID-19 PNA 05/20/2007/28 CXR: No significant interval change in the radiographic appearance the chest compared to one day prior. 07/25 Resp cx +MRSA, nl resp bobby UCx neg BCx NTD 07/24 COVID PCR neg --07/21 CXR: Bilateral infiltrates in a peribronchovascular distribution are unchanged. Left pleural effusion is unchanged. --07/19 CXR: Persistent bilateral patchy pulmonary opacities, most prominent in the left lower lung. --07/18 ucx neg sp cx MRSA (colonizer at this point) Bcx Neg --07/13 Bcx Neg 07/10 Sp cx MRSA (Vancomycin APOLONIA 1), ESBL E.coli 07/03 BCx NTD UA 15-20 WBC, UCx Neg 07/03 COVID rapid neg; 07/06 rapid COVID PCR + (from prior infection)- not new infection Flu A/B neg CXR: L pna Resp cx MRSA 07/30 Resp cx +ESBL E.coli & PsA 08/01 BCx NTD 08/02 CXR: Small bilateral pleural effusions with moderate vascular c ongestion. Airspace consolidation in the left lower lung field may represent atelectasis however, correlate for infiltrate. This is improving when compared to the prior study. 08/03 BCx NTD 08/03 CXR: Increasing right basilar opacity, likely infiltrate, may also reflect increasing pleural fluid H/o COVID pna Tested positive 05/20/2007/03 Rapid Ag neg 07/06 Rapid Ag positive (from prior disease?) 07/24 COVID PCR neg MELANIE on CKD, improving SN[facility] resident (ed sergio) Non-verbal VRE and MRSA colonized Plan: Cont meropenem #5 / 10 given high fever, ESBL E.coli and PsA pna C.dif if ongoing loose stools F/u repeat BCx 08/03 given ongoing fever (1 from periph, 1 from PICC), currently NTD Trend temp curve, WBC OK to d/c COVID airborne precautions, infection was now >2 mo ago, no longer infectious -07/31 SP linezolid #7 -07/27 SP meropenem #14 for ESBL pna -07/21 SP Micafungin #4 -07/17 SP IV Vancomycin #15 -07/13 SP Zosyn # -07/06 SP Cefepime # -07/04 SP Flagyl # Monitor CBC/CMP Monitor resp status Monitor temp curve and hemodynamics D/w RN Thank you for this consult. [facility] will continue to follow. Subjective Allergies: Coded Allergies: No Known Allergies (Unverified , 04/30/12) AF WBC 8.8 NAD on vent 30% PEEP 0 HDS Cont's to fail weaning from vent, family now amenable to trach Objective Last 24 Hour Vital Signs Date Time Temp Pulse Resp B/P (MAP) Pulse Ox O2 Delivery O2 Flow Rate FiO2 08/05/20 07:58 60 12 30 08/05/20 06:30 64 12 08/05/20 06:00 60 13 133/63 (86) 91 08/05/20 05:00 60 12 122/66 (84) 97 08/05/20 04:00 30 08/05/20 04:00 98.6 63 13 137/69 (91) 98 08/05/20 04:00 Mechanical Ventilator Mechanical Ventilator Mechanical Ventilator 08/05/20 04:00 64 08/05/20 03:00 59 16 142/65 (90) 99 08/05/20 02:55 75 15 30 08/05/20 01:00 65 12 121/60 (80) 99 08/05/20 00:00 30 08/05/20 00:00 Mechanical Ventilator Mechanical Ventilator Mechanical Ventilator 08/05/20 00:00 84 08/05/20 00:00 98.6 66 12 116/64 (81) 99 08/04/20 23:10 69 14 30 08/04/20 23:00 68 12 116/62 (80) 97 08/04/20 22:00 63 11 124/63 (83) 96 08/04/20 21:00 63 12 105/54 (71) 94 08/04/20 20:00 30 08/04/20 20:00 98.6 68 11 125/64 (84) 96 08/04/20 20:00 Mechanical Ventilator Mechanical Ventilator Mechanical Ventilator 08/04/20 20:00 68 08/04/20 19:00 67 13 50/ 97 08/04/20 18:45 66 12 30 08/04/20 18:00 64 13 134/68 (90) 95 08/04/20 17:00 69 13 119/59 (79) 96 08/04/20 16:00 Mechanical Ventilator Mechanical Ventilator Mechanical Ventilator 08/04/20 16:00 98.8 08/04/20 16:00 64 08/04/20 16:00 30 08/04/20 16:00 64 12 113/57 (75) 96 08/04/20 15:02 69 18 30 08/04/20 15:00 66 12 110/54 (72) 94 08/04/20 14:00 70 13 108/54 (72) 96 08/04/20 13:00 72 12 118/57 (77) 98 08/04/20 12:00 74 08/04/20 12:00 98.9 69 12 127/68 (87) 97 08/04/20 12:00 Mechanical Ventilator Mechanical Ventilator Mechanical Ventilator 08/04/20 12:00 30 08/04/20 11:01 75 18 30 08/04/20 11:00 73 12 129/64 (85) 98 08/04/20 10:00 65 12 132/63 (86) 98 08/04/20 09:30 100 08/04/20 09:00 70 12 101/54 (70) 96 Height (Feet): 5 Height (Inches): 4.00 Weight (Pounds): 130 Gen: NAD in bed HEENT: NCAT, ETT CV: RRR Pulm: CTAB on vent Abd: Soft, NTND Ext: No c/c/e Neuro: Awake, not interactive Lines: RUE PICC Microbiology Date/Time Source Procedure Growth Status 08/03/20 14:00 Blood Picc Line Blood Culture - Preliminary NO GROWTH AFTER 24 HOURS Resulted 08/03/20 14:00 Blood Blood Culture - Preliminary NO GROWTH AFTER 24 HOURS Resulted Laboratory Tests Test 08/04/20 23:49 08/05/20 03:55 08/05/20 05:29 POC Whole Blood Glucose Pending 132 MG/DL (74-106) H White Blood Count 8.8 K/UL (4.8-10.8) Red Blood Count 3.09 M/UL (4.70-6.10) L Hemoglobin 9.3 G/DL (14.2-18.0) L Hematocrit 30.5 % (42.0-52.0) L Mean Corpuscular Volume 99 FL (80-99) Mean Corpuscular Hemoglobin 30.2 PG (27.0-31.0) Mean Corpuscular Hemoglobin Concent 30.6 G/DL (32.0-36.0) L Red Cell Distribution Width 17.7 % (11.6-14.8) H Platelet Count 320 K/UL (150-450) Mean Platelet Volume 7.4 FL (6.5-10.1) Neutrophils (%) (Auto) 83.0 % (45.0-75.0) H Lymphocytes (%) (Auto) 13.2 % (20.0-45.0) L Monocytes (%) (Auto) 3.7 % (1.0-10.0) Eosinophils (%) (Auto) 0.0 % (0.0-3.0) Basophils (%) (Auto) 0.1 % (0.0-2.0) Sodium Level 139 MMOL/L (136-145) Potassium Level 4.4 MMOL/L (3.5-5.1) Chloride Level 106 MMOL/L (98-107) Carbon Dioxide Level 26 MMOL/L (21-32) Blood Urea Nitrogen 23 mg/dL (7-18) H Creatinine 0.8 MG/DL (0.55-1.30) Estimat Glomerular Filtration Rate > 60 mL/min (>60) Glucose Level 138 MG/DL (74-106) H Calcium Level 8.1 MG/DL (8.5-10.1) L Total Bilirubin 0.2 MG/DL (0.2-1.0) Aspartate Amino Transf (AST/SGOT) 23 U/L (15-37) Alanine Aminotransferase (ALT/SGPT) 19 U/L (12-78) Alkaline Phosphatase 184 U/L (46-116) H Pro-B-Type Natriuretic Peptide 2762 pg/mL (0-125) H Total Protein 6.7 G/DL (6.4-8.2) Albumin 1.6 G/DL (3.4-5.0) L Globulin 5.1 g/dL Albumin/Globulin Ratio 0.3 (1.0-2.7) L Current Medications Medications (Trade) Dose Ordered Sig/Ankush Route PRN Reason Start Time Stop Time Status Last Admin Dose Admin Acetaminophen (Tylenol) 650 mg Q4H PRN GT Temp >100.5 08/01/20 12:30 08/31/20 12:29 08/03/20 10:14 Albuterol/ Ipratropium (Albuterol/ Ipratropium) 3 ml Q4HRT PRN HHN sob 08/02/20 10:45 08/07/20 10:44 Chlorhexidine Gluconate (Darcy-Hex 2%) 1 applic DAILY@2000 TOPIC 07/17/20 20:00 10/15/20 19:59 08/04/20 19:50 Dexamethasone (Decadron) 6 mg Q24H ORAL 08/02/20 18:00 08/11/20 18:01 08/04/20 17:01 Dextrose (Dextrose 50%) 50 ml Q30M PRN IV Hypoglycemia 07/03/20 22:45 10/01/20 22:44 Heparin Sodium (Porcine) (Heparin 5000 units/ml) 5,000 units EVERY 12 HOURS SUBQ 07/03/20 21:00 08/17/20 20:59 08/04/20 20:31 Insulin Aspart (NovoLOG) EVERY 6 HOURS SUBQ 07/13/20 06:00 10/02/20 06:29 08/04/20 23:53 Meropenem 1 gm/ Sodium Chloride 55 ml @ 110 mls/hr Q8H IVPB 08/01/20 10:00 08/06/20 09:59 08/05/20 01:25 Midodrine (Pro-Amatine) 10 mg Q8H ORAL 07/22/20 17:00 10/20/20 16:59 08/05/20 01:25 Nitroglycerin (Ntg) 0.4 mg Q5M PRN SL Prn Chest Pain 08/01/20 10:15 08/31/20 10:09 Ondansetron HCl (Zofran) 4 mg Q6H PRN IVP Nausea & Vomiting 08/01/20 14:30 08/31/20 14:29 Pantoprazole (Protonix) 40 mg DAILY IV 07/18/20 09:00 08/17/20 08:59 08/04/20 08:55 Polyethylene Glycol (Miralax) 17 gm DAILYPRN PRN GT Constipation 08/01/20 10:15 08/31/20 10:14 Promethazine HCl/ Codeine (Phenergan with Codeine) 5 ml Q4H PRN GT For Cough 08/01/20 10:14 08/31/20 10:13 Sodium Chloride 1,000 ml @ 50 mls/hr Q20H IV 07/17/20 16:00 08/16/20 15:59 08/04/20 20:37 Lorie Ramirez M.D. Aug 05, 2020 08:02
[2020-08-05] MEDS: Pantoprazole Inj IV SCH (09:19)
[2020-08-05] MEDS: Heparin 5000 units/ml inj SUBQ SCH ×2 (09:20→22:07)
[2020-08-05 10:02] LABS: PHOSPHORUS 2.3 MG/DL (2.5-4.9)
--- NOTE | 2020-08-05 10:07 | NUR ---
RADIOLOGY DEPT. CHEST X-RAY DONE.-P.DYE
--- NOTE | 2020-08-05 10:41 | Pulmonolgy Critical Care Note ---
Critical Care - Asmt/Plan Problems: (1) Acute respiratory failure (2) Multifocal pneumonia (3) 2019 novel coronavirus disease (COVID-19) (4) Acute encephalopathy (5) Severe sepsis (6) Alzheimer's dementia (7) HTN (hypertension) (8) History of CVA (cerebrovascular accident) (9) BPH (benign prostatic hyperplasia) Respiratory: monitor respiratory rate, adjust FIO2, CXR Cardiac: continue to monitor HR/BP Renal: F/U I&O, keep IV fluid, check electrolytes Infectious Disease: check cultures, continue antibiotics Endocrine: monitor blood sugar Hematologic: monitor H/H Neurologic: PRN Ativan, PRN Morphine Affect: PRN ativan Prophylaxis: Protonix Time Spent (Minutes): 40 Notes Reviewed: fall intern, cardio, renal Discussed with: nurses, consultants, ed case managermanager product design - Objective Last 24 Hour Vital Signs Date Time Temp Pulse Resp B/P (MAP) Pulse Ox O2 Delivery O2 Flow Rate FiO2 08/05/20 10:00 58 12 132/71 (91) 98 08/05/20 09:00 98.2 54 11 138/65 (89) 98 08/05/20 08:00 30 08/05/20 08:00 57 12 136/80 (98) 98 08/05/20 08:00 Mechanical Ventilator Mechanical Ventilator Mechanical Ventilator 08/05/20 07:58 60 12 30 08/05/20 07:00 98.5 56 14 146/77 (100) 96 08/05/20 06:30 64 12 08/05/20 06:00 60 13 133/63 (86) 91 08/05/20 05:00 60 12 122/66 (84) 97 08/05/20 04:00 30 08/05/20 04:00 98.6 63 13 137/69 (91) 98 08/05/20 04:00 Mechanical Ventilator Mechanical Ventilator Mechanical Ventilator 08/05/20 04:00 64 08/05/20 03:00 59 16 142/65 (90) 99 08/05/20 02:55 75 15 30 08/05/20 01:00 65 12 121/60 (80) 99 08/05/20 00:00 30 08/05/20 00:00 Mechanical Ventilator Mechanical Ventilator Mechanical Ventilator 08/05/20 00:00 84 08/05/20 00:00 98.6 66 12 116/64 (81) 99 08/04/20 23:10 69 14 30 08/04/20 23:00 68 12 116/62 (80) 97 08/04/20 22:00 63 11 124/63 (83) 96 08/04/20 21:00 63 12 105/54 (71) 94 08/04/20 20:00 30 08/04/20 20:00 98.6 68 11 125/64 (84) 96 08/04/20 20:00 Mechanical Ventilator Mechanical Ventilator Mechanical Ventilator 08/04/20 20:00 68 08/04/20 19:00 67 13 50/ 97 08/04/20 18:45 66 12 30 08/04/20 18:00 64 13 134/68 (90) 95 08/04/20 17:00 69 13 119/59 (79) 96 08/04/20 16:00 Mechanical Ventilator Mechanical Ventilator Mechanical Ventilator 08/04/20 16:00 98.8 08/04/20 16:00 64 08/04/20 16:00 30 08/04/20 16:00 64 12 113/57 (75) 96 08/04/20 15:02 69 18 30 08/04/20 15:00 66 12 110/54 (72) 94 08/04/20 14:00 70 13 108/54 (72) 96 08/04/20 13:00 72 12 118/57 (77) 98 08/04/20 12:00 74 08/04/20 12:00 98.9 69 12 127/68 (87) 97 08/04/20 12:00 Mechanical Ventilator Mechanical Ventilator Mechanical Ventilator 08/04/20 12:00 30 08/04/20 11:01 75 18 30 08/04/20 11:00 73 12 129/64 (85) 98 Status: awake Condition: critical HEENT: atraumatic Lungs: rales, rhonchi Heart: HR/BP stable Abdomen: soft, active bowel sounds Extremities: no C/C/E Objective: still large secretions, failed weaning Micro: Microbiology Date/Time Source Procedure Growth Status 08/03/20 14:00 Blood Picc Line Blood Culture - Preliminary NO GROWTH AFTER 24 HOURS Resulted 08/03/20 14:00 Blood Blood Culture - Preliminary NO GROWTH AFTER 24 HOURS Resulted Accucheck: 133 Critical Care - Subjective ROS Limited/Unobtainable: Yes Condition: critical EKG Rhythm: Sinus Rhythm FI02: 30 Vent Support Breath Rate: 12 Vent Support Mode: AC Vent Tidal Volume: 600 Sputum Amount: Moderate PEEP: 0.0 PIP: 36 Tube Feeding Amount: 0 I&O: Intake and Output 08/04/20 08/05/20 19:00 07:00 Intake Total 1280 ml 1226 ml Output Total 1040 ml 820 ml Balance 240 ml 406 ml Free Water 30 ml 60 ml IV Total 710 ml 626 ml Tube Feeding 540 ml 540 ml Output Urine Total 1040 ml 820 ml # Bowel Movements 4 3 CXR: Bilateral infiltrates and bilateral left greater than right pleural effusions are unchanged. Satisfactory stable position of endotracheal tube. ET-Tube: 7.5 ET Position: 25 Labs: Laboratory Tests Test 08/04/20 23:49 08/05/20 03:55 08/05/20 05:29 POC Whole Blood Glucose Pending 132 MG/DL (74-106) H White Blood Count 8.8 K/UL (4.8-10.8) Red Blood Count 3.09 M/UL (4.70-6.10) L Hemoglobin 9.3 G/DL (14.2-18.0) L Hematocrit 30.5 % (42.0-52.0) L Mean Corpuscular Volume 99 FL (80-99) Mean Corpuscular Hemoglobin 30.2 PG (27.0-31.0) Mean Corpuscular Hemoglobin Concent 30.6 G/DL (32.0-36.0) L Red Cell Distribution Width 17.7 % (11.6-14.8) H Platelet Count 320 K/UL (150-450) Mean Platelet Volume 7.4 FL (6.5-10.1) Neutrophils (%) (Auto) 83.0 % (45.0-75.0) H Lymphocytes (%) (Auto) 13.2 % (20.0-45.0) L Monocytes (%) (Auto) 3.7 % (1.0-10.0) Eosinophils (%) (Auto) 0.0 % (0.0-3.0) Basophils (%) (Auto) 0.1 % (0.0-2.0) Sodium Level 139 MMOL/L (136-145) Potassium Level 4.4 MMOL/L (3.5-5.1) Chloride Level 106 MMOL/L (98-107) Carbon Dioxide Level 26 MMOL/L (21-32) Blood Urea Nitrogen 23 mg/dL (7-18) H Creatinine 0.8 MG/DL (0.55-1.30) Estimat Glomerular Filtration Rate > 60 mL/min (>60) Glucose Level 138 MG/DL (74-106) H Calcium Level 8.1 MG/DL (8.5-10.1) L Phosphorus Level 2.3 MG/DL (2.5-4.9) L Magnesium Level 2.5 MG/DL (1.8-2.4) H Total Bilirubin 0.2 MG/DL (0.2-1.0) Aspartate Amino Transf (AST/SGOT) 23 U/L (15-37) Alanine Aminotransferase (ALT/SGPT) 19 U/L (12-78) Alkaline Phosphatase 184 U/L (46-116) H Pro-B-Type Natriuretic Peptide 2762 pg/mL (0-125) H Total Protein 6.7 G/DL (6.4-8.2) Albumin 1.6 G/DL (3.4-5.0) L Globulin 5.1 g/dL Albumin/Globulin Ratio 0.3 (1.0-2.7) L Kya Carreno MD Aug 05, 2020 10:41
--- NOTE | 2020-08-05 11:19 | Diagnostic Imaging Report ---
Indication: Shortness of breath Technique: One view of the chest Comparison: 08/04/2020 Findings: Stable satisfactory position of endotracheal tube, orogastric tube, right arm PICC. Bilateral left greater than right pleural effusions and bilateral parenchymal opacities persist, unchanged. Normal heart size. Right shoulder prosthesis again demonstrated. Impression: Unchanged, over one day, findings as above.
--- NOTE | 2020-08-05 11:31 | NUR ---
NURSE NOTES: Noted patient is bradycardic heart rate 51. Dr. Matt came at bedside and acknowledged. Per Dr. Matt, discontinue midodrine.Will continue to monitor
--- NOTE | 2020-08-05 12:23 | Internal Med Progress Note ---
Subjective Date of Service: Aug 05, 2020 Physician Name Dano Groves Attending Physician Ahsan Hodges MD Current Medications Medications (Trade) Dose Ordered Sig/Ankush Route PRN Reason Start Time Stop Time Status Last Admin Dose Admin Acetaminophen (Tylenol) 650 mg Q4H PRN GT Temp >100.5 08/01/20 12:30 08/31/20 12:29 08/03/20 10:14 Albuterol/ Ipratropium (Albuterol/ Ipratropium) 3 ml Q4HRT PRN HHN sob 08/02/20 10:45 08/07/20 10:44 Chlorhexidine Gluconate (Darcy-Hex 2%) 1 applic DAILY@2000 TOPIC 07/17/20 20:00 10/15/20 19:59 08/04/20 19:50 Dexamethasone (Decadron) 6 mg Q24H ORAL 08/02/20 18:00 08/11/20 18:01 08/04/20 17:01 Dextrose (Dextrose 50%) 50 ml Q30M PRN IV Hypoglycemia 07/03/20 22:45 10/01/20 22:44 Heparin Sodium (Porcine) (Heparin 5000 units/ml) 5,000 units EVERY 12 HOURS SUBQ 07/03/20 21:00 08/17/20 20:59 08/05/20 09:20 Insulin Aspart (NovoLOG) EVERY 6 HOURS SUBQ 07/13/20 06:00 10/02/20 06:29 08/04/20 23:53 Meropenem 1 gm/ Sodium Chloride 55 ml @ 110 mls/hr Q8H IVPB 08/01/20 10:00 08/10/20 09:59 08/05/20 11:10 Nitroglycerin (Ntg) 0.4 mg Q5M PRN SL Prn Chest Pain 08/01/20 10:15 08/31/20 10:09 Ondansetron HCl (Zofran) 4 mg Q6H PRN IVP Nausea & Vomiting 08/01/20 14:30 08/31/20 14:29 Pantoprazole (Protonix) 40 mg DAILY IV 07/18/20 09:00 08/17/20 08:59 08/05/20 09:19 Polyethylene Glycol (Miralax) 17 gm DAILYPRN PRN GT Constipation 08/01/20 10:15 08/31/20 10:14 Promethazine HCl/ Codeine (Phenergan with Codeine) 5 ml Q4H PRN GT For Cough 08/01/20 10:14 08/31/20 10:13 Sodium Chloride 1,000 ml @ 50 mls/hr Q20H IV 07/17/20 16:00 08/16/20 15:59 08/04/20 20:37 Allergies: Coded Allergies: No Known Allergies (Unverified , 04/30/12) ROS Limited/Unobtainable: Yes Subjective 79 YO M admitted with shortness of breath. Now pneumonia; previously COVID positive. Cover for Int med-Dr Hodges. ICU. Intubated and sedated. Objective Last Vital Signs Date Time Temp Pulse Resp B/P (MAP) Pulse Ox O2 Delivery O2 Flow Rate FiO2 08/05/20 11:46 30 08/05/20 11:24 53 15 08/05/20 11:00 132/68 (89) 100 08/05/20 09:00 98.2 08/05/20 08:00 Mechanical Ventilator Mechanical Ventilator Mechanical Ventilator Laboratory Tests Test 08/04/20 23:49 08/05/20 03:55 08/05/20 05:29 08/05/20 11:42 POC Whole Blood Glucose Pending 132 MG/DL (74-106) H 125 MG/DL (74-106) H White Blood Count 8.8 K/UL (4.8-10.8) Red Blood Count 3.09 M/UL (4.70-6.10) L Hemoglobin 9.3 G/DL (14.2-18.0) L Hematocrit 30.5 % (42.0-52.0) L Mean Corpuscular Volume 99 FL (80-99) Mean Corpuscular Hemoglobin 30.2 PG (27.0-31.0) Mean Corpuscular Hemoglobin Concent 30.6 G/DL (32.0-36.0) L Red Cell Distribution Width 17.7 % (11.6-14.8) H Platelet Count 320 K/UL (150-450) Mean Platelet Volume 7.4 FL (6.5-10.1) Neutrophils (%) (Auto) 83.0 % (45.0-75.0) H Lymphocytes (%) (Auto) 13.2 % (20.0-45.0) L Monocytes (%) (Auto) 3.7 % (1.0-10.0) Eosinophils (%) (Auto) 0.0 % (0.0-3.0) Basophils (%) (Auto) 0.1 % (0.0-2.0) Sodium Level 139 MMOL/L (136-145) Potassium Level 4.4 MMOL/L (3.5-5.1) Chloride Level 106 MMOL/L (98-107) Carbon Dioxide Level 26 MMOL/L (21-32) Blood Urea Nitrogen 23 mg/dL (7-18) H Creatinine 0.8 MG/DL (0.55-1.30) Estimat Glomerular Filtration Rate > 60 mL/min (>60) Glucose Level 138 MG/DL (74-106) H Calcium Level 8.1 MG/DL (8.5-10.1) L Phosphorus Level 2.3 MG/DL (2.5-4.9) L Magnesium Level 2.5 MG/DL (1.8-2.4) H Total Bilirubin 0.2 MG/DL (0.2-1.0) Aspartate Amino Transf (AST/SGOT) 23 U/L (15-37) Alanine Aminotransferase (ALT/SGPT) 19 U/L (12-78) Alkaline Phosphatase 184 U/L (46-116) H Pro-B-Type Natriuretic Peptide 2762 pg/mL (0-125) H Total Protein 6.7 G/DL (6.4-8.2) Albumin 1.6 G/DL (3.4-5.0) L Globulin 5.1 g/dL Albumin/Globulin Ratio 0.3 (1.0-2.7) L Microbiology Date/Time Source Procedure Growth Status 08/03/20 14:00 Blood Picc Line Blood Culture - Preliminary NO GROWTH AFTER 24 HOURS Resulted 08/03/20 14:00 Blood Blood Culture - Preliminary NO GROWTH AFTER 24 HOURS Resulted Intake and Output 08/04/20 08/05/20 19:00 07:00 Intake Total 1280 ml 1276 ml Output Total 1040 ml 820 ml Balance 240 ml 456 ml Free Water 30 ml 60 ml IV Total 710 ml 676 ml Tube Feeding 540 ml 540 ml Output Urine Total 1040 ml 820 ml # Bowel Movements 4 3 Objective PHYSICAL EXAMINATION: GENERAL: The patient awake with deep stimuli, open his eyes, however, cannot follow commands. The patient is on a Ventimask at this time, chronically ill-appearing. HEAD AND NECK: Pupils are equal and reactive to light. Anicteric. NECK: Supple. No JVD. LUNGS: Mech vent; wheezing, rhonchi, and decreased air in bases. HEART: S1, S2. Regular rhythm. Distant heart sounds. No murmur or gallop. ABDOMEN: Soft, nondistended, nontender. Positive bowel sounds. EXTREMITIES: No cyanosis, clubbing, or edema. NEUROLOGIC: Very limited secondary to the patient's status, cannot follow commands. Opens his eyes with deep stimuli and moving extremities spontaneously. Assessment/Plan Assessment/Plan ASSESSMENT: 1. Acute hypoxemic respiratory failure, most likely secondary to pneumonia and sepsis. 2. Sepsis secondary to urinary tract infection and pneumonia. 3. pneumonia=MRSA; ESBL E. coli 4. Acute kidney injury on chronic renal insufficiency. 5. Dehydration. 6. History of chronic congestive heart failure. 7. Diabetes type 2. 8. Dyslipidemia. 9. Hypertension. 10. Alzheimer's disease. 11. COVID 19 previous positive PLAN: 1. ICU 2. Dr. Carreno,=Pulmonary Critical Care; follow mech vent recs 3. Dr. Cho = Inf Dis. 4. IV= D5W due to the hypernatremia and dehydration. 5. antibiotics = meropenem; S/P micafungin and zyvox 6. Code status is full code. 7. DVT prophylaxis is heparin subcutaneous. Dano Groves MD Aug 05, 2020 12:23
--- NOTE | 2020-08-05 13:39 | Nephrology Progress Note ---
Assessment/Plan Problem List: (1) Dehydration (2) MELANIE (acute kidney injury) (3) Renal failure (ARF), acute on chronic (4) Hypoxia (5) Acute encephalopathy (6) Electrolyte imbalance Assessment 79-year-old male is admitted with acute hypoxic respiratory failure most likely secondary to pneumonia and sepsis, UTI. Acute on chronic renal failure Dehydration Electrolyte imbalances, hypernatremia Hypoalbuminemia Diabetes type 2 History of congestive heart failure Hypertension Hyperlipemia Alzheimer's Previous COVID-19 infection in May 2020 Plan August 05: Labs reviewed. Discussed with RN. Abnormal electrolyte addressed. Remains intubated on ventilator. Continue per consultants. August 04: Labs reviewed. Discussed with RN. Stable from renal standpoint of view. Main issue is weaning from ventilator that keeps failing. Continue per consultants. August 03: Labs reviewed. Discussed with RN. Stable from renal standpoint of view. Continue per consultants. August 02: Patient seen and discussed with RN. Labs reviewed. Remains intubated. Trial of weaning this being attempted. Continue per consultants. August 01: Remains intubated. Labs reviewed. Renal parameters stable. Continue per consultants. July 31: Remains on mechanical ventilation. Labs reviewed. Abnormal el ectrolytes addressed. Stable from renal standpoint of view. July 30: Remains intubated. Remains full code. Labs reviewed. Low phosphorus replaced. Continue to monitor renal parameters. Continue per consultants. July 29: Failed weaning. Remains intubated. Remains full closed. Labs reviewed. Stable from renal standpoint view. July 28: Remains in ICU. Remains full code. Labs are reviewed. Phosphorus supplement given. Continue per consultants. July 27: Remains in ICU. Full code. Labs reviewed. Remains intubated. Stable renal parameters. July 26: In ICU. Full code. Discussed with RN. Stable renal parameters. July 25: Seen in ICU. Discussed with FLORES Holliday. Flomax discontinued. Labs reviewed. Stable from renal standpoint of view. July 24: Seen in ICU. Discussed with FLORES Holliday. Remains on pressor. Electrolyte abnormalities noted and addressed. Continue per consultants. Patient remains full code. July 23: Seen in ICU. Discussed with FLORES Barrera. Blood pressure remains a little requiring pressors. Labs reviewed. Stable renal parameters. Continue per consultants. July 22: Remains intubated. Full code. Blood pressure borderline low. Will increase midodrine dose. Discussed with RN. Continue to monitor renal parameters and electrolytes. July 21: Intubated. Full code. Labs reviewed. Stable from renal standpoint of view. Continue per consultants. July 20: Remains intubated. Full code. Labs reviewed. Electrolytes within normal limit. Continue per consultants. July 19: In ICU. Remains intubated on ventilator. Remains full code. Low potassium addressed. Blood pressure fluctuating. Continue per consultants. July 18: Patient in ICU. Intubated on ventilator. On 6 mics of Levophed. Will give 100 cc albumin 25%. K-Phos IV ordered. Continue per consultants. Continue monitor renal parameters and electrolytes. July 17: Status unchanged. Transfer to [facility] for seizure. Stable from renal standpoint to view. Continue per consultants. July 16: Status quo. Labs reviewed. Renal parameters stable. Continue per consultants. July 15: On nonrebreather mask. Labs reviewed. Renal parameters stable.Continue per rehab spec. Clinically unchanged. July 14: On nonrebreather mask. Inflammatory markers gradually declining. Renal parameters stable. Continue per pulmonary. July 13: Remains on nonrebreather mask. Inflammatory markers remain elevated. Renal parameters somewhat stable. Continue per pulmonary and ID. Remains full code. July 12: Patient on nonrebreather mask. Labs noted. Serum creatinine down to 1.3. Continue per consultants. July 11: Patient on nonrebreather mask. Transfer to telemetry when seen this morning. Labs noted. Continue per consultants. Serum creatinine erin to 1.7. Continue to monitor renal parameters. Continue to monitor vancomycin level July 10: Patient is not doing well clinically. Mild respiratory distress. ABG noted. Somewhat hypoxic. CBC and chemistry panel ordered. Discussed with FLORES Cho. Will defer to pulmonary management to specialist. Continue per ID. Renal parameters remained stable as of July 09. July 09: Labs reviewed. Renal parameters stable. Continue per consultants. July 08: Labs reviewed. Potassium via NG tube ordered. IV fluids stopped. Continue per consultants. July 07: Labs reviewed. Low potassium and low phosphorus replaced. Continue per consultants. Remains stable from renal standpoint of view. July 06: Patient remains n.p.o. IV fluid down to 50 cc an hour. Potassium supplement intravenously ordered. Continue per consultants. Previously: Patient is n.p.o., will continue on IV fluid of D5W 75 cc an hour We will monitor electrolytes and renal parameters Avoid nephrotoxic's Start p.o. when he clears by speech therapist, meanwhile aspiration precautions Keep the blood pressure and blood sugar in check Per orders Subjective ROS Limited/Unobtainable: Yes Objective Objective Last 24 Hour Vital Signs Date Time Temp Pulse Resp B/P (MAP) Pulse Ox O2 Delivery O2 Flow Rate FiO2 08/05/20 13:00 56 13 120/60 (80) 100 08/05/20 12:00 Mechanical Ventilator Mechanical Ventilator Mechanical Ventilator 08/05/20 12:00 53 08/05/20 12:00 98.3 54 13 138/67 (90) 98 08/05/20 11:46 30 08/05/20 11:24 53 15 30 08/05/20 11:00 55 10 132/68 (89) 100 08/05/20 10:00 58 12 132/71 (91) 98 08/05/20 09:00 98.2 54 11 138/65 (89) 98 08/05/20 08:00 30 08/05/20 08:00 62 08/05/20 08:00 57 12 136/80 (98) 98 08/05/20 08:00 Mechanical Ventilator Mechanical Ventilator Mechanical Ventilator 08/05/20 07:58 60 12 30 08/05/20 07:00 98.5 56 14 146/77 (100) 96 08/05/20 06:30 64 12 08/05/20 06:00 60 13 133/63 (86) 91 08/05/20 05:00 60 12 122/66 (84) 97 08/05/20 04:00 30 08/05/20 04:00 98.6 63 13 137/69 (91) 98 08/05/20 04:00 Mechanical Ventilator Mechanical Ventilator Mechanical Ventilator 08/05/20 04:00 64 08/05/20 03:00 59 16 142/65 (90) 99 08/05/20 02:55 75 15 30 08/05/20 01:00 65 12 121/60 (80) 99 08/05/20 00:00 30 08/05/20 00:00 Mechanical Ventilator Mechanical Ventilator Mechanical Ventilator 08/05/20 00:00 84 08/05/20 00:00 98.6 66 12 116/64 (81) 99 08/04/20 23:10 69 14 30 08/04/20 23:00 68 12 116/62 (80) 97 08/04/20 22:00 63 11 124/63 (83) 96 08/04/20 21:00 63 12 105/54 (71) 94 08/04/20 20:00 30 08/04/20 20:00 98.6 68 11 125/64 (84) 96 08/04/20 20:00 Mechanical Ventilator Mechanical Ventilator Mechanical Ventilator 08/04/20 20:00 68 08/04/20 19:00 67 13 50/ 97 08/04/20 18:45 66 12 30 08/04/20 18:00 64 13 134/68 (90) 95 08/04/20 17:00 69 13 119/59 (79) 96 08/04/20 16:00 Mechanical Ventilator Mechanical Ventilator Mechanical Ventilator 08/04/20 16:00 98.8 08/04/20 16:00 64 08/04/20 16:00 30 08/04/20 16:00 64 12 113/57 (75) 96 08/04/20 15:02 69 18 30 08/04/20 15:00 66 12 110/54 (72) 94 08/04/20 14:00 70 13 108/54 (72) 96 Intake and Output 08/04/20 08/05/20 19:00 07:00 Intake Total 1280 ml 1276 ml Output Total 1040 ml 820 ml Balance 240 ml 456 ml Free Water 30 ml 60 ml IV Total 710 ml 676 ml Tube Feeding 540 ml 540 ml Output Urine Total 1040 ml 820 ml # Bowel Movements 4 3 Current Medications Medications (Trade) Dose Ordered Sig/Ankush Route PRN Reason Start Time Stop Time Status Last Admin Dose Admin Acetaminophen (Tylenol) 650 mg Q4H PRN GT Temp >100.5 08/01/20 12:30 08/31/20 12:29 08/03/20 10:14 Albuterol/ Ipratropium (Albuterol/ Ipratropium) 3 ml Q4HRT PRN HHN sob 08/02/20 10:45 08/07/20 10:44 Chlorhexidine Gluconate (Darcy-Hex 2%) 1 applic DAILY@2000 TOPIC 07/17/20 20:00 10/15/20 19:59 08/04/20 19:50 Dexamethasone (Decadron) 6 mg Q24H ORAL 08/02/20 18:00 08/11/20 18:01 08/04/20 17:01 Dextrose (Dextrose 50%) 50 ml Q30M PRN IV Hypoglycemia 07/03/20 22:45 10/01/20 22:44 Heparin Sodium (Porcine) (Heparin 5000 units/ml) 5,000 units EVERY 12 HOURS SUBQ 07/03/20 21:00 08/17/20 20:59 08/05/20 09:20 Insulin Aspart (NovoLOG) EVERY 6 HOURS SUBQ 07/13/20 06:00 10/02/20 06:29 08/04/20 23:53 Meropenem 1 gm/ Sodium Chloride 55 ml @ 110 mls/hr Q8H IVPB 08/01/20 10:00 08/10/20 09:59 08/05/20 11:10 Nitroglycerin (Ntg) 0.4 mg Q5M PRN SL Prn Chest Pain 08/01/20 10:15 08/31/20 10:09 Ondansetron HCl (Zofran) 4 mg Q6H PRN IVP Nausea & Vomiting 08/01/20 14:30 08/31/20 14:29 Pantoprazole (Protonix) 40 mg DAILY IV 07/18/20 09:00 08/17/20 08:59 08/05/20 09:19 Polyethylene Glycol (Miralax) 17 gm DAILYPRN PRN GT Constipation 08/01/20 10:15 08/31/20 10:14 Promethazine HCl/ Codeine (Phenergan with Codeine) 5 ml Q4H PRN GT For Cough 08/01/20 10:14 08/31/20 10:13 Sodium Chloride 1,000 ml @ 50 mls/hr Q20H IV 07/17/20 16:00 08/16/20 15:59 08/04/20 20:37 Laboratory Tests 08/04/20 23:49: POC Whole Blood Glucose [Pending] 08/05/20 03:55: White Blood Count 8.8, Red Blood Count 3.09L, Hemoglobin 9.3L, Hematocrit 30.5L, Mean Corpuscular Volume 99, Mean Corpuscular Hemoglobin 30.2, Mean Corpuscular Hemoglobin Concent 30.6L, Red Cell Distribution Width 17.7H, Platelet Count 320, Mean Platelet Volume 7.4, Neutrophils (%) (Auto) 83.0H, Lymphocytes (%) (Auto) 13.2L, Monocytes (%) (Auto) 3.7, Eosinophils (%) (Auto) 0.0, Basophils (%) (Auto) 0.1, Sodium Level 139, Potassium Level 4.4, Chloride Level 106, Carbon Dioxide Level 26, Blood Urea Nitrogen 23H, Creatinine 0.8, Estimat Glomerular Filtration Rate > 60, Glucose Level 138H, Calcium Level 8.1L, Phosphorus Level 2.3L, Magnesium Level 2.5H, Total Bilirubin 0.2, Aspartate Amino Transf (AST/SGOT) 23, Alanine Aminotransferase (ALT/SGPT) 19, Alkaline Phosphatase 184H , Pro-B-Type Natriuretic Peptide 2762H, Total Protein 6.7, Albumin 1.6L, Globulin 5.1, Albumin/Globulin Ratio 0.3L 08/05/20 05:29: POC Whole Blood Glucose 132H 08/05/20 11:42: POC Whole Blood Glucose 125H Height (Feet): 5 Height (Inches): 4.00 Weight (Pounds): 130 General Appearance: no apparent distress EENT: other - Intubated on ventilator Cardiovascular: bradycardia Respiratory/Chest: decreased breath sounds Abdomen: distended Tino Connors MD Aug 05, 2020 13:39
--- NOTE | 2020-08-05 13:40 | Cardiac Electrophysiology PN ---
Assessment/Plan Assessment/Plan 1. Accelerated junctional rhythm. Ruled out for PA Echo showed ejection fraction of 55%. 2. Long run of 31 beats of Nonsustained VT on 07/14/2020. Cardiac cath after stabilization. 3. Aníbal 30, Asystole while on the Vent due to resp failure/ likely mucus plug . S/P Code 4. Respiratory failure, on antibiotic and intubated on the vent Failed weaning. Family refused tracheostomy 5. Septic shock. Off Levophed and on Midodrine 10 tid 6. History of previous COVID infection in May 2020 and active Covid in isolation Now negative again and off isolation. 7. Dementia. DW RN and Dr hernandez Subjective Subjective In ICU on the Venton Fio2 30%, PEEP 5. Off isolation Had 31 beats of VT on 07/14/20 at 16:46 and 5 beats 07/19/20 Coded on 07/23/20 as sat dropped to 20% and got aníbal 30s and PEA and pulseless Off Levophed and on Midodrine 10 tid Covid test was negative. But still febrile. Failed weaning again. Family still refusing tracheostomy. Objective Last 24 Hour Vital Signs Date Time Temp Pulse Resp B/P (MAP) Pulse Ox O2 Delivery O2 Flow Rate FiO2 08/05/20 13:00 56 13 120/60 (80) 100 08/05/20 12:00 Mechanical Ventilator Mechanical Ventilator Mechanical Ventilator 08/05/20 12:00 53 08/05/20 12:00 98.3 54 13 138/67 (90) 98 08/05/20 11:46 30 08/05/20 11:24 53 15 30 08/05/20 11:00 55 10 132/68 (89) 100 08/05/20 10:00 58 12 132/71 (91) 98 08/05/20 09:00 98.2 54 11 138/65 (89) 98 08/05/20 08:00 30 08/05/20 08:00 62 08/05/20 08:00 57 12 136/80 (98) 98 08/05/20 08:00 Mechanical Ventilator Mechanical Ventilator Mechanical Ventilator 08/05/20 07:58 60 12 30 08/05/20 07:00 98.5 56 14 146/77 (100) 96 08/05/20 06:30 64 12 08/05/20 06:00 60 13 133/63 (86) 91 08/05/20 05:00 60 12 122/66 (84) 97 08/05/20 04:00 30 08/05/20 04:00 98.6 63 13 137/69 (91) 98 08/05/20 04:00 Mechanical Ventilator Mechanical Ventilator Mechanical Ventilator 08/05/20 04:00 64 08/05/20 03:00 59 16 142/65 (90) 99 08/05/20 02:55 75 15 30 08/05/20 01:00 65 12 121/60 (80) 99 08/05/20 00:00 30 08/05/20 00:00 Mechanical Ventilator Mechanical Ventilator Mechanical Ventilator 08/05/20 00:00 84 08/05/20 00:00 98.6 66 12 116/64 (81) 99 08/04/20 23:10 69 14 30 08/04/20 23:00 68 12 116/62 (80) 97 08/04/20 22:00 63 11 124/63 (83) 96 08/04/20 21:00 63 12 105/54 (71) 94 08/04/20 20:00 30 08/04/20 20:00 98.6 68 11 125/64 (84) 96 08/04/20 20:00 Mechanical Ventilator Mechanical Ventilator Mechanical Ventilator 08/04/20 20:00 68 08/04/20 19:00 67 13 50/ 97 08/04/20 18:45 66 12 30 08/04/20 18:00 64 13 134/68 (90) 95 08/04/20 17:00 69 13 119/59 (79) 96 08/04/20 16:00 Mechanical Ventilator Mechanical Ventilator Mechanical Ventilator 08/04/20 16:00 98.8 08/04/20 16:00 64 08/04/20 16:00 30 08/04/20 16:00 64 12 113/57 (75) 96 08/04/20 15:02 69 18 30 08/04/20 15:00 66 12 110/54 (72) 94 08/04/20 14:00 70 13 108/54 (72) 96 Intake and Output 08/04/20 08/05/20 19:00 07:00 Intake Total 1280 ml 1276 ml Output Total 1040 ml 820 ml Balance 240 ml 456 ml Free Water 30 ml 60 ml IV Total 710 ml 676 ml Tube Feeding 540 ml 540 ml Output Urine Total 1040 ml 820 ml # Bowel Movements 4 3 Laboratory Tests Test 08/04/20 23:49 08/05/20 03:55 08/05/20 05:29 08/05/20 11:42 POC Whole Blood Glucose Pending 132 MG/DL (74-106) H 125 MG/DL (74-106) H White Blood Count 8.8 K/UL (4.8-10.8) Red Blood Count 3.09 M/UL (4.70-6.10) L Hemoglobin 9.3 G/DL (14.2-18.0) L Hematocrit 30.5 % (42.0-52.0) L Mean Corpuscular Volume 99 FL (80-99) Mean Corpuscular Hemoglobin 30.2 PG (27.0-31.0) Mean Corpuscular Hemoglobin Concent 30.6 G/DL (32.0-36.0) L Red Cell Distribution Width 17.7 % (11.6-14.8) H Platelet Count 320 K/UL (150-450) Mean Platelet Volume 7.4 FL (6.5-10.1) Neutrophils (%) (Auto) 83.0 % (45.0-75.0) H Lymphocytes (%) (Auto) 13.2 % (20.0-45.0) L Monocytes (%) (Auto) 3.7 % (1.0-10.0) Eosinophils (%) (Auto) 0.0 % (0.0-3.0) Basophils (%) (Auto) 0.1 % (0.0-2.0) Sodium Level 139 MMOL/L (136-145) Potassium Level 4.4 MMOL/L (3.5-5.1) Chloride Level 106 MMOL/L (98-107) Carbon Dioxide Level 26 MMOL/L (21-32) Blood Urea Nitrogen 23 mg/dL (7-18) H Creatinine 0.8 MG/DL (0.55-1.30) Estimat Glomerular Filtration Rate > 60 mL/min (>60) Glucose Level 138 MG/DL (74-106) H Calcium Level 8.1 MG/DL (8.5-10.1) L Phosphorus Level 2.3 MG/DL (2.5-4.9) L Magnesium Level 2.5 MG/DL (1.8-2.4) H Total Bilirubin 0.2 MG/DL (0.2-1.0) Aspartate Amino Transf (AST/SGOT) 23 U/L (15-37) Alanine Aminotransferase (ALT/SGPT) 19 U/L (12-78) Alkaline Phosphatase 184 U/L (46-116) H Pro-B-Type Natriuretic Peptide 2762 pg/mL (0-125) H Total Protein 6.7 G/DL (6.4-8.2) Albumin 1.6 G/DL (3.4-5.0) L Globulin 5.1 g/dL Albumin/Globulin Ratio 0.3 (1.0-2.7) L Microbiology Date/Time Source Procedure Growth Status 08/03/20 14:00 Blood Picc Line Blood Culture - Preliminary NO GROWTH AFTER 24 HOURS Resulted 08/03/20 14:00 Blood Blood Culture - Preliminary NO GROWTH AFTER 24 HOURS Resulted Objective HEAD AND NECK: No JVD. Orally intubated LUNGS: Coarse rhonchi. CARDIOVASCULAR: Irregular S1 and S2 with no gallop. ABDOMEN: Soft. EXTREMITIES: No pitting edema. Klever Matt MD Aug 05, 2020 13:40
[2020-08-05] MEDS ORDERED: Sodium Phosphate 15 MM in NS 275 ML IVPB ONE (15:00)
--- NOTE | 2020-08-05 16:43 | NUR ---
CASE MANAGEMENT:REVIEW SI;PNA. RESPIRATORY FAILURE. SEPTIC SHOCK. BILATERAL PLEURAL EFFUSION. 98.3 51 13 148/63 98% ETT/MECH VENT AC 12 TV 600 PEEP 0 FIO2 30% BUN 23 BG 138 MAG 2.5 BNP 2762 ALB 1.6 IS;NA PHOSPHATE IV ONCE DECADRON NG Q24 PROTONIX IV QD IVF NS @ 50 ML/HR MEROPENEM IV Q8 HEPARIN SQ Q12 ICU STATUS DCP;FROM [facility]
--- NOTE | 2020-08-05 19:15 | NUR ---
NURSE NOTES: Received bedside report from Alondra Rojas RN. Pt is intubated and saturating 100% In no apparent distress. Respirations even and unlabored. Opens eyes spontaneously but doesn't tract. Restraints in place. Pt's HR at 68 currently. SR on the csr technician. Tolerating GT feeding well w/o residual noted. Wiley draining well of norbert urine noted. Pt w/PICC which is intact and patent. HOB at 30 degrees. Bed alarm engaged. Bed locked and in lowest position. Safety precautions in place. Will continue POC
--- NOTE | 2020-08-05 19:36 | NUR ---
HAND-OFF: Report given to .HARLEY TANNRE.
--- NOTE | 2020-08-05 22:00 | NUR ---
NURSE NOTES: Large dark brown pasty BM. No distress noted. Respirations even and unlabored. VSS Afebrile.
[2020-08-05] MEDS: Dyna-Hex 2% Top Sol 2oz TOPIC SCH (22:05)
[2020-08-06] VITALS (22 sets, daily range): BP systolic 105–150; BP diastolic 55–81
--- NOTE | 2020-08-06 02:00 | NUR ---
NURSE NOTES: No significant changes. No distress noted.
[2020-08-06] MEDS: Meropenem 1 GM in NS 55 ML IVPB SCH ×3 (03:09→19:26)
[2020-08-06] MEDS: NovoLOG Insulin Flexpen SUBQ SCH ×3 (06:00→18:00)
--- NOTE | 2020-08-06 06:00 | NUR ---
NURSE NOTES: Sleeping. Respirations even and unlabored. In no apparent distress. Opens eyes spontaneously. Restraints in place. remain A-fib on the panel monitor. Pt NPO. Wiley draining well of norbert urine noted. Rt femoral TLC intact and patent Heparin drip infusing at 19.05 ml/hr dosing at 15 units/kg/hr. PTT scheduled for 0800. No signs of bleeding noted. HOB at 30 degrees. Bed alarm engaged. Bed locked and in lowest position. Safety precautions in place. Will continue POC Addendum: 08/06/20 at 0705 by Yousif Mcnamara RN Charting at 0600 above is the wrong patient
--- NOTE | 2020-08-06 06:30 | NUR ---
NURSE NOTES: Sleeping. Respirations even and unlabored. In no apparent distress. Opens eyes spontaneously. Restraints in place. remain SR on the mortgage loan closer. Wiley draining well of large amount of clear yellow urine. Tolerating GT feeding well. HOB at 40 degrees. Bed alarm engaged. Bed locked and in lowest position. Safety precautions in place. Will continue POC
--- NOTE | 2020-08-06 07:15 | NUR ---
HAND-OFF: Report given to Galen Rojas RN.
--- NOTE | 2020-08-06 07:15 | NUR ---
NURSE NOTES:RECEIVED REPORT FROM [facility] [employer] T[employer]HER [employer]. RECEIVED PT WITH HOB ELEVATED 45 DEGREE OBTUNDED ORALLY INTUBATED ,ET SIZE 7.5 MID SHANTAL 23 CM.ET TUBE WELL SECURED AND CONNECTED TO A VENTILATOR.PT TOLERATING WELL CURRENTS VENT SETTINGS TV 600,AC 12, FIO2 30%, O2 SAT 100%. PICC-LINE ON RT UA PATENT AND INTACT RECEIVING 1/2 NS 2 50cc/hrs infussing well. pt on bilat soft wrist restraints ,REMOVED AND PROVIDE PASSIVE ROM TO ALL EXTREMITIES. PT REPOSITIONED IN BED AND MADE COMFORTABLE POSSIBLE. RE-APPLIED BILAT SOFT WRIST RESTRAINTS TO PREVENT HIM FROM PULLING MEDICAL DEVICES.PT WITH NGT RECEIVING GLUCERNA 1.2 @ 60CC/HRS ,NO RESIDUAL NOTED AT THIS TIME.NO ACUTE DISTRESS NOTED AT THIS TIME. WILL CONT TO MONITOR.
[2020-08-06 07:38] LABS: ALBUMIN 1.7 G/DL (3.4-5.0); ALBUMIN/GLOBULIN RATIO 0.4 (1.0-2.7); ALKALINE PHOSPHATASE 182 U/L (46-116); ANION GAP 7 mmol/L (5-15); ASPARTATE AMINO TRANSFERASE 23 U/L (15-37); BILIRUBIN,TOTAL 0.2 MG/DL (0.2-1.0); BLOOD UREA NITROGEN 27 mg/dL (7-18); CALCIUM 7.9 MG/DL (8.5-10.1); CARBON DIOXIDE 26 MMOL/L (21-32); CHLORIDE 108 MMOL/L (98-107); CREATININE 0.9 MG/DL (0.55-1.30); POTASSIUM 4.1 MMOL/L (3.5-5.1); SODIUM 141 MMOL/L (136-145)
[2020-08-06 08:05] LABS: ALANINE AMINOTRANSFERASE 32 U/L (12-78)
[2020-08-06] MEDS: Pantoprazole Inj IV SCH (09:54)
[2020-08-06] MEDS: Heparin 5000 units/ml inj SUBQ SCH ×2 (09:55→20:08)
--- NOTE | 2020-08-06 10:16 | Nephrology Progress Note ---
Assessment/Plan Problem List: (1) Dehydration (2) MELANIE (acute kidney injury) (3) Renal failure (ARF), acute on chronic (4) Hypoxia (5) Acute encephalopathy (6) Electrolyte imbalance Assessment 79-year-old male is admitted with acute hypoxic respiratory failure most likely secondary to pneumonia and sepsis, UTI. Acute on chronic renal failure Dehydration Electrolyte imbalances, hypernatremia Hypoalbuminemia Diabetes type 2 History of congestive heart failure Hypertension Hyperlipemia Alzheimer's Previous COVID-19 infection in May 2020 Plan August 06: Patient remains in ICU. Full code. Intubated. Fails weaning. Labs reviewed. Stable from renal standpoint of view. Discussed with RN. August 05: Labs reviewed. Discussed with RN. Abnormal electrolyte addressed. Remains intubated on ventilator. Continue per consultants. August 04: Labs reviewed. Discussed with RN. Stable from renal standpoint of view. Main issue is weaning from ventilator that keeps failing. Continue per consultants. August 03: Labs reviewed. Discussed with RN. Stable from renal standpoint of view. Continue per consultants. August 02: Patient seen and discussed with RN. Labs reviewed. Remains intubated. Trial of weaning this being attempted. Continue per consultants. August 01: Remains intubated. Labs reviewed. Renal parameters stable. Continue per consultants. July 31: Remains on mechanical ventilation. Labs reviewed. Abnormal electrolytes addressed. Stable from renal standpoint of view. July 30: Remains intubated. Remains full code. Labs reviewed. Low phosphorus replaced. Continue to monitor renal parameters. Continue per consultants. July 29: Failed weaning. Remains intubated. Remains full closed. Labs reviewed. Stable from renal standpoint view. July 28: Remains in ICU. Remains full code. Labs are reviewed. Phosphorus supplement given. Continue per consultants. July 27: Remains in ICU. Full code. Labs reviewed. Remains intubated. Stable renal parameters. July 26: In ICU. Full code. Discussed with RN. Stable renal parameters. July 25: Seen in ICU. Discussed with FLORES Holliday. Flomax discontinued. Labs reviewed. Stable from renal standpoint of view. July 24: Seen in ICU. Discussed with FLORES Holliday. Remains on pressor. Electrolyte abnormalities noted and addressed. Continue per consultants. Patient remains full code. July 23: Seen in ICU. Discussed with FLORES Barrera. Blood pressure remains a little requiring pressors. Labs reviewed. Stable renal parameters. Continue per consultants. July 22: Remains intubated. Full code. Blood pressure borderline low. Will increase midodrine dose. Discussed with RN. Continue to monitor renal parameters and electrolytes. July 21: Intubated. Full code. Labs reviewed. Stable from renal standpoint of view. Continue per consultants. July 20: Remains intubated. Full code. Labs reviewed. Electrolytes within normal limit. Continue per consultants. July 19: In ICU. Remains intubated on ventilator. Remains full code. Low potassium addressed. Blood pressure fluctuating. Continue per consultants. July 18: Patient in ICU. Intubated on ventilator. On 6 mics of Levophed. Will give 100 cc albumin 25%. K-Phos IV ordered. Continue per consultants. Continue monitor renal parameters and electrolytes. July 17: Status unchanged. Transfer to [facility] for seizure. Stable from renal standpoint to view. Continue per consultants. July 16: Status quo. Labs reviewed. Renal parameters stable. Continue per consultants. July 15: On nonrebreather mask. Labs reviewed. Renal parameters stable.Continue per recycle worker. Clinically unchanged. July 14: On nonrebreather mask. Inflammatory markers gradually declining. Renal parameters stable. Continue per pulmonary. July 13: Remains on nonrebreather mask. Inflammatory markers remain elevated. Renal parameters somewhat stable. Continue per pulmonary and ID. Remains full code. July 12: Patient on nonrebreather mask. Labs noted. Serum creatinine down to 1.3. Continue per consultants. July 11: Patient on nonrebreather mask. Transfer to telemetry when seen this morning. Labs noted. Continue per consultants. Serum creatinine erin to 1.7. Continue to monitor renal parameters. Continue to monitor vancomycin level July 10: Patient is not doing well clinically. Mild respiratory distress. ABG noted. Somewhat hypoxic. CBC and chemistry panel ordered. Discussed with FLORES Cho. Will defer to pulmonary management to specialist. Continue per ID. Renal parameters remained stable as of July 09. July 09: Labs reviewed. Renal parameters stable. Continue per consultants. July 08: Labs reviewed. Potassium via NG tube ordered. IV fluids stopped. Continue per consultants. July 07: Labs reviewed. Low potassium and low phosphorus replaced. Continue per consultants. Remains stable from renal standpoint of view. July 06: Patient remains n.p.o. IV fluid down to 50 cc an hour. Potassium supplement intravenously ordered. Continue per consultants. Previously: Patient is n.p.o., will continue on IV fluid of D5W 75 cc an hour We will monitor electrolytes and renal parameters Avoid nephrotoxic's Start p.o. when he clears by speech therapist, meanwhile aspiration precautions Keep the blood pressure and blood sugar in check Per orders Subjective ROS Limited/Unobtainable: Yes Objective Objective Last 24 Hour Vital Signs Date Time Temp Pulse Resp B/P (MAP) Pulse Ox O2 Delivery O2 Flow Rate FiO2 08/06/20 08:00 Mechanical Ventilator Mechanical Ventilator Mechanical Ventilator 08/06/20 08:00 30 08/06/20 08:00 58 11 115/67 (83) 100 08/06/20 07:18 54 15 30 08/06/20 07:00 98.4 57 12 119/55 (76) 99 08/06/20 06:30 64 12 08/06/20 06:00 62 13 100 08/06/20 05:00 61 12 123/60 (81) 100 08/06/20 04:00 55 08/06/20 04:00 Mechanical Ventilator Mechanical Ventilator Mechanical Ventilator 08/06/20 04:00 62 12 119/60 (79) 100 08/06/20 04:00 30 08/06/20 03:00 58 12 133/66 (88) 100 08/06/20 02:57 60 13 30 08/06/20 02:00 56 11 129/68 (88) 100 08/06/20 01:00 60 14 119/64 (82) 100 08/06/20 00:00 59 12 125/64 (84) 100 08/06/20 00:00 30 08/06/20 00:00 62 08/06/20 00:00 Mechanical Ventilator Mechanical Ventilator Mechanical Ventilator 08/05/20 23:00 60 12 113/60 (77) 98 08/05/20 23:00 67 12 30 08/05/20 22:00 66 22 104/53 (70) 97 08/05/20 21:00 74 20 135/80 (98) 98 08/05/20 20:00 Mechanical Ventilator Mechanical Ventilator Mechanical Ventilator 08/05/20 20:00 64 08/05/20 20:00 30 08/05/20 20:00 67 14 105/55 (72) 99 11/25/20 19:15 69 14 30 08/05/20 19:00 60 18 106/56 (73) 100 08/05/20 18:00 62 12 116/59 (78) 100 08/05/20 17:00 59 12 91/50 (64) 99 08/05/20 16:00 57 08/05/20 16:00 Mechanical Ventilator Mechanical Ventilator Mechanical Ventilator 08/05/20 16:00 30 08/05/20 16:00 98.3 57 13 123/77 (92) 98 08/05/20 15:06 51 12 30 08/05/20 15:00 51 12 148/63 (91) 99 08/05/20 14:00 55 12 143/66 (91) 99 08/05/20 13:00 56 13 120/60 (80) 100 08/05/20 12:00 Mechanical Ventilator Mechanical Ventilator Mechanical Ventilator 08/05/20 12:00 53 08/05/20 12:00 98.3 54 13 138/67 (90) 98 08/05/20 11:46 30 08/05/20 11:24 53 15 30 08/05/20 11:00 55 10 132/68 (89) 100 Intake and Output 08/05/20 08/06/20 19:00 07:00 Intake Total 760 ml 1120 ml Output Total 1010 ml 1700 ml Balance -250 ml -580 ml IV Total 460 ml 580 ml Tube Feeding 300 ml 540 ml Output Urine Total 1010 ml 1700 ml # Bowel Movements 4 3 Current Medications Medications (Trade) Dose Ordered Sig/Ankush Route PRN Reason Start Time Stop Time Status Last Admin Dose Admin Acetaminophen (Tylenol) 650 mg Q4H PRN GT Temp >100.5 08/01/20 12:30 08/31/20 12:29 08/03/20 10:14 Albuterol/ Ipratropium (Albuterol/ Ipratropium) 3 ml Q4HRT PRN HHN sob 08/02/20 10:45 08/07/20 10:44 Chlorhexidine Gluconate (Darcy-Hex 2%) 1 applic DAILY@1999 TOPIC 07/17/20 20:00 10/15/20 19:59 08/05/20 22:05 Dexamethasone (Decadron) 6 mg Q24H ORAL 08/02/20 18:00 08/11/20 18:01 08/05/20 18:17 Dextrose (Dextrose 50%) 50 ml Q30M PRN IV Hypoglycemia 07/03/20 22:45 10/01/20 22:44 Heparin Sodium (Porcine) (Heparin 5000 units/ml) 5,000 units EVERY 12 HOURS SUBQ 07/03/20 21:00 08/17/20 20:59 08/06/20 09:55 Insulin Aspart (NovoLOG) EVERY 6 HOURS SUBQ 07/13/20 06:00 10/02/20 06:29 08/05/20 23:40 Meropenem 1 gm/ Sodium Chloride 55 ml @ 110 mls/hr Q8H IVPB 08/01/20 10:00 08/10/20 09:59 08/06/20 03:09 Nitroglycerin (Ntg) 0.4 mg Q5M PRN SL Prn Chest Pain 08/01/20 10:15 08/31/20 10:09 Ondansetron HCl (Zofran) 4 mg Q6H PRN IVP Nausea & Vomiting 08/01/20 14:30 08/31/20 14:29 Pantoprazole (Protonix) 40 mg DAILY IV 07/18/20 09:00 08/17/20 08:59 08/06/20 09:54 Polyethylene Glycol (Miralax) 17 gm DAILYPRN PRN GT Constipation 08/01/20 10:15 08/31/20 10:14 Promethazine HCl/ Codeine (Phenergan with Codeine) 5 ml Q4H PRN GT For Cough 08/01/20 10:14 08/31/20 10:13 08/05/20 22:05 Sodium Chloride 1,000 ml @ 50 mls/hr Q20H IV 07/17/20 16:00 08/16/20 15:59 08/04/20 20:37 Laboratory Tests 08/05/20 11:42: POC Whole Blood Glucose 125H 08/06/20 05:20: Sodium Level 141, Potassium Level 4.1, Chloride Level 108H, Carbon Dioxide Level 26, Anion Gap 7, Blood Urea Nitrogen 27H, Creatinine 0.9, Estimat Glomerular Filtration Rate > 60, Glucose Level 137H, Calcium Level 7.9L, Phosphorus Level 3.0, Magnesium Level 2.4, Total Bilirubin 0.2, Aspartate Amino Transf (AST/SGOT) 23, Alanine Aminotransferase (ALT/SGPT) 32, Alkaline Phosphatase 182H, Total Protein 6.4, Albumin 1.7L, Globulin 4.7, Albumin/Globulin Ratio 0.4L Height (Feet): 5 Height (Inches): 4.00 Weight (Pounds): 130 General Appearance: no apparent distress EENT: other - Intubated on ventilator Cardiovascular: bradycardia Respiratory/Chest: decreased breath sounds Abdomen: distended Tino Connors MD Aug 06, 2020 10:16
--- NOTE | 2020-08-06 11:11 | Pulmonolgy Critical Care Note ---
Critical Care - Asmt/Plan Problems: (1) Acute respiratory failure (2) Multifocal pneumonia (3) 2019 novel coronavirus disease (COVID-19) (4) Acute encephalopathy (5) Severe sepsis (6) Alzheimer's dementia (7) HTN (hypertension) (8) History of CVA (cerebrovascular accident) (9) BPH (benign prostatic hyperplasia) Respiratory: monitor respiratory rate, adjust FIO2, CXR Cardiac: continue pressors, continue to monitor HR/BP Renal: F/U I&O, check electrolytes Infectious Disease: check cultures, continue antibiotics Gastrointestinal: hold feedings Endocrine: monitor blood sugar Hematologic: monitor H/H, transfuse if hgb<8.5 Neurologic: PRN Ativan, keep patient comfortable Affect: PRN ativan Prophylaxis: Protonix, Heparin Disposition: keep in ICU Time Spent (Minutes): 40 Notes Reviewed: utility accounts director, cardio, renal Discussed with: nurses, consultants, telephonic case managermanager of care - Objective Last 24 Hour Vital Signs Date Time Temp Pulse Resp B/P (MAP) Pulse Ox O2 Delivery O2 Flow Rate FiO2 08/06/20 08:00 Mechanical Ventilator Mechanical Ventilator Mechanical Ventilator 08/06/20 08:00 30 08/06/20 08:00 58 11 115/67 (83) 100 08/06/20 07:18 54 15 30 08/06/20 07:00 98.4 57 12 119/55 (76) 99 08/06/20 06:30 64 12 08/06/20 06:00 62 13 100 08/06/20 05:00 61 12 123/60 (81) 100 08/06/20 04:00 55 08/06/20 04:00 Mechanical Ventilator Mechanical Ventilator Mechanical Ventilator 08/06/20 04:00 62 12 119/60 (79) 100 08/06/20 04:00 30 08/06/20 03:00 58 12 133/66 (88) 100 08/06/20 02:57 60 13 30 08/06/20 02:00 56 11 129/68 (88) 100 08/06/20 01:00 60 14 119/64 (82) 100 08/06/20 00:00 59 12 125/64 (84) 100 08/06/20 00:00 30 08/06/20 00:00 62 08/06/20 00:00 Mechanical Ventilator Mechanical Ventilator Mechanical Ventilator 08/05/20 23:00 60 12 113/60 (77) 98 08/05/20 23:00 67 12 30 08/05/20 22:00 66 22 104/53 (70) 97 08/05/20 21:00 74 20 135/80 (98) 98 08/05/20 20:00 Mechanical Ventilator Mechanical Ventilator Mechanical Ventilator 08/05/20 20:00 64 08/05/20 20:00 30 08/05/20 20:00 67 14 105/55 (72) 99 08/05/20 19:15 69 14 30 08/05/20 19:00 60 18 106/56 (73) 100 08/05/20 18:00 62 12 116/59 (78) 100 08/05/20 17:00 59 12 91/50 (64) 99 08/05/20 16:00 57 08/05/20 16:00 Mechanical Ventilator Mechanical Ventilator Mechanical Ventilator 08/05/20 16:00 30 08/05/20 16:00 98.3 57 13 123/77 (92) 98 08/05/20 15:06 51 12 30 08/05/20 15:00 51 12 148/63 (91) 99 08/05/20 14:00 55 12 143/66 (91) 99 08/05/20 13:00 56 13 120/60 (80) 100 08/05/20 12:00 Mechanical Ventilator Mechanical Ventilator Mechanical Ventilator 08/05/20 12:00 53 08/05/20 12:00 98.3 54 13 138/67 (90) 98 08/05/20 11:46 30 08/05/20 11:24 53 15 30 Status: awake Condition: critical HEENT: atraumatic, normocephalic Neck: full ROM Heart: HR/BP stable Abdomen: soft, active bowel sounds Extremities: no C/C/E Decubiti: stage Objective: still large secretions, failed weaning Micro: Microbiology Date/Time Source Procedure Growth Status 08/03/20 14:00 Blood Picc Line Blood Culture - Preliminary NO GROWTH AFTER 48 HOURS Resulted 08/03/20 14:00 Blood Blood Culture - Preliminary NO GROWTH AFTER 48 HOURS Resulted Accucheck: 139 Critical Care - Subjective ROS Limited/Unobtainable: Yes Condition: critical EKG Rhythm: Sinus Rhythm FI02: 30 Vent Support Breath Rate: 12 Vent Support Mode: AC Vent Tidal Volume: 600 Sputum Amount: Moderate PEEP: 0.0 PIP: 21 Tube Feeding Amount: 60 I&O: Intake and Output 08/05/20 08/06/20 19:00 07:00 Intake Total 760 ml 1120 ml Output Total 1010 ml 1700 ml Balance -250 ml -580 ml IV Total 460 ml 580 ml Tube Feeding 300 ml 540 ml Output Urine Total 1010 ml 1700 ml # Bowel Movements 4 3 CXR: Bilateral left greater than right pleural effusions and bilateral parenchymal opacities persist, unchanged. ET-Tube: 7.5 ET Position: 25 Labs: Laboratory Tests Test 08/05/20 11:42 08/06/20 05:20 POC Whole Blood Glucose 125 MG/DL (74-106) H Sodium Level 141 MMOL/L (136-145) Potassium Level 4.1 MMOL/L (3.5-5.1) Chloride Level 108 MMOL/L (98-107) H Carbon Dioxide Level 26 MMOL/L (21-32) Anion Gap 7 mmol/L (5-15) Blood Urea Nitrogen 27 mg/dL (7-18) H Creatinine 0.9 MG/DL (0.55-1.30) Estimat Glomerular Filtration Rate > 60 mL/min (>60) Glucose Level 137 MG/DL (74-106) H Calcium Level 7.9 MG/DL (8.5-10.1) L Phosphorus Level 3.0 MG/DL (2.5-4.9) Magnesium Level 2.4 MG/DL (1.8-2.4) Total Bilirubin 0.2 MG/DL (0.2-1.0) Aspartate Amino Transf (AST/SGOT) 23 U/L (15-37) Alanine Aminotransferase (ALT/SGPT) 32 U/L (12-78) Alkaline Phosphatase 182 U/L (46-116) H Total Protein 6.4 G/DL (6.4-8.2) Albumin 1.7 G/DL (3.4-5.0) L Globulin 4.7 g/dL Albumin/Globulin Ratio 0.4 (1.0-2.7) L Kya Carreno MD Aug 06, 2020 11:11
[2020-08-06] MEDS ORDERED: NS 275ml ONE ×2 (14:21→14:27)
[2020-08-06] MEDS ORDERED: Tubing IV Secondary IV ONE (14:21)
[2020-08-06] MEDS ORDERED: 1/2 NS 1000ml IV ONE (14:27)
[2020-08-06] MEDS ORDERED: D5NS 1000ml IV ONE (14:27)
--- NOTE | 2020-08-06 14:54 | Internal Med Progress Note ---
Subjective Date of Service: Aug 06, 2020 Physician Name Groves,Dano Attending Physician Ahsan Hodges MD Current Medications Medications (Trade) Dose Ordered Sig/Ankush Route PRN Reason Start Time Stop Time Status Last Admin Dose Admin Acetaminophen (Tylenol) 650 mg Q4H PRN GT Temp >100.5 08/01/20 12:30 08/31/20 12:29 08/03/20 10:14 Albuterol/ Ipratropium (Albuterol/ Ipratropium) 3 ml Q4HRT PRN HHN sob 08/02/20 10:45 08/07/20 10:44 Chlorhexidine Gluconate (Darcy-Hex 2%) 1 applic DAILY@2000 TOPIC 07/17/20 20:00 10/15/20 19:59 08/05/20 22:05 Dexamethasone (Decadron) 6 mg Q24H ORAL 08/02/20 18:00 08/11/20 18:01 08/05/20 18:17 Dextrose (Dextrose 50%) 50 ml Q30M PRN IV Hypoglycemia 07/03/20 22:45 10/01/20 22:44 Heparin Sodium (Porcine) (Heparin 5000 units/ml) 5,000 units EVERY 12 HOURS SUBQ 07/03/20 21:00 08/17/20 20:59 08/06/20 09:55 Insulin Aspart (NovoLOG) EVERY 6 HOURS SUBQ 07/13/20 06:00 10/02/20 06:29 08/05/20 23:40 Meropenem 1 gm/ Sodium Chloride 55 ml @ 110 mls/hr Q8H IVPB 08/01/20 10:00 08/10/20 09:59 08/06/20 10:40 Nitroglycerin (Ntg) 0.4 mg Q5M PRN SL Prn Chest Pain 08/01/20 10:15 08/31/20 10:09 Ondansetron HCl (Zofran) 4 mg Q6H PRN IVP Nausea & Vomiting 08/01/20 14:30 08/31/20 14:29 Pantoprazole (Protonix) 40 mg DAILY IV 07/18/20 09:00 08/17/20 08:59 08/06/20 09:54 Polyethylene Glycol (Miralax) 17 gm DAILYPRN PRN GT Constipation 08/01/20 10:15 08/31/20 10:14 Promethazine HCl/ Codeine (Phenergan with Codeine) 5 ml Q4H PRN GT For Cough 08/01/20 10:14 08/31/20 10:13 08/05/20 22:05 Sodium Chloride 1,000 ml @ 50 mls/hr Q20H IV 07/17/20 16:00 08/16/20 15:59 08/06/20 14:27 Allergies: Coded Allergies: No Known Allergies (Unverified , 04/30/12) ROS Limited/Unobtainable: Yes Subjective 79 YO M admitted with shortness of breath. Now pneumonia; previously COVID p ositive. Cover for Int laina-Dr Hodges. ICU. Intubated and sedated. Objective Last Vital Signs Date Time Temp Pulse Resp B/P (MAP) Pulse Ox O2 Delivery O2 Flow Rate FiO2 08/06/20 12:00 54 08/06/20 12:00 98.3 13 150/81 (104) 100 08/06/20 10:30 30 08/06/20 08:00 Mechanical Ventilator Mechanical Ventilator Mechanical Ventilator Laboratory Tests Test 08/06/20 05:20 Sodium Level 141 MMOL/L (136-145) Potassium Level 4.1 MMOL/L (3.5-5.1) Chloride Level 108 MMOL/L (98-107) H Carbon Dioxide Level 26 MMOL/L (21-32) Anion Gap 7 mmol/L (5-15) Blood Urea Nitrogen 27 mg/dL (7-18) H Creatinine 0.9 MG/DL (0.55-1.30) Estimat Glomerular Filtration Rate > 60 mL/min (>60) Glucose Level 137 MG/DL (74-106) H Calcium Level 7.9 MG/DL (8.5-10.1) L Phosphorus Level 3.0 MG/DL (2.5-4.9) Magnesium Level 2.4 MG/DL (1.8-2.4) Total Bilirubin 0.2 MG/DL (0.2-1.0) Aspartate Amino Transf (AST/SGOT) 23 U/L (15-37) Alanine Aminotransferase (ALT/SGPT) 32 U/L (12-78) Alkaline Phosphatase 182 U/L (46-116) H Total Protein 6.4 G/DL (6.4-8.2) Albumin 1.7 G/DL (3.4-5.0) L Globulin 4.7 g/dL Albumin/Globulin Ratio 0.4 (1.0-2.7) L Intake and Output 08/05/20 08/06/20 19:00 07:00 Intake Total 760 ml 1120 ml Output Total 1010 ml 1700 ml Balance -250 ml -580 ml IV Total 460 ml 580 ml Tube Feeding 300 ml 540 ml Output Urine Total 1010 ml 1700 ml # Bowel Movements 4 3 Objective PHYSICAL EXAMINATION: GENERAL: The patient awake with deep stimuli, open his eyes, however, cannot follow commands. The patient is on a Ventimask at this time, chronically ill-appearing. HEAD AND NECK: Pupils are equal and reactive to light. Anicteric. NECK: Supple. No JVD. LUNGS: Mech vent; wheezing, rhonchi, and decreased air in bases. HEART: S1, S2. Regular rhythm. Distant heart sounds. No murmur or gallop. ABDOMEN: Soft, nondistended, nontender. Positive bowel sounds. EXTREMITIES: No cyanosis, clubbing, or edema. NEUROLOGIC: Very limited secondary to the patient's status, cannot follow commands. Opens his eyes with deep stimuli and moving extremities spontaneously. Assessment/Plan Assessment/Plan ASSESSMENT: 1. Acute hypoxemic respiratory failure, most likely secondary to pneumonia and sepsis. 2. Sepsis secondary to urinary tract infection and pneumonia. 3. pneumonia=MRSA; ESBL E. coli 4. Acute kidney injury on chronic renal insufficiency. 5. Dehydration. 6. History of chronic congestive heart failure. 7. Diabetes type 2. 8. Dyslipidemia. 9. Hypertension. 10. Alzheimer's disease. 11. COVID 19 previous positive PLAN: 1. ICU 2. Dr. Carreno,=Pulmonary Critical Care; follow mech vent recs 3. Dr. Cho = Inf Dis. 4. IV= D5W due to the hypernatremia and dehydration. 5. antibiotics = meropenem; S/P micafungin and zyvox 6. Code status is full code. 7. DVT prophylaxis is heparin subcutaneous. Dano Groves MD Aug 06, 2020 14:54
--- NOTE | 2020-08-06 19:00 | NUR ---
NURSE NOTES: Received patient and report from FLORES Aaron. Patient is observed resting in bed and remains obtunded. No pain noted upon assessment. Pt is currently orally intubated ett size 7.5 noted to be 25 @ lip line. Pt appears to be tolerating current vent settings well. Vent settings as follows: AC 12 TV 600 FiO2 30% PEEP 0. Bilateral lower lobe breath sounds noted to be mildly diminished upon auscultation. Pt noted to be SB on tele monitor with a HR of 56. R upper arm PICC line noted which remains asymptomatic, intact and patent. Central line dressing changed per protocol. Central line dressing remains clean, dry and intact. 1/2NS currently infusing at 50 mL/hr as ordered. VS remain stable at this time. Active bowel sounds noted in all four quadrants; abdomen remains round and soft. L nare NG Tube noted which remains intact and secured. Glucerna 1.2 continues to infuse at 60mL/hr with no residual noted. Wiley catheter noted draining yellow urine to gravity. Diagnostics reviewed at bedside. Skin alterations noted. Fall, Aspiration and Skin precautions observed. Pt remains resting in bed; Bed remains in the lowest position with the safety wheels engaged, call light within reach, side rails up x3 and bed alarm activated. Will continue plan of care. Will continue to monitor.
--- NOTE | 2020-08-06 19:20 | NUR ---
HAND-OFF: Report given to .JOAQUIN TANNER.
[2020-08-06] MEDS: Dyna-Hex 2% Top Sol 2oz TOPIC SCH (20:08)
--- NOTE | 2020-08-06 21:00 | NUR ---
NURSE NOTES: Pt provided with a CHG bed bath, oral care and linen change. Bedside assessment performed, assessed pt for pain with a FLACC score of 0 noted. Respiratory status remains stable. Pt repositioned for comfort and safety. ROM exercises performed per pt tolerance. Fall, Aspiration and Skin precautions observed. Pt remains resting in bed; Bed remains in the lowest position with the safety wheels engaged, call light within reach, side rails up x3 and bed alarm activated. Will continue plan of care. Will continue to monitor.
--- NOTE | 2020-08-06 23:00 | NUR ---
NURSE NOTES: Bedside assessment performed, assessed pt for pain with a FLACC score of 0 noted. VS obtained and remain stable at this time. Respiratory status remains stable. Diversional activities noted to be successful at this time. Pt calm and cooperative and not pulling at medical devices currently. Bilateral soft wrist restraints d/c per order. Will continue to monitor patient. Fall, Aspiration and Skin precautions observed. Pt remains resting in bed; Bed remains in the lowest position with the safety wheels engaged, call light within reach, side rails up x3 and bed alarm activated. Will continue plan of care. Will continue to monitor.
[2020-08-07] VITALS (24 sets, daily range): BP systolic 103–146; BP diastolic 59–86
[2020-08-07] MEDS: NovoLOG Insulin Flexpen SUBQ SCH ×5 (00:09→23:17)
--- NOTE | 2020-08-07 01:00 | NUR ---
NURSE NOTES: Bedside assessment performed, assessed pt for pain with a FLACC score of 0 noted. Pt remains sleeping comfortably. Pt remains clean and dry. VS obtained and remain stable at this time. No s/sx of cardiopulmonary distress noted at this time. Fall, Aspiration and Skin precautions observed. Pt remains resting in bed; Bed remains in the lowest position with the safety wheels engaged, call light within reach, side rails up x3 and bed alarm activated. Will continue plan of care. Will continue to monitor.
[2020-08-07] MEDS: Meropenem 1 GM in NS 55 ML IVPB SCH ×3 (02:17→17:59)
--- NOTE | 2020-08-07 03:00 | NUR ---
NURSE NOTES: Bedside assessment performed, assessed pt for pain with a FLACC score of 0 noted. Pt now noted to be restless and uncooperative with care. Pt continues to attempt to pull medical devices. Bilateral wrist restraints in place per MD order for pt safety. Diversional activities unsuccessful at this time. CMS remains intact and ROM exercises provided. Pt remains clean and dry. VS obtained and remain stable at this time. No s/sx of cardiopulmonary distress noted at this time. Fall, Aspiration and Skin precautions observed. Pt remains resting in bed; Bed remains in the lowest position with the safety wheels engaged, call light within reach, side rails up x3 and bed alarm activated. Will continue plan of care. Will continue to monitor.
--- NOTE | 2020-08-07 05:00 | NUR ---
NURSE NOTES: Morning lab samples drawn per order without incident. Samples sent to laboratory for analysis, will await results. Bedside assessment performed, assessed pt for pain with a FLACC score of 0 noted. Pt remains clean and dry. VS obtained and remain stable at this time. No s/sx of cardiopulmonary distress noted at this time. Fall, Aspiration and Skin precautions observed. Pt remains resting in bed; Bed remains in the lowest position with the safety wheels engaged, call light within reach, side rails up x3 and bed alarm activated. Will continue plan of care. Will continue to monitor.
[2020-08-07 05:07] LABS: BASOPHILS % (AUTO) 0.2 % (0.0-2.0); HEMATOCRIT 31.9 % (42.0-52.0); HEMOGLOBIN 10.5 G/DL (14.2-18.0); LYMPHOCYTES % (AUTO) 15.1 % (20.0-45.0); MEAN CORPUSCULAR VOLUME 95 FL (80-99); MONOCYTES % (AUTO) 2.6 % (1.0-10.0); NEUTROPHILS % (AUTO) 82.1 % (45.0-75.0); PLATELET COUNT 318 K/UL (150-450); RED BLOOD COUNT 3.37 M/UL (4.70-6.10); RED CELL DISTRIBUTION WIDTH 18.6 % (11.6-14.8); WHITE BLOOD COUNT 6.7 K/UL (4.8-10.8)
[2020-08-07 05:32] LABS: BLOOD UREA NITROGEN 28 mg/dL (7-18); CALCIUM 8.2 MG/DL (8.5-10.1); CARBON DIOXIDE 21 MMOL/L (21-32); CHLORIDE 104 MMOL/L (98-107); CREATININE 0.9 MG/DL (0.55-1.30); POTASSIUM 4.6 MMOL/L (3.5-5.1); SODIUM 136 MMOL/L (136-145)
--- NOTE | 2020-08-07 07:02 | NUR ---
NURSE HAND-OFF REPORT: Latest Vital Signs: Temperature 98.4 , Pulse 55 , B/P 121 /66 , Respiratory Rate 14 , O2 SAT 100 , Mechanical Ventilator, O2 Flow Rate Vital Sign Comment: VS remained stable for duration of shift EKG Rhythm: Sinus Rhythm Rhythm change?: N Notified?: N Response:N/A Latest Gonzalez Fall Score: 50 Fall Risk: High Risk Safety Measures: Call light Within Reach, Bed Alarm Zone 2, Side Rails Side Rails x2, Bed position Low and Locked. Fall Precautions: Door Sign Report given to FLORES Bravo. Endorsed plan of care.
[2020-08-07] MEDS: Heparin 5000 units/ml inj SUBQ SCH ×2 (09:00→20:27)
[2020-08-07] MEDS: Pantoprazole Inj IV SCH (09:00)
--- NOTE | 2020-08-07 09:15 | NUR ---
0915 OPENS EYES GOOD DIRECTCONTACT DEOSE NOT FOLLOWS COMANDS V/S CONDITION STABLE ON WEANING PROTOCOL WITH HOB UP
--- NOTE | 2020-08-07 09:22 | NUR ---
RESPIRATORY NOTE: Patient placed on SBT (CPAP 0, PS 8). Patient does not display any signs of respiratory distress. FLORES corona.
--- NOTE | 2020-08-07 10:59 | Pulmonolgy Critical Care Note ---
Critical Care - Asmt/Plan Problems: (1) Acute respiratory failure (2) Multifocal pneumonia (3) 2019 novel coronavirus disease (COVID-19) (4) Acute encephalopathy (5) Severe sepsis (6) Alzheimer's dementia (7) HTN (hypertension) (8) History of CVA (cerebrovascular accident) (9) BPH (benign prostatic hyperplasia) Respiratory: monitor respiratory rate, adjust FIO2, CXR Cardiac: continue pressors, continue to monitor HR/BP Renal: F/U I&O, keep IV fluid Infectious Disease: check cultures Gastrointestinal: continue feedings/current rate Endocrine: continue sliding scale insulin Hematologic: transfuse if hgb<8.5 Neurologic: PRN Ativan, PRN Morphine, keep patient comfortable Affect: PRN ativan Prophylaxis: Heparin Time Spent (Minutes): 40 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, 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, 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 Discussed with: nurses, consultants, embedded case managerbank manager - Objective Last 24 Hour Vital Signs Date Time Temp Pulse Resp B/P (MAP) Pulse Ox O2 Delivery O2 Flow Rate FiO2 08/07/20 10:00 59 20 136/69 (91) 99 08/07/20 09:30 30 08/07/20 09:00 55 14 140/77 (98) 100 08/07/20 08:00 30 08/07/20 08:00 58 08/07/20 08:00 97.8 61 13 142/71 (94) 100 08/07/20 08:00 Mechanical Ventilator Mechanical Ventilator Mechanical Ventilator 08/07/20 07:00 59 15 30 08/07/20 07:00 55 14 121/66 (84) 100 08/07/20 06:30 56 12 08/07/20 06:00 58 12 129/66 (87) 99 08/07/20 05:00 59 14 134/65 (88) 99 08/07/20 04:00 30 08/07/20 04:00 Mechanical Ventilator Mechanical Ventilator Mechanical Ventilator 08/07/20 04:00 98.4 59 11 124/70 (88) 100 08/07/20 03:50 60 08/07/20 03:00 62 15 136/71 (92) 100 08/07/20 03:00 73 15 30 08/07/20 02:00 61 12 116/64 (81) 100 08/07/20 01:00 62 15 124/67 (86) 98 08/07/20 00:00 98.3 62 13 128/61 (83) 100 08/07/20 00:00 30 08/07/20 00:00 Mechanical Ventilator Mechanical Ventilator Mechanical Ventilator 08/06/20 23:00 62 13 112/64 (80) 100 08/06/20 22:48 61 12 30 08/06/20 22:00 62 13 121/66 (84) 100 08/06/20 21:00 56 12 131/73 (92) 100 08/06/20 20:21 69 08/06/20 20:00 30 08/06/20 20:00 98.4 57 13 116/71 (86) 100 08/06/20 20:00 Mechanical Ventilator Mechanical Ventilator Mechanical Ventilator 08/06/20 19:15 56 14 30 08/06/20 19:00 55 14 141/76 (97) 100 08/06/20 18:00 57 12 133/68 (89) 100 08/06/20 17:00 68 12 120/57 (78) 100 08/06/20 16:35 57 15 100 Mechanical Ventilator 30 08/06/20 16:00 30 08/06/20 16:00 Mechanical Ventilator Mechanical Ventilator Mechanical Ventilator 08/06/20 16:00 98.4 57 12 105/60 (75) 100 08/06/20 16:00 57 08/06/20 15:12 55 14 30 08/06/20 15:00 55 11 123/60 (81) 100 08/06/20 14:00 60 11 128/56 (80) 100 08/06/20 13:00 56 12 123/62 (82) 100 08/06/20 12:00 30 08/06/20 12:00 54 08/06/20 12:00 Mechanical Ventilator Mechanical Ventilator Mechanical Ventilator 08/06/20 12:00 98.3 54 13 150/81 (104) 100 Status: sedated Condition: critical HEENT: atraumatic Neck: full ROM Lungs: clear Heart: HR/BP stable Abdomen: soft, active bowel sounds Extremities: no C/C/E Decubiti: location Objective: still large secretions, failed weaning Accucheck: 148 Critical Care - Subjective ROS Limited/Unobtainable: Yes Condition: critical EKG Rhythm: Sinus Rhythm FI02: 30 Vent Support Breath Rate: 12 Vent Support Mode: AC Vent Tidal Volume: 600 Sputum Amount: Moderate PEEP: 0.0 PIP: 20 Tube Feeding Amount: 60 I&O: Intake and Output 08/06/20 08/07/20 19:00 07:00 Intake Total 1062.5 ml 1520 ml Output Total 1270 ml 1650 ml Balance -207.5 ml -130 ml Free Water 60 ml 90 ml IV Total 282.5 ml 710 ml Tube Feeding 720 ml 720 ml Output Urine Total 1270 ml 1650 ml # Bowel Movements 3 ET-Tube: 7.5 ET Position: 25 Labs: Laboratory Tests Test 08/06/20 12:07 08/07/20 00:06 08/07/20 03:00 08/07/20 04:59 POC Whole Blood Glucose 104 MG/DL (74-106) 146 MG/DL (74-106) H Pending White Blood Count 6.7 K/UL (4.8-10.8) Red Blood Count 3.37 M/UL (4.70-6.10) L Hemoglobin 10.5 G/DL (14.2-18.0) L Hematocrit 31.9 % (42.0-52.0) L Mean Corpuscular Volume 95 FL (80-99) Mean Corpuscular Hemoglobin 31.2 PG (27.0-31.0) H Mean Corpuscular Hemoglobin Concent 32.9 G/DL (32.0-36.0) Red Cell Distribution Width 18.6 % (11.6-14.8) H Platelet Count 318 K/UL (150-450) Mean Platelet Volume 7.0 FL (6.5-10.1) Neutrophils (%) (Auto) 82.1 % (45.0-75.0) H Lymphocytes (%) (Auto) 15.1 % (20.0-45.0) L Monocytes (%) (Auto) 2.6 % (1.0-10.0) Eosinophils (%) (Auto) 0.0 % (0.0-3.0) Basophils (%) (Auto) 0.2 % (0.0-2.0) Sodium Level 136 MMOL/L (136-145) Potassium Level 4.6 MMOL/L (3.5-5.1) Chloride Level 104 MMOL/L (98-107) Carbon Dioxide Level 21 MMOL/L (21-32) Blood Urea Nitrogen 28 mg/dL (7-18) H Creatinine 0.9 MG/DL (0.55-1.30) Estimat Glomerular Filtration Rate > 60 mL/min (>60) Glucose Level 131 MG/DL (74-106) H Calcium Level 8.2 MG/DL (8.5-10.1) L Kya Carreno MD Aug 07, 2020 10:59
--- NOTE | 2020-08-07 11:12 | Nephrology Progress Note ---
Assessment/Plan Problem List: (1) Dehydration (2) MELANIE (acute kidney injury) (3) Renal failure (ARF), acute on chronic (4) Hypoxia (5) Acute encephalopathy (6) Electrolyte imbalance Assessment 79-year-old male is admitted with acute hypoxic respiratory failure most likely secondary to pneumonia and sepsis, UTI. Acute on chronic renal failure Dehydration Electrolyte imbalances, hypernatremia Hypoalbuminemia Diabetes type 2 History of congestive heart failure Hypertension Hyperlipemia Alzheimer's Previous COVID-19 infection in May 2020 Plan August 07: Remains in ICU. Remains intubated. Remains full code. Continues to be on weaning trials. Renal parameters are stable. August 06: Patient remains in ICU. Full code. Intubated. Fails weaning. Labs reviewed. Stable from renal standpoint of view. Discussed with RN. August 05: Labs reviewed. Discussed with RN. Abnormal electrolyte addressed. Remains intubated on ventilator. Continue per consultants. August 04: Labs reviewed. Discussed with RN. Stable from renal standpoint of view. Main issue is weaning from ventilator that keeps failing. Continue per consultants. August 03: Labs reviewed. Discussed with RN. Stable from renal standpoint of view. Continue per consultants. August 02: Patient seen and discussed with RN. Labs reviewed. Remains intubated. Trial of weaning this being attempted. Continue per consultants. August 01: Remains intubated. Labs reviewed. Renal parameters stable. Continue per consultants. July 31: Remains on mechanical ventilation. Labs reviewed. Abnormal electrolytes addressed. Stable from renal standpoint of view. July 30: Remains intubated. Remains full code. Labs reviewed. Low phosphorus replaced. Continue to monitor renal parameters. Continue per consultants. July 29: Failed weaning. Remains intubated. Remains full closed. Labs reviewed. Stable from renal standpoint view. July 28: Remains in ICU. Remains full code. Labs are reviewed. Phosphorus supplement given. Continue per consultants. July 27: Remains in ICU. Full code. Labs reviewed. Remains intubated. Stable renal parameters. July 26: In ICU. Full code. Discussed with RN. Stable renal parameters. July 25: Seen in ICU. Discussed with FLORES Holliday. Flomax discontinued. Labs reviewed. Stable from renal standpoint of view. July 24: Seen in ICU. Discussed with FLORES Holliday. Remains on pressor. Electrolyte abnormalities noted and addressed. Continue per consultants. Patient remains full code. July 23: Seen in ICU. Discussed with FLORES Barrera. Blood pressure remains a little requiring pressors. Labs reviewed. Stable renal parameters. Continue per consultants. July 22: Remains intubated. Full code. Blood pressure borderline low. Will increase midodrine dose. Discussed with RN. Continue to monitor renal parameters and electrolytes. July 21: Intubated. Full code. Labs reviewed. Stable from renal standpoint of view. Continue per consultants. July 20: Remains intubated. Full code. Labs reviewed. Electrolytes within normal limit. Continue per consultants. July 19: In ICU. Remains intubated on ventilator. Remains full code. Low potassium addressed. Blood pressure fluctuating. Continue per consultants. July 18: Patient in ICU. Intubated on ventilator. On 6 mics of Levophed. Will give 100 cc albumin 25%. K-Phos IV ordered. Continue per consultants. Continue monitor renal parameters and electrolytes. July 17: Status unchanged. Transfer to [facility] for seizure. Stable from renal standpoint to view. Continue per consultants. July 16: Status quo. Labs reviewed. Renal parameters stable. Continue per consultants. July 15: On nonrebreather mask. Labs reviewed. Renal parameters stable.Continue per real estate leasing agent. Clinically unchanged. July 14: On nonrebreather mask. Inflammatory markers gradually declining. Renal parameters stable. Continue per pulmonary. July 13: Remains on nonrebreather mask. Inflammatory markers remain elevated. Renal parameters somewhat stable. Continue per pulmonary and ID. Remains full code. July 12: Patient on nonrebreather mask. Labs noted. Serum creatinine down to 1.3. Continue per consultants. July 11: Patient on nonrebreather mask. Transfer to telemetry when seen this morning. Labs noted. Continue per consultants. Serum creatinine erin to 1.7. Continue to monitor renal parameters. Continue to monitor vancomycin level July 10: Patient is not doing well clinically. Mild respiratory distress. ABG noted. Somewhat hypoxic. CBC and chemistry panel ordered. Discussed with FLORES Cho. Will defer to pulmonary management to specialist. Continue per ID. Renal parameters remained stable as of July 09. July 09: Labs reviewed. Renal parameters stable. Continue per consultants. July 08: Labs reviewed. Potassium via NG tube ordered. IV fluids stopped. Continue per consultants. July 07: Labs reviewed. Low potassium and low phosphorus replaced. Continue per consultants. Remains stable from renal standpoint of view. July 06: Patient remains n.p.o. IV fluid down to 50 cc an hour. Potassium supplement intravenously ordered. Continue per consultants. Previously: Patient is n.p.o., will continue on IV fluid of D5W 75 cc an hour We will monitor electrolytes and renal parameters Avoid nephrotoxic's Start p.o. when he clears by speech therapist, meanwhile aspiration precautions Keep the blood pressure and blood sugar in check Per orders Subjective ROS Limited/Unobtainable: Yes Objective Objective Last 24 Hour Vital Signs Date Time Temp Pulse Resp B/P (MAP) Pulse Ox O2 Delivery O2 Flow Rate FiO2 08/07/20 10:00 59 20 136/69 (91) 99 08/07/20 09:30 30 08/07/20 09:00 55 14 140/77 (98) 100 08/07/20 08:00 30 08/07/20 08:00 58 08/07/20 08:00 97.8 61 13 142/71 (94) 100 08/07/20 08:00 Mechanical Ventilator Mechanical Ventilator Mechanical Ventilator 08/07/20 07:00 59 15 30 08/07/20 07:00 55 14 121/66 (84) 100 08/07/20 06:30 56 12 08/07/20 06:00 58 12 129/66 (87) 99 08/07/20 05:00 59 14 134/65 (88) 99 08/07/20 04:00 30 08/07/20 04:00 Mechanical Ventilator Mechanical Ventilator Mechanical Ventilator 08/07/20 04:00 98.4 59 11 124/70 (88) 100 08/07/20 03:50 60 08/07/20 03:00 62 15 136/71 (92) 100 08/07/20 03:00 73 15 30 08/07/20 02:00 61 12 116/64 (81) 100 08/07/20 01:00 62 15 124/67 (86) 98 08/07/20 00:00 98.3 62 13 128/61 (83) 100 08/07/20 00:00 30 08/07/20 00:00 Mechanical Ventilator Mechanical Ventilator Mechanical Ventilator 08/06/20 23:00 62 13 112/64 (80) 100 08/06/20 22:48 61 12 30 08/06/20 22:00 62 13 121/66 (84) 100 08/06/20 21:00 56 12 131/73 (92) 100 08/06/20 20:21 69 08/06/20 20:00 30 08/06/20 20:00 98.4 57 13 116/71 (86) 100 08/06/20 20:00 Mechanical Ventilator Mechanical Ventilator Mechanical Ventilator 08/06/20 19:15 56 14 30 08/06/20 19:00 55 14 141/76 (97) 100 08/06/20 18:00 57 12 133/68 (89) 100 08/06/20 17:00 68 12 120/57 (78) 100 08/06/20 16:35 57 15 100 Mechanical Ventilator 30 08/06/20 16:00 30 08/06/20 16:00 Mechanical Ventilator Mechanical Ventilator Mechanical Ventilator 08/06/20 16:00 98.4 57 12 105/60 (75) 100 08/06/20 16:00 57 08/06/20 15:12 55 14 30 08/06/20 15:00 55 11 123/60 (81) 100 08/06/20 14:00 60 11 128/56 (80) 100 08/06/20 13:00 56 12 123/62 (82) 100 08/06/20 12:00 30 08/06/20 12:00 54 08/06/20 12:00 Mechanical Ventilator Mechanical Ventilator Mechanical Ventilator 08/06/20 12:00 98.3 54 13 150/81 (104) 100 Intake and Output 08/06/20 08/07/20 19:00 07:00 Intake Total 1062.5 ml 1520 ml Output Total 1270 ml 1650 ml Balance -207.5 ml -130 ml Free Water 60 ml 90 ml IV Total 282.5 ml 710 ml Tube Feeding 720 ml 720 ml Output Urine Total 1270 ml 1650 ml # Bowel Movements 3 Current Medications Medications (Trade) Dose Ordered Sig/Ankush Route PRN Reason Start Time Stop Time Status Last Admin Dose Admin Acetaminophen (Tylenol) 650 mg Q4H PRN GT Temp >100.5 08/01/20 12:30 08/31/20 12:29 08/03/20 10:14 Chlorhexidine Gluconate (Darcy-Hex 2%) 1 applic DAILY@2000 TOPIC 07/17/20 20:00 10/15/20 19:59 08/06/20 20:08 Dexamethasone (Decadron) 6 mg Q24H ORAL 08/02/20 18:00 08/11/20 18:01 08/06/20 19:26 Dextrose (Dextrose 50%) 50 ml Q30M PRN IV Hypoglycemia 07/03/20 22:45 10/01/20 22:44 Heparin Sodium (Porcine) (Heparin 5000 units/ml) 5,000 units EVERY 12 HOURS SUBQ 07/03/20 21:00 08/17/20 20:59 08/07/20 09:00 Insulin Aspart (NovoLOG) EVERY 6 HOURS SUBQ 07/13/20 06:00 10/02/20 06:29 08/07/20 05:09 Meropenem 1 gm/ Sodium Chloride 55 ml @ 110 mls/hr Q8H IVPB 08/01/20 10:00 08/10/20 09:59 08/07/20 10:25 Nitroglycerin (Ntg) 0.4 mg Q5M PRN SL Prn Chest Pain 08/01/20 10:15 08/31/20 10:09 Ondansetron HCl (Zofran) 4 mg Q6H PRN IVP Nausea & Vomiting 08/01/20 14:30 08/31/20 14:29 Pantoprazole (Protonix) 40 mg DAILY IV 07/18/20 09:00 08/17/20 08:59 08/07/20 09:00 Polyethylene Glycol (Miralax) 17 gm DAILYPRN PRN GT Constipation 08/01/20 10:15 08/31/20 10:14 Promethazine HCl/ Codeine (Phenergan with Codeine) 5 ml Q4H PRN GT For Cough 08/01/20 10:14 08/31/20 10:13 08/05/20 22:05 Sodium Chloride 1,000 ml @ 50 mls/hr Q20H IV 07/17/20 16:00 08/16/20 15:59 08/06/20 14:27 Laboratory Tests 08/06/20 12:07: POC Whole Blood Glucose 104 08/07/20 00:06: POC Whole Blood Glucose 146H 08/07/20 03:00: White Blood Count 6.7, Red Blood Count 3.37L, Hemoglobin 10.5L, Hematocrit 31.9L , Mean Corpuscular Volume 95, Mean Corpuscular Hemoglobin 31.2H, Mean Corpuscular Hemoglobin Concent 32.9, Red Cell Distribution Width 18.6H, Platelet Count 318, Mean Platelet Volume 7.0, Neutrophils (%) (Auto) 82.1H, Lymphocytes (%) (Auto) 15.1L, Monocytes (%) (Auto) 2.6, Eosinophils (%) (Auto) 0.0, Basophils (%) (Auto) 0.2, Sodium Level 136, Potassium Level 4.6, Chloride Level 104, Carbon Dioxide Level 21, Blood Urea Nitrogen 28H, Creatinine 0.9, Estimat Glomerular Filtration Rate > 60, Glucose Level 131H, Calcium Level 8.2L 08/07/20 04:59: POC Whole Blood Glucose [Pending] Height (Feet): 5 Height (Inches): 4.00 Weight (Pounds): 130 General Appearance: no apparent distress EENT: other - Intubated on ventilator Respiratory/Chest: decreased breath sounds Abdomen: distended Tino Connors MD Aug 07, 2020 11:12
--- NOTE | 2020-08-07 11:21 | NUR ---
RESPIRATORY NOTES Patient tidal volumes began to drop to 100mL, patient placed back on previous vent settings, patient now receiving adequate tidal volumes. FLORES Card aware, will continue to monitor.
--- NOTE | 2020-08-07 11:34 | NUR ---
@[id number] place back on ac pt [email or web address].[email or web address] became restress
--- NOTE | 2020-08-07 11:53 | Cardiac Electrophysiology PN ---
Assessment/Plan Assessment/Plan 1. Accelerated junctional rhythm. Ruled out for PR Echo showed ejection fraction of 55%. 2. Long run of 31 beats of Nonsustained VT on 07/14/2020. Cardiac cath after stabilization. 3. Aníbal 30, Asystole while on the Vent due to resp failure/ likely mucus plug . S/P Code Off midodrine 4. Respiratory failure, on antibiotic and intubated on the vent Failed weaning. Family refused tracheostomy 5. Septic shock. Off Levophed 6. History of previous COVID infection in May 2020 and active Covid in isolation Now negative again and off isolation. 7. Dementia. SHAYY RN and Dr hernandez Subjective Subjective In ICU on the Venton Fio2 30%, PEEP 5. Off isolation Had 31 beats of VT on 07/14/20 and 5 beats 07/19/20 Coded on 07/23/20 as sat dropped to 20% and got aníbal 30s and PEA and pulseless Off Levophed Covid test was negative. Failed weaning again. Family still refusing tracheostomy. Still aníbal in 50s and off Midodrine Objective Last 24 Hour Vital Signs Date Time Temp Pulse Resp B/P (MAP) Pulse Ox O2 Delivery O2 Flow Rate FiO2 08/07/20 11:33 30 08/07/20 11:00 57 16 124/63 (83) 99 08/07/20 10:00 59 20 136/69 (91) 99 08/07/20 09:30 30 08/07/20 09:00 55 14 140/77 (98) 100 08/07/20 08:00 30 08/07/20 08:00 58 08/07/20 08:00 97.8 61 13 142/71 (94) 100 08/07/20 08:00 Mechanical Ventilator Mechanical Ventilator Mechanical Ventilator 08/07/20 07:00 59 15 30 08/07/20 07:00 55 14 121/66 (84) 100 08/07/20 06:30 56 12 08/07/20 06:00 58 12 129/66 (87) 99 08/07/20 05:00 59 14 134/65 (88) 99 08/07/20 04:00 30 08/07/20 04:00 Mechanical Ventilator Mechanical Ventilator Mechanical Ventilator 08/07/20 04:00 98.4 59 11 124/70 (88) 100 08/07/20 03:50 60 08/07/20 03:00 62 15 136/71 (92) 100 08/07/20 03:00 73 15 30 08/07/20 02:00 61 12 116/64 (81) 100 08/07/20 01:00 62 15 124/67 (86) 98 08/07/20 00:00 98.3 62 13 128/61 (83) 100 08/07/20 00:00 30 08/07/20 00:00 Mechanical Ventilator Mechanical Ventilator Mechanical Ventilator 08/06/20 23:00 62 13 112/64 (80) 100 08/06/20 22:48 61 12 30 08/06/20 22:00 62 13 121/66 (84) 100 08/06/20 21:00 56 12 131/73 (92) 100 08/06/20 20:21 69 08/06/20 20:00 30 08/06/20 20:00 98.4 57 13 116/71 (86) 100 08/06/20 20:00 Mechanical Ventilator Mechanical Ventilator Mechanical Ventilator 08/06/20 19:15 56 14 30 08/06/20 19:00 55 14 141/76 (97) 100 08/06/20 18:00 57 12 133/68 (89) 100 08/06/20 17:00 68 12 120/57 (78) 100 08/06/20 16:35 57 15 100 Mechanical Ventilator 30 08/06/20 16:00 30 08/06/20 16:00 Mechanical Ventilator Mechanical Ventilator Mechanical Ventilator 08/06/20 16:00 98.4 57 12 105/60 (75) 100 08/06/20 16:00 57 08/06/20 15:12 55 14 30 08/06/20 15:00 55 11 123/60 (81) 100 08/06/20 14:00 60 11 128/56 (80) 100 08/06/20 13:00 56 12 123/62 (82) 100 08/06/20 12:00 30 08/06/20 12:00 54 08/06/20 12:00 Mechanical Ventilator Mechanical Ventilator Mechanical Ventilator 08/06/20 12:00 98.3 54 13 150/81 (104) 100 Intake and Output 08/06/20 08/07/20 19:00 07:00 Intake Total 1062.5 ml 1520 ml Output Total 1270 ml 1650 ml Balance -207.5 ml -130 ml Free Water 60 ml 90 ml IV Total 282.5 ml 710 ml Tube Feeding 720 ml 720 ml Output Urine Total 1270 ml 1650 ml # Bowel Movements 3 Laboratory Tests Test 08/06/20 12:07 08/07/20 00:06 08/07/20 03:00 08/07/20 04:59 POC Whole Blood Glucose 104 MG/DL (74-106) 146 MG/DL (74-106) H Pending White Blood Count 6.7 K/UL (4.8-10.8) Red Blood Count 3.37 M/UL (4.70-6.10) L Hemoglobin 10.5 G/DL (14.2-18.0) L Hematocrit 31.9 % (42.0-52.0) L Mean Corpuscular Volume 95 FL (80-99) Mean Corpuscular Hemoglobin 31.2 PG (27.0-31.0) H Mean Corpuscular Hemoglobin Concent 32.9 G/DL (32.0-36.0) Red Cell Distribution Width 18.6 % (11.6-14.8) H Platelet Count 318 K/UL (150-450) Mean Platelet Volume 7.0 FL (6.5-10.1) Neutrophils (%) (Auto) 82.1 % (45.0-75.0) H Lymphocytes (%) (Auto) 15.1 % (20.0-45.0) L Monocytes (%) (Auto) 2.6 % (1.0-10.0) Eosinophils (%) (Auto) 0.0 % (0.0-3.0) Basophils (%) (Auto) 0.2 % (0.0-2.0) Sodium Level 136 MMOL/L (136-145) Potassium Level 4.6 MMOL/L (3.5-5.1) Chloride Level 104 MMOL/L (98-107) Carbon Dioxide Level 21 MMOL/L (21-32) Blood Urea Nitrogen 28 mg/dL (7-18) H Creatinine 0.9 MG/DL (0.55-1.30) Estimat Glomerular Filtration Rate > 60 mL/min (>60) Glucose Level 131 MG/DL (74-106) H Calcium Level 8.2 MG/DL (8.5-10.1) L Objective HEAD AND NECK: No JVD. Orally intubated LUNGS: Coarse rhonchi. CARDIOVASCULAR: Irregular S1 and S2 with no gallop. ABDOMEN: Soft. EXTREMITIES: No pitting edema. Klever Matt MD Aug 07, 2020 11:53
--- NOTE | 2020-08-07 12:30 | NUR ---
pt seen by анна aburto am, oders received condition v/s remainesunchanged
--- NOTE | 2020-08-07 12:42 | Infectious Diseases Prog Note ---
Assessment/Plan 79yo M with: Respiratory code 2ry to mucus plug 07/23 Septic Shock- -recurrent Fever, recurrent, low grade;SP Leukocytosis; recurrent; increased Acute hypoxic resp failure, on NRB mask> 4l NC; back on NRB, desaturation 07/09 > intubated 07/17 Pneumonia- >HAP Hx of COVID-19 PNA 05/20/2007/28 CXR: No significant interval change in the radiographic appearance the chest compared to one day prior. 07/25 Resp cx +MRSA, nl resp bobby UCx neg BCx NTD 07/24 COVID PCR neg --07/21 CXR: Bilateral infiltrates in a peribronchovascular distribution are unchanged. Left pleural effusion is unchanged. --07/19 CXR: Persistent bilateral patchy pulmonary opacities, most prominent in the left lower lung. --07/18 ucx neg sp cx MRSA (colonizer at this point) Bcx Neg --07/13 Bcx Neg 07/10 Sp cx MRSA (Vancomycin APOLONIA 1), ESBL E.coli 07/03 BCx NTD UA 15-20 WBC, UCx Neg 07/03 COVID rapid neg; 07/06 rapid COVID PCR + (from prior infection)- not new infection Flu A/B neg CXR: L pna Resp cx MRSA 07/30 Resp cx +ESBL E.coli & PsA 08/01 BCx NTD 08/02 CXR: Small bilateral pleural effusions with moderate vascular c ongestion. Airspace consolidation in the left lower lung field may represent atelectasis however, correlate for infiltrate. This is improving when compared to the prior study. 08/03 BCx NTD 08/03 CXR: Increasing right basilar opacity, likely infiltrate, may also reflect increasing pleural fluid H/o COVID pna Tested positive 05/20/2007/03 Rapid Ag neg 07/06 Rapid Ag positive (from prior disease?) 07/24 COVID PCR neg MELANIE on CKD, improving [facility] resident ([facility]) Non-verbal VRE and MRSA colonized Plan: Cont meropenem #5 / 10 given high fever, ESBL E.coli and PsA pna C.dif if ongoing loose stools F/u repeat BCx 08/03 given ongoing fever (1 from periph, 1 from PICC), currently NTD Trend temp curve, WBC OK to d/c COVID airborne precautions, infection was now >2 mo ago, no longer infectious -07/31 SP linezolid #7 -07/27 SP meropenem #14 for ESBL pna -07/21 SP Micafungin #4 -07/17 SP IV Vancomycin #15 -07/13 SP Zosyn # -07/06 SP Cefepime # -07/04 SP Flagyl # Monitor CBC/CMP Monitor resp status Monitor temp curve and hemodynamics D/w RN Thank you for this consult. [facility] will continue to follow. Subjective Allergies: Coded Allergies: No Known Allergies (Unverified , 04/30/12) afebrile in ICU Objective Last 24 Hour Vital Signs Date Time Temp Pulse Resp B/P (MAP) Pulse Ox O2 Delivery O2 Flow Rate FiO2 08/07/20 12:00 Mechanical Ventilator Mechanical Ventilator Mechanical Ventilator 08/07/20 12:00 57 08/07/20 12:00 98.2 55 16 103/59 (74) 100 08/07/20 11:33 30 08/07/20 11:00 57 16 124/63 (83) 99 08/07/20 10:00 59 20 136/69 (91) 99 08/07/20 09:30 30 08/07/20 09:00 55 14 140/77 (98) 100 08/07/20 08:00 30 08/07/20 08:00 58 08/07/20 08:00 97.8 61 13 142/71 (94) 100 08/07/20 08:00 Mechanical Ventilator Mechanical Ventilator Mechanical Ventilator 08/07/20 07:00 59 15 30 08/07/20 07:00 55 14 121/66 (84) 100 08/07/20 06:30 56 12 08/07/20 06:00 58 12 129/66 (87) 99 08/07/20 05:00 59 14 134/65 (88) 99 08/07/20 04:00 30 08/07/20 04:00 Mechanical Ventilator Mechanical Ventilator Mechanical Ventilator 08/07/20 04:00 98.4 59 11 124/70 (88) 100 08/07/20 03:50 60 08/07/20 03:00 62 15 136/71 (92) 100 08/07/20 03:00 73 15 30 08/07/20 02:00 61 12 116/64 (81) 100 08/07/20 01:00 62 15 124/67 (86) 98 08/07/20 00:00 98.3 62 13 128/61 (83) 100 08/07/20 00:00 30 08/07/20 00:00 Mechanical Ventilator Mechanical Ventilator Mechanical Ventilator 08/06/20 23:00 62 13 112/64 (80) 100 08/06/20 22:48 61 12 30 08/06/20 22:00 62 13 121/66 (84) 100 08/06/20 21:00 56 12 131/73 (92) 100 08/06/20 20:21 69 08/06/20 20:00 30 08/06/20 20:00 98.4 57 13 116/71 (86) 100 08/06/20 20:00 Mechanical Ventilator Mechanical Ventilator Mechanical Ventilator 08/06/20 19:15 56 14 30 08/06/20 19:00 55 14 141/76 (97) 100 08/06/20 18:00 57 12 133/68 (89) 100 08/06/20 17:00 68 12 120/57 (78) 100 08/06/20 16:35 57 15 100 Mechanical Ventilator 30 08/06/20 16:00 30 08/06/20 16:00 Mechanical Ventilator Mechanical Ventilator Mechanical Ventilator 08/06/20 16:00 98.4 57 12 105/60 (75) 100 08/06/20 16:00 57 08/06/20 15:12 55 14 30 08/06/20 15:00 55 11 123/60 (81) 100 08/06/20 14:00 60 11 128/56 (80) 100 08/06/20 13:00 56 12 123/62 (82) 100 Height (Feet): 5 Height (Inches): 4.00 Weight (Pounds): 130 Laboratory Tests Test 08/07/20 00:06 08/07/20 03:00 08/07/20 04:59 POC Whole Blood Glucose 146 MG/DL (74-106) H Pending White Blood Count 6.7 K/UL (4.8-10.8) Red Blood Count 3.37 M/UL (4.70-6.10) L Hemoglobin 10.5 G/DL (14.2-18.0) L Hematocrit 31.9 % (42.0-52.0) L Mean Corpuscular Volume 95 FL (80-99) Mean Corpuscular Hemoglobin 31.2 PG (27.0-31.0) H Mean Corpuscular Hemoglobin Concent 32.9 G/DL (32.0-36.0) Red Cell Distribution Width 18.6 % (11.6-14.8) H Platelet Count 318 K/UL (150-450) Mean Platelet Volume 7.0 FL (6.5-10.1) Neutrophils (%) (Auto) 82.1 % (45.0-75.0) H Lymphocytes (%) (Auto) 15.1 % (20.0-45.0) L Monocytes (%) (Auto) 2.6 % (1.0-10.0) Eosinophils (%) (Auto) 0.0 % (0.0-3.0) Basophils (%) (Auto) 0.2 % (0.0-2.0) Sodium Level 136 MMOL/L (136-145) Potassium Level 4.6 MMOL/L (3.5-5.1) Chloride Level 104 MMOL/L (98-107) Carbon Dioxide Level 21 MMOL/L (21-32) Blood Urea Nitrogen 28 mg/dL (7-18) H Creatinine 0.9 MG/DL (0.55-1.30) Estimat Glomerular Filtration Rate > 60 mL/min (>60) Glucose Level 131 MG/DL (74-106) H Calcium Level 8.2 MG/DL (8.5-10.1) L Current Medications Medications (Trade) Dose Ordered Sig/Ankush Route PRN Reason Start Time Stop Time Status Last Admin Dose Admin Acetaminophen (Tylenol) 650 mg Q4H PRN GT Temp >100.5 08/01/20 12:30 08/31/20 12:29 08/03/20 10:14 Chlorhexidine Gluconate (Darcy-Hex 2%) 1 applic DAILY@1999 TOPIC 07/17/20 20:00 10/15/20 19:59 08/06/20 20:08 Dexamethasone (Decadron) 6 mg Q24H ORAL 08/02/20 18:00 08/11/20 18:01 08/06/20 19:26 Dextrose (Dextrose 50%) 50 ml Q30M PRN IV Hypoglycemia 07/03/20 22:45 10/01/20 22:44 Heparin Sodium (Porcine) (Heparin 5000 units/ml) 5,000 units EVERY 12 HOURS SUBQ 07/03/20 21:00 08/17/20 20:59 08/07/20 09:00 Insulin Aspart (NovoLOG) EVERY 6 HOURS SUBQ 07/13/20 06:00 10/02/20 06:29 08/07/20 05:09 Meropenem 1 gm/ Sodium Chloride 55 ml @ 110 mls/hr Q8H IVPB 08/01/20 10:00 08/10/20 09:59 08/07/20 10:25 Nitroglycerin (Ntg) 0.4 mg Q5M PRN SL Prn Chest Pain 08/01/20 10:15 08/31/20 10:09 Ondansetron HCl (Zofran) 4 mg Q6H PRN IVP Nausea & Vomiting 08/01/20 14:30 08/31/20 14:29 Pantoprazole (Protonix) 40 mg DAILY IV 07/18/20 09:00 08/17/20 08:59 08/07/20 09:00 Polyethylene Glycol (Miralax) 17 gm DAILYPRN PRN GT Constipation 08/01/20 10:15 08/31/20 10:14 Promethazine HCl/ Codeine (Phenergan with Codeine) 5 ml Q4H PRN GT For Cough 08/01/20 10:14 08/31/20 10:13 08/05/20 22:05 Sodium Chloride 1,000 ml @ 50 mls/hr Q20H IV 07/17/20 16:00 08/16/20 15:59 08/07/20 12:11 Richard Davenport MD Aug 07, 2020 12:42
--- NOTE | 2020-08-07 13:14 | NUR ---
pt, seen by doreen aburto nonew orders
--- NOTE | 2020-08-07 13:41 | Infectious Diseases Prog Note ---
Assessment/Plan 79yo M with: Respiratory code 2ry to mucus plug 07/23 Septic Shock- -recurrent Fever, recurrent, low grade;SP Leukocytosis; recurrent; increased Acute hypoxic resp failure, on NRB mask> 4l NC; back on NRB, desaturation 07/09 > intubated 07/17 Pneumonia- >HAP Hx of COVID-19 PNA 05/20/2007/28 CXR: No significant interval change in the radiographic appearance the chest compared to one day prior. 07/25 Resp cx +MRSA, nl resp bobby UCx neg BCx NTD 07/24 COVID PCR neg --07/21 CXR: Bilateral infiltrates in a peribronchovascular distribution are unchanged. Left pleural effusion is unchanged. --07/19 CXR: Persistent bilateral patchy pulmonary opacities, most prominent in the left lower lung. --07/18 ucx neg sp cx MRSA (colonizer at this point) Bcx Neg --07/13 Bcx Neg 07/10 Sp cx MRSA (Vancomycin APOLONIA 1), ESBL E.coli 07/03 BCx NTD UA - WBC, UCx Neg 07/03 COVID rapid neg; 07/06 rapid COVID PCR + (from prior infection)- not new infection Flu A/B neg CXR: L pna Resp cx MRSA 07/30 Resp cx +ESBL E.coli & PsA 08/01 BCx NTD 08/02 CXR: Small bilateral pleural effusions with moderate vascular c ongestion. Airspace consolidation in the left lower lung field may represent atelectasis however, correlate for infiltrate. This is improving when compared to the prior study. 08/03 BCx NTD 08/03 CXR: Increasing right basilar opacity, likely infiltrate, may also reflect increasing pleural fluid H/o COVID pna Tested positive 05/20/2007/03 Rapid Ag neg 07/06 Rapid Ag positive (from prior disease?) 07/24 COVID PCR neg MELANIE on CKD, improving [facility]) Non-verbal VRE and MRSA colonized Plan: Cont meropenem # 7 / 10 given high fever, ESBL E.coli and PsA pna -07/31 SP linezolid #7 -16 SP meropenem #14 for ESBL pna -07/21 SP Micafungin #4 -07/17 SP IV Vancomycin #15 -07/13 SP Zosyn #4 -07/06 SP Cefepime # -07/04 SP Flagyl # Monitor CBC/CMP Monitor resp status Monitor temp curve and hemodynamics C.dif if ongoing loose stools F/u repeat BCx 08/03 given ongoing fever (1 from periph, 1 from PICC), currently NTD D/w RN Thank you for this consult. [facility] will continue to follow. Subjective Allergies: Coded Allergies: No Known Allergies (Unverified , 04/30/12) no acute event on vent family refusing trach Objective Last 24 Hour Vital Signs Date Time Temp Pulse Resp B/P (MAP) Pulse Ox O2 Delivery O2 Flow Rate FiO2 08/07/20 13:00 57 12 114/66 (82) 99 08/07/20 12:00 Mechanical Ventilator Mechanical Ventilator Mechanical Ventilator 08/07/20 12:00 57 08/07/20 12:00 98.2 55 16 103/59 (74) 100 08/07/20 11:33 30 08/07/20 11:21 100 08/07/20 11:21 58 12 30 08/07/20 11:00 57 16 124/63 (83) 99 08/07/20 10:00 59 20 136/69 (91) 99 08/07/20 09:30 30 08/07/20 09:22 53 14 30 08/07/20 09:00 55 14 140/77 (98) 100 08/07/20 08:00 30 08/07/20 08:00 58 08/07/20 08:00 97.8 61 13 142/71 (94) 100 08/07/20 08:00 Mechanical Ventilator Mechanical Ventilator Mechanical Ventilator 08/07/20 07:00 59 15 30 08/07/20 07:00 55 14 121/66 (84) 100 08/07/20 06:30 56 12 08/07/20 06:00 58 12 129/66 (87) 99 08/07/20 05:00 59 14 134/65 (88) 99 08/07/20 04:00 30 08/07/20 04:00 Mechanical Ventilator Mechanical Ventilator Mechanical Ventilator 08/07/20 04:00 98.4 59 11 124/70 (88) 100 08/07/20 03:50 60 08/07/20 03:00 62 15 136/71 (92) 100 11/27/20 03:00 73 15 30 08/07/20 02:00 61 12 116/64 (81) 100 08/07/20 01:00 62 15 124/67 (86) 98 08/07/20 00:00 98.3 62 13 128/61 (83) 100 08/07/20 00:00 30 08/07/20 00:00 Mechanical Ventilator Mechanical Ventilator Mechanical Ventilator 08/06/20 23:00 62 13 112/64 (80) 100 08/06/20 22:48 61 12 30 08/06/20 22:00 62 13 121/66 (84) 100 08/06/20 21:00 56 12 131/73 (92) 100 08/06/20 20:21 69 08/06/20 20:00 30 08/06/20 20:00 98.4 57 13 116/71 (86) 100 08/06/20 20:00 Mechanical Ventilator Mechanical Ventilator Mechanical Ventilator 08/06/20 19:15 56 14 30 08/06/20 19:00 55 14 141/76 (97) 100 08/06/20 18:00 57 12 133/68 (89) 100 08/06/20 17:00 68 12 120/57 (78) 100 08/06/20 16:35 57 15 100 Mechanical Ventilator 30 08/06/20 16:00 30 08/06/20 16:00 Mechanical Ventilator Mechanical Ventilator Mechanical Ventilator 08/06/20 16:00 98.4 57 12 105/60 (75) 100 08/06/20 16:00 57 08/06/20 15:12 55 14 30 08/06/20 15:00 55 11 123/60 (81) 100 08/06/20 14:00 60 11 128/56 (80) 100 Height (Feet): 5 Height (Inches): 4.00 Weight (Pounds): 130 Respiratory/Chest: no accessory muscle use Cardiovascular: regular rhythm Abdomen: soft, non tender, no organomegaly Laboratory Tests Test 08/07/20 00:06 08/07/20 03:00 08/07/20 04:59 POC Whole Blood Glucose 146 MG/DL (74-106) H Pending White Blood Count 6.7 K/UL (4.8-10.8) Red Blood Count 3.37 M/UL (4.70-6.10) L Hemoglobin 10.5 G/DL (14.2-18.0) L Hematocrit 31.9 % (42.0-52.0) L Mean Corpuscular Volume 95 FL (80-99) Mean Corpuscular Hemoglobin 31.2 PG (27.0-31.0) H Mean Corpuscular Hemoglobin Concent 32.9 G/DL (32.0-36.0) Red Cell Distribution Width 18.6 % (11.6-14.8) H Platelet Count 318 K/UL (150-450) Mean Platelet Volume 7.0 FL (6.5-10.1) Neutrophils (%) (Auto) 82.1 % (45.0-75.0) H Lymphocytes (%) (Auto) 15.1 % (20.0-45.0) L Monocytes (%) (Auto) 2.6 % (1.0-10.0) Eosinophils (%) (Auto) 0.0 % (0.0-3.0) Basophils (%) (Auto) 0.2 % (0.0-2.0) Sodium Level 136 MMOL/L (136-145) Potassium Level 4.6 MMOL/L (3.5-5.1) Chloride Level 104 MMOL/L (98-107) Carbon Dioxide Level 21 MMOL/L (21-32) Blood Urea Nitrogen 28 mg/dL (7-18) H Creatinine 0.9 MG/DL (0.55-1.30) Estimat Glomerular Filtration Rate > 60 mL/min (>60) Glucose Level 131 MG/DL (74-106) H Calcium Level 8.2 MG/DL (8.5-10.1) L Current Medications Medications (Trade) Dose Ordered Sig/Ankush Route PRN Reason Start Time Stop Time Status Last Admin Dose Admin Acetaminophen (Tylenol) 650 mg Q4H PRN GT Temp >100.5 08/01/20 12:30 08/31/20 12:29 08/03/20 10:14 Chlorhexidine Gluconate (Darcy-Hex 2%) 1 applic DAILY@1999 TOPIC 07/17/20 20:00 10/15/20 19:59 08/06/20 20:08 Dexamethasone (Decadron) 6 mg Q24H ORAL 08/02/20 18:00 08/11/20 18:01 08/06/20 19:26 Dextrose (Dextrose 50%) 50 ml Q30M PRN IV Hypoglycemia 07/03/20 22:45 10/01/20 22:44 Heparin Sodium (Porcine) (Heparin 5000 units/ml) 5,000 units EVERY 12 HOURS SUBQ 07/03/20 21:00 08/17/20 20:59 08/07/20 09:00 Insulin Aspart (NovoLOG) EVERY 6 HOURS SUBQ 07/13/20 06:00 10/02/20 06:29 08/07/20 05:09 Meropenem 1 gm/ Sodium Chloride 55 ml @ 110 mls/hr Q8H IVPB 08/01/20 10:00 08/10/20 09:59 08/07/20 10:25 Nitroglycerin (Ntg) 0.4 mg Q5M PRN SL Prn Chest Pain 08/01/20 10:15 08/31/20 10:09 Ondansetron HCl (Zofran) 4 mg Q6H PRN IVP Nausea & Vomiting 08/01/20 14:30 08/31/20 14:29 Pantoprazole (Protonix) 40 mg DAILY IV 07/18/20 09:00 08/17/20 08:59 08/07/20 09:00 Polyethylene Glycol (Miralax) 17 gm DAILYPRN PRN GT Constipation 08/01/20 10:15 08/31/20 10:14 Promethazine HCl/ Codeine (Phenergan with Codeine) 5 ml Q4H PRN GT For Cough 08/01/20 10:14 08/31/20 10:13 08/05/20 22:05 Sodium Chloride 1,000 ml @ 50 mls/hr Q20H IV 07/17/20 16:00 08/16/20 15:59 08/07/20 12:11 Richard Davenport MD Aug 07, 2020 13:41
--- NOTE | 2020-08-07 14:27 | Internal Med Progress Note ---
Subjective Date of Service: Aug 07, 2020 Physician Name YaneliDano Attending Physician Ahsan Hodges MD Current Medications Medications (Trade) Dose Ordered Sig/Ankush Route PRN Reason Start Time Stop Time Status Last Admin Dose Admin Acetaminophen (Tylenol) 650 mg Q4H PRN GT Temp >100.5 08/01/20 12:30 08/31/20 12:29 08/03/20 10:14 Chlorhexidine Gluconate (Darcy-Hex 2%) 1 applic DAILY@2000 TOPIC 07/17/20 20:00 10/15/20 19:59 08/06/20 20:08 Dexamethasone (Decadron) 6 mg Q24H ORAL 08/02/20 18:00 08/11/20 18:01 08/06/20 19:26 Dextrose (Dextrose 50%) 50 ml Q30M PRN IV Hypoglycemia 07/03/20 22:45 10/01/20 22:44 Heparin Sodium (Porcine) (Heparin 5000 units/ml) 5,000 units EVERY 12 HOURS SUBQ 07/03/20 21:00 08/17/20 20:59 08/07/20 09:00 Insulin Aspart (NovoLOG) EVERY 6 HOURS SUBQ 07/13/20 06:00 10/02/20 06:29 08/07/20 05:09 Meropenem 1 gm/ Sodium Chloride 55 ml @ 110 mls/hr Q8H IVPB 08/01/20 10:00 08/10/20 09:59 08/07/20 10:25 Nitroglycerin (Ntg) 0.4 mg Q5M PRN SL Prn Chest Pain 08/01/20 10:15 08/31/20 10:09 Ondansetron HCl (Zofran) 4 mg Q6H PRN IVP Nausea & Vomiting 08/01/20 14:30 08/31/20 14:29 Pantoprazole (Protonix) 40 mg DAILY IV 07/18/20 09:00 08/17/20 08:59 08/07/20 09:00 Polyethylene Glycol (Miralax) 17 gm DAILYPRN PRN GT Constipation 08/01/20 10:15 08/31/20 10:14 Promethazine HCl/ Codeine (Phenergan with Codeine) 5 ml Q4H PRN GT For Cough 08/01/20 10:14 08/31/20 10:13 08/05/20 22:05 Sodium Chloride 1,000 ml @ 50 mls/hr Q20H IV 07/17/20 16:00 08/16/20 15:59 08/07/20 12:11 Allergies: Coded Allergies: No Known Allergies (Unverified , 04/30/12) ROS Limited/Unobtainable: Yes Subjective 79 YO M admitted with shortness of breath. Now pneumonia; previously COVID positive. Cover for Int laina-Dr Hodges. ICU. Intubated and sedated. Objective Last Vital Signs Date Time Temp Pulse Resp B/P (MAP) Pulse Ox O2 Delivery O2 Flow Rate FiO2 08/07/20 14:00 58 12 141/81 (101) 100 08/07/20 12:00 Mechanical Ventilator Mechanical Ventilator Mechanical Ventilator 08/07/20 12:00 98.2 08/07/20 11:33 30 Laboratory Tests Test 08/07/20 00:06 08/07/20 03:00 08/07/20 04:59 POC Whole Blood Glucose 146 MG/DL (74-106) H Pending White Blood Count 6.7 K/UL (4.8-10.8) Red Blood Count 3.37 M/UL (4.70-6.10) L Hemoglobin 10.5 G/DL (14.2-18.0) L Hematocrit 31.9 % (42.0-52.0) L Mean Corpuscular Volume 95 FL (80-99) Mean Corpuscular Hemoglobin 31.2 PG (27.0-31.0) H Mean Corpuscular Hemoglobin Concent 32.9 G/DL (32.0-36.0) Red Cell Distribution Width 18.6 % (11.6-14.8) H Platelet Count 318 K/UL (150-450) Mean Platelet Volume 7.0 FL (6.5-10.1) Neutrophils (%) (Auto) 82.1 % (45.0-75.0) H Lymphocytes (%) (Auto) 15.1 % (20.0-45.0) L Monocytes (%) (Auto) 2.6 % (1.0-10.0) Eosinophils (%) (Auto) 0.0 % (0.0-3.0) Basophils (%) (Auto) 0.2 % (0.0-2.0) Sodium Level 136 MMOL/L (136-145) Potassium Level 4.6 MMOL/L (3.5-5.1) Chloride Level 104 MMOL/L (98-107) Carbon Dioxide Level 21 MMOL/L (21-32) Blood Urea Nitrogen 28 mg/dL (7-18) H Creatinine 0.9 MG/DL (0.55-1.30) Estimat Glomerular Filtration Rate > 60 mL/min (>60) Glucose Level 131 MG/DL (74-106) H Calcium Level 8.2 MG/DL (8.5-10.1) L Intake and Output 08/06/20 08/07/20 19:00 07:00 Intake Total 1062.5 ml 1520 ml Output Total 1270 ml 1650 ml Balance -207.5 ml -130 ml Free Water 60 ml 90 ml IV Total 282.5 ml 710 ml Tube Feeding 720 ml 720 ml Output Urine Total 1270 ml 1650 ml # Bowel Movements 3 Objective PHYSICAL EXAMINATION: GENERAL: The patient awake with deep stimuli, open his eyes, however, cannot follow commands. The patient is on a Ventimask at this time, chronically ill-appearing. HEAD AND NECK: Pupils are equal and reactive to light. Anicteric. NECK: Supple. No JVD. LUNGS: Mech vent; wheezing, rhonchi, and decreased air in bases. HEART: S1, S2. Regular rhythm. Distant heart sounds. No murmur or gallop. ABDOMEN: Soft, nondistended, nontender. Positive bowel sounds. EXTREMITIES: No cyanosis, clubbing, or edema. NEUROLOGIC: Very limited secondary to the patient's status, cannot follow commands. Opens his eyes with deep stimuli and moving extremities spontaneously. Assessment/Plan Assessment/Plan ASSESSMENT: 1. Acute hypoxemic respiratory failure, most likely secondary to pneumonia and sepsis. 2. Sepsis secondary to urinary tract infection and pneumonia. 3. pneumonia=MRSA; ESBL E. coli 4. Acute kidney injury on chronic renal insufficiency. 5. Dehydration. 6. History of chronic congestive heart failure. 7. Diabetes type 2. 8. Dyslipidemia. 9. Hypertension. 10. Alzheimer's disease. 11. COVID 19 previous positive PLAN: 1. ICU 2. Dr. Carreno,=Pulmonary Critical Care; follow mech vent recs 3. Dr. Cho = Inf Dis. 4. IV= D5W due to the hypernatremia and dehydration. 5. antibiotics = meropenem; S/P micafungin and zyvox 6. Code status is full code. 7. DVT prophylaxis is heparin subcutaneous. Dano Groves MD Aug 07, 2020 14:27
--- NOTE | 2020-08-07 16:41 | NUR ---
PT,SEEN BY CHRIS MARIA ODERS V/S CONDITION STABLE NO ACUTE DISTRESS NOTED HOBUP OPENS EYES WITH GOOD DIRECT CONTACT
--- NOTE | 2020-08-07 17:19 | NUR ---
CASE MANAGEMENT:REVIEW SI;RESPIRATORY FAILURE. SEPSIS. PNA. 98.4 55 12 141/81 99% ETT/MECH VENT AC 12 TV 600 PEEP 0 FIO2 30% BUN 28 CA 8.2 IS;DECADRON GT Q24 MEROPENEM IV Q8 PROTONIX IV QD IVF NS @ 50 ML/HR HEPARIN SUBQ Q12 ICU STATUS DCP;FROM [facility]
[2020-08-07] MEDS: Dyna-Hex 2% Top Sol 2oz TOPIC SCH (20:25)
--- NOTE | 2020-08-07 21:00 | NUR ---
NURSE NOTES: Pt provided with a CHG bed bath, oral care and linen change. Bedside assessment performed, assessed pt for pain with a FLACC score of 0 noted. Respiratory status remains stable. Pt repositioned for comfort and safety. ROM exercises performed per pt tolerance. RT present at bedside performing patient care. Fall, Aspiration and Skin precautions observed. Pt remains resting in bed; Bed remains in the lowest position with the safety wheels engaged, call light within reach, side rails up x3 and bed alarm activated. Will continue plan of care. Will continue to monitor.
--- NOTE | 2020-08-07 23:00 | NUR ---
NURSE NOTES: Bedside assessment performed, assessed pt for pain with a FLACC score of 0 noted. VS obtained and remain stable at this time. Respiratory status remains stable. Bilateral soft wrist restraints remain in place for pt safety. Pt noted to attempt to pull medical devices and remains confused and unable to cooperate with plan of care. Diversional activities not noted to be successful at this time, will continue to attempt. ROM exercises performed per pt safety, CMS remains intact. Fall, Aspiration and Skin precautions observed. Pt remains resting in bed; Bed remains in the lowest position with the safety wheels engaged, call light within reach, side rails up x3 and bed alarm activated. Will continue plan of care. Will continue to monitor.
[2020-08-08] VITALS (24 sets, daily range): BP systolic 93–167; BP diastolic 56–98
--- NOTE | 2020-08-08 01:00 | NUR ---
NURSE NOTES: Scheduled NovoLog held due to BG of 122mg/dL noted and therefore out of parameter ranges for sliding scale. Pt continues to tolerate feeding well and shows no s/sx of hyperglycemia. Bedside assessment performed, assessed pt for pain with a FLACC score of 0 noted. VS obtained and remain stable at this time. Respiratory status remains stable. Pt noted to be agitated and combative at this time. Bilateral soft wrist restraints remain in place for pt safety. Diversional activities not successful at this time. Fall, Aspiration and Skin precautions observed. Pt remains resting in bed; Bed remains in the lowest position with the safety wheels engaged, call light within reach, side rails up x3 and bed alarm activated. Will continue plan of care. Will continue to monitor.
[2020-08-08] MEDS: Meropenem 1 GM in NS 55 ML IVPB SCH ×3 (01:15→17:28)
--- NOTE | 2020-08-08 03:00 | NUR ---
NURSE NOTES: Bedside assessment performed, assessed pt for pain with a FLACC score of 0 noted. VS obtained and remain stable at this time. No s/sx of cardiopulmonary distress noted at this time. Fall, Aspiration and Skin precautions observed. Pt remains resting in bed; Bed remains in the lowest position with the safety wheels engaged, call light within reach, side rails up x3 and bed alarm activated. Will continue plan of care. Will continue to monitor.
--- NOTE | 2020-08-08 05:00 | NUR ---
NURSE NOTES: Scheduled NovoLog held due to BG of 125mg/dL noted and therefore out of parameter ranges for sliding scale. Pt continues to tolerate feeding well and shows no s/sx of hyperglycemia. Bedside assessment performed, assessed pt for pain with a FLACC score of 0 noted. VS obtained and remain stable at this time and no s/sx fo cardiopulmonary distress noted at this time. Fall, Aspiration and Skin precautions observed. Pt remains resting in bed; Bed remains in the lowest position with the safety wheels engaged, call light within reach, side rails up x3 and bed alarm activated. Will continue plan of care. Will continue to monitor.
[2020-08-08] MEDS: NovoLOG Insulin Flexpen SUBQ SCH ×4 (05:09→23:25)
[2020-08-08 07:19] LABS: BASOPHILS % (AUTO) 1.8 % (0.0-2.0); EOSINOPHILS % (AUTO) 0.6 % (0.0-3.0); HEMATOCRIT 32.4 % (42.0-52.0); HEMOGLOBIN 11.1 G/DL (14.2-18.0); LYMPHOCYTES % (AUTO) 16.9 % (20.0-45.0); MEAN CORPUSCULAR VOLUME 91 FL (80-99); MONOCYTES % (AUTO) 6.8 % (1.0-10.0); NEUTROPHILS % (AUTO) 73.9 % (45.0-75.0); PLATELET COUNT 399 K/UL (150-450); RED BLOOD COUNT 3.56 M/UL (4.70-6.10); WHITE BLOOD COUNT 11.2 K/UL (4.8-10.8)
--- NOTE | 2020-08-08 07:33 | NUR ---
NURSE NOTES: LATE ENTRY: RECEIVED REPORT FROM FLORES NUÑEZ. PT IN BED, FLAT EFFECT. OPENS EYES. PUPILS 3MM SLUGGISH. SR ON THE MONITOR. VS STABLE, AFEBRILE. INTUBATED ETT 7.5, 25CM AT THE LIP. VENT SETTINGS: AC 12, VT 600, PEEP 0, FI02 30%. MINIMAL THICK SECRETIONS. BILATERAL DIMINISHED. LT NGT. TUBE FEEDING GLUCERNA 1.2, AT 60ML/HR. ABDOMEN SOFT, ROUND. NO BM AT THIS TIME. TIERNEY IN PLACE, DRAINING PALE URINE . ON P 200 MATTRESS. SOFT WRIST RESTRAINTS IN PLACE. SIDE RAILSX3. BED LOCKED AND IN LOW POSITION. CONTACT ISOLATION IN PLACE. WILL CONTINUE TO MONITOR PT.
--- NOTE | 2020-08-08 07:36 | NUR ---
NURSE HAND-OFF REPORT: Latest Vital Signs: Temperature 97.4 , Pulse 70 , B/P 119 /72 , Respiratory Rate 12 , O2 SAT 99 , Mechanical Ventilator, O2 Flow Rate . Vital Sign Comment: EKG Rhythm: Sinus Rhythm Rhythm change?: N Notified?: Grecia Matt MD Response: Latest Gonzalez Fall Score: 50 Fall Risk: High Risk Safety Measures: Call light Within Reach, Bed Alarm Zone 2, Side Rails Side Rails x3, Bed position Low and Locked. Fall Precautions: Door Sign Report given to FLORES Leggett.
[2020-08-08 07:58] LABS: ALANINE AMINOTRANSFERASE 70 U/L (12-78); ALBUMIN 1.9 G/DL (3.4-5.0); ALBUMIN/GLOBULIN RATIO 0.4 (1.0-2.7); ALKALINE PHOSPHATASE 222 U/L (46-116); ANION GAP 8 mmol/L (5-15); ASPARTATE AMINO TRANSFERASE 34 U/L (15-37); BILIRUBIN,TOTAL 0.3 MG/DL (0.2-1.0); BLOOD UREA NITROGEN 24 mg/dL (7-18); CALCIUM 8.1 MG/DL (8.5-10.1); CARBON DIOXIDE 26 MMOL/L (21-32); CHLORIDE 106 MMOL/L (98-107); CREATININE 0.8 MG/DL (0.55-1.30); PHOSPHORUS 3.6 MG/DL (2.5-4.9); POTASSIUM 4.3 MMOL/L (3.5-5.1); SODIUM 139 MMOL/L (136-145)
[2020-08-08] MEDS: Pantoprazole Inj IV SCH (09:23)
[2020-08-08] MEDS: Heparin 5000 units/ml inj SUBQ SCH ×2 (09:25→20:40)
--- NOTE | 2020-08-08 09:30 | NUR ---
NURSE NOTES: LATE ENTRY: CONSTABLE HERE TO SEE PT. WAS INFORMED OF WBC INCREASE 11.2, A FEBRILE. SECRETIONS MINIMAL. WILL WEAN TODAY. NO NEW ORDERS AT THIS TIME.
--- NOTE | 2020-08-08 09:34 | Infectious Diseases Prog Note ---
Assessment/Plan 79yo M with: Respiratory code 2ry to mucus plug 07/23 Septic Shock- -recurrent Fever, recurrent, low grade;SP Leukocytosis; recurrent; increased Acute hypoxic resp failure, on NRB mask> 4l NC; back on NRB, desaturation 07/09 > intubated 07/17 Pneumonia- >HAP Hx of COVID-19 PNA 05/20/2007/28 CXR: No significant interval change in the radiographic appearance the chest compared to one day prior. 07/25 Resp cx +MRSA, nl resp bobby UCx neg BCx NTD 07/24 COVID PCR neg --07/21 CXR: Bilateral infiltrates in a peribronchovascular distribution are unchanged. Left pleural effusion is unchanged. --07/19 CXR: Persistent bilateral patchy pulmonary opacities, most prominent in the left lower lung. --07/18 ucx neg sp cx MRSA (colonizer at this point) Bcx Neg --07/13 Bcx Neg 07/10 Sp cx MRSA (Vancomycin APOLONIA 1), ESBL E.coli 07/03 BCx NTD UA - WBC, UCx Neg 07/03 COVID rapid neg; 07/06 rapid COVID PCR + (from prior infection)- not new infection Flu A/B neg CXR: L pna Resp cx MRSA 07/30 Resp cx +ESBL E.coli & PsA 08/01 BCx NTD 08/02 CXR: Small bilateral pleural effusions with moderate vascular c ongestion. Airspace consolidation in the left lower lung field may represent atelectasis however, correlate for infiltrate. This is improving when compared to the prior study. 08/03 BCx NTD 08/03 CXR: Increasing right basilar opacity, likely infiltrate, may also reflect increasing pleural fluid H/o COVID pna Tested positive 05/20/2007/03 Rapid Ag neg 07/06 Rapid Ag positive (from prior disease?) 07/24 COVID PCR neg MELANIE on CKD, improving [facility] ([facility]) Non-verbal VRE and MRSA colonized Plan: Cont meropenem # 8 / 10 given high fever, ESBL E.coli and PsA pna -07/31 SP linezolid #7 -16 SP meropenem #14 for ESBL pna -07/21 SP Micafungin #4 -07/17 SP IV Vancomycin #15 -07/13 SP Zosyn #4 -07/06 SP Cefepime # -07/04 SP Flagyl # Monitor CBC/CMP Monitor resp status Monitor temp curve and hemodynamics C.dif if ongoing loose stools F/u repeat BCx 08/03 given ongoing fever (1 from periph, 1 from PICC), currently NTD D/w RN Thank you for this consult. [facility] will continue to follow. Subjective Allergies: Coded Allergies: No Known Allergies (Unverified , 04/30/12) Afebrile WBCs 11 on steroid On Vent 30% O2 Objective Last 24 Hour Vital Signs Date Time Temp Pulse Resp B/P (MAP) Pulse Ox O2 Delivery O2 Flow Rate FiO2 08/08/20 07:22 70 12 30 08/08/20 07:00 79 13 119/72 (88) 99 08/08/20 06:30 74 12 08/08/20 06:00 78 15 143/71 (95) 99 08/08/20 05:00 80 16 112/74 (87) 98 08/08/20 04:00 30 08/08/20 04:00 Mechanical Ventilator Mechanical Ventilator Mechanical Ventilator 08/08/20 04:00 97.4 89 16 147/82 (103) 98 08/08/20 03:35 60 08/08/20 03:14 89 16 30 08/08/20 03:00 77 25 137/80 (99) 99 08/08/20 02:00 78 23 139/91 (107) 99 08/08/20 01:00 86 22 139/73 (95) 98 08/08/20 00:00 Mechanical Ventilator Mechanical Ventilator Mechanical Ventilator 08/08/20 00:00 97.6 72 16 130/67 (88) 98 08/08/20 00:00 30 08/07/20 23:17 60 08/07/20 23:00 66 16 146/85 (105) 99 08/07/20 22:58 66 13 30 08/07/20 22:00 62 18 123/66 (85) 99 08/07/20 21:00 64 16 141/73 (95) 100 08/07/20 20:00 Mechanical Ventilator Mechanical Ventilator Mechanical Ventilator 08/07/20 20:00 97.3 60 11 130/76 (94) 100 08/07/20 20:00 30 08/07/20 19:47 60 08/07/20 19:08 58 12 30 08/07/20 19:00 61 13 120/62 (81) 99 08/07/20 18:01 60 12 124/68 (86) 98 08/07/20 17:00 58 12 128/70 (89) 99 08/07/20 16:00 97.2 59 12 138/86 (103) 100 08/07/20 16:00 59 08/07/20 16:00 30 08/07/20 16:00 Mechanical Ventilator Mechanical Ventilator Mechanical Ventilator 08/07/20 15:08 69 16 30 08/07/20 15:00 59 12 124/67 (86) 99 08/07/20 14:00 58 12 141/81 (101) 100 08/07/20 13:00 57 12 114/66 (82) 99 08/07/20 12:00 Mechanical Ventilator Mechanical Ventilator Mechanical Ventilator 08/07/20 12:00 57 08/07/20 12:00 98.2 55 16 103/59 (74) 100 08/07/20 11:33 30 08/07/20 11:21 100 08/07/20 11:21 58 12 30 08/07/20 11:00 57 16 124/63 (83) 99 08/07/20 10:00 59 20 136/69 (91) 99 Height (Feet): 5 Height (Inches): 4.00 Weight (Pounds): 130 Gen: NAD on Vent HEENT: NCAT, No scleral icterus Chest: Equal rise and fall B/L, RRR Abd: Soft, ND \ Laboratory Tests Test 08/08/20 06:20 08/08/20 06:30 Sodium Level 139 MMOL/L (136-145) Potassium Level 4.3 MMOL/L (3.5-5.1) Chloride Level 106 MMOL/L (98-107) Carbon Dioxide Level 26 MMOL/L (21-32) Anion Gap 8 mmol/L (5-15) Blood Urea Nitrogen 24 mg/dL (7-18) H Creatinine 0.8 MG/DL (0.55-1.30) Estimat Glomerular Filtration Rate > 60 mL/min (>60) Glucose Level 126 MG/DL (74-106) H Calcium Level 8.1 MG/DL (8.5-10.1) L Phosphorus Level 3.6 MG/DL (2.5-4.9) Magnesium Level 2.4 MG/DL (1.8-2.4) Total Bilirubin 0.3 MG/DL (0.2-1.0) Aspartate Amino Transf (AST/SGOT) 34 U/L (15-37) Alanine Aminotransferase (ALT/SGPT) 70 U/L (12-78) Alkaline Phosphatase 222 U/L (46-116) H C-Reactive Protein, Quantitative 0.9 mg/dL (0.00-0.90) Total Protein 6.8 G/DL (6.4-8.2) Albumin 1.9 G/DL (3.4-5.0) L Globulin 4.9 g/dL Albumin/Globulin Ratio 0.4 (1.0-2.7) L White Blood Count 11.2 K/UL (4.8-10.8) #H Red Blood Count 3.56 M/UL (4.70-6.10) L Hemoglobin 11.1 G/DL (14.2-18.0) L Hematocrit 32.4 % (42.0-52.0) L Mean Corpuscular Volume 91 FL (80-99) Mean Corpuscular Hemoglobin 31.1 PG (27.0-31.0) H Mean Corpuscular Hemoglobin Concent 34.1 G/DL (32.0-36.0) Red Cell Distribution Width 18.0 % (11.6-14.8) H Platelet Count 399 K/UL (150-450) Mean Platelet Volume 8.0 FL (6.5-10.1) Neutrophils (%) (Auto) 73.9 % (45.0-75.0) Lymphocytes (%) (Auto) 16.9 % (20.0-45.0) L Monocytes (%) (Auto) 6.8 % (1.0-10.0) Eosinophils (%) (Auto) 0.6 % (0.0-3.0) Basophils (%) (Auto) 1.8 % (0.0-2.0) Erythrocyte Sedimentation Rate Pending Current Medications Medications (Trade) Dose Ordered Sig/Ankush Route PRN Reason Start Time Stop Time Status Last Admin Dose Admin Acetaminophen (Tylenol) 650 mg Q4H PRN GT Temp >100.5 08/01/20 12:30 08/31/20 12:29 08/03/20 10:14 Chlorhexidine Gluconate (Darcy-Hex 2%) 1 applic DAILY@2000 TOPIC 07/17/20 20:00 10/15/20 19:59 08/07/20 20:25 Dexamethasone (Decadron) 6 mg Q24H ORAL 08/02/20 18:00 08/11/20 18:01 08/07/20 17:59 Dextrose (Dextrose 50%) 50 ml Q30M PRN IV Hypoglycemia 07/03/20 22:45 10/01/20 22:44 Heparin Sodium (Porcine) (Heparin 5000 units/ml) 5,000 units EVERY 12 HOURS SUBQ 07/03/20 21:00 08/17/20 20:59 08/08/20 09:25 Insulin Aspart (NovoLOG) EVERY 6 HOURS SUBQ 07/13/20 06:00 10/02/20 06:29 08/07/20 05:09 Meropenem 1 gm/ Sodium Chloride 55 ml @ 110 mls/hr Q8H IVPB 08/01/20 10:00 08/10/20 09:59 08/08/20 09:24 Nitroglycerin (Ntg) 0.4 mg Q5M PRN SL Prn Chest Pain 08/01/20 10:15 08/31/20 10:09 Ondansetron HCl (Zofran) 4 mg Q6H PRN IVP Nausea & Vomiting 08/01/20 14:30 08/31/20 14:29 Pantoprazole (Protonix) 40 mg DAILY IV 07/18/20 09:00 08/17/20 08:59 08/08/20 09:23 Polyethylene Glycol (Miralax) 17 gm DAILYPRN PRN GT Constipation 08/01/20 10:15 08/31/20 10:14 Promethazine HCl/ Codeine (Phenergan with Codeine) 5 ml Q4H PRN GT For Cough 08/01/20 10:14 08/31/20 10:13 08/05/20 22:05 Sodium Chloride 1,000 ml @ 50 mls/hr Q20H IV 07/17/20 16:00 08/16/20 15:59 08/08/20 05:52 Aaron Price MD Aug 08, 2020 09:34
--- NOTE | 2020-08-08 10:59 | Diagnostic Imaging Report ---
EXAM: XR Chest, 1 View CLINICAL HISTORY: F/U TECHNIQUE: Frontal view of the chest. COMPARISON: Chest x-ray 08/05/20 FINDINGS: Lungs: Left lung base opacities have slightly improved. Mild interstitial thickening. Atelectasis in the right lower lung. Pleural space: Tiny left pleural effusion is improved from prior study. Maybe a tiny right pleural effusion. No pneumothorax. Heart: Unremarkable. No cardiomegaly. Mediastinum: Unremarkable. Bones/joints: Total right shoulder prosthesis. Tubes, lines and devices: Endotracheal tube and NG tube are stable. IMPRESSION: 1. Tiny residual left pleural effusion is improved from prior study. Maybe a tiny right pleural effusion. 2. Left lung base opacities have slightly improved. Mild interstitial thickening. Atelectasis in the right lower lung.
--- NOTE | 2020-08-08 12:29 | NUR ---
RESPIRATORY NOTE: Patient placed on SBT (CPAP 0, PS 8). Patient went apneic and was unable to tolerate the weaning. RN Betsey corona. Will continue to monitor.
--- NOTE | 2020-08-08 12:30 | NUR ---
NURSE NOTES: LATE ENTRY: PT NOT TOLERATING WEANING. WILL TRY AGAIN TOMORROW. PT STABLE AT THIS TIME.
--- NOTE | 2020-08-08 14:32 | NUR ---
NURSE NOTES: MD. ABRAHAM HERE TO SEE PT. NO NEW ORDERS AT THIS TIME. Addendum: 08/08/20 at 1433 by Betsey Griffith RN NURSE NOTES: WRONG PT.
--- NOTE | 2020-08-08 15:15 | Internal Med Progress Note ---
Subjective Date of Service: Aug 08, 2020 Physician Name YaneliDano Attending Physician Ahsan Hodges MD Current Medications Medications (Trade) Dose Ordered Sig/Ankush Route PRN Reason Start Time Stop Time Status Last Admin Dose Admin Acetaminophen (Tylenol) 650 mg Q4H PRN GT Temp >100.5 08/01/20 12:30 08/31/20 12:29 08/03/20 10:14 Chlorhexidine Gluconate (Darcy-Hex 2%) 1 applic DAILY@2000 TOPIC 07/17/20 20:00 10/15/20 19:59 08/07/20 20:25 Dexamethasone (Decadron) 6 mg Q24H ORAL 08/02/20 18:00 08/11/20 18:01 08/07/20 17:59 Dextrose (Dextrose 50%) 50 ml Q30M PRN IV Hypoglycemia 07/03/20 22:45 10/01/20 22:44 Heparin Sodium (Porcine) (Heparin 5000 units/ml) 5,000 units EVERY 12 HOURS SUBQ 07/03/20 21:00 08/17/20 20:59 08/08/20 09:25 Insulin Aspart (NovoLOG) EVERY 6 HOURS SUBQ 07/13/20 06:00 10/02/20 06:29 08/07/20 05:09 Meropenem 1 gm/ Sodium Chloride 55 ml @ 110 mls/hr Q8H IVPB 08/01/20 10:00 08/10/20 09:59 08/08/20 09:24 Nitroglycerin (Ntg) 0.4 mg Q5M PRN SL Prn Chest Pain 08/01/20 10:15 08/31/20 10:09 Ondansetron HCl (Zofran) 4 mg Q6H PRN IVP Nausea & Vomiting 08/01/20 14:30 08/31/20 14:29 Pantoprazole (Protonix) 40 mg DAILY IV 07/18/20 09:00 08/17/20 08:59 08/08/20 09:23 Polyethylene Glycol (Miralax) 17 gm DAILYPRN PRN GT Constipation 08/01/20 10:15 08/31/20 10:14 Promethazine HCl/ Codeine (Phenergan with Codeine) 5 ml Q4H PRN GT For Cough 08/01/20 10:14 08/31/20 10:13 08/05/20 22:05 Sodium Chloride 1,000 ml @ 50 mls/hr Q20H IV 07/17/20 16:00 08/16/20 15:59 08/08/20 05:52 Allergies: Coded Allergies: No Known Allergies (Unverified , 04/30/12) ROS Limited/Unobtainable: Yes Subjective 79 YO M admitted with shortness of breath. Now pneumonia; previously COVID positive. Cover for Int laina-Dr Hodges. ICU. Intubated and sedated. Objective Last Vital Signs Date Time Temp Pulse Resp B/P (MAP) Pulse Ox O2 Delivery O2 Flow Rate FiO2 08/08/20 14:00 66 12 112/69 (83) 99 08/08/20 12:14 30 08/08/20 12:00 Mechanical Ventilator Mechanical Ventilator Mechanical Ventilator 08/08/20 12:00 98.3 Laboratory Tests Test 08/08/20 06:20 08/08/20 06:30 Sodium Level 139 MMOL/L (136-145) Potassium Level 4.3 MMOL/L (3.5-5.1) Chloride Level 106 MMOL/L (98-107) Carbon Dioxide Level 26 MMOL/L (21-32) Anion Gap 8 mmol/L (5-15) Blood Urea Nitrogen 24 mg/dL (7-18) H Creatinine 0.8 MG/DL (0.55-1.30) Estimat Glomerular Filtration Rate > 60 mL/min (>60) Glucose Level 126 MG/DL (74-106) H Calcium Level 8.1 MG/DL (8.5-10.1) L Phosphorus Level 3.6 MG/DL (2.5-4.9) Magnesium Level 2.4 MG/DL (1.8-2.4) Total Bilirubin 0.3 MG/DL (0.2-1.0) Aspartate Amino Transf (AST/SGOT) 34 U/L (15-37) Alanine Aminotransferase (ALT/SGPT) 70 U/L (12-78) Alkaline Phosphatase 222 U/L (46-116) H C-Reactive Protein, Quantitative 0.9 mg/dL (0.00-0.90) Total Protein 6.8 G/DL (6.4-8.2) Albumin 1.9 G/DL (3.4-5.0) L Globulin 4.9 g/dL Albumin/Globulin Ratio 0.4 (1.0-2.7) L White Blood Count 11.2 K/UL (4.8-10.8) #H Red Blood Count 3.56 M/UL (4.70-6.10) L Hemoglobin 11.1 G/DL (14.2-18.0) L Hematocrit 32.4 % (42.0-52.0) L Mean Corpuscular Volume 91 FL (80-99) Mean Corpuscular Hemoglobin 31.1 PG (27.0-31.0) H Mean Corpuscular Hemoglobin Concent 34.1 G/DL (32.0-36.0) Red Cell Distribution Width 18.0 % (11.6-14.8) H Platelet Count 399 K/UL (150-450) Mean Platelet Volume 8.0 FL (6.5-10.1) Neutrophils (%) (Auto) 73.9 % (45.0-75.0) Lymphocytes (%) (Auto) 16.9 % (20.0-45.0) L Monocytes (%) (Auto) 6.8 % (1.0-10.0) Eosinophils (%) (Auto) 0.6 % (0.0-3.0) Basophils (%) (Auto) 1.8 % (0.0-2.0) Erythrocyte Sedimentation Rate 77 MM/HR (0-20) H Intake and Output 08/07/20 08/08/20 19:00 07:00 Intake Total 1375 ml 1434.167 ml Output Total 1570 ml 1500 ml Balance -195 ml -65.833 ml Free Water 50 ml 60 ml IV Total 605 ml 654.167 ml Tube Feeding 720 ml 720 ml Output Urine Total 1570 ml 1500 ml # Bowel Movements 2 Objective PHYSICAL EXAMINATION: GENERAL: The patient awake with deep stimuli, open his eyes, however, cannot follow commands. The patient is on a Ventimask at this time, chronically ill-appearing. HEAD AND NECK: Pupils are equal and reactive to light. Anicteric. NECK: Supple. No JVD. LUNGS: Mech vent; wheezing, rhonchi, and decreased air in bases. HEART: S1, S2. Regular rhythm. Distant heart sounds. No murmur or gallop. ABDOMEN: Soft, nondistended, nontender. Positive bowel sounds. EXTREMITIES: No cyanosis, clubbing, or edema. NEUROLOGIC: Very limited secondary to the patient's status, cannot follow commands. Opens his eyes with deep stimuli and moving extremities spontaneously. Assessment/Plan Assessment/Plan ASSESSMENT: 1. Acute hypoxemic respiratory failure, most likely secondary to pneumonia and sepsis. 2. Sepsis secondary to urinary tract infection and pneumonia. 3. pneumonia=MRSA; ESBL E. coli 4. Acute kidney injury on chronic renal insufficiency. 5. Dehydration. 6. History of chronic congestive heart failure. 7. Diabetes type 2. 8. Dyslipidemia. 9. Hypertension. 10. Alzheimer's disease. 11. COVID 19 previous positive PLAN: 1. ICU 2. Dr. Carreno,=Pulmonary Critical Care; follow [facility] recs 3. Dr. Cho = Inf Dis. 4. IV= D5W due to the hypernatremia and dehydration. 5. antibiotics = meropenem; S/P micafungin and zyvox 6. Code status is full code. 7. DVT prophylaxis is heparin subcutaneous. Dano Groves MD Aug 08, 2020 15:15
--- NOTE | 2020-08-08 15:30 | Cardiac Electrophysiology PN ---
Assessment/Plan Assessment/Plan 1. Accelerated junctional rhythm. Ruled out for MN Echo showed ejection fraction of 55%. 2. Long run of 31 beats of Nonsustained VT on 07/14/2020. Cardiac cath after stabilization. 3. Aníbal 30, Asystole while on the Vent due to resp failure/ likely mucus plug . S/P Code Off midodrine 4. Respiratory failure, on antibiotic and intubated on the vent Failed weaning. Family refused tracheostomy. On 30% Fio2 5. Septic shock. Off Levophed 6. History of previous COVID infection in May 2020 and active Covid in isolation Now negative again and off isolation. 7. Dementia. DW RN and Dr hernandez Subjective Subjective In ICU on the Venton Fio2 30%, PEEP 5. Off isolation Had 31 beats of VT on 07/14/20 and 5 beats 07/19/20 Coded on 07/23/20 as sat dropped to 20% and got aníbal 30s and PEA and pulseless Off Levophed Covid test was negative. Failed weaning Family still refusing tracheostomy. Objective Last 24 Hour Vital Signs Date Time Temp Pulse Resp B/P (MAP) Pulse Ox O2 Delivery O2 Flow Rate FiO2 08/08/20 15:13 64 12 30 08/08/20 15:00 61 15 104/60 (75) 100 08/08/20 14:00 66 12 112/69 (83) 99 08/08/20 13:00 69 20 95/59 (71) 99 08/08/20 12:29 100 08/08/20 12:14 70 12 30 08/08/20 12:00 Mechanical Ventilator Mechanical Ventilator Mechanical Ventilator 08/08/20 12:00 71 08/08/20 12:00 78 12 95/62 (73) 99 08/08/20 12:00 98.3 78 12 95/62 (73) 99 08/08/20 12:00 30 08/08/20 11:00 68 15 118/67 (84) 99 08/08/20 10:00 76 18 144/89 (107) 98 08/08/20 09:00 88 21 167/98 (121) 98 08/08/20 08:00 74 08/08/20 08:00 97.8 72 15 124/67 (86) 100 08/08/20 08:00 30 08/08/20 08:00 Mechanical Ventilator Mechanical Ventilator Mechanical Ventilator 08/08/20 07:22 70 12 30 08/08/20 07:00 79 13 119/72 (88) 99 08/08/20 06:30 74 12 08/08/20 06:00 78 15 143/71 (95) 99 08/08/20 05:00 80 16 112/74 (87) 98 08/08/20 04:00 30 08/08/20 04:00 Mechanical Ventilator Mechanical Ventilator Mechanical Ventilator 08/08/20 04:00 97.4 89 16 147/82 (103) 98 08/08/20 03:35 60 08/08/20 03:14 89 16 30 08/08/20 03:00 77 25 137/80 (99) 99 08/08/20 02:00 78 23 139/91 (107) 99 08/08/20 01:00 86 22 139/73 (95) 98 08/08/20 00:00 Mechanical Ventilator Mechanical Ventilator Mechanical Ventilator 08/08/20 00:00 97.6 72 16 130/67 (88) 98 08/08/20 00:00 30 08/07/20 23:17 60 08/07/20 23:00 66 16 146/85 (105) 99 08/07/20 22:58 66 13 30 08/07/20 22:00 62 18 123/66 (85) 99 08/07/20 21:00 64 16 141/73 (95) 100 08/07/20 20:00 Mechanical Ventilator Mechanical Ventilator Mechanical Ventilator 08/07/20 20:00 97.3 60 11 130/76 (94) 100 08/07/20 20:00 30 08/07/20 19:47 60 08/07/20 19:08 58 12 30 08/07/20 19:00 61 13 120/62 (81) 99 08/07/20 18:01 60 12 124/68 (86) 98 08/07/20 17:00 58 12 128/70 (89) 99 08/07/20 16:00 97.2 59 12 138/86 (103) 100 08/07/20 16:00 59 08/07/20 16:00 30 08/07/20 16:00 Mechanical Ventilator Mechanical Ventilator Mechanical Ventilator Intake and Output 08/07/20 08/08/20 19:00 07:00 Intake Total 1375 ml 1434.167 ml Output Total 1570 ml 1500 ml Balance -195 ml -65.833 ml Free Water 50 ml 60 ml IV Total 605 ml 654.167 ml Tube Feeding 720 ml 720 ml Output Urine Total 1570 ml 1500 ml # Bowel Movements 2 Laboratory Tests Test 08/08/20 06:20 08/08/20 06:30 Sodium Level 139 MMOL/L (136-145) Potassium Level 4.3 MMOL/L (3.5-5.1) Chloride Level 106 MMOL/L (98-107) Carbon Dioxide Level 26 MMOL/L (21-32) Anion Gap 8 mmol/L (5-15) Blood Urea Nitrogen 24 mg/dL (7-18) H Creatinine 0.8 MG/DL (0.55-1.30) Estimat Glomerular Filtration Rate > 60 mL/min (>60) Glucose Level 126 MG/DL (74-106) H Calcium Level 8.1 MG/DL (8.5-10.1) L Phosphorus Level 3.6 MG/DL (2.5-4.9) Magnesium Level 2.4 MG/DL (1.8-2.4) Total Bilirubin 0.3 MG/DL (0.2-1.0) Aspartate Amino Transf (AST/SGOT) 34 U/L (15-37) Alanine Aminotransferase (ALT/SGPT) 70 U/L (12-78) Alkaline Phosphatase 222 U/L (46-116) H C-Reactive Protein, Quantitative 0.9 mg/dL (0.00-0.90) Total Protein 6.8 G/DL (6.4-8.2) Albumin 1.9 G/DL (3.4-5.0) L Globulin 4.9 g/dL Albumin/Globulin Ratio 0.4 (1.0-2.7) L White Blood Count 11.2 K/UL (4.8-10.8) #H Red Blood Count 3.56 M/UL (4.70-6.10) L Hemoglobin 11.1 G/DL (14.2-18.0) L Hematocrit 32.4 % (42.0-52.0) L Mean Corpuscular Volume 91 FL (80-99) Mean Corpuscular Hemoglobin 31.1 PG (27.0-31.0) H Mean Corpuscular Hemoglobin Concent 34.1 G/DL (32.0-36.0) Red Cell Distribution Width 18.0 % (11.6-14.8) H Platelet Count 399 K/UL (150-450) Mean Platelet Volume 8.0 FL (6.5-10.1) Neutrophils (%) (Auto) 73.9 % (45.0-75.0) Lymphocytes (%) (Auto) 16.9 % (20.0-45.0) L Monocytes (%) (Auto) 6.8 % (1.0-10.0) Eosinophils (%) (Auto) 0.6 % (0.0-3.0) Basophils (%) (Auto) 1.8 % (0.0-2.0) Erythrocyte Sedimentation Rate 77 MM/HR (0-20) H Objective HEAD AND NECK: No JVD. Orally intubated LUNGS: Coarse rhonchi. CARDIOVASCULAR: Irregular S1 and S2 with no gallop. ABDOMEN: Soft. EXTREMITIES: No pitting edema. Klever Matt MD Aug 08, 2020 15:29
--- NOTE | 2020-08-08 16:00 | NUR ---
NURSE NOTES: LATE ENTRY: PT IN BED, FLAT EFFECT. OPENS EYES. PUPILS 3MM SLUGGISH. VSS, AFEBRILE. INTUBATED ETT 7.5, 25CM AT THE LIP. VENT SETTINGS: AC 12, VT 600, PEEP 0, FI02 30%. MODERATE THICK SECRETIONS, THICK, CREAMY COLOR. LT NGT.TUBE FEEDING GLUCERNA 1.2, AT 60ML/HR. NO RESIDUALS, TOLERATING TUBE FEEDINGS. ABDOMEN SOFT, ROUND. NO BM AT THIS TIME. TIERNEY IN PLACE, DRAINING PALE URINE. SOFT WRIST RESTRAINTS IN PLACE. PASSIVE ROM, CIRCULATION CHECK. SIDE RAILSX3. BED LOCKED AND IN LOW POSITION. CONTACT ISOLATION IN PLACE. WILL CONTINUE TO IMPLEMENT PLAN OF CARE.
--- NOTE | 2020-08-08 16:04 | Nephrology Progress Note ---
Assessment/Plan Problem List: (1) Dehydration (2) MELANIE (acute kidney injury) (3) Renal failure (ARF), acute on chronic (4) Hypoxia (5) Acute encephalopathy (6) Electrolyte imbalance Assessment 79-year-old male is admitted with acute hypoxic respiratory failure most likely secondary to pneumonia and sepsis, UTI. Acute on chronic renal failure Dehydration Electrolyte imbalances, hypernatremia Hypoalbuminemia Diabetes type 2 History of congestive heart failure Hypertension Hyperlipemia Alzheimer's Previous COVID-19 infection in May 2020 Plan August 08: Remains in ICU. Status unchanged. Labs and medication list reviewed. Remains full code. Weaning continues to fail. August 07: Remains in ICU. Remains intubated. Remains full code. Continues to be on weaning trials. Renal parameters are stable. August 06: Patient remains in ICU. Full code. Intubated. Fails weaning. Labs reviewed. Stable from renal standpoint of view. Discussed with RN. August 05: Labs reviewed. Discussed with RN. Abnormal electrolyte addressed. Remains intubated on ventilator. Continue per consultants. August 04: Labs reviewed. Discussed with RN. Stable from renal standpoint of view. Main issue is weaning from ventilator that keeps failing. Continue per consultants. August 03: Labs reviewed. Discussed with RN. Stable from renal standpoint of view. Continue per consultants. August 02: Patient seen and discussed with RN. Labs reviewed. Remains intubated. Trial of weaning this being attempted. Continue per consultants. August 01: Remains intubated. Labs reviewed. Renal parameters stable. Continue per consultants. July 31: Remains on mechanical ventilation. Labs reviewed. Abnormal electrolytes addressed. Stable from renal standpoint of view. July 30: Remains intubated. Remains full code. Labs reviewed. Low phosphorus replaced. Continue to monitor renal parameters. Continue per consultants. July 29: Failed weaning. Remains intubated. Remains full closed. Labs reviewed. Stable from renal standpoint view. July 28: Remains in ICU. Remains full code. Labs are reviewed. Phosphorus supplement given. Continue per consultants. July 27: Remains in ICU. Full code. Labs reviewed. Remains intubated. Stable renal parameters. July 26: In ICU. Full code. Discussed with RN. Stable renal parameters. July 25: Seen in ICU. Discussed with FLORES Holliday. Flomax discontinued. Labs reviewed. Stable from renal standpoint of view. July 24: Seen in ICU. Discussed with FLORES Holliday. Remains on pressor. El ectrolyte abnormalities noted and addressed. Continue per consultants. Patient remains full code. July 23: Seen in ICU. Discussed with FLORES Barrera. Blood pressure remains a little requiring pressors. Labs reviewed. Stable renal parameters. Continue per consultants. July 22: Remains intubated. Full code. Blood pressure borderline low. Will increase midodrine dose. Discussed with RN. Continue to monitor renal parameters and electrolytes. July 21: Intubated. Full code. Labs reviewed. Stable from renal standpoint of view. Continue per consultants. July 20: Remains intubated. Full code. Labs reviewed. Electrolytes within normal limit. Continue per consultants. July 19: In ICU. Remains intubated on ventilator. Remains full code. Low potassium addressed. Blood pressure fluctuating. Continue per consultants. July 18: Patient in ICU. Intubated on ventilator. On 6 mics of Levophed. Will give 100 cc albumin 25%. K-Phos IV ordered. Continue per consultants. Continue monitor renal parameters and electrolytes. July 17: Status unchanged. Transfer to [facility] for seizure. Stable from renal standpoint to view. Continue per consultants. July 16: Status quo. Labs reviewed. Renal parameters stable. Continue per consultants. July 15: On nonrebreather mask. Labs reviewed. Renal parameters stable.Continue per completion engineer. Clinically unchanged. July 14: On nonrebreather mask. Inflammatory markers gradually declining. Renal parameters stable. Continue per pulmonary. July 13: Remains on nonrebreather mask. Inflammatory markers remain elevated. Renal parameters somewhat stable. Continue per pulmonary and ID. Remains full code. July 12: Patient on nonrebreather mask. Labs noted. Serum creatinine down to 1.3. Continue per consultants. July 11: Patient on nonrebreather mask. Transfer to telemetry when seen this morning. Labs noted. Continue per consultants. Serum creatinine erin to 1.7. Continue to monitor renal parameters. Continue to monitor vancomycin level July 10: Patient is not doing well clinically. Mild respiratory distress. ABG noted. Somewhat hypoxic. CBC and chemistry panel ordered. Discussed with FLORES Cho. Will defer to pulmonary management to specialist. Continue per ID. Renal parameters remained stable as of July 09. July 09: Labs reviewed. Renal parameters stable. Continue per consultants. July 08: Labs reviewed. Potassium via NG tube ordered. IV fluids stopped. Continue per consultants. July 07: Labs reviewed. Low potassium and low phosphorus replaced. Continue per consultants. Remains stable from renal standpoint of view. July 06: Patient remains n.p.o. IV fluid down to 50 cc an hour. Potassium supplement intravenously ordered. Continue per consultants. Previously: Patient is n.p.o., will continue on IV fluid of D5W 75 cc an hour We will monitor electrolytes and renal parameters Avoid nephrotoxic's Start p.o. when he clears by speech therapist, meanwhile aspiration precautions Keep the blood pressure and blood sugar in check Per orders Subjective ROS Limited/Unobtainable: Yes Objective Objective Last 24 Hour Vital Signs Date Time Temp Pulse Resp B/P (MAP) Pulse Ox O2 Delivery O2 Flow Rate FiO2 08/08/20 15:13 64 12 30 08/08/20 15:00 61 15 104/60 (75) 100 08/08/20 14:00 66 12 112/69 (83) 99 08/08/20 13:00 69 20 95/59 (71) 99 08/08/20 12:29 100 08/08/20 12:14 70 12 30 08/08/20 12:00 Mechanical Ventilator Mechanical Ventilator Mechanical Ventilator 08/08/20 12:00 71 08/08/20 12:00 78 12 95/62 (73) 99 08/08/20 12:00 98.3 78 12 95/62 (73) 99 08/08/20 12:00 30 08/08/20 11:00 68 15 118/67 (84) 99 08/08/20 10:00 76 18 144/89 (107) 98 08/08/20 09:00 88 21 167/98 (121) 98 08/08/20 08:00 74 08/08/20 08:00 97.8 72 15 124/67 (86) 100 08/08/20 08:00 30 08/08/20 08:00 Mechanical Ventilator Mechanical Ventilator Mechanical Ventilator 08/08/20 07:22 70 12 30 08/08/20 07:00 79 13 119/72 (88) 99 08/08/20 06:30 74 12 08/08/20 06:00 78 15 143/71 (95) 99 08/08/20 05:00 80 16 112/74 (87) 98 08/08/20 04:00 30 08/08/20 04:00 Mechanical Ventilator Mechanical Ventilator Mechanical Ventilator 08/08/20 04:00 97.4 89 16 147/82 (103) 98 08/08/20 03:35 60 08/08/20 03:14 89 16 30 08/08/20 03:00 77 25 137/80 (99) 99 08/08/20 02:00 78 23 139/91 (107) 99 08/08/20 01:00 86 22 139/73 (95) 98 08/08/20 00:00 Mechanical Ventilator Mechanical Ventilator Mechanical Ventilator 08/08/20 00:00 97.6 72 16 130/67 (88) 98 08/08/20 00:00 30 08/07/20 23:17 60 08/07/20 23:00 66 16 146/85 (105) 99 08/07/20 22:58 66 13 30 08/07/20 22:00 62 18 123/66 (85) 99 08/07/20 21:00 64 16 141/73 (95) 100 08/07/20 20:00 Mechanical Ventilator Mechanical Ventilator Mechanical Ventilator 08/07/20 20:00 97.3 60 11 130/76 (94) 100 08/07/20 20:00 30 08/07/20 19:47 60 08/07/20 19:08 58 12 30 08/07/20 19:00 61 13 120/62 (81) 99 08/07/20 18:01 60 12 124/68 (86) 98 08/07/20 17:00 58 12 128/70 (89) 99 Intake and Output 08/07/20 08/08/20 19:00 07:00 Intake Total 1375 ml 1434.167 ml Output Total 1570 ml 1500 ml Balance -195 ml -65.833 ml Free Water 50 ml 60 ml IV Total 605 ml 654.167 ml Tube Feeding 720 ml 720 ml Output Urine Total 1570 ml 1500 ml # Bowel Movements 2 Current Medications Medications (Trade) Dose Ordered Sig/Ankush Route PRN Reason Start Time Stop Time Status Last Admin Dose Admin Acetaminophen (Tylenol) 650 mg Q4H PRN GT Temp >100.5 08/01/20 12:30 08/31/20 12:29 08/03/20 10:14 Chlorhexidine Gluconate (Darcy-Hex 2%) 1 applic DAILY@1999 TOPIC 07/17/20 20:00 10/15/20 19:59 08/07/20 20:25 Dexamethasone (Decadron) 6 mg Q24H ORAL 08/02/20 18:00 08/11/20 18:01 08/07/20 17:59 Dextrose (Dextrose 50%) 50 ml Q30M PRN IV Hypoglycemia 07/03/20 22:45 10/01/20 22:44 Heparin Sodium (Porcine) (Heparin 5000 units/ml) 5,000 units EVERY 12 HOURS SUBQ 07/03/20 21:00 08/17/20 20:59 08/08/20 09:25 Insulin Aspart (NovoLOG) EVERY 6 HOURS SUBQ 07/13/20 06:00 10/02/20 06:29 08/07/20 05:09 Meropenem 1 gm/ Sodium Chloride 55 ml @ 110 mls/hr Q8H IVPB 08/01/20 10:00 08/10/20 09:59 08/08/20 09:24 Nitroglycerin (Ntg) 0.4 mg Q5M PRN SL Prn Chest Pain 08/01/20 10:15 08/31/20 10:09 Ondansetron HCl (Zofran) 4 mg Q6H PRN IVP Nausea & Vomiting 08/01/20 14:30 08/31/20 14:29 Pantoprazole (Protonix) 40 mg DAILY IV 07/18/20 09:00 08/17/20 08:59 08/08/20 09:23 Polyethylene Glycol (Miralax) 17 gm DAILYPRN PRN GT Constipation 08/01/20 10:15 08/31/20 10:14 Promethazine HCl/ Codeine (Phenergan with Codeine) 5 ml Q4H PRN GT For Cough 08/01/20 10:14 08/31/20 10:13 08/05/20 22:05 Sodium Chloride 1,000 ml @ 50 mls/hr Q20H IV 07/17/20 16:00 08/16/20 15:59 08/08/20 05:52 Laboratory Tests 08/08/20 06:20: Sodium Level 139, Potassium Level 4.3, Chloride Level 106, Carbon Dioxide Level 26, Anion Gap 8, Blood Urea Nitrogen 24H, Creatinine 0.8, Estimat Glomerular Filtration Rate > 60, Glucose Level 126H, Calcium Level 8.1L, Phosphorus Level 3.6, Magnesium Level 2.4, Total Bilirubin 0.3, Aspartate Amino Transf (AST/SGOT) 34, Alanine Aminotransferase (ALT/SGPT) 70, Alkaline Phosphatase 222H, C-Reactive Protein, Quantitative 0.9, Total Protein 6.8, Albumin 1.9L, Globulin 4.9, Albumin/Globulin Ratio 0.4L 08/08/20 06:30: White Blood Count 11.2#H, Red Blood Count 3.56L, Hemoglobin 11.1L, Hematocrit 32.4L, Mean Corpuscular Volume 91, Mean Corpuscular Hemoglobin 31.1H, Mean Corpuscular Hemoglobin Concent 34.1, Red Cell Distribution Width 18.0H, Platelet Count 399, Mean Platelet Volume 8.0, Neutrophils (%) (Auto) 73.9, Lymphocytes (%) (Auto) 16.9L, Monocytes (%) (Auto) 6.8, Eosinophils (%) (Auto) 0.6, Basophils (%) (Auto) 1.8, Erythrocyte Sedimentation Rate 77H Height (Feet): 5 Height (Inches): 4.00 Weight (Pounds): 130 General Appearance: no apparent distress EENT: other - Intubated on ventilator Cardiovascular: normal rate Respiratory/Chest: decreased breath sounds Abdomen: distended Tino Connors MD Aug 08, 2020 16:04
--- NOTE | 2020-08-08 18:52 | Pulmonolgy Critical Care Note ---
Critical Care - Asmt/Plan Problems: (1) Acute respiratory failure (2) Multifocal pneumonia (3) 2019 novel coronavirus disease (COVID-19) (4) Acute encephalopathy (5) Severe sepsis (6) Alzheimer's dementia (7) HTN (hypertension) (8) History of CVA (cerebrovascular accident) (9) BPH (benign prostatic hyperplasia) Assessment/Plan: pt's daughter didn't agree with tracheostomy. She is thinking about DNR Respiratory: adjust tidal volume, monitor respiratory rate, adjust FIO2 Cardiac: continue to monitor HR/BP Renal: F/U I&O, check electrolytes Infectious Disease: check cultures Gastrointestinal: continue feedings/current rate Endocrine: monitor blood sugar Hematologic: transfuse if hgb<8.5 Neurologic: PRN Ativan, keep patient comfortable Affect: PRN ativan Prophylaxis: Heparin Time Spent (Minutes): 40 Critical Care - Objective Last 24 Hour Vital Signs Date Time Temp Pulse Resp B/P (MAP) Pulse Ox O2 Delivery O2 Flow Rate FiO2 08/08/20 18:00 70 14 95/63 (74) 100 08/08/20 17:00 67 13 97/65 (76) 100 08/08/20 16:00 30 08/08/20 16:00 Mechanical Ventilator Mechanical Ventilator Mechanical Ventilator 08/08/20 16:00 65 08/08/20 16:00 98.7 68 15 115/65 (82) 100 08/08/20 15:13 64 12 30 08/08/20 15:00 61 15 104/60 (75) 100 08/08/20 14:00 66 12 112/69 (83) 99 08/08/20 13:00 69 20 95/59 (71) 99 08/08/20 12:29 100 08/08/20 12:14 70 12 30 08/08/20 12:00 Mechanical Ventilator Mechanical Ventilator Mechanical Ventilator 08/08/20 12:00 71 08/08/20 12:00 78 12 95/62 (73) 99 08/08/20 12:00 98.3 78 12 95/62 (73) 99 08/08/20 12:00 30 08/08/20 11:00 68 15 118/67 (84) 99 08/08/20 10:00 76 18 144/89 (107) 98 08/08/20 09:00 88 21 167/98 (121) 98 08/08/20 08:00 74 08/08/20 08:00 97.8 72 15 124/67 (86) 100 08/08/20 08:00 30 08/08/20 08:00 Mechanical Ventilator Mechanical Ventilator Mechanical Ventilator 08/08/20 07:22 70 12 30 08/08/20 07:00 79 13 119/72 (88) 99 08/08/20 06:30 74 12 08/08/20 06:00 78 15 143/71 (95) 99 08/08/20 05:00 80 16 112/74 (87) 98 08/08/20 04:00 30 08/08/20 04:00 Mechanical Ventilator Mechanical Ventilator Mechanical Ventilator 08/08/20 04:00 97.4 89 16 147/82 (103) 98 08/08/20 03:35 60 08/08/20 03:14 89 16 30 08/08/20 03:00 77 25 137/80 (99) 99 08/08/20 02:00 78 23 139/91 (107) 99 08/08/20 01:00 86 22 139/73 (95) 98 08/08/20 00:00 Mechanical Ventilator Mechanical Ventilator Mechanical Ventilator 08/08/20 00:00 97.6 72 16 130/67 (88) 98 08/08/20 00:00 30 08/07/20 23:17 60 08/07/20 23:00 66 16 146/85 (105) 99 08/07/20 22:58 66 13 30 08/07/20 22:00 62 18 123/66 (85) 99 08/07/20 21:00 64 16 141/73 (95) 100 08/07/20 20:00 Mechanical Ventilator Mechanical Ventilator Mechanical Ventilator 08/07/20 20:00 97.3 60 11 130/76 (94) 100 08/07/20 20:00 30 08/07/20 19:47 60 08/07/20 19:08 58 12 30 08/07/20 19:00 61 13 120/62 (81) 99 Status: sedated HEENT: atraumatic, normocephalic Heart: HR/BP stable Abdomen: soft Objective: still large secretions, failed weaning Accucheck: 124 Critical Care - Subjective ROS Limited/Unobtainable: Yes Condition: critical FI02: 30 Vent Support Breath Rate: 12 Vent Support Mode: AC Vent Tidal Volume: 600 Sputum Amount: Moderate PEEP: 0.0 PIP: 26 Tube Feeding Amount: 60 I&O: Intake and Output 08/07/20 08/08/20 19:00 07:00 Intake Total 1375 ml 1434.167 ml Output Total 1570 ml 1500 ml Balance -195 ml -65.833 ml Free Water 50 ml 60 ml IV Total 605 ml 654.167 ml Tube Feeding 720 ml 720 ml Output Urine Total 1570 ml 1500 ml # Bowel Movements 2 CXR: 1. Tiny residual left pleural effusion is improved from prior study. Maybe a tiny right pleural effusion. 2. Left lung base opacities have slightly improved. Mild interstitial thickening. Atelectasis in the right lower lung. ET-Tube: 7.2 ET Position: 25 Labs: Laboratory Tests Test 08/08/20 06:20 08/08/20 06:30 08/08/20 17:40 Sodium Level 139 MMOL/L (136-145) Potassium Level 4.3 MMOL/L (3.5-5.1) Chloride Level 106 MMOL/L (98-107) Carbon Dioxide Level 26 MMOL/L (21-32) Anion Gap 8 mmol/L (5-15) Blood Urea Nitrogen 24 mg/dL (7-18) H Creatinine 0.8 MG/DL (0.55-1.30) Estimat Glomerular Filtration Rate > 60 mL/min (>60) Glucose Level 126 MG/DL (74-106) H Calcium Level 8.1 MG/DL (8.5-10.1) L Phosphorus Level 3.6 MG/DL (2.5-4.9) Magnesium Level 2.4 MG/DL (1.8-2.4) Total Bilirubin 0.3 MG/DL (0.2-1.0) Aspartate Amino Transf (AST/SGOT) 34 U/L (15-37) Alanine Aminotransferase (ALT/SGPT) 70 U/L (12-78) Alkaline Phosphatase 222 U/L (46-116) H C-Reactive Protein, Quantitative 0.9 mg/dL (0.00-0.90) Total Protein 6.8 G/DL (6.4-8.2) Albumin 1.9 G/DL (3.4-5.0) L Globulin 4.9 g/dL Albumin/Globulin Ratio 0.4 (1.0-2.7) L White Blood Count 11.2 K/UL (4.8-10.8) #H Red Blood Count 3.56 M/UL (4.70-6.10) L Hemoglobin 11.1 G/DL (14.2-18.0) L Hematocrit 32.4 % (42.0-52.0) L Mean Corpuscular Volume 91 FL (80-99) Mean Corpuscular Hemoglobin 31.1 PG (27.0-31.0) H Mean Corpuscular Hemoglobin Concent 34.1 G/DL (32.0-36.0) Red Cell Distribution Width 18.0 % (11.6-14.8) H Platelet Count 399 K/UL (150-450) Mean Platelet Volume 8.0 FL (6.5-10.1) Neutrophils (%) (Auto) 73.9 % (45.0-75.0) Lymphocytes (%) (Auto) 16.9 % (20.0-45.0) L Monocytes (%) (Auto) 6.8 % (1.0-10.0) Eosinophils (%) (Auto) 0.6 % (0.0-3.0) Basophils (%) (Auto) 1.8 % (0.0-2.0) Erythrocyte Sedimentation Rate 77 MM/HR (0-20) H POC Whole Blood Glucose 124 MG/DL (74-106) H Kya Carreno MD Aug 08, 2020 18:52
--- NOTE | 2020-08-08 19:28 | NUR ---
NURSE HAND-OFF REPORT: Latest Vital Signs: Temperature 98.7 , Pulse 66 , B/P 102 /58 , Respiratory Rate 12 , O2 SAT 99 , Mechanical Ventilator, O2 Flow Rate . Vital Sign Comment: EKG Rhythm: Sinus Rhythm Rhythm change?: N Notified?: Grecia Matt MD Response: Latest Gonzalez Fall Score: 50 Fall Risk: High Risk Safety Measures: Call light Within Reach, Bed Alarm Zone 2, Side Rails Side Rails x2, Bed position Low and Locked. Fall Precautions: Door Sign Report given to FLORES PRICE.
[2020-08-08] MEDS: Dyna-Hex 2% Top Sol 2oz TOPIC SCH (20:00)
--- NOTE | 2020-08-08 20:00 | NUR ---
NURSE NOTES: Received patient and report from FLORES Leggett. Patient is observed resting in bed and remains obtunded. No pain noted upon assessment. Pt is currently orally intubated ett size 7.5 noted to be 25 @ lip line. Pt appears to be tolerating current vent settings well. Vent settings as follows: AC 12 TV 600 FiO2 30% PEEP 0. Bilateral lower lobe breath sounds noted to be mildly diminished upon auscultation. Pt noted to be SR on tele monitor with a HR of 60. R upper arm PICC line noted which remains asymptomatic, intact and patent. Central line dressing changed per protocol. Central line dressing remains clean, dry and intact. 1/2NS currently infusing at 50 mL/hr as ordered. VS remain stable at this time. Active bowel sounds noted in all four quadrants; abdomen remains round and soft. L nare NG Tube noted which remains intact and secured. Glucerna 1.2 continues to infuse at 60mL/hr, pt tolerating feeding well. Wiley catheter noted draining pale yellow urine to gravity. Diagnostics reviewed at bedside. Skin alterations noted. Fall, Aspiration and Skin precautions observed. Pt remains resting in bed; Bed remains in the lowest position with the safety wheels engaged, call light within reach, side rails up x3 and bed alarm activated. Will continue plan of care. Will continue to monitor.
[2020-08-09] VITALS (24 sets, daily range): BP systolic 91–154; BP diastolic 53–90
--- NOTE | 2020-08-09 | NUR ---
NURSE NOTES: Accucheck noted to be 173, insulin coverage given. Pt continues to tolerate feeding well and shows no s/sx of hyperglycemia. Bedside assessment performed, assessed pt for pain with a FLACC score of 0 noted. VS obtained and remain stable at this time. Respiratory status remains stable. Pt noted to be agitated and combative at this time. Bilateral soft wrist restraints remain in place for pt safety. Diversional activities not successful at this time. Fall, Aspiration and Skin precautions observed. Pt remains resting in bed; Bed remains in the lowest position with the safety wheels engaged, call light within reach, side rails up x3 and bed alarm activated. Will continue plan of care. Will continue to monitor.
[2020-08-09] MEDS: Meropenem 1 GM in NS 55 ML IVPB SCH ×3 (02:08→17:17)
--- NOTE | 2020-08-09 04:00 | NUR ---
NURSE NOTES: Pt provided with a CHG bed bath, blood drawn and taken to lab, care and linen change. Bedside assessment performed, assessed pt for pain with a FLACC score of 0 noted. Respiratory status remains stable. Pt repositioned for comfort and safety. ROM exercises performed per pt tolerance. RT present at bedside performing patient care. Fall, Aspiration and Skin precautions observed. Pt remains resting in bed; Bed remains in the lowest position with the safety wheels engaged, call light within reach, side rails up x3 and bed alarm activated. Will continue plan of care. Will continue to monitor.
[2020-08-09] MEDS: NovoLOG Insulin Flexpen SUBQ SCH ×3 (06:00→17:32)
--- NOTE | 2020-08-09 06:00 | NUR ---
NURSE NOTES: Pt continues to tolerate feeding well and shows no s/sx of hyperglycemia. Bedside assessment performed, assessed pt for pain with a FLACC score of 0 noted. VS obtained and remain stable at this time and no s/sx fo cardiopulmonary distress noted at this time. Fall, Aspiration and Skin precautions observed. Pt remains resting in bed; Bed remains in the lowest position with the safety wheels engaged, call light within reach, side rails up x3 and bed alarm activated. Will continue plan of care. Will continue to monitor.
[2020-08-09 06:56] LABS: BLOOD UREA NITROGEN 25 mg/dL (7-18); CALCIUM 8.5 MG/DL (8.5-10.1); CARBON DIOXIDE 27 MMOL/L (21-32); CHLORIDE 101 MMOL/L (98-107); POTASSIUM 4.9 MMOL/L (3.5-5.1); SODIUM 135 MMOL/L (136-145)
[2020-08-09 06:59] LABS: BASOPHILS % (AUTO) 0.1 % (0.0-2.0); EOSINOPHILS % (AUTO) 0.1 % (0.0-3.0); HEMOGLOBIN 11.2 G/DL (14.2-18.0); LYMPHOCYTES % (AUTO) 16.5 % (20.0-45.0); MEAN CORPUSCULAR VOLUME 92 FL (80-99); MONOCYTES % (AUTO) 3.3 % (1.0-10.0); PLATELET COUNT 421 K/UL (150-450); RED BLOOD COUNT 3.58 M/UL (4.70-6.10); WHITE BLOOD COUNT 8.7 K/UL (4.8-10.8)
--- NOTE | 2020-08-09 07:00 | NUR ---
NURSE NOTES: Pt received from FLORES Villa. Pt observed opening eyes spontaneously; pt grimaces when orally and endotracheally suctioned; gag reflex is hypoactive; pt is unable to follow commands; Bilat pupils equal and round 3mm with brisk rxn to light. Pt is in NSR to gunstock spray unit feeder. Radial and dorsalis pedis pulses 2+. No edema noted. Afebrile. Cap refill 2 sec. Pt is orally intubated with a 7.5 noted 25 cm at the lip with the following settings: AC 12 TV 600 FiO2 30% Peep 0. All lung rogers noted diminished with rhonchi upon auscultation. Left naris NGT noted a at approximately 75 cm. No gastric residuals noted. Glucerna 1.2 is running at 60 cc/hr. Bowel sounds are active to all quadrants. Abdomen appears roud, soft, and non-tender. F/C noted draining yellow, clear urine. Skin alterations noted. Pt has a JACQUIE PICC with dry and intact dressing running 1/2 NS at 50 cc/hr. PLAN MANAGER restraints noted - skin to both wrists intact without redness. Pt observed attempting to pull medical devices when restraints are temporarily removed and reapplied. Bed in lowest position, alarm on, side rails up x 2, call light within reach. Will continue to monitor.
--- NOTE | 2020-08-09 07:30 | NUR ---
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 * Increased kcal and pro needs r/t wound healing as evidenced by sacral pressure injury stage 2. (CURRENT TF: goal of Glucerna 1.2 @ 60ml/hr x24 hrs) ENTERAL NUTRITION RECOMMENDATIONS: Glucerna 1.2 @ 55ml/hr x24 hrs to provide 1320ml, 1584kcal, 79g prot, 1063ml free water - LOWER goal rate to 55ml/hr x 24 hrs s/p intubation w/ decreased kcal needs - HOB over 30 degrees/ H2O flush per MD ADDITIONAL RECOMMENDATIONS: * Calibrated bedscale wt for accurate CBW * Monitor hemodynamic stability: s/p code blue (07/23), now off pressors * Monitor lytes, replete as needed * Wound care: add Sushil BID via PEG add Vit C 250mg QD * Monitor BGs closely w/ Decadron .
--- NOTE | 2020-08-09 08:00 | NUR ---
NURSE NOTES: Pt repositioned. Oral care provided.
[2020-08-09] MEDS: Pantoprazole Inj IV SCH (08:06)
[2020-08-09] MEDS: Heparin 5000 units/ml inj SUBQ SCH ×2 (08:08→21:19)
--- NOTE | 2020-08-09 10:00 | NUR ---
NURSE NOTES: Pt repositioned. no acute distress noted.
--- NOTE | 2020-08-09 10:10 | NUR ---
RESPIRATORY NOTE: Placed on SBT @1008, CPAP: 0 PEEP, 8 PS. RSBI 51, RR 19, Spont Vt 475, Minute ventilation 7.56. RN Peyton aware. No signs of respiratory distress at this time. Will continue to monitor.
--- NOTE | 2020-08-09 10:11 | NUR ---
NURSE NOTES: Placed on SBT per RT with the following settings: CPAP: 0 PEEP, 8 PS. RSBI noted 51, RR 19, Spont Vt 475, Minute ventilation 7.56. No distress noted. Will continue monitoring pt.
--- NOTE | 2020-08-09 12:00 | NUR ---
NURSE NOTES: Pt repositioned. Oral care provided. Continues to tolerates SBT. No distress noted. Will continue to monitor.
--- NOTE | 2020-08-09 12:30 | NUR ---
NURSE NOTES: Dr Connors assessing pt at bedside. Serum sodium level noted (135) - 1/2 NS IVF discontinued per Dr Connors.
--- NOTE | 2020-08-09 12:42 | NUR ---
NURSE NOTES: Pt continues to tolerate weaning trial without distress. ABGs drawn - left message with Dr Wai lechuga/ results. Awaiting call back.
--- NOTE | 2020-08-09 14:19 | NUR ---
NURSE NOTES: Received call back from Dr Carreno with order to extubate pt. RT notified.
--- NOTE | 2020-08-09 14:30 | NUR ---
NURSE NOTES: Pt endotracheally suctioned and positioned up right - successfully extuabted at this time. successfully extubated. VS stable. (RR 17 - NSR - SpO2 100% on 4L NC). No distress noted. NGT and restraints discontinued at this time. Dr Carreno made aware. Will monitor closely.
--- NOTE | 2020-08-09 14:31 | Nephrology Progress Note ---
Assessment/Plan Problem List: (1) Dehydration (2) MELANIE (acute kidney injury) (3) Renal failure (ARF), acute on chronic (4) Hypoxia (5) Acute encephalopathy (6) Electrolyte imbalance Assessment 79-year-old male is admitted with acute hypoxic respiratory failure most likely secondary to pneumonia and sepsis, UTI. Acute on chronic renal failure Dehydration Electrolyte imbalances, hypernatremia Hypoalbuminemia Diabetes type 2 History of congestive heart failure Hypertension Hyperlipemia Alzheimer's Previous COVID-19 infection in May 2020 Plan August 09: Discussed with FLORES Holliday. Weaning in process. It seems like patient is tolerating better. Labs reviewed. Continue per consultants. August 08: Remains in ICU. Status unchanged. Labs and medication list reviewed. Remains full code. Weaning continues to fail. August 07: Remains in ICU. Remains intubated. Remains full code. Continues to be on weaning trials. Renal parameters are stable. August 06: Patient remains in ICU. Full code. Intubated. Fails weaning. Labs reviewed. Stable from renal standpoint of view. Discussed with RN. August 05: Labs reviewed. Discussed with RN. Abnormal electrolyte addressed. Remains intubated on ventilator. Continue per consultants. August 04: Labs reviewed. Discussed with RN. Stable from renal standpoint of view. Main issue is weaning from ventilator that keeps failing. Continue per consultants. August 03: Labs reviewed. Discussed with RN. Stable from renal standpoint of view. Continue per consultants. August 02: Patient seen and discussed with RN. Labs reviewed. Remains intubated. Trial of weaning this being attempted. Continue per consultants. August 01: Remains intubated. Labs reviewed. Renal parameters stable. Continue per consultants. July 31: Remains on mechanical ventilation. Labs reviewed. Abnormal electrolytes addressed. Stable from renal standpoint of view. July 30: Remains intubated. Remains full code. Labs reviewed. Low phosphorus replaced. Continue to monitor renal parameters. Continue per consultants. July 29: Failed weaning. Remains intubated. Remains full closed. Labs reviewed. Stable from renal standpoint view. July 28: Remains in ICU. Remains full code. Labs are reviewed. Phosphorus supplement given. Continue per consultants. July 27: Remains in ICU. Full code. Labs reviewed. Remains intubated. Stable renal parameters. July 26: In ICU. Full code. Discussed with RN. Stable renal parameters. July 25: Seen in ICU. Discussed with RN Miya. Flomax discontinued. Labs reviewed. Stable from renal standpoint of view. July 24: Seen in ICU. Discussed with FLORES Holliday. Remains on pressor. Electrolyte abnormalities noted and addressed. Continue per consultants. Patient remains full code. July 23: Seen in ICU. Discussed with FLORES Barrera. Blood pressure remains a little requiring pressors. Labs reviewed. Stable renal parameters. Continue per consultants. July 22: Remains intubated. Full code. Blood pressure borderline low. Will increase midodrine dose. Discussed with RN. Continue to monitor renal parameters and electrolytes. July 21: Intubated. Full code. Labs reviewed. Stable from renal standpoint of view. Continue per consultants. July 20: Remains intubated. Full code. Labs reviewed. Electrolytes within normal limit. Continue per consultants. July 19: In ICU. Remains intubated on ventilator. Remains full code. Low potassium addressed. Blood pressure fluctuating. Continue per consultants. July 18: Patient in ICU. Intubated on ventilator. On 6 mics of Levophed. Will give 100 cc albumin 25%. K-Phos IV ordered. Continue per consultants. Continue monitor renal parameters and electrolytes. July 17: Status unchanged. Transfer to [facility] for seizure. Stable from renal standpoint to view. Continue per consultants. July 16: Status quo. Labs reviewed. Renal parameters stable. Continue per consultants. July 15: On nonrebreather mask. Labs reviewed. 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 Clinically unchanged. July 14: On nonrebreather mask. Inflammatory markers gradually declining. Renal parameters stable. Continue per pulmonary. July 13: Remains on nonrebreather mask. Inflammatory markers remain elevated. Renal parameters somewhat stable. Continue per pulmonary and ID. Remains full code. July 12: Patient on nonrebreather mask. Labs noted. Serum creatinine down to 1.3. Continue per consultants. July 11: Patient on nonrebreather mask. Transfer to telemetry when seen this morning. Labs noted. Continue per consultants. Serum creatinine erin to 1.7. Continue to monitor renal parameters. Continue to monitor vancomycin level July 10: Patient is not doing well clinically. Mild respiratory distress. ABG noted. Somewhat hypoxic. CBC and chemistry panel ordered. Discussed with FLORES Cho. Will defer to pulmonary management to specialist. Continue per ID. Renal parameters remained stable as of July 09. July 09: Labs reviewed. Renal parameters stable. Continue per consultants. July 08: Labs reviewed. Potassium via NG tube ordered. IV fluids stopped. Continue per consultants. July 07: Labs reviewed. Low potassium and low phosphorus replaced. Continue per consultants. Remains stable from renal standpoint of view. July 06: Patient remains n.p.o. IV fluid down to 50 cc an hour. Potassium supplement intravenously ordered. Continue per consultants. Previously: Patient is n.p.o., will continue on IV fluid of D5W 75 cc an hour We will monitor electrolytes and renal parameters Avoid nephrotoxic's Start p.o. when he clears by speech therapist, meanwhile aspiration precautions Keep the blood pressure and blood sugar in check Per orders Subjective ROS Limited/Unobtainable: Yes Objective Objective Last 24 Hour Vital Signs Date Time Temp Pulse Resp B/P (MAP) Pulse Ox O2 Delivery O2 Flow Rate FiO2 08/09/20 14:00 66 18 124/63 (83) 99 08/09/20 13:00 66 19 111/62 (78) 99 08/09/20 12:00 Mechanical Ventilator 08/09/20 12:00 98.1 66 18 122/65 (84) 99 08/09/20 12:00 30 08/09/20 12:00 68 08/09/20 11:00 61 18 107/53 (71) 99 08/09/20 10:50 85 17 30 08/09/20 10:00 61 12 107/61 (76) 99 08/09/20 09:00 64 13 115/57 (76) 100 08/09/20 08:00 63 08/09/20 08:00 30 08/09/20 08:00 Mechanical Ventilator 08/09/20 08:00 98.4 65 14 108/63 (78) 99 08/09/20 07:52 65 14 30 08/09/20 07:00 68 14 115/62 (79) 100 08/09/20 06:05 70 12 08/09/20 06:00 64 17 102/60 (74) 100 08/09/20 05:00 63 15 104/77 (86) 100 08/09/20 04:00 97.7 66 15 112/90 (97) 100 08/09/20 04:00 Mechanical Ventilator Mechanical Ventilator Mechanical Ventilator 08/09/20 04:00 64 08/09/20 04:00 30 08/09/20 03:30 68 13 30 08/09/20 03:00 68 15 130/77 (94) 98 08/09/20 02:00 70 16 106/59 (75) 99 08/09/20 01:00 70 16 103/57 (72) 99 08/09/20 00:00 97.0 72 18 91/62 (72) 98 08/09/20 00:00 Mechanical Ventilator Mechanical Ventilator Mechanical Ventilator 08/09/20 00:00 30 08/09/20 00:00 71 08/08/20 23:00 70 13 110/60 (77) 98 08/08/20 22:39 69 14 30 08/08/20 22:00 67 12 93/56 (68) 99 08/08/20 21:00 70 16 106/58 (74) 96 08/08/20 20:00 Mechanical Ventilator Mechanical Ventilator Mechanical Ventilator 08/08/20 20:00 66 08/08/20 20:00 30 08/08/20 20:00 98.6 69 15 143/66 (91) 100 08/08/20 19:16 66 12 30 08/08/20 19:00 69 15 102/58 (73) 99 08/08/20 18:00 70 14 95/63 (74) 100 08/08/20 17:00 67 13 97/65 (76) 100 08/08/20 16:00 30 08/08/20 16:00 Mechanical Ventilator Mechanical Ventilator Mechanical Ventilator 08/08/20 16:00 65 08/08/20 16:00 98.7 68 15 115/65 (82) 100 08/08/20 15:13 64 12 30 08/08/20 15:00 61 15 104/60 (75) 100 Intake and Output 08/08/20 08/09/20 19:00 07:00 Intake Total 1460 ml 1405 ml Output Total 1110 ml 1225 ml Balance 350 ml 180 ml Free Water 130 ml IV Total 710 ml 555 ml Tube Feeding 720 ml 720 ml Other 30 ml Output Urine Total 1110 ml 1225 ml Laboratory Tests 08/08/20 17:40: POC Whole Blood Glucose 124H 08/08/20 23:22: POC Whole Blood Glucose [Pending] 08/09/20 05:00: White Blood Count 8.7, Red Blood Count 3.58L, Hemoglobin 11.2L, Hematocrit 33.0L , Mean Corpuscular Volume 92, Mean Corpuscular Hemoglobin 31.3H, Mean Corpuscular Hemoglobin Concent 33.9, Red Cell Distribution Width 19.0H, Platelet Count 421, Mean Platelet Volume 7.2, Neutrophils (%) (Auto) 80.0H, Lymphocytes (%) (Auto) 16.5L, Monocytes (%) (Auto) 3.3, Eosinophils (%) (Auto) 0.1, Basophils (%) (Auto) 0.1, Sodium Level 135L, Potassium Level 4.9, Chloride Level 101, Carbon Dioxide Level 27, Blood Urea Nitrogen 25H, Creatinine 1.0, Estimat Glomerular Filtration Rate > 60, Glucose Level 108H, Calcium Level 8.5 08/09/20 12:24: Arterial Blood pH 7.446, Arterial Blood Partial Pressure CO2 31.1L, Arterial Blood Partial Pressure O2 96.9, Arterial Blood HCO3 20.9L, Arterial Blood Oxygen Saturation 97.2, Arterial Blood Base Excess -2.4L, Richard Test Positive Height (Feet): 5 Height (Inches): 4.00 Weight (Pounds): 130 General Appearance: no apparent distress Cardiovascular: tachycardia Respiratory/Chest: decreased breath sounds Abdomen: distended Tino Connors MD Aug 09, 2020 14:30
--- NOTE | 2020-08-09 14:41 | NUR ---
Pt extubated at approximately 1430 per MD order. FLORES Todd at bedside. Pt on nasal cannula 3LPM, SpO2 99%, HR 73. Pt in no distress at this time will continue to monitor.
--- NOTE | 2020-08-09 15:20 | NUR ---
NURSE NOTES: Pt noted with spO2 in the 80s - pt nasotracheally suctioned per RT and placed on venturi mask FiO2 30%. Addendum: 08/09/20 at 1525 by Peyton Parks RN Amendment: Pt noted with spO2 in the 80s - pt nasotracheally suctioned per RT and placed on venturi mask FiO2 50% 10 L.
--- NOTE | 2020-08-09 16:00 | NUR ---
NURSE NOTES: PICC line discontinued per order. 22g IV started on RH and RW. Pt nasotracheally suctioned again. FiO2 titrated down to 30% at this time. SpO2 100%. No distress noted. Afebrile. Repositioned. Will continue to monitor.
--- NOTE | 2020-08-09 16:17 | Internal Med Progress Note ---
Subjective Date of Service: Aug 09, 2020 Physician Name Dano Groves Attending Physician Ahsan Hodges MD Current Medications Medications (Trade) Dose Ordered Sig/Ankush Route PRN Reason Start Time Stop Time Status Last Admin Dose Admin Acetaminophen (Tylenol) 650 mg Q4H PRN GT Temp >100.5 08/01/20 12:30 08/31/20 12:29 08/03/20 10:14 Chlorhexidine Gluconate (Darcy-Hex 2%) 1 applic DAILY@2000 TOPIC 07/17/20 20:00 10/15/20 19:59 08/08/20 20:00 Dexamethasone (Decadron) 6 mg Q24H ORAL 08/02/20 18:00 08/11/20 18:01 08/08/20 17:28 Dextrose (Dextrose 50%) 50 ml Q30M PRN IV Hypoglycemia 07/03/20 22:45 10/01/20 22:44 Dextrose/Sodium Chloride 1,000 ml @ 50 mls/hr Q20H IV 08/09/20 16:15 09/08/20 16:14 Heparin Sodium (Porcine) (Heparin 5000 units/ml) 5,000 units EVERY 12 HOURS SUBQ 07/03/20 21:00 08/17/20 20:59 08/09/20 08:08 Insulin Aspart (NovoLOG) EVERY 6 HOURS SUBQ 07/13/20 06:00 10/02/20 06:29 08/09/20 11:35 Meropenem 1 gm/ Sodium Chloride 55 ml @ 110 mls/hr Q8H IVPB 08/01/20 10:00 08/10/20 09:59 08/09/20 10:19 Nitroglycerin (Ntg) 0.4 mg Q5M PRN SL Prn Chest Pain 08/01/20 10:15 08/31/20 10:09 Ondansetron HCl (Zofran) 4 mg Q6H PRN IVP Nausea & Vomiting 08/01/20 14:30 08/31/20 14:29 Pantoprazole (Protonix) 40 mg DAILY IV 07/18/20 09:00 08/17/20 08:59 08/09/20 08:06 Polyethylene Glycol (Miralax) 17 gm DAILYPRN PRN GT Constipation 08/01/20 10:15 08/31/20 10:14 Promethazine HCl/ Codeine (Phenergan with Codeine) 5 ml Q4H PRN GT For Cough 08/01/20 10:14 08/31/20 10:13 08/05/20 22:05 Allergies: Coded Allergies: No Known Allergies (Unverified , 04/30/12) ROS Limited/Unobtainable: Yes Subjective 79 YO M admitted with shortness of breath. Now pneumonia; previously COVID positive. Cover for Int med-Dr Hodges. ICU. Intubated and sedated. Objective Last Vital Signs Date Time Temp Pulse Resp B/P (MAP) Pulse Ox O2 Delivery O2 Flow Rate FiO2 08/09/20 15:26 10.0 50 08/09/20 15:19 Venturi Mask 08/09/20 15:00 74 23 133/66 (88) 91 08/09/20 12:00 98.1 Laboratory Tests Test 08/08/20 17:40 08/08/20 23:22 08/09/20 05:00 08/09/20 12:24 POC Whole Blood Glucose 124 MG/DL (74-106) H Pending White Blood Count 8.7 K/UL (4.8-10.8) Red Blood Count 3.58 M/UL (4.70-6.10) L Hemoglobin 11.2 G/DL (14.2-18.0) L Hematocrit 33.0 % (42.0-52.0) L Mean Corpuscular Volume 92 FL (80-99) Mean Corpuscular Hemoglobin 31.3 PG (27.0-31.0) H Mean Corpuscular Hemoglobin Concent 33.9 G/DL (32.0-36.0) Red Cell Distribution Width 19.0 % (11.6-14.8) H Platelet Count 421 K/UL (150-450) Mean Platelet Volume 7.2 FL (6.5-10.1) Neutrophils (%) (Auto) 80.0 % (45.0-75.0) H Lymphocytes (%) (Auto) 16.5 % (20.0-45.0) L Monocytes (%) (Auto) 3.3 % (1.0-10.0) Eosinophils (%) (Auto) 0.1 % (0.0-3.0) Basophils (%) (Auto) 0.1 % (0.0-2.0) Sodium Level 135 MMOL/L (136-145) L Potassium Level 4.9 MMOL/L (3.5-5.1) Chloride Level 101 MMOL/L (98-107) Carbon Dioxide Level 27 MMOL/L (21-32) Blood Urea Nitrogen 25 mg/dL (7-18) H Creatinine 1.0 MG/DL (0.55-1.30) Estimat Glomerular Filtration Rate > 60 mL/min (>60) Glucose Level 108 MG/DL (74-106) H Calcium Level 8.5 MG/DL (8.5-10.1) Arterial Blood pH 7.446 (7.350-7.450) Arterial Blood Partial Pressure CO2 31.1 mmHg (35.0-45.0) L Arterial Blood Partial Pressure O2 96.9 mmHg (75.0-100.0) Arterial Blood HCO3 20.9 mmol/L (22.0-26.0) L Arterial Blood Oxygen Saturation 97.2 % (95-100) Arterial Blood Base Excess -2.4 (-2-2) L Richard Test Positive Intake and Output 08/08/20 08/09/20 19:00 07:00 Intake Total 1460 ml 1405 ml Output Total 1110 ml 1225 ml Balance 350 ml 180 ml Free Water 130 ml IV Total 710 ml 555 ml Tube Feeding 720 ml 720 ml Other 30 ml Output Urine Total 1110 ml 1225 ml Objective PHYSICAL EXAMINATION: GENERAL: The patient awake with deep stimuli, open his eyes, however, cannot follow commands. The patient is on a Ventimask at this time, chronically ill-appearing. HEAD AND NECK: Pupils are equal and reactive to light. Anicteric. NECK: Supple. No JVD. LUNGS: Mech vent; wheezing, rhonchi, and decreased air in bases. HEART: S1, S2. Regular rhythm. Distant heart sounds. No murmur or gallop. ABDOMEN: Soft, nondistended, nontender. Positive bowel sounds. EXTREMITIES: No cyanosis, clubbing, or edema. NEUROLOGIC: Very limited secondary to the patient's status, cannot follow commands. Opens his eyes with deep stimuli and moving extremities spontaneously. Assessment/Plan Assessment/Plan ASSESSMENT: 1. Acute hypoxemic respiratory failure, most likely secondary to pneumonia and sepsis. 2. Sepsis secondary to urinary tract infection and pneumonia. 3. pneumonia=MRSA; ESBL E. coli 4. Acute kidney injury on chronic renal insufficiency. 5. Dehydration. 6. History of chronic congestive heart failure. 7. Diabetes type 2. 8. Dyslipidemia. 9. Hypertension. 10. Alzheimer's disease. 11. COVID 19 previous positive PLAN: 1. ICU 2. Dr. Carreno,=Pulmonary Critical Care; follow [facility] recs 3. Dr. Cho = Inf Dis. 4. IV= D5W due to the hypernatremia and dehydration. 5. antibiotics = meropenem; S/P micafungin and zyvox 6. Code status is full code. 7. DVT prophylaxis is heparin subcutaneous. Dano Groves MD Aug 09, 2020 16:17
--- NOTE | 2020-08-09 16:24 | Cardiac Electrophysiology PN ---
Assessment/Plan Assessment/Plan 1. Accelerated junctional rhythm. Ruled out for [place] Echo showed ejection fraction of 55%. 2. Long run of 31 beats of Nonsustained VT on 07/14/2020. Cardiac cath after stabilization. 3. Jose 30, Asystole while on the Vent due to resp failure/ likely mucus plug . S/P Code Off midodrine 4. Respiratory failure, on antibiotic Extubated today 08/09/20 5. Septic shock. Off Levophed 6. History of previous COVID infection in May 2020 and active Covid in isolation Now negative again and off isolation. 7. Dementia. SHAYY RN and Dr hernandez Subjective Subjective In ICU extubated today Had 31 beats of VT on 07/14/20 and 5 beats 07/19/20 Coded on 07/23/20 as sat dropped to 20% and got jose 30s and PEA and pulseless Off Levophed Objective Last 24 Hour Vital Signs Date Time Temp Pulse Resp B/P (MAP) Pulse Ox O2 Delivery O2 Flow Rate FiO2 08/09/20 15:26 10.0 50 08/09/20 15:19 Venturi Mask 10.0 08/09/20 15:00 74 23 133/66 (88) 91 08/09/20 14:45 Nasal Cannula 3.0 32 08/09/20 14:39 100 08/09/20 14:30 Nasal Cannula 4.0 08/09/20 14:00 66 18 124/63 (83) 99 08/09/20 13:00 66 19 111/62 (78) 99 08/09/20 12:00 Mechanical Ventilator 08/09/20 12:00 98.1 66 18 122/65 (84) 99 08/09/20 12:00 30 08/09/20 12:00 68 08/09/20 11:00 61 18 107/53 (71) 99 08/09/20 10:50 85 17 30 08/09/20 10:00 61 12 107/61 (76) 99 08/09/20 09:00 64 13 115/57 (76) 100 08/09/20 08:00 63 08/09/20 08:00 30 08/09/20 08:00 Mechanical Ventilator 08/09/20 08:00 98.4 65 14 108/63 (78) 99 08/09/20 07:52 65 14 30 08/09/20 07:00 68 14 115/62 (79) 100 08/09/20 06:05 70 12 08/09/20 06:00 64 17 102/60 (74) 100 08/09/20 05:00 63 15 104/77 (86) 100 08/09/20 04:00 97.7 66 15 112/90 (97) 100 08/09/20 04:00 Mechanical Ventilator Mechanical Ventilator Mechanical Ventilator 08/09/20 04:00 64 08/09/20 04:00 30 08/09/20 03:30 68 13 30 08/09/20 03:00 68 15 130/77 (94) 98 08/09/20 02:00 70 16 106/59 (75) 99 08/09/20 01:00 70 16 103/57 (72) 99 08/09/20 00:00 97.0 72 18 91/62 (72) 98 08/09/20 00:00 Mechanical Ventilator Mechanical Ventilator Mechanical Ventilator 08/09/20 00:00 30 08/09/20 00:00 71 08/08/20 23:00 70 13 110/60 (77) 98 08/08/20 22:39 69 14 30 08/08/20 22:00 67 12 93/56 (68) 99 08/08/20 21:00 70 16 106/58 (74) 96 08/08/20 20:00 Mechanical Ventilator Mechanical Ventilator Mechanical Ventilator 08/08/20 20:00 66 08/08/20 20:00 30 08/08/20 20:00 98.6 69 15 143/66 (91) 100 08/08/20 19:16 66 12 30 08/08/20 19:00 69 15 102/58 (73) 99 08/08/20 18:00 70 14 95/63 (74) 100 08/08/20 17:00 67 13 97/65 (76) 100 Intake and Output 08/08/20 08/09/20 19:00 07:00 Intake Total 1460 ml 1405 ml Output Total 1110 ml 1225 ml Balance 350 ml 180 ml Free Water 130 ml IV Total 710 ml 555 ml Tube Feeding 720 ml 720 ml Other 30 ml Output Urine Total 1110 ml 1225 ml Laboratory Tests Test 08/08/20 17:40 08/08/20 23:22 08/09/20 05:00 08/09/20 12:24 POC Whole Blood Glucose 124 MG/DL (74-106) H Pending White Blood Count 8.7 K/UL (4.8-10.8) Red Blood Count 3.58 M/UL (4.70-6.10) L Hemoglobin 11.2 G/DL (14.2-18.0) L Hematocrit 33.0 % (42.0-52.0) L Mean Corpuscular Volume 92 FL (80-99) Mean Corpuscular Hemoglobin 31.3 PG (27.0-31.0) H Mean Corpuscular Hemoglobin Concent 33.9 G/DL (32.0-36.0) Red Cell Distribution Width 19.0 % (11.6-14.8) H Platelet Count 421 K/UL (150-450) Mean Platelet Volume 7.2 FL (6.5-10.1) Neutrophils (%) (Auto) 80.0 % (45.0-75.0) H Lymphocytes (%) (Auto) 16.5 % (20.0-45.0) L Monocytes (%) (Auto) 3.3 % (1.0-10.0) Eosinophils (%) (Auto) 0.1 % (0.0-3.0) Basophils (%) (Auto) 0.1 % (0.0-2.0) Sodium Level 135 MMOL/L (136-145) L Potassium Level 4.9 MMOL/L (3.5-5.1) Chloride Level 101 MMOL/L (98-107) Carbon Dioxide Level 27 MMOL/L (21-32) Blood Urea Nitrogen 25 mg/dL (7-18) H Creatinine 1.0 MG/DL (0.55-1.30) Estimat Glomerular Filtration Rate > 60 mL/min (>60) Glucose Level 108 MG/DL (74-106) H Calcium Level 8.5 MG/DL (8.5-10.1) Arterial Blood pH 7.446 (7.350-7.450) Arterial Blood Partial Pressure CO2 31.1 mmHg (35.0-45.0) L Arterial Blood Partial Pressure O2 96.9 mmHg (75.0-100.0) Arterial Blood HCO3 20.9 mmol/L (22.0-26.0) L Arterial Blood Oxygen Saturation 97.2 % (95-100) Arterial Blood Base Excess -2.4 (-2-2) L Richard Test Positive Objective HEAD AND NECK: No JVD. LUNGS: Coarse rhonchi. CARDIOVASCULAR: Irregular S1 and S2 with no gallop. ABDOMEN: Soft. EXTREMITIES: No pitting edema. Klever Matt MD Aug 09, 2020 16:24
[2020-08-09] MEDS: D5NS 1,000 ML IV SCH (16:53)
--- NOTE | 2020-08-09 17:20 | Pulmonolgy Critical Care Note ---
Critical Care - Asmt/Plan Problems: (1) Acute respiratory failure (2) Multifocal pneumonia (3) 2019 novel coronavirus disease (COVID-19) (4) Acute encephalopathy (5) Severe sepsis (6) Alzheimer's dementia (7) HTN (hypertension) (8) History of CVA (cerebrovascular accident) (9) BPH (benign prostatic hyperplasia) Assessment/Plan: pt's daughter didn't agree with tracheostomy. 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 Discussed with: nurses, consultants, case hardenermanager outreach - Objective Last 24 Hour Vital Signs Date Time Temp Pulse Resp B/P (MAP) Pulse Ox O2 Delivery O2 Flow Rate FiO2 08/09/20 17:00 70 20 126/68 (87) 99 08/09/20 16:00 98.3 80 20 154/76 (102) 98 08/09/20 16:00 Venturi Mask 6.0 08/09/20 15:26 10.0 50 08/09/20 15:19 Venturi Mask 10.0 08/09/20 15:00 74 23 133/66 (88) 91 08/09/20 14:50 98 Venturi Mask 10.0 50 08/09/20 14:45 Nasal Cannula 3.0 32 08/09/20 14:39 100 08/09/20 14:30 Nasal Cannula 4.0 08/09/20 14:00 66 18 124/63 (83) 99 08/09/20 13:00 66 19 111/62 (78) 99 08/09/20 12:00 Mechanical Ventilator 08/09/20 12:00 98.1 66 18 122/65 (84) 99 08/09/20 12:00 30 08/09/20 12:00 68 08/09/20 11:00 61 18 107/53 (71) 99 08/09/20 10:50 85 17 30 08/09/20 10:00 61 12 107/61 (76) 99 08/09/20 09:00 64 13 115/57 (76) 100 08/09/20 08:00 63 08/09/20 08:00 30 08/09/20 08:00 Mechanical Ventilator 08/09/20 08:00 98.4 65 14 108/63 (78) 99 08/09/20 07:52 65 14 30 08/09/20 07:00 68 14 115/62 (79) 100 08/09/20 06:05 70 12 08/09/20 06:00 64 17 102/60 (74) 100 08/09/20 05:00 63 15 104/77 (86) 100 08/09/20 04:00 97.7 66 15 112/90 (97) 100 08/09/20 04:00 Mechanical Ventilator Mechanical Ventilator Mechanical Ventilator 08/09/20 04:00 64 08/09/20 04:00 30 08/09/20 03:30 68 13 30 08/09/20 03:00 68 15 130/77 (94) 98 08/09/20 02:00 70 16 106/59 (75) 99 08/09/20 01:00 70 16 103/57 (72) 99 08/09/20 00:00 97.0 72 18 91/62 (72) 98 08/09/20 00:00 Mechanical Ventilator Mechanical Ventilator Mechanical Ventilator 08/09/20 00:00 30 08/09/20 00:00 71 08/08/20 23:00 70 13 110/60 (77) 98 08/08/20 22:39 69 14 30 08/08/20 22:00 67 12 93/56 (68) 99 08/08/20 21:00 70 16 106/58 (74) 96 08/08/20 20:00 Mechanical Ventilator Mechanical Ventilator Mechanical Ventilator 08/08/20 20:00 66 08/08/20 20:00 30 08/08/20 20:00 98.6 69 15 143/66 (91) 100 08/08/20 19:16 66 12 30 08/08/20 19:00 69 15 102/58 (73) 99 08/08/20 18:00 70 14 95/63 (74) 100 Status: awake Condition: critical HEENT: normocephalic Neck: full ROM Lungs: clear Heart: HR/BP stable Abdomen: soft Extremities: no C/C/E Objective: still large secretions, failed weaning Accucheck: 143 Critical Care - Subjective ROS Limited/Unobtainable: Yes Condition: critical EKG Rhythm: Sinus Rhythm FI02: 50 Vent Support Breath Rate: 12 Vent Support Mode: AC Vent Tidal Volume: 600 Sputum Amount: Moderate PEEP: 0.0 PIP: 14 I&O: Intake and Output 08/08/20 08/09/20 19:00 07:00 Intake Total 1460 ml 1405 ml Output Total 1110 ml 1225 ml Balance 350 ml 180 ml Free Water 130 ml IV Total 710 ml 555 ml Tube Feeding 720 ml 720 ml Other 30 ml Output Urine Total 1110 ml 1225 ml ET-Tube: 7.2 ET Position: 25 Labs: Laboratory Tests Test 08/08/20 17:40 08/08/20 23:22 08/09/20 05:00 08/09/20 12:24 POC Whole Blood Glucose 124 MG/DL (74-106) H Pending White Blood Count 8.7 K/UL (4.8-10.8) Red Blood Count 3.58 M/UL (4.70-6.10) L Hemoglobin 11.2 G/DL (14.2-18.0) L Hematocrit 33.0 % (42.0-52.0) L Mean Corpuscular Volume 92 FL (80-99) Mean Corpuscular Hemoglobin 31.3 PG (27.0-31.0) H Mean Corpuscular Hemoglobin Concent 33.9 G/DL (32.0-36.0) Red Cell Distribution Width 19.0 % (11.6-14.8) H Platelet Count 421 K/UL (150-450) Mean Platelet Volume 7.2 FL (6.5-10.1) Neutrophils (%) (Auto) 80.0 % (45.0-75.0) H Lymphocytes (%) (Auto) 16.5 % (20.0-45.0) L Monocytes (%) (Auto) 3.3 % (1.0-10.0) Eosinophils (%) (Auto) 0.1 % (0.0-3.0) Basophils (%) (Auto) 0.1 % (0.0-2.0) Sodium Level 135 MMOL/L (136-145) L Potassium Level 4.9 MMOL/L (3.5-5.1) Chloride Level 101 MMOL/L (98-107) Carbon Dioxide Level 27 MMOL/L (21-32) Blood Urea Nitrogen 25 mg/dL (7-18) H Creatinine 1.0 MG/DL (0.55-1.30) Estimat Glomerular Filtration Rate > 60 mL/min (>60) Glucose Level 108 MG/DL (74-106) H Calcium Level 8.5 MG/DL (8.5-10.1) Arterial Blood pH 7.446 (7.350-7.450) Arterial Blood Partial Pressure CO2 31.1 mmHg (35.0-45.0) L Arterial Blood Partial Pressure O2 96.9 mmHg (75.0-100.0) Arterial Blood HCO3 20.9 mmol/L (22.0-26.0) L Arterial Blood Oxygen Saturation 97.2 % (95-100) Arterial Blood Base Excess -2.4 (-2-2) L Richard Test Positive Test 08/09/20 16:45 Sodium Level Pending Potassium Level Pending Chloride Level Pending Carbon Dioxide Level Pending Blood Urea Nitrogen Pending Creatinine Pending Estimat Glomerular Filtration Rate Pending Glucose Level Pending Calcium Level Pending Kya Carreno MD Aug 09, 2020 17:20
--- NOTE | 2020-08-09 17:30 | NUR ---
NURSE NOTES: FiO2 titrated down to 24% 4L via venturi mask. SpO2 99-100%.
--- NOTE | 2020-08-09 18:00 | NUR ---
NURSE NOTES: Pt repositioned. SpO2 97-98% on FiO2 of 24% 4L via venturi mask. No distress noted. Will continue to monitor.
--- NOTE | 2020-08-09 18:26 | NUR ---
NURSE NOTES: Pt now on 3L O2 via simple mask with spO2 99-100%.
--- NOTE | 2020-08-09 19:58 | NUR ---
NURSE HAND-OFF REPORT: Latest Vital Signs: Temperature 98.3 , Pulse 66 , B/P 121 /63 , Respiratory Rate 18 , O2 SAT 100 , Simple Mask, O2 Flow Rate 3.0 . Vital Sign Comment: stable on 3L O2 via simple mask - spO2 100% EKG Rhythm: Sinus Rhythm Rhythm change?: N MD Notified?: n/a MD Response: seen by Dr Matt today Latest Gonzalez Fall Score: 50 Fall Risk: High Risk Safety Measures: Call light Within Reach, Bed Alarm Zone 2, Side Rails Side Rails x2, Bed position Low and Locked. Fall Precautions: Door Sign Yellow gown Fall education Report given to robb Greenberg RN.
--- NOTE | 2020-08-09 20:00 | NUR ---
NURSE received in no distress, on venturimask with fio2 35%, o2 sat 100% with productive cough, suctioned orally with small to moderate thick whitish secretion,tail edger nsr with hr 70's/min bp 121/65, responds to verbal and tactile stimuli but does not follow commands, npo for now pending swallowing eval in am, iv sites good to right wrist and right hand, ziegler cath intact and patent with yellow urine draining adequate amount, sacral dressing dry and intact, repositioned, on P200 overlay bed, explained all procedures turning, suctioning, to keep o2 mask on at all times
--- NOTE | 2020-08-09 22:00 | NUR ---
NURSE NOTES: coughing productively, suctioned nasotracheally with large amount of thick whitish secretion
[2020-08-10] VITALS (19 sets, daily range): BP systolic 109–154; BP diastolic 63–94
--- NOTE | 2020-08-10 | NUR ---
NURSE NOTES: fingerstick blood sugar done with blood sugar 164, covered with 4 units novolog subcut
[2020-08-10] MEDS: NovoLOG Insulin Flexpen SUBQ SCH ×4 (00:21→18:00)
--- NOTE | 2020-08-10 02:00 | NUR ---
NURSE NOTES: in no distress, with good urine output,suctioned nasotracheally but fights when being suctioned
[2020-08-10] MEDS: Meropenem 1 GM in NS 55 ML IVPB SCH (02:23)
--- NOTE | 2020-08-10 04:00 | NUR ---
NURSE NOTES: o2 sat 98-100% with [id number],vs stable, afebrile
[2020-08-10 05:34] LABS: BASOPHILS % (AUTO) 0.4 % (0.0-2.0); EOSINOPHILS % (AUTO) 0.1 % (0.0-3.0); LYMPHOCYTES % (AUTO) 18.6 % (20.0-45.0); MEAN CORPUSCULAR VOLUME 92 FL (80-99); MONOCYTES % (AUTO) 3.5 % (1.0-10.0); NEUTROPHILS % (AUTO) 77.4 % (45.0-75.0); PLATELET COUNT 443 K/UL (150-450); RED CELL DISTRIBUTION WIDTH 19.3 % (11.6-14.8); WHITE BLOOD COUNT 8.7 K/UL (4.8-10.8)
[2020-08-10 06:00] LABS: ANION GAP 9 mmol/L (5-15); BLOOD UREA NITROGEN 21 mg/dL (7-18); CALCIUM 8.8 MG/DL (8.5-10.1); CARBON DIOXIDE 24 MMOL/L (21-32); CHLORIDE 103 MMOL/L (98-107); CREATININE 0.7 MG/DL (0.55-1.30); POTASSIUM 4.7 MMOL/L (3.5-5.1); SODIUM 136 MMOL/L (136-145)
--- NOTE | 2020-08-10 06:00 | NUR ---
NURSE NOTES: complete bath given, oral care done, suctioned prn, incontinent of soft brown stool,accucheck blood sugar done with blood sugar 116 with no coverage
--- NOTE | 2020-08-10 07:12 | NUR ---
NURSE HAND-OFF REPORT: Latest Vital Signs: Temperature 98.2 , Pulse 70 , B/P 129 /87 , Respiratory Rate 22 , O2 SAT 96 , Nasal Cannula, O2 Flow Rate 2.0 . Vital Sign Comment: stable EKG Rhythm: Sinus Rhythm Rhythm change?: N MD Notified?: MD Response: Latest Gonzalez Fall Score: 50 Fall Risk: High Risk Safety Measures: Call light Within Reach, Bed Alarm Zone 1, Side Rails Side Rails x3, Bed position Low and Locked. Fall Precautions: Yellow Socks Yellow Gown Door Sign Patient Fall Education Report given to aaliyah dixon.
[2020-08-10] MEDS ORDERED: Varibar Honey 250ml MC PRN (07:15)
[2020-08-10] MEDS ORDERED: Varibar Nectar 240ml MC PRN (07:15)
[2020-08-10] MEDS ORDERED: Varibar Pudding 230ml MC PRN (07:15)
[2020-08-10] MEDS ORDERED: Varibar Thin Liquid powder 148gm MC PRN (07:15)
--- NOTE | 2020-08-10 08:00 | NUR ---
Received patient awake but does not follow commands, moans only. manager monitoring shows SR no ectopy . Both IV sites patent #22 @ RH and #22 @Right wrist- no s/s infiltration noted. On O2 2L via NC- 97-98%- no signs of respiratory distress noted. F/C patent -draining adequately
--- NOTE | 2020-08-10 08:45 | Nephrology Progress Note ---
Assessment/Plan Problem List: (1) Dehydration (2) MELANIE (acute kidney injury) (3) Renal failure (ARF), acute on chronic (4) Hypoxia (5) Acute encephalopathy (6) Electrolyte imbalance Assessment 79-year-old male is admitted with acute hypoxic respiratory failure most likely secondary to pneumonia and sepsis, UTI. Acute on chronic renal failure Dehydration Electrolyte imbalances, hypernatremia Hypoalbuminemia Diabetes type 2 History of congestive heart failure Hypertension Hyperlipemia Alzheimer's Previous COVID-19 infection in May 2020 Plan August 10: Discussed with RN. Patient now extubated. On nasal cannula. Renal parameters stable. Continue per consultants. August 09: Discussed with FLORES Holliday. Weaning in process. It seems like patient is tolerating better. Labs reviewed. Continue per consultants. August 08: Remains in ICU. Status unchanged. Labs and medication list reviewed. Remains full code. Weaning continues to fail. August 07: Remains in ICU. Remains intubated. Remains full code. Continues to be on weaning trials. Renal parameters are stable. August 06: Patient remains in ICU. Full code. Intubated. Fails weaning. Labs reviewed. Stable from renal standpoint of view. Discussed with RN. August 05: Labs reviewed. Discussed with RN. Abnormal electrolyte addressed. Remains intubated on ventilator. Continue per consultants. August 04: Labs reviewed. Discussed with RN. Stable from renal standpoint of view. Main issue is weaning from ventilator that keeps failing. Continue per consultants. August 03: Labs reviewed. Discussed with RN. Stable from renal standpoint of view. Continue per consultants. August 02: Patient seen and discussed with RN. Labs reviewed. Remains intubated. Trial of weaning this being attempted. Continue per consultants. August 01: Remains intubated. Labs reviewed. Renal parameters stable. Continue per consultants. July 31: Remains on mechanical ventilation. Labs reviewed. Abnormal electrolytes addressed. Stable from renal standpoint of view. July 30: Remains intubated. Remains full code. Labs reviewed. Low phosphorus replaced. Continue to monitor renal parameters. Continue per consultants. July 29: Failed weaning. Remains intubated. Remains full closed. Labs reviewed. Stable from renal standpoint view. July 28: Remains in ICU. Remains full code. Labs are reviewed. Phosphorus supplement given. Continue per consultants. July 27: Remains in ICU. Full code. Labs reviewed. Remains intubated. Stable renal parameters. July 26: In ICU. Full code. Discussed with RN. Stable renal parameters. July 25: Seen in ICU. Discussed with FLORES Holliday. Flomax discontinued. Labs reviewed. Stable from renal standpoint of view. July 24: Seen in ICU. Discussed with FLORES Holliday. Remains on pressor. Electrolyte abnormalities noted and addressed. Continue per consultants. Patient remains full code. July 23: Seen in ICU. Discussed with FLORES Barrera. Blood pressure remains a little requiring pressors. Labs reviewed. Stable renal parameters. Continue per consultants. July 22: Remains intubated. Full code. Blood pressure borderline low. Will increase midodrine dose. Discussed with RN. Continue to monitor renal parameters and electrolytes. July 21: Intubated. Full code. Labs reviewed. Stable from renal standpoint of view. Continue per consultants. July 20: Remains intubated. Full code. Labs reviewed. Electrolytes within normal limit. Continue per consultants. July 19: In ICU. Remains intubated on ventilator. Remains full code. Low potassium addressed. Blood pressure fluctuating. Continue per consultants. July 18: Patient in ICU. Intubated on ventilator. On 6 mics of Levophed. Will give 100 cc albumin 25%. K-Phos IV ordered. Continue per consultants. Continue monitor renal parameters and electrolytes. July 17: Status unchanged. Transfer to [facility] for seizure. Stable from renal standpoint to view. Continue per consultants. July 16: Status quo. Labs reviewed. Renal parameters stable. Continue per consultants. July 15: On nonrebreather mask. Labs reviewed. Renal parameters stable.Continue per exercise physiologist certified. Clinically unchanged. July 14: On nonrebreather mask. Inflammatory markers gradually declining. Renal parameters stable. Continue per pulmonary. July 13: Remains on nonrebreather mask. Inflammatory markers remain elevated. Renal parameters somewhat stable. Continue per pulmonary and ID. Remains full code. July 12: Patient on nonrebreather mask. Labs noted. Serum creatinine down to 1.3. Continue per consultants. July 11: Patient on nonrebreather mask. Transfer to telemetry when seen this morning. Labs noted. Continue per consultants. Serum creatinine erin to 1.7. Continue to monitor renal parameters. Continue to monitor vancomycin level July 10: Patient is not doing well clinically. Mild respiratory distress. ABG noted. Somewhat hypoxic. CBC and chemistry panel ordered. Discussed with FLORES Cho. Will defer to pulmonary management to specialist. Continue per ID. Renal parameters remained stable as of July 09. July 09: Labs reviewed. Renal parameters stable. Continue per consultants. July 08: Labs reviewed. Potassium via NG tube ordered. IV fluids stopped. Continue per consultants. July 07: Labs reviewed. Low potassium and low phosphorus replaced. Continue per consultants. Remains stable from renal standpoint of view. July 06: Patient remains n.p.o. IV fluid down to 50 cc an hour. Potassium supplement intravenously ordered. Continue per consultants. Previously: Patient is n.p.o., will continue on IV fluid of D5W 75 cc an hour We will monitor electrolytes and renal parameters Avoid nephrotoxic's Start p.o. when he clears by speech therapist, meanwhile aspiration precautions Keep the blood pressure and blood sugar in check Per orders Subjective ROS Limited/Unobtainable: No Constitutional: Reports: malaise Objective Objective Last 24 Hour Vital Signs Date Time Temp Pulse Resp B/P (MAP) Pulse Ox O2 Delivery O2 Flow Rate FiO2 08/10/20 07:01 70 22 129/87 (101) 96 08/10/20 06:00 75 22 140/78 (98) 96 08/10/20 05:00 72 20 144/74 (97) 98 08/10/20 04:35 Nasal Cannula 2.0 08/10/20 04:34 72 08/10/20 04:00 98.2 68 20 143/69 (93) 100 08/10/20 03:00 72 18 125/72 (89) 100 08/10/20 02:00 70 18 128/63 (84) 100 08/10/20 01:00 68 20 110/64 (79) 100 08/10/20 00:00 66 08/10/20 00:00 Venturi Mask 6.0 08/10/20 00:00 98.5 72 20 127/69 (88) 100 08/09/20 23:00 77 20 120/78 (92) 98 08/09/20 22:00 70 18 148/72 (97) 98 08/09/20 21:00 67 20 118/73 (88) 100 08/09/20 20:00 Venturi Mask 6.0 08/09/20 20:00 70 08/09/20 20:00 98.3 71 22 121/65 (83) 100 08/09/20 19:00 66 18 121/63 (82) 100 08/09/20 18:28 3.0 08/09/20 18:25 Simple Mask 3.0 08/09/20 18:00 70 18 117/70 (86) 99 08/09/20 17:31 Venturi Mask 4.0 08/09/20 17:29 4.0 24 08/09/20 17:00 70 20 126/68 (87) 99 08/09/20 16:00 6.0 30 08/09/20 16:00 98.3 80 20 154/76 (102) 98 08/09/20 16:00 71 08/09/20 16:00 Venturi Mask 6.0 08/09/20 15:26 10.0 50 08/09/20 15:19 Venturi Mask 10.0 08/09/20 15:00 74 23 133/66 (88) 91 08/09/20 14:50 98 Venturi Mask 10.0 50 08/09/20 14:45 Nasal Cannula 3.0 32 08/09/20 14:39 100 08/09/20 14:30 Nasal Cannula 4.0 08/09/20 14:00 66 18 124/63 (83) 99 08/09/20 13:00 66 19 111/62 (78) 99 08/09/20 12:00 Mechanical Ventilator 08/09/20 12:00 98.1 66 18 122/65 (84) 99 08/09/20 12:00 30 08/09/20 12:00 68 08/09/20 11:00 61 18 107/53 (71) 99 08/09/20 10:50 85 17 30 08/09/20 10:00 61 12 107/61 (76) 99 08/09/20 09:00 64 13 115/57 (76) 100 Intake and Output 08/09/20 08/10/20 19:00 07:00 Intake Total 995 ml 600 ml Output Total 1425 ml 700 ml Balance -430 ml -100 ml Free Water 10 ml IV Total 565 ml 600 ml Tube Feeding 420 ml Output Urine Total 1425 ml 700 ml Current Medications Medications (Trade) Dose Ordered Sig/Ankush Route PRN Reason Start Time Stop Time Status Last Admin Dose Admin Acetaminophen (Tylenol) 650 mg Q4H PRN GT Temp >100.5 08/01/20 12:30 08/31/20 12:29 08/03/20 10:14 Barium Sulfate (Varibar Honey) 250 ml NOW PRN MC RAD 08/10/20 07:15 08/13/20 07:08 Barium Sulfate (Varibar [place]) 240 ml NOW PRN MC RAD 08/10/20 07:15 08/13/20 07:08 Barium Sulfate (Varibar Pudding) 230 ml NOW PRN RAD 08/10/20 07:15 08/13/20 07:08 Barium Sulfate (Varibar Thin Liquid powder) 148 gm NOW PRN RAD 08/10/20 07:15 08/13/20 07:08 Dexamethasone (Decadron) 6 mg Q24H ORAL 08/02/20 18:00 08/11/20 18:01 08/09/20 17:17 Dextrose (Dextrose 50%) 50 ml Q30M PRN IV Hypoglycemia 07/03/20 22:45 10/01/20 22:44 Dextrose/Sodium Chloride 1,000 ml @ 50 mls/hr Q20H IV 08/09/20 16:15 09/08/20 16:14 08/09/20 16:53 Heparin Sodium (Porcine) (Heparin 5000 units/ml) 5,000 units EVERY 12 HOURS SUBQ 07/03/20 21:00 08/17/20 20:59 08/09/20 21:19 Insulin Aspart (NovoLOG) EVERY 6 HOURS SUBQ 07/13/20 06:00 10/02/20 06:29 08/10/20 00:21 Meropenem 1 gm/ Sodium Chloride 55 ml @ 110 mls/hr Q8H IVPB 08/01/20 10:00 08/10/20 09:59 08/10/20 02:23 Nitroglycerin (Ntg) 0.4 mg Q5M PRN SL Prn Chest Pain 08/01/20 10:15 08/31/20 10:09 Ondansetron HCl (Zofran) 4 mg Q6H PRN IVP Nausea & Vomiting 08/01/20 14:30 08/31/20 14:29 Pantoprazole (Protonix) 40 mg DAILY IV 07/18/20 09:00 08/17/20 08:59 08/09/20 08:06 Polyethylene Glycol (Miralax) 17 gm DAILYPRN PRN GT Constipation 08/01/20 10:15 08/31/20 10:14 Promethazine HCl/ Codeine (Phenergan with Codeine) 5 ml Q4H PRN GT For Cough 08/01/20 10:14 08/31/20 10:13 08/05/20 22:05 Laboratory Tests 08/09/20 12:24: Arterial Blood pH 7.446, Arterial Blood Partial Pressure CO2 31.1L, Arterial Blood Partial Pressure O2 96.9, Arterial Blood HCO3 20.9L, Arterial Blood Oxygen Saturation 97.2, Arterial Blood Base Excess -2.4L, Richard Test Positive 08/10/20 04:19: White Blood Count 8.7, Red Blood Count 3.90L, Hemoglobin 12.0L, Hematocrit 36.0L , Mean Corpuscular Volume 92, Mean Corpuscular Hemoglobin 30.8, Mean Corpuscular Hemoglobin Concent 33.4, Red Cell Distribution Width 19.3H, Platelet Count 443, Mean Platelet Volume 7.4, Neutrophils (%) (Auto) 77.4H, Lymphocytes (%) (Auto) 18.6L, Monocytes (%) (Auto) 3.5, Eosinophils (%) (Auto) 0.1, Basophils (%) (Auto) 0.4, Sodium Level 136, Potassium Level 4.7, Chloride Level 103, Carbon Dioxide Level 24, Anion Gap 9, Blood Urea Nitrogen 21H, Creatinine 0.7, Estimat Glomerular Filtration Rate > 60, Glucose Level 113H, Calcium Level 8.8 08/10/20 05:50: POC Whole Blood Glucose 116H Height (Feet): 5 Height (Inches): 4.00 Weight (Pounds): 130 General Appearance: no apparent distress EENT: other - Now extubated on nasal cannula Cardiovascular: normal rate Respiratory/Chest: decreased breath sounds Abdomen: distended Tino Connors MD Aug 10, 2020 08:45
[2020-08-10] MEDS: Pantoprazole Inj IV SCH (08:55)
[2020-08-10] MEDS: Heparin 5000 units/ml inj SUBQ SCH ×2 (08:56→22:00)
[2020-08-10 09:16] LABS: ALANINE AMINOTRANSFERASE 54 U/L (12-78); ALBUMIN 2.5 G/DL (3.4-5.0); ALKALINE PHOSPHATASE 249 U/L (46-116); ASPARTATE AMINO TRANSFERASE 35 U/L (15-37); BILIRUBIN,DIRECT < 0.1 MG/DL (0.0-0.3); BILIRUBIN,TOTAL 0.4 MG/DL (0.2-1.0)
--- NOTE | 2020-08-10 09:45 | NUR ---
NURSE NOTES: Dr. Carreno came to see patient- updated with patient status- with order to transfer patient to SDU
--- NOTE | 2020-08-10 12:00 | NUR ---
NURSE NOTES: V/S stable - condition unchanged V/S stable. Suctioned small amt of thick light yellowish secretion via spenser- pharynx. Repositioned for comfort
[2020-08-10] MEDS: D5NS 1,000 ML IV SCH (12:30)
--- NOTE | 2020-08-10 12:54 | Infectious Diseases Prog Note ---
Assessment/Plan 79yo M with: Respiratory code 2ry to mucus plug 07/23 Septic Shock- -recurrent Fever, recurrent, low grade;SP Leukocytosis; recurrent; increased Acute hypoxic resp failure, on NRB mask> 4l NC; back on NRB, desaturation 07/09 > intubated 07/17 Pneumonia- >HAP Hx of COVID-19 PNA 05/20/2007/28 CXR: No significant interval change in the radiographic appearance the chest compared to one day prior. 07/25 Resp cx +MRSA, nl resp bobby UCx neg BCx NTD 07/24 COVID PCR neg --07/21 CXR: Bilateral infiltrates in a peribronchovascular distribution are unchanged. Left pleural effusion is unchanged. --07/19 CXR: Persistent bilateral patchy pulmonary opacities, most prominent in the left lower lung. --07/18 ucx neg sp cx MRSA (colonizer at this point) Bcx Neg --07/13 Bcx Neg 07/10 Sp cx MRSA (Vancomycin APOLONIA 1), ESBL E.coli 07/03 BCx NTD UA - WBC, UCx Neg 07/03 COVID rapid neg; 07/06 rapid COVID PCR + (from prior infection)- not new infection Flu A/B neg CXR: L pna Resp cx MRSA 07/30 Resp cx +ESBL E.coli & PsA 08/01 BCx NTD 08/02 CXR: Small bilateral pleural effusions with moderate vascular c ongestion. Airspace consolidation in the left lower lung field may represent atelectasis however, correlate for infiltrate. This is improving when compared to the prior study. 08/03 BCx NTD 08/03 CXR: Increasing right basilar opacity, likely infiltrate, may also reflect increasing pleural fluid H/o COVID pna Tested positive 05/20/2007/03 Rapid Ag neg 07/06 Rapid Ag positive (from prior disease?) 07/24 COVID PCR neg MELANIE on CKD, improving SNF resident ([facility]) Non-verbal VRE and MRSA colonized Plan: Stop meropenem # / given high fever, ESBL E.coli and PsA pna Monitor off abx On dex 6mg per Primary -07/31 SP linezolid #7 -07/27 SP meropenem #14 for ESBL pna -07/21 SP Micafungin #4 -11/6 SP IV Vancomycin #15 -11/ SP Zosyn # SP Cefepime # SP Flagyl # Monitor CBC/CMP Monitor resp status Monitor temp curve and hemodynamics D/w RN Thank you for this consult. [facility] will continue to follow. Subjective Allergies: Coded Allergies: No Known Allergies (Unverified , 04/30/12) AF WBC 8.7 2L NC off abx On dex 6 NAD Objective Last 24 Hour Vital Signs Date Time Temp Pulse Resp B/P (MAP) Pulse Ox O2 Delivery O2 Flow Rate FiO2 08/10/20 12:00 Nasal Cannula 2.0 08/10/20 12:00 98.3 65 19 130/73 (92) 98 08/10/20 12:00 65 08/10/20 12:00 98.3 65 19 130/73 (92) 98 08/10/20 11:00 70 21 109/68 (82) 96 08/10/20 10:00 69 20 127/94 (105) 98 08/10/20 09:00 69 16 124/77 (93) 97 08/10/20 08:00 Nasal Cannula 2.0 08/10/20 08:00 71 08/10/20 08:00 97.8 71 16 154/94 (114) 96 08/10/20 07:01 70 22 129/87 (101) 96 08/10/20 06:00 75 22 140/78 (98) 96 08/10/20 05:00 72 20 144/74 (97) 98 08/10/20 04:35 Nasal Cannula 2.0 08/10/20 04:34 72 08/10/20 04:00 98.2 68 20 143/69 (93) 100 08/10/20 03:00 72 18 125/72 (89) 100 08/10/20 02:00 70 18 128/63 (84) 100 08/10/20 01:00 68 20 110/64 (79) 100 08/10/20 00:00 66 08/10/20 00:00 Venturi Mask 6.0 08/10/20 00:00 98.5 72 20 127/69 (88) 100 08/09/20 23:00 77 20 120/78 (92) 98 08/09/20 22:00 70 18 148/72 (97) 98 08/09/20 21:00 67 20 118/73 (88) 100 08/09/20 20:00 Venturi Mask 6.0 08/09/20 20:00 70 08/09/20 20:00 98.3 71 22 121/65 (83) 100 08/09/20 19:00 66 18 121/63 (82) 100 08/09/20 18:28 3.0 08/09/20 18:25 Simple Mask 3.0 08/09/20 18:00 70 18 117/70 (86) 99 08/09/20 17:31 Venturi Mask 4.0 08/09/20 17:29 4.0 24 08/09/20 17:00 70 20 126/68 (87) 99 08/09/20 16:00 6.0 30 08/09/20 16:00 98.3 80 20 154/76 (102) 98 08/09/20 16:00 71 08/09/20 16:00 Venturi Mask 6.0 08/09/20 15:26 10.0 50 08/09/20 15:19 Venturi Mask 10.0 08/09/20 15:00 74 23 133/66 (88) 91 08/09/20 14:50 98 Venturi Mask 10.0 50 08/09/20 14:45 Nasal Cannula 3.0 32 08/09/20 14:39 100 08/09/20 14:30 Nasal Cannula 4.0 08/09/20 14:00 66 18 124/63 (83) 99 08/09/20 13:00 66 19 111/62 (78) 99 Height (Feet): 5 Height (Inches): 4.00 Weight (Pounds): 130 Gen: NAD in bed HEENT: NCAT CV: RRR Pulm: CTAB Abd: Soft, NTND Ext: No c/c/e Neuro: Awake, not interactive Lines: RUE PICC Laboratory Tests Test 08/10/20 04:19 08/10/20 05:50 White Blood Count 8.7 K/UL (4.8-10.8) Red Blood Count 3.90 M/UL (4.70-6.10) L Hemoglobin 12.0 G/DL (14.2-18.0) L Hematocrit 36.0 % (42.0-52.0) L Mean Corpuscular Volume 92 FL (80-99) Mean Corpuscular Hemoglobin 30.8 PG (27.0-31.0) Mean Corpuscular Hemoglobin Concent 33.4 G/DL (32.0-36.0) Red Cell Distribution Width 19.3 % (11.6-14.8) H Platelet Count 443 K/UL (150-450) Mean Platelet Volume 7.4 FL (6.5-10.1) Neutrophils (%) (Auto) 77.4 % (45.0-75.0) H Lymphocytes (%) (Auto) 18.6 % (20.0-45.0) L Monocytes (%) (Auto) 3.5 % (1.0-10.0) Eosinophils (%) (Auto) 0.1 % (0.0-3.0) Basophils (%) (Auto) 0.4 % (0.0-2.0) Sodium Level 136 MMOL/L (136-145) Potassium Level 4.7 MMOL/L (3.5-5.1) Chloride Level 103 MMOL/L (98-107) Carbon Dioxide Level 24 MMOL/L (21-32) Anion Gap 9 mmol/L (5-15) Blood Urea Nitrogen 21 mg/dL (7-18) H Creatinine 0.7 MG/DL (0.55-1.30) Estimat Glomerular Filtration Rate > 60 mL/min (>60) Glucose Level 113 MG/DL (74-106) H Calcium Level 8.8 MG/DL (8.5-10.1) Phosphorus Level 3.0 MG/DL (2.5-4.9) Magnesium Level 2.8 MG/DL (1.8-2.4) H Total Bilirubin 0.4 MG/DL (0.2-1.0) Direct Bilirubin < 0.1 MG/DL (0.0-0.3) Aspartate Amino Transf (AST/SGOT) 35 U/L (15-37) Alanine Aminotransferase (ALT/SGPT) 54 U/L (12-78) Alkaline Phosphatase 249 U/L (46-116) H Total Protein 8.2 G/DL (6.4-8.2) Albumin 2.5 G/DL (3.4-5.0) L POC Whole Blood Glucose 116 MG/DL (74-106) H Current Medications Medications (Trade) Dose Ordered Sig/Ankush Route PRN Reason Start Time Stop Time Status Last Admin Dose Admin Acetaminophen (Tylenol) 650 mg Q4H PRN GT Temp >100.5 08/01/20 12:30 08/31/20 12:29 08/03/20 10:14 Barium Sulfate (Varibar Honey) 250 ml NOW PRN RAD 08/10/20 07:15 08/13/20 07:08 Barium Sulfate (Varibar [place]) 240 ml NOW PRN RAD 08/10/20 07:15 08/13/20 07:08 Barium Sulfate (Varibar Pudding) 230 ml NOW PRN RAD 08/10/20 07:15 08/13/20 07:08 Barium Sulfate (Varibar Thin Liquid powder) 148 gm NOW PRN RAD 08/10/20 07:15 08/13/20 07:08 Dexamethasone (Decadron) 6 mg Q24H ORAL 08/02/20 18:00 08/11/20 18:01 08/09/20 17:17 Dextrose (Dextrose 50%) 50 ml Q30M PRN IV Hypoglycemia 07/03/20 22:45 10/01/20 22:44 Dextrose/Sodium Chloride 1,000 ml @ 50 mls/hr Q20H IV 08/09/20 16:15 09/08/20 16:14 08/10/20 12:30 Heparin Sodium (Porcine) (Heparin 5000 units/ml) 5,000 units EVERY 12 HOURS SUBQ 07/03/20 21:00 08/17/20 20:59 08/10/20 08:56 Insulin Aspart (NovoLOG) EVERY 6 HOURS SUBQ 07/13/20 06:00 10/02/20 06:29 08/10/20 00:21 Nitroglycerin (Ntg) 0.4 mg Q5M PRN SL Prn Chest Pain 08/01/20 10:15 08/31/20 10:09 Ondansetron HCl (Zofran) 4 mg Q6H PRN IVP Nausea & Vomiting 08/01/20 14:30 08/31/20 14:29 Pantoprazole (Protonix) 40 mg DAILY IV 07/18/20 09:00 08/17/20 08:59 08/10/20 08:55 Polyethylene Glycol (Miralax) 17 gm DAILYPRN PRN GT Constipation 08/01/20 10:15 08/31/20 10:14 Promethazine HCl/ Codeine (Phenergan with Codeine) 5 ml Q4H PRN GT For Cough 08/01/20 10:14 08/31/20 10:13 08/05/20 22:05 Lorie Ramirez M.D. Aug 10, 2020 12:54
--- NOTE | 2020-08-10 13:25 | NUR ---
NURSE NOTES: Dr. Ramirez came to see patient- updated with patient's condition- made aware patient for transfer to SDU today
--- NOTE | 2020-08-10 14:58 | Cardiac Electrophysiology PN ---
Assessment/Plan Assessment/Plan 1. Accelerated junctional rhythm. Ruled out for ME Echo showed ejection fraction of 55%. 2. Long run of 31 beats of Nonsustained VT on 07/14/2020. Cardiac cath after stabilization. 3. Aníbal 30, Asystole while on the Vent due to resp failure/ likely mucus plug . S/P Code Off midodrine 4. Respiratory failure, on antibiotic Extubated 08/09/20 5. Septic shock. Off Levophed 6. History of previous COVID infection in May 2020 and active Covid in isolation Now negative again and off isolation. 7. Dementia. SHAYY RN and Dr hernandez Subjective Subjective In ICU extubated 08/09/20 Had 31 beats of VT on 07/14/20 and 5 beats 07/19/20 Coded on 07/23/20 as sat dropped to 20% and got aníbal 30s and PEA and pulseless Swallow eval is pending Objective Last 24 Hour Vital Signs Date Time Temp Pulse Resp B/P (MAP) Pulse Ox O2 Delivery O2 Flow Rate FiO2 08/10/20 14:00 69 17 132/68 (89) 98 08/10/20 13:00 66 16 154/77 (102) 98 08/10/20 12:00 Nasal Cannula 2.0 08/10/20 12:00 98.3 65 19 130/73 (92) 98 08/10/20 12:00 65 08/10/20 12:00 98.3 65 19 130/73 (92) 98 08/10/20 11:00 70 21 109/68 (82) 96 08/10/20 10:00 69 20 127/94 (105) 98 08/10/20 09:00 69 16 124/77 (93) 97 08/10/20 08:00 Nasal Cannula 2.0 08/10/20 08:00 71 08/10/20 08:00 97.8 71 16 154/94 (114) 96 08/10/20 07:01 70 22 129/87 (101) 96 08/10/20 06:00 75 22 140/78 (98) 96 08/10/20 05:00 72 20 144/74 (97) 98 08/10/20 04:35 Nasal Cannula 2.0 08/10/20 04:34 72 08/10/20 04:00 98.2 68 20 143/69 (93) 100 08/10/20 03:00 72 18 125/72 (89) 100 08/10/20 02:00 70 18 128/63 (84) 100 08/10/20 01:00 68 20 110/64 (79) 100 08/10/20 00:00 66 08/10/20 00:00 Venturi Mask 6.0 08/10/20 00:00 98.5 72 20 127/69 (88) 100 08/09/20 23:00 77 20 120/78 (92) 98 08/09/20 22:00 70 18 148/72 (97) 98 08/09/20 21:00 67 20 118/73 (88) 100 08/09/20 20:00 Venturi Mask 6.0 08/09/20 20:00 70 08/09/20 20:00 98.3 71 22 121/65 (83) 100 08/09/20 19:00 66 18 121/63 (82) 100 08/09/20 18:28 3.0 08/09/20 18:25 Simple Mask 3.0 08/09/20 18:00 70 18 117/70 (86) 99 08/09/20 17:31 Venturi Mask 4.0 08/09/20 17:29 4.0 24 08/09/20 17:00 70 20 126/68 (87) 99 08/09/20 16:00 6.0 30 08/09/20 16:00 98.3 80 20 154/76 (102) 98 08/09/20 16:00 71 08/09/20 16:00 Venturi Mask 6.0 08/09/20 15:26 10.0 50 08/09/20 15:19 Venturi Mask 10.0 08/09/20 15:00 74 23 133/66 (88) 91 Intake and Output 08/09/20 08/10/20 19:00 07:00 Intake Total 995 ml 600 ml Output Total 1425 ml 700 ml Balance -430 ml -100 ml Free Water 10 ml IV Total 565 ml 600 ml Tube Feeding 420 ml Output Urine Total 1425 ml 700 ml Laboratory Tests Test 08/10/20 04:19 08/10/20 05:50 White Blood Count 8.7 K/UL (4.8-10.8) Red Blood Count 3.90 M/UL (4.70-6.10) L Hemoglobin 12.0 G/DL (14.2-18.0) L Hematocrit 36.0 % (42.0-52.0) L Mean Corpuscular Volume 92 FL (80-99) Mean Corpuscular Hemoglobin 30.8 PG (27.0-31.0) Mean Corpuscular Hemoglobin Concent 33.4 G/DL (32.0-36.0) Red Cell Distribution Width 19.3 % (11.6-14.8) H Platelet Count 443 K/UL (150-450) Mean Platelet Volume 7.4 FL (6.5-10.1) Neutrophils (%) (Auto) 77.4 % (45.0-75.0) H Lymphocytes (%) (Auto) 18.6 % (20.0-45.0) L Monocytes (%) (Auto) 3.5 % (1.0-10.0) Eosinophils (%) (Auto) 0.1 % (0.0-3.0) Basophils (%) (Auto) 0.4 % (0.0-2.0) Sodium Level 136 MMOL/L (136-145) Potassium Level 4.7 MMOL/L (3.5-5.1) Chloride Level 103 MMOL/L (98-107) Carbon Dioxide Level 24 MMOL/L (21-32) Anion Gap 9 mmol/L (5-15) Blood Urea Nitrogen 21 mg/dL (7-18) H Creatinine 0.7 MG/DL (0.55-1.30) Estimat Glomerular Filtration Rate > 60 mL/min (>60) Glucose Level 113 MG/DL (74-106) H Calcium Level 8.8 MG/DL (8.5-10.1) Phosphorus Level 3.0 MG/DL (2.5-4.9) Magnesium Level 2.8 MG/DL (1.8-2.4) H Total Bilirubin 0.4 MG/DL (0.2-1.0) Direct Bilirubin < 0.1 MG/DL (0.0-0.3) Aspartate Amino Transf (AST/SGOT) 35 U/L (15-37) Alanine Aminotransferase (ALT/SGPT) 54 U/L (12-78) Alkaline Phosphatase 249 U/L (46-116) H Total Protein 8.2 G/DL (6.4-8.2) Albumin 2.5 G/DL (3.4-5.0) L POC Whole Blood Glucose 116 MG/DL (74-106) H Objective HEAD AND NECK: No JVD. LUNGS: Coarse rhonchi. CARDIOVASCULAR: Irregular S1 and S2 with no gallop. ABDOMEN: Soft. EXTREMITIES: No pitting edema. Klever Matt MD Aug 10, 2020 14:58
--- NOTE | 2020-08-10 16:01 | NUR ---
Speech Pathology Note (Bedside Dysphagia Re-Evaluation) Hospitalization: 07/03/2020~ Admission Dx: Community Acquired Pneumonia likely aspiration Intubation: 07/17/2020~08/09/2020 for hypoxemia, septic shock Relevant Objective Study: 03/23/2017(Videofluoroscopic Swallow Study at [facility]) Findings were remarkable for penetration to the level of true vocal folds with delay swallow triggering) The most swallow evaluation: 07/06/2020 positive for s.s of aspiration Code Status: Full code Post extubation day #1 Length of intubation days 23 PMH: HTN, DM2, BPH, CKD, Alzheimer's dementia, CVA, right shoulder surgery, COVID 19 Brief Note: Mr. Saha is a 79 year old male who is a resident of [facility] admitted for concerning for aspiration pneumonia in setting of leukocytosis, fever, hypoxemia with abnormal CXR. Addition to, his BUN/Creatine was elevated to 53/2.4 insetting of underlying CKD. He failed bedside dysphagia evaluation on 07/06/2020 and he remained NPO. Clinical condition had declined with septic shock and intubated on 07/09/2020 around 12:24.Through this ICU course, clinically improved and successfully extubated on 08/09/2020. Current labs: unremarkable Vital signs: Temp 98.3, HR: 65~70, BP: 109/68~154/77, SPO2: 96~98 on 2 liter. Findings: Mr. Saha is oriented x 0. His spontaneous random speech is clear, and voice is intact. His respiration is normal. Pt was unable to follow commands. I attempted PO trial with ice chip, and apple sauce. He sealed his lips and refused to take any PO with me at this time. Interpretation: 1. Chronic oropharyngeal dysphagia with microaspiration 2. Respiratory failure with aspiration required 23 days Intubation Plan: 1. Hold PO for now 2. Consider GI consult for PEG Galina Terrell
--- NOTE | 2020-08-10 16:50 | NUR ---
NURSE NOTES: Transferred to SDU room 235-2 via bed- patient awake , on O2 at 2l/NC - no resp. distress noted. Both IVsite @ left arm patent with D5NS at 50cc/hr infusing via Left wrist . F/C patent with good UO. Report given to Amita TANNER and Stephie TANNER. Endorsed
--- NOTE | 2020-08-10 16:50 | Pulmonolgy Critical Care Note ---
Critical Care - Asmt/Plan Problems: (1) Acute respiratory failure (2) Multifocal pneumonia (3) 2019 novel coronavirus disease (COVID-19) (4) Acute encephalopathy (5) Severe sepsis (6) Alzheimer's dementia (7) HTN (hypertension) (8) History of CVA (cerebrovascular accident) (9) BPH (benign prostatic hyperplasia) Respiratory: monitor respiratory rate, adjust FIO2 Cardiac: continue to monitor HR/BP Renal: check electrolytes Infectious Disease: check cultures, continue antibiotics Hematologic: transfuse if hgb<8.5 Neurologic: PRN Ativan, keep patient comfortable Affect: PRN ativan Disposition: keep in ICU Notes Reviewed: visiting nurse, cardio, renal Discussed with: nurses, field nurse case managerassistant casino shift manager - Objective Last 24 Hour Vital Signs Date Time Temp Pulse Resp B/P (MAP) Pulse Ox O2 Delivery O2 Flow Rate FiO2 08/10/20 16:00 67 08/10/20 16:00 97.3 67 20 139/77 (97) 99 08/10/20 16:00 Nasal Cannula 2.0 08/10/20 15:00 69 17 131/86 (101) 96 08/10/20 14:00 69 17 132/68 (89) 98 08/10/20 13:00 66 16 154/77 (102) 98 08/10/20 12:00 Nasal Cannula 2.0 08/10/20 12:00 98.3 65 19 130/73 (92) 98 08/10/20 12:00 65 08/10/20 12:00 98.3 65 19 130/73 (92) 98 08/10/20 11:00 70 21 109/68 (82) 96 08/10/20 10:00 69 20 127/94 (105) 98 08/10/20 09:00 69 16 124/77 (93) 97 08/10/20 08:00 Nasal Cannula 2.0 08/10/20 08:00 71 08/10/20 08:00 97.8 71 16 154/94 (114) 96 08/10/20 07:01 70 22 129/87 (101) 96 08/10/20 06:00 75 22 140/78 (98) 96 08/10/20 05:00 72 20 144/74 (97) 98 08/10/20 04:35 Nasal Cannula 2.0 08/10/20 04:34 72 08/10/20 04:00 98.2 68 20 143/69 (93) 100 08/10/20 03:00 72 18 125/72 (89) 100 08/10/20 02:00 70 18 128/63 (84) 100 08/10/20 01:00 68 20 110/64 (79) 100 08/10/20 00:00 66 08/10/20 00:00 Venturi Mask 6.0 08/10/20 00:00 98.5 72 20 127/69 (88) 100 08/09/20 23:00 77 20 120/78 (92) 98 08/09/20 22:00 70 18 148/72 (97) 98 08/09/20 21:00 67 20 118/73 (88) 100 08/09/20 20:00 Venturi Mask 6.0 08/09/20 20:00 70 08/09/20 20:00 98.3 71 22 121/65 (83) 100 08/09/20 19:00 66 18 121/63 (82) 100 08/09/20 18:28 3.0 08/09/20 18:25 Simple Mask 3.0 08/09/20 18:00 70 18 117/70 (86) 99 08/09/20 17:31 Venturi Mask 4.0 08/09/20 17:29 4.0 24 08/09/20 17:00 70 20 126/68 (87) 99 Status: awake Condition: critical HEENT: atraumatic, normocephalic Lungs: chest wall tender Heart: HR/BP stable Abdomen: soft, active bowel sounds Extremities: no C/C/E, edema Objective: still large secretions, failed weaning Accucheck: 106 Critical Care - Subjective ROS Limited/Unobtainable: Yes Condition: critical FI02: 24 Vent Support Breath Rate: 12 Vent Support Mode: AC Vent Tidal Volume: 600 Sputum Amount: Moderate PEEP: 0.0 PIP: 14 I&O: Intake and Output 08/09/20 08/10/20 19:00 07:00 Intake Total 995 ml 600 ml Output Total 1425 ml 700 ml Balance -430 ml -100 ml Free Water 10 ml IV Total 565 ml 600 ml Tube Feeding 420 ml Output Urine Total 1425 ml 700 ml ET-Tube: 7.2 ET Position: 25 Labs: Laboratory Tests Test 08/10/20 04:19 08/10/20 05:50 White Blood Count 8.7 K/UL (4.8-10.8) Red Blood Count 3.90 M/UL (4.70-6.10) L Hemoglobin 12.0 G/DL (14.2-18.0) L Hematocrit 36.0 % (42.0-52.0) L Mean Corpuscular Volume 92 FL (80-99) Mean Corpuscular Hemoglobin 30.8 PG (27.0-31.0) Mean Corpuscular Hemoglobin Concent 33.4 G/DL (32.0-36.0) Red Cell Distribution Width 19.3 % (11.6-14.8) H Platelet Count 443 K/UL (150-450) Mean Platelet Volume 7.4 FL (6.5-10.1) Neutrophils (%) (Auto) 77.4 % (45.0-75.0) H Lymphocytes (%) (Auto) 18.6 % (20.0-45.0) L Monocytes (%) (Auto) 3.5 % (1.0-10.0) Eosinophils (%) (Auto) 0.1 % (0.0-3.0) Basophils (%) (Auto) 0.4 % (0.0-2.0) Sodium Level 136 MMOL/L (136-145) Potassium Level 4.7 MMOL/L (3.5-5.1) Chloride Level 103 MMOL/L (98-107) Carbon Dioxide Level 24 MMOL/L (21-32) Anion Gap 9 mmol/L (5-15) Blood Urea Nitrogen 21 mg/dL (7-18) H Creatinine 0.7 MG/DL (0.55-1.30) Estimat Glomerular Filtration Rate > 60 mL/min (>60) Glucose Level 113 MG/DL (74-106) H Calcium Level 8.8 MG/DL (8.5-10.1) Phosphorus Level 3.0 MG/DL (2.5-4.9) Magnesium Level 2.8 MG/DL (1.8-2.4) H Total Bilirubin 0.4 MG/DL (0.2-1.0) Direct Bilirubin < 0.1 MG/DL (0.0-0.3) Aspartate Amino Transf (AST/SGOT) 35 U/L (15-37) Alanine Aminotransferase (ALT/SGPT) 54 U/L (12-78) Alkaline Phosphatase 249 U/L (46-116) H Total Protein 8.2 G/DL (6.4-8.2) Albumin 2.5 G/DL (3.4-5.0) L POC Whole Blood Glucose 116 MG/DL (74-106) H Kya Carreno MD Aug 10, 2020 16:50
--- NOTE | 2020-08-10 17:20 | NUR ---
NURSE NOTES: Received report from FLORES Harrison. Pt is awake, tracks with eyes, grunts/mumbles but unable to follow commands. Pt is calm. Vital signs are within normal range. Pt appears to be in no distress. SpO2 98% on 2L NC. HOB elevated, side rails x2, call light within reach, bed locked and in lowest position. Bed alarms on. R wrist 22g and R hand 22g asymptomatic and flushing well. Will continue plan of care.
--- NOTE | 2020-08-10 17:45 | NUR ---
NURSE NOTES: Called Dr. Carreno to get orders to convert Dexamethasone 6mg PO to IVP. Pt's swallow eval is pending and no NGT present. Orders received and will carry out.
[2020-08-10] MEDS: dexAMETHasone 10mg/ml Inj IV SCH (18:22)
--- NOTE | 2020-08-10 18:33 | NUR ---
NURSE NOTES: Administered PM meds. Pt remains stable at this time with no signs of distress. Vital signs within normal range. Pt SpO2 97% on 2L NC.
--- NOTE | 2020-08-10 19:15 | Internal Med Progress Note ---
Subjective Date of Service: Aug 10, 2020 Physician Name Dano Groves Attending Physician Ahsan Hodges MD Current Medications Medications (Trade) Dose Ordered Sig/Ankush Route PRN Reason Start Time Stop Time Status Last Admin Dose Admin Acetaminophen (Tylenol) 650 mg Q4H PRN GT Temp >100.5 08/01/20 12:30 08/31/20 12:29 08/03/20 10:14 Barium Sulfate (Varibar Honey) 250 ml NOW PRN MC RAD 08/10/20 07:15 08/13/20 07:08 Barium Sulfate (Varibar [place]) 240 ml NOW PRN MC RAD 08/10/20 07:15 08/13/20 07:08 Barium Sulfate (Varibar Pudding) 230 ml NOW PRN MC RAD 08/10/20 07:15 08/13/20 07:08 Barium Sulfate (Varibar Thin Liquid powder) 148 gm NOW PRN MC RAD 08/10/20 07:15 08/13/20 07:08 Dexamethasone Sodium Phosphate (Decadron 10mg/ ml Inj) 6 mg Q24H IV 08/10/20 18:00 08/11/20 18:01 08/10/20 18:22 Dextrose (Dextrose 50%) 50 ml Q30M PRN IV Hypoglycemia 07/03/20 22:45 10/01/20 22:44 Dextrose/Sodium Chloride 1,000 ml @ 50 mls/hr Q20H IV 08/09/20 16:15 09/08/20 16:14 08/10/20 12:30 Heparin Sodium (Porcine) (Heparin 5000 units/ml) 5,000 units EVERY 12 HOURS SUBQ 07/03/20 21:00 08/17/20 20:59 08/10/20 08:56 Insulin Aspart (NovoLOG) EVERY 6 HOURS SUBQ 07/13/20 06:00 10/02/20 06:29 08/10/20 00:21 Nitroglycerin (Ntg) 0.4 mg Q5M PRN SL Prn Chest Pain 08/01/20 10:15 08/31/20 10:09 Ondansetron HCl (Zofran) 4 mg Q6H PRN IVP Nausea & Vomiting 08/01/20 14:30 08/31/20 14:29 Pantoprazole (Protonix) 40 mg DAILY IV 11/7/20 09:00 08/17/20 08:59 08/10/20 08:55 Polyethylene Glycol (Miralax) 17 gm DAILYPRN PRN GT Constipation 08/01/20 10:15 08/31/20 10:14 Promethazine HCl/ Codeine (Phenergan with Codeine) 5 ml Q4H PRN GT For Cough 08/01/20 10:14 08/31/20 10:13 08/05/20 22:05 Allergies: Coded Allergies: No Known Allergies (Unverified , 04/30/12) ROS Limited/Unobtainable: Yes Subjective 79 YO M admitted with shortness of breath. Now pneumonia; previously COVID positive. Cover for Int med-Dr Hodges. Step Down unit. extubated 08/09/20. Tolerating nasal canula Objective Last Vital Signs Date Time Temp Pulse Resp B/P (MAP) Pulse Ox O2 Delivery O2 Flow Rate FiO2 08/10/20 18:31 98.3 73 19 143/79 (100) 97 08/10/20 16:00 Nasal Cannula 2.0 08/09/20 17:29 24 Laboratory Tests Test 08/10/20 04:19 08/10/20 05:50 White Blood Count 8.7 K/UL (4.8-10.8) Red Blood Count 3.90 M/UL (4.70-6.10) L Hemoglobin 12.0 G/DL (14.2-18.0) L Hematocrit 36.0 % (42.0-52.0) L Mean Corpuscular Volume 92 FL (80-99) Mean Corpuscular Hemoglobin 30.8 PG (27.0-31.0) Mean Corpuscular Hemoglobin Concent 33.4 G/DL (32.0-36.0) Red Cell Distribution Width 19.3 % (11.6-14.8) H Platelet Count 443 K/UL (150-450) Mean Platelet Volume 7.4 FL (6.5-10.1) Neutrophils (%) (Auto) 77.4 % (45.0-75.0) H Lymphocytes (%) (Auto) 18.6 % (20.0-45.0) L Monocytes (%) (Auto) 3.5 % (1.0-10.0) Eosinophils (%) (Auto) 0.1 % (0.0-3.0) Basophils (%) (Auto) 0.4 % (0.0-2.0) Sodium Level 136 MMOL/L (136-145) Potassium Level 4.7 MMOL/L (3.5-5.1) Chloride Level 103 MMOL/L (98-107) Carbon Dioxide Level 24 MMOL/L (21-32) Anion Gap 9 mmol/L (5-15) Blood Urea Nitrogen 21 mg/dL (7-18) H Creatinine 0.7 MG/DL (0.55-1.30) Estimat Glomerular Filtration Rate > 60 mL/min (>60) Glucose Level 113 MG/DL (74-106) H Calcium Level 8.8 MG/DL (8.5-10.1) Phosphorus Level 3.0 MG/DL (2.5-4.9) Magnesium Level 2.8 MG/DL (1.8-2.4) H Total Bilirubin 0.4 MG/DL (0.2-1.0) Direct Bilirubin < 0.1 MG/DL (0.0-0.3) Aspartate Amino Transf (AST/SGOT) 35 U/L (15-37) Alanine Aminotransferase (ALT/SGPT) 54 U/L (12-78) Alkaline Phosphatase 249 U/L (46-116) H Total Protein 8.2 G/DL (6.4-8.2) Albumin 2.5 G/DL (3.4-5.0) L POC Whole Blood Glucose 116 MG/DL (74-106) H Intake and Output 08/09/20 08/10/20 19:00 07:00 Intake Total 995 ml 600 ml Output Total 1425 ml 700 ml Balance -430 ml -100 ml Free Water 10 ml IV Total 565 ml 600 ml Tube Feeding 420 ml Output Urine Total 1425 ml 700 ml Objective PHYSICAL EXAMINATION: GENERAL: The patient awake with deep stimuli, open his eyes, however, cannot follow commands. The patient is on a Ventimask at this time, chronically ill-appearing. HEAD AND NECK: Pupils are equal and reactive to light. Anicteric. NECK: Supple. No JVD. LUNGS: Nasal cannula; wheezing, rhonchi, and decreased air in bases. HEART: S1, S2. Regular rhythm. Distant heart sounds. No murmur or gallop. ABDOMEN: Soft, nondistended, nontender. Positive bowel sounds. EXTREMITIES: No cyanosis, clubbing, or edema. NEUROLOGIC: Very limited secondary to the patient's status, cannot follow commands. Opens his eyes with deep stimuli and moving extremities spontaneously. Assessment/Plan Assessment/Plan ASSESSMENT: 1. Acute hypoxemic respiratory failure, most likely secondary to pneumonia and sepsis. 2. Sepsis secondary to urinary tract infection and pneumonia. 3. pneumonia=MRSA; ESBL E. coli 4. Acute kidney injury on chronic renal insufficiency. 5. Dehydration. 6. History of chronic congestive heart failure. 7. Diabetes type 2. 8. Dyslipidemia. 9. Hypertension. 10. Alzheimer's disease. 11. COVID 19 previous positive PLAN: 1. ICU 2. Dr. Carreno,=Pulmonary Critical Care 3. Dr. Cho = Inf Dis. 4. IV= D5W due to the hypernatremia and dehydration. 5. antibiotics = meropenem; S/P micafungin and zyvox 6. Code status is full code. 7. DVT prophylaxis is heparin subcutaneous. Dano Grovse MD Aug 10, 2020 19:15
--- NOTE | 2020-08-10 19:20 | NUR ---
NURSE HAND-OFF REPORT: Important Events on Shift:[Transfer from ICU to SDU] Patient Status: [Stable] Diet: [NPO] Pending Orders: [NA] Pending Results/Labs:[NA] Pending MD notification:[NA] Latest Vital Signs: Temperature 98.3 , Pulse 73 , B/P 143 /79 , Respiratory Rate 19 , O2 SAT 97 , Nasal Cannula, O2 Flow Rate 2.0 . Vital Sign Comment: [Stable] EKG Rhythm: Sinus Rhythm Rhythm change?: N MD Notified?: Grecia Matt MD Response: Latest Gonzalez Fall Score: 50 Fall Risk: High Risk Safety Measures: Call light Within Reach, Bed Alarm Zone 1, Side Rails Side Rails x3, Bed position Low and Locked. Fall Precautions: Yellow Socks Yellow Gown Door Sign Patient Fall Education Report given to [FLORES Eubanks].
--- NOTE | 2020-08-10 19:30 | NUR ---
NURSE NOTES: RECEIVED PATIENT FROM MARCIAL JORGE RN.ON 2L/NC WITH SPO2 95-99%.VITALS STABLE SINUS RHYTHM ON THE MONITOR.TIERNEY TO GRAVITY WITH ADEQUATE URINE OUTPUT.REPOSITIONED FOR COMFORT,NO OPEN WOUNDS NOTED.
[2020-08-11] MEDS: NovoLOG Insulin Flexpen SUBQ SCH ×5 (00:30→23:31)
[2020-08-11 04:32] VITALS: BP 157/90
[2020-08-11 04:50] LABS: BASOPHILS % (AUTO) 0.1 % (0.0-2.0); EOSINOPHILS % (AUTO) 0.1 % (0.0-3.0); LYMPHOCYTES % (AUTO) 19.7 % (20.0-45.0); MEAN CORPUSCULAR VOLUME 89 FL (80-99); MONOCYTES % (AUTO) 3.2 % (1.0-10.0); NEUTROPHILS % (AUTO) 76.9 % (45.0-75.0); PLATELET COUNT 531 K/UL (150-450); RED BLOOD COUNT 3.93 M/UL (4.70-6.10); RED CELL DISTRIBUTION WIDTH 18.6 % (11.6-14.8); WHITE BLOOD COUNT 6.5 K/UL (4.8-10.8)
[2020-08-11 05:06] LABS: BLOOD UREA NITROGEN 20 mg/dL (7-18); CALCIUM 8.8 MG/DL (8.5-10.1); CARBON DIOXIDE 25 MMOL/L (21-32); CHLORIDE 103 MMOL/L (98-107); CREATININE 0.7 MG/DL (0.55-1.30); POTASSIUM 4.4 MMOL/L (3.5-5.1); SODIUM 136 MMOL/L (136-145)
--- NOTE | 2020-08-11 07:30 | NUR ---
NURSE NOTES: Report received from Raimundo TANNER. Patient is on bed, sleeping, no signs of grimacing and distress noted. Patient is on NC 2L, tolerating well. Patient is currently NPO. On Wiley catheter, patent, and draining yellow urine. Patient has a R wrist 22g patent, intact, and running D5NS 50cc/hr. HOB of the bed elevated, at lowest positions, side rails up, and lowest position. Call light within reach. Patient will continue to be monitored.
--- NOTE | 2020-08-11 07:30 | NUR ---
NURSE HAND-OFF REPORT: Important Events on Shift:NONE Patient Status: STABLE Diet: NPO Pending Orders: ST EVAL Pending Results/Labs:CBC,BMP Pending MD notification:[] Latest Vital Signs: Temperature 97.2 , Pulse 88 , B/P 157 /90 , Respiratory Rate 20 , O2 SAT 96 , Nasal Cannula, O2 Flow Rate 2.0 . Vital Sign Comment: [] EKG Rhythm: Sinus Rhythm Rhythm change?: N MD Notified?: N MD Response: Latest Gonzalez Fall Score: 50 Fall Risk: High Risk Safety Measures: Call light Within Reach, Bed Alarm Zone 1, Side Rails Side Rails x3, Bed position Low and Locked. Fall Precautions: Yellow Socks Yellow Gown Door Sign Patient Fall Education Report given to FLORES Gaming/TaylorRN
--- NOTE | 2020-08-11 08:11 | Infectious Diseases Prog Note ---
Assessment/Plan 79yo M with: Respiratory code 2ry to mucus plug 07/23 Septic Shock- -recurrent Fever, recurrent, low grade;SP Leukocytosis; recurrent; increased Acute hypoxic resp failure, on NRB mask> 4l NC; back on NRB, desaturation 07/09 > intubated 07/17 Pneumonia- >HAP Hx of COVID-19 PNA 05/20/2007/28 CXR: No significant interval change in the radiographic appearance the chest compared to one day prior. 07/25 Resp cx +MRSA, nl resp bobby UCx neg BCx NTD 07/24 COVID PCR neg --07/21 CXR: Bilateral infiltrates in a peribronchovascular distribution are unchanged. Left pleural effusion is unchanged. --07/19 CXR: Persistent bilateral patchy pulmonary opacities, most prominent in the left lower lung. --07/18 ucx neg sp cx MRSA (colonizer at this point) Bcx Neg --07/13 Bcx Neg 07/10 Sp cx MRSA (Vancomycin APOLONIA 1), ESBL E.coli 07/03 BCx NTD UA - WBC, UCx Neg 07/03 COVID rapid neg; 07/06 rapid COVID PCR + (from prior infection)- not new infection Flu A/B neg CXR: L pna Resp cx MRSA 07/30 Resp cx +ESBL E.coli & PsA 08/01 BCx NTD 08/02 CXR: Small bilateral pleural effusions with moderate vascular c ongestion. Airspace consolidation in the left lower lung field may represent atelectasis however, correlate for infiltrate. This is improving when compared to the prior study. 08/03 BCx NTD 08/03 CXR: Increasing right basilar opacity, likely infiltrate, may also reflect increasing pleural fluid H/o COVID pna Tested positive 05/20/2007/03 Rapid Ag neg 07/06 Rapid Ag positive (from prior disease?) 07/24 COVID PCR neg MELANIE on CKD, improving [facility]) Non-verbal VRE and MRSA colonized Plan: Monitor off abx On dex 6mg per Primary -08/10 SP jen #10 -07/31 SP linezolid #7 -07/27 SP meropenem #14 for ESBL pna -07/21 SP Micafungin #4 -07/17 SP IV Vancomycin #15 -07/13 SP Zosyn #4 -07/06 SP Cefepime # SP Flagyl # Monitor CBC/CMP Monitor resp status Monitor temp curve and hemodynamics D/w RN Thank you for this consult. [facility] will continue to follow. Subjective Allergies: Coded Allergies: No Known Allergies (Unverified , 04/30/12) AF WBC 6.4 2L NC NAD Moved to floor now Objective Last 24 Hour Vital Signs Date Time Temp Pulse Resp B/P (MAP) Pulse Ox O2 Delivery O2 Flow Rate FiO2 08/11/20 04:32 97.2 88 20 157/90 (112) 96 08/11/20 04:25 Nasal Cannula 2.0 08/11/20 04:00 72 08/11/20 00:00 69 08/11/20 00:00 Nasal Cannula 2.0 08/10/20 20:15 85 08/10/20 20:00 97.0 66 20 123/76 (92) 96 08/10/20 20:00 Nasal Cannula 4.0 08/10/20 18:31 98.3 73 19 143/79 (100) 97 08/10/20 17:23 69 08/10/20 16:00 67 08/10/20 16:00 97.3 67 20 139/77 (97) 99 08/10/20 16:00 Nasal Cannula 2.0 08/10/20 15:00 69 17 131/86 (101) 96 08/10/20 14:00 69 17 132/68 (89) 98 08/10/20 13:00 66 16 154/77 (102) 98 08/10/20 12:00 Nasal Cannula 2.0 08/10/20 12:00 98.3 65 19 130/73 (92) 98 08/10/20 12:00 65 08/10/20 12:00 98.3 65 19 130/73 (92) 98 08/10/20 11:00 70 21 109/68 (82) 96 08/10/20 10:00 69 20 127/94 (105) 98 08/10/20 09:00 69 16 124/77 (93) 97 Height (Feet): 5 Height (Inches): 4.00 Weight (Pounds): 130 Gen: NAD in bed HEENT: NCAT CV: RRR Pulm: CTAB Abd: Soft, NTND Ext: No c/c/e Neuro: Awake, not interactive Lines: RUE PICC Laboratory Tests Test 08/11/20 00:30 08/11/20 03:20 08/11/20 05:54 POC Whole Blood Glucose 173 MG/DL (74-106) H 104 MG/DL (74-106) White Blood Count 6.5 K/UL (4.8-10.8) Red Blood Count 3.93 M/UL (4.70-6.10) L Hemoglobin 12.0 G/DL (14.2-18.0) L Hematocrit 35.0 % (42.0-52.0) L Mean Corpuscular Volume 89 FL (80-99) Mean Corpuscular Hemoglobin 30.5 PG (27.0-31.0) Mean Corpuscular Hemoglobin Concent 34.2 G/DL (32.0-36.0) Red Cell Distribution Width 18.6 % (11.6-14.8) H Platelet Count 531 K/UL (150-450) H Mean Platelet Volume 7.6 FL (6.5-10.1) Neutrophils (%) (Auto) 76.9 % (45.0-75.0) H Lymphocytes (%) (Auto) 19.7 % (20.0-45.0) L Monocytes (%) (Auto) 3.2 % (1.0-10.0) Eosinophils (%) (Auto) 0.1 % (0.0-3.0) Basophils (%) (Auto) 0.1 % (0.0-2.0) Sodium Level 136 MMOL/L (136-145) Potassium Level 4.4 MMOL/L (3.5-5.1) Chloride Level 103 MMOL/L (98-107) Carbon Dioxide Level 25 MMOL/L (21-32) Blood Urea Nitrogen 20 mg/dL (7-18) H Creatinine 0.7 MG/DL (0.55-1.30) Estimat Glomerular Filtration Rate > 60 mL/min (>60) Glucose Level 107 MG/DL (74-106) H Calcium Level 8.8 MG/DL (8.5-10.1) Current Medications Medications (Trade) Dose Ordered Sig/Ankush Route PRN Reason Start Time Stop Time Status Last Admin Dose Admin Acetaminophen (Tylenol) 650 mg Q4H PRN GT Temp >100.5 08/01/20 12:30 08/31/20 12:29 08/03/20 10:14 Barium Sulfate (Varibar Honey) 250 ml NOW PRN MC RAD 08/10/20 07:15 08/13/20 07:08 Barium Sulfate (Varibar [place]) 240 ml NOW PRN MC RAD 08/10/20 07:15 08/13/20 07:08 Barium Sulfate (Varibar Pudding) 230 ml NOW PRN MC RAD 08/10/20 07:15 08/13/20 07:08 Barium Sulfate (Varibar Thin Liquid powder) 148 gm NOW PRN MC RAD 08/10/20 07:15 08/13/20 07:08 Dexamethasone Sodium Phosphate (Decadron 10mg/ ml Inj) 6 mg Q24H IV 08/10/20 18:00 08/11/20 18:01 08/10/20 18:22 Dextrose (Dextrose 50%) 50 ml Q30M PRN IV Hypoglycemia 07/03/20 22:45 10/01/20 22:44 Dextrose/Sodium Chloride 1,000 ml @ 50 mls/hr Q20H IV 08/09/20 16:15 09/08/20 16:14 08/10/20 12:30 Heparin Sodium (Porcine) (Heparin 5000 units/ml) 5,000 units EVERY 12 HOURS SUBQ 07/03/20 21:00 08/17/20 20:59 08/10/20 22:00 Insulin Aspart (NovoLOG) EVERY 6 HOURS SUBQ 07/13/20 06:00 10/02/20 06:29 08/11/20 00:30 Nitroglycerin (Ntg) 0.4 mg Q5M PRN SL Prn Chest Pain 08/01/20 10:15 08/31/20 10:09 Ondansetron HCl (Zofran) 4 mg Q6H PRN IVP Nausea & Vomiting 08/01/20 14:30 08/31/20 14:29 Pantoprazole (Protonix) 40 mg DAILY IV 07/18/20 09:00 08/17/20 08:59 08/10/20 08:55 Polyethylene Glycol (Miralax) 17 gm DAILYPRN PRN GT Constipation 08/01/20 10:15 08/31/20 10:14 Promethazine HCl/ Codeine (Phenergan with Codeine) 5 ml Q4H PRN GT For Cough 08/01/20 10:14 08/31/20 10:13 08/05/20 22:05 Lorie Ramirez M.D. Aug 11, 2020 08:11
[2020-08-11] MEDS: D5NS 1,000 ML IV SCH (08:25)
[2020-08-11] MEDS: Pantoprazole Inj IV SCH (08:25)
[2020-08-11] MEDS: Heparin 5000 units/ml inj SUBQ SCH ×2 (08:27→20:10)
--- NOTE | 2020-08-11 10:37 | Pulmonolgy Critical Care Note ---
Critical Care - Asmt/Plan Problems: (1) Acute respiratory failure (2) Multifocal pneumonia (3) 2019 novel coronavirus disease (COVID-19) (4) Acute encephalopathy (5) Severe sepsis (6) Alzheimer's dementia (7) HTN (hypertension) (8) History of CVA (cerebrovascular accident) (9) BPH (benign prostatic hyperplasia) Respiratory: monitor respiratory rate, adjust FIO2, CXR Cardiac: continue to monitor HR/BP Renal: F/U I&O, keep IV fluid, check electrolytes Infectious Disease: check cultures, continue antibiotics Gastrointestinal: hold feedings Endocrine: monitor blood sugar Hematologic: monitor H/H, transfuse if hgb<8.5 Neurologic: PRN Ativan, PRN Morphine, keep patient comfortable Affect: PRN ativan Disposition: keep in ICU Time Spent (Minutes): 40 Notes 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, 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, 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 Discussed with: nurses, consultants, patient case managermanager media relations - Objective Last 24 Hour Vital Signs Date Time Temp Pulse Resp B/P (MAP) Pulse Ox O2 Delivery O2 Flow Rate FiO2 08/11/20 07:52 60 08/11/20 04:32 97.2 88 20 157/90 (112) 96 08/11/20 04:25 Nasal Cannula 2.0 08/11/20 04:00 72 08/11/20 00:00 69 08/11/20 00:00 Nasal Cannula 2.0 08/10/20 20:15 85 08/10/20 20:00 97.0 66 20 123/76 (92) 96 08/10/20 20:00 Nasal Cannula 4.0 08/10/20 18:31 98.3 73 19 143/79 (100) 97 08/10/20 17:23 69 08/10/20 16:00 67 08/10/20 16:00 97.3 67 20 139/77 (97) 99 08/10/20 16:00 Nasal Cannula 2.0 08/10/20 15:00 69 17 131/86 (101) 96 08/10/20 14:00 69 17 132/68 (89) 98 08/10/20 13:00 66 16 154/77 (102) 98 08/10/20 12:00 Nasal Cannula 2.0 08/10/20 12:00 98.3 65 19 130/73 (92) 98 11/30/20 12:00 65 08/10/20 12:00 98.3 65 19 130/73 (92) 98 08/10/20 11:00 70 21 109/68 (82) 96 Status: awake Condition: critical HEENT: atraumatic, normocephalic Neck: full ROM Lungs: rales, rhonchi Heart: HR/BP stable Abdomen: soft, non-tender Extremities: no C/C/E Objective: still large secretions, failed weaning Accucheck: 104 Critical Care - Subjective ROS Limited/Unobtainable: Yes Condition: critical FI02: 24 Vent Support Breath Rate: 12 Vent Support Mode: AC Vent Tidal Volume: 600 Sputum Amount: Moderate PEEP: 0.0 PIP: 14 I&O: Intake and Output 08/10/20 08/11/20 19:00 07:00 Intake Total 500 ml 450 ml Output Total 540 ml 900 ml Balance -40 ml -450 ml IV Total 500 ml 450 ml Output Urine Total 540 ml 900 ml CXR: 1. Tiny residual left pleural effusion is improved from prior study. Maybe a tiny right pleural effusion. 2. Left lung base opacities have slightly improved. Mild interstitial thickening. Atelectasis in the right lower lung. ET-Tube: 7.2 ET Position: 25 Labs: Laboratory Tests Test 08/11/20 00:30 08/11/20 03:20 08/11/20 05:54 POC Whole Blood Glucose 173 MG/DL (74-106) H 104 MG/DL (74-106) White Blood Count 6.5 K/UL (4.8-10.8) Red Blood Count 3.93 M/UL (4.70-6.10) L Hemoglobin 12.0 G/DL (14.2-18.0) L Hematocrit 35.0 % (42.0-52.0) L Mean Corpuscular Volume 89 FL (80-99) Mean Corpuscular Hemoglobin 30.5 PG (27.0-31.0) Mean Corpuscular Hemoglobin Concent 34.2 G/DL (32.0-36.0) Red Cell Distribution Width 18.6 % (11.6-14.8) H Platelet Count 531 K/UL (150-450) H Mean Platelet Volume 7.6 FL (6.5-10.1) Neutrophils (%) (Auto) 76.9 % (45.0-75.0) H Lymphocytes (%) (Auto) 19.7 % (20.0-45.0) L Monocytes (%) (Auto) 3.2 % (1.0-10.0) Eosinophils (%) (Auto) 0.1 % (0.0-3.0) Basophils (%) (Auto) 0.1 % (0.0-2.0) Sodium Level 136 MMOL/L (136-145) Potassium Level 4.4 MMOL/L (3.5-5.1) Chloride Level 103 MMOL/L (98-107) Carbon Dioxide Level 25 MMOL/L (21-32) Blood Urea Nitrogen 20 mg/dL (7-18) H Creatinine 0.7 MG/DL (0.55-1.30) Estimat Glomerular Filtration Rate > 60 mL/min (>60) Glucose Level 107 MG/DL (74-106) H Calcium Level 8.8 MG/DL (8.5-10.1) Kya Carreno MD Aug 11, 2020 10:37
--- NOTE | 2020-08-11 11:48 | Cardiac Electrophysiology PN ---
Assessment/Plan Assessment/Plan 1. Accelerated junctional rhythm. Ruled out for DE Echo showed ejection fraction of 55%. 2. Long run of 31 beats of Nonsustained VT on 07/14/2020. Cardiac cath after stabilization. 3. Aníbal 30, Asystole while on the Vent due to resp failure/ likely mucus plug . S/P Code Off midodrine 4. Respiratory failure, on antibiotic Extubated 08/09/20 5. Septic shock. Off Levophed 6. History of previous COVID infection in May 2020 and active Covid Now negative again and off isolation. 7. Dementia. 8. Dysphagia, Failed swallow eval DW RN Subjective Subjective Had 31 beats of VT on 07/14/20 and 5 beats 07/19/20 Coded on 07/23/20 as sat dropped to 20% and got aníbal 30s and PEA and pulseless Failed Swallow eval Transferred out of ICU after extubated 08/09/20 Objective Last 24 Hour Vital Signs Date Time Temp Pulse Resp B/P (MAP) Pulse Ox O2 Delivery O2 Flow Rate FiO2 08/11/20 08:00 Nasal Cannula 2.0 08/11/20 07:52 60 08/11/20 04:32 97.2 88 20 157/90 (112) 96 08/11/20 04:25 Nasal Cannula 2.0 08/11/20 04:00 72 08/11/20 00:00 69 08/11/20 00:00 Nasal Cannula 2.0 08/10/20 20:15 85 08/10/20 20:00 97.0 66 20 123/76 (92) 96 08/10/20 20:00 Nasal Cannula 4.0 08/10/20 18:31 98.3 73 19 143/79 (100) 97 08/10/20 17:23 69 08/10/20 16:00 67 08/10/20 16:00 97.3 67 20 139/77 (97) 99 08/10/20 16:00 Nasal Cannula 2.0 08/10/20 15:00 69 17 131/86 (101) 96 08/10/20 14:00 69 17 132/68 (89) 98 08/10/20 13:00 66 16 154/77 (102) 98 08/10/20 12:00 Nasal Cannula 2.0 08/10/20 12:00 98.3 65 19 130/73 (92) 98 08/10/20 12:00 65 08/10/20 12:00 98.3 65 19 130/73 (92) 98 Intake and Output 08/10/20 08/11/20 19:00 07:00 Intake Total 500 ml 450 ml Output Total 540 ml 900 ml Balance -40 ml -450 ml IV Total 500 ml 450 ml Output Urine Total 540 ml 900 ml Laboratory Tests Test 08/11/20 00:30 08/11/20 03:20 08/11/20 05:54 08/11/20 11:41 POC Whole Blood Glucose 173 MG/DL (74-106) H 104 MG/DL (74-106) 104 MG/DL (74-106) White Blood Count 6.5 K/UL (4.8-10.8) Red Blood Count 3.93 M/UL (4.70-6.10) L Hemoglobin 12.0 G/DL (14.2-18.0) L Hematocrit 35.0 % (42.0-52.0) L Mean Corpuscular Volume 89 FL (80-99) Mean Corpuscular Hemoglobin 30.5 PG (27.0-31.0) Mean Corpuscular Hemoglobin Concent 34.2 G/DL (32.0-36.0) Red Cell Distribution Width 18.6 % (11.6-14.8) H Platelet Count 531 K/UL (150-450) H Mean Platelet Volume 7.6 FL (6.5-10.1) Neutrophils (%) (Auto) 76.9 % (45.0-75.0) H Lymphocytes (%) (Auto) 19.7 % (20.0-45.0) L Monocytes (%) (Auto) 3.2 % (1.0-10.0) Eosinophils (%) (Auto) 0.1 % (0.0-3.0) Basophils (%) (Auto) 0.1 % (0.0-2.0) Sodium Level 136 MMOL/L (136-145) Potassium Level 4.4 MMOL/L (3.5-5.1) Chloride Level 103 MMOL/L (98-107) Carbon Dioxide Level 25 MMOL/L (21-32) Blood Urea Nitrogen 20 mg/dL (7-18) H Creatinine 0.7 MG/DL (0.55-1.30) Estimat Glomerular Filtration Rate > 60 mL/min (>60) Glucose Level 107 MG/DL (74-106) H Calcium Level 8.8 MG/DL (8.5-10.1) Objective HEAD AND NECK: No JVD. LUNGS: Coarse rhonchi. CARDIOVASCULAR: Irregular S1 and S2 with no gallop. ABDOMEN: Soft. EXTREMITIES: No pitting edema. Klever Matt MD Aug 11, 2020 11:48
[2020-08-11 12:00] VITALS: BP 137/87
--- NOTE | 2020-08-11 12:02 | Nephrology Progress Note ---
Assessment/Plan Problem List: (1) Dehydration (2) MELANIE (acute kidney injury) (3) Renal failure (ARF), acute on chronic (4) Hypoxia (5) Acute encephalopathy (6) Electrolyte imbalance Assessment 79-year-old male is admitted with acute hypoxic respiratory failure most likely secondary to pneumonia and sepsis, UTI. Acute on chronic renal failure Dehydration Electrolyte imbalances, hypernatremia Hypoalbuminemia Diabetes type 2 History of congestive heart failure Hypertension Hyperlipemia Alzheimer's Previous COVID-19 infection in May 2020 Plan August 11: Remain extubated on nasal cannula. Labs reviewed. Renal parameters stable. August 10: Discussed with RN. Patient now extubated. On nasal cannula. Renal parameters stable. Continue per consultants. August 09: Discussed with FLORES Holliday. Weaning in process. It seems like patient is tolerating better. Labs reviewed. Continue per consultants. August 08: Remains in ICU. Status unchanged. Labs and medication list reviewed. Remains full code. Weaning continues to fail. August 07: Remains in ICU. Remains intubated. Remains full code. Continues to be on weaning trials. Renal parameters are stable. August 06: Patient remains in ICU. Full code. Intubated. Fails weaning. Labs reviewed. Stable from renal standpoint of view. Discussed with RN. August 05: Labs reviewed. Discussed with RN. Abnormal electrolyte addressed. Remains intubated on ventilator. Continue per consultants. August 04: Labs reviewed. Discussed with RN. Stable from renal standpoint of view. Main issue is weaning from ventilator that keeps failing. Continue per consultants. August 03: Labs reviewed. Discussed with RN. Stable from renal standpoint of view. Continue per consultants. August 02: Patient seen and discussed with RN. Labs reviewed. Remains intubated. Trial of weaning this being attempted. Continue per consultants. August 01: Remains intubated. Labs reviewed. Renal parameters stable. Continue per consultants. July 31: Remains on mechanical ventilation. Labs reviewed. Abnormal electrolytes addressed. Stable from renal standpoint of view. July 30: Remains intubated. Remains full code. Labs reviewed. Low phosphorus replaced. Continue to monitor renal parameters. Continue per consultants. July 29: Failed weaning. Remains intubated. Remains full closed. Labs reviewed. Stable from renal standpoint view. July 28: Remains in ICU. Remains full code. Labs are reviewed. Phosphorus supplement given. Continue per consultants. July 27: Remains in ICU. Full code. Labs reviewed. Remains intubated. Stable renal parameters. July 26: In ICU. Full code. Discussed with RN. Stable renal parameters. July 25: Seen in ICU. Discussed with FLORES Holliday. Flomax discontinued. Labs reviewed. Stable from renal standpoint of view. July 24: Seen in ICU. Discussed with FLORES Holliday. Remains on pressor. Electrolyte abnormalities noted and addressed. Continue per consultants. Patient remains full code. July 23: Seen in ICU. Discussed with FLORES Barrera. Blood pressure remains a little requiring pressors. Labs reviewed. Stable renal parameters. Continue per consultants. July 22: Remains intubated. Full code. Blood pressure borderline low. Will increase midodrine dose. Discussed with RN. Continue to monitor renal parameters and electrolytes. July 21: Intubated. Full code. Labs reviewed. Stable from renal st andpoint of view. Continue per consultants. July 20: Remains intubated. Full code. Labs reviewed. Electrolytes within normal limit. Continue per consultants. July 19: In ICU. Remains intubated on ventilator. Remains full code. Low potassium addressed. Blood pressure fluctuating. Continue per consultants. July 18: Patient in ICU. Intubated on ventilator. On 6 mics of Levophed. Will give 100 cc albumin 25%. K-Phos IV ordered. Continue per consultants. Continue monitor renal parameters and electrolytes. July 17: Status unchanged. Transfer to [facility] for seizure. Stable from renal standpoint to view. Continue per consultants. July 16: Status quo. Labs reviewed. Renal parameters stable. Continue per consultants. July 15: On nonrebreather mask. Labs reviewed. Renal parameters stable.Continue per quality control assessor. Clinically unchanged. July 14: On nonrebreather mask. Inflammatory markers gradually declining. Renal parameters stable. Continue per pulmonary. July 13: Remains on nonrebreather mask. Inflammatory markers remain elevated. Renal parameters somewhat stable. Continue per pulmonary and ID. Remains full code. July 12: Patient on nonrebreather mask. Labs noted. Serum creatinine down to 1.3. Continue per consultants. July 11: Patient on nonrebreather mask. Transfer to telemetry when seen this morning. Labs noted. Continue per consultants. Serum creatinine erin to 1.7. Continue to monitor renal parameters. Continue to monitor vancomycin level July 10: Patient is not doing well clinically. Mild respiratory distress. ABG noted. Somewhat hypoxic. CBC and chemistry panel ordered. Discussed with FLORES Cho. Will defer to pulmonary management to specialist. Continue per ID. Renal parameters remained stable as of July 09. July 09: Labs reviewed. Renal parameters stable. Continue per consultants. July 08: Labs reviewed. Potassium via NG tube ordered. IV fluids stopped. Continue per consultants. July 07: Labs reviewed. Low potassium and low phosphorus replaced. Continue per consultants. Remains stable from renal standpoint of view. July 06: Patient remains n.p.o. IV fluid down to 50 cc an hour. Potassium supplement intravenously ordered. Continue per consultants. Previously: Patient is n.p.o., will continue on IV fluid of D5W 75 cc an hour We will monitor electrolytes and renal parameters Avoid nephrotoxic's Start p.o. when he clears by speech therapist, meanwhile aspiration precautions Keep the blood pressure and blood sugar in check Per orders Subjective ROS Limited/Unobtainable: No Constitutional: Reports: malaise Objective Objective Last 24 Hour Vital Signs Date Time Temp Pulse Resp B/P (MAP) Pulse Ox O2 Delivery O2 Flow Rate FiO2 08/11/20 08:00 Nasal Cannula 2.0 08/11/20 07:52 60 08/11/20 04:32 97.2 88 20 157/90 (112) 96 08/11/20 04:25 Nasal Cannula 2.0 08/11/20 04:00 72 08/11/20 00:00 69 08/11/20 00:00 Nasal Cannula 2.0 08/10/20 20:15 85 08/10/20 20:00 97.0 66 20 123/76 (92) 96 08/10/20 20:00 Nasal Cannula 4.0 08/10/20 18:31 98.3 73 19 143/79 (100) 97 08/10/20 17:23 69 08/10/20 16:00 67 08/10/20 16:00 97.3 67 20 139/77 (97) 99 08/10/20 16:00 Nasal Cannula 2.0 08/10/20 15:00 69 17 131/86 (101) 96 08/10/20 14:00 69 17 132/68 (89) 98 08/10/20 13:00 66 16 154/77 (102) 98 Intake and Output 08/10/20 08/11/20 19:00 07:00 Intake Total 500 ml 450 ml Output Total 540 ml 900 ml Balance -40 ml -450 ml IV Total 500 ml 450 ml Output Urine Total 540 ml 900 ml Laboratory Tests 08/11/20 00:30: POC Whole Blood Glucose 173H 08/11/20 03:20: White Blood Count 6.5, Red Blood Count 3.93L, Hemoglobin 12.0L, Hematocrit 35.0L , Mean Corpuscular Volume 89, Mean Corpuscular Hemoglobin 30.5, Mean Corpuscular Hemoglobin Concent 34.2, Red Cell Distribution Width 18.6H, Platelet Count 531H, Mean Platelet Volume 7.6, Neutrophils (%) (Auto) 76.9H, Lymphocytes (%) (Auto) 19.7L, Monocytes (%) (Auto) 3.2, Eosinophils (%) (Auto) 0.1, Basophils (%) (Auto) 0.1, Sodium Level 136, Potassium Level 4.4, Chloride Level 103, Carbon Dioxide Level 25, Blood Urea Nitrogen 20H, Creatinine 0.7, Estimat Glomerular Filtration Rate > 60, Glucose Level 107H, Calcium Level 8.8 08/11/20 05:54: POC Whole Blood Glucose 104 08/11/20 11:41: POC Whole Blood Glucose 104 Height (Feet): 5 Height (Inches): 4.00 Weight (Pounds): 130 General Appearance: no apparent distress EENT: other - On oxygen by nasal cannula Cardiovascular: normal rate Respiratory/Chest: decreased breath sounds Abdomen: distended Tino Connors MD Aug 11, 2020 12:02
--- NOTE | 2020-08-11 14:10 | NUR ---
CASE MANAGEMENT:REVIEW 08/11/20 SI: ACUTE RESPIRATORY FAILURE. PNA EXTUBATED 08/09 97.7 60 18 137/87 97% ON 2L/NC H/H-12.0/35.0 IS: IV DECADRON Q24 IVF@50/HR IV PROTONIX QD HEPARIN SQ Q12 : STEP DOWN UNIT PLAN: SWALLOW EVAL
[2020-08-11 16:00] VITALS: BP 130/84
--- NOTE | 2020-08-11 17:29 | Internal Med Progress Note ---
Subjective Date of Service: Aug 11, 2020 Physician Name Dano Groves Attending Physician Ahsan Hodges MD Current Medications Medications (Trade) Dose Ordered Sig/Ankush Route PRN Reason Start Time Stop Time Status Last Admin Dose Admin Acetaminophen (Tylenol) 650 mg Q4H PRN GT Temp >100.5 08/01/20 12:30 08/31/20 12:29 08/03/20 10:14 Barium Sulfate (Varibar Honey) 250 ml NOW PRN MC RAD 08/10/20 07:15 08/13/20 07:08 Barium Sulfate (Varibar Ketchum) 240 ml NOW PRN MC RAD 08/10/20 07:15 08/13/20 07:08 Barium Sulfate (Varibar Pudding) 230 ml NOW PRN MC RAD 08/10/20 07:15 08/13/20 07:08 Barium Sulfate (Varibar Thin Liquid powder) 148 gm NOW PRN MC RAD 08/10/20 07:15 08/13/20 07:08 Dexamethasone Sodium Phosphate (Decadron 10mg/ ml Inj) 6 mg Q24H IV 08/10/20 18:00 08/11/20 18:01 08/10/20 18:22 Dextrose (Dextrose 50%) 50 ml Q30M PRN IV Hypoglycemia 07/03/20 22:45 10/01/20 22:44 Dextrose/Sodium Chloride 1,000 ml @ 50 mls/hr Q20H IV 08/09/20 16:15 09/08/20 16:14 08/11/20 08:25 Heparin Sodium (Porcine) (Heparin 5000 units/ml) 5,000 units EVERY 12 HOURS SUBQ 07/03/20 21:00 08/17/20 20:59 08/11/20 08:27 Insulin Aspart (NovoLOG) EVERY 6 HOURS SUBQ 07/13/20 06:00 10/02/20 06:29 08/11/20 00:30 Nitroglycerin (Ntg) 0.4 mg Q5M PRN SL Prn Chest Pain 08/01/20 10:15 08/31/20 10:09 Ondansetron HCl (Zofran) 4 mg Q6H PRN IVP Nausea & Vomiting 08/01/20 14:30 08/31/20 14:29 Pantoprazole (Protonix) 40 mg DAILY IV 11/7/20 09:00 08/17/20 08:59 08/11/20 08:25 Polyethylene Glycol (Miralax) 17 gm DAILYPRN PRN GT Constipation 08/01/20 10:15 08/31/20 10:14 Promethazine HCl/ Codeine (Phenergan with Codeine) 5 ml Q4H PRN GT For Cough 08/01/20 10:14 08/31/20 10:13 08/05/20 22:05 Allergies: Coded Allergies: No Known Allergies (Unverified , 04/30/12) ROS Limited/Unobtainable: Yes Subjective 79 YO M admitted with shortness of breath. Now pneumonia; previously COVID positive. Cover for Int med-Dr Hodges. Step Down unit. extubated 08/09/20. Tolerating nasal canula Objective Last Vital Signs Date Time Temp Pulse Resp B/P (MAP) Pulse Ox O2 Delivery O2 Flow Rate FiO2 08/11/20 16:00 Nasal Cannula 2.0 08/11/20 16:00 97.3 66 16 130/84 (99) 95 08/09/20 17:29 24 Laboratory Tests Test 08/11/20 00:30 08/11/20 03:20 08/11/20 05:54 08/11/20 11:41 POC Whole Blood Glucose 173 MG/DL (74-106) H 104 MG/DL (74-106) 104 MG/DL (74-106) White Blood Count 6.5 K/UL (4.8-10.8) Red Blood Count 3.93 M/UL (4.70-6.10) L Hemoglobin 12.0 G/DL (14.2-18.0) L Hematocrit 35.0 % (42.0-52.0) L Mean Corpuscular Volume 89 FL (80-99) Mean Corpuscular Hemoglobin 30.5 PG (27.0-31.0) Mean Corpuscular Hemoglobin Concent 34.2 G/DL (32.0-36.0) Red Cell Distribution Width 18.6 % (11.6-14.8) H Platelet Count 531 K/UL (150-450) H Mean Platelet Volume 7.6 FL (6.5-10.1) Neutrophils (%) (Auto) 76.9 % (45.0-75.0) H Lymphocytes (%) (Auto) 19.7 % (20.0-45.0) L Monocytes (%) (Auto) 3.2 % (1.0-10.0) Eosinophils (%) (Auto) 0.1 % (0.0-3.0) Basophils (%) (Auto) 0.1 % (0.0-2.0) Sodium Level 136 MMOL/L (136-145) Potassium Level 4.4 MMOL/L (3.5-5.1) Chloride Level 103 MMOL/L (98-107) Carbon Dioxide Level 25 MMOL/L (21-32) Blood Urea Nitrogen 20 mg/dL (7-18) H Creatinine 0.7 MG/DL (0.55-1.30) Estimat Glomerular Filtration Rate > 60 mL/min (>60) Glucose Level 107 MG/DL (74-106) H Calcium Level 8.8 MG/DL (8.5-10.1) Intake and Output 08/10/20 08/11/20 19:00 07:00 Intake Total 500 ml 450 ml Output Total 540 ml 900 ml Balance -40 ml -450 ml IV Total 500 ml 450 ml Output Urine Total 540 ml 900 ml Objective PHYSICAL EXAMINATION: GENERAL: The patient awake with deep stimuli, open his eyes, however, cannot follow commands. The patient is on a Ventimask at this time, chronically ill-appearing. HEAD AND NECK: Pupils are equal and reactive to light. Anicteric. NECK: Supple. No JVD. LUNGS: Nasal cannula; wheezing, rhonchi, and decreased air in bases. HEART: S1, S2. Regular rhythm. Distant heart sounds. No murmur or gallop. ABDOMEN: Soft, nondistended, nontender. Positive bowel sounds. EXTREMITIES: No cyanosis, clubbing, or edema. NEUROLOGIC: Very limited secondary to the patient's status, cannot follow commands. Opens his eyes with deep stimuli and moving extremities spontaneously. Assessment/Plan Assessment/Plan ASSESSMENT: 1. Acute hypoxemic respiratory failure, most likely secondary to pneumonia and sepsis. 2. Sepsis secondary to urinary tract infection and pneumonia. 3. pneumonia=MRSA; ESBL E. coli 4. Acute kidney injury on chronic renal insufficiency. 5. Dehydration. 6. History of chronic congestive heart failure. 7. Diabetes type 2. 8. Dyslipidemia. 9. Hypertension. 10. Alzheimer's disease. 11. COVID 19 previous positive PLAN: 1. ICU 2. Dr. Carreno,=Pulmonary Critical Care 3. Dr. Cho = Inf Dis. 4. IV= D5W due to the hypernatremia and dehydration. 5. antibiotics = meropenem; S/P micafungin and zyvox 6. Code status is full code. 7. DVT prophylaxis is heparin subcutaneous. Dano Groves MD Aug 11, 2020 17:29
[2020-08-11] MEDS: dexAMETHasone 10mg/ml Inj IV SCH (18:52)
--- NOTE | 2020-08-11 19:10 | NUR ---
NURSE NOTES: Received report from FLORES Gaming. Pt seen lying in bed in semi- allen's position. Pt is awake and verbal, follow simple commands but sometimes resisting to care. Pt open eyes spontaneously. No facial grimacing noted. Pt connected to NC at 2L o2 sat- 95%. Pt on NPO per previous shift pt failed ST eval. No facial grimace noted. Pt on ziegler draining yellow urine. With Right hand g22 running d5NS at 50ml/hr and has RFA g22 intact and patent. Bed in lowest position.Call light within reach. Continue to plan of care.
--- NOTE | 2020-08-11 19:29 | NUR ---
NURSE HAND-OFF REPORT: Important Events on Shift: Patient Status: stable Diet: NPO Pending Orders: Pending Results/Labs: Pending MD notification: Latest Vital Signs: Temperature 97.3 , Pulse 66 , B/P 130 /84 , Respiratory Rate 16 , O2 SAT 95 , Nasal Cannula, O2 Flow Rate 2.0 . Vital Sign Comment: EKG Rhythm: Sinus Rhythm Rhythm change?: N MD Notified?: Grecia Matt MD Response: Latest Gonzalez Fall Score: 50 Fall Risk: High Risk Safety Measures: Call light Within Reach, Bed Alarm Zone 1, Side Rails Side Rails x3, Bed position Low and Locked. Fall Precautions: Yellow Socks Yellow Gown Door Sign Patient Fall Education Report given to FLORES Alcocer.
--- NOTE | 2020-08-11 23:13 | NUR ---
NURSE NOTES: Seen pt sleeping comfortably in bed. no signs of respiratory distress, o2 sat- 100%. Continue to plan of care.
--- NOTE | 2020-08-12 01:19 | NUR ---
NURSE NOTES: Sponge bath given, No bowel movement noted. Not in apparent distress. Pt resisting to care. Provide calm environment. Continue to plan of care.
[2020-08-12] MEDS: D5NS 1,000 ML IV SCH (04:15)
[2020-08-12] MEDS: NovoLOG Insulin Flexpen SUBQ SCH ×3 (05:29→17:35)
[2020-08-12 06:01] LABS: BASOPHILS % (AUTO) 0.3 % (0.0-2.0); HEMATOCRIT 35.9 % (42.0-52.0); LYMPHOCYTES % (AUTO) 24.9 % (20.0-45.0); MEAN CORPUSCULAR VOLUME 91 FL (80-99); MONOCYTES % (AUTO) 3.8 % (1.0-10.0); NEUTROPHILS % (AUTO) 71.1 % (45.0-75.0); PLATELET COUNT 517 K/UL (150-450); RED BLOOD COUNT 3.96 M/UL (4.70-6.10); RED CELL DISTRIBUTION WIDTH 17.6 % (11.6-14.8); WHITE BLOOD COUNT 6.2 K/UL (4.8-10.8)
[2020-08-12 06:05] LABS: ANION GAP 7 mmol/L (5-15); BLOOD UREA NITROGEN 20 mg/dL (7-18); CALCIUM 8.3 MG/DL (8.5-10.1); CARBON DIOXIDE 26 MMOL/L (21-32); CHLORIDE 103 MMOL/L (98-107); CREATININE 0.8 MG/DL (0.55-1.30); POTASSIUM 4.1 MMOL/L (3.5-5.1); SODIUM 136 MMOL/L (136-145)
--- NOTE | 2020-08-12 07:00 | NUR ---
NURSE HAND-OFF REPORT: Important Events on Shift: Pt is stable, No bowel movement last- 08/10. Patient Status: Stable Diet: NPO Pending Orders: None Pending Results/Labs: None Pending MD notification: None Latest Vital Signs: Temperature 97.3 , Pulse 66 , B/P 130 /84 , Respiratory Rate 16 , O2 SAT 95 , Nasal Cannula, O2 Flow Rate 2.0 . Vital Sign Comment: WNL EKG Rhythm: Sinus Rhythm Rhythm change?: N MD Notified?: Grecia Matt MD Response: Latest Gonzalez Fall Score: 60 Fall Risk: High Risk Safety Measures: Call light Within Reach, Bed Alarm Zone 1, Side Rails Side Rails x3, Bed position Low and Locked. Fall Precautions: Yellow Socks Yellow Gown Door Sign Patient Fall Education Report given to [Luz Marina [employer]].
--- NOTE | 2020-08-12 07:19 | NUR ---
NURSE NOTES:handoff received from FLORES Alcocer. Patient received awake and alert and resting in bed, patient follows basic commands but is aphasic. No grimacing or signs of distress noted. Patient is on nasal cannula at 2 liters satting at 100% IV site is right hand 22g running D%NS@50ML/HR iv site clean dry and intact. Patient has ziegler catheter patent and draining to gravity. Patient is on p200 mattress. Isolation for contact are in place as are fall and aspiration precautions, patient is also NPO except ice chips and meds due to failed swallow eval. bed in the low and locked position with call light at patient bedside. Will follow plan of care.
[2020-08-12 08:00] VITALS: BP 131/82
--- NOTE | 2020-08-12 08:11 | Infectious Diseases Prog Note ---
Assessment/Plan 79yo M with: Respiratory code 2ry to mucus plug 07/23 Septic Shock- -recurrent Fever, recurrent, low grade;SP Leukocytosis; recurrent; increased Acute hypoxic resp failure, on NRB mask> 4l NC; back on NRB, desaturation 07/09 > intubated 07/17 Pneumonia- >HAP Hx of COVID-19 PNA 05/20/2007/28 CXR: No significant interval change in the radiographic appearance the chest compared to one day prior. 07/25 Resp cx +MRSA, nl resp bobby UCx neg BCx NTD 07/24 COVID PCR neg --07/21 CXR: Bilateral infiltrates in a peribronchovascular distribution are unchanged. Left pleural effusion is unchanged. --07/19 CXR: Persistent bilateral patchy pulmonary opacities, most prominent in the left lower lung. --07/18 ucx neg sp cx MRSA (colonizer at this point) Bcx Neg --07/13 Bcx Neg 07/10 Sp cx MRSA (Vancomycin APOLONIA 1), ESBL E.coli 07/03 BCx NTD UA - WBC, UCx Neg 07/03 COVID rapid neg; 07/06 rapid COVID PCR + (from prior infection)- not new infection Flu A/B neg CXR: L pna Resp cx MRSA 07/30 Resp cx +ESBL E.coli & PsA 08/01 BCx NTD 08/02 CXR: Small bilateral pleural effusions with moderate vascular c ongestion. Airspace consolidation in the left lower lung field may represent atelectasis however, correlate for infiltrate. This is improving when compared to the prior study. 08/03 BCx NTD 08/03 CXR: Increasing right basilar opacity, likely infiltrate, may also reflect increasing pleural fluid H/o COVID pna Tested positive 05/20/2007/03 Rapid Ag neg 07/06 Rapid Ag positive (from prior disease?) 07/24 COVID PCR neg MELANIE on CKD, improving SNF resident (edchristal rosas) Non-verbal VRE and MRSA colonized Plan: Cont to monitor off abx -08/10 SP jen #10 -07/31 SP linezolid #7 -07/27 SP meropenem #14 for ESBL pna -07/21 SP Micafungin #4 -07/17 SP IV Vancomycin #15 -07/13 SP Zosyn #4 -07/06 SP Cefepime # SP Flagyl # Monitor CBC/CMP Monitor resp status Monitor temp curve and hemodynamics D/w RN Thank you for this consult. [facility] will continue to follow. Subjective Allergies: Coded Allergies: No Known Allergies (Unverified , 04/30/12) AF WBC 6.2 2L NC NAD Objective Last 24 Hour Vital Signs Date Time Temp Pulse Resp B/P (MAP) Pulse Ox O2 Delivery O2 Flow Rate FiO2 08/12/20 04:00 Nasal Cannula 2.0 08/12/20 04:00 66 08/12/20 00:07 72 08/12/20 00:00 Nasal Cannula 2.0 08/11/20 20:00 Nasal Cannula 2.0 08/11/20 20:00 67 08/11/20 16:00 Nasal Cannula 2.0 08/11/20 16:00 97.3 66 16 130/84 (99) 95 08/11/20 15:43 59 08/11/20 12:00 Nasal Cannula 2.0 08/11/20 12:00 Nasal Cannula 2.0 08/11/20 12:00 64 08/11/20 12:00 97.7 60 18 137/87 (104) 97 Height (Feet): 5 Height (Inches): 4.00 Weight (Pounds): 130 Gen: NAD in bed HEENT: NCAT CV: RRR Pulm: CTAB Abd: Soft, NTND Ext: No c/c/e Neuro: Awake, not interactive Lines: RUE PICC Laboratory Tests Test 08/11/20 11:41 08/11/20 17:37 08/11/20 23:31 08/12/20 03:45 POC Whole Blood Glucose 104 MG/DL (74-106) 114 MG/DL (74-106) H 131 MG/DL (74-106) H White Blood Count 6.2 K/UL (4.8-10.8) Red Blood Count 3.96 M/UL (4.70-6.10) L Hemoglobin 12.0 G/DL (14.2-18.0) L Hematocrit 35.9 % (42.0-52.0) L Mean Corpuscular Volume 91 FL (80-99) Mean Corpuscular Hemoglobin 30.4 PG (27.0-31.0) Mean Corpuscular Hemoglobin Concent 33.5 G/DL (32.0-36.0) Red Cell Distribution Width 17.6 % (11.6-14.8) H Platelet Count 517 K/UL (150-450) H Mean Platelet Volume 7.3 FL (6.5-10.1) Neutrophils (%) (Auto) 71.1 % (45.0-75.0) Lymphocytes (%) (Auto) 24.9 % (20.0-45.0) Monocytes (%) (Auto) 3.8 % (1.0-10.0) Eosinophils (%) (Auto) 0.0 % (0.0-3.0) Basophils (%) (Auto) 0.3 % (0.0-2.0) Sodium Level 136 MMOL/L (136-145) Potassium Level 4.1 MMOL/L (3.5-5.1) Chloride Level 103 MMOL/L (98-107) Carbon Dioxide Level 26 MMOL/L (21-32) Anion Gap 7 mmol/L (5-15) Blood Urea Nitrogen 20 mg/dL (7-18) H Creatinine 0.8 MG/DL (0.55-1.30) Estimat Glomerular Filtration Rate > 60 mL/min (>60) Glucose Level 129 MG/DL (74-106) H Calcium Level 8.3 MG/DL (8.5-10.1) L Test 08/12/20 05:02 POC Whole Blood Glucose 121 MG/DL (74-106) H Current Medications Medications (Trade) Dose Ordered Sig/Ankush Route PRN Reason Start Time Stop Time Status Last Admin Dose Admin Acetaminophen (Tylenol) 650 mg Q4H PRN GT Temp >100.5 08/01/20 12:30 08/31/20 12:29 08/03/20 10:14 Barium Sulfate (Varibar Honey) 250 ml NOW PRN RAD 08/10/20 07:15 08/13/20 07:08 Barium Sulfate (Varibar Theresa) 240 ml NOW PRN RAD 08/10/20 07:15 08/13/20 07:08 Barium Sulfate (Varibar Pudding) 230 ml NOW PRN RAD 08/10/20 07:15 08/13/20 07:08 Barium Sulfate (Varibar Thin Liquid powder) 148 gm NOW PRN RAD 08/10/20 07:15 08/13/20 07:08 Dextrose (Dextrose 50%) 50 ml Q30M PRN IV Hypoglycemia 07/03/20 22:45 10/01/20 22:44 Dextrose/Sodium Chloride 1,000 ml @ 50 mls/hr Q20H IV 08/09/20 16:15 09/08/20 16:14 08/11/20 08:25 Heparin Sodium (Porcine) (Heparin 5000 units/ml) 5,000 units EVERY 12 HOURS SUBQ 07/03/20 21:00 08/17/20 20:59 08/11/20 20:10 Insulin Aspart (NovoLOG) EVERY 6 HOURS SUBQ 07/13/20 06:00 10/02/20 06:29 08/11/20 00:30 Nitroglycerin (Ntg) 0.4 mg Q5M PRN SL Prn Chest Pain 08/01/20 10:15 08/31/20 10:09 Ondansetron HCl (Zofran) 4 mg Q6H PRN IVP Nausea & Vomiting 08/01/20 14:30 08/31/20 14:29 Pantoprazole (Protonix) 40 mg DAILY IV 07/18/20 09:00 08/17/20 08:59 08/11/20 08:25 Polyethylene Glycol (Miralax) 17 gm DAILYPRN PRN GT Constipation 08/01/20 10:15 08/31/20 10:14 Promethazine HCl/ Codeine (Phenergan with Codeine) 5 ml Q4H PRN GT For Cough 08/01/20 10:14 08/31/20 10:13 08/05/20 22:05 Lorie Ramirez M.D. Aug 12, 2020 08:11
[2020-08-12] MEDS: Heparin 5000 units/ml inj SUBQ SCH ×2 (08:49→21:00)
[2020-08-12] MEDS: Pantoprazole Inj IV SCH (08:50)
--- NOTE | 2020-08-12 08:50 | NUR ---
RD ASSESSMENT & RECOMMENDATIONS SEE CARE ACTIVITY FOR COMPLETE ASSESSMENT DAILY ESTIMATED NEEDS: Needs based on DM, wound, pulmonary 59.5kg 25-35 kcals/kg 6460-3986 total kcals 1.25-2 g protein/kg 74-119 g total protein 25-30 mL/kg 5934-8349 total fluid mLs NUTRITION DIAGNOSIS: * Swallowing difficulty R/T dysphagia as evidenced by [employer] eval, recs for NGT feeds, now s/p oral intubation (07/17), s/p code blue (07/23) now extubated, NPO, did not pass [employer] eval. * Increased kcal and pro needs r/t wound healing as evidenced by sacral pressure injury stage 2. PO DIET RECOMMENDATIONS: NPO per [employer] ENTERAL NUTRITION RECOMMENDATIONS: Glucerna 1.2 @ @60ml/hr x24 hrs to provide 1440ml, 1728 kcal, 86g pro, 1159ml free H2O - Pt did not pass [employer] eval, rec non oral feeds to meet est kcal and pro needs. - Obtain GI access, start Glucerna 1.2 @30ml/hr for 6 hrs. Advance as tolerated 15ml/hr q4-6 hrs to goal. - HOB over 30 degrees/ H2O flush per MD ADDITIONAL RECOMMENDATIONS: * Calibrated bedscale wt for accurate CBW * Monitor hemodynamic stability: s/p code blue (07/23), now extubated * Monitor lytes, replete as needed * Wound care: add Sushil BID via PEG add Vit C 250mg QD * Monitor BGs closely -> Now NPO, on D5. * TF recs as above
--- NOTE | 2020-08-12 11:29 | Internal Med Progress Note ---
Subjective Date of Service: Aug 12, 2020 Physician Name Dano Groves Attending Physician Ahsan Hodges MD Current Medications Medications (Trade) Dose Ordered Sig/Ankush Route PRN Reason Start Time Stop Time Status Last Admin Dose Admin Acetaminophen (Tylenol) 650 mg Q4H PRN GT Temp >100.5 08/01/20 12:30 08/31/20 12:29 08/03/20 10:14 Barium Sulfate (Varibar Honey) 250 ml NOW PRN MC RAD 08/10/20 07:15 08/13/20 07:08 Barium Sulfate (Varibar [place]) 240 ml NOW PRN MC RAD 08/10/20 07:15 08/13/20 07:08 Barium Sulfate (Varibar Pudding) 230 ml NOW PRN MC RAD 08/10/20 07:15 08/13/20 07:08 Barium Sulfate (Varibar Thin Liquid powder) 148 gm NOW PRN MC RAD 08/10/20 07:15 08/13/20 07:08 Dextrose (Dextrose 50%) 50 ml Q30M PRN IV Hypoglycemia 07/03/20 22:45 10/01/20 22:44 Dextrose/Sodium Chloride 1,000 ml @ 50 mls/hr Q20H IV 08/09/20 16:15 09/08/20 16:14 08/11/20 08:25 Heparin Sodium (Porcine) (Heparin 5000 units/ml) 5,000 units EVERY 12 HOURS SUBQ 07/03/20 21:00 08/17/20 20:59 08/12/20 08:49 Insulin Aspart (NovoLOG) EVERY 6 HOURS SUBQ 07/13/20 06:00 10/02/20 06:29 08/11/20 00:30 Nitroglycerin (Ntg) 0.4 mg Q5M PRN SL Prn Chest Pain 08/01/20 10:15 08/31/20 10:09 Ondansetron HCl (Zofran) 4 mg Q6H PRN IVP Nausea & Vomiting 08/01/20 14:30 08/31/20 14:29 Pantoprazole (Protonix) 40 mg DAILY IV 07/18/20 09:00 08/17/20 08:59 08/12/20 08:50 Polyethylene Glycol (Miralax) 17 gm DAILYPRN PRN GT Constipation 08/01/20 10:15 08/31/20 10:14 Promethazine HCl/ Codeine (Phenergan with Codeine) 5 ml Q4H PRN GT For Cough 08/01/20 10:14 08/31/20 10:13 08/05/20 22:05 Allergies: Coded Allergies: No Known Allergies (Unverified , 04/30/12) ROS Limited/Unobtainable: Yes Subjective 79 YO M admitted with shortness of breath. Now pneumonia; previously COVID positive. Cover for Int laina-Dr Hodges. Step Down unit. extubated 08/09/20. Failed swallow eval Objective Last Vital Signs Date Time Temp Pulse Resp B/P (MAP) Pulse Ox O2 Delivery O2 Flow Rate FiO2 08/12/20 08:00 79 08/12/20 08:00 Nasal Cannula 2.0 Nasal Cannula 2.0 08/11/20 16:00 97.3 16 130/84 (99) 95 08/09/20 17:29 24 Laboratory Tests Test 08/11/20 11:41 08/11/20 17:37 08/11/20 23:31 08/12/20 03:45 POC Whole Blood Glucose 104 MG/DL (74-106) 114 MG/DL (74-106) H 131 MG/DL (74-106) H White Blood Count 6.2 K/UL (4.8-10.8) Red Blood Count 3.96 M/UL (4.70-6.10) L Hemoglobin 12.0 G/DL (14.2-18.0) L Hematocrit 35.9 % (42.0-52.0) L Mean Corpuscular Volume 91 FL (80-99) Mean Corpuscular Hemoglobin 30.4 PG (27.0-31.0) Mean Corpuscular Hemoglobin Concent 33.5 G/DL (32.0-36.0) Red Cell Distribution Width 17.6 % (11.6-14.8) H Platelet Count 517 K/UL (150-450) H Mean Platelet Volume 7.3 FL (6.5-10.1) Neutrophils (%) (Auto) 71.1 % (45.0-75.0) Lymphocytes (%) (Auto) 24.9 % (20.0-45.0) Monocytes (%) (Auto) 3.8 % (1.0-10.0) Eosinophils (%) (Auto) 0.0 % (0.0-3.0) Basophils (%) (Auto) 0.3 % (0.0-2.0) Sodium Level 136 MMOL/L (136-145) Potassium Level 4.1 MMOL/L (3.5-5.1) Chloride Level 103 MMOL/L (98-107) Carbon Dioxide Level 26 MMOL/L (21-32) Anion Gap 7 mmol/L (5-15) Blood Urea Nitrogen 20 mg/dL (7-18) H Creatinine 0.8 MG/DL (0.55-1.30) Estimat Glomerular Filtration Rate > 60 mL/min (>60) Glucose Level 129 MG/DL (74-106) H Calcium Level 8.3 MG/DL (8.5-10.1) L Test 08/12/20 05:02 POC Whole Blood Glucose 121 MG/DL (74-106) H Intake and Output 08/11/20 08/12/20 19:00 07:00 Intake Total 600 ml 400 ml Output Total 450 ml 700 ml Balance 150 ml -300 ml IV Total 600 ml 400 ml Output Urine Total 450 ml 700 ml Objective PHYSICAL EXAMINATION: GENERAL: The patient awake with deep stimuli, open his eyes, however, cannot follow commands. The patient is on a Ventimask at this time, chronically ill-appearing. HEAD AND NECK: Pupils are equal and reactive to light. Anicteric. NECK: Supple. No JVD. LUNGS: Nasal cannula; wheezing, rhonchi, and decreased air in bases. HEART: S1, S2. Regular rhythm. Distant heart sounds. No murmur or gallop. ABDOMEN: Soft, nondistended, nontender. Positive bowel sounds. EXTREMITIES: No cyanosis, clubbing, or edema. NEUROLOGIC: Very limited secondary to the patient's status, cannot follow commands. Opens his eyes with deep stimuli and moving extremities spontaneously. Assessment/Plan Assessment/Plan ASSESSMENT: 1. Acute hypoxemic respiratory failure, most likely secondary to pneumonia and sepsis. 2. Sepsis secondary to urinary tract infection and pneumonia. 3. pneumonia=MRSA; ESBL E. coli 4. Acute kidney injury on chronic renal insufficiency. 5. Dehydration. 6. History of chronic congestive heart failure. 7. Diabetes type 2. 8. Dyslipidemia. 9. Hypertension. 10. Alzheimer's disease. 11. COVID 19 previous positive 12. Dysphagia PLAN: 1. ICU 2. Dr. Carreno,=Pulmonary Critical Care 3. Dr. Cho = Inf Dis. 4. IV= D5W due to the hypernatremia and dehydration. 5. antibiotics = meropenem; S/P micafungin and zyvox 6. Code status is full code. 7. DVT prophylaxis is heparin subcutaneous. 8. Failed swallow eval; PEG eval=Dano Hughes MD Aug 12, 2020 11:29
[2020-08-12 11:54] VITALS: BP 157/87
--- NOTE | 2020-08-12 12:18 | Pulmonology Progress Note ---
Subjective ROS Limited/Unobtainable: Yes Allergies: Coded Allergies: No Known Allergies (Unverified , 04/30/12) Objective Last 24 Hour Vital Signs Date Time Temp Pulse Resp B/P (MAP) Pulse Ox O2 Delivery O2 Flow Rate FiO2 08/12/20 11:54 97.5 78 19 157/87 (110) 100 08/12/20 11:53 Nasal Cannula 2.0 Nasal Cannula 2.0 08/12/20 08:00 79 08/12/20 08:00 97.9 74 17 131/82 (98) 100 08/12/20 08:00 Nasal Cannula 2.0 Nasal Cannula 2.0 08/12/20 04:00 Nasal Cannula 2.0 08/12/20 04:00 66 08/12/20 00:07 72 08/12/20 00:00 Nasal Cannula 2.0 08/11/20 20:00 Nasal Cannula 2.0 08/11/20 20:00 67 08/11/20 16:00 Nasal Cannula 2.0 08/11/20 16:00 97.3 66 16 130/84 (99) 95 08/11/20 15:43 59 Intake and Output 08/11/20 08/12/20 19:00 07:00 Intake Total 600 ml 400 ml Output Total 450 ml 700 ml Balance 150 ml -300 ml IV Total 600 ml 400 ml Output Urine Total 450 ml 700 ml General Appearance: WD/WN, no acute distress HEENT: normocephalic, atraumatic Respiratory: chest wall non-tender, respiratory distress, rhonchi - left, rhonchi - right Cardiovascular: normal rate Abdomen: normal bowel sounds, no organomegaly Genitourinary: normal external genitalia Skin: no rash Laboratory Tests 08/11/20 17:37: POC Whole Blood Glucose 114H 08/11/20 23:31: POC Whole Blood Glucose 131H 08/12/20 03:45: White Blood Count 6.2, Red Blood Count 3.96L, Hemoglobin 12.0L, Hematocrit 35.9L , Mean Corpuscular Volume 91, Mean Corpuscular Hemoglobin 30.4, Mean Corpuscular Hemoglobin Concent 33.5, Red Cell Distribution Width 17.6H, Platelet Count 517H, Mean Platelet Volume 7.3, Neutrophils (%) (Auto) 71.1, Lymphocytes (%) (Auto) 24.9, Monocytes (%) (Auto) 3.8, Eosinophils (%) (Auto) 0.0, Basophils (%) (Auto) 0.3, Sodium Level 136, Potassium Level 4.1, Chloride Level 103, Carbon Dioxide Level 26, Anion Gap 7, Blood Urea Nitrogen 20H, Creatinine 0.8, Estimat Glomerular Filtration Rate > 60, Glucose Level 129H, Calcium Level 8.3L 08/12/20 05:02: POC Whole Blood Glucose 121H 08/12/20 11:50: POC Whole Blood Glucose 107H Current Medications Medications (Trade) Dose Ordered Sig/Ankush Route PRN Reason Start Time Stop Time Status Last Admin Dose Admin Acetaminophen (Tylenol) 650 mg Q4H PRN GT Temp >100.5 08/01/20 12:30 08/31/20 12:29 08/03/20 10:14 Barium Sulfate (Varibar [place]) 250 ml NOW PRN MC RAD 08/10/20 07:15 08/13/20 07:08 Barium Sulfate (Varibar [place]) 240 ml NOW PRN MC RAD 08/10/20 07:15 08/13/20 07:08 Barium Sulfate (Varibar [place]ud[place]) 230 ml NOW PRN MC RAD 08/10/20 07:15 08/13/20 07:08 Barium Sulfate (Varibar Thin Liquid powder) 148 gm NOW PRN MC RAD 08/10/20 07:15 08/13/20 07:08 Dextrose (Dextrose 50%) 50 ml Q30M PRN IV Hypoglycemia 07/03/20 22:45 10/01/20 22:44 Dextrose/Sodium Chloride 1,000 ml @ 50 mls/hr Q20H IV 08/09/20 16:15 09/08/20 16:14 08/11/20 08:25 Heparin Sodium (Porcine) (Heparin 5000 units/ml) 5,000 units EVERY 12 HOURS SUBQ 07/03/20 21:00 08/17/20 20:59 08/12/20 08:49 Insulin Aspart (NovoLOG) EVERY 6 HOURS SUBQ 07/13/20 06:00 10/02/20 06:29 08/11/20 00:30 Nitroglycerin (Ntg) 0.4 mg Q5M PRN SL Prn Chest Pain 08/01/20 10:15 08/31/20 10:09 Ondansetron HCl (Zofran) 4 mg Q6H PRN IVP Nausea & Vomiting 08/01/20 14:30 08/31/20 14:29 Pantoprazole (Protonix) 40 mg DAILY IV 07/18/20 09:00 08/17/20 08:59 08/12/20 08:50 Polyethylene Glycol (Miralax) 17 gm DAILYPRN PRN GT Constipation 08/01/20 10:15 08/31/20 10:14 Promethazine HCl/ Codeine (Phenergan with Codeine) 5 ml Q4H PRN GT For Cough 08/01/20 10:14 08/31/20 10:13 08/05/20 22:05 Assessment/Plan Problems: (1) Acute encephalopathy (2) 2019 novel coronavirus disease (COVID-19) (3) Severe sepsis (4) HTN (hypertension) (5) Aphasia (6) Alzheimer's dementia (7) History of CVA (cerebrovascular accident) (8) BPH (benign prostatic hyperplasia) Assessment/Plan all reviewed tolerating extubation swallow study titrate fio2 to sat of 92% frequent suctioning check electrolytes aspiration precaution dvt prophylaxis. Kya Carreno MD Aug 12, 2020 12:18
--- NOTE | 2020-08-12 12:48 | NUR ---
NURSE NOTES:Attempted to call Michelle Gorman the daughter of the patient who is listed on the contact sheet to obtain consent. Michelle Gorman did not answer the phone. Will call again later.
--- NOTE | 2020-08-12 13:16 | Consultation ---
DATE OF CONSULTATION: 08/12/2020 GASTROENTEROLOGY CONSULTATION CONSULTING PHYSICIAN: Jcarlos Brooks MD. REFERRING PHYSICIAN: Ahsan Hodges MD. CHIEF COMPLAINT: Dysphagia. HISTORY OF PRESENT ILLNESS: Most of the history per chart. A 79-year-old patient admitted on July 03, 2020 to the hospital for complaint of shortness of breath. [facility]. He has numerous medical problems, which I will dictate in a second. He had a long stay in the hospital over a month now, has been intubated and now extubated. He failed a swallow evaluation. He has been NPO for three days, so GI consult requested for evaluation for possible PEG placement. PAST MEDICAL HISTORY: 1. COVID positive pneumonia. 2. Heart failure. 3. Diabetes type 2. 4. Hypercholesteremia. 5. Chronic kidney disease. 6. Dyslipidemia. 7. Dysphagia. 8. Dementia. 9. Hypercalcemia. 10. Encephalopathy. 11. UTI. 12. GERD. 13. BPH. 14. Right humerus fracture. ALLERGIES: No known drug allergies. MEDICATIONS: Please see medication reconciliation list. SOCIAL HISTORY: Currently, he lives in a prison. No history of tobacco, alcohol, or drug abuse. FAMILY HISTORY: Noncontributory. REVIEW OF SYSTEMS: Unable to obtain. PHYSICAL EXAMINATION: VITAL SIGNS: Temperature is 97.5, pulse 78, respirations 19, blood pressure __/87. HEENT: Normocephalic and atraumatic. Sclerae are anicteric. NECK: Supple. No evidence of obvious lymphadenopathy. CARDIOVASCULAR: Regular rate and rhythm. Plus S1, S2. LUNGS: Decreased breath sounds bilaterally diffusely on the supine exam. ABDOMEN: Soft, nontender. No rebound. No guarding. No peritoneal sign. EXTREMITIES: No cyanosis. No clubbing. LABORATORY DATA: White count 6.2, hemoglobin 12, hematocrit 35, platelet count is 517,000. ASSESSMENT AND PLAN: The patient is a 79-year-old male with dysphagia. I spoke with the family, who agreed to PEG. Plan is to make the patient NPO after midnight tonight, hold any anticoagulation in the morning. IV fluids for hydration. We will plan to do the PEG tomorrow. We will give him dose of antibiotics prior to the procedure. I want to thank Dr. Ahsan Hodges for this kind referral. Jcarlos Brooks M.D. DR: RAI JOB#: [id number] CC:
--- NOTE | 2020-08-12 13:36 | Nephrology Progress Note ---
Assessment/Plan Problem List: (1) Dehydration (2) MELANIE (acute kidney injury) (3) Renal failure (ARF), acute on chronic (4) Hypoxia (5) Acute encephalopathy (6) Electrolyte imbalance Assessment 79-year-old male is admitted with acute hypoxic respiratory failure most likely secondary to pneumonia and sepsis, UTI. Acute on chronic renal failure Dehydration Electrolyte imbalances, hypernatremia Hypoalbuminemia Diabetes type 2 History of congestive heart failure Hypertension Hyperlipemia Alzheimer's Previous COVID-19 infection in May 2020 Plan August 12: Continue to do well post extubation. Labs reviewed. Renal parameters stable. Continue per consultants. August 11: Remain extubated on nasal cannula. Labs reviewed. Renal parameters stable. August 10: Discussed with RN. Patient now extubated. On nasal cannula. Renal parameters stable. Continue per consultants. August 09: Discussed with FLORES Holliday. Weaning in process. It seems like patient is tolerating better. Labs reviewed. Continue per consultants. August 08: Remains in ICU. Status unchanged. Labs and medication list reviewed. Remains full code. Weaning continues to fail. August 07: Remains in ICU. Remains intubated. Remains full code. Continues to be on weaning trials. Renal parameters are stable. August 06: Patient remains in ICU. Full code. Intubated. Fails weaning. Labs reviewed. Stable from renal standpoint of view. Discussed with RN. August 05: Labs reviewed. Discussed with RN. Abnormal electrolyte addressed. Remains intubated on ventilator. Continue per consultants. August 04: Labs reviewed. Discussed with RN. Stable from renal standpoint of view. Main issue is weaning from ventilator that keeps failing. Continue per consultants. August 03: Labs reviewed. Discussed with RN. Stable from renal standpoint of view. Continue per consultants. August 02: Patient seen and discussed with RN. Labs reviewed. Remains intubated. Trial of weaning this being attempted. Continue per consultants. August 01: Remains intubated. Labs reviewed. Renal parameters stable. Continue per consultants. July 31: Remains on mechanical ventilation. Labs reviewed. Abnormal electrolytes addressed. Stable from renal standpoint of view. July 30: Remains intubated. Remains full code. Labs reviewed. Low phosphorus replaced. Continue to monitor renal parameters. Continue per consultants. July 29: Failed weaning. Remains intubated. Remains full closed. Labs reviewed. Stable from renal standpoint view. July 28: Remains in ICU. Remains full code. Labs are reviewed. Phosphorus supplement given. Continue per consultants. July 27: Remains in ICU. Full code. Labs reviewed. Remains intubated. Stable renal parameters. July 26: In ICU. Full code. Discussed with RN. Stable renal parameters. July 25: Seen in ICU. Discussed with FLORES Holliday. Flomax discontinued. Labs reviewed. Stable from renal standpoint of view. July 24: Seen in ICU. Discussed with FLORES Holliday. Remains on pressor. Electrolyte abnormalities noted and addressed. Continue per consultants. Patient remains full code. July 23: Seen in ICU. Discussed with FLORES Barrera. Blood pressure remains a little requiring pressors. Labs reviewed. Stable renal parameters. Continue per consultants. July 22: Remains intubated. Full code. Blood pressure borderline low. Will increase midodrine dose. Discussed with RN. Continue to monitor renal parameters and electrolytes. July 21: Intubated. Full code. Labs reviewed. Stable from renal standpoint of view. Continue per consultants. July 20: Remains intubated. Full code. Labs reviewed. Electrolytes within normal limit. Continue per consultants. July 19: In ICU. Remains intubated on ventilator. Remains full code. Low potassium addressed. Blood pressure fluctuating. Continue per consultants. July 18: Patient in ICU. Intubated on ventilator. On 6 mics of Levophed. Will give 100 cc albumin 25%. K-Phos IV ordered. Continue per consultants. Continue monitor renal parameters and electrolytes. July 17: Status unchanged. Transfer to [facility] for seizure. Stable from renal standpoint to view. Continue per consultants. July 16: Status quo. Labs reviewed. Renal parameters stable. Continue per consultants. July 15: On nonrebreather mask. Labs reviewed. Renal parameters stable.Continue per commercial loan reviewer. Clinically unchanged. July 14: On nonrebreather mask. Inflammatory markers gradually declining. Renal parameters stable. Continue per pulmonary. July 13: Remains on nonrebreather mask. Inflammatory markers remain elevated. Renal parameters somewhat stable. Continue per pulmonary and ID. Remains full code. July 12: Patient on nonrebreather mask. Labs noted. Serum creatinine down to 1.3. Continue per consultants. July 11: Patient on nonrebreather mask. Transfer to telemetry when seen this morning. Labs noted. Continue per consultants. Serum creatinine erin to 1.7. Continue to monitor renal parameters. Continue to monitor vancomycin level July 10: Patient is not doing well clinically. Mild respiratory distress. ABG noted. Somewhat hypoxic. CBC and chemistry panel ordered. Discussed with FLORES Cho. Will defer to pulmonary management to specialist. Continue per ID. Renal parameters remained stable as of July 09. July 09: Labs reviewed. Renal parameters stable. Continue per consultants. July 08: Labs reviewed. Potassium via NG tube ordered. IV fluids stopped. Continue per consultants. July 07: Labs reviewed. Low potassium and low phosphorus replaced. Continue per consultants. Remains stable from renal standpoint of view. July 06: Patient remains n.p.o. IV fluid down to 50 cc an hour. Potassium supplement intravenously ordered. Continue per consultants. Previously: Patient is n.p.o., will continue on IV fluid of D5W 75 cc an hour We will monitor electrolytes and renal parameters Avoid nephrotoxic's Start p.o. when he clears by speech therapist, meanwhile aspiration precautions Keep the blood pressure and blood sugar in check Per orders Subjective ROS Limited/Unobtainable: No Objective Objective Last 24 Hour Vital Signs Date Time Temp Pulse Resp B/P (MAP) Pulse Ox O2 Delivery O2 Flow Rate FiO2 08/12/20 12:00 57 08/12/20 11:54 97.5 78 19 157/87 (110) 100 08/12/20 11:53 Nasal Cannula 2.0 Nasal Cannula 2.0 08/12/20 08:00 79 08/12/20 08:00 97.9 74 17 131/82 (98) 100 08/12/20 08:00 Nasal Cannula 2.0 Nasal Cannula 2.0 08/12/20 04:00 Nasal Cannula 2.0 08/12/20 04:00 66 08/12/20 00:07 72 08/12/20 00:00 Nasal Cannula 2.0 08/11/20 20:00 Nasal Cannula 2.0 08/11/20 20:00 67 08/11/20 16:00 Nasal Cannula 2.0 08/11/20 16:00 97.3 66 16 130/84 (99) 95 08/11/20 15:43 59 Intake and Output 08/11/20 08/12/20 19:00 07:00 Intake Total 600 ml 400 ml Output Total 450 ml 700 ml Balance 150 ml -300 ml IV Total 600 ml 400 ml Output Urine Total 450 ml 700 ml Current Medications Medications (Trade) Dose Ordered Sig/Ankush Route PRN Reason Start Time Stop Time Status Last Admin Dose Admin Acetaminophen (Tylenol) 650 mg Q4H PRN GT Temp >100.5 08/01/20 12:30 08/31/20 12:29 08/03/20 10:14 Barium Sulfate (Varibar Honey) 250 ml NOW PRN MC RAD 08/10/20 07:15 08/13/20 07:08 Barium Sulfate (Varibar [place]) 240 ml NOW PRN MC RAD 08/10/20 07:15 08/13/20 07:08 Barium Sulfate (Varibar Pudding) 230 ml NOW PRN MC RAD 08/10/20 07:15 08/13/20 07:08 Barium Sulfate (Varibar Thin Liquid powder) 148 gm NOW PRN MC RAD 08/10/20 07:15 08/13/20 07:08 Dextrose (Dextrose 50%) 50 ml Q30M PRN IV Hypoglycemia 07/03/20 22:45 10/01/20 22:44 Dextrose/Sodium Chloride 1,000 ml @ 50 mls/hr Q20H IV 08/09/20 16:15 09/08/20 16:14 08/11/20 08:25 Heparin Sodium (Porcine) (Heparin 5000 units/ml) 5,000 units EVERY 12 HOURS SUBQ 07/03/20 21:00 08/17/20 20:59 08/12/20 08:49 Insulin Aspart (NovoLOG) EVERY 6 HOURS SUBQ 07/13/20 06:00 10/02/20 06:29 08/11/20 00:30 Nitroglycerin (Ntg) 0.4 mg Q5M PRN SL Prn Chest Pain 08/01/20 10:15 08/31/20 10:09 Ondansetron HCl (Zofran) 4 mg Q6H PRN IVP Nausea & Vomiting 08/01/20 14:30 08/31/20 14:29 Pantoprazole (Protonix) 40 mg DAILY IV 07/18/20 09:00 08/17/20 08:59 08/12/20 08:50 Polyethylene Glycol (Miralax) 17 gm DAILYPRN PRN GT Constipation 08/01/20 10:15 08/31/20 10:14 Promethazine HCl/ Codeine (Phenergan with Codeine) 5 ml Q4H PRN GT For Cough 08/01/20 10:14 08/31/20 10:13 08/05/20 22:05 Laboratory Tests 08/11/20 17:37: POC Whole Blood Glucose 114H 08/11/20 23:31: POC Whole Blood Glucose 131H 08/12/20 03:45: White Blood Count 6.2, Red Blood Count 3.96L, Hemoglobin 12.0L, Hematocrit 35.9L , Mean Corpuscular Volume 91, Mean Corpuscular Hemoglobin 30.4, Mean Corpuscular Hemoglobin Concent 33.5, Red Cell Distribution Width 17.6H, Platelet Count 517H, Mean Platelet Volume 7.3, Neutrophils (%) (Auto) 71.1, Lymphocytes (%) (Auto) 24.9, Monocytes (%) (Auto) 3.8, Eosinophils (%) (Auto) 0.0, Basophils (%) (Auto) 0.3, Sodium Level 136, Potassium Level 4.1, Chloride Level 103, Carbon Dioxide Level 26, Anion Gap 7, Blood Urea Nitrogen 20H, Creatinine 0.8, Estimat Glomerular Filtration Rate > 60, Glucose Level 129H, Calcium Level 8.3L 08/12/20 05:02: POC Whole Blood Glucose 121H 08/12/20 11:50: POC Whole Blood Glucose 107H Height (Feet): 5 Height (Inches): 4.00 Weight (Pounds): 130 General Appearance: no apparent distress Cardiovascular: normal rate Respiratory/Chest: decreased breath sounds Abdomen: distended Tino Connors MD Aug 12, 2020 13:36
--- NOTE | 2020-08-12 14:33 | Cardiac Electrophysiology PN ---
Assessment/Plan Assessment/Plan 1. Accelerated junctional rhythm. Ruled out for SD Echo showed ejection fraction of 55%. 2. Long run of 31 beats of Nonsustained VT on 07/14/2020. Cardiac cath after stabilization. 3. Aníbal 30, Asystole while on the Vent due to resp failure/ likely mucus plug . S/P Code Off midodrine 4. Respiratory failure, on antibiotic Extubated 08/09/20 5. Septic shock. Off Levophed 6. History of previous COVID infection in May 2020 and July 2020 Now negative again and off isolation. 7. Dementia. 8. Dysphagia, Failed swallow eval PEG tomorrow by Dr Cecilia LUCAS RN Subjective Subjective Had 31 beats of VT on 07/14/20 and 5 beats 07/19/20 Coded on 07/23/20 as sat dropped to 20% and got aníbal 30s and PEA and pulseless Transferred out of ICU after extubated 08/09/20 Failed Swallow eval. Scheduled for PEG by Dr Brooks tomorrow Objective Last 24 Hour Vital Signs Date Time Temp Pulse Resp B/P (MAP) Pulse Ox O2 Delivery O2 Flow Rate FiO2 08/12/20 12:00 57 08/12/20 11:54 97.5 78 19 157/87 (110) 100 08/12/20 11:53 Nasal Cannula 2.0 Nasal Cannula 2.0 08/12/20 08:00 79 08/12/20 08:00 97.9 74 17 131/82 (98) 100 08/12/20 08:00 Nasal Cannula 2.0 Nasal Cannula 2.0 08/12/20 04:00 Nasal Cannula 2.0 08/12/20 04:00 66 08/12/20 00:07 72 08/12/20 00:00 Nasal Cannula 2.0 08/11/20 20:00 Nasal Cannula 2.0 08/11/20 20:00 67 08/11/20 16:00 Nasal Cannula 2.0 08/11/20 16:00 97.3 66 16 130/84 (99) 95 08/11/20 15:43 59 Intake and Output 08/11/20 08/12/20 19:00 07:00 Intake Total 600 ml 400 ml Output Total 450 ml 700 ml Balance 150 ml -300 ml IV Total 600 ml 400 ml Output Urine Total 450 ml 700 ml Laboratory Tests Test 08/11/20 17:37 08/11/20 23:31 08/12/20 03:45 08/12/20 05:02 POC Whole Blood Glucose 114 MG/DL (74-106) H 131 MG/DL (74-106) H 121 MG/DL (74-106) H White Blood Count 6.2 K/UL (4.8-10.8) Red Blood Count 3.96 M/UL (4.70-6.10) L Hemoglobin 12.0 G/DL (14.2-18.0) L Hematocrit 35.9 % (42.0-52.0) L Mean Corpuscular Volume 91 FL (80-99) Mean Corpuscular Hemoglobin 30.4 PG (27.0-31.0) Mean Corpuscular Hemoglobin Concent 33.5 G/DL (32.0-36.0) Red Cell Distribution Width 17.6 % (11.6-14.8) H Platelet Count 517 K/UL (150-450) H Mean Platelet Volume 7.3 FL (6.5-10.1) Neutrophils (%) (Auto) 71.1 % (45.0-75.0) Lymphocytes (%) (Auto) 24.9 % (20.0-45.0) Monocytes (%) (Auto) 3.8 % (1.0-10.0) Eosinophils (%) (Auto) 0.0 % (0.0-3.0) Basophils (%) (Auto) 0.3 % (0.0-2.0) Sodium Level 136 MMOL/L (136-145) Potassium Level 4.1 MMOL/L (3.5-5.1) Chloride Level 103 MMOL/L (98-107) Carbon Dioxide Level 26 MMOL/L (21-32) Anion Gap 7 mmol/L (5-15) Blood Urea Nitrogen 20 mg/dL (7-18) H Creatinine 0.8 MG/DL (0.55-1.30) Estimat Glomerular Filtration Rate > 60 mL/min (>60) Glucose Level 129 MG/DL (74-106) H Calcium Level 8.3 MG/DL (8.5-10.1) L Test 08/12/20 11:50 POC Whole Blood Glucose 107 MG/DL (74-106) H Objective HEAD AND NECK: No JVD. LUNGS: Coarse rhonchi. CARDIOVASCULAR: Irregular S1 and S2 with no gallop. ABDOMEN: Soft. EXTREMITIES: No pitting edema. Klever Matt MD Aug 12, 2020 14:32
--- NOTE | 2020-08-12 15:19 | NUR ---
CASE MANAGEMENT:REVIEW 08/12/20 SI: ACUTE RESPIRATORY FAILURE. PNA EXTUBATED 08/09 97.5 78 19 157/87 100% on 2l/nc H/H-12.0/35.9 BUN+20 IS: IVF@50/HR IV PROTONIX QD HEPARIN SQ Q12 : STEP DOWN UNIT PLAN: SWALLOW EVAL ~ PATIENT REFUSED TO OPEN HIS MOUTH CONSENT FOR EGD/PEG
[2020-08-12 16:36] VITALS: BP 145/77
[2020-08-12] MEDS ORDERED: D5NS 1000ml IV ONE (18:33)
[2020-08-12] MEDS ORDERED: 1/2 NS 1000ml IV ONE (18:33)
[2020-08-12] MEDS ORDERED: NS 275ml ONE (18:33)
[2020-08-12] MEDS ORDERED: Tubing IV Secondary IV ONE (18:33)
--- NOTE | 2020-08-12 19:36 | NUR ---
NURSE HAND-OFF REPORT: Important Events on Shift: Patient Status: Stable Diet: NPO Pending Orders: Pending Results/Labs:PEG placement tomorrow 08/13/20 Pending MD notification: Latest Vital Signs: Temperature 98.2 , Pulse 60 , B/P 145 /77 , Respiratory Rate 18 , O2 SAT 100 , Nasal Cannula, O2 Flow Rate 1.0 . Vital Sign Comment: EKG Rhythm: Sinus Rhythm Rhythm change?: N MD Notified?: Grecia Matt MD Response: Latest Gonzalez Fall Score: 45 Fall Risk: High Risk Safety Measures: Call light Within Reach, Bed Alarm Zone 1, Side Rails Side Rails x3, Bed position Low and Locked. Fall Precautions: Yellow Socks Yellow Gown Door Sign Patient Fall Education Report given to FLORES Rayo.
--- NOTE | 2020-08-12 19:37 | NUR ---
NURSE NOTES: Received report from FLORES Gaming. Pt appears awake, non verbal, smiling at nurse, and nonresponsive to verbal stimuli. Right hand IV running D5 NS at 50 mL. 5-lead EKG shows SR at 68 BPM. Vitals WNL. Afebrile. Saturating 98% on 2L N/C. Made aware of NPO status for EGD and PEG tube placement tomorrow. Wiley draining well to gravity. Bed kept in lowest and locked position. Bed alarm on. Side rails up x3. Will continue monitoring.
[2020-08-12 20:00] VITALS: BP 153/70
[2020-08-13] VITALS (9 sets, daily range): BP systolic 140–163; BP diastolic 60–96
[2020-08-13] MEDS: D5NS 1,000 ML IV SCH (00:49)
--- NOTE | 2020-08-13 04:23 | NUR ---
NURSE NOTES: Bed bath given. No distress noted. GI checklist completed. Will monitor.
[2020-08-13] MEDS: NovoLOG Insulin Flexpen SUBQ SCH ×5 (05:23→23:14)
[2020-08-13 05:38] LABS: ANION GAP 10 mmol/L (5-15); BLOOD UREA NITROGEN 16 mg/dL (7-18); CALCIUM 8.1 MG/DL (8.5-10.1); CARBON DIOXIDE 24 MMOL/L (21-32); CHLORIDE 105 MMOL/L (98-107); CREATININE 0.7 MG/DL (0.55-1.30); POTASSIUM 3.5 MMOL/L (3.5-5.1); SODIUM 139 MMOL/L (136-145)
[2020-08-13 06:16] LABS: BASOPHILS % (AUTO) 0.9 % (0.0-2.0); EOSINOPHILS % (AUTO) 0.9 % (0.0-3.0); HEMATOCRIT 36.8 % (42.0-52.0); HEMOGLOBIN 12.2 G/DL (14.2-18.0); LYMPHOCYTES % (AUTO) 28.1 % (20.0-45.0); MEAN CORPUSCULAR VOLUME 91 FL (80-99); MONOCYTES % (AUTO) 8.4 % (1.0-10.0); NEUTROPHILS % (AUTO) 61.7 % (45.0-75.0); PLATELET COUNT 499 K/UL (150-450); RED BLOOD COUNT 4.05 M/UL (4.70-6.10); RED CELL DISTRIBUTION WIDTH 17.4 % (11.6-14.8); WHITE BLOOD COUNT 7.6 K/UL (4.8-10.8)
--- NOTE | 2020-08-13 07:38 | NUR ---
NURSE HAND-OFF REPORT: Important Events on Shift: Scheduled for PEG tube placement Patient Status: Stable Diet: NPO Pending Orders: N Pending Results/Labs: Pending MD notification: Latest Vital Signs: Temperature 97.3 , Pulse 74 , B/P 153 /70 , Respiratory Rate 22 , O2 SAT 100 , Nasal Cannula, O2 Flow Rate 2.0 . Vital Sign Comment: WNL EKG Rhythm: Sinus Rhythm Rhythm change?: N MD Notified?: MD Response: Latest Gonzalez Fall Score: 45 Fall Risk: High Risk Safety Measures: Call light Within Reach, Bed Alarm Zone 1, Side Rails Side Rails x3, Bed position Low and Locked. Fall Precautions: Yellow Socks Yellow Gown Door Sign Patient Fall Education Report given to FLORES Preston.
--- NOTE | 2020-08-13 07:39 | NUR ---
NURSE NOTES: Received patient in bed awake and responsive but non verbal. O2 via NC at 2LPM in place, no SOB or acute distress. Productive cough noted. FC intact and anchor secured, draining yellow colored urine. IV lines intact and patent. HOB elevated. Bed locked in lowest position. Call light within reach. Will continue plan of care.
--- NOTE | 2020-08-13 08:03 | Infectious Diseases Prog Note ---
Assessment/Plan 79yo M with: Respiratory code 2ry to mucus plug 07/23 Septic Shock- -recurrent Fever, recurrent, low grade;SP Leukocytosis; recurrent; increased Acute hypoxic resp failure, on NRB mask> 4l NC; back on NRB, desaturation 07/09 > intubated 07/17 Pneumonia- >HAP Hx of COVID-19 PNA 05/20/2007/28 CXR: No significant interval change in the radiographic appearance the chest compared to one day prior. 07/25 Resp cx +MRSA, nl resp bobby UCx neg BCx NTD 07/24 COVID PCR neg --07/21 CXR: Bilateral infiltrates in a peribronchovascular distribution are unchanged. Left pleural effusion is unchanged. --07/19 CXR: Persistent bilateral patchy pulmonary opacities, most prominent in the left lower lung. --07/18 ucx neg sp cx MRSA (colonizer at this point) Bcx Neg --07/13 Bcx Neg 07/10 Sp cx MRSA (Vancomycin APOLONIA 1), ESBL E.coli 07/03 BCx NTD UA - WBC, UCx Neg 07/03 COVID rapid neg; 07/06 rapid COVID PCR + (from prior infection)- not new infection Flu A/B neg CXR: L pna Resp cx MRSA 07/30 Resp cx +ESBL E.coli & PsA 08/01 BCx NTD 08/02 CXR: Small bilateral pleural effusions with moderate vascular c ongestion. Airspace consolidation in the left lower lung field may represent atelectasis however, correlate for infiltrate. This is improving when compared to the prior study. 08/03 BCx NTD 08/03 CXR: Increasing right basilar opacity, likely infiltrate, may also reflect increasing pleural fluid H/o COVID pna Tested positive 05/20/2007/03 Rapid Ag neg 07/06 Rapid Ag positive (from prior disease?) 07/24 COVID PCR neg MELANIE on CKD, improving SN[facility] resident ([facility] rosas) Non-verbal VRE and MRSA colonized Plan: Cont to monitor off abx -08/10 SP jen #10 -07/31 SP linezolid #7 -07/27 SP meropenem #14 for ESBL pna -07/21 SP Micafungin #4 -07/17 SP IV Vancomycin #15 -07/13 SP Zosyn #4 -07/06 SP Cefepime # SP Flagyl # Monitor CBC/CMP Monitor resp status Monitor temp curve and hemodynamics D/w RN Thank you for this consult. [facility] will continue to follow. Subjective Allergies: Coded Allergies: No Known Allergies (Unverified , 04/30/12) AF WBC 7.6 2L NC NAD Objective Last 24 Hour Vital Signs Date Time Temp Pulse Resp B/P (MAP) Pulse Ox O2 Delivery O2 Flow Rate FiO2 08/13/20 04:00 Nasal Cannula 2.0 Nasal Cannula 2.0 08/13/20 04:00 74 08/13/20 00:00 64 08/13/20 00:00 Nasal Cannula 2.0 Nasal Cannula 2.0 08/12/20 20:00 97.3 63 22 153/70 (97) 100 08/12/20 20:00 Nasal Cannula 2.0 Nasal Cannula 2.0 08/12/20 20:00 64 08/12/20 18:59 100 Nasal Cannula 1.0 24 08/12/20 16:36 98.2 60 18 145/77 (99) 100 08/12/20 16:00 60 08/12/20 15:52 Nasal Cannula 2.0 Nasal Cannula 2.0 08/12/20 12:00 57 08/12/20 11:54 97.5 78 19 157/87 (110) 100 08/12/20 11:53 Nasal Cannula 2.0 Nasal Cannula 2.0 Height (Feet): 5 Height (Inches): 4.00 Weight (Pounds): 130 Gen: NAD in bed HEENT: NCAT CV: RRR Pulm: CTAB Abd: Soft, NTND Ext: No c/c/e Neuro: Awake, not interactive Lines: RUE PICC Laboratory Tests Test 08/12/20 11:50 08/12/20 17:22 08/13/20 00:24 08/13/20 03:30 POC Whole Blood Glucose 107 MG/DL (74-106) H 123 MG/DL (74-106) H Pending White Blood Count 7.6 K/UL (4.8-10.8) Red Blood Count 4.05 M/UL (4.70-6.10) L Hemoglobin 12.2 G/DL (14.2-18.0) L Hematocrit 36.8 % (42.0-52.0) L Mean Corpuscular Volume 91 FL (80-99) Mean Corpuscular Hemoglobin 30.1 PG (27.0-31.0) Mean Corpuscular Hemoglobin Concent 33.1 G/DL (32.0-36.0) Red Cell Distribution Width 17.4 % (11.6-14.8) H Platelet Count 499 K/UL (150-450) H Mean Platelet Volume 6.9 FL (6.5-10.1) Neutrophils (%) (Auto) 61.7 % (45.0-75.0) Lymphocytes (%) (Auto) 28.1 % (20.0-45.0) Monocytes (%) (Auto) 8.4 % (1.0-10.0) Eosinophils (%) (Auto) 0.9 % (0.0-3.0) Basophils (%) (Auto) 0.9 % (0.0-2.0) Prothrombin Time 11.1 SEC (9.30-11.50) Prothromb Time International Ratio 1.0 (0.9-1.1) Activated Partial Thromboplast Time 27 SEC (23-33) Sodium Level 139 MMOL/L (136-145) Potassium Level 3.5 MMOL/L (3.5-5.1) Chloride Level 105 MMOL/L (98-107) Carbon Dioxide Level 24 MMOL/L (21-32) Anion Gap 10 mmol/L (5-15) Blood Urea Nitrogen 16 mg/dL (7-18) Creatinine 0.7 MG/DL (0.55-1.30) Estimat Glomerular Filtration Rate > 60 mL/min (>60) Glucose Level 107 MG/DL (74-106) H Calcium Level 8.1 MG/DL (8.5-10.1) L Test 08/13/20 04:20 POC Whole Blood Glucose 104 MG/DL (74-106) Current Medications Medications (Trade) Dose Ordered Sig/Ankush Route PRN Reason Start Time Stop Time Status Last Admin Dose Admin Acetaminophen (Tylenol) 650 mg Q4H PRN GT Temp >100.5 08/01/20 12:30 08/31/20 12:29 08/03/20 10:14 Dextrose (Dextrose 50%) 50 ml Q30M PRN IV Hypoglycemia 07/03/20 22:45 10/01/20 22:44 Dextrose/Sodium Chloride 1,000 ml @ 50 mls/hr Q20H IV 08/09/20 16:15 09/08/20 16:14 08/13/20 00:49 Heparin Sodium (Porcine) (Heparin 5000 units/ml) 5,000 units EVERY 12 HOURS SUBQ 07/03/20 21:00 08/17/20 20:59 08/12/20 08:49 Insulin Aspart (NovoLOG) EVERY 6 HOURS SUBQ 07/13/20 06:00 10/02/20 06:29 08/11/20 00:30 Nitroglycerin (Ntg) 0.4 mg Q5M PRN SL Prn Chest Pain 08/01/20 10:15 08/31/20 10:09 Ondansetron HCl (Zofran) 4 mg Q6H PRN IVP Nausea & Vomiting 08/01/20 14:30 08/31/20 14:29 Pantoprazole (Protonix) 40 mg DAILY IV 07/18/20 09:00 08/17/20 08:59 08/12/20 08:50 Polyethylene Glycol (Miralax) 17 gm DAILYPRN PRN GT Constipation 08/01/20 10:15 08/31/20 10:14 Promethazine HCl/ Codeine (Phenergan with Codeine) 5 ml Q4H PRN GT For Cough 08/01/20 10:14 08/31/20 10:13 08/05/20 22:05 Lorie Ramirez M.D. Aug 13, 2020 08:03
[2020-08-13] MEDS: Heparin 5000 units/ml inj SUBQ SCH ×2 (09:00→20:29)
[2020-08-13] MEDS: Pantoprazole Inj IV SCH (09:03)
--- NOTE | 2020-08-13 10:29 | NUR ---
NURSE NOTES: For Gtube placement today, consent secured in chart.
[2020-08-13] MEDS ORDERED: cefOXitin Sod 1 GM in D5W 55 ML IVPB ONE (11:30)
--- NOTE | 2020-08-13 11:30 | NUR ---
NURSE NOTES: Patient transported down for procedure, hooked to telemetry monitor.
--- NOTE | 2020-08-13 11:52 | Nephrology Progress Note ---
Assessment/Plan Problem List: (1) Dehydration (2) MELANIE (acute kidney injury) (3) Renal failure (ARF), acute on chronic (4) Hypoxia (5) Acute encephalopathy (6) Electrolyte imbalance Assessment 79-year-old male is admitted with acute hypoxic respiratory failure most likely secondary to pneumonia and sepsis, UTI. Acute on chronic renal failure Dehydration Electrolyte imbalances, hypernatremia Hypoalbuminemia Diabetes type 2 History of congestive heart failure Hypertension Hyperlipemia Alzheimer's Previous COVID-19 infection in May 2020 Plan August 13: Remains on nasal cannula. Labs reviewed. Stable from renal standpoint of view. August 12: Continue to do well post extubation. Labs reviewed. Renal parameters stable. Continue per consultants. August 11: Remain extubated on nasal cannula. Labs reviewed. Renal parameters stable. August 10: Discussed with RN. Patient now extubated. On nasal cannula. Renal parameters stable. Continue per consultants. August 09: Discussed with FLORES Holliday. Weaning in process. It seems like patient is tolerating better. Labs reviewed. Continue per consultants. August 08: Remains in ICU. Status unchanged. Labs and medication list reviewed. Remains full code. Weaning continues to fail. August 07: Remains in ICU. Remains intubated. Remains full code. Continues to be on weaning trials. Renal parameters are stable. August 06: Patient remains in ICU. Full code. Intubated. Fails weaning. Labs reviewed. Stable from renal standpoint of view. Discussed with RN. August 05: Labs reviewed. Discussed with RN. Abnormal electrolyte addressed. Remains intubated on ventilator. Continue per consultants. August 04: Labs reviewed. Discussed with RN. Stable from renal standpoint of view. Main issue is weaning from ventilator that keeps failing. Continue per consultants. August 03: Labs reviewed. Discussed with RN. Stable from renal standpoint of view. Continue per consultants. August 02: Patient seen and discussed with RN. Labs reviewed. Remains intubated. Trial of weaning this being attempted. Continue per consultants. August 01: Remains intubated. Labs reviewed. Renal parameters stable. Co ntinue per consultants. July 31: Remains on mechanical ventilation. Labs reviewed. Abnormal electrolytes addressed. Stable from renal standpoint of view. July 30: Remains intubated. Remains full code. Labs reviewed. Low phosphorus replaced. Continue to monitor renal parameters. Continue per consultants. July 29: Failed weaning. Remains intubated. Remains full closed. Labs reviewed. Stable from renal standpoint view. July 28: Remains in ICU. Remains full code. Labs are reviewed. Phosphorus supplement given. Continue per consultants. July 27: Remains in ICU. Full code. Labs reviewed. Remains intubated. Stable renal parameters. July 26: In ICU. Full code. Discussed with RN. Stable renal parameters. July 25: Seen in ICU. Discussed with FLORES Holliday. Flomax discontinued. Labs reviewed. Stable from renal standpoint of view. July 24: Seen in ICU. Discussed with FLORES Holliday. Remains on pressor. Electrolyte abnormalities noted and addressed. Continue per consultants. Patient remains full code. July 23: Seen in ICU. Discussed with FLORES Barrera. Blood pressure remains a little requiring pressors. Labs reviewed. Stable renal parameters. Continue per consultants. July 22: Remains intubated. Full code. Blood pressure borderline low. Will increase midodrine dose. Discussed with RN. Continue to monitor renal parameters and electrolytes. July 21: Intubated. Full code. Labs reviewed. Stable from renal standpoint of view. Continue per consultants. July 20: Remains intubated. Full code. Labs reviewed. Electrolytes within normal limit. Continue per consultants. July 19: In ICU. Remains intubated on ventilator. Remains full code. Low potassium addressed. Blood pressure fluctuating. Continue per consultants. July 18: Patient in ICU. Intubated on ventilator. On 6 mics of Levophed. Will give 100 cc albumin 25%. K-Phos IV ordered. Continue per consultants. Continue monitor renal parameters and electrolytes. July 17: Status unchanged. Transfer to [facility] for seizure. Stable from renal standpoint to view. Continue per consultants. July 16: Status quo. Labs reviewed. Renal parameters stable. Continue per consultants. July 15: On nonrebreather mask. Labs reviewed. Renal parameters stable.Continue per camouflage specialist. Clinically unchanged. July 14: On nonrebreather mask. Inflammatory markers gradually declining. Renal parameters stable. Continue per pulmonary. July 13: Remains on nonrebreather mask. Inflammatory markers remain elevated. Renal parameters somewhat stable. Continue per pulmonary and ID. Remains full code. July 12: Patient on nonrebreather mask. Labs noted. Serum creatinine down to 1.3. Continue per consultants. July 11: Patient on nonrebreather mask. Transfer to telemetry when seen this morning. Labs noted. Continue per consultants. Serum creatinine erin to 1.7. Continue to monitor renal parameters. Continue to monitor vancomycin level July 10: Patient is not doing well clinically. Mild respiratory distress. ABG noted. Somewhat hypoxic. CBC and chemistry panel ordered. Discussed with FLORES Cho. Will defer to pulmonary management to specialist. Continue per ID. Renal parameters remained stable as of July 09. July 09: Labs reviewed. Renal parameters stable. Continue per consultants. July 08: Labs reviewed. Potassium via NG tube ordered. IV fluids stopped. Continue per consultants. July 07: Labs reviewed. Low potassium and low phosphorus replaced. Continue per consultants. Remains stable from renal standpoint of view. July 06: Patient remains n.p.o. IV fluid down to 50 cc an hour. Potassium supplement intravenously ordered. Continue per consultants. Previously: Patient is n.p.o., will continue on IV fluid of D5W 75 cc an hour We will monitor electrolytes and renal parameters Avoid nephrotoxic's Start p.o. when he clears by speech therapist, meanwhile aspiration precautions Keep the blood pressure and blood sugar in check Per orders Subjective ROS Limited/Unobtainable: No Constitutional: Reports: malaise Objective Objective Last 24 Hour Vital Signs Date Time Temp Pulse Resp B/P (MAP) Pulse Ox O2 Delivery O2 Flow Rate FiO2 08/13/20 08:00 97.9 67 18 141/95 (110) 98 08/13/20 08:00 Nasal Cannula 2.0 Nasal Cannula 2.0 08/13/20 08:00 64 08/13/20 07:40 98 Nasal Cannula 2.0 28 08/13/20 04:00 Nasal Cannula 2.0 Nasal Cannula 2.0 08/13/20 04:00 74 08/13/20 00:00 64 08/13/20 00:00 Nasal Cannula 2.0 Nasal Cannula 2.0 08/12/20 20:00 97.3 63 22 153/70 (97) 100 08/12/20 20:00 Nasal Cannula 2.0 Nasal Cannula 2.0 08/12/20 20:00 64 08/12/20 18:59 100 Nasal Cannula 1.0 24 08/12/20 16:36 98.2 60 18 145/77 (99) 100 08/12/20 16:00 60 08/12/20 15:52 Nasal Cannula 2.0 Nasal Cannula 2.0 08/12/20 12:00 57 08/12/20 11:54 97.5 78 19 157/87 (110) 100 08/12/20 11:53 Nasal Cannula 2.0 Nasal Cannula 2.0 Intake and Output 08/12/20 08/13/20 19:00 07:00 Intake Total 259.17 ml Output Total 350 ml 400 ml Balance -350 ml -140.83 ml IV Total 259.17 ml Output Urine Total 350 ml 400 ml Current Medications Medications (Trade) Dose Ordered Sig/Ankush Route PRN Reason Start Time Stop Time Status Last Admin Dose Admin Acetaminophen (Tylenol) 650 mg Q4H PRN GT Temp >100.5 08/01/20 12:30 08/31/20 12:29 08/03/20 10:14 Cefoxitin Sodium 1 gm/Dextrose 55 ml @ 110 mls/hr ONCE ONCE IVPB 08/13/20 11:30 08/13/20 11:59 08/13/20 10:54 Dextrose (Dextrose 50%) 50 ml Q30M PRN IV Hypoglycemia 07/03/20 22:45 10/01/20 22:44 Dextrose/Sodium Chloride 1,000 ml @ 50 mls/hr Q20H IV 08/09/20 16:15 09/08/20 16:14 08/13/20 00:49 Heparin Sodium (Porcine) (Heparin 5000 units/ml) 5,000 units EVERY 12 HOURS SUBQ 07/03/20 21:00 08/17/20 20:59 08/12/20 08:49 Insulin Aspart (NovoLOG) EVERY 6 HOURS SUBQ 07/13/20 06:00 10/02/20 06:29 08/11/20 00:30 Nitroglycerin (Ntg) 0.4 mg Q5M PRN SL Prn Chest Pain 08/01/20 10:15 08/31/20 10:09 Ondansetron HCl (Zofran) 4 mg Q6H PRN IVP Nausea & Vomiting 08/01/20 14:30 08/31/20 14:29 Pantoprazole (Protonix) 40 mg DAILY IV 07/18/20 09:00 08/17/20 08:59 08/13/20 09:03 Polyethylene Glycol (Miralax) 17 gm DAILYPRN PRN GT Constipation 08/01/20 10:15 08/31/20 10:14 Promethazine HCl/ Codeine (Phenergan with Codeine) 5 ml Q4H PRN GT For Cough 08/01/20 10:14 08/31/20 10:13 08/05/20 22:05 Laboratory Tests 08/12/20 17:22: POC Whole Blood Glucose 123H 08/13/20 00:24: POC Whole Blood Glucose [Pending] 08/13/20 03:30: White Blood Count 7.6, Red Blood Count 4.05L, Hemoglobin 12.2L, Hematocrit 36.8L , Mean Corpuscular Volume 91, Mean Corpuscular Hemoglobin 30.1, Mean Corpuscular Hemoglobin Concent 33.1, Red Cell Distribution Width 17.4H, Platelet Count 499H , Mean Platelet Volume 6.9, Neutrophils (%) (Auto) 61.7, Lymphocytes (%) (Auto) 28.1, Monocytes (%) (Auto) 8.4, Eosinophils (%) (Auto) 0.9, Basophils (%) (Auto) 0.9, Prothrombin Time 11.1, Prothromb Time International Ratio 1.0, Activated Partial Thromboplast Time 27, Sodium Level 139, Potassium Level 3.5, Chloride Level 105, Carbon Dioxide Level 24, Anion Gap 10, Blood Urea Nitrogen 16, Creatinine 0.7, Estimat Glomerular Filtration Rate > 60, Glucose Level 107H, Calcium Level 8.1L 08/13/20 04:20: POC Whole Blood Glucose 104 08/13/20 11:27: POC Whole Blood Glucose 125H Height (Feet): 5 Height (Inches): 4.00 Weight (Pounds): 130 General Appearance: no apparent distress EENT: other - On nasal cannula Cardiovascular: normal rate Respiratory/Chest: decreased breath sounds Abdomen: soft, distended Tino Connors MD Aug 13, 2020 11:52
[2020-08-13] MEDS ORDERED: Lidocaine 1% MPF 10mg/ml 5ml ONE (12:00)
[2020-08-13] MEDS ORDERED: LR 1000ml ONE (12:00)
--- NOTE | 2020-08-13 12:16 | Pre-Procedure Note/Attestation ---
Pre-Procedure Note/Attestation Complete Prior to Procedure Planned Procedure: not applicable Procedure Narrative: peg Indications for Procedure Pre-Operative Diagnosis: dysphagia Attestation I attest that I discussed the nature of the procedure; its benefits; risks and complications; and alternatives (and the risks and benefits of such alternatives), prior to the procedure, with the patient (or the patient's legal union contract representative). I attest that, if there was a reasonable possibility of needing a blood transfusion, the patient (or the patient's legal union contract representative) was given the [facility] standardized written summary, pursuant to the [employer]uce [place] Blood Safety Act ([place] Health and Safety Code # 1645, as amended). I attest that I re-evaluated the patient just prior to the surgery and that there has been no change in the patient's H&P, except as documented below: Jcarlos Brooks MD Aug 13, 2020 12:16
[2020-08-13] MEDS ORDERED: NS 500ML IVPB ONE (12:20)
--- NOTE | 2020-08-13 12:31 | Endoscopy Procedure Note ---
Endoscopy Procedure Note General Indication for Procedure: dysphgaia Procedures Performed: EGD, PEG Operative Findings/Diagnosis: same Specimen: none Pt Tolerated Procedure Well: Yes Anesthesia Anesthesiologist: tamica Anesthesia: MAC Inserted Devices Implant(s) used?: No GI Core Measures 50 yrs or older w/o bx or poly: Not Applicable 10yrs. F/U recommended: Not Applicable Jcarlos Brooks MD Aug 13, 2020 12:31
--- NOTE | 2020-08-13 13:30 | NUR ---
NURSE NOTES: Patient back in room. Awake but drowsy. Abdominal dressing intact, abdominal binder placed. Connected back to IV and NC.
--- NOTE | 2020-08-13 13:42 | Pulmonology Progress Note ---
Subjective ROS Limited/Unobtainable: Yes Hematologic: Reports: no symptoms Musculoskeletal: Reports: no symptoms Allergies: Coded Allergies: No Known Allergies (Unverified , 04/30/12) Objective Last 24 Hour Vital Signs Date Time Temp Pulse Resp B/P (MAP) Pulse Ox O2 Delivery O2 Flow Rate FiO2 08/13/20 13:15 97.9 91 18 143/81 95 Nasal Cannula 3 08/13/20 13:05 100 15 149/78 95 Nasal Cannula 3 08/13/20 12:55 88 16 142/76 97 Nasal Cannula 3 08/13/20 12:45 94 16 163/72 98 Nasal Cannula 3 08/13/20 12:40 91 18 140/96 98 Nasal Cannula 3 08/13/20 12:35 97.1 55 14 142/60 98 Nasal Cannula 3 08/13/20 12:00 62 08/13/20 08:00 97.9 67 18 141/95 (110) 98 08/13/20 08:00 Nasal Cannula 2.0 Nasal Cannula 2.0 08/13/20 08:00 64 08/13/20 07:40 98 Nasal Cannula 2.0 28 08/13/20 04:00 Nasal Cannula 2.0 Nasal Cannula 2.0 08/13/20 04:00 74 08/13/20 00:00 64 08/13/20 00:00 Nasal Cannula 2.0 Nasal Cannula 2.0 08/12/20 20:00 97.3 63 22 153/70 (97) 100 08/12/20 20:00 Nasal Cannula 2.0 Nasal Cannula 2.0 08/12/20 20:00 64 08/12/20 18:59 100 Nasal Cannula 1.0 24 08/12/20 16:36 98.2 60 18 145/77 (99) 100 08/12/20 16:00 60 08/12/20 15:52 Nasal Cannula 2.0 Nasal Cannula 2.0 Intake and Output 08/12/20 08/13/20 19:00 07:00 Intake Total 259.17 ml Output Total 350 ml 400 ml Balance -350 ml -140.83 ml IV Total 259.17 ml Output Urine Total 350 ml 400 ml General Appearance: WD/WN, no acute distress HEENT: normocephalic, atraumatic Respiratory: chest wall non-tender, respiratory distress, rhonchi - left, rhonchi - right Cardiovascular: normal rate Abdomen: normal bowel sounds, no organomegaly Genitourinary: normal external genitalia Skin: no rash Laboratory Tests 08/12/20 17:22: POC Whole Blood Glucose 123H 08/13/20 00:24: POC Whole Blood Glucose [Pending] 08/13/20 03:30: White Blood Count 7.6, Red Blood Count 4.05L, Hemoglobin 12.2L, Hematocrit 36.8L , Mean Corpuscular Volume 91, Mean Corpuscular Hemoglobin 30.1, Mean Corpuscular Hemoglobin Concent 33.1, Red Cell Distribution Width 17.4H, Platelet Count 499H , Mean Platelet Volume 6.9, Neutrophils (%) (Auto) 61.7, Lymphocytes (%) (Auto) 28.1, Monocytes (%) (Auto) 8.4, Eosinophils (%) (Auto) 0.9, Basophils (%) (Auto) 0.9, Prothrombin Time 11.1, Prothromb Time International Ratio 1.0, Activated Partial Thromboplast Time 27, Sodium Level 139, Potassium Level 3.5, Chloride Level 105, Carbon Dioxide Level 24, Anion Gap 10, Blood Urea Nitrogen 16, Creatinine 0.7, Estimat Glomerular Filtration Rate > 60, Glucose Level 107H, Calcium Level 8.1L 08/13/20 04:20: POC Whole Blood Glucose 104 08/13/20 11:27: POC Whole Blood Glucose 125H Current Medications Medications (Trade) Dose Ordered Sig/Ankush Route PRN Reason Start Time Stop Time Status Last Admin Dose Admin Acetaminophen (Tylenol) 650 mg Q4H PRN GT Temp >100.5 08/01/20 12:30 08/31/20 12:29 08/03/20 10:14 Dextrose (Dextrose 50%) 50 ml Q30M PRN IV Hypoglycemia 07/03/20 22:45 10/01/20 22:44 Dextrose/Sodium Chloride 1,000 ml @ 50 mls/hr Q20H IV 08/09/20 16:15 09/08/20 16:14 08/13/20 00:49 Heparin Sodium (Porcine) (Heparin 5000 units/ml) 5,000 units EVERY 12 HOURS SUBQ 07/03/20 21:00 08/17/20 20:59 08/12/20 08:49 Insulin Aspart (NovoLOG) EVERY 6 HOURS SUBQ 07/13/20 06:00 10/02/20 06:29 08/11/20 00:30 Nitroglycerin (Ntg) 0.4 mg Q5M PRN SL Prn Chest Pain 08/01/20 10:15 08/31/20 10:09 Ondansetron HCl (Zofran) 4 mg Q6H PRN IVP Nausea & Vomiting 08/01/20 14:30 08/31/20 14:29 Pantoprazole (Protonix) 40 mg DAILY IV 07/18/20 09:00 08/17/20 08:59 08/13/20 09:03 Polyethylene Glycol (Miralax) 17 gm DAILYPRN PRN GT Constipation 08/01/20 10:15 08/31/20 10:14 Promethazine HCl/ Codeine (Phenergan with Codeine) 5 ml Q4H PRN GT For Cough 08/01/20 10:14 08/31/20 10:13 08/05/20 22:05 Assessment/Plan Problems: (1) Acute encephalopathy (2) 2019 novel coronavirus disease (COVID-19) (3) Severe sepsis (4) HTN (hypertension) (5) Aphasia (6) Alzheimer's dementia (7) History of CVA (cerebrovascular accident) (8) BPH (benign prostatic hyperplasia) Assessment/Plan got Gtube today titrate fio2 to sat of 92% frequent suctioning check electrolytes aspiration precaution dvt prophylaxis. med/surg Kya Carreno MD Aug 13, 2020 13:42
--- NOTE | 2020-08-13 13:43 | NUR ---
SPEECH PATHOLOGY/DISCHARGE SUMMARY S: PATIENT UNDERWENT PEG PLACEMENT TODAY O: DYSPHAGIA TX/FOLLOW UP/DISCHARGE A: PATIENT CONTINUES HIGH RISK FOR ASPIRATION (SEE VIDEO SWALLOW/OMC.) DURING HIS LENGTH OF STAY, MULTIPLE ATTEMPTS WERE MADE TO EVALUATE PATIENTS SAFETY RELATIVE TO P.O. INTAKE. WITH ALL TRIALS HE CONSISTENTLY DEMONSTRATED HIGH RISK FOR ASPIRATION (CONFIRMED WITH VIDEO SWALLOW STUDY FINDINGS RE: DEEP LARYNGEAL PENETRATION/RISK FOR CHRONIC MICROASPIRATION AND RECURRING PNEUMONIA CONSISTENT WITH DEMENTIA, HE REFUSED SUBSEQUENT ATTEMPTS TO RE/EVALUATE TOLERANCE FOR P.O. TREATMENT GOALS NOT MET FOR SAFE P,O. INTAKE TO SUPPORT NUTRITION/HYDRATION NEEDS. P.O. FOR ORAL GRATIFICATION IS CONTRAINDICATED. P: NPO NO FURTHER SKILLED ST SERVICES APPEAR TO BE NEEDED AT THIS TIME. NURSING STAFF TO PROVIDE ORAL CARE TID TO REDUCE ORAL PATHOGENS AND PREVENT POTENTIAL DEVELOPMENT OF NOSOCOMIAL PNEUMONIA DISCUSSED ST DISCHARGE WITH FLORES FERRELL
--- NOTE | 2020-08-13 13:53 | NUR ---
NURSE NOTES:WOUND CARE NOTES:Pt presented with Resolved sacral Pressure Injury. Hyperpigmentation noted with surrounding dry brown borders that without erythema or induration.Bilat heels are boggy with non-blanchable erythema. No other skin concerns noted. Tx.Plan:Apply Moisture Barrier Paste to Sacrum . Cover with Optifoam drsg. Change every 3 days and prn. Apply Cavilon Skin Barrier to R and L Heels. Cover each heel with Optifoam drsg. Change every 7 ays and prn. Reposition at Least every 2hours or as tolerated. Off-load heels with Pillow.
--- NOTE | 2020-08-13 15:00 | Procedure Note ---
DATE OF PROCEDURE: 08/13/2020 SURGEON: Jcarlos Brooks MD. PROCEDURE: Upper endoscopy with PEG placement. ANESTHESIA: Per HOGSHEAD SALVAGE, Arabella Tarrillhannah. INSTRUMENT: Olympus adult flexible upper endoscope. INDICATION: Dysphagia. REASON FOR PROCEDURE: The procedure, risks, benefits, and possible consequences, including hemorrhage, aspiration, perforation and infection, and alternative treatments, were explained to the patient/legal guardian by Dr. Jcarlos Brooks and the patient/legal guardian understood and accepted these risks. PROCEDURE IN DETAIL: After informed consent was obtained and the patient was adequately sedated, Olympus upper endoscope was advanced from mouth into the second portion of the duodenum and retroflexion was performed in the stomach. Then, under endoscopic guidance and under sterile condition, a 20-Maltese pull type of G-tube was successfully placed in epigastric area. The distance from the tip of the tube to skin was about 2.5 cm in size. The patient tolerated the procedure very well without any complication. SUMMARY OF FINDING: Status post successful PEG placement. RECOMMENDATIONS: 1. Abdominal binder. 2. Elevate the head of the bed. 3. G-tube flush. 4. G-tube care. 5. Start tube feeding later today. Jcarlos Brooks M.D. DR: RAI JOB#: [id number] CC:
[2020-08-13] MEDS ORDERED: NS 275ml ONE (15:06)
[2020-08-13] MEDS ORDERED: Tubing IV Secondary IV ONE (15:06)
--- NOTE | 2020-08-13 15:32 | Cardiac Electrophysiology PN ---
Assessment/Plan Assessment/Plan 1. Accelerated junctional rhythm. Ruled out for [place] Echo showed ejection fraction of 55%. 2. Long run of 31 beats of Nonsustained VT on 07/14/2020. Cardiac cath after stabilization. 3. Aníbal 30, Asystole while on the Vent due to resp failure/ likely mucus plug . S/P Code Off midodrine 4. Respiratory failure, on antibiotic Extubated 08/09/20 5. Septic shock. Off Levophed 6. History of previous COVID infection in May 2020 and July 2020 Now negative again and off isolation. 7. Dementia. 8. Dysphagia, Failed swallow eval S/P PEG tomorrow day by Dr Cecilia LUCAS RN Subjective Subjective Had 31 beats of VT on 07/14/20 and 5 beats 07/19/20 Coded on 07/23/20 as sat dropped to 20% and got aníbal 30s and PEA and pulseless Transferred out of ICU after extubated 08/09/20 Failed Swallow eval. S/P PEG by Dr Brooks today Objective Last 24 Hour Vital Signs Date Time Temp Pulse Resp B/P (MAP) Pulse Ox O2 Delivery O2 Flow Rate FiO2 08/13/20 13:15 97.9 91 18 143/81 95 Nasal Cannula 3 08/13/20 13:05 100 15 149/78 95 Nasal Cannula 3 08/13/20 12:55 88 16 142/76 97 Nasal Cannula 3 08/13/20 12:45 94 16 163/72 98 Nasal Cannula 3 08/13/20 12:40 91 18 140/96 98 Nasal Cannula 3 08/13/20 12:35 97.1 55 14 142/60 98 Nasal Cannula 3 08/13/20 12:00 62 08/13/20 08:00 97.9 67 18 141/95 (110) 98 08/13/20 08:00 Nasal Cannula 2.0 Nasal Cannula 2.0 08/13/20 08:00 64 08/13/20 07:40 98 Nasal Cannula 2.0 28 08/13/20 04:00 Nasal Cannula 2.0 Nasal Cannula 2.0 08/13/20 04:00 74 08/13/20 00:00 64 08/13/20 00:00 Nasal Cannula 2.0 Nasal Cannula 2.0 08/12/20 20:00 97.3 63 22 153/70 (97) 100 08/12/20 20:00 Nasal Cannula 2.0 Nasal Cannula 2.0 08/12/20 20:00 64 08/12/20 18:59 100 Nasal Cannula 1.0 24 08/12/20 16:36 98.2 60 18 145/77 (99) 100 08/12/20 16:00 60 08/12/20 15:52 Nasal Cannula 2.0 Nasal Cannula 2.0 Intake and Output 08/12/20 08/13/20 19:00 07:00 Intake Total 259.17 ml Output Total 350 ml 400 ml Balance -350 ml -140.83 ml IV Total 259.17 ml Output Urine Total 350 ml 400 ml Laboratory Tests Test 08/12/20 17:22 08/13/20 00:24 08/13/20 03:30 08/13/20 04:20 POC Whole Blood Glucose 123 MG/DL (74-106) H Pending 104 MG/DL (74-106) White Blood Count 7.6 K/UL (4.8-10.8) Red Blood Count 4.05 M/UL (4.70-6.10) L Hemoglobin 12.2 G/DL (14.2-18.0) L Hematocrit 36.8 % (42.0-52.0) L Mean Corpuscular Volume 91 FL (80-99) Mean Corpuscular Hemoglobin 30.1 PG (27.0-31.0) Mean Corpuscular Hemoglobin Concent 33.1 G/DL (32.0-36.0) Red Cell Distribution Width 17.4 % (11.6-14.8) H Platelet Count 499 K/UL (150-450) H Mean Platelet Volume 6.9 FL (6.5-10.1) Neutrophils (%) (Auto) 61.7 % (45.0-75.0) Lymphocytes (%) (Auto) 28.1 % (20.0-45.0) Monocytes (%) (Auto) 8.4 % (1.0-10.0) Eosinophils (%) (Auto) 0.9 % (0.0-3.0) Basophils (%) (Auto) 0.9 % (0.0-2.0) Prothrombin Time 11.1 SEC (9.30-11.50) Prothromb Time International Ratio 1.0 (0.9-1.1) Activated Partial Thromboplast Time 27 SEC (23-33) Sodium Level 139 MMOL/L (136-145) Potassium Level 3.5 MMOL/L (3.5-5.1) Chloride Level 105 MMOL/L (98-107) Carbon Dioxide Level 24 MMOL/L (21-32) Anion Gap 10 mmol/L (5-15) Blood Urea Nitrogen 16 mg/dL (7-18) Creatinine 0.7 MG/DL (0.55-1.30) Estimat Glomerular Filtration Rate > 60 mL/min (>60) Glucose Level 107 MG/DL (74-106) H Calcium Level 8.1 MG/DL (8.5-10.1) L Test 08/13/20 11:27 POC Whole Blood Glucose 125 MG/DL (74-106) H Objective HEAD AND NECK: No JVD. LUNGS: Coarse rhonchi. CARDIOVASCULAR: Irregular S1 and S2 with no gallop. ABDOMEN: Soft.PEG in place EXTREMITIES: No pitting edema. Klever Matt MD Aug 13, 2020 15:32
--- NOTE | 2020-08-13 16:21 | NUR ---
NURSE NOTES: Tube feeding started with Glucerna 1.2 at 20cc/hr, to goal 60cc/hr. Flushing done. Kept head of bed elevated.
--- NOTE | 2020-08-13 19:24 | NUR ---
NURSE HAND-OFF REPORT: Important Events on Shift:Gtube intact, feeding ongoing. Patient Status: stable Diet: Glucerna 1.2 x 60cc/hr goal, currently at 20cc/hr Pending Orders: Pending Results/Labs: Pending MD notification: Latest Vital Signs: Temperature 97.3 , Pulse 75 , B/P 145 /89 , Respiratory Rate 18 , O2 SAT 99 , Nasal Cannula, O2 Flow Rate 2.0 . Vital Sign Comment: EKG Rhythm: Sinus Rhythm Rhythm change?: N Notified?: Grecia Matt MD Response: Latest Gonzalez Fall Score: 45 Fall Risk: High Risk Safety Measures: Call light Within Reach, Bed Alarm Zone 1, Side Rails Side Rails x3, Bed position Low and Locked. Fall Precautions: Yellow Socks Yellow Gown Door Sign Patient Fall Education Report given to Jeannette TANNER.
--- NOTE | 2020-08-13 19:25 | NUR ---
NURSE NOTES: Report received from FLORES Preston with update. Pt awake, responsive to tactile stimuli. 5 lead EKG shows SR. Vitals WNL. Saturating 95% O2 on 2L N/C. New PEG tube in place enclosed by abdominal binder. Feed running Glucerna 1.2 at 20 mL with 0 residual noted. Right IV running D5W. Will request from MD to DC. Wiley draining well to gravity. Bed kept in lowest and locked position. Side rails up x3. Bed alarm on. Will continue monitoring.
--- NOTE | 2020-08-13 20:00 | NUR ---
NURSE NOTES: New orders from Dr. Hodges to D/C D5W. Pt in stable condition. Will monitor. Addendum: 08/14/20 at 0041 by Jia Ann RN NURSE NOTES: New orders to DC D5 NS.
[2020-08-14] VITALS (7 sets, daily range): BP systolic 113–153; BP diastolic 59–107
[2020-08-14] MEDS: NovoLOG Insulin Flexpen SUBQ SCH ×4 (05:01→23:32)
--- NOTE | 2020-08-14 07:00 | NUR ---
NURSE HAND-OFF REPORT: Important Events on Shift: no changes. new PEG tube. Patient Status: stable Diet: Glucerna 1.2 Pending Orders: Pending Results/Labs: Pending MD notification: Latest Vital Signs: Temperature 98.2 , Pulse 94 , B/P 143 /91 , Respiratory Rate 22 , O2 SAT 97 , Nasal Cannula, O2 Flow Rate 2.0 . Vital Sign Comment: WNL EKG Rhythm: Sinus Rhythm Rhythm change?: N MD Notified?: MD Response: Latest Gonzalez Fall Score: 45 Fall Risk: High Risk Safety Measures: Call light Within Reach, Bed Alarm Zone 1, Side Rails Side Rails x3, Bed position Low and Locked. Fall Precautions: Yellow Socks Yellow Gown Door Sign Patient Fall Education Report given to Yousif Jorge RN.
--- NOTE | 2020-08-14 07:06 | NUR ---
NURSE NOTES: Report received from Jia Basilio RN. Pt awake, aphasic/obtunded. Respirations even and unlabored. 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 On 2L/NC saturating 98%. No sob or distress noted. New PEG in place w/abdominal binder in place. Glucerna 1.2 at 40cc/hr w/no residual noted. F/c draining well of hazy norbert urine to gravity. Bed kept in lowest and locked position. Bed alarm engaged Will continue POC.
--- NOTE | 2020-08-14 08:58 | Infectious Diseases Prog Note ---
Assessment/Plan 79yo M with: Respiratory code 2ry to mucus plug 07/23 Septic Shock- -recurrent Fever, recurrent, low grade;SP Leukocytosis; recurrent; increased Acute hypoxic resp failure, on NRB mask> 4l NC; back on NRB, desaturation 07/09 > intubated 07/17 Pneumonia- >HAP Hx of COVID-19 PNA 05/20/2007/28 CXR: No significant interval change in the radiographic appearance the chest compared to one day prior. 07/25 Resp cx +MRSA, nl resp bobby UCx neg BCx NTD 07/24 COVID PCR neg --07/21 CXR: Bilateral infiltrates in a peribronchovascular distribution are unchanged. Left pleural effusion is unchanged. --07/19 CXR: Persistent bilateral patchy pulmonary opacities, most prominent in the left lower lung. --07/18 ucx neg sp cx MRSA (colonizer at this point) Bcx Neg --07/13 Bcx Neg 07/10 Sp cx MRSA (Vancomycin APOLONIA 1), ESBL E.coli 07/03 BCx NTD UA 15- WBC, UCx Neg 07/03 COVID rapid neg; 07/06 rapid COVID PCR + (from prior infection)- not new infection Flu A/B neg CXR: L pna Resp cx MRSA 07/30 Resp cx +ESBL E.coli & PsA 08/01 BCx NTD 08/02 CXR: Small bilateral pleural effusions with moderate vascular c ongestion. Airspace consolidation in the left lower lung field may represent atelectasis however, correlate for infiltrate. This is improving when compared to the prior study. 08/03 BCx NTD 08/03 CXR: Increasing right basilar opacity, likely infiltrate, may also reflect increasing pleural fluid H/o COVID pna Tested positive 05/20/2007/03 Rapid Ag neg 07/06 Rapid Ag positive (from prior disease?) 07/24 COVID PCR neg MELANIE on CKD, improving SNF resident (ed rosas) Non-verbal VRE and MRSA colonized Plan: Cont to monitor off abx Obtain resp cx Trend resp status, if persistently worsens, then can start vanco/jen empiric -08/10 SP jen #10 -07/31 SP linezolid #7 -07/27 SP meropenem #14 for ESBL pna -07/21 SP Micafungin #4 -07/17 SP IV Vancomycin #15 -11/ SP Zosyn # SP Cefepime # SP Flagyl # Monitor CBC/CMP Monitor resp status Monitor temp curve and hemodynamics D/w RN Thank you for this consult. [facility] will continue to follow. Subjective Allergies: Coded Allergies: No Known Allergies (Unverified , 04/30/12) AF 2L NC --> desatted, RT in room put pt on mask for now Wet sounding lungs NAD Objective Last 24 Hour Vital Signs Date Time Temp Pulse Resp B/P (MAP) Pulse Ox O2 Delivery O2 Flow Rate FiO2 08/14/20 04:00 91 08/14/20 04:00 98.2 94 22 143/91 (108) 97 08/14/20 04:00 Nasal Cannula 2.0 Nasal Cannula 2.0 08/14/20 00:00 Nasal Cannula 2.0 Nasal Cannula 2.0 08/14/20 00:00 98.1 99 22 148/81 (103) 99 08/13/20 23:52 80 08/13/20 20:00 98.7 91 22 154/77 (102) 100 08/13/20 20:00 Nasal Cannula 2.0 Nasal Cannula 2.0 08/13/20 19:33 98 Nasal Cannula 3.0 28 08/13/20 19:22 69 08/13/20 16:00 97.3 64 18 145/89 (107) 99 08/13/20 16:00 Nasal Cannula 2.0 Nasal Cannula 2.0 08/13/20 16:00 75 08/13/20 13:15 97.9 91 18 143/81 95 Nasal Cannula 3 08/13/20 13:05 100 15 149/78 95 Nasal Cannula 3 08/13/20 12:55 88 16 142/76 97 Nasal Cannula 3 08/13/20 12:45 94 16 163/72 98 Nasal Cannula 3 08/13/20 12:40 91 18 140/96 98 Nasal Cannula 3 08/13/20 12:35 97.1 55 14 142/60 98 Nasal Cannula 3 08/13/20 12:00 62 Height (Feet): 5 Height (Inches): 4.00 Weight (Pounds): 130 Gen: NAD in bed HEENT: NCAT CV: RRR Pulm: CTAB Abd: Soft, NTND Ext: No c/c/e Neuro: Awake, not interactive Lines: RUE PICC Laboratory Tests Test 08/13/20 11:27 08/13/20 17:55 08/13/20 23:13 08/14/20 04:55 POC Whole Blood Glucose 125 MG/DL (74-106) H 113 MG/DL (74-106) H 120 MG/DL (74-106) H 121 MG/DL (74-106) H Current Medications Medications (Trade) Dose Ordered Sig/Ankush Route PRN Reason Start Time Stop Time Status Last Admin Dose Admin Acetaminophen (Tylenol) 650 mg Q4H PRN GT Temp >100.5 08/01/20 12:30 08/31/20 12:29 08/03/20 10:14 Dextrose (Dextrose 50%) 50 ml Q30M PRN IV Hypoglycemia 07/03/20 22:45 10/01/20 22:44 Heparin Sodium (Porcine) (Heparin 5000 units/ml) 5,000 units EVERY 12 HOURS SUBQ 07/03/20 21:00 08/17/20 20:59 08/13/20 20:29 Insulin Aspart (NovoLOG) EVERY 6 HOURS SUBQ 07/13/20 06:00 10/02/20 06:29 08/11/20 00:30 Nitroglycerin (Ntg) 0.4 mg Q5M PRN SL Prn Chest Pain 08/01/20 10:15 08/31/20 10:09 Ondansetron HCl (Zofran) 4 mg Q6H PRN IVP Nausea & Vomiting 08/01/20 14:30 08/31/20 14:29 Pantoprazole (Protonix) 40 mg DAILY IV 07/18/20 09:00 08/17/20 08:59 08/13/20 09:03 Polyethylene Glycol (Miralax) 17 gm DAILYPRN PRN GT Constipation 08/01/20 10:15 08/31/20 10:14 08/13/20 23:14 Promethazine HCl/ Codeine (Phenergan with Codeine) 5 ml Q4H PRN GT For Cough 08/01/20 10:14 08/31/20 10:13 08/05/20 22:05 Lorie Ramirez M.D. Aug 14, 2020 08:58
[2020-08-14] MEDS: Pantoprazole Inj IV SCH (09:05)
[2020-08-14] MEDS: Heparin 5000 units/ml inj SUBQ SCH ×2 (09:08→22:06)
--- NOTE | 2020-08-14 10:19 | NUR ---
DISCHARGE PLANNING FAXED CLINICALS TO [facility] T: [phone] F: [phone]
--- NOTE | 2020-08-14 10:30 | NUR ---
NURSE NOTES: GT feeding stopped d/t emesis. HOB up 45 degrees. In no apparent distress.
--- NOTE | 2020-08-14 10:40 | General Progress Note ---
Subjective ROS Limited/Unobtainable: No Allergies: Coded Allergies: No Known Allergies (Unverified , 04/30/12) Objective Last 24 Hour Vital Signs Date Time Temp Pulse Resp B/P (MAP) Pulse Ox O2 Delivery O2 Flow Rate FiO2 08/14/20 08:00 90 08/14/20 08:00 Nasal Cannula 2.0 Nasal Cannula 2.0 08/14/20 04:00 91 08/14/20 04:00 98.2 94 22 143/91 (108) 97 08/14/20 04:00 Nasal Cannula 2.0 Nasal Cannula 2.0 08/14/20 00:00 Nasal Cannula 2.0 Nasal Cannula 2.0 08/14/20 00:00 98.1 99 22 148/81 (103) 99 08/13/20 23:52 80 08/13/20 20:00 98.7 91 22 154/77 (102) 100 08/13/20 20:00 Nasal Cannula 2.0 Nasal Cannula 2.0 08/13/20 19:33 98 Nasal Cannula 3.0 28 08/13/20 19:22 69 08/13/20 16:00 97.3 64 18 145/89 (107) 99 08/13/20 16:00 Nasal Cannula 2.0 Nasal Cannula 2.0 08/13/20 16:00 75 08/13/20 13:15 97.9 91 18 143/81 95 Nasal Cannula 3 08/13/20 13:05 100 15 149/78 95 Nasal Cannula 3 08/13/20 12:55 88 16 142/76 97 Nasal Cannula 3 08/13/20 12:45 94 16 163/72 98 Nasal Cannula 3 08/13/20 12:40 91 18 140/96 98 Nasal Cannula 3 08/13/20 12:35 97.1 55 14 142/60 98 Nasal Cannula 3 08/13/20 12:00 62 Intake and Output 08/13/20 08/14/20 19:00 07:00 Intake Total 880 ml 840 ml Output Total 400 ml 600 ml Balance 480 ml 240 ml Free Water 40 ml 340 ml IV Total 800 ml Tube Feeding 40 ml 500 ml Output Urine Total 400 ml 600 ml Laboratory Tests 08/13/20 11:27: POC Whole Blood Glucose 125H 08/13/20 17:55: POC Whole Blood Glucose 113H 08/13/20 23:13: POC Whole Blood Glucose 120H 08/14/20 04:55: POC Whole Blood Glucose 121H Height (Feet): 5 Height (Inches): 4.00 Weight (Pounds): 130 General Appearance: no apparent distress EENT: normal ENT inspection Neck: supple Cardiovascular: normal rate Respiratory/Chest: decreased breath sounds Abdomen: normal bowel sounds, non tender, soft Extremities: non-tender Assessment/Plan Problem List: (1) HTN (hypertension) ICD Codes: I10 - Essential (primary) hypertension SNOMED: 86877519 (2) BPH (benign prostatic hyperplasia) ICD Codes: N40.0 - Benign prostatic hyperplasia without lower urinary tract sy mptoms SNOMED: 883445300, 233027084 (3) History of CVA (cerebrovascular accident) ICD Codes: Z86.73 - Personal history of transient ischemic attack (TIA), and cerebral infarction without residual deficits; J12.89 - Other viral pneumonia SNOMED: 345490490, 086932207 (4) Multifocal pneumonia ICD Codes: J18.9 - Pneumonia, unspecified organism; J12.89 - Other viral pneumonia SNOMED: 485801654, 962557033 (5) Aphasia ICD Codes: R47.01 - Aphasia; J12.89 - Other viral pneumonia SNOMED: 02996473, 309608137 Assessment/Plan: s/p EGD/PEG GTF monitor for residuals GT flush will Jcarlos Girard MD Aug 14, 2020 10:40
--- NOTE | 2020-08-14 10:55 | Pulmonology Progress Note ---
Subjective ROS Limited/Unobtainable: No Constitutional: Reports: no symptoms Hematologic: Reports: no symptoms Musculoskeletal: Reports: no symptoms Allergies: Coded Allergies: No Known Allergies (Unverified , 04/30/12) Objective Last 24 Hour Vital Signs Date Time Temp Pulse Resp B/P (MAP) Pulse Ox O2 Delivery O2 Flow Rate FiO2 08/14/20 08:00 90 08/14/20 08:00 Nasal Cannula 2.0 Nasal Cannula 2.0 08/14/20 04:00 91 08/14/20 04:00 98.2 94 22 143/91 (108) 97 08/14/20 04:00 Nasal Cannula 2.0 Nasal Cannula 2.0 08/14/20 00:00 Nasal Cannula 2.0 Nasal Cannula 2.0 08/14/20 00:00 98.1 99 22 148/81 (103) 99 08/13/20 23:52 80 08/13/20 20:00 98.7 91 22 154/77 (102) 100 08/13/20 20:00 Nasal Cannula 2.0 Nasal Cannula 2.0 08/13/20 19:33 98 Nasal Cannula 3.0 28 08/13/20 19:22 69 08/13/20 16:00 97.3 64 18 145/89 (107) 99 08/13/20 16:00 Nasal Cannula 2.0 Nasal Cannula 2.0 08/13/20 16:00 75 08/13/20 13:15 97.9 91 18 143/81 95 Nasal Cannula 3 08/13/20 13:05 100 15 149/78 95 Nasal Cannula 3 08/13/20 12:55 88 16 142/76 97 Nasal Cannula 3 08/13/20 12:45 94 16 163/72 98 Nasal Cannula 3 08/13/20 12:40 91 18 140/96 98 Nasal Cannula 3 08/13/20 12:35 97.1 55 14 142/60 98 Nasal Cannula 3 08/13/20 12:00 62 Intake and Output 08/13/20 08/14/20 19:00 07:00 Intake Total 880 ml 840 ml Output Total 400 ml 600 ml Balance 480 ml 240 ml Free Water 40 ml 340 ml IV Total 800 ml Tube Feeding 40 ml 500 ml Output Urine Total 400 ml 600 ml General Appearance: WD/WN, no acute distress HEENT: normocephalic, atraumatic Respiratory: chest wall non-tender, respiratory distress, rhonchi - left, rhonchi - right Cardiovascular: normal rate Abdomen: normal bowel sounds, no organomegaly Genitourinary: normal external genitalia Skin: no rash Neurologic: aphasia Laboratory Tests 08/13/20 11:27: POC Whole Blood Glucose 125H 08/13/20 17:55: POC Whole Blood Glucose 113H 08/13/20 23:13: POC Whole Blood Glucose 120H 08/14/20 04:55: POC Whole Blood Glucose 121H Current Medications Medications (Trade) Dose Ordered Sig/Ankush Route PRN Reason Start Time Stop Time Status Last Admin Dose Admin Acetaminophen (Tylenol) 650 mg Q4H PRN GT Temp >100.5 08/01/20 12:30 08/31/20 12:29 08/03/20 10:14 Dextrose (Dextrose 50%) 50 ml Q30M PRN IV Hypoglycemia 07/03/20 22:45 10/01/20 22:44 Heparin Sodium (Porcine) (Heparin 5000 units/ml) 5,000 units EVERY 12 HOURS SUBQ 07/03/20 21:00 08/17/20 20:59 08/14/20 09:08 Insulin Aspart (NovoLOG) EVERY 6 HOURS SUBQ 07/13/20 06:00 10/02/20 06:29 08/11/20 00:30 Nitroglycerin (Ntg) 0.4 mg Q5M PRN SL Prn Chest Pain 08/01/20 10:15 08/31/20 10:09 Ondansetron HCl (Zofran) 4 mg Q6H PRN IVP Nausea & Vomiting 08/01/20 14:30 08/31/20 14:29 Pantoprazole (Protonix) 40 mg DAILY IV 07/18/20 09:00 08/17/20 08:59 08/14/20 09:05 Polyethylene Glycol (Miralax) 17 gm DAILYPRN PRN GT Constipation 08/01/20 10:15 08/31/20 10:14 08/13/20 23:14 Promethazine HCl/ Codeine (Phenergan with Codeine) 5 ml Q4H PRN GT For Cough 08/01/20 10:14 08/31/20 10:13 08/05/20 22:05 Assessment/Plan Problems: (1) Acute encephalopathy (2) 2019 novel coronavirus disease (COVID-19) (3) Severe sepsis (4) HTN (hypertension) (5) Aphasia (6) Alzheimer's dementia (7) History of CVA (cerebrovascular accident) (8) BPH (benign prostatic hyperplasia) Assessment/Plan got Gtube done, tolerating well titrate fio2 to sat of 92% frequent suctioning check electrolytes aspiration precaution dvt prophylaxis. dc to long term Kya Carreno MD Aug 14, 2020 10:55
--- NOTE | 2020-08-14 11:40 | NUR ---
*-*DISCHARGE PLANNING*-* PATIENT HAS BEEN ACCEPTED AND WILL BE DIS[facility]GED TO: [facility] T: [phone] FOR NURSE TO NURSE REPORT ROOM# 15.[facility] TRAN[facility]ORTATION SET FOR 1PM S/W AISHA [id number] PLACED A CALL TO PATIENTS FAMILY IONA MCCALLUM AND LEX HOFFMAN, NO ANSWER, UNABLE TO LEAVE VOICE MESSAGE
--- NOTE | 2020-08-14 11:45 | NUR ---
NURSE NOTES: Pt received from Yousif Mcnamara RN. Pt in bed in distress, hypertensive, sating 90% on 6 liters, tachycardic, gtube off. Called RT immediately, contacted Dr. Carreno and informed him of pt condition. RT did deep suction and 100 ml of gtube feeding taken out.
--- NOTE | 2020-08-14 12:40 | NUR ---
NURSE NOTES: Pt sustaining tachycardia 130s-140s, Dr. Matt informed, Stat EKG done.
--- NOTE | 2020-08-14 13:32 | NUR ---
NURSE NOTES: Per Dr. Shaka ALCALA re tachycardia, it is related to aspiration.
--- NOTE | 2020-08-14 13:42 | Diagnostic Imaging Report ---
. Indication: Cough Technique: One view of the chest Comparison: 08/08/2020 Findings: Suboptimal inspiration currently. Endotracheal and orogastric tubes are no longer present. Bilateral right perihilar and lung base, left infrahilar and basilar infiltrates are again demonstrated, stable or slightly worse. Heart size normal. Right shoulder prosthesis is again demonstrated. Impression: Stable or slightly worse infiltrates bilaterally Interim extubation
--- NOTE | 2020-08-14 13:43 | Nephrology Progress Note ---
Assessment/Plan Problem List: (1) Dehydration (2) MELANIE (acute kidney injury) (3) Renal failure (ARF), acute on chronic (4) Hypoxia (5) Acute encephalopathy (6) Electrolyte imbalance Assessment 79-year-old male is admitted with acute hypoxic respiratory failure most likely secondary to pneumonia and sepsis, UTI. Acute on chronic renal failure Dehydration Electrolyte imbalances, hypernatremia Hypoalbuminemia Diabetes type 2 History of congestive heart failure Hypertension Hyperlipemia Alzheimer's Previous COVID-19 infection in May 2020 Plan August 14: Status quo. Remains stable from renal standpoint of view. Continue on nasal cannula postextubation. Will check lab tomorrow. August 13: Remains on nasal cannula. Labs reviewed. Stable from renal standpoint of view. August 12: Continue to do well post extubation. Labs reviewed. Renal parameters stable. Continue per consultants. August 11: Remain extubated on nasal cannula. Labs reviewed. Renal parameters stable. August 10: Discussed with RN. Patient now extubated. On nasal cannula. Renal parameters stable. Continue per consultants. August 09: Discussed with FLORES Holliday. Weaning in process. It seems like patient is tolerating better. Labs reviewed. Continue per consultants. August 08: Remains in ICU. Status unchanged. Labs and medication list reviewed. Remains full code. Weaning continues to fail. August 07: Remains in ICU. Remains intubated. Remains full code. Continues to be on weaning trials. Renal parameters are stable. August 06: Patient remains in ICU. Full code. Intubated. Fails weaning. Labs reviewed. Stable from renal standpoint of view. Discussed with RN. August 05: Labs reviewed. Discussed with RN. Abnormal electrolyte addressed. Remains intubated on ventilator. Continue per consultants. August 04: Labs reviewed. Discussed with RN. Stable from renal standpoint of view. Main issue is weaning from ventilator that keeps failing. Continue per consultants. August 03: Labs reviewed. Discussed with RN. Stable from renal standpoint of view. Continue per consultants. August 02: Patient seen and discussed with RN. Labs reviewed. Remains intubated. Trial of weaning this being attempted. Continue per consultants. August 01: Remains intubated. Labs reviewed. Renal parameters stable. Continue per consultants. July 31: Remains on mechanical ventilation. Labs reviewed. Abnormal electrolytes addressed. Stable from renal standpoint of view. July 30: Remains intubated. Remains full code. Labs reviewed. Low phosphorus replaced. Continue to monitor renal parameters. Continue per consultants. July 29: Failed weaning. Remains intubated. Remains full closed. Labs reviewed. Stable from renal standpoint view. July 28: Remains in ICU. Remains full code. Labs are reviewed. Phosphorus supplement given. Continue per consultants. July 27: Remains in ICU. Full code. Labs reviewed. Remains intubated. Stable renal parameters. July 26: In ICU. Full code. Discussed with RN. Stable renal parameters. July 25: Seen in ICU. Discussed with FLORES Holliday. Flomax discontinued. Labs reviewed. Stable from renal standpoint of view. July 24: Seen in ICU. Discussed with FLORES Holliday. Remains on pressor. Electrolyte abnormalities noted and addressed. Continue per consultants. Patient remains full code. July 23: Seen in ICU. Discussed with FLORES Barrera. Blood pressure remains a l ittle requiring pressors. Labs reviewed. Stable renal parameters. Continue per consultants. July 22: Remains intubated. Full code. Blood pressure borderline low. Will increase midodrine dose. Discussed with RN. Continue to monitor renal parameters and electrolytes. July 21: Intubated. Full code. Labs reviewed. Stable from renal standpoint of view. Continue per consultants. July 20: Remains intubated. Full code. Labs reviewed. Electrolytes within normal limit. Continue per consultants. July 19: In ICU. Remains intubated on ventilator. Remains full code. Low potassium addressed. Blood pressure fluctuating. Continue per consultants. July 18: Patient in ICU. Intubated on ventilator. On 6 mics of Levophed. Will give 100 cc albumin 25%. K-Phos IV ordered. Continue per consultants. Continue monitor renal parameters and electrolytes. July 17: Status unchanged. Transfer to [facility] for seizure. Stable from renal standpoint to view. Continue per consultants. July 16: Status quo. Labs reviewed. Renal parameters stable. Continue per consultants. July 15: On nonrebreather mask. Labs reviewed. Renal parameters stable.Continue per broom builder. Clinically unchanged. July 14: On nonrebreather mask. Inflammatory markers gradually declining. Renal parameters stable. Continue per pulmonary. July 13: Remains on nonrebreather mask. Inflammatory markers remain elevated. Renal parameters somewhat stable. Continue per pulmonary and ID. Remains full code. July 12: Patient on nonrebreather mask. Labs noted. Serum creatinine down to 1.3. Continue per consultants. July 11: Patient on nonrebreather mask. Transfer to telemetry when seen this morning. Labs noted. Continue per consultants. Serum creatinine erin to 1.7. Continue to monitor renal parameters. Continue to monitor vancomycin level July 10: Patient is not doing well clinically. Mild respiratory distress. ABG noted. Somewhat hypoxic. CBC and chemistry panel ordered. Discussed with FLORES Cho. Will defer to pulmonary management to specialist. Continue per ID. Renal parameters remained stable as of July 09. July 09: Labs reviewed. Renal parameters stable. Continue per consultants. July 08: Labs reviewed. Potassium via NG tube ordered. IV fluids stopped. Continue per consultants. July 07: Labs reviewed. Low potassium and low phosphorus replaced. Continue per consultants. Remains stable from renal standpoint of view. July 06: Patient remains n.p.o. IV fluid down to 50 cc an hour. Potassium supplement intravenously ordered. Continue per consultants. Previously: Patient is n.p.o., will continue on IV fluid of D5W 75 cc an hour We will monitor electrolytes and renal parameters Avoid nephrotoxic's Start p.o. when he clears by speech therapist, meanwhile aspiration precautions Keep the blood pressure and blood sugar in check Per orders Subjective ROS Limited/Unobtainable: No Constitutional: Reports: malaise Objective Objective Last 24 Hour Vital Signs Date Time Temp Pulse Resp B/P (MAP) Pulse Ox O2 Delivery O2 Flow Rate FiO2 08/14/20 12:00 Non-Rebreather 15.0 08/14/20 12:00 158 08/14/20 08:00 90 08/14/20 08:00 Nasal Cannula 2.0 Nasal Cannula 2.0 08/14/20 04:00 91 08/14/20 04:00 98.2 94 22 143/91 (108) 97 08/14/20 04:00 Nasal Cannula 2.0 Nasal Cannula 2.0 08/14/20 00:00 Nasal Cannula 2.0 Nasal Cannula 2.0 08/14/20 00:00 98.1 99 22 148/81 (103) 99 08/13/20 23:52 80 08/13/20 20:00 98.7 91 22 154/77 (102) 100 08/13/20 20:00 Nasal Cannula 2.0 Nasal Cannula 2.0 08/13/20 19:33 98 Nasal Cannula 3.0 28 08/13/20 19:22 69 08/13/20 16:00 97.3 64 18 145/89 (107) 99 08/13/20 16:00 Nasal Cannula 2.0 Nasal Cannula 2.0 08/13/20 16:00 75 Intake and Output 08/13/20 08/14/20 19:00 07:00 Intake Total 880 ml 840 ml Output Total 400 ml 600 ml Balance 480 ml 240 ml Free Water 40 ml 340 ml IV Total 800 ml Tube Feeding 40 ml 500 ml Output Urine Total 400 ml 600 ml Laboratory Tests 08/13/20 17:55: POC Whole Blood Glucose 113H 08/13/20 23:13: POC Whole Blood Glucose 120H 08/14/20 04:55: POC Whole Blood Glucose 121H Height (Feet): 5 Height (Inches): 4.00 Weight (Pounds): 130 General Appearance: no apparent distress Cardiovascular: tachycardia Respiratory/Chest: decreased breath sounds Abdomen: soft, distended Tino Connors MD Aug 14, 2020 13:43
--- NOTE | 2020-08-14 14:03 | Cardiac Electrophysiology PN ---
Assessment/Plan Assessment/Plan 1. Sinus tachycardia likely due to aspiration. No atrial fib. Ruled out for OK Echo EF 55%. 2. Long run of 31 beats of Nonsustained VT on 07/14/2020. Cardiac cath after stabilization. 3. Aníbal 30, Asystole while on the Vent due to resp failure/ likely mucus plug . S/P Code Off midodrine 4. S/P Respiratory failure, on antibiotic Extubated 08/09/20 5. S/P Septic shock. Off Levophed 6. History of previous COVID infection in May 2020 and July 2020 Now negative again and off isolation. 7. Dementia. 8. Dysphagia, Failed swallow eval S/P PEG 08/13/[address] Cecilia LUCAS RN Subjective Subjective Had 31 beats of VT on 07/14/20 and 5 beats 07/19/20 Coded on 07/23/20 as sat dropped to 20% and got aníbal 30s and PEA and pulseless Transferred out of ICU after extubated 08/09/20 Failed Swallow eval. S/P PEG by Dr Brooks 08/13/20 Aspirated GT material and around 100cc was suctioned. Now sinus tach in 120-130s. ECG confirmed sinus tach today Objective Last 24 Hour Vital Signs Date Time Temp Pulse Resp B/P (MAP) Pulse Ox O2 Delivery O2 Flow Rate FiO2 08/14/20 12:00 Non-Rebreather 15.0 08/14/20 12:00 158 08/14/20 08:00 90 08/14/20 08:00 Nasal Cannula 2.0 Nasal Cannula 2.0 08/14/20 04:00 91 08/14/20 04:00 98.2 94 22 143/91 (108) 97 08/14/20 04:00 Nasal Cannula 2.0 Nasal Cannula 2.0 08/14/20 00:00 Nasal Cannula 2.0 Nasal Cannula 2.0 08/14/20 00:00 98.1 99 22 148/81 (103) 99 08/13/20 23:52 80 08/13/20 20:00 98.7 91 22 154/77 (102) 100 08/13/20 20:00 Nasal Cannula 2.0 Nasal Cannula 2.0 08/13/20 19:33 98 Nasal Cannula 3.0 28 08/13/20 19:22 69 08/13/20 16:00 97.3 64 18 145/89 (107) 99 08/13/20 16:00 Nasal Cannula 2.0 Nasal Cannula 2.0 08/13/20 16:00 75 Intake and Output 08/13/20 08/14/20 19:00 07:00 Intake Total 880 ml 840 ml Output Total 400 ml 600 ml Balance 480 ml 240 ml Free Water 40 ml 340 ml IV Total 800 ml Tube Feeding 40 ml 500 ml Output Urine Total 400 ml 600 ml Laboratory Tests Test 08/13/20 17:55 08/13/20 23:13 08/14/20 04:55 POC Whole Blood Glucose 113 MG/DL (74-106) H 120 MG/DL (74-106) H 121 MG/DL (74-106) H Objective HEAD AND NECK: No JVD. LUNGS: Coarse rhonchi. CARDIOVASCULAR: Irregular S1 and S2 with no gallop. ABDOMEN: Soft.PEG in place EXTREMITIES: No pitting edema. Klever Matt MD Aug 14, 2020 14:03
--- NOTE | 2020-08-14 15:00 | NUR ---
NURSE NOTES: Dr. Brooks informed about aspiration event earlier today, per MD keep NPO remainder of the day.
--- NOTE | 2020-08-14 16:25 | NUR ---
DISCHARGE HELD DISCHARGE ON HOLD D/T EMESIS TACHYCARDIA DESATURATION
--- NOTE | 2020-08-14 18:03 | NUR ---
NURSE NOTES: please note that 1800 Novolog held because BS is trending down and pt is still off G tube per Dr. Brooks
--- NOTE | 2020-08-14 19:30 | NUR ---
NURSE NOTES: RECEIVED PATIENT FROM FLORES CAPONE.AWAKE BUT NON VERBAL.ON 10L 02 VIA FACE MASK WITH 96% SATURATION.BP WNL ,FEBRILE 100.7,WILL MEDICATE PATIENT WITH TYLENOL.REPOSITIONED PATIENT FOR COMFORT,ORAL CARE DONE.GT CLAMPED PT NPO ORDERED FOR VOMITING.NOTED 60 ML RESIDUAL ,KEPT HOB AT 35 DEGREES.TIERNEY TO GRAVITY FOR URINARY RETENTION.
--- NOTE | 2020-08-14 19:34 | NUR ---
NURSE HAND-OFF REPORT: Important Events on Shift:[Pt aspirated on 100ml of gtube feeding. removed via deep suction. remained tachy after this event. no fever noted. Discharge canceled ] Patient Status: [in bed resting stable] Diet: [Per Dr Brooks NPO for rest of day] Pending Orders: [] Pending Results/Labs:[] Pending MD notification:[Please ask Dr. Brooks when he wants to restart feeding and what the new goal should be as 60cc cause pt to vomit] Latest Vital Signs: Temperature 97.0 , Pulse 123 , B/P 113 /71 , Respiratory Rate 22 , O2 SAT 96 , Simple Mask, O2 Flow Rate 6.0 . Vital Sign Comment: [Dr. Matt aware of Tachy.] EKG Rhythm: Sinus Tachycardia Rhythm change?: N MD Notified?: Y -Dr. Shaka EDUARDO Response: Latest Gonzalez Fall Score: 45 Fall Risk: High Risk Safety Measures: Call light Within Reach, Bed Alarm Zone 1, Side Rails Side Rails x3, Bed position Low and Locked. Fall Precautions: Yellow Socks Yellow Gown Door Sign Patient Fall Education Report given to [Soha TANNER].
[2020-08-14] MEDS: Acetaminophen 650mg/20.3ml GT PRN (22:01)
[2020-08-15] MEDS: NovoLOG Insulin Flexpen SUBQ SCH ×4 (06:08→23:16)
--- NOTE | 2020-08-15 06:43 | General Progress Note ---
Subjective ROS Limited/Unobtainable: No Allergies: Coded Allergies: No Known Allergies (Unverified , 04/30/12) Objective Last 24 Hour Vital Signs Date Time Temp Pulse Resp B/P (MAP) Pulse Ox O2 Delivery O2 Flow Rate FiO2 08/15/20 04:19 Simple Mask 10.0 08/15/20 04:00 92 08/15/20 00:04 Simple Mask 10.0 08/14/20 23:45 110 08/14/20 23:36 99.0 108 22 113/59 (77) 96 08/14/20 22:42 100.6 08/14/20 20:00 100.7 120 22 113/71 (85) 96 08/14/20 20:00 Simple Mask 10.0 08/14/20 20:00 117 08/14/20 19:09 96 Simple Mask 10.0 60 08/14/20 16:00 97.0 123 22 113/71 (85) 94 08/14/20 16:00 Simple Mask 10.0 08/14/20 16:00 122 08/14/20 12:00 Non-Rebreather 15.0 08/14/20 12:00 97.2 121 22 153/107 (122) 90 08/14/20 12:00 158 08/14/20 08:00 90 08/14/20 08:00 Nasal Cannula 2.0 Nasal Cannula 2.0 08/14/20 08:00 97.2 92 22 147/88 (107) 99 Intake and Output 08/14/20 08/15/20 19:00 07:00 Intake Total 110 ml 120 ml Output Total 200 ml 275 ml Balance -90 ml -155 ml Free Water 120 ml Tube Feeding 110 ml Output Urine Total 200 ml 275 ml Laboratory Tests 08/14/20 23:29: POC Whole Blood Glucose 171H 08/15/20 05:21: POC Whole Blood Glucose 145H Height (Feet): 5 Height (Inches): 4.00 Weight (Pounds): 130 General Appearance: no apparent distress EENT: normal ENT inspection Neck: supple Cardiovascular: normal rate Respiratory/Chest: decreased breath sounds Abdomen: normal bowel sounds, non tender, soft Extremities: non-tender Assessment/Plan Problem List: (1) HTN (hypertension) ICD Codes: I10 - Essential (primary) hypertension SNOMED: 97291401 (2) BPH (benign prostatic hyperplasia) ICD Codes: N40.0 - Benign prostatic hyperplasia without lower urinary tract symptoms SNOMED: 403468669, 966731560 (3) History of CVA (cerebrovascular accident) ICD Codes: Z86.73 - Personal history of transient ischemic attack (TIA), and cerebral infarction without residual deficits; J12.89 - Other viral pneumonia SNOMED: 483381584, 078481082 (4) Multifocal pneumonia ICD Codes: J18.9 - Pneumonia, unspecified organism; J12.89 - Other viral pneumonia SNOMED: 316247707, 510552595 (5) Aphasia ICD Codes: R47.01 - Aphasia; J12.89 - Other viral pneumonia SNOMED: 82635020, 392478268 Assessment/Plan: s/p EGD/PEG GTF monitor for residuals GT flush will Jcarlos Girard MD Aug 15, 2020 06:43
--- NOTE | 2020-08-15 07:21 | NUR ---
NURSE HAND-OFF REPORT: Important Events on Shift:febrile 100.7,tylenol given.Still NPO per MD order Patient Status: Stable Diet: NPO Pending Orders: Sputum culture,unable to get sputum sample,attempted to suction but pt bleeds,to start GT feeding per Dr Brooks Pending Results/Labs: Pending MD notification: Latest Vital Signs: Temperature 99.0 , Pulse 92 , B/P 113 /59 , Respiratory Rate 22 , O2 SAT 96 , Simple Mask, O2 Flow Rate 10.0 . Vital Sign Comment: EKG Rhythm: Sinus Rhythm Rhythm change?: N MD Notified?: Y -Dr. Shaka EDUARDO Response: Latest Gonzalez Fall Score: 45 Fall Risk: High Risk Safety Measures: Call light Within Reach, Bed Alarm Zone 1, Side Rails Side Rails x3, Bed position Low and Locked. Fall Precautions: Yellow Socks Yellow Gown Door Sign Patient Fall Education Report given to FLORES Silva.
[2020-08-15 07:50] VITALS: BP 148/99
[2020-08-15] MEDS: Pantoprazole Inj IV SCH (09:36)
[2020-08-15] MEDS: Heparin 5000 units/ml inj SUBQ SCH ×2 (09:37→21:09)
--- NOTE | 2020-08-15 10:39 | Nephrology Progress Note ---
Assessment/Plan Problem List: (1) Dehydration (2) MELANIE (acute kidney injury) (3) Renal failure (ARF), acute on chronic (4) Hypoxia (5) Acute encephalopathy (6) Electrolyte imbalance Assessment 79-year-old male is admitted with acute hypoxic respiratory failure most likely secondary to pneumonia and sepsis, UTI. Acute on chronic renal failure Dehydration Electrolyte imbalances, hypernatremia Hypoalbuminemia Diabetes type 2 History of congestive heart failure Hypertension Hyperlipemia Alzheimer's Previous COVID-19 infection in May 2020 Plan August 15: Status quo. Stable from renal standpoint of view. No labs drawn today. Will check chemistries in a.m. Continue per consultants. August 14: Status quo. Remains stable from renal standpoint of view. Continue on nasal cannula post extubation. Will check lab tomorrow. August 13: Remains on nasal cannula. Labs reviewed. Stable from renal standpoint of view. August 12: Continue to do well post extubation. Labs reviewed. Renal parameters stable. Continue per consultants. August 11: Remain extubated on nasal cannula. Labs reviewed. Renal parameters stable. August 10: Discussed with RN. Patient now extubated. On nasal cannula. Renal parameters stable. Continue per consultants. August 09: Discussed with FLORES Holliday. Weaning in process. It seems like patient is tolerating better. Labs reviewed. Continue per consultants. August 08: Remains in ICU. Status unchanged. Labs and medication list reviewed. Remains full code. Weaning continues to fail. August 07: Remains in ICU. Remains intubated. Remains full code. Continues to be on weaning trials. Renal parameters are stable. August 06: Patient remains in ICU. Full code. Intubated. Fails weaning. Labs reviewed. Stable from renal standpoint of view. Discussed with RN. August 05: Labs reviewed. Discussed with RN. Abnormal electrolyte addressed. Remains intubated on ventilator. Continue per consultants. August 04: Labs reviewed. Discussed with RN. Stable from renal standpoint of view. Main issue is weaning from ventilator that keeps failing. Continue per consultants. August 03: Labs reviewed. Discussed with RN. Stable from renal standpoint of view. Continue per consultants. August 02: Patient seen and discussed with RN. Labs reviewed. Remains intubated. Trial of weaning this being attempted. Continue per consultants. August 01: Remains intubated. Labs reviewed. Renal parameters stable. Continue per consultants. July 31: Remains on mechanical ventilation. Labs reviewed. Abnormal e lectrolytes addressed. Stable from renal standpoint of view. July 30: Remains intubated. Remains full code. Labs reviewed. Low phosphorus replaced. Continue to monitor renal parameters. Continue per consultants. July 29: Failed weaning. Remains intubated. Remains full closed. Labs reviewed. Stable from renal standpoint view. July 28: Remains in ICU. Remains full code. Labs are reviewed. Phosphorus supplement given. Continue per consultants. July 27: Remains in ICU. Full code. Labs reviewed. Remains intubated. Stable renal parameters. July 26: In ICU. Full code. Discussed with RN. Stable renal parameters. July 25: Seen in ICU. Discussed with FLORES Hloliday. Flomax discontinued. Labs reviewed. Stable from renal standpoint of view. July 24: Seen in ICU. Discussed with FLORES Holliday. Remains on pressor. Electrolyte abnormalities noted and addressed. Continue per consultants. Patient remains full code. July 23: Seen in ICU. Discussed with FLORES Barrera. Blood pressure remains a little requiring pressors. Labs reviewed. Stable renal parameters. Continue per consultants. July 22: Remains intubated. Full code. Blood pressure borderline low. Will increase midodrine dose. Discussed with RN. Continue to monitor renal parameters and electrolytes. July 21: Intubated. Full code. Labs reviewed. Stable from renal standpoint of view. Continue per consultants. July 20: Remains intubated. Full code. Labs reviewed. Electrolytes within normal limit. Continue per consultants. July 19: In ICU. Remains intubated on ventilator. Remains full code. Low potassium addressed. Blood pressure fluctuating. Continue per consultants. July 18: Patient in ICU. Intubated on ventilator. On 6 mics of Levophed. Will give 100 cc albumin 25%. K-Phos IV ordered. Continue per consultants. Continue monitor renal parameters and electrolytes. July 17: Status unchanged. Transfer to [facility] for seizure. Stable from renal standpoint to view. Continue per consultants. July 16: Status quo. Labs reviewed. Renal parameters stable. Continue per consultants. July 15: On nonrebreather mask. Labs reviewed. Renal parameters stable.Continue per civil cadd technician. Clinically unchanged. July 14: On nonrebreather mask. Inflammatory markers gradually declining. Renal parameters stable. Continue per pulmonary. July 13: Remains on nonrebreather mask. Inflammatory markers remain elevated. Renal parameters somewhat stable. Continue per pulmonary and ID. Remains full code. July 12: Patient on nonrebreather mask. Labs noted. Serum creatinine down to 1.3. Continue per consultants. July 11: Patient on nonrebreather mask. Transfer to telemetry when seen this morning. Labs noted. Continue per consultants. Serum creatinine erin to 1.7. Continue to monitor renal parameters. Continue to monitor vancomycin level July 10: Patient is not doing well clinically. Mild respiratory distress. ABG noted. Somewhat hypoxic. CBC and chemistry panel ordered. Discussed with FLORES Cho. Will defer to pulmonary management to specialist. Continue per ID. Renal parameters remained stable as of July 09. July 09: Labs reviewed. Renal parameters stable. Continue per consultants. July 08: Labs reviewed. Potassium via NG tube ordered. IV fluids stopped. Continue per consultants. July 07: Labs reviewed. Low potassium and low phosphorus replaced. Continue per consultants. Remains stable from renal standpoint of view. July 06: Patient remains n.p.o. IV fluid down to 50 cc an hour. Potassium supplement intravenously ordered. Continue per consultants. Previously: Patient is n.p.o., will continue on IV fluid of D5W 75 cc an hour We will monitor electrolytes and renal parameters Avoid nephrotoxic's Start p.o. when he clears by speech therapist, meanwhile aspiration precautions Keep the blood pressure and blood sugar in check Per orders Subjective ROS Limited/Unobtainable: No Constitutional: Reports: malaise Objective Objective Last 24 Hour Vital Signs Date Time Temp Pulse Resp B/P (MAP) Pulse Ox O2 Delivery O2 Flow Rate FiO2 08/15/20 08:00 Simple Mask 10.0 08/15/20 08:00 83 08/15/20 07:50 97.9 86 22 148/99 (115) 99 08/15/20 04:19 Simple Mask 10.0 08/15/20 04:00 92 08/15/20 00:04 Simple Mask 10.0 08/14/20 23:45 110 08/14/20 23:36 99.0 108 22 113/59 (77) 96 08/14/20 22:42 100.6 08/14/20 20:00 100.7 120 22 113/71 (85) 96 08/14/20 20:00 Simple Mask 10.0 08/14/20 20:00 117 08/14/20 19:09 96 Simple Mask 10.0 60 08/14/20 16:00 97.0 123 22 113/71 (85) 94 08/14/20 16:00 Simple Mask 10.0 08/14/20 16:00 122 08/14/20 12:00 Non-Rebreather 15.0 08/14/20 12:00 97.2 121 22 153/107 (122) 90 08/14/20 12:00 158 Intake and Output 08/14/20 08/15/20 19:00 07:00 Intake Total 110 ml 120 ml Output Total 200 ml 275 ml Balance -90 ml -155 ml Free Water 120 ml Tube Feeding 110 ml Output Urine Total 200 ml 275 ml No labs drawn today for chemistries laboratory Tests 08/14/20 23:29: POC Whole Blood Glucose 171H 08/15/20 05:21: POC Whole Blood Glucose 145H Height (Feet): 5 Height (Inches): 4.00 Weight (Pounds): 130 General Appearance: no apparent distress EENT: other - On simple mask Cardiovascular: normal rate, other - Variable rate Respiratory/Chest: decreased breath sounds Abdomen: distended Tino Connors MD Aug 15, 2020 10:39
--- NOTE | 2020-08-15 10:55 | NUR ---
RD ASSESSMENT & RECOMMENDATIONS SEE CARE ACTIVITY FOR COMPLETE ASSESSMENT DAILY ESTIMATED NEEDS: Needs based on DM, wound, pulmonary 59.5kg 25-35 kcals/kg 9949-7647 total kcals 1.25-2 g protein/kg 74-119 g total protein 25-30 mL/kg 2223-6316 total fluid mLs NUTRITION DIAGNOSIS: * Swallowing difficulty R/T dysphagia as evidenced by SPORTS DOCTOR eval, recs for NGT feeds, now s/p oral intubation (07/17), s/p code blue (07/23) now extubated, NPO, did not pass SPORTS DOCTOR eval, s/p PEG placement (08/13), on GT feeds. * Increased kcal and pro needs r/t wound healing as evidenced by sacral pressure injury stage 2. CURRENT TF:Glucerna 1.2 @ 60ml/hr x 24 hrs ENTERAL NUTRITION RECOMMENDATIONS: Glucerna 1.2 @ @60ml/hr x24 hrs to provide 1440ml, 1728 kcal, 86g pro, 1159ml free H2O - Initiate Glucerna 1.2 slowly @ 10ml/hr x 6hrs, advance 10ml q 4-6 hrs as tolerated to goal - TF @ goal meets 100% est kcal/prot needs - HOB over 30 degrees/ H2O flush per MD ADDITIONAL RECOMMENDATIONS: * Calibrated bedscale wt for accurate CBW * Monitor hemodyanmic stability: s/p code blue (07/23), now extubated * Monitor lytes, replete as needed * Wound care: add Sushil BID via PEG add Vit C 250mg QD * Consider added D5 until TF reaches goal to prevent hypoglycemia .
--- NOTE | 2020-08-15 10:57 | Pulmonolgy Critical Care Note ---
Critical Care - Asmt/Plan Assessment/Plan: ASSESSMENT Acute hypoxemic respiratory failure , requiring intubation ( initially 100% NRM) -s/p extubation Septic shock -resolved Pneumonia , possible aspiration Probable UTI Hx of COVID 19 -> 05/31 Dysphagia MELANIE-resolved Hypernatremia History of CVA Diabetes mellitus History of hypertension Alzheimer dementia PLAN OF CARE TIFFANIE s/p extubation O2 titrate to keep sat above 92% pulm toilet fup CXR and ABG prn off pressors, then was on Midodrine, now off Midodrine as well BP stable ECHO with pEF, r/o for WA cardio on board s/p abx DVT and GI prophylaxis strict aspiration precaution monitor renal parameters, lytes , correct electrolytes as needed ,avoid nephrotoxic BS management with SSI supportive care remains FC case discussed and evaluated by supervising physician Critical Care - Objective Last 24 Hour Vital Signs Date Time Temp Pulse Resp B/P (MAP) Pulse Ox O2 Delivery O2 Flow Rate FiO2 08/15/20 08:00 Simple Mask 10.0 08/15/20 08:00 83 08/15/20 07:50 97.9 86 22 148/99 (115) 99 08/15/20 04:19 Simple Mask 10.0 08/15/20 04:00 92 08/15/20 00:04 Simple Mask 10.0 08/14/20 23:45 110 08/14/20 23:36 99.0 108 22 113/59 (77) 96 08/14/20 22:42 100.6 08/14/20 20:00 100.7 120 22 113/71 (85) 96 08/14/20 20:00 Simple Mask 10.0 08/14/20 20:00 117 08/14/20 19:09 96 Simple Mask 10.0 60 08/14/20 16:00 97.0 123 22 113/71 (85) 94 08/14/20 16:00 Simple Mask 10.0 08/14/20 16:00 122 08/14/20 12:00 Non-Rebreather 15.0 08/14/20 12:00 97.2 121 22 153/107 (122) 90 08/14/20 12:00 158 Objective: General Appearance: no apparent distress, on simple mask 10 L O2 /min Lines, tubes and drains: R PICC intact HEENT: normocephalic, atraumatic, anicteric, Respiratory/Chest: BS overall clear, few isolated rhonchi Cardiovascular/Chest: normal peripheral pulses, SR on tele Abdomen: normal bowel sounds, non tender, soft : Wiley Extremities: no calf tenderness, normal capillary refill Neurologic: abnormal gait /bedridden Musculoskeletal: atrophy - BLE Accucheck: 145 Critical Care - Subjective ROS Limited/Unobtainable: Yes Interval Events: in TIFFANIE on 10 L O2 via simple mask no fevers, no leukocytosis Condition: critical IV Access: PICC - RUE intact EKG Rhythm: Sinus Rhythm FI02: 60 Vent Support Breath Rate: 12 Vent Tidal Volume: 600 Sputum Amount: Moderate PEEP: 0.0 PIP: 14 Tube Feeding Amount: 30 I&O: Intake and Output 08/14/20 08/15/20 19:00 07:00 Intake Total 110 ml 120 ml Output Total 200 ml 275 ml Balance -90 ml -155 ml Free Water 120 ml Tube Feeding 110 ml Output Urine Total 200 ml 275 ml CXR: CXR 08/14 Suboptimal inspiration currently. Endotracheal and orogastric tubes are no longer present. Bilateral right perihilar and lung base, left infrahilar and basilar infiltrates are again demonstrated, stable or slightly worse. Heart size normal. Right shoulder prosthesis is again demonstrated. ET-Tube: 7.2 ET Position: 25 Yari Baugh NP Aug 15, 2020 10:57
[2020-08-15] MEDS ORDERED: Albuterol/Ipratropium 3ml neb HHN PRN (11:00)
[2020-08-15] MEDS: Metoclopramide 10mg/10ml Liq NG SCH ×3 (11:34→23:16)
[2020-08-15 11:59] VITALS: BP 152/80
[2020-08-15] MEDS ORDERED: NS 275ml ONE (12:02)
[2020-08-15] MEDS ORDERED: D5NS 1000ml IV ONE (12:02)
[2020-08-15] MEDS: D5NS 1,000 ML IV SCH (12:15)
--- NOTE | 2020-08-15 12:48 | NUR ---
NURSE NOTES: Patient received from TIFFANIE from FLORES Nolan and FLORES Heard. Patient received awake, alert and oriented x 1, no SOB, bed set in lowest position with bed alarm on and breaks engaged, bed rails up x 2 for safety, no s/sx of pain or discomfort at this time, pt on 02 via simple face mask set at 10lpm tolerating well, Gtube intact and patent running as prescribed, IV line in place, will continue to monitor and proceed with plan of care, call light within reach. No belongings noted, skin check performed.
--- NOTE | 2020-08-15 12:57 | Cardiology Report ---
APPROVED REPORT EKG Measurement Heart [id number] <Conclusion> Sinus tachycardia Possible Left atrial enlargement Left axis deviation Nonspecific ST and T wave abnormality Abnormal ECG
--- NOTE | 2020-08-15 15:34 | Infectious Diseases Prog Note ---
Assessment/Plan 79yo M with: Respiratory code 2ry to mucus plug 07/23 Septic Shock- -recurrent Fever, recurrent, low grade Leukocytosis; recurrent; increased Acute hypoxic resp failure, on NRB mask> 4l NC; back on NRB, desaturation 07/09 > intubated 07/17 Pneumonia- >HAP Hx of COVID-19 PNA 05/20/2007/28 CXR: No significant interval change in the radiographic appearance the chest compared to one day prior. 07/25 Resp cx +MRSA, nl resp bobby UCx neg BCx NTD 07/24 COVID PCR neg --07/21 CXR: Bilateral infiltrates in a peribronchovascular distribution are unchanged. Left pleural effusion is unchanged. --07/19 CXR: Persistent bilateral patchy pulmonary opacities, most prominent in the left lower lung. --07/18 ucx neg sp cx MRSA (colonizer at this point) Bcx Neg --07/13 Bcx Neg 07/10 Sp cx MRSA (Vancomycin APOLONIA 1), ESBL E.coli 07/03 BCx NTD UA 15- WBC, UCx Neg 07/03 COVID rapid neg; 07/06 rapid COVID PCR + (from prior infection)- not new infection Flu A/B neg CXR: L pna Resp cx MRSA 07/30 Resp cx +ESBL E.coli & PsA 08/01 BCx NTD 08/02 CXR: Small bilateral pleural effusions with moderate vascular jaimee estion. Airspace consolidation in the left lower lung field may represent atelectasis however, correlate for infiltrate. This is improving when compared to the prior study. 08/03 BCx NTD 08/03 CXR: Increasing right basilar opacity, likely infiltrate, may also reflect increasing pleural fluid 08/14 CXR: Stable or slightly worse infiltrates bilaterally Interim extubation H/o COVID pna Tested positive 05/20/2007/03 Rapid Ag neg 07/06 Rapid Ag positive (from prior disease?) 07/24 COVID PCR neg MELANIE on CKD, [facility] Non-verbal VRE and MRSA colonized Plan: Start empiric IV Vancomycin and Meropenem given increasing respiratory requirements and low grade fever -08/10 SP jen #10 -07/31 SP linezolid #7 -07/27 SP meropenem #14 for ESBL pna -07/21 SP Micafungin #4 -07/17 SP IV Vancomycin #15 -11 SP Zosyn # SP Cefepime # SP Flagyl # Monitor CBC/CMP Monitor resp status Monitor temp curve and hemodynamics D/w RN Thank you for this consult. [facility] will continue to follow. Subjective Allergies: Coded Allergies: No Known Allergies (Unverified , 04/30/12) Tm 100.6 no leukocytosis Objective Last 24 Hour Vital Signs Date Time Temp Pulse Resp B/P (MAP) Pulse Ox O2 Delivery O2 Flow Rate FiO2 08/15/20 11:59 97.8 85 22 152/80 (104) 98 08/15/20 08:00 Simple Mask 10.0 08/15/20 08:00 83 08/15/20 07:50 97.9 86 22 148/99 (115) 99 08/15/20 04:19 Simple Mask 10.0 08/15/20 04:00 92 08/15/20 00:04 Simple Mask 10.0 08/14/20 23:45 110 08/14/20 23:36 99.0 108 22 113/59 (77) 96 08/14/20 22:42 100.6 08/14/20 20:00 100.7 120 22 113/71 (85) 96 08/14/20 20:00 Simple Mask 10.0 08/14/20 20:00 117 08/14/20 19:09 96 Simple Mask 10.0 60 08/14/20 16:00 97.0 123 22 113/71 (85) 94 08/14/20 16:00 Simple Mask 10.0 08/14/20 16:00 122 Height (Feet): 5 Height (Inches): 4.00 Weight (Pounds): 130 General Appearance: no apparent distress, on simple mask 10 L O2 /min Lines, tubes and drains: R PICC intact HEENT: normocephalic, atraumatic, anicteric, Respiratory/Chest: BS overall clear, few isolated rhonchi Cardiovascular/Chest: normal peripheral pulses, SR on tele Abdomen: normal bowel sounds, non tender, soft : Wiley Extremities: no calf tenderness, normal capillary refill Neurologic: abnormal gait /bedridden Musculoskeletal: atrophy - BLE Laboratory Tests Test 08/14/20 23:29 08/15/20 05:21 08/15/20 11:28 POC Whole Blood Glucose 171 MG/DL (74-106) H 145 MG/DL (74-106) H 151 MG/DL (74-106) H Current Medications Medications (Trade) Dose Ordered Sig/Ankush Route PRN Reason Start Time Stop Time Status Last Admin Dose Admin Acetaminophen (Tylenol) 650 mg Q4H PRN GT Temp >100.5 08/01/20 12:30 08/31/20 12:29 08/14/20 22:01 Albuterol/ Ipratropium (Albuterol/ Ipratropium) 3 ml Q4H PRN HHN Shortness of Breath 08/15/20 11:00 08/20/20 10:59 Dexamethasone (Decadron) 6 mg DAILY ORAL 08/15/20 12:30 08/24/20 09:01 08/15/20 13:04 Dextrose (Dextrose 50%) 50 ml Q30M PRN IV Hypoglycemia 07/03/20 22:45 10/01/20 22:44 Dextrose/Sodium Chloride 1,000 ml @ 50 mls/hr Q20H IV 08/15/20 12:15 08/29/20 20:44 08/15/20 12:15 Heparin Sodium (Porcine) (Heparin 5000 units/ml) 5,000 units EVERY 12 HOURS SUBQ 07/03/20 21:00 08/17/20 20:59 08/15/20 09:37 Insulin Aspart (NovoLOG) EVERY 6 HOURS SUBQ 07/13/20 06:00 10/02/20 06:29 08/15/20 11:35 Metoclopramide HCl (Reglan) 5 mg EVERY 6 HOURS NG 08/15/20 12:00 09/14/20 11:59 08/15/20 11:34 Nitroglycerin (Ntg) 0.4 mg Q5M PRN SL Prn Chest Pain 08/01/20 10:15 08/31/20 10:09 Ondansetron HCl (Zofran) 4 mg Q6H PRN IVP Nausea & Vomiting 08/01/20 14:30 08/31/20 14:29 Pantoprazole (Protonix) 40 mg DAILY IV 07/18/20 09:00 08/17/20 08:59 08/15/20 09:36 Polyethylene Glycol (Miralax) 17 gm DAILYPRN PRN GT Constipation 08/01/20 10:15 08/31/20 10:14 08/13/20 23:14 Promethazine HCl/ Codeine (Phenergan with Codeine) 5 ml Q4H PRN GT For Cough 08/01/20 10:14 08/31/20 10:13 08/05/20 22:05 Ashley Cho M.D. Aug 15, 2020 15:34
[2020-08-15] MEDS: Vancomycin 1.25gm Premix q24h IVPB SCH (17:21)
--- NOTE | 2020-08-15 17:28 | Internal Med Progress Note ---
Subjective Physician Name Dano Groves Attending Physician Ahsan Hodges MD Current Medications Medications (Trade) Dose Ordered Sig/Ankush Route PRN Reason Start Time Stop Time Status Last Admin Dose Admin Acetaminophen (Tylenol) 650 mg Q4H PRN GT Temp >100.5 08/01/20 12:30 08/31/20 12:29 08/14/20 22:01 Albuterol/ Ipratropium (Albuterol/ Ipratropium) 3 ml Q4H PRN HHN Shortness of Breath 08/15/20 11:00 08/20/20 10:59 Dexamethasone (Decadron) 6 mg DAILY ORAL 08/15/20 12:30 08/24/20 09:01 08/15/20 13:04 Dextrose (Dextrose 50%) 50 ml Q30M PRN IV Hypoglycemia 07/03/20 22:45 10/01/20 22:44 Dextrose/Sodium Chloride 1,000 ml @ 50 mls/hr Q20H IV 08/15/20 12:15 08/29/20 20:44 08/15/20 12:15 Heparin Sodium (Porcine) (Heparin 5000 units/ml) 5,000 units EVERY 12 HOURS SUBQ 07/03/20 21:00 08/17/20 20:59 08/15/20 09:37 Insulin Aspart (NovoLOG) EVERY 6 HOURS SUBQ 07/13/20 06:00 10/02/20 06:29 08/15/20 11:35 Meropenem 1 gm/ Sodium Chloride 55 ml @ 110 mls/hr Q8HR IVPB 08/15/20 22:00 08/20/20 21:59 Metoclopramide HCl (Reglan) 5 mg EVERY 6 HOURS NG 08/15/20 12:00 09/14/20 11:59 08/15/20 17:20 Nitroglycerin (Ntg) 0.4 mg Q5M PRN SL Prn Chest Pain 08/01/20 10:15 08/31/20 10:09 Ondansetron HCl (Zofran) 4 mg Q6H PRN IVP Nausea & Vomiting 08/01/20 14:30 08/31/20 14:29 Pantoprazole (Protonix) 40 mg DAILY IV 07/18/20 09:00 08/17/20 08:59 08/15/20 09:36 Polyethylene Glycol (Miralax) 17 gm DAILYPRN PRN GT Constipation 08/01/20 10:15 08/31/20 10:14 08/13/20 23:14 Promethazine HCl/ Codeine (Phenergan with Codeine) 5 ml Q4H PRN GT For Cough 08/01/20 10:14 08/31/20 10:13 08/05/20 22:05 Vancomycin HCl 250 ml @ 166.667 mls/hr Q24H IVPB 08/15/20 18:00 08/20/20 17:59 08/15/20 17:21 Vancomycin HCl ([facility] pharmacy to dose) 1 ea DAILY PRN MISC Per rx protocol 08/15/20 15:45 09/14/20 15:44 Allergies: Coded Allergies: No Known Allergies (Unverified , 04/30/12) Subjective 79 YO M admitted with shortness of breath. Now pneumonia; previously COVID pos itive. Cover for Int med-Dr Hodges. extubated 08/09/20. Failed swallow eval Objective Last Vital Signs Date Time Temp Pulse Resp B/P (MAP) Pulse Ox O2 Delivery O2 Flow Rate FiO2 08/15/20 11:59 97.8 85 22 152/80 (104) 98 08/15/20 08:00 Simple Mask 10.0 08/14/20 19:09 60 Laboratory Tests Test 08/14/20 23:29 08/15/20 05:21 08/15/20 11:28 08/15/20 17:19 POC Whole Blood Glucose 171 MG/DL (74-106) H 145 MG/DL (74-106) H 151 MG/DL (74-106) H 196 MG/DL (74-106) H Intake and Output 08/14/20 08/15/20 19:00 07:00 Intake Total 110 ml 120 ml Output Total 200 ml 275 ml Balance -90 ml -155 ml Free Water 120 ml Tube Feeding 110 ml Output Urine Total 200 ml 275 ml Objective PHYSICAL EXAMINATION: GENERAL: The patient awake with deep stimuli, open his eyes, however, cannot follow commands. The patient is on a Ventimask at this time, chronically ill-appearing. HEAD AND NECK: Pupils are equal and reactive to light. Anicteric. NECK: Supple. No JVD. LUNGS: Nasal cannula; wheezing, rhonchi, and decreased air in bases. HEART: S1, S2. Regular rhythm. Distant heart sounds. No murmur or gallop. ABDOMEN: Soft, nondistended, nontender. Positive bowel sounds. EXTREMITIES: No cyanosis, clubbing, or edema. NEUROLOGIC: Very limited secondary to the patient's status, cannot follow commands. Opens his eyes with deep stimuli and moving extremities spontaneously. Assessment/Plan Assessment/Plan ASSESSMENT: 1. Acute hypoxemic respiratory failure, most likely secondary to pneumonia and sepsis. 2. Sepsis secondary to urinary tract infection and pneumonia. 3. pneumonia=MRSA; ESBL E. coli 4. Acute kidney injury on chronic renal insufficiency. 5. Dehydration. 6. History of chronic congestive heart failure. 7. Diabetes type 2. 8. Dyslipidemia. 9. Hypertension. 10. Alzheimer's disease. 11. COVID 19 previous positive 12. Dysphagia PLAN: 1. ICU 2. Dr. Carreno,=Pulmonary Critical Care 3. Dr. Cho = Inf Dis. 4. IV= D5W due to the hypernatremia and dehydration. 5. antibiotics = meropenem; S/P micafungin and zyvox 6. Code status is full code. 7. DVT prophylaxis is heparin subcutaneous. 8. Failed swallow eval; PEG eval=Dano Hughes MD Aug 15, 2020 17:28
--- NOTE | 2020-08-15 18:32 | Cardiac Electrophysiology PN ---
Assessment/Plan Assessment/Plan 1. Sinus tachycardia likely due to aspiration. No atrial fib. Ruled out for IN Echo EF 55%. 2. Long run of 31 beats of Nonsustained VT on 07/14/2020. Cardiac cath after stabilization. 3. Aníbal 30, Asystole while on the Vent due to resp failure/ likely mucus plug . S/P Code Off midodrine 4. S/P Respiratory failure, on antibiotic Extubated 08/09/20 5. S/P Septic shock. Off Levophed 6. History of previous COVID infection in May 2020 and July 2020 Now negative again and off isolation. 7. Dementia. 8. Dysphagia, Failed swallow eval S/P PEG 08/13/[address] Brooks Resumed feeding DW RN Subjective Subjective Had 31 beats of VT on 07/14/20 and 5 beats 07/19/20 Coded on 07/23/20 as sat dropped to 20% and got aníbal 30s and PEA and pulseless Transferred out of ICU after extubated 08/09/20 Failed Swallow eval. S/P PEG by Dr Brooks 08/13/20 Aspirated GT material and around 100cc was suctioned. ECG confirmed sinus tach yesterday Objective Last 24 Hour Vital Signs Date Time Temp Pulse Resp B/P (MAP) Pulse Ox O2 Delivery O2 Flow Rate FiO2 08/15/20 11:59 97.8 85 22 152/80 (104) 98 08/15/20 08:00 Simple Mask 10.0 08/15/20 08:00 83 08/15/20 07:50 97.9 86 22 148/99 (115) 99 08/15/20 04:19 Simple Mask 10.0 08/15/20 04:00 92 08/15/20 00:04 Simple Mask 10.0 08/14/20 23:45 110 08/14/20 23:36 99.0 108 22 113/59 (77) 96 08/14/20 22:42 100.6 08/14/20 20:00 100.7 120 22 113/71 (85) 96 08/14/20 20:00 Simple Mask 10.0 08/14/20 20:00 117 08/14/20 19:09 96 Simple Mask 10.0 60 Intake and Output 08/14/20 08/15/20 19:00 07:00 Intake Total 110 ml 120 ml Output Total 200 ml 275 ml Balance -90 ml -155 ml Free Water 120 ml Tube Feeding 110 ml Output Urine Total 200 ml 275 ml Laboratory Tests Test 08/14/20 23:29 08/15/20 05:21 08/15/20 11:28 08/15/20 17:19 POC Whole Blood Glucose 171 MG/DL (74-106) H 145 MG/DL (74-106) H 151 MG/DL (74-106) H 196 MG/DL (74-106) H Objective HEAD AND NECK: No JVD. LUNGS: Coarse rhonchi. CARDIOVASCULAR: Tachy S1 and S2 with no gallop. ABDOMEN: Soft.PEG in place EXTREMITIES: No pitting edema. Klever Matt MD Aug 15, 2020 18:32
[2020-08-15 18:47] LABS: BILIRUBIN, URINE NEGATIVE (NEGATIVE); GLUCOSE, URINE (UA) 3+ (NEGATIVE); KETONES,URINE NEGATIVE (NEGATIVE); LEUKOCYTE ESTERASE ,URINE NEGATIVE (NEGATIVE); NITRITE,URINE NEGATIVE (NEGATIVE); PH,URINE 5 (4.5-8.0); PROTEIN,URINE 3+ (NEGATIVE); UROBILINOGEN,URINE 1 MG/DL (0.0-1.0)
[2020-08-15 18:50] LABS: APPEARANCE,URINE SLIGHTLY CLOUDY; COLOR,URINE YELLOW
--- NOTE | 2020-08-15 19:30 | NUR ---
NURSE NOTES: Received report from sincere mcclendon patient on bed, asleep. on simple mask at 10 lpm. no sob. no facial grimacing and moaning noted at the moment. with iv line on the left wrist running ivf ordered by . on GT feeding of glucerna 1.2 @ 60 mls/hr, residual of 10ml. kept head of bed elevated. flush gt as ordered. with ziegler catheter draining well. wound pictures taken by am nurse. call light and light button within easy reach.bed alarm on. bed locked and in lowest position. fall risk and aspiration precautions. will continue plan of care.
--- NOTE | 2020-08-15 19:31 | NUR ---
NURSE HAND-OFF: Important Events on Shift:[monitoring for any nausea and vomiting, turning and repositioning, IV fluids and ATB] Patient Status: [stable at the moment] Diet: [Glucerna 1.2 at 60 cc/hr] Pending Orders: [] Pending Results/Labs:[] Pending MD notification:[] Latest Vital Signs: Temperature 97.8 , Pulse 85 , B/P 152 /80 , Respiratory Rate 22 , O2 SAT 98 , Simple Mask, O2 Flow Rate 10.0 . Vital Sign Comment: [] Latest Gonzalez Fall Score: 45 Fall Risk: High Risk Safety Measures: Call light Within Reach, Bed Alarm Zone 1, Side Rails Side Rails x3, Bed position Low and Locked. Fall Precautions: Yellow Socks Yellow Gown Door Sign Patient Fall Education Report given to [FLORES Levi].
[2020-08-15 20:00] VITALS: BP 133/92
[2020-08-15] MEDS: Meropenem 1 GM in NS 55 ML IVPB SCH (21:09)
[2020-08-16] VITALS: BP 130/74
--- NOTE | 2020-08-16 02:00 | NUR ---
NURSE NOTES: CALLED RT TO COLLECT SPUTUM FOR CULTURE. RT SUCTIONED THE PATIENT NOTED WITH SPUTUM AND FEEDING COLLECTED ON THE SPECIMEN CUP 35 ML. LAB CALLED AND CONFIRMED THAT NEEDS TO COLLECT A NEW SPUTUM. CHARGE NURSE MADE AWARE.
[2020-08-16] MEDS: Meropenem 1 GM in NS 55 ML IVPB SCH ×3 (05:32→21:03)
[2020-08-16] MEDS: Metoclopramide 10mg/10ml Liq NG SCH ×4 (05:32→23:30)
[2020-08-16] MEDS: NovoLOG Insulin Flexpen SUBQ SCH ×4 (05:33→23:31)
--- NOTE | 2020-08-16 06:33 | NUR ---
NURSE HAND-OFF: Important Events on Shift: culture sputum collected by RT and sent to lab; o2 care, ziegler care, NPO Patient Status: STABLE Diet: NPO Pending Orders: Pending Results/Labs: Pending MD notification: Latest Vital Signs: Temperature 98.1 , Pulse 80 , B/P 130 /74 , Respiratory Rate 18 , O2 SAT 98 , Simple Mask, O2 Flow Rate 10.0 . Vital Sign Comment: Latest Gonzalez Fall Score: 45 Fall Risk: High Risk Safety Measures: Call light Within Reach, Bed Alarm Zone 1, Side Rails Side Rails x3, Bed position Low and Locked. Fall Precautions: Yellow Socks Yellow Gown Door Sign Patient Fall Education Addendum: 08/16/20 at 0731 by Laurence Rosales RN HAND-OFF: Report given to sincere mcclendon.
--- NOTE | 2020-08-16 07:19 | NUR ---
NURSE NOTES: Report received from FLORES Levi. Pt is in bed, awake, alert and oriented x 1, non verbal, no SOB, bed in lowest position with breaks engaged and alarm on, no s/sx of pain or discomfort at this time, IV line on left wrist in place, on 02 at 10 lpm via face mask, NPO at this time d/t episode of emesis, no episode of hypo/hyperglycemia at this time, will continue to monitor and proceed with plan of care, call light within reach.
[2020-08-16 07:41] LABS: HEMATOCRIT 35.1 % (42.0-52.0); MEAN CORPUSCULAR VOLUME 91 FL (80-99); PLATELET COUNT 344 K/UL (150-450); RED BLOOD COUNT 3.87 M/UL (4.70-6.10); RED CELL DISTRIBUTION WIDTH 18.1 % (11.6-14.8); WHITE BLOOD COUNT 12.2 K/UL (4.8-10.8)
[2020-08-16 08:10] VITALS: BP 143/91
[2020-08-16] MEDS: D5NS 1,000 ML IV SCH (08:35)
[2020-08-16] MEDS: Pantoprazole Inj IV SCH (08:35)
[2020-08-16] MEDS: Heparin 5000 units/ml inj SUBQ SCH ×2 (08:38→21:04)
[2020-08-16 08:47] LABS: ALANINE AMINOTRANSFERASE 21 U/L (12-78); ALBUMIN 1.9 G/DL (3.4-5.0); ALBUMIN/GLOBULIN RATIO 0.4 (1.0-2.7); ALKALINE PHOSPHATASE 170 U/L (46-116); ANION GAP 10 mmol/L (5-15); ASPARTATE AMINO TRANSFERASE 12 U/L (15-37); BILIRUBIN,TOTAL 0.6 MG/DL (0.2-1.0); BLOOD UREA NITROGEN 26 mg/dL (7-18); CALCIUM 8.7 MG/DL (8.5-10.1); CARBON DIOXIDE 26 MMOL/L (21-32); CHLORIDE 111 MMOL/L (98-107); CREATININE 0.9 MG/DL (0.55-1.30); POTASSIUM 3.7 MMOL/L (3.5-5.1); SODIUM 146 MMOL/L (136-145)
[2020-08-16] MEDS ORDERED: Tubing IV Secondary IV ONE (09:22)
--- NOTE | 2020-08-16 09:26 | General Progress Note ---
Subjective ROS Limited/Unobtainable: No Allergies: Coded Allergies: No Known Allergies (Unverified , 04/30/12) Objective Last 24 Hour Vital Signs Date Time Temp Pulse Resp B/P (MAP) Pulse Ox O2 Delivery O2 Flow Rate FiO2 08/16/20 08:10 98.2 90 20 143/91 (108) 97 08/16/20 00:00 98.1 80 18 130/74 (92) 98 08/15/20 21:00 Simple Mask 10.0 08/15/20 20:00 98.4 92 19 133/92 (106) 96 08/15/20 19:18 98 Simple Mask 10.0 60 08/15/20 11:59 97.8 85 22 152/80 (104) 98 Intake and Output 08/15/20 08/16/20 19:00 07:00 Intake Total 390 ml Output Total 400 ml 350 ml Balance -10 ml -350 ml Free Water 150 ml Tube Feeding 240 ml Output Urine Total 400 ml 350 ml Laboratory Tests 08/15/20 11:28: POC Whole Blood Glucose 151H 08/15/20 17:19: POC Whole Blood Glucose 196H 08/15/20 18:00: Urine Color Yellow, Urine Appearance Slightly cloudy, Urine pH 5, Urine Specific [place] 1.025, Urine Protein 3+H, Urine Glucose (UA) 3+H, Urine Ketones Negative, Urine Blood 2+H, Urine Nitrite Negative, Urine Bilirubin Negative, Urine Urobilinogen 1H, Urine Leukocyte Esterase Negative, Urine RBC 5-10H, Urine WBC 2-4, Urine Squamous Epithelial Cells None, Urine Bacteria Few 08/16/20 07:15: White Blood Count 12.2H, Red Blood Count 3.87L, Hemoglobin 12.0L, Hematocrit 35.1L, Mean Corpuscular Volume 91, Mean Corpuscular Hemoglobin 30.9, Mean Corpuscular Hemoglobin Concent 34.1, Red Cell Distribution Width 18.1H, Platelet Count 344, Mean Platelet Volume 7.7, Neutrophils (%) (Auto) , Lymphocytes (%) (Auto) , Monocytes (%) (Auto) , Eosinophils (%) (Auto) , Basophils (%) (Auto) , Neutrophils % (Manual) [Pending], Lymphocytes % (Manual) [Pending], Platelet Estimate [Pending], Platelet Morphology [Pending], Sodium Level 146H, Potassium Level 3.7, Chloride Level 111H, Carbon Dioxide Level 26, Anion Gap 10, Blood Urea Nitrogen 26H, Creatinine 0.9, Estimat Glomerular Filtration Rate > 60, Glucose Level 150H, Calcium Level 8.7, Phosphorus Level 2.0L, Magnesium Level 1.9, Total Bilirubin 0.6, Aspartate Amino Transf (AST/SGOT) 12L, Alanine Aminotransferase (ALT/SGPT) 21, Alkaline Phosphatase 170H, C-Reactive Protein, Quantitative 22.5H, Total Protein 6.9, Albumin 1.9L, Globulin 5.0, Albumin/Globulin Ratio 0.4L Height (Feet): 5 Height (Inches): 4.00 Weight (Pounds): 130 General Appearance: no apparent distress EENT: PERRL/EOMI Cardiovascular: normal rate Abdomen: normal bowel sounds, non tender, soft Extremities: non-tender Assessment/Plan Problem List: (1) HTN (hypertension) ICD Codes: I10 - Essential (primary) hypertension SNOMED: 74399684 (2) BPH (benign prostatic hyperplasia) ICD Codes: N40.0 - Benign prostatic hyperplasia without lower urinary tract symptoms SNOMED: 428746592, 498608390 (3) History of CVA (cerebrovascular accident) ICD Codes: Z86.73 - Personal history of transient ischemic attack (TIA), and cerebral infarction without residual deficits; J12.89 - Other viral pneumonia SNOMED: 473440247, 279472458 (4) Multifocal pneumonia ICD Codes: J18.9 - Pneumonia, unspecified organism; J12.89 - Other viral pneumonia SNOMED: 695170081, 491789707 (5) Aphasia ICD Codes: R47.01 - Aphasia; J12.89 - Other viral pneumonia SNOMED: 78975018, 821941507 Assessment/Plan: s/p EGD/PEG GTF will start add reglan IV Change TF to Glucerna 1.5 monitor for residuals GT flush will fu Jcarlos Brooks MD Aug 16, 2020 09:26
--- NOTE | 2020-08-16 10:00 | Pulmonology Progress Note ---
Subjective ROS Limited/Unobtainable: No Constitutional: Reports: no symptoms Hematologic: Reports: no symptoms Musculoskeletal: Reports: no symptoms Allergies: Coded Allergies: No Known Allergies (Unverified , 04/30/12) Subjective leukocytosis this am started 08/15 on abx given low grade fevers and increased resp requirement on 10 L o2 via simple mask transferred to MS floor this am leucocytosis Objective Last 24 Hour Vital Signs Date Time Temp Pulse Resp B/P (MAP) Pulse Ox O2 Delivery O2 Flow Rate FiO2 08/16/20 09:00 Simple Mask 10.0 08/16/20 08:10 98.2 90 20 143/91 (108) 97 08/16/20 00:00 98.1 80 18 130/74 (92) 98 08/15/20 21:00 Simple Mask 10.0 08/15/20 20:00 98.4 92 19 133/92 (106) 96 08/15/20 19:18 98 Simple Mask 10.0 60 08/15/20 11:59 97.8 85 22 152/80 (104) 98 Intake and Output 08/15/20 08/16/20 19:00 07:00 Intake Total 390 ml Output Total 400 ml 350 ml Balance -10 ml -350 ml Free Water 150 ml Tube Feeding 240 ml Output Urine Total 400 ml 350 ml Objective General Appearance: no apparent distress, on simple mask 10 L O2 /min Lines, tubes and drains: R PICC intact HEENT: normocephalic, atraumatic, anicteric, Respiratory/Chest: BS overall clear, few isolated rhonchi Cardiovascular/Chest: normal peripheral pulses, SR on tele Abdomen: normal bowel sounds, non tender, soft : Wiley Extremities: no calf tenderness, normal capillary refill Neurologic: abnormal gait /bedridden Musculoskeletal: atrophy - BLE Accucheck: 145 Laboratory Tests 08/15/20 11:28: POC Whole Blood Glucose 151H 08/15/20 17:19: POC Whole Blood Glucose 196H 08/15/20 18:00: Urine Color Yellow, Urine Appearance Slightly cloudy, Urine pH 5, Urine Specific [place] 1.025, Urine Protein 3+H, Urine Glucose (UA) 3+H, Urine Ketones Negative, Urine Blood 2+H, Urine Nitrite Negative, Urine Bilirubin Negative, Urine Urobilinogen 1H, Urine Leukocyte Esterase Negative, Urine RBC 5-10H, Urine WBC 2-4, Urine Squamous Epithelial Cells None, Urine Bacteria Few 08/16/20 07:15: White Blood Count 12.2H, Red Blood Count 3.87L, Hemoglobin 12.0L, Hematocrit 35.1L, Mean Corpuscular Volume 91, Mean Corpuscular Hemoglobin 30.9, Mean Corpuscular Hemoglobin Concent 34.1, Red Cell Distribution Width 18.1H, Platelet Count 344, Mean Platelet Volume 7.7, Neutrophils (%) (Auto) , Lymphocytes (%) (Auto) , Monocytes (%) (Auto) , Eosinophils (%) (Auto) , Basophils (%) (Auto) , Differential Total Cells Counted 100, Neutrophils % (Manual) 89H, Lymphocytes % (Manual) 5L, Monocytes % (Manual) 6, Eosinophils % (Manual) 0, Basophils % (Manual) 0, Band Neutrophils 0, Platelet Estimate Adequate, Platelet Morphology Normal, Hypochromasia 1+, Anisocytosis 2+, Sodium Level 146H, Potassium Level 3.7, Chloride Level 111H, Carbon Dioxide Level 26, Anion Gap 10, Blood Urea Nitrogen 26H, Creatinine 0.9, Estimat Glomerular Filtration Rate > 60, Glucose Level 150H, Calcium Level 8.7, Phosphorus Level 2.0L, Magnesium Level 1.9, Total Bilirubin 0.6, Aspartate Amino Transf (AST/SGOT) 12L, Alanine Aminotransferase (ALT/SGPT) 21, Alkaline Phosphatase 170H, C-Reactive Protein, Quantitative 22.5H , Total Protein 6.9, Albumin 1.9L, Globulin 5.0, Albumin/Globulin Ratio 0.4L Current Medications Medications (Trade) Dose Ordered Sig/Ankush Route PRN Reason Start Time Stop Time Status Last Admin Dose Admin Acetaminophen (Tylenol) 650 mg Q4H PRN GT Temp >100.5 08/01/20 12:30 08/31/20 12:29 08/14/20 22:01 Albuterol/ Ipratropium (Albuterol/ Ipratropium) 3 ml Q4H PRN HHN Shortness of Breath 08/15/20 11:00 08/20/20 10:59 Dexamethasone (Decadron) 6 mg DAILY ORAL 08/15/20 12:30 08/24/20 09:01 08/16/20 08:35 Dextrose (Dextrose 50%) 50 ml Q30M PRN IV Hypoglycemia 07/03/20 22:45 10/01/20 22:44 Dextrose/Sodium Chloride 1,000 ml @ 50 mls/hr Q20H IV 08/15/20 12:15 08/29/20 20:44 08/16/20 08:35 Heparin Sodium (Porcine) (Heparin 5000 units/ml) 5,000 units EVERY 12 HOURS SUBQ 07/03/20 21:00 08/17/20 20:59 08/16/20 08:38 Insulin Aspart (NovoLOG) EVERY 6 HOURS SUBQ 07/13/20 06:00 10/02/20 06:29 08/15/20 18:03 Meropenem 1 gm/ Sodium Chloride 55 ml @ 110 mls/hr Q8HR IVPB 08/15/20 22:00 08/20/20 21:59 08/16/20 05:32 Metoclopramide HCl (Reglan) 10 mg EVERY 6 HOURS NG 08/16/20 12:00 09/15/20 11:59 Nitroglycerin (Ntg) 0.4 mg Q5M PRN SL Prn Chest Pain 08/01/20 10:15 08/31/20 10:09 Pantoprazole (Protonix) 40 mg DAILY IV 07/18/20 09:00 08/17/20 08:59 08/16/20 08:35 Polyethylene Glycol (Miralax) 17 gm DAILYPRN PRN GT Constipation 08/01/20 10:15 08/31/20 10:14 08/13/20 23:14 Vancomycin HCl 250 ml @ 166.667 mls/hr Q24H IVPB 08/15/20 18:00 08/20/20 17:59 08/15/20 17:21 Vancomycin HCl (Vanco pharmacy to dose) 1 ea DAILY PRN MISC Per rx protocol 08/15/20 15:45 09/14/20 15:44 Assessment/Plan Assessment/Plan ASSESSMENT Acute hypoxemic respiratory failure , requiring intubation ( initially 100% NRM) -s/p extubation Septic shock -resolved Pneumonia , possible aspiration Probable UTI Hx of COVID 19 -> 05/31 Dysphagia MELANIE-resolved Hypernatremia History of CVA Diabetes mellitus History of hypertension Alzheimer dementia PLAN OF CARE MS huong s/p extubation O2 titrate to keep sat above 92% pulm toilet abx restarted by ID 08/15 , given low grade fever and increased resp requirements fup CXR in am and ABG prn off pressors, then was on Midodrine, now off Midodrine as well BP stable ECHO with pEF, r/o for SD cardio on board s/p abx DVT and GI prophylaxis strict aspiration precaution monitor renal parameters, lytes , correct electrolytes as needed ,avoid nephrotoxic BS management with SSI supportive care remains FC case discussed and evaluated by supervising physician Yrai Baugh [employer] CONTROL/[employer]I [employer] WARFARE OFFICER Aug 16, 2020 10:00
--- NOTE | 2020-08-16 11:07 | Nephrology Progress Note ---
Assessment/Plan Problem List: (1) Dehydration (2) MELANIE (acute kidney injury) (3) Renal failure (ARF), acute on chronic (4) Hypoxia (5) Acute encephalopathy (6) Electrolyte imbalance Assessment 79-year-old male is admitted with acute hypoxic respiratory failure most likely secondary to pneumonia and sepsis, UTI. Acute on chronic renal failure Dehydration Electrolyte imbalances, hypernatremia Hypoalbuminemia Diabetes type 2 History of congestive heart failure Hypertension Hyperlipemia Alzheimer's Previous COVID-19 infection in May 2020 Plan August 16: Labs reviewed. Low phosphorus addressed. Continue on simple mask. Remains stable from renal standpoint of view. Continue per consultants. August 15: Status quo. Stable from renal standpoint of view. No labs drawn today. Will check chemistries in a.m. Continue per consultants. August 14: Status quo. Remains stable from renal standpoint of view. Continue on nasal cannula post extubation. Will check lab tomorrow. August 13: Remains on nasal cannula. Labs reviewed. Stable from renal standpoint of view. August 12: Continue to do well post extubation. Labs reviewed. Renal parameters stable. Continue per consultants. August 11: Remain extubated on nasal cannula. Labs reviewed. Renal parameters stable. August 10: Discussed with RN. Patient now extubated. On nasal cannula. Renal parameters stable. Continue per consultants. August 09: Discussed with FLROES Holliday. Weaning in process. It seems like patient is tolerating better. Labs reviewed. Continue per consultants. August 08: Remains in ICU. Status unchanged. Labs and medication list reviewed. Remains full code. Weaning continues to fail. August 07: Remains in ICU. Remains intubated. Remains full code. Continues to be on weaning trials. Renal parameters are stable. August 06: Patient remains in ICU. Full code. Intubated. Fails weaning. Labs reviewed. Stable from renal standpoint of view. Discussed with RN. August 05: Labs reviewed. Discussed with RN. Abnormal electrolyte addressed. Remains intubated on ventilator. Continue per consultants. August 04: Labs reviewed. Discussed with RN. Stable from renal standpoint of view. Main issue is weaning from ventilator that keeps failing. Continue per consultants. August 03: Labs reviewed. Discussed with RN. Stable from renal standpoint of view. Continue per consultants. August 02: Patient seen and discussed with RN. Labs reviewed. Remains intubated. Trial of weaning this being attempted. Continue per consultants. August 01: Remains intubated. Labs reviewed. Renal parameters stable. Continue per consultants. July 31: Remains on mechanical ventilation. Labs reviewed. Abnormal electrolytes addressed. Stable from renal standpoint of view. July 30: Remains intubated. Remains full code. Labs reviewed. Low phosphorus replaced. Continue to monitor renal parameters. Continue per consultants. July 29: Failed weaning. Remains intubated. Remains full closed. Labs reviewed. Stable from renal standpoint view. July 28: Remains in ICU. Remains full code. Labs are reviewed. Phosphorus supplement given. Continue per consultants. July 27: Remains in ICU. Full code. Labs reviewed. Remains intubated. Stable renal parameters. July 26: In ICU. Full code. Discussed with RN. Stable renal parameters. July 25: Seen in ICU. Discussed with FLORES Holliday. Flomax discontinued. Labs reviewed. Stable from renal standpoint of view. July 24: Seen in ICU. Discussed with FLORES Holliday. Remains on pressor. Electrolyte abnormalities noted and addressed. Continue per consultants. Patient remains full code. July 23: Seen in ICU. Discussed with FLORES Barrera. Blood pressure remains a little requiring pressors. Labs reviewed. Stable renal parameters. Continue per consultants. July 22: Remains intubated. Full code. Blood pressure borderline low. Will increase midodrine dose. Discussed with RN. Continue to monitor renal parameters and electrolytes. July 21: Intubated. Full code. Labs reviewed. Stable from renal standpoint of view. Continue per consultants. July 20: Remains intubated. Full code. Labs reviewed. Electrolytes within normal limit. Continue per consultants. July 19: In ICU. Remains intubated on ventilator. Remains full code. Low p otassium addressed. Blood pressure fluctuating. Continue per consultants. July 18: Patient in ICU. Intubated on ventilator. On 6 mics of Levophed. Will give 100 cc albumin 25%. K-Phos IV ordered. Continue per consultants. Continue monitor renal parameters and electrolytes. July 17: Status unchanged. Transfer to TIFFANIE for seizure. Stable from renal standpoint to view. Continue per consultants. July 16: Status quo. Labs reviewed. Renal parameters stable. Continue per consultants. July 15: On nonrebreather mask. Labs reviewed. Renal parameters stable.Continue per employee benefits administrator. Clinically unchanged. July 14: On nonrebreather mask. Inflammatory markers gradually declining. Renal parameters stable. Continue per pulmonary. July 13: Remains on nonrebreather mask. Inflammatory markers remain elevated. Renal parameters somewhat stable. Continue per pulmonary and ID. Remains full code. July 12: Patient on nonrebreather mask. Labs noted. Serum creatinine down to 1.3. Continue per consultants. July 11: Patient on nonrebreather mask. Transfer to telemetry when seen this morning. Labs noted. Continue per consultants. Serum creatinine erin to 1.7. Continue to monitor renal parameters. Continue to monitor vancomycin level July 10: Patient is not doing well clinically. Mild respiratory distress. ABG noted. Somewhat hypoxic. CBC and chemistry panel ordered. Discussed with FLORES Cho. Will defer to pulmonary management to specialist. Continue per ID. Renal parameters remained stable as of July 09. July 09: Labs reviewed. Renal parameters stable. Continue per consultants. July 08: Labs reviewed. Potassium via NG tube ordered. IV fluids stopped. Continue per consultants. July 07: Labs reviewed. Low potassium and low phosphorus replaced. Continue per consultants. Remains stable from renal standpoint of view. July 06: Patient remains n.p.o. IV fluid down to 50 cc an hour. Potassium supplement intravenously ordered. Continue per consultants. Previously: Patient is n.p.o., will continue on IV fluid of D5W 75 cc an hour We will monitor electrolytes and renal parameters Avoid nephrotoxic's Start p.o. when he clears by speech therapist, meanwhile aspiration precautions Keep the blood pressure and blood sugar in check Per orders Subjective ROS Limited/Unobtainable: No Constitutional: Reports: malaise, weakness Objective Objective Last 24 Hour Vital Signs Date Time Temp Pulse Resp B/P (MAP) Pulse Ox O2 Delivery O2 Flow Rate FiO2 08/16/20 09:00 Simple Mask 10.0 08/16/20 08:10 98.2 90 20 143/91 (108) 97 08/16/20 00:00 98.1 80 18 130/74 (92) 98 08/15/20 21:00 Simple Mask 10.0 08/15/20 20:00 98.4 92 19 133/92 (106) 96 08/15/20 19:18 98 Simple Mask 10.0 60 08/15/20 11:59 97.8 85 22 152/80 (104) 98 Intake and Output 08/15/20 08/16/20 19:00 07:00 Intake Total 390 ml Output Total 400 ml 350 ml Balance -10 ml -350 ml Free Water 150 ml Tube Feeding 240 ml Output Urine Total 400 ml 350 ml Current Medications Medications (Trade) Dose Ordered Sig/Ankush Route PRN Reason Start Time Stop Time Status Last Admin Dose Admin Acetaminophen (Tylenol) 650 mg Q4H PRN GT Temp >100.5 08/01/20 12:30 08/31/20 12:29 08/14/20 22:01 Albuterol/ Ipratropium (Albuterol/ Ipratropium) 3 ml Q4H PRN HHN Shortness of Breath 08/15/20 11:00 08/20/20 10:59 Dexamethasone (Decadron) 6 mg DAILY ORAL 08/15/20 12:30 08/24/20 09:01 08/16/20 08:35 Dextrose (Dextrose 50%) 50 ml Q30M PRN IV Hypoglycemia 07/03/20 22:45 10/01/20 22:44 Dextrose/Sodium Chloride 1,000 ml @ 50 mls/hr Q20H IV 08/15/20 12:15 08/29/20 20:44 08/16/20 08:35 Heparin Sodium (Porcine) (Heparin 5000 units/ml) 5,000 units EVERY 12 HOURS SUBQ 07/03/20 21:00 08/17/20 20:59 08/16/20 08:38 Insulin Aspart (NovoLOG) EVERY 6 HOURS SUBQ 07/13/20 06:00 10/02/20 06:29 08/15/20 18:03 Meropenem 1 gm/ Sodium Chloride 55 ml @ 110 mls/hr Q8HR IVPB 08/15/20 22:00 08/20/20 21:59 08/16/20 05:32 Metoclopramide HCl (Reglan) 10 mg EVERY 6 HOURS NG 08/16/20 12:00 09/15/20 11:59 Nitroglycerin (Ntg) 0.4 mg Q5M PRN SL Prn Chest Pain 08/01/20 10:15 08/31/20 10:09 Pantoprazole (Protonix) 40 mg DAILY IV 07/18/20 09:00 08/17/20 08:59 08/16/20 08:35 Polyethylene Glycol (Miralax) 17 gm DAILYPRN PRN GT Constipation 08/01/20 10:15 08/31/20 10:14 08/13/20 23:14 Vancomycin HCl 250 ml @ 166.667 mls/hr Q24H IVPB 08/15/20 18:00 08/20/20 17:59 08/15/20 17:21 Vancomycin HCl (Vanco pharmacy to dose) 1 ea DAILY PRN MISC Per rx protocol 08/15/20 15:45 09/14/20 15:44 Laboratory Tests 08/15/20 11:28: POC Whole Blood Glucose 151H 08/15/20 17:19: POC Whole Blood Glucose 196H 08/15/20 18:00: Urine Color Yellow, Urine Appearance Slightly cloudy, Urine pH 5, Urine Specific [place] 1.025, Urine Protein 3+H, Urine Glucose (UA) 3+H, Urine Ketones Negative, Urine Blood 2+H, Urine Nitrite Negative, Urine Bilirubin Negative, Urine Urobilinogen 1H, Urine Leukocyte Esterase Negative, Urine RBC 5-10H, Urine WBC 2-4, Urine Squamous Epithelial Cells None, Urine Bacteria Few 08/16/20 07:15: White Blood Count 12.2H, Red Blood Count 3.87L, Hemoglobin 12.0L, Hematocrit 35.1L, Mean Corpuscular Volume 91, Mean Corpuscular Hemoglobin 30.9, Mean Corpuscular Hemoglobin Concent 34.1, Red Cell Distribution Width 18.1H, Platelet Count 344, Mean Platelet Volume 7.7, Neutrophils (%) (Auto) , Lymphocytes (%) (Auto) , Monocytes (%) (Auto) , Eosinophils (%) (Auto) , Basophils (%) (Auto) , Differential Total Cells Counted 100, Neutrophils % (Manual) 89H, Lymphocytes % (Manual) 5L, Monocytes % (Manual) 6, Eosinophils % (Manual) 0, Basophils % (Manual) 0, Band Neutrophils 0, Platelet Estimate Adequate, Platelet Morphology Normal, Hypochromasia 1+, Anisocytosis 2+, Sodium Level 146H, Potassium Level 3.7, Chloride Level 111H, Carbon Dioxide Level 26, Anion Gap 10, Blood Urea Nitrogen 26H, Creatinine 0.9, Estimat Glomerular Filtration Rate > 60, Glucose Level 150H, Calcium Level 8.7, Phosphorus Level 2.0L, Magnesium Level 1.9, Total Bilirubin 0.6, Aspartate Amino Transf (AST/SGOT) 12L, Alanine Aminotransferase (ALT/SGPT) 21, Alkaline Phosphatase 170H, C-Reactive Protein, Quantitative 22.5H , Total Protein 6.9, Albumin 1.9L, Globulin 5.0, Albumin/Globulin Ratio 0.4L Height (Feet): 5 Height (Inches): 4.00 Weight (Pounds): 130 General Appearance: no apparent distress, lethargic EENT: other - On simple mask Cardiovascular: tachycardia Respiratory/Chest: decreased breath sounds Abdomen: distended Tino Connors MD Aug 16, 2020 11:07
--- NOTE | 2020-08-16 12:35 | Internal Med Progress Note ---
Subjective Date of Service: Aug 16, 2020 Physician Name Dano Groves Attending Physician Ahsan Hodges MD Current Medications Medications (Trade) Dose Ordered Sig/Ankush Route PRN Reason Start Time Stop Time Status Last Admin Dose Admin Acetaminophen (Tylenol) 650 mg Q4H PRN GT Temp >100.5 08/01/20 12:30 08/31/20 12:29 08/14/20 22:01 Albuterol/ Ipratropium (Albuterol/ Ipratropium) 3 ml Q4H PRN HHN Shortness of Breath 08/15/20 11:00 08/20/20 10:59 Dexamethasone (Decadron) 6 mg DAILY ORAL 08/15/20 12:30 08/24/20 09:01 08/16/20 08:35 Dextrose (Dextrose 50%) 50 ml Q30M PRN IV Hypoglycemia 07/03/20 22:45 10/01/20 22:44 Dextrose/Sodium Chloride 1,000 ml @ 50 mls/hr Q20H IV 08/15/20 12:15 08/29/20 20:44 08/16/20 08:35 Heparin Sodium (Porcine) (Heparin 5000 units/ml) 5,000 units EVERY 12 HOURS SUBQ 07/03/20 21:00 08/17/20 20:59 08/16/20 08:38 Insulin Aspart (NovoLOG) EVERY 6 HOURS SUBQ 07/13/20 06:00 10/02/20 06:29 08/16/20 11:35 Meropenem 1 gm/ Sodium Chloride 55 ml @ 110 mls/hr Q8HR IVPB 08/15/20 22:00 08/20/20 21:59 08/16/20 05:32 Metoclopramide HCl (Reglan) 10 mg EVERY 6 HOURS NG 08/16/20 12:00 09/15/20 11:59 08/16/20 11:34 Nitroglycerin (Ntg) 0.4 mg Q5M PRN SL Prn Chest Pain 08/01/20 10:15 08/31/20 10:09 Pantoprazole (Protonix) 40 mg DAILY IV 07/18/20 09:00 08/17/20 08:59 08/16/20 08:35 Polyethylene Glycol (Miralax) 17 gm DAILYPRN PRN GT Constipation 08/01/20 10:15 08/31/20 10:14 08/13/20 23:14 Potassium Phosphate 20 mm/ Sodium Chloride 281.6667 ml @ 46.944 m... ONCE ONCE IV 08/16/20 13:00 08/16/20 18:59 Vancomycin HCl 250 ml @ 166.667 mls/hr Q24H IVPB 08/15/20 18:00 08/20/20 17:59 08/15/20 17:21 Vancomycin HCl (Vanco pharmacy to dose) 1 ea DAILY PRN MISC Per rx protocol 08/15/20 15:45 09/14/20 15:44 Allergies: Coded Allergies: No Known Allergies (Unverified , 04/30/12) ROS Limited/Unobtainable: Yes Subjective 79 YO M admitted with shortness of breath. Now pneumonia; previously COVID p ositive. Cover for Int med-Dr Hodges. extubated 08/09/20. S/P PEG 08/13/20 Objective Last Vital Signs Date Time Temp Pulse Resp B/P (MAP) Pulse Ox O2 Delivery O2 Flow Rate FiO2 08/16/20 09:00 Simple Mask 10.0 08/16/20 08:10 98.2 90 20 143/91 (108) 97 08/15/20 19:18 60 Laboratory Tests Test 08/15/20 17:19 08/15/20 18:00 08/16/20 07:15 08/16/20 11:28 POC Whole Blood Glucose 196 MG/DL (74-106) H 157 MG/DL (74-106) H Urine Color Yellow Urine Appearance Slightly cloudy Urine pH 5 (4.5-8.0) Urine Specific [place] 1.025 (1.005-1.035) Urine Protein 3+ (NEGATIVE) H Urine Glucose (UA) 3+ (NEGATIVE) H Urine Ketones Negative (NEGATIVE) Urine Blood 2+ (NEGATIVE) H Urine Nitrite Negative (NEGATIVE) Urine Bilirubin Negative (NEGATIVE) Urine Urobilinogen 1 MG/DL (0.0-1.0) H Urine Leukocyte Esterase Negative (NEGATIVE) Urine RBC 5-10 /HPF (0 - 0) H Urine WBC 2-4 /HPF (0 - 0) Urine Squamous Epithelial Cells None /LPF (NONE/OCC) Urine Bacteria Few /HPF (NONE) White Blood Count 12.2 K/UL (4.8-10.8) H Red Blood Count 3.87 M/UL (4.70-6.10) L Hemoglobin 12.0 G/DL (14.2-18.0) L Hematocrit 35.1 % (42.0-52.0) L Mean Corpuscular Volume 91 FL (80-99) Mean Corpuscular Hemoglobin 30.9 PG (27.0-31.0) Mean Corpuscular Hemoglobin Concent 34.1 G/DL (32.0-36.0) Red Cell Distribution Width 18.1 % (11.6-14.8) H Platelet Count 344 K/UL (150-450) Mean Platelet Volume 7.7 FL (6.5-10.1) Neutrophils (%) (Auto) % (45.0-75.0) Lymphocytes (%) (Auto) % (20.0-45.0) Monocytes (%) (Auto) % (1.0-10.0) Eosinophils (%) (Auto) % (0.0-3.0) Basophils (%) (Auto) % (0.0-2.0) Differential Total Cells Counted 100 Neutrophils % (Manual) 89 % (45-75) H Lymphocytes % (Manual) 5 % (20-45) L Monocytes % (Manual) 6 % (1-10) Eosinophils % (Manual) 0 % (0-3) Basophils % (Manual) 0 % (0-2) Band Neutrophils 0 % (0-8) Platelet Estimate Adequate Platelet Morphology Normal Hypochromasia 1+ Anisocytosis 2+ Sodium Level 146 MMOL/L (136-145) H Potassium Level 3.7 MMOL/L (3.5-5.1) Chloride Level 111 MMOL/L (98-107) H Carbon Dioxide Level 26 MMOL/L (21-32) Anion Gap 10 mmol/L (5-15) Blood Urea Nitrogen 26 mg/dL (7-18) H Creatinine 0.9 MG/DL (0.55-1.30) Estimat Glomerular Filtration Rate > 60 mL/min (>60) Glucose Level 150 MG/DL (74-106) H Calcium Level 8.7 MG/DL (8.5-10.1) Phosphorus Level 2.0 MG/DL (2.5-4.9) L Magnesium Level 1.9 MG/DL (1.8-2.4) Total Bilirubin 0.6 MG/DL (0.2-1.0) Aspartate Amino Transf (AST/SGOT) 12 U/L (15-37) L Alanine Aminotransferase (ALT/SGPT) 21 U/L (12-78) Alkaline Phosphatase 170 U/L (46-116) H C-Reactive Protein, Quantitative 22.5 mg/dL (0.00-0.90) H Total Protein 6.9 G/DL (6.4-8.2) Albumin 1.9 G/DL (3.4-5.0) L Globulin 5.0 g/dL Albumin/Globulin Ratio 0.4 (1.0-2.7) L Intake and Output 08/15/20 08/16/20 19:00 07:00 Intake Total 390 ml Output Total 400 ml 350 ml Balance -10 ml -350 ml Free Water 150 ml Tube Feeding 240 ml Output Urine Total 400 ml 350 ml Objective PHYSICAL EXAMINATION: GENERAL: The patient awake with deep stimuli, open his eyes, however, cannot follow commands. The patient is on a Ventimask at this time, chronically ill-appearing. HEAD AND NECK: Pupils are equal and reactive to light. Anicteric. NECK: Supple. No JVD. LUNGS: Nasal cannula; wheezing, rhonchi, and decreased air in bases. HEART: S1, S2. Regular rhythm. Distant heart sounds. No murmur or gallop. ABDOMEN: Soft, nondistended, nontender. Positive bowel sounds. EXTREMITIES: No cyanosis, clubbing, or edema. NEUROLOGIC: Very limited secondary to the patient's status, cannot follow commands. Opens his eyes with deep stimuli and moving extremities spontaneously. Assessment/Plan Assessment/Plan ASSESSMENT: 1. Acute hypoxemic respiratory failure, most likely secondary to pneumonia and sepsis. 2. Sepsis secondary to urinary tract infection and pneumonia. 3. pneumonia=MRSA; ESBL E. coli 4. Acute kidney injury on chronic renal insufficiency. 5. Dehydration. 6. History of chronic congestive heart failure. 7. Diabetes type 2. 8. Dyslipidemia. 9. Hypertension. 10. Alzheimer's disease. 11. COVID 19 previous positive 12. Dysphagia PLAN: 1. ICU 2. Dr. Carreno,=Pulmonary Critical Care 3. Dr. Cho = Inf Dis. 4. IV= D5W due to the hypernatremia and dehydration. 5. antibiotics = meropenem; S/P micafungin and zyvox 6. Code status is full code. 7. DVT prophylaxis is heparin subcutaneous. 8. S/P PEG 08/13/20; GI=Dano Hughes MD Aug 16, 2020 12:35
[2020-08-16] MEDS ORDERED: Potassium Phosphate 20 MM in NS 275 ML IV ONE (13:00)
[2020-08-16 16:00] VITALS: BP 143/90
[2020-08-16] MEDS: Vancomycin 1.25gm Premix q24h IVPB SCH (17:09)
--- NOTE | 2020-08-16 19:19 | NUR ---
NURSE HAND-OFF: Important Events on Shift:[IV fluids, monitoring labs and VS, monitoring for nausea and vomiting] Patient Status: [stable] Diet: [Glucerna 1.5 at 50 cc/hr] Pending Orders: [] Pending Results/Labs:[] Pending MD notification:[] Latest Vital Signs: Temperature 98.7 , Pulse 90 , B/P 143 /90 , Respiratory Rate 20 , O2 SAT 99 , Simple Mask, O2 Flow Rate 10.0 . Vital Sign Comment: [] Latest Gonzalez Fall Score: 45 Fall Risk: High Risk Safety Measures: Call light Within Reach, Bed Alarm Zone 1, Side Rails Side Rails x3, Bed position Low and Locked. Fall Precautions: Yellow Socks Yellow Gown Door Sign Patient Fall Education Report given to [FLORES Ordonez].
[2020-08-16 20:00] VITALS: BP 129/67
--- NOTE | 2020-08-16 20:44 | Cardiac Electrophysiology PN ---
Assessment/Plan Assessment/Plan 1. Sinus tachycardia likely due to aspiration. No atrial fib. Ruled out for [place]. EF 55%. 2. Long run of 31 beats of Nonsustained VT on 07/14/2020. Cardiac cath after stabilization. 3. Aníbal 30, Asystole while on the Vent due to resp failure/ likely mucus plug . S/P Code Off midodrine 4. S/P Respiratory failure, on antibiotic Extubated 08/09/20 5. S/P Septic shock. Off Levophed 6. History of previous COVID infection in May 2020 and July 2020 Now negative again and off isolation. 7. Dementia. 8. Dysphagia, Failed swallow eval S/P PEG 08/13/[address] Cecilia LUCAS RN Subjective Subjective Had 31 beats of VT on 07/14/20 and 5 beats 07/19/20 Coded on 07/23/20 as sat dropped to 20% and got aníbal 30s and PEA and pulseless Transferred out of ICU after extubated 08/09/20 Failed Swallow eval. S/P PEG by Dr Brooks 08/13/20 ECG confirmed sinus tach Objective Last 24 Hour Vital Signs Date Time Temp Pulse Resp B/P (MAP) Pulse Ox O2 Delivery O2 Flow Rate FiO2 08/16/20 20:31 Simple Mask 10.0 08/16/20 16:00 98.7 90 20 143/90 (107) 99 08/16/20 09:00 Simple Mask 10.0 08/16/20 08:10 98.2 90 20 143/91 (108) 97 08/16/20 00:00 98.1 80 18 130/74 (92) 98 08/15/20 21:00 Simple Mask 10.0 Intake and Output 08/15/20 08/16/20 19:00 07:00 Intake Total 390 ml Output Total 400 ml 350 ml Balance -10 ml -350 ml Free Water 150 ml Tube Feeding 240 ml Output Urine Total 400 ml 350 ml Laboratory Tests Test 08/16/20 07:15 08/16/20 11:28 08/16/20 17:09 White Blood Count 12.2 K/UL (4.8-10.8) H Red Blood Count 3.87 M/UL (4.70-6.10) L Hemoglobin 12.0 G/DL (14.2-18.0) L Hematocrit 35.1 % (42.0-52.0) L Mean Corpuscular Volume 91 FL (80-99) Mean Corpuscular Hemoglobin 30.9 PG (27.0-31.0) Mean Corpuscular Hemoglobin Concent 34.1 G/DL (32.0-36.0) Red Cell Distribution Width 18.1 % (11.6-14.8) H Platelet Count 344 K/UL (150-450) Mean Platelet Volume 7.7 FL (6.5-10.1) Neutrophils (%) (Auto) % (45.0-75.0) Lymphocytes (%) (Auto) % (20.0-45.0) Monocytes (%) (Auto) % (1.0-10.0) Eosinophils (%) (Auto) % (0.0-3.0) Basophils (%) (Auto) % (0.0-2.0) Differential Total Cells Counted 100 Neutrophils % (Manual) 89 % (45-75) H Lymphocytes % (Manual) 5 % (20-45) L Monocytes % (Manual) 6 % (1-10) Eosinophils % (Manual) 0 % (0-3) Basophils % (Manual) 0 % (0-2) Band Neutrophils 0 % (0-8) Platelet Estimate Adequate Platelet Morphology Normal Hypochromasia 1+ Anisocytosis 2+ Sodium Level 146 MMOL/L (136-145) H Potassium Level 3.7 MMOL/L (3.5-5.1) Chloride Level 111 MMOL/L (98-107) H Carbon Dioxide Level 26 MMOL/L (21-32) Anion Gap 10 mmol/L (5-15) Blood Urea Nitrogen 26 mg/dL (7-18) H Creatinine 0.9 MG/DL (0.55-1.30) Estimat Glomerular Filtration Rate > 60 mL/min (>60) Glucose Level 150 MG/DL (74-106) H Calcium Level 8.7 MG/DL (8.5-10.1) Phosphorus Level 2.0 MG/DL (2.5-4.9) L Magnesium Level 1.9 MG/DL (1.8-2.4) Total Bilirubin 0.6 MG/DL (0.2-1.0) Aspartate Amino Transf (AST/SGOT) 12 U/L (15-37) L Alanine Aminotransferase (ALT/SGPT) 21 U/L (12-78) Alkaline Phosphatase 170 U/L (46-116) H C-Reactive Protein, Quantitative 22.5 mg/dL (0.00-0.90) H Total Protein 6.9 G/DL (6.4-8.2) Albumin 1.9 G/DL (3.4-5.0) L Globulin 5.0 g/dL Albumin/Globulin Ratio 0.4 (1.0-2.7) L POC Whole Blood Glucose 157 MG/DL (74-106) H 150 MG/DL (74-106) H Objective HEAD AND NECK: No JVD. LUNGS: Coarse rhonchi. CARDIOVASCULAR: Tachy S1 and S2 with no gallop. ABDOMEN: Soft.PEG in place EXTREMITIES: No pitting edema. Klever Matt MD Aug 16, 2020 20:44
[2020-08-17 00:05] VITALS: BP 127/79
[2020-08-17 03:58] VITALS: BP 153/73
[2020-08-17] MEDS: D5NS 1,000 ML IV SCH (04:15)
[2020-08-17] MEDS: Metoclopramide 10mg/10ml Liq NG SCH (05:29)
[2020-08-17] MEDS: Meropenem 1 GM in NS 55 ML IVPB SCH (05:29)
[2020-08-17] MEDS: NovoLOG Insulin Flexpen SUBQ SCH (05:29)
--- NOTE | 2020-08-17 07:22 | NUR ---
HAND-OFF: Report given to Bruce Cuadra RN.
--- NOTE | 2020-08-17 07:27 | NUR ---
NURSE NOTES: Handoff received from Mery TANNER. Patient is awake and alert, no acute signs of distress noted. Patient is on 10 L O2 simple mask. Right hand IV is intact and running IVF as ordered. Wiley catheter is patent and draining to gravity. Patient is on pressure relieving mattress. Bed is low and locked, siderails up x2, call light is within reach.
[2020-08-17 08:00] VITALS: BP 152/60
--- NOTE | 2020-08-17 08:45 | General Progress Note ---
Subjective ROS Limited/Unobtainable: No Allergies: Coded Allergies: No Known Allergies (Unverified , 04/30/12) Objective Last 24 Hour Vital Signs Date Time Temp Pulse Resp B/P (MAP) Pulse Ox O2 Delivery O2 Flow Rate FiO2 08/17/20 03:58 98.4 76 20 153/73 (99) 94 08/17/20 00:05 97.6 82 20 127/79 (95) 95 08/16/20 20:31 Simple Mask 10.0 08/16/20 20:00 97.9 85 22 129/67 (87) 95 08/16/20 16:00 98.7 90 20 143/90 (107) 99 08/16/20 09:00 Simple Mask 10.0 Intake and Output 08/16/20 08/17/20 19:00 07:00 Intake Total 300 ml 1460 ml Output Total 300 ml 400 ml Balance 0 ml 1060 ml Free Water 200 ml IV Total 250 ml 660 ml Tube Feeding 50 ml 600 ml Output Urine Total 300 ml 400 ml # Voids 1 Laboratory Tests 08/16/20 11:28: POC Whole Blood Glucose 157H 08/16/20 17:09: POC Whole Blood Glucose 150H 08/16/20 23:11: POC Whole Blood Glucose 163H 08/17/20 04:44: POC Whole Blood Glucose 118H Height (Feet): 5 Height (Inches): 4.00 Weight (Pounds): 130 General Appearance: no apparent distress EENT: normal ENT inspection Neck: supple Cardiovascular: normal rate Respiratory/Chest: decreased breath sounds Abdomen: normal bowel sounds, non tender, soft Extremities: non-tender Assessment/Plan Problem List: (1) HTN (hypertension) ICD Codes: I10 - Essential (primary) hypertension SNOMED: 18993113 (2) BPH (benign prostatic hyperplasia) ICD Codes: N40.0 - Benign prostatic hyperplasia without lower urinary tract symptoms SNOMED: 021599669, 906917683 (3) History of CVA (cerebrovascular accident) ICD Codes: Z86.73 - Personal history of transient ischemic attack (TIA), and cerebral infarction without residual deficits; J12.89 - Other viral pneumonia SNOMED: 449567619, 429944621 (4) Multifocal pneumonia ICD Codes: J18.9 - Pneumonia, unspecified organism; J12.89 - Other viral pneumonia SNOMED: 216763475, 508753513 (5) Aphasia ICD Codes: R47.01 - Aphasia; J12.89 - Other viral pneumonia SNOMED: 99580736, 428871888 Assessment/Plan: s/p EGD/PEG GTF t reglan IV monitor for residuals GT flush will fu Jcarlos Brooks MD Aug 17, 2020 08:45
[2020-08-17] MEDS: Heparin 5000 units/ml inj SUBQ SCH (08:52)
--- NOTE | 2020-08-17 09:33 | Infectious Diseases Prog Note ---
Assessment/Plan 79yo M with: Respiratory code 2ry to mucus plug 07/23 Septic Shock- -recurrent Fever, recurrent, low grade Leukocytosis; recurrent; increased Acute hypoxic resp failure, on NRB mask> 4l NC; back on NRB, desaturation 07/09 > intubated 07/17 Pneumonia- >HAP Hx of COVID-19 PNA 05/20/2007/28 CXR: No significant interval change in the radiographic appearance the chest compared to one day prior. 07/25 Resp cx +MRSA, nl resp bobby UCx neg BCx NTD 07/24 COVID PCR neg --07/21 CXR: Bilateral infiltrates in a peribronchovascular distribution are unchanged. Left pleural effusion is unchanged. --07/19 CXR: Persistent bilateral patchy pulmonary opacities, most prominent in the left lower lung. --07/18 ucx neg sp cx MRSA (colonizer at this point) Bcx Neg --07/13 Bcx Neg 07/10 Sp cx MRSA (Vancomycin APOLONIA 1), ESBL E.coli 07/03 BCx NTD UA 15- WBC, UCx Neg 07/03 COVID rapid neg; 07/06 rapid COVID PCR + (from prior infection)- not new infection Flu A/B neg CXR: L pna Resp cx MRSA 07/30 Resp cx +ESBL E.coli & PsA 08/01 BCx NTD 08/02 CXR: Small bilateral pleural effusions with moderate vascular congestion. Airspace consolidation in the left lower lung field may represent atelectasis however, correlate for infiltrate. This is improving when compared to the prior study. 08/03 BCx NTD 08/03 CXR: Increasing right basilar opacity, likely infiltrate, may also reflect increasing pleural fluid 08/14 CXR: Stable or slightly worse infiltrates bilaterally Interim extubation 08/15 BCx neg, UA neg 08/15 Resp cx p H/o COVID pna Tested positive 05/20/2007/03 Rapid Ag neg 07/06 Rapid Ag positive (from prior disease?) 07/24 COVID PCR neg MELANIE on CKD, improving SNF resident ([facility]) Non-verbal VRE and MRSA colonized Plan: Cont empiric IV Vancomycin and Meropenem #3 given increasing respiratory requ irements and low grade fever, tentative course of 5-7 days then stop On dexamethasone per Pulm/Primary, may be contributing to leukocytosis F/u resp cx 08/15 -08/10 SP jen # SP linezolid # -07/27 SP meropenem #14 for ESBL pna -07/21 SP Micafungin # -07/17 SP IV Vancomycin #15 -07/13 SP Zosyn # SP Cefepime # SP Flagyl # Monitor CBC/CMP Monitor resp status Monitor temp curve and hemodynamics D/w RN Thank you for this consult. [facility] will continue to follow. Subjective Allergies: Coded Allergies: No Known Allergies (Unverified , 04/30/12) AF Labs pending NAD Being discharged to SNF right now Objective Last 24 Hour Vital Signs Date Time Temp Pulse Resp B/P (MAP) Pulse Ox O2 Delivery O2 Flow Rate FiO2 08/17/20 03:58 98.4 76 20 153/73 (99) 94 08/17/20 00:05 97.6 82 20 127/79 (95) 95 08/16/20 20:31 Simple Mask 10.0 08/16/20 20:00 97.9 85 22 129/67 (87) 95 08/16/20 16:00 98.7 90 20 143/90 (107) 99 Height (Feet): 5 Height (Inches): 4.00 Weight (Pounds): 130 Gen: NAD in bed HEENT: NCAT CV: RRR Pulm: CTAB Abd: Soft, NTND Ext: No c/c/e Neuro: Awake, not interactive Lines: RUE PICC Microbiology Date/Time Source Procedure Growth Status 08/16/20 06:10 Sputum Gram Stain - Final Resulted 08/16/20 06:10 Sputum Sputum Culture Pending Resulted 08/15/20 17:30 Blood Blood Culture - Preliminary NO GROWTH AFTER 24 HOURS Resulted 08/15/20 17:15 Blood Blood Culture - Preliminary NO GROWTH AFTER 24 HOURS Resulted Laboratory Tests Test 08/16/20 11:28 08/16/20 17:09 08/16/20 23:11 08/17/20 04:44 POC Whole Blood Glucose 157 MG/DL (74-106) H 150 MG/DL (74-106) H 163 MG/DL (74-106) H 118 MG/DL (74-106) H Current Medications Medications (Trade) Dose Ordered Sig/Ankush Route PRN Reason Start Time Stop Time Status Last Admin Dose Admin Acetaminophen (Tylenol) 650 mg Q4H PRN GT Temp >100.5 08/01/20 12:30 08/31/20 12:29 08/14/20 22:01 Albuterol/ Ipratropium (Albuterol/ Ipratropium) 3 ml Q4H PRN HHN Shortness of Breath 08/15/20 11:00 08/20/20 10:59 Dexamethasone (Decadron) 6 mg DAILY ORAL 08/15/20 12:30 08/24/20 09:01 08/17/20 08:40 Dextrose (Dextrose 50%) 50 ml Q30M PRN IV Hypoglycemia 07/03/20 22:45 10/01/20 22:44 Dextrose/Sodium Chloride 1,000 ml @ 50 mls/hr Q20H IV 08/15/20 12:15 08/29/20 20:44 08/16/20 08:35 Heparin Sodium (Porcine) (Heparin 5000 units/ml) 5,000 units EVERY 12 HOURS SUBQ 07/03/20 21:00 08/17/20 20:59 08/17/20 08:52 Insulin Aspart (NovoLOG) EVERY 6 HOURS SUBQ 07/13/20 06:00 10/02/20 06:29 08/16/20 23:31 Meropenem 1 gm/ Sodium Chloride 55 ml @ 110 mls/hr Q8HR IVPB 08/15/20 22:00 08/20/20 21:59 08/17/20 05:29 Metoclopramide HCl (Reglan) 10 mg EVERY 6 HOURS NG 08/16/20 12:00 09/15/20 11:59 08/17/20 05:29 Nitroglycerin (Ntg) 0.4 mg Q5M PRN SL Prn Chest Pain 08/01/20 10:15 08/31/20 10:09 Polyethylene Glycol (Miralax) 17 gm DAILYPRN PRN GT Constipation 08/01/20 10:15 08/31/20 10:14 08/13/20 23:14 Vancomycin HCl 250 ml @ 166.667 mls/hr Q24H IVPB 08/15/20 18:00 08/20/20 17:59 08/16/20 17:09 Vancomycin HCl (Vanco pharmacy to dose) 1 ea DAILY PRN MISC Per rx protocol 08/15/20 15:45 09/14/20 15:44 Lorie Ramirez M.D. Aug 17, 2020 09:32
--- NOTE | 2020-08-17 09:53 | Cardiac Electrophysiology PN ---
Assessment/Plan Assessment/Plan 1. Sinus tachycardia likely due to aspiration. No atrial fib. Ruled out for CT. EF 55%. 2. Long run of 31 beats of Nonsustained VT on 07/14/2020. Cardiac cath after stabilization if able to get consent and after Respiratory stabilization. 3. Aníbal 30, Asystole while on the Vent due to resp failure/ likely mucus plug . S/P Code Off midodrine 4. S/P Respiratory failure, on antibiotic Extubated 08/09/20 5. S/P Septic shock. Off Levophed 6. History of previous COVID infection in May 2020 and July 2020 Now negative again and off isolation. 7. Dementia. 8. Dysphagia, Failed swallow eval S/P PEG 08/13/[address] Cecilia LUCAS RN Subjective Subjective Had 31 beats of VT on 07/14/20 and 5 beats 07/19/20 Coded on 07/23/20 as sat dropped to 20% and got aníbal 30s and PEA and pulseless Transferred out of ICU after extubated 08/09/20 Failed Swallow eval. S/P PEG by Dr Brooks 08/13/20 ECG confirmed sinus tach On 10 liter of FM off restraints Objective Last 24 Hour Vital Signs Date Time Temp Pulse Resp B/P (MAP) Pulse Ox O2 Delivery O2 Flow Rate FiO2 08/17/20 03:58 98.4 76 20 153/73 (99) 94 08/17/20 00:05 97.6 82 20 127/79 (95) 95 08/16/20 20:31 Simple Mask 10.0 08/16/20 20:00 97.9 85 22 129/67 (87) 95 08/16/20 16:00 98.7 90 20 143/90 (107) 99 Intake and Output 08/16/20 08/17/20 18:59 06:59 Intake Total 1560 ml Output Total 300 ml 400 ml Balance -300 ml 1160 ml Free Water 100 ml IV Total 860 ml Tube Feeding 600 ml Output Urine Total 300 ml 400 ml # Voids 1 Laboratory Tests Test 08/16/20 11:28 08/16/20 17:09 08/16/20 23:11 08/17/20 04:44 POC Whole Blood Glucose 157 MG/DL (74-106) H 150 MG/DL (74-106) H 163 MG/DL (74-106) H 118 MG/DL (74-106) H Microbiology Date/Time Source Procedure Growth Status 08/16/20 06:10 Sputum Gram Stain - Final Resulted 08/16/20 06:10 Sputum Sputum Culture Pending Resulted 08/15/20 17:30 Blood Blood Culture - Preliminary NO GROWTH AFTER 24 HOURS Resulted 08/15/20 17:15 Blood Blood Culture - Preliminary NO GROWTH AFTER 24 HOURS Resulted Objective HEAD AND NECK: No JVD. LUNGS: Coarse rhonchi. CARDIOVASCULAR: Tachy S1 and S2 with no gallop. ABDOMEN: Soft.PEG in place EXTREMITIES: No pitting edema. Klever Matt MD Aug 17, 2020 09:53
--- NOTE | 2020-08-17 10:22 | Pulmonology Progress Note ---
Subjective ROS Limited/Unobtainable: No Constitutional: Reports: no symptoms Hematologic: Reports: no symptoms Musculoskeletal: Reports: no symptoms Allergies: Coded Allergies: No Known Allergies (Unverified , 04/30/12) Objective Last 24 Hour Vital Signs Date Time Temp Pulse Resp B/P (MAP) Pulse Ox O2 Delivery O2 Flow Rate FiO2 08/17/20 08:00 97.2 76 20 152/60 (90) 94 08/17/20 03:58 98.4 76 20 153/73 (99) 94 08/17/20 00:05 97.6 82 20 127/79 (95) 95 08/16/20 20:31 Simple Mask 10.0 08/16/20 20:00 97.9 85 22 129/67 (87) 95 08/16/20 16:00 98.7 90 20 143/90 (107) 99 Intake and Output 08/16/20 08/17/20 19:00 07:00 Intake Total 300 ml 1460 ml Output Total 300 ml 400 ml Balance 0 ml 1060 ml Free Water 200 ml IV Total 250 ml 660 ml Tube Feeding 50 ml 600 ml Output Urine Total 300 ml 400 ml # Voids 1 General Appearance: WD/WN HEENT: normocephalic, atraumatic Respiratory: chest wall non-tender, lungs clear Cardiovascular: normal peripheral pulses, normal rate Abdomen: normal bowel sounds, soft, non tender Extremities: no clubbing Skin: no lesions 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 Microbiology Date/Time Source Procedure Growth Status 08/16/20 06:10 Sputum Gram Stain - Final Resulted 08/16/20 06:10 Sputum Sputum Culture Pending Resulted 08/15/20 17:30 Blood Blood Culture - Preliminary NO GROWTH AFTER 24 HOURS Resulted 08/15/20 17:15 Blood Blood Culture - Preliminary NO GROWTH AFTER 24 HOURS Resulted Laboratory Tests 08/16/20 11:28: POC Whole Blood Glucose 157H 08/16/20 17:09: POC Whole Blood Glucose 150H 08/16/20 23:11: POC Whole Blood Glucose 163H 08/17/20 04:44: POC Whole Blood Glucose 118H Current Medications Medications (Trade) Dose Ordered Sig/Ankush Route PRN Reason Start Time Stop Time Status Last Admin Dose Admin Acetaminophen (Tylenol) 650 mg Q4H PRN GT Temp >100.5 08/01/20 12:30 08/31/20 12:29 08/14/20 22:01 Albuterol/ Ipratropium (Albuterol/ Ipratropium) 3 ml Q4H PRN HHN Shortness of Breath 08/15/20 11:00 08/20/20 10:59 Dexamethasone (Decadron) 6 mg DAILY ORAL 08/15/20 12:30 08/24/20 09:01 08/17/20 08:40 Dextrose (Dextrose 50%) 50 ml Q30M PRN IV Hypoglycemia 07/03/20 22:45 10/01/20 22:44 Dextrose/Sodium Chloride 1,000 ml @ 50 mls/hr Q20H IV 08/15/20 12:15 08/29/20 20:44 08/16/20 08:35 Heparin Sodium (Porcine) (Heparin 5000 units/ml) 5,000 units EVERY 12 HOURS SUBQ 07/03/20 21:00 08/17/20 20:59 08/17/20 08:52 Insulin Aspart (NovoLOG) EVERY 6 HOURS SUBQ 07/13/20 06:00 10/02/20 06:29 08/16/20 23:31 Meropenem 1 gm/ Sodium Chloride 55 ml @ 110 mls/hr Q8HR IVPB 08/15/20 22:00 08/20/20 21:59 08/17/20 05:29 Metoclopramide HCl (Reglan) 10 mg EVERY 6 HOURS NG 08/16/20 12:00 09/15/20 11:59 08/17/20 05:29 Nitroglycerin (Ntg) 0.4 mg Q5M PRN SL Prn Chest Pain 08/01/20 10:15 08/31/20 10:09 Polyethylene Glycol (Miralax) 17 gm DAILYPRN PRN GT Constipation 08/01/20 10:15 08/31/20 10:14 08/13/20 23:14 Vancomycin HCl 250 ml @ 166.667 mls/hr Q24H IVPB 08/15/20 18:00 08/20/20 17:59 08/16/20 17:09 Vancomycin HCl (Vanco pharmacy to dose) 1 ea DAILY PRN MISC Per rx protocol 08/15/20 15:45 09/14/20 15:44 Assessment/Plan Problems: (1) Acute encephalopathy (2) 2019 novel coronavirus disease (COVID-19) (3) Severe sepsis (4) HTN (hypertension) (5) Aphasia (6) Alzheimer's dementia (7) History of CVA (cerebrovascular accident) (8) BPH (benign prostatic hyperplasia) Assessment/Plan got Gtube done, tolerating well titrate fio2 to sat of 92% frequent suctioning check electrolytes aspiration precaution dvt prophylaxis. dc to correction Kya Carreno MD Aug 17, 2020 10:22
--- NOTE | 2020-08-17 10:25 | Diagnostic Imaging Report ---
Procedure: XRAY Chest 1v Reason for study: Reason For Exam: SOB Comparison films: 08/14/2020. FINDINGS: A single one view chest is obtained. Vascularity is normal. Bilateral infiltrates noted. There may be slightly improved aeration left lung base. Cardiac and mediastinal silhouette are within normal limits. Small effusion unchanged. The bony thorax appear unremarkable. IMPRESSION: Slightly improved aeration left lung base.
--- NOTE | 2020-08-17 10:54 | Nephrology Progress Note ---
Assessment/Plan Problem List: (1) Dehydration (2) MELANIE (acute kidney injury) (3) Renal failure (ARF), acute on chronic (4) Hypoxia (5) Acute encephalopathy (6) Electrolyte imbalance Assessment 79-year-old male is admitted with acute hypoxic respiratory failure most likely secondary to pneumonia and sepsis, UTI. Acute on chronic renal failure Dehydration Electrolyte imbalances, hypernatremia Hypoalbuminemia Diabetes type 2 History of congestive heart failure Hypertension Hyperlipemia Alzheimer's Previous COVID-19 infection in May 2020 Plan August 17: No labs done today. Stable renal parameters overall. Continue per consultants. August 16: Labs reviewed. Low phosphorus addressed. Continue on simple mask. Remains stable from renal standpoint of view. Continue per consultants. August 15: Status quo. Stable from renal standpoint of view. No labs drawn today. Will check chemistries in a.m. Continue per consultants. August 14: Status quo. Remains stable from renal standpoint of view. Continue on nasal cannula post extubation. Will check lab tomorrow. August 13: Remains on nasal cannula. Labs reviewed. Stable from renal standpoint of view. August 12: Continue to do well post extubation. Labs reviewed. Renal parameters stable. Continue per consultants. August 11: Remain extubated on nasal cannula. Labs reviewed. Renal parameters stable. August 10: Discussed with RN. Patient now extubated. On nasal cannula. Renal parameters stable. Continue per consultants. August 09: Discussed with FLORES Holliday. Weaning in process. It seems like patient is tolerating better. Labs reviewed. Continue per consultants. August 08: Remains in ICU. Status unchanged. Labs and medication list reviewed. Remains full code. Weaning continues to fail. August 07: Remains in ICU. Remains intubated. Remains full code. Continues to be on weaning trials. Renal parameters are stable. August 06: Patient remains in ICU. Full code. Intubated. Fails weaning. Labs reviewed. Stable from renal standpoint of view. Discussed with RN. August 05: Labs reviewed. Discussed with RN. Abnormal electrolyte addressed. Remains intubated on ventilator. Continue per consultants. August 04: Labs reviewed. Discussed with RN. Stable from renal standpoint of view. Main issue is weaning from ventilator that keeps failing. Continue per consultants. August 03: Labs reviewed. Discussed with RN. Stable from renal standpoint of view. Continue per consultants. August 02: Patient seen and discussed with RN. Labs reviewed. Remains intubated. Trial of weaning this being attempted. Continue per consultants. August 01: Remains intubated. Labs reviewed. Renal parameters stable. Continue per consultants. July 31: Remains on mechanical ventilation. Labs reviewed. Abnormal electrolytes addressed. Stable from renal standpoint of view. July 30: Remains intubated. Remains full code. Labs reviewed. Low ph osphorus replaced. Continue to monitor renal parameters. Continue per consultants. July 29: Failed weaning. Remains intubated. Remains full closed. Labs reviewed. Stable from renal standpoint view. July 28: Remains in ICU. Remains full code. Labs are reviewed. Phosphorus supplement given. Continue per consultants. July 27: Remains in ICU. Full code. Labs reviewed. Remains intubated. Stable renal parameters. July 26: In ICU. Full code. Discussed with RN. Stable renal parameters. July 25: Seen in ICU. Discussed with FLORES Holliday. Flomax discontinued. Labs reviewed. Stable from renal standpoint of view. July 24: Seen in ICU. Discussed with FLORES Holliday. Remains on pressor. Electrolyte abnormalities noted and addressed. Continue per consultants. Patient remains full code. July 23: Seen in ICU. Discussed with FLORES Barrera. Blood pressure remains a little requiring pressors. Labs reviewed. Stable renal parameters. Continue per consultants. July 22: Remains intubated. Full code. Blood pressure borderline low. Will increase midodrine dose. Discussed with RN. Continue to monitor renal parameters and electrolytes. July 21: Intubated. Full code. Labs reviewed. Stable from renal standpoint of view. Continue per consultants. July 20: Remains intubated. Full code. Labs reviewed. Electrolytes within normal limit. Continue per consultants. July 19: In ICU. Remains intubated on ventilator. Remains full code. Low potassium addressed. Blood pressure fluctuating. Continue per consultants. July 18: Patient in ICU. Intubated on ventilator. On 6 mics of Levophed. Will give 100 cc albumin 25%. K-Phos IV ordered. Continue per consultants. Continue monitor renal parameters and electrolytes. July 17: Status unchanged. Transfer to [facility] for seizure. Stable from renal standpoint to view. Continue per consultants. July 16: Status quo. Labs reviewed. Renal parameters stable. Continue per consultants. July 15: On nonrebreather mask. Labs reviewed. Renal parameters stable.Continue per bundle shaker. Clinically unchanged. July 14: On nonrebreather mask. Inflammatory markers gradually declining. Renal parameters stable. Continue per pulmonary. July 13: Remains on nonrebreather mask. Inflammatory markers remain elevated. Renal parameters somewhat stable. Continue per pulmonary and ID. Remains full code. July 12: Patient on nonrebreather mask. Labs noted. Serum creatinine down to 1.3. Continue per consultants. July 11: Patient on nonrebreather mask. Transfer to telemetry when seen this morning. Labs noted. Continue per consultants. Serum creatinine erin to 1.7. Continue to monitor renal parameters. Continue to monitor vancomycin level July 10: Patient is not doing well clinically. Mild respiratory distress. ABG noted. Somewhat hypoxic. CBC and chemistry panel ordered. Discussed with FLORES Cho. Will defer to pulmonary management to specialist. Continue per ID. Renal parameters remained stable as of July 09. July 09: Labs reviewed. Renal parameters stable. Continue per consultants. July 08: Labs reviewed. Potassium via NG tube ordered. IV fluids stopped. Continue per consultants. July 07: Labs reviewed. Low potassium and low phosphorus replaced. Continue per consultants. Remains stable from renal standpoint of view. July 06: Patient remains n.p.o. IV fluid down to 50 cc an hour. Potassium supplement intravenously ordered. Continue per consultants. Previously: Patient is n.p.o., will continue on IV fluid of D5W 75 cc an hour We will monitor electrolytes and renal parameters Avoid nephrotoxic's Start p.o. when he clears by speech therapist, meanwhile aspiration precautions Keep the blood pressure and blood sugar in check Per orders Subjective ROS Limited/Unobtainable: Yes Objective Objective Last 24 Hour Vital Signs Date Time Temp Pulse Resp B/P (MAP) Pulse Ox O2 Delivery O2 Flow Rate FiO2 08/17/20 08:00 97.2 76 20 152/60 (90) 94 08/17/20 03:58 98.4 76 20 153/73 (99) 94 08/17/20 00:05 97.6 82 20 127/79 (95) 95 08/16/20 20:31 Simple Mask 10.0 08/16/20 20:00 97.9 85 22 129/67 (87) 95 08/16/20 16:00 98.7 90 20 143/90 (107) 99 Intake and Output 08/16/20 08/17/20 19:00 07:00 Intake Total 300 ml 1460 ml Output Total 300 ml 400 ml Balance 0 ml 1060 ml Free Water 200 ml IV Total 250 ml 660 ml Tube Feeding 50 ml 600 ml Output Urine Total 300 ml 400 ml # Voids 1 Current Medications Medications (Trade) Dose Ordered Sig/Ankush Route PRN Reason Start Time Stop Time Status Last Admin Dose Admin Acetaminophen (Tylenol) 650 mg Q4H PRN GT Temp >100.5 08/01/20 12:30 08/31/20 12:29 08/14/20 22:01 Albuterol/ Ipratropium (Albuterol/ Ipratropium) 3 ml Q4H PRN HHN Shortness of Breath 08/15/20 11:00 08/20/20 10:59 Dexamethasone (Decadron) 6 mg DAILY ORAL 08/15/20 12:30 08/24/20 09:01 08/17/20 08:40 Dextrose (Dextrose 50%) 50 ml Q30M PRN IV Hypoglycemia 07/03/20 22:45 10/01/20 22:44 Dextrose/Sodium Chloride 1,000 ml @ 50 mls/hr Q20H IV 08/15/20 12:15 08/29/20 20:44 08/16/20 08:35 Heparin Sodium (Porcine) (Heparin 5000 units/ml) 5,000 units EVERY 12 HOURS SUBQ 07/03/20 21:00 08/17/20 20:59 08/17/20 08:52 Insulin Aspart (NovoLOG) EVERY 6 HOURS SUBQ 07/13/20 06:00 10/02/20 06:29 08/16/20 23:31 Meropenem 1 gm/ Sodium Chloride 55 ml @ 110 mls/hr Q8HR IVPB 08/15/20 22:00 08/20/20 21:59 08/17/20 05:29 Metoclopramide HCl (Reglan) 10 mg EVERY 6 HOURS NG 08/16/20 12:00 09/15/20 11:59 08/17/20 05:29 Nitroglycerin (Ntg) 0.4 mg Q5M PRN SL Prn Chest Pain 08/01/20 10:15 08/31/20 10:09 Polyethylene Glycol (Miralax) 17 gm DAILYPRN PRN GT Constipation 08/01/20 10:15 08/31/20 10:14 08/13/20 23:14 Vancomycin HCl 250 ml @ 166.667 mls/hr Q24H IVPB 08/15/20 18:00 08/20/20 17:59 08/16/20 17:09 Vancomycin HCl (Vanco pharmacy to dose) 1 ea DAILY PRN MISC Per rx protocol 08/15/20 15:45 09/14/20 15:44 Laboratory Tests 08/16/20 11:28: POC Whole Blood Glucose 157H 08/16/20 17:09: POC Whole Blood Glucose 150H 08/16/20 23:11: POC Whole Blood Glucose 163H 08/17/20 04:44: POC Whole Blood Glucose 118H Height (Feet): 5 Height (Inches): 4.00 Weight (Pounds): 130 General Appearance: no apparent distress, lethargic EENT: other - On simple mask Cardiovascular: normal rate Respiratory/Chest: decreased breath sounds Abdomen: distended Tino Connors MD Aug 17, 2020 10:54
--- NOTE | 2020-08-17 11:18 | NUR ---
NURSE NOTES: Gave report to Bonita at [facility], she stated that she will need to contact case filler regarding patient on 10L simple mask. Relayed update to MATTHIAS Walker.
--- NOTE | 2020-08-17 11:30 | NUR ---
NURSE NOTES: Notified Dr. Carreno that patient has O2 saturation 93% on room air, asked if it was ok for patient to be on 2L NC for discharge. awaiting callback. Addendum: 08/17/20 at 1301 by Bruce Dykes RN RN NURSE NOTES: Per MD Carreno, ok for patient to be on 2L NC for discharge.
--- NOTE | 2020-08-17 11:42 | NUR ---
*-*DISCHARGE PLANNED*-* PATIENT HAS BEEN ACCEPTED AND WILL BE DISCHARGED TO: [facility] P: [phone] FOR NURSE TO NURSE REPORT ROOM # 15.[facility] SET FOR 12PM [id number]
--- NOTE | 2020-08-17 12:30 | NUR ---
NURSE NOTES: PAtient left for [facility] with [facility] personnel in stable condition. REport given to shila at [facility]. Belongings list verified, patient information packet given to ambulance personnel.
--- NOTE | 2020-08-17 13:18 | Internal Med Progress Note ---
Subjective Date of Service: Aug 17, 2020 Physician Name Dano Groves Attending Physician Ahsan Hodges MD Allergies: Coded Allergies: No Known Allergies (Unverified , 04/30/12) ROS Limited/Unobtainable: Yes Subjective 79 YO M admitted with shortness of breath. Now pneumonia; previously COVID positive. Cover for Int med-Dr Hodges. extubated 08/09/20. S/P PEG 08/13/20 Objective Last Vital Signs Date Time Temp Pulse Resp B/P (MAP) Pulse Ox O2 Delivery O2 Flow Rate FiO2 08/17/20 09:00 Simple Mask 10.0 08/17/20 08:00 97.2 76 20 152/60 (90) 94 08/15/20 19:18 60 Laboratory Tests Test 08/16/20 17:09 08/16/20 23:11 08/17/20 04:44 POC Whole Blood Glucose 150 MG/DL (74-106) H 163 MG/DL (74-106) H 118 MG/DL (74-106) H Microbiology Date/Time Source Procedure Growth Status 08/16/20 06:10 Sputum Gram Stain - Final Resulted 08/16/20 06:10 Sputum Sputum Culture Pending Resulted 08/15/20 17:30 Blood Blood Culture - Preliminary NO GROWTH AFTER 24 HOURS Resulted 08/15/20 17:15 Blood Blood Culture - Preliminary NO GROWTH AFTER 24 HOURS Resulted Intake and Output 08/16/20 08/17/20 19:00 07:00 Intake Total 300 ml 1460 ml Output Total 300 ml 400 ml Balance 0 ml 1060 ml Free Water 200 ml IV Total 250 ml 660 ml Tube Feeding 50 ml 600 ml Output Urine Total 300 ml 400 ml # Voids 1 Objective PHYSICAL EXAMINATION: GENERAL: The patient awake with deep stimuli, open his eyes, however, cannot follow commands. The patient is on a Ventimask at this time, chronically ill-appearing. HEAD AND NECK: Pupils are equal and reactive to light. Anicteric. NECK: Supple. No JVD. LUNGS: Nasal cannula; wheezing, rhonchi, and decreased air in bases. HEART: S1, S2. Regular rhythm. Distant heart sounds. No murmur or gallop. ABDOMEN: Soft, nondistended, nontender. Positive bowel sounds. EXTREMITIES: No cyanosis, clubbing, or edema. NEUROLOGIC: Very limited secondary to the patient's status, cannot follow commands. Opens his eyes with deep stimuli and moving extremities spontaneously. Assessment/Plan Assessment/Plan ASSESSMENT: 1. Acute hypoxemic respiratory failure, most likely secondary to pneumonia and sepsis. 2. Sepsis secondary to urinary tract infection and pneumonia. 3. pneumonia=MRSA; ESBL E. coli 4. Acute kidney injury on chronic renal insufficiency. 5. Dehydration. 6. History of chronic congestive heart failure. 7. Diabetes type 2. 8. Dyslipidemia. 9. Hypertension. 10. Alzheimer's disease. 11. COVID 19 previous positive 12. Dysphagia PLAN: 1. ICU 2. Dr. Carreno,=Pulmonary Critical Care 3. Dr. Cho = Inf Dis. 4. IV= D5W due to the hypernatremia and dehydration. 5. antibiotics = meropenem; S/P micafungin and zyvox 6. Code status is full code. 7. DVT prophylaxis is heparin subcutaneous. 8. S/P PEG 08/13/20; GI=Dr Brooks 9. Discharge to [facility] today Dano Groves MD Aug 17, 2020 13:18
--- NOTE | 2020-08-19 12:45 | Discharge Summary ---
Discharge Summary Discharge Summary _ DATE OF ADMISSION: 07/03/2020 DATE OF DISCHARGE: 08/17/2020 DISCHARGED BY: Dr. Hodges REASON FOR ADMISSION: 79 years old male, resident of [facility] facility, with PMH of CVA, dysphagia, hypertension, diabetes mellitus, BPH, CKD, Alzheimer dementia, was sent for evaluation due to congestion and difficulty breathing. Patient was recently diagnosed with Covid infection in May 2020. In ER patient was found to be febrile, congested, tachycardic, and hypoxic. Patient required 100% nonrebreather mask. Laboratory work-up revealed elevated lactic acid 3.9, leukocytosis WBC 12.3 . Chest x-ray demonstrated patchy opacity in the left greater than right lower lung , may represent atelectasis on the right side and atelectasis versus pneumonia on the left. Laboratory work-up in addition showed evidence of renal failure with BUN 53, creatinine 2.4. Sodium 155. Glucose 178. Troponin was negative, pro BNP 1253. Albumin 2.6. Urinalysis revealed pyuria, moderate bacteria. EKG revealed sinus tachycardia with left anterior fascicular block, possibly motion artifact from tremors . Septic work-up initiated in emergency department . Patient subsequently admitted to direct observational unit for further management. CONSULTANTS: poly area supervisor Dr. Matt neurologist pulmonary Dr. Ryder ID specialist Dr. Ramirez GI specialist Dr. Jiménez outside plant cable engineer Dr. Connors pump technician/oncologist surgery psychiatrist HOSPITAL COURSE: [] Patient is admitted to [facility]. Supplemental oxygen provided and titrated to keep pulse oximetry above 92%. Patient was on nonrebreather mask and was able to be weaned to 50% Ventimask. Pulmonary toilet provided. Rapid COVID-19 and influenza swab were both negative. Patient was follow-up with a chest x-ray. Antibiotic provided per ID recommendation DVT prophylaxis provided. NG tube inserted for medication. Antitussive provided as needed. Strict aspiration precaution maintained. Patient developed respiratory distress and required intubation patient had difficulties to be extubated. Patient was finally extubated on 12 extubated. Supplemental oxygen provided and titrated to keep pulse oximetry above 92%. Pulmonary toilet provided. Patient is a history of COVID-19 in May 2020. Patient was treated with antibiotics for pneumonia possible aspiration. Pat ient developed new new fever and increased respiratory requirements and started on and again antibiotic on August 15. Patient initially required pressors hemodynamic status was closely monitor pressors titrated to keep mean arterial blood pressure above 65 patient was able to be weaned off pressor. Patient was also on midodrine and eventually was able to be weaned off midodrine as well blood pressure remained stable. Echocardiogram revealed preserved ejection fraction. Patient was ruled out for acute myocardial infarction. DVT and GI prophylaxis provided. Aspiration precaution maintained. Renal parameters electrolytes will be monitored electrolytes corrected as needed nephrotoxic's were avoided. Blood sugar was managed with sliding scale of insulin. Supportive care provided. Sputum last urine culture blood cultures were negative. Influenza screen test was negative. Sputum culture initially revealed MRSA. Patient was treated for pneumonia repeated sputum culture also revealed MRSA and E. coli ESBL blood culture remain negative and the last blood culture still revealed MRSA patient remained afebrile last chest x-ray revealed slightly improved aeration left lung base. ID specialist recommended antibiotics complete antibiotic at the facility continue antibiotic at the facility to complete the course patient also was on the steroids which possibly contributing to mild leukocytosis. Antitussive provided as needed. BUN from 53 down to 26, creatinine from 2.4 down to 0.9. Acute kidney injury resolved. Sodium from 155 down to normal. Acute kidney injury hyponatremia are most likely due to dehydration. Patient failed swallow evaluation. Patient subsequently undergone PEG placement on 08 13. Tube feeding formula and goal rate provided as per registered dietitian recommendation strict aspiration precaution maintained. Gifted Teacher closely followed. Patient noted to be in sinus tachycardia but no atrial fibrillation. Patient was ruled out for myocardial infarction ejection fraction echocardiogram revealed preserved ejection fraction. Sinus tachycardia was likely due to aspiration. Patient also had a long chronic of 31 beats of nonsustained ventricular tachycardia on 07 14. Gifted Teacher recommended cardiac catheterization after stabilization if able to get consent after family from family and the family agrees and respiratory stable. Patient had bradycardia and asystole while on vent likely due to respiratory failure patient had a CODE BLUE midodrine stopped. Emergency department was called physician was called on 07 17 2 electively intubate patient patient was orally intubated central line was placed to have adequate IV access. Patient required pressors FINAL DIAGNOSES: Acute hypoxemic respiratory failure requiring intubation, status post extubation Septic shock- resolved Pneumonia , possible aspiration Probable UTI Recent history of COVID-19 in May 2020 Acute kidney injury due to dehydration -resolved Acute on chronic renal failure Alzheimer dementia Hypernatremia Electrolyte imbalance Acute encephalopathy Dysphagia, status post PEG 08/13 History of CVA Sinus tachycardia , likely due to aspiration - resolved Long run of nonsustained ventricular tachycardia Diabetes mellitus Hypertension Alzheimer dementia DISCHARGE MEDICATIONS: See Medication Reconciliation list. DISCHARGE INSTRUCTIONS: Patient [facility] to the [facility] facility. Follow up with medical doctor at the facility. I have been assigned to dictate discharge summary for this account. Yari Baugh NP Aug 19, 2020 12:45
== END 2020-08-17 12:44 | DRG 870 ==
LOC: EDBD 17:05 → EMR 17:40 → 2W 18:22 → EDBEDREQ 20:21 → 2E 07-10 06:19 → 2W 07-16 18:24 → ICU 07-17 12:00 → 2W 08-10 17:06 → 4E 08-15 12:06
PROC: 0BH17EZ Insertion of Endotracheal Airway into Trachea, Via Natural or Artificial Opening (ICD-10-PCS; principal; 2020-07-17)
PROC: 5A1955Z Respiratory Ventilation, Greater than 96 Consecutive Hours (ICD-10-PCS; principal; 2020-07-17)
PROC: 06HM33Z Insertion of Infusion Device into Right Femoral Vein, Percutaneous Approach (ICD-10-PCS; principal; 2020-07-17)
PROC: B548ZZA Ultrasonography of Superior Vena Cava, Guidance (ICD-10-PCS; 2020-07-20)
PROC: 02HV33Z Insertion of Infusion Device into Superior Vena Cava, Percutaneous Approach (ICD-10-PCS; 2020-07-20)
PROC: 02HV33Z Insertion of Infusion Device into Superior Vena Cava, Percutaneous Approach (ICD-10-PCS; 2020-07-27)
PROC: 0DH63UZ Insertion of Feeding Device into Stomach, Percutaneous Approach (ICD-10-PCS; 2020-08-13)
DX: A41.02 Sepsis due to Methicillin resistant Staphylococcus aureus (principal); J96.01 Acute respiratory failure with hypoxia; J15.212 Pneumonia due to Methicillin resistant Staphylococcus aureus; R65.21 Severe sepsis with septic shock; N17.9 Acute kidney failure, unspecified; I13.0 Hypertensive heart and chronic kidney disease with heart failure and stage 1 through stage 4 chronic kidney disease, or unspecified chronic kidney disease; N39.0 Urinary tract infection, site not specified; E87.0 Hyperosmolality and hypernatremia; G93.40 Encephalopathy, unspecified; I69.320 Aphasia following cerebral infarction; I50.9 Heart failure, unspecified; E11.22 Type 2 diabetes mellitus with diabetic chronic kidney disease; N18.2 Chronic kidney disease, stage 2 (mild); Y95 Nosocomial condition; Z86.19 Personal history of other infectious and parasitic diseases; R13.10 Dysphagia, unspecified; G30.9 Alzheimer's disease, unspecified; F02.80 Dementia in other diseases classified elsewhere, unspecified severity, without behavioral disturbance, psychotic disturbance, mood disturbance, and anxiety; E86.0 Dehydration; N40.0 Benign prostatic hyperplasia without lower urinary tract symptoms; T17.990A Other foreign object in respiratory tract, part unspecified in causing asphyxiation, initial encounter
CPT/HCPCS: 36415; 36569; 36573; 71045; 74018; 76937; 80048; 80053; 80061; 80069; 80076; 80202; 81003; 82550; 82553; 82607; 82803; 82962; 82977; 83036; 83605; 83615; 83735; 83880; 84100; 84443; 84484; 84550; 85007; 85025; 85610; 85651; 85730; 86140; 86710; 86850; 86900; 86901; 86920; 87040; 87070; 87081; 87086; 87181; 87205; 93005; 93306; 94002; 94003; 94150; 94664; 96361; 96365; 96367; 99285; J0171; J1815; J7030; J8499; U0002